=== PATIENT | female | born 1960 | race American Indian/Alaskan Native ===

== ENCOUNTER 2018-03-16 09:21 | Day surgery (SDC) | payer OTHER, MEDICARE ==
[2018-03-16] MEDS ORDERED: NACL 0.9% 1000 ML 1,000 ML ONE (10:33)
[2018-03-16] MEDS ORDERED: WATER FOR IRRIG STERILE IR ONE (11:50)
[2018-03-16] MEDS ORDERED: NACL 0.9% 1000 ML 1,000 ML IV SCH (12:00)
[2018-03-16] MEDS ORDERED: DIPRIVAN 10 MG/ML IV ONE (12:18)
--- NOTE | 2018-03-16 12:22 | Anesthesia Consultation ---
Anesthesia Consult and Med Hx Date of service: 03/16/18 - Airway Anesthetic Teeth Evaluation: Good ROM Head & Neck: Adequate Mental/Hyoid Distance: Adequate Mallampati Class: Class II Intubation Access Assessment: Probably Good - Pre-Operative Health Status ASA Pre-Surgery Classification: ASA3 Proposed Anesthetic Plan: MAC - Pulmonary Hx Asthma: Yes (INHALER USED PRN/ALBUTEROL AND CYMBACORT) SOB: Yes Hx Sleep Apnea: Yes (CPAP) - Cardiovascular System Hx Hypertension: Yes Hx Heart Murmur: Yes - Central Nervous System Hx Back Pain: Yes Hx Psychiatric Problems: Yes (depression) - Hematic Hx Anemia: Yes (RESOLVED) - Other Systems Hx Alcohol Use: No Hx Substance Use: No Hx Cancer: No Hx Obesity: Yes (BMI 37.4)
--- NOTE | 2018-03-16 12:23 | Anesthesia Day of Surgery ---
Anesthesia Day of Surgery - Day of Surgery Patient Examined: Yes Patient H&P Reviewed: Yes Patient is NPO: Yes
[2018-03-16] MEDS ORDERED: HURRICAINE ONE 20% TOPICAL SPRAY MM (12:25)
[2018-03-16] MEDS ORDERED: XYLOCAINE MPF 2% ONE (12:30)
--- NOTE | 2018-03-16 13:06 | Discharge Summary ---
Providers - Providers Attending physician: BERYL DICKINSON Primary care physician: NGHIA CRUZ Hospitalization Procedures: egd Hospital course: Pt presented for an EGD and tolerated the procedure well. She was discharged home to follow up in our office. Disposition: - TO HOME OR SELFCARE Core Measure Documentation - Palliative Care Palliative Care/ Comfort Measures: Not Applicable - Core Measures Any of the following diagnoses?: none Exam - Physical Exam Narrative exam: no change from prior - Constitutional Vitals: Temp Pulse Resp BP Pulse Ox 98.2 F 77 20 126/70 97 03/16/18 12:37 03/16/18 12:52 03/16/18 12:52 03/16/18 12:52 03/16/18 12:52 Plan Follow up with: NGHIA CRUZ MD [Primary Care Provider] - 7 Days
--- NOTE | 2018-03-16 13:06 | Operative Report ---
Operative Report Operative Report: OPERATIVE REPORT - EGD DATE 03/16/18 SURGERY: Upper endoscopy. SURGEON: Dr. Estes DYE RANGE TENDER: Quirino Wynn DO PRE OP DX: GERD POST OP DX: GERD, Small hiatal hernia TYPE OF ANESTHESIA: MAC. ESTIMATED BLOOD LOSS: None. COMPLICATIONS: None. SPECIMENS REMOVED: None. FINDINGS: 1. Small hiatal hernia. 2. Otherwise, normal esophagus, stomach and first portion of duodenum. INDICATIONS:INDICATION FOR PROCEDURE: Patient is a 58-year-old female with a long history of morbid obesity. She is planned to have a weight loss procedure and is here for preoperative planning EGD. She started to have GERD like symptoms 2 years ago. She is currently a medication to help with the symptoms. the GERD started when her weight greatly increased. PROCEDURE DETAILS: After consent was reviewed, patient was taken back to the operating room where patient was placed in the left lateral decubitus position and a bite block was placed in the mouth. After a time-out was called, MAC anesthesia was initiated. I then passed the endoscope into her oropharynx, into her esophagus, visualized the entire esophagus, which was all within normal limits. I then visualized the stomach and the first portion of the duodenum and there were no abnormalities I could clearly visualize. I then retroflexed the scope in the stomach and visualized the hiatus and I could see a small hiatal hernia. I then desufflated the stomach and removed the endoscope. Patient tolerated procedure well and was transferred to recovery room in good and stable condition.
[2018-03-16 13:15] VITALS: BP 123/70
[2018-03-16] MEDS ORDERED: HURRICAINE ONE 20% TOPICAL SPRAY MM NR (18:00)
== END 2018-03-16 09:22 | disposition home or self-care (01) ==
LOC: GIO 09:21
PROVIDERS: ATTEND Specialist
DX: K44.9 Diaphragmatic hernia without obstruction or gangrene (principal); K21.9 Gastro-esophageal reflux disease without esophagitis; I10 Essential (primary) hypertension; J45.909 Unspecified asthma, uncomplicated; G47.30 Sleep apnea, unspecified; E66.01 Morbid (severe) obesity due to excess calories; F32.9 Major depressive disorder, single episode, unspecified; Z68.37 Body mass index [BMI] 37.0-37.9, adult; Z99.89 Dependence on other enabling machines and devices
CPT/HCPCS: 43235; J2704; J7030

== ENCOUNTER 2018-03-30 08:35 | Observation (INO) | payer OTHER, MEDICARE ==
[~2018-03-30 08:35] MED LIST: ANCEF/STERILE WATER 2 GM/20 ML 2 GM/20 ML SYRINGE IV NR; APRESOLINE IV PRN; FLAGYL 500 MG/100 ML 500 MG/100 ML BAG IV NR; LOVENOX SUB-Q NR; MYLICON PO PRN; NORCO PO PRN
[2018-03-30 10:14] LABS: Bilirubin,Urine NEG (Negative); Blood,Urine NEG (Negative); Color,Urine Yellow (Yellow); Mucus,Urine FEW /HPF; Protein,Urine <15 mg/dL mg/dL (Negative); Urobilinogen,Urine < 2.0 mg/dL (<2.0)
[2018-03-30] MEDS ORDERED: NACL BACTERIOSTATIC INFILTRATI ONE (10:18)
[2018-03-30] MEDS: TRANSDERM-SCOP TD SCH (10:29)
[2018-03-30] MEDS: LACTATED RINGERS 1,000 ML IV SCH ×2 (10:45→23:38)
--- NOTE | 2018-03-30 11:22 | Anesthesia Consultation ---
Anesthesia Consult and Med Hx Date of service: 03/30/18 - Airway Anesthetic Teeth Evaluation: Good ROM Head & Neck: Adequate Mental/Hyoid Distance: Adequate Mallampati Class: Class II Intubation Access Assessment: Good - Pulmonary Exam CTA: Yes - Cardiac Exam Cardiac Exam: No Murmur - Pre-Operative Health Status ASA Pre-Surgery Classification: ASA3 Proposed Anesthetic Plan: General - Pulmonary Hx Smoking: Yes (QUIT IN 1979) Hx Asthma: Yes SOB: Yes Hx Sleep Apnea: Yes - Cardiovascular System Hx Hypertension: Yes (') Hx Heart Murmur: Yes - Central Nervous System Hx Back Pain: Yes Hx Psychiatric Problems: Yes - Hematic Hx Anemia: Yes (RESOLVED) - Other Systems Hx Alcohol Use: Yes (OCCA) Hx Substance Use: No Hx Cancer: No Hx Obesity: Yes
--- NOTE | 2018-03-30 11:23 | Anesthesia Day of Surgery ---
Anesthesia Day of Surgery - Day of Surgery Patient Examined: Yes Patient H&P Reviewed: Yes Patient is NPO: Yes
[2018-03-30] MEDS ORDERED: PEPCID PO NR (12:00)
[2018-03-30] MEDS ORDERED: VERSED IV NR (12:00)
[2018-03-30] MEDS ORDERED: SUBLIMAZE ONE (12:29)
[2018-03-30] MEDS ORDERED: ZEMURON IV ONE (12:29)
[2018-03-30] MEDS ORDERED: DIPRIVAN 10 MG/ML IV ONE (12:29)
[2018-03-30] MEDS ORDERED: BLOXIVERZ ONE (12:29)
[2018-03-30] MEDS ORDERED: QUELICIN ONE (12:29)
[2018-03-30] MEDS ORDERED: DECADRON ONE (12:29)
[2018-03-30] MEDS ORDERED: ZOFRAN ONE (12:29)
[2018-03-30] MEDS ORDERED: ROBINUL ONE (12:29)
[2018-03-30] MEDS ORDERED: VERSED ONE (12:39)
[2018-03-30] MEDS ORDERED: PEPCID IV NR (13:00)
[2018-03-30] MEDS ORDERED: XYLOCAINE 1% 20 mL ONE (13:04)
[2018-03-30] MEDS ORDERED: MARCAINE 0.5% 30 ML INFILTRATI ONE (13:05)
[2018-03-30] MEDS ORDERED: NACL 0.9% IR ONE (13:46)
[2018-03-30] MEDS ORDERED: MARCAINE 0.5% INFILTRATI ONE (13:46)
[2018-03-30] MEDS ORDERED: XYLOCAINE 1% 20 mL INFILTRATI ONE (13:46)
[2018-03-30] MEDS ORDERED: ZOFRAN IV PRN (14:55)
[2018-03-30] MEDS ORDERED: DILAUDID IV PRN (14:55)
[2018-03-30] MEDS: REGLAN IV PRN (15:00)
[2018-03-30] MEDS ORDERED: ATIVAN PO PRN (16:38)
[2018-03-30] MEDS: DILAUDID IV PRN ×2 (18:55→23:57)
[2018-03-30] MEDS: ZOFRAN IV PRN (18:55)
[2018-03-30] MEDS: TORADOL IV SCH ×4 (19:06→23:42)
[2018-03-30] MEDS: MORPHINE IV PRN (21:55)
[2018-03-30] MEDS: NEURONTIN PO SCH (21:55)
[2018-03-30] MEDS: WELLBUTRIN PO SCH (21:55)
[2018-03-30] MEDS: PULMICORT IH SCH (21:59)
[2018-03-31] MEDS: TORADOL IV SCH ×3 (02:00→12:10)
[2018-03-31] MEDS: LACTATED RINGERS 1,000 ML IV SCH ×2 (05:40→20:27)
[2018-03-31] MEDS: ZOFRAN IV PRN ×2 (05:40→13:14)
[2018-03-31] MEDS: PULMICORT IH SCH ×2 (08:13→20:27)
[2018-03-31 08:21] LABS: Basophils % (Auto) 0.4 % (0.0-1.8); Eosinophils % (Auto) 0.1 % (0.0-4.3); Hematocrit 33.4 % (30.3-42.9); Hemoglobin 11.2 gm/dl (10.1-14.3); Lymphocytes # (Auto) 1.8 K/mm3 (1.2-5.4); Lymphocytes % (Auto) 20.3 % (13.4-35.0); Mean Corpuscular HGB Conc 33 % (30-34); Mean Corpuscular Hemoglobin 29 pg (28-32); Mean Corpuscular Volume 86 fl (79-97); Monocytes # (Auto) 0.6 K/mm3 (0.0-0.8); Monocytes % (Auto) 7.3 % (0.0-7.3); Platelet Count 253 K/mm3 (140-440); Red Blood Count 3.86 M/mm3 (3.65-5.03); Red Cell Distribution Width 14.3 % (13.2-15.2)
[2018-03-31 08:30] LABS: BUN/Creatinine Ratio 16; Blood Urea Nitrogen 11 mg/dL (7-17); Calcium 8.8 mg/dL (8.4-10.2); Hemolysis Index 5
[2018-03-31] MEDS: NEURONTIN PO SCH ×3 (08:45→22:52)
[2018-03-31] MEDS: WELLBUTRIN PO SCH (13:17)
[2018-03-31] MEDS: DIOVAN PO SCH (13:32)
[2018-03-31] MEDS: LOVENOX SUB-Q SCH (13:32)
[2018-03-31] MEDS: NORVASC PO SCH (13:32)
--- NOTE | 2018-03-31 17:58 | Progress Note ---
Assessment and Plan 58 y.o. s/p lap sleeve gastrectomy with hiatal hernia repair POD 1 Nausea preventing PO intake. - continue zofran and reglan Pain control GI and DVT proph Subjective Narrative: Pt had an episode of vomiting. She continues to feel nauseas throughout the day. Her abdominal pain is somewhat improved with pain medication. She is ambulating. Objective Vital Signs - 12hr 03/31/18 03/31/18 03/31/18 07:13 08:00 08:14 Temperature 98.6 F Pulse Rate 89 Pulse Rate [ 85 85 Anterior Bilateral Upper Lobe] Respiratory 20 Rate Respiratory 19 18 Rate [Anterior Bilateral Upper Lobe] Blood Pressure 124/72 Blood Pressure [Left] O2 Sat by Pulse 97 97 Oximetry 03/31/18 03/31/18 11:19 17:11 Temperature 98.1 F 98.6 F Pulse Rate 78 82 Pulse Rate [ Anterior Bilateral Upper Lobe] Respiratory 20 20 Rate Respiratory Rate [Anterior Bilateral Upper Lobe] Blood Pressure 137/85 Blood Pressure 114/60 [Left] O2 Sat by Pulse 97 98 Oximetry - General physical appearance Narrative Exam: Gen: A+Ox3 Cardio RRR Lung: Equal rise and fall of chest abd: soft tender at incision sites. dressings minimal blood tinged. no rebound no guarding. - Labs 03/31/18 07:37 03/31/18 07:20 Diabetes panel 03/31/18 Range/Units 07:20 Sodium 146 H (137-145) mmol/L Potassium 3.8 (3.6-5.0) mmol/L Chloride 107.6 H (98-107) mmol/L Carbon Dioxide 23 (22-30) mmol/L BUN 11 (7-17) mg/dL Creatinine 0.7 (0.7-1.2) mg/dL Glucose 91 (65-100) mg/dL Calcium 8.8 (8.4-10.2) mg/dL Calcium panel 03/31/18 Range/Units 07:20 Calcium 8.8 (8.4-10.2) mg/dL Pituitary panel 03/31/18 Range/Units 07:20 Sodium 146 H (137-145) mmol/L Potassium 3.8 (3.6-5.0) mmol/L Chloride 107.6 H (98-107) mmol/L Carbon Dioxide 23 (22-30) mmol/L BUN 11 (7-17) mg/dL Creatinine 0.7 (0.7-1.2) mg/dL Glucose 91 (65-100) mg/dL Calcium 8.8 (8.4-10.2) mg/dL Adrenal panel 03/31/18 Range/Units 07:20 Sodium 146 H (137-145) mmol/L Potassium 3.8 (3.6-5.0) mmol/L Chloride 107.6 H (98-107) mmol/L Carbon Dioxide 23 (22-30) mmol/L BUN 11 (7-17) mg/dL Creatinine 0.7 (0.7-1.2) mg/dL Glucose 91 (65-100) mg/dL Calcium 8.8 (8.4-10.2) mg/dL
[2018-03-31] MEDS: DILAUDID IV PRN (20:26)
[2018-04-01] MEDS: MORPHINE IV PRN ×3 (00:16→22:00)
[2018-04-01] MEDS: REGLAN IV PRN ×2 (00:20→22:08)
[2018-04-01] MEDS: WELLBUTRIN PO SCH ×3 (03:53→21:59)
[2018-04-01] MEDS: LACTATED RINGERS 1,000 ML IV SCH (04:49)
[2018-04-01] MEDS: TYLENOL #3 PO PRN ×2 (06:26→09:51)
[2018-04-01] MEDS: ZOFRAN IV PRN ×2 (06:26→09:51)
[2018-04-01 07:27] LABS: Basophils % (Auto) 0.2 % (0.0-1.8); Eosinophils % (Auto) 0.2 % (0.0-4.3); Hemoglobin 11.7 gm/dl (10.1-14.3); Lymphocytes # (Auto) 2.5 K/mm3 (1.2-5.4); Lymphocytes % (Auto) 21.9 % (13.4-35.0); Mean Corpuscular HGB Conc 34 % (30-34); Mean Corpuscular Hemoglobin 29 pg (28-32); Mean Corpuscular Volume 86 fl (79-97); Monocytes # (Auto) 0.8 K/mm3 (0.0-0.8); Monocytes % (Auto) 6.6 % (0.0-7.3); Platelet Count 257 K/mm3 (140-440); Red Blood Count 4.09 M/mm3 (3.65-5.03); Red Cell Distribution Width 14.4 % (13.2-15.2)
[2018-04-01 07:44] LABS: BUN/Creatinine Ratio 10; Blood Urea Nitrogen 8 mg/dL (7-17); Calcium 8.7 mg/dL (8.4-10.2); Hemolysis Index 0
[2018-04-01] MEDS: PULMICORT IH SCH ×2 (08:57→21:17)
--- NOTE | 2018-04-01 09:04 | Progress Note ---
Assessment and Plan 58 y.o. s/p lap sleeve gastrectomy with hiatal hernia repair POD 2 Nausea preventing PO intake. - continue zofran and reglan Febrile with abdominal pain- blood and urine culture. Ct abd/pelvis with PO and IV contrast: r/o leak, or possible thrombosis of vein Pain control - IV meds and tylenol #3 GI and DVT proph Subjective Narrative: Pt continues to have nausea and is not tolerating liquids. She has umbilical pain and epigastric pain. The pain medication improves the pain minimally. She had a fever overnight of 101.2. She states she does not feel well. Objective Vital Signs - 12hr 03/31/18 03/31/18 04/01/18 22:00 22:56 00:10 Temperature 97.8 F 98.2 F Pulse Rate 90 78 Pulse Rate [ 89 Left Radial] Respiratory 17 17 17 Rate Respiratory 18 Rate [Abdomen] Blood Pressure 150/81 165/78 [Left] O2 Sat by Pulse 97 96 Oximetry 04/01/18 04/01/18 04/01/18 00:16 00:46 06:19 Temperature 101.2 F H Pulse Rate 100 H Pulse Rate [ Left Radial] Respiratory 17 17 17 Rate Respiratory Rate [Abdomen] Blood Pressure 143/71 [Left] O2 Sat by Pulse 96 Oximetry 04/01/18 04/01/18 06:26 07:26 Temperature Pulse Rate Pulse Rate [ Left Radial] Respiratory 17 17 Rate Respiratory Rate [Abdomen] Blood Pressure [Left] O2 Sat by Pulse Oximetry - General physical appearance well developed, well nourished, no distress - Respiratory normal expansion, normal respiratory effort - Abdomen soft, other (tender at incision sites. obese, soft, dressings- clean and dry. no rebound no guarding ) - Integumentary no rash, no growths - Neurologic normal coordination, normal sensation - Musculoskeletal normal posture - Psychiatric oriented to time, oriented to person, oriented to place - Labs 04/01/18 07:00 04/01/18 07:00 Diabetes panel 04/01/18 Range/Units 07:00 Sodium 141 (137-145) mmol/L Potassium 3.6 (3.6-5.0) mmol/L Chloride 100.1 (98-107) mmol/L Carbon Dioxide 24 (22-30) mmol/L BUN 8 (7-17) mg/dL Creatinine 0.8 (0.7-1.2) mg/dL Glucose 85 (65-100) mg/dL Calcium 8.7 (8.4-10.2) mg/dL Calcium panel 04/01/18 Range/Units 07:00 Calcium 8.7 (8.4-10.2) mg/dL Pituitary panel 04/01/18 Range/Units 07:00 Sodium 141 (137-145) mmol/L Potassium 3.6 (3.6-5.0) mmol/L Chloride 100.1 (98-107) mmol/L Carbon Dioxide 24 (22-30) mmol/L BUN 8 (7-17) mg/dL Creatinine 0.8 (0.7-1.2) mg/dL Glucose 85 (65-100) mg/dL Calcium 8.7 (8.4-10.2) mg/dL Adrenal panel 04/01/18 Range/Units 07:00 Sodium 141 (137-145) mmol/L Potassium 3.6 (3.6-5.0) mmol/L Chloride 100.1 (98-107) mmol/L Carbon Dioxide 24 (22-30) mmol/L BUN 8 (7-17) mg/dL Creatinine 0.8 (0.7-1.2) mg/dL Glucose 85 (65-100) mg/dL Calcium 8.7 (8.4-10.2) mg/dL
[2018-04-01] MEDS: DIOVAN PO SCH (09:50)
[2018-04-01] MEDS: NEURONTIN PO SCH ×3 (09:50→22:00)
[2018-04-01] MEDS: NORVASC PO SCH ×2 (09:52→09:53)
[2018-04-01] MEDS: LOVENOX SUB-Q SCH (09:54)
--- NOTE | 2018-04-01 17:18 | Cat Scan Report ---
FINAL REPORT EXAM: CT ABDOMEN PELVIS W CON HISTORY: fever nausea after sleeve gastrectomy 03/30 TECHNIQUE: Spiral CT scanning of the abdomen and pelvis after the uneventful administration of IV contrast. Multiplanar reformations. 3D image post-procesessing was performed on an independent work station. PRIORS: None. FINDINGS: Abdomen: Visualized lung bases show mild atelectatic change or scarring bilaterally and minimal left pleural fluid. Postsurgical changes in left upper quadrant around the stomach, including a few, small gas locules and some residual mesenteric fat stranding or edema. Probable postsurgical change or residual also noted in the anterior abdominal wall, including umbilical region. No radiopaque gallstones. Liver mildly enlarged and shows some decreased attenuation without focal abnormality. Spleen without significant abnormality. Pancreas without significant abnormality. Kidneys without significant abnormality. Adrenal glands without significant abnormality. Pelvis: Diverticular change in the sigmoid colon. Remainder of visualized bowel grossly unremarkable. Appendix within normal limits. Trace amount of nonspecific, free fluid in the pelvis. No discrete abscess. Abdominal aorta non-aneurysmal. Degenerative change in the thoracic spine. Postsurgical changes in lumbosacral spine. IMPRESSION: 1. Postsurgical changes compatible with status post recent gastrectomy. No discrete abscess. 2. Findings compatible with mild hepatomegaly and fatty infiltration in the liver. 3. Sigmoid colon diverticulosis.
[2018-04-01 18:29] LABS: Bilirubin,Urine NEG (Negative); Blood,Urine SM (Negative); Color,Urine Yellow (Yellow); Protein,Urine <15 mg/dL mg/dL (Negative)
[2018-04-02] MEDS: MORPHINE IV PRN ×3 (06:29→15:40)
[2018-04-02] MEDS: TRANSDERM-SCOP TD SCH (06:29)
[2018-04-02] MEDS: PULMICORT IH SCH (07:56)
[2018-04-02 08:20] LABS: Basophils # (Auto) 0.1 K/mm3 (0.0-0.1); Basophils % (Auto) 0.8 % (0.0-1.8); Eosinophils # (Auto) 0.1 K/mm3 (0.0-0.4); Eosinophils % (Auto) 0.5 % (0.0-4.3); Hematocrit 37.4 % (30.3-42.9); Hemoglobin 12.5 gm/dl (10.1-14.3); Lymphocytes # (Auto) 2.3 K/mm3 (1.2-5.4); Lymphocytes % (Auto) 18.1 % (13.4-35.0); Mean Corpuscular HGB Conc 33 % (30-34); Mean Corpuscular Hemoglobin 29 pg (28-32); Mean Corpuscular Volume 87 fl (79-97); Monocytes # (Auto) 0.7 K/mm3 (0.0-0.8); Monocytes % (Auto) 5.6 % (0.0-7.3); Platelet Count 268 K/mm3 (140-440); Red Blood Count 4.33 M/mm3 (3.65-5.03); Red Cell Distribution Width 14.3 % (13.2-15.2)
[2018-04-02 08:39] LABS: BUN/Creatinine Ratio 11; Blood Urea Nitrogen 9 mg/dL (7-17); Calcium 9.1 mg/dL (8.4-10.2); Hemolysis Index 23
[2018-04-02] MEDS: NORVASC PO SCH (10:41)
[2018-04-02] MEDS: DIOVAN PO SCH (10:41)
[2018-04-02] MEDS: LOVENOX SUB-Q SCH (10:42)
[2018-04-02] MEDS: ZOFRAN IV PRN (10:42)
[2018-04-02] MEDS: WELLBUTRIN PO SCH (10:43)
[2018-04-02] MEDS: NEURONTIN PO SCH ×2 (10:55→15:41)
--- NOTE | 2018-04-02 12:38 | Progress Note ---
Assessment and Plan 58 y.o. s/p lap sleeve gastrectomy with hiatal hernia repair POD 2=3 Nausea improved continue with. zofran and reglan Febrile with abdominal pain- blood and urine culture. Ct abd/pelvis with PO and IV contrast: r/o leak, or possible thrombosis of vein--> no leak. no acute findings. Small bubbles at sleeve typically seen during this post operative time frame. Pt has been afrebrile. Leukocytosis likely post operative . Pain control - IV meds and tylenol #3 GI and DVT proph If pt tolerating liquids and remains afebrile this afternoon she will be discharged today. Subjective Narrative: Pt is feeling better compared to yesterday. She has nausea but improved. She is tolerating liquids. Denies vomiting. +flatus. no fever overnight. +ambulation. abd pain continues but improved compared to prior Objective Vital Signs - 12hr 04/02/18 04/02/18 04/02/18 03:54 07:57 07:58 Temperature 98.4 F Pulse Rate 99 H Pulse Rate [ 95 H Anterior Bilateral Upper Lobe] Respiratory 20 Rate Respiratory 19 Rate [Anterior Bilateral Upper Lobe] Blood Pressure 111/70 O2 Sat by Pulse 100 99 Oximetry 04/02/18 04/02/18 08:39 10:42 Temperature 99.2 F Pulse Rate 102 H Pulse Rate [ Anterior Bilateral Upper Lobe] Respiratory 16 18 Rate Respiratory Rate [Anterior Bilateral Upper Lobe] Blood Pressure 131/72 O2 Sat by Pulse 97 Oximetry - General physical appearance well developed, well nourished, no distress - Respiratory normal expansion, normal respiratory effort - Abdomen soft, other (tender at incision sites. dressings cdi. no rebound no guarding soft ) - Integumentary no rash, no growths - Neurologic normal coordination, normal sensation - Musculoskeletal normal gait, normal posture - Psychiatric oriented to time, oriented to person, oriented to place, speech is normal - Additional Exam LE: no edema cyanosis or clubbing - Labs 04/02/18 07:58 04/02/18 07:58 Diabetes panel 04/02/18 Range/Units 07:58 Sodium 139 (137-145) mmol/L Potassium 3.8 (3.6-5.0) mmol/L Chloride 98.3 (98-107) mmol/L Carbon Dioxide 20 L (22-30) mmol/L BUN 9 (7-17) mg/dL Creatinine 0.8 (0.7-1.2) mg/dL Glucose 63 L (65-100) mg/dL Calcium 9.1 (8.4-10.2) mg/dL Calcium panel 04/02/18 Range/Units 07:58 Calcium 9.1 (8.4-10.2) mg/dL Pituitary panel 04/02/18 Range/Units 07:58 Sodium 139 (137-145) mmol/L Potassium 3.8 (3.6-5.0) mmol/L Chloride 98.3 (98-107) mmol/L Carbon Dioxide 20 L (22-30) mmol/L BUN 9 (7-17) mg/dL Creatinine 0.8 (0.7-1.2) mg/dL Glucose 63 L (65-100) mg/dL Calcium 9.1 (8.4-10.2) mg/dL Adrenal panel 04/02/18 Range/Units 07:58 Sodium 139 (137-145) mmol/L Potassium 3.8 (3.6-5.0) mmol/L Chloride 98.3 (98-107) mmol/L Carbon Dioxide 20 L (22-30) mmol/L BUN 9 (7-17) mg/dL Creatinine 0.8 (0.7-1.2) mg/dL Glucose 63 L (65-100) mg/dL Calcium 9.1 (8.4-10.2) mg/dL
[2018-04-02] MEDS: REGLAN IV PRN (15:39)
--- NOTE | 2018-04-02 17:38 | Discharge Summary ---
Providers - Providers Date of Admission: 03/30/18 15:47 Attending physician: BERYL ESTES Primary care physician: NGHIA CRUZ Hospitalization Procedures: laparoscopic sleeve gastrectomy with hiatal hernia repair Hospital course: 58 y.o. F admitted to the hospital for bariatric surgery. She underwent a lap sleeve gastrectomy with hiatal hernia repair and tolerated the procedure well. On pod 1 she had severe nausea that prevented her from being discharged. On POD 2 her nausea improved but she had a fever. Blood and urine cultures were sent. A ct abd/pelvis did not show a leak or other acute issues. On POD 3 she felt much better. Her nausea was controllable with medication and she was tolerating liquids. She denied any vomiting or fever on day of discharge. She was afebrile for 12-24hrs prior to discharge. She ambulated well. She understands to keep using the IS as an oupt. Source of fever likely actelectasis as depicted on the CT . Disposition: DC-01 TO HOME OR SELFCARE Core Measure Documentation - Palliative Care Palliative Care/ Comfort Measures: Not Applicable - Core Measures Any of the following diagnoses?: none Exam - Physical Exam Narrative exam: gen: A+Ox 3 Cardio RRR Lungs Shallow breath, equal bl abd: soft, obese, tender at incision sites no rebound no guarding. ext: no c/c/e - Constitutional Vitals: Temp Pulse Resp BP Pulse Ox 98.3 F 103 H 18 123/79 97 04/02/18 12:34 04/02/18 12:34 04/02/18 15:40 04/02/18 12:34 04/02/18 12:34 Plan Activity: other (no lifting >15lbs for 6 weeks ) Diet: clear liquids Wound: keep clean and dry Additional Instructions: Follow up with Dr. Estes in the office. Goal fluid intake is 64 oz. Goal protein intake is 60g. Walk often. Continue to use incentive spirometer at home. use tyelnol # 3 for pain. If you need additional pain meds please contact your primary care doctor. If your abdominal pain is severe and does not improve call Dr. Estes's office. Follow up with: NGHIA CRUZ MD [Primary Care Provider] - 7 Days
[2018-04-02 18:27] VITALS: BP 153/77
== END 2018-04-02 20:25 | disposition home or self-care (01) ==
LOC: OR 08:35 → INTOOBSV 15:47 → 3B-SURG 15:47
PROVIDERS: ADMIT Specialist; ATTEND Specialist
DX: E66.01 Morbid (severe) obesity due to excess calories (principal); K44.9 Diaphragmatic hernia without obstruction or gangrene; J45.30 Mild persistent asthma, uncomplicated; K21.9 Gastro-esophageal reflux disease without esophagitis; I10 Essential (primary) hypertension; G47.33 Obstructive sleep apnea (adult) (pediatric); Z68.32 Body mass index [BMI] 32.0-32.9, adult
CPT/HCPCS: 36415; 43281; 43775; 74177; 80048; 81001; 83735; 85025; 87040; 87086; 88307; 94640; 94760; 96372; 96374; 96375; 96376; G0378; J0330; J0360; J0690; J1100; J1170; J1650; J2250; J2270; J2405; J2704; J2710; J2765; J3010; J7120; Q9967

== ENCOUNTER 2018-04-07 08:37 | Inpatient (IN) | payer OTHER, MEDICARE ==
[2018-04-07] MEDS ORDERED: NACL 0.9% 500 ML 500 ML IV ONE (09:17)
[2018-04-07 10:13] LABS: Hematocrit 38.8 % (30.3-42.9); Hemoglobin 13.1 gm/dl (10.1-14.3); Mean Corpuscular HGB Conc 34 % (30-34); Mean Corpuscular Hemoglobin 28 pg (28-32); Mean Corpuscular Volume 84 fl (79-97); Red Blood Count 4.61 M/mm3 (3.65-5.03); Red Cell Distribution Width 14.1 % (13.2-15.2)
--- NOTE | 2018-04-07 10:13 | XRay Report ---
PORTABLE CHEST INDICATION: Chest, abdomen pain. Possible sepsis. Gastric sleeve 03/30/2018 COMPARISON: None similar. FINDINGS: Portable, frontal chest radiograph demonstrates mild exaggerated cardiomediastinal silhouette. Slight patient rotation to the right. Slight bibasilar atelectasis. Otherwise clear lungs. Left sided battery pack with a single stimulator lead extending to the left lower neck. Few radiopaque dental fillings. EKG leads. Few bony degenerative changes. CONCLUSION: No significant acute chest process, as described. Thank you for the opportunity to participate in this patient's care.
[2018-04-07 10:14] LABS: Platelet Count 394 K/mm3 (140-440)
[2018-04-07 10:21] LABS: INR 0.98 (0.87-1.13)
[2018-04-07 10:38] LABS: Alanine Aminotransferase 29 units/L (7-56); Albumin 3.6 g/dL (3.9-5); BUN/Creatinine Ratio 14; Blood Urea Nitrogen 13 mg/dL (7-17); Calcium 8.8 mg/dL (8.4-10.2); Hemolysis Index 14
[2018-04-07] MEDS ORDERED: REGLAN IV ONE (10:45)
[2018-04-07] MEDS ORDERED: MORPHINE IV ONE (10:45)
[2018-04-07] MEDS ORDERED: VANCOMYCIN/NS 1 GM/250 ML 1 GM/250 ML BAG IV ONE (10:48)
[2018-04-07] MEDS ORDERED: NACL 0.9% 1000 ML 1,000 ML IV ONE (10:49)
[2018-04-07 10:57] LABS: Band Neutrophils # (Manual) 1.1 K/mm3; Basophils % (Manual) 0 % (0.0-1.8); Eosinophils % (Manual) 0 % (0.0-4.3); Total Cells Counted 100
[2018-04-07 10:58] LABS: Platelet Estimate Cons; RBC Morphology Normal
[2018-04-07] MEDS ORDERED: VANCOMYCIN PHARMACY TO DOSE IV SCH (11:00)
--- NOTE | 2018-04-07 11:36 | Emergency Department Report ---
ED Abdominal Pain HPI - General Chief Complaint: Abdominal Pain Stated Complaint: FEVER, UPSET STOMACH, AND WEAKNESS Time Seen by Provider: 04/07/18 10:24 Source: patient Mode of arrival: Ambulatory Limitations: No Limitations - History of Present Illness MD Complaint: abdominal pain -: days(s) (1) Location: diffuse Radiation: chest (left chest) Migration to: no migration Severity: mild Severity scale (0 -10): 3 Quality: aching Consistency: intermittent Improves With: nothing Worsens With: eating (reports that she experienced the pain after eating a piece of cheese yesterday at approximately 1800. Reports recent post-op gastric band by Dr. Wynn surgery) Context: other (first time eating solid foods. Reports after surgery for the gastric band she did develop fever and was treated in the hospital for fever post-op. Reports that she had a fever yesterday Tmax approximately 102F. Reports that she tolerated broth and full liquid diet before discharge from the hospital. ) Associated Symptoms: nausea, vomiting, fever. denies: constipation, dysuria, hematemesis, hematochezia, melena, hematuria, syncope - Related Data Home Medications Medication Instructions Recorded Confirmed Last Taken Budesonide/Formoterol Fumarate 2 puff INHALATION BID 03/26/18 04/07/18 03/26/18 [Symbicort 160-4.5 Mcg Inhaler] Bupropion HCl [Wellbutrin XL] 300 mg PO QAM 03/26/18 04/07/18 03/28/18 Gabapentin [Neurontin] 400 mg PO TID 03/26/18 04/07/18 03/29/18 LORazepam [Ativan] 1 mg PO BID PRN 03/26/18 04/07/18 03/29/18 Linaclotide [Linzess] 145 mcg PO QAM 03/26/18 04/07/18 03/29/18 Dexlansoprazole (Cecilia) [Dexilant 60 mg PO QAM 03/30/18 04/07/18 03/28/18 (Cecilia)] HYDROcodone/APAP 7.5-325 [Ellery 1 each PO Q12H PRN 04/07/18 04/07/18 Unknown 7.5/325] Allergies Allergy/AdvReac Type Severity Reaction Status Date / Time No Known Allergies Allergy Unverified 03/16/18 11:09 ED Review of Systems ROS: Stated complaint: FEVER, UPSET STOMACH, AND WEAKNESS Other details as noted in HPI Other: GENERAL: fever SKIN: No changes in skin or hair, no itching, no rashes, no jaundice HEAD: No trauma, headache, or visual changes EYES: No blurriness, tearing, itching, acute visual loss, conjunctival discoloration, or scleral icterus EARS: No hearing loss, tinnitus, vertigo, or earache NOSE: No rhinorrhea, stuffiness, sneezing, itching, or epistaxis MOUTH: No bleeding gums, hoarseness, sore throat, or swelling CARDIAC: chest pain that traveled up by her left shoulder RESPIRATORY: shortness of breath GI: nausea, vomiting, abdominal pain URINARY: No frequency, urgency, polyuria, dysuria, hematuria, or incontinence MUSCULOSKELETAL: No muscle weakness, joint stiffness, decrease in range of motion, redness, swelling NEUROLOGIC: No loss of sensation, numbness, tingling, tremors, weakness, paralysis, seizures HEMATOLOGIC: No anemia, easy bruising, bleeding, petechiae, or purpura ENDOCRINE: No hot or cold intolerance, sweating, polyuria, polydipsia or, polyphagia no thyroid problems ED Past Medical Hx - Past Medical History Previous Medical History?: Yes Hx Hypertension: Yes Hx GERD: Yes Hx Arthritis: Yes (KNEES AND BACK) Hx Asthma: Yes (INHALER USED PRN/ALBUTEROL AND CYMBACORT) Hx HIV: No - Surgical History Past Surgical History?: Yes Additional Surgical History: Gastric sleeve, Hysterectomy, left and right knee replacement. right hand carpel tulnnel release - Social History Smoking Status: Former Smoker Substance Use Type: Alcohol, Prescribed - Medications Home Medications: Home Medications Medication Instructions Recorded Confirmed Last Taken Type Budesonide/Formoterol Fumarate 2 puff INHALATION BID 03/26/18 04/07/18 03/26/18 History [Symbicort 160-4.5 Mcg Inhaler] Bupropion HCl [Wellbutrin XL] 300 mg PO QAM 03/26/18 04/07/18 03/28/18 History Gabapentin [Neurontin] 400 mg PO TID 03/26/18 04/07/18 03/29/18 History LORazepam [Ativan] 1 mg PO BID PRN 03/26/18 04/07/18 03/29/18 History Linaclotide [Linzess] 145 mcg PO QAM 03/26/18 04/07/18 03/29/18 History Dexlansoprazole (Nf) [Dexilant 60 mg PO QAM 03/30/18 04/07/18 03/28/18 History (Cecilia)] HYDROcodone/APAP 7.5-325 [Ellery 1 each PO Q12H PRN 04/07/18 04/07/18 Unknown History 7.5/325] ED Physical Exam - General Limitations: No Limitations - Other Other exam information: GENERAL: Patient in no acute distress HEAD: Normocephalic, atraumatic EYES: PERRLA, EOM intact, no scleral icterus, visual montgomery and acuity wnl NOSE: No tenderness, discharge, sinus tenderness MOUTH: No erythema, bleeding, exudate HEART: tachycardia LUNGS: bilateral breath sounds. No wheezing, rales, rhonchi ABDOMEN: soft, mild tenderness RUQ and epigastric region MUSCULOSKELETAL: Normal joint range of motion, no redness, no swelling, no tenderness NEUROLOGIC: GCS 15, Alert and Oriented x3, Cranial nerves intact, normal sensation, normal strength, normal gait, no cerebellar deficit SKIN: Skin is warm and dry, no rashes, surgical incisions healing well ED Course Vital Signs 04/07/18 04/07/18 04/07/18 09:13 09:26 09:30 Temperature 98.4 F Pulse Rate 120 H 120 H 111 H Respiratory 22 29 H Rate Blood Pressure 97/60 106/65 O2 Sat by Pulse 95 92 94 Oximetry 04/07/18 04/07/18 04/07/18 09:46 10:00 10:16 Temperature Pulse Rate 106 H 107 H 109 H Respiratory 29 H 29 H 30 H Rate Blood Pressure 114/57 114/57 114/57 O2 Sat by Pulse 94 91 93 Oximetry 04/07/18 04/07/18 04/07/18 10:41 10:42 10:46 Temperature Pulse Rate 109 H 106 H Respiratory 29 H 18 29 H Rate Blood Pressure 114/57 114/57 O2 Sat by Pulse 94 94 Oximetry 04/07/18 04/07/18 04/07/18 11:00 11:16 11:30 Temperature Pulse Rate 106 H 106 H 106 H Respiratory 32 H 27 H 29 H Rate Blood Pressure 120/60 120/60 112/67 O2 Sat by Pulse 92 93 91 Oximetry 04/07/18 04/07/18 04/07/18 11:46 12:00 12:15 Temperature Pulse Rate 105 H 105 H 106 H Respiratory 28 H 34 H 30 H Rate Blood Pressure 112/67 112/67 112/67 O2 Sat by Pulse 94 95 96 Oximetry 04/07/18 04/07/18 04/07/18 12:30 12:46 13:00 Temperature Pulse Rate 106 H 109 H 107 H Respiratory 30 H 29 H 31 H Rate Blood Pressure 112/61 112/61 128/62 O2 Sat by Pulse 95 95 96 Oximetry 04/07/18 04/07/18 04/07/18 13:16 14:54 15:00 Temperature Pulse Rate 111 H 117 H 115 H Respiratory 28 H 19 32 H Rate Blood Pressure 128/62 137/68 149/71 O2 Sat by Pulse 95 94 94 Oximetry 04/07/18 04/07/18 04/07/18 15:16 15:30 15:46 Temperature Pulse Rate 120 H 121 H 121 H Respiratory 40 H 33 H 29 H Rate Blood Pressure 149/71 161/71 161/71 O2 Sat by Pulse 95 96 94 Oximetry ED Medical Decision Making - Lab Data Result diagrams: 04/07/18 09:41 04/07/18 09:41 Laboratory Results - last 24 hr 04/07/18 04/07/18 04/07/18 09:41 09:41 09:41 WBC 21.3 H RBC 4.61 Hgb 13.1 Hct 38.8 MCV 84 MCH 28 MCHC 34 RDW 14.1 Plt Count 394 Add Manual Diff Complete Total Counted 100 Seg Neuts % (Manual) 85.0 H Band Neutrophils % 5.0 Lymphocytes % (Manual) 4.0 L Reactive Lymphs % (Man) 0 Monocytes % (Manual) 5.0 Eosinophils % (Manual) 0 Basophils % (Manual) 0 Metamyelocytes % 1.0 Myelocytes % 0 Promyelocytes % 0 Blast Cells % 0 Nucleated RBC % Not Reportable Seg Neutrophils # Man 18.1 H Band Neutrophils # 1.1 Lymphocytes # (Manual) 0.9 L Abs React Lymphs (Man) 0.0 Monocytes # (Manual) 1.1 H Eosinophils # (Manual) 0.0 Basophils # (Manual) 0.0 Metamyelocytes # 0.2 Myelocytes # 0.0 Promyelocytes # 0.0 Blast Cells # 0.0 WBC Morphology Not Reportable Hypersegmented Neuts Not Reportable Hyposegmented Neuts Not Reportable Hypogranular Neuts Not Reportable Smudge Cells Not Reportable Toxic Granulation Not Reportable Toxic Vacuolation Not Reportable Dohle Bodies Not Reportable Pelger-Huet Anomaly Not Reportable Narendra Rods Not Reportable Platelet Estimate Cons Clumped Platelets Not Reportable Plt Clumps, EDTA Not Reportable Large Platelets Not Reportable Giant Platelets Not Reportable Platelet Satelliting Not Reportable Plt Morphology Comment Not Reportable RBC Morphology Normal Dimorphic RBCs Not Reportable Polychromasia Not Reportable Hypochromasia Not Reportable Poikilocytosis Not Reportable Anisocytosis Not Reportable Microcytosis Not Reportable Macrocytosis Not Reportable Spherocytes Not Reportable Pappenheimer Bodies Not Reportable Sickle Cells Not Reportable Target Cells Not Reportable Tear Drop Cells Not Reportable Ovalocytes Not Reportable Helmet Cells Not Reportable Queen-[place] Bodies Not Reportable Bryan Rings Not Reportable [place]kin[place] Cells Not Reportable Bite Cells Not Reportable Crenated Cell Not Reportable Elliptocytes Not Reportable Acanthocytes (Spur) Not Reportable Rouleaux Not Reportable Hemoglobin C Crystals Not Reportable Schistocytes Not Reportable Malaria parasites Not Reportable Giorgio Bodies Not Reportable Hem Pathologist Commnt No PT 13.5 INR 0.98 APTT VBG pH Sodium 138 Potassium 3.3 L Chloride 95.1 L Carbon Dioxide 21 L Anion Gap 25 BUN 13 Creatinine 0.9 Estimated GFR > 60 BUN/Creatinine Ratio 14 Glucose 113 H Lactic Acid Calcium 8.8 Total Bilirubin 0.40 AST 20 ALT 29 Alkaline Phosphatase 114 Troponin T Total Protein 7.6 Albumin 3.6 L Albumin/Globulin Ratio 0.9 04/07/18 04/07/18 04/07/18 09:41 09:41 09:41 WBC RBC Hgb Hct MCV MCH MCHC RDW Plt Count Add Manual Diff Total Counted Seg Neuts % (Manual) Band Neutrophils % Lymphocytes % (Manual) Reactive Lymphs % (Man) Monocytes % (Manual) Eosinophils % (Manual) Basophils % (Manual) Metamyelocytes % Myelocytes % Promyelocytes % Blast Cells % Nucleated RBC % Seg Neutrophils # Man Band Neutrophils # Lymphocytes # (Manual) Abs React Lymphs (Man) Monocytes # (Manual) Eosinophils # (Manual) Basophils # (Manual) Metamyelocytes # Myelocytes # Promyelocytes # Blast Cells # WBC Morphology Hypersegmented Neuts Hyposegmented Neuts Hypogranular Neuts Smudge Cells Toxic Granulation Toxic Vacuolation Dohle Bodies Pelger-Huet Anomaly Narendra Rods Platelet Estimate Clumped Platelets Plt Clumps, EDTA Large Platelets Giant Platelets Platelet Satelliting Plt Morphology Comment RBC Morphology Dimorphic RBCs Polychromasia Hypochromasia Poikilocytosis Anisocytosis Microcytosis Macrocytosis Spherocytes Pappenheimer Bodies Sickle Cells Target Cells Tear Drop Cells Ovalocytes Helmet Cells Queen-[place] Bodies Bryan Rings Willian Cells Bite Cells Crenated Cell Elliptocytes Acanthocytes (Spur) Rouleaux Hemoglobin C Crystals Schistocytes Malaria parasites Giorgio Bodies Hem Pathologist Commnt PT INR APTT VBG pH 7.413 Sodium Potassium Chloride Carbon Dioxide Anion Gap BUN Creatinine Estimated GFR BUN/Creatinine Ratio Glucose Lactic Acid 1.60 Calcium Total Bilirubin AST ALT Alkaline Phosphatase Troponin T < 0.010 Total Protein Albumin Albumin/Globulin Ratio 04/07/18 04/07/18 04/07/18 13:18 14:40 16:28 WBC RBC Hgb Hct MCV MCH MCHC RDW Plt Count Add Manual Diff Total Counted Seg Neuts % (Manual) Band Neutrophils % Lymphocytes % (Manual) Reactive Lymphs % (Man) Monocytes % (Manual) Eosinophils % (Manual) Basophils % (Manual) Metamyelocytes % Myelocytes % Promyelocytes % Blast Cells % Nucleated RBC % Seg Neutrophils # Man Band Neutrophils # Lymphocytes # (Manual) Abs React Lymphs (Man) Monocytes # (Manual) Eosinophils # (Manual) Basophils # (Manual) Metamyelocytes # Myelocytes # Promyelocytes # Blast Cells # WBC Morphology Hypersegmented Neuts Hyposegmented Neuts Hypogranular Neuts Smudge Cells Toxic Granulation Toxic Vacuolation Dohle Bodies Pelger-Huet Anomaly Narendra Rods Platelet Estimate Clumped Platelets Plt Clumps, EDTA Large Platelets Giant Platelets Platelet Satelliting Plt Morphology Comment RBC Morphology Dimorphic RBCs Polychromasia Hypochromasia Poikilocytosis Anisocytosis Microcytosis Macrocytosis Spherocytes Pappenheimer Bodies Sickle Cells Target Cells Tear Drop Cells Ovalocytes Helmet Cells Queen-[place] Bodies Bryan Rings Willian Cells Bite Cells Crenated Cell Elliptocytes Acanthocytes (Spur) Rouleaux Hemoglobin C Crystals Schistocytes Malaria parasites Giorgio Bodies Hem Pathologist Commnt PT INR APTT 29.0 VBG pH Sodium Potassium Chloride Carbon Dioxide Anion Gap BUN Creatinine Estimated GFR BUN/Creatinine Ratio Glucose Lactic Acid 2.00 0.70 Calcium Total Bilirubin AST ALT Alkaline Phosphatase Troponin T Total Protein Albumin Albumin/Globulin Ratio - EKG Data Interpretation: no acute changes - Radiology Data Radiology results: report reviewed - Medical Decision Making Patient comfortable updated with results. At 1743 Dr. Wynn surgery updated. Request admit patient for Dr. Yani Estes. Request patient remain in the ER and plan on taking patient to surgery from the ER. Critical care attestation.: If time is entered above; I have spent that time in minutes in the direct care of this critically ill patient, excluding procedure time. ED Disposition Clinical Impression: Pneumoperitoneum Sepsis Qualifiers: Sepsis type: sepsis due to unspecified organism Qualified Code(s): A41.9 - Sepsis, unspecified organism Disposition: OP ADMIT IP TO THIS HOSP Is pt being admited?: Yes Condition: Stable Instructions: Abdominal Pain (ED) Referrals: PRIMARY CARE, [Primary Care Provider] - 3-5 Days Time of Disposition: 17:44
[2018-04-07] MEDS ORDERED: MAXIPIME/NS 1 GM/100 ML 1 GM/100 ML BAG IV ONE (11:45)
--- NOTE | 2018-04-07 15:44 | Cat Scan Report ---
CTA CHEST CT ABDOMEN AND PELVIS WITH CONTRAST INDICATION: Chest and abdomen pain. Status post gastric sleeve surgery on 03/30/2018. COMPARISON: 04/01/[address] FINDINGS: Chest CTA as also abdomen and pelvis CT performed following intravenous administration of 100 cc of Omnipaque 300. Axial, sagittal, coronal and MIP reconstructions obtained. CHEST: New small left pleural effusion measuring 1 cm AP, axial series 2, image 75. Mild increased bibasilar atelectasis also noted. Low lung volumes. Right hemidiaphragm again approximately 3 cm higher than the left. Normal heart size. No significant pericardial or right pleural effusion. Though partly limited due to artifact, opacified great vessels grossly within normal limits. Patent central airway. Normal thyroid. Nonspecific distal esophageal wall prominence/thickening, not excluded for gastroesophageal reflux and/or hiatal hernia, amongst others. ABDOMEN: Right hepatic lobe approximately 20 cm in midclavicular length. Increased pneumoperitoneum and multiple foci of extraluminal air noted in the upper abdominal mesentery as on axial series 2, images 145-200. Stable to slight increased stranding in the gastric surgical bed with stable postsurgical appearance. Few lymph nodes in this region measure up to 1.1 cm as on axial image 153, series 2. Small 2.3 x 1 cm fluid posteromedial to the spleen also appears to demonstrate early loculation as on axial image 154, series 2. Minimal perisplenic fluid and some air laterally also now seen. Liver and spleen appear otherwise homogenous. Patent veins. Gallbladder distended to approximately 8-9 cm. Pancreas, adrenals, aorta, IVC and kidneys within normal limits. Nonopacified small bowel nonobstructive. Cecum containing fluid/debris measures approximately 6.7 cm caliber and lies across the upper pelvis anteriorly as on axial image 247, series 2. Ascending colon noted coursing slightly medially with few fluid containing small bowel loops lateral to it as on axial image 210. Mild colonic stool. Numerous descending colon and sigmoid diverticuli. A surgical clip-like density at the umbilicus is also new with increased 4 x 2 cm subjacent anterior subcutaneous fluid density as on axial image 231, series 2, amongst others. Interval resorption/resolution of some anterior abdominal wall subcutaneous air. PELVIS: Small pelvic free fluid measuring 32 HU, axial image 260, series 2 with slight peripheral enhancement/walling off. Uterus surgically absent with few small pelvic phleboliths. Decompressed rectosigmoid. Unremarkable urinary bladder. No size significant adenopathy. Extensive lumbosacral anterior and posterior bony fusion hardware creates streak artifact, limiting assessment. Approximately 7 mm spondylolisthesis about the lumbosacral junction may be noted as on sagittal image 117. Mild additional multilevel imaged spinal degenerative changes as spurring. A 0.9 cm lower lumbar superior endplate Schmorl's node also incidentally seen. CONCLUSION: 1. Increased pneumoperitoneum with new minimal tiny perisplenic and small pelvic ascites, new small left pleural effusion with mild increased atelectasis and slight increased left upper quadrant stranding worrisome for postsurgical leak/dehiscence in the given setting. Please correlate. 2. Various other findings, as described. Thank you for the opportunity to participate in this patient's care.
--- NOTE | 2018-04-07 17:48 | History and Physical Report ---
History of Present Illness Chief complaint: abdominal pain History of present illness: 58 y.o. F s/p lap sleeve gastrectomy with hiatal hernia repair and partial fundoplication 03/30/18, presented to the ER c/o abdominal pain and nausea x 2 days. she had been doing well in her post operative course until she felt nauseas a couple of days ago. Last night she started to have LUQ pain. The pain worsened overnight and was 10/10 sharp pain this am. She had a fever of 102 per pt at home. She felt nauseas, +vomiting. she denies sob, chest pain. Nothing alleviated her pain. She called the office and was told to go to the ER. In the ER she was noted to have a WBC of >20, tachycardiac as well. A CT abd/ pelvis was performed= free air. Past History Past Medical History: hypertension, other (sleep apnea, morbid obesity ) Past Surgical History: Other (rigth hand ganglion cyst removal, hysterectomy, Left knee replacement, right knee replacement, back surgery, lap sleeve gastrectomy with hiatal hernia repair and parital fundoplication) Social history: other (former smoker- last 1989) Family history: no significant family history Medications and Allergies Allergies Allergy/AdvReac Type Severity Reaction Status Date / Time No Known Allergies Allergy Unverified 03/16/18 11:09 Home Medications Medication Instructions Recorded Confirmed Last Taken Type Budesonide/Formoterol Fumarate 2 puff INHALATION BID 03/26/18 04/07/18 03/26/18 History [Symbicort 160-4.5 Mcg Inhaler] Bupropion HCl [Wellbutrin XL] 300 mg PO QAM 03/26/18 04/07/18 03/28/18 History Gabapentin [Neurontin] 400 mg PO TID 03/26/18 04/07/18 03/29/18 History LORazepam [Ativan] 1 mg PO BID PRN 03/26/18 04/07/18 03/29/18 History Linaclotide [Linzess] 145 mcg PO QAM 03/26/18 04/07/18 03/29/18 History Dexlansoprazole (Nf) [Dexilant 60 mg PO QAM 03/30/18 04/07/18 03/28/18 History (Nf)] HYDROcodone/APAP 7.5-325 [Newberry 1 each PO Q12H PRN 04/07/18 04/07/18 Unknown History 7.5/325] Active Meds: Active Medications Vancomycin HCl (Vancomycin Pharmacy To Dose) 1 each IV PKCONSULT ON LICENSE OF [facility] Review of Systems All systems: negative - Constitutional fever, weakness, malaise, lethargy, poor appetite - EENT Ears, nose, mouth and throat: no decreased hearing, no nose pain, no nasal congestion - Cardiovascular no chest pain, no orthopnea, no palpitations - Respiratory no cough, no cough with sputum, no hemoptysis - Gastrointestinal abdominal pain, other (see hpi) - Genitourinary Genitourinary: no dysmenorrhea, no flank pain, no dysuria Menstruation: no currently menstrual, no ammenorrhea - Muskuloskeletal no neck stiffness, no neck pain, no shooting arm pain - Integumentary no rash, no pruritis, no redness, no sores - Neurological no head injury, no paralysis, no weakness, no numbness - Psychiatric no anxiety, no memory loss, no change in sleep habits, no sleep disturbances - Endocrine no cold intolerance, no polyphagia, no excessive thirst, no polydipsia - Hematologic/Lymphatic no easy bruising, no easy bleeding - Allergic/Immunologic no urticaria, no allergic rhinitis, no wheezing Exam Vital Signs Temp Pulse Resp BP Pulse Ox 98.4 F 120 H 22 97/60 95 04/07/18 09:13 04/07/18 09:13 04/07/18 09:13 04/07/18 09:13 04/07/18 09:13 - General physical appearance Positive: well developed, well nourished, moderate distress - Eyes Positive: PERRL - Neck Positive: no masses - Respiratory Positive: normal expansion, normal respiratory effort - Cardiovascular Rhythm: other (tachy) - Extremities Extremities: no ischemia, No edema - Abdomen Abdomen: Present: other (tender diffuse, voluntary guarding. umbilicus-green drainage. distended, +rebound. ) - Integumentary no rash - Neurologic Neurologic: alert and oriented to time, place and person, motor strength and sensation are grossly intact - Musculoskeletal normal posture - Psychiatric Psychiatric: appropriate mood/affect, intact judgment & insight, memory intact Results - Labs 04/07/18 09:41 04/07/18 09:41 Abnormal lab results 04/07/18 04/07/18 Range/Units 09:41 09:41 WBC 21.3 H (4.5-11.0) K/mm3 Seg Neuts % (Manual) 85.0 H (40.0-70.0) % Lymphocytes % (Manual) 4.0 L (13.4-35.0) % Seg Neutrophils # Man 18.1 H (1.8-7.7) K/mm3 Lymphocytes # (Manual) 0.9 L (1.2-5.4) K/mm3 Monocytes # (Manual) 1.1 H (0.0-0.8) K/mm3 Potassium 3.3 L (3.6-5.0) mmol/L Chloride 95.1 L (98-107) mmol/L Carbon Dioxide 21 L (22-30) mmol/L Glucose 113 H (65-100) mg/dL Albumin 3.6 L (3.9-5) g/dL Diabetes panel 04/07/18 Range/Units 09:41 Sodium 138 (137-145) mmol/L Potassium 3.3 L (3.6-5.0) mmol/L Chloride 95.1 L (98-107) mmol/L Carbon Dioxide 21 L (22-30) mmol/L BUN 13 (7-17) mg/dL Creatinine 0.9 (0.7-1.2) mg/dL Glucose 113 H (65-100) mg/dL Calcium 8.8 (8.4-10.2) mg/dL AST 20 (5-40) units/L ALT 29 (7-56) units/L Alkaline Phosphatase 114 (35-129) units/L Total Protein 7.6 (6.3-8.2) g/dL Albumin 3.6 L (3.9-5) g/dL Calcium panel 04/07/18 Range/Units 09:41 Calcium 8.8 (8.4-10.2) mg/dL Albumin 3.6 L (3.9-5) g/dL Pituitary panel 04/07/18 Range/Units 09:41 Sodium 138 (137-145) mmol/L Potassium 3.3 L (3.6-5.0) mmol/L Chloride 95.1 L (98-107) mmol/L Carbon Dioxide 21 L (22-30) mmol/L BUN 13 (7-17) mg/dL Creatinine 0.9 (0.7-1.2) mg/dL Glucose 113 H (65-100) mg/dL Calcium 8.8 (8.4-10.2) mg/dL Adrenal panel 04/07/18 Range/Units 09:41 Sodium 138 (137-145) mmol/L Potassium 3.3 L (3.6-5.0) mmol/L Chloride 95.1 L (98-107) mmol/L Carbon Dioxide 21 L (22-30) mmol/L BUN 13 (7-17) mg/dL Creatinine 0.9 (0.7-1.2) mg/dL Glucose 113 H (65-100) mg/dL Calcium 8.8 (8.4-10.2) mg/dL Total Bilirubin 0.40 (0.1-1.2) mg/dL AST 20 (5-40) units/L ALT 29 (7-56) units/L Alkaline Phosphatase 114 (35-129) units/L Total Protein 7.6 (6.3-8.2) g/dL Albumin 3.6 L (3.9-5) g/dL Assessment and Plan 58 y.o. f s/p lap sleeve gastrectomy with hiatal hernia repair and partial fundoplication 03/30, presents to ER with abdominal pain 1. Sepsis likely due to abdominal source -CT abd/pelvis: free air noted. Pt will be taken to the or for a dx lap, and repair of perforated viscous. She understands the procedure and the risks/ benefits including infection, bleeding, damage to surrounding structures and need for further procedures. She wishes to proceed with the procedure. Vanco given in the ER- outside of OR time redose with zosyn IV, npo hx of HTN: hold meds for now GI proph: PPI start dvt proph POD 1 Monitor I and Os, Pain and nausea control
[2018-04-07] MEDS ORDERED: MORPHINE IV PRN ×2 (17:51→23:16)
[2018-04-07] MEDS ORDERED: SODIUM CHLORIDE FLUSH SYRINGE 10 ML IV PRN (17:51)
--- NOTE | 2018-04-07 18:16 | Anesthesia Day of Surgery ---
Anesthesia Day of Surgery - Day of Surgery Patient Examined: Yes Patient H&P Reviewed: Yes Patient is NPO: Yes
--- NOTE | 2018-04-07 18:17 | Anesthesia Consultation ---
Anesthesia Consult and Med Hx Date of service: 04/07/18 - Airway Anesthetic Teeth Evaluation: Good ROM Head & Neck: Adequate Mental/Hyoid Distance: Adequate Mallampati Class: Class II Intubation Access Assessment: Probably Good - Pulmonary Exam CTA: Yes - Cardiac Exam Cardiac Exam: RRR - Pre-Operative Health Status ASA Pre-Surgery Classification: ASA3, Emergency Proposed Anesthetic Plan: General (HTN, GERD, NPO > 6hrs) - Pulmonary Hx Asthma: Yes (INHALER USED PRN/ALBUTEROL AND CYMBACORT) SOB: Yes Hx Sleep Apnea: Yes (CPAP) - Cardiovascular System Hx Hypertension: Yes Hx Heart Murmur: Yes - Central Nervous System Hx Back Pain: Yes Hx Psychiatric Problems: Yes (depression) - Hematic Hx Anemia: Yes (RESOLVED) - Other Systems Hx Alcohol Use: No Hx Substance Use: No Hx Cancer: No Hx Obesity: Yes (BMI 37.4)
[2018-04-07] MEDS ORDERED: ZOFRAN IV PRN ×2 (18:18→20:44)
[2018-04-07] MEDS ORDERED: DILAUDID IV PRN ×2 (18:18→20:44)
[2018-04-07] MEDS ORDERED: DILAUDID ONE (18:38)
[2018-04-07] MEDS ORDERED: QUELICIN ONE (18:39)
[2018-04-07] MEDS ORDERED: DIPRIVAN 10 MG/ML IV ONE (18:39)
[2018-04-07] MEDS ORDERED: XYLOCAINE MPF 2% ONE (18:41)
[2018-04-07] MEDS ORDERED: LACTATED RINGERS 1,000 ML ONE (18:43)
[2018-04-07] MEDS ORDERED: PEPCID IV ONE (18:43)
[2018-04-07] MEDS ORDERED: VERSED ONE (18:44)
[2018-04-07] MEDS ORDERED: SUBLIMAZE ONE (18:44)
[2018-04-07] MEDS ORDERED: BACITRACIN ONE (18:53)
[2018-04-07] MEDS ORDERED: XYLOCAINE 1% 20 mL ONE (18:53)
[2018-04-07] MEDS ORDERED: MARCAINE 0.5% 30 ML INFILTRATI ONE (18:53)
[2018-04-07] MEDS ORDERED: LACTATED RINGERS 1,000 ML IV SCH ×3 (19:00→21:00)
[2018-04-07] MEDS ORDERED: PEPCID IV NR (19:00)
[2018-04-07] MEDS ORDERED: LACTATED RINGERS 1,000 ML IV ONE (19:00)
[2018-04-07] MEDS ORDERED: VERSED IV NR (19:00)
[2018-04-07] MEDS ORDERED: XYLOCAINE 1% 20 mL INFILTRATI ONE (20:30)
[2018-04-07] MEDS ORDERED: MARCAINE 0.5% INFILTRATI ONE (20:30)
[2018-04-07] MEDS ORDERED: BACITRACIN IR ONE (20:30)
[2018-04-07] MEDS ORDERED: ZOSYN/NS 4.5GM/100ML 4.5 GM/100 ML VIAL IV ONE (20:30)
[2018-04-07] MEDS ORDERED: CLORPACTIN WCS-90 IR ONE ×2 (20:30→21:23)
[2018-04-07] MEDS ORDERED: ANCEF/STERILE WATER 2 GM/20 ML 2 GM/20 ML SYRINGE IV ONE (21:20)
[2018-04-07] MEDS ORDERED: LACTATED RINGERS 2,000 ML ONE (22:06)
[2018-04-07] MEDS ORDERED: BLOXIVERZ ONE (22:51)
[2018-04-07] MEDS ORDERED: ROBINUL ONE (22:51)
[2018-04-07] MEDS ORDERED: ZOFRAN ONE (22:54)
--- NOTE | 2018-04-07 23:42 | Post Operative Note ---
Pre-op diagnosis: Pneumoperitoneum Post-op diagnosis: other (Perforation of gastric sleeve) Findings: perforation of the anterior proximal portion of the sleeve. Fibrinous tissues and green fluid within the abdomen. Green fluid leaking from umbilicus prior to incision. Hernandez: 350cc during case R KRISTI: overlays the gastric repair L KRISTI: above spleen to Left gutter. Procedure: Diagnostic laparoscopy, abdominal washout, repair of sleeve perforation, intraoperative EGD Anesthesia: GETA, local Surgeon: BERYL DICKINSON [employer]ire Bagger: Blanca Wynn (Dony Salvador, PIPE STRESS ENGINEER) Estimated blood loss: minimal Pathology: list (1. peritornal fluid cultures) Specimen disposition: to lab Condition: stable Disposition: ICU
[2018-04-08 00:19] LABS: Basophils # (Auto) 0.1 K/mm3 (0.0-0.1); Basophils % (Auto) 0.3 % (0.0-1.8); Hematocrit 35.3 % (30.3-42.9); Hemoglobin 11.6 gm/dl (10.1-14.3); Lymphocytes # (Auto) 0.8 K/mm3 (1.2-5.4); Lymphocytes % (Auto) 4.5 % (13.4-35.0); Mean Corpuscular HGB Conc 33 % (30-34); Mean Corpuscular Hemoglobin 28 pg (28-32); Mean Corpuscular Volume 86 fl (79-97); Monocytes # (Auto) 1.2 K/mm3 (0.0-0.8); Monocytes % (Auto) 6.3 % (0.0-7.3); Platelet Count 329 K/mm3 (140-440); Red Blood Count 4.12 M/mm3 (3.65-5.03); Red Cell Distribution Width 14.2 % (13.2-15.2)
[2018-04-08 00:32] LABS: Alanine Aminotransferase 52 units/L (7-56); Albumin 2.9 g/dL (3.9-5); BUN/Creatinine Ratio 11; Blood Urea Nitrogen 9 mg/dL (7-17); Hemolysis Index 0
[2018-04-08 00:59] LABS: Bilirubin,Urine NEG (Negative); Blood,Urine SM (Negative); Color,Urine Yellow (Yellow); Mucus,Urine FEW /HPF
[2018-04-08] MEDS ORDERED: DIFLUCAN 200 ML IV SCH (01:00)
[2018-04-08] MEDS ORDERED: LACTATED RINGERS 1,000 ML IV SCH (01:05)
[2018-04-08] MEDS ORDERED: MAGNESIUM SULFATE 2GM/50ML 2 GM/50 ML BAG IV ONE (01:19)
[2018-04-08] MEDS: DILAUDID IV PRN ×4 (02:17→21:39)
[2018-04-08] MEDS: SODIUM CHLORIDE FLUSH SYRINGE 10 ML IV SCH ×3 (02:28→22:45)
[2018-04-08] MEDS: ZOSYN/NS 4.5GM/100ML 4.5 GM/100 ML VIAL IV SCH ×3 (03:28→19:00)
[2018-04-08] MEDS: TYLENOL PR PRN (04:50)
[2018-04-08] MEDS ORDERED: PULMICORT IH SCH (08:00)
--- NOTE | 2018-04-08 08:30 | Operative Report ---
Operative Report Operative Report: DATE OF PROCEDURE 04/07/18 PREOPERATIVE DIAGNOSES: Pneumoperitoneum POSTOPERATIVE DIAGNOSES: 1. Gastric perforation SURGEON: Dr. Estes BASKETBALL PLAYER: Dony Perez DO, CST PROCEDURE: 1. Diagnostic laparoscopy 2. Repair of gastric perforation 3. Abdominal washout 4. intraoperative EGD ANESTHESIA: General. ESTIMATED BLOOD LOSS: 5 mL. COMPLICATIONS: None. SPECIMEN: Peritoneal fluid culture FINDINGS: 1. perforation of the anterior proximal portion of the sleeve. Fibrinous tissues and green fluid within the abdomen. Green fluid leaking from umbilicus prior to incision. Staton: 350cc during case R JUSTIN: overlays the gastric repair L JUSTIN: above spleen to Left gutter INDICATION FOR PROCEDURE: Patient is a 58 year-old F s/p laparoscopic sleeve gastrectomy 03/30/18 at [facility]. Prior to coming to the ER on 04/07/18 she had 2 days of abdominal pain. She at solid food such as cheese and started to have extreme left upper quadrant pain. On evaluation she had a WBC of >20, she was tachycardiac. CT abd/pelvis showed a large amount of free air. After risks and benefits were discussed with the patient including but not limited to bleeding, infection, damage to surrounding structures and need for further surgery she agreed to proceed with a diagnostic laparoscopy, repair of perforation, intraoperative egd, possible open and other indicated procedures. PROCEDURE IN DETAIL: After consent was reviewed, patient was taken back to the operating room, where patient was placed supine on the bed with both arms out. The patient's legs were doubly strapped to the bed. Patient had a foot board in place. A staton catheter was inserted. Patient had a body warmer placed by anesthesia. Patient was then prepped and draped in normal sterile surgical fashion. Prior to incision pt received zosyn. During the abdominal prep it was noted that the umbilical would was draining green murky fluid. Once time out was completed, the previous umbilical incision was opened and the fascial suture was removed. Copious amount of green murky fluid was pooling at the umbilicus. Fluid cultures were obtained. A 12mm trocar was placed under direct vision and the abdomen was insuflated to 15-18mmhg pressure. No bowel had been upon entry into the abdomen. Green murky fluid was noted tracking in the left gutter to the spleen and near the liver. Fibrinous white and yellow excudate covered the spleen and part of the upper abdominal peritoneum. I then placed two 5-mm ports in the right upper quadrant, one along the anterior axillary line and 1 subxiphoid below the costovertebral angle. I then placed left upper quadrant port along the anterior axillary line in a similar fashion. An additional 5mm port was placed left mid quadrant. Propr to each port placement local anesthesia was used. I then placed the liver retractor through the subxiphoid port and placed the patient in full reverse Trendelenburg. Green murky fluid was suctioned. The proximal portion of the sleeve was noted to have a larger amount of fibrinous exudate. Once this exudate was removed with a fundus grasper a 1-2cm hole was noted near the staple line of the gastric sleeve. Using the endostitch, 3 simple sutures of 2-0 surgidac were used to approximate the hole. A laparoscopic stapling device (green load) the hole was also closed but stapling across it and lifting up the previous sutures. the patient was placed in the supine position.An egd was passed down in the stomach. Saline with bacitracin was used to fill the upper abdomen with fluid. the scope then insulflated the stomach. No bubbles were noted intraabdominally via the laparoscopic. the fluid was suctioned. Next, the abdomen especially the upper abdomen around the spleen and around the sleeve were irrigated with several liter of saline mixed with bacitracin and several liters of NS mixed with chlorepactin. No bleeding was noted. An NG was placed distal to the perforation via the EGD. Tissel was then placed over the site of the repair. The tip of the JUTSIN drain exiting on the left abdomen was placed above the spleen , travelling down the left gutter. The tip of the justin drain exciting the right abdomen was placed directly over the site of the perforation repair. Omentum was then placed over the staple line covering the staple line as well as the JUSTIN. further intrabdominal fluid was suctioned. The remaining port sites were then removed. the umbicical incision was closed with PDS 1-0 in a figure of eight fashion. The skin was not closed at the umbilicus due to previous drainage. It was irrigated and packed with iodoform. the other trocar sites were closed with 4-0 monocryl. Each incision site had steristrips, gauze and tape placed. the patient was extubated and taken to the recovery room in stable condition. She tolerated the procedure well. Each JUSTIN was connected to a bulb self suction. The right and left crura were skeletonized accentuating a moderate hiatal hernia. The GE juction was below the level of the diaphragm. A dissection downward 1-2cm of esophagus was intrabadominal without tension. An anterior cruraplasty was perfromed with a figure-of-8 stitch using Endostich with 0 ethibond suture to reapproximate the crura. An additional single suture was place in a similar fashion.
--- NOTE | 2018-04-08 08:31 | Progress Note ---
Assessment and Plan 58 y.o. f s/p lap sleeve gastrectomy with hiatal hernia repair and partial fundoplication 03/30, presents to ER with abdominal pain, now s/p dx lap, abdominal washout, repair of gastric perforation and placement of drains pod 1 Neuro: dilualdid, morphien prn. Add toradol for pain control. Drowsy. Ativan prn for agitation for hx of anxiety Cardio: Tachycardia: related to fever. ekg hx of HTN: hold meds for now Pulm: Use of symbicort at home -[place] ihal. -atrovent due to decreased aeration -IS GI: npo, NG to low wall intermit. sunction. No manipulation of NG. NO ice chips no meds. monitor drain output in a few days will do an upper gi series. Nutrition: PIcc line for tpn. tpn to start tomorrow ID: gastric perf. f/u cultures from OR. zosyn and diflucan -fevers /Lytes: f/u am labs. monitor urine out. if u/o adequate over day, will dc staton d5LR 100 DVT proph: lovenox started scds GI proph: protonix Subjective Narrative: Pt seen and examined at bedside. She is somewhat confused. No acute event overnight. +abdominal pain, denies sob or chest pain. Ear ache when NG was connected to low intermit suction overnight. Staton: 300/6hrs JPs- Objective Vital Signs - 12hr 04/07/18 04/07/18 04/07/18 23:06 23:10 23:15 Temperature 98.4 F Pulse Rate 123 H 122 H 123 H Pulse Rate [ From Monitor] Respiratory 18 17 23 Rate Blood Pressure 148/89 150/81 139/64 O2 Sat by Pulse 91 91 94 Oximetry 04/07/18 04/07/18 04/08/18 23:30 23:45 00:00 Temperature Pulse Rate 120 H 117 H 120 H Pulse Rate [ From Monitor] Respiratory 13 19 26 H Rate Blood Pressure 152/71 145/71 141/63 O2 Sat by Pulse 97 98 93 Oximetry 04/08/18 04/08/18 04/08/18 00:15 00:30 00:46 Temperature Pulse Rate 121 H 120 H Pulse Rate [ From Monitor] Respiratory 23 24 Rate Blood Pressure 129/64 139/70 O2 Sat by Pulse 93 93 88 Oximetry 04/08/18 04/08/18 04/08/18 00:50 00:56 01:00 Temperature Pulse Rate 120 H 120 H Pulse Rate [ 120 H From Monitor] Respiratory 29 H 26 H 18 Rate Blood Pressure 129/72 O2 Sat by Pulse 94 93 95 Oximetry 04/08/18 04/08/18 04/08/18 01:10 01:20 01:30 Temperature Pulse Rate 119 H 119 H 119 H Pulse Rate [ From Monitor] Respiratory 21 23 27 H Rate Blood Pressure 129/72 129/72 129/72 O2 Sat by Pulse 92 94 96 Oximetry 04/08/18 04/08/18 04/08/18 01:40 01:50 02:00 Temperature Pulse Rate 120 H 119 H 123 H Pulse Rate [ From Monitor] Respiratory 22 27 H 49 H Rate Blood Pressure 129/72 129/72 129/72 O2 Sat by Pulse 95 94 96 Oximetry 04/08/18 04/08/18 04/08/18 02:10 02:20 02:30 Temperature Pulse Rate 125 H 125 H 128 H Pulse Rate [ From Monitor] Respiratory 39 H 22 30 H Rate Blood Pressure 132/66 132/66 132/66 O2 Sat by Pulse 96 Oximetry 04/08/18 04/08/18 04/08/18 02:40 02:50 03:00 Temperature Pulse Rate 126 H 125 H Pulse Rate [ 127 H From Monitor] Respiratory 36 H 57 H 32 H Rate Blood Pressure 132/66 132/66 150/79 O2 Sat by Pulse 83 L 94 96 Oximetry 04/08/18 04/08/18 04/08/18 03:10 03:20 03:30 Temperature Pulse Rate 127 H 127 H Pulse Rate [ From Monitor] Respiratory 29 H 32 H 27 H Rate Blood Pressure 150/79 150/79 150/79 O2 Sat by Pulse 97 98 Oximetry 04/08/18 04/08/18 04/08/18 03:40 03:50 04:00 Temperature 101.1 F H Pulse Rate 126 H 125 H 126 H Pulse Rate [ From Monitor] Respiratory 25 H 22 25 H Rate Blood Pressure 150/79 150/79 142/77 O2 Sat by Pulse 97 97 98 Oximetry 04/08/18 04/08/18 04/08/18 04:10 04:20 04:30 Temperature Pulse Rate 126 H 126 H 125 H Pulse Rate [ From Monitor] Respiratory 20 31 H 23 Rate Blood Pressure 142/77 142/77 142/77 O2 Sat by Pulse 96 99 96 Oximetry 04/08/18 04/08/18 04/08/18 04:40 04:50 05:00 Temperature Pulse Rate 125 H 124 H 124 H Pulse Rate [ 124 H From Monitor] Respiratory 26 H 31 H 29 H Rate Blood Pressure 142/77 142/77 134/75 O2 Sat by Pulse 96 96 98 Oximetry 04/08/18 04/08/18 05:10 08:00 Temperature 99.6 F Pulse Rate 123 H Pulse Rate [ From Monitor] Respiratory 27 H Rate Blood Pressure 134/75 O2 Sat by Pulse 93 Oximetry - General physical appearance well developed, no distress - ENT other (ng in place) - Respiratory normal expansion, normal respiratory effort rales: bilateral - Abdomen soft, bowel sounds hypoactive, other (soft, tender at incision sites. KRISTI's x [address] serosang discharge. minimally distended. packing removed from umbilicus - dry, no drainage. no bleeding. repacked with iodoform packing gauze and tape. no rebound no guarding ) - Integumentary no rash, no growths - Neurologic confused - Musculoskeletal normal posture - Psychiatric oriented to person, speech is normal - Labs 04/08/18 10:25 04/08/18 10:25 Diabetes panel 04/07/18 04/07/18 Range/Units 00:05 09:41 Sodium 141 138 (137-145) mmol/L Potassium 3.7 3.3 L (3.6-5.0) mmol/L Chloride 101.0 95.1 L (98-107) mmol/L Carbon Dioxide 23 21 L (22-30) mmol/L BUN 9 13 (7-17) mg/dL Creatinine 0.8 0.9 (0.7-1.2) mg/dL Glucose 123 H 113 H (65-100) mg/dL Calcium 8.0 L 8.8 (8.4-10.2) mg/dL AST 59 H 20 (5-40) units/L ALT 52 29 (7-56) units/L Alkaline Phosphatase 93 114 (35-129) units/L Total Protein 6.7 7.6 (6.3-8.2) g/dL Albumin 2.9 L 3.6 L (3.9-5) g/dL Calcium panel 04/07/18 04/07/18 Range/Units 00:05 09:41 Calcium 8.0 L 8.8 (8.4-10.2) mg/dL Phosphorus 3.70 (2.5-4.5) mg/dL Albumin 2.9 L 3.6 L (3.9-5) g/dL Pituitary panel 04/07/18 04/07/18 Range/Units 00:05 09:41 Sodium 141 138 (137-145) mmol/L Potassium 3.7 3.3 L (3.6-5.0) mmol/L Chloride 101.0 95.1 L (98-107) mmol/L Carbon Dioxide 23 21 L (22-30) mmol/L BUN 9 13 (7-17) mg/dL Creatinine 0.8 0.9 (0.7-1.2) mg/dL Glucose 123 H 113 H (65-100) mg/dL Calcium 8.0 L 8.8 (8.4-10.2) mg/dL Adrenal panel 04/07/18 04/07/18 Range/Units 00:05 09:41 Sodium 141 138 (137-145) mmol/L Potassium 3.7 3.3 L (3.6-5.0) mmol/L Chloride 101.0 95.1 L (98-107) mmol/L Carbon Dioxide 23 21 L (22-30) mmol/L BUN 9 13 (7-17) mg/dL Creatinine 0.8 0.9 (0.7-1.2) mg/dL Glucose 123 H 113 H (65-100) mg/dL Calcium 8.0 L 8.8 (8.4-10.2) mg/dL Total Bilirubin 0.50 0.40 (0.1-1.2) mg/dL AST 59 H 20 (5-40) units/L ALT 52 29 (7-56) units/L Alkaline Phosphatase 93 114 (35-129) units/L Total Protein 6.7 7.6 (6.3-8.2) g/dL Albumin 2.9 L 3.6 L (3.9-5) g/dL
[2018-04-08] MEDS: D5LR 1,000 ML IV SCH ×2 (09:04→19:00)
[2018-04-08] MEDS: PROTONIX IV SCH (09:05)
[2018-04-08 11:14] LABS: Basophils % (Auto) 0.2 % (0.0-1.8); Hemoglobin 10.9 gm/dl (10.1-14.3); Lymphocytes % (Auto) 5.4 % (13.4-35.0); Mean Corpuscular HGB Conc 34 % (30-34); Mean Corpuscular Hemoglobin 29 pg (28-32); Mean Corpuscular Volume 85 fl (79-97); Monocytes # (Auto) 1.1 K/mm3 (0.0-0.8); Monocytes % (Auto) 5.5 % (0.0-7.3); Platelet Count 319 K/mm3 (140-440); Red Blood Count 3.82 M/mm3 (3.65-5.03); Red Cell Distribution Width 14.1 % (13.2-15.2)
[2018-04-08 11:16] LABS: Hematocrit 32.6 % (30.3-42.9)
[2018-04-08 11:35] LABS: Alanine Aminotransferase 45 units/L (7-56); Albumin 2.7 g/dL (3.9-5); BUN/Creatinine Ratio 11; Blood Urea Nitrogen 8 mg/dL (7-17); Calcium 7.9 mg/dL (8.4-10.2); Hemolysis Index 56
--- NOTE | 2018-04-08 11:42 | Consultation ---
History of Present Illness Consult date: 04/08/18 Requesting physician: Blanca Wynn Reason for consult: other (Acute Hypoxemic Resp failure; Post-op Gastric Perforation) History of present illness: PULMONARY/CCM CONSULT NOTE (Full dictation # [id number]) Please see dictated notes for full details Past History Past Medical History: hypertension, other (sleep apnea, morbid obesity ) Past Surgical History: Other (rigth hand ganglion cyst removal, hysterectomy, Left knee replacement, right knee replacement, back surgery, lap sleeve gastrectomy with hiatal hernia repair and parital fundoplication) Social history: other (former smoker- last 1989) Family history: no significant family history Medications and Allergies Allergies Allergy/AdvReac Type Severity Reaction Status Date / Time No Known Allergies Allergy Unverified 03/16/18 11:09 Home Medications Medication Instructions Recorded Confirmed Last Taken Type Budesonide/Formoterol Fumarate 2 puff INHALATION BID 03/26/18 04/07/18 03/26/18 History [Symbicort 160-4.5 Mcg Inhaler] Bupropion HCl [Wellbutrin XL] 300 mg PO QAM 03/26/18 04/07/18 03/28/18 History Gabapentin [Neurontin] 400 mg PO TID 03/26/18 04/07/18 03/29/18 History LORazepam [Ativan] 1 mg PO BID PRN 03/26/18 04/07/18 03/29/18 History Linaclotide [Linzess] 145 mcg PO QAM 03/26/18 04/07/18 03/29/18 History Dexlansoprazole (Cecilia) [Dexilant 60 mg PO QAM 03/30/18 04/07/18 03/28/18 History (Cecilia)] HYDROcodone/APAP 7.5-325 [Simpson 1 each PO Q12H PRN 04/07/18 04/07/18 Unknown History 7.5/325] Active Meds: Active Medications Acetaminophen (Tylenol) 650 mg VA Q6H PRN PRN Reason: Fever >101 Last Admin: 04/08/18 04:50 Dose: 650 mg Budesonide (Pulmicort) 0.25 mg IH BIDRT PENDING SALE TO [facility] Enoxaparin Sodium (Lovenox) 40 mg SUB-Q QDAY@2200 JULIETTE Hydralazine HCl (Apresoline) 20 mg IV Q6H PRN PRN Reason: Hypertension Hydromorphone HCl (Dilaudid) 0.5 mg IV Q3H PRN PRN Reason: Pain , Severe (7-10) Last Admin: 04/08/18 08:55 Dose: 0.5 mg Fluconazole (Diflucan) 200 mls @ 100 mls/hr IV Q24H PENDING SALE TO [facility]; Protocol Last Admin: 04/08/18 02:23 Dose: 100 mls/hr Piperacillin Sod/Tazobactam Sod (Zosyn/Ns 4.5gm/100ml) 4.5 gm in 100 mls @ 200 mls/hr IV Q8H JULIETTE; Protocol Last Admin: 04/08/18 03:28 Dose: 200 mls/hr Dextrose/Lactated Ringer's (D5lr) 1,000 mls @ 100 mls/hr IV DIRECT JULIETTE Last Admin: 04/08/18 09:04 Dose: 100 mls/hr Ipratropium [place] (Atrovent) 0.5 mg IH Q4HRT PENDING SALE TO [facility] Ketorolac Tromethamine (Toradol) 30 mg IV Q6HR PENDING SALE TO [facility] Stop: 04/13/18 11:59 Lorazepam (Ativan) 1 mg IV BID PRN PRN Reason: Agitation Ondansetron HCl (Zofran) 4 mg IV Q8H PRN PRN Reason: Nausea And Vomiting Pantoprazole Sodium (Protonix) 40 mg IV QDAY PENDING SALE TO [facility] Last Admin: 04/08/18 09:05 Dose: 40 mg Sodium Chloride (Sodium Chloride Flush Syringe 10 Ml) 10 ml IV BID PENDING SALE TO [facility] Last Admin: 04/08/18 02:28 Dose: 10 ml Sodium Chloride (Sodium Chloride Flush Syringe 10 Ml) 10 ml IV PRN PRN PRN Reason: LINE FLUSH Physical Examination Vital signs: Vital Signs Temp Pulse Resp BP Pulse Ox 98.4 F 120 H 22 97/60 95 04/07/18 09:13 04/07/18 09:13 04/07/18 09:13 04/07/18 09:13 04/07/18 09:13 Results - Laboratory Findings CBC and BMP: 04/08/18 10:25 04/08/18 10:25 PT/INR, D-dimer PT 13.5 Sec. (12.2-14.9) 04/07/18 09:41 INR 0.98 (0.87-1.13) 04/07/18 09:41 Abnormal lab findings: Abnormal Labs 04/07/18 04/07/18 04/07/18 00:05 00:05 09:41 WBC 18.4 H 21.3 H Lymph % (Auto) 4.5 L Lymph # 0.8 L Dawes # 1.2 H Seg Neutrophils % 88.9 H Seg Neuts % (Manual) 85.0 H Lymphocytes % (Manual) 4.0 L Seg Neutrophils # 16.4 H Seg Neutrophils # Man 18.1 H Lymphocytes # (Manual) 0.9 L Monocytes # (Manual) 1.1 H Potassium Chloride Carbon Dioxide Glucose 123 H Calcium 8.0 L Magnesium 1.60 L AST 59 H Total Protein Albumin 2.9 L Urine WBC (Auto) 04/07/18 04/08/18 04/08/18 09:41 00:20 10:25 WBC 19.2 H Lymph % (Auto) 5.4 L Lymph # 1.0 L Dawes # 1.1 H Seg Neutrophils % 88.9 H Seg Neuts % (Manual) Lymphocytes % (Manual) Seg Neutrophils # 17.1 H Seg Neutrophils # Man Lymphocytes # (Manual) Monocytes # (Manual) Potassium 3.3 L Chloride 95.1 L Carbon Dioxide 21 L Glucose 113 H Calcium Magnesium AST Total Protein Albumin 3.6 L Urine WBC (Auto) 45.0 H 04/08/18 10:25 WBC Lymph % (Auto) Lymph # Dawes # Seg Neutrophils % Seg Neuts % (Manual) Lymphocytes % (Manual) Seg Neutrophils # Seg Neutrophils # Man Lymphocytes # (Manual) Monocytes # (Manual) Potassium 3.5 L Chloride Carbon Dioxide Glucose 123 H Calcium 7.9 L Magnesium AST 53 H Total Protein 6.1 L Albumin 2.7 L Urine WBC (Auto)
[2018-04-08] MEDS: TORADOL IV SCH ×3 (12:33→23:13)
[2018-04-08] MEDS: ATROVENT IH SCH ×2 (12:55→12:56)
[2018-04-08] MEDS ORDERED: XOPENEX IH ONE (12:59)
[2018-04-08] MEDS ORDERED: DUONEB *Not for PRN Use IH ONE (13:02)
[2018-04-08] MEDS ORDERED: PULMICORT IH ONE (13:13)
[2018-04-08] MEDS: PULMICORT IH SCH ×2 (13:16→20:04)
[2018-04-08] MEDS: KCL 10MEQ/100ML 10 MEQ/100 ML BAG IV SCH ×2 (15:52→18:14)
[2018-04-08] MEDS: DUONEB *Not for PRN Use IH SCH ×2 (19:59→20:02)
[2018-04-08] MEDS ORDERED: DIFLUCAN 200 MG/100 ML BAG IV SCH (21:00)
[2018-04-08] MEDS: LOVENOX SUB-Q SCH (21:57)
[2018-04-08] MEDS: ZOFRAN IV PRN (21:57)
--- NOTE | 2018-04-08 22:29 | Consultation ---
PULMONARY CRITICAL CARE CONSULT NOTE CONSULTING PHYSICIAN: Dr. Wynn. REASON FOR CONSULTATION: Sepsis syndrome status post perforated abdominal viscus. CHIEF COMPLAINT AND HISTORY OF PRESENT ILLNESS: The patient is a 58-year-old -[place] Islander female with past medical history most significant for recent laparoscopic sleeve gastrectomy with hiatal hernia repair and partial fundoplication done on 03/30/2018 of this year about a week ago. Presented back to the ER complaining of abdominal pain, nausea for about a couple of days, some vomiting. On the night before presentation, she developed left upper quadrant pain. The pain was a 10/10 in the morning of presentation, fevers at home were up to 102 degrees Fahrenheit. No alleviating factors to the pain. In the ER, she had leukocytosis. She was tachycardic, systemic inflammatory response syndrome had been activated. CT of the abdomen and pelvis showed free air in the bowel. She was taken back into the OR for the repair of the perforated viscus. It was a perforation of the anterior proximal portion of the sleeve with fibrinous tissues and green fluid within the abdomen, this was repaired. KRISTI drains were placed right and left and she was brought into the Intensive Care Unit where I stopped by to see her. When I stopped by to see her, she was on about 2 liters of nasal cannula. She was delirious, is the best I can describe her condition. She denied any chest pain, but again was a very poor historian at that time. Now with regard to her tobacco use/abuse history, she has a remote tobacco smoking history. I am unable to quantify it at this time. That really is as much of the history of presentation as I have. PAST MEDICAL HISTORY: Significant for history of hypertension, history of gastroesophageal reflux disease, history of arthritis, history of asthma, for which she is on albuterol and Symbicort at home and she is obese. PAST SURGICAL HISTORY: The recent gastric sleeve. She has had a hysterectomy. She has had left and right knee replacement and she has had right hand carpal tunnel release surgery. MEDICATIONS: She was on at the time I stopped by to see her were reviewed. Pertinent medications included the following: She was on Pulmicort 0.25 mg nebulized b.i.d. She had been on lactated Ringer at 100 mL an hour. She was on Lovenox 40 mg subcutaneous daily, Diflucan 200 mg IV daily, p.r.n. hydralazine, Dilaudid 0.5 mg IV q.3 hours p.r.n. severe pain, Atrovent treatments 0.5 mg nebulized q.4 hours scheduled, Toradol 30 mg IV q.6 hours scheduled, Ativan 1 mg IV b.i.d. p.r.n. agitation, Protonix 40 mg IV daily, Zofran 4 mg IV q.8 hours p.r.n. nausea and vomiting, and Zosyn 4.5 g IV q.8 hours. ALLERGIES: No known drug allergies. DIET: Obese lady. No significant weight loss or gain in the preceding few weeks to months. FAMILY AND SOCIAL HISTORY: Apparently lives in the community. She has a remote tobacco smoking history. Alcohol and illicit drug use or abuse history is unknown. FAMILY HISTORY: Otherwise unknown and unobtainable at this time. REVIEW OF SYSTEMS: Difficult to obtain secondary to her mild delirium, but since she has been here, no gross hematochezia or melena. No gross hematuria, no hematemesis. She had complained of a sore throat earlier. No hemoptysis. She denies palpitations. No seizures have been noticed. Complete 13-system review of systems obtained as best as I could. Pertinent positives and/or negatives as in body of history above, otherwise unobtainable. PHYSICAL EXAMINATION: VITAL SIGNS: At presentation, she was afebrile, temperature 98.4 degrees Fahrenheit; pulse was 120; respiratory rate was 22, as high as 29 in the ER; blood pressure was 97/60; O2 sats are 95%. Inspired oxygen concentration at that time was not recorded. She has had a T-max of 101.1 degrees Fahrenheit. GENERAL: An elderly looking -[place] female, normocephalic, atraumatic, talking to me in partially interrupted sentences with mildly increased work of breathing. HEAD, EYES, EARS, NOSE, AND THROAT: She is anicteric. No conjunctival erythema. Oropharynx is Mallampati #3 oropharynx. No gross thyromegaly. Grossly, no jugular venous distention. No palpable lymph nodes in the supraclavicular or submandibular lymph node chains. LUNGS: Auscultation of both lung montgomery remarkable only for diminished bibasilar air entry, prolonged expiratory phase. No active wheezing. HEART: Heart sounds 1 and 2 are heard at the time of my evaluation. Regular rate and rhythm. No rubs or murmurs. ABDOMEN: Soft, full. Bowel sounds are positive, but hypoactive. Mildly tender to palpation over the abdominal site. No hepatosplenomegaly is palpable grossly. EXTREMITIES: Without overt digital clubbing or cyanosis. No pedal edema. Dorsalis pedis pulses are palpable bilaterally. NEUROLOGIC: Pupils are equal, round, about 3-4 mm, reactive to light. Extraocular muscle movements appeared intact. She moves all 4 extremities spontaneously. She has a couple of drains to the perioperative site. KRISTI drains with some bloody fluid in it. LABORATORY DATA: From my review are as follows: Admission white cell count 18,400 with hemoglobin of 11.6, hematocrit of 35.3, platelet count of 329. 5% band, neutrophils. INR 0.98. Venous blood gas showed a pH of 7.41. Serum sodium was 141, potassium 3.7, chloride 101, bicarbonate 23, BUN 9, creatinine 0.8, and glucose was 123. Lactic acid level was within normal limits. Magnesium was low at 1.6. AST 59, otherwise liver function tests essentially within normal limits. Albumin was low at 2.9. Troponin was within normal limits. Urinalysis showed a small amount of leukocyte esterase, 45 white cells per high power field. White count is 19,200 today. BUN is 8, creatinine 0.7, potassium 3.5. Albumin is 2.7. Microbiology: Blood cultures - no growth x24 hours. Surgical cultures - no growth to date. DIAGNOSTIC DATA: Radiographic studies have been reviewed. I have also reviewed the radiologist's interpretation. A chest x-ray was done, essentially is a nonacute chest x-ray, there is an implanted device in the left upper anterior chest wall, but I do not see any leads going into her heart. I do seem to see some of it going up the left neck region and it is unclear if this is a stimulator of some sort, but no gross pneumothorax, no gross bony fracture. She had a CT angio of her chest, which was limited by artifact from the implanted device in the chest, but no gross filling defects consistent with pulmonary emboli. Certainly in the upper order vessels, there is some small left pleural effusion. CT of the abdomen and pelvis showed new small left pleural effusion, increasing atelectasis in the left lower lobe region, also increased pneumoperitoneum with new minimal tiny perisplenic and small pelvic ascites, worrisome for a post-surgical leak/dehiscence. ASSESSMENT: 1. Sepsis syndrome with altered mental status in the setting of the systemic inflammatory response syndrome. 2. Perforated abdominal viscus status post exploratory laparotomy and repair. 3. Obesity. 4. Obstructive sleep apnea according to the history. 5. Acute encephalopathy, presumably toxic metabolic. 6. History of hypertension. 7. Arthritis. 8. Gastroesophageal reflux disease. 9. Morbid obesity. 10. Acute hypoxemic respiratory failure. PLAN: She is postop. We will continue the empiric antibiotic therapy at this point and deescalate based on results of clinical and microbiologic data. The altered mental status is a little bit worrisome. I will try and further investigate what the devices that is in her left chest and see if there was some baseline neurologic abnormality. She was described as being alert and oriented prior to this decompensation. We will continue supplemental oxygen to keep sats greater than or equal to 90%. Aspiration precautions will be maintained. I will deploy empiric bilevel positive air pressure ventilation therapy scheduled at bedtime and p.r.n. during the day. An arterial blood gas is going to be ordered to make sure that we are not dealing with hypercapnia as part of her altered mental status at this point. I will also get a CRP level and repeat lactic acid level as part of a sepsis workup. She will be continued on GI and DVT prophylaxis. We will defer to surgery with regard to the abdominal perforation. Flu and pneumonia vaccination will be addressed per protocol. We will continue her routine home medications. I will recommend Hospitalist Medicine consult to be placed, so that they can manage her chronic illnesses. Her blood sugars have been relatively decent and well controlled. She will begin TPN, is the plan per the surgeon, and will need a central access for that, a PICC line consult I believe has been placed. Thank you very much for the consult, Dr. Wynn. We will follow along. We will make further recommendations as picture progresses/becomes clearer. I do agree with watching her in the Intensive Care Unit for the sepsis syndrome. She is critically ill. She is at risk for decompensation from a respiratory and cardiac standpoint. I should mention I will also be replacing her serum potassium. At this point, I have spent about 35-40 minutes of critical care time without overlap and excluding any procedural time that may be necessary. JOB# [id number] CHRISTY/CARLOS FOSTER
[2018-04-08] MEDS: ATIVAN IV PRN (22:31)
[2018-04-08] MEDS: APRESOLINE IV PRN (22:32)
[2018-04-08] MEDS ORDERED: DILAUDID IV ONE (23:23)
[2018-04-09 00:09] LABS: Hematocrit 35.1 % (30.3-42.9); Hemoglobin 11.7 gm/dl (10.1-14.3); Mean Corpuscular HGB Conc 33 % (30-34); Mean Corpuscular Hemoglobin 29 pg (28-32); Mean Corpuscular Volume 86 fl (79-97); Platelet Count 313 K/mm3 (140-440); Red Blood Count 4.07 M/mm3 (3.65-5.03); Red Cell Distribution Width 14.9 % (13.2-15.2)
[2018-04-09] MEDS ORDERED: DIFLUCAN 200 MG/100 ML BAG IV SCH ×3 (02:00)
[2018-04-09] MEDS: CHLORASEPTIC MM PRN (02:16)
[2018-04-09] MEDS: DILAUDID IV PRN ×2 (02:18→20:30)
[2018-04-09 02:54] LABS: Anisocytosis 1+; Basophils % (Manual) 0 % (0.0-1.8); Eosinophils % (Manual) 0 % (0.0-4.3); Total Cells Counted 100
[2018-04-09 02:55] LABS: Platelet Estimate Consistent w Auto
[2018-04-09] MEDS: ZOSYN/NS 4.5GM/100ML 4.5 GM/100 ML VIAL IV SCH ×2 (03:34→11:20)
[2018-04-09 05:03] LABS: Hematocrit 35.1 % (30.3-42.9); Hemoglobin 11.5 gm/dl (10.1-14.3); Mean Corpuscular HGB Conc 33 % (30-34); Mean Corpuscular Hemoglobin 28 pg (28-32); Mean Corpuscular Volume 87 fl (79-97); Platelet Count 300 K/mm3 (140-440); Red Blood Count 4.06 M/mm3 (3.65-5.03); Red Cell Distribution Width 14.6 % (13.2-15.2)
[2018-04-09] MEDS: TORADOL IV SCH ×3 (05:14→17:58)
[2018-04-09 05:25] LABS: Alanine Aminotransferase 39 units/L (7-56); Albumin 2.9 g/dL (3.9-5); BUN/Creatinine Ratio 12; Blood Urea Nitrogen 7 mg/dL (7-17); Calcium 7.9 mg/dL (8.4-10.2); Hemolysis Index 0
[2018-04-09 08:00] LABS: Anisocytosis 1+; Band Neutrophils # (Manual) 0.3 K/mm3; Basophils % (Manual) 0 % (0.0-1.8); Eosinophils % (Manual) 0 % (0.0-4.3); Platelet Estimate Cons; Total Cells Counted 100
[2018-04-09] MEDS: PULMICORT IH SCH ×2 (08:05→20:58)
[2018-04-09] MEDS: DUONEB *Not for PRN Use IH SCH (08:06)
[2018-04-09] MEDS ORDERED: KPHOS 30 MMOL in NACL 0.9% 500 ML 500 ML IV ONE ×2 (09:00→22:30)
[2018-04-09] MEDS: PROTONIX IV SCH (09:11)
[2018-04-09] MEDS: SODIUM CHLORIDE FLUSH SYRINGE 10 ML IV SCH (09:13)
[2018-04-09] MEDS: D5LR 1,000 ML IV SCH ×2 (09:28→17:58)
--- NOTE | 2018-04-09 13:04 | Progress Note ---
Assessment and Plan Sepsis syndrome with altered mental status in the setting of the systemic inflammatory response syndrome. Perforated abdominal viscus status post exploratory laparotomy and repair. Obesity. Obstructive sleep apnea according to the history. Acute encephalopathy, presumably toxic metabolic. History of hypertension. Arthritis. Gastroesophageal reflux disease. Morbid obesity. Acute hypoxemic respiratory failure - continue supplemental oxygen to keep sats > 90% - replaced phosphorus with 30 mmols IV X 1 - PICC line placement ongoing - to begin TPN today - PT/OT evaluate and treat - continue GI & VTE prophylaxis - continue bronchodilators for COPD; i will add brovana and change duonebs to prn - continue BIPAP scheduled qhs for WILVER - wound care per WCT / RN and surgeon - continue other care per attending / other consultants ...... re-evaluate in am & prn ...35' Subjective Date of service: 04/09/18 Principal diagnosis: Sepsis Syndrome; Acute Hypoxemic Resp Failure; Acute Encephalopathy Interval history: Patient is seen today for: Sepsis Syndrome; Acute Hypoxemic Resp Failure; Acute Encephalopathy Seen and examined at bedside; 24hour events reviewed; nursing and respiratory care staff consulted; no adverse overnight events reported to me; resting in bed ; much more appropriate mentally; No N/V/F/C; remains off vasopressors; tolerated only 2-3 hours on BIPAP overnight per RT Objective Vital Signs - 12hr 04/09/18 04/09/18 04/09/18 02:00 03:49 04:00 Temperature 98.8 F Pulse Rate [ 124 H 122 H From Monitor] Pulse Rate [ Posterior Bilateral] Respiratory 28 H 23 Rate Respiratory Rate [Posterior Bilateral] O2 Sat by Pulse 99 Oximetry 04/09/18 04/09/18 04/09/18 06:00 08:00 08:08 Temperature 98.9 F Pulse Rate [ 112 H 111 H From Monitor] Pulse Rate [ 109 H Posterior Bilateral] Respiratory 23 18 Rate Respiratory 18 Rate [Posterior Bilateral] O2 Sat by Pulse 99 99 Oximetry 04/09/18 04/09/18 08:19 10:00 Temperature Pulse Rate [ 109 H From Monitor] Pulse Rate [ 111 H Posterior Bilateral] Respiratory 19 Rate Respiratory 19 Rate [Posterior Bilateral] O2 Sat by Pulse 99 Oximetry Constitutional: appears uncomfortable, other (elderly AAF , normocephalic and atraumatic resting in bed with mildly increased work of breathing) Eyes: non-icteric ENT: oropharynx moist, other (no thyromegaly) Neck: supple, no lymphadenopathy, no JVD, other (large neck circumference) Effort: mildly labored Ascultation: Bilateral: diminished breath sounds, rhonchi (scant in bases) Percussion: Bilateral: not dull Cardiovascular: regular rate and rhythm, other (No R/M) Gastrointestinal: hypoactive bowel sounds, soft, tender (around operative site) , non-distended, other (no palpable HSM) Integumentary: normal Extremities: no cyanosis, no edema, pulses normal, no ischemia or petechiae Neurologic: non-focal exam (grossly), pupils equal and round, CN II-XII normal, motor strength normal and, other (somnolent) Psychiatric: mood appropriate, affect normal CBC and BMP: 04/09/18 04:20 04/09/18 04:20 ABG, PT/INR, D-dimer: PT/INR, D-dimer PT 13.5 Sec. (12.2-14.9) 04/07/18 09:41 INR 0.98 (0.87-1.13) 04/07/18 09:41 Abnormal lab findings: Abnormal Labs 04/07/18 04/07/18 04/07/18 00:05 00:05 09:41 WBC 18.4 H 21.3 H Lymph % (Auto) 4.5 L Lymph # 0.8 L [place] # 1.2 H Seg Neutrophils % 88.9 H Seg Neuts % (Manual) 85.0 H Lymphocytes % (Manual) 4.0 L Seg Neutrophils # 16.4 H Seg Neutrophils # Man 18.1 H Lymphocytes # (Manual) 0.9 L Monocytes # (Manual) 1.1 H Potassium Chloride Carbon Dioxide Creatinine Glucose 123 H Calcium 8.0 L Phosphorus Magnesium 1.60 L AST 59 H C-Reactive Protein Total Protein Albumin 2.9 L Urine WBC (Auto) 04/07/18 04/08/18 04/08/18 09:41 00:20 10:25 WBC 19.2 H Lymph % (Auto) 5.4 L Lymph # 1.0 L [place] # 1.1 H Seg Neutrophils % 88.9 H Seg Neuts % (Manual) Lymphocytes % (Manual) Seg Neutrophils # 17.1 H Seg Neutrophils # Man Lymphocytes # (Manual) Monocytes # (Manual) Potassium 3.3 L Chloride 95.1 L Carbon Dioxide 21 L Creatinine Glucose 113 H Calcium Phosphorus Magnesium AST C-Reactive Protein Total Protein Albumin 3.6 L Urine WBC (Auto) 45.0 H 04/08/18 04/08/18 04/08/18 10:25 13:33 23:53 WBC 12.8 H Lymph % (Auto) Lymph # [place] # Seg Neutrophils % Seg Neuts % (Manual) 97.0 H Lymphocytes % (Manual) 2.0 L Seg Neutrophils # Seg Neutrophils # Man 12.4 H Lymphocytes # (Manual) 0.3 L Monocytes # (Manual) Potassium 3.5 L Chloride Carbon Dioxide Creatinine Glucose 123 H Calcium 7.9 L Phosphorus Magnesium AST 53 H C-Reactive Protein 52.00 H Total Protein 6.1 L Albumin 2.7 L Urine WBC (Auto) 04/09/18 04/09/18 04:20 04:20 WBC 16.2 H Lymph % (Auto) Lymph # [place] # Seg Neutrophils % Seg Neuts % (Manual) 89.0 H Lymphocytes % (Manual) 4.0 L Seg Neutrophils # Seg Neutrophils # Man 14.4 H Lymphocytes # (Manual) 0.6 L Monocytes # (Manual) Potassium 3.5 L Chloride Carbon Dioxide Creatinine 0.6 L Glucose 117 H Calcium 7.9 L Phosphorus 1.50 L D Magnesium AST C-Reactive Protein Total Protein 5.6 L Albumin 2.9 L Urine WBC (Auto) Allied health notes reviewed: nursing
[2018-04-09] MEDS ORDERED: DUONEB *Not for PRN Use IH (13:29)
--- NOTE | 2018-04-09 15:01 | XRay Report ---
Portable chest: A right PICC line has been placed. The tip is in the low SVC near or at right atrium. A nasogastric tube is present. These are both new since prior exam of April 07. The lungs remain generally clear although there is a slightly hazy appearance to the left lung base. The heart enlarged there is no overt vascular congestion. Impressions: 1. Adequate positioning of life-support tubes. 2. Suspicion of worsening left pleural effusion.
[2018-04-09] MEDS: KCL 10MEQ/100ML 10 MEQ/100 ML BAG IV SCH ×3 (15:41→17:57)
[2018-04-09] MEDS: PROVENTIL IH PRN ×2 (15:52→22:02)
--- NOTE | 2018-04-09 16:00 | Progress Note ---
Assessment and Plan 58 y.o. f s/p lap sleeve gastrectomy with hiatal hernia repair and partial fundoplication 03/30, presents to ER with abdominal pain, now s/p dx lap, abdominal washout, repair of gastric perforation and placement of drains pod 2 Neuro: dilualdid, morphien prn. toradol for pain control. Ativan prn for agitation for hx of anxiety -improved mentation compared to yesterday but still not at base line. She still remains confused at times Cardio: Tachycardia: improved over course of day but currently again tachy to 130s- likely related to resp. distress. hx of HTN: hold meds for now Pulm: danish Sen pulmicort. Appreciate pulmonary consult -IS CXr 04/09: left effusion, cardiomeg. no pulm congestion -if pt does is unable to perform using the IS she may need manual resp. therapy GI: npo, NG to low wall intermit. sunction. No manipulation of NG. NO ice chips no meds. monitor drain output in a few days will do an upper gi series- next week. Nutrition: PIcc line for tpn. tpn to start. DC fluids once tpn starts. -monitor lytes ID: gastric perf. f/u cultures from OR. zosyn and diflucan -umbilical incision: change packing daily -prelim: gram neg rods /Lytes: f/u am labs. monitor urine out. Staton removed. Monitor urine output with bedpan. -hypokalemia- replace today -hypophos: replace DVT proph: lovenox started scds GI proph: protonix Out of bed to chair dispo: Remain in the icu today. Pt continues to have tachycardia and respiratory distress requiring close monitoring in the icu setting. Subjective Narrative: Overnight, pt had severe right abdominal pain. She recieved an additional diluadid 1mg and cbc was drwn. No jeremiah blood loss and pain was relieved with extra dose of pain medication. Pt has head and abd. pain today. The ng tube is irritating to her throat. the abd. pain is diffuse. She rates a 6/10. +sob. denies chest pain denies nausea and vomiting staton >1100 /24hrs KRISTI R 95cc /24hrs. green thin fluid. KRISTI L 80cc/24hrs. serosang. NG; low intermit. wall sunction. minimal green gastric drainage. Objective Vital Signs - 12hr 04/09/18 04/09/18 04/09/18 04:00 06:00 08:00 Temperature 98.9 F Pulse Rate [ 122 H 112 H 111 H From Monitor] Pulse Rate [ Posterior Bilateral] Respiratory 23 23 18 Rate Respiratory Rate [Posterior Bilateral] O2 Sat by Pulse 99 99 99 Oximetry 04/09/18 04/09/18 04/09/18 08:08 08:19 10:00 Temperature Pulse Rate [ 109 H From Monitor] Pulse Rate [ 109 H 111 H Posterior Bilateral] Respiratory 19 Rate Respiratory 18 19 Rate [Posterior Bilateral] O2 Sat by Pulse 99 Oximetry 04/09/18 04/09/18 04/09/18 12:00 14:00 15:52 Temperature 99.7 F H Pulse Rate [ 115 H 122 H From Monitor] Pulse Rate [ 124 H Posterior Bilateral] Respiratory 18 18 Rate Respiratory 19 Rate [Posterior Bilateral] O2 Sat by Pulse 99 99 Oximetry - General physical appearance well developed, well nourished, moderate distress - ENT other (NG in place. minimal bilious output ) - Respiratory wheezing: bilateral (increase work on breathing ) - Abdomen soft, other (distended, soft, tender at incision sites. dressings cdi. umbilical packing removed. wound irrigated with ns, dried and repacked lightly with iodoform guaze. no pus no drainage. ) - Integumentary no rash, no growths - Neurologic normal coordination, other (A+Ox2, confused at times. ) - Psychiatric oriented to person, oriented to place - Labs 04/09/18 04:20 04/09/18 04:20 Diabetes panel 04/09/18 Range/Units 04:20 Sodium 142 (137-145) mmol/L Potassium 3.5 L (3.6-5.0) mmol/L Chloride 103.9 (98-107) mmol/L Carbon Dioxide 24 (22-30) mmol/L BUN 7 (7-17) mg/dL Creatinine 0.6 L (0.7-1.2) mg/dL Glucose 117 H (65-100) mg/dL Calcium 7.9 L (8.4-10.2) mg/dL AST 28 (5-40) units/L ALT 39 (7-56) units/L Alkaline Phosphatase 99 (35-129) units/L Total Protein 5.6 L (6.3-8.2) g/dL Albumin 2.9 L (3.9-5) g/dL Calcium panel 04/09/18 Range/Units 04:20 Calcium 7.9 L (8.4-10.2) mg/dL Phosphorus 1.50 L D (2.5-4.5) mg/dL Albumin 2.9 L (3.9-5) g/dL Pituitary panel 04/09/18 Range/Units 04:20 Sodium 142 (137-145) mmol/L Potassium 3.5 L (3.6-5.0) mmol/L Chloride 103.9 (98-107) mmol/L Carbon Dioxide 24 (22-30) mmol/L BUN 7 (7-17) mg/dL Creatinine 0.6 L (0.7-1.2) mg/dL Glucose 117 H (65-100) mg/dL Calcium 7.9 L (8.4-10.2) mg/dL Adrenal panel 04/09/18 Range/Units 04:20 Sodium 142 (137-145) mmol/L Potassium 3.5 L (3.6-5.0) mmol/L Chloride 103.9 (98-107) mmol/L Carbon Dioxide 24 (22-30) mmol/L BUN 7 (7-17) mg/dL Creatinine 0.6 L (0.7-1.2) mg/dL Glucose 117 H (65-100) mg/dL Calcium 7.9 L (8.4-10.2) mg/dL Total Bilirubin 0.50 (0.1-1.2) mg/dL AST 28 (5-40) units/L ALT 39 (7-56) units/L Alkaline Phosphatase 99 (35-129) units/L Total Protein 5.6 L (6.3-8.2) g/dL Albumin 2.9 L (3.9-5) g/dL - Imaging Chest x-ray: report reviewed
[2018-04-09] MEDS: VASOTEC IV SCH (16:48)
[2018-04-09] MEDS: TYLENOL PR PRN (19:00)
[2018-04-09] MEDS ORDERED: NEO-SYNEPHRINE 100 MG in NACL 0.9% 90 ML IV SCH (19:00)
[2018-04-09] MEDS ORDERED: TPN ADULT 2,016 ML IV SCH (20:00)
[2018-04-09] MEDS: BROVANA NEBU IH SCH (20:58)
[2018-04-09 21:57] LABS: Hematocrit 30.6 % (30.3-42.9); Hemoglobin 10.6 gm/dl (10.1-14.3); Mean Corpuscular HGB Conc 35 % (30-34); Mean Corpuscular Hemoglobin 29 pg (28-32); Mean Corpuscular Volume 85 fl (79-97); Platelet Count 290 K/mm3 (140-440); Red Blood Count 3.62 M/mm3 (3.65-5.03); Red Cell Distribution Width 14.6 % (13.2-15.2)
[2018-04-09 22:17] LABS: BUN/Creatinine Ratio 10; Blood Urea Nitrogen 5 mg/dL (7-17); Calcium 7.9 mg/dL (8.4-10.2); Hemolysis Index 0
[2018-04-09 22:21] LABS: Creatine Kinase MB < 1.0 ng/mL (0.0-4.0)
[2018-04-09] MEDS: LOVENOX SUB-Q SCH (22:27)
[2018-04-09] MEDS: ATIVAN IV PRN (22:28)
--- NOTE | 2018-04-09 22:37 | Cat Scan Report ---
FINAL REPORT PROCEDURE: CT ANGIO CHEST TECHNIQUE: Computerized tomographic angiography of the chest was performed during the IV injection of iodinated nonionic contrast including image processing. The image data was postprocessed using 2-dimensional multiplanar reformatted (MPR) and 3-dimensional (MIP and/or volume rendered) techniques. HISTORY: Chest pain; Hypoxemic Respiratory Failure COMPARISON: Prior study earlier today. FINDINGS: Pulmonary outflow tract, right and left main pulmonary arteries and their proximal branches: Clear, no filling defects seen to suggest pulmonary embolus. Pericardium: No evidence of pericardial effusion. Thoracic aorta: Atherosclerotic changes are visualized. No evidence of aneurysm. Coronary arteries: Are partially calcified indicating atherosclerotic disease. Mediastinum and hilar regions: Nonspecific subcentimeter lymph nodes are visualized. No pathologically enlarged lymph nodes or masses are identified. Lung [place]: Moderate size left pleural effusion is present. This has increased since earlier today. There is dense consolidation in the left lower lobe likely representing atelectasis. Pneumonia needs clinical exclusion. Minimal right pleural effusion visualized. Consolidation seen in the right lower lobe suggesting atelectasis. Upper abdomen: Free intraperitoneal gas is again visualized as well as a large amount of fluid now collected anteriorly to the left lobe of the liver. This fluid collection now measures 14 centimeters transverse and 4.7 centimeters AP. Small amount of fluid is seen adjacent to the spleen as well. The fluid adjacent to the spleen appear to be present on the study earlier today as well. There appears to be a drainage catheter now in place projecting inferior posterior to the liver and then into the left upper quadrant. This is not located in the large fluid collection anterior to the left lobe of the liver. Other: PICC line is seen entering from the right. Tip of the catheter projects in the superior vena cava. NG tube is in place directed into the right side of the stomach. IMPRESSION: No evidence of pulmonary embolus. Enlarging left pleural effusion now moderate in size with dense consolidation in the adjacent pulmonary parenchyma likely representing atelectasis. Pneumonia needs clinical exclusion. There is now minimal effusion present on the right with adjacent atelectasis. Large fluid collection now seen anterior to the left lobe of the liver. Bubbles of gas are also visualized. This large fluid collection was not seen earlier today. A drainage catheter now appears to be in place entering the right upper quadrant although extending inferior to the liver and into the left upper quadrant and is not located in the fluid collection. This may have been present on the prior study although was not included on the CT scan. Small amount of free intraperitoneal gas is visualized. The amount of free intraperitoneal gas appears to have decreased since earlier today. Given the enlarging fluid collection without apparent source is worrisome for leaking viscus. Critical value: These findings were discussed in detail with ESTHER Echols on 04/09/2018 at 10:24 p.m. she informs me the attending physician will be notified immediately. Eastern standard time
[2018-04-09] MEDS: ZOFRAN IV PRN (22:40)
[2018-04-09 22:56] LABS: Basophils % (Manual) 0 % (0.0-1.8); Eosinophils % (Manual) 0 % (0.0-4.3); Total Cells Counted 100
[2018-04-09 22:57] LABS: Anisocytosis 1+; Platelet Estimate Consistent w Auto; Poikilocytosis 1+
[2018-04-10 04:45] LABS: Hematocrit 28.9 % (30.3-42.9); Hemoglobin 9.4 gm/dl (10.1-14.3); Mean Corpuscular HGB Conc 33 % (30-34); Mean Corpuscular Hemoglobin 28 pg (28-32); Mean Corpuscular Volume 86 fl (79-97); Platelet Count 266 K/mm3 (140-440); Red Blood Count 3.38 M/mm3 (3.65-5.03); Red Cell Distribution Width 14.7 % (13.2-15.2)
[2018-04-10 05:08] LABS: BUN/Creatinine Ratio 10; Blood Urea Nitrogen 6 mg/dL (7-17); Calcium 7.7 mg/dL (8.4-10.2); Hemolysis Index 1
[2018-04-10] MEDS: DILAUDID IV PRN ×2 (05:17→21:16)
[2018-04-10 06:04] LABS: Band Neutrophils # (Manual) 7.7 K/mm3; Total Cells Counted 100
[2018-04-10 06:05] LABS: Anisocytosis 1+; Basophils % (Manual) 0 % (0.0-1.8); Platelet Estimate Consistent w Auto
[2018-04-10] MEDS: PROVENTIL IH PRN ×2 (06:59→12:18)
[2018-04-10] MEDS: BROVANA NEBU IH SCH ×2 (09:01→20:42)
[2018-04-10] MEDS: PULMICORT IH SCH ×2 (09:01→20:42)
[2018-04-10] MEDS: PROTONIX IV SCH (09:06)
[2018-04-10] MEDS: SODIUM CHLORIDE FLUSH SYRINGE 10 ML IV SCH ×2 (09:07→22:41)
--- NOTE | 2018-04-10 10:13 | Progress Note ---
Assessment and Plan 58 y.o. f s/p lap sleeve gastrectomy with hiatal hernia repair and partial fundoplication 03/30, presents to ER with abdominal pain, now s/p dx lap, abdominal washout, repair of gastric perforation and placement of drains pod 3 Neuro: dilualdid, morphien prn. toradol for pain control. Ativan prn for agitation for hx of anxiety -improved mentation compared to yesterday but still not at base line. She still remains confused at times Cardio: Tachycardia:likely related to fluid collection intrabdominal hx of HTN: hold meds for now Pulm: danish Sen pulmicort. Appreciate pulmonary consult -IS CXr 04/09: left effusion, cardiomeg. no pulm congestion -if pt does is unable to perform using the IS she may need manual resp. therapy CT chest: no PE GI: npo, NG to low wall intermit. sunction. No manipulation of NG. NO ice chips no meds. monitor drain output -CT abd/pelvis: fluid collection anterior to liver, leak persistent. IR to place drain Nutrition: PIcc line for tpn. -monitor lytes ID: gastric perf. f/u cultures from OR. zosyn and diflucan -umbilical incision: change packing daily -prelim: gram neg rods -ID consult /Lytes: f/u am labs. monitor urine out. DVT proph: lovenox started scds GI proph: protonix Out of bed to chair Subjective Narrative: Overnight patient's tachycardia continued. Ct chst to r/o PE was performed. NO PE but large fluid collection upper abdomen was noted. this am pt has sob and upper abdominal pain. Denies nausea or vomiting . Picc line placed yesterday and tpn started late in evening. tmax 101.4 KRISTI R minimal green output KRISTI L minimal serosang output NG minima bilious output urine output: 1025cc/24hrs. Objective Vital Signs - 12hr 04/09/18 04/09/18 04/10/18 23:15 23:39 00:00 Temperature 101.4 F H Pulse Rate 119 H Pulse Rate [ Anterior Bilateral] Pulse Rate [ Posterior Bilateral] Pulse Rate [ Right Radial] Respiratory 32 H 30 H Rate Respiratory Rate [Anterior Bilateral] Respiratory Rate [Posterior Bilateral] O2 Sat by Pulse 97 98 Oximetry 04/10/18 04/10/1804/10/18 02:00 03:03 04:21 Temperature 99.8 F H Pulse Rate Pulse Rate [ Anterior Bilateral] Pulse Rate [ Posterior Bilateral] Pulse Rate [ Right Radial] Respiratory 22 Rate Respiratory Rate [Anterior Bilateral] Respiratory Rate [Posterior Bilateral] O2 Sat by Pulse 98 98 Oximetry 04/10/18 04/10/18 04/10/18 04:46 06:50 07:00 Temperature Pulse Rate 106 H Pulse Rate [ 110 H 118 H Anterior Bilateral] Pulse Rate [ Posterior Bilateral] Pulse Rate [ Right Radial] Respiratory 30 H Rate Respiratory 32 H 24 Rate [Anterior Bilateral] Respiratory Rate [Posterior Bilateral] O2 Sat by Pulse 98 Oximetry 04/10/18 04/10/18 04/10/18 08:00 09:03 09:10 Temperature 98.7 F Pulse Rate Pulse Rate [ Anterior Bilateral] Pulse Rate [ 110 H 109 H Posterior Bilateral] Pulse Rate [ 111 H Right Radial] Respiratory 26 H Rate Respiratory Rate [Anterior Bilateral] Respiratory 19 25 H Rate [Posterior Bilateral] O2 Sat by Pulse 98 98 Oximetry - General physical appearance well developed, well nourished, moderate distress - ENT other (NG in place. ) - Respiratory wheezing: bilateral (shallow bl breath sounds. ) - Abdomen other (distended tender epigatric area. hypoactive bs. vol. guarding. no rebound. KRISTI R: bilous, KRISTI L serosang. ) - Integumentary no rash - Neurologic normal coordination, normal sensation, disoriented, other (Slow to speak, sob with talking, Alert to place but not to time and person. ) - Musculoskeletal other (MS: +5/5 upper and Lower extremities bl ) - Additional Exam Lower extremities: no edema. - Labs 04/11/18 03:35 04/11/18 03:35 Diabetes panel 04/09/18 04/10/18 Range/Units 21:45 04:07 Sodium 142 143 (137-145) mmol/L Potassium 3.7 4.0 (3.6-5.0) mmol/L Chloride 105.5 106.8 (98-107) mmol/L Carbon Dioxide 25 24 (22-30) mmol/L BUN 5 L 6 L (7-17) mg/dL Creatinine 0.5 L 0.6 L (0.7-1.2) mg/dL Glucose 134 H 176 H (65-100) mg/dL Calcium 7.9 L 7.7 L (8.4-10.2) mg/dL Calcium panel 04/09/18 04/10/18 Range/Units 21:45 04:07 Calcium 7.9 L 7.7 L (8.4-10.2) mg/dL Phosphorus 2.20 L D 3.60 D (2.5-4.5) mg/dL Pituitary panel 04/09/18 04/10/18 Range/Units 21:45 04:07 Sodium 142 143 (137-145) mmol/L Potassium 3.7 4.0 (3.6-5.0) mmol/L Chloride 105.5 106.8 (98-107) mmol/L Carbon Dioxide 25 24 (22-30) mmol/L BUN 5 L 6 L (7-17) mg/dL Creatinine 0.5 L 0.6 L (0.7-1.2) mg/dL Glucose 134 H 176 H (65-100) mg/dL Calcium 7.9 L 7.7 L (8.4-10.2) mg/dL Adrenal panel 04/09/18 04/10/18 Range/Units 21:45 04:07 Sodium 142 143 (137-145) mmol/L Potassium 3.7 4.0 (3.6-5.0) mmol/L Chloride 105.5 106.8 (98-107) mmol/L Carbon Dioxide 25 24 (22-30) mmol/L BUN 5 L 6 L (7-17) mg/dL Creatinine 0.5 L 0.6 L (0.7-1.2) mg/dL Glucose 134 H 176 H (65-100) mg/dL Calcium 7.9 L 7.7 L (8.4-10.2) mg/dL
[2018-04-10] MEDS ORDERED: LASIX ONE (11:11)
[2018-04-10] MEDS: TORADOL IV SCH ×3 (12:07→23:47)
[2018-04-10] MEDS: VASOTEC IV SCH ×3 (12:31→23:46)
--- NOTE | 2018-04-10 12:33 | Progress Note ---
Assessment and Plan Sepsis with altered mental status in the setting of the systemic inflammatory response syndrome. Perforated abdominal viscus status post exploratory laparotomy and repair. Obesity. Pleural effusion Bilateral lower lobe infiltrates Obstructive sleep apnea according to the history. Acute encephalopathy, presumably toxic metabolic. History of hypertension. Arthritis. Gastroesophageal reflux disease. Morbid obesity. Acute hypoxemic respiratory failure Leukocytosis - continue supplemental oxygen to keep sats > 90% -get ABG and CXR -Monitor effusion, may need drainage - BIPAP now for increased work of breathing an dto recruit alveoli -Incentive spirometry and airway expansion measures -Discontinue IVF -Gentle diuresis while monitoring hemodynamics, electrolyte profile and renal function -bronchodilators( short acting bronchodilators, scheduled) -Follow up CXR to evaluate pleural effusion in the next 48 hours -Antibiotics per ID( peritoneal fluid cultures +for GNR) -Monitor fever curve and trend WCC -IR for percutaneous drainage of intra-abdominal fluid collection - continue TPN - PT/OT evaluate and treat - continue GI & VTE prophylaxis - wound care per WCT / RN and surgeon - continue other care per attending / other consultants Discussed with surgery service, interventional radiology Discussed care plan with RT and RN, updated patient and her niece who was at the bedside Subjective Date of service: 04/10/18 Principal diagnosis: Sepsis Syndrome; Acute Hypoxemic Resp Failure; Acute Encephalopathy Interval history: Sepsis Syndrome; Acute Hypoxemic Resp Failure; Acute Encephalopathy Seen and examined at bedside; 24hour events reviewed; nursing and respiratory care staff consulted; no adverse overnight events reported to me; resting in bed ; much more appropriate mentally; No N/V/F/C; remains off vasopressors; , now tachypnic with use of accessory muscles, worsening clinical status. Discussed with surgeon. CTA reviewed...No PE, bilaterally lower lobe infitrates(L>R), left pleural effusion CT abdomen/Pelvis.... Free intraperitoneal gas, large amount of fluid anterior to the lower lobe of the liver Objective - Exam Narrative Exam: General appearance: Alert in mild respiratory distress Eyes: anicteric sclerae, moist conjunctivae; no lid-lag; PERRLA HENT: Atraumatic; oropharynx ,NGT Neck: Trachea midline; supple, no thyromegaly or lymphadenopathy Lungs: Decreased AE bilaterally with coarse breath sounds/rhonchi CV:Tachycardia, S1,S2, no murmurs, gallops or rubs Abdomen: Obese, Soft, midline surgical wound covered with dressings drain in place KRISTI R minimal green output KRISTI L minimal sero-sanguineous output Extremities: No peripheral edema or extremity lymphadenopathy Skin: Normal temperature, turgor and texture; no rash, ulcers or subcutaneous nodules Psych: Appropriate affect, alert and oriented to person, place and time. Neuro: alert and oriented x 3. Moving all extermities Lines: right PICC, staton Vital Signs - 12hr 04/10/18 04/10/18 04/10/18 02:00 03:03 04:21 Temperature 99.8 F H Pulse Rate Pulse Rate [ Anterior Bilateral] Pulse Rate [ Posterior Bilateral] Pulse Rate [ Right Radial] Respiratory 22 Rate Respiratory Rate [Anterior Bilateral] Respiratory Rate [Posterior Bilateral] O2 Sat by Pulse 98 98 Oximetry 04/10/18 04/10/18 04/10/18 04:46 06:50 07:00 Temperature Pulse Rate 106 H Pulse Rate [ 110 H 118 H Anterior Bilateral] Pulse Rate [ Posterior Bilateral] Pulse Rate [ Right Radial] Respiratory 30 H Rate Respiratory 32 H 24 Rate [Anterior Bilateral] Respiratory Rate [Posterior Bilateral] O2 Sat by Pulse 98 Oximetry 04/10/18 04/10/18 04/10/18 08:00 09:03 09:10 Temperature 98.7 F Pulse Rate Pulse Rate [ Anterior Bilateral] Pulse Rate [ 110 H 109 H Posterior Bilateral] Pulse Rate [ 111 H Right Radial] Respiratory 26 H Rate Respiratory Rate [Anterior Bilateral] Respiratory 19 25 H Rate [Posterior Bilateral] O2 Sat by Pulse 98 98 Oximetry 04/10/18 04/10/18 04/10/18 10:00 12:19 12:20 Temperature Pulse Rate 112 H Pulse Rate [ Anterior Bilateral] Pulse Rate [ 120 H 126 H Posterior Bilateral] Pulse Rate [ 111 H Right Radial] Respiratory 26 H Rate Respiratory Rate [Anterior Bilateral] Respiratory 38 H 22 Rate [Posterior Bilateral] O2 Sat by Pulse 98 Oximetry Constitutional: appears uncomfortable, other (elderly AAF , normocephalic and atraumatic resting in bed with mildly increased work of breathing) Eyes: non-icteric ENT: oropharynx moist, other (no thyromegaly) Neck: supple, no lymphadenopathy, no JVD, other (large neck circumference) Effort: mildly labored Ascultation: Bilateral: diminished breath sounds, rhonchi (scant in bases) Percussion: Bilateral: not dull Cardiovascular: regular rate and rhythm, other (No R/M) Gastrointestinal: hypoactive bowel sounds, soft, tender (around operative site) , non-distended, other (no palpable HSM) Integumentary: normal Extremities: no cyanosis, no edema, pulses normal, no ischemia or petechiae Neurologic: non-focal exam (grossly), pupils equal and round, CN II-XII normal, motor strength normal and, other (somnolent) Psychiatric: mood appropriate, affect normal CBC and BMP: 04/10/18 18:28 04/10/18 18:28 ABG, PT/INR, D-dimer: ABG POC ABG pH 7.494 (7.35-7.45) H 04/09/18 13:38 POC ABG pCO2 31.6 (35-45) L 04/09/18 13:38 POC ABG pO2 68 (80-105) L 04/09/18 13:38 POC ABG HCO3 24.3 04/09/18 13:38 POC ABG Total CO2 25 04/09/18 13:38 POC ABG O2 Sat 95 04/09/18 13:38 PT/INR, D-dimer PT 13.5 Sec. (12.2-14.9) 04/07/18 09:41 INR 0.98 (0.87-1.13) 04/07/18 09:41 Abnormal lab findings: Abnormal Labs 04/07/18 04/07/18 04/07/18 00:05 00:05 09:41 WBC 18.4 H 21.3 H RBC Hgb Hct MCHC Lymph % (Auto) 4.5 L Lymph # 0.8 L [place] # 1.2 H Seg Neutrophils % 88.9 H Seg Neuts % (Manual) 85.0 H Lymphocytes % (Manual) 4.0 L Nucleated RBC % Seg Neutrophils # 16.4 H Seg Neutrophils # Man 18.1 H Lymphocytes # (Manual) 0.9 L Monocytes # (Manual) 1.1 H POC ABG pH POC ABG pCO2 POC ABG pO2 Potassium Chloride Carbon Dioxide BUN Creatinine Glucose 123 H POC Glucose Calcium 8.0 L Phosphorus Magnesium 1.60 L AST 59 H C-Reactive Protein Total Protein Albumin 2.9 L Urine WBC (Auto) 04/07/18 04/08/18 04/08/18 09:41 00:20 10:25 WBC 19.2 H RBC Hgb Hct MCHC Lymph % (Auto) 5.4 L Lymph # 1.0 L [place] # 1.1 H Seg Neutrophils % 88.9 H Seg Neuts % (Manual) Lymphocytes % (Manual) Nucleated RBC % Seg Neutrophils # 17.1 H Seg Neutrophils # Man Lymphocytes # (Manual) Monocytes # (Manual) POC ABG pH POC ABG pCO2 POC ABG pO2 Potassium 3.3 L Chloride 95.1 L Carbon Dioxide 21 L BUN Creatinine Glucose 113 H POC Glucose Calcium Phosphorus Magnesium AST C-Reactive Protein Total Protein Albumin 3.6 L Urine WBC (Auto) 45.0 H 04/08/18 04/08/18 04/08/18 10:25 13:33 23:53 WBC 12.8 H RBC Hgb Hct MCHC Lymph % (Auto) Lymph # [place] # Seg Neutrophils % Seg Neuts % (Manual) 97.0 H Lymphocytes % (Manual) 2.0 L Nucleated RBC % Seg Neutrophils # Seg Neutrophils # Man 12.4 H Lymphocytes # (Manual) 0.3 L Monocytes # (Manual) POC ABG pH POC ABG pCO2 POC ABG pO2 Potassium 3.5 L Chloride Carbon Dioxide BUN Creatinine Glucose 123 H POC Glucose Calcium 7.9 L Phosphorus Magnesium AST 53 H C-Reactive Protein 52.00 H Total Protein 6.1 L Albumin 2.7 L Urine WBC (Auto) 04/09/18 04/09/18 04/09/18 04:20 04:20 13:38 WBC 16.2 H RBC Hgb Hct MCHC Lymph % (Auto) Lymph # [place] # Seg Neutrophils % Seg Neuts % (Manual) 89.0 H Lymphocytes % (Manual) 4.0 L Nucleated RBC % Seg Neutrophils # Seg Neutrophils # Man 14.4 H Lymphocytes # (Manual) 0.6 L Monocytes # (Manual) POC ABG pH 7.494 H POC ABG pCO2 31.6 L POC ABG pO2 68 L Potassium 3.5 L Chloride Carbon Dioxide BUN Creatinine 0.6 L Glucose 117 H POC Glucose Calcium 7.9 L Phosphorus 1.50 L D Magnesium AST C-Reactive Protein Total Protein 5.6 L Albumin 2.9 L Urine WBC (Auto) 04/09/18 04/09/18 04/09/18 21:45 21:45 23:38 WBC 21.3 H RBC 3.62 L Hgb Hct MCHC 35 H Lymph % (Auto) Lymph # [place] # Seg Neutrophils % Seg Neuts % (Manual) 90.0 H Lymphocytes % (Manual) 6.0 L Nucleated RBC % 1.0 H Seg Neutrophils # Seg Neutrophils # Man 19.2 H Lymphocytes # (Manual) Monocytes # (Manual) 0.9 H POC ABG pH POC ABG pCO2 POC ABG pO2 Potassium Chloride Carbon Dioxide BUN 5 L Creatinine 0.5 L Glucose 134 H POC Glucose 160 H Calcium 7.9 L Phosphorus 2.20 L D Magnesium AST C-Reactive Protein Total Protein Albumin Urine WBC (Auto) 04/10/18 04/10/18 04/10/18 04:07 04:07 05:29 WBC 20.2 H RBC 3.38 L Hgb 9.4 L Hct 28.9 L MCHC Lymph % (Auto) Lymph # [place] # Seg Neutrophils % Seg Neuts % (Manual) Lymphocytes % (Manual) 6.0 L Nucleated RBC % Seg Neutrophils # Seg Neutrophils # Man 10.7 H Lymphocytes # (Manual) Monocytes # (Manual) POC ABG pH POC ABG pCO2 POC ABG pO2 Potassium Chloride Carbon Dioxide BUN 6 L Creatinine 0.6 L Glucose 176 H POC Glucose 171 H Calcium 7.7 L Phosphorus Magnesium AST C-Reactive Protein Total Protein Albumin Urine WBC (Auto) 04/10/18 11:55 WBC RBC Hgb Hct MCHC Lymph % (Auto) Lymph # [place] # Seg Neutrophils % Seg Neuts % (Manual) Lymphocytes % (Manual) Nucleated RBC % Seg Neutrophils # Seg Neutrophils # Man Lymphocytes # (Manual) Monocytes # (Manual) POC ABG pH POC ABG pCO2 POC ABG pO2 Potassium Chloride Carbon Dioxide BUN Creatinine Glucose POC Glucose 194 H Calcium Phosphorus Magnesium AST C-Reactive Protein Total Protein Albumin Urine WBC (Auto) Allied health notes reviewed: RT (Start BIPAP, ANTHONY) Critical care time in (mins) excluding proc time.: 35 Critical care attestation.: If time is entered above; I have spent that time in minutes in the direct care of this critically ill patient, excluding procedure time.
[2018-04-10] MEDS ORDERED: SUBLIMAZE ONE (13:35)
[2018-04-10] MEDS ORDERED: VERSED IV ONE ×2 (13:35→15:35)
--- NOTE | 2018-04-10 14:19 | Consultation ---
History of Present Illness - Reason for Consult Consult date: 04/10/18 Sepsis / intraabdominal collection Requesting physician: Blanca Wynn - History of Present Illness 58 y.o female with morbid obesity s/p lap sleeve gastrectomy with hiatal hernia repair and partial fundoplication 03/30/18; admitted on 04/07/2019 due to severe abdominal pain, now short of malaise.In the ED, temperature was 98.4, heart rate 120, respirations 22, O2 sat 95, blood pressure 97/60. Initial white count 18.4. Hemoglobin 11.6. Platelets 329. Creatinine 0.8. CRP 52. CT of the abdomen showed pneumoperitoneum with mild ascites and new small pleural effusion. She was taken to the OR for ex lap, abdominal washout, repair of gastric perforation and placement of drains on 04/08/18. Temperature went to 101.4 on 713. Repeat CTA showed no PE however increase in left pleural effusion with dense consolidation consistent with atelectasis and a large fluid collection 14 x 4.7 cm in the left lobe of the fever with air bubbles. Microbiology: Blood cultures: 04/07 ngtd Peritoneal cultures: 04/07 GNR x 2 Current Antimicrobials: Zosyn Fluconazole Previous Antimicrobials: Past History Past Medical History: hypertension, other (sleep apnea, morbid obesity ) Past Surgical History: Other (rigth hand ganglion cyst removal, hysterectomy, Left knee replacement, right knee replacement, back surgery, lap sleeve gastrectomy with hiatal hernia repair and parital fundoplication) Social history: other (former smoker- last 1989) Family history: no significant family history Medications and Allergies Allergies Allergy/AdvReac Type Severity Reaction Status Date / Time No Known Allergies Allergy Unverified 03/16/18 11:09 Home Medications Medication Instructions Recorded Confirmed Last Taken Type Budesonide/Formoterol Fumarate 2 puff INHALATION BID 03/26/18 04/09/18 03/26/18 History [Symbicort 160-4.5 Mcg Inhaler] Bupropion HCl [Wellbutrin XL] 300 mg PO QAM 03/26/18 04/09/18 03/28/18 History Gabapentin [Neurontin] 400 mg PO TID 03/26/18 04/09/18 03/29/18 History LORazepam [Ativan] 1 mg PO BID PRN 03/26/18 04/09/18 03/29/18 History Linaclotide [Linzess] 145 mcg PO QAM 03/26/18 04/09/18 03/29/18 History Dexlansoprazole (Nf) [Dexilant 60 mg PO QAM 03/30/18 04/09/18 03/28/18 History (Cecilia)] HYDROcodone/APAP 7.5-325 [[place] 1 each PO Q12H PRN 04/07/18 04/09/18 Unknown History 7.5/325] Active Meds: Active Medications Acetaminophen (Tylenol) 650 mg NJ Q6H PRN PRN Reason: Fever >101 Last Admin: 04/09/18 19:00 Dose: 650 mg Albuterol (Proventil) 2.5 mg IH Q4HRT PRN PRN Reason: Shortness Of Breath Last Admin: 04/10/18 12:18 Dose: 2.5 mg Arformoterol Tartrate (Brovana Nebu) 15 mcg IH Q12HRT JULIETTE Last Admin: 04/10/18 09:01 Dose: 15 mcg Budesonide (Pulmicort) 0.5 mg IH Q12HRT JULIETTE Last Admin: 04/10/18 09:01 Dose: 0.5 mg Enalaprilat (Vasotec) 1.25 mg IV Q6HR JULIETTE Last Admin: 04/10/18 12:31 Dose: 1.25 mg Enoxaparin Sodium (Lovenox) 40 mg SUB-Q QDAY@2200 JULIETTE Last Admin: 04/09/18 22:27 Dose: 40 mg Hydralazine HCl (Apresoline) 20 mg IV Q6H PRN PRN Reason: Hypertension Last Admin: 04/08/18 22:32 Dose: 20 mg Hydromorphone HCl (Dilaudid) 0.5 mg IV Q3H PRN PRN Reason: Pain , Severe (7-10) Last Admin: 04/10/18 05:17 Dose: 0.5 mg Piperacillin Sod/Tazobactam Sod (Zosyn/Ns 4.5gm/100ml) 4.5 gm in 100 mls @ 200 mls/hr IV Q8H JULIETTE; Protocol Last Admin: 04/09/18 11:20 Dose: 200 mls/hr Amino Acids/Electrolytes/Dextrose (Tpn Adult) 2,016 mls @ 84 mls/hr IV DAILY@ 1999 [facility]; Protocol Stop: 04/10/18 19:59 Last Admin: 04/09/18 22:26 Dose: 84 mls/hr Fluconazole (Diflucan) 200 mg in 100 mls @ 50 mls/hr IV 2199 [facility] Amino Acids/Electrolytes/Dextrose (Tpn Adult) 2,016 mls @ 84 mls/hr IV DAILY@ 1999 [facility]; Protocol Stop: 04/11/18 19:59 Ketorolac Tromethamine (Toradol) 30 mg IV Q6HR [facility] Stop: 04/13/18 11:59 Last Admin: 04/10/18 12:07 Dose: 30 mg Lorazepam (Ativan) 1 mg IV BID PRN PRN Reason: Agitation Last Admin: 04/09/18 22:28 Dose: 1 mg Ondansetron HCl (Zofran) 4 mg IV Q8H PRN PRN Reason: Nausea And Vomiting Last Admin: 04/09/18 22:40 Dose: 4 mg Pantoprazole Sodium (Protonix) 40 mg IV QDAY [facility] Last Admin: 04/10/18 09:06 Dose: 40 mg Phenol (Chloraseptic) 2 spray MM PRN PRN PRN Reason: Sore Throat Last Admin: 04/09/18 02:16 Dose: 2 spray Sodium Chloride (Sodium Chloride Flush Syringe 10 Ml) 10 ml IV BID [facility] Last Admin: 04/10/18 09:07 Dose: 10 ml Sodium Chloride (Sodium Chloride Flush Syringe 10 Ml) 10 ml IV PRN PRN PRN Reason: LINE FLUSH Review of Systems All systems: negative (unable to obtain patient's shortness of breath) Physical Examination - Physical Exam Narrative exam: General appearance: Alert in mild shortness of breath NC O2 Eyes: anicteric sclerae, moist conjunctivae; no lid-lag; PERRLA HENT: Atraumatic; oropharynx NGT Neck: Trachea midline; supple, no thyromegaly or lymphadenopathy Lungs: CTA CV: RRR Abdomen: Obese, Soft, midline surgical wound covered with dressings drain in place KRISTI R minimal green output KRISTI L minimal serosang output Extremities: No peripheral edema or extremity lymphadenopathy Skin: Normal temperature, turgor and texture; no rash, ulcers or subcutaneous nodules Psych: Appropriate affect, alert and oriented to person, place and time. Neuro: alert and oriented x 3. Moving all extermities Lines: right PICC, staton - Constitutional Vitals: Vital Signs Temp Pulse Resp BP Pulse Ox 100.2 F H 128 H 22 168/94 98 04/10/18 12:00 04/10/18 12:31 04/10/18 12:20 04/10/18 12:31 04/10/18 12:00 Temperature -Last 24 Hours Temperature 100.2 F Temperature 98.7 F Temperature 99.8 F Temperature 101.4 F Temperature 100.3 F Results - Labs CBC & Chem 7: 04/10/18 04:07 04/10/18 04:07 Labs: Abnormal lab results 04/09/18 04/09/18 04/09/18 Range/Units 21:45 21:45 23:38 WBC 21.3 H (4.5-11.0) K/mm3 RBC 3.62 L (3.65-5.03) M/mm3 Hgb (10.1-14.3) gm/dl Hct (30.3-42.9) % MCHC 35 H (30-34) % Seg Neuts % (Manual) 90.0 H (40.0-70.0) % Lymphocytes % (Manual) 6.0 L (13.4-35.0) % Nucleated RBC % 1.0 H (0.0-0.9) % Seg Neutrophils # Man 19.2 H (1.8-7.7) K/mm3 Monocytes # (Manual) 0.9 H (0.0-0.8) K/mm3 POC ABG pH (7.35-7.45) POC ABG pCO2 (35-45) POC ABG pO2 (80-105) BUN 5 L (7-17) mg/dL Creatinine 0.5 L (0.7-1.2) mg/dL Glucose 134 H (65-100) mg/dL POC Glucose 160 H (70-105) Calcium 7.9 L (8.4-10.2) mg/dL Phosphorus 2.20 L D (2.5-4.5) mg/dL 04/10/18 04/10/18 04/10/18 Range/Units 04:07 04:07 05:29 WBC 20.2 H (4.5-11.0) K/mm3 RBC 3.38 L (3.65-5.03) M/mm3 Hgb 9.4 L (10.1-14.3) gm/dl Hct 28.9 L (30.3-42.9) % MCHC (30-34) % Seg Neuts % (Manual) (40.0-70.0) % Lymphocytes % (Manual) 6.0 L (13.4-35.0) % Nucleated RBC % (0.0-0.9) % Seg Neutrophils # Man 10.7 H (1.8-7.7) K/mm3 Monocytes # (Manual) (0.0-0.8) K/mm3 POC ABG pH (7.35-7.45) POC ABG pCO2 (35-45) POC ABG pO2 (80-105) BUN 6 L (7-17) mg/dL Creatinine 0.6 L (0.7-1.2) mg/dL Glucose 176 H (65-100) mg/dL POC Glucose 171 H (70-105) Calcium 7.7 L (8.4-10.2) mg/dL Phosphorus (2.5-4.5) mg/dL 04/10/18 04/10/18 Range/Units 11:55 12:59 WBC (4.5-11.0) K/mm3 RBC (3.65-5.03) M/mm3 Hgb (10.1-14.3) gm/dl Hct (30.3-42.9) % MCHC (30-34) % Seg Neuts % (Manual) (40.0-70.0) % Lymphocytes % (Manual) (13.4-35.0) % Nucleated RBC % (0.0-0.9) % Seg Neutrophils # Man (1.8-7.7) K/mm3 Monocytes # (Manual) (0.0-0.8) K/mm3 POC ABG pH 7.519 H (7.35-7.45) POC ABG pCO2 29.3 L (35-45) POC ABG pO2 63 L (80-105) BUN (7-17) mg/dL Creatinine (0.7-1.2) mg/dL Glucose (65-100) mg/dL POC Glucose 194 H (70-105) Calcium (8.4-10.2) mg/dL Phosphorus (2.5-4.5) mg/dL Assessment and Plan Assessment: 1) Sepsis: Present on admission, manifested by tachycardia, hypotension, leukocytosis. Etiology most likely perf / intra-abdominal collection 2) Gastric perf and intra-abdominal fluid collection -S/P OR for ex lap, abdominal washout, repair of gastric perforation and placement of drains on 04/08/18 -04/07 peritoneal fluid + GNR x 2 -Repeat CTA 04/09 showed no PE however increase in left pleural effusion with dense consolidation consistent with atelectasis and a large fluid collection 14 x 4.7 cm in the left lobe of the fever with air bubbles. -CRP=52 3) S/P lap sleeve gastrectomy with hiatal hernia repair and partial fundoplication 03/30/18 4) Presumed pnemonia vs. atelectasis Plan: -repeat blood cultures and CRP -continue zosyn and fluconazole for now -add vanco to cover HAP -f/u peritoneal cx -if continues with fever will change zosyn to meropenem I am rounding on 04/12 Thank you for your consultation, will follow up with you. Katerin Cross MD Infectious Diseases Specialist [facility] ([facility] M [phone] O [phone]
[2018-04-10] MEDS ORDERED: VANCOMYCIN VIAL 1,000 MG in NACL 0.9% 100 ML IV SCH (15:00)
[2018-04-10] MEDS ORDERED: VANCOMYCIN PHARMACY TO DOSE IV SCH (15:00)
[2018-04-10] MEDS ORDERED: SUBLIMAZE IV ONE (15:35)
[2018-04-10] MEDS ORDERED: VANCOMYCIN 1,750 MG in NACL 0.9% 500 ML 500 ML IV ONE (16:00)
--- NOTE | 2018-04-10 16:14 | Post Operative Note ---
Date of procedure: 04/10/18 Pre-op diagnosis: Abdominal fluid collection Post-op diagnosis: same Findings: 180 mL green serous fluid, possible gastric fluid Procedure: 10 Fr APD drain placement in the abdominal fluid collection Anesthesia: local Surgeon: KARRI ROWLEY Estimated blood loss: minimal Specimen disposition: to lab Condition: stable Disposition: ICU
[2018-04-10] MEDS: ATIVAN IV PRN (17:18)
[2018-04-10 19:27] LABS: Hematocrit 30.8 % (30.3-42.9); Hemoglobin 10.1 gm/dl (10.1-14.3); Mean Corpuscular HGB Conc 33 % (30-34); Mean Corpuscular Hemoglobin 28 pg (28-32); Mean Corpuscular Volume 85 fl (79-97); Platelet Count 281 K/mm3 (140-440); Red Blood Count 3.62 M/mm3 (3.65-5.03); Red Cell Distribution Width 14.7 % (13.2-15.2)
[2018-04-10 19:42] LABS: BUN/Creatinine Ratio 10; Blood Urea Nitrogen 5 mg/dL (7-17); Calcium 8.3 mg/dL (8.4-10.2); Hemolysis Index 0
[2018-04-10] MEDS ORDERED: TPN ADULT 2,016 ML IV SCH (20:00)
[2018-04-10] MEDS: ZOSYN/NS 4.5GM/100ML 4.5 GM/100 ML VIAL IV SCH (20:41)
[2018-04-10 21:07] LABS: Basophils % (Manual) 0 % (0.0-1.8); RBC Morphology Normal; Total Cells Counted 100
[2018-04-10] MEDS ORDERED: DIFLUCAN 200 MG/100 ML BAG IV SCH (22:00)
[2018-04-10] MEDS: DIFLUCAN 200 MG/100 ML BAG IV SCH ×2 (22:45)
[2018-04-10] MEDS: LOVENOX SUB-Q SCH (22:53)
--- NOTE | 2018-04-10 23:53 | Cat Scan Report ---
FINAL REPORT PROCEDURE: CT ABDOMEN PELVIS WO CON TECHNIQUE: Computerized axial tomography of the abdomen and pelvis was performed without intravenous contrast. This study is performed without intravascular contrast material and its sensitivity for abdominal and pelvic pathology, including neoplasms, inflammation, abscess, free fluid, thrombosis, arterial dissection and infarction, is reduced compared with a contrast enhanced study. HISTORY: ascites COMPARISON: Prior CT scan abdomen and pelvis 04/01/[address] scan of the chest 04/09/2018 FINDINGS: Lower Lung [place]: There is a moderate size left pleural effusion with adjacent consolidation in the left lower lobe suggesting pneumonia or atelectasis. The effusion appears to be slightly smaller than it was on the prior study 04/09/2018. Small right pleural effusion is again visualized without significant interval change. Small amount of adjacent atelectasis appears be present. An NG tube appears to be in place directed into the right side of the stomach Upper Abdomen: A drainage catheter is visualized entering through the right upper quadrant projecting along the anterior inferior aspect of the liver towards the left upper quadrant. A large fluid collection containing a few bubbles of gas is visualized anterior to the left lobe of the liver. This has not changed significantly in size compared to the prior CT scan of the chest. This measures approximately 13 centimeters x 5 centimeters. Gallbladder showed no focal abnormality. Small amount of fluid is collected along the edges of the liver extending into the right pericolonic gutter and leaves of the mesentery in the mid and lower pelvis. The liver is otherwise unremarkable. The adrenal glands, the pancreas and the spleen are unremarkable. A 2nd drainage catheter enters left upper quadrant directed towards the edge of the spleen. Small amount of fluid in bubbles of gas are seen right lateral abdominal wall the fluid in gas in this location are new compared to the prior study performed on 04/01/2018 Kidneys, Ureters and Urinary bladder: Kidneys ureters and urinary bladder are unremarkable. Retroperitoneum: Atherosclerotic changes are seen in the abdominal aorta. No aneurysm is visualized. Nonspecific subcentimeter lymph nodes are seen in the retroperitoneum. No pathologically enlarged lymph nodes are identified. Bowel: Diverticulosis seen in the left side of the colon without evidence of diverticulitis. Minimal scattered free intraperitoneal gas is again visualized. The volume of free intraperitoneal gas is decreased. No evidence of bowel obstruction. Reproductive organs: Uterus is surgically absent. No abnormal adnexal masses are seen. Other: Postsurgical changes are seen in the lumbar sacral spine from prior fusion procedure. No acute bony abnormalities are identified. There appears to be a wound in the lower abdomen in the midline. This may be closing by secondary intention. IMPRESSION: Surgical drains are visualized in the upper abdomen however large fluid collection containing bubbles of gas anterior to the left lobe of the liver remains without significant interval change. An abscess in this location cannot be excluded. Small amount of ascites is seen extending into the pericolonic gutters, posterior inferior pelvis and leaves of the mesentery extending into the pelvis. The volume of fluid has increased since the prior CT scan abdomen and pelvis 04/01/2018. Fluid and bubbles of gas seen external surface right upper quadrant laterally. This could represent postsurgical change. I cannot exclude an abscess. This measures 8.3 x 2.7 centimeter and is seen on image 112 series 2. Moderate size left pleural effusion appears to be slightly smaller although has not resolved. Consolidation in the left lower lobe suggest pneumonia or atelectasis. Small right pleural effusion is unchanged.. Prior hysterectomy. Colonic diverticulosis. Postsurgical changes lumbar spine from prior fusion procedure..
[2018-04-11] MEDS: ZOSYN/NS 4.5GM/100ML 4.5 GM/100 ML VIAL IV SCH ×7 (04:04→20:49)
[2018-04-11 04:22] LABS: Hematocrit 30.6 % (30.3-42.9); Mean Corpuscular HGB Conc 33 % (30-34); Mean Corpuscular Hemoglobin 28 pg (28-32); Mean Corpuscular Volume 86 fl (79-97); Platelet Count 287 K/mm3 (140-440); Red Blood Count 3.54 M/mm3 (3.65-5.03); Red Cell Distribution Width 14.6 % (13.2-15.2)
[2018-04-11 04:41] LABS: Alanine Aminotransferase 27 units/L (7-56); Albumin 2.2 g/dL (3.9-5); BUN/Creatinine Ratio 16; Blood Urea Nitrogen 8 mg/dL (7-17); Calcium 8.2 mg/dL (8.4-10.2); Hemolysis Index 10
[2018-04-11] MEDS: PROVENTIL IH PRN (05:25)
[2018-04-11] MEDS: VASOTEC IV SCH ×4 (05:30→17:10)
[2018-04-11] MEDS: TORADOL IV SCH ×5 (05:30→17:09)
[2018-04-11 06:47] LABS: Total Cells Counted 100
[2018-04-11 06:48] LABS: Anisocytosis Few; Band Neutrophils # (Manual) 2.5 K/mm3; Basophils % (Manual) 0 % (0.0-1.8); Eosinophils % (Manual) 0 % (0.0-4.3); Platelet Estimate Appe
[2018-04-11] MEDS: SODIUM CHLORIDE FLUSH SYRINGE 10 ML IV SCH ×3 (07:58→21:33)
[2018-04-11] MEDS: BROVANA NEBU IH SCH ×2 (08:37→19:51)
[2018-04-11] MEDS: PULMICORT IH SCH ×2 (08:37→19:51)
[2018-04-11] MEDS: VANCOMYCIN 1,250 MG in NACL 0.9% 250ML 250 ML IV SCH ×2 (08:42→17:06)
[2018-04-11] MEDS: PROTONIX IV SCH (09:13)
--- NOTE | 2018-04-11 11:34 | Progress Note ---
Assessment and Plan Sepsis with altered mental status in the setting of the systemic inflammatory response syndrome. Perforated abdominal viscus status post exploratory laparotomy and repair. Obesity. Pleural effusion Bilateral lower lobe infiltrates Obstructive sleep apnea according to the history. Acute encephalopathy, presumably toxic metabolic. History of hypertension. Arthritis. Gastroesophageal reflux disease. Morbid obesity. Acute hypoxemic respiratory failure Leukocytosis - continue supplemental oxygen to keep sats > 90% -Monitor effusion, may need drainage - BIPAP now for increased work of breathing QHS and prn -Incentive spirometry and airway expansion measures -Gentle diuresis while monitoring hemodynamics, electrolyte profile and renal function -bronchodilators( short acting bronchodilators, scheduled) -Antibiotics per ID( peritoneal fluid cultures +for GNR) -Monitor fever curve and trend WCC - continue TPN - PT/OT evaluate and treat - continue GI & VTE prophylaxis - wound care per WCT / RN and surgeon - continue other care per attending / other consultants Discussed with surgery service, repeat CT abdomen and pelvis, stool fro C.diff studies Discussed need for chest ultrasound to evaluate pleural effusion and determine need for thoracentesis Discussed care plan with RT and RN, updated patient and her daughter who was at the bedside Subjective Date of service: 04/11/18 Principal diagnosis: Sepsis Syndrome; Acute Hypoxemic Resp Failure; Acute Encephalopathy Interval history: Sepsis Syndrome; Acute Hypoxemic Resp Failure; Acute Encephalopathy Seen and examined at bedside; 24hour events reviewed; nursing and respiratory care staff consulted; no adverse overnight events reported to me; resting in bed ; much more appropriate mentally; No N/V/F/C; remains off vasopressors; , remains tacypnic, mental status much improved. Daughter at the bedside. Patient complains of an episode of vomiting this afternoon, diarrhea nad on going abdominal cramps Discussed with surgeon. Objective - Exam Narrative Exam: General appearance: Alert in mild respiratory distress Eyes: anicteric sclerae, moist conjunctivae; no lid-lag; PERRLA HENT: Atraumatic; oropharynx ,NGT Neck: Trachea midline; supple, no thyromegaly or lymphadenopathy Lungs: Decreased AE bilaterally with coarse breath sounds/rhonchi CV:Tachycardia, S1,S2, no murmurs, gallops or rubs Abdomen: Obese, Soft, midline surgical wound covered with dressings drain in place KRISTI R minimal green output KRISTI L minimal sero-sanguineous output Extremities: No peripheral edema or extremity lymphadenopathy Skin: Normal temperature, turgor and texture; no rash, ulcers or subcutaneous nodules Psych: Appropriate affect, alert and oriented to person, place and time. Neuro: alert and oriented x 3. Moving all extermities Lines: right PICC, staton Vital Signs - 12hr 04/10/18 04/11/18 04/11/18 23:54 00:00 00:30 Temperature 98.9 F Pulse Rate 120 H 118 H Pulse Rate [ 120 H From Monitor] Pulse Rate [ Posterior Bilateral] Respiratory 26 H 32 H Rate Respiratory Rate [Posterior Bilateral] Blood Pressure 167/92 167/92 O2 Sat by Pulse 98 98 Oximetry 04/11/18 04/11/18 04/11/18 01:00 01:30 02:00 Temperature Pulse Rate 116 H 112 H 109 H Pulse Rate [ 108 H From Monitor] Pulse Rate [ Posterior Bilateral] Respiratory 30 H 24 26 H Rate Respiratory Rate [Posterior Bilateral] Blood Pressure 148/75 148/75 137/74 O2 Sat by Pulse 97 98 99 Oximetry 04/11/18 04/11/18 04/11/18 02:30 03:00 03:30 Temperature Pulse Rate 107 H 105 H 108 H Pulse Rate [ From Monitor] Pulse Rate [ Posterior Bilateral] Respiratory 27 H 24 26 H Rate Respiratory Rate [Posterior Bilateral] Blood Pressure 137/74 141/72 141/72 O2 Sat by Pulse 99 98 98 Oximetry 04/11/18 04/11/18 04/11/18 03:55 04:00 04:30 Temperature 99.0 F Pulse Rate 108 H 111 H Pulse Rate [ From Monitor] Pulse Rate [ Posterior Bilateral] Respiratory 30 H 37 H Rate Respiratory Rate [Posterior Bilateral] Blood Pressure 141/72 137/96 O2 Sat by Pulse 97 99 Oximetry 04/11/18 04/11/18 04/11/18 05:00 05:24 05:30 Temperature Pulse Rate 111 H 117 H Pulse Rate [ From Monitor] Pulse Rate [ 113 H Posterior Bilateral] Respiratory 35 H 37 H Rate Respiratory 32 H Rate [Posterior Bilateral] Blood Pressure 156/90 156/90 O2 Sat by Pulse 97 97 Oximetry 04/11/18 04/11/18 04/11/18 06:00 06:30 07:00 Temperature 99.0 F Pulse Rate 120 H 113 H 110 H Pulse Rate [ 116 H From Monitor] Pulse Rate [ Posterior Bilateral] Respiratory 28 H 33 H 27 H Rate Respiratory Rate [Posterior Bilateral] Blood Pressure 156/90 151/81 124/67 O2 Sat by Pulse 97 98 96 Oximetry 04/11/18 04/11/18 04/11/18 07:30 08:00 08:30 Temperature 99.0 F Pulse Rate 107 H 107 H 108 H Pulse Rate [ From Monitor] Pulse Rate [ Posterior Bilateral] Respiratory 26 H 27 H 26 H Rate Respiratory Rate [Posterior Bilateral] Blood Pressure 124/67 119/74 119/74 O2 Sat by Pulse 98 96 98 Oximetry 04/11/18 04/11/18 04/11/18 08:37 08:48 09:00 Temperature Pulse Rate 114 H Pulse Rate [ From Monitor] Pulse Rate [ 110 H 109 H Posterior Bilateral] Respiratory 25 H Rate Respiratory 24 24 Rate [Posterior Bilateral] Blood Pressure 158/95 O2 Sat by Pulse 98 95 Oximetry 04/11/18 04/11/18 04/11/18 09:30 10:00 11:29 Temperature Pulse Rate 113 H 113 H 116 H Pulse Rate [ From Monitor] Pulse Rate [ Posterior Bilateral] Respiratory 38 H 35 H Rate Respiratory Rate [Posterior Bilateral] Blood Pressure 158/95 171/90 166/92 O2 Sat by Pulse 98 98 Oximetry 04/11/18 11:30 Temperature Pulse Rate 116 H Pulse Rate [ From Monitor] Pulse Rate [ Posterior Bilateral] Respiratory Rate Respiratory Rate [Posterior Bilateral] Blood Pressure 166/92 O2 Sat by Pulse Oximetry Constitutional: appears uncomfortable, other (elderly AAF , normocephalic and atraumatic resting in bed with mildly increased work of breathing) Eyes: non-icteric ENT: oropharynx moist, other (no thyromegaly) Neck: supple, no lymphadenopathy, no JVD, other (large neck circumference) Effort: mildly labored Ascultation: Bilateral: diminished breath sounds, rhonchi (scant in bases) Percussion: Bilateral: not dull Cardiovascular: regular rate and rhythm, other (No R/M) Gastrointestinal: hypoactive bowel sounds, soft, tender (genralized but no peritoneal signs), non-distended, other (no palpable HSM) Integumentary: normal Extremities: no cyanosis, no edema, pulses normal, no ischemia or petechiae Neurologic: non-focal exam (grossly), pupils equal and round, CN II-XII normal, motor strength normal and, other (awake, alert, oriented x3) Psychiatric: mood appropriate, affect normal CBC and BMP: 04/15/18 04:42 04/15/18 04:42 ABG, PT/INR, D-dimer: ABG POC ABG pH 7.519 (7.35-7.45) H 04/10/18 12:59 POC ABG pCO2 29.3 (35-45) L 04/10/18 12:59 POC ABG pO2 63 (80-105) L 04/10/18 12:59 POC ABG HCO3 23.9 04/10/18 12:59 POC ABG Total CO2 25 04/10/18 12:59 POC ABG O2 Sat 94 04/10/18 12:59 PT/INR, D-dimer PT 13.5 Sec. (12.2-14.9) 04/07/18 09:41 INR 0.98 (0.87-1.13) 04/07/18 09:41 Abnormal lab findings: Abnormal Labs 04/07/18 04/07/18 04/07/18 00:05 00:05 09:41 WBC 18.4 H 21.3 H RBC Hgb Hct MCHC Lymph % (Auto) 4.5 L Lymph # 0.8 L [place] # 1.2 H Seg Neutrophils % 88.9 H Seg Neuts % (Manual) 85.0 H Lymphocytes % (Manual) 4.0 L Monocytes % (Manual) Nucleated RBC % Seg Neutrophils # 16.4 H Seg Neutrophils # Man 18.1 H Lymphocytes # (Manual) 0.9 L Monocytes # (Manual) 1.1 H POC ABG pH POC ABG pCO2 POC ABG pO2 Potassium Chloride Carbon Dioxide BUN Creatinine Glucose 123 H POC Glucose Calcium 8.0 L Phosphorus Magnesium 1.60 L AST 59 H C-Reactive Protein Total Protein Albumin 2.9 L Urine WBC (Auto) 04/07/18 04/08/18 04/08/18 09:41 00:20 10:25 WBC 19.2 H RBC Hgb Hct MCHC Lymph % (Auto) 5.4 L Lymph # 1.0 L [place] # 1.1 H Seg Neutrophils % 88.9 H Seg Neuts % (Manual) Lymphocytes % (Manual) Monocytes % (Manual) Nucleated RBC % Seg Neutrophils # 17.1 H Seg Neutrophils # Man Lymphocytes # (Manual) Monocytes # (Manual) POC ABG pH POC ABG pCO2 POC ABG pO2 Potassium 3.3 L Chloride 95.1 L Carbon Dioxide 21 L BUN Creatinine Glucose 113 H POC Glucose Calcium Phosphorus Magnesium AST C-Reactive Protein Total Protein Albumin 3.6 L Urine WBC (Auto) 45.0 H 04/08/18 04/08/18 04/08/18 10:25 13:33 23:53 WBC 12.8 H RBC Hgb Hct MCHC Lymph % (Auto) Lymph # [place] # Seg Neutrophils % Seg Neuts % (Manual) 97.0 H Lymphocytes % (Manual) 2.0 L Monocytes % (Manual) Nucleated RBC % Seg Neutrophils # Seg Neutrophils # Man 12.4 H Lymphocytes # (Manual) 0.3 L Monocytes # (Manual) POC ABG pH POC ABG pCO2 POC ABG pO2 Potassium 3.5 L Chloride Carbon Dioxide BUN Creatinine Glucose 123 H POC Glucose Calcium 7.9 L Phosphorus Magnesium AST 53 H C-Reactive Protein 52.00 H Total Protein 6.1 L Albumin 2.7 L Urine WBC (Auto) 04/09/18 04/09/18 04/09/18 04:20 04:20 13:38 WBC 16.2 H RBC Hgb Hct MCHC Lymph % (Auto) Lymph # [place] # Seg Neutrophils % Seg Neuts % (Manual) 89.0 H Lymphocytes % (Manual) 4.0 L Monocytes % (Manual) Nucleated RBC % Seg Neutrophils # Seg Neutrophils # Man 14.4 H Lymphocytes # (Manual) 0.6 L Monocytes # (Manual) POC ABG pH 7.494 H POC ABG pCO2 31.6 L POC ABG pO2 68 L Potassium 3.5 L Chloride Carbon Dioxide BUN Creatinine 0.6 L Glucose 117 H POC Glucose Calcium 7.9 L Phosphorus 1.50 L D Magnesium AST C-Reactive Protein Total Protein 5.6 L Albumin 2.9 L Urine WBC (Auto) 04/09/18 04/09/18 04/09/18 18:25 21:45 21:45 WBC 21.3 H RBC 3.62 L Hgb Hct MCHC 35 H Lymph % (Auto) Lymph # [place] # Seg Neutrophils % Seg Neuts % (Manual) 90.0 H Lymphocytes % (Manual) 6.0 L Monocytes % (Manual) Nucleated RBC % 1.0 H Seg Neutrophils # Seg Neutrophils # Man 19.2 H Lymphocytes # (Manual) Monocytes # (Manual) 0.9 H POC ABG pH POC ABG pCO2 POC ABG pO2 Potassium Chloride Carbon Dioxide BUN 5 L Creatinine 0.5 L Glucose 134 H POC Glucose 155 H Calcium 7.9 L Phosphorus 2.20 L D Magnesium AST C-Reactive Protein Total Protein Albumin Urine WBC (Auto) 04/09/18 04/10/18 04/10/18 23:38 04:07 04:07 WBC 20.2 H RBC 3.38 L Hgb 9.4 L Hct 28.9 L MCHC Lymph % (Auto) Lymph # [place] # Seg Neutrophils % Seg Neuts % (Manual) Lymphocytes % (Manual) 6.0 L Monocytes % (Manual) Nucleated RBC % Seg Neutrophils # Seg Neutrophils # Man 10.7 H Lymphocytes # (Manual) Monocytes # (Manual) POC ABG pH POC ABG pCO2 POC ABG pO2 Potassium Chloride Carbon Dioxide BUN 6 L Creatinine 0.6 L Glucose 176 H POC Glucose 160 H Calcium 7.7 L Phosphorus Magnesium AST C-Reactive Protein Total Protein Albumin Urine WBC (Auto) 04/10/18 04/10/18 04/10/18 05:29 11:55 12:59 WBC RBC Hgb Hct MCHC Lymph % (Auto) Lymph # [place] # Seg Neutrophils % Seg Neuts % (Manual) Lymphocytes % (Manual) Monocytes % (Manual) Nucleated RBC % Seg Neutrophils # Seg Neutrophils # Man Lymphocytes # (Manual) Monocytes # (Manual) POC ABG pH 7.519 H POC ABG pCO2 29.3 L POC ABG pO2 63 L Potassium Chloride Carbon Dioxide BUN Creatinine Glucose POC Glucose 171 H 194 H Calcium Phosphorus Magnesium AST C-Reactive Protein Total Protein Albumin Urine WBC (Auto) 04/10/18 04/10/18 04/10/18 18:11 18:28 18:28 WBC 22.7 H RBC 3.62 L Hgb Hct MCHC Lymph % (Auto) Lymph # [place] # Seg Neutrophils % Seg Neuts % (Manual) 84.0 H Lymphocytes % (Manual) 7.0 L Monocytes % (Manual) 8.0 H Nucleated RBC % Seg Neutrophils # Seg Neutrophils # Man 19.1 H Lymphocytes # (Manual) Monocytes # (Manual) 1.8 H POC ABG pH POC ABG pCO2 POC ABG pO2 Potassium Chloride Carbon Dioxide BUN Creatinine Glucose POC Glucose 118 H Calcium Phosphorus Magnesium AST C-Reactive Protein 45.20 H Total Protein Albumin Urine WBC (Auto) 04/10/18 04/10/1818 18:28 23:45 03:35 WBC 20.9 H RBC 3.54 L Hgb 10.0 L Hct MCHC Lymph % (Auto) Lymph # [place] # Seg Neutrophils % Seg Neuts % (Manual) 80.0 H Lymphocytes % (Manual) 6.0 L Monocytes % (Manual) Nucleated RBC % Seg Neutrophils # Seg Neutrophils # Man 16.7 H Lymphocytes # (Manual) Monocytes # (Manual) POC ABG pH POC ABG pCO2 POC ABG pO2 Potassium 3.5 L Chloride Carbon Dioxide BUN 5 L Creatinine 0.5 L Glucose 108 H POC Glucose 149 H Calcium 8.3 L Phosphorus Magnesium AST C-Reactive Protein Total Protein Albumin Urine WBC (Auto) 04/11/18 04/11/18 03:35 06:17 WBC RBC Hgb Hct MCHC Lymph % (Auto) Lymph # [place] # Seg Neutrophils % Seg Neuts % (Manual) Lymphocytes % (Manual) Monocytes % (Manual) Nucleated RBC % Seg Neutrophils # Seg Neutrophils # Man Lymphocytes # (Manual) Monocytes # (Manual) POC ABG pH POC ABG pCO2 POC ABG pO2 Potassium Chloride Carbon Dioxide BUN Creatinine 0.5 L Glucose 143 H POC Glucose 155 H Calcium 8.2 L Phosphorus Magnesium AST C-Reactive Protein Total Protein 6.0 L Albumin 2.2 L Urine WBC (Auto) Chest x-ray: image reviewed (persitent left pleural effusion) Allied health notes reviewed: RT (Start BIPAP, ANTHONY)
--- NOTE | 2018-04-11 17:28 | Progress Note ---
Assessment and Plan 58 y.o. f s/p lap sleeve gastrectomy with hiatal hernia repair and partial fundoplication 03/30, presents to ER with abdominal pain, now s/p dx lap, abdominal washout, repair of gastric perforation and placement of drains pod 4 Neuro: dilualdid, morphine prn. toradol for pain control. Ativan prn for agitation for hx of anxiety -improved mentation compared to yesterday Cardio: Tachycardia:somewhat improving - related to resp status. hx of HTN: enalaril IV Pulm: pulm toilet per ICU Left pleural effusion: lasix. if no improvement per cxr tomorrow, will consider pleurocentesis Appreciate pulmonary consult -IS CXr 04/09: left effusion, cardiomeg. no pulm congestion CT chest: no PE GI: npo, NG to low wall intermit. sunction. No manipulation of NG. NO ice chips no meds. monitor drain output -CT abd/pelvis: fluid collection anterior to liver, leak persistent. IR to place drain Nutrition: PIcc line for tpn. -monitor lytes ID: gastric perf. f/u cultures from OR. zosyn and diflucan -umbilical incision: change packing daily -prelim: gram neg rods Pneumonia: vanco added. Dosing per pharm. -ID consult appreciated /Lytes: f/u am labs. monitor urine out. continue staton for critical I and Os in patient DVT proph: lovenox scds GI proph: protonix Out of bed to chair Subjective Narrative: No acute events overnight. Pt resting in bed. She has less sob. She denies chest pain. Abdominal pain improved. Denies nausea or vomiting. KRISTI R: 110cc/24hrs. green KRISTI L: 25 cc/24hrs serosang Pigtail Mid: 180cc/24hrs light bilious staton 3250cc Objective Vital Signs - 12hr 04/11/18 04/11/18 04/11/18 05:30 06:00 06:30 Temperature 99.0 F Pulse Rate 117 H 120 H 113 H Pulse Rate [ 116 H From Monitor] Pulse Rate [ Posterior Bilateral] Respiratory 37 H 28 H 33 H Rate Respiratory Rate [Posterior Bilateral] Blood Pressure 156/90 156/90 151/81 O2 Sat by Pulse 97 97 98 Oximetry 04/11/18 04/11/18 04/11/18 07:00 07:30 08:00 Temperature 99.0 F Pulse Rate 110 H 107 H 107 H Pulse Rate [ From Monitor] Pulse Rate [ Posterior Bilateral] Respiratory 27 H 26 H 27 H Rate Respiratory Rate [Posterior Bilateral] Blood Pressure 124/67 124/67 119/74 O2 Sat by Pulse 96 98 96 Oximetry 04/11/18 04/11/18 04/11/18 08:30 08:37 08:48 Temperature Pulse Rate 108 H Pulse Rate [ From Monitor] Pulse Rate [ 110 H 109 H Posterior Bilateral] Respiratory 26 H Rate Respiratory 24 24 Rate [Posterior Bilateral] Blood Pressure 119/74 O2 Sat by Pulse 98 98 Oximetry 04/11/18 04/11/18 04/11/18 09:00 09:30 10:00 Temperature Pulse Rate 114 H 113 H 113 H Pulse Rate [ From Monitor] Pulse Rate [ Posterior Bilateral] Respiratory 25 H 38 H 35 H Rate Respiratory Rate [Posterior Bilateral] Blood Pressure 158/95 158/95 171/90 O2 Sat by Pulse 95 98 98 Oximetry 04/11/18 04/11/18 04/11/18 10:30 11:00 11:29 Temperature Pulse Rate 116 H 119 H 116 H Pulse Rate [ From Monitor] Pulse Rate [ Posterior Bilateral] Respiratory 38 H 36 H Rate Respiratory Rate [Posterior Bilateral] Blood Pressure 171/90 171/90 166/92 O2 Sat by Pulse 97 96 Oximetry 04/11/18 04/11/18 04/11/18 11:30 12:00 12:04 Temperature 100.8 F H Pulse Rate 116 H 112 H 112 H Pulse Rate [ From Monitor] Pulse Rate [ Posterior Bilateral] Respiratory 33 H 28 H 28 H Rate Respiratory Rate [Posterior Bilateral] Blood Pressure 166/92 144/81 166/92 O2 Sat by Pulse 97 96 96 Oximetry 04/11/18 04/11/18 04/11/18 12:30 12:44 13:00 Temperature 97.5 F L Pulse Rate 109 H 105 H Pulse Rate [ From Monitor] Pulse Rate [ Posterior Bilateral] Respiratory 29 H 30 H Rate Respiratory Rate [Posterior Bilateral] Blood Pressure 166/92 135/71 O2 Sat by Pulse 98 97 Oximetry 04/11/18 04/11/18 04/11/18 13:30 14:00 14:30 Temperature Pulse Rate 106 H 111 H 106 H Pulse Rate [ From Monitor] Pulse Rate [ Posterior Bilateral] Respiratory 31 H 28 H 31 H Rate Respiratory Rate [Posterior Bilateral] Blood Pressure 135/71 165/63 165/63 O2 Sat by Pulse 98 94 99 Oximetry 04/11/18 04/11/18 04/11/18 15:00 15:30 16:00 Temperature 97.8 F Pulse Rate 112 H 108 H 110 H Pulse Rate [ From Monitor] Pulse Rate [ Posterior Bilateral] Respiratory 23 29 H 40 H Rate Respiratory Rate [Posterior Bilateral] Blood Pressure 134/72 134/72 134/72 O2 Sat by Pulse 99 99 Oximetry 04/11/18 04/11/18 04/11/18 16:30 17:00 17:10 Temperature Pulse Rate 111 H 116 H 117 H Pulse Rate [ From Monitor] Pulse Rate [ Posterior Bilateral] Respiratory 36 H 25 H Rate Respiratory Rate [Posterior Bilateral] Blood Pressure 190/94 165/81 O2 Sat by Pulse 99 98 Oximetry - General physical appearance well developed, well nourished, no distress - Respiratory rales: bilateral - Abdomen soft, other (minimally distended. tender at mid pigtail. tender at incision sites. no rebound no guarding. hypoactive bs. packing removed from umbilicus. no drainage. clean wound bed. repacked with iodoform gauze and covered/taped. ) - Integumentary no rash, no growths - Neurologic normal sensation - Musculoskeletal normal posture - Psychiatric oriented to person, oriented to place - Labs 04/11/18 03:35 04/11/18 03:35 Diabetes panel 04/10/18 04/11/18 Range/Units 18:28 03:35 Sodium 141 141 (137-145) mmol/L Potassium 3.5 L 3.6 (3.6-5.0) mmol/L Chloride 101.6 103.1 (98-107) mmol/L Carbon Dioxide 24 25 (22-30) mmol/L BUN 5 L 8 (7-17) mg/dL Creatinine 0.5 L 0.5 L (0.7-1.2) mg/dL Glucose 108 H 143 H (65-100) mg/dL Calcium 8.3 L 8.2 L (8.4-10.2) mg/dL AST 21 (5-40) units/L ALT 27 (7-56) units/L Alkaline Phosphatase 116 (35-129) units/L Total Protein 6.0 L (6.3-8.2) g/dL Albumin 2.2 L (3.9-5) g/dL Calcium panel 04/10/18 04/11/18 Range/Units 18:28 03:35 Calcium 8.3 L 8.2 L (8.4-10.2) mg/dL Phosphorus 2.90 3.50 D (2.5-4.5) mg/dL Albumin 2.2 L (3.9-5) g/dL Pituitary panel 04/10/18 04/11/18 Range/Units 18:28 03:35 Sodium 141 141 (137-145) mmol/L Potassium 3.5 L 3.6 (3.6-5.0) mmol/L Chloride 101.6 103.1 (98-107) mmol/L Carbon Dioxide 24 25 (22-30) mmol/L BUN 5 L 8 (7-17) mg/dL Creatinine 0.5 L 0.5 L (0.7-1.2) mg/dL Glucose 108 H 143 H (65-100) mg/dL Calcium 8.3 L 8.2 L (8.4-10.2) mg/dL Adrenal panel 04/10/18 04/11/18 Range/Units 18:28 03:35 Sodium 141 141 (137-145) mmol/L Potassium 3.5 L 3.6 (3.6-5.0) mmol/L Chloride 101.6 103.1 (98-107) mmol/L Carbon Dioxide 24 25 (22-30) mmol/L BUN 5 L 8 (7-17) mg/dL Creatinine 0.5 L 0.5 L (0.7-1.2) mg/dL Glucose 108 H 143 H (65-100) mg/dL Calcium 8.3 L 8.2 L (8.4-10.2) mg/dL Total Bilirubin 0.30 (0.1-1.2) mg/dL AST 21 (5-40) units/L ALT 27 (7-56) units/L Alkaline Phosphatase 116 (35-129) units/L Total Protein 6.0 L (6.3-8.2) g/dL Albumin 2.2 L (3.9-5) g/dL
[2018-04-11] MEDS ORDERED: TPN ADULT 1,800 ML IV SCH (20:00)
[2018-04-11] MEDS: LOVENOX SUB-Q SCH (21:32)
[2018-04-11] MEDS: DIFLUCAN 200 MG/100 ML BAG IV SCH (21:35)
[2018-04-12] MEDS: TORADOL IV SCH ×5 (00:21→23:50)
[2018-04-12] MEDS: VASOTEC IV SCH ×5 (00:22→23:50)
[2018-04-12] MEDS: ZOSYN/NS 4.5GM/100ML 4.5 GM/100 ML VIAL IV SCH ×3 (03:21→22:53)
[2018-04-12] MEDS: VANCOMYCIN 1,250 MG in NACL 0.9% 250ML 250 ML IV SCH ×2 (04:18→17:49)
[2018-04-12 06:20] LABS: Basophils # (Auto) 0.1 K/mm3 (0.0-0.1); Basophils % (Auto) 0.3 % (0.0-1.8); Eosinophils # (Auto) 0.1 K/mm3 (0.0-0.4); Eosinophils % (Auto) 0.4 % (0.0-4.3); Hematocrit 28.9 % (30.3-42.9); Hemoglobin 9.5 gm/dl (10.1-14.3); Lymphocytes # (Auto) 1.3 K/mm3 (1.2-5.4); Lymphocytes % (Auto) 7.4 % (13.4-35.0); Mean Corpuscular HGB Conc 33 % (30-34); Mean Corpuscular Hemoglobin 28 pg (28-32); Mean Corpuscular Volume 87 fl (79-97); Monocytes # (Auto) 1.9 K/mm3 (0.0-0.8); Monocytes % (Auto) 10.8 % (0.0-7.3); Platelet Count 307 K/mm3 (140-440); Red Blood Count 3.34 M/mm3 (3.65-5.03); Red Cell Distribution Width 14.8 % (13.2-15.2)
[2018-04-12 07:06] LABS: BUN/Creatinine Ratio 20; Blood Urea Nitrogen 12 mg/dL (7-17); Calcium 8.5 mg/dL (8.4-10.2); Hemolysis Index 1
[2018-04-12] MEDS: BROVANA NEBU IH SCH ×2 (08:04→21:13)
[2018-04-12] MEDS: PULMICORT IH SCH ×2 (08:04→21:13)
--- NOTE | 2018-04-12 08:05 | XRay Report ---
Single view chest: Compared to 04/09/18. History: Pleural effusion. Findings: Cardiomegaly. Trachea is midline. Left pleural effusion. Tip of right PICC line in right atrium. No significant interval change. Impression: No significant interval change.
[2018-04-12] MEDS: PROTONIX IV SCH (12:10)
[2018-04-12] MEDS: SODIUM CHLORIDE FLUSH SYRINGE 10 ML IV SCH ×2 (12:12→22:54)
--- NOTE | 2018-04-12 14:03 | Progress Note ---
Assessment and Plan Assessment: 1) Sepsis: still low grade fever and slightly improve in leukocytosis. Etiology most likely perf / intra-abdominal collection 2) Gastric perf and intra-abdominal fluid collection -S/P OR for ex lap, abdominal washout, repair of gastric perforation and placement of drains on 04/08/18 -04/07 peritoneal fluid + Serratia x 2 -Repeat CTA 04/09 showed no PE however increase in left pleural effusion with dense consolidation consistent with atelectasis and a large fluid collection 14 x 4.7 cm in the left lobe of the fever with air bubbles. 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 atelectasis Plan: -continue zosyn D5 and vanco D3 -stop fluconazole -monitor purulent output and fever Thank you for your consultation, will follow up with you. Katerin Cross MD Infectious Diseases Specialist [facility] ([facility]) M [phone] O [phone] Subjective Date of service: 04/12/18 Principal diagnosis: Sepsis Syndrome; Acute Hypoxemic Resp Failure; Acute Encephalopathy Interval history: Feels better, more alert, talking, tmax 100.3 Microbiology: Blood cultures: 04/07 ngtd Peritoneal cultures: 04/07 Serratia x 2 Current Antimicrobials: Zosyn Fluconazole vanco Previous Antimicrobials: Objective - Exam Narrative Exam: General appearance: Alert in mild shortness of breath NC O2 Eyes: anicteric sclerae, moist conjunctivae; no lid-lag; PERRLA HENT: Atraumatic; oropharynx NGT Neck: Trachea midline; supple, no thyromegaly or lymphadenopathy Lungs: CTA CV: RRR Abdomen: Obese, Soft, midline surgical wound covered with dressings drain in place KRISTI R minimal purulent output KRISTI L minimal serosang output Extremities: No peripheral edema or extremity lymphadenopathy Skin: Normal temperature, turgor and texture; no rash, ulcers or subcutaneous nodules Psych: Appropriate affect, alert and oriented to person, place and time. Neuro: alert and oriented x 3. Moving all extermities Lines: right PICC, staton - Constitutional Vitals: Vital Signs Temp Pulse Resp BP Pulse Ox 98.5 F 93 H 24 168/72 99 04/12/18 12:00 04/12/18 08:30 04/12/18 08:30 04/12/18 08:30 04/12/18 08:30 Temperature -Last 24 Hours Temperature 98.5 F Temperature 98.6 F Temperature 100.0 F Temperature 100.3 F Temperature 99.0 F Temperature 97.8 F - Labs CBC & Chem 7: 04/12/18 05:40 04/12/18 05:40 Labs: Abnormal lab results 04/11/18 04/11/18 04/12/18 Range/Units 18:13 23:51 05:29 WBC (4.5-11.0) K/mm3 RBC (3.65-5.03) M/mm3 Hgb (10.1-14.3) gm/dl Hct (30.3-42.9) % Lymph % (Auto) (13.4-35.0) % [place] % (Auto) (0.0-7.3) % [place] # (0.0-0.8) K/mm3 Seg Neutrophils % (40.0-70.0) % Seg Neutrophils # (1.8-7.7) K/mm3 Chloride (98-107) mmol/L Carbon Dioxide (22-30) mmol/L Creatinine (0.7-1.2) mg/dL Glucose (65-100) mg/dL POC Glucose 135 H 143 H 150 H (70-105) 04/12/18 04/12/18 Range/Units 05:40 05:40 WBC 18.0 H (4.5-11.0) K/mm3 RBC 3.34 L (3.65-5.03) M/mm3 Hgb 9.5 L (10.1-14.3) gm/dl Hct 28.9 L (30.3-42.9) % Lymph % (Auto) 7.4 L (13.4-35.0) % [place] % (Auto) 10.8 H (0.0-7.3) % [place] # 1.9 H (0.0-0.8) K/mm3 Seg Neutrophils % 81.1 H (40.0-70.0) % Seg Neutrophils # 14.6 H (1.8-7.7) K/mm3 Chloride 107.7 H (98-107) mmol/L Carbon Dioxide 21 L (22-30) mmol/L Creatinine 0.6 L (0.7-1.2) mg/dL Glucose 140 H (65-100) mg/dL POC Glucose (70-105)
--- NOTE | 2018-04-12 15:33 | Progress Note ---
Assessment and Plan 58 y.o. f s/p lap sleeve gastrectomy with hiatal hernia repair and partial fundoplication 03/30, presents to ER with abdominal pain, now s/p dx lap, abdominal washout, repair of gastric perforation and placement of drains pod 5 Neuro: dilualdid, morphine prn. toradol for pain control. Ativan prn for agitation for hx of anxiety -improved mentation compared to yesterday Cardio: tachycardia - resolved hx of HTN: enalaril IV, labatolol prn Pulm: pulm toilet per ICU Left pleural effusion: no change Appreciate pulmonary consult -IS CXr 04/09: left effusion, cardiomeg. no pulm congestion CT chest: no PE GI: npo, NG to low wall intermit. sunction. No manipulation of NG. NO ice chips no meds. monitor drain output -CT abd/pelvis: fluid collection anterior to liver, leak persistent. IR to place drain Nutrition: PIcc line for tpn. -monitor lytes ID: gastric perf. f/u cultures from OR. zosyn and diflucan -umbilical incision: change packing daily -prelim: gram neg rods Pneumonia: vanco added. Dosing per pharm. -ID consult appreciated /Lytes: f/u am labs. monitor urine out. continue staton for critical I and Os in patient DVT proph: lovenox scds GI proph: protonix Out of bed to chair Subjective Narrative: No acute overnight events. +liquid bm. Minimal nausea. Abdominal pain controlled with pain medication. Sob but improved compared to yesterday. tmax 100.3 KRISTI L 30cc KRISTI R 60cc white cloudy Mid Pigtail 45cc green staton 2600cc/24hrs Objective Vital Signs - 12hr 04/12/18 04/12/18 04/12/18 04:00 04:30 05:00 Temperature Pulse Rate 94 H 96 H 94 H Pulse Rate [ Posterior Bilateral] Pulse Rate [ 95 H Right Radial] Respiratory 24 30 H 29 H Rate Respiratory Rate [Posterior Bilateral] Blood Pressure 152/75 152/75 176/86 O2 Sat by Pulse 98 100 100 Oximetry 04/12/18 04/12/18 04/12/18 05:10 05:30 06:00 Temperature 100.0 F H Pulse Rate 98 H 97 H Pulse Rate [ Posterior Bilateral] Pulse Rate [ Right Radial] Respiratory 32 H 31 H Rate Respiratory Rate [Posterior Bilateral] Blood Pressure 176/86 179/90 O2 Sat by Pulse 99 99 Oximetry 04/12/18 04/12/18 04/12/18 06:29 06:30 06:59 Temperature Pulse Rate 100 H Pulse Rate [ Posterior Bilateral] Pulse Rate [ Right Radial] Respiratory 20 33 H 18 Rate Respiratory Rate [Posterior Bilateral] Blood Pressure 176/86 O2 Sat by Pulse 99 Oximetry 04/12/18 04/12/18 04/12/18 07:00 07:30 07:56 Temperature Pulse Rate 96 H 95 H 93 H Pulse Rate [ Posterior Bilateral] Pulse Rate [ Right Radial] Respiratory 29 H 24 22 Rate Respiratory Rate [Posterior Bilateral] Blood Pressure 170/85 170/85 170/85 O2 Sat by Pulse 99 99 99 Oximetry 04/12/18 04/12/18 04/12/18 07:58 08:00 08:04 Temperature 98.6 F Pulse Rate 93 H Pulse Rate [ 94 H Posterior Bilateral] Pulse Rate [ Right Radial] Respiratory 23 Rate Respiratory 23 Rate [Posterior Bilateral] Blood Pressure 168/72 O2 Sat by Pulse 99 99 Oximetry 04/12/18 04/12/18 04/12/18 08:07 08:30 12:00 Temperature 98.5 F Pulse Rate 93 H Pulse Rate [ 94 H Posterior Bilateral] Pulse Rate [ Right Radial] Respiratory 24 Rate Respiratory 23 Rate [Posterior Bilateral] Blood Pressure 168/72 O2 Sat by Pulse 99 Oximetry - General physical appearance well developed, well nourished, no distress - Respiratory normal expansion, normal respiratory effort - Abdomen soft, other (tender at incision sites. Jps and pigtail inplace. packing removed from umbilical wound and irrigated with saline. repacked with iodoform gauze. ) - Genitourinary other (staton ) - Integumentary no rash, no growths - Neurologic normal coordination - Musculoskeletal normal posture - Psychiatric oriented to time, oriented to person, oriented to place - Labs 04/12/18 05:40 04/12/18 05:40 Diabetes panel 04/12/18 Range/Units 05:40 Sodium 145 (137-145) mmol/L Potassium 3.8 (3.6-5.0) mmol/L Chloride 107.7 H (98-107) mmol/L Carbon Dioxide 21 L (22-30) mmol/L BUN 12 (7-17) mg/dL Creatinine 0.6 L (0.7-1.2) mg/dL Glucose 140 H (65-100) mg/dL Calcium 8.5 (8.4-10.2) mg/dL Calcium panel 04/12/18 Range/Units 05:40 Calcium 8.5 (8.4-10.2) mg/dL Phosphorus 3.30 (2.5-4.5) mg/dL Pituitary panel 04/12/18 Range/Units 05:40 Sodium 145 (137-145) mmol/L Potassium 3.8 (3.6-5.0) mmol/L Chloride 107.7 H (98-107) mmol/L Carbon Dioxide 21 L (22-30) mmol/L BUN 12 (7-17) mg/dL Creatinine 0.6 L (0.7-1.2) mg/dL Glucose 140 H (65-100) mg/dL Calcium 8.5 (8.4-10.2) mg/dL Adrenal panel 04/12/18 Range/Units 05:40 Sodium 145 (137-145) mmol/L Potassium 3.8 (3.6-5.0) mmol/L Chloride 107.7 H (98-107) mmol/L Carbon Dioxide 21 L (22-30) mmol/L BUN 12 (7-17) mg/dL Creatinine 0.6 L (0.7-1.2) mg/dL Glucose 140 H (65-100) mg/dL Calcium 8.5 (8.4-10.2) mg/dL
--- NOTE | 2018-04-12 15:38 | Vascular Lab Report ---
LOWER EXTREMITY VENOUS DUPLEX: REASON FOR EXAM: Pain and swelling of the lower extremities. COMMENTS ON THE RIGHT: All veins visualized are freely compressible without evidence of internal echogenicity. Flow is spontaneous and phasic throughout. A soft tissue change in the right knee area is consistent with a Neumann's cyst. COMMENTS ON THE LEFT: All veins visualized are freely compressible without evidence of internal echogenicity. Flow is spontaneous and phasic throughout. IMPRESSION: No evidence of acute or chronic deep venous thrombosis in either lower extremity. A soft tissue change in the right knee area is consistent with a Neumann's cyst.
--- NOTE | 2018-04-12 16:12 | Progress Note ---
Assessment and Plan Sepsis syndrome with altered mental status in the setting of the systemic inflammatory response syndrome. Mild metabolic acidosis Perforated abdominal viscus status post exploratory laparotomy and repair. Obesity. Obstructive sleep apnea according to the history. Acute encephalopathy, presumably toxic metabolic. History of hypertension. Arthritis. Gastroesophageal reflux disease. Morbid obesity. Acute hypoxemic respiratory failure - continue supplemental oxygen to keep sats > 90% - replaced phosphorus with 30 mmols IV X 1 - PICC line placement ongoing - continue TPN - PT/OT evaluate and treat - continue GI & VTE prophylaxis - continue bronchodilators for COPD (brovana and change duonebs to prn) - continue BIPAP scheduled qhs for WILVER - wound care per WCT / RN and surgeon - continue other care per attending / other consultants - tebntatively transfer to telemetry after review of repeat am labs ...... re-evaluate in am & prn ...35' Subjective Date of service: 04/12/18 Principal diagnosis: Sepsis Syndrome; Acute Hypoxemic Resp Failure; Acute Encephalopathy Interval history: Patient is seen today for: Sepsis Syndrome; Acute Hypoxemic Resp Failure; Acute Encephalopathy Seen and examined at bedside; 24hour events reviewed; nursing and respiratory care staff consulted; no adverse overnight events reported to me; resting in bed ; essentially BIPAP dependent but possible psych component as does well on naslal canula; No N/V/F/C; still with slight delirium Objective Vital Signs - 12hr 04/12/18 04/12/18 04/12/18 04:30 05:00 05:10 Temperature 100.0 F H Pulse Rate 96 H 94 H Pulse Rate [ Posterior Bilateral] Respiratory 30 H 29 H Rate Respiratory Rate [Posterior Bilateral] Blood Pressure 152/75 176/86 O2 Sat by Pulse 100 100 Oximetry 04/12/18 04/12/18 04/12/18 05:30 06:00 06:29 Temperature Pulse Rate 98 H 97 H Pulse Rate [ Posterior Bilateral] Respiratory 32 H 31 H 20 Rate Respiratory Rate [Posterior Bilateral] Blood Pressure 176/86 179/90 O2 Sat by Pulse 99 99 Oximetry 04/12/18 04/12/18 04/12/18 06:30 06:59 07:00 Temperature Pulse Rate 100 H 96 H Pulse Rate [ Posterior Bilateral] Respiratory 33 H 18 29 H Rate Respiratory Rate [Posterior Bilateral] Blood Pressure 176/86 170/85 O2 Sat by Pulse 99 99 Oximetry 04/12/18 04/12/18 04/12/18 07:30 07:56 07:58 Temperature Pulse Rate 95 H 93 H Pulse Rate [ Posterior Bilateral] Respiratory 24 22 Rate Respiratory Rate [Posterior Bilateral] Blood Pressure 170/85 170/85 O2 Sat by Pulse 99 99 99 Oximetry 04/12/18 04/12/18 04/12/18 08:00 08:04 08:07 Temperature 98.6 F Pulse Rate 93 H Pulse Rate [ 94 H 94 H Posterior Bilateral] Respiratory 23 Rate Respiratory 23 23 Rate [Posterior Bilateral] Blood Pressure 168/72 O2 Sat by Pulse 99 Oximetry 04/12/18 04/12/18 08:30 12:00 Temperature 98.5 F Pulse Rate 93 H Pulse Rate [ Posterior Bilateral] Respiratory 24 Rate Respiratory Rate [Posterior Bilateral] Blood Pressure 168/72 O2 Sat by Pulse 99 Oximetry Constitutional: appears uncomfortable, other (elderly AAF , normocephalic and atraumatic resting in bed with mildly increased work of breathing) Eyes: non-icteric ENT: oropharynx moist, other (no thyromegaly) Neck: supple, no lymphadenopathy, no JVD, other (large neck circumference) Effort: mildly labored Ascultation: Bilateral: diminished breath sounds, rhonchi (scant in bases) Percussion: Bilateral: not dull Cardiovascular: regular rate and rhythm, other (No R/M) Gastrointestinal: hypoactive bowel sounds, soft, tender (around operative site) , non-distended, other (no palpable HSM) Integumentary: normal Extremities: no cyanosis, no edema, pulses normal, no ischemia or petechiae Neurologic: non-focal exam (grossly), pupils equal and round, CN II-XII normal, motor strength normal and, other (somnolent) Psychiatric: other (mild delirium) CBC and BMP: 04/14/18 04:00 04/14/18 04:00 ABG, PT/INR, D-dimer: ABG POC ABG pH 7.519 (7.35-7.45) H 04/10/18 12:59 POC ABG pCO2 29.3 (35-45) L 04/10/18 12:59 POC ABG pO2 63 (80-105) L 04/10/18 12:59 POC ABG HCO3 23.9 04/10/18 12:59 POC ABG Total CO2 25 04/10/18 12:59 POC ABG O2 Sat 94 04/10/18 12:59 PT/INR, D-dimer PT 13.5 Sec. (12.2-14.9) 04/07/18 09:41 INR 0.98 (0.87-1.13) 04/07/18 09:41 Abnormal lab findings: Abnormal Labs 04/07/18 04/07/18 04/07/18 00:05 00:05 09:41 WBC 18.4 H 21.3 H RBC Hgb Hct MCHC Lymph % (Auto) 4.5 L [place] % (Auto) Lymph # 0.8 L [place] # 1.2 H Seg Neutrophils % 88.9 H Seg Neuts % (Manual) 85.0 H Lymphocytes % (Manual) 4.0 L Monocytes % (Manual) Nucleated RBC % Seg Neutrophils # 16.4 H Seg Neutrophils # Man 18.1 H Lymphocytes # (Manual) 0.9 L Monocytes # (Manual) 1.1 H POC ABG pH POC ABG pCO2 POC ABG pO2 Potassium Chloride Carbon Dioxide BUN Creatinine Glucose 123 H POC Glucose Calcium 8.0 L Phosphorus Magnesium 1.60 L AST 59 H C-Reactive Protein Total Protein Albumin 2.9 L Urine WBC (Auto) 04/07/18 04/08/18 04/08/18 09:41 00:20 10:25 WBC 19.2 H RBC Hgb Hct MCHC Lymph % (Auto) 5.4 L [place] % (Auto) Lymph # 1.0 L [place] # 1.1 H Seg Neutrophils % 88.9 H Seg Neuts % (Manual) Lymphocytes % (Manual) Monocytes % (Manual) Nucleated RBC % Seg Neutrophils # 17.1 H Seg Neutrophils # Man Lymphocytes # (Manual) Monocytes # (Manual) POC ABG pH POC ABG pCO2 POC ABG pO2 Potassium 3.3 L Chloride 95.1 L Carbon Dioxide 21 L BUN Creatinine Glucose 113 H POC Glucose Calcium Phosphorus Magnesium AST C-Reactive Protein Total Protein Albumin 3.6 L Urine WBC (Auto) 45.0 H 04/08/18 04/08/18 04/08/18 10:25 13:33 23:53 WBC 12.8 H RBC Hgb Hct MCHC Lymph % (Auto) [place] % (Auto) Lymph # [place] # Seg Neutrophils % Seg Neuts % (Manual) 97.0 H Lymphocytes % (Manual) 2.0 L Monocytes % (Manual) Nucleated RBC % Seg Neutrophils # Seg Neutrophils # Man 12.4 H Lymphocytes # (Manual) 0.3 L Monocytes # (Manual) POC ABG pH POC ABG pCO2 POC ABG pO2 Potassium 3.5 L Chloride Carbon Dioxide BUN Creatinine Glucose 123 H POC Glucose Calcium 7.9 L Phosphorus Magnesium AST 53 H C-Reactive Protein 52.00 H Total Protein 6.1 L Albumin 2.7 L Urine WBC (Auto) 04/09/18 04/09/18 04/09/18 04:20 04:20 13:38 WBC 16.2 H RBC Hgb Hct MCHC Lymph % (Auto) [place] % (Auto) Lymph # [place] # Seg Neutrophils % Seg Neuts % (Manual) 89.0 H Lymphocytes % (Manual) 4.0 L Monocytes % (Manual) Nucleated RBC % Seg Neutrophils # Seg Neutrophils # Man 14.4 H Lymphocytes # (Manual) 0.6 L Monocytes # (Manual) POC ABG pH 7.494 H POC ABG pCO2 31.6 L POC ABG pO2 68 L Potassium 3.5 L Chloride Carbon Dioxide BUN Creatinine 0.6 L Glucose 117 H POC Glucose Calcium 7.9 L Phosphorus 1.50 L D Magnesium AST C-Reactive Protein Total Protein 5.6 L Albumin 2.9 L Urine WBC (Auto) 04/09/18 04/09/18 04/09/18 18:25 21:45 21:45 WBC 21.3 H RBC 3.62 L Hgb Hct MCHC 35 H Lymph % (Auto) [place] % (Auto) Lymph # [place] # Seg Neutrophils % Seg Neuts % (Manual) 90.0 H Lymphocytes % (Manual) 6.0 L Monocytes % (Manual) Nucleated RBC % 1.0 H Seg Neutrophils # Seg Neutrophils # Man 19.2 H Lymphocytes # (Manual) Monocytes # (Manual) 0.9 H POC ABG pH POC ABG pCO2 POC ABG pO2 Potassium Chloride Carbon Dioxide BUN 5 L Creatinine 0.5 L Glucose 134 H POC Glucose 155 H Calcium 7.9 L Phosphorus 2.20 L D Magnesium AST C-Reactive Protein Total Protein Albumin Urine WBC (Auto) 04/09/18 04/10/18 04/10/18 23:38 04:07 04:07 WBC 20.2 H RBC 3.38 L Hgb 9.4 L Hct 28.9 L MCHC Lymph % (Auto) [place] % (Auto) Lymph # [place] # Seg Neutrophils % Seg Neuts % (Manual) Lymphocytes % (Manual) 6.0 L Monocytes % (Manual) Nucleated RBC % Seg Neutrophils # Seg Neutrophils # Man 10.7 H Lymphocytes # (Manual) Monocytes # (Manual) POC ABG pH POC ABG pCO2 POC ABG pO2 Potassium Chloride Carbon Dioxide BUN 6 L Creatinine 0.6 L Glucose 176 H POC Glucose 160 H Calcium 7.7 L Phosphorus Magnesium AST C-Reactive Protein Total Protein Albumin Urine WBC (Auto) 04/10/18 04/10/18 04/10/18 05:29 11:55 12:59 WBC RBC Hgb Hct MCHC Lymph % (Auto) [place] % (Auto) Lymph # [place] # Seg Neutrophils % Seg Neuts % (Manual) Lymphocytes % (Manual) Monocytes % (Manual) Nucleated RBC % Seg Neutrophils # Seg Neutrophils # Man Lymphocytes # (Manual) Monocytes # (Manual) POC ABG pH 7.519 H POC ABG pCO2 29.3 L POC ABG pO2 63 L Potassium Chloride Carbon Dioxide BUN Creatinine Glucose POC Glucose 171 H 194 H Calcium Phosphorus Magnesium AST C-Reactive Protein Total Protein Albumin Urine WBC (Auto) 04/10/18 04/10/18 04/10/18 18:11 18:28 18:28 WBC 22.7 H RBC 3.62 L Hgb Hct MCHC Lymph % (Auto) [place] % (Auto) Lymph # [place] # Seg Neutrophils % Seg Neuts % (Manual) 84.0 H Lymphocytes % (Manual) 7.0 L Monocytes % (Manual) 8.0 H Nucleated RBC % Seg Neutrophils # Seg Neutrophils # Man 19.1 H Lymphocytes # (Manual) Monocytes # (Manual) 1.8 H POC ABG pH POC ABG pCO2 POC ABG pO2 Potassium Chloride Carbon Dioxide BUN Creatinine Glucose POC Glucose 118 H Calcium Phosphorus Magnesium AST C-Reactive Protein 45.20 H Total Protein Albumin Urine WBC (Auto) 04/10/18 04/10/18 04/11/18 18:28 23:45 03:35 WBC 20.9 H RBC 3.54 L Hgb 10.0 L Hct MCHC Lymph % (Auto) [place] % (Auto) Lymph # [place] # Seg Neutrophils % Seg Neuts % (Manual) 80.0 H Lymphocytes % (Manual) 6.0 L Monocytes % (Manual) Nucleated RBC % Seg Neutrophils # Seg Neutrophils # Man 16.7 H Lymphocytes # (Manual) Monocytes # (Manual) POC ABG pH POC ABG pCO2 POC ABG pO2 Potassium 3.5 L Chloride Carbon Dioxide BUN 5 L Creatinine 0.5 L Glucose 108 H POC Glucose 149 H Calcium 8.3 L Phosphorus Magnesium AST C-Reactive Protein Total Protein Albumin Urine WBC (Auto) 04/11/18 04/11/18 04/11/18 03:35 06:17 11:29 WBC RBC Hgb Hct MCHC Lymph % (Auto) [place] % (Auto) Lymph # [place] # Seg Neutrophils % Seg Neuts % (Manual) Lymphocytes % (Manual) Monocytes % (Manual) Nucleated RBC % Seg Neutrophils # Seg Neutrophils # Man Lymphocytes # (Manual) Monocytes # (Manual) POC ABG pH POC ABG pCO2 POC ABG pO2 Potassium Chloride Carbon Dioxide BUN Creatinine 0.5 L Glucose 143 H POC Glucose 155 H 158 H Calcium 8.2 L Phosphorus Magnesium AST C-Reactive Protein Total Protein 6.0 L Albumin 2.2 L Urine WBC (Auto) 04/11/18 04/11/18 04/12/18 18:13 23:51 05:29 WBC RBC Hgb Hct MCHC Lymph % (Auto) [place] % (Auto) Lymph # [place] # Seg Neutrophils % Seg Neuts % (Manual) Lymphocytes % (Manual) Monocytes % (Manual) Nucleated RBC % Seg Neutrophils # Seg Neutrophils # Man Lymphocytes # (Manual) Monocytes # (Manual) POC ABG pH POC ABG pCO2 POC ABG pO2 Potassium Chloride Carbon Dioxide BUN Creatinine Glucose POC Glucose 135 H 143 H 150 H Calcium Phosphorus Magnesium AST C-Reactive Protein Total Protein Albumin Urine WBC (Auto) 04/12/18 04/12/18 05:40 05:40 WBC 18.0 H RBC 3.34 L Hgb 9.5 L Hct 28.9 L MCHC Lymph % (Auto) 7.4 L [place] % (Auto) 10.8 H Lymph # [place] # 1.9 H Seg Neutrophils % 81.1 H Seg Neuts % (Manual) Lymphocytes % (Manual) Monocytes % (Manual) Nucleated RBC % Seg Neutrophils # 14.6 H Seg Neutrophils # Man Lymphocytes # (Manual) Monocytes # (Manual) POC ABG pH POC ABG pCO2 POC ABG pO2 Potassium Chloride 107.7 H Carbon Dioxide 21 L BUN Creatinine 0.6 L Glucose 140 H POC Glucose Calcium Phosphorus Magnesium AST C-Reactive Protein Total Protein Albumin Urine WBC (Auto) Chest x-ray: pending (stable, hypoventilation; mild vascular crowding; small left pleural effusion) Allied health notes reviewed: RT (Start BIPAP, ANTHONY)
[2018-04-12] MEDS ORDERED: TPN ADULT 1,800 ML IV SCH (20:00)
[2018-04-12] MEDS: LOVENOX SUB-Q SCH (22:52)
[2018-04-13] MEDS: ZOFRAN IV PRN (04:48)
[2018-04-13] MEDS: ZOSYN/NS 4.5GM/100ML 4.5 GM/100 ML VIAL IV SCH ×5 (04:48→23:49)
[2018-04-13 05:13] LABS: Basophils # (Auto) 0.1 K/mm3 (0.0-0.1); Basophils % (Auto) 0.3 % (0.0-1.8); Eosinophils # (Auto) 0.1 K/mm3 (0.0-0.4); Eosinophils % (Auto) 0.6 % (0.0-4.3); Hematocrit 30.1 % (30.3-42.9); Hemoglobin 9.8 gm/dl (10.1-14.3); Lymphocytes % (Auto) 11.1 % (13.4-35.0); Mean Corpuscular HGB Conc 33 % (30-34); Mean Corpuscular Hemoglobin 28 pg (28-32); Mean Corpuscular Volume 86 fl (79-97); Monocytes # (Auto) 2.5 K/mm3 (0.0-0.8); Monocytes % (Auto) 13.6 % (0.0-7.3); Platelet Count 368 K/mm3 (140-440); Red Blood Count 3.52 M/mm3 (3.65-5.03); Red Cell Distribution Width 14.5 % (13.2-15.2)
[2018-04-13 05:37] LABS: BUN/Creatinine Ratio 24; Blood Urea Nitrogen 12 mg/dL (7-17); Calcium 8.7 mg/dL (8.4-10.2); Hemolysis Index 0
[2018-04-13] MEDS: TORADOL IV SCH (05:50)
[2018-04-13] MEDS: VASOTEC IV SCH ×4 (05:51→23:48)
[2018-04-13] MEDS: VANCOMYCIN 1,250 MG in NACL 0.9% 250ML 250 ML IV SCH (05:51)
[2018-04-13] MEDS: NORMODYNE IV PRN ×2 (06:26→21:35)
[2018-04-13] MEDS: BROVANA NEBU IH SCH ×2 (08:07→21:10)
[2018-04-13] MEDS: PULMICORT IH SCH ×2 (08:07→21:10)
--- NOTE | 2018-04-13 08:54 | Progress Note ---
Assessment and Plan Sepsis with altered mental status in the setting of the systemic inflammatory response syndrome. Perforated abdominal viscus status post exploratory laparotomy and repair. Obesity. Pleural effusion Bilateral lower lobe infiltrates Obstructive sleep apnea according to the history. Acute encephalopathy, presumably toxic metabolic. History of hypertension. Arthritis. Gastroesophageal reflux disease. Morbid obesity. Acute hypoxemic respiratory failure Leukocytosis - continue supplemental oxygen to keep sats > 90% - BIPAP qhs and prn -Incentive spirometry and airway expansion measures -Discontinue IVF -Gentle diuresis while monitoring hemodynamics, electrolyte profile and renal function -bronchodilators( short acting bronchodilators, scheduled) -Antibiotics per ID( peritoneal fluid cultures +for GNR) -Monitor fever curve and trend WCC -IR for percutaneous drainage of intra-abdominal fluid collection - continue TPN - PT/OT evaluate and treat - continue GI & VTE prophylaxis - wound care per WCT / RN and surgeon - continue other care per attending / other consultants Discussed with surgery service Discussed care plan with RT and RN, updated patient and her daughter who was at the bedside Subjective Date of service: 04/13/18 Principal diagnosis: Sepsis Syndrome; Acute Hypoxemic Resp Failure; Acute Encephalopathy Interval history: Sepsis Syndrome; Acute Hypoxemic Resp Failure; Acute Encephalopathy Seen and examined at bedside; 24hour events reviewed; nursing and respiratory care staff consulted; no adverse overnight events reported to me; resting in bed ; much more appropriate mentally; No N/V/F/C; remains off vasopressors; Discussed with surgeon. Objective Vital Signs - 12hr 04/12/18 04/12/18 04/12/18 21:00 21:10 21:17 Temperature Pulse Rate 104 H 105 H Pulse Rate [ Posterior Bilateral] Respiratory 36 H 26 H Rate Respiratory Rate [Posterior Bilateral] Blood Pressure 188/85 188/85 O2 Sat by Pulse 98 99 98 Oximetry 04/12/18 04/12/18 04/12/18 21:18 21:30 21:35 Temperature Pulse Rate 102 H Pulse Rate [ 105 H 108 H Posterior Bilateral] Respiratory 30 H Rate Respiratory 22 26 H Rate [Posterior Bilateral] Blood Pressure 182/89 O2 Sat by Pulse 100 Oximetry 04/12/18 04/12/18 04/12/18 22:00 22:30 23:00 Temperature Pulse Rate 101 H 100 H 109 H Pulse Rate [ Posterior Bilateral] Respiratory 24 25 H 34 H Rate Respiratory Rate [Posterior Bilateral] Blood Pressure 182/89 157/78 159/100 O2 Sat by Pulse 98 99 95 Oximetry 04/12/18 04/12/18 04/13/18 23:30 23:50 00:00 Temperature 99.7 F H Pulse Rate 105 H 102 H 100 H Pulse Rate [ Posterior Bilateral] Respiratory 34 H 33 H Rate Respiratory Rate [Posterior Bilateral] Blood Pressure 157/78 159/100 141/84 O2 Sat by Pulse 98 99 Oximetry 04/13/18 04/13/18 04/13/18 00:30 01:00 01:30 Temperature Pulse Rate 98 H 95 H 93 H Pulse Rate [ Posterior Bilateral] Respiratory 29 H 24 24 Rate Respiratory Rate [Posterior Bilateral] Blood Pressure 159/100 158/74 141/84 O2 Sat by Pulse 99 97 99 Oximetry 04/13/18 04/13/18 04/13/18 02:00 02:30 03:00 Temperature Pulse Rate 91 H 89 91 H Pulse Rate [ Posterior Bilateral] Respiratory 23 21 24 Rate Respiratory Rate [Posterior Bilateral] Blood Pressure 149/73 149/73 155/77 O2 Sat by Pulse 96 99 97 Oximetry 04/13/18 04/13/18 04/13/18 03:30 03:54 04:00 Temperature 98.9 F Pulse Rate 90 Pulse Rate [ Posterior Bilateral] Respiratory 23 Rate Respiratory Rate [Posterior Bilateral] Blood Pressure 155/77 155/77 O2 Sat by Pulse 100 98 Oximetry 04/13/18 04/13/18 04/13/18 04:30 05:00 05:30 Temperature Pulse Rate 94 H 97 H 97 H Pulse Rate [ Posterior Bilateral] Respiratory 31 H 32 H 32 H Rate Respiratory Rate [Posterior Bilateral] Blood Pressure 173/83 173/83 189/85 O2 Sat by Pulse 99 98 98 Oximetry 04/13/18 04/13/18 04/13/18 05:51 06:00 06:26 Temperature Pulse Rate 98 H 99 H 101 H Pulse Rate [ Posterior Bilateral] Respiratory 34 H Rate Respiratory Rate [Posterior Bilateral] Blood Pressure 189/85 189/88 171/71 O2 Sat by Pulse 98 Oximetry 04/13/18 04/13/18 04/13/18 06:30 07:00 08:00 Temperature 99.3 F Pulse Rate 93 H 92 H Pulse Rate [ Posterior Bilateral] Respiratory 33 H 31 H Rate Respiratory Rate [Posterior Bilateral] Blood Pressure 171/71 165/79 O2 Sat by Pulse 98 98 Oximetry 04/13/18 04/13/18 04/13/18 08:07 08:08 08:09 Temperature Pulse Rate Pulse Rate [ 90 89 Posterior Bilateral] Respiratory Rate Respiratory 18 24 Rate [Posterior Bilateral] Blood Pressure O2 Sat by Pulse 99 Oximetry Constitutional: appears uncomfortable, other (elderly AAF , normocephalic and atraumatic resting in bed with mildly increased work of breathing) Eyes: non-icteric ENT: oropharynx moist, other (no thyromegaly) Neck: supple, no lymphadenopathy, no JVD, other (large neck circumference) Effort: mildly labored Ascultation: Bilateral: diminished breath sounds, rhonchi (scant in bases) Percussion: Bilateral: not dull Cardiovascular: regular rate and rhythm, other (No R/M) Gastrointestinal: hypoactive bowel sounds, soft, tender (around operative site) , non-distended, other (no palpable HSM) Integumentary: normal Extremities: no cyanosis, no edema, pulses normal, no ischemia or petechiae Neurologic: non-focal exam (grossly), pupils equal and round, CN II-XII normal, motor strength normal and, other (somnolent) Psychiatric: mood appropriate, affect normal CBC and BMP: 04/15/18 04:42 04/15/18 04:42 ABG, PT/INR, D-dimer: ABG POC ABG pH 7.519 (7.35-7.45) H 04/10/18 12:59 POC ABG pCO2 29.3 (35-45) L 04/10/18 12:59 POC ABG pO2 63 (80-105) L 04/10/18 12:59 POC ABG HCO3 23.9 04/10/18 12:59 POC ABG Total CO2 25 04/10/18 12:59 POC ABG O2 Sat 94 04/10/18 12:59 PT/INR, D-dimer PT 13.5 Sec. (12.2-14.9) 04/07/18 09:41 INR 0.98 (0.87-1.13) 04/07/18 09:41 Abnormal lab findings: Abnormal Labs 04/07/18 04/07/18 04/07/18 00:05 00:05 09:41 WBC 18.4 H 21.3 H RBC Hgb Hct MCHC Lymph % (Auto) 4.5 L [place] % (Auto) Lymph # 0.8 L Stokes # 1.2 H Seg Neutrophils % 88.9 H Seg Neuts % (Manual) 85.0 H Lymphocytes % (Manual) 4.0 L Monocytes % (Manual) Nucleated RBC % Seg Neutrophils # 16.4 H Seg Neutrophils # Man 18.1 H Lymphocytes # (Manual) 0.9 L Monocytes # (Manual) 1.1 H POC ABG pH POC ABG pCO2 POC ABG pO2 Potassium Chloride Carbon Dioxide BUN Creatinine Glucose 123 H POC Glucose Calcium 8.0 L Phosphorus Magnesium 1.60 L AST 59 H C-Reactive Protein Total Protein Albumin 2.9 L Urine WBC (Auto) 04/07/18 04/08/18 04/08/18 09:41 00:20 10:25 WBC 19.2 H RBC Hgb Hct MCHC Lymph % (Auto) 5.4 L [place] % (Auto) Lymph # 1.0 L [place] # 1.1 H Seg Neutrophils % 88.9 H Seg Neuts % (Manual) Lymphocytes % (Manual) Monocytes % (Manual) Nucleated RBC % Seg Neutrophils # 17.1 H Seg Neutrophils # Man Lymphocytes # (Manual) Monocytes # (Manual) POC ABG pH POC ABG pCO2 POC ABG pO2 Potassium 3.3 L Chloride 95.1 L Carbon Dioxide 21 L BUN Creatinine Glucose 113 H POC Glucose Calcium Phosphorus Magnesium AST C-Reactive Protein Total Protein Albumin 3.6 L Urine WBC (Auto) 45.0 H 04/08/18 04/08/18 04/08/18 10:25 13:33 23:53 WBC 12.8 H RBC Hgb Hct MCHC Lymph % (Auto) [place] % (Auto) Lymph # [place] # Seg Neutrophils % Seg Neuts % (Manual) 97.0 H Lymphocytes % (Manual) 2.0 L Monocytes % (Manual) Nucleated RBC % Seg Neutrophils # Seg Neutrophils # Man 12.4 H Lymphocytes # (Manual) 0.3 L Monocytes # (Manual) POC ABG pH POC ABG pCO2 POC ABG pO2 Potassium 3.5 L Chloride Carbon Dioxide BUN Creatinine Glucose 123 H POC Glucose Calcium 7.9 L Phosphorus Magnesium AST 53 H C-Reactive Protein 52.00 H Total Protein 6.1 L Albumin 2.7 L Urine WBC (Auto) 04/09/18 04/09/18 04/09/18 04:20 04:20 13:38 WBC 16.2 H RBC Hgb Hct MCHC Lymph % (Auto) [place] % (Auto) Lymph # [place] # Seg Neutrophils % Seg Neuts % (Manual) 89.0 H Lymphocytes % (Manual) 4.0 L Monocytes % (Manual) Nucleated RBC % Seg Neutrophils # Seg Neutrophils # Man 14.4 H Lymphocytes # (Manual) 0.6 L Monocytes # (Manual) POC ABG pH 7.494 H POC ABG pCO2 31.6 L POC ABG pO2 68 L Potassium 3.5 L Chloride Carbon Dioxide BUN Creatinine 0.6 L Glucose 117 H POC Glucose Calcium 7.9 L Phosphorus 1.50 L D Magnesium AST C-Reactive Protein Total Protein 5.6 L Albumin 2.9 L Urine WBC (Auto) 04/09/18 04/09/18 04/09/18 18:25 21:45 21:45 WBC 21.3 H RBC 3.62 L Hgb Hct MCHC 35 H Lymph % (Auto) [place] % (Auto) Lymph # [place] # Seg Neutrophils % Seg Neuts % (Manual) 90.0 H Lymphocytes % (Manual) 6.0 L Monocytes % (Manual) Nucleated RBC % 1.0 H Seg Neutrophils # Seg Neutrophils # Man 19.2 H Lymphocytes # (Manual) Monocytes # (Manual) 0.9 H POC ABG pH POC ABG pCO2 POC ABG pO2 Potassium Chloride Carbon Dioxide BUN 5 L Creatinine 0.5 L Glucose 134 H POC Glucose 155 H Calcium 7.9 L Phosphorus 2.20 L D Magnesium AST C-Reactive Protein Total Protein Albumin Urine WBC (Auto) 04/09/18 04/10/18 04/10/18 23:38 04:07 04:07 WBC 20.2 H RBC 3.38 L Hgb 9.4 L Hct 28.9 L MCHC Lymph % (Auto) [place] % (Auto) Lymph # Stokes # Seg Neutrophils % Seg Neuts % (Manual) Lymphocytes % (Manual) 6.0 L Monocytes % (Manual) Nucleated RBC % Seg Neutrophils # Seg Neutrophils # Man 10.7 H Lymphocytes # (Manual) Monocytes # (Manual) POC ABG pH POC ABG pCO2 POC ABG pO2 Potassium Chloride Carbon Dioxide BUN 6 L Creatinine 0.6 L Glucose 176 H POC Glucose 160 H Calcium 7.7 L Phosphorus Magnesium AST C-Reactive Protein Total Protein Albumin Urine WBC (Auto) 04/10/18 04/10/18 04/10/18 05:29 11:55 12:59 WBC RBC Hgb Hct MCHC Lymph % (Auto) [place] % (Auto) Lymph # [place] # Seg Neutrophils % Seg Neuts % (Manual) Lymphocytes % (Manual) Monocytes % (Manual) Nucleated RBC % Seg Neutrophils # Seg Neutrophils # Man Lymphocytes # (Manual) Monocytes # (Manual) POC ABG pH 7.519 H POC ABG pCO2 29.3 L POC ABG pO2 63 L Potassium Chloride Carbon Dioxide BUN Creatinine Glucose POC Glucose 171 H 194 H Calcium Phosphorus Magnesium AST C-Reactive Protein Total Protein Albumin Urine WBC (Auto) 04/10/18 04/10/18 04/10/18 18:11 18:28 18:28 WBC 22.7 H RBC 3.62 L Hgb Hct MCHC Lymph % (Auto) [place] % (Auto) Lymph # [place] # Seg Neutrophils % Seg Neuts % (Manual) 84.0 H Lymphocytes % (Manual) 7.0 L Monocytes % (Manual) 8.0 H Nucleated RBC % Seg Neutrophils # Seg Neutrophils # Man 19.1 H Lymphocytes # (Manual) Monocytes # (Manual) 1.8 H POC ABG pH POC ABG pCO2 POC ABG pO2 Potassium Chloride Carbon Dioxide BUN Creatinine Glucose POC Glucose 118 H Calcium Phosphorus Magnesium AST C-Reactive Protein 45.20 H Total Protein Albumin Urine WBC (Auto) 04/10/18 04/10/18 04/11/18 18:28 23:45 03:35 WBC 20.9 H RBC 3.54 L Hgb 10.0 L Hct MCHC Lymph % (Auto) [place] % (Auto) Lymph # [place] # Seg Neutrophils % Seg Neuts % (Manual) 80.0 H Lymphocytes % (Manual) 6.0 L Monocytes % (Manual) Nucleated RBC % Seg Neutrophils # Seg Neutrophils # Man 16.7 H Lymphocytes # (Manual) Monocytes # (Manual) POC ABG pH POC ABG pCO2 POC ABG pO2 Potassium 3.5 L Chloride Carbon Dioxide BUN 5 L Creatinine 0.5 L Glucose 108 H POC Glucose 149 H Calcium 8.3 L Phosphorus Magnesium AST C-Reactive Protein Total Protein Albumin Urine WBC (Auto) 04/11/18 04/11/18 04/11/18 03:35 06:17 11:29 WBC RBC Hgb Hct MCHC Lymph % (Auto) [place] % (Auto) Lymph # Stokes # Seg Neutrophils % Seg Neuts % (Manual) Lymphocytes % (Manual) Monocytes % (Manual) Nucleated RBC % Seg Neutrophils # Seg Neutrophils # Man Lymphocytes # (Manual) Monocytes # (Manual) POC ABG pH POC ABG pCO2 POC ABG pO2 Potassium Chloride Carbon Dioxide BUN Creatinine 0.5 L Glucose 143 H POC Glucose 155 H 158 H Calcium 8.2 L Phosphorus Magnesium AST C-Reactive Protein Total Protein 6.0 L Albumin 2.2 L Urine WBC (Auto) 04/11/18 04/11/18 04/12/18 18:13 23:51 05:29 WBC RBC Hgb Hct MCHC Lymph % (Auto) [place] % (Auto) Lymph # [place] # Seg Neutrophils % Seg Neuts % (Manual) Lymphocytes % (Manual) Monocytes % (Manual) Nucleated RBC % Seg Neutrophils # Seg Neutrophils # Man Lymphocytes # (Manual) Monocytes # (Manual) POC ABG pH POC ABG pCO2 POC ABG pO2 Potassium Chloride Carbon Dioxide BUN Creatinine Glucose POC Glucose 135 H 143 H 150 H Calcium Phosphorus Magnesium AST C-Reactive Protein Total Protein Albumin Urine WBC (Auto) 04/12/18 04/12/18 04/13/18 05:40 05:40 00:32 WBC 18.0 H RBC 3.34 L Hgb 9.5 L Hct 28.9 L MCHC Lymph % (Auto) 7.4 L [place] % (Auto) 10.8 H Lymph # Stokes # 1.9 H Seg Neutrophils % 81.1 H Seg Neuts % (Manual) Lymphocytes % (Manual) Monocytes % (Manual) Nucleated RBC % Seg Neutrophils # 14.6 H Seg Neutrophils # Man Lymphocytes # (Manual) Monocytes # (Manual) POC ABG pH POC ABG pCO2 POC ABG pO2 Potassium Chloride 107.7 H Carbon Dioxide 21 L BUN Creatinine 0.6 L Glucose 140 H POC Glucose 144 H Calcium Phosphorus Magnesium AST C-Reactive Protein Total Protein Albumin Urine WBC (Auto) 04/13/18 04/13/18 04/13/18 04:20 04:20 05:35 WBC 18.1 H RBC 3.52 L Hgb 9.8 L Hct 30.1 L MCHC Lymph % (Auto) 11.1 L Stokes % (Auto) 13.6 H Lymph # Stokes # 2.5 H Seg Neutrophils % 74.4 H Seg Neuts % (Manual) Lymphocytes % (Manual) Monocytes % (Manual) Nucleated RBC % Seg Neutrophils # 13.4 H Seg Neutrophils # Man Lymphocytes # (Manual) Monocytes # (Manual) POC ABG pH POC ABG pCO2 POC ABG pO2 Potassium Chloride Carbon Dioxide BUN Creatinine 0.5 L Glucose 142 H POC Glucose 142 H Calcium Phosphorus Magnesium AST C-Reactive Protein Total Protein Albumin Urine WBC (Auto) Allied health notes reviewed: nursing
--- NOTE | 2018-04-13 09:38 | Progress Note ---
Assessment and Plan Assessment: 1) Sepsis: still high fever and leukocytosis. Etiology most likely perf / intra -abdominal collection 2) Gastric perf and intra-abdominal fluid collection -S/P OR for ex lap, abdominal washout, repair of gastric perforation and placement of drains on 04/08/18 -04/07 peritoneal fluid + Serratia x 2 -Repeat CTA 04/09 showed no PE however increase in left pleural effusion with dense consolidation consistent with atelectasis and a large fluid collection 14 x 4.7 cm in the left lobe of the fever with air bubbles. 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 atelectasis Plan: -obtain blood cx today -f/u drainage cx sent on 04/10 -continue zosyn D6 and vanco D4 -monitor purulent output and fever -if fever continues will repeat CT scan Thank you for your consultation, will follow up with you. Katerin Cross MD Infectious Diseases Specialist [facility] ([facility]) M [phone] O [phone] Subjective Date of service: 04/13/18 Principal diagnosis: Sepsis Syndrome; Acute Hypoxemic Resp Failure; Acute Encephalopathy Interval history: C/o diffuse abd pain 05/07, alert, talking, tmax 102.8 Microbiology: Blood cultures: 04/07 neg 04/10 ngtd Peritoneal cultures: 04/07 Serratia x 2 04/10 ngtd Current Antimicrobials: Zosyn 04/08 vanco 04/10 Previous Antimicrobials: Fluconazole Objective - Exam Narrative Exam: General appearance: Alert in mild shortness of breath NC O2 Eyes: anicteric sclerae, moist conjunctivae; no lid-lag; PERRLA HENT: Atraumatic; oropharynx NGT Neck: Trachea midline; supple, no thyromegaly or lymphadenopathy Lungs: CTA CV: RRR Abdomen: Obese, Soft, midline surgical wound covered with dressings drain in place KRISTI R minimal purulent output KRISTI L minimal serosang output Extremities: No peripheral edema or extremity lymphadenopathy Skin: Normal temperature, turgor and texture; no rash, ulcers or subcutaneous nodules Psych: Appropriate affect, alert and oriented to person, place and time. Neuro: alert and oriented x 3. Moving all extermities Lines: right PICC, staton - Constitutional Vitals: Vital Signs Temp Pulse Resp BP Pulse Ox 99.3 F 96 H 28 H 159/78 97 04/13/18 08:00 04/13/18 09:00 04/13/18 09:00 04/13/18 09:00 04/13/18 09:00 Temperature -Last 24 Hours Temperature 99.3 F Temperature 98.9 F Temperature 99.7 F Temperature 102.8 F Temperature 98.5 F - Labs CBC & Chem 7: 04/13/18 04:20 04/13/18 04:20 Labs: Abnormal lab results 04/13/18 04/13/18 04/13/18 Range/Units 00:32 04:20 04:20 WBC 18.1 H (4.5-11.0) K/mm3 RBC 3.52 L (3.65-5.03) M/mm3 Hgb 9.8 L (10.1-14.3) gm/dl Hct 30.1 L (30.3-42.9) % Lymph % (Auto) 11.1 L (13.4-35.0) % [place] % (Auto) 13.6 H (0.0-7.3) % [place] # 2.5 H (0.0-0.8) K/mm3 Seg Neutrophils % 74.4 H (40.0-70.0) % Seg Neutrophils # 13.4 H (1.8-7.7) K/mm3 Creatinine 0.5 L (0.7-1.2) mg/dL Glucose 142 H (65-100) mg/dL POC Glucose 144 H (70-105) 04/13/18 Range/Units 05:35 WBC (4.5-11.0) K/mm3 RBC (3.65-5.03) M/mm3 Hgb (10.1-14.3) gm/dl Hct (30.3-42.9) % Lymph % (Auto) (13.4-35.0) % [place] % (Auto) (0.0-7.3) % [place] # (0.0-0.8) K/mm3 Seg Neutrophils % (40.0-70.0) % Seg Neutrophils # (1.8-7.7) K/mm3 Creatinine (0.7-1.2) mg/dL Glucose (65-100) mg/dL POC Glucose 142 H (70-105)
[2018-04-13] MEDS: PROTONIX IV SCH (10:16)
[2018-04-13] MEDS: SODIUM CHLORIDE FLUSH SYRINGE 10 ML IV SCH ×2 (10:16→21:36)
[2018-04-13] MEDS: VANCOMYCIN 1,500 MG in NACL 0.9% 500 ML 500 ML IV SCH ×2 (14:31→21:37)
--- NOTE | 2018-04-13 14:31 | Progress Note ---
Assessment and Plan 58 y.o. f s/p lap sleeve gastrectomy with hiatal hernia repair and partial fundoplication 03/30, presents to ER with abdominal pain, now s/p dx lap, abdominal washout, repair of gastric perforation and placement of drains pod 6 Neuro: dilualdid, morphine prn. toradol for pain control. Ativan prn for agitation for hx of anxiety -improved mentation compared to yesterday Cardio: tachycardia-waxing and waning- 2/2 fever. [place] tylenol hx of HTN: enalaril IV, labatolol prn Pulm: pulm toilet per ICU Left pleural effusion: no change. Pleurocentesis likely Appreciate pulmonary consult -IS CXr 04/09: left effusion, cardiomeg. no pulm congestion CT chest: no PE GI: npo, NG to low wall intermit. sunction. No manipulation of NG. NO ice chips no meds. monitor drain output -CT abd/pelvis: fluid collection anterior to liver, leak persistent. IR to place drain Nutrition: PIcc line for tpn. -monitor lytes ID: gastric perf. f/u cultures from OR. zosyn and -umbilical incision: change packing daily peritoneal cultures: serratia Pneumonia: vanco . Dosing per pharm. -ID consult appreciated Fever continues- diarrhea. questionable C.diff. If fevers continues, likely rpt ct abd/pelvis in future /Lytes: f/u am labs. monitor urine out. continue staton for critical I and Os in patient DVT proph: lovenox scds GI proph: protonix Out of bed to chair Subjective Narrative: No acute events overnight. Pt has been spitting this am. pt seen and examined early this am. she still feels sob. denies sob. denies coughing. Abdominal pain central abd. +liquids stool yesterday. JUSTIN R: 25cc /24hrs JUSTIN L 15cc/24hs Mid abd Pigtail 60cc green [place] 3050 Objective Vital Signs - 12hr 04/13/18 04/13/18 04/13/18 03:00 03:30 03:54 Temperature 98.9 F Pulse Rate 91 H 90 Pulse Rate [ From Monitor] Pulse Rate [ Posterior Bilateral] Respiratory 24 23 Rate Respiratory Rate [Posterior Bilateral] Blood Pressure 155/77 155/77 O2 Sat by Pulse 97 100 Oximetry 04/13/18 04/13/18 04/13/18 04:00 04:30 05:00 Temperature Pulse Rate 94 H 97 H Pulse Rate [ From Monitor] Pulse Rate [ Posterior Bilateral] Respiratory 31 H 32 H Rate Respiratory Rate [Posterior Bilateral] Blood Pressure 155/77 173/83 173/83 O2 Sat by Pulse 98 99 98 Oximetry 04/13/18 04/13/18 04/13/18 05:30 05:51 06:00 Temperature Pulse Rate 97 H 98 H 99 H Pulse Rate [ From Monitor] Pulse Rate [ Posterior Bilateral] Respiratory 32 H 34 H Rate Respiratory Rate [Posterior Bilateral] Blood Pressure 189/85 189/85 189/88 O2 Sat by Pulse 98 98 Oximetry 04/13/18 04/13/18 04/13/18 06:26 06:30 07:00 Temperature Pulse Rate 101 H 93 H 92 H Pulse Rate [ From Monitor] Pulse Rate [ Posterior Bilateral] Respiratory 33 H 31 H Rate Respiratory Rate [Posterior Bilateral] Blood Pressure 171/71 171/71 165/79 O2 Sat by Pulse 98 98 Oximetry 04/13/18 04/13/18 04/13/18 07:30 08:00 08:07 Temperature 99.3 F Pulse Rate 89 92 H Pulse Rate [ 92 H From Monitor] Pulse Rate [ 90 Posterior Bilateral] Respiratory 24 31 H Rate Respiratory 18 Rate [Posterior Bilateral] Blood Pressure 165/79 161/83 O2 Sat by Pulse 99 98 Oximetry 04/13/18 04/13/18 04/13/18 08:08 08:09 08:30 Temperature Pulse Rate 92 H Pulse Rate [ From Monitor] Pulse Rate [ 89 Posterior Bilateral] Respiratory 25 H Rate Respiratory 24 Rate [Posterior Bilateral] Blood Pressure 161/83 O2 Sat by Pulse 99 99 Oximetry 04/13/18 04/13/18 04/13/18 09:00 09:30 10:00 Temperature Pulse Rate 96 H 96 H 95 H Pulse Rate [ From Monitor] Pulse Rate [ Posterior Bilateral] Respiratory 28 H 37 H 35 H Rate Respiratory Rate [Posterior Bilateral] Blood Pressure 159/78 161/83 167/78 O2 Sat by Pulse 97 98 98 Oximetry 04/13/18 04/13/18 04/13/18 10:30 11:00 11:30 Temperature Pulse Rate 97 H 96 H 102 H Pulse Rate [ From Monitor] Pulse Rate [ Posterior Bilateral] Respiratory 34 H 34 H 16 Rate Respiratory Rate [Posterior Bilateral] Blood Pressure 167/78 172/76 172/76 O2 Sat by Pulse 98 99 99 Oximetry 04/13/18 04/13/18 04/13/18 12:00 12:13 12:30 Temperature Pulse Rate 103 H 105 H 106 H Pulse Rate [ From Monitor] Pulse Rate [ Posterior Bilateral] Respiratory 38 H 36 H Rate Respiratory Rate [Posterior Bilateral] Blood Pressure 181/83 181/83 181/83 O2 Sat by Pulse 98 97 Oximetry 04/13/18 04/13/18 04/13/18 13:00 13:30 14:00 Temperature Pulse Rate 108 H 108 H 109 H Pulse Rate [ From Monitor] Pulse Rate [ Posterior Bilateral] Respiratory 36 H 38 H 36 H Rate Respiratory Rate [Posterior Bilateral] Blood Pressure 176/83 176/83 165/79 O2 Sat by Pulse 98 98 98 Oximetry - General physical appearance well developed, well nourished - ENT other (ng) - Respiratory normal expansion, normal respiratory effort rales: bilateral - Abdomen soft (tender at midline/epigastric area. justin in place x 2. midline pigtail. no rebound no guarding. ) - Integumentary no rash, no growths - Neurologic normal coordination - Musculoskeletal normal posture - Psychiatric oriented to time, oriented to person, oriented to place - Labs 04/13/18 04:20 04/13/18 04:20 Diabetes panel 04/13/18 Range/Units 04:20 Sodium 142 (137-145) mmol/L Potassium 3.7 (3.6-5.0) mmol/L Chloride 104.6 (98-107) mmol/L Carbon Dioxide 25 (22-30) mmol/L BUN 12 (7-17) mg/dL Creatinine 0.5 L (0.7-1.2) mg/dL Glucose 142 H (65-100) mg/dL Calcium 8.7 (8.4-10.2) mg/dL Calcium panel 04/13/18 Range/Units 04:20 Calcium 8.7 (8.4-10.2) mg/dL Phosphorus 3.80 (2.5-4.5) mg/dL Pituitary panel 04/13/18 Range/Units 04:20 Sodium 142 (137-145) mmol/L Potassium 3.7 (3.6-5.0) mmol/L Chloride 104.6 (98-107) mmol/L Carbon Dioxide 25 (22-30) mmol/L BUN 12 (7-17) mg/dL Creatinine 0.5 L (0.7-1.2) mg/dL Glucose 142 H (65-100) mg/dL Calcium 8.7 (8.4-10.2) mg/dL Adrenal panel 04/13/18 Range/Units 04:20 Sodium 142 (137-145) mmol/L Potassium 3.7 (3.6-5.0) mmol/L Chloride 104.6 (98-107) mmol/L Carbon Dioxide 25 (22-30) mmol/L BUN 12 (7-17) mg/dL Creatinine 0.5 L (0.7-1.2) mg/dL Glucose 142 H (65-100) mg/dL Calcium 8.7 (8.4-10.2) mg/dL
[2018-04-13] MEDS: TYLENOL PR PRN ×2 (15:33→21:57)
--- NOTE | 2018-04-13 18:47 | XRay Report ---
FINAL REPORT PROCEDURE: XR ABDOMEN 1V AP TECHNIQUE: Abdominal radiograph, single supine AP view. HISTORY: Nasogastric tube position. COMPARISON: No prior studies are available for comparison. FINDINGS: Bowel gas pattern:Nonobstructive. Paucity of bowel gas. Masses or calcifications:None. Bony structures:Lumbosacral fusion/disc spacers. Other:Enteric tube tip overlies expected location of the stomach. Pigtail catheter overlies the left upper quadrant. Tubing overlies the mid abdomen, and tube is seen in the left upper quadrant. Possible bibasilar opacities. IMPRESSION: Enteric tube overlies expected location of the stomach. Pigtail catheter and possible drainage catheter in the left upper quadrant, tubing overlying the mid abdomen may be external patient. Recommend clinical correlation. Paucity of bowel gas. Possible bibasilar opacities, consider correlation with chest radiograph.
[2018-04-13] MEDS ORDERED: TPN ADULT 1,800 ML IV SCH (20:00)
[2018-04-13] MEDS: DILAUDID IV PRN (20:19)
[2018-04-13] MEDS: LOVENOX SUB-Q SCH (21:37)
[2018-04-14] MEDS: ZOFRAN IV PRN ×3 (00:25→20:40)
[2018-04-14] MEDS: NORMODYNE IV PRN (02:14)
[2018-04-14 05:11] LABS: Hematocrit 30.9 % (30.3-42.9); Hemoglobin 9.9 gm/dl (10.1-14.3); Mean Corpuscular HGB Conc 32 % (30-34); Mean Corpuscular Hemoglobin 28 pg (28-32); Mean Corpuscular Volume 86 fl (79-97); Platelet Count 439 K/mm3 (140-440); Red Blood Count 3.59 M/mm3 (3.65-5.03); Red Cell Distribution Width 14.8 % (13.2-15.2)
[2018-04-14 05:22] LABS: BUN/Creatinine Ratio 19; Blood Urea Nitrogen 13 mg/dL (7-17); Calcium 8.5 mg/dL (8.4-10.2); Hemolysis Index 0
[2018-04-14] MEDS: VASOTEC IV SCH ×3 (05:42→17:07)
[2018-04-14] MEDS: VANCOMYCIN 1,500 MG in NACL 0.9% 500 ML 500 ML IV SCH ×2 (05:43→17:06)
[2018-04-14] MEDS: ZOSYN/NS 4.5GM/100ML 4.5 GM/100 ML VIAL IV SCH ×2 (05:43→16:44)
[2018-04-14 06:26] LABS: Band Neutrophils # (Manual) 0.9 K/mm3; Basophils % (Manual) 0 % (0.0-1.8); Eosinophils % (Manual) 0 % (0.0-4.3); Giant Platelets Rare; Myelocytes # (Manual) 0.4 K/mm3; Platelet Estimate Consistent w Auto; RBC Morphology Normal; Total Cells Counted 100
[2018-04-14] MEDS: PULMICORT IH SCH ×2 (07:18→20:37)
[2018-04-14] MEDS: BROVANA NEBU IH SCH ×2 (07:18→20:37)
--- NOTE | 2018-04-14 08:06 | Progress Note ---
Assessment and Plan 58 y.o. f s/p lap sleeve gastrectomy with hiatal hernia repair and partial fundoplication 03/30, presents to ER with abdominal pain, now s/p dx lap, abdominal washout, repair of gastric perforation and placement of drains pod 7 Neuro: dilualdid, morphine prn. toradol for pain control. Ativan prn for agitation for hx of anxiety -improved mentation compared to yesterday Cardio: tachycardia-waxing and waning- 2/2 fever. SC tylenol hx of HTN: enalaril IV, metop rpn Pulm: pulm toilet per ICU Left pleural effusion: no change. Pleurocentesis likely Appreciate pulmonary consult -IS CXr 04/09: left effusion, cardiomeg. no pulm congestion CT chest: no PE GI: npo, NG to low wall intermit. sunction. No manipulation of NG. NO ice chips no meds. monitor drain output -CT abd/pelvis: fluid collection anterior to liver, leak persistent. IR to place drain Nutrition: PIcc line for tpn. -monitor lytes ID: gastric perf. f/u cultures from OR. zosyn and -umbilical incision: change packing daily peritoneal cultures: serratia Pneumonia: vanco . Dosing per pharm. -ID consult appreciated Fever continues- diarrhea. questionable C.diff. If fevers continues, f/u CT abd. pelvis /Lytes: f/u am labs. monitor urine out. continue staton for critical I and Os in patient DVT proph: lovenox scds GI proph: protonix Out of bed to chair Subjective Narrative: Pt feels a little better. She continues to feel sob. She has abdominal pain that is controlled with pain medication. +Nausea. Fevers overnight Tmax 101.3 KRISTI L 5 serous KRISTI R 25cc white Pigtail 15cc light green u/o 900cc Objective Vital Signs - 12hr 04/13/18 04/13/18 04/13/18 20:19 20:30 21:00 Temperature Pulse Rate 111 H 116 H Pulse Rate [ From Monitor] Pulse Rate [ Posterior Bilateral] Respiratory 25 H 32 H 33 H Rate Respiratory Rate [Posterior Bilateral] Blood Pressure 156/84 156/84 O2 Sat by Pulse 96 93 Oximetry 04/13/18 04/13/18 04/13/18 21:12 21:23 21:30 Temperature Pulse Rate 119 H Pulse Rate [ From Monitor] Pulse Rate [ 117 H 120 H Posterior Bilateral] Respiratory 65 H Rate Respiratory 30 H 32 H Rate [Posterior Bilateral] Blood Pressure 179/94 O2 Sat by Pulse 95 96 Oximetry 04/13/18 04/13/18 04/13/18 21:35 22:00 22:30 Temperature 103 F H Pulse Rate 119 H 104 H 108 H Pulse Rate [ From Monitor] Pulse Rate [ Posterior Bilateral] Respiratory 33 H 36 H Rate Respiratory Rate [Posterior Bilateral] Blood Pressure 179/94 169/84 169/84 O2 Sat by Pulse 97 95 Oximetry 04/13/18 04/13/18 04/13/18 22:35 23:00 23:30 Temperature 100.1 F H Pulse Rate 101 H 99 H Pulse Rate [ From Monitor] Pulse Rate [ Posterior Bilateral] Respiratory 29 H 25 H Rate Respiratory Rate [Posterior Bilateral] Blood Pressure 173/84 173/84 O2 Sat by Pulse 97 98 Oximetry 04/13/18 04/14/18 04/14/18 23:48 00:00 00:30 Temperature 101.3 F H Pulse Rate 93 H 100 H 98 H Pulse Rate [ 100 H From Monitor] Pulse Rate [ Posterior Bilateral] Respiratory 27 H 27 H Rate Respiratory Rate [Posterior Bilateral] Blood Pressure 173/84 166/81 173/84 O2 Sat by Pulse 97 98 Oximetry 04/14/18 04/14/18 04/14/18 00:32 01:00 01:30 Temperature 98.9 F Pulse Rate 98 H 95 H 95 H Pulse Rate [ From Monitor] Pulse Rate [ Posterior Bilateral] Respiratory 32 H 22 23 Rate Respiratory Rate [Posterior Bilateral] Blood Pressure 168/81 150/70 168/81 O2 Sat by Pulse 99 97 99 Oximetry 04/14/18 04/14/18 04/14/18 02:00 02:14 02:30 Temperature 100.3 F H Pulse Rate 96 H 97 H 88 Pulse Rate [ From Monitor] Pulse Rate [ Posterior Bilateral] Respiratory 26 H 24 Rate Respiratory Rate [Posterior Bilateral] Blood Pressure 168/81 178/89 178/89 O2 Sat by Pulse 98 99 Oximetry 04/14/18 04/14/18 04/14/18 02:46 03:00 03:16 Temperature Pulse Rate 88 88 88 Pulse Rate [ From Monitor] Pulse Rate [ Posterior Bilateral] Respiratory 19 19 19 Rate Respiratory Rate [Posterior Bilateral] Blood Pressure 178/89 149/69 178/89 O2 Sat by Pulse 98 98 97 Oximetry 04/14/18 04/14/18 04/14/18 03:30 03:46 04:00 Temperature 98.9 F Pulse Rate 90 91 H 93 H Pulse Rate [ 93 H From Monitor] Pulse Rate [ Posterior Bilateral] Respiratory 22 22 25 H Rate Respiratory Rate [Posterior Bilateral] Blood Pressure 178/89 149/69 149/69 O2 Sat by Pulse 99 99 98 Oximetry 04/14/18 04/14/18 04/14/18 04:16 04:30 04:46 Temperature Pulse Rate 93 H 93 H 92 H Pulse Rate [ From Monitor] Pulse Rate [ Posterior Bilateral] Respiratory 26 H 21 21 Rate Respiratory Rate [Posterior Bilateral] Blood Pressure 200/94 142/72 142/72 O2 Sat by Pulse 100 100 99 Oximetry 04/14/18 04/14/18 04/14/18 05:10 05:16 05:30 Temperature Pulse Rate 96 H 98 H Pulse Rate [ From Monitor] Pulse Rate [ Posterior Bilateral] Respiratory 29 H 27 H Rate Respiratory Rate [Posterior Bilateral] Blood Pressure 142/72 142/72 142/72 O2 Sat by Pulse 98 97 97 Oximetry 04/14/18 04/14/18 04/14/18 05:42 05:46 06:00 Temperature 100.3 F H Pulse Rate 97 H 98 H 99 H Pulse Rate [ From Monitor] Pulse Rate [ Posterior Bilateral] Respiratory 29 H 29 H Rate Respiratory Rate [Posterior Bilateral] Blood Pressure 148/79 148/79 154/77 O2 Sat by Pulse 98 98 Oximetry 04/14/18 04/14/18 04/14/18 06:16 06:30 06:46 Temperature Pulse Rate 101 H 98 H 98 H Pulse Rate [ From Monitor] Pulse Rate [ Posterior Bilateral] Respiratory 31 H 28 H 25 H Rate Respiratory Rate [Posterior Bilateral] Blood Pressure 154/77 148/79 148/79 O2 Sat by Pulse 98 98 98 Oximetry 04/14/18 04/14/18 04/14/18 07:00 07:16 07:18 Temperature Pulse Rate 97 H 96 H Pulse Rate [ From Monitor] Pulse Rate [ 96 H Posterior Bilateral] Respiratory 25 H 25 H Rate Respiratory 24 Rate [Posterior Bilateral] Blood Pressure 169/67 169/67 O2 Sat by Pulse 98 100 Oximetry 04/14/18 07:19 Temperature Pulse Rate Pulse Rate [ From Monitor] Pulse Rate [ 97 H Posterior Bilateral] Respiratory Rate Respiratory 22 Rate [Posterior Bilateral] Blood Pressure O2 Sat by Pulse 98 Oximetry - General physical appearance well developed, well nourished - Respiratory normal expansion, normal respiratory effort wheezing: bilateral - Abdomen soft, other (soft, JPs in place. Pigtail in place. non distended. midline dressing changed. minimal serous drainage. ) - Integumentary no rash, no growths - Neurologic normal coordination, normal sensation - Psychiatric oriented to time, oriented to person, oriented to place - Labs 04/14/18 04:00 04/14/18 04:00 Diabetes panel 04/14/18 Range/Units 04:00 Sodium 141 (137-145) mmol/L Potassium 3.7 (3.6-5.0) mmol/L Chloride 102.4 (98-107) mmol/L Carbon Dioxide 26 (22-30) mmol/L BUN 13 (7-17) mg/dL Creatinine 0.7 (0.7-1.2) mg/dL Glucose 155 H (65-100) mg/dL Calcium 8.5 (8.4-10.2) mg/dL Calcium panel 04/14/18 Range/Units 04:00 Calcium 8.5 (8.4-10.2) mg/dL Phosphorus 3.40 (2.5-4.5) mg/dL Pituitary panel 04/14/18 Range/Units 04:00 Sodium 141 (137-145) mmol/L Potassium 3.7 (3.6-5.0) mmol/L Chloride 102.4 (98-107) mmol/L Carbon Dioxide 26 (22-30) mmol/L BUN 13 (7-17) mg/dL Creatinine 0.7 (0.7-1.2) mg/dL Glucose 155 H (65-100) mg/dL Calcium 8.5 (8.4-10.2) mg/dL Adrenal panel 04/14/18 Range/Units 04:00 Sodium 141 (137-145) mmol/L Potassium 3.7 (3.6-5.0) mmol/L Chloride 102.4 (98-107) mmol/L Carbon Dioxide 26 (22-30) mmol/L BUN 13 (7-17) mg/dL Creatinine 0.7 (0.7-1.2) mg/dL Glucose 155 H (65-100) mg/dL Calcium 8.5 (8.4-10.2) mg/dL
[2018-04-14] MEDS: PROTONIX IV SCH (09:45)
[2018-04-14] MEDS: SODIUM CHLORIDE FLUSH SYRINGE 10 ML IV SCH (09:45)
--- NOTE | 2018-04-14 10:43 | Progress Note ---
Assessment and Plan Sepsis syndrome with altered mental status in the setting of the systemic inflammatory response syndrome. Mild metabolic acidosis Perforated abdominal viscus status post exploratory laparotomy and repair. Obesity. Obstructive sleep apnea according to the history. Acute encephalopathy, presumably toxic metabolic. History of hypertension. Arthritis. Gastroesophageal reflux disease. Morbid obesity. Acute hypoxemic respiratory failure - continue supplemental oxygen to keep sats > 90% - continue anti-infectives and de-escalate per ID recs - continue PICC line for TPN - continue TPN - PT/OT evaluation ongoing - continue GI & VTE prophylaxis - continue bronchodilators for COPD (brovana and change duonebs to prn) - continue BIPAP scheduled qhs for [place] with prn daytime use - wound care per WCT / RN and surgeon - continue other care per attending / other consultants - tentatively transfer to telemetry now ...... re-evaluate in am & prn ...35' Subjective Date of service: 04/14/18 Principal diagnosis: Sepsis Syndrome; Acute Hypoxemic Resp Failure; Acute Encephalopathy Interval history: Patient is seen today for: Sepsis Syndrome; Acute Hypoxemic Resp Failure; Acute Encephalopathy Seen and examined at bedside; 24hour events reviewed; nursing and respiratory care staff consulted; no adverse overnight events reported to me; sitting in chair; seen by PT and did well; + nausea and dry heaves; denies acute chest pains or increased SOB; no new issues otherwise Objective Vital Signs - 12hr 04/13/18 04/13/18 04/13/18 23:00 23:30 23:48 Temperature Pulse Rate 101 H 99 H 93 H Pulse Rate [ From Monitor] Pulse Rate [ Posterior Bilateral] Respiratory 29 H 25 H Rate Respiratory Rate [Posterior Bilateral] Blood Pressure 173/84 173/84 173/84 O2 Sat by Pulse 97 98 Oximetry 04/14/18 04/14/18 04/14/18 00:00 00:30 00:32 Temperature 101.3 F H Pulse Rate 100 H 98 H 98 H Pulse Rate [ 100 H From Monitor] Pulse Rate [ Posterior Bilateral] Respiratory 27 H 27 H 32 H Rate Respiratory Rate [Posterior Bilateral] Blood Pressure 166/81 173/84 168/81 O2 Sat by Pulse 97 98 99 Oximetry 04/14/18 04/14/18 04/14/18 01:00 01:30 02:00 Temperature 98.9 F 100.3 F H Pulse Rate 95 H 95 H 96 H Pulse Rate [ From Monitor] Pulse Rate [ Posterior Bilateral] Respiratory 22 23 26 H Rate Respiratory Rate [Posterior Bilateral] Blood Pressure 150/70 168/81 168/81 O2 Sat by Pulse 97 99 98 Oximetry 04/14/18 04/14/18 04/14/18 02:14 02:30 02:46 Temperature Pulse Rate 97 H 88 88 Pulse Rate [ From Monitor] Pulse Rate [ Posterior Bilateral] Respiratory 24 19 Rate Respiratory Rate [Posterior Bilateral] Blood Pressure 178/89 178/89 178/89 O2 Sat by Pulse 99 98 Oximetry 04/14/18 04/14/18 04/14/18 03:00 03:16 03:30 Temperature Pulse Rate 88 88 90 Pulse Rate [ From Monitor] Pulse Rate [ Posterior Bilateral] Respiratory 19 19 22 Rate Respiratory Rate [Posterior Bilateral] Blood Pressure 149/69 178/89 178/89 O2 Sat by Pulse 98 97 99 Oximetry 04/14/18 04/14/18 04/14/18 03:46 04:00 04:16 Temperature 98.9 F Pulse Rate 91 H 93 H 93 H Pulse Rate [ 93 H From Monitor] Pulse Rate [ Posterior Bilateral] Respiratory 22 25 H 26 H Rate Respiratory Rate [Posterior Bilateral] Blood Pressure 149/69 149/69 200/94 O2 Sat by Pulse 99 98 100 Oximetry 04/14/18 04/14/18 04/14/18 04:30 04:46 05:10 Temperature Pulse Rate 93 H 92 H Pulse Rate [ From Monitor] Pulse Rate [ Posterior Bilateral] Respiratory 21 21 Rate Respiratory Rate [Posterior Bilateral] Blood Pressure 142/72 142/72 142/72 O2 Sat by Pulse 100 99 98 Oximetry 04/14/18 04/14/18 04/14/18 05:16 05:30 05:42 Temperature Pulse Rate 96 H 98 H 97 H Pulse Rate [ From Monitor] Pulse Rate [ Posterior Bilateral] Respiratory 29 H 27 H Rate Respiratory Rate [Posterior Bilateral] Blood Pressure 142/72 142/72 148/79 O2 Sat by Pulse 97 97 Oximetry 04/14/18 04/14/18 04/14/18 05:46 06:00 06:16 Temperature 100.3 F H Pulse Rate 98 H 99 H 101 H Pulse Rate [ From Monitor] Pulse Rate [ Posterior Bilateral] Respiratory 29 H 29 H 31 H Rate Respiratory Rate [Posterior Bilateral] Blood Pressure 148/79 154/77 154/77 O2 Sat by Pulse 98 98 98 Oximetry 04/14/18 04/14/18 04/14/18 06:30 06:46 07:00 Temperature Pulse Rate 98 H 98 H 97 H Pulse Rate [ From Monitor] Pulse Rate [ Posterior Bilateral] Respiratory 28 H 25 H 25 H Rate Respiratory Rate [Posterior Bilateral] Blood Pressure 148/79 148/79 169/67 O2 Sat by Pulse 98 98 98 Oximetry 04/14/18 04/14/18 04/14/18 07:16 07:18 07:19 Temperature Pulse Rate 96 H Pulse Rate [ From Monitor] Pulse Rate [ 96 H 97 H Posterior Bilateral] Respiratory 25 H Rate Respiratory 24 22 Rate [Posterior Bilateral] Blood Pressure 169/67 O2 Sat by Pulse 100 98 Oximetry 04/14/18 04/14/18 04/14/18 07:30 07:46 08:00 Temperature Pulse Rate 100 H 100 H 99 H Pulse Rate [ From Monitor] Pulse Rate [ Posterior Bilateral] Respiratory 24 24 26 H Rate Respiratory Rate [Posterior Bilateral] Blood Pressure 169/67 169/67 131/67 O2 Sat by Pulse 94 93 91 Oximetry 04/14/18 04/14/18 04/14/18 08:16 08:30 08:46 Temperature Pulse Rate 98 H 98 H 97 H Pulse Rate [ From Monitor] Pulse Rate [ Posterior Bilateral] Respiratory 23 24 26 H Rate Respiratory Rate [Posterior Bilateral] Blood Pressure 131/67 131/67 131/67 O2 Sat by Pulse 93 93 94 Oximetry 04/14/18 04/14/18 04/14/18 09:00 09:16 09:30 Temperature Pulse Rate 99 H 95 H 96 H Pulse Rate [ From Monitor] Pulse Rate [ Posterior Bilateral] Respiratory 27 H 25 H 28 H Rate Respiratory Rate [Posterior Bilateral] Blood Pressure 166/83 166/83 166/83 O2 Sat by Pulse 92 96 97 Oximetry 04/14/18 04/14/18 09:46 10:00 Temperature Pulse Rate 96 H 96 H Pulse Rate [ From Monitor] Pulse Rate [ Posterior Bilateral] Respiratory 28 H 26 H Rate Respiratory Rate [Posterior Bilateral] Blood Pressure 166/83 141/73 O2 Sat by Pulse 97 97 Oximetry Constitutional: no acute distress, other (elderly AAF , normocephalic and atraumatic resting in bed with mildly increased work of breathing) Eyes: non-icteric ENT: oropharynx moist, other (no thyromegaly) Neck: supple, no lymphadenopathy, no JVD, other (large neck circumference) Effort: mildly labored Ascultation: Bilateral: diminished breath sounds, rhonchi (scant in bases) Percussion: Bilateral: not dull Cardiovascular: regular rate and rhythm, other (No R/M) Gastrointestinal: hypoactive bowel sounds, soft, tender (around operative site) , non-distended, other (no palpable HSM) Integumentary: normal Extremities: no cyanosis, no edema, pulses normal, no ischemia or petechiae Neurologic: non-focal exam (grossly), pupils equal and round, CN II-XII normal, motor strength normal and Psychiatric: mood appropriate, anxious CBC and BMP: 04/14/18 04:00 04/14/18 04:00 ABG, PT/INR, D-dimer: ABG POC ABG pH 7.519 (7.35-7.45) H 04/10/18 12:59 POC ABG pCO2 29.3 (35-45) L 04/10/18 12:59 POC ABG pO2 63 (80-105) L 04/10/18 12:59 POC ABG HCO3 23.9 04/10/18 12:59 POC ABG Total CO2 25 04/10/18 12:59 POC ABG O2 Sat 94 04/10/18 12:59 PT/INR, D-dimer PT 13.5 Sec. (12.2-14.9) 04/07/18 09:41 INR 0.98 (0.87-1.13) 04/07/18 09:41 Abnormal lab findings: Abnormal Labs 04/07/18 04/07/18 04/07/18 00:05 00:05 09:41 WBC 18.4 H 21.3 H RBC Hgb Hct MCHC Lymph % (Auto) 4.5 L [place] % (Auto) Lymph # 0.8 L [place] # 1.2 H Seg Neutrophils % 88.9 H Seg Neuts % (Manual) 85.0 H Lymphocytes % (Manual) 4.0 L Monocytes % (Manual) Nucleated RBC % Seg Neutrophils # 16.4 H Seg Neutrophils # Man 18.1 H Lymphocytes # (Manual) 0.9 L Monocytes # (Manual) 1.1 H POC ABG pH POC ABG pCO2 POC ABG pO2 Potassium Chloride Carbon Dioxide BUN Creatinine Glucose 123 H POC Glucose Calcium 8.0 L Phosphorus Magnesium 1.60 L AST 59 H C-Reactive Protein Total Protein Albumin 2.9 L Urine WBC (Auto) 04/07/18 04/08/18 04/08/18 09:41 00:20 10:25 WBC 19.2 H RBC Hgb Hct MCHC Lymph % (Auto) 5.4 L [place] % (Auto) Lymph # 1.0 L [place] # 1.1 H Seg Neutrophils % 88.9 H Seg Neuts % (Manual) Lymphocytes % (Manual) Monocytes % (Manual) Nucleated RBC % Seg Neutrophils # 17.1 H Seg Neutrophils # Man Lymphocytes # (Manual) Monocytes # (Manual) POC ABG pH POC ABG pCO2 POC ABG pO2 Potassium 3.3 L Chloride 95.1 L Carbon Dioxide 21 L BUN Creatinine Glucose 113 H POC Glucose Calcium Phosphorus Magnesium AST C-Reactive Protein Total Protein Albumin 3.6 L Urine WBC (Auto) 45.0 H 04/08/18 04/08/18 04/08/18 10:25 13:33 23:53 WBC 12.8 H RBC Hgb Hct MCHC Lymph % (Auto) [place] % (Auto) Lymph # [place] # Seg Neutrophils % Seg Neuts % (Manual) 97.0 H Lymphocytes % (Manual) 2.0 L Monocytes % (Manual) Nucleated RBC % Seg Neutrophils # Seg Neutrophils # Man 12.4 H Lymphocytes # (Manual) 0.3 L Monocytes # (Manual) POC ABG pH POC ABG pCO2 POC ABG pO2 Potassium 3.5 L Chloride Carbon Dioxide BUN Creatinine Glucose 123 H POC Glucose Calcium 7.9 L Phosphorus Magnesium AST 53 H C-Reactive Protein 52.00 H Total Protein 6.1 L Albumin 2.7 L Urine WBC (Auto) 04/09/18 04/09/18 04/09/18 04:20 04:20 13:38 WBC 16.2 H RBC Hgb Hct MCHC Lymph % (Auto) [place] % (Auto) Lymph # [place] # Seg Neutrophils % Seg Neuts % (Manual) 89.0 H Lymphocytes % (Manual) 4.0 L Monocytes % (Manual) Nucleated RBC % Seg Neutrophils # Seg Neutrophils # Man 14.4 H Lymphocytes # (Manual) 0.6 L Monocytes # (Manual) POC ABG pH 7.494 H POC ABG pCO2 31.6 L POC ABG pO2 68 L Potassium 3.5 L Chloride Carbon Dioxide BUN Creatinine 0.6 L Glucose 117 H POC Glucose Calcium 7.9 L Phosphorus 1.50 L D Magnesium AST C-Reactive Protein Total Protein 5.6 L Albumin 2.9 L Urine WBC (Auto) 04/09/18 04/09/18 04/09/18 18:25 21:45 21:45 WBC 21.3 H RBC 3.62 L Hgb Hct MCHC 35 H Lymph % (Auto) [place] % (Auto) Lymph # [place] # Seg Neutrophils % Seg Neuts % (Manual) 90.0 H Lymphocytes % (Manual) 6.0 L Monocytes % (Manual) Nucleated RBC % 1.0 H Seg Neutrophils # Seg Neutrophils # Man 19.2 H Lymphocytes # (Manual) Monocytes # (Manual) 0.9 H POC ABG pH POC ABG pCO2 POC ABG pO2 Potassium Chloride Carbon Dioxide BUN 5 L Creatinine 0.5 L Glucose 134 H POC Glucose 155 H Calcium 7.9 L Phosphorus 2.20 L D Magnesium AST C-Reactive Protein Total Protein Albumin Urine WBC (Auto) 04/09/18 04/10/18 04/10/18 23:38 04:07 04:07 WBC 20.2 H RBC 3.38 L Hgb 9.4 L Hct 28.9 L MCHC Lymph % (Auto) [place] % (Auto) Lymph # [place] # Seg Neutrophils % Seg Neuts % (Manual) Lymphocytes % (Manual) 6.0 L Monocytes % (Manual) Nucleated RBC % Seg Neutrophils # Seg Neutrophils # Man 10.7 H Lymphocytes # (Manual) Monocytes # (Manual) POC ABG pH POC ABG pCO2 POC ABG pO2 Potassium Chloride Carbon Dioxide BUN 6 L Creatinine 0.6 L Glucose 176 H POC Glucose 160 H Calcium 7.7 L Phosphorus Magnesium AST C-Reactive Protein Total Protein Albumin Urine WBC (Auto) 04/10/18 04/10/18 04/10/18 05:29 11:55 12:59 WBC RBC Hgb Hct MCHC Lymph % (Auto) [place] % (Auto) Lymph # [place] # Seg Neutrophils % Seg Neuts % (Manual) Lymphocytes % (Manual) Monocytes % (Manual) Nucleated RBC % Seg Neutrophils # Seg Neutrophils # Man Lymphocytes # (Manual) Monocytes # (Manual) POC ABG pH 7.519 H POC ABG pCO2 29.3 L POC ABG pO2 63 L Potassium Chloride Carbon Dioxide BUN Creatinine Glucose POC Glucose 171 H 194 H Calcium Phosphorus Magnesium AST C-Reactive Protein Total Protein Albumin Urine WBC (Auto) 04/10/18 04/10/18 04/10/18 18:11 18:28 18:28 WBC 22.7 H RBC 3.62 L Hgb Hct MCHC Lymph % (Auto) [place] % (Auto) Lymph # [place] # Seg Neutrophils % Seg Neuts % (Manual) 84.0 H Lymphocytes % (Manual) 7.0 L Monocytes % (Manual) 8.0 H Nucleated RBC % Seg Neutrophils # Seg Neutrophils # Man 19.1 H Lymphocytes # (Manual) Monocytes # (Manual) 1.8 H POC ABG pH POC ABG pCO2 POC ABG pO2 Potassium Chloride Carbon Dioxide BUN Creatinine Glucose POC Glucose 118 H Calcium Phosphorus Magnesium AST C-Reactive Protein 45.20 H Total Protein Albumin Urine WBC (Auto) 04/10/18 04/10/18 04/11/18 18:28 23:45 03:35 WBC 20.9 H RBC 3.54 L Hgb 10.0 L Hct MCHC Lymph % (Auto) [place] % (Auto) Lymph # [place] # Seg Neutrophils % Seg Neuts % (Manual) 80.0 H Lymphocytes % (Manual) 6.0 L Monocytes % (Manual) Nucleated RBC % Seg Neutrophils # Seg Neutrophils # Man 16.7 H Lymphocytes # (Manual) Monocytes # (Manual) POC ABG pH POC ABG pCO2 POC ABG pO2 Potassium 3.5 L Chloride Carbon Dioxide BUN 5 L Creatinine 0.5 L Glucose 108 H POC Glucose 149 H Calcium 8.3 L Phosphorus Magnesium AST C-Reactive Protein Total Protein Albumin Urine WBC (Auto) 04/11/18 04/11/18 04/11/18 03:35 06:17 11:29 WBC RBC Hgb Hct MCHC Lymph % (Auto) [place] % (Auto) Lymph # [place] # Seg Neutrophils % Seg Neuts % (Manual) Lymphocytes % (Manual) Monocytes % (Manual) Nucleated RBC % Seg Neutrophils # Seg Neutrophils # Man Lymphocytes # (Manual) Monocytes # (Manual) POC ABG pH POC ABG pCO2 POC ABG pO2 Potassium Chloride Carbon Dioxide BUN Creatinine 0.5 L Glucose 143 H POC Glucose 155 H 158 H Calcium 8.2 L Phosphorus Magnesium AST C-Reactive Protein Total Protein 6.0 L Albumin 2.2 L Urine WBC (Auto) 07/15/18 07/15/18 07/16/18 18:13 23:51 05:29 WBC RBC Hgb Hct MCHC Lymph % (Auto) [place] % (Auto) Lymph # [place] # Seg Neutrophils % Seg Neuts % (Manual) Lymphocytes % (Manual) Monocytes % (Manual) Nucleated RBC % Seg Neutrophils # Seg Neutrophils # Man Lymphocytes # (Manual) Monocytes # (Manual) POC ABG pH POC ABG pCO2 POC ABG pO2 Potassium Chloride Carbon Dioxide BUN Creatinine Glucose POC Glucose 135 H 143 H 150 H Calcium Phosphorus Magnesium AST C-Reactive Protein Total Protein Albumin Urine WBC (Auto) 04/12/18 04/12/18 04/13/18 05:40 05:40 00:32 WBC 18.0 H RBC 3.34 L Hgb 9.5 L Hct 28.9 L MCHC Lymph % (Auto) 7.4 L [place] % (Auto) 10.8 H Lymph # [place] # 1.9 H Seg Neutrophils % 81.1 H Seg Neuts % (Manual) Lymphocytes % (Manual) Monocytes % (Manual) Nucleated RBC % Seg Neutrophils # 14.6 H Seg Neutrophils # Man Lymphocytes # (Manual) Monocytes # (Manual) POC ABG pH POC ABG pCO2 POC ABG pO2 Potassium Chloride 107.7 H Carbon Dioxide 21 L BUN Creatinine 0.6 L Glucose 140 H POC Glucose 144 H Calcium Phosphorus Magnesium AST C-Reactive Protein Total Protein Albumin Urine WBC (Auto) 04/13/18 04/13/18 04/13/18 04:20 04:20 04:20 WBC 18.1 H RBC 3.52 L Hgb 9.8 L Hct 30.1 L MCHC Lymph % (Auto) 11.1 L [place] % (Auto) 13.6 H Lymph # [place] # 2.5 H Seg Neutrophils % 74.4 H Seg Neuts % (Manual) Lymphocytes % (Manual) Monocytes % (Manual) Nucleated RBC % Seg Neutrophils # 13.4 H Seg Neutrophils # Man Lymphocytes # (Manual) Monocytes # (Manual) POC ABG pH POC ABG pCO2 POC ABG pO2 Potassium Chloride Carbon Dioxide BUN Creatinine 0.5 L Glucose 142 H POC Glucose Calcium Phosphorus Magnesium AST C-Reactive Protein 29.60 H Total Protein Albumin Urine WBC (Auto) 04/13/18 04/13/18 04/14/18 05:35 23:50 04:00 WBC 22.1 H RBC 3.59 L Hgb 9.9 L Hct MCHC Lymph % (Auto) [place] % (Auto) Lymph # [place] # Seg Neutrophils % Seg Neuts % (Manual) 73.0 H Lymphocytes % (Manual) 9.0 L Monocytes % (Manual) 11.0 H Nucleated RBC % Seg Neutrophils # Seg Neutrophils # Man 16.1 H Lymphocytes # (Manual) Monocytes # (Manual) 2.4 H POC ABG pH POC ABG pCO2 POC ABG pO2 Potassium Chloride Carbon Dioxide BUN Creatinine Glucose POC Glucose 142 H 160 H Calcium Phosphorus Magnesium AST C-Reactive Protein Total Protein Albumin Urine WBC (Auto) 04/14/18 04/14/18 04:00 05:29 WBC RBC Hgb Hct MCHC Lymph % (Auto) [place] % (Auto) Lymph # [place] # Seg Neutrophils % Seg Neuts % (Manual) Lymphocytes % (Manual) Monocytes % (Manual) Nucleated RBC % Seg Neutrophils # Seg Neutrophils # Man Lymphocytes # (Manual) Monocytes # (Manual) POC ABG pH POC ABG pCO2 POC ABG pO2 Potassium Chloride Carbon Dioxide BUN Creatinine Glucose 155 H POC Glucose 133 H Calcium Phosphorus Magnesium 2.50 H AST C-Reactive Protein Total Protein Albumin Urine WBC (Auto) Chest x-ray: report reviewed Allied health notes reviewed: RT (Start BIPAP, ANTHONY)
--- NOTE | 2018-04-14 12:01 | Progress Note ---
Assessment and Plan Assessment: 1) Sepsis: still high fever and worsening leukocytosis. Etiology most likely perf / intra-abdominal collection 2) Gastric perf and intra-abdominal fluid collection -S/P OR for ex lap, abdominal washout, repair of gastric perforation and placement of drains on 04/08/18 -04/07 peritoneal fluid + Serratia x 2 -Repeat CTA 04/09 showed no PE however increase in left pleural effusion with dense consolidation consistent with atelectasis and a large fluid collection 14 x 4.7 cm in the left lobe of the fever with air bubbles. 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 atelectasis Plan: -f/u repeat blood cx -f/u drainage cx sent on 04/10 -stop zosyn D7 -start cefepime and flagyl -continue vanco D5 -monitor purulent output and fever -repeat CT scan I am rounding on 04/16 Thank you for your consultation, will follow up with you. Katerin Cross MD Infectious Diseases Specialist [facility] ([facility]) M [phone] O [phone] Subjective Date of service: 04/14/18 Principal diagnosis: Sepsis Syndrome; Acute Hypoxemic Resp Failure; Acute Encephalopathy Interval history: Still c/o diffuse abd pain 04/06, alert, talking, tmax 101.3 Microbiology: Blood cultures: 04/07 neg 04/10 ngtd Peritoneal cultures: 04/07 Serratia x 2 04/10 ngtd Current Antimicrobials: Zosyn 04/08 vanco 04/10 Previous Antimicrobials: Fluconazole Objective - Exam Narrative Exam: General appearance: Alert in mild shortness of breath NC O2 Eyes: anicteric sclerae, moist conjunctivae; no lid-lag; PERRLA HENT: Atraumatic; oropharynx NGT Neck: Trachea midline; supple, no thyromegaly or lymphadenopathy Lungs: CTA CV: RRR Abdomen: Obese, Soft, midline surgical wound covered with dressings drain in place KRISTI R minimal purulent output KRISTI L minimal serosang output Extremities: No peripheral edema or extremity lymphadenopathy Skin: Normal temperature, turgor and texture; no rash, ulcers or subcutaneous nodules Psych: Appropriate affect, alert and oriented to person, place and time. Neuro: alert and oriented x 3. Moving all extermities Lines: right PICC, staton - Constitutional Vitals: Vital Signs Temp Pulse Resp BP Pulse Ox 100.3 F H 96 H 26 H 141/73 97 04/14/18 06:00 04/14/18 10:00 04/14/18 10:00 04/14/18 10:00 04/14/18 10:00 Temperature -Last 24 Hours Temperature 100.3 F Temperature 98.9 F Temperature 100.3 F Temperature 98.9 F Temperature 101.3 F Temperature 100.1 F Temperature 103 F Temperature 100.9 F - Labs CBC & Chem 7: 04/14/18 04:00 04/14/18 04:00 Labs: Abnormal lab results 04/13/18 04/14/18 04/14/18 Range/Units 23:50 04:00 04:00 WBC 22.1 H (4.5-11.0) K/mm3 RBC 3.59 L (3.65-5.03) M/mm3 Hgb 9.9 L (10.1-14.3) gm/dl Seg Neuts % (Manual) 73.0 H (40.0-70.0) % Lymphocytes % (Manual) 9.0 L (13.4-35.0) % Monocytes % (Manual) 11.0 H (0.0-7.3) % Seg Neutrophils # Man 16.1 H (1.8-7.7) K/mm3 Monocytes # (Manual) 2.4 H (0.0-0.8) K/mm3 Glucose 155 H (65-100) mg/dL POC Glucose 160 H (70-105) Magnesium 2.50 H (1.7-2.3) mg/dL 04/14/18 Range/Units 05:29 WBC (4.5-11.0) K/mm3 RBC (3.65-5.03) M/mm3 Hgb (10.1-14.3) gm/dl Seg Neuts % (Manual) (40.0-70.0) % Lymphocytes % (Manual) (13.4-35.0) % Monocytes % (Manual) (0.0-7.3) % Seg Neutrophils # Man (1.8-7.7) K/mm3 Monocytes # (Manual) (0.0-0.8) K/mm3 Glucose (65-100) mg/dL POC Glucose 133 H (70-105) Magnesium (1.7-2.3) mg/dL
[2018-04-14] MEDS: DILAUDID IV PRN ×2 (15:29→20:58)
[2018-04-14] MEDS: FLAGYL 500 MG/100 ML 500 MG/100 ML BAG IV SCH ×2 (15:30→23:26)
[2018-04-14] MEDS: MAXIPIME/NS 2 GM/100 ML 2 GM/100 ML BAG IV SCH ×2 (15:47→22:26)
--- NOTE | 2018-04-14 17:15 | Cat Scan Report ---
FINAL REPORT EXAM: CT ABDOMEN PELVIS W CON HISTORY: fevers- concern for fluid collection TECHNIQUE: CT examination of the ABDOMEN after IV contrast CT examination of the PELVIS after IV contrast PRIORS: 04/10/2018 FINDINGS: Slightly larger moderate left pleural effusion with adjacent lower lobe atelectasis and/or pneumonia. Very small right pleural effusion is unchanged. Postoperative hardware unchanged in the lumbosacral spine. Metal artifact limits the examination. Slight cardiomegaly. Normal-appearing liver, gallbladder, adrenals, pancreas, and spleen. Intact normal caliber abdominal aorta with slight calcified atherosclerotic plaque. Normal caliber IVC. Normal-appearing kidneys and visible ureters. Postoperative change in the anterior abdominal wall with suggestion of partially wound. Multiple percutaneous drains in the abdomen bilaterally. These likely account for slight scattered pneumoperitoneum. A fluid collection remains present anterior to the left hepatic lobe containing the distal coil of a right percutaneous drain. This fluid collection is significantly smaller than comparison exam. Small fluid collection with gas is again noted at the splenic hilum, slightly larger than before. This may reflect abscess given air and fluid level. No drain in this fluid collection. Slight pericholecystic fluid, new from prior exam. Moderate fluid in the pelvic cul-de-sac with peripheral IV contrast enhancement. It is relatively unchanged from comparison, again with approximate transverse dimensions of 4.2 x 6.1 cm. This fluid collection again appears to contain dependent calcifications, nonspecific. Peripheral enhancement is suspicious for pelvic abscess. No drain in this fluid collection. NG tube distal tip in proximal stomach. Otherwise normal-appearing stomach and duodenum. No small bowel distention in the abdomen and pelvis. Normal-appearing urinary bladder and rectum. Moderate sigmoid diverticulosis. No colonic distention. Normal-appearing cecum and terminal ileum. IMPRESSION: Slightly larger moderate left pleural effusion with adjacent left lower lobe atelectasis and/or pneumonia Unchanged very small right pleural effusion Multiple percutaneous drains in the abdomen bilaterally likely account for scattered slight pneumoperitoneum. Distal tip of 1 drain is in the smaller fluid collection anterior to the left hepatic lobe. Fluid collections adjacent to the splenic hilum, slightly larger, and pelvic cul-de-sac, unchanged, do not contain drains. New slight pericholecystic free fluid Moderate sigmoid diverticulosis
[2018-04-14] MEDS: LOPRESSOR IV SCH ×2 (19:13→23:26)
[2018-04-14] MEDS ORDERED: INTRALIPID 20% 250 ML IV SCH (20:00)
[2018-04-14] MEDS ORDERED: TPN ADULT 1,800 ML IV SCH (20:00)
[2018-04-14] MEDS: APRESOLINE IV PRN (20:41)
[2018-04-14] MEDS: TYLENOL PR PRN (21:04)
[2018-04-14] MEDS: LOVENOX SUB-Q SCH (23:24)
[2018-04-15] MEDS: VANCOMYCIN 1,500 MG in NACL 0.9% 500 ML 500 ML IV SCH ×2 (00:49→08:15)
[2018-04-15] MEDS: NORMODYNE IV PRN ×2 (01:18→16:16)
[2018-04-15] MEDS: VASOTEC IV SCH ×5 (02:47→23:56)
[2018-04-15] MEDS: SODIUM CHLORIDE FLUSH SYRINGE 10 ML IV SCH ×3 (02:51→21:19)
[2018-04-15] MEDS: MAXIPIME/NS 2 GM/100 ML 2 GM/100 ML BAG IV SCH ×3 (05:21→21:23)
[2018-04-15] MEDS: FLAGYL 500 MG/100 ML 500 MG/100 ML BAG IV SCH ×3 (05:22→21:18)
[2018-04-15 06:14] LABS: Hematocrit 28.9 % (30.3-42.9); Hemoglobin 9.4 gm/dl (10.1-14.3); Mean Corpuscular HGB Conc 33 % (30-34); Mean Corpuscular Hemoglobin 28 pg (28-32); Mean Corpuscular Volume 86 fl (79-97); Platelet Count 490 K/mm3 (140-440); Red Blood Count 3.37 M/mm3 (3.65-5.03); Red Cell Distribution Width 14.7 % (13.2-15.2)
[2018-04-15 06:32] LABS: BUN/Creatinine Ratio 19; Blood Urea Nitrogen 13 mg/dL (7-17); Hemolysis Index 0
[2018-04-15] MEDS: LOPRESSOR IV SCH ×4 (06:43→23:57)
[2018-04-15] MEDS: ZOFRAN IV PRN ×3 (06:44→16:15)
[2018-04-15] MEDS: DILAUDID IV PRN ×4 (06:50→22:00)
--- NOTE | 2018-04-15 07:50 | Progress Note ---
Assessment and Plan 58 y.o. f s/p lap sleeve gastrectomy with hiatal hernia repair and partial fundoplication 03/30, presents to ER with abdominal pain, now s/p dx lap, abdominal washout, repair of gastric perforation and placement of drains Neuro: dilualdid, morphine prn. toradol for pain control. Ativan prn for agitation for hx of anxiety -improved mentation compared to yesterday Cardio: tachycardia-waxing and waning- 2/2 fever. FL tylenol hx of HTN: enalaril IV, metop rpn Pulm: pulm toilet per ICU Left pleural effusion: no change. Pleurocentesis likely Appreciate pulmonary consult -IS CXr 04/09: left effusion, cardiomeg. no pulm congestion CT chest: no PE GI: npo, NG to low wall intermit. sunction. No manipulation of NG. NO ice chips no meds. monitor drain output -CT abd/pelvis: fluid collection anterior to liver, leak persistent. IR to place drain Nutrition: PIcc line for tpn. -monitor lytes ID: gastric perf. f/u cultures from OR. zosyn and -umbilical incision: change packing daily peritoneal cultures: serratia Pneumonia: vanco . Dosing per pharm. -ID consult appreciated Fever continues- diarrhea. questionable C.diff. If fevers continues, f/u CT abd. pelvis --> collections /Lytes: f/u am labs. monitor urine out. DVT proph: lovenox scds GI proph: protonix Out of bed to chair Subjective Narrative: Pt seen and examined. Continues to have white thick mucous drain from the right KRISTI. SOB improving. Denies chest pain. Up to chair. +void and bm. denies vomiting. +nausea. She spits up frothy spit. Objective Vital Signs - 12hr 04/14/18 04/14/18 04/14/18 19:58 20:00 20:16 Temperature 101.7 F H Pulse Rate 105 H 106 H Pulse Rate [ Anterior Bilateral] Pulse Rate [ From Monitor] Respiratory 35 H 33 H Rate Respiratory Rate [Abdomen] Respiratory Rate [Anterior Bilateral] Blood Pressure 176/83 176/83 O2 Sat by Pulse 96 99 Oximetry 04/14/18 04/14/18 04/14/18 20:30 20:39 20:40 Temperature Pulse Rate 107 H Pulse Rate [ 108 H Anterior Bilateral] Pulse Rate [ From Monitor] Respiratory 29 H Rate Respiratory Rate [Abdomen] Respiratory 29 H Rate [Anterior Bilateral] Blood Pressure 176/83 O2 Sat by Pulse 99 100 Oximetry 04/14/18 04/14/18 04/14/18 20:41 20:46 20:53 Temperature Pulse Rate 106 H 118 H Pulse Rate [ 121 H Anterior Bilateral] Pulse Rate [ From Monitor] Respiratory 40 H Rate Respiratory Rate [Abdomen] Respiratory Rate [Anterior Bilateral] Blood Pressure 195/89 193/134 O2 Sat by Pulse 98 Oximetry 04/14/18 04/14/18 04/14/18 20:54 20:58 21:00 Temperature Pulse Rate 121 H 120 H Pulse Rate [ Anterior Bilateral] Pulse Rate [ From Monitor] Respiratory 41 H 40 H 42 H Rate Respiratory Rate [Abdomen] Respiratory Rate [Anterior Bilateral] Blood Pressure 195/89 193/134 O2 Sat by Pulse 97 95 Oximetry 04/14/18 04/14/18 04/14/18 21:16 21:28 21:30 Temperature Pulse Rate 114 H 114 H Pulse Rate [ Anterior Bilateral] Pulse Rate [ From Monitor] Respiratory 36 H 22 33 H Rate Respiratory Rate [Abdomen] Respiratory Rate [Anterior Bilateral] Blood Pressure 195/89 195/89 O2 Sat by Pulse 95 95 Oximetry 04/14/18 04/14/18 04/14/18 21:46 22:00 22:16 Temperature Pulse Rate 116 H 113 H 112 H Pulse Rate [ Anterior Bilateral] Pulse Rate [ 114 H From Monitor] Respiratory 39 H 29 H 27 H Rate Respiratory 32 H Rate [Abdomen] Respiratory Rate [Anterior Bilateral] Blood Pressure 152/69 173/79 173/79 O2 Sat by Pulse 94 95 96 Oximetry 04/14/18 04/14/18 04/14/18 22:30 22:46 23:00 Temperature Pulse Rate 111 H 108 H 114 H Pulse Rate [ Anterior Bilateral] Pulse Rate [ From Monitor] Respiratory 28 H 27 H 30 H Rate Respiratory Rate [Abdomen] Respiratory Rate [Anterior Bilateral] Blood Pressure 173/79 173/79 173/79 O2 Sat by Pulse 97 97 97 Oximetry 04/14/18 04/14/18 04/14/18 23:16 23:26 23:30 Temperature Pulse Rate 114 H 113 H 115 H Pulse Rate [ Anterior Bilateral] Pulse Rate [ From Monitor] Respiratory 30 H 31 H Rate Respiratory Rate [Abdomen] Respiratory Rate [Anterior Bilateral] Blood Pressure 173/79 172/79 173/79 O2 Sat by Pulse 97 97 Oximetry 04/14/18 04/15/18 04/15/18 23:46 00:00 00:01 Temperature 98.9 F Pulse Rate 100 H 103 H Pulse Rate [ Anterior Bilateral] Pulse Rate [ From Monitor] Respiratory 29 H 27 H Rate Respiratory Rate [Abdomen] Respiratory Rate [Anterior Bilateral] Blood Pressure 173/79 173/79 O2 Sat by Pulse 97 95 Oximetry 04/15/18 04/15/18 04/15/18 00:16 00:30 00:46 Temperature Pulse Rate 102 H 101 H 101 H Pulse Rate [ Anterior Bilateral] Pulse Rate [ From Monitor] Respiratory 30 H 29 H 30 H Rate Respiratory Rate [Abdomen] Respiratory Rate [Anterior Bilateral] Blood Pressure 173/79 176/85 176/85 O2 Sat by Pulse 97 98 98 Oximetry 04/15/18 04/15/18 04/15/18 01:00 01:16 01:18 Temperature Pulse Rate 101 H 98 H 100 H Pulse Rate [ Anterior Bilateral] Pulse Rate [ From Monitor] Respiratory 26 H 27 H Rate Respiratory Rate [Abdomen] Respiratory Rate [Anterior Bilateral] Blood Pressure 176/85 184/76 184/76 O2 Sat by Pulse 98 97 Oximetry 04/15/18 04/15/18 04/15/18 01:32 01:45 02:00 Temperature Pulse Rate 94 H 94 H 95 H Pulse Rate [ Anterior Bilateral] Pulse Rate [ 95 H From Monitor] Respiratory 27 H 29 H 25 H Rate Respiratory Rate [Abdomen] Respiratory Rate [Anterior Bilateral] Blood Pressure 149/71 149/71 160/73 O2 Sat by Pulse 98 98 97 Oximetry 04/15/18 04/15/18 04/15/18 02:16 02:30 02:46 Temperature Pulse Rate 95 H 94 H 97 H Pulse Rate [ Anterior Bilateral] Pulse Rate [ From Monitor] Respiratory 25 H 29 H 28 H Rate Respiratory Rate [Abdomen] Respiratory Rate [Anterior Bilateral] Blood Pressure 160/73 160/73 160/73 O2 Sat by Pulse 99 99 99 Oximetry 04/15/18 04/15/18 04/15/18 02:47 03:00 03:16 Temperature Pulse Rate 96 H 96 H 96 H Pulse Rate [ Anterior Bilateral] Pulse Rate [ From Monitor] Respiratory 29 H 28 H Rate Respiratory Rate [Abdomen] Respiratory Rate [Anterior Bilateral] Blood Pressure 160/73 173/75 173/75 O2 Sat by Pulse 97 99 Oximetry 04/15/18 04/15/18 04/15/18 03:30 04:00 06:09 Temperature 98.8 F Pulse Rate 95 H Pulse Rate [ Anterior Bilateral] Pulse Rate [ From Monitor] Respiratory 30 H Rate Respiratory Rate [Abdomen] Respiratory Rate [Anterior Bilateral] Blood Pressure 173/75 O2 Sat by Pulse 99 95 Oximetry 04/15/18 04/15/18 04/15/18 06:43 06:44 06:50 Temperature Pulse Rate 96 H 96 H Pulse Rate [ Anterior Bilateral] Pulse Rate [ From Monitor] Respiratory 27 H Rate Respiratory Rate [Abdomen] Respiratory Rate [Anterior Bilateral] Blood Pressure 170/86 170/86 O2 Sat by Pulse Oximetry - General physical appearance well developed, well nourished - Respiratory normal expansion, normal respiratory effort - Abdomen soft, other (tendfer at incision sites. no rebound no guarding KRISTI x [address] place[address] ) - Integumentary no rash, no growths - Neurologic normal coordination - Musculoskeletal normal posture - Psychiatric oriented to time, oriented to person, oriented to place - Labs 04/16/18 06:12 04/16/18 08:52 Diabetes panel 04/15/18 Range/Units 04:42 Sodium 145 (137-145) mmol/L Potassium 3.4 L (3.6-5.0) mmol/L Chloride 107.5 H (98-107) mmol/L Carbon Dioxide 21 L (22-30) mmol/L BUN 13 (7-17) mg/dL Creatinine 0.7 (0.7-1.2) mg/dL Glucose 165 H (65-100) mg/dL Calcium 8.0 L (8.4-10.2) mg/dL Calcium panel 04/15/18 Range/Units 04:42 Calcium 8.0 L (8.4-10.2) mg/dL Phosphorus 3.10 (2.5-4.5) mg/dL Pituitary panel 04/15/18 Range/Units 04:42 Sodium 145 (137-145) mmol/L Potassium 3.4 L (3.6-5.0) mmol/L Chloride 107.5 H (98-107) mmol/L Carbon Dioxide 21 L (22-30) mmol/L BUN 13 (7-17) mg/dL Creatinine 0.7 (0.7-1.2) mg/dL Glucose 165 H (65-100) mg/dL Calcium 8.0 L (8.4-10.2) mg/dL Adrenal panel 04/15/18 Range/Units 04:42 Sodium 145 (137-145) mmol/L Potassium 3.4 L (3.6-5.0) mmol/L Chloride 107.5 H (98-107) mmol/L Carbon Dioxide 21 L (22-30) mmol/L BUN 13 (7-17) mg/dL Creatinine 0.7 (0.7-1.2) mg/dL Glucose 165 H (65-100) mg/dL Calcium 8.0 L (8.4-10.2) mg/dL
[2018-04-15 08:02] LABS: Band Neutrophils # (Manual) 1.3 K/mm3; Basophils % (Manual) 0 % (0.0-1.8); Eosinophils % (Manual) 0 % (0.0-4.3); Platelet Estimate Consistent w Auto; RBC Morphology Normal; Total Cells Counted 100
--- NOTE | 2018-04-15 08:44 | Progress Note ---
Assessment and Plan Sepsis with altered mental status in the setting of the systemic inflammatory response syndrome. Perforated abdominal viscus status post exploratory laparotomy and repair. Obesity. Pleural effusion Bilateral lower lobe infiltrates Obstructive sleep apnea according to the history. Acute encephalopathy, presumably toxic metabolic. History of hypertension. Arthritis. Gastroesophageal reflux disease. Morbid obesity. Acute hypoxemic respiratory failure Leukocytosis - continue supplemental oxygen to keep sats > 90% -clinically improving from a respiratory standpoint, get CXR in am and then determine need for thoracentesis - BIPAP qhs and prn - Continue incentive spirometry and airway expansion measures -Gentle diuresis while monitoring hemodynamics, electrolyte profile and renal function -bronchodilators( short acting bronchodilators, scheduled) -Antibiotics per ID( peritoneal fluid cultures +for GNR, Serratia) -Monitor fever curve and trend WCC -IR for percutaneous drainage of intra-abdominal fluid collection, per discussions with Surgeon - continue TPN - PT/OT evaluate and treat - continue GI & VTE prophylaxis - wound care per WCT / RN and surgeon - continue other care per attending / other consultants Discussed with surgery service Discussed care plan with RT and RN, updated patient Subjective Date of service: 04/15/18 Principal diagnosis: Sepsis Syndrome; Acute Hypoxemic Resp Failure; Acute Encephalopathy Interval history: Sepsis Syndrome; Acute Hypoxemic Resp Failure; Acute Encephalopathy Seen and examined at bedside; 24hour events reviewed; nursing and respiratory care staff consulted; no adverse overnight events reported to me; resting in bed ; much more appropriate mentally; No N/V/F/C; remains off vasopressors; , clinically improved from a respiratory standpoint. Tolerating BIPAP at night. Sitting OOB in a chair with PT Discussed in IDT-ICU rounds Discussed with surgeon. Objective Vital Signs - 12hr 04/14/18 04/14/18 04/14/18 20:46 20:53 20:54 Temperature Pulse Rate 118 H 121 H Pulse Rate [ 121 H Anterior Bilateral] Pulse Rate [ From Monitor] Respiratory 40 H 41 H Rate Respiratory Rate [Abdomen] Blood Pressure 193/134 195/89 O2 Sat by Pulse 98 97 Oximetry 04/14/18 04/14/18 04/14/18 20:58 21:00 21:16 Temperature Pulse Rate 120 H 114 H Pulse Rate [ Anterior Bilateral] Pulse Rate [ From Monitor] Respiratory 40 H 42 H 36 H Rate Respiratory Rate [Abdomen] Blood Pressure 193/134 195/89 O2 Sat by Pulse 95 95 Oximetry 04/14/18 04/14/18 04/14/18 21:28 21:30 21:46 Temperature Pulse Rate 114 H 116 H Pulse Rate [ Anterior Bilateral] Pulse Rate [ From Monitor] Respiratory 22 33 H 39 H Rate Respiratory Rate [Abdomen] Blood Pressure 195/89 152/69 O2 Sat by Pulse 95 94 Oximetry 04/14/18 04/14/18 04/14/18 22:00 22:16 22:30 Temperature Pulse Rate 113 H 112 H 111 H Pulse Rate [ Anterior Bilateral] Pulse Rate [ 114 H From Monitor] Respiratory 29 H 27 H 28 H Rate Respiratory 32 H Rate [Abdomen] Blood Pressure 173/79 173/79 173/79 O2 Sat by Pulse 95 96 97 Oximetry 04/14/18 04/14/18 04/14/18 22:46 23:00 23:16 Temperature Pulse Rate 108 H 114 H 114 H Pulse Rate [ Anterior Bilateral] Pulse Rate [ From Monitor] Respiratory 27 H 30 H 30 H Rate Respiratory Rate [Abdomen] Blood Pressure 173/79 173/79 173/79 O2 Sat by Pulse 97 97 97 Oximetry 04/14/18 04/14/18 04/14/18 23:26 23:30 23:46 Temperature Pulse Rate 113 H 115 H 100 H Pulse Rate [ Anterior Bilateral] Pulse Rate [ From Monitor] Respiratory 31 H 29 H Rate Respiratory Rate [Abdomen] Blood Pressure 172/79 173/79 173/79 O2 Sat by Pulse 97 97 Oximetry 04/15/18 04/15/18 04/15/18 00:00 00:01 00:16 Temperature 98.9 F Pulse Rate 103 H 102 H Pulse Rate [ Anterior Bilateral] Pulse Rate [ From Monitor] Respiratory 27 H 30 H Rate Respiratory Rate [Abdomen] Blood Pressure 173/79 173/79 O2 Sat by Pulse 95 97 Oximetry 04/15/18 04/15/18 04/15/18 00:30 00:46 01:00 Temperature Pulse Rate 101 H 101 H 101 H Pulse Rate [ Anterior Bilateral] Pulse Rate [ From Monitor] Respiratory 29 H 30 H 26 H Rate Respiratory Rate [Abdomen] Blood Pressure 176/85 176/85 176/85 O2 Sat by Pulse 98 98 98 Oximetry 04/15/18 04/15/18 04/15/18 01:16 01:18 01:32 Temperature Pulse Rate 98 H 100 H 94 H Pulse Rate [ Anterior Bilateral] Pulse Rate [ From Monitor] Respiratory 27 H 27 H Rate Respiratory Rate [Abdomen] Blood Pressure 184/76 184/76 149/71 O2 Sat by Pulse 97 98 Oximetry 04/15/18 04/15/18 04/15/18 01:45 02:00 02:16 Temperature Pulse Rate 94 H 95 H 95 H Pulse Rate [ Anterior Bilateral] Pulse Rate [ 95 H From Monitor] Respiratory 29 H 25 H 25 H Rate Respiratory Rate [Abdomen] Blood Pressure 149/71 160/73 160/73 O2 Sat by Pulse 98 97 99 Oximetry 04/15/18 04/15/18 04/15/18 02:30 02:46 02:47 Temperature Pulse Rate 94 H 97 H 96 H Pulse Rate [ Anterior Bilateral] Pulse Rate [ From Monitor] Respiratory 29 H 28 H Rate Respiratory Rate [Abdomen] Blood Pressure 160/73 160/73 160/73 O2 Sat by Pulse 99 99 Oximetry 04/15/18 04/15/18 04/15/18 03:00 03:16 03:30 Temperature Pulse Rate 96 H 96 H 95 H Pulse Rate [ Anterior Bilateral] Pulse Rate [ From Monitor] Respiratory 29 H 28 H 30 H Rate Respiratory Rate [Abdomen] Blood Pressure 173/75 173/75 173/75 O2 Sat by Pulse 97 99 99 Oximetry 04/15/18 04/15/18 04/15/18 03:46 04:00 04:15 Temperature 98.8 F Pulse Rate 95 H 94 H 95 H Pulse Rate [ Anterior Bilateral] Pulse Rate [ From Monitor] Respiratory 24 25 H 25 H Rate Respiratory Rate [Abdomen] Blood Pressure 173/75 162/80 162/80 O2 Sat by Pulse 98 97 99 Oximetry 04/15/18 04/15/18 04/15/18 04:31 04:45 05:00 Temperature Pulse Rate 97 H 94 H 92 H Pulse Rate [ Anterior Bilateral] Pulse Rate [ From Monitor] Respiratory 29 H 27 H 29 H Rate Respiratory Rate [Abdomen] Blood Pressure 162/80 162/80 144/67 O2 Sat by Pulse 98 98 96 Oximetry 04/15/18 04/15/18 04/15/18 05:15 05:31 05:45 Temperature Pulse Rate 93 H 93 H 92 H Pulse Rate [ Anterior Bilateral] Pulse Rate [ From Monitor] Respiratory 26 H 27 H 31 H Rate Respiratory Rate [Abdomen] Blood Pressure 144/67 144/67 144/67 O2 Sat by Pulse 98 99 99 Oximetry 04/15/18 04/15/18 04/15/18 06:00 06:01 06:09 Temperature Pulse Rate Pulse Rate [ Anterior Bilateral] Pulse Rate [ 92 H From Monitor] Respiratory 31 H Rate Respiratory Rate [Abdomen] Blood Pressure 170/86 O2 Sat by Pulse 99 98 95 Oximetry 04/15/18 04/15/18 04/15/18 06:15 06:30 06:43 Temperature Pulse Rate 93 H 95 H 96 H Pulse Rate [ Anterior Bilateral] Pulse Rate [ From Monitor] Respiratory 30 H 26 H Rate Respiratory Rate [Abdomen] Blood Pressure 144/67 170/86 170/86 O2 Sat by Pulse 99 99 Oximetry 04/15/18 04/15/18 04/15/18 06:44 06:45 06:50 Temperature Pulse Rate 96 H 89 Pulse Rate [ Anterior Bilateral] Pulse Rate [ From Monitor] Respiratory 28 H 27 H Rate Respiratory Rate [Abdomen] Blood Pressure 170/86 170/86 O2 Sat by Pulse 98 Oximetry 04/15/18 04/15/18 04/15/18 07:00 07:15 07:20 Temperature Pulse Rate 88 88 Pulse Rate [ Anterior Bilateral] Pulse Rate [ From Monitor] Respiratory 27 H 28 H 25 H Rate Respiratory Rate [Abdomen] Blood Pressure 179/78 177/72 O2 Sat by Pulse 98 99 Oximetry 04/15/18 04/15/18 04/15/18 07:31 07:45 08:00 Temperature 98.5 F Pulse Rate 90 90 91 H Pulse Rate [ Anterior Bilateral] Pulse Rate [ From Monitor] Respiratory 25 H 25 H 28 H Rate Respiratory Rate [Abdomen] Blood Pressure 177/72 177/72 172/77 O2 Sat by Pulse 99 98 97 Oximetry 04/15/18 08:15 Temperature Pulse Rate 95 H Pulse Rate [ Anterior Bilateral] Pulse Rate [ From Monitor] Respiratory 28 H Rate Respiratory Rate [Abdomen] Blood Pressure 172/77 O2 Sat by Pulse 98 Oximetry Constitutional: no acute distress, other (elderly AAF , normocephalic and atraumatic resting in bed with mildly increased work of breathing) Eyes: non-icteric ENT: oropharynx moist, other (no thyromegaly) Neck: supple, no lymphadenopathy, no JVD, other (large neck circumference) Effort: mildly labored Ascultation: Bilateral: diminished breath sounds, rhonchi (scant in bases) Percussion: Bilateral: not dull Cardiovascular: regular rate and rhythm, other (No R/M) Gastrointestinal: hypoactive bowel sounds, soft, tender (around operative site) , non-distended, other (no palpable HSM) Integumentary: normal Extremities: no cyanosis, no edema, pulses normal, no ischemia or petechiae Neurologic: non-focal exam (grossly), pupils equal and round, CN II-XII normal, motor strength normal and Psychiatric: mood appropriate, affect normal CBC and BMP: 04/16/18 06:12 04/16/18 06:12 ABG, PT/INR, D-dimer: ABG POC ABG pH 7.519 (7.35-7.45) H 04/10/18 12:59 POC ABG pCO2 29.3 (35-45) L 04/10/18 12:59 POC ABG pO2 63 (80-105) L 04/10/18 12:59 POC ABG HCO3 23.9 04/10/18 12:59 POC ABG Total CO2 25 04/10/18 12:59 POC ABG O2 Sat 94 04/10/18 12:59 PT/INR, D-dimer PT 13.5 Sec. (12.2-14.9) 04/07/18 09:41 INR 0.98 (0.87-1.13) 04/07/18 09:41 Abnormal lab findings: Abnormal Labs 04/07/18 04/07/18 04/07/18 00:05 00:05 09:41 WBC 18.4 H 21.3 H RBC Hgb Hct MCHC Plt Count Lymph % (Auto) 4.5 L [place] % (Auto) Lymph # 0.8 L [place] # 1.2 H Seg Neutrophils % 88.9 H Seg Neuts % (Manual) 85.0 H Lymphocytes % (Manual) 4.0 L Monocytes % (Manual) Nucleated RBC % Seg Neutrophils # 16.4 H Seg Neutrophils # Man 18.1 H Lymphocytes # (Manual) 0.9 L Monocytes # (Manual) 1.1 H POC ABG pH POC ABG pCO2 POC ABG pO2 Potassium Chloride Carbon Dioxide BUN Creatinine Glucose 123 H POC Glucose Calcium 8.0 L Phosphorus Magnesium 1.60 L AST 59 H C-Reactive Protein Total Protein Albumin 2.9 L Urine WBC (Auto) 04/07/18 04/08/18 04/08/18 09:41 00:20 10:25 WBC 19.2 H RBC Hgb Hct MCHC Plt Count Lymph % (Auto) 5.4 L [place] % (Auto) Lymph # 1.0 L [place] # 1.1 H Seg Neutrophils % 88.9 H Seg Neuts % (Manual) Lymphocytes % (Manual) Monocytes % (Manual) Nucleated RBC % Seg Neutrophils # 17.1 H Seg Neutrophils # Man Lymphocytes # (Manual) Monocytes # (Manual) POC ABG pH POC ABG pCO2 POC ABG pO2 Potassium 3.3 L Chloride 95.1 L Carbon Dioxide 21 L BUN Creatinine Glucose 113 H POC Glucose Calcium Phosphorus Magnesium AST C-Reactive Protein Total Protein Albumin 3.6 L Urine WBC (Auto) 45.0 H 04/08/18 04/08/18 04/08/18 10:25 13:33 23:53 WBC 12.8 H RBC Hgb Hct MCHC Plt Count Lymph % (Auto) [place] % (Auto) Lymph # [place] # Seg Neutrophils % Seg Neuts % (Manual) 97.0 H Lymphocytes % (Manual) 2.0 L Monocytes % (Manual) Nucleated RBC % Seg Neutrophils # Seg Neutrophils # Man 12.4 H Lymphocytes # (Manual) 0.3 L Monocytes # (Manual) POC ABG pH POC ABG pCO2 POC ABG pO2 Potassium 3.5 L Chloride Carbon Dioxide BUN Creatinine Glucose 123 H POC Glucose Calcium 7.9 L Phosphorus Magnesium AST 53 H C-Reactive Protein 52.00 H Total Protein 6.1 L Albumin 2.7 L Urine WBC (Auto) 04/09/18 04/09/18 04/09/18 04:20 04:20 13:38 WBC 16.2 H RBC Hgb Hct MCHC Plt Count Lymph % (Auto) [place] % (Auto) Lymph # [place] # Seg Neutrophils % Seg Neuts % (Manual) 89.0 H Lymphocytes % (Manual) 4.0 L Monocytes % (Manual) Nucleated RBC % Seg Neutrophils # Seg Neutrophils # Man 14.4 H Lymphocytes # (Manual) 0.6 L Monocytes # (Manual) POC ABG pH 7.494 H POC ABG pCO2 31.6 L POC ABG pO2 68 L Potassium 3.5 L Chloride Carbon Dioxide BUN Creatinine 0.6 L Glucose 117 H POC Glucose Calcium 7.9 L Phosphorus 1.50 L D Magnesium AST C-Reactive Protein Total Protein 5.6 L Albumin 2.9 L Urine WBC (Auto) 04/09/18 04/09/18 04/09/18 18:25 21:45 21:45 WBC 21.3 H RBC 3.62 L Hgb Hct MCHC 35 H Plt Count Lymph % (Auto) [place] % (Auto) Lymph # [place] # Seg Neutrophils % Seg Neuts % (Manual) 90.0 H Lymphocytes % (Manual) 6.0 L Monocytes % (Manual) Nucleated RBC % 1.0 H Seg Neutrophils # Seg Neutrophils # Man 19.2 H Lymphocytes # (Manual) Monocytes # (Manual) 0.9 H POC ABG pH POC ABG pCO2 POC ABG pO2 Potassium Chloride Carbon Dioxide BUN 5 L Creatinine 0.5 L Glucose 134 H POC Glucose 155 H Calcium 7.9 L Phosphorus 2.20 L D Magnesium AST C-Reactive Protein Total Protein Albumin Urine WBC (Auto) 04/09/18 04/10/18 04/10/18 23:38 04:07 04:07 WBC 20.2 H RBC 3.38 L Hgb 9.4 L Hct 28.9 L MCHC Plt Count Lymph % (Auto) [place] % (Auto) Lymph # [place] # Seg Neutrophils % Seg Neuts % (Manual) Lymphocytes % (Manual) 6.0 L Monocytes % (Manual) Nucleated RBC % Seg Neutrophils # Seg Neutrophils # Man 10.7 H Lymphocytes # (Manual) Monocytes # (Manual) POC ABG pH POC ABG pCO2 POC ABG pO2 Potassium Chloride Carbon Dioxide BUN 6 L Creatinine 0.6 L Glucose 176 H POC Glucose 160 H Calcium 7.7 L Phosphorus Magnesium AST C-Reactive Protein Total Protein Albumin Urine WBC (Auto) 04/10/18 04/10/18 04/10/18 05:29 11:55 12:59 WBC RBC Hgb Hct MCHC Plt Count Lymph % (Auto) [place] % (Auto) Lymph # [place] # Seg Neutrophils % Seg Neuts % (Manual) Lymphocytes % (Manual) Monocytes % (Manual) Nucleated RBC % Seg Neutrophils # Seg Neutrophils # Man Lymphocytes # (Manual) Monocytes # (Manual) POC ABG pH 7.519 H POC ABG pCO2 29.3 L POC ABG pO2 63 L Potassium Chloride Carbon Dioxide BUN Creatinine Glucose POC Glucose 171 H 194 H Calcium Phosphorus Magnesium AST C-Reactive Protein Total Protein Albumin Urine WBC (Auto) 04/10/18 04/10/18 04/10/18 18:11 18:28 18:28 WBC 22.7 H RBC 3.62 L Hgb Hct MCHC Plt Count Lymph % (Auto) [place] % (Auto) Lymph # [place] # Seg Neutrophils % Seg Neuts % (Manual) 84.0 H Lymphocytes % (Manual) 7.0 L Monocytes % (Manual) 8.0 H Nucleated RBC % Seg Neutrophils # Seg Neutrophils # Man 19.1 H Lymphocytes # (Manual) Monocytes # (Manual) 1.8 H POC ABG pH POC ABG pCO2 POC ABG pO2 Potassium Chloride Carbon Dioxide BUN Creatinine Glucose POC Glucose 118 H Calcium Phosphorus Magnesium AST C-Reactive Protein 45.20 H Total Protein Albumin Urine WBC (Auto) 04/10/18 04/10/18 04/11/18 18:28 23:45 03:35 WBC 20.9 H RBC 3.54 L Hgb 10.0 L Hct MCHC Plt Count Lymph % (Auto) [place] % (Auto) Lymph # [place] # Seg Neutrophils % Seg Neuts % (Manual) 80.0 H Lymphocytes % (Manual) 6.0 L Monocytes % (Manual) Nucleated RBC % Seg Neutrophils # Seg Neutrophils # Man 16.7 H Lymphocytes # (Manual) Monocytes # (Manual) POC ABG pH POC ABG pCO2 POC ABG pO2 Potassium 3.5 L Chloride Carbon Dioxide BUN 5 L Creatinine 0.5 L Glucose 108 H POC Glucose 149 H Calcium 8.3 L Phosphorus Magnesium AST C-Reactive Protein Total Protein Albumin Urine WBC (Auto) 04/11/18 04/11/18 04/11/18 03:35 06:17 11:29 WBC RBC Hgb Hct MCHC Plt Count Lymph % (Auto) [place] % (Auto) Lymph # [place] # Seg Neutrophils % Seg Neuts % (Manual) Lymphocytes % (Manual) Monocytes % (Manual) Nucleated RBC % Seg Neutrophils # Seg Neutrophils # Man Lymphocytes # (Manual) Monocytes # (Manual) POC ABG pH POC ABG pCO2 POC ABG pO2 Potassium Chloride Carbon Dioxide BUN Creatinine 0.5 L Glucose 143 H POC Glucose 155 H 158 H Calcium 8.2 L Phosphorus Magnesium AST C-Reactive Protein Total Protein 6.0 L Albumin 2.2 L Urine WBC (Auto) 04/11/18 04/11/18 04/12/18 18:13 23:51 05:29 WBC RBC Hgb Hct MCHC Plt Count Lymph % (Auto) [place] % (Auto) Lymph # [place] # Seg Neutrophils % Seg Neuts % (Manual) Lymphocytes % (Manual) Monocytes % (Manual) Nucleated RBC % Seg Neutrophils # Seg Neutrophils # Man Lymphocytes # (Manual) Monocytes # (Manual) POC ABG pH POC ABG pCO2 POC ABG pO2 Potassium Chloride Carbon Dioxide BUN Creatinine Glucose POC Glucose 135 H 143 H 150 H Calcium Phosphorus Magnesium AST C-Reactive Protein Total Protein Albumin Urine WBC (Auto) 04/12/18 04/12/18 04/13/18 05:40 05:40 00:32 WBC 18.0 H RBC 3.34 L Hgb 9.5 L Hct 28.9 L MCHC Plt Count Lymph % (Auto) 7.4 L [place] % (Auto) 10.8 H Lymph # [place] # 1.9 H Seg Neutrophils % 81.1 H Seg Neuts % (Manual) Lymphocytes % (Manual) Monocytes % (Manual) Nucleated RBC % Seg Neutrophils # 14.6 H Seg Neutrophils # Man Lymphocytes # (Manual) Monocytes # (Manual) POC ABG pH POC ABG pCO2 POC ABG pO2 Potassium Chloride 107.7 H Carbon Dioxide 21 L BUN Creatinine 0.6 L Glucose 140 H POC Glucose 144 H Calcium Phosphorus Magnesium AST C-Reactive Protein Total Protein Albumin Urine WBC (Auto) 04/13/18 04/13/18 04/13/18 04:20 04:20 04:20 WBC 18.1 H RBC 3.52 L Hgb 9.8 L Hct 30.1 L MCHC Plt Count Lymph % (Auto) 11.1 L [place] % (Auto) 13.6 H Lymph # [place] # 2.5 H Seg Neutrophils % 74.4 H Seg Neuts % (Manual) Lymphocytes % (Manual) Monocytes % (Manual) Nucleated RBC % Seg Neutrophils # 13.4 H Seg Neutrophils # Man Lymphocytes # (Manual) Monocytes # (Manual) POC ABG pH POC ABG pCO2 POC ABG pO2 Potassium Chloride Carbon Dioxide BUN Creatinine 0.5 L Glucose 142 H POC Glucose Calcium Phosphorus Magnesium AST C-Reactive Protein 29.60 H Total Protein Albumin Urine WBC (Auto) 04/13/18 04/13/18 04/14/18 05:35 23:50 04:00 WBC 22.1 H RBC 3.59 L Hgb 9.9 L Hct MCHC Plt Count Lymph % (Auto) [place] % (Auto) Lymph # [place] # Seg Neutrophils % Seg Neuts % (Manual) 73.0 H Lymphocytes % (Manual) 9.0 L Monocytes % (Manual) 11.0 H Nucleated RBC % Seg Neutrophils # Seg Neutrophils # Man 16.1 H Lymphocytes # (Manual) Monocytes # (Manual) 2.4 H POC ABG pH POC ABG pCO2 POC ABG pO2 Potassium Chloride Carbon Dioxide BUN Creatinine Glucose POC Glucose 142 H 160 H Calcium Phosphorus Magnesium AST C-Reactive Protein Total Protein Albumin Urine WBC (Auto) 04/14/18 04/14/18 04/14/18 04:00 05:29 12:47 WBC RBC Hgb Hct MCHC Plt Count Lymph % (Auto) [place] % (Auto) Lymph # [place] # Seg Neutrophils % Seg Neuts % (Manual) Lymphocytes % (Manual) Monocytes % (Manual) Nucleated RBC % Seg Neutrophils # Seg Neutrophils # Man Lymphocytes # (Manual) Monocytes # (Manual) POC ABG pH POC ABG pCO2 POC ABG pO2 Potassium Chloride Carbon Dioxide BUN Creatinine Glucose 155 H POC Glucose 133 H 183 H Calcium Phosphorus Magnesium 2.50 H AST C-Reactive Protein Total Protein Albumin Urine WBC (Auto) 04/14/18 04/14/18 04/15/18 16:01 23:42 04:42 WBC RBC Hgb Hct MCHC Plt Count Lymph % (Auto) [place] % (Auto) Lymph # [place] # Seg Neutrophils % Seg Neuts % (Manual) Lymphocytes % (Manual) Monocytes % (Manual) Nucleated RBC % Seg Neutrophils # Seg Neutrophils # Man Lymphocytes # (Manual) Monocytes # (Manual) POC ABG pH POC ABG pCO2 POC ABG pO2 Potassium 3.4 L Chloride 107.5 H Carbon Dioxide 21 L BUN Creatinine Glucose 165 H POC Glucose 153 H 172 H Calcium 8.0 L Phosphorus Magnesium 2.40 H AST C-Reactive Protein Total Protein Albumin Urine WBC (Auto) 04/15/18 04/15/18 04:42 05:49 WBC 21.5 H RBC 3.37 L Hgb 9.4 L Hct 28.9 L MCHC Plt Count 490 H Lymph % (Auto) [place] % (Auto) Lymph # [place] # Seg Neutrophils % Seg Neuts % (Manual) 77.0 H Lymphocytes % (Manual) 7.0 L Monocytes % (Manual) 10.0 H Nucleated RBC % Seg Neutrophils # Seg Neutrophils # Man 16.6 H Lymphocytes # (Manual) Monocytes # (Manual) 2.2 H POC ABG pH POC ABG pCO2 POC ABG pO2 Potassium Chloride Carbon Dioxide BUN Creatinine Glucose POC Glucose 147 H Calcium Phosphorus Magnesium AST C-Reactive Protein Total Protein Albumin Urine WBC (Auto) Allied health notes reviewed: RT (BIPAP qhs, currently on 2L NC)
[2018-04-15] MEDS: PULMICORT IH SCH ×2 (08:52→22:26)
[2018-04-15] MEDS: BROVANA NEBU IH SCH ×2 (08:52→22:25)
[2018-04-15] MEDS ORDERED: CATHFLO IV ONE (09:00)
[2018-04-15] MEDS: PROTONIX IV SCH (10:17)
[2018-04-15] MEDS: VANCOMYCIN 1,750 MG in NACL 0.9% 500 ML 500 ML IV SCH ×2 (13:13→21:17)
[2018-04-15] MEDS ORDERED: TPN ADULT 1,800 ML IV SCH (20:00)
--- NOTE | 2018-04-15 20:49 | XRay Report ---
FINAL REPORT EXAM: XR CHEST 1V AP HISTORY: ETT placement TECHNIQUE: AP portable view of the chest PRIORS: None. FINDINGS: Lines, tubes, and devices: There is a battery compartment over the left axilla with lead terminating in the left neck. A nasogastric tube tip terminates below the left hemidiaphragm, likely in the stomach. There is a right subclavian PICC line terminating in the distal superior vena cava. Other tubing in lines overlie the upper abdomen. Lungs and pleura: Trachea is normal in position. There is perihilar vascular congestion. Haziness throughout the left lung is probably due to pleural fluid tracking posteriorly. Cardiomediastinal silhouette: Cardiac and mediastinal silhouettes are unremarkable. Other: Bony structures are intact. IMPRESSION: Probable left pleural effusion and perihilar vascular congestion
[2018-04-15] MEDS: LOVENOX SUB-Q SCH (21:18)
[2018-04-15] MEDS: APRESOLINE IV PRN (21:25)
[2018-04-15] MEDS: ATIVAN IV PRN (22:00)
[2018-04-16] MEDS: DILAUDID IV PRN ×3 (01:19→21:54)
--- NOTE | 2018-04-16 03:13 | XRay Report ---
FINAL REPORT EXAM: XR CHEST 1V AP HISTORY: follow up respiratory failure TECHNIQUE: A portable supine view the chest was obtained and compared to the study of 04/15/2018. FINDINGS: The heart is mildly enlarged. There haziness in left hemithorax most likely to underlying effusion. The lungs are not overtly congested. There is a PICC line in the right side with tip in the distal superior vena cava. There is an NG tube in place with the tip in the stomach. There is a pacemaker device overlying the left chest wall with lead directed into the left side of the neck. The skeletal structures do not show any acute changes. IMPRESSION: Cardiomegaly. Left-sided effusion. No evidence of congestion.
[2018-04-16 06:29] LABS: Mean Corpuscular HGB Conc 29 % (30-34); Mean Corpuscular Hemoglobin 28 pg (28-32); Mean Corpuscular Volume 96 fl (79-97); Platelet Count 498 K/mm3 (140-440); Red Blood Count 3.25 M/mm3 (3.65-5.03); Red Cell Distribution Width 16.7 % (13.2-15.2)
[2018-04-16 06:36] LABS: Hematocrit 31.2 % (30.3-42.9)
[2018-04-16] MEDS: VANCOMYCIN 1,750 MG in NACL 0.9% 500 ML 500 ML IV SCH ×3 (06:44→22:19)
[2018-04-16] MEDS: VASOTEC IV SCH ×4 (06:49→23:22)
[2018-04-16] MEDS: MAXIPIME/NS 2 GM/100 ML 2 GM/100 ML BAG IV SCH ×3 (06:51→21:08)
[2018-04-16] MEDS: LOPRESSOR IV SCH ×4 (06:52→23:31)
[2018-04-16] MEDS: FLAGYL 500 MG/100 ML 500 MG/100 ML BAG IV SCH ×3 (06:56→21:22)
[2018-04-16 07:00] LABS: BUN/Creatinine Ratio TNR; Blood Urea Nitrogen TNR mg/dL (7-17); Calcium TNR mg/dL (8.4-10.2); Hemolysis Index TNR
[2018-04-16] MEDS: BROVANA NEBU IH SCH ×2 (08:04→19:41)
[2018-04-16] MEDS: PULMICORT IH SCH ×2 (08:04→19:40)
[2018-04-16 08:05] LABS: Anisocytosis 1+; Band Neutrophils # (Manual) 0.2 K/mm3; Basophils % (Manual) 0 % (0.0-1.8); Eosinophils % (Manual) 0 % (0.0-4.3); Total Cells Counted 100
[2018-04-16 08:06] LABS: Platelet Estimate Cons
[2018-04-16] MEDS: ZOFRAN IV PRN (08:52)
[2018-04-16] MEDS: APRESOLINE IV PRN (08:52)
--- NOTE | 2018-04-16 09:15 | Progress Note ---
Assessment and Plan Assessment: 1) Sepsis: still high fever and worsening leukocytosis. Etiology most likely perf / intra-abdominal collection 2) Gastric perf and intra-abdominal fluid collection -S/P OR for ex lap, abdominal washout, repair of gastric perforation and placement of drains on 04/08/18 -04/07 peritoneal fluid + Serratia x 2 -Repeat CTA 04/09 showed no PE however increase in left pleural effusion with dense consolidation consistent with atelectasis and a large fluid collection 14 x 4.7 cm in the left lobe of the fever with air bubbles. -CRP=52 --> 45 -Repeat CT showed large left pleural effusion, smaller left hep lobe collection and large splenic collection 4.2x6.1 cm 3) S/P lap sleeve gastrectomy with hiatal hernia repair and partial fundoplication 03/30/18 4) Presumed pnemonia vs. atelectasis Plan: -to have an extra drain placement -continue cefepime and flagyl D3 (s/p zosyn 7 days) -continue vanco D7 -monitor fever and leukocytosis -manage nausea and vomiting Discussed with Dr Wynn Thank you for your consultation, will follow up with you. Katerin Cross MD Infectious Diseases Specialist [facility] ([facility]) M [phone] O [phone] Subjective Date of service: 04/16/18 Principal diagnosis: Sepsis Syndrome; Acute Hypoxemic Resp Failure; Acute Encephalopathy Interval history: Still c/o diffuse abd pain 04/06, nausea and vomiting alert, talking, tmax 101.7 Microbiology: Blood cultures: 04/07 neg 04/10 ngtd Peritoneal cultures: 04/07 Serratia x 2 04/10 ngtd Current Antimicrobials: cefepime and flagyl 04/14 vanco 04/10 Previous Antimicrobials: Fluconazole Zosyn 04/08-04/14 Objective - Exam Narrative Exam: General appearance: Alert in mild shortness of breath NC O2 Eyes: anicteric sclerae, moist conjunctivae; no lid-lag; PERRLA HENT: Atraumatic; oropharynx NGT Neck: Trachea midline; supple, no thyromegaly or lymphadenopathy Lungs: CTA CV: RRR Abdomen: Obese, Soft, midline surgical wound covered with dressings drain in place KRISTI R minimal purulent output KRISTI L minimal serosang output Extremities: No peripheral edema or extremity lymphadenopathy Skin: Normal temperature, turgor and texture; no rash, ulcers or subcutaneous nodules Psych: Appropriate affect, alert and oriented to person, place and time. Neuro: alert and oriented x 3. Moving all extermities Lines: right PICC, staton - Constitutional Vitals: Vital Signs Temp Pulse Resp BP Pulse Ox 99.9 F H 97 H 31 H 193/88 97 04/16/18 07:19 04/16/18 08:52 04/16/18 08:07 04/16/18 08:52 04/16/18 08:07 Temperature -Last 24 Hours Temperature 99.9 F Temperature 98.8 F Temperature 99.1 F Temperature 98.9 F - Labs CBC & Chem 7: 04/16/18 06:12 04/16/18 06:12 Labs: Abnormal lab results 04/15/18 04/15/18 04/16/18 Range/Units 11:17 17:35 00:26 WBC (4.5-11.0) K/mm3 RBC (3.65-5.03) M/mm3 Hgb (10.1-14.3) gm/dl MCHC (30-34) % RDW (13.2-15.2) % Plt Count (140-440) K/mm3 Seg Neuts % (Manual) (40.0-70.0) % Lymphocytes % (Manual) (13.4-35.0) % Seg Neutrophils # Man (1.8-7.7) K/mm3 Lymphocytes # (Manual) (1.2-5.4) K/mm3 POC Glucose 119 H 169 H 176 H (70-105) 04/16/18 04/16/18 04/16/18 Range/Units 06:12 06:19 06:21 WBC 20.7 H (4.5-11.0) K/mm3 RBC 3.25 L (3.65-5.03) M/mm3 Hgb 9.0 L (10.1-14.3) gm/dl MCHC 29 L (30-34) % RDW 16.7 H (13.2-15.2) % Plt Count 498 H (140-440) K/mm3 Seg Neuts % (Manual) 88.0 H (40.0-70.0) % Lymphocytes % (Manual) 5.0 L (13.4-35.0) % Seg Neutrophils # Man 18.2 H (1.8-7.7) K/mm3 Lymphocytes # (Manual) 1.0 L (1.2-5.4) K/mm3 POC Glucose > 500 H 493 H (70-105) 04/16/18 Range/Units 06:24 WBC (4.5-11.0) K/mm3 RBC (3.65-5.03) M/mm3 Hgb (10.1-14.3) gm/dl MCHC (30-34) % RDW (13.2-15.2) % Plt Count (140-440) K/mm3 Seg Neuts % (Manual) (40.0-70.0) % Lymphocytes % (Manual) (13.4-35.0) % Seg Neutrophils # Man (1.8-7.7) K/mm3 Lymphocytes # (Manual) (1.2-5.4) K/mm3 POC Glucose 173 H (70-105)
--- NOTE | 2018-04-16 09:56 | Progress Note ---
Assessment and Plan Sepsis with altered mental status in the setting of the systemic inflammatory response syndrome. Perforated abdominal viscus status post exploratory laparotomy and repair. Obesity. Pleural effusion Bilateral lower lobe infiltrates Obstructive sleep apnea according to the history. Acute encephalopathy, presumably toxic metabolic. History of hypertension. Arthritis. Gastroesophageal reflux disease. Morbid obesity. Acute hypoxemic respiratory failure Leukocytosis Hyperglycemia--spurious - continue supplemental oxygen to keep sats > 90% -serial CXRs, await drainage of intra-abdominal collection - BIPAP qhs and prn - Continue incentive spirometry and airway expansion measures -Gentle diuresis while monitoring hemodynamics, electrolyte profile and renal function -bronchodilators( short acting bronchodilators, scheduled) -Antibiotics per ID( peritoneal fluid cultures +for GNR, Serratia) -Monitor fever curve and trend WCC -IR for percutaneous drainage of intra-abdominal fluid collection - continue TPN - PT/OT evaluate and treat - continue GI & VTE prophylaxis - wound care per WCT / RN and surgeon - continue other care per attending / other consultants Discussed with surgery service Discussed care plan with RT and RN, updated patient Subjective Date of service: 04/16/18 Principal diagnosis: Sepsis Syndrome; Acute Hypoxemic Resp Failure; Acute Encephalopathy Interval history: Sepsis Syndrome; Acute Hypoxemic Resp Failure; Acute Encephalopathy Seen and examined at bedside; 24hour events reviewed; nursing and respiratory care staff consulted; no adverse overnight events reported to me; resting in bed ; much more appropriate mentally; No N/V/F/C; remains off vasopressors; , clinically improved from a respiratory standpoint. Tolerating BIPAP at night, did not use it last night. Sitting OOB in a chair with PT Discussed in IDT-ICU rounds Discussed with surgeon, will hold off on left thoracentesis until IR places abdominal drain. Plan to follow up serial CXR to monitor effusion. If any acute decompensation in her respiratory status then will get thoracentesis. Objective Vital Signs - 12hr 04/15/18 04/15/18 04/15/18 22:00 22:15 22:31 Temperature Pulse Rate 117 H 115 H 111 H Pulse Rate [ 107 H Anterior Bilateral] Pulse Rate [ 97 H From Monitor] Respiratory 17 34 H 29 H Rate Respiratory 37 H Rate [Anterior Bilateral] Blood Pressure 192/85 192/85 192/85 O2 Sat by Pulse 98 94 99 Oximetry 07/19/18 07/19/18 07/19/18 22:45 22:47 23:00 Temperature Pulse Rate 112 H 113 H 113 H Pulse Rate [ Anterior Bilateral] Pulse Rate [ From Monitor] Respiratory 32 H 25 H 32 H Rate Respiratory Rate [Anterior Bilateral] Blood Pressure 192/85 192/85 181/93 O2 Sat by Pulse 97 97 96 Oximetry 04/15/18 04/15/18 04/15/18 23:15 23:31 23:45 Temperature Pulse Rate 113 H 111 H 107 H Pulse Rate [ Anterior Bilateral] Pulse Rate [ From Monitor] Respiratory 34 H 27 H 27 H Rate Respiratory Rate [Anterior Bilateral] Blood Pressure 184/92 184/92 184/92 O2 Sat by Pulse 97 97 98 Oximetry 04/15/18 04/15/18 04/16/18 23:56 23:57 00:00 Temperature Pulse Rate 107 H 107 H 102 H Pulse Rate [ Anterior Bilateral] Pulse Rate [ From Monitor] Respiratory 28 H Rate Respiratory Rate [Anterior Bilateral] Blood Pressure 184/92 184/92 179/88 O2 Sat by Pulse 97 Oximetry 04/16/18 04/16/18 04/16/18 01:00 01:19 02:00 Temperature Pulse Rate 103 H 104 H Pulse Rate [ Anterior Bilateral] Pulse Rate [ From Monitor] Respiratory 20 29 H 22 Rate Respiratory Rate [Anterior Bilateral] Blood Pressure 165/80 165/84 O2 Sat by Pulse 98 97 Oximetry 04/16/18 04/16/18 04/16/18 03:00 04:00 05:00 Temperature Pulse Rate 108 H 105 H 104 H Pulse Rate [ Anterior Bilateral] Pulse Rate [ From Monitor] Respiratory 27 H 29 H 30 H Rate Respiratory Rate [Anterior Bilateral] Blood Pressure 159/81 169/79 169/79 O2 Sat by Pulse 94 92 96 Oximetry 04/16/18 04/16/18 04/16/18 06:00 06:49 06:52 Temperature Pulse Rate 102 H 103 H 102 H Pulse Rate [ Anterior Bilateral] Pulse Rate [ From Monitor] Respiratory 26 H Rate Respiratory Rate [Anterior Bilateral] Blood Pressure 159/95 159/95 159/95 O2 Sat by Pulse 92 Oximetry 04/16/18 04/16/18 04/16/18 07:00 07:19 08:07 Temperature 99.9 F H Pulse Rate 93 H Pulse Rate [ 94 H Anterior Bilateral] Pulse Rate [ From Monitor] Respiratory 18 Rate Respiratory 31 H Rate [Anterior Bilateral] Blood Pressure 161/79 O2 Sat by Pulse 93 97 Oximetry 04/16/18 08:52 Temperature Pulse Rate 97 H Pulse Rate [ Anterior Bilateral] Pulse Rate [ From Monitor] Respiratory Rate Respiratory Rate [Anterior Bilateral] Blood Pressure 193/88 O2 Sat by Pulse Oximetry Constitutional: no acute distress, other (elderly AAF , normocephalic and atraumatic resting in bed with mildly increased work of breathing) Eyes: non-icteric ENT: oropharynx moist, other (no thyromegaly) Neck: supple, no lymphadenopathy, no JVD, other (large neck circumference) Effort: mildly labored Ascultation: Bilateral: diminished breath sounds, rhonchi (scant in bases) Percussion: Bilateral: not dull Cardiovascular: regular rate and rhythm, other (No R/M) Gastrointestinal: hypoactive bowel sounds, soft, tender (around operative site) , non-distended, other (no palpable HSM, multiple intra-abdominal drains) Integumentary: normal Extremities: no cyanosis, no edema, pulses normal, no ischemia or petechiae Neurologic: non-focal exam (grossly), pupils equal and round, CN II-XII normal, motor strength normal and Psychiatric: mood appropriate, affect normal CBC and BMP: 04/16/18 06:12 04/16/18 08:52 ABG, PT/INR, D-dimer: ABG POC ABG pH 7.519 (7.35-7.45) H 04/10/18 12:59 POC ABG pCO2 29.3 (35-45) L 04/10/18 12:59 POC ABG pO2 63 (80-105) L 04/10/18 12:59 POC ABG HCO3 23.9 04/10/18 12:59 POC ABG Total CO2 25 04/10/18 12:59 POC ABG O2 Sat 94 04/10/18 12:59 PT/INR, D-dimer PT 13.5 Sec. (12.2-14.9) 04/07/18 09:41 INR 0.98 (0.87-1.13) 04/07/18 09:41 Abnormal lab findings: Abnormal Labs 04/07/18 04/07/18 04/07/18 00:05 00:05 09:41 WBC 18.4 H 21.3 H RBC Hgb Hct MCHC RDW Plt Count Lymph % (Auto) 4.5 L Cotton % (Auto) Lymph # 0.8 L Cotton # 1.2 H Seg Neutrophils % 88.9 H Seg Neuts % (Manual) 85.0 H Lymphocytes % (Manual) 4.0 L Monocytes % (Manual) Nucleated RBC % Seg Neutrophils # 16.4 H Seg Neutrophils # Man 18.1 H Lymphocytes # (Manual) 0.9 L Monocytes # (Manual) 1.1 H POC ABG pH POC ABG pCO2 POC ABG pO2 Potassium Chloride Carbon Dioxide BUN Creatinine Glucose 123 H POC Glucose Calcium 8.0 L Phosphorus Magnesium 1.60 L AST 59 H C-Reactive Protein Total Protein Albumin 2.9 L Urine WBC (Auto) 04/07/18 04/08/18 04/08/18 09:41 00:20 10:25 WBC 19.2 H RBC Hgb Hct MCHC RDW Plt Count Lymph % (Auto) 5.4 L Cotton % (Auto) Lymph # 1.0 L Cotton # 1.1 H Seg Neutrophils % 88.9 H Seg Neuts % (Manual) Lymphocytes % (Manual) Monocytes % (Manual) Nucleated RBC % Seg Neutrophils # 17.1 H Seg Neutrophils # Man Lymphocytes # (Manual) Monocytes # (Manual) POC ABG pH POC ABG pCO2 POC ABG pO2 Potassium 3.3 L Chloride 95.1 L Carbon Dioxide 21 L BUN Creatinine Glucose 113 H POC Glucose Calcium Phosphorus Magnesium AST C-Reactive Protein Total Protein Albumin 3.6 L Urine WBC (Auto) 45.0 H 04/08/18 04/08/18 04/08/18 10:25 13:33 23:53 WBC 12.8 H RBC Hgb Hct MCHC RDW Plt Count Lymph % (Auto) Cotton % (Auto) Lymph # Cotton # Seg Neutrophils % Seg Neuts % (Manual) 97.0 H Lymphocytes % (Manual) 2.0 L Monocytes % (Manual) Nucleated RBC % Seg Neutrophils # Seg Neutrophils # Man 12.4 H Lymphocytes # (Manual) 0.3 L Monocytes # (Manual) POC ABG pH POC ABG pCO2 POC ABG pO2 Potassium 3.5 L Chloride Carbon Dioxide BUN Creatinine Glucose 123 H POC Glucose Calcium 7.9 L Phosphorus Magnesium AST 53 H C-Reactive Protein 52.00 H Total Protein 6.1 L Albumin 2.7 L Urine WBC (Auto) 04/09/18 04/09/18 04/09/18 04:20 04:20 13:38 WBC 16.2 H RBC Hgb Hct MCHC RDW Plt Count Lymph % (Auto) Cotton % (Auto) Lymph # Cotton # Seg Neutrophils % Seg Neuts % (Manual) 89.0 H Lymphocytes % (Manual) 4.0 L Monocytes % (Manual) Nucleated RBC % Seg Neutrophils # Seg Neutrophils # Man 14.4 H Lymphocytes # (Manual) 0.6 L Monocytes # (Manual) POC ABG pH 7.494 H POC ABG pCO2 31.6 L POC ABG pO2 68 L Potassium 3.5 L Chloride Carbon Dioxide BUN Creatinine 0.6 L Glucose 117 H POC Glucose Calcium 7.9 L Phosphorus 1.50 L D Magnesium AST C-Reactive Protein Total Protein 5.6 L Albumin 2.9 L Urine WBC (Auto) 04/09/18 04/09/18 04/09/18 18:25 21:45 21:45 WBC 21.3 H RBC 3.62 L Hgb Hct MCHC 35 H RDW Plt Count Lymph % (Auto) Cotton % (Auto) Lymph # Cotton # Seg Neutrophils % Seg Neuts % (Manual) 90.0 H Lymphocytes % (Manual) 6.0 L Monocytes % (Manual) Nucleated RBC % 1.0 H Seg Neutrophils # Seg Neutrophils # Man 19.2 H Lymphocytes # (Manual) Monocytes # (Manual) 0.9 H POC ABG pH POC ABG pCO2 POC ABG pO2 Potassium Chloride Carbon Dioxide BUN 5 L Creatinine 0.5 L Glucose 134 H POC Glucose 155 H Calcium 7.9 L Phosphorus 2.20 L D Magnesium AST C-Reactive Protein Total Protein Albumin Urine WBC (Auto) 04/09/18 04/10/18 04/10/18 23:38 04:07 04:07 WBC 20.2 H RBC 3.38 L Hgb 9.4 L Hct 28.9 L MCHC RDW Plt Count Lymph % (Auto) Cotton % (Auto) Lymph # Cotton # Seg Neutrophils % Seg Neuts % (Manual) Lymphocytes % (Manual) 6.0 L Monocytes % (Manual) Nucleated RBC % Seg Neutrophils # Seg Neutrophils # Man 10.7 H Lymphocytes # (Manual) Monocytes # (Manual) POC ABG pH POC ABG pCO2 POC ABG pO2 Potassium Chloride Carbon Dioxide BUN 6 L Creatinine 0.6 L Glucose 176 H POC Glucose 160 H Calcium 7.7 L Phosphorus Magnesium AST C-Reactive Protein Total Protein Albumin Urine WBC (Auto) 04/10/18 04/10/18 04/10/18 05:29 11:55 12:59 WBC RBC Hgb Hct MCHC RDW Plt Count Lymph % (Auto) Cotton % (Auto) Lymph # Cotton # Seg Neutrophils % Seg Neuts % (Manual) Lymphocytes % (Manual) Monocytes % (Manual) Nucleated RBC % Seg Neutrophils # Seg Neutrophils # Man Lymphocytes # (Manual) Monocytes # (Manual) POC ABG pH 7.519 H POC ABG pCO2 29.3 L POC ABG pO2 63 L Potassium Chloride Carbon Dioxide BUN Creatinine Glucose POC Glucose 171 H 194 H Calcium Phosphorus Magnesium AST C-Reactive Protein Total Protein Albumin Urine WBC (Auto) 04/10/18 04/10/18 04/10/18 18:11 18:28 18:28 WBC 22.7 H RBC 3.62 L Hgb Hct MCHC RDW Plt Count Lymph % (Auto) Cotton % (Auto) Lymph # Cotton # Seg Neutrophils % Seg Neuts % (Manual) 84.0 H Lymphocytes % (Manual) 7.0 L Monocytes % (Manual) 8.0 H Nucleated RBC % Seg Neutrophils # Seg Neutrophils # Man 19.1 H Lymphocytes # (Manual) Monocytes # (Manual) 1.8 H POC ABG pH POC ABG pCO2 POC ABG pO2 Potassium Chloride Carbon Dioxide BUN Creatinine Glucose POC Glucose 118 H Calcium Phosphorus Magnesium AST C-Reactive Protein 45.20 H Total Protein Albumin Urine WBC (Auto) 04/10/18 04/10/18 04/11/18 18:28 23:45 03:35 WBC 20.9 H RBC 3.54 L Hgb 10.0 L Hct MCHC RDW Plt Count Lymph % (Auto) Cotton % (Auto) Lymph # Cotton # Seg Neutrophils % Seg Neuts % (Manual) 80.0 H Lymphocytes % (Manual) 6.0 L Monocytes % (Manual) Nucleated RBC % Seg Neutrophils # Seg Neutrophils # Man 16.7 H Lymphocytes # (Manual) Monocytes # (Manual) POC ABG pH POC ABG pCO2 POC ABG pO2 Potassium 3.5 L Chloride Carbon Dioxide BUN 5 L Creatinine 0.5 L Glucose 108 H POC Glucose 149 H Calcium 8.3 L Phosphorus Magnesium AST C-Reactive Protein Total Protein Albumin Urine WBC (Auto) 04/11/18 04/11/18 04/11/18 03:35 06:17 11:29 WBC RBC Hgb Hct MCHC RDW Plt Count Lymph % (Auto) Cotton % (Auto) Lymph # Cotton # Seg Neutrophils % Seg Neuts % (Manual) Lymphocytes % (Manual) Monocytes % (Manual) Nucleated RBC % Seg Neutrophils # Seg Neutrophils # Man Lymphocytes # (Manual) Monocytes # (Manual) POC ABG pH POC ABG pCO2 POC ABG pO2 Potassium Chloride Carbon Dioxide BUN Creatinine 0.5 L Glucose 143 H POC Glucose 155 H 158 H Calcium 8.2 L Phosphorus Magnesium AST C-Reactive Protein Total Protein 6.0 L Albumin 2.2 L Urine WBC (Auto) 04/11/18 04/11/18 04/12/18 18:13 23:51 05:29 WBC RBC Hgb Hct MCHC RDW Plt Count Lymph % (Auto) Cotton % (Auto) Lymph # Cotton # Seg Neutrophils % Seg Neuts % (Manual) Lymphocytes % (Manual) Monocytes % (Manual) Nucleated RBC % Seg Neutrophils # Seg Neutrophils # Man Lymphocytes # (Manual) Monocytes # (Manual) POC ABG pH POC ABG pCO2 POC ABG pO2 Potassium Chloride Carbon Dioxide BUN Creatinine Glucose POC Glucose 135 H 143 H 150 H Calcium Phosphorus Magnesium AST C-Reactive Protein Total Protein Albumin Urine WBC (Auto) 04/12/18 04/12/18 04/13/18 05:40 05:40 00:32 WBC 18.0 H RBC 3.34 L Hgb 9.5 L Hct 28.9 L MCHC RDW Plt Count Lymph % (Auto) 7.4 L Cotton % (Auto) 10.8 H Lymph # Cotton # 1.9 H Seg Neutrophils % 81.1 H Seg Neuts % (Manual) Lymphocytes % (Manual) Monocytes % (Manual) Nucleated RBC % Seg Neutrophils # 14.6 H Seg Neutrophils # Man Lymphocytes # (Manual) Monocytes # (Manual) POC ABG pH POC ABG pCO2 POC ABG pO2 Potassium Chloride 107.7 H Carbon Dioxide 21 L BUN Creatinine 0.6 L Glucose 140 H POC Glucose 144 H Calcium Phosphorus Magnesium AST C-Reactive Protein Total Protein Albumin Urine WBC (Auto) 04/13/18 04/13/18 04/13/18 04:20 04:20 04:20 WBC 18.1 H RBC 3.52 L Hgb 9.8 L Hct 30.1 L MCHC RDW Plt Count Lymph % (Auto) 11.1 L Cotton % (Auto) 13.6 H Lymph # Cotton # 2.5 H Seg Neutrophils % 74.4 H Seg Neuts % (Manual) Lymphocytes % (Manual) Monocytes % (Manual) Nucleated RBC % Seg Neutrophils # 13.4 H Seg Neutrophils # Man Lymphocytes # (Manual) Monocytes # (Manual) POC ABG pH POC ABG pCO2 POC ABG pO2 Potassium Chloride Carbon Dioxide BUN Creatinine 0.5 L Glucose 142 H POC Glucose Calcium Phosphorus Magnesium AST C-Reactive Protein 29.60 H Total Protein Albumin Urine WBC (Auto) 04/13/18 04/13/18 04/14/18 05:35 23:50 04:00 WBC 22.1 H RBC 3.59 L Hgb 9.9 L Hct MCHC RDW Plt Count Lymph % (Auto) Cotton % (Auto) Lymph # Cotton # Seg Neutrophils % Seg Neuts % (Manual) 73.0 H Lymphocytes % (Manual) 9.0 L Monocytes % (Manual) 11.0 H Nucleated RBC % Seg Neutrophils # Seg Neutrophils # Man 16.1 H Lymphocytes # (Manual) Monocytes # (Manual) 2.4 H POC ABG pH POC ABG pCO2 POC ABG pO2 Potassium Chloride Carbon Dioxide BUN Creatinine Glucose POC Glucose 142 H 160 H Calcium Phosphorus Magnesium AST C-Reactive Protein Total Protein Albumin Urine WBC (Auto) 04/14/18 04/14/18 04/14/18 04:00 05:29 12:47 WBC RBC Hgb Hct MCHC RDW Plt Count Lymph % (Auto) Cotton % (Auto) Lymph # Cotton # Seg Neutrophils % Seg Neuts % (Manual) Lymphocytes % (Manual) Monocytes % (Manual) Nucleated RBC % Seg Neutrophils # Seg Neutrophils # Man Lymphocytes # (Manual) Monocytes # (Manual) POC ABG pH POC ABG pCO2 POC ABG pO2 Potassium Chloride Carbon Dioxide BUN Creatinine Glucose 155 H POC Glucose 133 H 183 H Calcium Phosphorus Magnesium 2.50 H AST C-Reactive Protein Total Protein Albumin Urine WBC (Auto) 04/14/18 04/14/18 04/15/18 16:01 23:42 04:42 WBC RBC Hgb Hct MCHC RDW Plt Count Lymph % (Auto) Cotton % (Auto) Lymph # Cotton # Seg Neutrophils % Seg Neuts % (Manual) Lymphocytes % (Manual) Monocytes % (Manual) Nucleated RBC % Seg Neutrophils # Seg Neutrophils # Man Lymphocytes # (Manual) Monocytes # (Manual) POC ABG pH POC ABG pCO2 POC ABG pO2 Potassium 3.4 L Chloride 107.5 H Carbon Dioxide 21 L BUN Creatinine Glucose 165 H POC Glucose 153 H 172 H Calcium 8.0 L Phosphorus Magnesium 2.40 H AST C-Reactive Protein Total Protein Albumin Urine WBC (Auto) 04/15/18 04/15/18 04/15/18 04:42 05:49 11:17 WBC 21.5 H RBC 3.37 L Hgb 9.4 L Hct 28.9 L MCHC RDW Plt Count 490 H Lymph % (Auto) Cotton % (Auto) Lymph # Cotton # Seg Neutrophils % Seg Neuts % (Manual) 77.0 H Lymphocytes % (Manual) 7.0 L Monocytes % (Manual) 10.0 H Nucleated RBC % Seg Neutrophils # Seg Neutrophils # Man 16.6 H Lymphocytes # (Manual) Monocytes # (Manual) 2.2 H POC ABG pH POC ABG pCO2 POC ABG pO2 Potassium Chloride Carbon Dioxide BUN Creatinine Glucose POC Glucose 147 H 119 H Calcium Phosphorus Magnesium AST C-Reactive Protein Total Protein Albumin Urine WBC (Auto) 04/15/18 04/16/18 04/16/18 17:35 00:26 06:12 WBC 20.7 H RBC 3.25 L Hgb 9.0 L Hct MCHC 29 L RDW 16.7 H Plt Count 498 H Lymph % (Auto) Cotton % (Auto) Lymph # Cotton # Seg Neutrophils % Seg Neuts % (Manual) 88.0 H Lymphocytes % (Manual) 5.0 L Monocytes % (Manual) Nucleated RBC % Seg Neutrophils # Seg Neutrophils # Man 18.2 H Lymphocytes # (Manual) 1.0 L Monocytes # (Manual) POC ABG pH POC ABG pCO2 POC ABG pO2 Potassium Chloride Carbon Dioxide BUN Creatinine Glucose POC Glucose 169 H 176 H Calcium Phosphorus Magnesium AST C-Reactive Protein Total Protein Albumin Urine WBC (Auto) 04/16/18 04/16/18 04/16/18 06:19 06:21 06:24 WBC RBC Hgb Hct MCHC RDW Plt Count Lymph % (Auto) Cotton % (Auto) Lymph # Cotton # Seg Neutrophils % Seg Neuts % (Manual) Lymphocytes % (Manual) Monocytes % (Manual) Nucleated RBC % Seg Neutrophils # Seg Neutrophils # Man Lymphocytes # (Manual) Monocytes # (Manual) POC ABG pH POC ABG pCO2 POC ABG pO2 Potassium Chloride Carbon Dioxide BUN Creatinine Glucose POC Glucose > 500 H 493 H 173 H Calcium Phosphorus Magnesium AST C-Reactive Protein Total Protein Albumin Urine WBC (Auto) Chest x-ray: image reviewed (Left lower lobe inflitrate, effusion) Allied health notes reviewed: RT (BIPAP qhs, currently on 2L NC)
[2018-04-16] MEDS ORDERED: SUBLIMAZE IV ONE (10:10)
[2018-04-16] MEDS ORDERED: VERSED IV ONE ×2 (10:10→10:18)
[2018-04-16 10:12] LABS: BUN/Creatinine Ratio 26; Blood Urea Nitrogen 13 mg/dL (7-17); Calcium 8.2 mg/dL (8.4-10.2); Hemolysis Index 5
[2018-04-16] MEDS ORDERED: SUBLIMAZE ONE (10:19)
--- NOTE | 2018-04-16 11:47 | Post Operative Note ---
Date of procedure: 04/16/18 Pre-op diagnosis: LUQ collection Post-op diagnosis: same Procedure: 10 Fr APD drain placed in the LUQ collection 10 mL white secretions removed Attached to urosil drain Anesthesia: local (w/ conscious sedation) Surgeon: KARRI ROWLEY Estimated blood loss: minimal Condition: stable Disposition: floor
[2018-04-16] MEDS: PROTONIX IV SCH (12:28)
[2018-04-16] MEDS: SODIUM CHLORIDE FLUSH SYRINGE 10 ML IV SCH ×2 (12:30→21:21)
--- NOTE | 2018-04-16 18:02 | Cat Scan Report ---
EXAM: CT guided 10 [place] left upper quadrant abdominal drain placement CLINICAL INDICATION: Left upper quadrant fluid collection associated with perforation DATE: 04/16/18 ADDICTION SOCIAL WORKER: KARRI ROWLEY MD MEDICATIONS: Conscious sedation using Versed and fentanyl was performed under guidance of radiologic nursing. Continuous cardiopulmonary monitoring was utilized. PROCEDURE: Following an explanation of the risks, benefits and alternatives; written informed consent was obtained. The patient was brought to the CT suite and placed in the supine position on the CT table. Vp Of [employer] CT was performed of the upper abdomen. After determining the appropriate site, the skin was infiltrated with lidocaine and a finder needle was placed. Intermittent CT was performed until the desired position was identified. The 18 gauge trocar needle was inserted into the left upper quadrant fluid collection . Aspiration was performed and sent to the lab for analysis. J wire was then advanced through the needle and into the collection. The needle was exchanged for multiple dilators that were used to serially dilate over the wire. A 10 Fr APD drain was advanced over the wire and metal stiffener. The metal stiffener and wire were removed. Final CT scanning was performed. The pigtail was secured and aspirated until no more material could be aspirated. Sterile bandage was applied. The patient tolerated the procedure well. There were no immediate postprocedural complications. FINDINGS: 1. Initial CT demonstrates large left upper quadrant gas and fluid collection associated with perforation at the gastroesophageal junction/proximal stomach. There is a satisfactory window for CT drainage. 2. Intermittent CT demonstrates the 18 gauge needle was placed in the left upper quadrant gas and fluid collection. 3. Wire is coiled in the left upper quadrant gas and fluid collection. 4. Final CT documents placement of a 10 Fr drain in the left upper quadrant gas and fluid collection. 5. A total of 10 mL of white thick material material was aspirated through the drain and initial needle. IMPRESSION: Successful CT guided 10 [place] left upper quadrant drain placement in a gas and fluid collection.
--- NOTE | 2018-04-16 18:04 | Cat Scan Report ---
EXAM: CT guided 10 Hungarian abdominal perihepatic drain placement CLINICAL INDICATION: Perihepatic fluid collection DATE: 04/10/18 LAB HEAD: KARRI ROWLEY MD MEDICATIONS: Conscious sedation using Versed and fentanyl was performed under guidance of radiologic nursing. Continuous cardiopulmonary monitoring was utilized. PROCEDURE: Following an explanation of the risks, benefits and alternatives; written informed consent was obtained. The patient was brought to the CT suite and placed in the supine position on the CT table. Dust Sampler CT was performed of the upper abdomen. After determining the appropriate site, the skin was infiltrated with lidocaine and a finder needle was placed. Intermittent CT was performed until the desired position was identified. The 18 gauge trocar needle was inserted into the perihepatic fluid collection . Aspiration was performed and sent to the lab for analysis. J wire was then advanced through the needle and into the collection. The needle was exchanged for multiple dilators that were used to serially dilate over the wire. A 10 Fr APD drain was advanced over the wire and metal stiffener. The metal stiffener and wire were removed. Final CT scanning was performed. The pigtail was secured and aspirated until no more material could be aspirated. Sterile bandage was applied. The patient tolerated the procedure well. There were no immediate postprocedural complications. FINDINGS: 1. Initial CT demonstrates a large perihepatic fluid collection. There is a satisfactory window for CT drainage. 2. Intermittent CT demonstrates the 18 gauge needle was placed into the large perihepatic fluid collection. 3. Wire is coiled in the perihepatic fluid collection. 4. Final CT documents placement of a 10 Fr drain in the perihepatic fluid collection. IMPRESSION: Successful CT guided 10 Hungarian drain in a right upper quadrant perihepatic fluid collection. Serous green material that appeared to be gastric fluid was aspirated through the drain.
--- NOTE | 2018-04-16 18:17 | Progress Note ---
Assessment and Plan 58 y.o. f s/p lap sleeve gastrectomy with hiatal hernia repair and partial fundoplication 03/30, presents to ER with abdominal pain, now s/p dx lap, abdominal washout, repair of gastric perforation and placement of drains , s/p abdominal pigtail placement x 2 Neuro: dilualdid, morphine prn. toradol for pain control. Ativan prn for agitation for hx of anxiety baseline Cardio: tachycardia-waxing and waning- 2/2 fever. HI tylenol hx of HTN: enalaril IV, metop rpn Pulm: pulm toilet per ICU Left pleural effusion: if pulm function continues to improve, she may not require the drainage Appreciate pulmonary consult -IS CXr 04/09: left effusion, cardiomeg. no pulm congestion CT chest: no PE GI: npo, NG to low wall intermit. sunction. No manipulation of NG. NO ice chips no meds. monitor drain output -CT abd/pelvis: fluid collection anterior to liver, leak persistent. s/p IR drain x 2. Nutrition: PIcc line for tpn. -monitor lytes ID: gastric perf. vanco, flagyl cefipime -umbilical incision: change packing daily peritoneal cultures: serratia Pneumonia: vanco . Dosing per pharm. -ID consult appreciated Fever continues- off/on. f/u cultures. leukocytosis improving If fevers continues, f/u CT abd. pelvis --> collections /Lytes: f/u am labs. monitor urine out. DVT proph: lovenox scds GI proph: protonix Out of bed to chair Subjective Narrative: Pt feeling drowsy after procedure earlier. She has abdominal pain at the site of the new pigtail catheter. She denies vomiting. +nausea that is controlled with medicine. Out of bed to chair as well. Objective Vital Signs - 12hr 04/16/18 04/16/18 04/16/18 06:49 06:52 07:00 Temperature Pulse Rate 103 H 102 H 93 H Pulse Rate [ Anterior Bilateral] Pulse Rate [ From Monitor] Pulse Rate [ Intra-Procedure ] Respiratory 18 Rate Respiratory Rate [Anterior Bilateral] Respiratory Rate [Intra- Procedure] Blood Pressure 159/95 159/95 161/79 Blood Pressure [Intra- Procedure] O2 Sat by Pulse 93 Oximetry O2 Sat by Pulse Oximetry [ Intra-Procedure ] 04/16/18 04/16/18 04/16/18 07:19 08:00 08:07 Temperature 99.9 F H 98.6 F Pulse Rate 97 H Pulse Rate [ 94 H Anterior Bilateral] Pulse Rate [ 98 H From Monitor] Pulse Rate [ Intra-Procedure ] Respiratory 20 Rate Respiratory 31 H Rate [Anterior Bilateral] Respiratory Rate [Intra- Procedure] Blood Pressure 175/93 Blood Pressure [Intra- Procedure] O2 Sat by Pulse 95 97 Oximetry O2 Sat by Pulse Oximetry [ Intra-Procedure ] 04/16/18 04/16/18 04/16/18 08:52 09:00 10:00 Temperature Pulse Rate 97 H 106 H 104 H Pulse Rate [ Anterior Bilateral] Pulse Rate [ From Monitor] Pulse Rate [ Intra-Procedure ] Respiratory 36 H 33 H Rate Respiratory Rate [Anterior Bilateral] Respiratory Rate [Intra- Procedure] Blood Pressure 193/88 159/71 162/84 Blood Pressure [Intra- Procedure] O2 Sat by Pulse 91 92 Oximetry O2 Sat by Pulse Oximetry [ Intra-Procedure ] 04/16/18 04/16/18 04/16/18 11:04 11:17 11:22 Temperature Pulse Rate Pulse Rate [ Anterior Bilateral] Pulse Rate [ From Monitor] Pulse Rate [ 106 H 104 H 105 H Intra-Procedure ] Respiratory Rate Respiratory Rate [Anterior Bilateral] Respiratory 22 24 22 Rate [Intra- Procedure] Blood Pressure Blood Pressure 172/79 173/76 169/79 [Intra- Procedure] O2 Sat by Pulse Oximetry O2 Sat by Pulse 99 99 98 Oximetry [ Intra-Procedure ] 04/16/18 04/16/18 04/16/18 11:27 11:32 11:50 Temperature Pulse Rate 107 H Pulse Rate [ Anterior Bilateral] Pulse Rate [ From Monitor] Pulse Rate [ 104 H 104 H Intra-Procedure ] Respiratory 30 H Rate Respiratory Rate [Anterior Bilateral] Respiratory 22 20 Rate [Intra- Procedure] Blood Pressure 160/85 Blood Pressure 172/78 166/76 [Intra- Procedure] O2 Sat by Pulse 94 Oximetry O2 Sat by Pulse 99 99 Oximetry [ Intra-Procedure ] 04/16/18 04/16/18 04/16/18 12:00 12:27 12:28 Temperature Pulse Rate 108 H 102 H 102 H Pulse Rate [ Anterior Bilateral] Pulse Rate [ 96 H From Monitor] Pulse Rate [ Intra-Procedure ] Respiratory 29 H Rate Respiratory Rate [Anterior Bilateral] Respiratory Rate [Intra- Procedure] Blood Pressure 153/91 153/91 153/91 Blood Pressure [Intra- Procedure] O2 Sat by Pulse 96 Oximetry O2 Sat by Pulse Oximetry [ Intra-Procedure ] 04/16/18 04/16/18 04/16/18 13:00 14:00 15:00 Temperature Pulse Rate 92 H 94 H 97 H Pulse Rate [ Anterior Bilateral] Pulse Rate [ From Monitor] Pulse Rate [ Intra-Procedure ] Respiratory 26 H 23 25 H Rate Respiratory Rate [Anterior Bilateral] Respiratory Rate [Intra- Procedure] Blood Pressure 156/77 163/79 143/71 Blood Pressure [Intra- Procedure] O2 Sat by Pulse 96 96 94 Oximetry O2 Sat by Pulse Oximetry [ Intra-Procedure ] 04/16/18 04/16/18 04/16/18 16:00 16:30 17:00 Temperature 98.9 F Pulse Rate 104 H 106 H Pulse Rate [ Anterior Bilateral] Pulse Rate [ 105 H From Monitor] Pulse Rate [ Intra-Procedure ] Respiratory 32 H 32 H Rate Respiratory Rate [Anterior Bilateral] Respiratory Rate [Intra- Procedure] Blood Pressure 155/76 158/80 Blood Pressure [Intra- Procedure] O2 Sat by Pulse 94 97 Oximetry O2 Sat by Pulse Oximetry [ Intra-Procedure ] 04/16/18 17:30 Temperature Pulse Rate 95 H Pulse Rate [ Anterior Bilateral] Pulse Rate [ From Monitor] Pulse Rate [ Intra-Procedure ] Respiratory Rate Respiratory Rate [Anterior Bilateral] Respiratory Rate [Intra- Procedure] Blood Pressure 158/80 Blood Pressure [Intra- Procedure] O2 Sat by Pulse Oximetry O2 Sat by Pulse Oximetry [ Intra-Procedure ] - General physical appearance well developed, well nourished - Respiratory normal expansion, normal respiratory effort, clear to auscultation - Abdomen soft, other (tender Left upper quad at site of new pigtail. KRISTI x [address] serous, yellow, thick fluid. right mid pigtail in place. no rebound no guarding. packing removed. clean wound at umbilicus ) - Integumentary no rash - Neurologic normal coordination - Musculoskeletal normal posture - Psychiatric oriented to time, oriented to person, oriented to place - Labs 04/17/18 04:50 04/17/18 07:17 Diabetes panel 04/16/18 04/16/18 Range/Units 06:12 08:52 Sodium TNR 143 Potassium TNR 3.4 L Chloride TNR 105.7 Carbon Dioxide TNR 22 BUN TNR 13 Creatinine TNR 0.5 L Glucose TNR 166 H Calcium TNR 8.2 L Triglycerides TNR 114 Calcium panel 04/16/18 04/16/18 Range/Units 06:12 08:52 Calcium TNR 8.2 L Phosphorus TNR 2.90 Pituitary panel 04/16/18 04/16/18 Range/Units 06:12 08:52 Sodium TNR 143 Potassium TNR 3.4 L Chloride TNR 105.7 Carbon Dioxide TNR 22 BUN TNR 13 Creatinine TNR 0.5 L Glucose TNR 166 H Calcium TNR 8.2 L Adrenal panel 04/16/18 04/16/18 Range/Units 06:12 08:52 Sodium TNR 143 Potassium TNR 3.4 L Chloride TNR 105.7 Carbon Dioxide TNR 22 BUN TNR 13 Creatinine TNR 0.5 L Glucose TNR 166 H Calcium TNR 8.2 L
[2018-04-16] MEDS ORDERED: TPN ADULT 1,800 ML IV SCH (20:00)
[2018-04-16] MEDS ORDERED: INTRALIPID 20% 250 ML IV SCH (20:00)
[2018-04-16] MEDS: NORMODYNE IV PRN (21:10)
[2018-04-16] MEDS: LOVENOX SUB-Q SCH (22:22)
--- NOTE | 2018-04-17 04:18 | XRay Report ---
FINAL REPORT PROCEDURE: XR CHEST 1V AP TECHNIQUE: Chest radiograph anteroposterior view. CPT 90938 HISTORY: follow up respiratory failure COMPARISON: 04/16/2018 FINDINGS: Heart: Normal. Mediastinum/Vessels: Normal. Lungs/Pleural space: Normal. Bony thorax: No acute osseous abnormality. Life support devices: The nasogastric tube ends below the hemidiaphragms. Right PICC line ends in the SVC. IMPRESSION: No acute infiltrate or effusion. Nasogastric tube and right central catheter are appropriately positioned..
[2018-04-17] MEDS: DILAUDID IV PRN ×5 (05:15→22:30)
[2018-04-17] MEDS: ZOFRAN IV PRN ×2 (05:15→22:30)
[2018-04-17 05:47] LABS: Basophils # (Auto) 0.1 K/mm3 (0.0-0.1); Basophils % (Auto) 0.4 % (0.0-1.8); Eosinophils # (Auto) 0.1 K/mm3 (0.0-0.4); Eosinophils % (Auto) 0.6 % (0.0-4.3); Hemoglobin 8.7 gm/dl (10.1-14.3); Lymphocytes # (Auto) 1.5 K/mm3 (1.2-5.4); Lymphocytes % (Auto) 9.4 % (13.4-35.0); Mean Corpuscular HGB Conc 30 % (30-34); Mean Corpuscular Hemoglobin 28 pg (28-32); Mean Corpuscular Volume 93 fl (79-97); Monocytes # (Auto) 1.2 K/mm3 (0.0-0.8); Monocytes % (Auto) 7.7 % (0.0-7.3); Platelet Count 455 K/mm3 (140-440); Red Blood Count 3.12 M/mm3 (3.65-5.03); Red Cell Distribution Width 16.2 % (13.2-15.2)
[2018-04-17] MEDS: MAXIPIME/NS 2 GM/100 ML 2 GM/100 ML BAG IV SCH ×3 (05:58→22:30)
[2018-04-17] MEDS: FLAGYL 500 MG/100 ML 500 MG/100 ML BAG IV SCH ×3 (05:59→22:30)
[2018-04-17 06:13] LABS: BUN/Creatinine Ratio 21; Blood Urea Nitrogen 15 mg/dL (7-17); Calcium 7.6 mg/dL (8.4-10.2); Hemolysis Index 3
[2018-04-17] MEDS: VASOTEC IV SCH ×4 (07:16→23:55)
[2018-04-17] MEDS: VANCOMYCIN 1,750 MG in NACL 0.9% 500 ML 500 ML IV SCH ×3 (07:16→23:48)
[2018-04-17] MEDS: LOPRESSOR IV SCH ×4 (07:17→23:56)
[2018-04-17 07:44] LABS: BUN/Creatinine Ratio 27; Blood Urea Nitrogen 16 mg/dL (7-17); Hemolysis Index 0
[2018-04-17] MEDS: BROVANA NEBU IH SCH ×2 (08:39→19:35)
[2018-04-17] MEDS: PULMICORT IH SCH ×2 (08:39→19:35)
[2018-04-17] MEDS: APRESOLINE IV PRN (09:01)
[2018-04-17] MEDS: PROTONIX IV SCH (11:42)
[2018-04-17] MEDS: SODIUM CHLORIDE FLUSH SYRINGE 10 ML IV SCH (11:44)
--- NOTE | 2018-04-17 12:42 | Progress Note ---
Assessment and Plan 58 y.o. f s/p lap sleeve gastrectomy with hiatal hernia repair and partial fundoplication 03/30, presents to ER with abdominal pain, now s/p dx lap, abdominal washout, repair of gastric perforation and placement of drains , s/p abdominal pigtail placement x 2 Neuro: dilualdid, morphine prn. toradol for pain control. Ativan prn for agitation for hx of anxiety baseline Cardio: tachycardia-resolved hx of HTN: enalaril IV, metop rpn Pulm: pulm toilet per ICU Left pleural effusion: if pulm function continues to improve, she may not require the drainage Appreciate pulmonary consult -IS CXr 04/09: left effusion, cardiomeg. no pulm congestion CT chest: no PE GI: npo, NG to low wall intermit. sunction. No manipulation of NG. NO ice chips no meds. monitor drain output -CT abd/pelvis: fluid collection anterior to liver, leak persistent. s/p IR drain x 2. Nutrition: PIcc line for tpn. -monitor lytes ID: gastric perf. vanco, flagyl cefipime -umbilical incision: change packing daily peritoneal cultures: serratia Pneumonia: vanco . Dosing per pharm. -ID consult appreciated Fever continues- off/on. f/u cultures. leukocytosis slight increase to 18 If fevers continues, f/u CT abd. pelvis --> collections /Lytes: f/u am labs. monitor urine out. DVT proph: lovenox scds GI proph: protonix Out of bed to chair Dispo:likely downgrade in the next 1-2days Subjective Narrative: SOB improving. Out of bed to chair and to bedside commode. Pain at KRISTI and pigtail sites. no bm. Spits foaming white liquid but decreased amount compared to prior. Wants something to drink. Objective Vital Signs - 12hr 04/17/18 04/17/18 04/17/18 01:00 01:30 02:00 Temperature Pulse Rate 91 H 92 H 91 H Pulse Rate [ Anterior Bilateral] Pulse Rate [ From Monitor] Respiratory 25 H 21 22 Rate Respiratory Rate [Anterior Bilateral] Blood Pressure 137/63 123/54 127/59 O2 Sat by Pulse 95 94 91 Oximetry 04/17/18 04/17/18 04/17/18 02:30 03:00 03:17 Temperature 98.1 F Pulse Rate 90 94 H Pulse Rate [ Anterior Bilateral] Pulse Rate [ From Monitor] Respiratory 22 21 Rate Respiratory Rate [Anterior Bilateral] Blood Pressure 125/66 125/66 O2 Sat by Pulse 92 98 Oximetry 04/17/18 04/17/18 04/17/18 03:30 04:00 04:30 Temperature Pulse Rate 92 H 92 H 90 Pulse Rate [ Anterior Bilateral] Pulse Rate [ 92 H From Monitor] Respiratory 24 23 22 Rate Respiratory Rate [Anterior Bilateral] Blood Pressure 164/76 170/78 163/76 O2 Sat by Pulse 97 97 96 Oximetry 04/17/18 04/17/18 04/17/18 05:00 05:15 05:30 Temperature Pulse Rate 95 H 92 H Pulse Rate [ Anterior Bilateral] Pulse Rate [ From Monitor] Respiratory 31 H 22 20 Rate Respiratory Rate [Anterior Bilateral] Blood Pressure 171/81 195/79 O2 Sat by Pulse 97 98 Oximetry 04/17/18 04/17/18 04/17/18 05:45 06:00 06:30 Temperature Pulse Rate 92 H 101 H Pulse Rate [ Anterior Bilateral] Pulse Rate [ From Monitor] Respiratory 26 H 20 26 H Rate Respiratory Rate [Anterior Bilateral] Blood Pressure 174/76 177/82 O2 Sat by Pulse 98 93 Oximetry 04/17/18 04/17/18 04/17/18 07:00 07:16 07:17 Temperature Pulse Rate 102 H 100 H 100 H Pulse Rate [ Anterior Bilateral] Pulse Rate [ From Monitor] Respiratory 31 H Rate Respiratory Rate [Anterior Bilateral] Blood Pressure 177/82 161/74 161/74 O2 Sat by Pulse 94 Oximetry 04/17/18 04/17/18 04/17/18 07:30 08:00 08:30 Temperature 98.2 F Pulse Rate 91 H 92 H 94 H Pulse Rate [ Anterior Bilateral] Pulse Rate [ From Monitor] Respiratory 27 H 21 27 H Rate Respiratory Rate [Anterior Bilateral] Blood Pressure 165/82 165/80 189/83 O2 Sat by Pulse 94 95 95 Oximetry 04/17/18 04/17/18 04/17/18 08:39 08:49 09:00 Temperature Pulse Rate 91 H Pulse Rate [ 103 H 105 H Anterior Bilateral] Pulse Rate [ From Monitor] Respiratory 22 Rate Respiratory 22 22 Rate [Anterior Bilateral] Blood Pressure 193/80 O2 Sat by Pulse 96 100 Oximetry 04/17/18 04/17/18 09:01 11:35 Temperature Pulse Rate 96 H 107 H Pulse Rate [ Anterior Bilateral] Pulse Rate [ From Monitor] Respiratory Rate Respiratory Rate [Anterior Bilateral] Blood Pressure 185/77 163/77 O2 Sat by Pulse Oximetry - General physical appearance well developed, well nourished - Respiratory normal expansion, normal respiratory effort, clear to auscultation - Abdomen soft, other (KRISTI and pigtails in place. LUQ pigtail= white thick fluid. tender at pigtail LUQ. no rebound no guarding. packing changed at umbilical site. ) - Integumentary no rash, no growths - Neurologic normal coordination, normal sensation - Psychiatric oriented to time, oriented to person, oriented to place, speech is normal - Labs 04/18/18 14:54 04/18/18 10:05 Diabetes panel 04/16/18 04/17/18 04/17/18 Range/Units 06:23 04:50 07:17 Sodium 136 L 142 (137-145) mmol/L Potassium TNR 3.4 L Chloride 96.9 L 102.9 (98-107) mmol/L Carbon Dioxide 22 25 (22-30) mmol/L BUN 15 16 (7-17) mg/dL Creatinine 0.7 0.6 L (0.7-1.2) mg/dL Glucose TNR TNR 167 H Calcium 7.6 L 8.0 L (8.4-10.2) mg/dL Calcium panel 04/17/18 04/17/18 Range/Units 04:50 07:17 Calcium 7.6 L 8.0 L (8.4-10.2) mg/dL Phosphorus TNR 3.30 Pituitary panel 04/16/18 04/17/18 04/17/18 Range/Units 06:23 04:50 07:17 Sodium 136 L 142 (137-145) mmol/L Potassium TNR 3.4 L Chloride 96.9 L 102.9 (98-107) mmol/L Carbon Dioxide 22 25 (22-30) mmol/L BUN 15 16 (7-17) mg/dL Creatinine 0.7 0.6 L (0.7-1.2) mg/dL Glucose TNR TNR 167 H Calcium 7.6 L 8.0 L (8.4-10.2) mg/dL Adrenal panel 07/04/17/18 04/17/18 Range/Units 06:23 04:50 07:17 Sodium 136 L 142 (137-145) mmol/L Potassium TNR 3.4 L Chloride 96.9 L 102.9 (98-107) mmol/L Carbon Dioxide 22 25 (22-30) mmol/L BUN 15 16 (7-17) mg/dL Creatinine 0.7 0.6 L (0.7-1.2) mg/dL Glucose TNR TNR 167 H Calcium 7.6 L 8.0 L (8.4-10.2) mg/dL
--- NOTE | 2018-04-17 12:46 | Progress Note ---
Assessment and Plan Sepsis with altered mental status in the setting of the systemic inflammatory response syndrome. Perforated abdominal viscus status post exploratory laparotomy and repair. Obesity. Pleural effusion Bilateral lower lobe infiltrates Obstructive sleep apnea according to the history. Acute encephalopathy, presumably toxic metabolic. History of hypertension. Arthritis. Gastroesophageal reflux disease. Morbid obesity. Acute hypoxemic respiratory failure Leukocytosis Hyperglycemia--spurious - continue supplemental oxygen to keep sats > 90% -serial CXRs to monitor pleural effusion - BIPAP qhs and prn - Continue incentive spirometry and airway expansion measures -Gentle diuresis while monitoring hemodynamics, electrolyte profile and renal function -bronchodilators( short acting bronchodilators, scheduled) -Antibiotics per ID( peritoneal fluid cultures +for GNR, Serratia) -Monitor fever curve and trend WCC - continue TPN - PT/OT evaluate and treat - continue GI & VTE prophylaxis - wound care per WCT / RN and surgeon - continue other care per attending / other consultants -ok from pulmonary standpoint to transfer surgical floor with telemetry Discussed with surgery service Discussed care plan with RT and RN, updated patient Subjective Date of service: 04/17/18 Principal diagnosis: Sepsis Syndrome; Acute Hypoxemic Resp Failure; Acute Encephalopathy Interval history: Sepsis Syndrome; Acute Hypoxemic Resp Failure; Acute Encephalopathy Seen and examined at bedside; 24hour events reviewed; nursing and respiratory care staff consulted; no adverse overnight events reported to me; resting in bed ; much more appropriate mentally; No N/V/F/C; remains off vasopressors; , clinically improved from a respiratory standpoint. Tolerating BIPAP at night, did not use it last night. Objective Vital Signs - 12hr 04/17/18 04/17/18 04/17/18 01:00 01:30 02:00 Temperature Pulse Rate 91 H 92 H 91 H Pulse Rate [ Anterior Bilateral] Pulse Rate [ From Monitor] Respiratory 25 H 21 22 Rate Respiratory Rate [Anterior Bilateral] Blood Pressure 137/63 123/54 127/59 O2 Sat by Pulse 95 94 91 Oximetry 04/17/18 04/17/18 04/17/18 02:30 03:00 03:17 Temperature 98.1 F Pulse Rate 90 94 H Pulse Rate [ Anterior Bilateral] Pulse Rate [ From Monitor] Respiratory 22 21 Rate Respiratory Rate [Anterior Bilateral] Blood Pressure 125/66 125/66 O2 Sat by Pulse 92 98 Oximetry 04/17/18 04/17/18 04/17/18 03:30 04:00 04:30 Temperature Pulse Rate 92 H 92 H 90 Pulse Rate [ Anterior Bilateral] Pulse Rate [ 92 H From Monitor] Respiratory 24 23 22 Rate Respiratory Rate [Anterior Bilateral] Blood Pressure 164/76 170/78 163/76 O2 Sat by Pulse 97 97 96 Oximetry 04/17/18 04/17/18 04/17/18 05:00 05:15 05:30 Temperature Pulse Rate 95 H 92 H Pulse Rate [ Anterior Bilateral] Pulse Rate [ From Monitor] Respiratory 31 H 22 20 Rate Respiratory Rate [Anterior Bilateral] Blood Pressure 171/81 195/79 O2 Sat by Pulse 97 98 Oximetry 04/17/18 04/17/18 04/17/18 05:45 06:00 06:30 Temperature Pulse Rate 92 H 101 H Pulse Rate [ Anterior Bilateral] Pulse Rate [ From Monitor] Respiratory 26 H 20 26 H Rate Respiratory Rate [Anterior Bilateral] Blood Pressure 174/76 177/82 O2 Sat by Pulse 98 93 Oximetry 04/17/18 04/17/18 04/17/18 07:00 07:16 07:17 Temperature Pulse Rate 102 H 100 H 100 H Pulse Rate [ Anterior Bilateral] Pulse Rate [ From Monitor] Respiratory 31 H Rate Respiratory Rate [Anterior Bilateral] Blood Pressure 177/82 161/74 161/74 O2 Sat by Pulse 94 Oximetry 04/17/18 04/17/18 04/17/18 07:30 08:00 08:30 Temperature 98.2 F Pulse Rate 91 H 92 H 94 H Pulse Rate [ Anterior Bilateral] Pulse Rate [ From Monitor] Respiratory 27 H 21 27 H Rate Respiratory Rate [Anterior Bilateral] Blood Pressure 165/82 165/80 189/83 O2 Sat by Pulse 94 95 95 Oximetry 04/17/18 04/17/18 04/17/18 08:39 08:49 09:00 Temperature Pulse Rate 91 H Pulse Rate [ 103 H 105 H Anterior Bilateral] Pulse Rate [ From Monitor] Respiratory 22 Rate Respiratory 22 22 Rate [Anterior Bilateral] Blood Pressure 193/80 O2 Sat by Pulse 96 100 Oximetry 04/17/18 04/17/18 09:01 11:35 Temperature Pulse Rate 96 H 107 H Pulse Rate [ Anterior Bilateral] Pulse Rate [ From Monitor] Respiratory Rate Respiratory Rate [Anterior Bilateral] Blood Pressure 185/77 163/77 O2 Sat by Pulse Oximetry Constitutional: no acute distress, other (elderly AAF , normocephalic and atraumatic resting in bed with mildly increased work of breathing) Eyes: non-icteric ENT: oropharynx moist, other (no thyromegaly) Neck: supple, no lymphadenopathy, no JVD, other (large neck circumference) Effort: mildly labored Ascultation: Bilateral: diminished breath sounds, rhonchi (scant in bases) Percussion: Bilateral: not dull Cardiovascular: regular rate and rhythm, other (No R/M) Gastrointestinal: hypoactive bowel sounds, soft, tender (around operative site) , non-distended, other (no palpable HSM, multiple intra-abdominal drains) Integumentary: normal Extremities: no cyanosis, no edema, pulses normal, no ischemia or petechiae Neurologic: non-focal exam (grossly), pupils equal and round, CN II-XII normal, motor strength normal and Psychiatric: mood appropriate, affect normal CBC and BMP: 04/17/18 04:50 04/18/18 06:30 ABG, PT/INR, D-dimer: ABG POC ABG pH 7.519 (7.35-7.45) H 04/10/18 12:59 POC ABG pCO2 29.3 (35-45) L 04/10/18 12:59 POC ABG pO2 63 (80-105) L 04/10/18 12:59 POC ABG HCO3 23.9 04/10/18 12:59 POC ABG Total CO2 25 04/10/18 12:59 POC ABG O2 Sat 94 04/10/18 12:59 PT/INR, D-dimer PT 13.5 Sec. (12.2-14.9) 04/07/18 09:41 INR 0.98 (0.87-1.13) 04/07/18 09:41 Abnormal lab findings: Abnormal Labs 04/07/18 04/07/18 04/07/18 00:05 00:05 09:41 WBC 18.4 H 21.3 H RBC Hgb Hct MCHC RDW Plt Count Lymph % (Auto) 4.5 L Rock % (Auto) Lymph # 0.8 L Rock # 1.2 H Seg Neutrophils % 88.9 H Seg Neuts % (Manual) 85.0 H Lymphocytes % (Manual) 4.0 L Monocytes % (Manual) Nucleated RBC % Seg Neutrophils # 16.4 H Seg Neutrophils # Man 18.1 H Lymphocytes # (Manual) 0.9 L Monocytes # (Manual) 1.1 H POC ABG pH POC ABG pCO2 POC ABG pO2 Sodium Potassium Chloride Carbon Dioxide BUN Creatinine Glucose 123 H POC Glucose Calcium 8.0 L Phosphorus Magnesium 1.60 L AST 59 H C-Reactive Protein Total Protein Albumin 2.9 L Urine WBC (Auto) 04/07/18 04/08/18 04/08/18 09:41 00:20 10:25 WBC 19.2 H RBC Hgb Hct MCHC RDW Plt Count Lymph % (Auto) 5.4 L Rock % (Auto) Lymph # 1.0 L Rock # 1.1 H Seg Neutrophils % 88.9 H Seg Neuts % (Manual) Lymphocytes % (Manual) Monocytes % (Manual) Nucleated RBC % Seg Neutrophils # 17.1 H Seg Neutrophils # Man Lymphocytes # (Manual) Monocytes # (Manual) POC ABG pH POC ABG pCO2 POC ABG pO2 Sodium Potassium 3.3 L Chloride 95.1 L Carbon Dioxide 21 L BUN Creatinine Glucose 113 H POC Glucose Calcium Phosphorus Magnesium AST C-Reactive Protein Total Protein Albumin 3.6 L Urine WBC (Auto) 45.0 H 04/08/18 04/08/18 04/08/18 10:25 13:33 23:53 WBC 12.8 H RBC Hgb Hct MCHC RDW Plt Count Lymph % (Auto) Rock % (Auto) Lymph # Rock # Seg Neutrophils % Seg Neuts % (Manual) 97.0 H Lymphocytes % (Manual) 2.0 L Monocytes % (Manual) Nucleated RBC % Seg Neutrophils # Seg Neutrophils # Man 12.4 H Lymphocytes # (Manual) 0.3 L Monocytes # (Manual) POC ABG pH POC ABG pCO2 POC ABG pO2 Sodium Potassium 3.5 L Chloride Carbon Dioxide BUN Creatinine Glucose 123 H POC Glucose Calcium 7.9 L Phosphorus Magnesium AST 53 H C-Reactive Protein 52.00 H Total Protein 6.1 L Albumin 2.7 L Urine WBC (Auto) 04/09/18 04/09/18 04/09/18 04:20 04:20 13:38 WBC 16.2 H RBC Hgb Hct MCHC RDW Plt Count Lymph % (Auto) Rock % (Auto) Lymph # Rock # Seg Neutrophils % Seg Neuts % (Manual) 89.0 H Lymphocytes % (Manual) 4.0 L Monocytes % (Manual) Nucleated RBC % Seg Neutrophils # Seg Neutrophils # Man 14.4 H Lymphocytes # (Manual) 0.6 L Monocytes # (Manual) POC ABG pH 7.494 H POC ABG pCO2 31.6 L POC ABG pO2 68 L Sodium Potassium 3.5 L Chloride Carbon Dioxide BUN Creatinine 0.6 L Glucose 117 H POC Glucose Calcium 7.9 L Phosphorus 1.50 L D Magnesium AST C-Reactive Protein Total Protein 5.6 L Albumin 2.9 L Urine WBC (Auto) 04/09/18 04/09/18 04/09/18 18:25 21:45 21:45 WBC 21.3 H RBC 3.62 L Hgb Hct MCHC 35 H RDW Plt Count Lymph % (Auto) Rock % (Auto) Lymph # Rock # Seg Neutrophils % Seg Neuts % (Manual) 90.0 H Lymphocytes % (Manual) 6.0 L Monocytes % (Manual) Nucleated RBC % 1.0 H Seg Neutrophils # Seg Neutrophils # Man 19.2 H Lymphocytes # (Manual) Monocytes # (Manual) 0.9 H POC ABG pH POC ABG pCO2 POC ABG pO2 Sodium Potassium Chloride Carbon Dioxide BUN 5 L Creatinine 0.5 L Glucose 134 H POC Glucose 155 H Calcium 7.9 L Phosphorus 2.20 L D Magnesium AST C-Reactive Protein Total Protein Albumin Urine WBC (Auto) 04/09/18 04/10/18 04/10/18 23:38 04:07 04:07 WBC 20.2 H RBC 3.38 L Hgb 9.4 L Hct 28.9 L MCHC RDW Plt Count Lymph % (Auto) Rock % (Auto) Lymph # Rock # Seg Neutrophils % Seg Neuts % (Manual) Lymphocytes % (Manual) 6.0 L Monocytes % (Manual) Nucleated RBC % Seg Neutrophils # Seg Neutrophils # Man 10.7 H Lymphocytes # (Manual) Monocytes # (Manual) POC ABG pH POC ABG pCO2 POC ABG pO2 Sodium Potassium Chloride Carbon Dioxide BUN 6 L Creatinine 0.6 L Glucose 176 H POC Glucose 160 H Calcium 7.7 L Phosphorus Magnesium AST C-Reactive Protein Total Protein Albumin Urine WBC (Auto) 04/10/18 04/10/18 04/10/18 05:29 11:55 12:59 WBC RBC Hgb Hct MCHC RDW Plt Count Lymph % (Auto) Rock % (Auto) Lymph # Rock # Seg Neutrophils % Seg Neuts % (Manual) Lymphocytes % (Manual) Monocytes % (Manual) Nucleated RBC % Seg Neutrophils # Seg Neutrophils # Man Lymphocytes # (Manual) Monocytes # (Manual) POC ABG pH 7.519 H POC ABG pCO2 29.3 L POC ABG pO2 63 L Sodium Potassium Chloride Carbon Dioxide BUN Creatinine Glucose POC Glucose 171 H 194 H Calcium Phosphorus Magnesium AST C-Reactive Protein Total Protein Albumin Urine WBC (Auto) 04/10/18 04/10/18 04/10/18 18:11 18:28 18:28 WBC 22.7 H RBC 3.62 L Hgb Hct MCHC RDW Plt Count Lymph % (Auto) Rock % (Auto) Lymph # Rock # Seg Neutrophils % Seg Neuts % (Manual) 84.0 H Lymphocytes % (Manual) 7.0 L Monocytes % (Manual) 8.0 H Nucleated RBC % Seg Neutrophils # Seg Neutrophils # Man 19.1 H Lymphocytes # (Manual) Monocytes # (Manual) 1.8 H POC ABG pH POC ABG pCO2 POC ABG pO2 Sodium Potassium Chloride Carbon Dioxide BUN Creatinine Glucose POC Glucose 118 H Calcium Phosphorus Magnesium AST C-Reactive Protein 45.20 H Total Protein Albumin Urine WBC (Auto) 04/10/18 04/10/18 04/11/18 18:28 23:45 03:35 WBC 20.9 H RBC 3.54 L Hgb 10.0 L Hct MCHC RDW Plt Count Lymph % (Auto) Rock % (Auto) Lymph # Rock # Seg Neutrophils % Seg Neuts % (Manual) 80.0 H Lymphocytes % (Manual) 6.0 L Monocytes % (Manual) Nucleated RBC % Seg Neutrophils # Seg Neutrophils # Man 16.7 H Lymphocytes # (Manual) Monocytes # (Manual) POC ABG pH POC ABG pCO2 POC ABG pO2 Sodium Potassium 3.5 L Chloride Carbon Dioxide BUN 5 L Creatinine 0.5 L Glucose 108 H POC Glucose 149 H Calcium 8.3 L Phosphorus Magnesium AST C-Reactive Protein Total Protein Albumin Urine WBC (Auto) 04/11/18 04/11/18 04/11/18 03:35 06:17 11:29 WBC RBC Hgb Hct MCHC RDW Plt Count Lymph % (Auto) Rock % (Auto) Lymph # Rock # Seg Neutrophils % Seg Neuts % (Manual) Lymphocytes % (Manual) Monocytes % (Manual) Nucleated RBC % Seg Neutrophils # Seg Neutrophils # Man Lymphocytes # (Manual) Monocytes # (Manual) POC ABG pH POC ABG pCO2 POC ABG pO2 Sodium Potassium Chloride Carbon Dioxide BUN Creatinine 0.5 L Glucose 143 H POC Glucose 155 H 158 H Calcium 8.2 L Phosphorus Magnesium AST C-Reactive Protein Total Protein 6.0 L Albumin 2.2 L Urine WBC (Auto) 04/11/18 04/11/18 04/12/18 18:13 23:51 05:29 WBC RBC Hgb Hct MCHC RDW Plt Count Lymph % (Auto) Rock % (Auto) Lymph # Rock # Seg Neutrophils % Seg Neuts % (Manual) Lymphocytes % (Manual) Monocytes % (Manual) Nucleated RBC % Seg Neutrophils # Seg Neutrophils # Man Lymphocytes # (Manual) Monocytes # (Manual) POC ABG pH POC ABG pCO2 POC ABG pO2 Sodium Potassium Chloride Carbon Dioxide BUN Creatinine Glucose POC Glucose 135 H 143 H 150 H Calcium Phosphorus Magnesium AST C-Reactive Protein Total Protein Albumin Urine WBC (Auto) 04/12/18 04/12/18 04/13/18 05:40 05:40 00:32 WBC 18.0 H RBC 3.34 L Hgb 9.5 L Hct 28.9 L MCHC RDW Plt Count Lymph % (Auto) 7.4 L Rock % (Auto) 10.8 H Lymph # Rock # 1.9 H Seg Neutrophils % 81.1 H Seg Neuts % (Manual) Lymphocytes % (Manual) Monocytes % (Manual) Nucleated RBC % Seg Neutrophils # 14.6 H Seg Neutrophils # Man Lymphocytes # (Manual) Monocytes # (Manual) POC ABG pH POC ABG pCO2 POC ABG pO2 Sodium Potassium Chloride 107.7 H Carbon Dioxide 21 L BUN Creatinine 0.6 L Glucose 140 H POC Glucose 144 H Calcium Phosphorus Magnesium AST C-Reactive Protein Total Protein Albumin Urine WBC (Auto) 04/13/18 04/13/18 04/13/18 04:20 04:20 04:20 WBC 18.1 H RBC 3.52 L Hgb 9.8 L Hct 30.1 L MCHC RDW Plt Count Lymph % (Auto) 11.1 L Rock % (Auto) 13.6 H Lymph # Rock # 2.5 H Seg Neutrophils % 74.4 H Seg Neuts % (Manual) Lymphocytes % (Manual) Monocytes % (Manual) Nucleated RBC % Seg Neutrophils # 13.4 H Seg Neutrophils # Man Lymphocytes # (Manual) Monocytes # (Manual) POC ABG pH POC ABG pCO2 POC ABG pO2 Sodium Potassium Chloride Carbon Dioxide BUN Creatinine 0.5 L Glucose 142 H POC Glucose Calcium Phosphorus Magnesium AST C-Reactive Protein 29.60 H Total Protein Albumin Urine WBC (Auto) 04/13/18 04/13/18 04/14/18 05:35 23:50 04:00 WBC 22.1 H RBC 3.59 L Hgb 9.9 L Hct MCHC RDW Plt Count Lymph % (Auto) Rock % (Auto) Lymph # Rock # Seg Neutrophils % Seg Neuts % (Manual) 73.0 H Lymphocytes % (Manual) 9.0 L Monocytes % (Manual) 11.0 H Nucleated RBC % Seg Neutrophils # Seg Neutrophils # Man 16.1 H Lymphocytes # (Manual) Monocytes # (Manual) 2.4 H POC ABG pH POC ABG pCO2 POC ABG pO2 Sodium Potassium Chloride Carbon Dioxide BUN Creatinine Glucose POC Glucose 142 H 160 H Calcium Phosphorus Magnesium AST C-Reactive Protein Total Protein Albumin Urine WBC (Auto) 04/14/18 04/14/18 04/14/18 04:00 05:29 12:47 WBC RBC Hgb Hct MCHC RDW Plt Count Lymph % (Auto) Rock % (Auto) Lymph # Rock # Seg Neutrophils % Seg Neuts % (Manual) Lymphocytes % (Manual) Monocytes % (Manual) Nucleated RBC % Seg Neutrophils # Seg Neutrophils # Man Lymphocytes # (Manual) Monocytes # (Manual) POC ABG pH POC ABG pCO2 POC ABG pO2 Sodium Potassium Chloride Carbon Dioxide BUN Creatinine Glucose 155 H POC Glucose 133 H 183 H Calcium Phosphorus Magnesium 2.50 H AST C-Reactive Protein Total Protein Albumin Urine WBC (Auto) 04/14/18 04/14/18 04/15/18 16:01 23:42 04:42 WBC RBC Hgb Hct MCHC RDW Plt Count Lymph % (Auto) Rock % (Auto) Lymph # Rock # Seg Neutrophils % Seg Neuts % (Manual) Lymphocytes % (Manual) Monocytes % (Manual) Nucleated RBC % Seg Neutrophils # Seg Neutrophils # Man Lymphocytes # (Manual) Monocytes # (Manual) POC ABG pH POC ABG pCO2 POC ABG pO2 Sodium Potassium 3.4 L Chloride 107.5 H Carbon Dioxide 21 L BUN Creatinine Glucose 165 H POC Glucose 153 H 172 H Calcium 8.0 L Phosphorus Magnesium 2.40 H AST C-Reactive Protein Total Protein Albumin Urine WBC (Auto) 04/15/18 04/15/18 04/15/18 04:42 05:49 11:17 WBC 21.5 H RBC 3.37 L Hgb 9.4 L Hct 28.9 L MCHC RDW Plt Count 490 H Lymph % (Auto) Rock % (Auto) Lymph # Rock # Seg Neutrophils % Seg Neuts % (Manual) 77.0 H Lymphocytes % (Manual) 7.0 L Monocytes % (Manual) 10.0 H Nucleated RBC % Seg Neutrophils # Seg Neutrophils # Man 16.6 H Lymphocytes # (Manual) Monocytes # (Manual) 2.2 H POC ABG pH POC ABG pCO2 POC ABG pO2 Sodium Potassium Chloride Carbon Dioxide BUN Creatinine Glucose POC Glucose 147 H 119 H Calcium Phosphorus Magnesium AST C-Reactive Protein Total Protein Albumin Urine WBC (Auto) 04/15/18 04/16/18 04/16/18 17:35 00:26 06:12 WBC 20.7 H RBC 3.25 L Hgb 9.0 L Hct MCHC 29 L RDW 16.7 H Plt Count 498 H Lymph % (Auto) Rock % (Auto) Lymph # Rock # Seg Neutrophils % Seg Neuts % (Manual) 88.0 H Lymphocytes % (Manual) 5.0 L Monocytes % (Manual) Nucleated RBC % Seg Neutrophils # Seg Neutrophils # Man 18.2 H Lymphocytes # (Manual) 1.0 L Monocytes # (Manual) POC ABG pH POC ABG pCO2 POC ABG pO2 Sodium Potassium Chloride Carbon Dioxide BUN Creatinine Glucose POC Glucose 169 H 176 H Calcium Phosphorus Magnesium AST C-Reactive Protein Total Protein Albumin Urine WBC (Auto) 04/16/18 04/16/18 04/16/18 06:19 06:21 06:24 WBC RBC Hgb Hct MCHC RDW Plt Count Lymph % (Auto) Rock % (Auto) Lymph # Rock # Seg Neutrophils % Seg Neuts % (Manual) Lymphocytes % (Manual) Monocytes % (Manual) Nucleated RBC % Seg Neutrophils # Seg Neutrophils # Man Lymphocytes # (Manual) Monocytes # (Manual) POC ABG pH POC ABG pCO2 POC ABG pO2 Sodium Potassium Chloride Carbon Dioxide BUN Creatinine Glucose POC Glucose > 500 H 493 H 173 H Calcium Phosphorus Magnesium AST C-Reactive Protein Total Protein Albumin Urine WBC (Auto) 04/16/18 04/16/18 04/16/18 08:52 14:05 17:17 WBC RBC Hgb Hct MCHC RDW Plt Count Lymph % (Auto) Rock % (Auto) Lymph # Rock # Seg Neutrophils % Seg Neuts % (Manual) Lymphocytes % (Manual) Monocytes % (Manual) Nucleated RBC % Seg Neutrophils # Seg Neutrophils # Man Lymphocytes # (Manual) Monocytes # (Manual) POC ABG pH POC ABG pCO2 POC ABG pO2 Sodium Potassium 3.4 L Chloride Carbon Dioxide BUN Creatinine 0.5 L Glucose 166 H POC Glucose 196 H 189 H Calcium 8.2 L Phosphorus Magnesium AST C-Reactive Protein Total Protein Albumin Urine WBC (Auto) 04/17/18 04/17/18 04/17/18 00:06 04:50 04:50 WBC 16.0 H RBC 3.12 L Hgb 8.7 L Hct 29.0 L MCHC RDW 16.2 H Plt Count 455 H Lymph % (Auto) 9.4 L Rock % (Auto) 7.7 H Lymph # Rock # 1.2 H Seg Neutrophils % 81.9 H Seg Neuts % (Manual) Lymphocytes % (Manual) Monocytes % (Manual) Nucleated RBC % Seg Neutrophils # 13.1 H Seg Neutrophils # Man Lymphocytes # (Manual) Monocytes # (Manual) POC ABG pH POC ABG pCO2 POC ABG pO2 Sodium 136 L Potassium Chloride 96.9 L Carbon Dioxide BUN Creatinine Glucose POC Glucose 190 H Calcium 7.6 L Phosphorus Magnesium AST C-Reactive Protein Total Protein Albumin Urine WBC (Auto) 04/17/18 04/17/18 05:38 07:17 WBC RBC Hgb Hct MCHC RDW Plt Count Lymph % (Auto) Rock % (Auto) Lymph # Rock # Seg Neutrophils % Seg Neuts % (Manual) Lymphocytes % (Manual) Monocytes % (Manual) Nucleated RBC % Seg Neutrophils # Seg Neutrophils # Man Lymphocytes # (Manual) Monocytes # (Manual) POC ABG pH POC ABG pCO2 POC ABG pO2 Sodium Potassium 3.4 L Chloride Carbon Dioxide BUN Creatinine 0.6 L Glucose 167 H POC Glucose 190 H Calcium 8.0 L Phosphorus Magnesium AST C-Reactive Protein Total Protein Albumin Urine WBC (Auto) Allied health notes reviewed: RT (BIPAP qhs, currently on 2L NC)
--- NOTE | 2018-04-17 13:18 | Progress Note ---
Assessment and Plan Assessment: 1) Sepsis:better. Etiology most likely perf / intra-abdominal collection 2) Gastric perf and intra-abdominal fluid collection -S/P OR for ex lap, abdominal washout, repair of gastric perforation and placement of drains on 04/08/18 -04/07 peritoneal fluid + Serratia x 2 -Repeat CTA 04/09 showed no PE however increase in left pleural effusion with dense consolidation consistent with atelectasis and a large fluid collection 14 x 4.7 cm in the left lobe of the fever with air bubbles. 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 atelectasis Plan: -f/u drainage cx 04/16 -continue cefepime and flagyl D4 (s/p zosyn 7 days) -continue vanco D8/10 -monitor fever and leukocytosis I am rounding on 04/19 Thank you for your consultation, will follow up with you. Katerin Cross MD Infectious Diseases Specialist [facility] [phone] O [phone] Subjective Date of service: 04/17/18 Principal diagnosis: Sepsis Syndrome; Acute Hypoxemic Resp Failure; Acute Encephalopathy Interval history: feels better, alert, talking, no fever Microbiology: Blood cultures: 04/07 neg 04/10 ngtd Peritoneal cultures: 04/07 Serratia x 2 04/10 ngtd Current Antimicrobials: cefepime and flagyl 04/14 vanco 04/10 Previous Antimicrobials: Fluconazole Zosyn 04/08-04/14 Objective - Exam Narrative Exam: General appearance: Alert in mild shortness of breath NC O2 Eyes: anicteric sclerae, moist conjunctivae; no lid-lag; PERRLA HENT: Atraumatic; oropharynx NGT Neck: Trachea midline; supple, no thyromegaly or lymphadenopathy Lungs: CTA CV: RRR Abdomen: Obese, Soft, midline surgical wound covered with dressings drain in place KRISTI R minimal purulent output KRISTI L minimal serosang output Extremities: No peripheral edema or extremity lymphadenopathy Skin: Normal temperature, turgor and texture; no rash, ulcers or subcutaneous nodules Psych: Appropriate affect, alert and oriented to person, place and time. Neuro: alert and oriented x 3. Moving all extermities Lines: right PICC, staton - Constitutional Vitals: Vital Signs Temp Pulse Resp BP Pulse Ox 99.2 F 107 H 22 163/77 100 04/17/18 12:00 04/17/18 11:35 04/17/18 09:00 04/17/18 11:35 04/17/18 09:00 Temperature -Last 24 Hours Temperature 99.2 F Temperature 98.2 F Temperature 98.1 F Temperature 98.6 F Temperature 99.2 F Temperature 98.9 F - Labs CBC & Chem 7: 04/17/18 04:50 04/17/18 07:17 Labs: Abnormal lab results 04/16/18 04/16/18 04/17/18 Range/Units 14:05 17:17 00:06 WBC (4.5-11.0) K/mm3 RBC (3.65-5.03) M/mm3 Hgb (10.1-14.3) gm/dl Hct (30.3-42.9) % RDW (13.2-15.2) % Plt Count (140-440) K/mm3 Lymph % (Auto) (13.4-35.0) % Bates % (Auto) (0.0-7.3) % Bates # (0.0-0.8) K/mm3 Seg Neutrophils % (40.0-70.0) % Seg Neutrophils # (1.8-7.7) K/mm3 Sodium (137-145) mmol/L Potassium (3.6-5.0) mmol/L Chloride (98-107) mmol/L Creatinine (0.7-1.2) mg/dL Glucose (65-100) mg/dL POC Glucose 196 H 189 H 190 H (70-105) Calcium (8.4-10.2) mg/dL 04/17/18 04/17/18 04/17/18 Range/Units 04:50 04:50 05:38 WBC 16.0 H (4.5-11.0) K/mm3 RBC 3.12 L (3.65-5.03) M/mm3 Hgb 8.7 L (10.1-14.3) gm/dl Hct 29.0 L (30.3-42.9) % RDW 16.2 H (13.2-15.2) % Plt Count 455 H (140-440) K/mm3 Lymph % (Auto) 9.4 L (13.4-35.0) % Bates % (Auto) 7.7 H (0.0-7.3) % Bates # 1.2 H (0.0-0.8) K/mm3 Seg Neutrophils % 81.9 H (40.0-70.0) % Seg Neutrophils # 13.1 H (1.8-7.7) K/mm3 Sodium 136 L (137-145) mmol/L Potassium (3.6-5.0) mmol/L Chloride 96.9 L (98-107) mmol/L Creatinine (0.7-1.2) mg/dL Glucose (65-100) mg/dL POC Glucose 190 H (70-105) Calcium 7.6 L (8.4-10.2) mg/dL 04/17/18 Range/Units 07:17 WBC (4.5-11.0) K/mm3 RBC (3.65-5.03) M/mm3 Hgb (10.1-14.3) gm/dl Hct (30.3-42.9) % RDW (13.2-15.2) % Plt Count (140-440) K/mm3 Lymph % (Auto) (13.4-35.0) % Bates % (Auto) (0.0-7.3) % Bates # (0.0-0.8) K/mm3 Seg Neutrophils % (40.0-70.0) % Seg Neutrophils # (1.8-7.7) K/mm3 Sodium (137-145) mmol/L Potassium 3.4 L (3.6-5.0) mmol/L Chloride (98-107) mmol/L Creatinine 0.6 L (0.7-1.2) mg/dL Glucose 167 H (65-100) mg/dL POC Glucose (70-105) Calcium 8.0 L (8.4-10.2) mg/dL
[2018-04-17] MEDS ORDERED: TPN ADULT 1,800 ML IV SCH (20:00)
--- NOTE | 2018-04-17 21:12 | Consultation ---
History of Present Illness - Reason for Consult Consult date: 04/17/18 medical management Requesting physician: Blanca Wynn - History of Present Illness History of Present Illness: 58 y.o. F s/p lap sleeve gastrectomy with hiatal hernia repair and partial fundoplication 03/30/18, presented to the ER c/o abdominal pain and nausea x 2 days. she had been doing well in her post operative course until she felt nauseas a couple of days ago. On 04/06/18 she started to have LUQ pain. The pain worsened overnight and was 10/10 . She had a fever of 102 per pt at home. She felt nauseous, +vomiting. she denies sob, chest pain. Nothing alleviated her pain. She called the office and was told to go to the ER. In the ER she was noted to have a WBC of >20, tachycardiac as well. A CT abd/ pelvis was performed= free air. Past History Past Medical History: hypertension, other (sleep apnea, morbid obesity ) Past Surgical History: Other (rigth hand ganglion cyst removal, hysterectomy, Left knee replacement, right knee replacement, back surgery, lap sleeve gastrectomy with hiatal hernia repair and parital fundoplication) Social history: other (former smoker- last 1989) Family history: no significant family history Medications and Allergies Allergies Allergy/AdvReac Type Severity Reaction Status Date / Time No Known Allergies Allergy Unverified 03/16/18 11:09 Home Medications Medication Instructions Recorded Confirmed Last Taken Type Budesonide/Formoterol Fumarate 2 puff INHALATION BID 03/26/18 04/07/18 03/26/18 History [Symbicort 160-4.5 Mcg Inhaler] Bupropion HCl [Wellbutrin XL] 300 mg PO QAM 03/26/18 04/07/18 03/28/18 History Gabapentin [Neurontin] 400 mg PO TID 03/26/18 04/07/18 03/29/18 History LORazepam [Ativan] 1 mg PO BID PRN 03/26/18 04/07/18 03/29/18 History Linaclotide [Linzess] 145 mcg PO QAM 03/26/18 04/07/18 03/29/18 History Dexlansoprazole (Nf) [Dexilant 60 mg PO QAM 03/30/18 04/07/18 03/28/18 History (Nf)] HYDROcodone/APAP 7.5-325 [[place] 1 each PO Q12H PRN 04/07/18 04/07/18 Unknown History 7.5/325] Active Meds: Active Medications Vancomycin HCl (Vancomycin Pharmacy To Dose) 1 each IV PKCONSULT JULIETTE Past History Past Medical History: hypertension, other (sleep apnea, morbid obesity ) Past Surgical History: Other (rigth hand ganglion cyst removal, hysterectomy, Left knee replacement, right knee replacement, back surgery, lap sleeve gastrectomy with hiatal hernia repair and parital fundoplication) Social history: other (former smoker- last 1989) Family history: no significant family history Medications and Allergies Allergies Allergy/AdvReac Type Severity Reaction Status Date / Time No Known Allergies Allergy Unverified 03/16/18 11:09 Home Medications Medication Instructions Recorded Confirmed Last Taken Type Budesonide/Formoterol Fumarate 2 puff INHALATION BID 03/26/18 04/09/18 03/26/18 History [Symbicort 160-4.5 Mcg Inhaler] Bupropion HCl [Wellbutrin XL] 300 mg PO QAM 03/26/18 04/09/18 03/28/18 History Gabapentin [Neurontin] 400 mg PO TID 03/26/18 04/09/18 03/29/18 History LORazepam [Ativan] 1 mg PO BID PRN 03/26/18 04/09/18 03/29/18 History Linaclotide [Linzess] 145 mcg PO QAM 03/26/18 04/09/18 03/29/[address] Arana) [Dexilant 60 mg PO QAM 03/30/18 04/09/18 03/28/18 History (Cecilia)] HYDROcodone/APAP 7.5-325 [[place] 1 each PO Q12H PRN 04/07/18 04/09/18 Unknown History 7.5/325] Active Meds: Active Medications Acetaminophen (Tylenol) 650 mg IN Q6H PRN PRN Reason: Fever >101 Last Admin: 04/14/18 21:04 Dose: 650 mg Albuterol (Proventil) 2.5 mg IH Q4HRT PRN PRN Reason: Shortness Of Breath Last Admin: 04/11/18 05:25 Dose: 2.5 mg Arformoterol Tartrate (Brovana Nebu) 15 mcg IH Q12HRT JULIETTE Last Admin: 04/17/18 19:35 Dose: 15 mcg Budesonide (Pulmicort) 0.5 mg IH Q12HRT JULIETTE Last Admin: 04/17/18 19:35 Dose: 0.5 mg Enalaprilat (Vasotec) 1.25 mg IV Q6HR J[facility]ETTE Last Admin: 04/17/18 18:58 Dose: 1.25 mg Enoxaparin Sodium (Lovenox) 40 mg SUB-Q QDAY@2200 JUL[facility]ETTE Last Admin: 04/16/18 22:22 Dose: 40 mg Hydralazine HCl (Apresoline) 20 mg IV Q6H PRN PRN Reason: FOR SBP > 160 OR DBP > 90 Last Admin: 04/17/18 09:01 Dose: 20 mg Hydromorphone HCl (Dilaudid) 0.5 mg IV Q3H PRN PRN Reason: Pain , Severe (7-10) Last Admin: 04/17/18 19:00 Dose: 0.5 mg Cefepime HCl (Maxipime/Ns 2 Gm/100 Ml) 2 gm in 100 mls @ 200 mls/hr IV Q8HR JULIETTE ; Protocol Last Admin: 04/17/18 14:17 Dose: 200 mls/hr Metronidazole (Flagyl 500 Mg/100 Ml) 500 mg in 100 mls @ 100 mls/hr IV Q8HR JULIETTE ; Protocol Last Admin: 04/17/18 15:21 Dose: 100 mls/hr Vancomycin HCl 1,750 mg/ (Sodium Chloride) 517.5 mls @ 333.333 mls/hr IV Q8HR JUL[facility]ETTE Last Admin: 04/17/18 16:28 Dose: 333.333 mls/hr Amino Acids/Electrolytes/Dextrose (Tpn Adult) 1,800 mls @ 75 mls/hr IV DAILY@ 2000 JULIETTE; Protocol Stop: 04/18/18 19:59 Labetalol HCl (Normodyne) 20 mg IV Q4H PRN PRN Reason: FOR SBP > 160, DBP > 90 Last Admin: 04/16/18 21:10 Dose: 20 mg Lorazepam (Ativan) 1 mg IV BID PRN PRN Reason: Agitation Last Admin: 04/15/18 22:00 Dose: 1 mg Metoprolol Tartrate (Lopressor) 5 mg IV Q6HR [facility] Last Admin: 04/17/18 18:58 Dose: 5 mg Ondansetron HCl (Zofran) 4 mg IV Q8H PRN PRN Reason: Nausea And Vomiting Last Admin: 04/17/18 05:15 Dose: 4 mg Pantoprazole Sodium (Protonix) 40 mg IV QDAY [facility] Last Admin: 04/17/18 11:42 Dose: 40 mg Phenol (Chloraseptic) 2 spray MM PRN PRN PRN Reason: Sore Throat Last Admin: 04/09/18 02:16 Dose: 2 spray Sodium Chloride (Sodium Chloride Flush Syringe 10 Ml) 10 ml IV BID [facility] Last Admin: 04/17/18 11:44 Dose: 10 ml Sodium Chloride (Sodium Chloride Flush Syringe 10 Ml) 10 ml IV PRN PRN PRN Reason: LINE FLUSH Vancomycin HCl (Vancomycin Pharmacy To Dose) 1 each IV PKCONSULT [facility] Review of Systems All systems: negative Constitutional: fever, chills Ears, nose, mouth and throat: no dysphagia, no hoarseness, no sore throat Cardiovascular: no chest pain, no orthopnea, no palpitations, no rapid/ irregular heart beat, no edema, no syncope, no lightheadedness, no shortness of breath Respiratory: no cough, no cough with sputum, no excessive sputum, no hemoptysis , no shortness of breath, no dyspnea on exertion Gastrointestinal: abdominal pain, nausea Genitourinary Female: no dysuria, no urinary frequency, no urgency Rectal: no pain Musculoskeletal: no neck stiffness, no neck pain, no shooting arm pain, no arm numbness/tingling, no low back pain, no shooting leg pain, no leg numbness/ tingling, no redness of joints Integumentary: no rash, no pruritis, no redness, no sores Neurological: no seizures, no syncope Psychiatric: no anxiety, no memory loss Endocrine: no cold intolerance, no heat intolerance, no polyphagia, no excessive thirst Hematologic/Lymphatic: no easy bruising, no easy bleeding Allergic/Immunologic: no urticaria, no allergic rhinitis, no wheezing Exam - Constitutional Vitals: Temp Pulse Resp BP Pulse Ox 99.2 F 94 H 22 178/87 96 04/17/18 15:59 04/17/18 19:43 04/17/18 19:43 04/17/18 18:58 04/17/18 19:36 General appearance: Present: no acute distress, well-nourished - EENT Eyes: Present: PERRL ENT: hearing intact, clear oral mucosa - Neck Neck: Present: supple, normal ROM - Respiratory Respiratory effort: normal Respiratory: bilateral: CTA - Cardiovascular Heart rate: 78 Rhythm: regular Heart Sounds: Present: S1 & S2. Absent: rub, click - Extremities Extremities: no ischemia, pulses intact, pulses symmetrical, No edema Peripheral Pulses: within normal limits - Abdominal General gastrointestinal: Present: soft, non-tender, tender, distended, normal bowel sounds Female genitourinary: Present: normal - Integumentary Integumentary: Present: clear, warm, dry - Musculoskeletal Musculoskeletal: gait normal, strength equal bilaterally - Psychiatric Psychiatric: appropriate mood/affect, intact judgment & insight - Neurologic Neurologic: CNII-XII intact, moves all extremities - Allied Health Allied health notes reviewed: nursing, case management Results - Labs CBC & Chem 7: 04/17/18 04:50 04/17/18 07:17 Labs: Abnormal lab results 04/17/18 04/17/18 04/17/18 Range/Units 00:06 04:50 04:50 WBC 16.0 H (4.5-11.0) K/mm3 RBC 3.12 L (3.65-5.03) M/mm3 Hgb 8.7 L (10.1-14.3) gm/dl Hct 29.0 L (30.3-42.9) % RDW 16.2 H (13.2-15.2) % Plt Count 455 H (140-440) K/mm3 Lymph % (Auto) 9.4 L (13.4-35.0) % [place] % (Auto) 7.7 H (0.0-7.3) % [place] # 1.2 H (0.0-0.8) K/mm3 Seg Neutrophils % 81.9 H (40.0-70.0) % Seg Neutrophils # 13.1 H (1.8-7.7) K/mm3 Sodium 136 L (137-145) mmol/L Potassium (3.6-5.0) mmol/L Chloride 96.9 L (98-107) mmol/L Creatinine (0.7-1.2) mg/dL Glucose (65-100) mg/dL POC Glucose 190 H (70-105) Calcium 7.6 L (8.4-10.2) mg/dL 04/17/18 04/17/18 04/17/18 Range/Units 05:38 07:17 11:50 WBC (4.5-11.0) K/mm3 RBC (3.65-5.03) M/mm3 Hgb (10.1-14.3) gm/dl Hct (30.3-42.9) % RDW (13.2-15.2) % Plt Count (140-440) K/mm3 Lymph % (Auto) (13.4-35.0) % [place] % (Auto) (0.0-7.3) % [place] # (0.0-0.8) K/mm3 Seg Neutrophils % (40.0-70.0) % Seg Neutrophils # (1.8-7.7) K/mm3 Sodium (137-145) mmol/L Potassium 3.4 L (3.6-5.0) mmol/L Chloride (98-107) mmol/L Creatinine 0.6 L (0.7-1.2) mg/dL Glucose 167 H (65-100) mg/dL POC Glucose 190 H 163 H (70-105) Calcium 8.0 L (8.4-10.2) mg/dL IMPRESSION: No acute infiltrate or effusion. Nasogastric tube and right central catheter are appropriately positioned.. Assessment and Plan - Patient Problems (1) Sepsis Current Visit: Yes Status: Acute Qualifiers: Sepsis type: sepsis due to unspecified organism Qualified Code(s): A41.9 - Sepsis, unspecified organism Plan to address problem: Cont cefepime and Flagyl Leukocytosis improved (2) Pneumoperitoneum Current Visit: Yes Status: Acute Plan to address problem: 10 Fr APD drain placed in the LUQ collection by Dr Davey 10 mL white secretions removed Attached to urosil drain (3) Hypokalemia Current Visit: Yes Status: Acute Plan to address problem: Supplemented (4) Hyperglycemia Current Visit: Yes Status: Chronic Plan to address problem: Coverage for now (5) Asthma Current Visit: Yes Status: Chronic Qualifiers: Asthma severity: unspecified severity Plan to address problem: Cont Symbicort BID Prn (6) IBS (irritable bowel syndrome) Current Visit: Yes Status: Chronic Qualifiers: Irritable bowel syndrome type: unspecified Qualified Code(s): K58.9 - Irritable bowel syndrome without diarrhea Plan to address problem: Dulce Lopez (7) DVT prophylaxis Current Visit: Yes Status: Acute Plan to address problem: SCD's for now
[2018-04-17] MEDS ORDERED: NON-FORMULARY (Budesonide/Formoterol Fumarate [Symbicort 160-4.5 Mcg Inhaler] 2 PUFF) INHALATION SCH (22:00)
[2018-04-17] MEDS: LOVENOX SUB-Q SCH (22:30)
[2018-04-17] MEDS: KCL 10MEQ/100ML 10 MEQ/100 ML BAG IV SCH (23:54)
[2018-04-18] MEDS: SODIUM CHLORIDE FLUSH SYRINGE 10 ML IV SCH ×3 (00:03→21:58)
[2018-04-18] MEDS: KCL 10MEQ/100ML 10 MEQ/100 ML BAG IV SCH ×3 (01:10→03:21)
[2018-04-18] MEDS: ZOFRAN IV PRN (03:07)
--- NOTE | 2018-04-18 03:58 | XRay Report ---
FINAL REPORT PROCEDURE: XR CHEST 1V AP TECHNIQUE: Chest radiograph anteroposterior view. CPT 12443 HISTORY: follow up respiratory failure COMPARISON: 04/17/2018 FINDINGS: Heart: Normal. Mediastinum/Vessels: There is a battery identified in the left chest wall. Lungs/Pleural space: Mild vascular congestion. Bony thorax: No acute osseous abnormality. Life support devices: The nasogastric tube ends below the hemidiaphragms. Right PICC catheter ends in the SVC. IMPRESSION: Mild vascular congestion..
[2018-04-18] MEDS: VASOTEC IV SCH ×4 (05:03→23:07)
[2018-04-18] MEDS: LOPRESSOR IV SCH ×4 (05:04→23:07)
[2018-04-18] MEDS: VANCOMYCIN 1,750 MG in NACL 0.9% 500 ML 500 ML IV SCH ×3 (05:12→23:07)
[2018-04-18] MEDS: FLAGYL 500 MG/100 ML 500 MG/100 ML BAG IV SCH ×3 (05:12→21:57)
[2018-04-18] MEDS: MAXIPIME/NS 2 GM/100 ML 2 GM/100 ML BAG IV SCH ×3 (05:13→21:18)
[2018-04-18] MEDS: DILAUDID IV PRN ×4 (05:40→21:03)
[2018-04-18] MEDS: BROVANA NEBU IH SCH ×2 (07:21→19:42)
[2018-04-18] MEDS: PULMICORT IH SCH ×2 (07:22→19:42)
--- NOTE | 2018-04-18 09:17 | Progress Note ---
Assessment and Plan Sepsis with altered mental status in the setting of the systemic inflammatory response syndrome. Perforated abdominal viscus status post exploratory laparotomy and repair. Obesity. Pleural effusion Bilateral lower lobe infiltrates Obstructive sleep apnea according to the history. Acute encephalopathy, presumably toxic metabolic. History of hypertension. Arthritis. Gastroesophageal reflux disease. Morbid obesity. Acute hypoxemic respiratory failure Leukocytosis Hyperglycemia--spurious - continue supplemental oxygen to keep sats > 90% -no need for thoracentesis based on CXR done today 04/18/18 - BIPAP qhs and prn - Continue incentive spirometry and airway expansion measures -Gentle diuresis while monitoring hemodynamics, electrolyte profile and renal function -bronchodilators( short acting bronchodilators, scheduled) -Antibiotics per ID( peritoneal fluid cultures +for GNR, Serratia) -Monitor fever curve and trend WCC - continue TPN - PT/OT evaluate and treat - continue GI & VTE prophylaxis - wound care per WCT / RN and surgeon - continue other care per attending / other consultants -ok from pulmonary standpoint to transfer surgical floor with telemetry Discussed with surgery service Discussed care plan with RT and RN, updated patient Subjective Date of service: 04/18/18 Principal diagnosis: Sepsis Syndrome; Acute Hypoxemic Resp Failure; Acute Encephalopathy Interval history: Sepsis Syndrome; Acute Hypoxemic Resp Failure; Acute Encephalopathy Seen and examined at bedside; 24hour events reviewed; nursing and respiratory care staff consulted; no adverse overnight events reported to me; resting in bed ; much more appropriate mentally; No N/V/F/C; remains off vasopressors; , clinically improved from a respiratory standpoint. Tolerating BIPAP at night, did not use it last night. Objective Vital Signs - 12hr 04/17/18 04/17/18 04/17/18 21:30 22:00 22:30 Temperature Pulse Rate 100 H 102 H 100 H Pulse Rate [ Anterior Bilateral] Pulse Rate [ From Monitor] Respiratory 23 16 22 Rate Respiratory Rate [Abdomen] Respiratory Rate [Anterior Bilateral] Blood Pressure 163/77 168/117 152/70 O2 Sat by Pulse 97 94 98 Oximetry 04/17/18 04/17/18 04/17/18 23:00 23:30 23:50 Temperature 97.6 F Pulse Rate 99 H 105 H 99 H Pulse Rate [ Anterior Bilateral] Pulse Rate [ 100 H From Monitor] Respiratory 17 23 22 Rate Respiratory 22 Rate [Abdomen] Respiratory Rate [Anterior Bilateral] Blood Pressure 139/73 139/73 O2 Sat by Pulse 98 98 99 Oximetry 04/17/18 04/17/18 04/17/18 23:55 23:56 23:59 Temperature Pulse Rate 99 H 99 H 91 H Pulse Rate [ Anterior Bilateral] Pulse Rate [ From Monitor] Respiratory 19 Rate Respiratory Rate [Abdomen] Respiratory Rate [Anterior Bilateral] Blood Pressure 147/70 147/70 151/74 O2 Sat by Pulse 99 Oximetry 04/18/18 04/18/18 04/18/18 00:00 00:30 01:00 Temperature Pulse Rate 92 H 93 H 94 H Pulse Rate [ Anterior Bilateral] Pulse Rate [ From Monitor] Respiratory 19 27 H 19 Rate Respiratory Rate [Abdomen] Respiratory Rate [Anterior Bilateral] Blood Pressure 151/74 151/74 151/74 O2 Sat by Pulse 98 99 99 Oximetry 04/18/18 04/18/18 04/18/18 01:30 02:00 02:20 Temperature Pulse Rate 94 H 96 H 96 H Pulse Rate [ Anterior Bilateral] Pulse Rate [ 100 H From Monitor] Respiratory 19 19 22 Rate Respiratory Rate [Abdomen] Respiratory Rate [Anterior Bilateral] Blood Pressure 144/69 144/69 O2 Sat by Pulse 98 100 99 Oximetry 04/18/18 04/18/18 04/18/18 02:30 03:00 03:30 Temperature Pulse Rate 98 H 95 H 94 H Pulse Rate [ Anterior Bilateral] Pulse Rate [ From Monitor] Respiratory 24 27 H 15 Rate Respiratory Rate [Abdomen] Respiratory Rate [Anterior Bilateral] Blood Pressure 164/80 177/85 177/85 O2 Sat by Pulse 97 99 98 Oximetry 04/18/18 04/18/18 04/18/18 04:00 04:30 04:50 Temperature 97.6 F Pulse Rate 92 H 92 H 96 H Pulse Rate [ Anterior Bilateral] Pulse Rate [ 100 H From Monitor] Respiratory 23 23 22 Rate Respiratory Rate [Abdomen] Respiratory Rate [Anterior Bilateral] Blood Pressure 177/85 139/60 O2 Sat by Pulse 98 98 99 Oximetry 04/18/18 04/18/18 04/18/18 05:00 05:03 05:04 Temperature Pulse Rate 91 H 91 H 99 H Pulse Rate [ Anterior Bilateral] Pulse Rate [ From Monitor] Respiratory 24 Rate Respiratory Rate [Abdomen] Respiratory Rate [Anterior Bilateral] Blood Pressure 149/62 139/60 139/60 O2 Sat by Pulse 97 Oximetry 04/18/18 04/18/1804/18/18 05:30 05:40 05:45 Temperature Pulse Rate 87 Pulse Rate [ Anterior Bilateral] Pulse Rate [ From Monitor] Respiratory 22 21 21 Rate Respiratory Rate [Abdomen] Respiratory Rate [Anterior Bilateral] Blood Pressure 149/62 O2 Sat by Pulse 99 Oximetry 04/18/18 04/18/18 04/18/18 06:00 06:16 06:31 Temperature Pulse Rate 88 93 H Pulse Rate [ Anterior Bilateral] Pulse Rate [ 100 H From Monitor] Respiratory 17 22 22 Rate Respiratory Rate [Abdomen] Respiratory Rate [Anterior Bilateral] Blood Pressure 165/78 165/78 O2 Sat by Pulse 96 99 95 Oximetry 04/18/18 04/18/18 04/18/18 07:22 07:47 08:00 Temperature 99.2 F Pulse Rate Pulse Rate [ 94 H 95 H Anterior Bilateral] Pulse Rate [ From Monitor] Respiratory Rate Respiratory Rate [Abdomen] Respiratory 18 23 Rate [Anterior Bilateral] Blood Pressure O2 Sat by Pulse 95 Oximetry Constitutional: no acute distress, other (elderly AAF , normocephalic and atraumatic resting in bed with mildly increased work of breathing) Eyes: non-icteric ENT: oropharynx moist, other (no thyromegaly) Neck: supple, no lymphadenopathy, no JVD, other (large neck circumference) Effort: mildly labored Ascultation: Bilateral: diminished breath sounds, rhonchi (scant in bases) Percussion: Bilateral: not dull Cardiovascular: regular rate and rhythm, other (No R/M) Gastrointestinal: hypoactive bowel sounds, soft, tender (around operative site) , non-distended, other (no palpable HSM, multiple intra-abdominal drains) Integumentary: normal Extremities: no cyanosis, no edema, pulses normal, no ischemia or petechiae Neurologic: non-focal exam (grossly), pupils equal and round, CN II-XII normal, motor strength normal and Psychiatric: mood appropriate, affect normal CBC and BMP: 04/17/18 04:50 04/18/18 06:30 ABG, PT/INR, D-dimer: ABG POC ABG pH 7.519 (7.35-7.45) H 04/10/18 12:59 POC ABG pCO2 29.3 (35-45) L 04/10/18 12:59 POC ABG pO2 63 (80-105) L 04/10/18 12:59 POC ABG HCO3 23.9 04/10/18 12:59 POC ABG Total CO2 25 04/10/18 12:59 POC ABG O2 Sat 94 04/10/18 12:59 PT/INR, D-dimer PT 13.5 Sec. (12.2-14.9) 04/07/18 09:41 INR 0.98 (0.87-1.13) 04/07/18 09:41 Abnormal lab findings: Abnormal Labs 04/07/18 04/07/18 04/07/18 00:05 00:05 09:41 WBC 18.4 H 21.3 H RBC Hgb Hct MCHC RDW Plt Count Lymph % (Auto) 4.5 L [place] % (Auto) Lymph # 0.8 L [place] # 1.2 H Seg Neutrophils % 88.9 H Seg Neuts % (Manual) 85.0 H Lymphocytes % (Manual) 4.0 L Monocytes % (Manual) Nucleated RBC % Seg Neutrophils # 16.4 H Seg Neutrophils # Man 18.1 H Lymphocytes # (Manual) 0.9 L Monocytes # (Manual) 1.1 H POC ABG pH POC ABG pCO2 POC ABG pO2 Sodium Potassium Chloride Carbon Dioxide BUN Creatinine Glucose 123 H POC Glucose Calcium 8.0 L Phosphorus Magnesium 1.60 L AST 59 H ALT Alkaline Phosphatase C-Reactive Protein Total Protein Albumin 2.9 L Urine WBC (Auto) 04/07/18 04/08/18 04/08/18 09:41 00:20 10:25 WBC 19.2 H RBC Hgb Hct MCHC RDW Plt Count Lymph % (Auto) 5.4 L [place] % (Auto) Lymph # 1.0 L [place] # 1.1 H Seg Neutrophils % 88.9 H Seg Neuts % (Manual) Lymphocytes % (Manual) Monocytes % (Manual) Nucleated RBC % Seg Neutrophils # 17.1 H Seg Neutrophils # Man Lymphocytes # (Manual) Monocytes # (Manual) POC ABG pH POC ABG pCO2 POC ABG pO2 Sodium Potassium 3.3 L Chloride 95.1 L Carbon Dioxide 21 L BUN Creatinine Glucose 113 H POC Glucose Calcium Phosphorus Magnesium AST ALT Alkaline Phosphatase C-Reactive Protein Total Protein Albumin 3.6 L Urine WBC (Auto) 45.0 H 04/08/18 04/08/18 04/08/18 10:25 13:33 23:53 WBC 12.8 H RBC Hgb Hct MCHC RDW Plt Count Lymph % (Auto) [place] % (Auto) Lymph # [place] # Seg Neutrophils % Seg Neuts % (Manual) 97.0 H Lymphocytes % (Manual) 2.0 L Monocytes % (Manual) Nucleated RBC % Seg Neutrophils # Seg Neutrophils # Man 12.4 H Lymphocytes # (Manual) 0.3 L Monocytes # (Manual) POC ABG pH POC ABG pCO2 POC ABG pO2 Sodium Potassium 3.5 L Chloride Carbon Dioxide BUN Creatinine Glucose 123 H POC Glucose Calcium 7.9 L Phosphorus Magnesium AST 53 H ALT Alkaline Phosphatase C-Reactive Protein 52.00 H Total Protein 6.1 L Albumin 2.7 L Urine WBC (Auto) 04/09/18 04/09/18 04/09/18 04:20 04:20 13:38 WBC 16.2 H RBC Hgb Hct MCHC RDW Plt Count Lymph % (Auto) [place] % (Auto) Lymph # [place] # Seg Neutrophils % Seg Neuts % (Manual) 89.0 H Lymphocytes % (Manual) 4.0 L Monocytes % (Manual) Nucleated RBC % Seg Neutrophils # Seg Neutrophils # Man 14.4 H Lymphocytes # (Manual) 0.6 L Monocytes # (Manual) POC ABG pH 7.494 H POC ABG pCO2 31.6 L POC ABG pO2 68 L Sodium Potassium 3.5 L Chloride Carbon Dioxide BUN Creatinine 0.6 L Glucose 117 H POC Glucose Calcium 7.9 L Phosphorus 1.50 L D Magnesium AST ALT Alkaline Phosphatase C-Reactive Protein Total Protein 5.6 L Albumin 2.9 L Urine WBC (Auto) 04/09/18 04/09/18 04/09/18 18:25 21:45 21:45 WBC 21.3 H RBC 3.62 L Hgb Hct MCHC 35 H RDW Plt Count Lymph % (Auto) [place] % (Auto) Lymph # [place] # Seg Neutrophils % Seg Neuts % (Manual) 90.0 H Lymphocytes % (Manual) 6.0 L Monocytes % (Manual) Nucleated RBC % 1.0 H Seg Neutrophils # Seg Neutrophils # Man 19.2 H Lymphocytes # (Manual) Monocytes # (Manual) 0.9 H POC ABG pH POC ABG pCO2 POC ABG pO2 Sodium Potassium Chloride Carbon Dioxide BUN 5 L Creatinine 0.5 L Glucose 134 H POC Glucose 155 H Calcium 7.9 L Phosphorus 2.20 L D Magnesium AST ALT Alkaline Phosphatase C-Reactive Protein Total Protein Albumin Urine WBC (Auto) 04/09/18 04/10/18 04/10/18 23:38 04:07 04:07 WBC 20.2 H RBC 3.38 L Hgb 9.4 L Hct 28.9 L MCHC RDW Plt Count Lymph % (Auto) [place] % (Auto) Lymph # [place] # Seg Neutrophils % Seg Neuts % (Manual) Lymphocytes % (Manual) 6.0 L Monocytes % (Manual) Nucleated RBC % Seg Neutrophils # Seg Neutrophils # Man 10.7 H Lymphocytes # (Manual) Monocytes # (Manual) POC ABG pH POC ABG pCO2 POC ABG pO2 Sodium Potassium Chloride Carbon Dioxide BUN 6 L Creatinine 0.6 L Glucose 176 H POC Glucose 160 H Calcium 7.7 L Phosphorus Magnesium AST ALT Alkaline Phosphatase C-Reactive Protein Total Protein Albumin Urine WBC (Auto) 04/10/18 04/10/18 04/10/18 05:29 11:55 12:59 WBC RBC Hgb Hct MCHC RDW Plt Count Lymph % (Auto) [place] % (Auto) Lymph # [place] # Seg Neutrophils % Seg Neuts % (Manual) Lymphocytes % (Manual) Monocytes % (Manual) Nucleated RBC % Seg Neutrophils # Seg Neutrophils # Man Lymphocytes # (Manual) Monocytes # (Manual) POC ABG pH 7.519 H POC ABG pCO2 29.3 L POC ABG pO2 63 L Sodium Potassium Chloride Carbon Dioxide BUN Creatinine Glucose POC Glucose 171 H 194 H Calcium Phosphorus Magnesium AST ALT Alkaline Phosphatase C-Reactive Protein Total Protein Albumin Urine WBC (Auto) 04/10/18 04/10/18 04/10/18 18:11 18:28 18:28 WBC 22.7 H RBC 3.62 L Hgb Hct MCHC RDW Plt Count Lymph % (Auto) [place] % (Auto) Lymph # [place] # Seg Neutrophils % Seg Neuts % (Manual) 84.0 H Lymphocytes % (Manual) 7.0 L Monocytes % (Manual) 8.0 H Nucleated RBC % Seg Neutrophils # Seg Neutrophils # Man 19.1 H Lymphocytes # (Manual) Monocytes # (Manual) 1.8 H POC ABG pH POC ABG pCO2 POC ABG pO2 Sodium Potassium Chloride Carbon Dioxide BUN Creatinine Glucose POC Glucose 118 H Calcium Phosphorus Magnesium AST ALT Alkaline Phosphatase C-Reactive Protein 45.20 H Total Protein Albumin Urine WBC (Auto) 04/10/18 04/10/18 04/11/18 18:28 23:45 03:35 WBC 20.9 H RBC 3.54 L Hgb 10.0 L Hct MCHC RDW Plt Count Lymph % (Auto) [place] % (Auto) Lymph # [place] # Seg Neutrophils % Seg Neuts % (Manual) 80.0 H Lymphocytes % (Manual) 6.0 L Monocytes % (Manual) Nucleated RBC % Seg Neutrophils # Seg Neutrophils # Man 16.7 H Lymphocytes # (Manual) Monocytes # (Manual) POC ABG pH POC ABG pCO2 POC ABG pO2 Sodium Potassium 3.5 L Chloride Carbon Dioxide BUN 5 L Creatinine 0.5 L Glucose 108 H POC Glucose 149 H Calcium 8.3 L Phosphorus Magnesium AST ALT Alkaline Phosphatase C-Reactive Protein Total Protein Albumin Urine WBC (Auto) 04/11/18 04/11/18 04/11/18 03:35 06:17 11:29 WBC RBC Hgb Hct MCHC RDW Plt Count Lymph % (Auto) [place] % (Auto) Lymph # [place] # Seg Neutrophils % Seg Neuts % (Manual) Lymphocytes % (Manual) Monocytes % (Manual) Nucleated RBC % Seg Neutrophils # Seg Neutrophils # Man Lymphocytes # (Manual) Monocytes # (Manual) POC ABG pH POC ABG pCO2 POC ABG pO2 Sodium Potassium Chloride Carbon Dioxide BUN Creatinine 0.5 L Glucose 143 H POC Glucose 155 H 158 H Calcium 8.2 L Phosphorus Magnesium AST ALT Alkaline Phosphatase C-Reactive Protein Total Protein 6.0 L Albumin 2.2 L Urine WBC (Auto) 04/11/18 04/11/18 04/12/18 18:13 23:51 05:29 WBC RBC Hgb Hct MCHC RDW Plt Count Lymph % (Auto) [place] % (Auto) Lymph # [place] # Seg Neutrophils % Seg Neuts % (Manual) Lymphocytes % (Manual) Monocytes % (Manual) Nucleated RBC % Seg Neutrophils # Seg Neutrophils # Man Lymphocytes # (Manual) Monocytes # (Manual) POC ABG pH POC ABG pCO2 POC ABG pO2 Sodium Potassium Chloride Carbon Dioxide BUN Creatinine Glucose POC Glucose 135 H 143 H 150 H Calcium Phosphorus Magnesium AST ALT Alkaline Phosphatase C-Reactive Protein Total Protein Albumin Urine WBC (Auto) 04/12/18 04/12/18 04/13/18 05:40 05:40 00:32 WBC 18.0 H RBC 3.34 L Hgb 9.5 L Hct 28.9 L MCHC RDW Plt Count Lymph % (Auto) 7.4 L [place] % (Auto) 10.8 H Lymph # [place] # 1.9 H Seg Neutrophils % 81.1 H Seg Neuts % (Manual) Lymphocytes % (Manual) Monocytes % (Manual) Nucleated RBC % Seg Neutrophils # 14.6 H Seg Neutrophils # Man Lymphocytes # (Manual) Monocytes # (Manual) POC ABG pH POC ABG pCO2 POC ABG pO2 Sodium Potassium Chloride 107.7 H Carbon Dioxide 21 L BUN Creatinine 0.6 L Glucose 140 H POC Glucose 144 H Calcium Phosphorus Magnesium AST ALT Alkaline Phosphatase C-Reactive Protein Total Protein Albumin Urine WBC (Auto) 04/13/18 04/13/18 04/13/18 04:20 04:20 04:20 WBC 18.1 H RBC 3.52 L Hgb 9.8 L Hct 30.1 L MCHC RDW Plt Count Lymph % (Auto) 11.1 L [place] % (Auto) 13.6 H Lymph # [place] # 2.5 H Seg Neutrophils % 74.4 H Seg Neuts % (Manual) Lymphocytes % (Manual) Monocytes % (Manual) Nucleated RBC % Seg Neutrophils # 13.4 H Seg Neutrophils # Man Lymphocytes # (Manual) Monocytes # (Manual) POC ABG pH POC ABG pCO2 POC ABG pO2 Sodium Potassium Chloride Carbon Dioxide BUN Creatinine 0.5 L Glucose 142 H POC Glucose Calcium Phosphorus Magnesium AST ALT Alkaline Phosphatase C-Reactive Protein 29.60 H Total Protein Albumin Urine WBC (Auto) 04/13/18 04/13/18 04/14/18 05:35 23:50 04:00 WBC 22.1 H RBC 3.59 L Hgb 9.9 L Hct MCHC RDW Plt Count Lymph % (Auto) [place] % (Auto) Lymph # [place] # Seg Neutrophils % Seg Neuts % (Manual) 73.0 H Lymphocytes % (Manual) 9.0 L Monocytes % (Manual) 11.0 H Nucleated RBC % Seg Neutrophils # Seg Neutrophils # Man 16.1 H Lymphocytes # (Manual) Monocytes # (Manual) 2.4 H POC ABG pH POC ABG pCO2 POC ABG pO2 Sodium Potassium Chloride Carbon Dioxide BUN Creatinine Glucose POC Glucose 142 H 160 H Calcium Phosphorus Magnesium AST ALT Alkaline Phosphatase C-Reactive Protein Total Protein Albumin Urine WBC (Auto) 04/14/18 04/14/18 04/14/18 04:00 05:29 12:47 WBC RBC Hgb Hct MCHC RDW Plt Count Lymph % (Auto) [place] % (Auto) Lymph # [place] # Seg Neutrophils % Seg Neuts % (Manual) Lymphocytes % (Manual) Monocytes % (Manual) Nucleated RBC % Seg Neutrophils # Seg Neutrophils # Man Lymphocytes # (Manual) Monocytes # (Manual) POC ABG pH POC ABG pCO2 POC ABG pO2 Sodium Potassium Chloride Carbon Dioxide BUN Creatinine Glucose 155 H POC Glucose 133 H 183 H Calcium Phosphorus Magnesium 2.50 H AST ALT Alkaline Phosphatase C-Reactive Protein Total Protein Albumin Urine WBC (Auto) 04/14/18 04/14/18 04/15/18 16:01 23:42 04:42 WBC RBC Hgb Hct MCHC RDW Plt Count Lymph % (Auto) [place] % (Auto) Lymph # [place] # Seg Neutrophils % Seg Neuts % (Manual) Lymphocytes % (Manual) Monocytes % (Manual) Nucleated RBC % Seg Neutrophils # Seg Neutrophils # Man Lymphocytes # (Manual) Monocytes # (Manual) POC ABG pH POC ABG pCO2 POC ABG pO2 Sodium Potassium 3.4 L Chloride 107.5 H Carbon Dioxide 21 L BUN Creatinine Glucose 165 H POC Glucose 153 H 172 H Calcium 8.0 L Phosphorus Magnesium 2.40 H AST ALT Alkaline Phosphatase C-Reactive Protein Total Protein Albumin Urine WBC (Auto) 04/15/18 04/15/18 04/15/18 04:42 05:49 11:17 WBC 21.5 H RBC 3.37 L Hgb 9.4 L Hct 28.9 L MCHC RDW Plt Count 490 H Lymph % (Auto) [place] % (Auto) Lymph # [place] # Seg Neutrophils % Seg Neuts % (Manual) 77.0 H Lymphocytes % (Manual) 7.0 L Monocytes % (Manual) 10.0 H Nucleated RBC % Seg Neutrophils # Seg Neutrophils # Man 16.6 H Lymphocytes # (Manual) Monocytes # (Manual) 2.2 H POC ABG pH POC ABG pCO2 POC ABG pO2 Sodium Potassium Chloride Carbon Dioxide BUN Creatinine Glucose POC Glucose 147 H 119 H Calcium Phosphorus Magnesium AST ALT Alkaline Phosphatase C-Reactive Protein Total Protein Albumin Urine WBC (Auto) 04/15/18 04/16/18 04/16/18 17:35 00:26 06:12 WBC 20.7 H RBC 3.25 L Hgb 9.0 L Hct MCHC 29 L RDW 16.7 H Plt Count 498 H Lymph % (Auto) [place] % (Auto) Lymph # [place] # Seg Neutrophils % Seg Neuts % (Manual) 88.0 H Lymphocytes % (Manual) 5.0 L Monocytes % (Manual) Nucleated RBC % Seg Neutrophils # Seg Neutrophils # Man 18.2 H Lymphocytes # (Manual) 1.0 L Monocytes # (Manual) POC ABG pH POC ABG pCO2 POC ABG pO2 Sodium Potassium Chloride Carbon Dioxide BUN Creatinine Glucose POC Glucose 169 H 176 H Calcium Phosphorus Magnesium AST ALT Alkaline Phosphatase C-Reactive Protein Total Protein Albumin Urine WBC (Auto) 04/16/18 04/16/18 04/16/18 06:19 06:21 06:24 WBC RBC Hgb Hct MCHC RDW Plt Count Lymph % (Auto) [place] % (Auto) Lymph # [place] # Seg Neutrophils % Seg Neuts % (Manual) Lymphocytes % (Manual) Monocytes % (Manual) Nucleated RBC % Seg Neutrophils # Seg Neutrophils # Man Lymphocytes # (Manual) Monocytes # (Manual) POC ABG pH POC ABG pCO2 POC ABG pO2 Sodium Potassium Chloride Carbon Dioxide BUN Creatinine Glucose POC Glucose > 500 H 493 H 173 H Calcium Phosphorus Magnesium AST ALT Alkaline Phosphatase C-Reactive Protein Total Protein Albumin Urine WBC (Auto) 04/16/18 04/16/18 04/16/18 08:52 14:05 17:17 WBC RBC Hgb Hct MCHC RDW Plt Count Lymph % (Auto) [place] % (Auto) Lymph # [place] # Seg Neutrophils % Seg Neuts % (Manual) Lymphocytes % (Manual) Monocytes % (Manual) Nucleated RBC % Seg Neutrophils # Seg Neutrophils # Man Lymphocytes # (Manual) Monocytes # (Manual) POC ABG pH POC ABG pCO2 POC ABG pO2 Sodium Potassium 3.4 L Chloride Carbon Dioxide BUN Creatinine 0.5 L Glucose 166 H POC Glucose 196 H 189 H Calcium 8.2 L Phosphorus Magnesium AST ALT Alkaline Phosphatase C-Reactive Protein Total Protein Albumin Urine WBC (Auto) 04/17/18 04/17/18 04/17/18 00:06 04:50 04:50 WBC 16.0 H RBC 3.12 L Hgb 8.7 L Hct 29.0 L MCHC RDW 16.2 H Plt Count 455 H Lymph % (Auto) 9.4 L [place] % (Auto) 7.7 H Lymph # [place] # 1.2 H Seg Neutrophils % 81.9 H Seg Neuts % (Manual) Lymphocytes % (Manual) Monocytes % (Manual) Nucleated RBC % Seg Neutrophils # 13.1 H Seg Neutrophils # Man Lymphocytes # (Manual) Monocytes # (Manual) POC ABG pH POC ABG pCO2 POC ABG pO2 Sodium 136 L Potassium Chloride 96.9 L Carbon Dioxide BUN Creatinine Glucose POC Glucose 190 H Calcium 7.6 L Phosphorus Magnesium AST ALT Alkaline Phosphatase C-Reactive Protein Total Protein Albumin Urine WBC (Auto) 04/17/18 04/17/18 04/17/18 05:38 07:17 11:50 WBC RBC Hgb Hct MCHC RDW Plt Count Lymph % (Auto) [place] % (Auto) Lymph # [place] # Seg Neutrophils % Seg Neuts % (Manual) Lymphocytes % (Manual) Monocytes % (Manual) Nucleated RBC % Seg Neutrophils # Seg Neutrophils # Man Lymphocytes # (Manual) Monocytes # (Manual) POC ABG pH POC ABG pCO2 POC ABG pO2 Sodium Potassium 3.4 L Chloride Carbon Dioxide BUN Creatinine 0.6 L Glucose 167 H POC Glucose 190 H 163 H Calcium 8.0 L Phosphorus Magnesium AST ALT Alkaline Phosphatase C-Reactive Protein Total Protein Albumin Urine WBC (Auto) 04/17/18 04/17/18 04/18/18 18:37 23:53 05:59 WBC RBC Hgb Hct MCHC RDW Plt Count Lymph % (Auto) [place] % (Auto) Lymph # [place] # Seg Neutrophils % Seg Neuts % (Manual) Lymphocytes % (Manual) Monocytes % (Manual) Nucleated RBC % Seg Neutrophils # Seg Neutrophils # Man Lymphocytes # (Manual) Monocytes # (Manual) POC ABG pH POC ABG pCO2 POC ABG pO2 Sodium Potassium Chloride Carbon Dioxide BUN Creatinine Glucose POC Glucose 167 H 142 H 144 H Calcium Phosphorus Magnesium AST ALT Alkaline Phosphatase C-Reactive Protein Total Protein Albumin Urine WBC (Auto) 04/18/18 06:30 WBC RBC Hgb Hct MCHC RDW Plt Count Lymph % (Auto) [place] % (Auto) Lymph # [place] # Seg Neutrophils % Seg Neuts % (Manual) Lymphocytes % (Manual) Monocytes % (Manual) Nucleated RBC % Seg Neutrophils # Seg Neutrophils # Man Lymphocytes # (Manual) Monocytes # (Manual) POC ABG pH POC ABG pCO2 POC ABG pO2 Sodium Potassium Chloride 97.1 L Carbon Dioxide BUN Creatinine Glucose POC Glucose Calcium 7.3 L Phosphorus Magnesium AST ALT 89 H Alkaline Phosphatase 138 H C-Reactive Protein Total Protein 5.5 L Albumin 2.1 L Urine WBC (Auto) Chest x-ray: image reviewed (Mild alveolar edema, effusion much improved) Allied health notes reviewed: RT (BIPAP qhs, currently on 2L NC)
[2018-04-18] MEDS ORDERED: LASIX IV NR (09:18)
[2018-04-18 10:00] LABS: Blood Urea Nitrogen TNR mg/dL (7-17)
[2018-04-18 10:01] LABS: Alanine Aminotransferase TNR units/L (7-56); BUN/Creatinine Ratio TNR; Calcium TNR mg/dL (8.4-10.2)
[2018-04-18 10:02] LABS: Albumin TNR g/dL (3.9-5); Hemolysis Index TNR
[2018-04-18 10:30] LABS: BUN/Creatinine Ratio 32; Blood Urea Nitrogen 16 mg/dL (7-17); Calcium 8.2 mg/dL (8.4-10.2); Hemolysis Index 7
[2018-04-18] MEDS: PROTONIX IV SCH (11:05)
--- NOTE | 2018-04-18 11:20 | Progress Note ---
Assessment and Plan Assessment and plan: Sepsis. She is on Cefepime. Metronidazole ID Physician following Leukocytosis due to sepsis Gastric perforation s/p exploratory lap, repair of perforation on 04/07/18. Surg is attending, managing Pneumoperitoneum due to gastric perforation Acute respiratory failure. On supplemental Oxygen by [place] Pulmonology on case Bilateral pneumonia. On Cefepime Hypertension. Monitor BP Hypokalemia, resolved Obstructive seep apnea Full code status History Interval history: Feels better, No more fever x 3 days Hospitalist Physical - Physical exam Narrative exam: Constitutional: Not in acute distress, obese, HEENT: Atraumatic, normocephalic Neck: supple, no lymphadenopathy, Lungs: Clear to auscultation, bilaterally CVS: S1-S2 regular, no murmurs, rubs or gallop, Abdomen: soft, mild tender, multiple drains, dressing over abdomen Musculoskeletal: No edema, clubbing, or cyanosis STUDIO ASSOCIATE: awake,alert,oriented x3 - Constitutional Vitals: Temp Pulse Resp BP Pulse Ox 99.2 F 95 H 19 181/89 95 04/18/18 08:00 04/18/18 11:08 04/18/18 11:06 04/18/18 11:08 04/18/18 07:22 General appearance: Present: no acute distress, well-nourished Results - Labs CBC & Chem 7: 04/19/18 08:00 04/19/18 08:00 Labs: Laboratory Last Values WBC 16.0 K/mm3 (4.5-11.0) H 04/17/18 04:50 RBC 3.12 M/mm3 (3.65-5.03) L 04/17/18 04:50 Hgb 8.7 gm/dl (10.1-14.3) L 04/17/18 04:50 Hct 29.0 % (30.3-42.9) L 04/17/18 04:50 MCV 93 fl (79-97) 04/17/18 04:50 MCH 28 pg (28-32) 04/17/18 04:50 MCHC 30 % (30-34) 04/17/18 04:50 RDW 16.2 % (13.2-15.2) H 04/17/18 04:50 Plt Count 455 K/mm3 (140-440) H 04/17/18 04:50 Lymph % (Auto) 9.4 % (13.4-35.0) L 04/17/18 04:50 [place] % (Auto) 7.7 % (0.0-7.3) H 04/17/18 04:50 Eos % (Auto) 0.6 % (0.0-4.3) 04/17/18 04:50 Baso % (Auto) 0.4 % (0.0-1.8) 04/17/18 04:50 Lymph # 1.5 K/mm3 (1.2-5.4) 04/17/18 04:50 [place] # 1.2 K/mm3 (0.0-0.8) H 04/17/18 04:50 Eos # 0.1 K/mm3 (0.0-0.4) 04/17/18 04:50 Baso # 0.1 K/mm3 (0.0-0.1) 04/17/18 04:50 Add Manual Diff Complete 04/16/18 06:12 Total Counted 100 04/16/18 06:12 Seg Neutrophils % 81.9 % (40.0-70.0) H 04/17/18 04:50 Seg Neuts % (Manual) 88.0 % (40.0-70.0) H 04/16/18 06:12 Band Neutrophils % 1.0 % 04/16/18 06:12 Lymphocytes % (Manual) 5.0 % (13.4-35.0) L 04/16/18 06:12 Reactive Lymphs % (Man) 0 % 04/16/18 06:12 Monocytes % (Manual) 2.0 % (0.0-7.3) 04/16/18 06:12 Eosinophils % (Manual) 0 % (0.0-4.3) 04/16/18 06:12 Basophils % (Manual) 0 % (0.0-1.8) 04/16/18 06:12 Metamyelocytes % 4.0 % 04/16/18 06:12 Myelocytes % 0 % 04/16/18 06:12 Promyelocytes % 0 % 04/16/18 06:12 Blast Cells % 0 % 04/16/18 06:12 Nucleated RBC % Not Reportable 04/16/18 06:12 Seg Neutrophils # 13.1 K/mm3 (1.8-7.7) H 04/17/18 04:50 Seg Neutrophils # Man 18.2 K/mm3 (1.8-7.7) H 04/16/18 06:12 Band Neutrophils # 0.2 K/mm3 04/16/18 06:12 Lymphocytes # (Manual) 1.0 K/mm3 (1.2-5.4) L 04/16/18 06:12 Abs React Lymphs (Man) 0.0 K/mm3 04/16/18 06:12 Monocytes # (Manual) 0.4 K/mm3 (0.0-0.8) 04/16/18 06:12 Eosinophils # (Manual) 0.0 K/mm3 (0.0-0.4) 04/16/18 06:12 Basophils # (Manual) 0.0 K/mm3 (0.0-0.1) 04/16/18 06:12 Metamyelocytes # 0.8 K/mm3 04/16/18 06:12 Myelocytes # 0.0 K/mm3 04/16/18 06:12 Promyelocytes # 0.0 K/mm3 04/16/18 06:12 Blast Cells # 0.0 K/mm3 04/16/18 06:12 WBC Morphology Not Reportable 04/16/18 06:12 Hypersegmented Neuts Not Reportable 04/16/18 06:12 Hyposegmented Neuts Not Reportable 04/16/18 06:12 Hypogranular Neuts Not Reportable 04/16/18 06:12 Smudge Cells Not Reportable 04/16/18 06:12 Toxic Granulation Not Reportable 04/16/18 06:12 Toxic Vacuolation Not Reportable 04/16/18 06:12 Dohle Bodies Not Reportable 04/16/18 06:12 Pelger-Huet Anomaly Not Reportable 04/16/18 06:12 Narendra Rods Not Reportable 04/16/18 06:12 Platelet Estimate Cons 04/16/18 06:12 Clumped Platelets Not Reportable 04/16/18 06:12 Plt Clumps, EDTA Not Reportable 04/16/18 06:12 Large Platelets Not Reportable 04/16/18 06:12 Giant Platelets Not Reportable 04/16/18 06:12 Platelet Satelliting Not Reportable 04/16/18 06:12 Plt Morphology Comment Not Reportable 04/16/18 06:12 RBC Morphology Not Reportable 04/16/18 06:12 Dimorphic RBCs Not Reportable 04/16/18 06:12 Polychromasia Few 04/16/18 06:12 Hypochromasia Not Reportable 04/16/18 06:12 Poikilocytosis Not Reportable 04/16/18 06:12 Anisocytosis 1+ 04/16/18 06:12 Microcytosis Not Reportable 04/16/18 06:12 Macrocytosis Not Reportable 04/16/18 06:12 Spherocytes Not Reportable 04/16/18 06:12 Pappenheimer Bodies Not Reportable 04/16/18 06:12 Sickle Cells Not Reportable 04/16/18 06:12 Target Cells Not Reportable 04/16/18 06:12 Tear Drop Cells Not Reportable 04/16/18 06:12 Ovalocytes Not Reportable 04/16/18 06:12 Helmet Cells Not Reportable 04/16/18 06:12 [place] Bodies Not Reportable 04/16/18 06:12 [place] Rings Not Reportable 04/16/18 06:12 [place] Cells Not Reportable 04/16/18 06:12 Bite Cells Not Reportable 04/16/18 06:12 Crenated Cell Not Reportable 04/16/18 06:12 Elliptocytes Not Reportable 04/16/18 06:12 Acanthocytes (Spur) Not Reportable 04/16/18 06:12 Rouleaux Not Reportable 04/16/18 06:12 Hemoglobin C Crystals Not Reportable 04/16/18 06:12 Schistocytes Not Reportable 04/16/18 06:12 Malaria parasites Not Reportable 04/16/18 06:12 Giorgio Bodies Not Reportable 04/16/18 06:12 Hem Pathologist Commnt No 04/16/18 06:12 PT 13.5 Sec. (12.2-14.9) 04/07/18 09:41 INR 0.98 (0.87-1.13) 04/07/18 09:41 APTT 29.0 Sec. (24.2-36.6) 04/07/18 16:28 POC ABG pH 7.519 (7.35-7.45) H 04/10/18 12:59 POC ABG pCO2 29.3 (35-45) L 04/10/18 12:59 POC ABG pO2 63 (80-105) L 04/10/18 12:59 POC ABG HCO3 23.9 04/10/18 12:59 POC ABG Total CO2 25 04/10/18 12:59 POC ABG O2 Sat 94 04/10/18 12:59 POC ABG Base Excess 1 04/10/18 12:59 VBG pH 7.413 (7.320-7.420) 04/07/18 09:41 FiO2 28 % 04/10/18 12:59 Sodium 141 mmol/L (137-145) 04/18/18 10:05 Potassium 4.4 mmol/L (3.6-5.0) D 04/18/18 10:05 Chloride 103.4 mmol/L (98-107) 04/18/18 10:05 Carbon Dioxide 24 mmol/L (22-30) 04/18/18 10:05 Anion Gap 18 mmol/L 04/18/18 10:05 BUN 16 mg/dL (7-17) 04/18/18 10:05 Creatinine 0.5 mg/dL (0.7-1.2) L 04/18/18 10:05 Estimated GFR > 60 ml/min 04/18/18 10:05 BUN/Creatinine Ratio 32 % 04/18/18 10:05 Glucose 127 mg/dL (65-100) H 04/18/18 10:05 POC Glucose 144 (70-105) H 04/18/18 05:59 Lactic Acid 0.80 mmol/L (0.7-2.0) 04/08/18 13:33 Calcium 8.2 mg/dL (8.4-10.2) L 04/18/18 10:05 Phosphorus 3.40 mg/dL (2.5-4.5) 04/18/18 10:05 Magnesium 2.20 mg/dL (1.7-2.3) 04/18/18 10:05 Total Bilirubin TNR 04/18/18 06:30 AST TNR 04/18/18 06:30 ALT TNR 04/18/18 06:30 Alkaline Phosphatase TNR 04/18/18 06:30 Total Creatine Kinase 53 units/L (30-135) 04/09/18 21:45 CK-MB (CK-2) < 1.0 ng/mL (0.0-4.0) 04/09/18 21:45 CK-MB (CK-2) Rel Index 1.8 (0-4) 04/09/18 21:45 Troponin T < 0.010 ng/mL (0.00-0.029) 04/09/18 21:45 C-Reactive Protein 29.60 mg/dL (0.00-1.30) H 04/13/18 04:20 Total Protein TNR 04/18/18 06:30 Albumin TNR 04/18/18 06:30 Albumin/Globulin Ratio TNR 04/18/18 06:30 Triglycerides 114 mg/dL (2-149) 04/16/18 08:52 Urine Color Yellow (Yellow) 04/08/18 00:20 Urine Turbidity Hazy (Clear) 04/08/18 00:20 Urine pH 5.0 (5.0-7.0) 04/08/18 00:20 Ur Specific [place] 1.028 (1.003-1.030) 04/08/18 00:20 Urine Protein 100 mg/dl mg/dL (Negative) 04/08/18 00:20 Urine Glucose (UA) Neg mg/dL (Negative) 04/08/18 00:20 Urine Ketones 20 mg/dL (Negative) 04/08/18 00:20 Urine Blood Sm (Negative) 04/08/18 00:20 Urine Nitrite Neg (Negative) 04/08/18 00:20 Urine Bilirubin Neg (Negative) 04/08/18 00:20 Urine Urobilinogen 2.0 mg/dL (<2.0) 04/08/18 00:20 Ur Leukocyte Esterase Sm (Negative) 04/08/18 00:20 Urine WBC (Auto) 45.0 /HPF (0.0-6.0) H 04/08/18 00:20 Urine RBC (Auto) 15.0 /HPF (0.0-6.0) 04/08/18 00:20 U Epithel Cells (Auto) < 1.0 /HPF (0-13.0) 04/08/18 00:20 Urine Mucus Few /HPF 04/08/18 00:20 Vancomycin Trough 13.2 ug/mL (5.0-20.0) 04/14/18 15:51
[2018-04-18 14:44] LABS: Basophils # (Auto) 0.1 K/mm3 (0.0-0.1); Basophils % (Auto) 0.3 % (0.0-1.8); Eosinophils # (Auto) 0.2 K/mm3 (0.0-0.4); Hemoglobin 8.9 gm/dl (10.1-14.3); Lymphocytes # (Auto) 1.7 K/mm3 (1.2-5.4); Lymphocytes % (Auto) 9.2 % (13.4-35.0); Mean Corpuscular HGB Conc 31 % (30-34); Mean Corpuscular Hemoglobin 30 pg (28-32); Mean Corpuscular Volume 98 fl (79-97); Monocytes # (Auto) 1.2 K/mm3 (0.0-0.8); Monocytes % (Auto) 6.8 % (0.0-7.3); Platelet Count 427 K/mm3 (140-440); Red Blood Count 2.95 M/mm3 (3.65-5.03); Red Cell Distribution Width 16.9 % (13.2-15.2)
--- NOTE | 2018-04-18 16:33 | Progress Note ---
Assessment and Plan 58 y.o. f s/p lap sleeve gastrectomy with hiatal hernia repair and partial fundoplication 03/30, presents to ER with abdominal pain, now s/p dx lap, abdominal washout, repair of gastric perforation and placement of drains , s/p abdominal pigtail placement x 2 Neuro: dilualdid, morphine prn. toradol for pain control. Ativan prn for agitation for hx of anxiety baseline Cardio: tachycardia-resolved hx of HTN: enalaril IV, metop rpn Pulm: pulm toilet per ICU Left pleural effusion: if pulm function continues to improve, she may not require the drainage Appreciate pulmonary consult -IS CXr 04/09: left effusion, cardiomeg. no pulm congestion CT chest: no PE GI: npo, NG to low wall intermit. sunction. No manipulation of NG. NO ice chips no meds. monitor drain output -CT abd/pelvis: fluid collection anterior to liver, leak persistent. s/p IR drain x 2. Nutrition: PIcc line for tpn. -monitor lytes ID: gastric perf. vanco, flagyl cefipime -umbilical incision: change packing daily peritoneal cultures: serratia Pneumonia: vanco . Dosing per pharm. -ID consult appreciated Fever continues- off/on. f/u cultures. leukocytosis slight increase to 18 If fevers continues, f/u CT abd. pelvis --> collections /Lytes: f/u am labs. monitor urine out. DVT proph: lovenox scds GI proph: protonix Out of bed to chair Dispo:likely downgrade in the next 1-2days Subjective Narrative: Pt spitting up white foam but decreased compared to yesterday. She denies fever or chills. She was up to chair. Denies vomiting. +nausea. Objective Vital Signs - 12hr 04/18/18 04/18/18 04/18/18 04:50 05:00 05:03 Temperature 97.6 F Pulse Rate 96 H 91 H 91 H Pulse Rate [ Anterior Bilateral] Pulse Rate [ 100 H From Monitor] Respiratory 22 24 Rate Respiratory Rate [Abdomen] Respiratory Rate [Anterior Bilateral] Blood Pressure 149/62 139/60 O2 Sat by Pulse 99 97 Oximetry 04/18/18 04/18/18 04/18/18 05:04 05:30 05:40 Temperature Pulse Rate 99 H 87 Pulse Rate [ Anterior Bilateral] Pulse Rate [ From Monitor] Respiratory 22 21 Rate Respiratory Rate [Abdomen] Respiratory Rate [Anterior Bilateral] Blood Pressure 139/60 149/62 O2 Sat by Pulse 99 Oximetry 04/18/18 04/18/18 04/18/18 05:45 06:00 06:16 Temperature Pulse Rate 88 Pulse Rate [ Anterior Bilateral] Pulse Rate [ 100 H From Monitor] Respiratory 21 17 22 Rate Respiratory Rate [Abdomen] Respiratory Rate [Anterior Bilateral] Blood Pressure 165/78 O2 Sat by Pulse 96 99 Oximetry 04/18/18 04/18/18 04/18/18 06:31 07:00 07:22 Temperature Pulse Rate 93 H 93 H Pulse Rate [ 94 H Anterior Bilateral] Pulse Rate [ From Monitor] Respiratory 22 25 H Rate Respiratory Rate [Abdomen] Respiratory 18 Rate [Anterior Bilateral] Blood Pressure 165/78 178/82 O2 Sat by Pulse 95 92 95 Oximetry 04/18/18 04/18/18 04/18/18 07:30 07:47 08:00 Temperature 99.2 F Pulse Rate 89 93 H Pulse Rate [ 95 H Anterior Bilateral] Pulse Rate [ 95 H From Monitor] Respiratory 22 22 Rate Respiratory Rate [Abdomen] Respiratory 23 Rate [Anterior Bilateral] Blood Pressure 180/79 158/75 O2 Sat by Pulse 100 94 Oximetry 04/18/18 04/18/18 04/18/18 08:31 09:00 09:30 Temperature Pulse Rate 96 H 93 H 98 H Pulse Rate [ Anterior Bilateral] Pulse Rate [ From Monitor] Respiratory 24 22 24 Rate Respiratory Rate [Abdomen] Respiratory Rate [Anterior Bilateral] Blood Pressure 180/79 146/78 146/78 O2 Sat by Pulse 97 93 97 Oximetry 04/18/18 04/18/18 04/18/18 10:00 10:31 11:00 Temperature Pulse Rate 94 H 96 H 95 H Pulse Rate [ Anterior Bilateral] Pulse Rate [ From Monitor] Respiratory 24 25 H 27 H Rate Respiratory 21 Rate [Abdomen] Respiratory Rate [Anterior Bilateral] Blood Pressure 167/72 167/72 181/89 O2 Sat by Pulse 96 97 95 Oximetry 04/18/18 04/18/18 04/18/18 11:06 11:08 11:31 Temperature Pulse Rate 95 H 108 H Pulse Rate [ Anterior Bilateral] Pulse Rate [ From Monitor] Respiratory 19 29 H Rate Respiratory Rate [Abdomen] Respiratory Rate [Anterior Bilateral] Blood Pressure 181/89 167/84 O2 Sat by Pulse 98 Oximetry 04/18/18 04/18/18 04/18/18 11:36 12:06 16:26 Temperature Pulse Rate 105 H Pulse Rate [ Anterior Bilateral] Pulse Rate [ From Monitor] Respiratory 22 27 H Rate Respiratory Rate [Abdomen] Respiratory Rate [Anterior Bilateral] Blood Pressure 157/79 O2 Sat by Pulse Oximetry - General physical appearance well developed, well nourished, no distress - Respiratory normal expansion, normal respiratory effort, clear to auscultation - Abdomen soft, other (soft, tender at LUQ pigtail tail. no rebound no guarding. umbilical packing removed- serous fluid. repacked and covered. KRISTI on right: serosangin. Mid upper pigtail: serous/light green. minimal. LUQ pigail- 5-10cc cloudy white fluid. ) - Integumentary no rash, no growths - Neurologic normal coordination, normal sensation - Psychiatric oriented to time, oriented to person, oriented to place - Labs 04/19/18 08:00 04/19/18 08:00 Diabetes panel 04/18/18 04/18/18 Range/Units 06:30 10:05 Sodium TNR 141 Potassium TNR 4.4 D Chloride TNR 103.4 Carbon Dioxide TNR 24 BUN TNR 16 Creatinine TNR 0.5 L Glucose TNR 127 H Calcium TNR 8.2 L AST TNR ALT TNR Alkaline Phosphatase TNR Total Protein TNR Albumin TNR Calcium panel 04/18/18 04/18/18 Range/Units 06:30 10:05 Calcium TNR 8.2 L Phosphorus TNR 3.40 Albumin TNR Pituitary panel 04/18/18 04/18/18 Range/Units 06:30 10:05 Sodium TNR 141 Potassium TNR 4.4 D Chloride TNR 103.4 Carbon Dioxide TNR 24 BUN TNR 16 Creatinine TNR 0.5 L Glucose TNR 127 H Calcium TNR 8.2 L Adrenal panel 04/18/18 04/18/18 Range/Units 06:30 10:05 Sodium TNR 141 Potassium TNR 4.4 D Chloride TNR 103.4 Carbon Dioxide TNR 24 BUN TNR 16 Creatinine TNR 0.5 L Glucose TNR 127 H Calcium TNR 8.2 L Total Bilirubin TNR AST TNR ALT TNR Alkaline Phosphatase TNR Total Protein TNR Albumin TNR
[2018-04-18] MEDS: KCL 20MEQ/100ML 20 MEQ/100 ML BAG IV SCH (19:50)
[2018-04-18] MEDS: APRESOLINE IV PRN (19:54)
[2018-04-18] MEDS ORDERED: TPN ADULT 1,800 ML IV SCH (20:00)
[2018-04-18] MEDS: LOVENOX SUB-Q SCH (21:17)
[2018-04-19] MEDS: DILAUDID IV PRN ×4 (02:05→18:14)
--- NOTE | 2018-04-19 02:51 | XRay Report ---
FINAL REPORT PROCEDURE: XR CHEST 1V AP TECHNIQUE: Chest radiograph anteroposterior view. CPT 74124 HISTORY: follow up respiratory failure COMPARISON: 04/18/2018 FINDINGS: Heart: Normal. Mediastinum/Vessels: There is a battery identified in the left chest wall. Lungs/Pleural space: Mild vascular congestion is noted in slightly improved. Bony thorax: No acute osseous abnormality. Life support devices: The nasogastric tube ends below the hemidiaphragms. A right PICC catheter ends in the SVC. IMPRESSION: Vascular congestion is slightly improved. The nasogastric tube and right PICC catheter are properly positioned..
[2018-04-19] MEDS: LOPRESSOR IV SCH ×3 (05:17→18:14)
[2018-04-19] MEDS: MAXIPIME/NS 2 GM/100 ML 2 GM/100 ML BAG IV SCH ×3 (05:17→22:54)
[2018-04-19] MEDS: VASOTEC IV SCH ×2 (05:22→11:20)
[2018-04-19] MEDS: FLAGYL 500 MG/100 ML 500 MG/100 ML BAG IV SCH ×3 (05:53→21:23)
[2018-04-19] MEDS: APRESOLINE IV PRN (06:39)
[2018-04-19] MEDS: VANCOMYCIN 1,750 MG in NACL 0.9% 500 ML 500 ML IV SCH (06:39)
[2018-04-19] MEDS: BROVANA NEBU IH SCH ×2 (07:42→20:03)
[2018-04-19] MEDS: PULMICORT IH SCH ×2 (07:42→20:03)
[2018-04-19 08:24] LABS: Hematocrit 31.8 % (30.3-42.9); Hemoglobin 10.3 gm/dl (10.1-14.3); Mean Corpuscular HGB Conc 32 % (30-34); Mean Corpuscular Hemoglobin 28 pg (28-32); Mean Corpuscular Volume 87 fl (79-97); Platelet Count 531 K/mm3 (140-440); Red Blood Count 3.66 M/mm3 (3.65-5.03); Red Cell Distribution Width 14.8 % (13.2-15.2)
--- NOTE | 2018-04-19 08:37 | Progress Note ---
Assessment and Plan Assessment: 1) Sepsis:better. Etiology most likely perf / intra-abdominal collection 2) Gastric perf and intra-abdominal fluid collection -S/P OR for ex lap, abdominal washout, repair of gastric perforation and placement of drains on 04/08/18 -04/07 peritoneal fluid + Serratia x 2 -Repeat CTA 04/09 showed no PE however increase in left pleural effusion with dense consolidation consistent with atelectasis and a large fluid collection 14 x 4.7 cm in the left lobe of the fever with air bubbles. -CRP=52 --> 45 -Repeat CT showed large left pleural effusion, smaller left hep lobe collection and large splenic collection 4.2x6.1 cm -S/P further drain placement 04/16 cx no growth so far 3) S/P lap sleeve gastrectomy with hiatal hernia repair and partial fundoplication 03/30/18 4) Presumed pnemonia vs. atelectasis Plan: -f/u drainage cx 04/16 -continue cefepime and flagyl D6/10 (s/p zosyn 7 days) -stop vanco D10/10 -monitor fever and leukocytosis -c/o chest tightness will discuss with Dr Wynn Thank you for your consultation, will follow up with you. Katerin Cross MD Infectious Diseases Specialist [facility] M [phone] O [phone] Subjective Date of service: 04/19/18 Principal diagnosis: Sepsis Syndrome; Acute Hypoxemic Resp Failure; Acute Encephalopathy Interval history: feels better, alert, talking, no fever, C/o chest tightness and SOB Microbiology: Blood cultures: 04/07 neg 04/10 ngtd Peritoneal cultures: 04/07 Serratia x 2 04/10 ngtd 04/16 ngtd Current Antimicrobials: cefepime and flagyl 04/14 vanco 04/10 Previous Antimicrobials: Fluconazole Zosyn 04/08-04/14 Objective - Exam Narrative Exam: General appearance: Alert in mild shortness of breath NC O2 Eyes: anicteric sclerae, moist conjunctivae; no lid-lag; PERRLA HENT: Atraumatic; oropharynx NGT Neck: Trachea midline; supple, no thyromegaly or lymphadenopathy Lungs: CTA CV: RRR Abdomen: Obese, Soft, midline surgical wound covered with dressings drain in place KRISTI R minimal purulent output KRISTI L minimal serosang output Extremities: No peripheral edema or extremity lymphadenopathy Skin: Normal temperature, turgor and texture; no rash, ulcers or subcutaneous nodules Psych: Appropriate affect, alert and oriented to person, place and time. Neuro: alert and oriented x 3. Moving all extermities Lines: right PICC, staton - Constitutional Vitals: Vital Signs Temp Pulse Resp BP Pulse Ox 98.4 F 106 H 24 140/65 96 04/19/18 03:45 04/19/18 08:00 04/19/18 08:00 04/19/18 08:00 04/19/18 08:00 Temperature -Last 24 Hours Temperature 98.4 F Temperature 98.9 F Temperature 99.4 F Temperature 98.5 F Temperature 99.0 F - Labs CBC & Chem 7: 04/19/18 08:00 04/18/18 10:05 Labs: Abnormal lab results 04/18/18 04/18/18 04/18/18 Range/Units 10:05 12:25 14:54 WBC 18.2 H (4.5-11.0) K/mm3 RBC 2.95 L (3.65-5.03) M/mm3 Hgb 8.9 L (10.1-14.3) gm/dl Hct 29.0 L (30.3-42.9) % MCV 98 H (79-97) fl RDW 16.9 H (13.2-15.2) % Plt Count (140-440) K/mm3 Lymph % (Auto) 9.2 L (13.4-35.0) % [place] # 1.2 H (0.0-0.8) K/mm3 Seg Neutrophils % 82.7 H (40.0-70.0) % Seg Neutrophils # 15.1 H (1.8-7.7) K/mm3 Creatinine 0.5 L (0.7-1.2) mg/dL Glucose 127 H (65-100) mg/dL POC Glucose 171 H (70-105) Calcium 8.2 L (8.4-10.2) mg/dL 04/18/18 04/19/18 04/19/18 Range/Units 17:56 00:15 05:21 WBC (4.5-11.0) K/mm3 RBC (3.65-5.03) M/mm3 Hgb (10.1-14.3) gm/dl Hct (30.3-42.9) % MCV (79-97) fl RDW (13.2-15.2) % Plt Count (140-440) K/mm3 Lymph % (Auto) (13.4-35.0) % [place] # (0.0-0.8) K/mm3 Seg Neutrophils % (40.0-70.0) % Seg Neutrophils # (1.8-7.7) K/mm3 Creatinine (0.7-1.2) mg/dL Glucose (65-100) mg/dL POC Glucose 169 H 148 H 146 H (70-105) Calcium (8.4-10.2) mg/dL 04/19/18 Range/Units 08:00 WBC 18.7 H (4.5-11.0) K/mm3 RBC (3.65-5.03) M/mm3 Hgb (10.1-14.3) gm/dl Hct (30.3-42.9) % MCV (79-97) fl RDW (13.2-15.2) % Plt Count 531 H (140-440) K/mm3 Lymph % (Auto) (13.4-35.0) % [place] # (0.0-0.8) K/mm3 Seg Neutrophils % (40.0-70.0) % Seg Neutrophils # (1.8-7.7) K/mm3 Creatinine (0.7-1.2) mg/dL Glucose (65-100) mg/dL POC Glucose (70-105) Calcium (8.4-10.2) mg/dL
[2018-04-19 08:39] LABS: Alanine Aminotransferase 76 units/L (7-56); Albumin 2.4 g/dL (3.9-5); BUN/Creatinine Ratio 36; Blood Urea Nitrogen 18 mg/dL (7-17); Calcium 8.5 mg/dL (8.4-10.2); Hemolysis Index 2
[2018-04-19] MEDS: SODIUM CHLORIDE FLUSH SYRINGE 10 ML IV SCH ×2 (09:55→21:23)
[2018-04-19] MEDS: PROTONIX IV SCH ×2 (09:55→21:33)
--- NOTE | 2018-04-19 10:33 | Progress Note ---
Assessment and Plan Sepsis syndrome with altered mental status in the setting of the systemic inflammatory response syndrome. Mild metabolic acidosis Perforated abdominal viscus status post exploratory laparotomy and repair. Obesity. Atypical Chest Pain Obstructive sleep apnea according to the history. Acute encephalopathy, presumably toxic metabolic. History of hypertension. Arthritis. Gastroesophageal reflux disease. Morbid obesity. Acute hypoxemic respiratory failure - 12 lead EKG reviewed and no acte ST/T-wave changes - prn analgesia - cardiac enzymes ordered and will trend - schedule catapress patch 0.1mg for BP control - continue scheduled metoprolol - continue supplemental oxygen to keep sats > 90% - continue anti-infectives and de-escalate per ID recs - continue PICC line for TPN - PT/OT evaluation ongoing - continue GI & VTE prophylaxis - continue bronchodilators for COPD (brovana and changed duonebs to prn) - continue BIPAP scheduled qhs for [place] with prn daytime use - wound care per WCT / RN and surgeon - continue other care per attending / other consultants - transfer to telemetry now ok from a medical standpoint ...... re-evaluate in am & prn ...35' Subjective Date of service: 04/19/18 Principal diagnosis: Sepsis Syndrome; Acute Hypoxemic Resp Failure; Acute Encephalopathy Interval history: Patient is seen today for: Sepsis Syndrome; Acute Hypoxemic Resp Failure; Acute Encephalopathy Seen and examined at bedside; 24hour events reviewed; nursing and respiratory care staff consulted; no adverse overnight events reported to me; resting peacefully in bed; complained of some retrosternal chest pain; atypical features ; no cough; denies acute abdominal pain; No N/V/F/C Objective Vital Signs - 12hr 04/18/18 04/18/18 04/18/18 23:00 23:22 23:31 Temperature Pulse Rate 116 H 96 H 95 H Pulse Rate [ Anterior Bilateral] Pulse Rate [ Left Radial] Respiratory 30 H 25 H 23 Rate Respiratory Rate [Anterior Bilateral] Blood Pressure 167/79 167/79 167/79 O2 Sat by Pulse 93 98 98 Oximetry 04/18/18 04/19/18 04/19/18 23:52 00:00 00:31 Temperature 98.9 F Pulse Rate 95 H 95 H Pulse Rate [ Anterior Bilateral] Pulse Rate [ Left Radial] Respiratory 21 22 Rate Respiratory Rate [Anterior Bilateral] Blood Pressure 129/57 129/57 O2 Sat by Pulse 97 99 Oximetry 04/19/18 04/19/18 04/19/18 01:00 01:31 02:00 Temperature Pulse Rate 97 H 93 H 102 H Pulse Rate [ Anterior Bilateral] Pulse Rate [ Left Radial] Respiratory 22 17 19 Rate Respiratory Rate [Anterior Bilateral] Blood Pressure 129/57 129/57 149/77 O2 Sat by Pulse 98 99 97 Oximetry 04/19/18 04/19/18 04/19/18 02:31 03:00 03:31 Temperature Pulse Rate 95 H 95 H 96 H Pulse Rate [ Anterior Bilateral] Pulse Rate [ Left Radial] Respiratory 23 21 20 Rate Respiratory Rate [Anterior Bilateral] Blood Pressure 149/77 142/74 142/74 O2 Sat by Pulse 98 97 99 Oximetry 04/19/18 04/19/18 04/19/18 03:45 04:01 04:31 Temperature 98.4 F Pulse Rate 101 H 97 H Pulse Rate [ Anterior Bilateral] Pulse Rate [ Left Radial] Respiratory 21 20 Rate Respiratory Rate [Anterior Bilateral] Blood Pressure 155/80 155/80 O2 Sat by Pulse 94 96 Oximetry 04/19/18 04/19/18 04/19/18 05:00 05:31 06:00 Temperature Pulse Rate 97 H 89 92 H Pulse Rate [ Anterior Bilateral] Pulse Rate [ Left Radial] Respiratory 21 20 23 Rate Respiratory Rate [Anterior Bilateral] Blood Pressure 166/82 166/82 171/81 O2 Sat by Pulse 95 95 96 Oximetry 04/19/18 04/19/18 04/19/18 06:31 07:00 07:30 Temperature Pulse Rate 90 104 H 114 H Pulse Rate [ Anterior Bilateral] Pulse Rate [ Left Radial] Respiratory 25 H 17 21 Rate Respiratory Rate [Anterior Bilateral] Blood Pressure 171/81 140/65 171/81 O2 Sat by Pulse 95 92 96 Oximetry 04/19/18 04/19/18 04/19/18 07:42 08:00 08:31 Temperature 98.4 F Pulse Rate 108 H 115 H Pulse Rate [ 106 H Anterior Bilateral] Pulse Rate [ 106 H Left Radial] Respiratory 31 H 24 Rate Respiratory 20 Rate [Anterior Bilateral] Blood Pressure 140/65 140/65 O2 Sat by Pulse 95 96 95 Oximetry 04/19/18 04/19/18 04/19/18 09:00 09:31 10:00 Temperature Pulse Rate 106 H 106 H 114 H Pulse Rate [ Anterior Bilateral] Pulse Rate [ Left Radial] Respiratory 27 H 21 25 H Rate Respiratory Rate [Anterior Bilateral] Blood Pressure 140/68 140/68 158/75 O2 Sat by Pulse 92 95 93 Oximetry Constitutional: no acute distress, alert, other (elderly AAF , normocephalic and atraumatic resting in bed with mildly increased work of breathing) Eyes: non-icteric ENT: oropharynx moist, other (no thyromegaly) Neck: supple, no lymphadenopathy, no JVD, other (large neck circumference) Effort: mildly labored Ascultation: Bilateral: diminished breath sounds, rhonchi (scant in bases) Percussion: Bilateral: not dull Cardiovascular: regular rate and rhythm, other (No R/M) Gastrointestinal: hypoactive bowel sounds, soft, tender (mild), non-distended, other (no palpable HSM) Integumentary: normal Extremities: no cyanosis, no edema, pulses normal, no ischemia or petechiae Neurologic: normal mental status, non-focal exam (grossly), pupils equal and round, CN II-XII normal, motor strength normal and Psychiatric: mood appropriate, affect normal CBC and BMP: 04/19/18 08:00 04/19/18 08:00 ABG, PT/INR, D-dimer: ABG POC ABG pH 7.519 (7.35-7.45) H 04/10/18 12:59 POC ABG pCO2 29.3 (35-45) L 04/10/18 12:59 POC ABG pO2 63 (80-105) L 04/10/18 12:59 POC ABG HCO3 23.9 04/10/18 12:59 POC ABG Total CO2 25 04/10/18 12:59 POC ABG O2 Sat 94 04/10/18 12:59 PT/INR, D-dimer PT 13.5 Sec. (12.2-14.9) 04/07/18 09:41 INR 0.98 (0.87-1.13) 04/07/18 09:41 Abnormal lab findings: Abnormal Labs 04/07/18 04/07/18 04/07/18 00:05 00:05 09:41 WBC 18.4 H 21.3 H RBC Hgb Hct MCV MCHC RDW Plt Count Lymph % (Auto) 4.5 L [place] % (Auto) Lymph # 0.8 L [place] # 1.2 H Seg Neutrophils % 88.9 H Seg Neuts % (Manual) 85.0 H Lymphocytes % (Manual) 4.0 L Monocytes % (Manual) Nucleated RBC % Seg Neutrophils # 16.4 H Seg Neutrophils # Man 18.1 H Lymphocytes # (Manual) 0.9 L Monocytes # (Manual) 1.1 H POC ABG pH POC ABG pCO2 POC ABG pO2 Sodium Potassium Chloride Carbon Dioxide BUN Creatinine Glucose 123 H POC Glucose Calcium 8.0 L Phosphorus Magnesium 1.60 L AST 59 H ALT Alkaline Phosphatase C-Reactive Protein Total Protein Albumin 2.9 L Urine WBC (Auto) 04/07/18 04/08/18 04/08/18 09:41 00:20 10:25 WBC 19.2 H RBC Hgb Hct MCV MCHC RDW Plt Count Lymph % (Auto) 5.4 L [place] % (Auto) Lymph # 1.0 L [place] # 1.1 H Seg Neutrophils % 88.9 H Seg Neuts % (Manual) Lymphocytes % (Manual) Monocytes % (Manual) Nucleated RBC % Seg Neutrophils # 17.1 H Seg Neutrophils # Man Lymphocytes # (Manual) Monocytes # (Manual) POC ABG pH POC ABG pCO2 POC ABG pO2 Sodium Potassium 3.3 L Chloride 95.1 L Carbon Dioxide 21 L BUN Creatinine Glucose 113 H POC Glucose Calcium Phosphorus Magnesium AST ALT Alkaline Phosphatase C-Reactive Protein Total Protein Albumin 3.6 L Urine WBC (Auto) 45.0 H 04/08/18 04/08/18 04/08/18 10:25 13:33 23:53 WBC 12.8 H RBC Hgb Hct MCV MCHC RDW Plt Count Lymph % (Auto) [place] % (Auto) Lymph # [place] # Seg Neutrophils % Seg Neuts % (Manual) 97.0 H Lymphocytes % (Manual) 2.0 L Monocytes % (Manual) Nucleated RBC % Seg Neutrophils # Seg Neutrophils # Man 12.4 H Lymphocytes # (Manual) 0.3 L Monocytes # (Manual) POC ABG pH POC ABG pCO2 POC ABG pO2 Sodium Potassium 3.5 L Chloride Carbon Dioxide BUN Creatinine Glucose 123 H POC Glucose Calcium 7.9 L Phosphorus Magnesium AST 53 H ALT Alkaline Phosphatase C-Reactive Protein 52.00 H Total Protein 6.1 L Albumin 2.7 L Urine WBC (Auto) 04/09/18 04/09/18 04/09/18 04:20 04:20 13:38 WBC 16.2 H RBC Hgb Hct MCV MCHC RDW Plt Count Lymph % (Auto) [place] % (Auto) Lymph # [place] # Seg Neutrophils % Seg Neuts % (Manual) 89.0 H Lymphocytes % (Manual) 4.0 L Monocytes % (Manual) Nucleated RBC % Seg Neutrophils # Seg Neutrophils # Man 14.4 H Lymphocytes # (Manual) 0.6 L Monocytes # (Manual) POC ABG pH 7.494 H POC ABG pCO2 31.6 L POC ABG pO2 68 L Sodium Potassium 3.5 L Chloride Carbon Dioxide BUN Creatinine 0.6 L Glucose 117 H POC Glucose Calcium 7.9 L Phosphorus 1.50 L D Magnesium AST ALT Alkaline Phosphatase C-Reactive Protein Total Protein 5.6 L Albumin 2.9 L Urine WBC (Auto) 04/09/18 04/09/18 04/09/18 18:25 21:45 21:45 WBC 21.3 H RBC 3.62 L Hgb Hct MCV MCHC 35 H RDW Plt Count Lymph % (Auto) [place] % (Auto) Lymph # [place] # Seg Neutrophils % Seg Neuts % (Manual) 90.0 H Lymphocytes % (Manual) 6.0 L Monocytes % (Manual) Nucleated RBC % 1.0 H Seg Neutrophils # Seg Neutrophils # Man 19.2 H Lymphocytes # (Manual) Monocytes # (Manual) 0.9 H POC ABG pH POC ABG pCO2 POC ABG pO2 Sodium Potassium Chloride Carbon Dioxide BUN 5 L Creatinine 0.5 L Glucose 134 H POC Glucose 155 H Calcium 7.9 L Phosphorus 2.20 L D Magnesium AST ALT Alkaline Phosphatase C-Reactive Protein Total Protein Albumin Urine WBC (Auto) 04/09/18 04/10/18 04/10/18 23:38 04:07 04:07 WBC 20.2 H RBC 3.38 L Hgb 9.4 L Hct 28.9 L MCV MCHC RDW Plt Count Lymph % (Auto) [place] % (Auto) Lymph # [place] # Seg Neutrophils % Seg Neuts % (Manual) Lymphocytes % (Manual) 6.0 L Monocytes % (Manual) Nucleated RBC % Seg Neutrophils # Seg Neutrophils # Man 10.7 H Lymphocytes # (Manual) Monocytes # (Manual) POC ABG pH POC ABG pCO2 POC ABG pO2 Sodium Potassium Chloride Carbon Dioxide BUN 6 L Creatinine 0.6 L Glucose 176 H POC Glucose 160 H Calcium 7.7 L Phosphorus Magnesium AST ALT Alkaline Phosphatase C-Reactive Protein Total Protein Albumin Urine WBC (Auto) 04/10/18 04/10/18 04/10/18 05:29 11:55 12:59 WBC RBC Hgb Hct MCV MCHC RDW Plt Count Lymph % (Auto) [place] % (Auto) Lymph # [place] # Seg Neutrophils % Seg Neuts % (Manual) Lymphocytes % (Manual) Monocytes % (Manual) Nucleated RBC % Seg Neutrophils # Seg Neutrophils # Man Lymphocytes # (Manual) Monocytes # (Manual) POC ABG pH 7.519 H POC ABG pCO2 29.3 L POC ABG pO2 63 L Sodium Potassium Chloride Carbon Dioxide BUN Creatinine Glucose POC Glucose 171 H 194 H Calcium Phosphorus Magnesium AST ALT Alkaline Phosphatase C-Reactive Protein Total Protein Albumin Urine WBC (Auto) 04/10/18 04/10/18 04/10/18 18:11 18:28 18:28 WBC 22.7 H RBC 3.62 L Hgb Hct MCV MCHC RDW Plt Count Lymph % (Auto) [place] % (Auto) Lymph # [place] # Seg Neutrophils % Seg Neuts % (Manual) 84.0 H Lymphocytes % (Manual) 7.0 L Monocytes % (Manual) 8.0 H Nucleated RBC % Seg Neutrophils # Seg Neutrophils # Man 19.1 H Lymphocytes # (Manual) Monocytes # (Manual) 1.8 H POC ABG pH POC ABG pCO2 POC ABG pO2 Sodium Potassium Chloride Carbon Dioxide BUN Creatinine Glucose POC Glucose 118 H Calcium Phosphorus Magnesium AST ALT Alkaline Phosphatase C-Reactive Protein 45.20 H Total Protein Albumin Urine WBC (Auto) 04/10/18 04/10/18 04/11/18 18:28 23:45 03:35 WBC 20.9 H RBC 3.54 L Hgb 10.0 L Hct MCV MCHC RDW Plt Count Lymph % (Auto) [place] % (Auto) Lymph # [place] # Seg Neutrophils % Seg Neuts % (Manual) 80.0 H Lymphocytes % (Manual) 6.0 L Monocytes % (Manual) Nucleated RBC % Seg Neutrophils # Seg Neutrophils # Man 16.7 H Lymphocytes # (Manual) Monocytes # (Manual) POC ABG pH POC ABG pCO2 POC ABG pO2 Sodium Potassium 3.5 L Chloride Carbon Dioxide BUN 5 L Creatinine 0.5 L Glucose 108 H POC Glucose 149 H Calcium 8.3 L Phosphorus Magnesium AST ALT Alkaline Phosphatase C-Reactive Protein Total Protein Albumin Urine WBC (Auto) 04/11/18 04/11/18 04/11/18 03:35 06:17 11:29 WBC RBC Hgb Hct MCV MCHC RDW Plt Count Lymph % (Auto) [place] % (Auto) Lymph # [place] # Seg Neutrophils % Seg Neuts % (Manual) Lymphocytes % (Manual) Monocytes % (Manual) Nucleated RBC % Seg Neutrophils # Seg Neutrophils # Man Lymphocytes # (Manual) Monocytes # (Manual) POC ABG pH POC ABG pCO2 POC ABG pO2 Sodium Potassium Chloride Carbon Dioxide BUN Creatinine 0.5 L Glucose 143 H POC Glucose 155 H 158 H Calcium 8.2 L Phosphorus Magnesium AST ALT Alkaline Phosphatase C-Reactive Protein Total Protein 6.0 L Albumin 2.2 L Urine WBC (Auto) 04/11/18 04/11/18 04/12/18 18:13 23:51 05:29 WBC RBC Hgb Hct MCV MCHC RDW Plt Count Lymph % (Auto) [place] % (Auto) Lymph # [place] # Seg Neutrophils % Seg Neuts % (Manual) Lymphocytes % (Manual) Monocytes % (Manual) Nucleated RBC % Seg Neutrophils # Seg Neutrophils # Man Lymphocytes # (Manual) Monocytes # (Manual) POC ABG pH POC ABG pCO2 POC ABG pO2 Sodium Potassium Chloride Carbon Dioxide BUN Creatinine Glucose POC Glucose 135 H 143 H 150 H Calcium Phosphorus Magnesium AST ALT Alkaline Phosphatase C-Reactive Protein Total Protein Albumin Urine WBC (Auto) 04/12/18 04/12/18 04/13/18 05:40 05:40 00:32 WBC 18.0 H RBC 3.34 L Hgb 9.5 L Hct 28.9 L MCV MCHC RDW Plt Count Lymph % (Auto) 7.4 L [place] % (Auto) 10.8 H Lymph # [place] # 1.9 H Seg Neutrophils % 81.1 H Seg Neuts % (Manual) Lymphocytes % (Manual) Monocytes % (Manual) Nucleated RBC % Seg Neutrophils # 14.6 H Seg Neutrophils # Man Lymphocytes # (Manual) Monocytes # (Manual) POC ABG pH POC ABG pCO2 POC ABG pO2 Sodium Potassium Chloride 107.7 H Carbon Dioxide 21 L BUN Creatinine 0.6 L Glucose 140 H POC Glucose 144 H Calcium Phosphorus Magnesium AST ALT Alkaline Phosphatase C-Reactive Protein Total Protein Albumin Urine WBC (Auto) 04/13/18 04/13/18 04/13/18 04:20 04:20 04:20 WBC 18.1 H RBC 3.52 L Hgb 9.8 L Hct 30.1 L MCV MCHC RDW Plt Count Lymph % (Auto) 11.1 L [place] % (Auto) 13.6 H Lymph # [place] # 2.5 H Seg Neutrophils % 74.4 H Seg Neuts % (Manual) Lymphocytes % (Manual) Monocytes % (Manual) Nucleated RBC % Seg Neutrophils # 13.4 H Seg Neutrophils # Man Lymphocytes # (Manual) Monocytes # (Manual) POC ABG pH POC ABG pCO2 POC ABG pO2 Sodium Potassium Chloride Carbon Dioxide BUN Creatinine 0.5 L Glucose 142 H POC Glucose Calcium Phosphorus Magnesium AST ALT Alkaline Phosphatase C-Reactive Protein 29.60 H Total Protein Albumin Urine WBC (Auto) 04/13/18 04/13/18 04/14/18 05:35 23:50 04:00 WBC 22.1 H RBC 3.59 L Hgb 9.9 L Hct MCV MCHC RDW Plt Count Lymph % (Auto) [place] % (Auto) Lymph # [place] # Seg Neutrophils % Seg Neuts % (Manual) 73.0 H Lymphocytes % (Manual) 9.0 L Monocytes % (Manual) 11.0 H Nucleated RBC % Seg Neutrophils # Seg Neutrophils # Man 16.1 H Lymphocytes # (Manual) Monocytes # (Manual) 2.4 H POC ABG pH POC ABG pCO2 POC ABG pO2 Sodium Potassium Chloride Carbon Dioxide BUN Creatinine Glucose POC Glucose 142 H 160 H Calcium Phosphorus Magnesium AST ALT Alkaline Phosphatase C-Reactive Protein Total Protein Albumin Urine WBC (Auto) 04/14/18 04/14/18 04/14/18 04:00 05:29 12:47 WBC RBC Hgb Hct MCV MCHC RDW Plt Count Lymph % (Auto) [place] % (Auto) Lymph # [place] # Seg Neutrophils % Seg Neuts % (Manual) Lymphocytes % (Manual) Monocytes % (Manual) Nucleated RBC % Seg Neutrophils # Seg Neutrophils # Man Lymphocytes # (Manual) Monocytes # (Manual) POC ABG pH POC ABG pCO2 POC ABG pO2 Sodium Potassium Chloride Carbon Dioxide BUN Creatinine Glucose 155 H POC Glucose 133 H 183 H Calcium Phosphorus Magnesium 2.50 H AST ALT Alkaline Phosphatase C-Reactive Protein Total Protein Albumin Urine WBC (Auto) 04/14/18 04/14/18 04/15/18 16:01 23:42 04:42 WBC RBC Hgb Hct MCV MCHC RDW Plt Count Lymph % (Auto) [place] % (Auto) Lymph # [place] # Seg Neutrophils % Seg Neuts % (Manual) Lymphocytes % (Manual) Monocytes % (Manual) Nucleated RBC % Seg Neutrophils # Seg Neutrophils # Man Lymphocytes # (Manual) Monocytes # (Manual) POC ABG pH POC ABG pCO2 POC ABG pO2 Sodium Potassium 3.4 L Chloride 107.5 H Carbon Dioxide 21 L BUN Creatinine Glucose 165 H POC Glucose 153 H 172 H Calcium 8.0 L Phosphorus Magnesium 2.40 H AST ALT Alkaline Phosphatase C-Reactive Protein Total Protein Albumin Urine WBC (Auto) 04/15/18 04/15/18 04/15/18 04:42 05:49 11:17 WBC 21.5 H RBC 3.37 L Hgb 9.4 L Hct 28.9 L MCV MCHC RDW Plt Count 490 H Lymph % (Auto) [place] % (Auto) Lymph # [place] # Seg Neutrophils % Seg Neuts % (Manual) 77.0 H Lymphocytes % (Manual) 7.0 L Monocytes % (Manual) 10.0 H Nucleated RBC % Seg Neutrophils # Seg Neutrophils # Man 16.6 H Lymphocytes # (Manual) Monocytes # (Manual) 2.2 H POC ABG pH POC ABG pCO2 POC ABG pO2 Sodium Potassium Chloride Carbon Dioxide BUN Creatinine Glucose POC Glucose 147 H 119 H Calcium Phosphorus Magnesium AST ALT Alkaline Phosphatase C-Reactive Protein Total Protein Albumin Urine WBC (Auto) 04/15/18 04/16/18 04/16/18 17:35 00:26 06:12 WBC 20.7 H RBC 3.25 L Hgb 9.0 L Hct MCV MCHC 29 L RDW 16.7 H Plt Count 498 H Lymph % (Auto) [place] % (Auto) Lymph # [place] # Seg Neutrophils % Seg Neuts % (Manual) 88.0 H Lymphocytes % (Manual) 5.0 L Monocytes % (Manual) Nucleated RBC % Seg Neutrophils # Seg Neutrophils # Man 18.2 H Lymphocytes # (Manual) 1.0 L Monocytes # (Manual) POC ABG pH POC ABG pCO2 POC ABG pO2 Sodium Potassium Chloride Carbon Dioxide BUN Creatinine Glucose POC Glucose 169 H 176 H Calcium Phosphorus Magnesium AST ALT Alkaline Phosphatase C-Reactive Protein Total Protein Albumin Urine WBC (Auto) 04/16/18 04/16/18 04/16/18 06:19 06:21 06:24 WBC RBC Hgb Hct MCV MCHC RDW Plt Count Lymph % (Auto) [place] % (Auto) Lymph # [place] # Seg Neutrophils % Seg Neuts % (Manual) Lymphocytes % (Manual) Monocytes % (Manual) Nucleated RBC % Seg Neutrophils # Seg Neutrophils # Man Lymphocytes # (Manual) Monocytes # (Manual) POC ABG pH POC ABG pCO2 POC ABG pO2 Sodium Potassium Chloride Carbon Dioxide BUN Creatinine Glucose POC Glucose > 500 H 493 H 173 H Calcium Phosphorus Magnesium AST ALT Alkaline Phosphatase C-Reactive Protein Total Protein Albumin Urine WBC (Auto) 04/16/18 04/16/18 04/16/18 08:52 14:05 17:17 WBC RBC Hgb Hct MCV MCHC RDW Plt Count Lymph % (Auto) [place] % (Auto) Lymph # [place] # Seg Neutrophils % Seg Neuts % (Manual) Lymphocytes % (Manual) Monocytes % (Manual) Nucleated RBC % Seg Neutrophils # Seg Neutrophils # Man Lymphocytes # (Manual) Monocytes # (Manual) POC ABG pH POC ABG pCO2 POC ABG pO2 Sodium Potassium 3.4 L Chloride Carbon Dioxide BUN Creatinine 0.5 L Glucose 166 H POC Glucose 196 H 189 H Calcium 8.2 L Phosphorus Magnesium AST ALT Alkaline Phosphatase C-Reactive Protein Total Protein Albumin Urine WBC (Auto) 04/17/18 04/17/18 04/17/18 00:06 04:50 04:50 WBC 16.0 H RBC 3.12 L Hgb 8.7 L Hct 29.0 L MCV MCHC RDW 16.2 H Plt Count 455 H Lymph % (Auto) 9.4 L [place] % (Auto) 7.7 H Lymph # [place] # 1.2 H Seg Neutrophils % 81.9 H Seg Neuts % (Manual) Lymphocytes % (Manual) Monocytes % (Manual) Nucleated RBC % Seg Neutrophils # 13.1 H Seg Neutrophils # Man Lymphocytes # (Manual) Monocytes # (Manual) POC ABG pH POC ABG pCO2 POC ABG pO2 Sodium 136 L Potassium Chloride 96.9 L Carbon Dioxide BUN Creatinine Glucose POC Glucose 190 H Calcium 7.6 L Phosphorus Magnesium AST ALT Alkaline Phosphatase C-Reactive Protein Total Protein Albumin Urine WBC (Auto) 04/17/18 04/17/18 04/17/18 05:38 07:17 11:50 WBC RBC Hgb Hct MCV MCHC RDW Plt Count Lymph % (Auto) [place] % (Auto) Lymph # [place] # Seg Neutrophils % Seg Neuts % (Manual) Lymphocytes % (Manual) Monocytes % (Manual) Nucleated RBC % Seg Neutrophils # Seg Neutrophils # Man Lymphocytes # (Manual) Monocytes # (Manual) POC ABG pH POC ABG pCO2 POC ABG pO2 Sodium Potassium 3.4 L Chloride Carbon Dioxide BUN Creatinine 0.6 L Glucose 167 H POC Glucose 190 H 163 H Calcium 8.0 L Phosphorus Magnesium AST ALT Alkaline Phosphatase C-Reactive Protein Total Protein Albumin Urine WBC (Auto) 04/17/18 04/17/18 04/18/18 18:37 23:53 05:59 WBC RBC Hgb Hct MCV MCHC RDW Plt Count Lymph % (Auto) [place] % (Auto) Lymph # [place] # Seg Neutrophils % Seg Neuts % (Manual) Lymphocytes % (Manual) Monocytes % (Manual) Nucleated RBC % Seg Neutrophils # Seg Neutrophils # Man Lymphocytes # (Manual) Monocytes # (Manual) POC ABG pH POC ABG pCO2 POC ABG pO2 Sodium Potassium Chloride Carbon Dioxide BUN Creatinine Glucose POC Glucose 167 H 142 H 144 H Calcium Phosphorus Magnesium AST ALT Alkaline Phosphatase C-Reactive Protein Total Protein Albumin Urine WBC (Auto) 04/18/18 04/18/18 04/18/18 10:05 12:25 14:54 WBC 18.2 H RBC 2.95 L Hgb 8.9 L Hct 29.0 L MCV 98 H MCHC RDW 16.9 H Plt Count Lymph % (Auto) 9.2 L [place] % (Auto) Lymph # [place] # 1.2 H Seg Neutrophils % 82.7 H Seg Neuts % (Manual) Lymphocytes % (Manual) Monocytes % (Manual) Nucleated RBC % Seg Neutrophils # 15.1 H Seg Neutrophils # Man Lymphocytes # (Manual) Monocytes # (Manual) POC ABG pH POC ABG pCO2 POC ABG pO2 Sodium Potassium Chloride Carbon Dioxide BUN Creatinine 0.5 L Glucose 127 H POC Glucose 171 H Calcium 8.2 L Phosphorus Magnesium AST ALT Alkaline Phosphatase C-Reactive Protein Total Protein Albumin Urine WBC (Auto) 04/18/18 04/19/18 04/19/18 17:56 00:15 05:21 WBC RBC Hgb Hct MCV MCHC RDW Plt Count Lymph % (Auto) [place] % (Auto) Lymph # [place] # Seg Neutrophils % Seg Neuts % (Manual) Lymphocytes % (Manual) Monocytes % (Manual) Nucleated RBC % Seg Neutrophils # Seg Neutrophils # Man Lymphocytes # (Manual) Monocytes # (Manual) POC ABG pH POC ABG pCO2 POC ABG pO2 Sodium Potassium Chloride Carbon Dioxide BUN Creatinine Glucose POC Glucose 169 H 148 H 146 H Calcium Phosphorus Magnesium AST ALT Alkaline Phosphatase C-Reactive Protein Total Protein Albumin Urine WBC (Auto) 04/19/18 04/19/18 08:00 08:00 WBC 18.7 H RBC Hgb Hct MCV MCHC RDW Plt Count 531 H Lymph % (Auto) [place] % (Auto) Lymph # [place] # Seg Neutrophils % Seg Neuts % (Manual) Lymphocytes % (Manual) Monocytes % (Manual) Nucleated RBC % Seg Neutrophils # Seg Neutrophils # Man Lymphocytes # (Manual) Monocytes # (Manual) POC ABG pH POC ABG pCO2 POC ABG pO2 Sodium Potassium Chloride Carbon Dioxide BUN 18 H Creatinine 0.5 L Glucose 141 H POC Glucose Calcium Phosphorus Magnesium AST ALT 76 H Alkaline Phosphatase 142 H C-Reactive Protein Total Protein Albumin 2.4 L Urine WBC (Auto) Chest x-ray: image reviewed (left pleural effusion is persistent) Allied health notes reviewed: nursing
[2018-04-19] MEDS: ZOFRAN IV PRN ×2 (11:11→18:14)
[2018-04-19] MEDS: CATAPRES-TTS PATCH TD SCH (11:40)
--- NOTE | 2018-04-19 14:04 | Progress Note ---
Assessment and Plan Assessment and plan: Sepsis. Continue Cefepime. Metronidazole ID Physician following Leukocytosis due to sepsis Gastric perforation s/p exploratory lap, repair of perforation on 04/07/18. Surg is attending, managing Pneumoperitoneum due to gastric perforation Acute respiratory failure. On supplemental Oxygen by [place] Pulmonology on case Bilateral pneumonia vs atelectasis On Cefepime Hypertension. Monitor BP On Clonidine patch and Lopressor. Also Hydraazine iv prn. Hypokalemia, resolved Obstructive seep apnea Full code status History Interval history: Feels better, No more fever x 4 days less abd pain Hospitalist Physical - Physical exam Narrative exam: Constitutional: Not in acute distress, obese, HEENT: Atraumatic, normocephalic Neck: supple, no lymphadenopathy, Lungs: Bilateral rhonchi, wheezing, CVS: S1-S2 regular, no murmurs, rubs or gallop, Abdomen: soft, mild tender, dressing.bowel sounds present, Musculoskeletal: No edema, clubbing, or cyanosis [employer]: Awake,,alert,oriented x - Constitutional Vitals: Temp Pulse Resp BP Pulse Ox 98.5 F 100 H 23 182/86 94 04/19/18 12:39 04/19/18 13:00 04/19/18 13:00 04/19/18 13:00 04/19/18 13:00 General appearance: Present: no acute distress, obese Results - Labs CBC & Chem 7: 04/19/18 08:00 04/19/18 08:00 Labs: Laboratory Last Values WBC 18.7 K/mm3 (4.5-11.0) H 04/19/18 08:00 RBC 3.66 M/mm3 (3.65-5.03) 04/19/18 08:00 Hgb 10.3 gm/dl (10.1-14.3) 04/19/18 08:00 Hct 31.8 % (30.3-42.9) 04/19/18 08:00 MCV 87 fl (79-97) 04/19/18 08:00 MCH 28 pg (28-32) 04/19/18 08:00 MCHC 32 % (30-34) 04/19/18 08:00 RDW 14.8 % (13.2-15.2) 04/19/18 08:00 Plt Count 531 K/mm3 (140-440) H 04/19/18 08:00 Lymph % (Auto) 9.2 % (13.4-35.0) L 04/18/18 14:54 [place] % (Auto) 6.8 % (0.0-7.3) 04/18/18 14:54 Eos % (Auto) 1.0 % (0.0-4.3) 04/18/18 14:54 Baso % (Auto) 0.3 % (0.0-1.8) 04/18/18 14:54 Lymph # 1.7 K/mm3 (1.2-5.4) 04/18/18 14:54 [place] # 1.2 K/mm3 (0.0-0.8) H 04/18/18 14:54 Eos # 0.2 K/mm3 (0.0-0.4) 04/18/18 14:54 Baso # 0.1 K/mm3 (0.0-0.1) 04/18/18 14:54 Add Manual Diff Complete 04/16/18 06:12 Total Counted 100 04/16/18 06:12 Seg Neutrophils % 82.7 % (40.0-70.0) H 04/18/18 14:54 Seg Neuts % (Manual) 88.0 % (40.0-70.0) H 04/16/18 06:12 Band Neutrophils % 1.0 % 04/16/18 06:12 Lymphocytes % (Manual) 5.0 % (13.4-35.0) L 04/16/18 06:12 Reactive Lymphs % (Man) 0 % 04/16/18 06:12 Monocytes % (Manual) 2.0 % (0.0-7.3) 04/16/18 06:12 Eosinophils % (Manual) 0 % (0.0-4.3) 04/16/18 06:12 Basophils % (Manual) 0 % (0.0-1.8) 04/16/18 06:12 Metamyelocytes % 4.0 % 04/16/18 06:12 Myelocytes % 0 % 04/16/18 06:12 Promyelocytes % 0 % 04/16/18 06:12 Blast Cells % 0 % 04/16/18 06:12 Nucleated RBC % Not Reportable 04/16/18 06:12 Seg Neutrophils # 15.1 K/mm3 (1.8-7.7) H 04/18/18 14:54 Seg Neutrophils # Man 18.2 K/mm3 (1.8-7.7) H 04/16/18 06:12 Band Neutrophils # 0.2 K/mm3 04/16/18 06:12 Lymphocytes # (Manual) 1.0 K/mm3 (1.2-5.4) L 04/16/18 06:12 Abs React Lymphs (Man) 0.0 K/mm3 04/16/18 06:12 Monocytes # (Manual) 0.4 K/mm3 (0.0-0.8) 04/16/18 06:12 Eosinophils # (Manual) 0.0 K/mm3 (0.0-0.4) 04/16/18 06:12 Basophils # (Manual) 0.0 K/mm3 (0.0-0.1) 04/16/18 06:12 Metamyelocytes # 0.8 K/mm3 04/16/18 06:12 Myelocytes # 0.0 K/mm3 04/16/18 06:12 Promyelocytes # 0.0 K/mm3 04/16/18 06:12 Blast Cells # 0.0 K/mm3 04/16/18 06:12 WBC Morphology Not Reportable 04/16/18 06:12 Hypersegmented Neuts Not Reportable 04/16/18 06:12 Hyposegmented Neuts Not Reportable 04/16/18 06:12 Hypogranular Neuts Not Reportable 04/16/18 06:12 Smudge Cells Not Reportable 04/16/18 06:12 Toxic Granulation Not Reportable 04/16/18 06:12 Toxic Vacuolation Not Reportable 04/16/18 06:12 Dohle Bodies Not Reportable 04/16/18 06:12 Pelger-Huet Anomaly Not Reportable 04/16/18 06:12 Narendra Rods Not Reportable 04/16/18 06:12 Platelet Estimate Cons 04/16/18 06:12 Clumped Platelets Not Reportable 04/16/18 06:12 Plt Clumps, EDTA Not Reportable 04/16/18 06:12 Large Platelets Not Reportable 04/16/18 06:12 Giant Platelets Not Reportable 04/16/18 06:12 Platelet Satelliting Not Reportable 04/16/18 06:12 Plt Morphology Comment Not Reportable 04/16/18 06:12 RBC Morphology Not Reportable 04/16/18 06:12 Dimorphic RBCs Not Reportable 04/16/18 06:12 Polychromasia Few 04/16/18 06:12 Hypochromasia Not Reportable 04/16/18 06:12 Poikilocytosis Not Reportable 04/16/18 06:12 Anisocytosis 1+ 04/16/18 06:12 Microcytosis Not Reportable 04/16/18 06:12 Macrocytosis Not Reportable 04/16/18 06:12 Spherocytes Not Reportable 04/16/18 06:12 Pappenheimer Bodies Not Reportable 04/16/18 06:12 Sickle Cells Not Reportable 04/16/18 06:12 Target Cells Not Reportable 04/16/18 06:12 Tear Drop Cells Not Reportable 04/16/18 06:12 Ovalocytes Not Reportable 04/16/18 06:12 Helmet Cells Not Reportable 04/16/18 06:12 [place] Bodies Not Reportable 04/16/18 06:12 [place] Rings Not Reportable 04/16/18 06:12 [place] Cells Not Reportable 04/16/18 06:12 Bite Cells Not Reportable 04/16/18 06:12 Crenated Cell Not Reportable 04/16/18 06:12 Elliptocytes Not Reportable 04/16/18 06:12 Acanthocytes (Spur) Not Reportable 04/16/18 06:12 Rouleaux Not Reportable 04/16/18 06:12 Hemoglobin C Crystals Not Reportable 04/16/18 06:12 Schistocytes Not Reportable 04/16/18 06:12 Malaria parasites Not Reportable 04/16/18 06:12 Giorgio Bodies Not Reportable 04/16/18 06:12 Hem Pathologist Commnt No 04/16/18 06:12 PT 13.5 Sec. (12.2-14.9) 04/07/18 09:41 INR 0.98 (0.87-1.13) 04/07/18 09:41 APTT 29.0 Sec. (24.2-36.6) 04/07/18 16:28 POC ABG pH 7.519 (7.35-7.45) H 04/10/18 12:59 POC ABG pCO2 29.3 (35-45) L 04/10/18 12:59 POC ABG pO2 63 (80-105) L 04/10/18 12:59 POC ABG HCO3 23.9 04/10/18 12:59 POC ABG Total CO2 25 04/10/18 12:59 POC ABG O2 Sat 94 04/10/18 12:59 POC ABG Base Excess 1 04/10/18 12:59 VBG pH 7.413 (7.320-7.420) 04/07/18 09:41 FiO2 28 % 04/10/18 12:59 Sodium 141 mmol/L (137-145) 04/19/18 08:00 Potassium 4.0 mmol/L (3.6-5.0) 04/19/18 08:00 Chloride 104.0 mmol/L (98-107) 04/19/18 08:00 Carbon Dioxide 24 mmol/L (22-30) 04/19/18 08:00 Anion Gap 17 mmol/L 04/19/18 08:00 BUN 18 mg/dL (7-17) H 04/19/18 08:00 Creatinine 0.5 mg/dL (0.7-1.2) L 04/19/18 08:00 Estimated GFR > 60 ml/min 04/19/18 08:00 BUN/Creatinine Ratio 36 % 04/19/18 08:00 Glucose 141 mg/dL (65-100) H 04/19/18 08:00 POC Glucose 161 (70-105) H 04/19/18 12:12 Lactic Acid 0.80 mmol/L (0.7-2.0) 04/08/18 13:33 Calcium 8.5 mg/dL (8.4-10.2) 04/19/18 08:00 Phosphorus 3.40 mg/dL (2.5-4.5) 04/18/18 10:05 Magnesium 2.20 mg/dL (1.7-2.3) 04/18/18 10:05 Total Bilirubin 0.30 mg/dL (0.1-1.2) 04/19/18 08:00 AST 35 units/L (5-40) 04/19/18 08:00 ALT 76 units/L (7-56) H 04/19/18 08:00 Alkaline Phosphatase 142 units/L (35-129) H 04/19/18 08:00 Total Creatine Kinase 37 units/L (30-135) 04/19/18 12:55 CK-MB (CK-2) 1.0 ng/mL (0.0-4.0) 04/19/18 12:55 CK-MB (CK-2) Rel Index 2.7 (0-4) 04/19/18 12:55 Troponin T < 0.010 ng/mL (0.00-0.029) 04/19/18 12:55 C-Reactive Protein 29.60 mg/dL (0.00-1.30) H 04/13/18 04:20 Total Protein 7.5 g/dL (6.3-8.2) 04/19/18 08:00 Albumin 2.4 g/dL (3.9-5) L 04/19/18 08:00 Albumin/Globulin Ratio 0.5 % 04/19/18 08:00 Triglycerides 114 mg/dL (2-149) 04/16/18 08:52 Urine Color Yellow (Yellow) 04/08/18 00:20 Urine Turbidity Hazy (Clear) 04/08/18 00:20 Urine pH 5.0 (5.0-7.0) 04/08/18 00:20 Ur Specific [place] 1.028 (1.003-1.030) 04/08/18 00:20 Urine Protein 100 mg/dl mg/dL (Negative) 04/08/18 00:20 Urine Glucose (UA) Neg mg/dL (Negative) 04/08/18 00:20 Urine Ketones 20 mg/dL (Negative) 04/08/18 00:20 Urine Blood Sm (Negative) 04/08/18 00:20 Urine Nitrite Neg (Negative) 04/08/18 00:20 Urine Bilirubin Neg (Negative) 04/08/18 00:20 Urine Urobilinogen 2.0 mg/dL (<2.0) 04/08/18 00:20 Ur Leukocyte Esterase Sm (Negative) 04/08/18 00:20 Urine WBC (Auto) 45.0 /HPF (0.0-6.0) H 04/08/18 00:20 Urine RBC (Auto) 15.0 /HPF (0.0-6.0) 04/08/18 00:20 U Epithel Cells (Auto) < 1.0 /HPF (0-13.0) 04/08/18 00:20 Urine Mucus Few /HPF 04/08/18 00:20 Vancomycin Trough 13.2 ug/mL (5.0-20.0) 04/14/18 15:51
[2018-04-19] MEDS: APRESOLINE IV SCH ×3 (15:25→21:33)
--- NOTE | 2018-04-19 19:42 | Progress Note ---
Assessment and Plan 58 y.o. f s/p lap sleeve gastrectomy with hiatal hernia repair and partial fundoplication 03/30, presents to ER with abdominal pain, now s/p dx lap, abdominal washout, repair of gastric perforation and placement of drains , s/p abdominal pigtail placement x 2 Neuro: dilualdid, morphine prn. toradol for pain control. Ativan prn for agitation for hx of anxiety baseline Cardio: tachycardia- low 100s hx of HTN: enalaril IV, metop rpn Pulm: pulm toilet per ICU Left pleural effusion: if pulm function continues to improve, she may not require the drainage Appreciate pulmonary consult -IS CXr 04/09: left effusion, cardiomeg. no pulm congestion CT chest: no PE GI: npo, NG to low wall intermit. sunction. No manipulation of NG. NO ice chips no meds. monitor drain output -CT abd/pelvis: fluid collection anterior to liver, leak persistent. s/p IR drain x 2. Nutrition: PIcc line for tpn. -monitor lytes ID: gastric perf. vanco-complted flagyl cefipime most recent surgical drain: staph aureus -umbilical incision: change packing daily peritoneal cultures: serratia Pneumonia: vanco . Dosing per pharm. -ID consult appreciated Fever continues- off/on. f/u cultures. leukocytosis If fevers continues, f/u CT abd. pelvis --> collections /Lytes: f/u am labs. monitor urine out. DVT proph: lovenox scds GI proph: protonix Out of bed to chair Dispo:likely downgrade in am Subjective Narrative: Pt resting in bed. Earlier in day she had chest pain. Currently she denies chest pain and sob. She spit up foam today but denies nausea. She feels tired today. last 12 hrs: KRISTI 1 55cc yellow/green KRISTI 2 19cc serous KRISTI 3 9cc KRISTI 4 20cc NG 180cc white yellow thick Objective Vital Signs - 12hr 04/19/18 04/19/18 04/19/18 07:52 08:00 08:31 Temperature 98.4 F Pulse Rate 108 H 115 H Pulse Rate [ 109 H Anterior Bilateral] Pulse Rate [ 106 H Left Radial] Respiratory 31 H 24 Rate Respiratory 20 Rate [Anterior Bilateral] Blood Pressure 140/65 140/65 O2 Sat by Pulse 96 95 Oximetry 04/19/18 04/19/18 04/19/18 09:00 09:31 10:00 Temperature Pulse Rate 106 H 106 H 114 H Pulse Rate [ Anterior Bilateral] Pulse Rate [ Left Radial] Respiratory 27 H 21 25 H Rate Respiratory Rate [Anterior Bilateral] Blood Pressure 140/68 140/68 158/75 O2 Sat by Pulse 92 95 93 Oximetry 04/19/18 04/19/18 04/19/18 10:31 11:00 11:10 Temperature Pulse Rate 105 H 109 H 111 H Pulse Rate [ Anterior Bilateral] Pulse Rate [ Left Radial] Respiratory 30 H 28 H Rate Respiratory Rate [Anterior Bilateral] Blood Pressure 158/75 152/79 152/79 O2 Sat by Pulse 95 92 Oximetry 04/19/18 04/19/18 04/19/18 11:31 11:40 12:00 Temperature Pulse Rate 96 H 97 H 96 H Pulse Rate [ Anterior Bilateral] Pulse Rate [ 95 H Left Radial] Respiratory 23 19 Rate Respiratory Rate [Anterior Bilateral] Blood Pressure 152/79 152/79 156/77 O2 Sat by Pulse 95 94 Oximetry 04/19/18 04/19/18 04/19/18 12:31 12:39 13:00 Temperature 98.5 F Pulse Rate 96 H 100 H Pulse Rate [ Anterior Bilateral] Pulse Rate [ Left Radial] Respiratory 19 23 Rate Respiratory Rate [Anterior Bilateral] Blood Pressure 156/77 182/86 O2 Sat by Pulse 96 94 Oximetry 04/19/18 04/19/18 04/19/18 13:31 14:01 14:31 Temperature Pulse Rate 105 H 105 H 98 H Pulse Rate [ Anterior Bilateral] Pulse Rate [ Left Radial] Respiratory 22 25 H 22 Rate Respiratory Rate [Anterior Bilateral] Blood Pressure 182/86 144/71 144/71 O2 Sat by Pulse 96 93 96 Oximetry 04/19/18 04/19/18 04/19/18 15:00 15:25 15:31 Temperature Pulse Rate 100 H 101 H 112 H Pulse Rate [ Anterior Bilateral] Pulse Rate [ Left Radial] Respiratory 21 20 Rate Respiratory Rate [Anterior Bilateral] Blood Pressure 158/73 158/73 158/73 O2 Sat by Pulse 94 96 Oximetry 04/19/18 04/19/18 04/19/18 16:00 16:31 17:00 Temperature 98.4 F Pulse Rate 114 H 118 H 110 H Pulse Rate [ Anterior Bilateral] Pulse Rate [ 116 H Left Radial] Respiratory 30 H 29 H 28 H Rate Respiratory Rate [Anterior Bilateral] Blood Pressure 158/73 140/55 155/73 O2 Sat by Pulse 95 94 90 Oximetry 04/19/18 04/19/18 04/19/18 17:31 18:00 18:14 Temperature Pulse Rate 121 H 115 H 115 H Pulse Rate [ Anterior Bilateral] Pulse Rate [ Left Radial] Respiratory 18 34 H Rate Respiratory Rate [Anterior Bilateral] Blood Pressure 155/73 144/70 144/70 O2 Sat by Pulse 95 94 Oximetry - General physical appearance well developed, well nourished - Respiratory normal expansion, normal respiratory effort - Abdomen soft, other (tender at drain sites. umbilical dressing and packing removed. minimal slough at base. irrigated with repacked wet to dry dressing. no rebound no guarding non disteded. ) - Integumentary no rash, no growths - Neurologic normal coordination - Psychiatric oriented to time, oriented to person, oriented to place - Labs 04/19/18 08:00 04/19/18 08:00 Diabetes panel 04/19/18 Range/Units 08:00 Sodium 141 (137-145) mmol/L Potassium 4.0 (3.6-5.0) mmol/L Chloride 104.0 (98-107) mmol/L Carbon Dioxide 24 (22-30) mmol/L BUN 18 H (7-17) mg/dL Creatinine 0.5 L (0.7-1.2) mg/dL Glucose 141 H (65-100) mg/dL Calcium 8.5 (8.4-10.2) mg/dL AST 35 (5-40) units/L ALT 76 H (7-56) units/L Alkaline Phosphatase 142 H (35-129) units/L Total Protein 7.5 (6.3-8.2) g/dL Albumin 2.4 L (3.9-5) g/dL Calcium panel 04/19/18 Range/Units 08:00 Calcium 8.5 (8.4-10.2) mg/dL Albumin 2.4 L (3.9-5) g/dL Pituitary panel 04/19/18 Range/Units 08:00 Sodium 141 (137-145) mmol/L Potassium 4.0 (3.6-5.0) mmol/L Chloride 104.0 (98-107) mmol/L Carbon Dioxide 24 (22-30) mmol/L BUN 18 H (7-17) mg/dL Creatinine 0.5 L (0.7-1.2) mg/dL Glucose 141 H (65-100) mg/dL Calcium 8.5 (8.4-10.2) mg/dL Adrenal panel 04/19/18 Range/Units 08:00 Sodium 141 (137-145) mmol/L Potassium 4.0 (3.6-5.0) mmol/L Chloride 104.0 (98-107) mmol/L Carbon Dioxide 24 (22-30) mmol/L BUN 18 H (7-17) mg/dL Creatinine 0.5 L (0.7-1.2) mg/dL Glucose 141 H (65-100) mg/dL Calcium 8.5 (8.4-10.2) mg/dL Total Bilirubin 0.30 (0.1-1.2) mg/dL AST 35 (5-40) units/L ALT 76 H (7-56) units/L Alkaline Phosphatase 142 H (35-129) units/L Total Protein 7.5 (6.3-8.2) g/dL Albumin 2.4 L (3.9-5) g/dL
[2018-04-19] MEDS ORDERED: TPN ADULT 1,800 ML IV SCH (20:00)
[2018-04-19] MEDS: LOVENOX SUB-Q SCH (21:34)
[2018-04-20] MEDS: LOPRESSOR IV SCH ×4 (01:00→20:55)
[2018-04-20] MEDS ORDERED: CATHFLO IV ONE (01:47)
[2018-04-20] MEDS ORDERED: WATER FOR INJ (PF) ONE (02:01)
[2018-04-20] MEDS: APRESOLINE IV SCH ×6 (02:02→22:34)
[2018-04-20] MEDS: DILAUDID IV PRN ×4 (02:48→21:04)
[2018-04-20] MEDS: ZOFRAN IV PRN ×3 (02:49→21:05)
--- NOTE | 2018-04-20 03:37 | XRay Report ---
FINAL REPORT EXAM: XR CHEST 1V AP HISTORY: follow up respiratory failure TECHNIQUE: A portable upright view the chest was obtained and compared the study of 04/19/2018. FINDINGS: The heart is mildly enlarged. The lungs remain mildly congested. The right-sided PICC line and nasogastric tube appear in good position. There is a pacemaker device overlying the left chest wall with lead directed into the neck. The skeletal structures otherwise are unchanged. IMPRESSION: Stable pulmonary congestion. Satisfactory positioning of the right-sided PICC line and NG tube.
[2018-04-20 04:23] LABS: Basophils # (Auto) 0.1 K/mm3 (0.0-0.1); Basophils % (Auto) 0.8 % (0.0-1.8); Eosinophils # (Auto) 0.1 K/mm3 (0.0-0.4); Eosinophils % (Auto) 0.8 % (0.0-4.3); Hematocrit 30.1 % (30.3-42.9); Hemoglobin 9.9 gm/dl (10.1-14.3); Lymphocytes # (Auto) 1.8 K/mm3 (1.2-5.4); Lymphocytes % (Auto) 10.7 % (13.4-35.0); Mean Corpuscular HGB Conc 33 % (30-34); Mean Corpuscular Hemoglobin 28 pg (28-32); Mean Corpuscular Volume 86 fl (79-97); Monocytes # (Auto) 1.5 K/mm3 (0.0-0.8); Monocytes % (Auto) 9.2 % (0.0-7.3); Platelet Count 530 K/mm3 (140-440); Red Blood Count 3.51 M/mm3 (3.65-5.03); Red Cell Distribution Width 14.8 % (13.2-15.2)
[2018-04-20 04:36] LABS: BUN/Creatinine Ratio 32; Blood Urea Nitrogen 19 mg/dL (7-17); Calcium 8.7 mg/dL (8.4-10.2); Hemolysis Index 0
--- NOTE | 2018-04-20 05:16 | Progress Note ---
Assessment and Plan 58 y.o. f s/p lap sleeve gastrectomy with hiatal hernia repair and partial fundoplication 03/30, presents to ER with abdominal pain, now s/p dx lap, abdominal washout, repair of gastric perforation and placement of drains , s/p abdominal pigtail placement x 2 Neuro: dilualdid, morphine prn. toradol for pain control. Ativan prn for agitation for hx of anxiety baseline Cardio: tachycardia- low 100s hx of HTN: enalaril IV, metop , clonidine patch -hospitalist consult Pulm: pulm toilet per ICU Left pleural effusion: if pulm function continues to improve, she may not require the drainage Appreciate pulmonary consult -IS CXr 04/09: left effusion, cardiomeg. no pulm congestion CT chest: no PE GI: npo, NG to low wall intermit. sunction. No manipulation of NG. NO ice chips no meds. monitor drain output -CT abd/pelvis: fluid collection anterior to liver, leak persistent. s/p IR drain x 2. Nutrition: PIcc line for tpn. -monitor lytes ID: gastric perf. vanco-complted flagyl cefipime most recent surgical drain: staph aureus -umbilical incision: change packing daily peritoneal cultures: serratia Pneumonia: vanco . Dosing per pharm. -ID consult appreciated Fever continues- off/on. f/u cultures. leukocytosis If fevers continues, f/u CT abd. pelvis --> collections --> 04/20: no further fevers /Lytes: f/u am labs. monitor urine out. DVT proph: lovenox scds GI proph: protonix Out of bed to chair Dispo:downgrade Subjective Narrative: Pt seen andn examined in the ICU- no acute overnight events. Denies sob. Abdominal pain controlled with medication. Continues to spit up foam. No vomiting. oob to chair. denies fever or chills Objective Vital Signs - 12hr 04/19/18 04/19/18 04/19/18 17:31 18:00 18:14 Pulse Rate 121 H 115 H 115 H Pulse Rate [ Anterior Bilateral] Pulse Rate [ From Monitor] Respiratory 18 34 H Rate Respiratory Rate [Anterior Bilateral] Blood Pressure 155/73 144/70 144/70 O2 Sat by Pulse 95 94 Oximetry 04/19/18 04/19/1804/19/18 18:31 19:01 19:31 Pulse Rate 99 H 102 H 106 H Pulse Rate [ Anterior Bilateral] Pulse Rate [ From Monitor] Respiratory 22 22 21 Rate Respiratory Rate [Anterior Bilateral] Blood Pressure 144/70 124/55 124/55 O2 Sat by Pulse 95 92 95 Oximetry 04/19/18 04/19/18 04/19/18 20:00 20:03 20:04 Pulse Rate 111 H Pulse Rate [ 106 H Anterior Bilateral] Pulse Rate [ 103 H From Monitor] Respiratory 26 H Rate Respiratory 24 Rate [Anterior Bilateral] Blood Pressure 174/80 O2 Sat by Pulse 94 95 Oximetry 04/19/18 04/19/18 04/19/18 20:18 20:31 21:00 Pulse Rate 107 H 105 H Pulse Rate [ 108 H Anterior Bilateral] Pulse Rate [ From Monitor] Respiratory 23 28 H Rate Respiratory 24 Rate [Anterior Bilateral] Blood Pressure 174/80 132/68 O2 Sat by Pulse 95 92 Oximetry 04/19/18 04/19/18 04/19/18 21:31 21:33 22:00 Pulse Rate 107 H 107 H 110 H Pulse Rate [ Anterior Bilateral] Pulse Rate [ From Monitor] Respiratory 22 27 H Rate Respiratory Rate [Anterior Bilateral] Blood Pressure 132/68 132/68 101/44 O2 Sat by Pulse 95 91 Oximetry 04/19/18 04/19/18 04/19/18 22:22 22:31 23:00 Pulse Rate 111 H 110 H 114 H Pulse Rate [ Anterior Bilateral] Pulse Rate [ From Monitor] Respiratory 27 H 25 H 26 H Rate Respiratory Rate [Anterior Bilateral] Blood Pressure 101/44 101/44 122/56 O2 Sat by Pulse 97 97 94 Oximetry 04/19/18 04/19/18 04/20/18 23:03 23:31 00:00 Pulse Rate 114 H 114 H 110 H Pulse Rate [ Anterior Bilateral] Pulse Rate [ 103 H From Monitor] Respiratory 26 H 31 H 28 H Rate Respiratory Rate [Anterior Bilateral] Blood Pressure 122/56 122/56 129/65 O2 Sat by Pulse 98 97 94 Oximetry 04/20/18 04/20/18 04/20/18 00:31 01:00 01:31 Pulse Rate 109 H 109 H 109 H Pulse Rate [ Anterior Bilateral] Pulse Rate [ From Monitor] Respiratory 25 H 30 H 23 Rate Respiratory Rate [Anterior Bilateral] Blood Pressure 129/65 108/46 108/46 O2 Sat by Pulse 97 93 97 Oximetry 04/20/18 04/20/18 04/20/18 02:00 02:02 02:31 Pulse Rate 104 H 103 H 106 H Pulse Rate [ Anterior Bilateral] Pulse Rate [ From Monitor] Respiratory 24 25 H Rate Respiratory Rate [Anterior Bilateral] Blood Pressure 126/50 108/46 126/50 O2 Sat by Pulse 91 96 Oximetry 04/20/18 03:00 Pulse Rate 105 H Pulse Rate [ Anterior Bilateral] Pulse Rate [ From Monitor] Respiratory 21 Rate Respiratory Rate [Anterior Bilateral] Blood Pressure 141/71 O2 Sat by Pulse 94 Oximetry - General physical appearance well developed, well nourished, no distress - ENT other (ng tube in place low intermit wall suction) - Respiratory normal expansion, normal respiratory effort, clear to auscultation - Abdomen soft, other (tender in epigastric area. justin and pigtails in place. white/yellow thick fluid from luq pigtail. minimal output from other drains ) - Integumentary no rash, no growths - Neurologic normal coordination, normal sensation - Musculoskeletal normal posture - Psychiatric oriented to time, oriented to person, oriented to place - Labs 04/21/18 06:15 04/21/18 06:15 Diabetes panel 04/19/18 04/20/18 Range/Units 08:00 04:00 Sodium 141 142 (137-145) mmol/L Potassium 4.0 4.4 (3.6-5.0) mmol/L Chloride 104.0 103.4 (98-107) mmol/L Carbon Dioxide 24 26 (22-30) mmol/L BUN 18 H 19 H (7-17) mg/dL Creatinine 0.5 L 0.6 L (0.7-1.2) mg/dL Glucose 141 H 185 H (65-100) mg/dL Calcium 8.5 8.7 (8.4-10.2) mg/dL AST 35 (5-40) units/L ALT 76 H (7-56) units/L Alkaline Phosphatase 142 H (35-129) units/L Total Protein 7.5 (6.3-8.2) g/dL Albumin 2.4 L (3.9-5) g/dL Calcium panel 04/19/18 04/20/18 Range/Units 08:00 04:00 Calcium 8.5 8.7 (8.4-10.2) mg/dL Phosphorus 3.60 (2.5-4.5) mg/dL Albumin 2.4 L (3.9-5) g/dL Pituitary panel 04/19/18 04/20/18 Range/Units 08:00 04:00 Sodium 141 142 (137-145) mmol/L Potassium 4.0 4.4 (3.6-5.0) mmol/L Chloride 104.0 103.4 (98-107) mmol/L Carbon Dioxide 24 26 (22-30) mmol/L BUN 18 H 19 H (7-17) mg/dL Creatinine 0.5 L 0.6 L (0.7-1.2) mg/dL Glucose 141 H 185 H (65-100) mg/dL Calcium 8.5 8.7 (8.4-10.2) mg/dL Adrenal panel 04/19/18 04/20/18 Range/Units 08:00 04:00 Sodium 141 142 (137-145) mmol/L Potassium 4.0 4.4 (3.6-5.0) mmol/L Chloride 104.0 103.4 (98-107) mmol/L Carbon Dioxide 24 26 (22-30) mmol/L BUN 18 H 19 H (7-17) mg/dL Creatinine 0.5 L 0.6 L (0.7-1.2) mg/dL Glucose 141 H 185 H (65-100) mg/dL Calcium 8.5 8.7 (8.4-10.2) mg/dL Total Bilirubin 0.30 (0.1-1.2) mg/dL AST 35 (5-40) units/L ALT 76 H (7-56) units/L Alkaline Phosphatase 142 H (35-129) units/L Total Protein 7.5 (6.3-8.2) g/dL Albumin 2.4 L (3.9-5) g/dL
[2018-04-20] MEDS: MAXIPIME/NS 2 GM/100 ML 2 GM/100 ML BAG IV SCH ×3 (05:31→22:52)
[2018-04-20] MEDS: FLAGYL 500 MG/100 ML 500 MG/100 ML BAG IV SCH ×3 (06:09→22:22)
[2018-04-20] MEDS: PHENERGAN PR PRN ×2 (07:07→15:53)
--- NOTE | 2018-04-20 08:36 | Progress Note ---
Assessment and Plan Sepsis with altered mental status in the setting of the systemic inflammatory response syndrome. Perforated abdominal viscus status post exploratory laparotomy and repair. Obesity. Pleural effusion Bilateral lower lobe infiltrates Obstructive sleep apnea according to the history. Acute encephalopathy, presumably toxic metabolic. History of hypertension. Arthritis. Gastroesophageal reflux disease. Morbid obesity. Acute hypoxemic respiratory failure Leukocytosis Hyperglycemia--spurious - continue supplemental oxygen to keep sats > 90% -no need for thoracentesis at this time - BIPAP qhs and prn - Continue incentive spirometry and airway expansion measures -Gentle diuresis while monitoring hemodynamics, electrolyte profile and renal function -bronchodilators( short acting bronchodilators, scheduled) -Antibiotics per ID( peritoneal fluid cultures +for GNR, Serratia) -Monitor fever curve and trend WCC - continue TPN - PT/OT - continue GI & VTE prophylaxis - wound care per WCT / RN and surgeon - continue other care per attending / other consultants -ok from pulmonary standpoint to transfer surgical floor with telemetry Discussed with surgery service Discussed care plan with RT and RN, updated patient Subjective Date of service: 04/20/18 Principal diagnosis: Sepsis Syndrome; Acute Hypoxemic Resp Failure; Acute Encephalopathy Interval history: Sepsis Syndrome; Acute Hypoxemic Resp Failure; Acute Encephalopathy Seen and examined at bedside; 24hour events reviewed; nursing and respiratory care staff consulted; no adverse overnight events reported to me; resting in bed ; much more appropriate mentally; No N/V/F/C; remains off vasopressors; , clinically improved from a respiratory standpoint. Tolerating BIPAP at night, did not use it last night. Objective Vital Signs - 12hr 04/19/18 04/19/18 04/19/18 21:00 21:31 21:33 Pulse Rate 105 H 107 H 107 H Pulse Rate [ From Monitor] Respiratory 28 H 22 Rate Blood Pressure 132/68 132/68 132/68 O2 Sat by Pulse 92 95 Oximetry 04/19/18 04/19/18 04/19/18 22:00 22:22 22:31 Pulse Rate 110 H 111 H 110 H Pulse Rate [ From Monitor] Respiratory 27 H 27 H 25 H Rate Blood Pressure 101/44 101/44 101/44 O2 Sat by Pulse 91 97 97 Oximetry 04/19/18 04/19/18 04/19/18 23:00 23:03 23:31 Pulse Rate 114 H 114 H 114 H Pulse Rate [ From Monitor] Respiratory 26 H 26 H 31 H Rate Blood Pressure 122/56 122/56 122/56 O2 Sat by Pulse 94 98 97 Oximetry 04/20/18 04/20/18 04/20/18 00:00 00:31 01:00 Pulse Rate 110 H 109 H 109 H Pulse Rate [ 103 H From Monitor] Respiratory 28 H 25 H 30 H Rate Blood Pressure 129/65 129/65 108/46 O2 Sat by Pulse 94 97 93 Oximetry 04/20/18 04/20/18 04/20/18 01:31 02:00 02:02 Pulse Rate 109 H 104 H 103 H Pulse Rate [ From Monitor] Respiratory 23 24 Rate Blood Pressure 108/46 126/50 108/46 O2 Sat by Pulse 97 91 Oximetry 04/20/18 04/20/18 04/20/18 02:31 03:00 03:30 Pulse Rate 106 H 105 H 105 H Pulse Rate [ From Monitor] Respiratory 25 H 21 25 H Rate Blood Pressure 126/50 141/71 141/71 O2 Sat by Pulse 96 94 95 Oximetry 04/20/18 04/20/18 04/20/18 04:00 04:30 05:00 Pulse Rate 108 H 107 H 104 H Pulse Rate [ 93 H From Monitor] Respiratory 21 22 25 H Rate Blood Pressure 147/72 147/72 143/73 O2 Sat by Pulse 96 96 Oximetry 04/20/18 04/20/18 04/20/18 05:22 05:30 06:00 Pulse Rate 104 H 89 91 H Pulse Rate [ From Monitor] Respiratory 20 21 Rate Blood Pressure 143/73 143/73 138/68 O2 Sat by Pulse 97 94 Oximetry 04/20/18 04/20/18 04/20/18 06:10 06:30 07:00 Pulse Rate 91 H 100 H 102 H Pulse Rate [ From Monitor] Respiratory 16 29 H Rate Blood Pressure 138/68 143/73 150/75 O2 Sat by Pulse 97 92 Oximetry Constitutional: no acute distress, alert, other (elderly AAF , normocephalic and atraumatic resting in bed with mildly increased work of breathing) Eyes: non-icteric ENT: oropharynx moist, other (no thyromegaly) Neck: supple, no lymphadenopathy, no JVD, other (large neck circumference) Effort: mildly labored Ascultation: Bilateral: diminished breath sounds, rhonchi (scant in bases) Percussion: Bilateral: not dull Cardiovascular: regular rate and rhythm, other (No R/M) Gastrointestinal: hypoactive bowel sounds, soft, tender (mild), non-distended, other (no palpable HSM) Integumentary: normal Extremities: no cyanosis, no edema, pulses normal, no ischemia or petechiae Neurologic: normal mental status, non-focal exam (grossly), pupils equal and round, CN II-XII normal, motor strength normal and Psychiatric: mood appropriate, affect normal CBC and BMP: 04/26/18 06:10 04/27/18 05:50 ABG, PT/INR, D-dimer: ABG POC ABG pH 7.519 (7.35-7.45) H 04/10/18 12:59 POC ABG pCO2 29.3 (35-45) L 04/10/18 12:59 POC ABG pO2 63 (80-105) L 04/10/18 12:59 POC ABG HCO3 23.9 04/10/18 12:59 POC ABG Total CO2 25 04/10/18 12:59 POC ABG O2 Sat 94 04/10/18 12:59 PT/INR, D-dimer PT 13.5 Sec. (12.2-14.9) 04/07/18 09:41 INR 0.98 (0.87-1.13) 04/07/18 09:41 Abnormal lab findings: Abnormal Labs 04/07/18 04/07/18 04/07/18 00:05 00:05 09:41 WBC 18.4 H 21.3 H RBC Hgb Hct MCV MCHC RDW Plt Count Lymph % (Auto) 4.5 L [place] % (Auto) Lymph # 0.8 L [place] # 1.2 H Seg Neutrophils % 88.9 H Seg Neuts % (Manual) 85.0 H Lymphocytes % (Manual) 4.0 L Monocytes % (Manual) Nucleated RBC % Seg Neutrophils # 16.4 H Seg Neutrophils # Man 18.1 H Lymphocytes # (Manual) 0.9 L Monocytes # (Manual) 1.1 H POC ABG pH POC ABG pCO2 POC ABG pO2 Sodium Potassium Chloride Carbon Dioxide BUN Creatinine Glucose 123 H POC Glucose Calcium 8.0 L Phosphorus Magnesium 1.60 L AST 59 H ALT Alkaline Phosphatase C-Reactive Protein Total Protein Albumin 2.9 L Urine WBC (Auto) 04/07/18 04/08/18 04/08/18 09:41 00:20 10:25 WBC 19.2 H RBC Hgb Hct MCV MCHC RDW Plt Count Lymph % (Auto) 5.4 L [place] % (Auto) Lymph # 1.0 L [place] # 1.1 H Seg Neutrophils % 88.9 H Seg Neuts % (Manual) Lymphocytes % (Manual) Monocytes % (Manual) Nucleated RBC % Seg Neutrophils # 17.1 H Seg Neutrophils # Man Lymphocytes # (Manual) Monocytes # (Manual) POC ABG pH POC ABG pCO2 POC ABG pO2 Sodium Potassium 3.3 L Chloride 95.1 L Carbon Dioxide 21 L BUN Creatinine Glucose 113 H POC Glucose Calcium Phosphorus Magnesium AST ALT Alkaline Phosphatase C-Reactive Protein Total Protein Albumin 3.6 L Urine WBC (Auto) 45.0 H 04/08/18 04/08/18 04/08/18 10:25 13:33 23:53 WBC 12.8 H RBC Hgb Hct MCV MCHC RDW Plt Count Lymph % (Auto) [place] % (Auto) Lymph # [place] # Seg Neutrophils % Seg Neuts % (Manual) 97.0 H Lymphocytes % (Manual) 2.0 L Monocytes % (Manual) Nucleated RBC % Seg Neutrophils # Seg Neutrophils # Man 12.4 H Lymphocytes # (Manual) 0.3 L Monocytes # (Manual) POC ABG pH POC ABG pCO2 POC ABG pO2 Sodium Potassium 3.5 L Chloride Carbon Dioxide BUN Creatinine Glucose 123 H POC Glucose Calcium 7.9 L Phosphorus Magnesium AST 53 H ALT Alkaline Phosphatase C-Reactive Protein 52.00 H Total Protein 6.1 L Albumin 2.7 L Urine WBC (Auto) 04/09/18 04/09/18 04/09/18 04:20 04:20 13:38 WBC 16.2 H RBC Hgb Hct MCV MCHC RDW Plt Count Lymph % (Auto) [place] % (Auto) Lymph # [place] # Seg Neutrophils % Seg Neuts % (Manual) 89.0 H Lymphocytes % (Manual) 4.0 L Monocytes % (Manual) Nucleated RBC % Seg Neutrophils # Seg Neutrophils # Man 14.4 H Lymphocytes # (Manual) 0.6 L Monocytes # (Manual) POC ABG pH 7.494 H POC ABG pCO2 31.6 L POC ABG pO2 68 L Sodium Potassium 3.5 L Chloride Carbon Dioxide BUN Creatinine 0.6 L Glucose 117 H POC Glucose Calcium 7.9 L Phosphorus 1.50 L D Magnesium AST ALT Alkaline Phosphatase C-Reactive Protein Total Protein 5.6 L Albumin 2.9 L Urine WBC (Auto) 04/09/18 04/09/18 04/09/18 18:25 21:45 21:45 WBC 21.3 H RBC 3.62 L Hgb Hct MCV MCHC 35 H RDW Plt Count Lymph % (Auto) [place] % (Auto) Lymph # [place] # Seg Neutrophils % Seg Neuts % (Manual) 90.0 H Lymphocytes % (Manual) 6.0 L Monocytes % (Manual) Nucleated RBC % 1.0 H Seg Neutrophils # Seg Neutrophils # Man 19.2 H Lymphocytes # (Manual) Monocytes # (Manual) 0.9 H POC ABG pH POC ABG pCO2 POC ABG pO2 Sodium Potassium Chloride Carbon Dioxide BUN 5 L Creatinine 0.5 L Glucose 134 H POC Glucose 155 H Calcium 7.9 L Phosphorus 2.20 L D Magnesium AST ALT Alkaline Phosphatase C-Reactive Protein Total Protein Albumin Urine WBC (Auto) 04/09/18 04/10/18 04/10/18 23:38 04:07 04:07 WBC 20.2 H RBC 3.38 L Hgb 9.4 L Hct 28.9 L MCV MCHC RDW Plt Count Lymph % (Auto) [place] % (Auto) Lymph # [place] # Seg Neutrophils % Seg Neuts % (Manual) Lymphocytes % (Manual) 6.0 L Monocytes % (Manual) Nucleated RBC % Seg Neutrophils # Seg Neutrophils # Man 10.7 H Lymphocytes # (Manual) Monocytes # (Manual) POC ABG pH POC ABG pCO2 POC ABG pO2 Sodium Potassium Chloride Carbon Dioxide BUN 6 L Creatinine 0.6 L Glucose 176 H POC Glucose 160 H Calcium 7.7 L Phosphorus Magnesium AST ALT Alkaline Phosphatase C-Reactive Protein Total Protein Albumin Urine WBC (Auto) 04/10/18 04/10/18 04/10/18 05:29 11:55 12:59 WBC RBC Hgb Hct MCV MCHC RDW Plt Count Lymph % (Auto) [place] % (Auto) Lymph # [place] # Seg Neutrophils % Seg Neuts % (Manual) Lymphocytes % (Manual) Monocytes % (Manual) Nucleated RBC % Seg Neutrophils # Seg Neutrophils # Man Lymphocytes # (Manual) Monocytes # (Manual) POC ABG pH 7.519 H POC ABG pCO2 29.3 L POC ABG pO2 63 L Sodium Potassium Chloride Carbon Dioxide BUN Creatinine Glucose POC Glucose 171 H 194 H Calcium Phosphorus Magnesium AST ALT Alkaline Phosphatase C-Reactive Protein Total Protein Albumin Urine WBC (Auto) 04/10/18 04/10/18 04/10/18 18:11 18:28 18:28 WBC 22.7 H RBC 3.62 L Hgb Hct MCV MCHC RDW Plt Count Lymph % (Auto) [place] % (Auto) Lymph # [place] # Seg Neutrophils % Seg Neuts % (Manual) 84.0 H Lymphocytes % (Manual) 7.0 L Monocytes % (Manual) 8.0 H Nucleated RBC % Seg Neutrophils # Seg Neutrophils # Man 19.1 H Lymphocytes # (Manual) Monocytes # (Manual) 1.8 H POC ABG pH POC ABG pCO2 POC ABG pO2 Sodium Potassium Chloride Carbon Dioxide BUN Creatinine Glucose POC Glucose 118 H Calcium Phosphorus Magnesium AST ALT Alkaline Phosphatase C-Reactive Protein 45.20 H Total Protein Albumin Urine WBC (Auto) 04/10/18 04/10/18 04/11/18 18:28 23:45 03:35 WBC 20.9 H RBC 3.54 L Hgb 10.0 L Hct MCV MCHC RDW Plt Count Lymph % (Auto) [place] % (Auto) Lymph # [place] # Seg Neutrophils % Seg Neuts % (Manual) 80.0 H Lymphocytes % (Manual) 6.0 L Monocytes % (Manual) Nucleated RBC % Seg Neutrophils # Seg Neutrophils # Man 16.7 H Lymphocytes # (Manual) Monocytes # (Manual) POC ABG pH POC ABG pCO2 POC ABG pO2 Sodium Potassium 3.5 L Chloride Carbon Dioxide BUN 5 L Creatinine 0.5 L Glucose 108 H POC Glucose 149 H Calcium 8.3 L Phosphorus Magnesium AST ALT Alkaline Phosphatase C-Reactive Protein Total Protein Albumin Urine WBC (Auto) 04/11/18 04/11/18 04/11/18 03:35 06:17 11:29 WBC RBC Hgb Hct MCV MCHC RDW Plt Count Lymph % (Auto) [place] % (Auto) Lymph # [place] # Seg Neutrophils % Seg Neuts % (Manual) Lymphocytes % (Manual) Monocytes % (Manual) Nucleated RBC % Seg Neutrophils # Seg Neutrophils # Man Lymphocytes # (Manual) Monocytes # (Manual) POC ABG pH POC ABG pCO2 POC ABG pO2 Sodium Potassium Chloride Carbon Dioxide BUN Creatinine 0.5 L Glucose 143 H POC Glucose 155 H 158 H Calcium 8.2 L Phosphorus Magnesium AST ALT Alkaline Phosphatase C-Reactive Protein Total Protein 6.0 L Albumin 2.2 L Urine WBC (Auto) 04/11/18 04/11/18 04/12/18 18:13 23:51 05:29 WBC RBC Hgb Hct MCV MCHC RDW Plt Count Lymph % (Auto) [place] % (Auto) Lymph # [place] # Seg Neutrophils % Seg Neuts % (Manual) Lymphocytes % (Manual) Monocytes % (Manual) Nucleated RBC % Seg Neutrophils # Seg Neutrophils # Man Lymphocytes # (Manual) Monocytes # (Manual) POC ABG pH POC ABG pCO2 POC ABG pO2 Sodium Potassium Chloride Carbon Dioxide BUN Creatinine Glucose POC Glucose 135 H 143 H 150 H Calcium Phosphorus Magnesium AST ALT Alkaline Phosphatase C-Reactive Protein Total Protein Albumin Urine WBC (Auto) 04/12/18 04/12/18 04/13/18 05:40 05:40 00:32 WBC 18.0 H RBC 3.34 L Hgb 9.5 L Hct 28.9 L MCV MCHC RDW Plt Count Lymph % (Auto) 7.4 L [place] % (Auto) 10.8 H Lymph # [place] # 1.9 H Seg Neutrophils % 81.1 H Seg Neuts % (Manual) Lymphocytes % (Manual) Monocytes % (Manual) Nucleated RBC % Seg Neutrophils # 14.6 H Seg Neutrophils # Man Lymphocytes # (Manual) Monocytes # (Manual) POC ABG pH POC ABG pCO2 POC ABG pO2 Sodium Potassium Chloride 107.7 H Carbon Dioxide 21 L BUN Creatinine 0.6 L Glucose 140 H POC Glucose 144 H Calcium Phosphorus Magnesium AST ALT Alkaline Phosphatase C-Reactive Protein Total Protein Albumin Urine WBC (Auto) 04/13/18 04/13/18 04/13/18 04:20 04:20 04:20 WBC 18.1 H RBC 3.52 L Hgb 9.8 L Hct 30.1 L MCV MCHC RDW Plt Count Lymph % (Auto) 11.1 L [place] % (Auto) 13.6 H Lymph # [place] # 2.5 H Seg Neutrophils % 74.4 H Seg Neuts % (Manual) Lymphocytes % (Manual) Monocytes % (Manual) Nucleated RBC % Seg Neutrophils # 13.4 H Seg Neutrophils # Man Lymphocytes # (Manual) Monocytes # (Manual) POC ABG pH POC ABG pCO2 POC ABG pO2 Sodium Potassium Chloride Carbon Dioxide BUN Creatinine 0.5 L Glucose 142 H POC Glucose Calcium Phosphorus Magnesium AST ALT Alkaline Phosphatase C-Reactive Protein 29.60 H Total Protein Albumin Urine WBC (Auto) 04/13/18 04/13/18 04/14/18 05:35 23:50 04:00 WBC 22.1 H RBC 3.59 L Hgb 9.9 L Hct MCV MCHC RDW Plt Count Lymph % (Auto) [place] % (Auto) Lymph # [place] # Seg Neutrophils % Seg Neuts % (Manual) 73.0 H Lymphocytes % (Manual) 9.0 L Monocytes % (Manual) 11.0 H Nucleated RBC % Seg Neutrophils # Seg Neutrophils # Man 16.1 H Lymphocytes # (Manual) Monocytes # (Manual) 2.4 H POC ABG pH POC ABG pCO2 POC ABG pO2 Sodium Potassium Chloride Carbon Dioxide BUN Creatinine Glucose POC Glucose 142 H 160 H Calcium Phosphorus Magnesium AST ALT Alkaline Phosphatase C-Reactive Protein Total Protein Albumin Urine WBC (Auto) 04/14/18 04/14/18 04/14/18 04:00 05:29 12:47 WBC RBC Hgb Hct MCV MCHC RDW Plt Count Lymph % (Auto) [place] % (Auto) Lymph # [place] # Seg Neutrophils % Seg Neuts % (Manual) Lymphocytes % (Manual) Monocytes % (Manual) Nucleated RBC % Seg Neutrophils # Seg Neutrophils # Man Lymphocytes # (Manual) Monocytes # (Manual) POC ABG pH POC ABG pCO2 POC ABG pO2 Sodium Potassium Chloride Carbon Dioxide BUN Creatinine Glucose 155 H POC Glucose 133 H 183 H Calcium Phosphorus Magnesium 2.50 H AST ALT Alkaline Phosphatase C-Reactive Protein Total Protein Albumin Urine WBC (Auto) 04/14/18 04/14/18 04/15/18 16:01 23:42 04:42 WBC RBC Hgb Hct MCV MCHC RDW Plt Count Lymph % (Auto) [place] % (Auto) Lymph # [place] # Seg Neutrophils % Seg Neuts % (Manual) Lymphocytes % (Manual) Monocytes % (Manual) Nucleated RBC % Seg Neutrophils # Seg Neutrophils # Man Lymphocytes # (Manual) Monocytes # (Manual) POC ABG pH POC ABG pCO2 POC ABG pO2 Sodium Potassium 3.4 L Chloride 107.5 H Carbon Dioxide 21 L BUN Creatinine Glucose 165 H POC Glucose 153 H 172 H Calcium 8.0 L Phosphorus Magnesium 2.40 H AST ALT Alkaline Phosphatase C-Reactive Protein Total Protein Albumin Urine WBC (Auto) 04/15/18 04/15/18 04/15/18 04:42 05:49 11:17 WBC 21.5 H RBC 3.37 L Hgb 9.4 L Hct 28.9 L MCV MCHC RDW Plt Count 490 H Lymph % (Auto) [place] % (Auto) Lymph # [place] # Seg Neutrophils % Seg Neuts % (Manual) 77.0 H Lymphocytes % (Manual) 7.0 L Monocytes % (Manual) 10.0 H Nucleated RBC % Seg Neutrophils # Seg Neutrophils # Man 16.6 H Lymphocytes # (Manual) Monocytes # (Manual) 2.2 H POC ABG pH POC ABG pCO2 POC ABG pO2 Sodium Potassium Chloride Carbon Dioxide BUN Creatinine Glucose POC Glucose 147 H 119 H Calcium Phosphorus Magnesium AST ALT Alkaline Phosphatase C-Reactive Protein Total Protein Albumin Urine WBC (Auto) 04/15/18 04/16/18 04/16/18 17:35 00:26 06:12 WBC 20.7 H RBC 3.25 L Hgb 9.0 L Hct MCV MCHC 29 L RDW 16.7 H Plt Count 498 H Lymph % (Auto) [place] % (Auto) Lymph # [place] # Seg Neutrophils % Seg Neuts % (Manual) 88.0 H Lymphocytes % (Manual) 5.0 L Monocytes % (Manual) Nucleated RBC % Seg Neutrophils # Seg Neutrophils # Man 18.2 H Lymphocytes # (Manual) 1.0 L Monocytes # (Manual) POC ABG pH POC ABG pCO2 POC ABG pO2 Sodium Potassium Chloride Carbon Dioxide BUN Creatinine Glucose POC Glucose 169 H 176 H Calcium Phosphorus Magnesium AST ALT Alkaline Phosphatase C-Reactive Protein Total Protein Albumin Urine WBC (Auto) 04/16/18 04/16/18 04/16/18 06:19 06:21 06:24 WBC RBC Hgb Hct MCV MCHC RDW Plt Count Lymph % (Auto) [place] % (Auto) Lymph # [place] # Seg Neutrophils % Seg Neuts % (Manual) Lymphocytes % (Manual) Monocytes % (Manual) Nucleated RBC % Seg Neutrophils # Seg Neutrophils # Man Lymphocytes # (Manual) Monocytes # (Manual) POC ABG pH POC ABG pCO2 POC ABG pO2 Sodium Potassium Chloride Carbon Dioxide BUN Creatinine Glucose POC Glucose > 500 H 493 H 173 H Calcium Phosphorus Magnesium AST ALT Alkaline Phosphatase C-Reactive Protein Total Protein Albumin Urine WBC (Auto) 04/16/18 04/16/18 04/16/18 08:52 14:05 17:17 WBC RBC Hgb Hct MCV MCHC RDW Plt Count Lymph % (Auto) [place] % (Auto) Lymph # [place] # Seg Neutrophils % Seg Neuts % (Manual) Lymphocytes % (Manual) Monocytes % (Manual) Nucleated RBC % Seg Neutrophils # Seg Neutrophils # Man Lymphocytes # (Manual) Monocytes # (Manual) POC ABG pH POC ABG pCO2 POC ABG pO2 Sodium Potassium 3.4 L Chloride Carbon Dioxide BUN Creatinine 0.5 L Glucose 166 H POC Glucose 196 H 189 H Calcium 8.2 L Phosphorus Magnesium AST ALT Alkaline Phosphatase C-Reactive Protein Total Protein Albumin Urine WBC (Auto) 04/17/18 04/17/18 04/17/18 00:06 04:50 04:50 WBC 16.0 H RBC 3.12 L Hgb 8.7 L Hct 29.0 L MCV MCHC RDW 16.2 H Plt Count 455 H Lymph % (Auto) 9.4 L [place] % (Auto) 7.7 H Lymph # [place] # 1.2 H Seg Neutrophils % 81.9 H Seg Neuts % (Manual) Lymphocytes % (Manual) Monocytes % (Manual) Nucleated RBC % Seg Neutrophils # 13.1 H Seg Neutrophils # Man Lymphocytes # (Manual) Monocytes # (Manual) POC ABG pH POC ABG pCO2 POC ABG pO2 Sodium 136 L Potassium Chloride 96.9 L Carbon Dioxide BUN Creatinine Glucose POC Glucose 190 H Calcium 7.6 L Phosphorus Magnesium AST ALT Alkaline Phosphatase C-Reactive Protein Total Protein Albumin Urine WBC (Auto) 04/17/18 04/17/18 04/17/18 05:38 07:17 11:50 WBC RBC Hgb Hct MCV MCHC RDW Plt Count Lymph % (Auto) [place] % (Auto) Lymph # [place] # Seg Neutrophils % Seg Neuts % (Manual) Lymphocytes % (Manual) Monocytes % (Manual) Nucleated RBC % Seg Neutrophils # Seg Neutrophils # Man Lymphocytes # (Manual) Monocytes # (Manual) POC ABG pH POC ABG pCO2 POC ABG pO2 Sodium Potassium 3.4 L Chloride Carbon Dioxide BUN Creatinine 0.6 L Glucose 167 H POC Glucose 190 H 163 H Calcium 8.0 L Phosphorus Magnesium AST ALT Alkaline Phosphatase C-Reactive Protein Total Protein Albumin Urine WBC (Auto) 04/17/18 04/17/18 04/18/18 18:37 23:53 05:59 WBC RBC Hgb Hct MCV MCHC RDW Plt Count Lymph % (Auto) [place] % (Auto) Lymph # [place] # Seg Neutrophils % Seg Neuts % (Manual) Lymphocytes % (Manual) Monocytes % (Manual) Nucleated RBC % Seg Neutrophils # Seg Neutrophils # Man Lymphocytes # (Manual) Monocytes # (Manual) POC ABG pH POC ABG pCO2 POC ABG pO2 Sodium Potassium Chloride Carbon Dioxide BUN Creatinine Glucose POC Glucose 167 H 142 H 144 H Calcium Phosphorus Magnesium AST ALT Alkaline Phosphatase C-Reactive Protein Total Protein Albumin Urine WBC (Auto) 04/18/18 04/18/18 04/18/18 10:05 12:25 14:54 WBC 18.2 H RBC 2.95 L Hgb 8.9 L Hct 29.0 L MCV 98 H MCHC RDW 16.9 H Plt Count Lymph % (Auto) 9.2 L [place] % (Auto) Lymph # [place] # 1.2 H Seg Neutrophils % 82.7 H Seg Neuts % (Manual) Lymphocytes % (Manual) Monocytes % (Manual) Nucleated RBC % Seg Neutrophils # 15.1 H Seg Neutrophils # Man Lymphocytes # (Manual) Monocytes # (Manual) POC ABG pH POC ABG pCO2 POC ABG pO2 Sodium Potassium Chloride Carbon Dioxide BUN Creatinine 0.5 L Glucose 127 H POC Glucose 171 H Calcium 8.2 L Phosphorus Magnesium AST ALT Alkaline Phosphatase C-Reactive Protein Total Protein Albumin Urine WBC (Auto) 04/18/18 04/19/18 04/19/18 17:56 00:15 05:21 WBC RBC Hgb Hct MCV MCHC RDW Plt Count Lymph % (Auto) [place] % (Auto) Lymph # [place] # Seg Neutrophils % Seg Neuts % (Manual) Lymphocytes % (Manual) Monocytes % (Manual) Nucleated RBC % Seg Neutrophils # Seg Neutrophils # Man Lymphocytes # (Manual) Monocytes # (Manual) POC ABG pH POC ABG pCO2 POC ABG pO2 Sodium Potassium Chloride Carbon Dioxide BUN Creatinine Glucose POC Glucose 169 H 148 H 146 H Calcium Phosphorus Magnesium AST ALT Alkaline Phosphatase C-Reactive Protein Total Protein Albumin Urine WBC (Auto) 04/19/18 04/19/18 04/19/18 08:00 08:00 12:12 WBC 18.7 H RBC Hgb Hct MCV MCHC RDW Plt Count 531 H Lymph % (Auto) [place] % (Auto) Lymph # [place] # Seg Neutrophils % Seg Neuts % (Manual) Lymphocytes % (Manual) Monocytes % (Manual) Nucleated RBC % Seg Neutrophils # Seg Neutrophils # Man Lymphocytes # (Manual) Monocytes # (Manual) POC ABG pH POC ABG pCO2 POC ABG pO2 Sodium Potassium Chloride Carbon Dioxide BUN 18 H Creatinine 0.5 L Glucose 141 H POC Glucose 161 H Calcium Phosphorus Magnesium AST ALT 76 H Alkaline Phosphatase 142 H C-Reactive Protein Total Protein Albumin 2.4 L Urine WBC (Auto) 04/19/18 04/20/18 04/20/18 17:41 04:00 04:00 WBC 16.5 H RBC 3.51 L Hgb 9.9 L Hct 30.1 L MCV MCHC RDW Plt Count 530 H Lymph % (Auto) 10.7 L [place] % (Auto) 9.2 H Lymph # [place] # 1.5 H Seg Neutrophils % 78.5 H Seg Neuts % (Manual) Lymphocytes % (Manual) Monocytes % (Manual) Nucleated RBC % Seg Neutrophils # 13.0 H Seg Neutrophils # Man Lymphocytes # (Manual) Monocytes # (Manual) POC ABG pH POC ABG pCO2 POC ABG pO2 Sodium Potassium Chloride Carbon Dioxide BUN 19 H Creatinine 0.6 L Glucose 185 H POC Glucose 134 H Calcium Phosphorus Magnesium AST ALT Alkaline Phosphatase C-Reactive Protein Total Protein Albumin Urine WBC (Auto) 04/20/18 07:05 WBC RBC Hgb Hct MCV MCHC RDW Plt Count Lymph % (Auto) [place] % (Auto) Lymph # [place] # Seg Neutrophils % Seg Neuts % (Manual) Lymphocytes % (Manual) Monocytes % (Manual) Nucleated RBC % Seg Neutrophils # Seg Neutrophils # Man Lymphocytes # (Manual) Monocytes # (Manual) POC ABG pH POC ABG pCO2 POC ABG pO2 Sodium Potassium Chloride Carbon Dioxide BUN Creatinine Glucose POC Glucose 166 H Calcium Phosphorus Magnesium AST ALT Alkaline Phosphatase C-Reactive Protein Total Protein Albumin Urine WBC (Auto) Allied health notes reviewed: nursing
[2018-04-20] MEDS: PULMICORT IH SCH ×2 (09:11→20:05)
[2018-04-20] MEDS: BROVANA NEBU IH SCH ×2 (09:11→20:06)
[2018-04-20] MEDS: PROTONIX IV SCH ×2 (10:23→22:22)
[2018-04-20] MEDS: SODIUM CHLORIDE FLUSH SYRINGE 10 ML IV SCH ×2 (10:25→22:46)
--- NOTE | 2018-04-20 10:31 | Progress Note ---
Assessment and Plan Assessment: 1) Sepsis: resolved. Etiology most likely perf / intra-abdominal collection 2) Gastric perf and intra-abdominal fluid collection -S/P OR for ex lap, abdominal washout, repair of gastric perforation and placement of drains on 04/08/18 -04/07 peritoneal fluid + Serratia x 2 -Repeat CTA 04/09 showed no PE however increase in left pleural effusion with dense consolidation consistent with atelectasis and a large fluid collection 14 x 4.7 cm in the left lobe of the fever with air bubbles. -CRP=52 --> 45 -Repeat CT showed large left pleural effusion, smaller left hep lobe collection and large splenic collection 4.2x6.1 cm -S/P further drain placement 04/16 cx +Staph. S/p vanco IV x 10 days until 3) S/P lap sleeve gastrectomy with hiatal hernia repair and partial fundoplication 03/30/18 4) Presumed pnemonia vs. atelectasis Plan: -f/u drainage cx 04/16 MICs (if MRSA will start zyvox, I am holding adding anything today since she is stable and no fever) -continue cefepime and flagyl D7/10 (s/p zosyn 7 days) -monitor fever and leukocytosis Discussed with Dr Wynn Thank you for your consultation, will follow up with you. Katerin Cross MD Infectious Diseases Specialist [facility] ([facility]) M [phone] O [phone] Subjective Date of service: 04/20/18 Principal diagnosis: Sepsis Syndrome; Acute Hypoxemic Resp Failure; Acute Encephalopathy Interval history: feels better, alert, talking, no fever, still C/o chest tightness and SOB Microbiology: Blood cultures: 04/07 neg 04/10 ngtd Peritoneal cultures: 04/07 Serratia x 2 04/10 ngtd 04/16 ngtd Current Antimicrobials: cefepime and flagyl 04/14 Previous Antimicrobials: Fluconazole Zosyn 04/08-04/14 vanco 04/10-04/19 Objective - Exam Narrative Exam: General appearance: Alert in mild shortness of breath NC O2 Eyes: anicteric sclerae, moist conjunctivae; no lid-lag; PERRLA HENT: Atraumatic; oropharynx NGT Neck: Trachea midline; supple, no thyromegaly or lymphadenopathy Lungs: CTA CV: RRR Abdomen: Obese, Soft, midline surgical wound covered with dressings drain in place KRISTI R minimal purulent output KRISTI L minimal serosang output Extremities: No peripheral edema or extremity lymphadenopathy Skin: Normal temperature, turgor and texture; no rash, ulcers or subcutaneous nodules Psych: Appropriate affect, alert and oriented to person, place and time. Neuro: alert and oriented x 3. Moving all extermities Lines: right PICC, staton - Constitutional Vitals: Vital Signs Temp Pulse Resp BP Pulse Ox 98.4 F 104 H 24 118/51 97 04/20/18 08:00 04/20/18 09:35 04/20/18 09:35 04/20/18 09:00 04/20/18 09:10 Temperature -Last 24 Hours Temperature 98.4 F Temperature 98.4 F Temperature 98.5 F - Labs CBC & Chem 7: 04/20/18 04:00 04/20/18 04:00 Labs: Abnormal lab results 04/19/18 04/19/18 04/20/18 Range/Units 12:12 17:41 04:00 WBC 16.5 H (4.5-11.0) K/mm3 RBC 3.51 L (3.65-5.03) M/mm3 Hgb 9.9 L (10.1-14.3) gm/dl Hct 30.1 L (30.3-42.9) % Plt Count 530 H (140-440) K/mm3 Lymph % (Auto) 10.7 L (13.4-35.0) % [place] % (Auto) 9.2 H (0.0-7.3) % [place] # 1.5 H (0.0-0.8) K/mm3 Seg Neutrophils % 78.5 H (40.0-70.0) % Seg Neutrophils # 13.0 H (1.8-7.7) K/mm3 BUN (7-17) mg/dL Creatinine (0.7-1.2) mg/dL Glucose (65-100) mg/dL POC Glucose 161 H 134 H (70-105) 04/20/18 04/20/18 Range/Units 04:00 07:05 WBC (4.5-11.0) K/mm3 RBC (3.65-5.03) M/mm3 Hgb (10.1-14.3) gm/dl Hct (30.3-42.9) % Plt Count (140-440) K/mm3 Lymph % (Auto) (13.4-35.0) % [place] % (Auto) (0.0-7.3) % [place] # (0.0-0.8) K/mm3 Seg Neutrophils % (40.0-70.0) % Seg Neutrophils # (1.8-7.7) K/mm3 BUN 19 H (7-17) mg/dL Creatinine 0.6 L (0.7-1.2) mg/dL Glucose 185 H (65-100) mg/dL POC Glucose 166 H (70-105)
[2018-04-20] MEDS ORDERED: TPN ADULT 1,800 ML IV SCH (20:00)
[2018-04-20] MEDS: LOVENOX SUB-Q SCH (22:22)
[2018-04-21] MEDS: CHLORASEPTIC MM PRN (00:26)
[2018-04-21] MEDS: DILAUDID IV PRN ×6 (00:27→21:52)
[2018-04-21] MEDS: LOPRESSOR IV SCH ×2 (00:37→08:34)
[2018-04-21] MEDS: APRESOLINE IV SCH ×3 (03:35→10:12)
[2018-04-21] MEDS: MAXIPIME/NS 2 GM/100 ML 2 GM/100 ML BAG IV SCH ×3 (06:07→21:51)
[2018-04-21 06:38] LABS: Basophils # (Auto) 0.2 K/mm3 (0.0-0.1); Basophils % (Auto) 1.6 % (0.0-1.8); Eosinophils # (Auto) 0.2 K/mm3 (0.0-0.4); Eosinophils % (Auto) 1.3 % (0.0-4.3); Hematocrit 30.2 % (30.3-42.9); Hemoglobin 9.8 gm/dl (10.1-14.3); Lymphocytes # (Auto) 2.1 K/mm3 (1.2-5.4); Lymphocytes % (Auto) 13.7 % (13.4-35.0); Mean Corpuscular HGB Conc 32 % (30-34); Mean Corpuscular Hemoglobin 28 pg (28-32); Mean Corpuscular Volume 87 fl (79-97); Monocytes # (Auto) 1.3 K/mm3 (0.0-0.8); Monocytes % (Auto) 8.7 % (0.0-7.3); Platelet Count 499 K/mm3 (140-440); Red Blood Count 3.48 M/mm3 (3.65-5.03); Red Cell Distribution Width 15.1 % (13.2-15.2)
[2018-04-21 07:02] LABS: BUN/Creatinine Ratio 30; Blood Urea Nitrogen 18 mg/dL (7-17); Hemolysis Index 0
[2018-04-21] MEDS: FLAGYL 500 MG/100 ML 500 MG/100 ML BAG IV SCH ×3 (07:10→23:14)
--- NOTE | 2018-04-21 09:18 | XRay Report ---
AP CHEST: HISTORY: Followup respiratory failure The nasogastric tube has been retracted to the mid esophagus since yesterday's exam. Replacement or advancement is recommended. The right arm PICC remains in good position. Mild cardiomegaly, mild central congestion and small left pleural effusion are stable. IMPRESSION: The nasogastric tube has been retracted to the mid esophagus. Otherwise, no significant change.
--- NOTE | 2018-04-21 09:31 | Progress Note ---
Assessment and Plan /Sepsis due to intraabdominal infection and PNA. -continue cefepime and flagyl D8/10 (s/p zosyn 7 days) - S/p vanco IV x 10 days until 04/19 for MSSA - ID Physician following /Leukocytosis due to sepsis, trending down /Gastric perforation s/p exploratory lap, repair of perforation on 04/07/18. Surg is attending, managing on TPN /Pneumoperitoneum due to gastric perforation, s/p repair of perforation on 04/07/18 /Acute respiratory failure. On supplemental Oxygen by [place] Pulmonology on case /Bilateral pneumonia vs atelectasis On Cefepime /Hypertension. Monitor BP On Clonidine patch and Lopressor. Also Hydraazine iv prn. 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 female s/p lap sleeve gastrectomy with hiatal hernia repair and partial fundoplication 03/30, presents to ER with abdominal pain. In the ER she was noted to have a WBC of >20, tachycardiac as well. A CT abd/ pelvis was performed= free air. Now s/p dx lap, abdominal washout, repair of gastric perforation and placement of drains , s/p abdominal pigtail placement x 2. Subjective Date of service: 04/21/18 Principal diagnosis: Sepsis Syndrome; Acute Hypoxemic Resp Failure; Acute Encephalopathy Interval history: Pt seen and examined No acute event, No fever On TPN Objective - Constitutional Vitals: Vital Signs - 12hr 04/21/18 04/21/18 04/21/18 00:10 00:37 03:35 Temperature 99.1 F Pulse Rate 109 H 108 H Respiratory 18 Rate Blood Pressure 138/72 138/72 121/57 O2 Sat by Pulse 96 Oximetry 04/21/18 04/21/18 04:30 07:13 Temperature 98.8 F Pulse Rate 113 H Respiratory 18 Rate Blood Pressure 140/68 140/68 O2 Sat by Pulse 98 Oximetry - Labs CBC & Chem 7: 04/21/18 06:15 04/21/18 06:15 Labs: Abnormal lab results 04/20/18 04/20/18 04/20/18 Range/Units 00:21 12:59 19:06 WBC (4.5-11.0) K/mm3 RBC (3.65-5.03) M/mm3 Hgb (10.1-14.3) gm/dl Hct (30.3-42.9) % Plt Count (140-440) K/mm3 [place] % (Auto) (0.0-7.3) % [place] # (0.0-0.8) K/mm3 Baso # (0.0-0.1) K/mm3 Seg Neutrophils % (40.0-70.0) % Seg Neutrophils # (1.8-7.7) K/mm3 [place] (98-107) mmol/L BUN (7-17) mg/dL Creatinine (0.7-1.2) mg/dL Glucose (65-100) mg/dL POC Glucose 159 H 166 H 170 H (70-105) Calcium (8.4-10.2) mg/dL 04/21/18 04/21/18 04/21/18 Range/Units 00:17 06:15 06:15 WBC 15.1 H (4.5-11.0) K/mm3 RBC 3.48 L (3.65-5.03) M/mm3 Hgb 9.8 L (10.1-14.3) gm/dl Hct 30.2 L (30.3-42.9) % Plt Count 499 H (140-440) K/mm3 [place] % (Auto) 8.7 H (0.0-7.3) % [place] # 1.3 H (0.0-0.8) K/mm3 Baso # 0.2 H (0.0-0.1) K/mm3 Seg Neutrophils % 74.7 H (40.0-70.0) % Seg Neutrophils # 11.3 H (1.8-7.7) K/mm3 [place] 108.8 H (98-107) mmol/L BUN 18 H (7-17) mg/dL Creatinine 0.6 L (0.7-1.2) mg/dL Glucose 157 H (65-100) mg/dL POC Glucose 178 H (70-105) Calcium 8.0 L (8.4-10.2) mg/dL 04/21/18 Range/Units 06:39 WBC (4.5-11.0) K/mm3 RBC (3.65-5.03) M/mm3 Hgb (10.1-14.3) gm/dl Hct (30.3-42.9) % Plt Count (140-440) K/mm3 [place] % (Auto) (0.0-7.3) % [place] # (0.0-0.8) K/mm3 Baso # (0.0-0.1) K/mm3 Seg Neutrophils % (40.0-70.0) % Seg Neutrophils # (1.8-7.7) K/mm3 [place] (98-107) mmol/L BUN (7-17) mg/dL Creatinine (0.7-1.2) mg/dL Glucose (65-100) mg/dL POC Glucose 153 H (70-105) Calcium (8.4-10.2) mg/dL
[2018-04-21] MEDS: NORMODYNE IV SCH ×4 (10:11→21:51)
[2018-04-21] MEDS: PROTONIX IV SCH ×2 (10:11→21:52)
[2018-04-21] MEDS: SODIUM CHLORIDE FLUSH SYRINGE 10 ML IV SCH ×2 (10:13→21:54)
--- NOTE | 2018-04-21 10:30 | Progress Note ---
Assessment and Plan Assessment: 1) Sepsis: resolved. Etiology most likely perf / intra-abdominal collection 2) Gastric perf and intra-abdominal fluid collection -S/P OR for ex lap, abdominal washout, repair of gastric perforation and placement of drains on 04/08/18 -04/07 peritoneal fluid + Serratia x 2 -Repeat CTA 04/09 showed no PE however increase in left pleural effusion with dense consolidation consistent with atelectasis and a large fluid collection 14 x 4.7 cm in the left lobe of the fever with air bubbles. -CRP=52 --> 45 -Repeat CT showed large left pleural effusion, smaller left hep lobe collection and large splenic collection 4.2x6.1 cm -S/P further drain placement 04/16 cx +MSSA and Strep sp. S/p vanco IV x 10 days until 04/19 3) S/P lap sleeve gastrectomy with hiatal hernia repair and partial fundoplication 03/30/18 4) Presumed pnemonia vs. atelectasis Plan: -continue cefepime and flagyl D8/10 (s/p zosyn 7 days) -monitor fever and leukocytosis I am rounding on 04/20 Thank you for your consultation, will follow up with you. Katerin Cross MD Infectious Diseases Specialist [facility] ([facility]) M [phone] O [phone] Subjective Date of service: 04/21/18 Principal diagnosis: Sepsis Syndrome; Acute Hypoxemic Resp Failure; Acute Encephalopathy Interval history: feels better, alert, talking, no fever, still C/o chest tightness and SOB Microbiology: Blood cultures: 04/07 neg 04/10 ngtd Peritoneal cultures: 04/07 Serratia x 2 04/10 ngtd 04/16 MSSA and Strep sp Current Antimicrobials: cefepime and flagyl 04/14 Previous Antimicrobials: Fluconazole Zosyn 04/08-04/14 vanco 04/10-04/19 Objective - Exam Narrative Exam: General appearance: Alert in mild shortness of breath NC O2 Eyes: anicteric sclerae, moist conjunctivae; no lid-lag; PERRLA HENT: Atraumatic; oropharynx NGT Neck: Trachea midline; supple, no thyromegaly or lymphadenopathy Lungs: CTA CV: RRR Abdomen: Obese, Soft, midline surgical wound covered with dressings drain in place KRISTI R minimal purulent output KRISTI L minimal serosang output Extremities: No peripheral edema or extremity lymphadenopathy Skin: Normal temperature, turgor and texture; no rash, ulcers or subcutaneous nodules Psych: Appropriate affect, alert and oriented to person, place and time. Neuro: alert and oriented x 3. Moving all extermities Lines: right PICC, staton - Constitutional Vitals: Vital Signs Temp Pulse Resp BP Pulse Ox 99 F 119 H 18 146/77 98 04/21/18 08:00 04/21/18 08:32 04/21/18 08:00 04/21/18 08:00 04/21/18 08:32 Temperature -Last 24 Hours Temperature 99 F Temperature 98.8 F Temperature 99.1 F Temperature 98.5 F Temperature 98.9 F - Labs CBC & Chem 7: 04/21/18 06:15 04/21/18 06:15 Labs: Abnormal lab results 04/13/18 04/20/18 04/20/18 Range/Units 13:37 00:21 12:59 WBC (4.5-11.0) K/mm3 RBC (3.65-5.03) M/mm3 Hgb (10.1-14.3) gm/dl Hct (30.3-42.9) % Plt Count (140-440) K/mm3 [place] % (Auto) (0.0-7.3) % [place] # (0.0-0.8) K/mm3 Baso # (0.0-0.1) K/mm3 Seg Neutrophils % (40.0-70.0) % Seg Neutrophils # (1.8-7.7) K/mm3 [place] (98-107) mmol/L BUN (7-17) mg/dL Creatinine (0.7-1.2) mg/dL Glucose (65-100) mg/dL POC Glucose 159 H 166 H (70-105) Calcium (8.4-10.2) mg/dL Miscellaneous Test Flexitest 1 H 04/20/18 04/21/18 04/21/18 Range/Units 19:06 00:17 06:15 WBC 15.1 H (4.5-11.0) K/mm3 RBC 3.48 L (3.65-5.03) M/mm3 Hgb 9.8 L (10.1-14.3) gm/dl Hct 30.2 L (30.3-42.9) % Plt Count 499 H (140-440) K/mm3 [place] % (Auto) 8.7 H (0.0-7.3) % [place] # 1.3 H (0.0-0.8) K/mm3 Baso # 0.2 H (0.0-0.1) K/mm3 Seg Neutrophils % 74.7 H (40.0-70.0) % Seg Neutrophils # 11.3 H (1.8-7.7) K/mm3 [place] (98-107) mmol/L BUN (7-17) mg/dL Creatinine (0.7-1.2) mg/dL Glucose (65-100) mg/dL POC Glucose 170 H 178 H (70-105) Calcium (8.4-10.2) mg/dL Miscellaneous Test 04/21/18 04/21/18 Range/Units 06:15 06:39 WBC (4.5-11.0) K/mm3 RBC (3.65-5.03) M/mm3 Hgb (10.1-14.3) gm/dl Hct (30.3-42.9) % Plt Count (140-440) K/mm3 [place] % (Auto) (0.0-7.3) % [place] # (0.0-0.8) K/mm3 Baso # (0.0-0.1) K/mm3 Seg Neutrophils % (40.0-70.0) % Seg Neutrophils # (1.8-7.7) K/mm3 [place] 108.8 H (98-107) mmol/L BUN 18 H (7-17) mg/dL Creatinine 0.6 L (0.7-1.2) mg/dL Glucose 157 H (65-100) mg/dL POC Glucose 153 H (70-105) Calcium 8.0 L (8.4-10.2) mg/dL Miscellaneous Test
[2018-04-21] MEDS: PULMICORT IH SCH ×2 (10:52→19:45)
[2018-04-21] MEDS: BROVANA NEBU IH SCH ×2 (10:52→19:45)
[2018-04-21] MEDS: PHENERGAN PR PRN (11:42)
--- NOTE | 2018-04-21 17:34 | Progress Note ---
Assessment and Plan /Sepsis due to intraabdominal infection and PNA. -continue cefepime and flagyl D8/10 (s/p zosyn 7 days) - S/p vanco IV x 10 days until 04/19 for MSSA - ID Physician following /Leukocytosis due to sepsis, trending down /Gastric perforation s/p exploratory lap, repair of perforation on 04/07/18. Surg is attending, managing on TPN /Pneumoperitoneum due to gastric perforation, s/p repair of perforation on 04/07/[address] in next 2 days per GS /Acute respiratory failure. On supplemental Oxygen by [place] Pulmonology on case /Bilateral pneumonia vs atelectasis On Cefepime /Hypertension. Monitor BP On Clonidine patch and Lopressor. Also Hydraazine iv prn. 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 female s/p lap sleeve gastrectomy with hiatal hernia repair and partial fundoplication 03/30, presents to ER with abdominal pain. In the ER she was noted to have a WBC of >20, tachycardiac as well. A CT abd/ pelvis was performed= free air. Now s/p dx lap, abdominal washout, repair of gastric perforation and placement of drains , s/p abdominal pigtail placement x 2. Subjective Date of service: 04/22/18 Principal diagnosis: Sepsis Syndrome; Acute Hypoxemic Resp Failure; Acute Encephalopathy Interval history: Pt seen and examined No acute event, No fever On TPN, still on NG suction Objective - Constitutional Vitals: Vital Signs - 12hr 04/21/18 04/21/18 04/21/18 07:13 08:00 08:32 Temperature 99 F Pulse Rate 118 H 119 H Pulse Rate [ Anterior Bilateral] Respiratory 18 Rate Respiratory Rate [Anterior Bilateral] Blood Pressure 140/68 Blood Pressure 146/77 [Left] O2 Sat by Pulse 98 Oximetry 04/21/18 04/21/18 10:53 11:15 Temperature Pulse Rate Pulse Rate [ 99 H 100 H Anterior Bilateral] Respiratory Rate Respiratory 20 20 Rate [Anterior Bilateral] Blood Pressure Blood Pressure [Left] O2 Sat by Pulse 99 Oximetry - Labs CBC & Chem 7: 04/22/18 07:00 04/22/18 07:00 Labs: Abnormal lab results 04/13/18 04/20/18 04/21/18 Range/Units 13:37 19:06 00:17 WBC (4.5-11.0) K/mm3 RBC (3.65-5.03) M/mm3 Hgb (10.1-14.3) gm/dl Hct (30.3-42.9) % Plt Count (140-440) K/mm3 [place] % (Auto) (0.0-7.3) % [place] # (0.0-0.8) K/mm3 Baso # (0.0-0.1) K/mm3 Seg Neutrophils % (40.0-70.0) % Seg Neutrophils # (1.8-7.7) K/mm3 [place] (98-107) mmol/L BUN (7-17) mg/dL Creatinine (0.7-1.2) mg/dL Glucose (65-100) mg/dL POC Glucose 170 H 178 H (70-105) Calcium (8.4-10.2) mg/dL Miscellaneous Test Flexitest 1 H 04/21/18 04/21/18 04/21/18 Range/Units 06:15 06:15 06:39 WBC 15.1 H (4.5-11.0) K/mm3 RBC 3.48 L (3.65-5.03) M/mm3 Hgb 9.8 L (10.1-14.3) gm/dl Hct 30.2 L (30.3-42.9) % Plt Count 499 H (140-440) K/mm3 [place] % (Auto) 8.7 H (0.0-7.3) % [place] # 1.3 H (0.0-0.8) K/mm3 Baso # 0.2 H (0.0-0.1) K/mm3 Seg Neutrophils % 74.7 H (40.0-70.0) % Seg Neutrophils # 11.3 H (1.8-7.7) K/mm3 [place] 108.8 H (98-107) mmol/L BUN 18 H (7-17) mg/dL Creatinine 0.6 L (0.7-1.2) mg/dL Glucose 157 H (65-100) mg/dL POC Glucose 153 H (70-105) Calcium 8.0 L (8.4-10.2) mg/dL Miscellaneous Test 04/21/18 Range/Units 11:49 WBC (4.5-11.0) K/mm3 RBC (3.65-5.03) M/mm3 Hgb (10.1-14.3) gm/dl Hct (30.3-42.9) % Plt Count (140-440) K/mm3 [place] % (Auto) (0.0-7.3) % [place] # (0.0-0.8) K/mm3 Baso # (0.0-0.1) K/mm3 Seg Neutrophils % (40.0-70.0) % Seg Neutrophils # (1.8-7.7) K/mm3 [place] (98-107) mmol/L BUN (7-17) mg/dL Creatinine (0.7-1.2) mg/dL Glucose (65-100) mg/dL POC Glucose 184 H (70-105) Calcium (8.4-10.2) mg/dL Miscellaneous Test
--- NOTE | 2018-04-21 19:40 | Progress Note ---
Assessment and Plan 58 y.o. f s/p lap sleeve gastrectomy with hiatal hernia repair and partial fundoplication 03/30, presents to ER with abdominal pain, now s/p dx lap, abdominal washout, repair of gastric perforation and placement of drains , s/p abdominal pigtail placement x 2 Neuro: dilualdid, morphine prn. toradol for pain control. Ativan prn for agitation for hx of anxiety baseline Cardio: tachycardia- improved with pain control and improving/resolving sepsis hx of HTN: enalaril IV, metop , clonidine patch -hospitalist consult Pulm: pulm toilet per ICU Left pleural effusion: if pulm function continues to improve, she may not require the drainage Appreciate pulmonary consult -IS CXr 04/09: left effusion, cardiomeg. no pulm congestion CT chest: no PE GI: npo, NG to low wall intermit. sunction. No manipulation of NG. NO ice chips no meds. monitor drain output -CT abd/pelvis: fluid collection anterior to liver, leak persistent. s/p IR drain x 2. Nutrition: PIcc line for tpn. -monitor lytes ID: gastric perf. vanco-complted flagyl cefipime most recent surgical drain: staph aureus -umbilical incision: change packing daily peritoneal cultures: serratia Pneumonia: vanco . Dosing per pharm. -ID consult appreciated Fever continues- off/on. f/u cultures. leukocytosis If fevers continues, f/u CT abd. pelvis --> collections --> 04/20: no further fevers /Lytes: f/u am labs. monitor urine out. DVT proph: lovenox scds GI proph: protonix Out of bed to chair/ PT Dispo: once the LUQ drain is less white/yellow, has less output. and the NG is less white thick fluid and leukocytosis improved-> more likely of perf healed -- > will repeat CT with iv and po contrast. If leak persists will discuss sleeve stent with pt and contact GI. -Goal of CT in the next 2-4 days Subjective Narrative: Denies sob. Irritation from NG tube in throat. Thirsty. Outof bed to chair. abd sore at site of drains. denies chest pain. Objective Vital Signs - 12hr 04/21/18 04/21/18 04/21/18 08:00 08:32 10:53 Temperature 99 F Pulse Rate 118 H 119 H Pulse Rate [ 99 H Anterior Bilateral] Respiratory 18 Rate Respiratory 20 Rate [Anterior Bilateral] Blood Pressure Blood Pressure 146/77 [Left] O2 Sat by Pulse 98 99 Oximetry 04/21/18 04/21/18 04/21/18 11:15 11:38 16:00 Temperature 98.5 F 97.8 F Pulse Rate 101 H 96 H Pulse Rate [ 100 H Anterior Bilateral] Respiratory 18 18 Rate Respiratory 20 Rate [Anterior Bilateral] Blood Pressure 139/71 Blood Pressure 151/82 [Left] O2 Sat by Pulse 96 Oximetry 04/21/18 16:59 Temperature Pulse Rate Pulse Rate [ Anterior Bilateral] Respiratory Rate Respiratory Rate [Anterior Bilateral] Blood Pressure 151/82 Blood Pressure [Left] O2 Sat by Pulse Oximetry - General physical appearance well developed, well nourished - ENT other (ng low wall suction intermit. yellow output ) - Respiratory normal expansion, normal respiratory effort, clear to auscultation - Abdomen soft, other (tender at incision sites and at drain/pigtails. no rebound no guarding. minimal outputs ) - Integumentary no rash, no growths - Neurologic normal coordination, normal sensation - Musculoskeletal normal posture - Labs 04/21/18 06:15 04/21/18 06:15 Diabetes panel 04/21/18 Range/Units 06:15 Sodium 144 (137-145) mmol/L Potassium 3.9 (3.6-5.0) mmol/L Chloride 108.8 H (98-107) mmol/L Carbon Dioxide 24 (22-30) mmol/L BUN 18 H (7-17) mg/dL Creatinine 0.6 L (0.7-1.2) mg/dL Glucose 157 H (65-100) mg/dL Calcium 8.0 L (8.4-10.2) mg/dL Calcium panel 04/21/18 Range/Units 06:15 Calcium 8.0 L (8.4-10.2) mg/dL Phosphorus 3.10 (2.5-4.5) mg/dL Pituitary panel 04/21/18 Range/Units 06:15 Sodium 144 (137-145) mmol/L Potassium 3.9 (3.6-5.0) mmol/L Chloride 108.8 H (98-107) mmol/L Carbon Dioxide 24 (22-30) mmol/L BUN 18 H (7-17) mg/dL Creatinine 0.6 L (0.7-1.2) mg/dL Glucose 157 H (65-100) mg/dL Calcium 8.0 L (8.4-10.2) mg/dL Adrenal panel 04/21/18 Range/Units 06:15 Sodium 144 (137-145) mmol/L Potassium 3.9 (3.6-5.0) mmol/L Chloride 108.8 H (98-107) mmol/L Carbon Dioxide 24 (22-30) mmol/L BUN 18 H (7-17) mg/dL Creatinine 0.6 L (0.7-1.2) mg/dL Glucose 157 H (65-100) mg/dL Calcium 8.0 L (8.4-10.2) mg/dL
[2018-04-21] MEDS ORDERED: TPN ADULT 1,800 ML IV SCH (20:00)
[2018-04-21] MEDS ORDERED: INTRALIPID 20% 250 ML IV SCH (20:00)
--- NOTE | 2018-04-21 20:08 | Progress Note ---
Assessment and Plan Sepsis with altered mental status in the setting of the systemic inflammatory response syndrome. Perforated abdominal viscus status post exploratory laparotomy and repair. Obesity. Pleural effusion Bilateral lower lobe infiltrates Obstructive sleep apnea according to the history. Acute encephalopathy, presumably toxic metabolic. History of hypertension. Arthritis. Gastroesophageal reflux disease. Morbid obesity. Acute hypoxemic respiratory failure Leukocytosis Hyperglycemia--spurious - continue supplemental oxygen to keep sats > 90% - BIPAP qhs and prn - Continue incentive spirometry and airway expansion measures -Gentle diuresis while monitoring hemodynamics, electrolyte profile and renal function -bronchodilators( short acting bronchodilators, scheduled) -Antibiotics per ID( peritoneal fluid cultures +for GNR, Serratia) -Monitor fever curve and trend WCC - continue TPN , supportive care - continue GI & VTE prophylaxis - wound care per WCT / RN and surgeon - continue other care per attending / other consultants Discussed with surgery service Discussed care plan with RT and RN, updated patient Subjective Date of service: 04/21/18 Principal diagnosis: Sepsis Syndrome; Acute Hypoxemic Resp Failure; Acute Encephalopathy Interval history: Sepsis Syndrome; Acute Hypoxemic Resp Failure; Acute Encephalopathy Seen and examined at bedside; 24hour events reviewed; nursing and respiratory care staff consulted; no adverse overnight events reported to me; resting in bed ; much more appropriate mentally; No N/V/F/C;clinically improved from a respiratory standpoint, no fevers or chills, KRISTI drain output decreasing Objective Vital Signs - 12hr 04/21/18 04/21/18 04/21/18 08:32 10:53 11:15 Temperature Pulse Rate 119 H Pulse Rate [ 99 H 100 H Anterior Bilateral] Respiratory Rate Respiratory 20 20 Rate [Anterior Bilateral] Blood Pressure Blood Pressure [Left] O2 Sat by Pulse 98 99 Oximetry 04/21/18 04/21/18 04/21/18 11:38 16:00 16:59 Temperature 98.5 F 97.8 F Pulse Rate 101 H 96 H Pulse Rate [ Anterior Bilateral] Respiratory 18 18 Rate Respiratory Rate [Anterior Bilateral] Blood Pressure 139/71 151/82 Blood Pressure 151/82 [Left] O2 Sat by Pulse 96 Oximetry 04/21/18 19:46 Temperature Pulse Rate Pulse Rate [ 96 H Anterior Bilateral] Respiratory Rate Respiratory 20 Rate [Anterior Bilateral] Blood Pressure Blood Pressure [Left] O2 Sat by Pulse 97 Oximetry Constitutional: no acute distress, alert, other (elderly AAF , normocephalic and atraumatic resting in bed , not in any respiratory distress) Eyes: non-icteric ENT: oropharynx moist, other (no thyromegaly) Neck: supple, no lymphadenopathy, no JVD, other (large neck circumference) Effort: mildly labored Ascultation: Bilateral: diminished breath sounds, rhonchi (scant in bases) Percussion: Bilateral: not dull Cardiovascular: regular rate and rhythm, other (No R/M) Gastrointestinal: hypoactive bowel sounds, soft, tender (mild), non-distended, other (no palpable HSM) Integumentary: normal Extremities: no cyanosis, no edema, pulses normal, no ischemia or petechiae Neurologic: normal mental status, non-focal exam (grossly), pupils equal and round, CN II-XII normal, motor strength normal and Psychiatric: mood appropriate, affect normal CBC and BMP: 04/26/18 06:10 04/27/18 05:50 ABG, PT/INR, D-dimer: ABG POC ABG pH 7.519 (7.35-7.45) H 04/10/18 12:59 POC ABG pCO2 29.3 (35-45) L 04/10/18 12:59 POC ABG pO2 63 (80-105) L 04/10/18 12:59 POC ABG HCO3 23.9 04/10/18 12:59 POC ABG Total CO2 25 04/10/18 12:59 POC ABG O2 Sat 94 04/10/18 12:59 PT/INR, D-dimer PT 13.5 Sec. (12.2-14.9) 04/07/18 09:41 INR 0.98 (0.87-1.13) 04/07/18 09:41 Abnormal lab findings: Abnormal Labs 04/07/18 04/07/18 04/07/18 00:05 00:05 09:41 WBC 18.4 H 21.3 H RBC Hgb Hct MCV MCHC RDW Plt Count Lymph % (Auto) 4.5 L [place] % (Auto) Lymph # 0.8 L [place] # 1.2 H Baso # Seg Neutrophils % 88.9 H Seg Neuts % (Manual) 85.0 H Lymphocytes % (Manual) 4.0 L Monocytes % (Manual) Nucleated RBC % Seg Neutrophils # 16.4 H Seg Neutrophils # Man 18.1 H Lymphocytes # (Manual) 0.9 L Monocytes # (Manual) 1.1 H POC ABG pH POC ABG pCO2 POC ABG pO2 Sodium Potassium Chloride Carbon Dioxide BUN Creatinine Glucose 123 H POC Glucose Calcium 8.0 L Phosphorus Magnesium 1.60 L AST 59 H ALT Alkaline Phosphatase C-Reactive Protein Total Protein Albumin 2.9 L Urine WBC (Auto) Miscellaneous Test 04/07/18 04/08/18 04/08/18 09:41 00:20 10:25 WBC 19.2 H RBC Hgb Hct MCV MCHC RDW Plt Count Lymph % (Auto) 5.4 L [place] % (Auto) Lymph # 1.0 L [place] # 1.1 H Baso # Seg Neutrophils % 88.9 H Seg Neuts % (Manual) Lymphocytes % (Manual) Monocytes % (Manual) Nucleated RBC % Seg Neutrophils # 17.1 H Seg Neutrophils # Man Lymphocytes # (Manual) Monocytes # (Manual) POC ABG pH POC ABG pCO2 POC ABG pO2 Sodium Potassium 3.3 L Chloride 95.1 L Carbon Dioxide 21 L BUN Creatinine Glucose 113 H POC Glucose Calcium Phosphorus Magnesium AST ALT Alkaline Phosphatase C-Reactive Protein Total Protein Albumin 3.6 L Urine WBC (Auto) 45.0 H Miscellaneous Test 04/08/18 04/08/18 04/08/18 10:25 13:33 23:53 WBC 12.8 H RBC Hgb Hct MCV MCHC RDW Plt Count Lymph % (Auto) [place] % (Auto) Lymph # [place] # Baso # Seg Neutrophils % Seg Neuts % (Manual) 97.0 H Lymphocytes % (Manual) 2.0 L Monocytes % (Manual) Nucleated RBC % Seg Neutrophils # Seg Neutrophils # Man 12.4 H Lymphocytes # (Manual) 0.3 L Monocytes # (Manual) POC ABG pH POC ABG pCO2 POC ABG pO2 Sodium Potassium 3.5 L Chloride Carbon Dioxide BUN Creatinine Glucose 123 H POC Glucose Calcium 7.9 L Phosphorus Magnesium AST 53 H ALT Alkaline Phosphatase C-Reactive Protein 52.00 H Total Protein 6.1 L Albumin 2.7 L Urine WBC (Auto) Miscellaneous Test 04/09/18 04/09/18 04/09/18 04:20 04:20 13:38 WBC 16.2 H RBC Hgb Hct MCV MCHC RDW Plt Count Lymph % (Auto) [place] % (Auto) Lymph # [place] # Baso # Seg Neutrophils % Seg Neuts % (Manual) 89.0 H Lymphocytes % (Manual) 4.0 L Monocytes % (Manual) Nucleated RBC % Seg Neutrophils # Seg Neutrophils # Man 14.4 H Lymphocytes # (Manual) 0.6 L Monocytes # (Manual) POC ABG pH 7.494 H POC ABG pCO2 31.6 L POC ABG pO2 68 L Sodium Potassium 3.5 L Chloride Carbon Dioxide BUN Creatinine 0.6 L Glucose 117 H POC Glucose Calcium 7.9 L Phosphorus 1.50 L D Magnesium AST ALT Alkaline Phosphatase C-Reactive Protein Total Protein 5.6 L Albumin 2.9 L Urine WBC (Auto) Miscellaneous Test 04/09/18 04/09/18 04/09/18 18:25 21:45 21:45 WBC 21.3 H RBC 3.62 L Hgb Hct MCV MCHC 35 H RDW Plt Count Lymph % (Auto) [place] % (Auto) Lymph # [place] # Baso # Seg Neutrophils % Seg Neuts % (Manual) 90.0 H Lymphocytes % (Manual) 6.0 L Monocytes % (Manual) Nucleated RBC % 1.0 H Seg Neutrophils # Seg Neutrophils # Man 19.2 H Lymphocytes # (Manual) Monocytes # (Manual) 0.9 H POC ABG pH POC ABG pCO2 POC ABG pO2 Sodium Potassium Chloride Carbon Dioxide BUN 5 L Creatinine 0.5 L Glucose 134 H POC Glucose 155 H Calcium 7.9 L Phosphorus 2.20 L D Magnesium AST ALT Alkaline Phosphatase C-Reactive Protein Total Protein Albumin Urine WBC (Auto) Miscellaneous Test 04/09/18 04/10/18 04/10/18 23:38 04:07 04:07 WBC 20.2 H RBC 3.38 L Hgb 9.4 L Hct 28.9 L MCV MCHC RDW Plt Count Lymph % (Auto) [place] % (Auto) Lymph # [place] # Baso # Seg Neutrophils % Seg Neuts % (Manual) Lymphocytes % (Manual) 6.0 L Monocytes % (Manual) Nucleated RBC % Seg Neutrophils # Seg Neutrophils # Man 10.7 H Lymphocytes # (Manual) Monocytes # (Manual) POC ABG pH POC ABG pCO2 POC ABG pO2 Sodium Potassium Chloride Carbon Dioxide BUN 6 L Creatinine 0.6 L Glucose 176 H POC Glucose 160 H Calcium 7.7 L Phosphorus Magnesium AST ALT Alkaline Phosphatase C-Reactive Protein Total Protein Albumin Urine WBC (Auto) Miscellaneous Test 04/10/18 04/10/18 04/10/18 05:29 11:55 12:59 WBC RBC Hgb Hct MCV MCHC RDW Plt Count Lymph % (Auto) [place] % (Auto) Lymph # [place] # Baso # Seg Neutrophils % Seg Neuts % (Manual) Lymphocytes % (Manual) Monocytes % (Manual) Nucleated RBC % Seg Neutrophils # Seg Neutrophils # Man Lymphocytes # (Manual) Monocytes # (Manual) POC ABG pH 7.519 H POC ABG pCO2 29.3 L POC ABG pO2 63 L Sodium Potassium Chloride Carbon Dioxide BUN Creatinine Glucose POC Glucose 171 H 194 H Calcium Phosphorus Magnesium AST ALT Alkaline Phosphatase C-Reactive Protein Total Protein Albumin Urine WBC (Auto) Miscellaneous Test 04/10/18 04/10/18 04/10/18 18:11 18:28 18:28 WBC 22.7 H RBC 3.62 L Hgb Hct MCV MCHC RDW Plt Count Lymph % (Auto) [place] % (Auto) Lymph # [place] # Baso # Seg Neutrophils % Seg Neuts % (Manual) 84.0 H Lymphocytes % (Manual) 7.0 L Monocytes % (Manual) 8.0 H Nucleated RBC % Seg Neutrophils # Seg Neutrophils # Man 19.1 H Lymphocytes # (Manual) Monocytes # (Manual) 1.8 H POC ABG pH POC ABG pCO2 POC ABG pO2 Sodium Potassium Chloride Carbon Dioxide BUN Creatinine Glucose POC Glucose 118 H Calcium Phosphorus Magnesium AST ALT Alkaline Phosphatase C-Reactive Protein 45.20 H Total Protein Albumin Urine WBC (Auto) Miscellaneous Test 04/10/18 04/10/18 04/11/18 18:28 23:45 03:35 WBC 20.9 H RBC 3.54 L Hgb 10.0 L Hct MCV MCHC RDW Plt Count Lymph % (Auto) [place] % (Auto) Lymph # [place] # Baso # Seg Neutrophils % Seg Neuts % (Manual) 80.0 H Lymphocytes % (Manual) 6.0 L Monocytes % (Manual) Nucleated RBC % Seg Neutrophils # Seg Neutrophils # Man 16.7 H Lymphocytes # (Manual) Monocytes # (Manual) POC ABG pH POC ABG pCO2 POC ABG pO2 Sodium Potassium 3.5 L Chloride Carbon Dioxide BUN 5 L Creatinine 0.5 L Glucose 108 H POC Glucose 149 H Calcium 8.3 L Phosphorus Magnesium AST ALT Alkaline Phosphatase C-Reactive Protein Total Protein Albumin Urine WBC (Auto) Miscellaneous Test 04/11/18 04/11/18 04/11/18 03:35 06:17 11:29 WBC RBC Hgb Hct MCV MCHC RDW Plt Count Lymph % (Auto) [place] % (Auto) Lymph # [place] # Baso # Seg Neutrophils % Seg Neuts % (Manual) Lymphocytes % (Manual) Monocytes % (Manual) Nucleated RBC % Seg Neutrophils # Seg Neutrophils # Man Lymphocytes # (Manual) Monocytes # (Manual) POC ABG pH POC ABG pCO2 POC ABG pO2 Sodium Potassium Chloride Carbon Dioxide BUN Creatinine 0.5 L Glucose 143 H POC Glucose 155 H 158 H Calcium 8.2 L Phosphorus Magnesium AST ALT Alkaline Phosphatase C-Reactive Protein Total Protein 6.0 L Albumin 2.2 L Urine WBC (Auto) Miscellaneous Test 04/11/18 04/11/18 04/12/18 18:13 23:51 05:29 WBC RBC Hgb Hct MCV MCHC RDW Plt Count Lymph % (Auto) [place] % (Auto) Lymph # [place] # Baso # Seg Neutrophils % Seg Neuts % (Manual) Lymphocytes % (Manual) Monocytes % (Manual) Nucleated RBC % Seg Neutrophils # Seg Neutrophils # Man Lymphocytes # (Manual) Monocytes # (Manual) POC ABG pH POC ABG pCO2 POC ABG pO2 Sodium Potassium Chloride Carbon Dioxide BUN Creatinine Glucose POC Glucose 135 H 143 H 150 H Calcium Phosphorus Magnesium AST ALT Alkaline Phosphatase C-Reactive Protein Total Protein Albumin Urine WBC (Auto) Miscellaneous Test 04/12/18 04/12/18 04/13/18 05:40 05:40 00:32 WBC 18.0 H RBC 3.34 L Hgb 9.5 L Hct 28.9 L MCV MCHC RDW Plt Count Lymph % (Auto) 7.4 L [place] % (Auto) 10.8 H Lymph # [place] # 1.9 H Baso # Seg Neutrophils % 81.1 H Seg Neuts % (Manual) Lymphocytes % (Manual) Monocytes % (Manual) Nucleated RBC % Seg Neutrophils # 14.6 H Seg Neutrophils # Man Lymphocytes # (Manual) Monocytes # (Manual) POC ABG pH POC ABG pCO2 POC ABG pO2 Sodium Potassium Chloride 107.7 H Carbon Dioxide 21 L BUN Creatinine 0.6 L Glucose 140 H POC Glucose 144 H Calcium Phosphorus Magnesium AST ALT Alkaline Phosphatase C-Reactive Protein Total Protein Albumin Urine WBC (Auto) Miscellaneous Test 04/13/18 04/13/18 04/13/18 04:20 04:20 04:20 WBC 18.1 H RBC 3.52 L Hgb 9.8 L Hct 30.1 L MCV MCHC RDW Plt Count Lymph % (Auto) 11.1 L [place] % (Auto) 13.6 H Lymph # [place] # 2.5 H Baso # Seg Neutrophils % 74.4 H Seg Neuts % (Manual) Lymphocytes % (Manual) Monocytes % (Manual) Nucleated RBC % Seg Neutrophils # 13.4 H Seg Neutrophils # Man Lymphocytes # (Manual) Monocytes # (Manual) POC ABG pH POC ABG pCO2 POC ABG pO2 Sodium Potassium Chloride Carbon Dioxide BUN Creatinine 0.5 L Glucose 142 H POC Glucose Calcium Phosphorus Magnesium AST ALT Alkaline Phosphatase C-Reactive Protein 29.60 H Total Protein Albumin Urine WBC (Auto) Miscellaneous Test 04/13/18 04/13/18 04/13/18 05:35 13:37 23:50 WBC RBC Hgb Hct MCV MCHC RDW Plt Count Lymph % (Auto) [place] % (Auto) Lymph # [place] # Baso # Seg Neutrophils % Seg Neuts % (Manual) Lymphocytes % (Manual) Monocytes % (Manual) Nucleated RBC % Seg Neutrophils # Seg Neutrophils # Man Lymphocytes # (Manual) Monocytes # (Manual) POC ABG pH POC ABG pCO2 POC ABG pO2 Sodium Potassium Chloride Carbon Dioxide BUN Creatinine Glucose POC Glucose 142 H 160 H Calcium Phosphorus Magnesium AST ALT Alkaline Phosphatase C-Reactive Protein Total Protein Albumin Urine WBC (Auto) Miscellaneous Test Flexitest 1 H 04/14/18 04/14/18 04/14/18 04:00 04:00 05:29 WBC 22.1 H RBC 3.59 L Hgb 9.9 L Hct MCV MCHC RDW Plt Count Lymph % (Auto) [place] % (Auto) Lymph # [place] # Baso # Seg Neutrophils % Seg Neuts % (Manual) 73.0 H Lymphocytes % (Manual) 9.0 L Monocytes % (Manual) 11.0 H Nucleated RBC % Seg Neutrophils # Seg Neutrophils # Man 16.1 H Lymphocytes # (Manual) Monocytes # (Manual) 2.4 H POC ABG pH POC ABG pCO2 POC ABG pO2 Sodium Potassium Chloride Carbon Dioxide BUN Creatinine Glucose 155 H POC Glucose 133 H Calcium Phosphorus Magnesium 2.50 H AST ALT Alkaline Phosphatase C-Reactive Protein Total Protein Albumin Urine WBC (Auto) Miscellaneous Test 04/14/18 04/14/18 04/14/18 12:47 16:01 23:42 WBC RBC Hgb Hct MCV MCHC RDW Plt Count Lymph % (Auto) [place] % (Auto) Lymph # [place] # Baso # Seg Neutrophils % Seg Neuts % (Manual) Lymphocytes % (Manual) Monocytes % (Manual) Nucleated RBC % Seg Neutrophils # Seg Neutrophils # Man Lymphocytes # (Manual) Monocytes # (Manual) POC ABG pH POC ABG pCO2 POC ABG pO2 Sodium Potassium Chloride Carbon Dioxide BUN Creatinine Glucose POC Glucose 183 H 153 H 172 H Calcium Phosphorus Magnesium AST ALT Alkaline Phosphatase C-Reactive Protein Total Protein Albumin Urine WBC (Auto) Miscellaneous Test 04/15/18 04/15/18 04/15/18 04:42 04:42 05:49 WBC 21.5 H RBC 3.37 L Hgb 9.4 L Hct 28.9 L MCV MCHC RDW Plt Count 490 H Lymph % (Auto) [place] % (Auto) Lymph # [place] # Baso # Seg Neutrophils % Seg Neuts % (Manual) 77.0 H Lymphocytes % (Manual) 7.0 L Monocytes % (Manual) 10.0 H Nucleated RBC % Seg Neutrophils # Seg Neutrophils # Man 16.6 H Lymphocytes # (Manual) Monocytes # (Manual) 2.2 H POC ABG pH POC ABG pCO2 POC ABG pO2 Sodium Potassium 3.4 L Chloride 107.5 H Carbon Dioxide 21 L BUN Creatinine Glucose 165 H POC Glucose 147 H Calcium 8.0 L Phosphorus Magnesium 2.40 H AST ALT Alkaline Phosphatase C-Reactive Protein Total Protein Albumin Urine WBC (Auto) Miscellaneous Test 04/15/18 04/15/18 04/16/18 11:17 17:35 00:26 WBC RBC Hgb Hct MCV MCHC RDW Plt Count Lymph % (Auto) [place] % (Auto) Lymph # [place] # Baso # Seg Neutrophils % Seg Neuts % (Manual) Lymphocytes % (Manual) Monocytes % (Manual) Nucleated RBC % Seg Neutrophils # Seg Neutrophils # Man Lymphocytes # (Manual) Monocytes # (Manual) POC ABG pH POC ABG pCO2 POC ABG pO2 Sodium Potassium Chloride Carbon Dioxide BUN Creatinine Glucose POC Glucose 119 H 169 H 176 H Calcium Phosphorus Magnesium AST ALT Alkaline Phosphatase C-Reactive Protein Total Protein Albumin Urine WBC (Auto) Miscellaneous Test 04/16/18 04/16/18 04/16/18 06:12 06:19 06:21 WBC 20.7 H RBC 3.25 L Hgb 9.0 L Hct MCV MCHC 29 L RDW 16.7 H Plt Count 498 H Lymph % (Auto) [place] % (Auto) Lymph # [place] # Baso # Seg Neutrophils % Seg Neuts % (Manual) 88.0 H Lymphocytes % (Manual) 5.0 L Monocytes % (Manual) Nucleated RBC % Seg Neutrophils # Seg Neutrophils # Man 18.2 H Lymphocytes # (Manual) 1.0 L Monocytes # (Manual) POC ABG pH POC ABG pCO2 POC ABG pO2 Sodium Potassium Chloride Carbon Dioxide BUN Creatinine Glucose POC Glucose > 500 H 493 H Calcium Phosphorus Magnesium AST ALT Alkaline Phosphatase C-Reactive Protein Total Protein Albumin Urine WBC (Auto) Miscellaneous Test 04/16/18 04/16/18 04/16/18 06:24 08:52 14:05 WBC RBC Hgb Hct MCV MCHC RDW Plt Count Lymph % (Auto) [place] % (Auto) Lymph # [place] # Baso # Seg Neutrophils % Seg Neuts % (Manual) Lymphocytes % (Manual) Monocytes % (Manual) Nucleated RBC % Seg Neutrophils # Seg Neutrophils # Man Lymphocytes # (Manual) Monocytes # (Manual) POC ABG pH POC ABG pCO2 POC ABG pO2 Sodium Potassium 3.4 L Chloride Carbon Dioxide BUN Creatinine 0.5 L Glucose 166 H POC Glucose 173 H 196 H Calcium 8.2 L Phosphorus Magnesium AST ALT Alkaline Phosphatase C-Reactive Protein Total Protein Albumin Urine WBC (Auto) Miscellaneous Test 04/16/18 04/17/18 04/17/18 17:17 00:06 04:50 WBC 16.0 H RBC 3.12 L Hgb 8.7 L Hct 29.0 L MCV MCHC RDW 16.2 H Plt Count 455 H Lymph % (Auto) 9.4 L [place] % (Auto) 7.7 H Lymph # [place] # 1.2 H Baso # Seg Neutrophils % 81.9 H Seg Neuts % (Manual) Lymphocytes % (Manual) Monocytes % (Manual) Nucleated RBC % Seg Neutrophils # 13.1 H Seg Neutrophils # Man Lymphocytes # (Manual) Monocytes # (Manual) POC ABG pH POC ABG pCO2 POC ABG pO2 Sodium Potassium Chloride Carbon Dioxide BUN Creatinine Glucose POC Glucose 189 H 190 H Calcium Phosphorus Magnesium AST ALT Alkaline Phosphatase C-Reactive Protein Total Protein Albumin Urine WBC (Auto) Miscellaneous Test 04/17/18 04/17/18 04/17/18 04:50 05:38 07:17 WBC RBC Hgb Hct MCV MCHC RDW Plt Count Lymph % (Auto) [place] % (Auto) Lymph # [place] # Baso # Seg Neutrophils % Seg Neuts % (Manual) Lymphocytes % (Manual) Monocytes % (Manual) Nucleated RBC % Seg Neutrophils # Seg Neutrophils # Man Lymphocytes # (Manual) Monocytes # (Manual) POC ABG pH POC ABG pCO2 POC ABG pO2 Sodium 136 L Potassium 3.4 L Chloride 96.9 L Carbon Dioxide BUN Creatinine 0.6 L Glucose 167 H POC Glucose 190 H Calcium 7.6 L 8.0 L Phosphorus Magnesium AST ALT Alkaline Phosphatase C-Reactive Protein Total Protein Albumin Urine WBC (Auto) Miscellaneous Test 04/17/18 04/17/18 04/17/18 11:50 18:37 23:53 WBC RBC Hgb Hct MCV MCHC RDW Plt Count Lymph % (Auto) [place] % (Auto) Lymph # [place] # Baso # Seg Neutrophils % Seg Neuts % (Manual) Lymphocytes % (Manual) Monocytes % (Manual) Nucleated RBC % Seg Neutrophils # Seg Neutrophils # Man Lymphocytes # (Manual) Monocytes # (Manual) POC ABG pH POC ABG pCO2 POC ABG pO2 Sodium Potassium Chloride Carbon Dioxide BUN Creatinine Glucose POC Glucose 163 H 167 H 142 H Calcium Phosphorus Magnesium AST ALT Alkaline Phosphatase C-Reactive Protein Total Protein Albumin Urine WBC (Auto) Miscellaneous Test 04/18/18 04/18/18 04/18/18 05:59 10:05 12:25 WBC RBC Hgb Hct MCV MCHC RDW Plt Count Lymph % (Auto) [place] % (Auto) Lymph # [place] # Baso # Seg Neutrophils % Seg Neuts % (Manual) Lymphocytes % (Manual) Monocytes % (Manual) Nucleated RBC % Seg Neutrophils # Seg Neutrophils # Man Lymphocytes # (Manual) Monocytes # (Manual) POC ABG pH POC ABG pCO2 POC ABG pO2 Sodium Potassium Chloride Carbon Dioxide BUN Creatinine 0.5 L Glucose 127 H POC Glucose 144 H 171 H Calcium 8.2 L Phosphorus Magnesium AST ALT Alkaline Phosphatase C-Reactive Protein Total Protein Albumin Urine WBC (Auto) Miscellaneous Test 04/18/18 04/18/18 04/19/18 14:54 17:56 00:15 WBC 18.2 H RBC 2.95 L Hgb 8.9 L Hct 29.0 L MCV 98 H MCHC RDW 16.9 H Plt Count Lymph % (Auto) 9.2 L [place] % (Auto) Lymph # [place] # 1.2 H Baso # Seg Neutrophils % 82.7 H Seg Neuts % (Manual) Lymphocytes % (Manual) Monocytes % (Manual) Nucleated RBC % Seg Neutrophils # 15.1 H Seg Neutrophils # Man Lymphocytes # (Manual) Monocytes # (Manual) POC ABG pH POC ABG pCO2 POC ABG pO2 Sodium Potassium Chloride Carbon Dioxide BUN Creatinine Glucose POC Glucose 169 H 148 H Calcium Phosphorus Magnesium AST ALT Alkaline Phosphatase C-Reactive Protein Total Protein Albumin Urine WBC (Auto) Miscellaneous Test 04/19/18 04/19/18 04/19/18 05:21 08:00 08:00 WBC 18.7 H RBC Hgb Hct MCV MCHC RDW Plt Count 531 H Lymph % (Auto) [place] % (Auto) Lymph # [place] # Baso # Seg Neutrophils % Seg Neuts % (Manual) Lymphocytes % (Manual) Monocytes % (Manual) Nucleated RBC % Seg Neutrophils # Seg Neutrophils # Man Lymphocytes # (Manual) Monocytes # (Manual) POC ABG pH POC ABG pCO2 POC ABG pO2 Sodium Potassium Chloride Carbon Dioxide BUN 18 H Creatinine 0.5 L Glucose 141 H POC Glucose 146 H Calcium Phosphorus Magnesium AST ALT 76 H Alkaline Phosphatase 142 H C-Reactive Protein Total Protein Albumin 2.4 L Urine WBC (Auto) Miscellaneous Test 04/19/18 04/19/18 04/20/18 12:12 17:41 00:21 WBC RBC Hgb Hct MCV MCHC RDW Plt Count Lymph % (Auto) [place] % (Auto) Lymph # [place] # Baso # Seg Neutrophils % Seg Neuts % (Manual) Lymphocytes % (Manual) Monocytes % (Manual) Nucleated RBC % Seg Neutrophils # Seg Neutrophils # Man Lymphocytes # (Manual) Monocytes # (Manual) POC ABG pH POC ABG pCO2 POC ABG pO2 Sodium Potassium Chloride Carbon Dioxide BUN Creatinine Glucose POC Glucose 161 H 134 H 159 H Calcium Phosphorus Magnesium AST ALT Alkaline Phosphatase C-Reactive Protein Total Protein Albumin Urine WBC (Auto) Miscellaneous Test 04/20/18 04/20/18 04/20/18 04:00 04:00 07:05 WBC 16.5 H RBC 3.51 L Hgb 9.9 L Hct 30.1 L MCV MCHC RDW Plt Count 530 H Lymph % (Auto) 10.7 L [place] % (Auto) 9.2 H Lymph # [place] # 1.5 H Baso # Seg Neutrophils % 78.5 H Seg Neuts % (Manual) Lymphocytes % (Manual) Monocytes % (Manual) Nucleated RBC % Seg Neutrophils # 13.0 H Seg Neutrophils # Man Lymphocytes # (Manual) Monocytes # (Manual) POC ABG pH POC ABG pCO2 POC ABG pO2 Sodium Potassium Chloride Carbon Dioxide BUN 19 H Creatinine 0.6 L Glucose 185 H POC Glucose 166 H Calcium Phosphorus Magnesium AST ALT Alkaline Phosphatase C-Reactive Protein Total Protein Albumin Urine WBC (Auto) Miscellaneous Test 04/20/18 04/20/18 04/21/18 12:59 19:06 00:17 WBC RBC Hgb Hct MCV MCHC RDW Plt Count Lymph % (Auto) [place] % (Auto) Lymph # [place] # Baso # Seg Neutrophils % Seg Neuts % (Manual) Lymphocytes % (Manual) Monocytes % (Manual) Nucleated RBC % Seg Neutrophils # Seg Neutrophils # Man Lymphocytes # (Manual) Monocytes # (Manual) POC ABG pH POC ABG pCO2 POC ABG pO2 Sodium Potassium Chloride Carbon Dioxide BUN Creatinine Glucose POC Glucose 166 H 170 H 178 H Calcium Phosphorus Magnesium AST ALT Alkaline Phosphatase C-Reactive Protein Total Protein Albumin Urine WBC (Auto) Miscellaneous Test 04/21/18 04/21/18 04/21/18 06:15 06:15 06:39 WBC 15.1 H RBC 3.48 L Hgb 9.8 L Hct 30.2 L MCV MCHC RDW Plt Count 499 H Lymph % (Auto) [place] % (Auto) 8.7 H Lymph # [place] # 1.3 H Baso # 0.2 H Seg Neutrophils % 74.7 H Seg Neuts % (Manual) Lymphocytes % (Manual) Monocytes % (Manual) Nucleated RBC % Seg Neutrophils # 11.3 H Seg Neutrophils # Man Lymphocytes # (Manual) Monocytes # (Manual) POC ABG pH POC ABG pCO2 POC ABG pO2 Sodium Potassium Chloride 108.8 H Carbon Dioxide BUN 18 H Creatinine 0.6 L Glucose 157 H POC Glucose 153 H Calcium 8.0 L Phosphorus Magnesium AST ALT Alkaline Phosphatase C-Reactive Protein Total Protein Albumin Urine WBC (Auto) Miscellaneous Test 04/21/18 04/21/18 11:49 17:07 WBC RBC Hgb Hct MCV MCHC RDW Plt Count Lymph % (Auto) [place] % (Auto) Lymph # [place] # Baso # Seg Neutrophils % Seg Neuts % (Manual) Lymphocytes % (Manual) Monocytes % (Manual) Nucleated RBC % Seg Neutrophils # Seg Neutrophils # Man Lymphocytes # (Manual) Monocytes # (Manual) POC ABG pH POC ABG pCO2 POC ABG pO2 Sodium Potassium Chloride Carbon Dioxide BUN Creatinine Glucose POC Glucose 184 H 163 H Calcium Phosphorus Magnesium AST ALT Alkaline Phosphatase C-Reactive Protein Total Protein Albumin Urine WBC (Auto) Miscellaneous Test Allied health notes reviewed: nursing
[2018-04-21] MEDS: LOVENOX SUB-Q SCH (21:52)
[2018-04-22] MEDS: NORMODYNE IV SCH ×5 (04:48→18:02)
[2018-04-22] MEDS: DILAUDID IV PRN ×4 (04:58→20:48)
[2018-04-22] MEDS: ZOFRAN IV PRN ×2 (04:58→20:36)
[2018-04-22] MEDS: ATIVAN IV PRN (04:59)
[2018-04-22] MEDS: FLAGYL 500 MG/100 ML 500 MG/100 ML BAG IV SCH ×2 (05:02→18:04)
[2018-04-22] MEDS: MAXIPIME/NS 2 GM/100 ML 2 GM/100 ML BAG IV SCH ×3 (06:10→23:18)
[2018-04-22 07:32] LABS: Basophils # (Auto) 0.1 K/mm3 (0.0-0.1); Basophils % (Auto) 0.6 % (0.0-1.8); Eosinophils # (Auto) 0.3 K/mm3 (0.0-0.4); Eosinophils % (Auto) 1.9 % (0.0-4.3); Hematocrit 28.6 % (30.3-42.9); Hemoglobin 9.3 gm/dl (10.1-14.3); Lymphocytes # (Auto) 1.8 K/mm3 (1.2-5.4); Mean Corpuscular HGB Conc 32 % (30-34); Mean Corpuscular Hemoglobin 28 pg (28-32); Mean Corpuscular Volume 88 fl (79-97); Monocytes # (Auto) 1.4 K/mm3 (0.0-0.8); Monocytes % (Auto) 10.1 % (0.0-7.3); Platelet Count 460 K/mm3 (140-440); Red Blood Count 3.26 M/mm3 (3.65-5.03)
[2018-04-22 08:00] LABS: BUN/Creatinine Ratio 32; Blood Urea Nitrogen 19 mg/dL (7-17); Calcium 8.4 mg/dL (8.4-10.2); Hemolysis Index 0
--- NOTE | 2018-04-22 08:45 | XRay Report ---
AP CHEST: HISTORY: Followup respiratory failure The nasogastric tube has been removed since yesterday's exam. The right arm PICC and a neural stimulator device are unchanged. Mild cardiomegaly and central congestion are stable. Small left pleural effusion has nearly resolved. The lungs are generally clear. IMPRESSION: No acute process.
[2018-04-22] MEDS: PROTONIX IV SCH ×2 (09:30→21:47)
[2018-04-22] MEDS: BROVANA NEBU IH SCH ×2 (09:55→20:17)
[2018-04-22] MEDS: PULMICORT IH SCH ×2 (09:55→20:16)
[2018-04-22] MEDS: SODIUM CHLORIDE FLUSH SYRINGE 10 ML IV SCH ×2 (15:26→21:52)
--- NOTE | 2018-04-22 16:58 | Progress Note ---
Assessment and Plan 58 y.o. f s/p lap sleeve gastrectomy with hiatal hernia repair and partial fundoplication 03/30, presents to ER with abdominal pain, now s/p dx lap, abdominal washout, repair of gastric perforation and placement of drains , s/p abdominal pigtail placement x 2 Neuro: dilualdid, morphine prn. toradol for pain control. Ativan prn for agitation for hx of anxiety baseline Cardio: tachycardia- improved with pain control and improving/resolving sepsis - ->resolved hx of HTN: enalaril IV, metop , clonidine patch -hospitalist consult Pulm: pulm toilet per pulm Left pleural effusion: if pulm function continues to improve, she may not require the drainage Appreciate pulmonary consult -IS CXr 04/09: left effusion, cardiomeg. no pulm congestion CT chest: no PE GI: npo, NG to low wall intermit. sunction. No manipulation of NG. NO ice chips no meds. monitor drain output -CT abd/pelvis: fluid collection anterior to liver, leak persistent. s/p IR drain x 2. Nutrition: PIcc line for tpn. -monitor lytes ID: gastric perf. vanco-complted flagyl cefipime most recent surgical drain: staph aureus -umbilical incision: change packing daily peritoneal cultures: serratia Pneumonia: vanco . Dosing per pharm. -ID consult appreciated Fever continues- off/on. f/u cultures. leukocytosis If fevers continues, f/u CT abd. pelvis --> collections --> 04/20: no further fevers /Lytes: f/u am labs. monitor urine out. DVT proph: lovenox scds GI proph: protonix Out of bed to chair/ PT Dispo: once the LUQ drain is less white/yellow, has less output. and the NG is less white thick fluid and leukocytosis improved-> more likely of perf healed -- > will repeat CT with iv and po contrast. If leak persists will discuss sleeve stent with pt and contact GI. -Goal of CT in the next 1-2days Subjective Narrative: NG out overnight. Pt has nausea but controlled with medication. off and on abd. pain . no distinct area. +ambulation. NO vomiting. denies fever or chills. pigtail luq- 20cc purulent white thick fluid drained at bedside. Objective Vital Signs - 12hr 04/22/18 04/22/18 04/22/18 09:30 09:40 10:00 Temperature 98.4 F Pulse Rate 91 H Pulse Rate [ 84 91 H Anterior Bilateral] Respiratory 20 Rate Respiratory 22 17 Rate [Anterior Bilateral] Blood Pressure 117/58 [Left] O2 Sat by Pulse 99 Oximetry 04/22/18 10:30 Temperature Pulse Rate Pulse Rate [ 88 Anterior Bilateral] Respiratory Rate Respiratory 19 Rate [Anterior Bilateral] Blood Pressure [Left] O2 Sat by Pulse Oximetry - General physical appearance well developed, well nourished, no distress - Respiratory normal expansion, clear to auscultation - Abdomen soft, other (nd no ) - Integumentary no rash, no growths - Neurologic normal coordination, normal sensation - Musculoskeletal normal posture - Psychiatric oriented to time, oriented to person, oriented to place - Labs 04/24/18 08:30 04/24/18 08:30 Diabetes panel 04/22/18 Range/Units 07:00 Sodium 143 (137-145) mmol/L Potassium 4.3 (3.6-5.0) mmol/L Chloride 104.5 (98-107) mmol/L Carbon Dioxide 26 (22-30) mmol/L BUN 19 H (7-17) mg/dL Creatinine 0.6 L (0.7-1.2) mg/dL Glucose 159 H (65-100) mg/dL Calcium 8.4 (8.4-10.2) mg/dL Calcium panel 04/22/18 Range/Units 07:00 Calcium 8.4 (8.4-10.2) mg/dL Phosphorus 3.70 (2.5-4.5) mg/dL Pituitary panel 04/22/18 Range/Units 07:00 Sodium 143 (137-145) mmol/L Potassium 4.3 (3.6-5.0) mmol/L Chloride 104.5 (98-107) mmol/L Carbon Dioxide 26 (22-30) mmol/L BUN 19 H (7-17) mg/dL Creatinine 0.6 L (0.7-1.2) mg/dL Glucose 159 H (65-100) mg/dL Calcium 8.4 (8.4-10.2) mg/dL Adrenal panel 04/22/18 Range/Units 07:00 Sodium 143 (137-145) mmol/L Potassium 4.3 (3.6-5.0) mmol/L Chloride 104.5 (98-107) mmol/L Carbon Dioxide 26 (22-30) mmol/L BUN 19 H (7-17) mg/dL Creatinine 0.6 L (0.7-1.2) mg/dL Glucose 159 H (65-100) mg/dL Calcium 8.4 (8.4-10.2) mg/dL
[2018-04-22] MEDS ORDERED: TPN ADULT 1,800 ML IV SCH (20:00)
[2018-04-22] MEDS: LOVENOX SUB-Q SCH (21:48)
--- NOTE | 2018-04-22 23:11 | Progress Note ---
Assessment and Plan Patient resting on room air. No complaint of chest pain, shortness of breath or cough. O2 saturation 96% on room air. - Patient Problems (1) Pneumoperitoneum Current Visit: Yes Status: Acute Plan to address problem: Appears improved. Last chest xray not reported pneumomediastinum. (2) Asthma Current Visit: Yes Status: Chronic Qualifiers: Asthma severity: unspecified severity Plan to address problem: Brovanna/Budesonide aerosol treatments q 12 hours. Albuterol inhaler 2 puffs po qid PRN for shortness of breath. Continue S/C Lovenox. Continue Protonix. (3) Sepsis Current Visit: Yes Status: Acute Qualifiers: Sepsis type: sepsis due to unspecified organism Qualified Code(s): A41.9 - Sepsis, unspecified organism Plan to address problem: Patient is on cefepime and Metronidazole. Subjective Date of service: 04/22/18 Principal diagnosis: Sepsis Syndrome; Acute Hypoxemic Resp Failure; Acute Encephalopathy Interval history: Patient resting on room air. No complaint of chest pain, shortness of breath or cough. O2 saturation 96% on room air. Objective Vital Signs - 12hr 04/22/18 04/22/18 04/22/18 16:30 18:02 19:38 Temperature 98.8 F 98.9 F Pulse Rate 103 H 102 H Pulse Rate [ Anterior Bilateral] Respiratory 20 20 Rate Respiratory Rate [Anterior Bilateral] Blood Pressure 112/75 147/79 Blood Pressure 112/75 [Left] O2 Sat by Pulse 98 96 Oximetry 04/22/18 04/22/18 20:18 20:48 Temperature Pulse Rate Pulse Rate [ 103 H Anterior Bilateral] Respiratory 17 Rate Respiratory 18 Rate [Anterior Bilateral] Blood Pressure Blood Pressure [Left] O2 Sat by Pulse Oximetry Constitutional: no acute distress, alert Eyes: non-icteric ENT: oropharynx moist, other (no thyromegaly) Neck: supple, no lymphadenopathy, no JVD, other (large neck circumference) Effort: mildly labored Ascultation: Bilateral: diminished breath sounds, rhonchi (scant in bases) Percussion: Bilateral: not dull Cardiovascular: regular rate and rhythm, other (No R/M) Gastrointestinal: hypoactive bowel sounds, soft, tender (mild), non-distended, other (no palpable HSM) Integumentary: normal Extremities: no cyanosis, no edema, pulses normal, no ischemia or petechiae Neurologic: normal mental status, non-focal exam (grossly), pupils equal and round, CN II-XII normal, motor strength normal and Psychiatric: mood appropriate, affect normal CBC and BMP: 04/22/18 07:00 04/22/18 07:00 ABG, PT/INR, D-dimer: ABG POC ABG pH 7.519 (7.35-7.45) H 04/10/18 12:59 POC ABG pCO2 29.3 (35-45) L 04/10/18 12:59 POC ABG pO2 63 (80-105) L 04/10/18 12:59 POC ABG HCO3 23.9 04/10/18 12:59 POC ABG Total CO2 25 04/10/18 12:59 POC ABG O2 Sat 94 04/10/18 12:59 PT/INR, D-dimer PT 13.5 Sec. (12.2-14.9) 04/07/18 09:41 INR 0.98 (0.87-1.13) 04/07/18 09:41 Abnormal lab findings: Abnormal Labs 04/07/18 04/07/18 04/07/18 00:05 00:05 09:41 WBC 18.4 H 21.3 H RBC Hgb Hct MCV MCHC RDW Plt Count Lymph % (Auto) 4.5 L Davison % (Auto) Lymph # 0.8 L Davison # 1.2 H Baso # Seg Neutrophils % 88.9 H Seg Neuts % (Manual) 85.0 H Lymphocytes % (Manual) 4.0 L Monocytes % (Manual) Nucleated RBC % Seg Neutrophils # 16.4 H Seg Neutrophils # Man 18.1 H Lymphocytes # (Manual) 0.9 L Monocytes # (Manual) 1.1 H POC ABG pH POC ABG pCO2 POC ABG pO2 Sodium Potassium Chloride Carbon Dioxide BUN Creatinine Glucose 123 H POC Glucose Calcium 8.0 L Phosphorus Magnesium 1.60 L AST 59 H ALT Alkaline Phosphatase C-Reactive Protein Total Protein Albumin 2.9 L Urine WBC (Auto) Miscellaneous Test 04/07/18 04/08/18 04/08/18 09:41 00:20 10:25 WBC 19.2 H RBC Hgb Hct MCV MCHC RDW Plt Count Lymph % (Auto) 5.4 L Davison % (Auto) Lymph # 1.0 L Davison # 1.1 H Baso # Seg Neutrophils % 88.9 H Seg Neuts % (Manual) Lymphocytes % (Manual) Monocytes % (Manual) Nucleated RBC % Seg Neutrophils # 17.1 H Seg Neutrophils # Man Lymphocytes # (Manual) Monocytes # (Manual) POC ABG pH POC ABG pCO2 POC ABG pO2 Sodium Potassium 3.3 L Chloride 95.1 L Carbon Dioxide 21 L BUN Creatinine Glucose 113 H POC Glucose Calcium Phosphorus Magnesium AST ALT Alkaline Phosphatase C-Reactive Protein Total Protein Albumin 3.6 L Urine WBC (Auto) 45.0 H Miscellaneous Test 04/08/18 04/08/18 04/08/18 10:25 13:33 23:53 WBC 12.8 H RBC Hgb Hct MCV MCHC RDW Plt Count Lymph % (Auto) Dav[place] % (Auto) Lymph # Davison # Baso # Seg Neutrophils % Seg Neuts % (Manual) 97.0 H Lymphocytes % (Manual) 2.0 L Monocytes % (Manual) Nucleated RBC % Seg Neutrophils # Seg Neutrophils # Man 12.4 H Lymphocytes # (Manual) 0.3 L Monocytes # (Manual) POC ABG pH POC ABG pCO2 POC ABG pO2 Sodium Potassium 3.5 L Chloride Carbon Dioxide BUN Creatinine Glucose 123 H POC Glucose Calcium 7.9 L Phosphorus Magnesium AST 53 H ALT Alkaline Phosphatase C-Reactive Protein 52.00 H Total Protein 6.1 L Albumin 2.7 L Urine WBC (Auto) Miscellaneous Test 04/09/18 04/09/18 04/09/18 04:20 04:20 13:38 WBC 16.2 H RBC Hgb Hct MCV MCHC RDW Plt Count Lymph % (Auto) Dav[place] % (Auto) Lymph # Davison # Baso # Seg Neutrophils % Seg Neuts % (Manual) 89.0 H Lymphocytes % (Manual) 4.0 L Monocytes % (Manual) Nucleated RBC % Seg Neutrophils # Seg Neutrophils # Man 14.4 H Lymphocytes # (Manual) 0.6 L Monocytes # (Manual) POC ABG pH 7.494 H POC ABG pCO2 31.6 L POC ABG pO2 68 L Sodium Potassium 3.5 L Chloride Carbon Dioxide BUN Creatinine 0.6 L Glucose 117 H POC Glucose Calcium 7.9 L Phosphorus 1.50 L D Magnesium AST ALT Alkaline Phosphatase C-Reactive Protein Total Protein 5.6 L Albumin 2.9 L Urine WBC (Auto) Miscellaneous Test 04/09/18 04/09/18 04/09/18 18:25 21:45 21:45 WBC 21.3 H RBC 3.62 L Hgb Hct MCV MCHC 35 H RDW Plt Count Lymph % (Auto) Dav[place] % (Auto) Lymph # Davison # Baso # Seg Neutrophils % Seg Neuts % (Manual) 90.0 H Lymphocytes % (Manual) 6.0 L Monocytes % (Manual) Nucleated RBC % 1.0 H Seg Neutrophils # Seg Neutrophils # Man 19.2 H Lymphocytes # (Manual) Monocytes # (Manual) 0.9 H POC ABG pH POC ABG pCO2 POC ABG pO2 Sodium Potassium Chloride Carbon Dioxide BUN 5 L Creatinine 0.5 L Glucose 134 H POC Glucose 155 H Calcium 7.9 L Phosphorus 2.20 L D Magnesium AST ALT Alkaline Phosphatase C-Reactive Protein Total Protein Albumin Urine WBC (Auto) Miscellaneous Test 04/09/18 04/10/18 04/10/18 23:38 04:07 04:07 WBC 20.2 H RBC 3.38 L Hgb 9.4 L Hct 28.9 L MCV MCHC RDW Plt Count Lymph % (Auto) Dav[place] % (Auto) Lymph # Davison # Baso # Seg Neutrophils % Seg Neuts % (Manual) Lymphocytes % (Manual) 6.0 L Monocytes % (Manual) Nucleated RBC % Seg Neutrophils # Seg Neutrophils # Man 10.7 H Lymphocytes # (Manual) Monocytes # (Manual) POC ABG pH POC ABG pCO2 POC ABG pO2 Sodium Potassium Chloride Carbon Dioxide BUN 6 L Creatinine 0.6 L Glucose 176 H POC Glucose 160 H Calcium 7.7 L Phosphorus Magnesium AST ALT Alkaline Phosphatase C-Reactive Protein Total Protein Albumin Urine WBC (Auto) Miscellaneous Test 04/10/18 04/10/18 04/10/18 05:29 11:55 12:59 WBC RBC Hgb Hct MCV MCHC RDW Plt Count Lymph % (Auto) [place] % (Auto) Lymph # Dav[place] # Baso # Seg Neutrophils % Seg Neuts % (Manual) Lymphocytes % (Manual) Monocytes % (Manual) Nucleated RBC % Seg Neutrophils # Seg Neutrophils # Man Lymphocytes # (Manual) Monocytes # (Manual) POC ABG pH 7.519 H POC ABG pCO2 29.3 L POC ABG pO2 63 L Sodium Potassium Chloride Carbon Dioxide BUN Creatinine Glucose POC Glucose 171 H 194 H Calcium Phosphorus Magnesium AST ALT Alkaline Phosphatase C-Reactive Protein Total Protein Albumin Urine WBC (Auto) Miscellaneous Test 04/10/18 04/10/18 04/10/18 18:11 18:28 18:28 WBC 22.7 H RBC 3.62 L Hgb Hct MCV MCHC RDW Plt Count Lymph % (Auto) Dav[place] % (Auto) Lymph # Dav[place] # Baso # Seg Neutrophils % Seg Neuts % (Manual) 84.0 H Lymphocytes % (Manual) 7.0 L Monocytes % (Manual) 8.0 H Nucleated RBC % Seg Neutrophils # Seg Neutrophils # Man 19.1 H Lymphocytes # (Manual) Monocytes # (Manual) 1.8 H POC ABG pH POC ABG pCO2 POC ABG pO2 Sodium Potassium Chloride Carbon Dioxide BUN Creatinine Glucose POC Glucose 118 H Calcium Phosphorus Magnesium AST ALT Alkaline Phosphatase C-Reactive Protein 45.20 H Total Protein Albumin Urine WBC (Auto) Miscellaneous Test 04/10/18 04/10/18 04/11/18 18:28 23:45 03:35 WBC 20.9 H RBC 3.54 L Hgb 10.0 L Hct MCV MCHC RDW Plt Count Lymph % (Auto) Dav[place] % (Auto) Lymph # Dav[place] # Baso # Seg Neutrophils % Seg Neuts % (Manual) 80.0 H Lymphocytes % (Manual) 6.0 L Monocytes % (Manual) Nucleated RBC % Seg Neutrophils # Seg Neutrophils # Man 16.7 H Lymphocytes # (Manual) Monocytes # (Manual) POC ABG pH POC ABG pCO2 POC ABG pO2 Sodium Potassium 3.5 L Chloride Carbon Dioxide BUN 5 L Creatinine 0.5 L Glucose 108 H POC Glucose 149 H Calcium 8.3 L Phosphorus Magnesium AST ALT Alkaline Phosphatase C-Reactive Protein Total Protein Albumin Urine WBC (Auto) Miscellaneous Test 04/11/18 04/11/18 04/11/18 03:35 06:17 11:29 WBC RBC Hgb Hct MCV MCHC RDW Plt Count Lymph % (Auto) Dav[place] % (Auto) Lymph # Dav[place] # Baso # Seg Neutrophils % Seg Neuts % (Manual) Lymphocytes % (Manual) Monocytes % (Manual) Nucleated RBC % Seg Neutrophils # Seg Neutrophils # Man Lymphocytes # (Manual) Monocytes # (Manual) POC ABG pH POC ABG pCO2 POC ABG pO2 Sodium Potassium Chloride Carbon Dioxide BUN Creatinine 0.5 L Glucose 143 H POC Glucose 155 H 158 H Calcium 8.2 L Phosphorus Magnesium AST ALT Alkaline Phosphatase C-Reactive Protein Total Protein 6.0 L Albumin 2.2 L Urine WBC (Auto) Miscellaneous Test 04/11/18 04/11/18 04/12/18 18:13 23:51 05:29 WBC RBC Hgb Hct MCV MCHC RDW Plt Count Lymph % (Auto) [place] % (Auto) Lymph # [place] # Baso # Seg Neutrophils % Seg Neuts % (Manual) Lymphocytes % (Manual) Monocytes % (Manual) Nucleated RBC % Seg Neutrophils # Seg Neutrophils # Man Lymphocytes # (Manual) Monocytes # (Manual) POC ABG pH POC ABG pCO2 POC ABG pO2 Sodium Potassium Chloride Carbon Dioxide BUN Creatinine Glucose POC Glucose 135 H 143 H 150 H Calcium Phosphorus Magnesium AST ALT Alkaline Phosphatase C-Reactive Protein Total Protein Albumin Urine WBC (Auto) Miscellaneous Test 04/12/18 04/12/18 04/13/18 05:40 05:40 00:32 WBC 18.0 H RBC 3.34 L Hgb 9.5 L Hct 28.9 L MCV MCHC RDW Plt Count Lymph % (Auto) 7.4 L Dav[place] % (Auto) 10.8 H Lymph # Dav[place] # 1.9 H Baso # Seg Neutrophils % 81.1 H Seg Neuts % (Manual) Lymphocytes % (Manual) Monocytes % (Manual) Nucleated RBC % Seg Neutrophils # 14.6 H Seg Neutrophils # Man Lymphocytes # (Manual) Monocytes # (Manual) POC ABG pH POC ABG pCO2 POC ABG pO2 Sodium Potassium Chloride 107.7 H Carbon Dioxide 21 L BUN Creatinine 0.6 L Glucose 140 H POC Glucose 144 H Calcium Phosphorus Magnesium AST ALT Alkaline Phosphatase C-Reactive Protein Total Protein Albumin Urine WBC (Auto) Miscellaneous Test 04/13/18 04/13/18 04/13/18 04:20 04:20 04:20 WBC 18.1 H RBC 3.52 L Hgb 9.8 L Hct 30.1 L MCV MCHC RDW Plt Count Lymph % (Auto) 11.1 L Dav[place] % (Auto) 13.6 H Lymph # Dav[place] # 2.5 H Baso # Seg Neutrophils % 74.4 H Seg Neuts % (Manual) Lymphocytes % (Manual) Monocytes % (Manual) Nucleated RBC % Seg Neutrophils # 13.4 H Seg Neutrophils # Man Lymphocytes # (Manual) Monocytes # (Manual) POC ABG pH POC ABG pCO2 POC ABG pO2 Sodium Potassium Chloride Carbon Dioxide BUN Creatinine 0.5 L Glucose 142 H POC Glucose Calcium Phosphorus Magnesium AST ALT Alkaline Phosphatase C-Reactive Protein 29.60 H Total Protein Albumin Urine WBC (Auto) Miscellaneous Test 04/13/18 04/13/18 04/13/18 05:35 13:37 23:50 WBC RBC Hgb Hct MCV MCHC RDW Plt Count Lymph % (Auto) Dav[place] % (Auto) Lymph # Dav[place] # Baso # Seg Neutrophils % Seg Neuts % (Manual) Lymphocytes % (Manual) Monocytes % (Manual) Nucleated RBC % Seg Neutrophils # Seg Neutrophils # Man Lymphocytes # (Manual) Monocytes # (Manual) POC ABG pH POC ABG pCO2 POC ABG pO2 Sodium Potassium Chloride Carbon Dioxide BUN Creatinine Glucose POC Glucose 142 H 160 H Calcium Phosphorus Magnesium AST ALT Alkaline Phosphatase C-Reactive Protein Total Protein Albumin Urine WBC (Auto) Miscellaneous Test Flexitest 1 H 04/14/18 04/14/18 04/14/18 04:00 04:00 05:29 WBC 22.1 H RBC 3.59 L Hgb 9.9 L Hct MCV MCHC RDW Plt Count Lymph % (Auto) Dav[place] % (Auto) Lymph # Dav[place] # Baso # Seg Neutrophils % Seg Neuts % (Manual) 73.0 H Lymphocytes % (Manual) 9.0 L Monocytes % (Manual) 11.0 H Nucleated RBC % Seg Neutrophils # Seg Neutrophils # Man 16.1 H Lymphocytes # (Manual) Monocytes # (Manual) 2.4 H POC ABG pH POC ABG pCO2 POC ABG pO2 Sodium Potassium Chloride Carbon Dioxide BUN Creatinine Glucose 155 H POC Glucose 133 H Calcium Phosphorus Magnesium 2.50 H AST ALT Alkaline Phosphatase C-Reactive Protein Total Protein Albumin Urine WBC (Auto) Miscellaneous Test 04/14/18 04/14/18 04/14/18 12:47 16:01 23:42 WBC RBC Hgb Hct MCV MCHC RDW Plt Count Lymph % (Auto) Dav[place] % (Auto) Lymph # Dav[place] # Baso # Seg Neutrophils % Seg Neuts % (Manual) Lymphocytes % (Manual) Monocytes % (Manual) Nucleated RBC % Seg Neutrophils # Seg Neutrophils # Man Lymphocytes # (Manual) Monocytes # (Manual) POC ABG pH POC ABG pCO2 POC ABG pO2 Sodium Potassium Chloride Carbon Dioxide BUN Creatinine Glucose POC Glucose 183 H 153 H 172 H Calcium Phosphorus Magnesium AST ALT Alkaline Phosphatase C-Reactive Protein Total Protein Albumin Urine WBC (Auto) Miscellaneous Test 04/15/18 04/15/18 04/15/18 04:42 04:42 05:49 WBC 21.5 H RBC 3.37 L Hgb 9.4 L Hct 28.9 L MCV MCHC RDW Plt Count 490 H Lymph % (Auto) Dav[place] % (Auto) Lymph # Dav[place] # Baso # Seg Neutrophils % Seg Neuts % (Manual) 77.0 H Lymphocytes % (Manual) 7.0 L Monocytes % (Manual) 10.0 H Nucleated RBC % Seg Neutrophils # Seg Neutrophils # Man 16.6 H Lymphocytes # (Manual) Monocytes # (Manual) 2.2 H POC ABG pH POC ABG pCO2 POC ABG pO2 Sodium Potassium 3.4 L Chloride 107.5 H Carbon Dioxide 21 L BUN Creatinine Glucose 165 H POC Glucose 147 H Calcium 8.0 L Phosphorus Magnesium 2.40 H AST ALT Alkaline Phosphatase C-Reactive Protein Total Protein Albumin Urine WBC (Auto) Miscellaneous Test 04/15/18 04/15/18 04/16/18 11:17 17:35 00:26 WBC RBC Hgb Hct MCV MCHC RDW Plt Count Lymph % (Auto) Dav[place] % (Auto) Lymph # Dav[place] # Baso # Seg Neutrophils % Seg Neuts % (Manual) Lymphocytes % (Manual) Monocytes % (Manual) Nucleated RBC % Seg Neutrophils # Seg Neutrophils # Man Lymphocytes # (Manual) Monocytes # (Manual) POC ABG pH POC ABG pCO2 POC ABG pO2 Sodium Potassium Chloride Carbon Dioxide BUN Creatinine Glucose POC Glucose 119 H 169 H 176 H Calcium Phosphorus Magnesium AST ALT Alkaline Phosphatase C-Reactive Protein Total Protein Albumin Urine WBC (Auto) Miscellaneous Test 04/16/18 04/16/18 04/16/18 06:12 06:19 06:21 WBC 20.7 H RBC 3.25 L Hgb 9.0 L Hct MCV MCHC 29 L RDW 16.7 H Plt Count 498 H Lymph % (Auto) Dav[place] % (Auto) Lymph # Dav[place] # Baso # Seg Neutrophils % Seg Neuts % (Manual) 88.0 H Lymphocytes % (Manual) 5.0 L Monocytes % (Manual) Nucleated RBC % Seg Neutrophils # Seg Neutrophils # Man 18.2 H Lymphocytes # (Manual) 1.0 L Monocytes # (Manual) POC ABG pH POC ABG pCO2 POC ABG pO2 Sodium Potassium Chloride Carbon Dioxide BUN Creatinine Glucose POC Glucose > 500 H 493 H Calcium Phosphorus Magnesium AST ALT Alkaline Phosphatase C-Reactive Protein Total Protein Albumin Urine WBC (Auto) Miscellaneous Test 04/16/18 04/16/18 04/16/18 06:24 08:52 14:05 WBC RBC Hgb Hct MCV MCHC RDW Plt Count Lymph % (Auto) Dav[place] % (Auto) Lymph # Dav[place] # Baso # Seg Neutrophils % Seg Neuts % (Manual) Lymphocytes % (Manual) Monocytes % (Manual) Nucleated RBC % Seg Neutrophils # Seg Neutrophils # Man Lymphocytes # (Manual) Monocytes # (Manual) POC ABG pH POC ABG pCO2 POC ABG pO2 Sodium Potassium 3.4 L Chloride Carbon Dioxide BUN Creatinine 0.5 L Glucose 166 H POC Glucose 173 H 196 H Calcium 8.2 L Phosphorus Magnesium AST ALT Alkaline Phosphatase C-Reactive Protein Total Protein Albumin Urine WBC (Auto) Miscellaneous Test 04/16/18 04/17/18 04/17/18 17:17 00:06 04:50 WBC 16.0 H RBC 3.12 L Hgb 8.7 L Hct 29.0 L MCV MCHC RDW 16.2 H Plt Count 455 H Lymph % (Auto) 9.4 L Davison % (Auto) 7.7 H Lymph # [place] # 1.2 H Baso # Seg Neutrophils % 81.9 H Seg Neuts % (Manual) Lymphocytes % (Manual) Monocytes % (Manual) Nucleated RBC % Seg Neutrophils # 13.1 H Seg Neutrophils # Man Lymphocytes # (Manual) Monocytes # (Manual) POC ABG pH POC ABG pCO2 POC ABG pO2 Sodium Potassium Chloride Carbon Dioxide BUN Creatinine Glucose POC Glucose 189 H 190 H Calcium Phosphorus Magnesium AST ALT Alkaline Phosphatase C-Reactive Protein Total Protein Albumin Urine WBC (Auto) Miscellaneous Test 04/17/18 04/17/18 04/17/18 04:50 05:38 07:17 WBC RBC Hgb Hct MCV MCHC RDW Plt Count Lymph % (Auto) [place] % (Auto) Lymph # [place] # Baso # Seg Neutrophils % Seg Neuts % (Manual) Lymphocytes % (Manual) Monocytes % (Manual) Nucleated RBC % Seg Neutrophils # Seg Neutrophils # Man Lymphocytes # (Manual) Monocytes # (Manual) POC ABG pH POC ABG pCO2 POC ABG pO2 Sodium 136 L Potassium 3.4 L Chloride 96.9 L Carbon Dioxide BUN Creatinine 0.6 L Glucose 167 H POC Glucose 190 H Calcium 7.6 L 8.0 L Phosphorus Magnesium AST ALT Alkaline Phosphatase C-Reactive Protein Total Protein Albumin Urine WBC (Auto) Miscellaneous Test 04/17/18 04/17/18 04/17/18 11:50 18:37 23:53 WBC RBC Hgb Hct MCV MCHC RDW Plt Count Lymph % (Auto) [place] % (Auto) Lymph # [place] # Baso # Seg Neutrophils % Seg Neuts % (Manual) Lymphocytes % (Manual) Monocytes % (Manual) Nucleated RBC % Seg Neutrophils # Seg Neutrophils # Man Lymphocytes # (Manual) Monocytes # (Manual) POC ABG pH POC ABG pCO2 POC ABG pO2 Sodium Potassium Chloride Carbon Dioxide BUN Creatinine Glucose POC Glucose 163 H 167 H 142 H Calcium Phosphorus Magnesium AST ALT Alkaline Phosphatase C-Reactive Protein Total Protein Albumin Urine WBC (Auto) Miscellaneous Test 04/18/18 04/18/18 04/18/18 05:59 10:05 12:25 WBC RBC Hgb Hct MCV MCHC RDW Plt Count Lymph % (Auto) [place] % (Auto) Lymph # [place] # Baso # Seg Neutrophils % Seg Neuts % (Manual) Lymphocytes % (Manual) Monocytes % (Manual) Nucleated RBC % Seg Neutrophils # Seg Neutrophils # Man Lymphocytes # (Manual) Monocytes # (Manual) POC ABG pH POC ABG pCO2 POC ABG pO2 Sodium Potassium Chloride Carbon Dioxide BUN Creatinine 0.5 L Glucose 127 H POC Glucose 144 H 171 H Calcium 8.2 L Phosphorus Magnesium AST ALT Alkaline Phosphatase C-Reactive Protein Total Protein Albumin Urine WBC (Auto) Miscellaneous Test 04/18/18 04/18/18 04/19/18 14:54 17:56 00:15 WBC 18.2 H RBC 2.95 L Hgb 8.9 L Hct 29.0 L MCV 98 H MCHC RDW 16.9 H Plt Count Lymph % (Auto) 9.2 L Dav[place] % (Auto) Lymph # Dav[place] # 1.2 H Baso # Seg Neutrophils % 82.7 H Seg Neuts % (Manual) Lymphocytes % (Manual) Monocytes % (Manual) Nucleated RBC % Seg Neutrophils # 15.1 H Seg Neutrophils # Man Lymphocytes # (Manual) Monocytes # (Manual) POC ABG pH POC ABG pCO2 POC ABG pO2 Sodium Potassium Chloride Carbon Dioxide BUN Creatinine Glucose POC Glucose 169 H 148 H Calcium Phosphorus Magnesium AST ALT Alkaline Phosphatase C-Reactive Protein Total Protein Albumin Urine WBC (Auto) Miscellaneous Test 04/19/18 04/19/18 04/19/18 05:21 08:00 08:00 WBC 18.7 H RBC Hgb Hct MCV MCHC RDW Plt Count 531 H Lymph % (Auto) [place] % (Auto) Lymph # [place] # Baso # Seg Neutrophils % Seg Neuts % (Manual) Lymphocytes % (Manual) Monocytes % (Manual) Nucleated RBC % Seg Neutrophils # Seg Neutrophils # Man Lymphocytes # (Manual) Monocytes # (Manual) POC ABG pH POC ABG pCO2 POC ABG pO2 Sodium Potassium Chloride Carbon Dioxide BUN 18 H Creatinine 0.5 L Glucose 141 H POC Glucose 146 H Calcium Phosphorus Magnesium AST ALT 76 H Alkaline Phosphatase 142 H C-Reactive Protein Total Protein Albumin 2.4 L Urine WBC (Auto) Miscellaneous Test 04/19/18 04/19/18 04/20/18 12:12 17:41 00:21 WBC RBC Hgb Hct MCV MCHC RDW Plt Count Lymph % (Auto) [place] % (Auto) Lymph # [place] # Baso # Seg Neutrophils % Seg Neuts % (Manual) Lymphocytes % (Manual) Monocytes % (Manual) Nucleated RBC % Seg Neutrophils # Seg Neutrophils # Man Lymphocytes # (Manual) Monocytes # (Manual) POC ABG pH POC ABG pCO2 POC ABG pO2 Sodium Potassium Chloride Carbon Dioxide BUN Creatinine Glucose POC Glucose 161 H 134 H 159 H Calcium Phosphorus Magnesium AST ALT Alkaline Phosphatase C-Reactive Protein Total Protein Albumin Urine WBC (Auto) Miscellaneous Test 04/20/18 04/20/18 04/20/18 04:00 04:00 07:05 WBC 16.5 H RBC 3.51 L Hgb 9.9 L Hct 30.1 L MCV MCHC RDW Plt Count 530 H Lymph % (Auto) 10.7 L [place] % (Auto) 9.2 H Lymph # [place] # 1.5 H Baso # Seg Neutrophils % 78.5 H Seg Neuts % (Manual) Lymphocytes % (Manual) Monocytes % (Manual) Nucleated RBC % Seg Neutrophils # 13.0 H Seg Neutrophils # Man Lymphocytes # (Manual) Monocytes # (Manual) POC ABG pH POC ABG pCO2 POC ABG pO2 Sodium Potassium Chloride Carbon Dioxide BUN 19 H Creatinine 0.6 L Glucose 185 H POC Glucose 166 H Calcium Phosphorus Magnesium AST ALT Alkaline Phosphatase C-Reactive Protein Total Protein Albumin Urine WBC (Auto) Miscellaneous Test 04/20/18 04/20/18 04/21/18 12:59 19:06 00:17 WBC RBC Hgb Hct MCV MCHC RDW Plt Count Lymph % (Auto) [place] % (Auto) Lymph # [place] # Baso # Seg Neutrophils % Seg Neuts % (Manual) Lymphocytes % (Manual) Monocytes % (Manual) Nucleated RBC % Seg Neutrophils # Seg Neutrophils # Man Lymphocytes # (Manual) Monocytes # (Manual) POC ABG pH POC ABG pCO2 POC ABG pO2 Sodium Potassium Chloride Carbon Dioxide BUN Creatinine Glucose POC Glucose 166 H 170 H 178 H Calcium Phosphorus Magnesium AST ALT Alkaline Phosphatase C-Reactive Protein Total Protein Albumin Urine WBC (Auto) Miscellaneous Test 04/21/18 04/21/18 04/21/18 06:15 06:15 06:39 WBC 15.1 H RBC 3.48 L Hgb 9.8 L Hct 30.2 L MCV MCHC RDW Plt Count 499 H Lymph % (Auto) [place] % (Auto) 8.7 H Lymph # [place] # 1.3 H Baso # 0.2 H Seg Neutrophils % 74.7 H Seg Neuts % (Manual) Lymphocytes % (Manual) Monocytes % (Manual) Nucleated RBC % Seg Neutrophils # 11.3 H Seg Neutrophils # Man Lymphocytes # (Manual) Monocytes # (Manual) POC ABG pH POC ABG pCO2 POC ABG pO2 Sodium Potassium Chloride 108.8 H Carbon Dioxide BUN 18 H Creatinine 0.6 L Glucose 157 H POC Glucose 153 H Calcium 8.0 L Phosphorus Magnesium AST ALT Alkaline Phosphatase C-Reactive Protein Total Protein Albumin Urine WBC (Auto) Miscellaneous Test 04/21/18 04/21/18 04/21/18 11:49 17:07 22:07 WBC RBC Hgb Hct MCV MCHC RDW Plt Count Lymph % (Auto) [place] % (Auto) Lymph # [place] # Baso # Seg Neutrophils % Seg Neuts % (Manual) Lymphocytes % (Manual) Monocytes % (Manual) Nucleated RBC % Seg Neutrophils # Seg Neutrophils # Man Lymphocytes # (Manual) Monocytes # (Manual) POC ABG pH POC ABG pCO2 POC ABG pO2 Sodium Potassium Chloride Carbon Dioxide BUN Creatinine Glucose POC Glucose 184 H 163 H 169 H Calcium Phosphorus Magnesium AST ALT Alkaline Phosphatase C-Reactive Protein Total Protein Albumin Urine WBC (Auto) Miscellaneous Test 04/22/18 04/22/18 04/22/18 07:00 07:00 08:52 WBC 14.0 H RBC 3.26 L Hgb 9.3 L Hct 28.6 L MCV MCHC RDW Plt Count 460 H Lymph % (Auto) 13.0 L [place] % (Auto) 10.1 H Lymph # [place] # 1.4 H Baso # Seg Neutrophils % 74.4 H Seg Neuts % (Manual) Lymphocytes % (Manual) Monocytes % (Manual) Nucleated RBC % Seg Neutrophils # 10.4 H Seg Neutrophils # Man Lymphocytes # (Manual) Monocytes # (Manual) POC ABG pH POC ABG pCO2 POC ABG pO2 Sodium Potassium Chloride Carbon Dioxide BUN 19 H Creatinine 0.6 L Glucose 159 H POC Glucose 156 H Calcium Phosphorus Magnesium AST ALT Alkaline Phosphatase C-Reactive Protein Total Protein Albumin Urine WBC (Auto) Miscellaneous Test 04/22/18 04/22/18 04/22/18 12:34 16:20 21:42 WBC RBC Hgb Hct MCV MCHC RDW Plt Count Lymph % (Auto) [place] % (Auto) Lymph # [place] # Baso # Seg Neutrophils % Seg Neuts % (Manual) Lymphocytes % (Manual) Monocytes % (Manual) Nucleated RBC % Seg Neutrophils # Seg Neutrophils # Man Lymphocytes # (Manual) Monocytes # (Manual) POC ABG pH POC ABG pCO2 POC ABG pO2 Sodium Potassium Chloride Carbon Dioxide BUN Creatinine Glucose POC Glucose 150 H 148 H 134 H Calcium Phosphorus Magnesium AST ALT Alkaline Phosphatase C-Reactive Protein Total Protein Albumin Urine WBC (Auto) Miscellaneous Test Chest x-ray: report reviewed (Mild cardiomegaly, mild congestion. Small left pleural effusion. Neural stimulator device in place.), image reviewed Allied health notes reviewed: nursing
[2018-04-23] MEDS: NORMODYNE IV SCH ×6 (00:07→18:16)
[2018-04-23] MEDS: FLAGYL PO SCH ×2 (00:09→06:25)
[2018-04-23] MEDS: DILAUDID IV PRN ×3 (04:42→18:13)
[2018-04-23 06:00] LABS: Hematocrit 29.6 % (30.3-42.9); Hemoglobin 9.6 gm/dl (10.1-14.3); Mean Corpuscular HGB Conc 33 % (30-34); Mean Corpuscular Hemoglobin 28 pg (28-32); Mean Corpuscular Volume 87 fl (79-97); Platelet Count 441 K/mm3 (140-440); Red Blood Count 3.41 M/mm3 (3.65-5.03); Red Cell Distribution Width 14.8 % (13.2-15.2)
[2018-04-23] MEDS: MAXIPIME/NS 2 GM/100 ML 2 GM/100 ML BAG IV SCH (06:24)
[2018-04-23 06:31] LABS: Basophils # (Auto) 0.1 K/mm3 (0.0-0.1); Basophils % (Auto) 0.9 % (0.0-1.8); Eosinophils # (Auto) 0.2 K/mm3 (0.0-0.4); Eosinophils % (Auto) 1.5 % (0.0-4.3); Lymphocytes # (Auto) 2.1 K/mm3 (1.2-5.4); Lymphocytes % (Auto) 16.1 % (13.4-35.0); Monocytes # (Auto) 1.4 K/mm3 (0.0-0.8); Monocytes % (Auto) 11.3 % (0.0-7.3)
[2018-04-23 06:34] LABS: BUN/Creatinine Ratio 32; Blood Urea Nitrogen 19 mg/dL (7-17); Calcium 8.8 mg/dL (8.4-10.2); Hemolysis Index 0
[2018-04-23] MEDS: PULMICORT IH SCH ×2 (08:45→20:01)
[2018-04-23] MEDS: BROVANA NEBU IH SCH ×2 (08:45→20:02)
[2018-04-23] MEDS: SODIUM CHLORIDE FLUSH SYRINGE 10 ML IV SCH ×2 (09:00→21:12)
[2018-04-23] MEDS: PROTONIX IV SCH ×2 (11:39→21:12)
--- NOTE | 2018-04-23 11:41 | Progress Note ---
Assessment and Plan Assessment: 1) Sepsis: resolved. Etiology most likely perf / intra-abdominal collection 2) Gastric perf and intra-abdominal fluid collection -S/P OR for ex lap, abdominal washout, repair of gastric perforation and placement of drains on 04/08/18 -04/07 peritoneal fluid + Serratia x 2 -Repeat CTA 04/09 showed no PE however increase in left pleural effusion with dense consolidation consistent with atelectasis and a large fluid collection 14 x 4.7 cm in the left lobe of the fever with air bubbles. -CRP=52 --> 45 -procal=0.3 -Repeat CT showed large left pleural effusion, smaller left hep lobe collection and large splenic collection 4.2x6.1 cm -S/P further drain placement 04/16 cx +MSSA and Leuconostoc. S/p vanco IV x 10 days until 04/19 3) S/P lap sleeve gastrectomy with hiatal hernia repair and partial fundoplication 03/30/18 4) Presumed pnemonia vs. atelectasis Plan: -stop cefepime and flagyl D10/10 (s/p zosyn 7 days) - total 17 days of abx -monitor fever and leukocytosis -call me with questions I am signing off Thank you for your consultation, will follow up with you. Katerin Cross MD Infectious Diseases Specialist [facility] [phone] O [phone] Subjective Date of service: 04/23/18 Principal diagnosis: Sepsis Syndrome; Acute Hypoxemic Resp Failure; Acute Encephalopathy Interval history: feels better, alert, talking, no fever Microbiology: Blood cultures: 04/07 neg 04/10 ngtd Peritoneal cultures: 04/07 Serratia x 2 04/10 ngtd 04/16 MSSA and Strep sp Current Antimicrobials: cefepime and flagyl 04/14 Previous Antimicrobials: Fluconazole Zosyn 04/08-04/14 vanco 04/10-04/19 Objective - Exam Narrative Exam: General appearance: Alert in mild shortness of breath NC O2 Eyes: anicteric sclerae, moist conjunctivae; no lid-lag; PERRLA HENT: Atraumatic; oropharynx NGT Neck: Trachea midline; supple, no thyromegaly or lymphadenopathy Lungs: CTA CV: RRR Abdomen: Obese, Soft, midline surgical wound covered with dressings drain in place KRISTI R minimal purulent output KRISTI L minimal serosang output Extremities: No peripheral edema or extremity lymphadenopathy Skin: Normal temperature, turgor and texture; no rash, ulcers or subcutaneous nodules Psych: Appropriate affect, alert and oriented to person, place and time. Neuro: alert and oriented x 3. Moving all extermities Lines: right PICC, staton - Constitutional Vitals: Vital Signs Temp Pulse Resp BP Pulse Ox 98.0 F 93 H 18 137/69 97 04/23/18 08:34 04/23/18 08:34 04/23/18 08:34 04/23/18 08:34 04/23/18 08:34 Temperature -Last 24 Hours Temperature 98.0 F Temperature 99.1 F Temperature 99.5 F Temperature 98.9 F Temperature 98.8 F - Labs CBC & Chem 7: 04/23/18 05:45 04/23/18 05:45 Labs: Abnormal lab results 04/22/18 04/22/18 04/22/18 Range/Units 12:34 16:20 21:42 WBC (4.5-11.0) K/mm3 RBC (3.65-5.03) M/mm3 Hgb (10.1-14.3) gm/dl Hct (30.3-42.9) % Plt Count (140-440) K/mm3 [place] % (Auto) (0.0-7.3) % [place] # (0.0-0.8) K/mm3 Seg Neutrophils % (40.0-70.0) % Seg Neutrophils # (1.8-7.7) K/mm3 BUN (7-17) mg/dL Creatinine (0.7-1.2) mg/dL Glucose (65-100) mg/dL POC Glucose 150 H 148 H 134 H (70-105) Magnesium (1.7-2.3) mg/dL 04/23/18 04/23/18 04/23/18 Range/Units 05:45 05:45 08:45 WBC 12.5 H (4.5-11.0) K/mm3 RBC 3.41 L (3.65-5.03) M/mm3 Hgb 9.6 L (10.1-14.3) gm/dl Hct 29.6 L (30.3-42.9) % Plt Count 441 H (140-440) K/mm3 [place] % (Auto) 11.3 H (0.0-7.3) % [place] # 1.4 H (0.0-0.8) K/mm3 Seg Neutrophils % 70.2 H (40.0-70.0) % Seg Neutrophils # 9.0 H (1.8-7.7) K/mm3 BUN 19 H (7-17) mg/dL Creatinine 0.6 L (0.7-1.2) mg/dL Glucose 119 H (65-100) mg/dL POC Glucose 154 H (70-105) Magnesium 2.40 H (1.7-2.3) mg/dL
--- NOTE | 2018-04-23 13:19 | Progress Note ---
Assessment and Plan Patient resting on room air. No complaint of chest pain, shortness of breath or cough. O2 saturation 97% on room air. - Patient Problems (1) Pneumoperitoneum Current Visit: Yes Status: Acute Plan to address problem: Appears improved. Last chest xray not reported pneumomediastinum. (2) Asthma Current Visit: Yes Status: Chronic Qualifiers: Asthma severity: unspecified severity Plan to address problem: Brovanna/Budesonide aerosol treatments q 12 hours. Albuterol inhaler 2 puffs po qid PRN for shortness of breath. Continue S/C Lovenox. Continue Protonix. (3) Sepsis Current Visit: Yes Status: Acute Qualifiers: Sepsis type: sepsis due to unspecified organism Qualified Code(s): A41.9 - Sepsis, unspecified organism Plan to address problem: Patient is on cefepime and Metronidazole. Subjective Date of service: 04/23/18 Principal diagnosis: Sepsis Syndrome; Acute Hypoxemic Resp Failure; Acute Encephalopathy Interval history: Patient resting on room air. No complaint of chest pain, shortness of breath or cough. O2 saturation 97% on room air. Objective Vital Signs - 12hr 04/23/18 04/23/18 04/23/18 04:03 04:42 05:12 Temperature 99.1 F Pulse Rate 101 H Respiratory 20 17 17 Rate Blood Pressure 152/83 O2 Sat by Pulse 96 Oximetry 04/23/18 04/23/18 04/23/18 06:29 08:34 11:42 Temperature 98.0 F Pulse Rate 102 H 93 H 96 H Respiratory 18 Rate Blood Pressure 157/80 137/69 O2 Sat by Pulse 97 Oximetry Constitutional: no acute distress, alert Eyes: non-icteric ENT: oropharynx moist, other (no thyromegaly) Neck: supple, no lymphadenopathy, no JVD, other (large neck circumference) Effort: mildly labored Ascultation: Bilateral: diminished breath sounds, rhonchi (scant in bases) Percussion: Bilateral: not dull Cardiovascular: regular rate and rhythm, other (No R/M) Gastrointestinal: hypoactive bowel sounds, soft, tender (mild), non-distended, other (no palpable HSM) Integumentary: normal Extremities: no cyanosis, no edema, pulses normal, no ischemia or petechiae Neurologic: normal mental status, non-focal exam (grossly), pupils equal and round, CN II-XII normal, motor strength normal and Psychiatric: mood appropriate, affect normal CBC and BMP: 04/23/18 05:45 04/23/18 05:45 ABG, PT/INR, D-dimer: ABG POC ABG pH 7.519 (7.35-7.45) H 04/10/18 12:59 POC ABG pCO2 29.3 (35-45) L 04/10/18 12:59 POC ABG pO2 63 (80-105) L 04/10/18 12:59 POC ABG HCO3 23.9 04/10/18 12:59 POC ABG Total CO2 25 04/10/18 12:59 POC ABG O2 Sat 94 04/10/18 12:59 PT/INR, D-dimer PT 13.5 Sec. (12.2-14.9) 04/07/18 09:41 INR 0.98 (0.87-1.13) 04/07/18 09:41 Abnormal lab findings: Abnormal Labs 04/07/18 04/07/18 04/07/18 00:05 00:05 09:41 WBC 18.4 H 21.3 H RBC Hgb Hct MCV MCHC RDW Plt Count Lymph % (Auto) 4.5 L [place] % (Auto) Lymph # 0.8 L [place] # 1.2 H Baso # Seg Neutrophils % 88.9 H Seg Neuts % (Manual) 85.0 H Lymphocytes % (Manual) 4.0 L Monocytes % (Manual) Nucleated RBC % Seg Neutrophils # 16.4 H Seg Neutrophils # Man 18.1 H Lymphocytes # (Manual) 0.9 L Monocytes # (Manual) 1.1 H POC ABG pH POC ABG pCO2 POC ABG pO2 Sodium Potassium Chloride Carbon Dioxide BUN Creatinine Glucose 123 H POC Glucose Calcium 8.0 L Phosphorus Magnesium 1.60 L AST 59 H ALT Alkaline Phosphatase C-Reactive Protein Total Protein Albumin 2.9 L Urine WBC (Auto) Miscellaneous Test 04/07/18 04/08/18 04/08/18 09:41 00:20 10:25 WBC 19.2 H RBC Hgb Hct MCV MCHC RDW Plt Count Lymph % (Auto) 5.4 L [place] % (Auto) Lymph # 1.0 L [place] # 1.1 H Baso # Seg Neutrophils % 88.9 H Seg Neuts % (Manual) Lymphocytes % (Manual) Monocytes % (Manual) Nucleated RBC % Seg Neutrophils # 17.1 H Seg Neutrophils # Man Lymphocytes # (Manual) Monocytes # (Manual) POC ABG pH POC ABG pCO2 POC ABG pO2 Sodium Potassium 3.3 L Chloride 95.1 L Carbon Dioxide 21 L BUN Creatinine Glucose 113 H POC Glucose Calcium Phosphorus Magnesium AST ALT Alkaline Phosphatase C-Reactive Protein Total Protein Albumin 3.6 L Urine WBC (Auto) 45.0 H Miscellaneous Test 04/08/18 04/08/18 04/08/18 10:25 13:33 23:53 WBC 12.8 H RBC Hgb Hct MCV MCHC RDW Plt Count Lymph % (Auto) [place] % (Auto) Lymph # [place] # Baso # Seg Neutrophils % Seg Neuts % (Manual) 97.0 H Lymphocytes % (Manual) 2.0 L Monocytes % (Manual) Nucleated RBC % Seg Neutrophils # Seg Neutrophils # Man 12.4 H Lymphocytes # (Manual) 0.3 L Monocytes # (Manual) POC ABG pH POC ABG pCO2 POC ABG pO2 Sodium Potassium 3.5 L Chloride Carbon Dioxide BUN Creatinine Glucose 123 H POC Glucose Calcium 7.9 L Phosphorus Magnesium AST 53 H ALT Alkaline Phosphatase C-Reactive Protein 52.00 H Total Protein 6.1 L Albumin 2.7 L Urine WBC (Auto) Miscellaneous Test 04/09/18 04/09/18 04/09/18 04:20 04:20 13:38 WBC 16.2 H RBC Hgb Hct MCV MCHC RDW Plt Count Lymph % (Auto) [place] % (Auto) Lymph # [place] # Baso # Seg Neutrophils % Seg Neuts % (Manual) 89.0 H Lymphocytes % (Manual) 4.0 L Monocytes % (Manual) Nucleated RBC % Seg Neutrophils # Seg Neutrophils # Man 14.4 H Lymphocytes # (Manual) 0.6 L Monocytes # (Manual) POC ABG pH 7.494 H POC ABG pCO2 31.6 L POC ABG pO2 68 L Sodium Potassium 3.5 L Chloride Carbon Dioxide BUN Creatinine 0.6 L Glucose 117 H POC Glucose Calcium 7.9 L Phosphorus 1.50 L D Magnesium AST ALT Alkaline Phosphatase C-Reactive Protein Total Protein 5.6 L Albumin 2.9 L Urine WBC (Auto) Miscellaneous Test 04/09/18 04/09/18 04/09/18 18:25 21:45 21:45 WBC 21.3 H RBC 3.62 L Hgb Hct MCV MCHC 35 H RDW Plt Count Lymph % (Auto) [place] % (Auto) Lymph # [place] # Baso # Seg Neutrophils % Seg Neuts % (Manual) 90.0 H Lymphocytes % (Manual) 6.0 L Monocytes % (Manual) Nucleated RBC % 1.0 H Seg Neutrophils # Seg Neutrophils # Man 19.2 H Lymphocytes # (Manual) Monocytes # (Manual) 0.9 H POC ABG pH POC ABG pCO2 POC ABG pO2 Sodium Potassium Chloride Carbon Dioxide BUN 5 L Creatinine 0.5 L Glucose 134 H POC Glucose 155 H Calcium 7.9 L Phosphorus 2.20 L D Magnesium AST ALT Alkaline Phosphatase C-Reactive Protein Total Protein Albumin Urine WBC (Auto) Miscellaneous Test 04/09/18 04/10/18 04/10/18 23:38 04:07 04:07 WBC 20.2 H RBC 3.38 L Hgb 9.4 L Hct 28.9 L MCV MCHC RDW Plt Count Lymph % (Auto) [place] % (Auto) Lymph # [place] # Baso # Seg Neutrophils % Seg Neuts % (Manual) Lymphocytes % (Manual) 6.0 L Monocytes % (Manual) Nucleated RBC % Seg Neutrophils # Seg Neutrophils # Man 10.7 H Lymphocytes # (Manual) Monocytes # (Manual) POC ABG pH POC ABG pCO2 POC ABG pO2 Sodium Potassium Chloride Carbon Dioxide BUN 6 L Creatinine 0.6 L Glucose 176 H POC Glucose 160 H Calcium 7.7 L Phosphorus Magnesium AST ALT Alkaline Phosphatase C-Reactive Protein Total Protein Albumin Urine WBC (Auto) Miscellaneous Test 04/10/18 04/10/18 04/10/18 05:29 11:55 12:59 WBC RBC Hgb Hct MCV MCHC RDW Plt Count Lymph % (Auto) [place] % (Auto) Lymph # [place] # Baso # Seg Neutrophils % Seg Neuts % (Manual) Lymphocytes % (Manual) Monocytes % (Manual) Nucleated RBC % Seg Neutrophils # Seg Neutrophils # Man Lymphocytes # (Manual) Monocytes # (Manual) POC ABG pH 7.519 H POC ABG pCO2 29.3 L POC ABG pO2 63 L Sodium Potassium Chloride Carbon Dioxide BUN Creatinine Glucose POC Glucose 171 H 194 H Calcium Phosphorus Magnesium AST ALT Alkaline Phosphatase C-Reactive Protein Total Protein Albumin Urine WBC (Auto) Miscellaneous Test 04/10/18 04/10/18 04/10/18 18:11 18:28 18:28 WBC 22.7 H RBC 3.62 L Hgb Hct MCV MCHC RDW Plt Count Lymph % (Auto) [place] % (Auto) Lymph # [place] # Baso # Seg Neutrophils % Seg Neuts % (Manual) 84.0 H Lymphocytes % (Manual) 7.0 L Monocytes % (Manual) 8.0 H Nucleated RBC % Seg Neutrophils # Seg Neutrophils # Man 19.1 H Lymphocytes # (Manual) Monocytes # (Manual) 1.8 H POC ABG pH POC ABG pCO2 POC ABG pO2 Sodium Potassium Chloride Carbon Dioxide BUN Creatinine Glucose POC Glucose 118 H Calcium Phosphorus Magnesium AST ALT Alkaline Phosphatase C-Reactive Protein 45.20 H Total Protein Albumin Urine WBC (Auto) Miscellaneous Test 04/10/18 04/10/18 04/11/18 18:28 23:45 03:35 WBC 20.9 H RBC 3.54 L Hgb 10.0 L Hct MCV MCHC RDW Plt Count Lymph % (Auto) [place] % (Auto) Lymph # [place] # Baso # Seg Neutrophils % Seg Neuts % (Manual) 80.0 H Lymphocytes % (Manual) 6.0 L Monocytes % (Manual) Nucleated RBC % Seg Neutrophils # Seg Neutrophils # Man 16.7 H Lymphocytes # (Manual) Monocytes # (Manual) POC ABG pH POC ABG pCO2 POC ABG pO2 Sodium Potassium 3.5 L Chloride Carbon Dioxide BUN 5 L Creatinine 0.5 L Glucose 108 H POC Glucose 149 H Calcium 8.3 L Phosphorus Magnesium AST ALT Alkaline Phosphatase C-Reactive Protein Total Protein Albumin Urine WBC (Auto) Miscellaneous Test 04/11/18 04/11/18 04/11/18 03:35 06:17 11:29 WBC RBC Hgb Hct MCV MCHC RDW Plt Count Lymph % (Auto) [place] % (Auto) Lymph # [place] # Baso # Seg Neutrophils % Seg Neuts % (Manual) Lymphocytes % (Manual) Monocytes % (Manual) Nucleated RBC % Seg Neutrophils # Seg Neutrophils # Man Lymphocytes # (Manual) Monocytes # (Manual) POC ABG pH POC ABG pCO2 POC ABG pO2 Sodium Potassium Chloride Carbon Dioxide BUN Creatinine 0.5 L Glucose 143 H POC Glucose 155 H 158 H Calcium 8.2 L Phosphorus Magnesium AST ALT Alkaline Phosphatase C-Reactive Protein Total Protein 6.0 L Albumin 2.2 L Urine WBC (Auto) Miscellaneous Test 04/11/18 04/11/18 04/12/18 18:13 23:51 05:29 WBC RBC Hgb Hct MCV MCHC RDW Plt Count Lymph % (Auto) [place] % (Auto) Lymph # [place] # Baso # Seg Neutrophils % Seg Neuts % (Manual) Lymphocytes % (Manual) Monocytes % (Manual) Nucleated RBC % Seg Neutrophils # Seg Neutrophils # Man Lymphocytes # (Manual) Monocytes # (Manual) POC ABG pH POC ABG pCO2 POC ABG pO2 Sodium Potassium Chloride Carbon Dioxide BUN Creatinine Glucose POC Glucose 135 H 143 H 150 H Calcium Phosphorus Magnesium AST ALT Alkaline Phosphatase C-Reactive Protein Total Protein Albumin Urine WBC (Auto) Miscellaneous Test 04/12/18 04/12/18 04/13/18 05:40 05:40 00:32 WBC 18.0 H RBC 3.34 L Hgb 9.5 L Hct 28.9 L MCV MCHC RDW Plt Count Lymph % (Auto) 7.4 L [place] % (Auto) 10.8 H Lymph # [place] # 1.9 H Baso # Seg Neutrophils % 81.1 H Seg Neuts % (Manual) Lymphocytes % (Manual) Monocytes % (Manual) Nucleated RBC % Seg Neutrophils # 14.6 H Seg Neutrophils # Man Lymphocytes # (Manual) Monocytes # (Manual) POC ABG pH POC ABG pCO2 POC ABG pO2 Sodium Potassium Chloride 107.7 H Carbon Dioxide 21 L BUN Creatinine 0.6 L Glucose 140 H POC Glucose 144 H Calcium Phosphorus Magnesium AST ALT Alkaline Phosphatase C-Reactive Protein Total Protein Albumin Urine WBC (Auto) Miscellaneous Test 04/13/18 04/13/18 04/13/18 04:20 04:20 04:20 WBC 18.1 H RBC 3.52 L Hgb 9.8 L Hct 30.1 L MCV MCHC RDW Plt Count Lymph % (Auto) 11.1 L [place] % (Auto) 13.6 H Lymph # [place] # 2.5 H Baso # Seg Neutrophils % 74.4 H Seg Neuts % (Manual) Lymphocytes % (Manual) Monocytes % (Manual) Nucleated RBC % Seg Neutrophils # 13.4 H Seg Neutrophils # Man Lymphocytes # (Manual) Monocytes # (Manual) POC ABG pH POC ABG pCO2 POC ABG pO2 Sodium Potassium Chloride Carbon Dioxide BUN Creatinine 0.5 L Glucose 142 H POC Glucose Calcium Phosphorus Magnesium AST ALT Alkaline Phosphatase C-Reactive Protein 29.60 H Total Protein Albumin Urine WBC (Auto) Miscellaneous Test 04/13/18 04/13/18 04/13/18 05:35 13:37 23:50 WBC RBC Hgb Hct MCV MCHC RDW Plt Count Lymph % (Auto) [place] % (Auto) Lymph # [place] # Baso # Seg Neutrophils % Seg Neuts % (Manual) Lymphocytes % (Manual) Monocytes % (Manual) Nucleated RBC % Seg Neutrophils # Seg Neutrophils # Man Lymphocytes # (Manual) Monocytes # (Manual) POC ABG pH POC ABG pCO2 POC ABG pO2 Sodium Potassium Chloride Carbon Dioxide BUN Creatinine Glucose POC Glucose 142 H 160 H Calcium Phosphorus Magnesium AST ALT Alkaline Phosphatase C-Reactive Protein Total Protein Albumin Urine WBC (Auto) Miscellaneous Test Flexitest 1 H 04/14/18 04/14/18 04/14/18 04:00 04:00 05:29 WBC 22.1 H RBC 3.59 L Hgb 9.9 L Hct MCV MCHC RDW Plt Count Lymph % (Auto) [place] % (Auto) Lymph # [place] # Baso # Seg Neutrophils % Seg Neuts % (Manual) 73.0 H Lymphocytes % (Manual) 9.0 L Monocytes % (Manual) 11.0 H Nucleated RBC % Seg Neutrophils # Seg Neutrophils # Man 16.1 H Lymphocytes # (Manual) Monocytes # (Manual) 2.4 H POC ABG pH POC ABG pCO2 POC ABG pO2 Sodium Potassium Chloride Carbon Dioxide BUN Creatinine Glucose 155 H POC Glucose 133 H Calcium Phosphorus Magnesium 2.50 H AST ALT Alkaline Phosphatase C-Reactive Protein Total Protein Albumin Urine WBC (Auto) Miscellaneous Test 04/14/18 04/14/18 04/14/18 12:47 16:01 23:42 WBC RBC Hgb Hct MCV MCHC RDW Plt Count Lymph % (Auto) [place] % (Auto) Lymph # [place] # Baso # Seg Neutrophils % Seg Neuts % (Manual) Lymphocytes % (Manual) Monocytes % (Manual) Nucleated RBC % Seg Neutrophils # Seg Neutrophils # Man Lymphocytes # (Manual) Monocytes # (Manual) POC ABG pH POC ABG pCO2 POC ABG pO2 Sodium Potassium Chloride Carbon Dioxide BUN Creatinine Glucose POC Glucose 183 H 153 H 172 H Calcium Phosphorus Magnesium AST ALT Alkaline Phosphatase C-Reactive Protein Total Protein Albumin Urine WBC (Auto) Miscellaneous Test 04/15/18 04/15/18 04/15/18 04:42 04:42 05:49 WBC 21.5 H RBC 3.37 L Hgb 9.4 L Hct 28.9 L MCV MCHC RDW Plt Count 490 H Lymph % (Auto) [place] % (Auto) Lymph # [place] # Baso # Seg Neutrophils % Seg Neuts % (Manual) 77.0 H Lymphocytes % (Manual) 7.0 L Monocytes % (Manual) 10.0 H Nucleated RBC % Seg Neutrophils # Seg Neutrophils # Man 16.6 H Lymphocytes # (Manual) Monocytes # (Manual) 2.2 H POC ABG pH POC ABG pCO2 POC ABG pO2 Sodium Potassium 3.4 L Chloride 107.5 H Carbon Dioxide 21 L BUN Creatinine Glucose 165 H POC Glucose 147 H Calcium 8.0 L Phosphorus Magnesium 2.40 H AST ALT Alkaline Phosphatase C-Reactive Protein Total Protein Albumin Urine WBC (Auto) Miscellaneous Test 04/15/18 04/15/18 04/16/18 11:17 17:35 00:26 WBC RBC Hgb Hct MCV MCHC RDW Plt Count Lymph % (Auto) [place] % (Auto) Lymph # [place] # Baso # Seg Neutrophils % Seg Neuts % (Manual) Lymphocytes % (Manual) Monocytes % (Manual) Nucleated RBC % Seg Neutrophils # Seg Neutrophils # Man Lymphocytes # (Manual) Monocytes # (Manual) POC ABG pH POC ABG pCO2 POC ABG pO2 Sodium Potassium Chloride Carbon Dioxide BUN Creatinine Glucose POC Glucose 119 H 169 H 176 H Calcium Phosphorus Magnesium AST ALT Alkaline Phosphatase C-Reactive Protein Total Protein Albumin Urine WBC (Auto) Miscellaneous Test 04/16/18 04/16/18 04/16/18 06:12 06:19 06:21 WBC 20.7 H RBC 3.25 L Hgb 9.0 L Hct MCV MCHC 29 L RDW 16.7 H Plt Count 498 H Lymph % (Auto) [place] % (Auto) Lymph # [place] # Baso # Seg Neutrophils % Seg Neuts % (Manual) 88.0 H Lymphocytes % (Manual) 5.0 L Monocytes % (Manual) Nucleated RBC % Seg Neutrophils # Seg Neutrophils # Man 18.2 H Lymphocytes # (Manual) 1.0 L Monocytes # (Manual) POC ABG pH POC ABG pCO2 POC ABG pO2 Sodium Potassium Chloride Carbon Dioxide BUN Creatinine Glucose POC Glucose > 500 H 493 H Calcium Phosphorus Magnesium AST ALT Alkaline Phosphatase C-Reactive Protein Total Protein Albumin Urine WBC (Auto) Miscellaneous Test 04/16/18 04/16/18 04/16/18 06:24 08:52 14:05 WBC RBC Hgb Hct MCV MCHC RDW Plt Count Lymph % (Auto) [place] % (Auto) Lymph # [place] # Baso # Seg Neutrophils % Seg Neuts % (Manual) Lymphocytes % (Manual) Monocytes % (Manual) Nucleated RBC % Seg Neutrophils # Seg Neutrophils # Man Lymphocytes # (Manual) Monocytes # (Manual) POC ABG pH POC ABG pCO2 POC ABG pO2 Sodium Potassium 3.4 L Chloride Carbon Dioxide BUN Creatinine 0.5 L Glucose 166 H POC Glucose 173 H 196 H Calcium 8.2 L Phosphorus Magnesium AST ALT Alkaline Phosphatase C-Reactive Protein Total Protein Albumin Urine WBC (Auto) Miscellaneous Test 04/16/18 04/17/18 04/17/18 17:17 00:06 04:50 WBC 16.0 H RBC 3.12 L Hgb 8.7 L Hct 29.0 L MCV MCHC RDW 16.2 H Plt Count 455 H Lymph % (Auto) 9.4 L [place] % (Auto) 7.7 H Lymph # [place] # 1.2 H Baso # Seg Neutrophils % 81.9 H Seg Neuts % (Manual) Lymphocytes % (Manual) Monocytes % (Manual) Nucleated RBC % Seg Neutrophils # 13.1 H Seg Neutrophils # Man Lymphocytes # (Manual) Monocytes # (Manual) POC ABG pH POC ABG pCO2 POC ABG pO2 Sodium Potassium Chloride Carbon Dioxide BUN Creatinine Glucose POC Glucose 189 H 190 H Calcium Phosphorus Magnesium AST ALT Alkaline Phosphatase C-Reactive Protein Total Protein Albumin Urine WBC (Auto) Miscellaneous Test 04/17/18 04/17/18 04/17/18 04:50 05:38 07:17 WBC RBC Hgb Hct MCV MCHC RDW Plt Count Lymph % (Auto) [place] % (Auto) Lymph # [place] # Baso # Seg Neutrophils % Seg Neuts % (Manual) Lymphocytes % (Manual) Monocytes % (Manual) Nucleated RBC % Seg Neutrophils # Seg Neutrophils # Man Lymphocytes # (Manual) Monocytes # (Manual) POC ABG pH POC ABG pCO2 POC ABG pO2 Sodium 136 L Potassium 3.4 L Chloride 96.9 L Carbon Dioxide BUN Creatinine 0.6 L Glucose 167 H POC Glucose 190 H Calcium 7.6 L 8.0 L Phosphorus Magnesium AST ALT Alkaline Phosphatase C-Reactive Protein Total Protein Albumin Urine WBC (Auto) Miscellaneous Test 04/17/18 04/17/18 04/17/18 11:50 18:37 23:53 WBC RBC Hgb Hct MCV MCHC RDW Plt Count Lymph % (Auto) [place] % (Auto) Lymph # [place] # Baso # Seg Neutrophils % Seg Neuts % (Manual) Lymphocytes % (Manual) Monocytes % (Manual) Nucleated RBC % Seg Neutrophils # Seg Neutrophils # Man Lymphocytes # (Manual) Monocytes # (Manual) POC ABG pH POC ABG pCO2 POC ABG pO2 Sodium Potassium Chloride Carbon Dioxide BUN Creatinine Glucose POC Glucose 163 H 167 H 142 H Calcium Phosphorus Magnesium AST ALT Alkaline Phosphatase C-Reactive Protein Total Protein Albumin Urine WBC (Auto) Miscellaneous Test 04/18/18 04/18/18 04/18/18 05:59 10:05 12:25 WBC RBC Hgb Hct MCV MCHC RDW Plt Count Lymph % (Auto) [place] % (Auto) Lymph # [place] # Baso # Seg Neutrophils % Seg Neuts % (Manual) Lymphocytes % (Manual) Monocytes % (Manual) Nucleated RBC % Seg Neutrophils # Seg Neutrophils # Man Lymphocytes # (Manual) Monocytes # (Manual) POC ABG pH POC ABG pCO2 POC ABG pO2 Sodium Potassium Chloride Carbon Dioxide BUN Creatinine 0.5 L Glucose 127 H POC Glucose 144 H 171 H Calcium 8.2 L Phosphorus Magnesium AST ALT Alkaline Phosphatase C-Reactive Protein Total Protein Albumin Urine WBC (Auto) Miscellaneous Test 04/18/18 04/18/18 04/19/18 14:54 17:56 00:15 WBC 18.2 H RBC 2.95 L Hgb 8.9 L Hct 29.0 L MCV 98 H MCHC RDW 16.9 H Plt Count Lymph % (Auto) 9.2 L [place] % (Auto) Lymph # [place] # 1.2 H Baso # Seg Neutrophils % 82.7 H Seg Neuts % (Manual) Lymphocytes % (Manual) Monocytes % (Manual) Nucleated RBC % Seg Neutrophils # 15.1 H Seg Neutrophils # Man Lymphocytes # (Manual) Monocytes # (Manual) POC ABG pH POC ABG pCO2 POC ABG pO2 Sodium Potassium Chloride Carbon Dioxide BUN Creatinine Glucose POC Glucose 169 H 148 H Calcium Phosphorus Magnesium AST ALT Alkaline Phosphatase C-Reactive Protein Total Protein Albumin Urine WBC (Auto) Miscellaneous Test 04/19/18 04/19/18 04/19/18 05:21 08:00 08:00 WBC 18.7 H RBC Hgb Hct MCV MCHC RDW Plt Count 531 H Lymph % (Auto) [place] % (Auto) Lymph # [place] # Baso # Seg Neutrophils % Seg Neuts % (Manual) Lymphocytes % (Manual) Monocytes % (Manual) Nucleated RBC % Seg Neutrophils # Seg Neutrophils # Man Lymphocytes # (Manual) Monocytes # (Manual) POC ABG pH POC ABG pCO2 POC ABG pO2 Sodium Potassium Chloride Carbon Dioxide BUN 18 H Creatinine 0.5 L Glucose 141 H POC Glucose 146 H Calcium Phosphorus Magnesium AST ALT 76 H Alkaline Phosphatase 142 H C-Reactive Protein Total Protein Albumin 2.4 L Urine WBC (Auto) Miscellaneous Test 04/19/18 04/19/18 04/20/18 12:12 17:41 00:21 WBC RBC Hgb Hct MCV MCHC RDW Plt Count Lymph % (Auto) [place] % (Auto) Lymph # [place] # Baso # Seg Neutrophils % Seg Neuts % (Manual) Lymphocytes % (Manual) Monocytes % (Manual) Nucleated RBC % Seg Neutrophils # Seg Neutrophils # Man Lymphocytes # (Manual) Monocytes # (Manual) POC ABG pH POC ABG pCO2 POC ABG pO2 Sodium Potassium Chloride Carbon Dioxide BUN Creatinine Glucose POC Glucose 161 H 134 H 159 H Calcium Phosphorus Magnesium AST ALT Alkaline Phosphatase C-Reactive Protein Total Protein Albumin Urine WBC (Auto) Miscellaneous Test 04/20/18 04/20/18 04/20/18 04:00 04:00 07:05 WBC 16.5 H RBC 3.51 L Hgb 9.9 L Hct 30.1 L MCV MCHC RDW Plt Count 530 H Lymph % (Auto) 10.7 L [place] % (Auto) 9.2 H Lymph # [place] # 1.5 H Baso # Seg Neutrophils % 78.5 H Seg Neuts % (Manual) Lymphocytes % (Manual) Monocytes % (Manual) Nucleated RBC % Seg Neutrophils # 13.0 H Seg Neutrophils # Man Lymphocytes # (Manual) Monocytes # (Manual) POC ABG pH POC ABG pCO2 POC ABG pO2 Sodium Potassium Chloride Carbon Dioxide BUN 19 H Creatinine 0.6 L Glucose 185 H POC Glucose 166 H Calcium Phosphorus Magnesium AST ALT Alkaline Phosphatase C-Reactive Protein Total Protein Albumin Urine WBC (Auto) Miscellaneous Test 04/20/18 04/20/1804/21/18 12:59 19:06 00:17 WBC RBC Hgb Hct MCV MCHC RDW Plt Count Lymph % (Auto) [place] % (Auto) Lymph # [place] # Baso # Seg Neutrophils % Seg Neuts % (Manual) Lymphocytes % (Manual) Monocytes % (Manual) Nucleated RBC % Seg Neutrophils # Seg Neutrophils # Man Lymphocytes # (Manual) Monocytes # (Manual) POC ABG pH POC ABG pCO2 POC ABG pO2 Sodium Potassium Chloride Carbon Dioxide BUN Creatinine Glucose POC Glucose 166 H 170 H 178 H Calcium Phosphorus Magnesium AST ALT Alkaline Phosphatase C-Reactive Protein Total Protein Albumin Urine WBC (Auto) Miscellaneous Test 04/21/18 04/21/18 04/21/18 06:15 06:15 06:39 WBC 15.1 H RBC 3.48 L Hgb 9.8 L Hct 30.2 L MCV MCHC RDW Plt Count 499 H Lymph % (Auto) [place] % (Auto) 8.7 H Lymph # [place] # 1.3 H Baso # 0.2 H Seg Neutrophils % 74.7 H Seg Neuts % (Manual) Lymphocytes % (Manual) Monocytes % (Manual) Nucleated RBC % Seg Neutrophils # 11.3 H Seg Neutrophils # Man Lymphocytes # (Manual) Monocytes # (Manual) POC ABG pH POC ABG pCO2 POC ABG pO2 Sodium Potassium Chloride 108.8 H Carbon Dioxide BUN 18 H Creatinine 0.6 L Glucose 157 H POC Glucose 153 H Calcium 8.0 L Phosphorus Magnesium AST ALT Alkaline Phosphatase C-Reactive Protein Total Protein Albumin Urine WBC (Auto) Miscellaneous Test 04/21/18 04/21/18 04/21/18 11:49 17:07 22:07 WBC RBC Hgb Hct MCV MCHC RDW Plt Count Lymph % (Auto) [place] % (Auto) Lymph # [place] # Baso # Seg Neutrophils % Seg Neuts % (Manual) Lymphocytes % (Manual) Monocytes % (Manual) Nucleated RBC % Seg Neutrophils # Seg Neutrophils # Man Lymphocytes # (Manual) Monocytes # (Manual) POC ABG pH POC ABG pCO2 POC ABG pO2 Sodium Potassium Chloride Carbon Dioxide BUN Creatinine Glucose POC Glucose 184 H 163 H 169 H Calcium Phosphorus Magnesium AST ALT Alkaline Phosphatase C-Reactive Protein Total Protein Albumin Urine WBC (Auto) Miscellaneous Test 04/22/18 04/22/18 04/22/18 07:00 07:00 08:52 WBC 14.0 H RBC 3.26 L Hgb 9.3 L Hct 28.6 L MCV MCHC RDW Plt Count 460 H Lymph % (Auto) 13.0 L [place] % (Auto) 10.1 H Lymph # [place] # 1.4 H Baso # Seg Neutrophils % 74.4 H Seg Neuts % (Manual) Lymphocytes % (Manual) Monocytes % (Manual) Nucleated RBC % Seg Neutrophils # 10.4 H Seg Neutrophils # Man Lymphocytes # (Manual) Monocytes # (Manual) POC ABG pH POC ABG pCO2 POC ABG pO2 Sodium Potassium Chloride Carbon Dioxide BUN 19 H Creatinine 0.6 L Glucose 159 H POC Glucose 156 H Calcium Phosphorus Magnesium AST ALT Alkaline Phosphatase C-Reactive Protein Total Protein Albumin Urine WBC (Auto) Miscellaneous Test 04/22/18 04/22/18 04/22/18 12:34 16:20 21:42 WBC RBC Hgb Hct MCV MCHC RDW Plt Count Lymph % (Auto) [place] % (Auto) Lymph # [place] # Baso # Seg Neutrophils % Seg Neuts % (Manual) Lymphocytes % (Manual) Monocytes % (Manual) Nucleated RBC % Seg Neutrophils # Seg Neutrophils # Man Lymphocytes # (Manual) Monocytes # (Manual) POC ABG pH POC ABG pCO2 POC ABG pO2 Sodium Potassium Chloride Carbon Dioxide BUN Creatinine Glucose POC Glucose 150 H 148 H 134 H Calcium Phosphorus Magnesium AST ALT Alkaline Phosphatase C-Reactive Protein Total Protein Albumin Urine WBC (Auto) Miscellaneous Test 04/23/18 04/23/18 04/23/18 05:45 05:45 08:45 WBC 12.5 H RBC 3.41 L Hgb 9.6 L Hct 29.6 L MCV MCHC RDW Plt Count 441 H Lymph % (Auto) [place] % (Auto) 11.3 H Lymph # [place] # 1.4 H Baso # Seg Neutrophils % 70.2 H Seg Neuts % (Manual) Lymphocytes % (Manual) Monocytes % (Manual) Nucleated RBC % Seg Neutrophils # 9.0 H Seg Neutrophils # Man Lymphocytes # (Manual) Monocytes # (Manual) POC ABG pH POC ABG pCO2 POC ABG pO2 Sodium Potassium Chloride Carbon Dioxide BUN 19 H Creatinine 0.6 L Glucose 119 H POC Glucose 154 H Calcium Phosphorus Magnesium 2.40 H AST ALT Alkaline Phosphatase C-Reactive Protein Total Protein Albumin Urine WBC (Auto) Miscellaneous Test 04/23/18 11:45 WBC RBC Hgb Hct MCV MCHC RDW Plt Count Lymph % (Auto) [place] % (Auto) Lymph # [place] # Baso # Seg Neutrophils % Seg Neuts % (Manual) Lymphocytes % (Manual) Monocytes % (Manual) Nucleated RBC % Seg Neutrophils # Seg Neutrophils # Man Lymphocytes # (Manual) Monocytes # (Manual) POC ABG pH POC ABG pCO2 POC ABG pO2 Sodium Potassium Chloride Carbon Dioxide BUN Creatinine Glucose POC Glucose 132 H Calcium Phosphorus Magnesium AST ALT Alkaline Phosphatase C-Reactive Protein Total Protein Albumin Urine WBC (Auto) Miscellaneous Test Allied health notes reviewed: nursing
--- NOTE | 2018-04-23 14:36 | Progress Note ---
Assessment and Plan /Sepsis due to intraabdominal infection and PNA. -continue cefepime and flagyl D8/10 (s/p zosyn 7 days) - S/p vanco IV x 10 days until 04/19 for MSSA - ID Physician following /Leukocytosis due to sepsis, trending down /Gastric perforation s/p exploratory lap, repair of perforation on 04/07/18. Surg is attending, managing on TPN /Pneumoperitoneum due to gastric perforation, s/p repair of perforation on 04/07/[address] likely tomorrow per GS /Acute respiratory failure. On supplemental Oxygen by [place] Pulmonology on case /Bilateral pneumonia vs atelectasis On Cefepime /Hypertension. Monitor BP On Clonidine patch and Lopressor. Also Hydraazine iv prn. /Hypokalemia, resolved /Obstructive seep apnea, CPAP at bedtime Full code status Hospitalist Physical Constitutional: Not in acute distress, obese, HEENT: Atraumatic, normocephalic Neck: supple, no lymphadenopathy, Lungs: Bilateral rhonchi, wheezing, CVS: S1-S2 regular, no murmurs, rubs or gallop, Abdomen: soft, mild tender, dressing.bowel sounds present, Musculoskeletal: No edema, clubbing, or cyanosis ABALONE DIVER: Awake,,alert,oriented x brief history: 58 y.o. female s/p lap sleeve gastrectomy with hiatal hernia repair and partial fundoplication 03/30, presents to ER with abdominal pain. In the ER she was noted to have a WBC of >20, tachycardiac as well. A CT abd/ pelvis was performed= free air. Now s/p dx lap, abdominal washout, repair of gastric perforation and placement of drains , s/p abdominal pigtail placement x 2. Subjective Date of service: 04/23/18 Principal diagnosis: Sepsis Syndrome; Acute Hypoxemic Resp Failure; Acute Encephalopathy Interval history: Pt seen and examined No acute event, No fever On TPN, off NG suction (NG tube came off yesterday afternoon) Objective - Constitutional Vitals: Vital Signs - 12hr 04/23/18 04/23/18 04/23/18 04:03 04:42 05:12 Temperature 99.1 F Pulse Rate 101 H Respiratory 20 17 17 Rate Blood Pressure 152/83 Blood Pressure [Left] O2 Sat by Pulse 96 Oximetry 0704/23/18 04/23/18 06:29 08:34 11:42 Temperature 98.0 F Pulse Rate 102 H 93 H 96 H Respiratory 18 Rate Blood Pressure 157/80 137/69 Blood Pressure [Left] O2 Sat by Pulse 97 Oximetry 04/23/18 12:00 Temperature 98.8 F Pulse Rate 101 H Respiratory 18 Rate Blood Pressure Blood Pressure 114/74 [Left] O2 Sat by Pulse 98 Oximetry - Labs CBC & Chem 7: 04/23/18 05:45 04/23/18 05:45 Labs: Abnormal lab results 04/22/18 04/22/18 04/23/18 Range/Units 16:20 21:42 05:45 WBC 12.5 H (4.5-11.0) K/mm3 RBC 3.41 L (3.65-5.03) M/mm3 Hgb 9.6 L (10.1-14.3) gm/dl Hct 29.6 L (30.3-42.9) % Plt Count 441 H (140-440) K/mm3 [place] % (Auto) 11.3 H (0.0-7.3) % [place] # 1.4 H (0.0-0.8) K/mm3 Seg Neutrophils % 70.2 H (40.0-70.0) % Seg Neutrophils # 9.0 H (1.8-7.7) K/mm3 BUN (7-17) mg/dL Creatinine (0.7-1.2) mg/dL Glucose (65-100) mg/dL POC Glucose 148 H 134 H (70-105) Magnesium (1.7-2.3) mg/dL 04/23/18 04/23/18 04/23/18 Range/Units 05:45 08:45 11:45 WBC (4.5-11.0) K/mm3 RBC (3.65-5.03) M/mm3 Hgb (10.1-14.3) gm/dl Hct (30.3-42.9) % Plt Count (140-440) K/mm3 [place] % (Auto) (0.0-7.3) % [place] # (0.0-0.8) K/mm3 Seg Neutrophils % (40.0-70.0) % Seg Neutrophils # (1.8-7.7) K/mm3 BUN 19 H (7-17) mg/dL Creatinine 0.6 L (0.7-1.2) mg/dL Glucose 119 H (65-100) mg/dL POC Glucose 154 H 132 H (70-105) Magnesium 2.40 H (1.7-2.3) mg/dL
[2018-04-23] MEDS ORDERED: TPN ADULT 1,800 ML IV SCH (20:00)
[2018-04-23] MEDS ORDERED: INTRALIPID 20% 250 ML IV SCH (20:00)
[2018-04-23] MEDS: PHENERGAN PR PRN (20:58)
--- NOTE | 2018-04-23 21:46 | Progress Note ---
Assessment and Plan 58 y.o. f s/p lap sleeve gastrectomy with hiatal hernia repair and partial fundoplication 03/30, presents to ER with abdominal pain, now s/p dx lap, abdominal washout, repair of gastric perforation and placement of drains , s/p abdominal pigtail placement x 2 Neuro: dilualdid, morphine prn. toradol for pain control. Ativan prn for agitation for hx of anxiety baseline Cardio: tachycardia- improved with pain control and improving/resolving sepsis - ->resolved hx of HTN: enalaril IV, metop , clonidine patch -hospitalist consult Pulm: pulm toilet per pulm Left pleural effusion: if pulm function continues to improve, she may not require the drainage Appreciate pulmonary consult -IS CXr 04/09: left effusion, cardiomeg. no pulm congestion CT chest: no PE GI: npo, . monitor drain(s) output -CT abd/pelvis: fluid collection anterior to liver, leak persistent. s/p IR drain x 2. -plan for CT tomorrow. Nutrition: PIcc line for tpn. -monitor lytes ID: gastric perf. vanco-complted flagyl cefipime- completed most recent surgical drain: staph aureus -umbilical incision: change packing daily peritoneal cultures: serratia Pneumonia: vanco . Dosing per pharm. -completed -ID consult appreciated Fever continues- off/on. f/u cultures. leukocytosis If fevers continues, f/u CT abd. pelvis --> collections --> 04/20: -if continues to spike fevers will discuss with ID /Lytes: f/u am labs. monitor urine out. DVT proph: lovenox scds GI proph: protonix Out of bed to chair/ PT Dispo: once the LUQ drain is less white/yellow, has less output. and the NG is less white thick fluid and leukocytosis improved-> more likely of perf healed -- > will repeat CT with iv and po contrast. If leak persists will discuss sleeve stent with pt and contact GI. -Goal of CT in the next 1 day Subjective Narrative: Pt seen and examined. Pt has abdominal cramping off and on. Denies vomiting. no spittting up white foam. denies sob or chest pain. fever 102 Objective Vital Signs - 12hr 04/23/18 04/23/18 04/23/18 11:42 12:00 14:35 Temperature 98.8 F Pulse Rate 96 H 101 H 101 H Respiratory 18 Rate Blood Pressure 130/79 Blood Pressure 114/74 [Left] O2 Sat by Pulse 98 Oximetry 04/23/18 04/23/18 04/23/18 16:23 18:16 19:52 Temperature 99.5 F Pulse Rate 107 H 107 H 101 H Respiratory 18 20 Rate Blood Pressure 128/71 128/71 141/74 Blood Pressure [Left] O2 Sat by Pulse 97 97 Oximetry 04/23/18 20:01 Temperature 98.9 F Pulse Rate Respiratory Rate Blood Pressure Blood Pressure [Left] O2 Sat by Pulse Oximetry - General physical appearance well developed, well nourished, no distress - Respiratory normal expansion, normal respiratory effort, clear to auscultation - Abdomen soft, other (tender mid abd. no rebound no guarding. JPs and pigtail in place. LUQ pigtail 20cc white yellow fluid drained. ) - Integumentary no rash - Neurologic normal coordination, normal sensation - Psychiatric oriented to time, oriented to person, oriented to place - Labs 04/25/18 11:31 04/25/18 11:31 Diabetes panel 04/23/18 Range/Units 05:45 Sodium 141 (137-145) mmol/L Potassium 4.6 (3.6-5.0) mmol/L Chloride 102.9 (98-107) mmol/L Carbon Dioxide 27 (22-30) mmol/L BUN 19 H (7-17) mg/dL Creatinine 0.6 L (0.7-1.2) mg/dL Glucose 119 H (65-100) mg/dL Calcium 8.8 (8.4-10.2) mg/dL Calcium panel 04/23/18 Range/Units 05:45 Calcium 8.8 (8.4-10.2) mg/dL Phosphorus 4.10 (2.5-4.5) mg/dL Pituitary panel 04/23/18 Range/Units 05:45 Sodium 141 (137-145) mmol/L Potassium 4.6 (3.6-5.0) mmol/L Chloride 102.9 (98-107) mmol/L Carbon Dioxide 27 (22-30) mmol/L BUN 19 H (7-17) mg/dL Creatinine 0.6 L (0.7-1.2) mg/dL Glucose 119 H (65-100) mg/dL Calcium 8.8 (8.4-10.2) mg/dL Adrenal panel 04/23/18 Range/Units 05:45 Sodium 141 (137-145) mmol/L Potassium 4.6 (3.6-5.0) mmol/L Chloride 102.9 (98-107) mmol/L Carbon Dioxide 27 (22-30) mmol/L BUN 19 H (7-17) mg/dL Creatinine 0.6 L (0.7-1.2) mg/dL Glucose 119 H (65-100) mg/dL Calcium 8.8 (8.4-10.2) mg/dL
[2018-04-24] MEDS: NORMODYNE IV SCH ×7 (01:15→22:00)
[2018-04-24] MEDS: ZOFRAN IV PRN (04:26)
[2018-04-24] MEDS: TYLENOL PR PRN (06:05)
[2018-04-24] MEDS: LOVENOX SUB-Q SCH ×2 (06:05→22:40)
[2018-04-24] MEDS: BROVANA NEBU IH SCH ×2 (08:12→21:27)
[2018-04-24] MEDS: PULMICORT IH SCH ×2 (08:13→21:27)
[2018-04-24 08:51] LABS: Basophils # (Auto) 0.2 K/mm3 (0.0-0.1); Basophils % (Auto) 1.2 % (0.0-1.8); Eosinophils # (Auto) 0.1 K/mm3 (0.0-0.4); Eosinophils % (Auto) 0.5 % (0.0-4.3); Hematocrit 28.4 % (30.3-42.9); Hemoglobin 9.6 gm/dl (10.1-14.3); Lymphocytes # (Auto) 1.8 K/mm3 (1.2-5.4); Lymphocytes % (Auto) 12.8 % (13.4-35.0); Mean Corpuscular HGB Conc 34 % (30-34); Mean Corpuscular Hemoglobin 29 pg (28-32); Mean Corpuscular Volume 86 fl (79-97); Monocytes # (Auto) 1.3 K/mm3 (0.0-0.8); Monocytes % (Auto) 9.1 % (0.0-7.3); Platelet Count 405 K/mm3 (140-440); Red Cell Distribution Width 14.7 % (13.2-15.2)
[2018-04-24 09:09] LABS: BUN/Creatinine Ratio 26; Blood Urea Nitrogen 18 mg/dL (7-17); Calcium 8.5 mg/dL (8.4-10.2); Hemolysis Index 0
[2018-04-24] MEDS: SODIUM CHLORIDE FLUSH SYRINGE 10 ML IV SCH ×2 (09:19→22:41)
[2018-04-24] MEDS: PROTONIX IV SCH ×2 (09:19→22:40)
[2018-04-24] MEDS: DILAUDID IV PRN ×5 (09:19→21:13)
--- NOTE | 2018-04-24 12:24 | Progress Note ---
Assessment and Plan /Sepsis due to intraabdominal infection and PNA. --stopped cefepime and flagyl D10/10 (s/p zosyn 7 days) - total 17 days of abx - S/p vanco IV x 10 days until 04/19 for MSSA - monitor fever and leukocytosis off abx - ID Physician following /Leukocytosis due to sepsis, trending down /Gastric perforation s/p exploratory lap, repair of perforation on 04/07/18. Surg is attending, managing on TPN /Pneumoperitoneum due to gastric perforation, s/p repair of perforation on 04/07/[address] per GS /Acute respiratory failure. On supplemental Oxygen by [place] Pulmonology on case /Bilateral pneumonia vs atelectasis completed abx /Hypertension. Monitor BP On Clonidine patch and Lopressor. Also Hydraazine iv prn. 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 female s/p lap sleeve gastrectomy with hiatal hernia repair and partial fundoplication 03/30, presents to ER with abdominal pain. In the ER she was noted to have a WBC of >20, tachycardiac as well. A CT abd/ pelvis was performed= free air. Now s/p dx lap, abdominal washout, repair of gastric perforation and placement of drains , s/p abdominal pigtail placement x 2. Completed abx for intraabdominal infection, now waiting for surgery clearance for disposition. Subjective Date of service: 04/24/18 Principal diagnosis: Sepsis Syndrome; Acute Hypoxemic Resp Failure; Acute Encephalopathy Interval history: Pt seen and examined No acute event, No fever On TPN, off NG suction (NG tube came off 04/23 and was not replaced since then) Objective - Constitutional Vitals: Vital Signs - 12hr 07/28/18 07/28/18 07/28/18 05:35 05:45 06:05 Temperature 102.4 F H 102.4 F H Pulse Rate 117 H 116 H Pulse Rate [ Anterior Bilateral] Respiratory 20 16 Rate Respiratory Rate [Abdomen] Respiratory Rate [Anterior Bilateral] Blood Pressure 141/73 Blood Pressure 141/73 [Left] O2 Sat by Pulse 98 98 Oximetry 04/24/18 04/24/18 04/24/18 06:06 06:19 07:16 Temperature 102.1 F H 101.4 F H Pulse Rate 118 H 118 H 107 H Pulse Rate [ Anterior Bilateral] Respiratory 20 Rate Respiratory Rate [Abdomen] Respiratory Rate [Anterior Bilateral] Blood Pressure 149/76 128/69 Blood Pressure 149/76 [Left] O2 Sat by Pulse 96 Oximetry 04/24/18 04/24/18 04/24/18 08:13 08:37 09:20 Temperature Pulse Rate 107 H Pulse Rate [ 104 H 101 H Anterior Bilateral] Respiratory Rate Respiratory Rate [Abdomen] Respiratory 18 18 Rate [Anterior Bilateral] Blood Pressure 128/69 Blood Pressure [Left] O2 Sat by Pulse Oximetry 04/24/18 10:00 Temperature Pulse Rate Pulse Rate [ Anterior Bilateral] Respiratory Rate Respiratory 17 Rate [Abdomen] Respiratory Rate [Anterior Bilateral] Blood Pressure Blood Pressure [Left] O2 Sat by Pulse Oximetry - Labs CBC & Chem 7: 04/24/18 08:30 04/24/18 08:30 Labs: Abnormal lab results 04/23/18 04/24/18 04/24/18 Range/Units 22:09 07:26 08:30 WBC 14.4 H (4.5-11.0) K/mm3 RBC 3.30 L (3.65-5.03) M/mm3 Hgb 9.6 L (10.1-14.3) gm/dl Hct 28.4 L (30.3-42.9) % Lymph % (Auto) 12.8 L (13.4-35.0) % [place] % (Auto) 9.1 H (0.0-7.3) % [place] # 1.3 H (0.0-0.8) K/mm3 Baso # 0.2 H (0.0-0.1) K/mm3 Seg Neutrophils % 76.4 H (40.0-70.0) % Seg Neutrophils # 11.0 H (1.8-7.7) K/mm3 BUN (7-17) mg/dL Glucose (65-100) mg/dL POC Glucose 113 H 164 H (70-105) 04/24/18 04/24/18 Range/Units 08:30 11:27 WBC (4.5-11.0) K/mm3 RBC (3.65-5.03) M/mm3 Hgb (10.1-14.3) gm/dl Hct (30.3-42.9) % Lymph % (Auto) (13.4-35.0) % [place] % (Auto) (0.0-7.3) % [place] # (0.0-0.8) K/mm3 Baso # (0.0-0.1) K/mm3 Seg Neutrophils % (40.0-70.0) % Seg Neutrophils # (1.8-7.7) K/mm3 BUN 18 H (7-17) mg/dL Glucose 155 H (65-100) mg/dL POC Glucose 133 H (70-105)
--- NOTE | 2018-04-24 12:59 | Progress Note ---
Assessment and Plan Sepsis syndrome with altered mental status in the setting of the systemic inflammatory response syndrome. Mild metabolic acidosis Perforated abdominal viscus status post exploratory laparotomy and repair. Obesity. Atypical Chest Pain Obstructive sleep apnea according to the history. Acute encephalopathy, presumably toxic metabolic. History of hypertension. Arthritis. Gastroesophageal reflux disease. Morbid obesity. Acute hypoxemic respiratory failure - follow blood cultures and urine cultures - UA - continue supplemental oxygen to keep sats > 90% - anti-infectives per ID recs (follow off AB's) - continue PICC line for TPN - PT/OT evaluation ongoing - continue GI & VTE prophylaxis - continue bronchodilators for COPD (brovana and changed duonebs to prn) - continue BIPAP scheduled qhs for [place] with prn daytime use - wound care per WCT / RN and surgeon - continue other care per attending / other consultants ...... re-evaluate in am & prn ...35' Subjective Date of service: 04/24/18 Principal diagnosis: Sepsis Syndrome; Acute Hypoxemic Resp Failure; Acute Encephalopathy Interval history: Patient is seen today for: Sepsis Syndrome; Acute Hypoxemic Resp Failure; Acute Encephalopathy Seen and examined at bedside; 24hour events reviewed; nursing and respiratory care staff consulted; no adverse overnight events reported to me; resting peacefully in bed; No N/V/C; complained of some dysuria; + fevers Objective Vital Signs - 12hr 04/24/18 04/24/18 04/24/18 05:35 05:45 06:05 Temperature 102.4 F H 102.4 F H Pulse Rate 117 H 116 H Pulse Rate [ Anterior Bilateral] Respiratory 20 16 Rate Respiratory Rate [Abdomen] Respiratory Rate [Anterior Bilateral] Blood Pressure 141/73 Blood Pressure 141/73 [Left] O2 Sat by Pulse 98 98 Oximetry 04/24/18 04/24/18 04/24/18 06:06 06:19 07:16 Temperature 102.1 F H 101.4 F H Pulse Rate 118 H 118 H 107 H Pulse Rate [ Anterior Bilateral] Respiratory 20 Rate Respiratory Rate [Abdomen] Respiratory Rate [Anterior Bilateral] Blood Pressure 149/76 128/69 Blood Pressure 149/76 [Left] O2 Sat by Pulse 96 Oximetry 04/24/18 04/24/18 04/24/18 08:13 08:37 09:20 Temperature Pulse Rate 107 H Pulse Rate [ 104 H 101 H Anterior Bilateral] Respiratory Rate Respiratory Rate [Abdomen] Respiratory 18 18 Rate [Anterior Bilateral] Blood Pressure 128/69 Blood Pressure [Left] O2 Sat by Pulse Oximetry 04/24/18 10:00 Temperature Pulse Rate Pulse Rate [ Anterior Bilateral] Respiratory Rate Respiratory 17 Rate [Abdomen] Respiratory Rate [Anterior Bilateral] Blood Pressure Blood Pressure [Left] O2 Sat by Pulse Oximetry Constitutional: no acute distress, alert Eyes: non-icteric ENT: oropharynx moist, other (no thyromegaly) Neck: supple, no lymphadenopathy, no JVD, other (large neck circumference) Effort: mildly labored Ascultation: Bilateral: diminished breath sounds, rhonchi (scant in bases) Percussion: Bilateral: not dull Cardiovascular: regular rate and rhythm, other (No R/M) Gastrointestinal: hypoactive bowel sounds, soft, tender (mild), non-distended, other (no palpable HSM) Integumentary: normal Extremities: no cyanosis, no edema, pulses normal, no ischemia or petechiae Neurologic: normal mental status, non-focal exam (grossly), pupils equal and round, CN II-XII normal, motor strength normal and Psychiatric: mood appropriate, affect normal CBC and BMP: 04/25/18 11:31 04/25/18 11:31 ABG, PT/INR, D-dimer: ABG POC ABG pH 7.519 (7.35-7.45) H 04/10/18 12:59 POC ABG pCO2 29.3 (35-45) L 04/10/18 12:59 POC ABG pO2 63 (80-105) L 04/10/18 12:59 POC ABG HCO3 23.9 04/10/18 12:59 POC ABG Total CO2 25 04/10/18 12:59 POC ABG O2 Sat 94 04/10/18 12:59 PT/INR, D-dimer PT 13.5 Sec. (12.2-14.9) 04/07/18 09:41 INR 0.98 (0.87-1.13) 04/07/18 09:41 Abnormal lab findings: Abnormal Labs 04/07/18 04/07/18 04/07/18 00:05 00:05 09:41 WBC 18.4 H 21.3 H RBC Hgb Hct MCV MCHC RDW Plt Count Lymph % (Auto) 4.5 L [place] % (Auto) Lymph # 0.8 L [place] # 1.2 H Baso # Seg Neutrophils % 88.9 H Seg Neuts % (Manual) 85.0 H Lymphocytes % (Manual) 4.0 L Monocytes % (Manual) Nucleated RBC % Seg Neutrophils # 16.4 H Seg Neutrophils # Man 18.1 H Lymphocytes # (Manual) 0.9 L Monocytes # (Manual) 1.1 H POC ABG pH POC ABG pCO2 POC ABG pO2 Sodium Potassium Chloride Carbon Dioxide BUN Creatinine Glucose 123 H POC Glucose Calcium 8.0 L Phosphorus Magnesium 1.60 L AST 59 H ALT Alkaline Phosphatase C-Reactive Protein Total Protein Albumin 2.9 L Urine WBC (Auto) Miscellaneous Test 04/07/18 04/08/18 04/08/18 09:41 00:20 10:25 WBC 19.2 H RBC Hgb Hct MCV MCHC RDW Plt Count Lymph % (Auto) 5.4 L [place] % (Auto) Lymph # 1.0 L [place] # 1.1 H Baso # Seg Neutrophils % 88.9 H Seg Neuts % (Manual) Lymphocytes % (Manual) Monocytes % (Manual) Nucleated RBC % Seg Neutrophils # 17.1 H Seg Neutrophils # Man Lymphocytes # (Manual) Monocytes # (Manual) POC ABG pH POC ABG pCO2 POC ABG pO2 Sodium Potassium 3.3 L Chloride 95.1 L Carbon Dioxide 21 L BUN Creatinine Glucose 113 H POC Glucose Calcium Phosphorus Magnesium AST ALT Alkaline Phosphatase C-Reactive Protein Total Protein Albumin 3.6 L Urine WBC (Auto) 45.0 H Miscellaneous Test 04/08/18 04/08/18 04/08/18 10:25 13:33 23:53 WBC 12.8 H RBC Hgb Hct MCV MCHC RDW Plt Count Lymph % (Auto) [place] % (Auto) Lymph # [place] # Baso # Seg Neutrophils % Seg Neuts % (Manual) 97.0 H Lymphocytes % (Manual) 2.0 L Monocytes % (Manual) Nucleated RBC % Seg Neutrophils # Seg Neutrophils # Man 12.4 H Lymphocytes # (Manual) 0.3 L Monocytes # (Manual) POC ABG pH POC ABG pCO2 POC ABG pO2 Sodium Potassium 3.5 L Chloride Carbon Dioxide BUN Creatinine Glucose 123 H POC Glucose Calcium 7.9 L Phosphorus Magnesium AST 53 H ALT Alkaline Phosphatase C-Reactive Protein 52.00 H Total Protein 6.1 L Albumin 2.7 L Urine WBC (Auto) Miscellaneous Test 04/09/18 04/09/18 04/09/18 04:20 04:20 13:38 WBC 16.2 H RBC Hgb Hct MCV MCHC RDW Plt Count Lymph % (Auto) [place] % (Auto) Lymph # [place] # Baso # Seg Neutrophils % Seg Neuts % (Manual) 89.0 H Lymphocytes % (Manual) 4.0 L Monocytes % (Manual) Nucleated RBC % Seg Neutrophils # Seg Neutrophils # Man 14.4 H Lymphocytes # (Manual) 0.6 L Monocytes # (Manual) POC ABG pH 7.494 H POC ABG pCO2 31.6 L POC ABG pO2 68 L Sodium Potassium 3.5 L Chloride Carbon Dioxide BUN Creatinine 0.6 L Glucose 117 H POC Glucose Calcium 7.9 L Phosphorus 1.50 L D Magnesium AST ALT Alkaline Phosphatase C-Reactive Protein Total Protein 5.6 L Albumin 2.9 L Urine WBC (Auto) Miscellaneous Test 04/09/18 04/09/18 04/09/18 18:25 21:45 21:45 WBC 21.3 H RBC 3.62 L Hgb Hct MCV MCHC 35 H RDW Plt Count Lymph % (Auto) [place] % (Auto) Lymph # [place] # Baso # Seg Neutrophils % Seg Neuts % (Manual) 90.0 H Lymphocytes % (Manual) 6.0 L Monocytes % (Manual) Nucleated RBC % 1.0 H Seg Neutrophils # Seg Neutrophils # Man 19.2 H Lymphocytes # (Manual) Monocytes # (Manual) 0.9 H POC ABG pH POC ABG pCO2 POC ABG pO2 Sodium Potassium Chloride Carbon Dioxide BUN 5 L Creatinine 0.5 L Glucose 134 H POC Glucose 155 H Calcium 7.9 L Phosphorus 2.20 L D Magnesium AST ALT Alkaline Phosphatase C-Reactive Protein Total Protein Albumin Urine WBC (Auto) Miscellaneous Test 04/09/18 04/10/18 04/10/18 23:38 04:07 04:07 WBC 20.2 H RBC 3.38 L Hgb 9.4 L Hct 28.9 L MCV MCHC RDW Plt Count Lymph % (Auto) [place] % (Auto) Lymph # [place] # Baso # Seg Neutrophils % Seg Neuts % (Manual) Lymphocytes % (Manual) 6.0 L Monocytes % (Manual) Nucleated RBC % Seg Neutrophils # Seg Neutrophils # Man 10.7 H Lymphocytes # (Manual) Monocytes # (Manual) POC ABG pH POC ABG pCO2 POC ABG pO2 Sodium Potassium Chloride Carbon Dioxide BUN 6 L Creatinine 0.6 L Glucose 176 H POC Glucose 160 H Calcium 7.7 L Phosphorus Magnesium AST ALT Alkaline Phosphatase C-Reactive Protein Total Protein Albumin Urine WBC (Auto) Miscellaneous Test 04/10/18 04/10/18 04/10/18 05:29 11:55 12:59 WBC RBC Hgb Hct MCV MCHC RDW Plt Count Lymph % (Auto) [place] % (Auto) Lymph # [place] # Baso # Seg Neutrophils % Seg Neuts % (Manual) Lymphocytes % (Manual) Monocytes % (Manual) Nucleated RBC % Seg Neutrophils # Seg Neutrophils # Man Lymphocytes # (Manual) Monocytes # (Manual) POC ABG pH 7.519 H POC ABG pCO2 29.3 L POC ABG pO2 63 L Sodium Potassium Chloride Carbon Dioxide BUN Creatinine Glucose POC Glucose 171 H 194 H Calcium Phosphorus Magnesium AST ALT Alkaline Phosphatase C-Reactive Protein Total Protein Albumin Urine WBC (Auto) Miscellaneous Test 04/10/18 04/10/18 04/10/18 18:11 18:28 18:28 WBC 22.7 H RBC 3.62 L Hgb Hct MCV MCHC RDW Plt Count Lymph % (Auto) [place] % (Auto) Lymph # [place] # Baso # Seg Neutrophils % Seg Neuts % (Manual) 84.0 H Lymphocytes % (Manual) 7.0 L Monocytes % (Manual) 8.0 H Nucleated RBC % Seg Neutrophils # Seg Neutrophils # Man 19.1 H Lymphocytes # (Manual) Monocytes # (Manual) 1.8 H POC ABG pH POC ABG pCO2 POC ABG pO2 Sodium Potassium Chloride Carbon Dioxide BUN Creatinine Glucose POC Glucose 118 H Calcium Phosphorus Magnesium AST ALT Alkaline Phosphatase C-Reactive Protein 45.20 H Total Protein Albumin Urine WBC (Auto) Miscellaneous Test 04/10/18 04/10/18 04/11/18 18:28 23:45 03:35 WBC 20.9 H RBC 3.54 L Hgb 10.0 L Hct MCV MCHC RDW Plt Count Lymph % (Auto) [place] % (Auto) Lymph # [place] # Baso # Seg Neutrophils % Seg Neuts % (Manual) 80.0 H Lymphocytes % (Manual) 6.0 L Monocytes % (Manual) Nucleated RBC % Seg Neutrophils # Seg Neutrophils # Man 16.7 H Lymphocytes # (Manual) Monocytes # (Manual) POC ABG pH POC ABG pCO2 POC ABG pO2 Sodium Potassium 3.5 L Chloride Carbon Dioxide BUN 5 L Creatinine 0.5 L Glucose 108 H POC Glucose 149 H Calcium 8.3 L Phosphorus Magnesium AST ALT Alkaline Phosphatase C-Reactive Protein Total Protein Albumin Urine WBC (Auto) Miscellaneous Test 04/11/18 04/11/18 04/11/18 03:35 06:17 11:29 WBC RBC Hgb Hct MCV MCHC RDW Plt Count Lymph % (Auto) [place] % (Auto) Lymph # [place] # Baso # Seg Neutrophils % Seg Neuts % (Manual) Lymphocytes % (Manual) Monocytes % (Manual) Nucleated RBC % Seg Neutrophils # Seg Neutrophils # Man Lymphocytes # (Manual) Monocytes # (Manual) POC ABG pH POC ABG pCO2 POC ABG pO2 Sodium Potassium Chloride Carbon Dioxide BUN Creatinine 0.5 L Glucose 143 H POC Glucose 155 H 158 H Calcium 8.2 L Phosphorus Magnesium AST ALT Alkaline Phosphatase C-Reactive Protein Total Protein 6.0 L Albumin 2.2 L Urine WBC (Auto) Miscellaneous Test 04/11/18 04/11/18 04/12/18 18:13 23:51 05:29 WBC RBC Hgb Hct MCV MCHC RDW Plt Count Lymph % (Auto) [place] % (Auto) Lymph # [place] # Baso # Seg Neutrophils % Seg Neuts % (Manual) Lymphocytes % (Manual) Monocytes % (Manual) Nucleated RBC % Seg Neutrophils # Seg Neutrophils # Man Lymphocytes # (Manual) Monocytes # (Manual) POC ABG pH POC ABG pCO2 POC ABG pO2 Sodium Potassium Chloride Carbon Dioxide BUN Creatinine Glucose POC Glucose 135 H 143 H 150 H Calcium Phosphorus Magnesium AST ALT Alkaline Phosphatase C-Reactive Protein Total Protein Albumin Urine WBC (Auto) Miscellaneous Test 04/12/18 04/12/18 04/13/18 05:40 05:40 00:32 WBC 18.0 H RBC 3.34 L Hgb 9.5 L Hct 28.9 L MCV MCHC RDW Plt Count Lymph % (Auto) 7.4 L [place] % (Auto) 10.8 H Lymph # [place] # 1.9 H Baso # Seg Neutrophils % 81.1 H Seg Neuts % (Manual) Lymphocytes % (Manual) Monocytes % (Manual) Nucleated RBC % Seg Neutrophils # 14.6 H Seg Neutrophils # Man Lymphocytes # (Manual) Monocytes # (Manual) POC ABG pH POC ABG pCO2 POC ABG pO2 Sodium Potassium Chloride 107.7 H Carbon Dioxide 21 L BUN Creatinine 0.6 L Glucose 140 H POC Glucose 144 H Calcium Phosphorus Magnesium AST ALT Alkaline Phosphatase C-Reactive Protein Total Protein Albumin Urine WBC (Auto) Miscellaneous Test 04/13/18 04/13/18 04/13/18 04:20 04:20 04:20 WBC 18.1 H RBC 3.52 L Hgb 9.8 L Hct 30.1 L MCV MCHC RDW Plt Count Lymph % (Auto) 11.1 L [place] % (Auto) 13.6 H Lymph # [place] # 2.5 H Baso # Seg Neutrophils % 74.4 H Seg Neuts % (Manual) Lymphocytes % (Manual) Monocytes % (Manual) Nucleated RBC % Seg Neutrophils # 13.4 H Seg Neutrophils # Man Lymphocytes # (Manual) Monocytes # (Manual) POC ABG pH POC ABG pCO2 POC ABG pO2 Sodium Potassium Chloride Carbon Dioxide BUN Creatinine 0.5 L Glucose 142 H POC Glucose Calcium Phosphorus Magnesium AST ALT Alkaline Phosphatase C-Reactive Protein 29.60 H Total Protein Albumin Urine WBC (Auto) Miscellaneous Test 04/13/18 04/13/18 04/13/18 05:35 13:37 23:50 WBC RBC Hgb Hct MCV MCHC RDW Plt Count Lymph % (Auto) [place] % (Auto) Lymph # [place] # Baso # Seg Neutrophils % Seg Neuts % (Manual) Lymphocytes % (Manual) Monocytes % (Manual) Nucleated RBC % Seg Neutrophils # Seg Neutrophils # Man Lymphocytes # (Manual) Monocytes # (Manual) POC ABG pH POC ABG pCO2 POC ABG pO2 Sodium Potassium Chloride Carbon Dioxide BUN Creatinine Glucose POC Glucose 142 H 160 H Calcium Phosphorus Magnesium AST ALT Alkaline Phosphatase C-Reactive Protein Total Protein Albumin Urine WBC (Auto) Miscellaneous Test Flexitest 1 H 04/14/18 04/14/18 04/14/18 04:00 04:00 05:29 WBC 22.1 H RBC 3.59 L Hgb 9.9 L Hct MCV MCHC RDW Plt Count Lymph % (Auto) [place] % (Auto) Lymph # [place] # Baso # Seg Neutrophils % Seg Neuts % (Manual) 73.0 H Lymphocytes % (Manual) 9.0 L Monocytes % (Manual) 11.0 H Nucleated RBC % Seg Neutrophils # Seg Neutrophils # Man 16.1 H Lymphocytes # (Manual) Monocytes # (Manual) 2.4 H POC ABG pH POC ABG pCO2 POC ABG pO2 Sodium Potassium Chloride Carbon Dioxide BUN Creatinine Glucose 155 H POC Glucose 133 H Calcium Phosphorus Magnesium 2.50 H AST ALT Alkaline Phosphatase C-Reactive Protein Total Protein Albumin Urine WBC (Auto) Miscellaneous Test 04/14/18 04/14/18 04/14/18 12:47 16:01 23:42 WBC RBC Hgb Hct MCV MCHC RDW Plt Count Lymph % (Auto) [place] % (Auto) Lymph # [place] # Baso # Seg Neutrophils % Seg Neuts % (Manual) Lymphocytes % (Manual) Monocytes % (Manual) Nucleated RBC % Seg Neutrophils # Seg Neutrophils # Man Lymphocytes # (Manual) Monocytes # (Manual) POC ABG pH POC ABG pCO2 POC ABG pO2 Sodium Potassium Chloride Carbon Dioxide BUN Creatinine Glucose POC Glucose 183 H 153 H 172 H Calcium Phosphorus Magnesium AST ALT Alkaline Phosphatase C-Reactive Protein Total Protein Albumin Urine WBC (Auto) Miscellaneous Test 04/15/18 04/15/18 04/15/18 04:42 04:42 05:49 WBC 21.5 H RBC 3.37 L Hgb 9.4 L Hct 28.9 L MCV MCHC RDW Plt Count 490 H Lymph % (Auto) [place] % (Auto) Lymph # [place] # Baso # Seg Neutrophils % Seg Neuts % (Manual) 77.0 H Lymphocytes % (Manual) 7.0 L Monocytes % (Manual) 10.0 H Nucleated RBC % Seg Neutrophils # Seg Neutrophils # Man 16.6 H Lymphocytes # (Manual) Monocytes # (Manual) 2.2 H POC ABG pH POC ABG pCO2 POC ABG pO2 Sodium Potassium 3.4 L Chloride 107.5 H Carbon Dioxide 21 L BUN Creatinine Glucose 165 H POC Glucose 147 H Calcium 8.0 L Phosphorus Magnesium 2.40 H AST ALT Alkaline Phosphatase C-Reactive Protein Total Protein Albumin Urine WBC (Auto) Miscellaneous Test 04/15/18 04/15/18 04/16/18 11:17 17:35 00:26 WBC RBC Hgb Hct MCV MCHC RDW Plt Count Lymph % (Auto) [place] % (Auto) Lymph # [place] # Baso # Seg Neutrophils % Seg Neuts % (Manual) Lymphocytes % (Manual) Monocytes % (Manual) Nucleated RBC % Seg Neutrophils # Seg Neutrophils # Man Lymphocytes # (Manual) Monocytes # (Manual) POC ABG pH POC ABG pCO2 POC ABG pO2 Sodium Potassium Chloride Carbon Dioxide BUN Creatinine Glucose POC Glucose 119 H 169 H 176 H Calcium Phosphorus Magnesium AST ALT Alkaline Phosphatase C-Reactive Protein Total Protein Albumin Urine WBC (Auto) Miscellaneous Test 04/16/18 04/16/18 04/16/18 06:12 06:19 06:21 WBC 20.7 H RBC 3.25 L Hgb 9.0 L Hct MCV MCHC 29 L RDW 16.7 H Plt Count 498 H Lymph % (Auto) [place] % (Auto) Lymph # [place] # Baso # Seg Neutrophils % Seg Neuts % (Manual) 88.0 H Lymphocytes % (Manual) 5.0 L Monocytes % (Manual) Nucleated RBC % Seg Neutrophils # Seg Neutrophils # Man 18.2 H Lymphocytes # (Manual) 1.0 L Monocytes # (Manual) POC ABG pH POC ABG pCO2 POC ABG pO2 Sodium Potassium Chloride Carbon Dioxide BUN Creatinine Glucose POC Glucose > 500 H 493 H Calcium Phosphorus Magnesium AST ALT Alkaline Phosphatase C-Reactive Protein Total Protein Albumin Urine WBC (Auto) Miscellaneous Test 04/16/18 04/16/18 04/16/18 06:24 08:52 14:05 WBC RBC Hgb Hct MCV MCHC RDW Plt Count Lymph % (Auto) [place] % (Auto) Lymph # [place] # Baso # Seg Neutrophils % Seg Neuts % (Manual) Lymphocytes % (Manual) Monocytes % (Manual) Nucleated RBC % Seg Neutrophils # Seg Neutrophils # Man Lymphocytes # (Manual) Monocytes # (Manual) POC ABG pH POC ABG pCO2 POC ABG pO2 Sodium Potassium 3.4 L Chloride Carbon Dioxide BUN Creatinine 0.5 L Glucose 166 H POC Glucose 173 H 196 H Calcium 8.2 L Phosphorus Magnesium AST ALT Alkaline Phosphatase C-Reactive Protein Total Protein Albumin Urine WBC (Auto) Miscellaneous Test 04/16/18 04/17/18 04/17/18 17:17 00:06 04:50 WBC 16.0 H RBC 3.12 L Hgb 8.7 L Hct 29.0 L MCV MCHC RDW 16.2 H Plt Count 455 H Lymph % (Auto) 9.4 L [place] % (Auto) 7.7 H Lymph # [place] # 1.2 H Baso # Seg Neutrophils % 81.9 H Seg Neuts % (Manual) Lymphocytes % (Manual) Monocytes % (Manual) Nucleated RBC % Seg Neutrophils # 13.1 H Seg Neutrophils # Man Lymphocytes # (Manual) Monocytes # (Manual) POC ABG pH POC ABG pCO2 POC ABG pO2 Sodium Potassium Chloride Carbon Dioxide BUN Creatinine Glucose POC Glucose 189 H 190 H Calcium Phosphorus Magnesium AST ALT Alkaline Phosphatase C-Reactive Protein Total Protein Albumin Urine WBC (Auto) Miscellaneous Test 04/17/18 04/17/18 04/17/18 04:50 05:38 07:17 WBC RBC Hgb Hct MCV MCHC RDW Plt Count Lymph % (Auto) [place] % (Auto) Lymph # [place] # Baso # Seg Neutrophils % Seg Neuts % (Manual) Lymphocytes % (Manual) Monocytes % (Manual) Nucleated RBC % Seg Neutrophils # Seg Neutrophils # Man Lymphocytes # (Manual) Monocytes # (Manual) POC ABG pH POC ABG pCO2 POC ABG pO2 Sodium 136 L Potassium 3.4 L Chloride 96.9 L Carbon Dioxide BUN Creatinine 0.6 L Glucose 167 H POC Glucose 190 H Calcium 7.6 L 8.0 L Phosphorus Magnesium AST ALT Alkaline Phosphatase C-Reactive Protein Total Protein Albumin Urine WBC (Auto) Miscellaneous Test 04/17/18 04/17/18 04/17/18 11:50 18:37 23:53 WBC RBC Hgb Hct MCV MCHC RDW Plt Count Lymph % (Auto) [place] % (Auto) Lymph # [place] # Baso # Seg Neutrophils % Seg Neuts % (Manual) Lymphocytes % (Manual) Monocytes % (Manual) Nucleated RBC % Seg Neutrophils # Seg Neutrophils # Man Lymphocytes # (Manual) Monocytes # (Manual) POC ABG pH POC ABG pCO2 POC ABG pO2 Sodium Potassium Chloride Carbon Dioxide BUN Creatinine Glucose POC Glucose 163 H 167 H 142 H Calcium Phosphorus Magnesium AST ALT Alkaline Phosphatase C-Reactive Protein Total Protein Albumin Urine WBC (Auto) Miscellaneous Test 04/18/18 04/18/18 04/18/18 05:59 10:05 12:25 WBC RBC Hgb Hct MCV MCHC RDW Plt Count Lymph % (Auto) [place] % (Auto) Lymph # [place] # Baso # Seg Neutrophils % Seg Neuts % (Manual) Lymphocytes % (Manual) Monocytes % (Manual) Nucleated RBC % Seg Neutrophils # Seg Neutrophils # Man Lymphocytes # (Manual) Monocytes # (Manual) POC ABG pH POC ABG pCO2 POC ABG pO2 Sodium Potassium Chloride Carbon Dioxide BUN Creatinine 0.5 L Glucose 127 H POC Glucose 144 H 171 H Calcium 8.2 L Phosphorus Magnesium AST ALT Alkaline Phosphatase C-Reactive Protein Total Protein Albumin Urine WBC (Auto) Miscellaneous Test 04/18/18 04/18/18 04/19/18 14:54 17:56 00:15 WBC 18.2 H RBC 2.95 L Hgb 8.9 L Hct 29.0 L MCV 98 H MCHC RDW 16.9 H Plt Count Lymph % (Auto) 9.2 L [place] % (Auto) Lymph # [place] # 1.2 H Baso # Seg Neutrophils % 82.7 H Seg Neuts % (Manual) Lymphocytes % (Manual) Monocytes % (Manual) Nucleated RBC % Seg Neutrophils # 15.1 H Seg Neutrophils # Man Lymphocytes # (Manual) Monocytes # (Manual) POC ABG pH POC ABG pCO2 POC ABG pO2 Sodium Potassium Chloride Carbon Dioxide BUN Creatinine Glucose POC Glucose 169 H 148 H Calcium Phosphorus Magnesium AST ALT Alkaline Phosphatase C-Reactive Protein Total Protein Albumin Urine WBC (Auto) Miscellaneous Test 04/19/18 04/19/18 04/19/18 05:21 08:00 08:00 WBC 18.7 H RBC Hgb Hct MCV MCHC RDW Plt Count 531 H Lymph % (Auto) [place] % (Auto) Lymph # [place] # Baso # Seg Neutrophils % Seg Neuts % (Manual) Lymphocytes % (Manual) Monocytes % (Manual) Nucleated RBC % Seg Neutrophils # Seg Neutrophils # Man Lymphocytes # (Manual) Monocytes # (Manual) POC ABG pH POC ABG pCO2 POC ABG pO2 Sodium Potassium Chloride Carbon Dioxide BUN 18 H Creatinine 0.5 L Glucose 141 H POC Glucose 146 H Calcium Phosphorus Magnesium AST ALT 76 H Alkaline Phosphatase 142 H C-Reactive Protein Total Protein Albumin 2.4 L Urine WBC (Auto) Miscellaneous Test 04/19/18 04/19/18 04/20/18 12:12 17:41 00:21 WBC RBC Hgb Hct MCV MCHC RDW Plt Count Lymph % (Auto) [place] % (Auto) Lymph # [place] # Baso # Seg Neutrophils % Seg Neuts % (Manual) Lymphocytes % (Manual) Monocytes % (Manual) Nucleated RBC % Seg Neutrophils # Seg Neutrophils # Man Lymphocytes # (Manual) Monocytes # (Manual) POC ABG pH POC ABG pCO2 POC ABG pO2 Sodium Potassium Chloride Carbon Dioxide BUN Creatinine Glucose POC Glucose 161 H 134 H 159 H Calcium Phosphorus Magnesium AST ALT Alkaline Phosphatase C-Reactive Protein Total Protein Albumin Urine WBC (Auto) Miscellaneous Test 04/20/18 04/20/18 04/20/18 04:00 04:00 07:05 WBC 16.5 H RBC 3.51 L Hgb 9.9 L Hct 30.1 L MCV MCHC RDW Plt Count 530 H Lymph % (Auto) 10.7 L [place] % (Auto) 9.2 H Lymph # [place] # 1.5 H Baso # Seg Neutrophils % 78.5 H Seg Neuts % (Manual) Lymphocytes % (Manual) Monocytes % (Manual) Nucleated RBC % Seg Neutrophils # 13.0 H Seg Neutrophils # Man Lymphocytes # (Manual) Monocytes # (Manual) POC ABG pH POC ABG pCO2 POC ABG pO2 Sodium Potassium Chloride Carbon Dioxide BUN 19 H Creatinine 0.6 L Glucose 185 H POC Glucose 166 H Calcium Phosphorus Magnesium AST ALT Alkaline Phosphatase C-Reactive Protein Total Protein Albumin Urine WBC (Auto) Miscellaneous Test 04/20/18 04/20/18 04/21/18 12:59 19:06 00:17 WBC RBC Hgb Hct MCV MCHC RDW Plt Count Lymph % (Auto) [place] % (Auto) Lymph # [place] # Baso # Seg Neutrophils % Seg Neuts % (Manual) Lymphocytes % (Manual) Monocytes % (Manual) Nucleated RBC % Seg Neutrophils # Seg Neutrophils # Man Lymphocytes # (Manual) Monocytes # (Manual) POC ABG pH POC ABG pCO2 POC ABG pO2 Sodium Potassium Chloride Carbon Dioxide BUN Creatinine Glucose POC Glucose 166 H 170 H 178 H Calcium Phosphorus Magnesium AST ALT Alkaline Phosphatase C-Reactive Protein Total Protein Albumin Urine WBC (Auto) Miscellaneous Test 04/21/18 04/21/18 04/21/18 06:15 06:15 06:39 WBC 15.1 H RBC 3.48 L Hgb 9.8 L Hct 30.2 L MCV MCHC RDW Plt Count 499 H Lymph % (Auto) [place] % (Auto) 8.7 H Lymph # [place] # 1.3 H Baso # 0.2 H Seg Neutrophils % 74.7 H Seg Neuts % (Manual) Lymphocytes % (Manual) Monocytes % (Manual) Nucleated RBC % Seg Neutrophils # 11.3 H Seg Neutrophils # Man Lymphocytes # (Manual) Monocytes # (Manual) POC ABG pH POC ABG pCO2 POC ABG pO2 Sodium Potassium Chloride 108.8 H Carbon Dioxide BUN 18 H Creatinine 0.6 L Glucose 157 H POC Glucose 153 H Calcium 8.0 L Phosphorus Magnesium AST ALT Alkaline Phosphatase C-Reactive Protein Total Protein Albumin Urine WBC (Auto) Miscellaneous Test 04/21/18 04/21/18 04/21/18 11:49 17:07 22:07 WBC RBC Hgb Hct MCV MCHC RDW Plt Count Lymph % (Auto) [place] % (Auto) Lymph # [place] # Baso # Seg Neutrophils % Seg Neuts % (Manual) Lymphocytes % (Manual) Monocytes % (Manual) Nucleated RBC % Seg Neutrophils # Seg Neutrophils # Man Lymphocytes # (Manual) Monocytes # (Manual) POC ABG pH POC ABG pCO2 POC ABG pO2 Sodium Potassium Chloride Carbon Dioxide BUN Creatinine Glucose POC Glucose 184 H 163 H 169 H Calcium Phosphorus Magnesium AST ALT Alkaline Phosphatase C-Reactive Protein Total Protein Albumin Urine WBC (Auto) Miscellaneous Test 04/22/18 04/22/18 04/22/18 07:00 07:00 08:52 WBC 14.0 H RBC 3.26 L Hgb 9.3 L Hct 28.6 L MCV MCHC RDW Plt Count 460 H Lymph % (Auto) 13.0 L [place] % (Auto) 10.1 H Lymph # [place] # 1.4 H Baso # Seg Neutrophils % 74.4 H Seg Neuts % (Manual) Lymphocytes % (Manual) Monocytes % (Manual) Nucleated RBC % Seg Neutrophils # 10.4 H Seg Neutrophils # Man Lymphocytes # (Manual) Monocytes # (Manual) POC ABG pH POC ABG pCO2 POC ABG pO2 Sodium Potassium Chloride Carbon Dioxide BUN 19 H Creatinine 0.6 L Glucose 159 H POC Glucose 156 H Calcium Phosphorus Magnesium AST ALT Alkaline Phosphatase C-Reactive Protein Total Protein Albumin Urine WBC (Auto) Miscellaneous Test 04/22/18 04/22/18 04/22/18 12:34 16:20 21:42 WBC RBC Hgb Hct MCV MCHC RDW Plt Count Lymph % (Auto) [place] % (Auto) Lymph # [place] # Baso # Seg Neutrophils % Seg Neuts % (Manual) Lymphocytes % (Manual) Monocytes % (Manual) Nucleated RBC % Seg Neutrophils # Seg Neutrophils # Man Lymphocytes # (Manual) Monocytes # (Manual) POC ABG pH POC ABG pCO2 POC ABG pO2 Sodium Potassium Chloride Carbon Dioxide BUN Creatinine Glucose POC Glucose 150 H 148 H 134 H Calcium Phosphorus Magnesium AST ALT Alkaline Phosphatase C-Reactive Protein Total Protein Albumin Urine WBC (Auto) Miscellaneous Test 04/23/18 04/23/18 04/23/18 05:45 05:45 08:45 WBC 12.5 H RBC 3.41 L Hgb 9.6 L Hct 29.6 L MCV MCHC RDW Plt Count 441 H Lymph % (Auto) [place] % (Auto) 11.3 H Lymph # [place] # 1.4 H Baso # Seg Neutrophils % 70.2 H Seg Neuts % (Manual) Lymphocytes % (Manual) Monocytes % (Manual) Nucleated RBC % Seg Neutrophils # 9.0 H Seg Neutrophils # Man Lymphocytes # (Manual) Monocytes # (Manual) POC ABG pH POC ABG pCO2 POC ABG pO2 Sodium Potassium Chloride Carbon Dioxide BUN 19 H Creatinine 0.6 L Glucose 119 H POC Glucose 154 H Calcium Phosphorus Magnesium 2.40 H AST ALT Alkaline Phosphatase C-Reactive Protein Total Protein Albumin Urine WBC (Auto) Miscellaneous Test 04/23/18 04/23/18 04/24/18 11:45 22:09 07:26 WBC RBC Hgb Hct MCV MCHC RDW Plt Count Lymph % (Auto) [place] % (Auto) Lymph # [place] # Baso # Seg Neutrophils % Seg Neuts % (Manual) Lymphocytes % (Manual) Monocytes % (Manual) Nucleated RBC % Seg Neutrophils # Seg Neutrophils # Man Lymphocytes # (Manual) Monocytes # (Manual) POC ABG pH POC ABG pCO2 POC ABG pO2 Sodium Potassium Chloride Carbon Dioxide BUN Creatinine Glucose POC Glucose 132 H 113 H 164 H Calcium Phosphorus Magnesium AST ALT Alkaline Phosphatase C-Reactive Protein Total Protein Albumin Urine WBC (Auto) Miscellaneous Test 04/24/18 04/24/18 04/24/18 08:30 08:30 11:27 WBC 14.4 H RBC 3.30 L Hgb 9.6 L Hct 28.4 L MCV MCHC RDW Plt Count Lymph % (Auto) 12.8 L [place] % (Auto) 9.1 H Lymph # [place] # 1.3 H Baso # 0.2 H Seg Neutrophils % 76.4 H Seg Neuts % (Manual) Lymphocytes % (Manual) Monocytes % (Manual) Nucleated RBC % Seg Neutrophils # 11.0 H Seg Neutrophils # Man Lymphocytes # (Manual) Monocytes # (Manual) POC ABG pH POC ABG pCO2 POC ABG pO2 Sodium Potassium Chloride Carbon Dioxide BUN 18 H Creatinine Glucose 155 H POC Glucose 133 H Calcium Phosphorus Magnesium AST ALT Alkaline Phosphatase C-Reactive Protein Total Protein Albumin Urine WBC (Auto) Miscellaneous Test Allied health notes reviewed: nursing
[2018-04-24 15:43] LABS: Bilirubin,Urine NEG (Negative); Blood,Urine NEG (Negative); Color,Urine Yellow (Yellow); Mucus,Urine FEW /HPF; Urobilinogen,Urine < 2.0 mg/dL (<2.0)
--- NOTE | 2018-04-24 19:40 | Progress Note ---
Assessment and Plan 58 y.o. f s/p lap sleeve gastrectomy with hiatal hernia repair and partial fundoplication 03/30, presents to ER with abdominal pain, now s/p dx lap, abdominal washout, repair of gastric perforation and placement of drains , s/p abdominal pigtail placement x 2 Neuro: dilualdid, morphine prn. toradol for pain control. Ativan prn for agitation for hx of anxiety baseline Cardio: tachycardia- improved with pain control and improving/resolving sepsis - ->resolved hx of HTN: enalaril IV, metop , clonidine patch -hospitalist consult Pulm: pulm toilet per pulm Left pleural effusion: if pulm function continues to improve, she may not require the drainage Appreciate pulmonary consult -IS CXr 04/09: left effusion, cardiomeg. no pulm congestion CT chest: no PE GI: npo, . monitor drain(s) output -CT abd/pelvis: fluid collection anterior to liver, leak persistent. s/p IR drain x 2. -plan for CT tomorrow. Nutrition: PIcc line for tpn. -monitor lytes ID: gastric perf. vanco-complted flagyl cefipime- completed most recent surgical drain: staph aureus -umbilical incision: change packing daily peritoneal cultures: serratia Pneumonia: vanco . Dosing per pharm. -completed -ID consult appreciated Fever continues- off/on. f/u cultures. leukocytosis If fevers continues, f/u CT abd. pelvis --> collections --> 04/20: -if continues to spike fevers will discuss with ID /Lytes: f/u am labs. monitor urine out. DVT proph: lovenox scds GI proph: protonix Out of bed to chair/ PT Dispo: once the LUQ drain is less white/yellow, has less output. and the NG is less white thick fluid and leukocytosis improved-> more likely of perf healed -- > will repeat CT with iv and po contrast. If leak persists will discuss sleeve stent with pt and contact GI. -Goal of CT in the next 1 day Subjective Narrative: cramping abdominal pain. Fever. denies nausea and vomiting. +void. Objective Vital Signs - 12hr 04/24/18 04/24/18 04/24/18 08:13 08:37 09:20 Temperature Pulse Rate 107 H Pulse Rate [ 104 H 101 H Anterior Bilateral] Respiratory Rate Respiratory Rate [Abdomen] Respiratory 18 18 Rate [Anterior Bilateral] Blood Pressure 128/69 Blood Pressure [Left] O2 Sat by Pulse Oximetry 04/24/18 04/24/18 04/24/18 10:00 15:06 15:27 Temperature 99.2 F Pulse Rate 104 H 104 H Pulse Rate [ Anterior Bilateral] Respiratory 20 Rate Respiratory 17 Rate [Abdomen] Respiratory Rate [Anterior Bilateral] Blood Pressure 112/67 112/67 Blood Pressure [Left] O2 Sat by Pulse 98 Oximetry 04/24/18 16:00 Temperature 99.2 F Pulse Rate 102 H Pulse Rate [ Anterior Bilateral] Respiratory 20 Rate Respiratory Rate [Abdomen] Respiratory Rate [Anterior Bilateral] Blood Pressure Blood Pressure 112/67 [Left] O2 Sat by Pulse 98 Oximetry - General physical appearance well developed, well nourished, no distress - Respiratory normal expansion, normal respiratory effort, clear to auscultation - Abdomen soft, other (nontende. justin and drains in place. LUQ drain yellow thick fluid. umbicial dressing in plce. ) - Labs 04/25/18 11:31 04/25/18 11:31 Diabetes panel 04/24/18 Range/Units 08:30 Sodium 139 (137-145) mmol/L Potassium 4.3 (3.6-5.0) mmol/L Chloride 100.3 (98-107) mmol/L Carbon Dioxide 26 (22-30) mmol/L BUN 18 H (7-17) mg/dL Creatinine 0.7 (0.7-1.2) mg/dL Glucose 155 H (65-100) mg/dL Calcium 8.5 (8.4-10.2) mg/dL Calcium panel 04/24/18 Range/Units 08:30 Calcium 8.5 (8.4-10.2) mg/dL Phosphorus 3.10 D (2.5-4.5) mg/dL Pituitary panel 04/24/18 Range/Units 08:30 Sodium 139 (137-145) mmol/L Potassium 4.3 (3.6-5.0) mmol/L Chloride 100.3 (98-107) mmol/L Carbon Dioxide 26 (22-30) mmol/L BUN 18 H (7-17) mg/dL Creatinine 0.7 (0.7-1.2) mg/dL Glucose 155 H (65-100) mg/dL Calcium 8.5 (8.4-10.2) mg/dL Adrenal panel 04/24/18 Range/Units 08:30 Sodium 139 (137-145) mmol/L Potassium 4.3 (3.6-5.0) mmol/L Chloride 100.3 (98-107) mmol/L Carbon Dioxide 26 (22-30) mmol/L BUN 18 H (7-17) mg/dL Creatinine 0.7 (0.7-1.2) mg/dL Glucose 155 H (65-100) mg/dL Calcium 8.5 (8.4-10.2) mg/dL
[2018-04-24] MEDS ORDERED: TPN ADULT 1,800 ML IV SCH (20:00)
[2018-04-25] MEDS: DILAUDID IV PRN ×7 (00:28→23:23)
[2018-04-25] MEDS: ZOFRAN IV PRN ×2 (01:58→23:24)
[2018-04-25] MEDS: NORMODYNE IV SCH ×7 (02:17→23:19)
[2018-04-25] MEDS: PULMICORT IH SCH ×2 (09:02→20:58)
[2018-04-25] MEDS: BROVANA NEBU IH SCH ×2 (09:02→20:58)
[2018-04-25] MEDS: PROTONIX IV SCH ×2 (09:30→23:05)
[2018-04-25] MEDS: SODIUM CHLORIDE FLUSH SYRINGE 10 ML IV SCH ×2 (10:00→23:05)
--- NOTE | 2018-04-25 10:33 | Progress Note ---
Assessment and Plan 58 y.o. f s/p lap sleeve gastrectomy with hiatal hernia repair and partial fundoplication 03/30, presents to ER with abdominal pain, now s/p dx lap, abdominal washout, repair of gastric perforation and placement of drains , s/p abdominal pigtail placement x 2 Neuro: dilualdid, morphine prn. toradol for pain control. Ativan prn for agitation for hx of anxiety baseline Cardio: tachycardia- improved with pain control and improving/resolving sepsis - ->resolved hx of HTN: enalaril IV, metop , clonidine patch -hospitalist consult Pulm: pulm toilet per pulm Left pleural effusion: if pulm function continues to improve, she may not require the drainage Appreciate pulmonary consult -IS CXr 04/09: left effusion, cardiomeg. no pulm congestion CT chest: no PE GI: npo, . monitor drain(s) output -CT abd/pelvis: fluid collection anterior to liver, leak persistent. s/p IR drain x 2. -plan for CT tomorrow. Nutrition: PIcc line for tpn. -monitor lytes ID: gastric perf. vanco-complted flagyl cefipime- completed most recent surgical drain: staph aureus -umbilical incision: change packing daily peritoneal cultures: serratia Pneumonia: vanco . Dosing per pharm. -completed -ID consult appreciated Fever continues- off/on. f/u cultures. leukocytosis If fevers continues, f/u CT abd. pelvis --> collections --> 04/20: -if continues to spike fevers will discuss with ID /Lytes: f/u am labs. monitor urine out. DVT proph: lovenox scds GI proph: protonix Out of bed to chair/ PT Dispo: once the LUQ drain is less white/yellow, has less output. and the NG is less white thick fluid and leukocytosis improved-> more likely of perf healed -- > will repeat CT with iv and po contrast. If leak persists will discuss sleeve stent with pt and contact GI. -Goal of CT : TODAY Subjective Narrative: Pt continues to have cramping abdominal pain. On and off. Similar as yesterday. +ambulation. denies nausea and vomiting. 12hrs output JUSTIN 1: 35cc JUSTIN 2 : 7cc JUSTIN 3 7cc Pigtail 4: 5cc overnight -Day: 50cc drained [place] yellow fluid Objective Vital Signs - 12hr 04/25/18 04/25/18 04/25/18 00:30 01:03 02:24 Temperature 98.6 F Pulse Rate 110 H 107 H 105 H Pulse Rate [ Anterior Bilateral] Respiratory 22 18 Rate Respiratory Rate [Anterior Bilateral] Blood Pressure 146/73 145/64 Blood Pressure [Left] O2 Sat by Pulse 100 95 Oximetry 04/25/18 04/25/18 04/25/18 04:31 07:24 07:28 Temperature 99.3 F 99.0 F Pulse Rate 101 H 106 H 96 H Pulse Rate [ Anterior Bilateral] Respiratory 20 18 Rate Respiratory Rate [Anterior Bilateral] Blood Pressure 132/75 150/77 121/67 Blood Pressure [Left] O2 Sat by Pulse 94 95 Oximetry 04/25/18 04/25/18 04/25/18 08:00 09:03 09:20 Temperature 99 F Pulse Rate 96 H Pulse Rate [ 96 H 98 H Anterior Bilateral] Respiratory 20 Rate Respiratory 18 20 Rate [Anterior Bilateral] Blood Pressure Blood Pressure 121/67 [Left] O2 Sat by Pulse 95 Oximetry - General physical appearance well developed, well nourished, no distress - Respiratory normal expansion, normal respiratory effort, clear to auscultation - Abdomen soft, other (umbilical tender. no rebound no guarding. justin and pigtail in place. soft. ) - Integumentary no rash, no growths - Neurologic normal coordination, normal sensation - Musculoskeletal normal gait - Psychiatric oriented to time, oriented to person, oriented to place - Labs 04/25/18 11:31 04/25/18 11:31
[2018-04-25 11:47] LABS: Basophils # (Auto) 0.1 K/mm3 (0.0-0.1); Basophils % (Auto) 0.8 % (0.0-1.8); Eosinophils # (Auto) 0.1 K/mm3 (0.0-0.4); Eosinophils % (Auto) 0.6 % (0.0-4.3); Hematocrit 29.5 % (30.3-42.9); Hemoglobin 9.8 gm/dl (10.1-14.3); Lymphocytes # (Auto) 1.4 K/mm3 (1.2-5.4); Lymphocytes % (Auto) 12.3 % (13.4-35.0); Mean Corpuscular HGB Conc 33 % (30-34); Mean Corpuscular Hemoglobin 29 pg (28-32); Mean Corpuscular Volume 87 fl (79-97); Platelet Count 376 K/mm3 (140-440); Red Blood Count 3.41 M/mm3 (3.65-5.03); Red Cell Distribution Width 14.3 % (13.2-15.2)
[2018-04-25 12:11] LABS: BUN/Creatinine Ratio 24; Blood Urea Nitrogen 17 mg/dL (7-17); Calcium 8.4 mg/dL (8.4-10.2); Hemolysis Index 0
--- NOTE | 2018-04-25 14:22 | Progress Note ---
Assessment and Plan /Sepsis due to intraabdominal infection and PNA. --stopped cefepime and flagyl D10/10 (s/p zosyn 7 days) - total 17 days of abx - S/p vanco IV x 10 days until 04/19 for MSSA - monitor fever and leukocytosis off abx - ID Physician following /Leukocytosis due to sepsis, trending down /Gastric perforation s/p exploratory lap, repair of perforation on 04/07/18. Surg is attending, managing on TPN /Pneumoperitoneum due to gastric perforation, s/p repair of perforation on 04/07/[address] /Acute respiratory failure. On supplemental Oxygen by [facility] on case /Bilateral pneumonia vs atelectasis completed abx /Hypertension. Monitor BP On Clonidine patch and Lopressor. Also Hydraazine iv prn. /Hypokalemia, resolved /Obstructive seep apnea, CPAP at bedtime Full code status Disposition: SNF when clear by surgery Hospitalist Physical Constitutional: Not in acute distress, obese, HEENT: Atraumatic, normocephalic Neck: supple, no lymphadenopathy, Lungs: no Bilateral rhonchi, no wheezing, CVS: S1-S2 regular, no murmurs, rubs or gallop, Abdomen: soft, mild tender, dressing.bowel sounds present, Musculoskeletal: No edema, clubbing, or cyanosis WELL SERVICES OPERATOR: Awake,alert,oriented x brief history: 58 y.o. female s/p lap sleeve gastrectomy with hiatal hernia repair and partial fundoplication 03/30, presents to ER with abdominal pain. In the ER she was noted to have a WBC of >20, tachycardiac as well. A CT abd/ pelvis was performed= free air. Now s/p dx lap, abdominal washout, repair of gastric perforation and placement of drains , s/p abdominal pigtail placement x 2. Completed abx for intraabdominal infection, now waiting for surgery clearance for disposition. Subjective Date of service: 04/25/18 Principal diagnosis: Sepsis Syndrome; Acute Hypoxemic Resp Failure; Acute Encephalopathy Interval history: Pt seen and examined spiked fever upto 102.4 On TPN, off NG suction (NG tube came off 04/23 and was not replaced since then) Objective - Constitutional Vitals: Vital Signs - 12hr 04/25/18 04/25/18 04/25/18 02:24 04:31 07:24 Temperature 99.3 F Pulse Rate 105 H 101 H 106 H Pulse Rate [ Anterior Bilateral] Respiratory 20 Rate Respiratory Rate [Anterior Bilateral] Blood Pressure 145/64 132/75 150/77 Blood Pressure [Left] O2 Sat by Pulse 94 Oximetry 04/25/18 04/25/18 04/25/18 07:28 08:00 09:03 Temperature 99.0 F 99 F Pulse Rate 96 H 96 H Pulse Rate [ 96 H Anterior Bilateral] Respiratory 18 20 Rate Respiratory 18 Rate [Anterior Bilateral] Blood Pressure 121/67 Blood Pressure 121/67 [Left] O2 Sat by Pulse 95 95 Oximetry 04/25/18 04/25/18 09:20 11:01 Temperature 99.0 F Pulse Rate 101 H Pulse Rate [ 98 H Anterior Bilateral] Respiratory 20 Rate Respiratory 20 Rate [Anterior Bilateral] Blood Pressure 132/76 Blood Pressure [Left] O2 Sat by Pulse 97 Oximetry - Labs CBC & Chem 7: 04/25/18 11:31 04/25/18 11:31 Labs: Abnormal lab results 04/24/18 04/24/18 04/25/18 Range/Units 16:32 22:17 06:16 WBC (4.5-11.0) K/mm3 RBC (3.65-5.03) M/mm3 Hgb (10.1-14.3) gm/dl Hct (30.3-42.9) % Lymph % (Auto) (13.4-35.0) % [place] % (Auto) (0.0-7.3) % [place] # (0.0-0.8) K/mm3 Seg Neutrophils % (40.0-70.0) % Seg Neutrophils # (1.8-7.7) K/mm3 Glucose (65-100) mg/dL POC Glucose 132 H 124 H 133 H (70-105) 04/25/18 04/25/18 04/25/18 Range/Units 07:39 11:10 11:31 WBC 11.3 H (4.5-11.0) K/mm3 RBC 3.41 L (3.65-5.03) M/mm3 Hgb 9.8 L (10.1-14.3) gm/dl Hct 29.5 L (30.3-42.9) % Lymph % (Auto) 12.3 L (13.4-35.0) % [place] % (Auto) 9.0 H (0.0-7.3) % [place] # 1.0 H (0.0-0.8) K/mm3 Seg Neutrophils % 77.3 H (40.0-70.0) % Seg Neutrophils # 8.7 H (1.8-7.7) K/mm3 Glucose (65-100) mg/dL POC Glucose 141 H 145 H (70-105) 04/25/18 Range/Units 11:31 WBC (4.5-11.0) K/mm3 RBC (3.65-5.03) M/mm3 Hgb (10.1-14.3) gm/dl Hct (30.3-42.9) % Lymph % (Auto) (13.4-35.0) % [place] % (Auto) (0.0-7.3) % [place] # (0.0-0.8) K/mm3 Seg Neutrophils % (40.0-70.0) % Seg Neutrophils # (1.8-7.7) K/mm3 Glucose 153 H (65-100) mg/dL POC Glucose (70-105)
--- NOTE | 2018-04-25 15:47 | Progress Note ---
Assessment and Plan Sepsis syndrome with altered mental status in the setting of the systemic inflammatory response syndrome. Mild metabolic acidosis Perforated abdominal viscus status post exploratory laparotomy and repair. Obesity. Atypical Chest Pain Obstructive sleep apnea according to the history. Acute encephalopathy, presumably toxic metabolic. History of hypertension. Arthritis. Gastroesophageal reflux disease. Morbid obesity. Acute hypoxemic respiratory failure - continue supplemental oxygen to keep sats > 90% - prn analgesia while watching for respiratory depression - to repeat CT abd/pelvis to evaluate for persistent leak +/- IR intervention - anti-infectives per ID recs (following off AB's) - continue PICC line for TPN - continue PT/OT - continue GI & VTE prophylaxis - continue bronchodilators for COPD (brovana and changed duonebs to prn) - continue BIPAP scheduled qhs for WILVER with prn daytime use - wound care per WCT / RN and surgeon - continue other care per attending / other consultants - SNF tentatively once cleared by surgery team ...... re-evaluate in am & prn ...25' Subjective Date of service: 04/25/18 Principal diagnosis: Sepsis Syndrome; Acute Hypoxemic Resp Failure; Acute Encephalopathy Interval history: Patient is seen today for: Sepsis Syndrome; Acute Hypoxemic Resp Failure; Acute Encephalopathy Seen and examined at bedside; 24hour events reviewed; nursing and respiratory care staff consulted; no adverse overnight events reported to me; resting peacefully in bed; continues to complain of cramping abdominal pain; UA & Cultures negative so far; No N/V/F/C; denies acute chest pains or increased SOB Objective Vital Signs - 12hr 04/25/18 04/25/18 04/25/18 04:31 07:24 07:28 Temperature 99.3 F 99.0 F Pulse Rate 101 H 106 H 96 H Pulse Rate [ Anterior Bilateral] Respiratory 20 18 Rate Respiratory Rate [Anterior Bilateral] Blood Pressure 132/75 150/77 121/67 Blood Pressure [Left] O2 Sat by Pulse 94 95 Oximetry 04/25/18 04/25/18 04/25/18 08:00 09:03 09:20 Temperature 99 F Pulse Rate 96 H Pulse Rate [ 96 H 98 H Anterior Bilateral] Respiratory 20 Rate Respiratory 18 20 Rate [Anterior Bilateral] Blood Pressure Blood Pressure 121/67 [Left] O2 Sat by Pulse 95 Oximetry 04/25/18 11:01 Temperature 99.0 F Pulse Rate 101 H Pulse Rate [ Anterior Bilateral] Respiratory 20 Rate Respiratory Rate [Anterior Bilateral] Blood Pressure 132/76 Blood Pressure [Left] O2 Sat by Pulse 97 Oximetry Constitutional: no acute distress, alert Eyes: non-icteric ENT: oropharynx moist, other (no thyromegaly) Neck: supple, no lymphadenopathy, no JVD, other (large neck circumference) Effort: mildly labored Ascultation: Bilateral: diminished breath sounds, rhonchi (scant in bases) Percussion: Bilateral: not dull Cardiovascular: regular rate and rhythm, other (No R/M) Gastrointestinal: hypoactive bowel sounds, soft, tender (mild), non-distended, other (no palpable HSM) Integumentary: normal Extremities: no cyanosis, no edema, pulses normal, no ischemia or petechiae Neurologic: normal mental status, non-focal exam (grossly), pupils equal and round, CN II-XII normal, motor strength normal and Psychiatric: mood appropriate, affect normal CBC and BMP: 04/26/18 06:10 04/26/18 06:10 ABG, PT/INR, D-dimer: ABG POC ABG pH 7.519 (7.35-7.45) H 04/10/18 12:59 POC ABG pCO2 29.3 (35-45) L 04/10/18 12:59 POC ABG pO2 63 (80-105) L 04/10/18 12:59 POC ABG HCO3 23.9 04/10/18 12:59 POC ABG Total CO2 25 04/10/18 12:59 POC ABG O2 Sat 94 04/10/18 12:59 PT/INR, D-dimer PT 13.5 Sec. (12.2-14.9) 04/07/18 09:41 INR 0.98 (0.87-1.13) 04/07/18 09:41 Abnormal lab findings: Abnormal Labs 04/07/18 04/07/18 04/07/18 00:05 00:05 09:41 WBC 18.4 H 21.3 H RBC Hgb Hct MCV MCHC RDW Plt Count Lymph % (Auto) 4.5 L [place] % (Auto) Lymph # 0.8 L [place] # 1.2 H Baso # Seg Neutrophils % 88.9 H Seg Neuts % (Manual) 85.0 H Lymphocytes % (Manual) 4.0 L Monocytes % (Manual) Nucleated RBC % Seg Neutrophils # 16.4 H Seg Neutrophils # Man 18.1 H Lymphocytes # (Manual) 0.9 L Monocytes # (Manual) 1.1 H POC ABG pH POC ABG pCO2 POC ABG pO2 Sodium Potassium Chloride Carbon Dioxide BUN Creatinine Glucose 123 H POC Glucose Calcium 8.0 L Phosphorus Magnesium 1.60 L AST 59 H ALT Alkaline Phosphatase C-Reactive Protein Total Protein Albumin 2.9 L Urine WBC (Auto) Miscellaneous Test 04/07/18 04/08/18 04/08/18 09:41 00:20 10:25 WBC 19.2 H RBC Hgb Hct MCV MCHC RDW Plt Count Lymph % (Auto) 5.4 L [place] % (Auto) Lymph # 1.0 L [place] # 1.1 H Baso # Seg Neutrophils % 88.9 H Seg Neuts % (Manual) Lymphocytes % (Manual) Monocytes % (Manual) Nucleated RBC % Seg Neutrophils # 17.1 H Seg Neutrophils # Man Lymphocytes # (Manual) Monocytes # (Manual) POC ABG pH POC ABG pCO2 POC ABG pO2 Sodium Potassium 3.3 L Chloride 95.1 L Carbon Dioxide 21 L BUN Creatinine Glucose 113 H POC Glucose Calcium Phosphorus Magnesium AST ALT Alkaline Phosphatase C-Reactive Protein Total Protein Albumin 3.6 L Urine WBC (Auto) 45.0 H Miscellaneous Test 04/08/18 04/08/18 04/08/18 10:25 13:33 23:53 WBC 12.8 H RBC Hgb Hct MCV MCHC RDW Plt Count Lymph % (Auto) [place] % (Auto) Lymph # [place] # Baso # Seg Neutrophils % Seg Neuts % (Manual) 97.0 H Lymphocytes % (Manual) 2.0 L Monocytes % (Manual) Nucleated RBC % Seg Neutrophils # Seg Neutrophils # Man 12.4 H Lymphocytes # (Manual) 0.3 L Monocytes # (Manual) POC ABG pH POC ABG pCO2 POC ABG pO2 Sodium Potassium 3.5 L Chloride Carbon Dioxide BUN Creatinine Glucose 123 H POC Glucose Calcium 7.9 L Phosphorus Magnesium AST 53 H ALT Alkaline Phosphatase C-Reactive Protein 52.00 H Total Protein 6.1 L Albumin 2.7 L Urine WBC (Auto) Miscellaneous Test 04/09/18 04/09/18 04/09/18 04:20 04:20 13:38 WBC 16.2 H RBC Hgb Hct MCV MCHC RDW Plt Count Lymph % (Auto) [place] % (Auto) Lymph # [place] # Baso # Seg Neutrophils % Seg Neuts % (Manual) 89.0 H Lymphocytes % (Manual) 4.0 L Monocytes % (Manual) Nucleated RBC % Seg Neutrophils # Seg Neutrophils # Man 14.4 H Lymphocytes # (Manual) 0.6 L Monocytes # (Manual) POC ABG pH 7.494 H POC ABG pCO2 31.6 L POC ABG pO2 68 L Sodium Potassium 3.5 L Chloride Carbon Dioxide BUN Creatinine 0.6 L Glucose 117 H POC Glucose Calcium 7.9 L Phosphorus 1.50 L D Magnesium AST ALT Alkaline Phosphatase C-Reactive Protein Total Protein 5.6 L Albumin 2.9 L Urine WBC (Auto) Miscellaneous Test 04/09/18 04/09/18 04/09/18 18:25 21:45 21:45 WBC 21.3 H RBC 3.62 L Hgb Hct MCV MCHC 35 H RDW Plt Count Lymph % (Auto) [place] % (Auto) Lymph # [place] # Baso # Seg Neutrophils % Seg Neuts % (Manual) 90.0 H Lymphocytes % (Manual) 6.0 L Monocytes % (Manual) Nucleated RBC % 1.0 H Seg Neutrophils # Seg Neutrophils # Man 19.2 H Lymphocytes # (Manual) Monocytes # (Manual) 0.9 H POC ABG pH POC ABG pCO2 POC ABG pO2 Sodium Potassium Chloride Carbon Dioxide BUN 5 L Creatinine 0.5 L Glucose 134 H POC Glucose 155 H Calcium 7.9 L Phosphorus 2.20 L D Magnesium AST ALT Alkaline Phosphatase C-Reactive Protein Total Protein Albumin Urine WBC (Auto) Miscellaneous Test 04/09/18 04/10/18 04/10/18 23:38 04:07 04:07 WBC 20.2 H RBC 3.38 L Hgb 9.4 L Hct 28.9 L MCV MCHC RDW Plt Count Lymph % (Auto) [place] % (Auto) Lymph # [place] # Baso # Seg Neutrophils % Seg Neuts % (Manual) Lymphocytes % (Manual) 6.0 L Monocytes % (Manual) Nucleated RBC % Seg Neutrophils # Seg Neutrophils # Man 10.7 H Lymphocytes # (Manual) Monocytes # (Manual) POC ABG pH POC ABG pCO2 POC ABG pO2 Sodium Potassium Chloride Carbon Dioxide BUN 6 L Creatinine 0.6 L Glucose 176 H POC Glucose 160 H Calcium 7.7 L Phosphorus Magnesium AST ALT Alkaline Phosphatase C-Reactive Protein Total Protein Albumin Urine WBC (Auto) Miscellaneous Test 04/10/18 04/10/18 04/10/18 05:29 11:55 12:59 WBC RBC Hgb Hct MCV MCHC RDW Plt Count Lymph % (Auto) [place] % (Auto) Lymph # [place] # Baso # Seg Neutrophils % Seg Neuts % (Manual) Lymphocytes % (Manual) Monocytes % (Manual) Nucleated RBC % Seg Neutrophils # Seg Neutrophils # Man Lymphocytes # (Manual) Monocytes # (Manual) POC ABG pH 7.519 H POC ABG pCO2 29.3 L POC ABG pO2 63 L Sodium Potassium Chloride Carbon Dioxide BUN Creatinine Glucose POC Glucose 171 H 194 H Calcium Phosphorus Magnesium AST ALT Alkaline Phosphatase C-Reactive Protein Total Protein Albumin Urine WBC (Auto) Miscellaneous Test 04/10/18 04/10/18 04/10/18 18:11 18:28 18:28 WBC 22.7 H RBC 3.62 L Hgb Hct MCV MCHC RDW Plt Count Lymph % (Auto) [place] % (Auto) Lymph # [place] # Baso # Seg Neutrophils % Seg Neuts % (Manual) 84.0 H Lymphocytes % (Manual) 7.0 L Monocytes % (Manual) 8.0 H Nucleated RBC % Seg Neutrophils # Seg Neutrophils # Man 19.1 H Lymphocytes # (Manual) Monocytes # (Manual) 1.8 H POC ABG pH POC ABG pCO2 POC ABG pO2 Sodium Potassium Chloride Carbon Dioxide BUN Creatinine Glucose POC Glucose 118 H Calcium Phosphorus Magnesium AST ALT Alkaline Phosphatase C-Reactive Protein 45.20 H Total Protein Albumin Urine WBC (Auto) Miscellaneous Test 04/10/18 04/10/18 04/11/18 18:28 23:45 03:35 WBC 20.9 H RBC 3.54 L Hgb 10.0 L Hct MCV MCHC RDW Plt Count Lymph % (Auto) [place] % (Auto) Lymph # [place] # Baso # Seg Neutrophils % Seg Neuts % (Manual) 80.0 H Lymphocytes % (Manual) 6.0 L Monocytes % (Manual) Nucleated RBC % Seg Neutrophils # Seg Neutrophils # Man 16.7 H Lymphocytes # (Manual) Monocytes # (Manual) POC ABG pH POC ABG pCO2 POC ABG pO2 Sodium Potassium 3.5 L Chloride Carbon Dioxide BUN 5 L Creatinine 0.5 L Glucose 108 H POC Glucose 149 H Calcium 8.3 L Phosphorus Magnesium AST ALT Alkaline Phosphatase C-Reactive Protein Total Protein Albumin Urine WBC (Auto) Miscellaneous Test 04/11/18 04/11/18 04/11/18 03:35 06:17 11:29 WBC RBC Hgb Hct MCV MCHC RDW Plt Count Lymph % (Auto) [place] % (Auto) Lymph # [place] # Baso # Seg Neutrophils % Seg Neuts % (Manual) Lymphocytes % (Manual) Monocytes % (Manual) Nucleated RBC % Seg Neutrophils # Seg Neutrophils # Man Lymphocytes # (Manual) Monocytes # (Manual) POC ABG pH POC ABG pCO2 POC ABG pO2 Sodium Potassium Chloride Carbon Dioxide BUN Creatinine 0.5 L Glucose 143 H POC Glucose 155 H 158 H Calcium 8.2 L Phosphorus Magnesium AST ALT Alkaline Phosphatase C-Reactive Protein Total Protein 6.0 L Albumin 2.2 L Urine WBC (Auto) Miscellaneous Test 04/11/18 04/11/18 04/12/18 18:13 23:51 05:29 WBC RBC Hgb Hct MCV MCHC RDW Plt Count Lymph % (Auto) [place] % (Auto) Lymph # [place] # Baso # Seg Neutrophils % Seg Neuts % (Manual) Lymphocytes % (Manual) Monocytes % (Manual) Nucleated RBC % Seg Neutrophils # Seg Neutrophils # Man Lymphocytes # (Manual) Monocytes # (Manual) POC ABG pH POC ABG pCO2 POC ABG pO2 Sodium Potassium Chloride Carbon Dioxide BUN Creatinine Glucose POC Glucose 135 H 143 H 150 H Calcium Phosphorus Magnesium AST ALT Alkaline Phosphatase C-Reactive Protein Total Protein Albumin Urine WBC (Auto) Miscellaneous Test 04/12/18 04/12/18 04/13/18 05:40 05:40 00:32 WBC 18.0 H RBC 3.34 L Hgb 9.5 L Hct 28.9 L MCV MCHC RDW Plt Count Lymph % (Auto) 7.4 L [place] % (Auto) 10.8 H Lymph # [place] # 1.9 H Baso # Seg Neutrophils % 81.1 H Seg Neuts % (Manual) Lymphocytes % (Manual) Monocytes % (Manual) Nucleated RBC % Seg Neutrophils # 14.6 H Seg Neutrophils # Man Lymphocytes # (Manual) Monocytes # (Manual) POC ABG pH POC ABG pCO2 POC ABG pO2 Sodium Potassium Chloride 107.7 H Carbon Dioxide 21 L BUN Creatinine 0.6 L Glucose 140 H POC Glucose 144 H Calcium Phosphorus Magnesium AST ALT Alkaline Phosphatase C-Reactive Protein Total Protein Albumin Urine WBC (Auto) Miscellaneous Test 04/13/18 04/13/18 04/13/18 04:20 04:20 04:20 WBC 18.1 H RBC 3.52 L Hgb 9.8 L Hct 30.1 L MCV MCHC RDW Plt Count Lymph % (Auto) 11.1 L [place] % (Auto) 13.6 H Lymph # [place] # 2.5 H Baso # Seg Neutrophils % 74.4 H Seg Neuts % (Manual) Lymphocytes % (Manual) Monocytes % (Manual) Nucleated RBC % Seg Neutrophils # 13.4 H Seg Neutrophils # Man Lymphocytes # (Manual) Monocytes # (Manual) POC ABG pH POC ABG pCO2 POC ABG pO2 Sodium Potassium Chloride Carbon Dioxide BUN Creatinine 0.5 L Glucose 142 H POC Glucose Calcium Phosphorus Magnesium AST ALT Alkaline Phosphatase C-Reactive Protein 29.60 H Total Protein Albumin Urine WBC (Auto) Miscellaneous Test 04/13/18 04/13/18 04/13/18 05:35 13:37 23:50 WBC RBC Hgb Hct MCV MCHC RDW Plt Count Lymph % (Auto) [place] % (Auto) Lymph # [place] # Baso # Seg Neutrophils % Seg Neuts % (Manual) Lymphocytes % (Manual) Monocytes % (Manual) Nucleated RBC % Seg Neutrophils # Seg Neutrophils # Man Lymphocytes # (Manual) Monocytes # (Manual) POC ABG pH POC ABG pCO2 POC ABG pO2 Sodium Potassium Chloride Carbon Dioxide BUN Creatinine Glucose POC Glucose 142 H 160 H Calcium Phosphorus Magnesium AST ALT Alkaline Phosphatase C-Reactive Protein Total Protein Albumin Urine WBC (Auto) Miscellaneous Test Flexitest 1 H 04/14/18 04/14/18 04/14/18 04:00 04:00 05:29 WBC 22.1 H RBC 3.59 L Hgb 9.9 L Hct MCV MCHC RDW Plt Count Lymph % (Auto) [place] % (Auto) Lymph # [place] # Baso # Seg Neutrophils % Seg Neuts % (Manual) 73.0 H Lymphocytes % (Manual) 9.0 L Monocytes % (Manual) 11.0 H Nucleated RBC % Seg Neutrophils # Seg Neutrophils # Man 16.1 H Lymphocytes # (Manual) Monocytes # (Manual) 2.4 H POC ABG pH POC ABG pCO2 POC ABG pO2 Sodium Potassium Chloride Carbon Dioxide BUN Creatinine Glucose 155 H POC Glucose 133 H Calcium Phosphorus Magnesium 2.50 H AST ALT Alkaline Phosphatase C-Reactive Protein Total Protein Albumin Urine WBC (Auto) Miscellaneous Test 04/14/18 04/14/18 04/14/18 12:47 16:01 23:42 WBC RBC Hgb Hct MCV MCHC RDW Plt Count Lymph % (Auto) [place] % (Auto) Lymph # [place] # Baso # Seg Neutrophils % Seg Neuts % (Manual) Lymphocytes % (Manual) Monocytes % (Manual) Nucleated RBC % Seg Neutrophils # Seg Neutrophils # Man Lymphocytes # (Manual) Monocytes # (Manual) POC ABG pH POC ABG pCO2 POC ABG pO2 Sodium Potassium Chloride Carbon Dioxide BUN Creatinine Glucose POC Glucose 183 H 153 H 172 H Calcium Phosphorus Magnesium AST ALT Alkaline Phosphatase C-Reactive Protein Total Protein Albumin Urine WBC (Auto) Miscellaneous Test 04/15/18 04/15/18 04/15/18 04:42 04:42 05:49 WBC 21.5 H RBC 3.37 L Hgb 9.4 L Hct 28.9 L MCV MCHC RDW Plt Count 490 H Lymph % (Auto) [place] % (Auto) Lymph # [place] # Baso # Seg Neutrophils % Seg Neuts % (Manual) 77.0 H Lymphocytes % (Manual) 7.0 L Monocytes % (Manual) 10.0 H Nucleated RBC % Seg Neutrophils # Seg Neutrophils # Man 16.6 H Lymphocytes # (Manual) Monocytes # (Manual) 2.2 H POC ABG pH POC ABG pCO2 POC ABG pO2 Sodium Potassium 3.4 L Chloride 107.5 H Carbon Dioxide 21 L BUN Creatinine Glucose 165 H POC Glucose 147 H Calcium 8.0 L Phosphorus Magnesium 2.40 H AST ALT Alkaline Phosphatase C-Reactive Protein Total Protein Albumin Urine WBC (Auto) Miscellaneous Test 04/15/18 04/15/18 04/16/18 11:17 17:35 00:26 WBC RBC Hgb Hct MCV MCHC RDW Plt Count Lymph % (Auto) [place] % (Auto) Lymph # [place] # Baso # Seg Neutrophils % Seg Neuts % (Manual) Lymphocytes % (Manual) Monocytes % (Manual) Nucleated RBC % Seg Neutrophils # Seg Neutrophils # Man Lymphocytes # (Manual) Monocytes # (Manual) POC ABG pH POC ABG pCO2 POC ABG pO2 Sodium Potassium Chloride Carbon Dioxide BUN Creatinine Glucose POC Glucose 119 H 169 H 176 H Calcium Phosphorus Magnesium AST ALT Alkaline Phosphatase C-Reactive Protein Total Protein Albumin Urine WBC (Auto) Miscellaneous Test 04/16/18 04/16/18 04/16/18 06:12 06:19 06:21 WBC 20.7 H RBC 3.25 L Hgb 9.0 L Hct MCV MCHC 29 L RDW 16.7 H Plt Count 498 H Lymph % (Auto) [place] % (Auto) Lymph # [place] # Baso # Seg Neutrophils % Seg Neuts % (Manual) 88.0 H Lymphocytes % (Manual) 5.0 L Monocytes % (Manual) Nucleated RBC % Seg Neutrophils # Seg Neutrophils # Man 18.2 H Lymphocytes # (Manual) 1.0 L Monocytes # (Manual) POC ABG pH POC ABG pCO2 POC ABG pO2 Sodium Potassium Chloride Carbon Dioxide BUN Creatinine Glucose POC Glucose > 500 H 493 H Calcium Phosphorus Magnesium AST ALT Alkaline Phosphatase C-Reactive Protein Total Protein Albumin Urine WBC (Auto) Miscellaneous Test 04/16/18 04/16/18 04/16/18 06:24 08:52 14:05 WBC RBC Hgb Hct MCV MCHC RDW Plt Count Lymph % (Auto) [place] % (Auto) Lymph # [place] # Baso # Seg Neutrophils % Seg Neuts % (Manual) Lymphocytes % (Manual) Monocytes % (Manual) Nucleated RBC % Seg Neutrophils # Seg Neutrophils # Man Lymphocytes # (Manual) Monocytes # (Manual) POC ABG pH POC ABG pCO2 POC ABG pO2 Sodium Potassium 3.4 L Chloride Carbon Dioxide BUN Creatinine 0.5 L Glucose 166 H POC Glucose 173 H 196 H Calcium 8.2 L Phosphorus Magnesium AST ALT Alkaline Phosphatase C-Reactive Protein Total Protein Albumin Urine WBC (Auto) Miscellaneous Test 04/16/18 04/17/18 04/17/18 17:17 00:06 04:50 WBC 16.0 H RBC 3.12 L Hgb 8.7 L Hct 29.0 L MCV MCHC RDW 16.2 H Plt Count 455 H Lymph % (Auto) 9.4 L [place] % (Auto) 7.7 H Lymph # [place] # 1.2 H Baso # Seg Neutrophils % 81.9 H Seg Neuts % (Manual) Lymphocytes % (Manual) Monocytes % (Manual) Nucleated RBC % Seg Neutrophils # 13.1 H Seg Neutrophils # Man Lymphocytes # (Manual) Monocytes # (Manual) POC ABG pH POC ABG pCO2 POC ABG pO2 Sodium Potassium Chloride Carbon Dioxide BUN Creatinine Glucose POC Glucose 189 H 190 H Calcium Phosphorus Magnesium AST ALT Alkaline Phosphatase C-Reactive Protein Total Protein Albumin Urine WBC (Auto) Miscellaneous Test 04/17/18 04/17/18 04/17/18 04:50 05:38 07:17 WBC RBC Hgb Hct MCV MCHC RDW Plt Count Lymph % (Auto) [place] % (Auto) Lymph # [place] # Baso # Seg Neutrophils % Seg Neuts % (Manual) Lymphocytes % (Manual) Monocytes % (Manual) Nucleated RBC % Seg Neutrophils # Seg Neutrophils # Man Lymphocytes # (Manual) Monocytes # (Manual) POC ABG pH POC ABG pCO2 POC ABG pO2 Sodium 136 L Potassium 3.4 L Chloride 96.9 L Carbon Dioxide BUN Creatinine 0.6 L Glucose 167 H POC Glucose 190 H Calcium 7.6 L 8.0 L Phosphorus Magnesium AST ALT Alkaline Phosphatase C-Reactive Protein Total Protein Albumin Urine WBC (Auto) Miscellaneous Test 04/17/18 04/17/18 04/17/18 11:50 18:37 23:53 WBC RBC Hgb Hct MCV MCHC RDW Plt Count Lymph % (Auto) [place] % (Auto) Lymph # [place] # Baso # Seg Neutrophils % Seg Neuts % (Manual) Lymphocytes % (Manual) Monocytes % (Manual) Nucleated RBC % Seg Neutrophils # Seg Neutrophils # Man Lymphocytes # (Manual) Monocytes # (Manual) POC ABG pH POC ABG pCO2 POC ABG pO2 Sodium Potassium Chloride Carbon Dioxide BUN Creatinine Glucose POC Glucose 163 H 167 H 142 H Calcium Phosphorus Magnesium AST ALT Alkaline Phosphatase C-Reactive Protein Total Protein Albumin Urine WBC (Auto) Miscellaneous Test 04/18/18 04/18/18 04/18/18 05:59 10:05 12:25 WBC RBC Hgb Hct MCV MCHC RDW Plt Count Lymph % (Auto) [place] % (Auto) Lymph # [place] # Baso # Seg Neutrophils % Seg Neuts % (Manual) Lymphocytes % (Manual) Monocytes % (Manual) Nucleated RBC % Seg Neutrophils # Seg Neutrophils # Man Lymphocytes # (Manual) Monocytes # (Manual) POC ABG pH POC ABG pCO2 POC ABG pO2 Sodium Potassium Chloride Carbon Dioxide BUN Creatinine 0.5 L Glucose 127 H POC Glucose 144 H 171 H Calcium 8.2 L Phosphorus Magnesium AST ALT Alkaline Phosphatase C-Reactive Protein Total Protein Albumin Urine WBC (Auto) Miscellaneous Test 04/18/18 04/18/18 04/19/18 14:54 17:56 00:15 WBC 18.2 H RBC 2.95 L Hgb 8.9 L Hct 29.0 L MCV 98 H MCHC RDW 16.9 H Plt Count Lymph % (Auto) 9.2 L [place] % (Auto) Lymph # [place] # 1.2 H Baso # Seg Neutrophils % 82.7 H Seg Neuts % (Manual) Lymphocytes % (Manual) Monocytes % (Manual) Nucleated RBC % Seg Neutrophils # 15.1 H Seg Neutrophils # Man Lymphocytes # (Manual) Monocytes # (Manual) POC ABG pH POC ABG pCO2 POC ABG pO2 Sodium Potassium Chloride Carbon Dioxide BUN Creatinine Glucose POC Glucose 169 H 148 H Calcium Phosphorus Magnesium AST ALT Alkaline Phosphatase C-Reactive Protein Total Protein Albumin Urine WBC (Auto) Miscellaneous Test 04/19/18 04/19/18 04/19/18 05:21 08:00 08:00 WBC 18.7 H RBC Hgb Hct MCV MCHC RDW Plt Count 531 H Lymph % (Auto) [place] % (Auto) Lymph # [place] # Baso # Seg Neutrophils % Seg Neuts % (Manual) Lymphocytes % (Manual) Monocytes % (Manual) Nucleated RBC % Seg Neutrophils # Seg Neutrophils # Man Lymphocytes # (Manual) Monocytes # (Manual) POC ABG pH POC ABG pCO2 POC ABG pO2 Sodium Potassium Chloride Carbon Dioxide BUN 18 H Creatinine 0.5 L Glucose 141 H POC Glucose 146 H Calcium Phosphorus Magnesium AST ALT 76 H Alkaline Phosphatase 142 H C-Reactive Protein Total Protein Albumin 2.4 L Urine WBC (Auto) Miscellaneous Test 04/19/18 04/19/18 04/20/18 12:12 17:41 00:21 WBC RBC Hgb Hct MCV MCHC RDW Plt Count Lymph % (Auto) [place] % (Auto) Lymph # [place] # Baso # Seg Neutrophils % Seg Neuts % (Manual) Lymphocytes % (Manual) Monocytes % (Manual) Nucleated RBC % Seg Neutrophils # Seg Neutrophils # Man Lymphocytes # (Manual) Monocytes # (Manual) POC ABG pH POC ABG pCO2 POC ABG pO2 Sodium Potassium Chloride Carbon Dioxide BUN Creatinine Glucose POC Glucose 161 H 134 H 159 H Calcium Phosphorus Magnesium AST ALT Alkaline Phosphatase C-Reactive Protein Total Protein Albumin Urine WBC (Auto) Miscellaneous Test 04/20/18 04/20/18 04/20/18 04:00 04:00 07:05 WBC 16.5 H RBC 3.51 L Hgb 9.9 L Hct 30.1 L MCV MCHC RDW Plt Count 530 H Lymph % (Auto) 10.7 L [place] % (Auto) 9.2 H Lymph # [place] # 1.5 H Baso # Seg Neutrophils % 78.5 H Seg Neuts % (Manual) Lymphocytes % (Manual) Monocytes % (Manual) Nucleated RBC % Seg Neutrophils # 13.0 H Seg Neutrophils # Man Lymphocytes # (Manual) Monocytes # (Manual) POC ABG pH POC ABG pCO2 POC ABG pO2 Sodium Potassium Chloride Carbon Dioxide BUN 19 H Creatinine 0.6 L Glucose 185 H POC Glucose 166 H Calcium Phosphorus Magnesium AST ALT Alkaline Phosphatase C-Reactive Protein Total Protein Albumin Urine WBC (Auto) Miscellaneous Test 04/20/18 04/20/18 04/21/18 12:59 19:06 00:17 WBC RBC Hgb Hct MCV MCHC RDW Plt Count Lymph % (Auto) [place] % (Auto) Lymph # [place] # Baso # Seg Neutrophils % Seg Neuts % (Manual) Lymphocytes % (Manual) Monocytes % (Manual) Nucleated RBC % Seg Neutrophils # Seg Neutrophils # Man Lymphocytes # (Manual) Monocytes # (Manual) POC ABG pH POC ABG pCO2 POC ABG pO2 Sodium Potassium Chloride Carbon Dioxide BUN Creatinine Glucose POC Glucose 166 H 170 H 178 H Calcium Phosphorus Magnesium AST ALT Alkaline Phosphatase C-Reactive Protein Total Protein Albumin Urine WBC (Auto) Miscellaneous Test 04/21/18 04/21/18 04/21/18 06:15 06:15 06:39 WBC 15.1 H RBC 3.48 L Hgb 9.8 L Hct 30.2 L MCV MCHC RDW Plt Count 499 H Lymph % (Auto) [place] % (Auto) 8.7 H Lymph # [place] # 1.3 H Baso # 0.2 H Seg Neutrophils % 74.7 H Seg Neuts % (Manual) Lymphocytes % (Manual) Monocytes % (Manual) Nucleated RBC % Seg Neutrophils # 11.3 H Seg Neutrophils # Man Lymphocytes # (Manual) Monocytes # (Manual) POC ABG pH POC ABG pCO2 POC ABG pO2 Sodium Potassium Chloride 108.8 H Carbon Dioxide BUN 18 H Creatinine 0.6 L Glucose 157 H POC Glucose 153 H Calcium 8.0 L Phosphorus Magnesium AST ALT Alkaline Phosphatase C-Reactive Protein Total Protein Albumin Urine WBC (Auto) Miscellaneous Test 04/21/18 04/21/18 04/21/18 11:49 17:07 22:07 WBC RBC Hgb Hct MCV MCHC RDW Plt Count Lymph % (Auto) [place] % (Auto) Lymph # [place] # Baso # Seg Neutrophils % Seg Neuts % (Manual) Lymphocytes % (Manual) Monocytes % (Manual) Nucleated RBC % Seg Neutrophils # Seg Neutrophils # Man Lymphocytes # (Manual) Monocytes # (Manual) POC ABG pH POC ABG pCO2 POC ABG pO2 Sodium Potassium Chloride Carbon Dioxide BUN Creatinine Glucose POC Glucose 184 H 163 H 169 H Calcium Phosphorus Magnesium AST ALT Alkaline Phosphatase C-Reactive Protein Total Protein Albumin Urine WBC (Auto) Miscellaneous Test 04/22/18 04/22/18 04/22/18 07:00 07:00 08:52 WBC 14.0 H RBC 3.26 L Hgb 9.3 L Hct 28.6 L MCV MCHC RDW Plt Count 460 H Lymph % (Auto) 13.0 L [place] % (Auto) 10.1 H Lymph # [place] # 1.4 H Baso # Seg Neutrophils % 74.4 H Seg Neuts % (Manual) Lymphocytes % (Manual) Monocytes % (Manual) Nucleated RBC % Seg Neutrophils # 10.4 H Seg Neutrophils # Man Lymphocytes # (Manual) Monocytes # (Manual) POC ABG pH POC ABG pCO2 POC ABG pO2 Sodium Potassium Chloride Carbon Dioxide BUN 19 H Creatinine 0.6 L Glucose 159 H POC Glucose 156 H Calcium Phosphorus Magnesium AST ALT Alkaline Phosphatase C-Reactive Protein Total Protein Albumin Urine WBC (Auto) Miscellaneous Test 04/22/18 04/22/18 04/22/18 12:34 16:20 21:42 WBC RBC Hgb Hct MCV MCHC RDW Plt Count Lymph % (Auto) [place] % (Auto) Lymph # [place] # Baso # Seg Neutrophils % Seg Neuts % (Manual) Lymphocytes % (Manual) Monocytes % (Manual) Nucleated RBC % Seg Neutrophils # Seg Neutrophils # Man Lymphocytes # (Manual) Monocytes # (Manual) POC ABG pH POC ABG pCO2 POC ABG pO2 Sodium Potassium Chloride Carbon Dioxide BUN Creatinine Glucose POC Glucose 150 H 148 H 134 H Calcium Phosphorus Magnesium AST ALT Alkaline Phosphatase C-Reactive Protein Total Protein Albumin Urine WBC (Auto) Miscellaneous Test 07/04/23/18 04/23/18 05:45 05:45 08:45 WBC 12.5 H RBC 3.41 L Hgb 9.6 L Hct 29.6 L MCV MCHC RDW Plt Count 441 H Lymph % (Auto) [place] % (Auto) 11.3 H Lymph # [place] # 1.4 H Baso # Seg Neutrophils % 70.2 H Seg Neuts % (Manual) Lymphocytes % (Manual) Monocytes % (Manual) Nucleated RBC % Seg Neutrophils # 9.0 H Seg Neutrophils # Man Lymphocytes # (Manual) Monocytes # (Manual) POC ABG pH POC ABG pCO2 POC ABG pO2 Sodium Potassium Chloride Carbon Dioxide BUN 19 H Creatinine 0.6 L Glucose 119 H POC Glucose 154 H Calcium Phosphorus Magnesium 2.40 H AST ALT Alkaline Phosphatase C-Reactive Protein Total Protein Albumin Urine WBC (Auto) Miscellaneous Test 04/23/18 04/23/18 04/24/18 11:45 22:09 07:26 WBC RBC Hgb Hct MCV MCHC RDW Plt Count Lymph % (Auto) [place] % (Auto) Lymph # [place] # Baso # Seg Neutrophils % Seg Neuts % (Manual) Lymphocytes % (Manual) Monocytes % (Manual) Nucleated RBC % Seg Neutrophils # Seg Neutrophils # Man Lymphocytes # (Manual) Monocytes # (Manual) POC ABG pH POC ABG pCO2 POC ABG pO2 Sodium Potassium Chloride Carbon Dioxide BUN Creatinine Glucose POC Glucose 132 H 113 H 164 H Calcium Phosphorus Magnesium AST ALT Alkaline Phosphatase C-Reactive Protein Total Protein Albumin Urine WBC (Auto) Miscellaneous Test 04/24/18 04/24/18 04/24/18 08:30 08:30 11:27 WBC 14.4 H RBC 3.30 L Hgb 9.6 L Hct 28.4 L MCV MCHC RDW Plt Count Lymph % (Auto) 12.8 L [place] % (Auto) 9.1 H Lymph # [place] # 1.3 H Baso # 0.2 H Seg Neutrophils % 76.4 H Seg Neuts % (Manual) Lymphocytes % (Manual) Monocytes % (Manual) Nucleated RBC % Seg Neutrophils # 11.0 H Seg Neutrophils # Man Lymphocytes # (Manual) Monocytes # (Manual) POC ABG pH POC ABG pCO2 POC ABG pO2 Sodium Potassium Chloride Carbon Dioxide BUN 18 H Creatinine Glucose 155 H POC Glucose 133 H Calcium Phosphorus Magnesium AST ALT Alkaline Phosphatase C-Reactive Protein Total Protein Albumin Urine WBC (Auto) Miscellaneous Test 04/24/18 04/24/18 04/25/18 16:32 22:17 06:16 WBC RBC Hgb Hct MCV MCHC RDW Plt Count Lymph % (Auto) [place] % (Auto) Lymph # [place] # Baso # Seg Neutrophils % Seg Neuts % (Manual) Lymphocytes % (Manual) Monocytes % (Manual) Nucleated RBC % Seg Neutrophils # Seg Neutrophils # Man Lymphocytes # (Manual) Monocytes # (Manual) POC ABG pH POC ABG pCO2 POC ABG pO2 Sodium Potassium Chloride Carbon Dioxide BUN Creatinine Glucose POC Glucose 132 H 124 H 133 H Calcium Phosphorus Magnesium AST ALT Alkaline Phosphatase C-Reactive Protein Total Protein Albumin Urine WBC (Auto) Miscellaneous Test 04/25/18 04/25/18 04/25/18 07:39 11:10 11:31 WBC 11.3 H RBC 3.41 L Hgb 9.8 L Hct 29.5 L MCV MCHC RDW Plt Count Lymph % (Auto) 12.3 L [place] % (Auto) 9.0 H Lymph # [place] # 1.0 H Baso # Seg Neutrophils % 77.3 H Seg Neuts % (Manual) Lymphocytes % (Manual) Monocytes % (Manual) Nucleated RBC % Seg Neutrophils # 8.7 H Seg Neutrophils # Man Lymphocytes # (Manual) Monocytes # (Manual) POC ABG pH POC ABG pCO2 POC ABG pO2 Sodium Potassium Chloride Carbon Dioxide BUN Creatinine Glucose POC Glucose 141 H 145 H Calcium Phosphorus Magnesium AST ALT Alkaline Phosphatase C-Reactive Protein Total Protein Albumin Urine WBC (Auto) Miscellaneous Test 04/25/18 11:31 WBC RBC Hgb Hct MCV MCHC RDW Plt Count Lymph % (Auto) [place] % (Auto) Lymph # [place] # Baso # Seg Neutrophils % Seg Neuts % (Manual) Lymphocytes % (Manual) Monocytes % (Manual) Nucleated RBC % Seg Neutrophils # Seg Neutrophils # Man Lymphocytes # (Manual) Monocytes # (Manual) POC ABG pH POC ABG pCO2 POC ABG pO2 Sodium Potassium Chloride Carbon Dioxide BUN Creatinine Glucose 153 H POC Glucose Calcium Phosphorus Magnesium AST ALT Alkaline Phosphatase C-Reactive Protein Total Protein Albumin Urine WBC (Auto) Miscellaneous Test Allied health notes reviewed: nursing
--- NOTE | 2018-04-25 18:46 | Cat Scan Report ---
FINAL REPORT PROCEDURE: CT ABDOMEN PELVIS W CON TECHNIQUE: Computerized axial tomography of the abdomen and pelvis was performed after the IV injection of iodinated nonionic contrast. HISTORY: eval leak, collections COMPARISON: No prior studies are available for comparison. FINDINGS: Lower Lung [place]: Small to moderate size left pleural effusion visualized. This may be partially loculated. There is some adjacent consolidation in the left lower lobe suggesting atelectasis or infiltrate. The effusion was visualized on the prior study. This may have decreased slightly in size. There appear to be 4 surgical drains present in the upper abdomen 2 entering from the right side 200 from the left side. 1 of these projects into a fluid collection anterior to the left lobe of the liver. The fluid collection extends approximately 10 centimeter transverse and 13 millimeters in depth. This fluid collection a bubble of gas seen this area has not changed significantly compared to the prior study. This is visualized on image 47 series 2. One of the other fluid collections projects into the left upper quadrant. There is minimal fluid or inflammatory change seen in the location of this tube. This is visualized on image 37 series 2. Additional tube enters the left upper quadrant laterally extending superiorly medially. No significant fluid collections seen in this location. . Upper Abdomen: There is a small amount of hazy increased density dependently in the gallbladder. There may be sludge present.The liver is unremarkable. The adrenal glands and pancreas show no focal abnormalities. The pancreatic duct remains mildly prominent. This is nonspecific. The spleen is unremarkable Kidneys, Ureters and Urinary bladder: No abnormalities are seen. Several calcifications are seen in the lower pelvis which appear to represent phleboliths. Retroperitoneum: Atherosclerotic changes are seen in the abdominal aorta. No aneurysm is visualized. Nonspecific subcentimeter lymph nodes are seen in the retroperitoneum. No pathologically enlarged lymph nodes are identified. Bowel: Suture line appears to be present involving the stomach. Bowel loops otherwise unremarkable. No evidence of bowel obstruction. There is no free intraperitoneal gas. Fluid collection seen anterior to the rectum on the prior study has decreased in size now measuring 2.9 x 2.2 centimeter previously 6.2 x 4.2 centimeters per Reproductive organs: Uterus is surgically absent. Other: Prior fusion procedure of the lumbar sacral spine extending from L4 to the S1 level visualized. Spacing devices are present. There is grade 1 spondylolisthesis L4 in relation L5. No acute bony abnormalities are identified. IMPRESSION: Four surgical drains in place as described. Fluid collection anterior to the left lobe of the liver has not changed significantly. Fluid collection adjacent to the anterior aspect of the rectum has decreased in size. Loculated left pleural effusion left lung base may have decreased slightly. There is adjacent consolidation seen suggesting atelectasis versus infiltrate. Prior fusion procedure lumbar sacral spine.
[2018-04-25] MEDS ORDERED: TPN ADULT 1,800 ML IV SCH (20:00)
[2018-04-25] MEDS: TYLENOL PR PRN (21:22)
[2018-04-25] MEDS: LOVENOX SUB-Q SCH (23:05)
[2018-04-25] MEDS ORDERED: CATHFLO IV ONE (23:45)
[2018-04-26] MEDS: NORMODYNE IV SCH ×5 (02:00→18:05)
[2018-04-26] MEDS: DILAUDID IV PRN ×5 (02:41→20:15)
[2018-04-26 06:43] LABS: Basophils # (Auto) 0.2 K/mm3 (0.0-0.1); Basophils % (Auto) 1.2 % (0.0-1.8); Eosinophils % (Auto) 0.2 % (0.0-4.3); Hematocrit 30.7 % (30.3-42.9); Hemoglobin 10.2 gm/dl (10.1-14.3); Mean Corpuscular HGB Conc 33 % (30-34); Mean Corpuscular Hemoglobin 28 pg (28-32); Mean Corpuscular Volume 85 fl (79-97); Monocytes # (Auto) 1.4 K/mm3 (0.0-0.8); Monocytes % (Auto) 9.6 % (0.0-7.3); Platelet Count 347 K/mm3 (140-440); Red Cell Distribution Width 14.6 % (13.2-15.2)
[2018-04-26 07:22] LABS: BUN/Creatinine Ratio 24; Blood Urea Nitrogen 17 mg/dL (7-17); Calcium 8.7 mg/dL (8.4-10.2); Hemolysis Index 0
[2018-04-26] MEDS ORDERED: TYLENOL ONE (07:53)
[2018-04-26] MEDS: TYLENOL PR PRN ×3 (08:09→20:14)
[2018-04-26] MEDS ORDERED: VERSED ONE (08:10)
[2018-04-26] MEDS ORDERED: XYLOCAINE 2% INFILTRATI ONE (08:10)
[2018-04-26] MEDS ORDERED: NACL 0.9% 500 ML IR ONE (08:10)
[2018-04-26] MEDS ORDERED: SUBLIMAZE ONE (08:10)
[2018-04-26] MEDS ORDERED: NACL 0.9% 500 ML 500 ML ONE (08:11)
[2018-04-26] MEDS ORDERED: ANCEF/STERILE WATER 2 GM/20 ML 2 GM/20 ML SYRINGE IV ONE (08:11)
[2018-04-26] MEDS: PULMICORT IH SCH (09:05)
[2018-04-26] MEDS: BROVANA NEBU IH SCH (09:05)
--- NOTE | 2018-04-26 09:15 | Operative Report ---
Operative Report Operative Report: Exam: Drainage catheter evaluation through indwelling drain, drainage catheter exchange Clinical indication: Patient with decreased output from drain Date: 04/26/2018 Procedure: Following an explanation of the risks, benefits and alternatives; written informed consent was obtained. The patient was brought to the injury graphic suite and placed in supine position on the examination table. The drainage catheter in her upper abdomen was prepped and draped in the usual sterile fashion. 1% lidocaine was used for anesthesia at the catheter exit site. Contrast was injected through the indwelling drainage catheter under fluoroscopy. This demonstrated some retraction of the drainage catheter as well as undersizing of the drainage catheter. Residual fluid collection is present anterior to the left lobe of the liver. The catheter was cut to release the pigtail and a 0.035 guidewire was advanced through the catheter and coiled within the fluid collection. The remainder of the catheter was removed intact. A new 12 [place] pigtail drainage catheter was then advanced over the guidewire under fluoroscopy and positioned more distally within the fluid collection. The guidewire and trocar were removed and suctioned applied to the catheter. There was aspiration of fibrinous material. The catheter was securely fasten the skin surface using 0 silk suture and a stay fixed device. The catheter was then placed to KRISTI bulb drainage. The patient tolerated the procedure well. There were no immediate post procedure complications. Conscious sedation was performed under the guidance of radiologic nursing. Continuous cardiopulmonary monitoring was utilized. Impression: 1) Fluoroscopic guided drainage catheter evaluation through indwelling drain demonstrating residual fluid collection anterior to the left lobe of the liver. 2) Fluoroscopic guided drainage catheter exchange with upsized to a 12 [place] pigtail drainage catheter
--- NOTE | 2018-04-26 09:40 | Progress Note ---
Assessment and Plan 58 y.o. f s/p lap sleeve gastrectomy with hiatal hernia repair and partial fundoplication 03/30, presents to ER with abdominal pain, now s/p dx lap, abdominal washout, repair of gastric perforation and placement of drains , s/p abdominal pigtail placement x 2 Neuro: dilualdid, morphine prn. toradol for pain control. Ativan prn for agitation for hx of anxiety baseline Cardio: tachycardia- improved with pain control and improving/resolving sepsis hx of HTN: enalaril IV, metop , clonidine patch -hospitalist consult Pulm: pulm toilet per pulm Left pleural effusion: US chest per pulm- possible thoracentesis Appreciate pulmonary consult -IS CXr 04/09: left effusion, cardiomeg. no pulm congestion CT chest: no PE GI: npo, . monitor drain(s) output -CT abd/pelvis: fluid collection anterior to liver, leak persistent. s/p IR drain x 2. -04/25 CT abd/pelvis: persistent fluid collection, improved from prior. LUQ drain not totally within abscess cavity -04/26: s/p IR upsize of pigtail and adjustment of location Nutrition: PIcc line for tpn. -monitor lytes ID: gastric perf. vanco-complted flagyl cefipime- completed most recent surgical drain: staph aureus 04/26: restart of antibx per ID -umbilical incision: change packing daily peritoneal cultures: serratia Pneumonia: vanco . Dosing per pharm. -completed -ID consult appreciated /Lytes: f/u am labs. monitor urine out. DVT proph: lovenox scds GI proph: protonix Out of bed to chair/ PT Dispo: Pt agrees to LTAC once medically stable. Currently she is having fevers and increasing leukocytosis Subjective Narrative: Pt seen and examined at bedside. Pt feeing weak. She feels dizzy. She denies nausea and vomiting. tmx 102 Justin 1: 30 JUSTIN 2: 0 Justin 3: 0 justin 4: 25cc corrales fluid Objective Vital Signs - 12hr 04/25/18 04/25/18 04/26/18 23:08 23:19 02:00 Temperature 99.1 F Pulse Rate 113 H 113 H 106 H Respiratory 18 Rate Blood Pressure 136/73 136/73 138/73 O2 Sat by Pulse 100 Oximetry 04/26/18 04/26/18 04/26/18 02:35 05:53 05:59 Temperature 100.1 F H Pulse Rate 56 L 120 H 124 H Respiratory 20 20 18 Rate Blood Pressure 138/73 140/82 135/81 O2 Sat by Pulse 91 95 99 Oximetry 04/26/18 06:00 Temperature Pulse Rate 124 H Respiratory Rate Blood Pressure 135/81 O2 Sat by Pulse Oximetry - General physical appearance well developed, well nourished - Respiratory normal expansion, normal respiratory effort, clear to auscultation - Abdomen soft, other (tender at epigastric. justin x [address] no rebound no guarding. umbilcial dressing cdi) - Integumentary no rash, no growths - Neurologic normal coordination, normal sensation - Musculoskeletal normal posture - Psychiatric oriented to time, oriented to person, oriented to place - Labs 04/26/18 06:10 04/26/18 06:10 Diabetes panel 04/25/18 04/26/18 Range/Units 11:31 06:10 Sodium 141 138 (137-145) mmol/L Potassium 4.4 4.2 (3.6-5.0) mmol/L Chloride 100.9 99.5 (98-107) mmol/L Carbon Dioxide 26 26 (22-30) mmol/L BUN 17 17 (7-17) mg/dL Creatinine 0.7 0.7 (0.7-1.2) mg/dL Glucose 153 H 138 H (65-100) mg/dL Calcium 8.4 8.7 (8.4-10.2) mg/dL Calcium panel 04/25/18 04/26/18 Range/Units 11:31 06:10 Calcium 8.4 8.7 (8.4-10.2) mg/dL Phosphorus 3.50 3.00 (2.5-4.5) mg/dL Pituitary panel 04/25/18 04/26/18 Range/Units 11:31 06:10 Sodium 141 138 (137-145) mmol/L Potassium 4.4 4.2 (3.6-5.0) mmol/L Chloride 100.9 99.5 (98-107) mmol/L Carbon Dioxide 26 26 (22-30) mmol/L BUN 17 17 (7-17) mg/dL Creatinine 0.7 0.7 (0.7-1.2) mg/dL Glucose 153 H 138 H (65-100) mg/dL Calcium 8.4 8.7 (8.4-10.2) mg/dL Adrenal panel 04/25/18 04/26/18 Range/Units 11:31 06:10 Sodium 141 138 (137-145) mmol/L Potassium 4.4 4.2 (3.6-5.0) mmol/L Chloride 100.9 99.5 (98-107) mmol/L Carbon Dioxide 26 26 (22-30) mmol/L BUN 17 17 (7-17) mg/dL Creatinine 0.7 0.7 (0.7-1.2) mg/dL Glucose 153 H 138 H (65-100) mg/dL Calcium 8.4 8.7 (8.4-10.2) mg/dL
[2018-04-26] MEDS: PROTONIX IV SCH ×2 (11:09→21:05)
[2018-04-26] MEDS: SODIUM CHLORIDE FLUSH SYRINGE 10 ML IV SCH ×2 (11:18→21:06)
[2018-04-26] MEDS: ZOSYN/NS 4.5GM/100ML 4.5 GM/100 ML VIAL IV SCH ×2 (11:21→22:58)
--- NOTE | 2018-04-26 12:29 | Progress Note ---
Assessment and Plan Assessment: 1) Sepsis: new fever. Etiology most likely perf / intra-abdominal collection? vs complicated pneumonia 2) Gastric perf and intra-abdominal fluid collection -S/P OR for ex lap, abdominal washout, repair of gastric perforation and placement of drains on 04/08/18 -04/07 peritoneal fluid + Serratia x 2 -Repeat CTA 04/09 showed no PE however increase in left pleural effusion with dense consolidation consistent with atelectasis and a large fluid collection 14 x 4.7 cm in the left lobe of the fever with air bubbles. -CRP=52 --> 45 -procal=0.3 -Repeat CT showed large left pleural effusion, smaller left hep lobe collection and large splenic collection 4.2x6.1 cm -S/P further drain placement 04/16 cx +MSSA and Leuconostoc. S/p vanco IV x 10 days until 04/19 -s/p cefepime and flagyl D10/10 (s/p zosyn 7 days) - total 17 days of abx -Repeat CT showed still left liver lobe fluid collection 10x1.3cm with gas, loculated left pleural effusion with consolidation and 3) S/P lap sleeve gastrectomy with hiatal hernia repair and partial fundoplication 03/30/18 4) Presumed pnemonia vs. atelectasis Plan: -agree with futher IR drainage -agree wityh pulmonary consult ? loculated pleural effusion -add zosyn and zyvox today -monitor fever and leukocytosis Discussed with Dr Wynn Thank you for your consultation, will follow up with you. Katerin Cross MD Infectious Diseases Specialist [facility] ([facility]) M [phone] O [phone] Subjective Date of service: 04/26/18 Principal diagnosis: Sepsis Syndrome; Acute Hypoxemic Resp Failure; Acute Encephalopathy Interval history: Spiked fever during weekend, Tmax 102.6 c/o abdominal pain Microbiology: Blood cultures: 04/07 neg 04/10 neg 04/24 ngtd Peritoneal cultures: 04/07 Serratia x 2 04/10 ngtd 04/16 MSSA and Strep sp Current Antimicrobials: cefepime and flagyl 04/14 Previous Antimicrobials: Fluconazole Zosyn 04/08-04/14 vanco 04/10-04/19 Objective - Exam Narrative Exam: General appearance: Alert in mild shortness of breath NC O2 Eyes: anicteric sclerae, moist conjunctivae; no lid-lag; PERRLA HENT: Atraumatic; oropharynx NGT Neck: Trachea midline; supple, no thyromegaly or lymphadenopathy Lungs: CTA CV: RRR Abdomen: Obese, Soft, midline surgical wound covered with dressings drain in place KRISTI R minimal purulent output KRISTI L minimal serosang output, new drain Extremities: No peripheral edema or extremity lymphadenopathy Skin: Normal temperature, turgor and texture; no rash, ulcers or subcutaneous nodules Psych: Appropriate affect, alert and oriented to person, place and time. Neuro: alert and oriented x 3. Moving all extermities Lines: right PICC, staton - Constitutional Vitals: Vital Signs Temp Pulse Resp BP Pulse Ox 98.5 F 124 H 18 153/89 95 04/26/18 09:35 04/26/18 11:05 04/26/18 09:35 04/26/18 11:05 04/26/18 09:35 Temperature -Last 24 Hours Temperature 98.5 F Temperature 100.1 F Temperature 99.1 F Temperature 102.6 F Temperature 98 F - Labs CBC & Chem 7: 04/26/18 06:10 04/26/18 06:10 Labs: Abnormal lab results 04/25/18 04/26/18 04/26/18 Range/Units 16:14 00:45 06:10 WBC 14.5 H (4.5-11.0) K/mm3 RBC 3.60 L (3.65-5.03) M/mm3 [place] % (Auto) 9.6 H (0.0-7.3) % [place] # 1.4 H (0.0-0.8) K/mm3 Baso # 0.2 H (0.0-0.1) K/mm3 Seg Neutrophils % 75.0 H (40.0-70.0) % Seg Neutrophils # 10.9 H (1.8-7.7) K/mm3 Glucose (65-100) mg/dL POC Glucose 163 H 141 H (70-105) 04/26/18 04/26/18 04/26/18 Range/Units 06:10 06:37 11:34 WBC (4.5-11.0) K/mm3 RBC (3.65-5.03) M/mm3 [place] % (Auto) (0.0-7.3) % [place] # (0.0-0.8) K/mm3 Baso # (0.0-0.1) K/mm3 Seg Neutrophils % (40.0-70.0) % Seg Neutrophils # (1.8-7.7) K/mm3 Glucose 138 H (65-100) mg/dL POC Glucose 131 H 129 H (70-105)
--- NOTE | 2018-04-26 14:30 | Progress Note ---
Assessment and Plan Sepsis syndrome with altered mental status in the setting of the systemic inflammatory response syndrome. Mild metabolic acidosis Perforated abdominal viscus status post exploratory laparotomy and repair. Obesity. Atypical Chest Pain Obstructive sleep apnea according to the history. Acute encephalopathy, presumably toxic metabolic. History of hypertension. Arthritis. Gastroesophageal reflux disease. Morbid obesity. Acute hypoxemic respiratory failure (CT abd reveals loculated looking left pleural effusion) - in light of persistent fevers and hypoxemia will do a thoracentesis and cultures (hopefully also therapeutic) - continue supplemental oxygen to keep sats > 90% - prn analgesia while watching for respiratory depression - to repeat CT abd/pelvis to evaluate for persistent leak +/- IR intervention - anti-infectives per ID recs (following off AB's) - continue PICC line for TPN - continue PT/OT - continue GI & VTE prophylaxis - continue bronchodilators for COPD (brovana and changed duonebs to prn) - continue BIPAP scheduled qhs for [place] with prn daytime use - wound care per WCT / RN and surgeon - continue other care per attending / other consultants - SNF tentatively once cleared by surgery team ...... re-evaluate in am & prn ...35' Subjective Date of service: 04/26/18 Principal diagnosis: Sepsis Syndrome; Acute Hypoxemic Resp Failure; Acute Encephalopathy Interval history: Patient is seen today for: Sepsis Syndrome; Acute Hypoxemic Resp Failure; Acute Encephalopathy Seen and examined at bedside; 24hour events reviewed; nursing and respiratory care staff consulted; no adverse overnight events reported to me; continues to run fevers; seen by ID today; No N/V/F/C; will send for thoracentesis today also Objective Vital Signs - 12hr 04/26/18 04/26/18 04/26/18 02:35 05:53 05:59 Temperature 100.1 F H Pulse Rate 56 L 120 H 124 H Respiratory 20 20 18 Rate Blood Pressure 138/73 140/82 135/81 Blood Pressure [Left] O2 Sat by Pulse 91 95 99 Oximetry 04/26/18 04/26/18 04/26/18 06:00 09:35 11:05 Temperature 98.5 F Pulse Rate 124 H 124 H 124 H Respiratory 18 Rate Blood Pressure 135/81 153/89 Blood Pressure 153/88 [Left] O2 Sat by Pulse 95 Oximetry 04/26/18 11:47 Temperature 101.6 F H Pulse Rate 108 H Respiratory 18 Rate Blood Pressure 133/70 Blood Pressure [Left] O2 Sat by Pulse 98 Oximetry Constitutional: no acute distress, alert Eyes: non-icteric ENT: oropharynx moist, other (no thyromegaly) Neck: supple, no lymphadenopathy, no JVD, other (large neck circumference) Effort: mildly labored Ascultation: Bilateral: diminished breath sounds, rhonchi (scant in bases) Percussion: Bilateral: not dull Cardiovascular: regular rate and rhythm, other (No R/M) Gastrointestinal: hypoactive bowel sounds, soft, tender (mild), non-distended, other (no palpable HSM) Integumentary: normal Extremities: no cyanosis, no edema, pulses normal, no ischemia or petechiae Neurologic: normal mental status, non-focal exam (grossly), pupils equal and round, CN II-XII normal, motor strength normal and Psychiatric: mood appropriate, affect normal CBC and BMP: 04/30/18 11:20 04/30/18 08:26 ABG, PT/INR, D-dimer: ABG POC ABG pH 7.519 (7.35-7.45) H 04/10/18 12:59 POC ABG pCO2 29.3 (35-45) L 04/10/18 12:59 POC ABG pO2 63 (80-105) L 04/10/18 12:59 POC ABG HCO3 23.9 04/10/18 12:59 POC ABG Total CO2 25 04/10/18 12:59 POC ABG O2 Sat 94 04/10/18 12:59 PT/INR, D-dimer PT 13.5 Sec. (12.2-14.9) 04/07/18 09:41 INR 0.98 (0.87-1.13) 04/07/18 09:41 Abnormal lab findings: Abnormal Labs 04/07/18 04/07/18 04/07/18 00:05 00:05 09:41 WBC 18.4 H 21.3 H RBC Hgb Hct MCV MCHC RDW Plt Count Lymph % (Auto) 4.5 L [place] % (Auto) Lymph # 0.8 L [place] # 1.2 H Baso # Seg Neutrophils % 88.9 H Seg Neuts % (Manual) 85.0 H Lymphocytes % (Manual) 4.0 L Monocytes % (Manual) Nucleated RBC % Seg Neutrophils # 16.4 H Seg Neutrophils # Man 18.1 H Lymphocytes # (Manual) 0.9 L Monocytes # (Manual) 1.1 H POC ABG pH POC ABG pCO2 POC ABG pO2 Sodium Potassium Chloride Carbon Dioxide BUN Creatinine Glucose 123 H POC Glucose Calcium 8.0 L Phosphorus Magnesium 1.60 L AST 59 H ALT Alkaline Phosphatase C-Reactive Protein Total Protein Albumin 2.9 L Urine WBC (Auto) Miscellaneous Test 04/07/18 04/08/18 04/08/18 09:41 00:20 10:25 WBC 19.2 H RBC Hgb Hct MCV MCHC RDW Plt Count Lymph % (Auto) 5.4 L [place] % (Auto) Lymph # 1.0 L [place] # 1.1 H Baso # Seg Neutrophils % 88.9 H Seg Neuts % (Manual) Lymphocytes % (Manual) Monocytes % (Manual) Nucleated RBC % Seg Neutrophils # 17.1 H Seg Neutrophils # Man Lymphocytes # (Manual) Monocytes # (Manual) POC ABG pH POC ABG pCO2 POC ABG pO2 Sodium Potassium 3.3 L Chloride 95.1 L Carbon Dioxide 21 L BUN Creatinine Glucose 113 H POC Glucose Calcium Phosphorus Magnesium AST ALT Alkaline Phosphatase C-Reactive Protein Total Protein Albumin 3.6 L Urine WBC (Auto) 45.0 H Miscellaneous Test 04/08/18 04/08/18 04/08/18 10:25 13:33 23:53 WBC 12.8 H RBC Hgb Hct MCV MCHC RDW Plt Count Lymph % (Auto) [place] % (Auto) Lymph # [place] # Baso # Seg Neutrophils % Seg Neuts % (Manual) 97.0 H Lymphocytes % (Manual) 2.0 L Monocytes % (Manual) Nucleated RBC % Seg Neutrophils # Seg Neutrophils # Man 12.4 H Lymphocytes # (Manual) 0.3 L Monocytes # (Manual) POC ABG pH POC ABG pCO2 POC ABG pO2 Sodium Potassium 3.5 L Chloride Carbon Dioxide BUN Creatinine Glucose 123 H POC Glucose Calcium 7.9 L Phosphorus Magnesium AST 53 H ALT Alkaline Phosphatase C-Reactive Protein 52.00 H Total Protein 6.1 L Albumin 2.7 L Urine WBC (Auto) Miscellaneous Test 04/09/18 04/09/18 04/09/18 04:20 04:20 13:38 WBC 16.2 H RBC Hgb Hct MCV MCHC RDW Plt Count Lymph % (Auto) [place] % (Auto) Lymph # [place] # Baso # Seg Neutrophils % Seg Neuts % (Manual) 89.0 H Lymphocytes % (Manual) 4.0 L Monocytes % (Manual) Nucleated RBC % Seg Neutrophils # Seg Neutrophils # Man 14.4 H Lymphocytes # (Manual) 0.6 L Monocytes # (Manual) POC ABG pH 7.494 H POC ABG pCO2 31.6 L POC ABG pO2 68 L Sodium Potassium 3.5 L Chloride Carbon Dioxide BUN Creatinine 0.6 L Glucose 117 H POC Glucose Calcium 7.9 L Phosphorus 1.50 L D Magnesium AST ALT Alkaline Phosphatase C-Reactive Protein Total Protein 5.6 L Albumin 2.9 L Urine WBC (Auto) Miscellaneous Test 04/09/18 04/09/18 04/09/18 18:25 21:45 21:45 WBC 21.3 H RBC 3.62 L Hgb Hct MCV MCHC 35 H RDW Plt Count Lymph % (Auto) [place] % (Auto) Lymph # [place] # Baso # Seg Neutrophils % Seg Neuts % (Manual) 90.0 H Lymphocytes % (Manual) 6.0 L Monocytes % (Manual) Nucleated RBC % 1.0 H Seg Neutrophils # Seg Neutrophils # Man 19.2 H Lymphocytes # (Manual) Monocytes # (Manual) 0.9 H POC ABG pH POC ABG pCO2 POC ABG pO2 Sodium Potassium Chloride Carbon Dioxide BUN 5 L Creatinine 0.5 L Glucose 134 H POC Glucose 155 H Calcium 7.9 L Phosphorus 2.20 L D Magnesium AST ALT Alkaline Phosphatase C-Reactive Protein Total Protein Albumin Urine WBC (Auto) Miscellaneous Test 04/09/18 04/10/18 04/10/18 23:38 04:07 04:07 WBC 20.2 H RBC 3.38 L Hgb 9.4 L Hct 28.9 L MCV MCHC RDW Plt Count Lymph % (Auto) [place] % (Auto) Lymph # [place] # Baso # Seg Neutrophils % Seg Neuts % (Manual) Lymphocytes % (Manual) 6.0 L Monocytes % (Manual) Nucleated RBC % Seg Neutrophils # Seg Neutrophils # Man 10.7 H Lymphocytes # (Manual) Monocytes # (Manual) POC ABG pH POC ABG pCO2 POC ABG pO2 Sodium Potassium Chloride Carbon Dioxide BUN 6 L Creatinine 0.6 L Glucose 176 H POC Glucose 160 H Calcium 7.7 L Phosphorus Magnesium AST ALT Alkaline Phosphatase C-Reactive Protein Total Protein Albumin Urine WBC (Auto) Miscellaneous Test 04/10/18 04/10/18 04/10/18 05:29 11:55 12:59 WBC RBC Hgb Hct MCV MCHC RDW Plt Count Lymph % (Auto) [place] % (Auto) Lymph # [place] # Baso # Seg Neutrophils % Seg Neuts % (Manual) Lymphocytes % (Manual) Monocytes % (Manual) Nucleated RBC % Seg Neutrophils # Seg Neutrophils # Man Lymphocytes # (Manual) Monocytes # (Manual) POC ABG pH 7.519 H POC ABG pCO2 29.3 L POC ABG pO2 63 L Sodium Potassium Chloride Carbon Dioxide BUN Creatinine Glucose POC Glucose 171 H 194 H Calcium Phosphorus Magnesium AST ALT Alkaline Phosphatase C-Reactive Protein Total Protein Albumin Urine WBC (Auto) Miscellaneous Test 04/10/18 04/10/18 04/10/18 18:11 18:28 18:28 WBC 22.7 H RBC 3.62 L Hgb Hct MCV MCHC RDW Plt Count Lymph % (Auto) [place] % (Auto) Lymph # [place] # Baso # Seg Neutrophils % Seg Neuts % (Manual) 84.0 H Lymphocytes % (Manual) 7.0 L Monocytes % (Manual) 8.0 H Nucleated RBC % Seg Neutrophils # Seg Neutrophils # Man 19.1 H Lymphocytes # (Manual) Monocytes # (Manual) 1.8 H POC ABG pH POC ABG pCO2 POC ABG pO2 Sodium Potassium Chloride Carbon Dioxide BUN Creatinine Glucose POC Glucose 118 H Calcium Phosphorus Magnesium AST ALT Alkaline Phosphatase C-Reactive Protein 45.20 H Total Protein Albumin Urine WBC (Auto) Miscellaneous Test 04/10/18 04/10/18 04/11/18 18:28 23:45 03:35 WBC 20.9 H RBC 3.54 L Hgb 10.0 L Hct MCV MCHC RDW Plt Count Lymph % (Auto) [place] % (Auto) Lymph # [place] # Baso # Seg Neutrophils % Seg Neuts % (Manual) 80.0 H Lymphocytes % (Manual) 6.0 L Monocytes % (Manual) Nucleated RBC % Seg Neutrophils # Seg Neutrophils # Man 16.7 H Lymphocytes # (Manual) Monocytes # (Manual) POC ABG pH POC ABG pCO2 POC ABG pO2 Sodium Potassium 3.5 L Chloride Carbon Dioxide BUN 5 L Creatinine 0.5 L Glucose 108 H POC Glucose 149 H Calcium 8.3 L Phosphorus Magnesium AST ALT Alkaline Phosphatase C-Reactive Protein Total Protein Albumin Urine WBC (Auto) Miscellaneous Test 04/11/18 04/11/18 04/11/18 03:35 06:17 11:29 WBC RBC Hgb Hct MCV MCHC RDW Plt Count Lymph % (Auto) [place] % (Auto) Lymph # [place] # Baso # Seg Neutrophils % Seg Neuts % (Manual) Lymphocytes % (Manual) Monocytes % (Manual) Nucleated RBC % Seg Neutrophils # Seg Neutrophils # Man Lymphocytes # (Manual) Monocytes # (Manual) POC ABG pH POC ABG pCO2 POC ABG pO2 Sodium Potassium Chloride Carbon Dioxide BUN Creatinine 0.5 L Glucose 143 H POC Glucose 155 H 158 H Calcium 8.2 L Phosphorus Magnesium AST ALT Alkaline Phosphatase C-Reactive Protein Total Protein 6.0 L Albumin 2.2 L Urine WBC (Auto) Miscellaneous Test 04/11/18 04/11/18 04/12/18 18:13 23:51 05:29 WBC RBC Hgb Hct MCV MCHC RDW Plt Count Lymph % (Auto) [place] % (Auto) Lymph # [place] # Baso # Seg Neutrophils % Seg Neuts % (Manual) Lymphocytes % (Manual) Monocytes % (Manual) Nucleated RBC % Seg Neutrophils # Seg Neutrophils # Man Lymphocytes # (Manual) Monocytes # (Manual) POC ABG pH POC ABG pCO2 POC ABG pO2 Sodium Potassium Chloride Carbon Dioxide BUN Creatinine Glucose POC Glucose 135 H 143 H 150 H Calcium Phosphorus Magnesium AST ALT Alkaline Phosphatase C-Reactive Protein Total Protein Albumin Urine WBC (Auto) Miscellaneous Test 04/12/18 04/12/18 04/13/18 05:40 05:40 00:32 WBC 18.0 H RBC 3.34 L Hgb 9.5 L Hct 28.9 L MCV MCHC RDW Plt Count Lymph % (Auto) 7.4 L [place] % (Auto) 10.8 H Lymph # [place] # 1.9 H Baso # Seg Neutrophils % 81.1 H Seg Neuts % (Manual) Lymphocytes % (Manual) Monocytes % (Manual) Nucleated RBC % Seg Neutrophils # 14.6 H Seg Neutrophils # Man Lymphocytes # (Manual) Monocytes # (Manual) POC ABG pH POC ABG pCO2 POC ABG pO2 Sodium Potassium Chloride 107.7 H Carbon Dioxide 21 L BUN Creatinine 0.6 L Glucose 140 H POC Glucose 144 H Calcium Phosphorus Magnesium AST ALT Alkaline Phosphatase C-Reactive Protein Total Protein Albumin Urine WBC (Auto) Miscellaneous Test 04/13/18 04/13/18 04/13/18 04:20 04:20 04:20 WBC 18.1 H RBC 3.52 L Hgb 9.8 L Hct 30.1 L MCV MCHC RDW Plt Count Lymph % (Auto) 11.1 L [place] % (Auto) 13.6 H Lymph # [place] # 2.5 H Baso # Seg Neutrophils % 74.4 H Seg Neuts % (Manual) Lymphocytes % (Manual) Monocytes % (Manual) Nucleated RBC % Seg Neutrophils # 13.4 H Seg Neutrophils # Man Lymphocytes # (Manual) Monocytes # (Manual) POC ABG pH POC ABG pCO2 POC ABG pO2 Sodium Potassium Chloride Carbon Dioxide BUN Creatinine 0.5 L Glucose 142 H POC Glucose Calcium Phosphorus Magnesium AST ALT Alkaline Phosphatase C-Reactive Protein 29.60 H Total Protein Albumin Urine WBC (Auto) Miscellaneous Test 04/13/18 04/13/18 04/13/18 05:35 13:37 23:50 WBC RBC Hgb Hct MCV MCHC RDW Plt Count Lymph % (Auto) [place] % (Auto) Lymph # [place] # Baso # Seg Neutrophils % Seg Neuts % (Manual) Lymphocytes % (Manual) Monocytes % (Manual) Nucleated RBC % Seg Neutrophils # Seg Neutrophils # Man Lymphocytes # (Manual) Monocytes # (Manual) POC ABG pH POC ABG pCO2 POC ABG pO2 Sodium Potassium Chloride Carbon Dioxide BUN Creatinine Glucose POC Glucose 142 H 160 H Calcium Phosphorus Magnesium AST ALT Alkaline Phosphatase C-Reactive Protein Total Protein Albumin Urine WBC (Auto) Miscellaneous Test Flexitest 1 H 04/14/18 04/14/18 04/14/18 04:00 04:00 05:29 WBC 22.1 H RBC 3.59 L Hgb 9.9 L Hct MCV MCHC RDW Plt Count Lymph % (Auto) [place] % (Auto) Lymph # [place] # Baso # Seg Neutrophils % Seg Neuts % (Manual) 73.0 H Lymphocytes % (Manual) 9.0 L Monocytes % (Manual) 11.0 H Nucleated RBC % Seg Neutrophils # Seg Neutrophils # Man 16.1 H Lymphocytes # (Manual) Monocytes # (Manual) 2.4 H POC ABG pH POC ABG pCO2 POC ABG pO2 Sodium Potassium Chloride Carbon Dioxide BUN Creatinine Glucose 155 H POC Glucose 133 H Calcium Phosphorus Magnesium 2.50 H AST ALT Alkaline Phosphatase C-Reactive Protein Total Protein Albumin Urine WBC (Auto) Miscellaneous Test 04/14/18 04/14/18 04/14/18 12:47 16:01 23:42 WBC RBC Hgb Hct MCV MCHC RDW Plt Count Lymph % (Auto) [place] % (Auto) Lymph # [place] # Baso # Seg Neutrophils % Seg Neuts % (Manual) Lymphocytes % (Manual) Monocytes % (Manual) Nucleated RBC % Seg Neutrophils # Seg Neutrophils # Man Lymphocytes # (Manual) Monocytes # (Manual) POC ABG pH POC ABG pCO2 POC ABG pO2 Sodium Potassium Chloride Carbon Dioxide BUN Creatinine Glucose POC Glucose 183 H 153 H 172 H Calcium Phosphorus Magnesium AST ALT Alkaline Phosphatase C-Reactive Protein Total Protein Albumin Urine WBC (Auto) Miscellaneous Test 04/15/18 04/15/18 04/15/18 04:42 04:42 05:49 WBC 21.5 H RBC 3.37 L Hgb 9.4 L Hct 28.9 L MCV MCHC RDW Plt Count 490 H Lymph % (Auto) [place] % (Auto) Lymph # [place] # Baso # Seg Neutrophils % Seg Neuts % (Manual) 77.0 H Lymphocytes % (Manual) 7.0 L Monocytes % (Manual) 10.0 H Nucleated RBC % Seg Neutrophils # Seg Neutrophils # Man 16.6 H Lymphocytes # (Manual) Monocytes # (Manual) 2.2 H POC ABG pH POC ABG pCO2 POC ABG pO2 Sodium Potassium 3.4 L Chloride 107.5 H Carbon Dioxide 21 L BUN Creatinine Glucose 165 H POC Glucose 147 H Calcium 8.0 L Phosphorus Magnesium 2.40 H AST ALT Alkaline Phosphatase C-Reactive Protein Total Protein Albumin Urine WBC (Auto) Miscellaneous Test 04/15/18 04/15/18 04/16/18 11:17 17:35 00:26 WBC RBC Hgb Hct MCV MCHC RDW Plt Count Lymph % (Auto) [place] % (Auto) Lymph # [place] # Baso # Seg Neutrophils % Seg Neuts % (Manual) Lymphocytes % (Manual) Monocytes % (Manual) Nucleated RBC % Seg Neutrophils # Seg Neutrophils # Man Lymphocytes # (Manual) Monocytes # (Manual) POC ABG pH POC ABG pCO2 POC ABG pO2 Sodium Potassium Chloride Carbon Dioxide BUN Creatinine Glucose POC Glucose 119 H 169 H 176 H Calcium Phosphorus Magnesium AST ALT Alkaline Phosphatase C-Reactive Protein Total Protein Albumin Urine WBC (Auto) Miscellaneous Test 04/16/18 04/16/18 04/16/18 06:12 06:19 06:21 WBC 20.7 H RBC 3.25 L Hgb 9.0 L Hct MCV MCHC 29 L RDW 16.7 H Plt Count 498 H Lymph % (Auto) [place] % (Auto) Lymph # [place] # Baso # Seg Neutrophils % Seg Neuts % (Manual) 88.0 H Lymphocytes % (Manual) 5.0 L Monocytes % (Manual) Nucleated RBC % Seg Neutrophils # Seg Neutrophils # Man 18.2 H Lymphocytes # (Manual) 1.0 L Monocytes # (Manual) POC ABG pH POC ABG pCO2 POC ABG pO2 Sodium Potassium Chloride Carbon Dioxide BUN Creatinine Glucose POC Glucose > 500 H 493 H Calcium Phosphorus Magnesium AST ALT Alkaline Phosphatase C-Reactive Protein Total Protein Albumin Urine WBC (Auto) Miscellaneous Test 04/16/18 04/16/18 04/16/18 06:24 08:52 14:05 WBC RBC Hgb Hct MCV MCHC RDW Plt Count Lymph % (Auto) [place] % (Auto) Lymph # [place] # Baso # Seg Neutrophils % Seg Neuts % (Manual) Lymphocytes % (Manual) Monocytes % (Manual) Nucleated RBC % Seg Neutrophils # Seg Neutrophils # Man Lymphocytes # (Manual) Monocytes # (Manual) POC ABG pH POC ABG pCO2 POC ABG pO2 Sodium Potassium 3.4 L Chloride Carbon Dioxide BUN Creatinine 0.5 L Glucose 166 H POC Glucose 173 H 196 H Calcium 8.2 L Phosphorus Magnesium AST ALT Alkaline Phosphatase C-Reactive Protein Total Protein Albumin Urine WBC (Auto) Miscellaneous Test 04/16/18 04/17/18 04/17/18 17:17 00:06 04:50 WBC 16.0 H RBC 3.12 L Hgb 8.7 L Hct 29.0 L MCV MCHC RDW 16.2 H Plt Count 455 H Lymph % (Auto) 9.4 L [place] % (Auto) 7.7 H Lymph # [place] # 1.2 H Baso # Seg Neutrophils % 81.9 H Seg Neuts % (Manual) Lymphocytes % (Manual) Monocytes % (Manual) Nucleated RBC % Seg Neutrophils # 13.1 H Seg Neutrophils # Man Lymphocytes # (Manual) Monocytes # (Manual) POC ABG pH POC ABG pCO2 POC ABG pO2 Sodium Potassium Chloride Carbon Dioxide BUN Creatinine Glucose POC Glucose 189 H 190 H Calcium Phosphorus Magnesium AST ALT Alkaline Phosphatase C-Reactive Protein Total Protein Albumin Urine WBC (Auto) Miscellaneous Test 04/17/18 04/17/18 04/17/18 04:50 05:38 07:17 WBC RBC Hgb Hct MCV MCHC RDW Plt Count Lymph % (Auto) [place] % (Auto) Lymph # [place] # Baso # Seg Neutrophils % Seg Neuts % (Manual) Lymphocytes % (Manual) Monocytes % (Manual) Nucleated RBC % Seg Neutrophils # Seg Neutrophils # Man Lymphocytes # (Manual) Monocytes # (Manual) POC ABG pH POC ABG pCO2 POC ABG pO2 Sodium 136 L Potassium 3.4 L Chloride 96.9 L Carbon Dioxide BUN Creatinine 0.6 L Glucose 167 H POC Glucose 190 H Calcium 7.6 L 8.0 L Phosphorus Magnesium AST ALT Alkaline Phosphatase C-Reactive Protein Total Protein Albumin Urine WBC (Auto) Miscellaneous Test 04/17/18 04/17/18 04/17/18 11:50 18:37 23:53 WBC RBC Hgb Hct MCV MCHC RDW Plt Count Lymph % (Auto) [place] % (Auto) Lymph # [place] # Baso # Seg Neutrophils % Seg Neuts % (Manual) Lymphocytes % (Manual) Monocytes % (Manual) Nucleated RBC % Seg Neutrophils # Seg Neutrophils # Man Lymphocytes # (Manual) Monocytes # (Manual) POC ABG pH POC ABG pCO2 POC ABG pO2 Sodium Potassium Chloride Carbon Dioxide BUN Creatinine Glucose POC Glucose 163 H 167 H 142 H Calcium Phosphorus Magnesium AST ALT Alkaline Phosphatase C-Reactive Protein Total Protein Albumin Urine WBC (Auto) Miscellaneous Test 04/18/18 04/18/18 04/18/18 05:59 10:05 12:25 WBC RBC Hgb Hct MCV MCHC RDW Plt Count Lymph % (Auto) [place] % (Auto) Lymph # [place] # Baso # Seg Neutrophils % Seg Neuts % (Manual) Lymphocytes % (Manual) Monocytes % (Manual) Nucleated RBC % Seg Neutrophils # Seg Neutrophils # Man Lymphocytes # (Manual) Monocytes # (Manual) POC ABG pH POC ABG pCO2 POC ABG pO2 Sodium Potassium Chloride Carbon Dioxide BUN Creatinine 0.5 L Glucose 127 H POC Glucose 144 H 171 H Calcium 8.2 L Phosphorus Magnesium AST ALT Alkaline Phosphatase C-Reactive Protein Total Protein Albumin Urine WBC (Auto) Miscellaneous Test 04/18/18 04/18/18 04/19/18 14:54 17:56 00:15 WBC 18.2 H RBC 2.95 L Hgb 8.9 L Hct 29.0 L MCV 98 H MCHC RDW 16.9 H Plt Count Lymph % (Auto) 9.2 L [place] % (Auto) Lymph # [place] # 1.2 H Baso # Seg Neutrophils % 82.7 H Seg Neuts % (Manual) Lymphocytes % (Manual) Monocytes % (Manual) Nucleated RBC % Seg Neutrophils # 15.1 H Seg Neutrophils # Man Lymphocytes # (Manual) Monocytes # (Manual) POC ABG pH POC ABG pCO2 POC ABG pO2 Sodium Potassium Chloride Carbon Dioxide BUN Creatinine Glucose POC Glucose 169 H 148 H Calcium Phosphorus Magnesium AST ALT Alkaline Phosphatase C-Reactive Protein Total Protein Albumin Urine WBC (Auto) Miscellaneous Test 04/19/18 04/19/18 04/19/18 05:21 08:00 08:00 WBC 18.7 H RBC Hgb Hct MCV MCHC RDW Plt Count 531 H Lymph % (Auto) [place] % (Auto) Lymph # [place] # Baso # Seg Neutrophils % Seg Neuts % (Manual) Lymphocytes % (Manual) Monocytes % (Manual) Nucleated RBC % Seg Neutrophils # Seg Neutrophils # Man Lymphocytes # (Manual) Monocytes # (Manual) POC ABG pH POC ABG pCO2 POC ABG pO2 Sodium Potassium Chloride Carbon Dioxide BUN 18 H Creatinine 0.5 L Glucose 141 H POC Glucose 146 H Calcium Phosphorus Magnesium AST ALT 76 H Alkaline Phosphatase 142 H C-Reactive Protein Total Protein Albumin 2.4 L Urine WBC (Auto) Miscellaneous Test 04/19/18 04/19/18 04/20/18 12:12 17:41 00:21 WBC RBC Hgb Hct MCV MCHC RDW Plt Count Lymph % (Auto) [place] % (Auto) Lymph # [place] # Baso # Seg Neutrophils % Seg Neuts % (Manual) Lymphocytes % (Manual) Monocytes % (Manual) Nucleated RBC % Seg Neutrophils # Seg Neutrophils # Man Lymphocytes # (Manual) Monocytes # (Manual) POC ABG pH POC ABG pCO2 POC ABG pO2 Sodium Potassium Chloride Carbon Dioxide BUN Creatinine Glucose POC Glucose 161 H 134 H 159 H Calcium Phosphorus Magnesium AST ALT Alkaline Phosphatase C-Reactive Protein Total Protein Albumin Urine WBC (Auto) Miscellaneous Test 04/20/18 04/20/18 04/20/18 04:00 04:00 07:05 WBC 16.5 H RBC 3.51 L Hgb 9.9 L Hct 30.1 L MCV MCHC RDW Plt Count 530 H Lymph % (Auto) 10.7 L [place] % (Auto) 9.2 H Lymph # [place] # 1.5 H Baso # Seg Neutrophils % 78.5 H Seg Neuts % (Manual) Lymphocytes % (Manual) Monocytes % (Manual) Nucleated RBC % Seg Neutrophils # 13.0 H Seg Neutrophils # Man Lymphocytes # (Manual) Monocytes # (Manual) POC ABG pH POC ABG pCO2 POC ABG pO2 Sodium Potassium Chloride Carbon Dioxide BUN 19 H Creatinine 0.6 L Glucose 185 H POC Glucose 166 H Calcium Phosphorus Magnesium AST ALT Alkaline Phosphatase C-Reactive Protein Total Protein Albumin Urine WBC (Auto) Miscellaneous Test 04/20/18 04/20/18 04/21/18 12:59 19:06 00:17 WBC RBC Hgb Hct MCV MCHC RDW Plt Count Lymph % (Auto) [place] % (Auto) Lymph # [place] # Baso # Seg Neutrophils % Seg Neuts % (Manual) Lymphocytes % (Manual) Monocytes % (Manual) Nucleated RBC % Seg Neutrophils # Seg Neutrophils # Man Lymphocytes # (Manual) Monocytes # (Manual) POC ABG pH POC ABG pCO2 POC ABG pO2 Sodium Potassium Chloride Carbon Dioxide BUN Creatinine Glucose POC Glucose 166 H 170 H 178 H Calcium Phosphorus Magnesium AST ALT Alkaline Phosphatase C-Reactive Protein Total Protein Albumin Urine WBC (Auto) Miscellaneous Test 04/21/18 04/21/18 04/21/18 06:15 06:15 06:39 WBC 15.1 H RBC 3.48 L Hgb 9.8 L Hct 30.2 L MCV MCHC RDW Plt Count 499 H Lymph % (Auto) [place] % (Auto) 8.7 H Lymph # [place] # 1.3 H Baso # 0.2 H Seg Neutrophils % 74.7 H Seg Neuts % (Manual) Lymphocytes % (Manual) Monocytes % (Manual) Nucleated RBC % Seg Neutrophils # 11.3 H Seg Neutrophils # Man Lymphocytes # (Manual) Monocytes # (Manual) POC ABG pH POC ABG pCO2 POC ABG pO2 Sodium Potassium Chloride 108.8 H Carbon Dioxide BUN 18 H Creatinine 0.6 L Glucose 157 H POC Glucose 153 H Calcium 8.0 L Phosphorus Magnesium AST ALT Alkaline Phosphatase C-Reactive Protein Total Protein Albumin Urine WBC (Auto) Miscellaneous Test 04/21/18 04/21/18 04/21/18 11:49 17:07 22:07 WBC RBC Hgb Hct MCV MCHC RDW Plt Count Lymph % (Auto) [place] % (Auto) Lymph # [place] # Baso # Seg Neutrophils % Seg Neuts % (Manual) Lymphocytes % (Manual) Monocytes % (Manual) Nucleated RBC % Seg Neutrophils # Seg Neutrophils # Man Lymphocytes # (Manual) Monocytes # (Manual) POC ABG pH POC ABG pCO2 POC ABG pO2 Sodium Potassium Chloride Carbon Dioxide BUN Creatinine Glucose POC Glucose 184 H 163 H 169 H Calcium Phosphorus Magnesium AST ALT Alkaline Phosphatase C-Reactive Protein Total Protein Albumin Urine WBC (Auto) Miscellaneous Test 04/22/18 04/22/18 04/22/18 07:00 07:00 08:52 WBC 14.0 H RBC 3.26 L Hgb 9.3 L Hct 28.6 L MCV MCHC RDW Plt Count 460 H Lymph % (Auto) 13.0 L [place] % (Auto) 10.1 H Lymph # [place] # 1.4 H Baso # Seg Neutrophils % 74.4 H Seg Neuts % (Manual) Lymphocytes % (Manual) Monocytes % (Manual) Nucleated RBC % Seg Neutrophils # 10.4 H Seg Neutrophils # Man Lymphocytes # (Manual) Monocytes # (Manual) POC ABG pH POC ABG pCO2 POC ABG pO2 Sodium Potassium Chloride Carbon Dioxide BUN 19 H Creatinine 0.6 L Glucose 159 H POC Glucose 156 H Calcium Phosphorus Magnesium AST ALT Alkaline Phosphatase C-Reactive Protein Total Protein Albumin Urine WBC (Auto) Miscellaneous Test 04/22/18 04/22/18 04/22/18 12:34 16:20 21:42 WBC RBC Hgb Hct MCV MCHC RDW Plt Count Lymph % (Auto) [place] % (Auto) Lymph # [place] # Baso # Seg Neutrophils % Seg Neuts % (Manual) Lymphocytes % (Manual) Monocytes % (Manual) Nucleated RBC % Seg Neutrophils # Seg Neutrophils # Man Lymphocytes # (Manual) Monocytes # (Manual) POC ABG pH POC ABG pCO2 POC ABG pO2 Sodium Potassium Chloride Carbon Dioxide BUN Creatinine Glucose POC Glucose 150 H 148 H 134 H Calcium Phosphorus Magnesium AST ALT Alkaline Phosphatase C-Reactive Protein Total Protein Albumin Urine WBC (Auto) Miscellaneous Test 04/23/18 04/23/18 04/23/18 05:45 05:45 08:45 WBC 12.5 H RBC 3.41 L Hgb 9.6 L Hct 29.6 L MCV MCHC RDW Plt Count 441 H Lymph % (Auto) [place] % (Auto) 11.3 H Lymph # [place] # 1.4 H Baso # Seg Neutrophils % 70.2 H Seg Neuts % (Manual) Lymphocytes % (Manual) Monocytes % (Manual) Nucleated RBC % Seg Neutrophils # 9.0 H Seg Neutrophils # Man Lymphocytes # (Manual) Monocytes # (Manual) POC ABG pH POC ABG pCO2 POC ABG pO2 Sodium Potassium Chloride Carbon Dioxide BUN 19 H Creatinine 0.6 L Glucose 119 H POC Glucose 154 H Calcium Phosphorus Magnesium 2.40 H AST ALT Alkaline Phosphatase C-Reactive Protein Total Protein Albumin Urine WBC (Auto) Miscellaneous Test 04/23/18 04/23/18 04/24/18 11:45 22:09 07:26 WBC RBC Hgb Hct MCV MCHC RDW Plt Count Lymph % (Auto) [place] % (Auto) Lymph # [place] # Baso # Seg Neutrophils % Seg Neuts % (Manual) Lymphocytes % (Manual) Monocytes % (Manual) Nucleated RBC % Seg Neutrophils # Seg Neutrophils # Man Lymphocytes # (Manual) Monocytes # (Manual) POC ABG pH POC ABG pCO2 POC ABG pO2 Sodium Potassium Chloride Carbon Dioxide BUN Creatinine Glucose POC Glucose 132 H 113 H 164 H Calcium Phosphorus Magnesium AST ALT Alkaline Phosphatase C-Reactive Protein Total Protein Albumin Urine WBC (Auto) Miscellaneous Test 04/24/18 04/24/18 04/24/18 08:30 08:30 11:27 WBC 14.4 H RBC 3.30 L Hgb 9.6 L Hct 28.4 L MCV MCHC RDW Plt Count Lymph % (Auto) 12.8 L [place] % (Auto) 9.1 H Lymph # [place] # 1.3 H Baso # 0.2 H Seg Neutrophils % 76.4 H Seg Neuts % (Manual) Lymphocytes % (Manual) Monocytes % (Manual) Nucleated RBC % Seg Neutrophils # 11.0 H Seg Neutrophils # Man Lymphocytes # (Manual) Monocytes # (Manual) POC ABG pH POC ABG pCO2 POC ABG pO2 Sodium Potassium Chloride Carbon Dioxide BUN 18 H Creatinine Glucose 155 H POC Glucose 133 H Calcium Phosphorus Magnesium AST ALT Alkaline Phosphatase C-Reactive Protein Total Protein Albumin Urine WBC (Auto) Miscellaneous Test 04/24/18 04/24/18 04/25/18 16:32 22:17 06:16 WBC RBC Hgb Hct MCV MCHC RDW Plt Count Lymph % (Auto) [place] % (Auto) Lymph # [place] # Baso # Seg Neutrophils % Seg Neuts % (Manual) Lymphocytes % (Manual) Monocytes % (Manual) Nucleated RBC % Seg Neutrophils # Seg Neutrophils # Man Lymphocytes # (Manual) Monocytes # (Manual) POC ABG pH POC ABG pCO2 POC ABG pO2 Sodium Potassium Chloride Carbon Dioxide BUN Creatinine Glucose POC Glucose 132 H 124 H 133 H Calcium Phosphorus Magnesium AST ALT Alkaline Phosphatase C-Reactive Protein Total Protein Albumin Urine WBC (Auto) Miscellaneous Test 04/25/18 04/25/18 04/25/18 07:39 11:10 11:31 WBC 11.3 H RBC 3.41 L Hgb 9.8 L Hct 29.5 L MCV MCHC RDW Plt Count Lymph % (Auto) 12.3 L [place] % (Auto) 9.0 H Lymph # [place] # 1.0 H Baso # Seg Neutrophils % 77.3 H Seg Neuts % (Manual) Lymphocytes % (Manual) Monocytes % (Manual) Nucleated RBC % Seg Neutrophils # 8.7 H Seg Neutrophils # Man Lymphocytes # (Manual) Monocytes # (Manual) POC ABG pH POC ABG pCO2 POC ABG pO2 Sodium Potassium Chloride Carbon Dioxide BUN Creatinine Glucose POC Glucose 141 H 145 H Calcium Phosphorus Magnesium AST ALT Alkaline Phosphatase C-Reactive Protein Total Protein Albumin Urine WBC (Auto) Miscellaneous Test 04/25/18 04/25/18 04/26/18 11:31 16:14 00:45 WBC RBC Hgb Hct MCV MCHC RDW Plt Count Lymph % (Auto) [place] % (Auto) Lymph # [place] # Baso # Seg Neutrophils % Seg Neuts % (Manual) Lymphocytes % (Manual) Monocytes % (Manual) Nucleated RBC % Seg Neutrophils # Seg Neutrophils # Man Lymphocytes # (Manual) Monocytes # (Manual) POC ABG pH POC ABG pCO2 POC ABG pO2 Sodium Potassium Chloride Carbon Dioxide BUN Creatinine Glucose 153 H POC Glucose 163 H 141 H Calcium Phosphorus Magnesium AST ALT Alkaline Phosphatase C-Reactive Protein Total Protein Albumin Urine WBC (Auto) Miscellaneous Test 04/26/18 04/26/18 04/26/18 06:10 06:10 06:37 WBC 14.5 H RBC 3.60 L Hgb Hct MCV MCHC RDW Plt Count Lymph % (Auto) [place] % (Auto) 9.6 H Lymph # [place] # 1.4 H Baso # 0.2 H Seg Neutrophils % 75.0 H Seg Neuts % (Manual) Lymphocytes % (Manual) Monocytes % (Manual) Nucleated RBC % Seg Neutrophils # 10.9 H Seg Neutrophils # Man Lymphocytes # (Manual) Monocytes # (Manual) POC ABG pH POC ABG pCO2 POC ABG pO2 Sodium Potassium Chloride Carbon Dioxide BUN Creatinine Glucose 138 H POC Glucose 131 H Calcium Phosphorus Magnesium AST ALT Alkaline Phosphatase C-Reactive Protein Total Protein Albumin Urine WBC (Auto) Miscellaneous Test 04/26/18 11:34 WBC RBC Hgb Hct MCV MCHC RDW Plt Count Lymph % (Auto) [place] % (Auto) Lymph # [place] # Baso # Seg Neutrophils % Seg Neuts % (Manual) Lymphocytes % (Manual) Monocytes % (Manual) Nucleated RBC % Seg Neutrophils # Seg Neutrophils # Man Lymphocytes # (Manual) Monocytes # (Manual) POC ABG pH POC ABG pCO2 POC ABG pO2 Sodium Potassium Chloride Carbon Dioxide BUN Creatinine Glucose POC Glucose 129 H Calcium Phosphorus Magnesium AST ALT Alkaline Phosphatase C-Reactive Protein Total Protein Albumin Urine WBC (Auto) Miscellaneous Test Allied health notes reviewed: nursing
[2018-04-26] MEDS: ZYVOX 600MG/300ML 600 MG/300 ML BAG IV SCH ×2 (16:53→21:09)
[2018-04-26] MEDS: CATAPRES-TTS PATCH TD SCH (17:03)
[2018-04-26 17:25] LABS: INR 1.33 (0.87-1.13)
[2018-04-26] MEDS ORDERED: TPN ADULT 1,800 ML IV SCH (20:00)
[2018-04-26] MEDS ORDERED: INTRALIPID 20% 250 ML IV SCH (20:00)
[2018-04-26] MEDS: LOVENOX SUB-Q SCH (21:05)
[2018-04-27] MEDS: DILAUDID IV PRN ×7 (00:14→22:05)
[2018-04-27] MEDS: NORMODYNE IV SCH ×6 (00:18→17:25)
--- NOTE | 2018-04-27 01:35 | Progress Note ---
Assessment and Plan /Sepsis due to intraabdominal infection and PNA. - treated with cefepime and flagyl along with zosyn - total 17 days of abx - S/p vanco IV x 10 days until 04/19 for MSSA - monitored fever and leukocytosis off abx - ID Physician following, restarted abx today again as cont to spike fever /Leukocytosis due to sepsis, cont to trend /Gastric perforation s/p exploratory lap, repair of perforation on 04/07/18. Surg is attending, managing, on TPN /Pneumoperitoneum due to gastric perforation, s/p repair of perforation on 04/07/18- per surgery /Acute respiratory failure. On supplemental Oxygen by [place] Pulmonology on case /Bilateral pneumonia vs atelectasis completed abx /Hypertension. Monitor BP On Clonidine patch and Lopressor. Also Hydraazine iv prn. /Hypokalemia, resolved /Obstructive seep apnea, CPAP at bedtime Full code status Disposition: SNF when clear by surgery Hospitalist Physical Constitutional: Not in acute distress, obese, HEENT: Atraumatic, normocephalic Neck: supple, no lymphadenopathy, Lungs: no Bilateral rhonchi, no wheezing, CVS: S1-S2 regular, no murmurs, rubs or gallop, Abdomen: soft, mild tender, dressing.bowel sounds present, Musculoskeletal: No edema, clubbing, or cyanosis MEDIA RELATIONS ASSOCIATE: Awake,alert,oriented x brief history: 58 y.o. female s/p lap sleeve gastrectomy with hiatal hernia repair and partial fundoplication 03/30, presents to ER with abdominal pain. In the ER she was noted to have a WBC of >20, tachycardiac as well. A CT abd/ pelvis was performed= free air. Now s/p dx lap, abdominal washout, repair of gastric perforation and placement of drains , s/p abdominal pigtail placement, abx for intraabdominal infection, now waiting for disposition LTAC once clinically stable. Subjective Date of service: 04/26/18 Principal diagnosis: Sepsis Syndrome; Acute Hypoxemic Resp Failure; Acute Encephalopathy Interval history: Pt seen and examined cont to spike fever On TPN, off NG suction (NG tube came off 04/23 and was not replaced since then) s/p drainage catheter exchange today by IR Objective - Constitutional Vitals: Vital Signs - 12hr 04/26/18 04/26/1818 16:49 17:03 18:05 Temperature 102.8 F H Pulse Rate 120 H 120 H 120 H Respiratory 18 Rate Blood Pressure 149/80 149/80 149/80 O2 Sat by Pulse 97 Oximetry 04/26/18 04/26/18 04/26/18 18:09 19:35 19:40 Temperature 101.3 F H Pulse Rate Respiratory 16 17 Rate Blood Pressure O2 Sat by Pulse Oximetry 04/26/18 04/26/18 04/26/18 19:54 20:14 20:15 Temperature 100.8 F H Pulse Rate 110 H Respiratory 20 17 17 Rate Blood Pressure 132/72 O2 Sat by Pulse 95 Oximetry 04/26/18 04/26/18 04/27/18 21:14 23:14 00:14 Temperature 99.8 F H Pulse Rate 110 H Respiratory 17 20 17 Rate Blood Pressure 116/51 O2 Sat by Pulse 96 Oximetry - Labs CBC & Chem 7: 04/26/18 06:10 04/26/18 06:10 Labs: Abnormal lab results 04/26/18 04/26/18 04/26/18 Range/Units 06:10 06:10 06:37 WBC 14.5 H (4.5-11.0) K/mm3 RBC 3.60 L (3.65-5.03) M/mm3 [place] % (Auto) 9.6 H (0.0-7.3) % [place] # 1.4 H (0.0-0.8) K/mm3 Baso # 0.2 H (0.0-0.1) K/mm3 Seg Neutrophils % 75.0 H (40.0-70.0) % Seg Neutrophils # 10.9 H (1.8-7.7) K/mm3 PT (12.2-14.9) Sec. INR (0.87-1.13) Glucose 138 H (65-100) mg/dL POC Glucose 131 H (70-105) Lactate Dehydrogenase (91-180) units/L 04/26/18 04/26/18 04/26/18 Range/Units 11:34 16:10 16:39 WBC (4.5-11.0) K/mm3 RBC (3.65-5.03) M/mm3 [place] % (Auto) (0.0-7.3) % Bureau # (0.0-0.8) K/mm3 Baso # (0.0-0.1) K/mm3 Seg Neutrophils % (40.0-70.0) % Seg Neutrophils # (1.8-7.7) K/mm3 PT 17.2 H (12.2-14.9) Sec. INR 1.33 H (0.87-1.13) Glucose (65-100) mg/dL POC Glucose 129 H (70-105) Lactate Dehydrogenase 266 H (91-180) units/L 04/26/18 04/26/18 Range/Units 16:59 22:39 WBC (4.5-11.0) K/mm3 RBC (3.65-5.03) M/mm3 [place] % (Auto) (0.0-7.3) % Bureau # (0.0-0.8) K/mm3 Baso # (0.0-0.1) K/mm3 Seg Neutrophils % (40.0-70.0) % Seg Neutrophils # (1.8-7.7) K/mm3 PT (12.2-14.9) Sec. INR (0.87-1.13) Glucose (65-100) mg/dL POC Glucose 145 H 187 H (70-105) Lactate Dehydrogenase (91-180) units/L
[2018-04-27] MEDS: ZOSYN/NS 4.5GM/100ML 4.5 GM/100 ML VIAL IV SCH ×3 (05:59→17:24)
[2018-04-27 06:48] LABS: Alanine Aminotransferase 222 units/L (7-56); Albumin 2.5 g/dL (3.9-5); BUN/Creatinine Ratio 23; Blood Urea Nitrogen 14 mg/dL (7-17); Calcium 8.2 mg/dL (8.4-10.2); Hemolysis Index 0
[2018-04-27] MEDS: PULMICORT IH SCH ×3 (08:17→19:34)
[2018-04-27] MEDS: BROVANA NEBU IH SCH ×3 (08:17→19:35)
[2018-04-27] MEDS: SODIUM CHLORIDE FLUSH SYRINGE 10 ML IV SCH ×3 (08:54→22:07)
[2018-04-27] MEDS: PROTONIX IV SCH ×2 (10:09→21:43)
[2018-04-27] MEDS: ZOFRAN IV PRN ×2 (10:09→22:04)
--- NOTE | 2018-04-27 11:55 | Procedure Note ---
Date of procedure: 04/27/18 Pre-op diagnosis: left pleural effusion Post-op diagnosis: other (complex, thick left pleural collection. Empyema? Thombus?) Anesthesia: local Surgeon: JIMMY INFANTE Estimated blood loss: none Pathology: list (only 0.5cc could be aspirated) Specimen disposition: to lab Condition: stable Disposition: floor
--- NOTE | 2018-04-27 11:59 | Ultrasound Report ---
ULTRASOUND THORACENTESIS History: Pleural effusion. Description of procedure: Informed consent was obtained. Sterile technique was utilized. Using ultrasound guidance, a 5 [place] centesis needle was advanced into a small to medium-sized left pleural fluid collection. Only 0.5 cm of thick blood-tinged fluid could be aspirated. The material had the appearance of an empyema or thrombus possibly. A tiny amount of fluid collected was sent to pathology for culture. No complications. Impression: Essentially unsuccessful left thoracentesis. The left pleural collection is complex with thick fluid which could not be aspirated through the thoracentesis needle. A tiny amount was collected for culture. See above.
[2018-04-27] MEDS: ATIVAN IV PRN (12:23)
[2018-04-27] MEDS: APRESOLINE IV PRN (12:24)
[2018-04-27] MEDS: ZYVOX 600MG/300ML 600 MG/300 ML BAG IV SCH ×2 (12:25→21:40)
--- NOTE | 2018-04-27 12:53 | Progress Note ---
Assessment and Plan Assessment and plan: Hospitalist Consulted for Medical management of hypertension on 04/17/18, Patient admitted on 04/07/[address] Wynn , which is my first day seeing patient Ms. Machado is a 58 y.o. woman with a history of obesity s/p lap sleeve gastrectomy with hiatal hernia repair and partial fundoplication 03/30/18, presents to ER with abdominal pains on 04/07/18. She was found to have perforation DATE OF PROCEDURE 04/07/18 PREOPERATIVE DIAGNOSES: Pneumoperitoneum POSTOPERATIVE DIAGNOSES: 1. Gastric perforation SURGEON: Dr. Estes WOOD LATHER: Dony ePrez DO, CST PROCEDURE: 1. Diagnostic laparoscopy 2. Repair of gastric perforation 3. Abdominal washout 4. intraoperative EGD Date of procedure: 04/27/18 Pre-op diagnosis: left pleural effusion Post-op diagnosis: other (complex, thick left pleural collection. Empyema? Thombus?) Anesthesia: local Surgeon: JIMMY INFANTE Estimated blood loss: none Pathology: list (only 0.5cc could be aspirated) Specimen disposition: to lab Condition: stable Disposition: floor /Hypertension. Monitor BP On Clonidine patch and Lopressor. Also Hydraazine iv prn. /Sepsis due to intraabdominal infection and PNA. - treated with cefepime and flagyl along with zosyn - total 17 days of abx - S/p vanco IV x 10 days until 04/19 for MSSA - monitored fever and leukocytosis off abx - ID Physician managing, restarted abx today again as cont to spike fever /Gastric perforation s/p exploratory lap, repair of perforation on 04/07/18. Surg is attending, managing, on TPN /Pneumoperitoneum due to gastric perforation, s/p repair of perforation on 04/07/18- per surgery /Acute respiratory failure with Pleural Effusion s/p thoracentesis 04/26/18 On supplemental Oxygen by [place] Pulmonology is managing /Bilateral pneumonia vs atelectasis completed abx /Hypokalemia, resolved /Obstructive seep apnea, CPAP at bedtime Full code status Disposition: SNF when cleared by surgery and pulmonology History Interval history: Patient was seen and examined. Follow-up on current diagnosis of hypertension. Overnight uneventful. Patient denies any chest pain, shortness breath, nausea/ vomiting or severe headaches. Imaging, nursing note, chart, labs and old chart reviewed. Discussed with patient. Hospitalist Physical - Physical exam Narrative exam: GEN: WDWN, bmi 34, NAD, Awake, Alert, Orientated HEENT: NCAT, EOMI, PERRL, OP Clear NECK: supple, no adenopathy, no thyromegaly, no JVD CVS/HEART: RRR, normal S1S2, pulses present bilaterally CHEST/LUNGS: diminished bs bilateral, Symmetrical chest expansion, reduced air entry bilaterally GI/Abdomen: soft,drain in place good bowel sounds, no guarding or rebound /Bladder: no suprapubic tenderness, no CVA or paraspinal tenderness EXT/Skin: no c/c/e, no obvious rash MSK: FROM x 4 Neuro: CN 2-12 grossly intact, no new focal deficits Psych: calm - Constitutional Vitals: Temp Pulse Resp BP Pulse Ox 98.3 F 112 H 20 163/87 97 04/27/18 11:42 04/27/18 12:24 04/27/18 12:23 04/27/18 12:24 04/27/18 07:54 General appearance: Present: no acute distress, obese Results - Labs CBC & Chem 7: 04/26/18 06:10 04/27/18 05:50 Labs: Laboratory Last Values WBC 14.5 K/mm3 (4.5-11.0) H 04/26/18 06:10 RBC 3.60 M/mm3 (3.65-5.03) L 04/26/18 06:10 Hgb 10.2 gm/dl (10.1-14.3) 04/26/18 06:10 Hct 30.7 % (30.3-42.9) 04/26/18 06:10 MCV 85 fl (79-97) 04/26/18 06:10 MCH 28 pg (28-32) 04/26/18 06:10 MCHC 33 % (30-34) 04/26/18 06:10 RDW 14.6 % (13.2-15.2) 04/26/18 06:10 Plt Count 347 K/mm3 (140-440) 04/26/18 06:10 Lymph % (Auto) 14.0 % (13.4-35.0) 04/26/18 06:10 [place] % (Auto) 9.6 % (0.0-7.3) H 04/26/18 06:10 Eos % (Auto) 0.2 % (0.0-4.3) 04/26/18 06:10 Baso % (Auto) 1.2 % (0.0-1.8) 04/26/18 06:10 Lymph # 2.0 K/mm3 (1.2-5.4) 04/26/18 06:10 [place] # 1.4 K/mm3 (0.0-0.8) H 04/26/18 06:10 Eos # 0.0 K/mm3 (0.0-0.4) 04/26/18 06:10 Baso # 0.2 K/mm3 (0.0-0.1) H 04/26/18 06:10 Add Manual Diff Complete 04/16/18 06:12 Total Counted 100 04/16/18 06:12 Seg Neutrophils % 75.0 % (40.0-70.0) H 04/26/18 06:10 Seg Neuts % (Manual) 88.0 % (40.0-70.0) H 04/16/18 06:12 Band Neutrophils % 1.0 % 04/16/18 06:12 Lymphocytes % (Manual) 5.0 % (13.4-35.0) L 04/16/18 06:12 Reactive Lymphs % (Man) 0 % 04/16/18 06:12 Monocytes % (Manual) 2.0 % (0.0-7.3) 04/16/18 06:12 Eosinophils % (Manual) 0 % (0.0-4.3) 04/16/18 06:12 Basophils % (Manual) 0 % (0.0-1.8) 04/16/18 06:12 Metamyelocytes % 4.0 % 04/16/18 06:12 Myelocytes % 0 % 04/16/18 06:12 Promyelocytes % 0 % 04/16/18 06:12 Blast Cells % 0 % 04/16/18 06:12 Nucleated RBC % Not Reportable 04/16/18 06:12 Seg Neutrophils # 10.9 K/mm3 (1.8-7.7) H 04/26/18 06:10 Seg Neutrophils # Man 18.2 K/mm3 (1.8-7.7) H 04/16/18 06:12 Band Neutrophils # 0.2 K/mm3 04/16/18 06:12 Lymphocytes # (Manual) 1.0 K/mm3 (1.2-5.4) L 04/16/18 06:12 Abs React Lymphs (Man) 0.0 K/mm3 04/16/18 06:12 Monocytes # (Manual) 0.4 K/mm3 (0.0-0.8) 04/16/18 06:12 Eosinophils # (Manual) 0.0 K/mm3 (0.0-0.4) 04/16/18 06:12 Basophils # (Manual) 0.0 K/mm3 (0.0-0.1) 04/16/18 06:12 Metamyelocytes # 0.8 K/mm3 04/16/18 06:12 Myelocytes # 0.0 K/mm3 04/16/18 06:12 Promyelocytes # 0.0 K/mm3 04/16/18 06:12 Blast Cells # 0.0 K/mm3 04/16/18 06:12 WBC Morphology Not Reportable 04/16/18 06:12 Hypersegmented Neuts Not Reportable 04/16/18 06:12 Hyposegmented Neuts Not Reportable 04/16/18 06:12 Hypogranular Neuts Not Reportable 04/16/18 06:12 Smudge Cells Not Reportable 04/16/18 06:12 Toxic Granulation Not Reportable 04/16/18 06:12 Toxic Vacuolation Not Reportable 04/16/18 06:12 Dohle Bodies Not Reportable 04/16/18 06:12 Pelger-Huet Anomaly Not Reportable 04/16/18 06:12 Narendra Rods Not Reportable 04/16/18 06:12 Platelet Estimate Cons 04/16/18 06:12 Clumped Platelets Not Reportable 04/16/18 06:12 Plt Clumps, EDTA Not Reportable 04/16/18 06:12 Large Platelets Not Reportable 04/16/18 06:12 Giant Platelets Not Reportable 04/16/18 06:12 Platelet Satelliting Not Reportable 04/16/18 06:12 Plt Morphology Comment Not Reportable 04/16/18 06:12 RBC Morphology Not Reportable 04/16/18 06:12 Dimorphic RBCs Not Reportable 04/16/18 06:12 Polychromasia Few 07/20/18 06:12 Hypochromasia Not Reportable 04/16/18 06:12 Poikilocytosis Not Reportable 04/16/18 06:12 Anisocytosis 1+ 04/16/18 06:12 Microcytosis Not Reportable 04/16/18 06:12 Macrocytosis Not Reportable 04/16/18 06:12 Spherocytes Not Reportable 04/16/18 06:12 Pappenheimer Bodies Not Reportable 04/16/18 06:12 Sickle Cells Not Reportable 04/16/18 06:12 Target Cells Not Reportable 04/16/18 06:12 Tear Drop Cells Not Reportable 04/16/18 06:12 Ovalocytes Not Reportable 04/16/18 06:12 Helmet Cells Not Reportable 04/16/18 06:12 [place] Bodies Not Reportable 04/16/18 06:12 [place] Rings Not Reportable 04/16/18 06:12 [place] Cells Not Reportable 04/16/18 06:12 Bite Cells Not Reportable 04/16/18 06:12 Crenated Cell Not Reportable 04/16/18 06:12 Elliptocytes Not Reportable 04/16/18 06:12 Acanthocytes (Spur) Not Reportable 04/16/18 06:12 Rouleaux Not Reportable 04/16/18 06:12 Hemoglobin C Crystals Not Reportable 04/16/18 06:12 Schistocytes Not Reportable 04/16/18 06:12 Malaria parasites Not Reportable 04/16/18 06:12 Giorgio Bodies Not Reportable 04/16/18 06:12 Hem Pathologist Commnt No 04/16/18 06:12 PT 17.2 Sec. (12.2-14.9) H 04/26/18 16:39 INR 1.33 (0.87-1.13) H 04/26/18 16:39 APTT 29.0 Sec. (24.2-36.6) 04/07/18 16:28 POC ABG pH 7.519 (7.35-7.45) H 04/10/18 12:59 POC ABG pCO2 29.3 (35-45) L 04/10/18 12:59 POC ABG pO2 63 (80-105) L 04/10/18 12:59 POC ABG HCO3 23.9 04/10/18 12:59 POC ABG Total CO2 25 04/10/18 12:59 POC ABG O2 Sat 94 04/10/18 12:59 POC ABG Base Excess 1 04/10/18 12:59 VBG pH 7.413 (7.320-7.420) 04/07/18 09:41 FiO2 28 % 04/10/18 12:59 Sodium 138 mmol/L (137-145) 04/27/18 05:50 Potassium 3.8 mmol/L (3.6-5.0) 04/27/18 05:50 Chloride 97.4 mmol/L (98-107) L 04/27/18 05:50 Carbon Dioxide 26 mmol/L (22-30) 04/27/18 05:50 Anion Gap 18 mmol/L 04/27/18 05:50 BUN 14 mg/dL (7-17) 04/27/18 05:50 Creatinine 0.6 mg/dL (0.7-1.2) L 04/27/18 05:50 Estimated GFR > 60 ml/min 04/27/18 05:50 BUN/Creatinine Ratio 23 % 04/27/18 05:50 Glucose 135 mg/dL (65-100) H 04/27/18 05:50 POC Glucose 162 (70-105) H 04/27/18 11:52 Lactic Acid 0.80 mmol/L (0.7-2.0) 04/08/18 13:33 Calcium 8.2 mg/dL (8.4-10.2) L 04/27/18 05:50 Phosphorus 3.00 mg/dL (2.5-4.5) 04/27/18 05:50 Magnesium 1.90 mg/dL (1.7-2.3) 04/27/18 05:50 Total Bilirubin 0.40 mg/dL (0.1-1.2) 04/27/18 05:50 AST 97 units/L (5-40) H 04/27/18 05:50 ALT 222 units/L (7-56) H 04/27/18 05:50 Alkaline Phosphatase 191 units/L (35-129) H 04/27/18 05:50 Lactate Dehydrogenase 266 units/L (91-180) H 04/26/18 16:10 Total Creatine Kinase 37 units/L (30-135) 04/19/18 12:55 CK-MB (CK-2) 1.0 ng/mL (0.0-4.0) 04/19/18 12:55 CK-MB (CK-2) Rel Index 2.7 (0-4) 04/19/18 12:55 Troponin T < 0.010 ng/mL (0.00-0.029) 04/19/18 12:55 C-Reactive Protein 29.60 mg/dL (0.00-1.30) H 04/13/18 04:20 Total Protein 7.5 g/dL (6.3-8.2) 04/27/18 05:50 Albumin 2.5 g/dL (3.9-5) L 04/27/18 05:50 Albumin/Globulin Ratio 0.5 % 04/27/18 05:50 Triglycerides 114 mg/dL (2-149) 04/16/18 08:52 Urine Color Yellow (Yellow) 04/24/18 15:20 Urine Turbidity Clear (Clear) 04/24/18 15:20 Urine pH 6.0 (5.0-7.0) 04/24/18 15:20 Ur Specific Delta 1.023 (1.003-1.030) 04/24/18 15:20 Urine Protein 30 mg/dl mg/dL (Negative) 04/24/18 15:20 Urine Glucose (UA) Neg mg/dL (Negative) 04/24/18 15:20 Urine Ketones Neg mg/dL (Negative) 04/24/18 15:20 Urine Blood Neg (Negative) 04/24/18 15:20 Urine Nitrite Neg (Negative) 04/24/18 15:20 Urine Bilirubin Neg (Negative) 04/24/18 15:20 Urine Urobilinogen < 2.0 mg/dL (<2.0) 04/24/18 15:20 Ur Leukocyte Esterase Neg (Negative) 04/24/18 15:20 Urine WBC (Auto) 3.0 /HPF (0.0-6.0) 04/24/18 15:20 Urine RBC (Auto) 4.0 /HPF (0.0-6.0) 04/24/18 15:20 U Epithel Cells (Auto) 4.0 /HPF (0-13.0) 04/24/18 15:20 Urine Mucus Few /HPF 04/24/18 15:20 Vancomycin Trough 13.2 ug/mL (5.0-20.0) 04/14/18 15:51 Miscellaneous Test Flexitest 1 H 04/13/18 13:37
--- NOTE | 2018-04-27 13:41 | Progress Note ---
Assessment and Plan Sepsis with altered mental status in the setting of the systemic inflammatory response syndrom. Perforated abdominal viscus status post exploratory laparotomy and repair. Obesity. Pleural effusion Bilateral lower lobe infiltrates Obstructive sleep apnea according to the history. Acute encephalopathy, presumably toxic metabolic( resolved) History of hypertension. Arthritis. Gastroesophageal reflux disease. Morbid obesity. Acute hypoxemic respiratory failure Leukocytosis Hyperglycemia--spurious New fevers Patient is at risk for fungemia---TPN, intraabdominal sepsis. Will send off fungal cultures, defer ID re addition of empiric antifungal therapies - continue supplemental oxygen to keep sats > 90% - BIPAP qhs and prn - Continue incentive spirometry and airway expansion measures -Gentle diuresis while monitoring hemodynamics, electrolyte profile and renal function -bronchodilators( short acting bronchodilators, scheduled) -Antibiotics/anti-infectives per ID -Monitor fever curve and trend WCC - continue TPN , supportive care - continue GI & VTE prophylaxis - wound care per WCT / RN and surgeon - continue other care per attending / other consultants Discussed care plan with RT and RN, updated patient Subjective Date of service: 04/27/18 Principal diagnosis: Sepsis Syndrome; Acute Hypoxemic Resp Failure; Acute Encephalopathy Interval history: Sepsis Syndrome; Acute Hypoxemic Resp Failure; Acute Encephalopathy Seen and examined at bedside; 24hour events reviewed; nursing and respiratory care staff consulted; no adverse overnight events reported to me; resting in bed ; much more appropriate mentally; Fevers on and off, s/p thoracentesis...minimal fluid per documentation, complex thick pleural effusion , only 0.5 cc drained s/p Drainage catheter evaluation through indwelling drain , drainage catheter exchange by IR 04/26/18 New fevers, high grade. On going complains of abdominal pain Objective Vital Signs - 12hr 04/27/18 04/27/18 04/27/18 02:26 04:06 04:56 Temperature 99.6 F Pulse Rate 112 H Pulse Rate [ Anterior Bilateral] Respiratory 17 20 17 Rate Respiratory Rate [Anterior Bilateral] Blood Pressure 136/60 O2 Sat by Pulse 95 Oximetry 04/27/18 04/27/18 04/27/18 05:26 07:54 08:17 Temperature 98.7 F Pulse Rate 121 H Pulse Rate [ 109 H Anterior Bilateral] Respiratory 17 18 Rate Respiratory 18 Rate [Anterior Bilateral] Blood Pressure 122/67 O2 Sat by Pulse 97 Oximetry 04/27/18 04/27/1804/27/18 08:18 09:22 09:50 Temperature Pulse Rate 112 H Pulse Rate [ 112 H Anterior Bilateral] Respiratory 20 Rate Respiratory 18 Rate [Anterior Bilateral] Blood Pressure 122/67 O2 Sat by Pulse Oximetry 04/27/18 04/27/18 04/27/18 11:42 12:23 12:24 Temperature 98.3 F Pulse Rate 112 H Pulse Rate [ Anterior Bilateral] Respiratory 18 20 Rate Respiratory Rate [Anterior Bilateral] Blood Pressure 163/87 163/87 O2 Sat by Pulse Oximetry Constitutional: no acute distress, alert, other (elderly AAF , normocephalic and atraumatic resting in bed , not in any respiratory distress) Eyes: non-icteric ENT: oropharynx moist, other (no thyromegaly) Neck: supple, no lymphadenopathy, no JVD, other (large neck circumference) Effort: mildly labored Ascultation: Bilateral: diminished breath sounds, rhonchi (scant in bases) Percussion: Bilateral: not dull Cardiovascular: regular rate and rhythm, other (No R/M) Gastrointestinal: hypoactive bowel sounds, soft, tender (mild), non-distended, other (no palpable HSM) Integumentary: normal Extremities: no cyanosis, no edema, pulses normal, no ischemia or petechiae Neurologic: normal mental status, non-focal exam (grossly), pupils equal and round, CN II-XII normal, motor strength normal and Psychiatric: mood appropriate, affect normal CBC and BMP: 04/26/18 06:10 04/27/18 05:50 ABG, PT/INR, D-dimer: ABG POC ABG pH 7.519 (7.35-7.45) H 04/10/18 12:59 POC ABG pCO2 29.3 (35-45) L 04/10/18 12:59 POC ABG pO2 63 (80-105) L 04/10/18 12:59 POC ABG HCO3 23.9 04/10/18 12:59 POC ABG Total CO2 25 04/10/18 12:59 POC ABG O2 Sat 94 04/10/18 12:59 PT/INR, D-dimer PT 17.2 Sec. (12.2-14.9) H 04/26/18 16:39 INR 1.33 (0.87-1.13) H 04/26/18 16:39 Abnormal lab findings: Abnormal Labs 04/07/18 04/07/18 04/07/18 00:05 00:05 09:41 WBC 18.4 H 21.3 H RBC Hgb Hct MCV MCHC RDW Plt Count Lymph % (Auto) 4.5 L [place] % (Auto) Lymph # 0.8 L [place] # 1.2 H Baso # Seg Neutrophils % 88.9 H Seg Neuts % (Manual) 85.0 H Lymphocytes % (Manual) 4.0 L Monocytes % (Manual) Nucleated RBC % Seg Neutrophils # 16.4 H Seg Neutrophils # Man 18.1 H Lymphocytes # (Manual) 0.9 L Monocytes # (Manual) 1.1 H PT INR POC ABG pH POC ABG pCO2 POC ABG pO2 Sodium Potassium Chloride Carbon Dioxide BUN Creatinine Glucose 123 H POC Glucose Calcium 8.0 L Phosphorus Magnesium 1.60 L AST 59 H ALT Alkaline Phosphatase Lactate Dehydrogenase C-Reactive Protein Total Protein Albumin 2.9 L Urine WBC (Auto) Miscellaneous Test 04/07/18 04/08/18 04/08/18 09:41 00:20 10:25 WBC 19.2 H RBC Hgb Hct MCV MCHC RDW Plt Count Lymph % (Auto) 5.4 L [place] % (Auto) Lymph # 1.0 L [place] # 1.1 H Baso # Seg Neutrophils % 88.9 H Seg Neuts % (Manual) Lymphocytes % (Manual) Monocytes % (Manual) Nucleated RBC % Seg Neutrophils # 17.1 H Seg Neutrophils # Man Lymphocytes # (Manual) Monocytes # (Manual) PT INR POC ABG pH POC ABG pCO2 POC ABG pO2 Sodium Potassium 3.3 L Chloride 95.1 L Carbon Dioxide 21 L BUN Creatinine Glucose 113 H POC Glucose Calcium Phosphorus Magnesium AST ALT Alkaline Phosphatase Lactate Dehydrogenase C-Reactive Protein Total Protein Albumin 3.6 L Urine WBC (Auto) 45.0 H Miscellaneous Test 04/08/18 04/08/18 04/08/18 10:25 13:33 23:53 WBC 12.8 H RBC Hgb Hct MCV MCHC RDW Plt Count Lymph % (Auto) [place] % (Auto) Lymph # [place] # Baso # Seg Neutrophils % Seg Neuts % (Manual) 97.0 H Lymphocytes % (Manual) 2.0 L Monocytes % (Manual) Nucleated RBC % Seg Neutrophils # Seg Neutrophils # Man 12.4 H Lymphocytes # (Manual) 0.3 L Monocytes # (Manual) PT INR POC ABG pH POC ABG pCO2 POC ABG pO2 Sodium Potassium 3.5 L Chloride Carbon Dioxide BUN Creatinine Glucose 123 H POC Glucose Calcium 7.9 L Phosphorus Magnesium AST 53 H ALT Alkaline Phosphatase Lactate Dehydrogenase C-Reactive Protein 52.00 H Total Protein 6.1 L Albumin 2.7 L Urine WBC (Auto) Miscellaneous Test 04/09/18 04/09/18 04/09/18 04:20 04:20 13:38 WBC 16.2 H RBC Hgb Hct MCV MCHC RDW Plt Count Lymph % (Auto) [place] % (Auto) Lymph # [place] # Baso # Seg Neutrophils % Seg Neuts % (Manual) 89.0 H Lymphocytes % (Manual) 4.0 L Monocytes % (Manual) Nucleated RBC % Seg Neutrophils # Seg Neutrophils # Man 14.4 H Lymphocytes # (Manual) 0.6 L Monocytes # (Manual) PT INR POC ABG pH 7.494 H POC ABG pCO2 31.6 L POC ABG pO2 68 L Sodium Potassium 3.5 L Chloride Carbon Dioxide BUN Creatinine 0.6 L Glucose 117 H POC Glucose Calcium 7.9 L Phosphorus 1.50 L D Magnesium AST ALT Alkaline Phosphatase Lactate Dehydrogenase C-Reactive Protein Total Protein 5.6 L Albumin 2.9 L Urine WBC (Auto) Miscellaneous Test 04/09/18 04/09/18 04/09/18 18:25 21:45 21:45 WBC 21.3 H RBC 3.62 L Hgb Hct MCV MCHC 35 H RDW Plt Count Lymph % (Auto) [place] % (Auto) Lymph # [place] # Baso # Seg Neutrophils % Seg Neuts % (Manual) 90.0 H Lymphocytes % (Manual) 6.0 L Monocytes % (Manual) Nucleated RBC % 1.0 H Seg Neutrophils # Seg Neutrophils # Man 19.2 H Lymphocytes # (Manual) Monocytes # (Manual) 0.9 H PT INR POC ABG pH POC ABG pCO2 POC ABG pO2 Sodium Potassium Chloride Carbon Dioxide BUN 5 L Creatinine 0.5 L Glucose 134 H POC Glucose 155 H Calcium 7.9 L Phosphorus 2.20 L D Magnesium AST ALT Alkaline Phosphatase Lactate Dehydrogenase C-Reactive Protein Total Protein Albumin Urine WBC (Auto) Miscellaneous Test 04/09/18 04/10/18 04/10/18 23:38 04:07 04:07 WBC 20.2 H RBC 3.38 L Hgb 9.4 L Hct 28.9 L MCV MCHC RDW Plt Count Lymph % (Auto) [place] % (Auto) Lymph # [place] # Baso # Seg Neutrophils % Seg Neuts % (Manual) Lymphocytes % (Manual) 6.0 L Monocytes % (Manual) Nucleated RBC % Seg Neutrophils # Seg Neutrophils # Man 10.7 H Lymphocytes # (Manual) Monocytes # (Manual) PT INR POC ABG pH POC ABG pCO2 POC ABG pO2 Sodium Potassium Chloride Carbon Dioxide BUN 6 L Creatinine 0.6 L Glucose 176 H POC Glucose 160 H Calcium 7.7 L Phosphorus Magnesium AST ALT Alkaline Phosphatase Lactate Dehydrogenase C-Reactive Protein Total Protein Albumin Urine WBC (Auto) Miscellaneous Test 04/10/18 04/10/18 04/10/18 05:29 11:55 12:59 WBC RBC Hgb Hct MCV MCHC RDW Plt Count Lymph % (Auto) [place] % (Auto) Lymph # [place] # Baso # Seg Neutrophils % Seg Neuts % (Manual) Lymphocytes % (Manual) Monocytes % (Manual) Nucleated RBC % Seg Neutrophils # Seg Neutrophils # Man Lymphocytes # (Manual) Monocytes # (Manual) PT INR POC ABG pH 7.519 H POC ABG pCO2 29.3 L POC ABG pO2 63 L Sodium Potassium Chloride Carbon Dioxide BUN Creatinine Glucose POC Glucose 171 H 194 H Calcium Phosphorus Magnesium AST ALT Alkaline Phosphatase Lactate Dehydrogenase C-Reactive Protein Total Protein Albumin Urine WBC (Auto) Miscellaneous Test 04/10/18 04/10/18 04/10/18 18:11 18:28 18:28 WBC 22.7 H RBC 3.62 L Hgb Hct MCV MCHC RDW Plt Count Lymph % (Auto) [place] % (Auto) Lymph # [place] # Baso # Seg Neutrophils % Seg Neuts % (Manual) 84.0 H Lymphocytes % (Manual) 7.0 L Monocytes % (Manual) 8.0 H Nucleated RBC % Seg Neutrophils # Seg Neutrophils # Man 19.1 H Lymphocytes # (Manual) Monocytes # (Manual) 1.8 H PT INR POC ABG pH POC ABG pCO2 POC ABG pO2 Sodium Potassium Chloride Carbon Dioxide BUN Creatinine Glucose POC Glucose 118 H Calcium Phosphorus Magnesium AST ALT Alkaline Phosphatase Lactate Dehydrogenase C-Reactive Protein 45.20 H Total Protein Albumin Urine WBC (Auto) Miscellaneous Test 04/10/18 04/10/18 04/11/18 18:28 23:45 03:35 WBC 20.9 H RBC 3.54 L Hgb 10.0 L Hct MCV MCHC RDW Plt Count Lymph % (Auto) [place] % (Auto) Lymph # [place] # Baso # Seg Neutrophils % Seg Neuts % (Manual) 80.0 H Lymphocytes % (Manual) 6.0 L Monocytes % (Manual) Nucleated RBC % Seg Neutrophils # Seg Neutrophils # Man 16.7 H Lymphocytes # (Manual) Monocytes # (Manual) PT INR POC ABG pH POC ABG pCO2 POC ABG pO2 Sodium Potassium 3.5 L Chloride Carbon Dioxide BUN 5 L Creatinine 0.5 L Glucose 108 H POC Glucose 149 H Calcium 8.3 L Phosphorus Magnesium AST ALT Alkaline Phosphatase Lactate Dehydrogenase C-Reactive Protein Total Protein Albumin Urine WBC (Auto) Miscellaneous Test 04/11/18 04/11/18 04/11/18 03:35 06:17 11:29 WBC RBC Hgb Hct MCV MCHC RDW Plt Count Lymph % (Auto) [place] % (Auto) Lymph # [place] # Baso # Seg Neutrophils % Seg Neuts % (Manual) Lymphocytes % (Manual) Monocytes % (Manual) Nucleated RBC % Seg Neutrophils # Seg Neutrophils # Man Lymphocytes # (Manual) Monocytes # (Manual) PT INR POC ABG pH POC ABG pCO2 POC ABG pO2 Sodium Potassium Chloride Carbon Dioxide BUN Creatinine 0.5 L Glucose 143 H POC Glucose 155 H 158 H Calcium 8.2 L Phosphorus Magnesium AST ALT Alkaline Phosphatase Lactate Dehydrogenase C-Reactive Protein Total Protein 6.0 L Albumin 2.2 L Urine WBC (Auto) Miscellaneous Test 04/11/18 04/11/18 04/12/18 18:13 23:51 05:29 WBC RBC Hgb Hct MCV MCHC RDW Plt Count Lymph % (Auto) [place] % (Auto) Lymph # [place] # Baso # Seg Neutrophils % Seg Neuts % (Manual) Lymphocytes % (Manual) Monocytes % (Manual) Nucleated RBC % Seg Neutrophils # Seg Neutrophils # Man Lymphocytes # (Manual) Monocytes # (Manual) PT INR POC ABG pH POC ABG pCO2 POC ABG pO2 Sodium Potassium Chloride Carbon Dioxide BUN Creatinine Glucose POC Glucose 135 H 143 H 150 H Calcium Phosphorus Magnesium AST ALT Alkaline Phosphatase Lactate Dehydrogenase C-Reactive Protein Total Protein Albumin Urine WBC (Auto) Miscellaneous Test 07/04/12/18 04/13/18 05:40 05:40 00:32 WBC 18.0 H RBC 3.34 L Hgb 9.5 L Hct 28.9 L MCV MCHC RDW Plt Count Lymph % (Auto) 7.4 L [place] % (Auto) 10.8 H Lymph # [place] # 1.9 H Baso # Seg Neutrophils % 81.1 H Seg Neuts % (Manual) Lymphocytes % (Manual) Monocytes % (Manual) Nucleated RBC % Seg Neutrophils # 14.6 H Seg Neutrophils # Man Lymphocytes # (Manual) Monocytes # (Manual) PT INR POC ABG pH POC ABG pCO2 POC ABG pO2 Sodium Potassium Chloride 107.7 H Carbon Dioxide 21 L BUN Creatinine 0.6 L Glucose 140 H POC Glucose 144 H Calcium Phosphorus Magnesium AST ALT Alkaline Phosphatase Lactate Dehydrogenase C-Reactive Protein Total Protein Albumin Urine WBC (Auto) Miscellaneous Test 04/13/18 04/13/18 04/13/18 04:20 04:20 04:20 WBC 18.1 H RBC 3.52 L Hgb 9.8 L Hct 30.1 L MCV MCHC RDW Plt Count Lymph % (Auto) 11.1 L [place] % (Auto) 13.6 H Lymph # [place] # 2.5 H Baso # Seg Neutrophils % 74.4 H Seg Neuts % (Manual) Lymphocytes % (Manual) Monocytes % (Manual) Nucleated RBC % Seg Neutrophils # 13.4 H Seg Neutrophils # Man Lymphocytes # (Manual) Monocytes # (Manual) PT INR POC ABG pH POC ABG pCO2 POC ABG pO2 Sodium Potassium Chloride Carbon Dioxide BUN Creatinine 0.5 L Glucose 142 H POC Glucose Calcium Phosphorus Magnesium AST ALT Alkaline Phosphatase Lactate Dehydrogenase C-Reactive Protein 29.60 H Total Protein Albumin Urine WBC (Auto) Miscellaneous Test 04/13/18 04/13/18 04/13/18 05:35 13:37 23:50 WBC RBC Hgb Hct MCV MCHC RDW Plt Count Lymph % (Auto) [place] % (Auto) Lymph # [place] # Baso # Seg Neutrophils % Seg Neuts % (Manual) Lymphocytes % (Manual) Monocytes % (Manual) Nucleated RBC % Seg Neutrophils # Seg Neutrophils # Man Lymphocytes # (Manual) Monocytes # (Manual) PT INR POC ABG pH POC ABG pCO2 POC ABG pO2 Sodium Potassium Chloride Carbon Dioxide BUN Creatinine Glucose POC Glucose 142 H 160 H Calcium Phosphorus Magnesium AST ALT Alkaline Phosphatase Lactate Dehydrogenase C-Reactive Protein Total Protein Albumin Urine WBC (Auto) Miscellaneous Test Flexitest 1 H 04/14/18 04/14/18 04/14/18 04:00 04:00 05:29 WBC 22.1 H RBC 3.59 L Hgb 9.9 L Hct MCV MCHC RDW Plt Count Lymph % (Auto) [place] % (Auto) Lymph # [place] # Baso # Seg Neutrophils % Seg Neuts % (Manual) 73.0 H Lymphocytes % (Manual) 9.0 L Monocytes % (Manual) 11.0 H Nucleated RBC % Seg Neutrophils # Seg Neutrophils # Man 16.1 H Lymphocytes # (Manual) Monocytes # (Manual) 2.4 H PT INR POC ABG pH POC ABG pCO2 POC ABG pO2 Sodium Potassium Chloride Carbon Dioxide BUN Creatinine Glucose 155 H POC Glucose 133 H Calcium Phosphorus Magnesium 2.50 H AST ALT Alkaline Phosphatase Lactate Dehydrogenase C-Reactive Protein Total Protein Albumin Urine WBC (Auto) Miscellaneous Test 04/14/18 04/14/18 04/14/18 12:47 16:01 23:42 WBC RBC Hgb Hct MCV MCHC RDW Plt Count Lymph % (Auto) [place] % (Auto) Lymph # [place] # Baso # Seg Neutrophils % Seg Neuts % (Manual) Lymphocytes % (Manual) Monocytes % (Manual) Nucleated RBC % Seg Neutrophils # Seg Neutrophils # Man Lymphocytes # (Manual) Monocytes # (Manual) PT INR POC ABG pH POC ABG pCO2 POC ABG pO2 Sodium Potassium Chloride Carbon Dioxide BUN Creatinine Glucose POC Glucose 183 H 153 H 172 H Calcium Phosphorus Magnesium AST ALT Alkaline Phosphatase Lactate Dehydrogenase C-Reactive Protein Total Protein Albumin Urine WBC (Auto) Miscellaneous Test 04/15/18 04/15/18 04/15/18 04:42 04:42 05:49 WBC 21.5 H RBC 3.37 L Hgb 9.4 L Hct 28.9 L MCV MCHC RDW Plt Count 490 H Lymph % (Auto) [place] % (Auto) Lymph # [place] # Baso # Seg Neutrophils % Seg Neuts % (Manual) 77.0 H Lymphocytes % (Manual) 7.0 L Monocytes % (Manual) 10.0 H Nucleated RBC % Seg Neutrophils # Seg Neutrophils # Man 16.6 H Lymphocytes # (Manual) Monocytes # (Manual) 2.2 H PT INR POC ABG pH POC ABG pCO2 POC ABG pO2 Sodium Potassium 3.4 L Chloride 107.5 H Carbon Dioxide 21 L BUN Creatinine Glucose 165 H POC Glucose 147 H Calcium 8.0 L Phosphorus Magnesium 2.40 H AST ALT Alkaline Phosphatase Lactate Dehydrogenase C-Reactive Protein Total Protein Albumin Urine WBC (Auto) Miscellaneous Test 04/15/18 04/15/18 04/16/18 11:17 17:35 00:26 WBC RBC Hgb Hct MCV MCHC RDW Plt Count Lymph % (Auto) [place] % (Auto) Lymph # [place] # Baso # Seg Neutrophils % Seg Neuts % (Manual) Lymphocytes % (Manual) Monocytes % (Manual) Nucleated RBC % Seg Neutrophils # Seg Neutrophils # Man Lymphocytes # (Manual) Monocytes # (Manual) PT INR POC ABG pH POC ABG pCO2 POC ABG pO2 Sodium Potassium Chloride Carbon Dioxide BUN Creatinine Glucose POC Glucose 119 H 169 H 176 H Calcium Phosphorus Magnesium AST ALT Alkaline Phosphatase Lactate Dehydrogenase C-Reactive Protein Total Protein Albumin Urine WBC (Auto) Miscellaneous Test 04/16/18 04/16/18 04/16/18 06:12 06:19 06:21 WBC 20.7 H RBC 3.25 L Hgb 9.0 L Hct MCV MCHC 29 L RDW 16.7 H Plt Count 498 H Lymph % (Auto) [place] % (Auto) Lymph # [place] # Baso # Seg Neutrophils % Seg Neuts % (Manual) 88.0 H Lymphocytes % (Manual) 5.0 L Monocytes % (Manual) Nucleated RBC % Seg Neutrophils # Seg Neutrophils # Man 18.2 H Lymphocytes # (Manual) 1.0 L Monocytes # (Manual) PT INR POC ABG pH POC ABG pCO2 POC ABG pO2 Sodium Potassium Chloride Carbon Dioxide BUN Creatinine Glucose POC Glucose > 500 H 493 H Calcium Phosphorus Magnesium AST ALT Alkaline Phosphatase Lactate Dehydrogenase C-Reactive Protein Total Protein Albumin Urine WBC (Auto) Miscellaneous Test 04/16/18 04/16/18 04/16/18 06:24 08:52 14:05 WBC RBC Hgb Hct MCV MCHC RDW Plt Count Lymph % (Auto) [place] % (Auto) Lymph # [place] # Baso # Seg Neutrophils % Seg Neuts % (Manual) Lymphocytes % (Manual) Monocytes % (Manual) Nucleated RBC % Seg Neutrophils # Seg Neutrophils # Man Lymphocytes # (Manual) Monocytes # (Manual) PT INR POC ABG pH POC ABG pCO2 POC ABG pO2 Sodium Potassium 3.4 L Chloride Carbon Dioxide BUN Creatinine 0.5 L Glucose 166 H POC Glucose 173 H 196 H Calcium 8.2 L Phosphorus Magnesium AST ALT Alkaline Phosphatase Lactate Dehydrogenase C-Reactive Protein Total Protein Albumin Urine WBC (Auto) Miscellaneous Test 04/16/18 04/17/18 04/17/18 17:17 00:06 04:50 WBC 16.0 H RBC 3.12 L Hgb 8.7 L Hct 29.0 L MCV MCHC RDW 16.2 H Plt Count 455 H Lymph % (Auto) 9.4 L [place] % (Auto) 7.7 H Lymph # [place] # 1.2 H Baso # Seg Neutrophils % 81.9 H Seg Neuts % (Manual) Lymphocytes % (Manual) Monocytes % (Manual) Nucleated RBC % Seg Neutrophils # 13.1 H Seg Neutrophils # Man Lymphocytes # (Manual) Monocytes # (Manual) PT INR POC ABG pH POC ABG pCO2 POC ABG pO2 Sodium Potassium Chloride Carbon Dioxide BUN Creatinine Glucose POC Glucose 189 H 190 H Calcium Phosphorus Magnesium AST ALT Alkaline Phosphatase Lactate Dehydrogenase C-Reactive Protein Total Protein Albumin Urine WBC (Auto) Miscellaneous Test 04/17/18 04/17/18 04/17/18 04:50 05:38 07:17 WBC RBC Hgb Hct MCV MCHC RDW Plt Count Lymph % (Auto) [place] % (Auto) Lymph # [place] # Baso # Seg Neutrophils % Seg Neuts % (Manual) Lymphocytes % (Manual) Monocytes % (Manual) Nucleated RBC % Seg Neutrophils # Seg Neutrophils # Man Lymphocytes # (Manual) Monocytes # (Manual) PT INR POC ABG pH POC ABG pCO2 POC ABG pO2 Sodium 136 L Potassium 3.4 L Chloride 96.9 L Carbon Dioxide BUN Creatinine 0.6 L Glucose 167 H POC Glucose 190 H Calcium 7.6 L 8.0 L Phosphorus Magnesium AST ALT Alkaline Phosphatase Lactate Dehydrogenase C-Reactive Protein Total Protein Albumin Urine WBC (Auto) Miscellaneous Test 04/17/18 04/17/18 04/17/18 11:50 18:37 23:53 WBC RBC Hgb Hct MCV MCHC RDW Plt Count Lymph % (Auto) [place] % (Auto) Lymph # [place] # Baso # Seg Neutrophils % Seg Neuts % (Manual) Lymphocytes % (Manual) Monocytes % (Manual) Nucleated RBC % Seg Neutrophils # Seg Neutrophils # Man Lymphocytes # (Manual) Monocytes # (Manual) PT INR POC ABG pH POC ABG pCO2 POC ABG pO2 Sodium Potassium Chloride Carbon Dioxide BUN Creatinine Glucose POC Glucose 163 H 167 H 142 H Calcium Phosphorus Magnesium AST ALT Alkaline Phosphatase Lactate Dehydrogenase C-Reactive Protein Total Protein Albumin Urine WBC (Auto) Miscellaneous Test 04/18/18 04/18/18 04/18/18 05:59 10:05 12:25 WBC RBC Hgb Hct MCV MCHC RDW Plt Count Lymph % (Auto) [place] % (Auto) Lymph # [place] # Baso # Seg Neutrophils % Seg Neuts % (Manual) Lymphocytes % (Manual) Monocytes % (Manual) Nucleated RBC % Seg Neutrophils # Seg Neutrophils # Man Lymphocytes # (Manual) Monocytes # (Manual) PT INR POC ABG pH POC ABG pCO2 POC ABG pO2 Sodium Potassium Chloride Carbon Dioxide BUN Creatinine 0.5 L Glucose 127 H POC Glucose 144 H 171 H Calcium 8.2 L Phosphorus Magnesium AST ALT Alkaline Phosphatase Lactate Dehydrogenase C-Reactive Protein Total Protein Albumin Urine WBC (Auto) Miscellaneous Test 04/18/18 04/18/18 04/19/18 14:54 17:56 00:15 WBC 18.2 H RBC 2.95 L Hgb 8.9 L Hct 29.0 L MCV 98 H MCHC RDW 16.9 H Plt Count Lymph % (Auto) 9.2 L [place] % (Auto) Lymph # [place] # 1.2 H Baso # Seg Neutrophils % 82.7 H Seg Neuts % (Manual) Lymphocytes % (Manual) Monocytes % (Manual) Nucleated RBC % Seg Neutrophils # 15.1 H Seg Neutrophils # Man Lymphocytes # (Manual) Monocytes # (Manual) PT INR POC ABG pH POC ABG pCO2 POC ABG pO2 Sodium Potassium Chloride Carbon Dioxide BUN Creatinine Glucose POC Glucose 169 H 148 H Calcium Phosphorus Magnesium AST ALT Alkaline Phosphatase Lactate Dehydrogenase C-Reactive Protein Total Protein Albumin Urine WBC (Auto) Miscellaneous Test 04/19/18 04/19/18 04/19/18 05:21 08:00 08:00 WBC 18.7 H RBC Hgb Hct MCV MCHC RDW Plt Count 531 H Lymph % (Auto) [place] % (Auto) Lymph # [place] # Baso # Seg Neutrophils % Seg Neuts % (Manual) Lymphocytes % (Manual) Monocytes % (Manual) Nucleated RBC % Seg Neutrophils # Seg Neutrophils # Man Lymphocytes # (Manual) Monocytes # (Manual) PT INR POC ABG pH POC ABG pCO2 POC ABG pO2 Sodium Potassium Chloride Carbon Dioxide BUN 18 H Creatinine 0.5 L Glucose 141 H POC Glucose 146 H Calcium Phosphorus Magnesium AST ALT 76 H Alkaline Phosphatase 142 H Lactate Dehydrogenase C-Reactive Protein Total Protein Albumin 2.4 L Urine WBC (Auto) Miscellaneous Test 04/19/18 04/19/18 04/20/18 12:12 17:41 00:21 WBC RBC Hgb Hct MCV MCHC RDW Plt Count Lymph % (Auto) [place] % (Auto) Lymph # [place] # Baso # Seg Neutrophils % Seg Neuts % (Manual) Lymphocytes % (Manual) Monocytes % (Manual) Nucleated RBC % Seg Neutrophils # Seg Neutrophils # Man Lymphocytes # (Manual) Monocytes # (Manual) PT INR POC ABG pH POC ABG pCO2 POC ABG pO2 Sodium Potassium Chloride Carbon Dioxide BUN Creatinine Glucose POC Glucose 161 H 134 H 159 H Calcium Phosphorus Magnesium AST ALT Alkaline Phosphatase Lactate Dehydrogenase C-Reactive Protein Total Protein Albumin Urine WBC (Auto) Miscellaneous Test 04/20/18 04/20/18 04/20/18 04:00 04:00 07:05 WBC 16.5 H RBC 3.51 L Hgb 9.9 L Hct 30.1 L MCV MCHC RDW Plt Count 530 H Lymph % (Auto) 10.7 L [place] % (Auto) 9.2 H Lymph # [place] # 1.5 H Baso # Seg Neutrophils % 78.5 H Seg Neuts % (Manual) Lymphocytes % (Manual) Monocytes % (Manual) Nucleated RBC % Seg Neutrophils # 13.0 H Seg Neutrophils # Man Lymphocytes # (Manual) Monocytes # (Manual) PT INR POC ABG pH POC ABG pCO2 POC ABG pO2 Sodium Potassium Chloride Carbon Dioxide BUN 19 H Creatinine 0.6 L Glucose 185 H POC Glucose 166 H Calcium Phosphorus Magnesium AST ALT Alkaline Phosphatase Lactate Dehydrogenase C-Reactive Protein Total Protein Albumin Urine WBC (Auto) Miscellaneous Test 04/20/18 04/20/18 04/21/18 12:59 19:06 00:17 WBC RBC Hgb Hct MCV MCHC RDW Plt Count Lymph % (Auto) [place] % (Auto) Lymph # [place] # Baso # Seg Neutrophils % Seg Neuts % (Manual) Lymphocytes % (Manual) Monocytes % (Manual) Nucleated RBC % Seg Neutrophils # Seg Neutrophils # Man Lymphocytes # (Manual) Monocytes # (Manual) PT INR POC ABG pH POC ABG pCO2 POC ABG pO2 Sodium Potassium Chloride Carbon Dioxide BUN Creatinine Glucose POC Glucose 166 H 170 H 178 H Calcium Phosphorus Magnesium AST ALT Alkaline Phosphatase Lactate Dehydrogenase C-Reactive Protein Total Protein Albumin Urine WBC (Auto) Miscellaneous Test 04/21/18 04/21/18 04/21/18 06:15 06:15 06:39 WBC 15.1 H RBC 3.48 L Hgb 9.8 L Hct 30.2 L MCV MCHC RDW Plt Count 499 H Lymph % (Auto) [place] % (Auto) 8.7 H Lymph # [place] # 1.3 H Baso # 0.2 H Seg Neutrophils % 74.7 H Seg Neuts % (Manual) Lymphocytes % (Manual) Monocytes % (Manual) Nucleated RBC % Seg Neutrophils # 11.3 H Seg Neutrophils # Man Lymphocytes # (Manual) Monocytes # (Manual) PT INR POC ABG pH POC ABG pCO2 POC ABG pO2 Sodium Potassium Chloride 108.8 H Carbon Dioxide BUN 18 H Creatinine 0.6 L Glucose 157 H POC Glucose 153 H Calcium 8.0 L Phosphorus Magnesium AST ALT Alkaline Phosphatase Lactate Dehydrogenase C-Reactive Protein Total Protein Albumin Urine WBC (Auto) Miscellaneous Test 04/21/18 04/21/18 04/21/18 11:49 17:07 22:07 WBC RBC Hgb Hct MCV MCHC RDW Plt Count Lymph % (Auto) [place] % (Auto) Lymph # [place] # Baso # Seg Neutrophils % Seg Neuts % (Manual) Lymphocytes % (Manual) Monocytes % (Manual) Nucleated RBC % Seg Neutrophils # Seg Neutrophils # Man Lymphocytes # (Manual) Monocytes # (Manual) PT INR POC ABG pH POC ABG pCO2 POC ABG pO2 Sodium Potassium Chloride Carbon Dioxide BUN Creatinine Glucose POC Glucose 184 H 163 H 169 H Calcium Phosphorus Magnesium AST ALT Alkaline Phosphatase Lactate Dehydrogenase C-Reactive Protein Total Protein Albumin Urine WBC (Auto) Miscellaneous Test 04/22/18 04/22/18 04/22/18 07:00 07:00 08:52 WBC 14.0 H RBC 3.26 L Hgb 9.3 L Hct 28.6 L MCV MCHC RDW Plt Count 460 H Lymph % (Auto) 13.0 L [place] % (Auto) 10.1 H Lymph # [place] # 1.4 H Baso # Seg Neutrophils % 74.4 H Seg Neuts % (Manual) Lymphocytes % (Manual) Monocytes % (Manual) Nucleated RBC % Seg Neutrophils # 10.4 H Seg Neutrophils # Man Lymphocytes # (Manual) Monocytes # (Manual) PT INR POC ABG pH POC ABG pCO2 POC ABG pO2 Sodium Potassium Chloride Carbon Dioxide BUN 19 H Creatinine 0.6 L Glucose 159 H POC Glucose 156 H Calcium Phosphorus Magnesium AST ALT Alkaline Phosphatase Lactate Dehydrogenase C-Reactive Protein Total Protein Albumin Urine WBC (Auto) Miscellaneous Test 04/22/18 04/22/18 04/22/18 12:34 16:20 21:42 WBC RBC Hgb Hct MCV MCHC RDW Plt Count Lymph % (Auto) [place] % (Auto) Lymph # [place] # Baso # Seg Neutrophils % Seg Neuts % (Manual) Lymphocytes % (Manual) Monocytes % (Manual) Nucleated RBC % Seg Neutrophils # Seg Neutrophils # Man Lymphocytes # (Manual) Monocytes # (Manual) PT INR POC ABG pH POC ABG pCO2 POC ABG pO2 Sodium Potassium Chloride Carbon Dioxide BUN Creatinine Glucose POC Glucose 150 H 148 H 134 H Calcium Phosphorus Magnesium AST ALT Alkaline Phosphatase Lactate Dehydrogenase C-Reactive Protein Total Protein Albumin Urine WBC (Auto) Miscellaneous Test 04/23/18 04/23/18 04/23/18 05:45 05:45 08:45 WBC 12.5 H RBC 3.41 L Hgb 9.6 L Hct 29.6 L MCV MCHC RDW Plt Count 441 H Lymph % (Auto) [place] % (Auto) 11.3 H Lymph # [place] # 1.4 H Baso # Seg Neutrophils % 70.2 H Seg Neuts % (Manual) Lymphocytes % (Manual) Monocytes % (Manual) Nucleated RBC % Seg Neutrophils # 9.0 H Seg Neutrophils # Man Lymphocytes # (Manual) Monocytes # (Manual) PT INR POC ABG pH POC ABG pCO2 POC ABG pO2 Sodium Potassium Chloride Carbon Dioxide BUN 19 H Creatinine 0.6 L Glucose 119 H POC Glucose 154 H Calcium Phosphorus Magnesium 2.40 H AST ALT Alkaline Phosphatase Lactate Dehydrogenase C-Reactive Protein Total Protein Albumin Urine WBC (Auto) Miscellaneous Test 04/23/18 04/23/18 04/24/18 11:45 22:09 07:26 WBC RBC Hgb Hct MCV MCHC RDW Plt Count Lymph % (Auto) [place] % (Auto) Lymph # [place] # Baso # Seg Neutrophils % Seg Neuts % (Manual) Lymphocytes % (Manual) Monocytes % (Manual) Nucleated RBC % Seg Neutrophils # Seg Neutrophils # Man Lymphocytes # (Manual) Monocytes # (Manual) PT INR POC ABG pH POC ABG pCO2 POC ABG pO2 Sodium Potassium Chloride Carbon Dioxide BUN Creatinine Glucose POC Glucose 132 H 113 H 164 H Calcium Phosphorus Magnesium AST ALT Alkaline Phosphatase Lactate Dehydrogenase C-Reactive Protein Total Protein Albumin Urine WBC (Auto) Miscellaneous Test 04/24/18 04/24/18 04/24/18 08:30 08:30 11:27 WBC 14.4 H RBC 3.30 L Hgb 9.6 L Hct 28.4 L MCV MCHC RDW Plt Count Lymph % (Auto) 12.8 L [place] % (Auto) 9.1 H Lymph # [place] # 1.3 H Baso # 0.2 H Seg Neutrophils % 76.4 H Seg Neuts % (Manual) Lymphocytes % (Manual) Monocytes % (Manual) Nucleated RBC % Seg Neutrophils # 11.0 H Seg Neutrophils # Man Lymphocytes # (Manual) Monocytes # (Manual) PT INR POC ABG pH POC ABG pCO2 POC ABG pO2 Sodium Potassium Chloride Carbon Dioxide BUN 18 H Creatinine Glucose 155 H POC Glucose 133 H Calcium Phosphorus Magnesium AST ALT Alkaline Phosphatase Lactate Dehydrogenase C-Reactive Protein Total Protein Albumin Urine WBC (Auto) Miscellaneous Test 04/24/18 04/24/18 04/25/18 16:32 22:17 06:16 WBC RBC Hgb Hct MCV MCHC RDW Plt Count Lymph % (Auto) [place] % (Auto) Lymph # [place] # Baso # Seg Neutrophils % Seg Neuts % (Manual) Lymphocytes % (Manual) Monocytes % (Manual) Nucleated RBC % Seg Neutrophils # Seg Neutrophils # Man Lymphocytes # (Manual) Monocytes # (Manual) PT INR POC ABG pH POC ABG pCO2 POC ABG pO2 Sodium Potassium Chloride Carbon Dioxide BUN Creatinine Glucose POC Glucose 132 H 124 H 133 H Calcium Phosphorus Magnesium AST ALT Alkaline Phosphatase Lactate Dehydrogenase C-Reactive Protein Total Protein Albumin Urine WBC (Auto) Miscellaneous Test 04/25/18 04/25/18 04/25/18 07:39 11:10 11:31 WBC 11.3 H RBC 3.41 L Hgb 9.8 L Hct 29.5 L MCV MCHC RDW Plt Count Lymph % (Auto) 12.3 L [place] % (Auto) 9.0 H Lymph # [place] # 1.0 H Baso # Seg Neutrophils % 77.3 H Seg Neuts % (Manual) Lymphocytes % (Manual) Monocytes % (Manual) Nucleated RBC % Seg Neutrophils # 8.7 H Seg Neutrophils # Man Lymphocytes # (Manual) Monocytes # (Manual) PT INR POC ABG pH POC ABG pCO2 POC ABG pO2 Sodium Potassium Chloride Carbon Dioxide BUN Creatinine Glucose POC Glucose 141 H 145 H Calcium Phosphorus Magnesium AST ALT Alkaline Phosphatase Lactate Dehydrogenase C-Reactive Protein Total Protein Albumin Urine WBC (Auto) Miscellaneous Test 04/25/18 04/25/18 04/26/18 11:31 16:14 00:45 WBC RBC Hgb Hct MCV MCHC RDW Plt Count Lymph % (Auto) [place] % (Auto) Lymph # [place] # Baso # Seg Neutrophils % Seg Neuts % (Manual) Lymphocytes % (Manual) Monocytes % (Manual) Nucleated RBC % Seg Neutrophils # Seg Neutrophils # Man Lymphocytes # (Manual) Monocytes # (Manual) PT INR POC ABG pH POC ABG pCO2 POC ABG pO2 Sodium Potassium Chloride Carbon Dioxide BUN Creatinine Glucose 153 H POC Glucose 163 H 141 H Calcium Phosphorus Magnesium AST ALT Alkaline Phosphatase Lactate Dehydrogenase C-Reactive Protein Total Protein Albumin Urine WBC (Auto) Miscellaneous Test 04/26/18 04/26/18 04/26/18 06:10 06:10 06:37 WBC 14.5 H RBC 3.60 L Hgb Hct MCV MCHC RDW Plt Count Lymph % (Auto) [place] % (Auto) 9.6 H Lymph # [place] # 1.4 H Baso # 0.2 H Seg Neutrophils % 75.0 H Seg Neuts % (Manual) Lymphocytes % (Manual) Monocytes % (Manual) Nucleated RBC % Seg Neutrophils # 10.9 H Seg Neutrophils # Man Lymphocytes # (Manual) Monocytes # (Manual) PT INR POC ABG pH POC ABG pCO2 POC ABG pO2 Sodium Potassium Chloride Carbon Dioxide BUN Creatinine Glucose 138 H POC Glucose 131 H Calcium Phosphorus Magnesium AST ALT Alkaline Phosphatase Lactate Dehydrogenase C-Reactive Protein Total Protein Albumin Urine WBC (Auto) Miscellaneous Test 04/26/18 04/26/18 04/26/18 11:34 16:10 16:39 WBC RBC Hgb Hct MCV MCHC RDW Plt Count Lymph % (Auto) [place] % (Auto) Lymph # [place] # Baso # Seg Neutrophils % Seg Neuts % (Manual) Lymphocytes % (Manual) Monocytes % (Manual) Nucleated RBC % Seg Neutrophils # Seg Neutrophils # Man Lymphocytes # (Manual) Monocytes # (Manual) PT 17.2 H INR 1.33 H POC ABG pH POC ABG pCO2 POC ABG pO2 Sodium Potassium Chloride Carbon Dioxide BUN Creatinine Glucose POC Glucose 129 H Calcium Phosphorus Magnesium AST ALT Alkaline Phosphatase Lactate Dehydrogenase 266 H C-Reactive Protein Total Protein Albumin Urine WBC (Auto) Miscellaneous Test 04/26/18 04/26/18 04/27/18 16:59 22:39 05:50 WBC RBC Hgb Hct MCV MCHC RDW Plt Count Lymph % (Auto) [place] % (Auto) Lymph # [place] # Baso # Seg Neutrophils % Seg Neuts % (Manual) Lymphocytes % (Manual) Monocytes % (Manual) Nucleated RBC % Seg Neutrophils # Seg Neutrophils # Man Lymphocytes # (Manual) Monocytes # (Manual) PT INR POC ABG pH POC ABG pCO2 POC ABG pO2 Sodium Potassium Chloride 97.4 L Carbon Dioxide BUN Creatinine 0.6 L Glucose 135 H POC Glucose 145 H 187 H Calcium 8.2 L Phosphorus Magnesium AST 97 H ALT 222 H Alkaline Phosphatase 191 H Lactate Dehydrogenase C-Reactive Protein Total Protein Albumin 2.5 L Urine WBC (Auto) Miscellaneous Test 04/27/18 11:52 WBC RBC Hgb Hct MCV MCHC RDW Plt Count Lymph % (Auto) [place] % (Auto) Lymph # [place] # Baso # Seg Neutrophils % Seg Neuts % (Manual) Lymphocytes % (Manual) Monocytes % (Manual) Nucleated RBC % Seg Neutrophils # Seg Neutrophils # Man Lymphocytes # (Manual) Monocytes # (Manual) PT INR POC ABG pH POC ABG pCO2 POC ABG pO2 Sodium Potassium Chloride Carbon Dioxide BUN Creatinine Glucose POC Glucose 162 H Calcium Phosphorus Magnesium AST ALT Alkaline Phosphatase Lactate Dehydrogenase C-Reactive Protein Total Protein Albumin Urine WBC (Auto) Miscellaneous Test Allied health notes reviewed: nursing
--- NOTE | 2018-04-27 14:55 | XRay Report ---
AP CHEST: HISTORY: Left pleural collection, recent left thoracentesis Recent ultrasound-guided left thoracentesis was performed. There is essentially no change in the left pleural collection. Please refer to the ultrasound thoracentesis report. There is no evidence for pneumothorax. The lungs are generally clear otherwise. Mild cardiomegaly is stable. IMPRESSION: No evidence for pneumothorax.
--- NOTE | 2018-04-27 18:55 | Progress Note ---
Assessment and Plan Assessment: 1) Sepsis: new fever. Etiology most likely perf / intra-abdominal collection? vs complicated pneumonia 2) Gastric perf and intra-abdominal fluid collection -S/P OR for ex lap, abdominal washout, repair of gastric perforation and placement of drains on 04/08/18 -04/07 peritoneal fluid + Serratia x 2 -Repeat CTA 04/09 showed no PE however increase in left pleural effusion with dense consolidation consistent with atelectasis and a large fluid collection 14 x 4.7 cm in the left lobe of the fever with air bubbles. -CRP=52 --> 45 -procal=0.3 -Repeat CT showed large left pleural effusion, smaller left hep lobe collection and large splenic collection 4.2x6.1 cm -S/P further drain placement 04/16 cx +MSSA and Leuconostoc. 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 Katerin Cross MD Infectious Diseases Specialist [facility] ([facility] M [phone] O [phone] Subjective Date of service: 04/27/18 Principal diagnosis: Sepsis Syndrome; Acute Hypoxemic Resp Failure; Acute Encephalopathy Interval history: Fever trending down, feels better, still SOB Microbiology: Blood cultures: 04/07 neg 04/10 neg 04/24 ngtd Peritoneal cultures: 04/07 Serratia x 2 04/10 ngtd 04/16 MSSA and Strep sp Current Antimicrobials: zosyn 04/26 zyvox 04/26 Previous Antimicrobials: Fluconazole Zosyn 04/08-04/14 vanco 04/10-04/19 cefepime and flagyl 04/14-04/24 Objective - Exam Narrative Exam: General appearance: Alert in mild shortness of breath NC O2 Eyes: anicteric sclerae, moist conjunctivae; no lid-lag; PERRLA HENT: Atraumatic; oropharynx NGT Neck: Trachea midline; supple, no thyromegaly or lymphadenopathy Lungs: CTA CV: RRR Abdomen: Obese, Soft, midline surgical wound covered with dressings drain in place KRISTI R minimal purulent output KRISTI L minimal serosang output, new drain Extremities: No peripheral edema or extremity lymphadenopathy Skin: Normal temperature, turgor and texture; no rash, ulcers or subcutaneous nodules Psych: Appropriate affect, alert and oriented to person, place and time. Neuro: alert and oriented x 3. Moving all extermities Lines: right PICC, staton - Constitutional Vitals: Vital Signs Temp Pulse Resp BP Pulse Ox 99.2 F 113 H 18 118/62 95 04/27/18 16:22 04/27/18 16:22 04/27/18 16:22 04/27/18 17:25 04/27/18 16:22 Temperature -Last 24 Hours Temperature 99.2 F Temperature 98.3 F Temperature 98.7 F Temperature 99.6 F Temperature 99.8 F Temperature 100.8 F - Labs CBC & Chem 7: 04/26/18 06:10 04/27/18 05:50 Labs: Abnormal lab results 04/26/18 04/27/18 04/27/18 Range/Units 22:39 05:50 11:52 Chloride 97.4 L (98-107) mmol/L Creatinine 0.6 L (0.7-1.2) mg/dL Glucose 135 H (65-100) mg/dL POC Glucose 187 H 162 H (70-105) Calcium 8.2 L (8.4-10.2) mg/dL AST 97 H (5-40) units/L ALT 222 H (7-56) units/L Alkaline Phosphatase 191 H (35-129) units/L Albumin 2.5 L (3.9-5) g/dL 04/27/18 Range/Units 16:35 Chloride (98-107) mmol/L Creatinine (0.7-1.2) mg/dL Glucose (65-100) mg/dL POC Glucose 136 H (70-105) Calcium (8.4-10.2) mg/dL AST (5-40) units/L ALT (7-56) units/L Alkaline Phosphatase (35-129) units/L Albumin (3.9-5) g/dL
[2018-04-27] MEDS ORDERED: TPN ADULT 1,800 ML IV SCH (20:00)
[2018-04-27] MEDS ORDERED: TPN ADULT 3,000 ML IV SCH (20:00)
[2018-04-27] MEDS: TYLENOL PR PRN (21:41)
[2018-04-27] MEDS: LOVENOX SUB-Q SCH (21:42)
[2018-04-28] MEDS: NORMODYNE IV SCH ×8 (00:12→22:07)
[2018-04-28] MEDS: DILAUDID IV PRN ×7 (01:13→22:06)
[2018-04-28] MEDS: ATIVAN IV PRN ×2 (01:14→08:50)
[2018-04-28] MEDS: ZOSYN/NS 4.5GM/100ML 4.5 GM/100 ML VIAL IV SCH ×3 (03:06→18:16)
[2018-04-28] MEDS: PULMICORT IH SCH ×2 (08:49→19:45)
[2018-04-28] MEDS: BROVANA NEBU IH SCH ×2 (08:49→19:45)
[2018-04-28] MEDS: PROTONIX IV SCH ×3 (08:51→22:05)
[2018-04-28] MEDS: SODIUM CHLORIDE FLUSH SYRINGE 10 ML IV SCH ×2 (08:55→09:04)
[2018-04-28 09:34] LABS: BUN/Creatinine Ratio 26; Blood Urea Nitrogen 13 mg/dL (7-17); Hemolysis Index 3
[2018-04-28] MEDS: ZYVOX 600MG/300ML 600 MG/300 ML BAG IV SCH ×2 (10:15→22:05)
--- NOTE | 2018-04-28 10:49 | Progress Note ---
Assessment and Plan Assessment: 1) Sepsis: new fever. Etiology most likely perf / intra-abdominal collection? vs complicated pneumonia 2) Gastric perf and intra-abdominal fluid collection -S/P OR for ex lap, abdominal washout, repair of gastric perforation and placement of drains on 04/08/18 -04/07 peritoneal fluid + Serratia x 2 -Repeat CTA 04/09 showed no PE however increase in left pleural effusion with dense consolidation consistent with atelectasis and a large fluid collection 14 x 4.7 cm in the left lobe of the fever with air bubbles. -CRP=52 --> 45 -procal=0.3 -Repeat CT showed large left pleural effusion, smaller left hep lobe collection and large splenic collection 4.2x6.1 cm -S/P further drain placement 04/16 cx +MSSA and Leuconostoc. S/p vanco IV x 10 days until 04/19 -s/p cefepime and flagyl D10/10 (s/p zosyn 7 days) - total 17 days of abx -Repeat CT showed still left liver lobe fluid collection 10x1.3cm with gas, loculated left pleural effusion with consolidation and 3) S/P lap sleeve gastrectomy with hiatal hernia repair and partial fundoplication 03/30/18 4) Presumed pnemonia with loculated left pleural effusion -S/P thoracentesis...minimal complex thick pleural effusion, only 0.5 cc drained s/p Drainage catheter evaluation through indwelling drain, drainage catheter exchange by IR 04/26/18 Plan: -f/u pleural fluid -continue zosyn and zyvox - D3/10 -monitor fever and leukocytosis Thank you for your consultation, will follow up with you. Katerin Cross MD Infectious Diseases Specialist [facility] ([facility] M [phone] O [phone] Subjective Date of service: 04/28/18 Principal diagnosis: Sepsis Syndrome; Acute Hypoxemic Resp Failure; Acute Encephalopathy Interval history: tmax 100.5, feels better Microbiology: Blood cultures: 04/07 neg 04/10 neg 04/24 ngtd Peritoneal cultures: 04/07 Serratia x 2 04/10 ngtd 04/16 MSSA and Strep sp Current Antimicrobials: zosyn 04/26 zyvox 04/26 Previous Antimicrobials: Fluconazole Zosyn 04/08-04/14 vanco 04/10-04/19 cefepime and flagyl 04/14-04/24 Objective - Exam Narrative Exam: General appearance: Alert in mild shortness of breath NC O2 Eyes: anicteric sclerae, moist conjunctivae; no lid-lag; PERRLA HENT: Atraumatic; oropharynx NGT Neck: Trachea midline; supple, no thyromegaly or lymphadenopathy Lungs: CTA CV: RRR Abdomen: Obese, Soft, midline surgical wound covered with dressings drain in place KRISTI R minimal purulent output KRISTI L minimal serosang output, new drain Extremities: No peripheral edema or extremity lymphadenopathy Skin: Normal temperature, turgor and texture; no rash, ulcers or subcutaneous nodules Psych: Appropriate affect, alert and oriented to person, place and time. Neuro: alert and oriented x 3. Moving all extermities Lines: right PICC, staton - Constitutional Vitals: Vital Signs Temp Pulse Resp BP Pulse Ox 99.5 F 99 H 18 125/76 97 04/28/18 05:45 04/28/18 05:45 04/28/18 05:53 04/28/18 05:45 04/28/18 05:45 Temperature -Last 24 Hours Temperature 99.5 F Temperature 98.8 F Temperature 99.2 F Temperature 100.5 F Temperature 99.2 F Temperature 98.3 F - Labs CBC & Chem 7: 04/26/18 06:10 04/28/18 09:15 Labs: Abnormal lab results 04/27/18 04/27/18 04/27/18 Range/Units 11:52 16:35 22:23 Creatinine (0.7-1.2) mg/dL Glucose (65-100) mg/dL POC Glucose 162 H 136 H 188 H (70-105) Calcium (8.4-10.2) mg/dL 04/28/18 Range/Units 09:15 Creatinine 0.5 L (0.7-1.2) mg/dL Glucose 149 H (65-100) mg/dL POC Glucose (70-105) Calcium 8.0 L (8.4-10.2) mg/dL
--- NOTE | 2018-04-28 15:29 | Progress Note ---
Subjective Patient Reports: Positive: feels better, flatus Narrative: doing OK . abd soft . no nausea , no vomiting will cont same on TPN , Objective Vital Signs - 12hr 04/28/18 04/28/18 04/28/18 04:47 05:45 05:53 Temperature 98.8 F 99.5 F Pulse Rate 112 H 99 H Respiratory 18 Rate Blood Pressure 125/76 Blood Pressure 152/80 [Left] O2 Sat by Pulse 95 97 Oximetry 04/28/18 04/28/18 04/28/18 07:51 07:52 12:03 Temperature 98.4 F Pulse Rate 105 H 105 H 108 H Respiratory 18 Rate Blood Pressure 138/67 Blood Pressure [Left] O2 Sat by Pulse 98 98 95 Oximetry 04/28/18 13:00 Temperature 99.1 F Pulse Rate 109 H Respiratory 18 Rate Blood Pressure Blood Pressure 145/79 [Left] O2 Sat by Pulse Oximetry - Labs 04/26/18 06:10 04/28/18 09:15 Diabetes panel 04/28/18 Range/Units 09:15 Sodium 139 (137-145) mmol/L Potassium 3.8 (3.6-5.0) mmol/L Chloride 100.4 (98-107) mmol/L Carbon Dioxide 25 (22-30) mmol/L BUN 13 (7-17) mg/dL Creatinine 0.5 L (0.7-1.2) mg/dL Glucose 149 H (65-100) mg/dL Calcium 8.0 L (8.4-10.2) mg/dL Calcium panel 04/28/18 Range/Units 09:15 Calcium 8.0 L (8.4-10.2) mg/dL Phosphorus 3.20 (2.5-4.5) mg/dL Pituitary panel 04/28/18 Range/Units 09:15 Sodium 139 (137-145) mmol/L Potassium 3.8 (3.6-5.0) mmol/L Chloride 100.4 (98-107) mmol/L Carbon Dioxide 25 (22-30) mmol/L BUN 13 (7-17) mg/dL Creatinine 0.5 L (0.7-1.2) mg/dL Glucose 149 H (65-100) mg/dL Calcium 8.0 L (8.4-10.2) mg/dL Adrenal panel 08/01/18 Range/Units 09:15 Sodium 139 (137-145) mmol/L Potassium 3.8 (3.6-5.0) mmol/L Chloride 100.4 (98-107) mmol/L Carbon Dioxide 25 (22-30) mmol/L BUN 13 (7-17) mg/dL Creatinine 0.5 L (0.7-1.2) mg/dL Glucose 149 H (65-100) mg/dL Calcium 8.0 L (8.4-10.2) mg/dL
--- NOTE | 2018-04-28 18:07 | Progress Note ---
Assessment and Plan Assessment and plan: Hospitalist Consulted for Medical management of hypertension on 04/17/18, Patient admitted on 04/07/[address] Wynn Ms. Machado is a 58 y.o. woman with a history of obesity s/p lap sleeve gastrectomy with hiatal hernia repair and partial fundoplication 03/30/18, presents to ER with abdominal pains on 04/07/18. She was found to have perforation DATE OF PROCEDURE 04/07/18 PREOPERATIVE DIAGNOSES: Pneumoperitoneum POSTOPERATIVE DIAGNOSES: 1. Gastric perforation SURGEON: Dr. Estes L[employer]PUTER SCIENCE: Dony Perez DO, CST PROCEDURE: 1. Diagnostic laparoscopy 2. Repair of gastric perforation 3. Abdominal washout 4. intraoperative EGD Date of procedure: 04/27/18 Pre-op diagnosis: left pleural effusion Post-op diagnosis: other (complex, thick left pleural collection. Empyema? Thombus?) Anesthesia: local Surgeon: JIMMY INFANTE Estimated blood loss: none Pathology: list (only 0.5cc could be aspirated) Specimen disposition: to lab Condition: stable Disposition: floor /Hypertension. Monitor BP On Clonidine patch and iv prn Labetalol, Also Hydraazine iv prn. /Sepsis due to intraabdominal infection and PNA. - treated with cefepime and flagyl along with zosyn - total 17 days of abx - S/p vanco IV x 10 days until 04/19 for MSSA - monitored fever and leukocytosis off abx - ID Physician managing, restarted abx today again as cont to spike fever /Gastric perforation s/p exploratory lap, repair of perforation on 04/07/18. Surg is attending, managing, on TPN /Pneumoperitoneum due to gastric perforation, s/p repair of perforation on 04/07/18- per surgery /Acute respiratory failure with Pleural Effusion s/p thoracentesis 04/26/18 On supplemental Oxygen by ID Pulmonology is managing /Bilateral pneumonia vs atelectasis completed abx /Hypokalemia, resolved /Obstructive seep apnea, CPAP at bedtime Full code status Disposition: SNF when cleared by surgery, ID and pulmonology History Interval history: Patient was seen and examined. Follow-up on current diagnosis of hypertension. Overnight uneventful. Patient denies any chest pain, shortness breath, nausea/ vomiting or severe headaches. Imaging, nursing note, chart, labs and old chart reviewed. Discussed with patient. Hospitalist Physical - Physical exam Narrative exam: GEN: WDWN, bmi 34, NAD, Awake, Alert, Orientated HEENT: NCAT, EOMI, PERRL, OP Clear NECK: supple, no adenopathy, no thyromegaly, no JVD CVS/HEART: RRR, normal S1S2, pulses present bilaterally CHEST/LUNGS: diminished bs bilateral, Symmetrical chest expansion, reduced air entry bilaterally GI/Abdomen: soft,drain in place good bowel sounds, no guarding or rebound /Bladder: no suprapubic tenderness, no CVA or paraspinal tenderness EXT/Skin: no c/c/e, no obvious rash MSK: FROM x 4 Neuro: CN 2-12 grossly intact, no new focal deficits Psych: calm - Constitutional Vitals: Temp Pulse Resp BP Pulse Ox 99.1 F 109 H 18 145/79 95 04/28/18 13:00 04/28/18 13:00 04/28/18 13:00 04/28/18 13:00 04/28/18 12:03 General appearance: Present: no acute distress, obese Results - Labs CBC & Chem 7: 04/26/18 06:10 04/28/18 09:15 Labs: Laboratory Last Values WBC 14.5 K/mm3 (4.5-11.0) H 04/26/18 06:10 RBC 3.60 M/mm3 (3.65-5.03) L 04/26/18 06:10 Hgb 10.2 gm/dl (10.1-14.3) 04/26/18 06:10 Hct 30.7 % (30.3-42.9) 04/26/18 06:10 MCV 85 fl (79-97) 04/26/18 06:10 MCH 28 pg (28-32) 04/26/18 06:10 MCHC 33 % (30-34) 04/26/18 06:10 RDW 14.6 % (13.2-15.2) 04/26/18 06:10 Plt Count 347 K/mm3 (140-440) 04/26/18 06:10 Lymph % (Auto) 14.0 % (13.4-35.0) 04/26/18 06:10 [place] % (Auto) 9.6 % (0.0-7.3) H 04/26/18 06:10 Eos % (Auto) 0.2 % (0.0-4.3) 04/26/18 06:10 Baso % (Auto) 1.2 % (0.0-1.8) 04/26/18 06:10 Lymph # 2.0 K/mm3 (1.2-5.4) 04/26/18 06:10 [place] # 1.4 K/mm3 (0.0-0.8) H 04/26/18 06:10 Eos # 0.0 K/mm3 (0.0-0.4) 04/26/18 06:10 Baso # 0.2 K/mm3 (0.0-0.1) H 04/26/18 06:10 Add Manual Diff Complete 04/16/18 06:12 Total Counted 100 04/16/18 06:12 Seg Neutrophils % 75.0 % (40.0-70.0) H 04/26/18 06:10 Seg Neuts % (Manual) 88.0 % (40.0-70.0) H 04/16/18 06:12 Band Neutrophils % 1.0 % 04/16/18 06:12 Lymphocytes % (Manual) 5.0 % (13.4-35.0) L 04/16/18 06:12 Reactive Lymphs % (Man) 0 % 04/16/18 06:12 Monocytes % (Manual) 2.0 % (0.0-7.3) 04/16/18 06:12 Eosinophils % (Manual) 0 % (0.0-4.3) 04/16/18 06:12 Basophils % (Manual) 0 % (0.0-1.8) 04/16/18 06:12 Metamyelocytes % 4.0 % 04/16/18 06:12 Myelocytes % 0 % 04/16/18 06:12 Promyelocytes % 0 % 04/16/18 06:12 Blast Cells % 0 % 04/16/18 06:12 Nucleated RBC % Not Reportable 04/16/18 06:12 Seg Neutrophils # 10.9 K/mm3 (1.8-7.7) H 04/26/18 06:10 Seg Neutrophils # Man 18.2 K/mm3 (1.8-7.7) H 04/16/18 06:12 Band Neutrophils # 0.2 K/mm3 04/16/18 06:12 Lymphocytes # (Manual) 1.0 K/mm3 (1.2-5.4) L 04/16/18 06:12 Abs React Lymphs (Man) 0.0 K/mm3 04/16/18 06:12 Monocytes # (Manual) 0.4 K/mm3 (0.0-0.8) 04/16/18 06:12 Eosinophils # (Manual) 0.0 K/mm3 (0.0-0.4) 04/16/18 06:12 Basophils # (Manual) 0.0 K/mm3 (0.0-0.1) 04/16/18 06:12 Metamyelocytes # 0.8 K/mm3 04/16/18 06:12 Myelocytes # 0.0 K/mm3 04/16/18 06:12 Promyelocytes # 0.0 K/mm3 04/16/18 06:12 Blast Cells # 0.0 K/mm3 04/16/18 06:12 WBC Morphology Not Reportable 04/16/18 06:12 Hypersegmented Neuts Not Reportable 04/16/18 06:12 Hyposegmented Neuts Not Reportable 04/16/18 06:12 Hypogranular Neuts Not Reportable 04/16/18 06:12 Smudge Cells Not Reportable 04/16/18 06:12 Toxic Granulation Not Reportable 04/16/18 06:12 Toxic Vacuolation Not Reportable 04/16/18 06:12 Dohle Bodies Not Reportable 04/16/18 06:12 Pelger-Huet Anomaly Not Reportable 04/16/18 06:12 Narendra Rods Not Reportable 04/16/18 06:12 Platelet Estimate Cons 04/16/18 06:12 Clumped Platelets Not Reportable 04/16/18 06:12 Plt Clumps, EDTA Not Reportable 04/16/18 06:12 Large Platelets Not Reportable 04/16/18 06:12 Giant Platelets Not Reportable 04/16/18 06:12 Platelet Satelliting Not Reportable 04/16/18 06:12 Plt Morphology Comment Not Reportable 04/16/18 06:12 RBC Morphology Not Reportable 04/16/18 06:12 Dimorphic RBCs Not Reportable 04/16/18 06:12 Polychromasia Few 04/16/18 06:12 Hypochromasia Not Reportable 04/16/18 06:12 Poikilocytosis Not Reportable 04/16/18 06:12 Anisocytosis 1+ 04/16/18 06:12 Microcytosis Not Reportable 04/16/18 06:12 Macrocytosis Not Reportable 04/16/18 06:12 Spherocytes Not Reportable 04/16/18 06:12 Pappenheimer Bodies Not Reportable 04/16/18 06:12 Sickle Cells Not Reportable 04/16/18 06:12 Target Cells Not Reportable 04/16/18 06:12 Tear Drop Cells Not Reportable 04/16/18 06:12 Ovalocytes Not Reportable 04/16/18 06:12 Helmet Cells Not Reportable 04/16/18 06:12 [place] Bodies Not Reportable 04/16/18 06:12 [place] Rings Not Reportable 04/16/18 06:12 [place] Cells Not Reportable 04/16/18 06:12 Bite Cells Not Reportable 04/16/18 06:12 Crenated Cell Not Reportable 04/16/18 06:12 Elliptocytes Not Reportable 04/16/18 06:12 Acanthocytes (Spur) Not Reportable 04/16/18 06:12 Rouleaux Not Reportable 04/16/18 06:12 Hemoglobin C Crystals Not Reportable 04/16/18 06:12 Schistocytes Not Reportable 04/16/18 06:12 Malaria parasites Not Reportable 04/16/18 06:12 Giorgio Bodies Not Reportable 04/16/18 06:12 Hem Pathologist Commnt No 04/16/18 06:12 PT 17.2 Sec. (12.2-14.9) H 04/26/18 16:39 INR 1.33 (0.87-1.13) H 04/26/18 16:39 APTT 29.0 Sec. (24.2-36.6) 04/07/18 16:28 POC ABG pH 7.519 (7.35-7.45) H 04/10/18 12:59 POC ABG pCO2 29.3 (35-45) L 04/10/18 12:59 POC ABG pO2 63 (80-105) L 04/10/18 12:59 POC ABG HCO3 23.9 04/10/18 12:59 POC ABG Total CO2 25 04/10/18 12:59 POC ABG O2 Sat 94 04/10/18 12:59 POC ABG Base Excess 1 04/10/18 12:59 VBG pH 7.413 (7.320-7.420) 04/07/18 09:41 FiO2 28 % 04/10/18 12:59 Sodium 139 mmol/L (137-145) 04/28/18 09:15 Potassium 3.8 mmol/L (3.6-5.0) 04/28/18 09:15 Chloride 100.4 mmol/L (98-107) 04/28/18 09:15 Carbon Dioxide 25 mmol/L (22-30) 04/28/18 09:15 Anion Gap 17 mmol/L 04/28/18 09:15 BUN 13 mg/dL (7-17) 04/28/18 09:15 Creatinine 0.5 mg/dL (0.7-1.2) L 04/28/18 09:15 Estimated GFR > 60 ml/min 04/28/18 09:15 BUN/Creatinine Ratio 26 % 04/28/18 09:15 Glucose 149 mg/dL (65-100) H 04/28/18 09:15 POC Glucose 107 (70-105) H 04/28/18 12:11 Lactic Acid 0.80 mmol/L (0.7-2.0) 04/08/18 13:33 Calcium 8.0 mg/dL (8.4-10.2) L 04/28/18 09:15 Phosphorus 3.20 mg/dL (2.5-4.5) 04/28/18 09:15 Magnesium 1.90 mg/dL (1.7-2.3) 04/28/18 09:15 Total Bilirubin 0.40 mg/dL (0.1-1.2) 04/27/18 05:50 AST 97 units/L (5-40) H 04/27/18 05:50 ALT 222 units/L (7-56) H 04/27/18 05:50 Alkaline Phosphatase 191 units/L (35-129) H 04/27/18 05:50 Lactate Dehydrogenase 266 units/L (91-180) H 04/26/18 16:10 Total Creatine Kinase 37 units/L (30-135) 04/19/18 12:55 CK-MB (CK-2) 1.0 ng/mL (0.0-4.0) 04/19/18 12:55 CK-MB (CK-2) Rel Index 2.7 (0-4) 04/19/18 12:55 Troponin T < 0.010 ng/mL (0.00-0.029) 04/19/18 12:55 C-Reactive Protein 29.60 mg/dL (0.00-1.30) H 04/13/18 04:20 Total Protein 7.5 g/dL (6.3-8.2) 04/27/18 05:50 Albumin 2.5 g/dL (3.9-5) L 04/27/18 05:50 Albumin/Globulin Ratio 0.5 % 04/27/18 05:50 Triglycerides 114 mg/dL (2-149) 04/16/18 08:52 Urine Color Yellow (Yellow) 04/24/18 15:20 Urine Turbidity Clear (Clear) 04/24/18 15:20 Urine pH 6.0 (5.0-7.0) 04/24/18 15:20 Ur Specific [place] 1.023 (1.003-1.030) 04/24/18 15:20 Urine Protein 30 mg/dl mg/dL (Negative) 04/24/18 15:20 Urine Glucose (UA) Neg mg/dL (Negative) 04/24/18 15:20 Urine Ketones Neg mg/dL (Negative) 04/24/18 15:20 Urine Blood Neg (Negative) 04/24/18 15:20 Urine Nitrite Neg (Negative) 04/24/18 15:20 Urine Bilirubin Neg (Negative) 04/24/18 15:20 Urine Urobilinogen < 2.0 mg/dL (<2.0) 04/24/18 15:20 Ur Leukocyte Esterase Neg (Negative) 04/24/18 15:20 Urine WBC (Auto) 3.0 /HPF (0.0-6.0) 04/24/18 15:20 Urine RBC (Auto) 4.0 /HPF (0.0-6.0) 04/24/18 15:20 U Epithel Cells (Auto) 4.0 /HPF (0-13.0) 04/24/18 15:20 Urine Mucus Few /HPF 04/24/18 15:20 Vancomycin Trough 13.2 ug/mL (5.0-20.0) 04/14/18 15:51 Miscellaneous Test Flexitest 1 H 04/13/18 13:37
[2018-04-28] MEDS ORDERED: INTRALIPID 20% 250 ML IV SCH (20:00)
[2018-04-28] MEDS ORDERED: TPN ADULT 1,800 ML IV SCH (20:00)
[2018-04-28] MEDS: LOVENOX SUB-Q SCH (22:05)
--- NOTE | 2018-04-28 22:45 | Progress Note ---
Assessment and Plan Patient sleeping at this time on room air. O2 saturation 97% on room air.No acute respiratory distress. - Patient Problems (1) Pneumoperitoneum Current Visit: Yes Status: Acute Plan to address problem: Appears improved. Last chest xray not reported pneumomediastinum. (2) Asthma Current Visit: Yes Status: Chronic Qualifiers: Asthma severity: unspecified severity Plan to address problem: Brovanna/Budesonide aerosol treatments q 12 hours. Albuterol inhaler 2 puffs po qid PRN for shortness of breath. Continue S/C Lovenox. Continue Protonix. (3) Sepsis Current Visit: Yes Status: Acute Qualifiers: Sepsis type: sepsis due to unspecified organism Qualified Code(s): A41.9 - Sepsis, unspecified organism Plan to address problem: Patient is on Zyvox and zosyn. (4) Pleural effusion on left Current Visit: Yes Status: Acute Plan to address problem: S/P left thoracentesis. Pleural fluid results pending. Subjective Date of service: 04/28/18 Principal diagnosis: Sepsis Syndrome; Acute Hypoxemic Resp Failure; Acute Encephalopathy Interval history: Patient sleeping at this time on room air. O2 saturation 97% on room air.No acute respiratory distress. Objective Vital Signs - 12hr 04/28/18 04/28/18 04/28/18 12:03 13:00 16:18 Temperature 99.1 F Pulse Rate 108 H 109 H 111 H Pulse Rate [ Anterior Bilateral] Respiratory 18 Rate Respiratory Rate [Anterior Bilateral] Blood Pressure Blood Pressure 145/79 [Left] O2 Sat by Pulse 95 97 Oximetry 04/28/18 04/28/18 04/28/18 19:24 19:47 20:07 Temperature 98.7 F Pulse Rate 113 H Pulse Rate [ 116 H 116 H Anterior Bilateral] Respiratory 20 Rate Respiratory 20 20 Rate [Anterior Bilateral] Blood Pressure 150/86 Blood Pressure [Left] O2 Sat by Pulse 97 Oximetry 04/28/18 04/28/18 22:06 22:07 Temperature Pulse Rate 115 H Pulse Rate [ Anterior Bilateral] Respiratory 17 Rate Respiratory Rate [Anterior Bilateral] Blood Pressure 178/94 Blood Pressure [Left] O2 Sat by Pulse Oximetry Constitutional: no acute distress, asleep, other (elderly AAF , normocephalic and atraumatic resting in bed , not in any respiratory distress) Eyes: non-icteric ENT: oropharynx moist, other (no thyromegaly) Neck: supple, no lymphadenopathy, no JVD, other (large neck circumference) Effort: mildly labored Ascultation: Bilateral: diminished breath sounds, rhonchi (scant in bases) Percussion: Bilateral: not dull Cardiovascular: regular rate and rhythm, other (No R/M) Gastrointestinal: hypoactive bowel sounds, soft, tender (mild), non-distended, other (no palpable HSM) Integumentary: normal Extremities: no cyanosis, no edema, pulses normal, no ischemia or petechiae Neurologic: normal mental status, non-focal exam (grossly), pupils equal and round, CN II-XII normal, motor strength normal and Psychiatric: mood appropriate, affect normal CBC and BMP: 04/26/18 06:10 04/28/18 09:15 ABG, PT/INR, D-dimer: ABG POC ABG pH 7.519 (7.35-7.45) H 04/10/18 12:59 POC ABG pCO2 29.3 (35-45) L 04/10/18 12:59 POC ABG pO2 63 (80-105) L 04/10/18 12:59 POC ABG HCO3 23.9 04/10/18 12:59 POC ABG Total CO2 25 04/10/18 12:59 POC ABG O2 Sat 94 04/10/18 12:59 PT/INR, D-dimer PT 17.2 Sec. (12.2-14.9) H 04/26/18 16:39 INR 1.33 (0.87-1.13) H 04/26/18 16:39 Abnormal lab findings: Abnormal Labs 04/07/18 04/07/18 04/07/18 00:05 00:05 09:41 WBC 18.4 H 21.3 H RBC Hgb Hct MCV MCHC RDW Plt Count Lymph % (Auto) 4.5 L [place] % (Auto) Lymph # 0.8 L [place] # 1.2 H Baso # Seg Neutrophils % 88.9 H Seg Neuts % (Manual) 85.0 H Lymphocytes % (Manual) 4.0 L Monocytes % (Manual) Nucleated RBC % Seg Neutrophils # 16.4 H Seg Neutrophils # Man 18.1 H Lymphocytes # (Manual) 0.9 L Monocytes # (Manual) 1.1 H PT INR POC ABG pH POC ABG pCO2 POC ABG pO2 Sodium Potassium Chloride Carbon Dioxide BUN Creatinine Glucose 123 H POC Glucose Calcium 8.0 L Phosphorus Magnesium 1.60 L AST 59 H ALT Alkaline Phosphatase Lactate Dehydrogenase C-Reactive Protein Total Protein Albumin 2.9 L Urine WBC (Auto) Miscellaneous Test 04/07/18 04/08/18 04/08/18 09:41 00:20 10:25 WBC 19.2 H RBC Hgb Hct MCV MCHC RDW Plt Count Lymph % (Auto) 5.4 L [place] % (Auto) Lymph # 1.0 L [place] # 1.1 H Baso # Seg Neutrophils % 88.9 H Seg Neuts % (Manual) Lymphocytes % (Manual) Monocytes % (Manual) Nucleated RBC % Seg Neutrophils # 17.1 H Seg Neutrophils # Man Lymphocytes # (Manual) Monocytes # (Manual) PT INR POC ABG pH POC ABG pCO2 POC ABG pO2 Sodium Potassium 3.3 L Chloride 95.1 L Carbon Dioxide 21 L BUN Creatinine Glucose 113 H POC Glucose Calcium Phosphorus Magnesium AST ALT Alkaline Phosphatase Lactate Dehydrogenase C-Reactive Protein Total Protein Albumin 3.6 L Urine WBC (Auto) 45.0 H Miscellaneous Test 04/08/18 04/08/18 04/08/18 10:25 13:33 23:53 WBC 12.8 H RBC Hgb Hct MCV MCHC RDW Plt Count Lymph % (Auto) [place] % (Auto) Lymph # [place] # Baso # Seg Neutrophils % Seg Neuts % (Manual) 97.0 H Lymphocytes % (Manual) 2.0 L Monocytes % (Manual) Nucleated RBC % Seg Neutrophils # Seg Neutrophils # Man 12.4 H Lymphocytes # (Manual) 0.3 L Monocytes # (Manual) PT INR POC ABG pH POC ABG pCO2 POC ABG pO2 Sodium Potassium 3.5 L Chloride Carbon Dioxide BUN Creatinine Glucose 123 H POC Glucose Calcium 7.9 L Phosphorus Magnesium AST 53 H ALT Alkaline Phosphatase Lactate Dehydrogenase C-Reactive Protein 52.00 H Total Protein 6.1 L Albumin 2.7 L Urine WBC (Auto) Miscellaneous Test 04/09/18 04/09/18 04/09/18 04:20 04:20 13:38 WBC 16.2 H RBC Hgb Hct MCV MCHC RDW Plt Count Lymph % (Auto) [place] % (Auto) Lymph # [place] # Baso # Seg Neutrophils % Seg Neuts % (Manual) 89.0 H Lymphocytes % (Manual) 4.0 L Monocytes % (Manual) Nucleated RBC % Seg Neutrophils # Seg Neutrophils # Man 14.4 H Lymphocytes # (Manual) 0.6 L Monocytes # (Manual) PT INR POC ABG pH 7.494 H POC ABG pCO2 31.6 L POC ABG pO2 68 L Sodium Potassium 3.5 L Chloride Carbon Dioxide BUN Creatinine 0.6 L Glucose 117 H POC Glucose Calcium 7.9 L Phosphorus 1.50 L D Magnesium AST ALT Alkaline Phosphatase Lactate Dehydrogenase C-Reactive Protein Total Protein 5.6 L Albumin 2.9 L Urine WBC (Auto) Miscellaneous Test 04/09/18 04/09/18 04/09/18 18:25 21:45 21:45 WBC 21.3 H RBC 3.62 L Hgb Hct MCV MCHC 35 H RDW Plt Count Lymph % (Auto) [place] % (Auto) Lymph # [place] # Baso # Seg Neutrophils % Seg Neuts % (Manual) 90.0 H Lymphocytes % (Manual) 6.0 L Monocytes % (Manual) Nucleated RBC % 1.0 H Seg Neutrophils # Seg Neutrophils # Man 19.2 H Lymphocytes # (Manual) Monocytes # (Manual) 0.9 H PT INR POC ABG pH POC ABG pCO2 POC ABG pO2 Sodium Potassium Chloride Carbon Dioxide BUN 5 L Creatinine 0.5 L Glucose 134 H POC Glucose 155 H Calcium 7.9 L Phosphorus 2.20 L D Magnesium AST ALT Alkaline Phosphatase Lactate Dehydrogenase C-Reactive Protein Total Protein Albumin Urine WBC (Auto) Miscellaneous Test 04/09/18 04/10/18 04/10/18 23:38 04:07 04:07 WBC 20.2 H RBC 3.38 L Hgb 9.4 L Hct 28.9 L MCV MCHC RDW Plt Count Lymph % (Auto) [place] % (Auto) Lymph # [place] # Baso # Seg Neutrophils % Seg Neuts % (Manual) Lymphocytes % (Manual) 6.0 L Monocytes % (Manual) Nucleated RBC % Seg Neutrophils # Seg Neutrophils # Man 10.7 H Lymphocytes # (Manual) Monocytes # (Manual) PT INR POC ABG pH POC ABG pCO2 POC ABG pO2 Sodium Potassium Chloride Carbon Dioxide BUN 6 L Creatinine 0.6 L Glucose 176 H POC Glucose 160 H Calcium 7.7 L Phosphorus Magnesium AST ALT Alkaline Phosphatase Lactate Dehydrogenase C-Reactive Protein Total Protein Albumin Urine WBC (Auto) Miscellaneous Test 04/10/18 04/10/18 04/10/18 05:29 11:55 12:59 WBC RBC Hgb Hct MCV MCHC RDW Plt Count Lymph % (Auto) [place] % (Auto) Lymph # [place] # Baso # Seg Neutrophils % Seg Neuts % (Manual) Lymphocytes % (Manual) Monocytes % (Manual) Nucleated RBC % Seg Neutrophils # Seg Neutrophils # Man Lymphocytes # (Manual) Monocytes # (Manual) PT INR POC ABG pH 7.519 H POC ABG pCO2 29.3 L POC ABG pO2 63 L Sodium Potassium Chloride Carbon Dioxide BUN Creatinine Glucose POC Glucose 171 H 194 H Calcium Phosphorus Magnesium AST ALT Alkaline Phosphatase Lactate Dehydrogenase C-Reactive Protein Total Protein Albumin Urine WBC (Auto) Miscellaneous Test 04/10/18 04/10/18 04/10/18 18:11 18:28 18:28 WBC 22.7 H RBC 3.62 L Hgb Hct MCV MCHC RDW Plt Count Lymph % (Auto) [place] % (Auto) Lymph # [place] # Baso # Seg Neutrophils % Seg Neuts % (Manual) 84.0 H Lymphocytes % (Manual) 7.0 L Monocytes % (Manual) 8.0 H Nucleated RBC % Seg Neutrophils # Seg Neutrophils # Man 19.1 H Lymphocytes # (Manual) Monocytes # (Manual) 1.8 H PT INR POC ABG pH POC ABG pCO2 POC ABG pO2 Sodium Potassium Chloride Carbon Dioxide BUN Creatinine Glucose POC Glucose 118 H Calcium Phosphorus Magnesium AST ALT Alkaline Phosphatase Lactate Dehydrogenase C-Reactive Protein 45.20 H Total Protein Albumin Urine WBC (Auto) Miscellaneous Test 04/10/18 04/10/18 04/11/18 18:28 23:45 03:35 WBC 20.9 H RBC 3.54 L Hgb 10.0 L Hct MCV MCHC RDW Plt Count Lymph % (Auto) [place] % (Auto) Lymph # [place] # Baso # Seg Neutrophils % Seg Neuts % (Manual) 80.0 H Lymphocytes % (Manual) 6.0 L Monocytes % (Manual) Nucleated RBC % Seg Neutrophils # Seg Neutrophils # Man 16.7 H Lymphocytes # (Manual) Monocytes # (Manual) PT INR POC ABG pH POC ABG pCO2 POC ABG pO2 Sodium Potassium 3.5 L Chloride Carbon Dioxide BUN 5 L Creatinine 0.5 L Glucose 108 H POC Glucose 149 H Calcium 8.3 L Phosphorus Magnesium AST ALT Alkaline Phosphatase Lactate Dehydrogenase C-Reactive Protein Total Protein Albumin Urine WBC (Auto) Miscellaneous Test 04/11/18 04/11/18 04/11/18 03:35 06:17 11:29 WBC RBC Hgb Hct MCV MCHC RDW Plt Count Lymph % (Auto) [place] % (Auto) Lymph # [place] # Baso # Seg Neutrophils % Seg Neuts % (Manual) Lymphocytes % (Manual) Monocytes % (Manual) Nucleated RBC % Seg Neutrophils # Seg Neutrophils # Man Lymphocytes # (Manual) Monocytes # (Manual) PT INR POC ABG pH POC ABG pCO2 POC ABG pO2 Sodium Potassium Chloride Carbon Dioxide BUN Creatinine 0.5 L Glucose 143 H POC Glucose 155 H 158 H Calcium 8.2 L Phosphorus Magnesium AST ALT Alkaline Phosphatase Lactate Dehydrogenase C-Reactive Protein Total Protein 6.0 L Albumin 2.2 L Urine WBC (Auto) Miscellaneous Test 04/11/18 04/11/18 04/12/18 18:13 23:51 05:29 WBC RBC Hgb Hct MCV MCHC RDW Plt Count Lymph % (Auto) [place] % (Auto) Lymph # [place] # Baso # Seg Neutrophils % Seg Neuts % (Manual) Lymphocytes % (Manual) Monocytes % (Manual) Nucleated RBC % Seg Neutrophils # Seg Neutrophils # Man Lymphocytes # (Manual) Monocytes # (Manual) PT INR POC ABG pH POC ABG pCO2 POC ABG pO2 Sodium Potassium Chloride Carbon Dioxide BUN Creatinine Glucose POC Glucose 135 H 143 H 150 H Calcium Phosphorus Magnesium AST ALT Alkaline Phosphatase Lactate Dehydrogenase C-Reactive Protein Total Protein Albumin Urine WBC (Auto) Miscellaneous Test 04/12/18 04/12/18 04/13/18 05:40 05:40 00:32 WBC 18.0 H RBC 3.34 L Hgb 9.5 L Hct 28.9 L MCV MCHC RDW Plt Count Lymph % (Auto) 7.4 L [place] % (Auto) 10.8 H Lymph # [place] # 1.9 H Baso # Seg Neutrophils % 81.1 H Seg Neuts % (Manual) Lymphocytes % (Manual) Monocytes % (Manual) Nucleated RBC % Seg Neutrophils # 14.6 H Seg Neutrophils # Man Lymphocytes # (Manual) Monocytes # (Manual) PT INR POC ABG pH POC ABG pCO2 POC ABG pO2 Sodium Potassium Chloride 107.7 H Carbon Dioxide 21 L BUN Creatinine 0.6 L Glucose 140 H POC Glucose 144 H Calcium Phosphorus Magnesium AST ALT Alkaline Phosphatase Lactate Dehydrogenase C-Reactive Protein Total Protein Albumin Urine WBC (Auto) Miscellaneous Test 04/13/18 04/13/18 04/13/18 04:20 04:20 04:20 WBC 18.1 H RBC 3.52 L Hgb 9.8 L Hct 30.1 L MCV MCHC RDW Plt Count Lymph % (Auto) 11.1 L [place] % (Auto) 13.6 H Lymph # [place] # 2.5 H Baso # Seg Neutrophils % 74.4 H Seg Neuts % (Manual) Lymphocytes % (Manual) Monocytes % (Manual) Nucleated RBC % Seg Neutrophils # 13.4 H Seg Neutrophils # Man Lymphocytes # (Manual) Monocytes # (Manual) PT INR POC ABG pH POC ABG pCO2 POC ABG pO2 Sodium Potassium Chloride Carbon Dioxide BUN Creatinine 0.5 L Glucose 142 H POC Glucose Calcium Phosphorus Magnesium AST ALT Alkaline Phosphatase Lactate Dehydrogenase C-Reactive Protein 29.60 H Total Protein Albumin Urine WBC (Auto) Miscellaneous Test 04/13/18 04/13/18 04/13/18 05:35 13:37 23:50 WBC RBC Hgb Hct MCV MCHC RDW Plt Count Lymph % (Auto) [place] % (Auto) Lymph # [place] # Baso # Seg Neutrophils % Seg Neuts % (Manual) Lymphocytes % (Manual) Monocytes % (Manual) Nucleated RBC % Seg Neutrophils # Seg Neutrophils # Man Lymphocytes # (Manual) Monocytes # (Manual) PT INR POC ABG pH POC ABG pCO2 POC ABG pO2 Sodium Potassium Chloride Carbon Dioxide BUN Creatinine Glucose POC Glucose 142 H 160 H Calcium Phosphorus Magnesium AST ALT Alkaline Phosphatase Lactate Dehydrogenase C-Reactive Protein Total Protein Albumin Urine WBC (Auto) Miscellaneous Test Flexitest 1 H 04/14/18 04/14/18 04/14/18 04:00 04:00 05:29 WBC 22.1 H RBC 3.59 L Hgb 9.9 L Hct MCV MCHC RDW Plt Count Lymph % (Auto) [place] % (Auto) Lymph # [place] # Baso # Seg Neutrophils % Seg Neuts % (Manual) 73.0 H Lymphocytes % (Manual) 9.0 L Monocytes % (Manual) 11.0 H Nucleated RBC % Seg Neutrophils # Seg Neutrophils # Man 16.1 H Lymphocytes # (Manual) Monocytes # (Manual) 2.4 H PT INR POC ABG pH POC ABG pCO2 POC ABG pO2 Sodium Potassium Chloride Carbon Dioxide BUN Creatinine Glucose 155 H POC Glucose 133 H Calcium Phosphorus Magnesium 2.50 H AST ALT Alkaline Phosphatase Lactate Dehydrogenase C-Reactive Protein Total Protein Albumin Urine WBC (Auto) Miscellaneous Test 04/14/18 04/14/18 04/14/18 12:47 16:01 23:42 WBC RBC Hgb Hct MCV MCHC RDW Plt Count Lymph % (Auto) [place] % (Auto) Lymph # [place] # Baso # Seg Neutrophils % Seg Neuts % (Manual) Lymphocytes % (Manual) Monocytes % (Manual) Nucleated RBC % Seg Neutrophils # Seg Neutrophils # Man Lymphocytes # (Manual) Monocytes # (Manual) PT INR POC ABG pH POC ABG pCO2 POC ABG pO2 Sodium Potassium Chloride Carbon Dioxide BUN Creatinine Glucose POC Glucose 183 H 153 H 172 H Calcium Phosphorus Magnesium AST ALT Alkaline Phosphatase Lactate Dehydrogenase C-Reactive Protein Total Protein Albumin Urine WBC (Auto) Miscellaneous Test 04/15/18 04/15/18 04/15/18 04:42 04:42 05:49 WBC 21.5 H RBC 3.37 L Hgb 9.4 L Hct 28.9 L MCV MCHC RDW Plt Count 490 H Lymph % (Auto) [place] % (Auto) Lymph # [place] # Baso # Seg Neutrophils % Seg Neuts % (Manual) 77.0 H Lymphocytes % (Manual) 7.0 L Monocytes % (Manual) 10.0 H Nucleated RBC % Seg Neutrophils # Seg Neutrophils # Man 16.6 H Lymphocytes # (Manual) Monocytes # (Manual) 2.2 H PT INR POC ABG pH POC ABG pCO2 POC ABG pO2 Sodium Potassium 3.4 L Chloride 107.5 H Carbon Dioxide 21 L BUN Creatinine Glucose 165 H POC Glucose 147 H Calcium 8.0 L Phosphorus Magnesium 2.40 H AST ALT Alkaline Phosphatase Lactate Dehydrogenase C-Reactive Protein Total Protein Albumin Urine WBC (Auto) Miscellaneous Test 04/15/18 04/15/18 04/16/18 11:17 17:35 00:26 WBC RBC Hgb Hct MCV MCHC RDW Plt Count Lymph % (Auto) [place] % (Auto) Lymph # [place] # Baso # Seg Neutrophils % Seg Neuts % (Manual) Lymphocytes % (Manual) Monocytes % (Manual) Nucleated RBC % Seg Neutrophils # Seg Neutrophils # Man Lymphocytes # (Manual) Monocytes # (Manual) PT INR POC ABG pH POC ABG pCO2 POC ABG pO2 Sodium Potassium Chloride Carbon Dioxide BUN Creatinine Glucose POC Glucose 119 H 169 H 176 H Calcium Phosphorus Magnesium AST ALT Alkaline Phosphatase Lactate Dehydrogenase C-Reactive Protein Total Protein Albumin Urine WBC (Auto) Miscellaneous Test 04/16/18 04/16/18 04/16/18 06:12 06:19 06:21 WBC 20.7 H RBC 3.25 L Hgb 9.0 L Hct MCV MCHC 29 L RDW 16.7 H Plt Count 498 H Lymph % (Auto) [place] % (Auto) Lymph # [place] # Baso # Seg Neutrophils % Seg Neuts % (Manual) 88.0 H Lymphocytes % (Manual) 5.0 L Monocytes % (Manual) Nucleated RBC % Seg Neutrophils # Seg Neutrophils # Man 18.2 H Lymphocytes # (Manual) 1.0 L Monocytes # (Manual) PT INR POC ABG pH POC ABG pCO2 POC ABG pO2 Sodium Potassium Chloride Carbon Dioxide BUN Creatinine Glucose POC Glucose > 500 H 493 H Calcium Phosphorus Magnesium AST ALT Alkaline Phosphatase Lactate Dehydrogenase C-Reactive Protein Total Protein Albumin Urine WBC (Auto) Miscellaneous Test 04/16/18 04/16/18 04/16/18 06:24 08:52 14:05 WBC RBC Hgb Hct MCV MCHC RDW Plt Count Lymph % (Auto) [place] % (Auto) Lymph # [place] # Baso # Seg Neutrophils % Seg Neuts % (Manual) Lymphocytes % (Manual) Monocytes % (Manual) Nucleated RBC % Seg Neutrophils # Seg Neutrophils # Man Lymphocytes # (Manual) Monocytes # (Manual) PT INR POC ABG pH POC ABG pCO2 POC ABG pO2 Sodium Potassium 3.4 L Chloride Carbon Dioxide BUN Creatinine 0.5 L Glucose 166 H POC Glucose 173 H 196 H Calcium 8.2 L Phosphorus Magnesium AST ALT Alkaline Phosphatase Lactate Dehydrogenase C-Reactive Protein Total Protein Albumin Urine WBC (Auto) Miscellaneous Test 04/16/18 04/17/18 04/17/18 17:17 00:06 04:50 WBC 16.0 H RBC 3.12 L Hgb 8.7 L Hct 29.0 L MCV MCHC RDW 16.2 H Plt Count 455 H Lymph % (Auto) 9.4 L [place] % (Auto) 7.7 H Lymph # [place] # 1.2 H Baso # Seg Neutrophils % 81.9 H Seg Neuts % (Manual) Lymphocytes % (Manual) Monocytes % (Manual) Nucleated RBC % Seg Neutrophils # 13.1 H Seg Neutrophils # Man Lymphocytes # (Manual) Monocytes # (Manual) PT INR POC ABG pH POC ABG pCO2 POC ABG pO2 Sodium Potassium Chloride Carbon Dioxide BUN Creatinine Glucose POC Glucose 189 H 190 H Calcium Phosphorus Magnesium AST ALT Alkaline Phosphatase Lactate Dehydrogenase C-Reactive Protein Total Protein Albumin Urine WBC (Auto) Miscellaneous Test 04/17/18 04/17/18 04/17/18 04:50 05:38 07:17 WBC RBC Hgb Hct MCV MCHC RDW Plt Count Lymph % (Auto) [place] % (Auto) Lymph # [place] # Baso # Seg Neutrophils % Seg Neuts % (Manual) Lymphocytes % (Manual) Monocytes % (Manual) Nucleated RBC % Seg Neutrophils # Seg Neutrophils # Man Lymphocytes # (Manual) Monocytes # (Manual) PT INR POC ABG pH POC ABG pCO2 POC ABG pO2 Sodium 136 L Potassium 3.4 L Chloride 96.9 L Carbon Dioxide BUN Creatinine 0.6 L Glucose 167 H POC Glucose 190 H Calcium 7.6 L 8.0 L Phosphorus Magnesium AST ALT Alkaline Phosphatase Lactate Dehydrogenase C-Reactive Protein Total Protein Albumin Urine WBC (Auto) Miscellaneous Test 04/17/18 04/17/18 04/17/18 11:50 18:37 23:53 WBC RBC Hgb Hct MCV MCHC RDW Plt Count Lymph % (Auto) [place] % (Auto) Lymph # [place] # Baso # Seg Neutrophils % Seg Neuts % (Manual) Lymphocytes % (Manual) Monocytes % (Manual) Nucleated RBC % Seg Neutrophils # Seg Neutrophils # Man Lymphocytes # (Manual) Monocytes # (Manual) PT INR POC ABG pH POC ABG pCO2 POC ABG pO2 Sodium Potassium Chloride Carbon Dioxide BUN Creatinine Glucose POC Glucose 163 H 167 H 142 H Calcium Phosphorus Magnesium AST ALT Alkaline Phosphatase Lactate Dehydrogenase C-Reactive Protein Total Protein Albumin Urine WBC (Auto) Miscellaneous Test 04/18/18 04/18/18 04/18/18 05:59 10:05 12:25 WBC RBC Hgb Hct MCV MCHC RDW Plt Count Lymph % (Auto) [place] % (Auto) Lymph # [place] # Baso # Seg Neutrophils % Seg Neuts % (Manual) Lymphocytes % (Manual) Monocytes % (Manual) Nucleated RBC % Seg Neutrophils # Seg Neutrophils # Man Lymphocytes # (Manual) Monocytes # (Manual) PT INR POC ABG pH POC ABG pCO2 POC ABG pO2 Sodium Potassium Chloride Carbon Dioxide BUN Creatinine 0.5 L Glucose 127 H POC Glucose 144 H 171 H Calcium 8.2 L Phosphorus Magnesium AST ALT Alkaline Phosphatase Lactate Dehydrogenase C-Reactive Protein Total Protein Albumin Urine WBC (Auto) Miscellaneous Test 04/18/18 04/18/18 04/19/18 14:54 17:56 00:15 WBC 18.2 H RBC 2.95 L Hgb 8.9 L Hct 29.0 L MCV 98 H MCHC RDW 16.9 H Plt Count Lymph % (Auto) 9.2 L [place] % (Auto) Lymph # [place] # 1.2 H Baso # Seg Neutrophils % 82.7 H Seg Neuts % (Manual) Lymphocytes % (Manual) Monocytes % (Manual) Nucleated RBC % Seg Neutrophils # 15.1 H Seg Neutrophils # Man Lymphocytes # (Manual) Monocytes # (Manual) PT INR POC ABG pH POC ABG pCO2 POC ABG pO2 Sodium Potassium Chloride Carbon Dioxide BUN Creatinine Glucose POC Glucose 169 H 148 H Calcium Phosphorus Magnesium AST ALT Alkaline Phosphatase Lactate Dehydrogenase C-Reactive Protein Total Protein Albumin Urine WBC (Auto) Miscellaneous Test 04/19/18 04/19/18 04/19/18 05:21 08:00 08:00 WBC 18.7 H RBC Hgb Hct MCV MCHC RDW Plt Count 531 H Lymph % (Auto) [place] % (Auto) Lymph # [place] # Baso # Seg Neutrophils % Seg Neuts % (Manual) Lymphocytes % (Manual) Monocytes % (Manual) Nucleated RBC % Seg Neutrophils # Seg Neutrophils # Man Lymphocytes # (Manual) Monocytes # (Manual) PT INR POC ABG pH POC ABG pCO2 POC ABG pO2 Sodium Potassium Chloride Carbon Dioxide BUN 18 H Creatinine 0.5 L Glucose 141 H POC Glucose 146 H Calcium Phosphorus Magnesium AST ALT 76 H Alkaline Phosphatase 142 H Lactate Dehydrogenase C-Reactive Protein Total Protein Albumin 2.4 L Urine WBC (Auto) Miscellaneous Test 04/19/18 04/19/18 04/20/18 12:12 17:41 00:21 WBC RBC Hgb Hct MCV MCHC RDW Plt Count Lymph % (Auto) [place] % (Auto) Lymph # [place] # Baso # Seg Neutrophils % Seg Neuts % (Manual) Lymphocytes % (Manual) Monocytes % (Manual) Nucleated RBC % Seg Neutrophils # Seg Neutrophils # Man Lymphocytes # (Manual) Monocytes # (Manual) PT INR POC ABG pH POC ABG pCO2 POC ABG pO2 Sodium Potassium Chloride Carbon Dioxide BUN Creatinine Glucose POC Glucose 161 H 134 H 159 H Calcium Phosphorus Magnesium AST ALT Alkaline Phosphatase Lactate Dehydrogenase C-Reactive Protein Total Protein Albumin Urine WBC (Auto) Miscellaneous Test 04/20/18 04/20/18 04/20/18 04:00 04:00 07:05 WBC 16.5 H RBC 3.51 L Hgb 9.9 L Hct 30.1 L MCV MCHC RDW Plt Count 530 H Lymph % (Auto) 10.7 L [place] % (Auto) 9.2 H Lymph # [place] # 1.5 H Baso # Seg Neutrophils % 78.5 H Seg Neuts % (Manual) Lymphocytes % (Manual) Monocytes % (Manual) Nucleated RBC % Seg Neutrophils # 13.0 H Seg Neutrophils # Man Lymphocytes # (Manual) Monocytes # (Manual) PT INR POC ABG pH POC ABG pCO2 POC ABG pO2 Sodium Potassium Chloride Carbon Dioxide BUN 19 H Creatinine 0.6 L Glucose 185 H POC Glucose 166 H Calcium Phosphorus Magnesium AST ALT Alkaline Phosphatase Lactate Dehydrogenase C-Reactive Protein Total Protein Albumin Urine WBC (Auto) Miscellaneous Test 04/20/18 04/20/18 04/21/18 12:59 19:06 00:17 WBC RBC Hgb Hct MCV MCHC RDW Plt Count Lymph % (Auto) [place] % (Auto) Lymph # [place] # Baso # Seg Neutrophils % Seg Neuts % (Manual) Lymphocytes % (Manual) Monocytes % (Manual) Nucleated RBC % Seg Neutrophils # Seg Neutrophils # Man Lymphocytes # (Manual) Monocytes # (Manual) PT INR POC ABG pH POC ABG pCO2 POC ABG pO2 Sodium Potassium Chloride Carbon Dioxide BUN Creatinine Glucose POC Glucose 166 H 170 H 178 H Calcium Phosphorus Magnesium AST ALT Alkaline Phosphatase Lactate Dehydrogenase C-Reactive Protein Total Protein Albumin Urine WBC (Auto) Miscellaneous Test 04/21/18 04/21/18 04/21/18 06:15 06:15 06:39 WBC 15.1 H RBC 3.48 L Hgb 9.8 L Hct 30.2 L MCV MCHC RDW Plt Count 499 H Lymph % (Auto) [place] % (Auto) 8.7 H Lymph # [place] # 1.3 H Baso # 0.2 H Seg Neutrophils % 74.7 H Seg Neuts % (Manual) Lymphocytes % (Manual) Monocytes % (Manual) Nucleated RBC % Seg Neutrophils # 11.3 H Seg Neutrophils # Man Lymphocytes # (Manual) Monocytes # (Manual) PT INR POC ABG pH POC ABG pCO2 POC ABG pO2 Sodium Potassium Chloride 108.8 H Carbon Dioxide BUN 18 H Creatinine 0.6 L Glucose 157 H POC Glucose 153 H Calcium 8.0 L Phosphorus Magnesium AST ALT Alkaline Phosphatase Lactate Dehydrogenase C-Reactive Protein Total Protein Albumin Urine WBC (Auto) Miscellaneous Test 04/21/18 04/21/18 04/21/18 11:49 17:07 22:07 WBC RBC Hgb Hct MCV MCHC RDW Plt Count Lymph % (Auto) [place] % (Auto) Lymph # [place] # Baso # Seg Neutrophils % Seg Neuts % (Manual) Lymphocytes % (Manual) Monocytes % (Manual) Nucleated RBC % Seg Neutrophils # Seg Neutrophils # Man Lymphocytes # (Manual) Monocytes # (Manual) PT INR POC ABG pH POC ABG pCO2 POC ABG pO2 Sodium Potassium Chloride Carbon Dioxide BUN Creatinine Glucose POC Glucose 184 H 163 H 169 H Calcium Phosphorus Magnesium AST ALT Alkaline Phosphatase Lactate Dehydrogenase C-Reactive Protein Total Protein Albumin Urine WBC (Auto) Miscellaneous Test 04/22/18 04/22/18 04/22/18 07:00 07:00 08:52 WBC 14.0 H RBC 3.26 L Hgb 9.3 L Hct 28.6 L MCV MCHC RDW Plt Count 460 H Lymph % (Auto) 13.0 L [place] % (Auto) 10.1 H Lymph # [place] # 1.4 H Baso # Seg Neutrophils % 74.4 H Seg Neuts % (Manual) Lymphocytes % (Manual) Monocytes % (Manual) Nucleated RBC % Seg Neutrophils # 10.4 H Seg Neutrophils # Man Lymphocytes # (Manual) Monocytes # (Manual) PT INR POC ABG pH POC ABG pCO2 POC ABG pO2 Sodium Potassium Chloride Carbon Dioxide BUN 19 H Creatinine 0.6 L Glucose 159 H POC Glucose 156 H Calcium Phosphorus Magnesium AST ALT Alkaline Phosphatase Lactate Dehydrogenase C-Reactive Protein Total Protein Albumin Urine WBC (Auto) Miscellaneous Test 04/22/18 04/22/18 04/22/18 12:34 16:20 21:42 WBC RBC Hgb Hct MCV MCHC RDW Plt Count Lymph % (Auto) [place] % (Auto) Lymph # [place] # Baso # Seg Neutrophils % Seg Neuts % (Manual) Lymphocytes % (Manual) Monocytes % (Manual) Nucleated RBC % Seg Neutrophils # Seg Neutrophils # Man Lymphocytes # (Manual) Monocytes # (Manual) PT INR POC ABG pH POC ABG pCO2 POC ABG pO2 Sodium Potassium Chloride Carbon Dioxide BUN Creatinine Glucose POC Glucose 150 H 148 H 134 H Calcium Phosphorus Magnesium AST ALT Alkaline Phosphatase Lactate Dehydrogenase C-Reactive Protein Total Protein Albumin Urine WBC (Auto) Miscellaneous Test 04/23/18 04/23/18 04/23/18 05:45 05:45 08:45 WBC 12.5 H RBC 3.41 L Hgb 9.6 L Hct 29.6 L MCV MCHC RDW Plt Count 441 H Lymph % (Auto) [place] % (Auto) 11.3 H Lymph # [place] # 1.4 H Baso # Seg Neutrophils % 70.2 H Seg Neuts % (Manual) Lymphocytes % (Manual) Monocytes % (Manual) Nucleated RBC % Seg Neutrophils # 9.0 H Seg Neutrophils # Man Lymphocytes # (Manual) Monocytes # (Manual) PT INR POC ABG pH POC ABG pCO2 POC ABG pO2 Sodium Potassium Chloride Carbon Dioxide BUN 19 H Creatinine 0.6 L Glucose 119 H POC Glucose 154 H Calcium Phosphorus Magnesium 2.40 H AST ALT Alkaline Phosphatase Lactate Dehydrogenase C-Reactive Protein Total Protein Albumin Urine WBC (Auto) Miscellaneous Test 04/23/18 04/23/18 04/24/18 11:45 22:09 07:26 WBC RBC Hgb Hct MCV MCHC RDW Plt Count Lymph % (Auto) [place] % (Auto) Lymph # [place] # Baso # Seg Neutrophils % Seg Neuts % (Manual) Lymphocytes % (Manual) Monocytes % (Manual) Nucleated RBC % Seg Neutrophils # Seg Neutrophils # Man Lymphocytes # (Manual) Monocytes # (Manual) PT INR POC ABG pH POC ABG pCO2 POC ABG pO2 Sodium Potassium Chloride Carbon Dioxide BUN Creatinine Glucose POC Glucose 132 H 113 H 164 H Calcium Phosphorus Magnesium AST ALT Alkaline Phosphatase Lactate Dehydrogenase C-Reactive Protein Total Protein Albumin Urine WBC (Auto) Miscellaneous Test 04/24/18 04/24/18 04/24/18 08:30 08:30 11:27 WBC 14.4 H RBC 3.30 L Hgb 9.6 L Hct 28.4 L MCV MCHC RDW Plt Count Lymph % (Auto) 12.8 L [place] % (Auto) 9.1 H Lymph # [place] # 1.3 H Baso # 0.2 H Seg Neutrophils % 76.4 H Seg Neuts % (Manual) Lymphocytes % (Manual) Monocytes % (Manual) Nucleated RBC % Seg Neutrophils # 11.0 H Seg Neutrophils # Man Lymphocytes # (Manual) Monocytes # (Manual) PT INR POC ABG pH POC ABG pCO2 POC ABG pO2 Sodium Potassium Chloride Carbon Dioxide BUN 18 H Creatinine Glucose 155 H POC Glucose 133 H Calcium Phosphorus Magnesium AST ALT Alkaline Phosphatase Lactate Dehydrogenase C-Reactive Protein Total Protein Albumin Urine WBC (Auto) Miscellaneous Test 04/24/18 04/24/18 04/25/18 16:32 22:17 06:16 WBC RBC Hgb Hct MCV MCHC RDW Plt Count Lymph % (Auto) [place] % (Auto) Lymph # [place] # Baso # Seg Neutrophils % Seg Neuts % (Manual) Lymphocytes % (Manual) Monocytes % (Manual) Nucleated RBC % Seg Neutrophils # Seg Neutrophils # Man Lymphocytes # (Manual) Monocytes # (Manual) PT INR POC ABG pH POC ABG pCO2 POC ABG pO2 Sodium Potassium Chloride Carbon Dioxide BUN Creatinine Glucose POC Glucose 132 H 124 H 133 H Calcium Phosphorus Magnesium AST ALT Alkaline Phosphatase Lactate Dehydrogenase C-Reactive Protein Total Protein Albumin Urine WBC (Auto) Miscellaneous Test 04/25/18 04/25/18 04/25/18 07:39 11:10 11:31 WBC 11.3 H RBC 3.41 L Hgb 9.8 L Hct 29.5 L MCV MCHC RDW Plt Count Lymph % (Auto) 12.3 L [place] % (Auto) 9.0 H Lymph # [place] # 1.0 H Baso # Seg Neutrophils % 77.3 H Seg Neuts % (Manual) Lymphocytes % (Manual) Monocytes % (Manual) Nucleated RBC % Seg Neutrophils # 8.7 H Seg Neutrophils # Man Lymphocytes # (Manual) Monocytes # (Manual) PT INR POC ABG pH POC ABG pCO2 POC ABG pO2 Sodium Potassium Chloride Carbon Dioxide BUN Creatinine Glucose POC Glucose 141 H 145 H Calcium Phosphorus Magnesium AST ALT Alkaline Phosphatase Lactate Dehydrogenase C-Reactive Protein Total Protein Albumin Urine WBC (Auto) Miscellaneous Test 04/25/18 04/25/18 04/26/18 11:31 16:14 00:45 WBC RBC Hgb Hct MCV MCHC RDW Plt Count Lymph % (Auto) [place] % (Auto) Lymph # [place] # Baso # Seg Neutrophils % Seg Neuts % (Manual) Lymphocytes % (Manual) Monocytes % (Manual) Nucleated RBC % Seg Neutrophils # Seg Neutrophils # Man Lymphocytes # (Manual) Monocytes # (Manual) PT INR POC ABG pH POC ABG pCO2 POC ABG pO2 Sodium Potassium Chloride Carbon Dioxide BUN Creatinine Glucose 153 H POC Glucose 163 H 141 H Calcium Phosphorus Magnesium AST ALT Alkaline Phosphatase Lactate Dehydrogenase C-Reactive Protein Total Protein Albumin Urine WBC (Auto) Miscellaneous Test 04/26/18 04/26/18 04/26/18 06:10 06:10 06:37 WBC 14.5 H RBC 3.60 L Hgb Hct MCV MCHC RDW Plt Count Lymph % (Auto) [place] % (Auto) 9.6 H Lymph # [place] # 1.4 H Baso # 0.2 H Seg Neutrophils % 75.0 H Seg Neuts % (Manual) Lymphocytes % (Manual) Monocytes % (Manual) Nucleated RBC % Seg Neutrophils # 10.9 H Seg Neutrophils # Man Lymphocytes # (Manual) Monocytes # (Manual) PT INR POC ABG pH POC ABG pCO2 POC ABG pO2 Sodium Potassium Chloride Carbon Dioxide BUN Creatinine Glucose 138 H POC Glucose 131 H Calcium Phosphorus Magnesium AST ALT Alkaline Phosphatase Lactate Dehydrogenase C-Reactive Protein Total Protein Albumin Urine WBC (Auto) Miscellaneous Test 04/26/18 04/26/18 04/26/18 11:34 16:10 16:39 WBC RBC Hgb Hct MCV MCHC RDW Plt Count Lymph % (Auto) [place] % (Auto) Lymph # [place] # Baso # Seg Neutrophils % Seg Neuts % (Manual) Lymphocytes % (Manual) Monocytes % (Manual) Nucleated RBC % Seg Neutrophils # Seg Neutrophils # Man Lymphocytes # (Manual) Monocytes # (Manual) PT 17.2 H INR 1.33 H POC ABG pH POC ABG pCO2 POC ABG pO2 Sodium Potassium Chloride Carbon Dioxide BUN Creatinine Glucose POC Glucose 129 H Calcium Phosphorus Magnesium AST ALT Alkaline Phosphatase Lactate Dehydrogenase 266 H C-Reactive Protein Total Protein Albumin Urine WBC (Auto) Miscellaneous Test 04/26/18 04/26/18 04/27/18 16:59 22:39 05:50 WBC RBC Hgb Hct MCV MCHC RDW Plt Count Lymph % (Auto) [place] % (Auto) Lymph # [place] # Baso # Seg Neutrophils % Seg Neuts % (Manual) Lymphocytes % (Manual) Monocytes % (Manual) Nucleated RBC % Seg Neutrophils # Seg Neutrophils # Man Lymphocytes # (Manual) Monocytes # (Manual) PT INR POC ABG pH POC ABG pCO2 POC ABG pO2 Sodium Potassium Chloride 97.4 L Carbon Dioxide BUN Creatinine 0.6 L Glucose 135 H POC Glucose 145 H 187 H Calcium 8.2 L Phosphorus Magnesium AST 97 H ALT 222 H Alkaline Phosphatase 191 H Lactate Dehydrogenase C-Reactive Protein Total Protein Albumin 2.5 L Urine WBC (Auto) Miscellaneous Test 04/27/18 04/27/18 04/27/18 11:52 16:35 22:23 WBC RBC Hgb Hct MCV MCHC RDW Plt Count Lymph % (Auto) [place] % (Auto) Lymph # [place] # Baso # Seg Neutrophils % Seg Neuts % (Manual) Lymphocytes % (Manual) Monocytes % (Manual) Nucleated RBC % Seg Neutrophils # Seg Neutrophils # Man Lymphocytes # (Manual) Monocytes # (Manual) PT INR POC ABG pH POC ABG pCO2 POC ABG pO2 Sodium Potassium Chloride Carbon Dioxide BUN Creatinine Glucose POC Glucose 162 H 136 H 188 H Calcium Phosphorus Magnesium AST ALT Alkaline Phosphatase Lactate Dehydrogenase C-Reactive Protein Total Protein Albumin Urine WBC (Auto) Miscellaneous Test 04/28/18 04/28/18 04/28/18 07:06 09:15 12:11 WBC RBC Hgb Hct MCV MCHC RDW Plt Count Lymph % (Auto) [place] % (Auto) Lymph # [place] # Baso # Seg Neutrophils % Seg Neuts % (Manual) Lymphocytes % (Manual) Monocytes % (Manual) Nucleated RBC % Seg Neutrophils # Seg Neutrophils # Man Lymphocytes # (Manual) Monocytes # (Manual) PT INR POC ABG pH POC ABG pCO2 POC ABG pO2 Sodium Potassium Chloride Carbon Dioxide BUN Creatinine 0.5 L Glucose 149 H POC Glucose 160 H 107 H Calcium 8.0 L Phosphorus Magnesium AST ALT Alkaline Phosphatase Lactate Dehydrogenase C-Reactive Protein Total Protein Albumin Urine WBC (Auto) Miscellaneous Test 04/28/18 04/29/18 21:57 05:59 WBC RBC Hgb Hct MCV MCHC RDW Plt Count Lymph % (Auto) [place] % (Auto) Lymph # [place] # Baso # Seg Neutrophils % Seg Neuts % (Manual) Lymphocytes % (Manual) Monocytes % (Manual) Nucleated RBC % Seg Neutrophils # Seg Neutrophils # Man Lymphocytes # (Manual) Monocytes # (Manual) PT INR POC ABG pH POC ABG pCO2 POC ABG pO2 Sodium Potassium Chloride Carbon Dioxide BUN Creatinine Glucose POC Glucose 134 H 130 H Calcium Phosphorus Magnesium AST ALT Alkaline Phosphatase Lactate Dehydrogenase C-Reactive Protein Total Protein Albumin Urine WBC (Auto) Miscellaneous Test Chest x-ray: report reviewed (S/P left thoracentesis. No pneumothorax.), image reviewed Allied health notes reviewed: nursing
[2018-04-29] MEDS: NORMODYNE IV SCH ×6 (03:11→21:30)
[2018-04-29] MEDS: ZOSYN/NS 4.5GM/100ML 4.5 GM/100 ML VIAL IV SCH ×3 (03:12→17:57)
[2018-04-29] MEDS: DILAUDID IV PRN ×5 (03:53→21:32)
[2018-04-29] MEDS: SODIUM CHLORIDE FLUSH SYRINGE 10 ML IV SCH ×2 (04:04→10:04)
[2018-04-29 06:56] LABS: BUN/Creatinine Ratio 22; Blood Urea Nitrogen 11 mg/dL (7-17); Calcium 8.3 mg/dL (8.4-10.2); Hemolysis Index 3
[2018-04-29] MEDS: BROVANA NEBU IH SCH ×2 (09:25→21:24)
[2018-04-29] MEDS: PULMICORT IH SCH ×2 (09:26→21:24)
[2018-04-29] MEDS: PROTONIX IV SCH ×2 (10:04→21:30)
[2018-04-29] MEDS: ZYVOX 600MG/300ML 600 MG/300 ML BAG IV SCH ×2 (12:03→21:46)
--- NOTE | 2018-04-29 14:18 | Progress Note ---
Assessment and Plan Patient awake. Resting on room air . O2 saturation 97% on room air.No acute respiratory distress.Patient Goes on CPAP during night time. - Patient Problems (1) Pneumoperitoneum Current Visit: Yes Status: Acute Plan to address problem: Appears improved. Last chest xray not reported pneumomediastinum. (2) Asthma Current Visit: Yes Status: Chronic Qualifiers: Asthma severity: unspecified severity Plan to address problem: Brovanna/Budesonide aerosol treatments q 12 hours. Albuterol inhaler 2 puffs po qid PRN for shortness of breath. Continue S/C Lovenox. Continue Protonix. (3) Sepsis Current Visit: Yes Status: Acute Qualifiers: Sepsis type: sepsis due to unspecified organism Qualified Code(s): A41.9 - Sepsis, unspecified organism Plan to address problem: Patient is on Zyvox and zosyn. (4) Pleural effusion on left Current Visit: Yes Status: Acute Plan to address problem: S/P left thoracentesis. Pleural fluid results pending. Subjective Date of service: 04/29/18 Principal diagnosis: Sepsis Syndrome; Acute Hypoxemic Resp Failure; Acute Encephalopathy Interval history: Patient awake. Resting on room air . O2 saturation 97% on room air.No acute respiratory distress.Patient Goes on CPAP during night time. Objective Vital Signs - 12hr 04/29/18 04/29/18 04/29/18 03:11 03:34 03:53 Temperature 99.5 F Pulse Rate 113 H 104 H Pulse Rate [ Anterior Bilateral] Respiratory 20 17 Rate Respiratory Rate [Anterior Bilateral] Blood Pressure 152/83 149/80 Blood Pressure [Left] O2 Sat by Pulse 98 Oximetry 04/29/18 04/29/18 04/29/18 07:35 09:28 09:30 Temperature 98.8 F Pulse Rate 100 H Pulse Rate [ 107 H Anterior Bilateral] Respiratory 20 Rate Respiratory 18 Rate [Anterior Bilateral] Blood Pressure Blood Pressure 146/79 [Left] O2 Sat by Pulse 96 98 Oximetry 04/29/18 04/29/18 09:44 11:15 Temperature 99.6 F Pulse Rate 108 H Pulse Rate [ 108 H Anterior Bilateral] Respiratory 20 Rate Respiratory 18 Rate [Anterior Bilateral] Blood Pressure Blood Pressure 151/71 [Left] O2 Sat by Pulse 98 Oximetry Constitutional: no acute distress, asleep, other (elderly AAF , normocephalic and atraumatic resting in bed , not in any respiratory distress) Eyes: non-icteric ENT: oropharynx moist, other (no thyromegaly) Neck: supple, no lymphadenopathy, no JVD, other (large neck circumference) Effort: mildly labored Ascultation: Bilateral: diminished breath sounds, rhonchi (scant in bases) Percussion: Bilateral: not dull Cardiovascular: regular rate and rhythm, other (No R/M) Gastrointestinal: hypoactive bowel sounds, soft, tender (mild), non-distended, other (no palpable HSM) Integumentary: normal Extremities: no cyanosis, no edema, pulses normal, no ischemia or petechiae Neurologic: normal mental status, non-focal exam (grossly), pupils equal and round, CN II-XII normal, motor strength normal and Psychiatric: mood appropriate, affect normal CBC and BMP: 04/26/18 06:10 04/29/18 05:25 ABG, PT/INR, D-dimer: ABG POC ABG pH 7.519 (7.35-7.45) H 04/10/18 12:59 POC ABG pCO2 29.3 (35-45) L 04/10/18 12:59 POC ABG pO2 63 (80-105) L 04/10/18 12:59 POC ABG HCO3 23.9 04/10/18 12:59 POC ABG Total CO2 25 04/10/18 12:59 POC ABG O2 Sat 94 04/10/18 12:59 PT/INR, D-dimer PT 17.2 Sec. (12.2-14.9) H 04/26/18 16:39 INR 1.33 (0.87-1.13) H 04/26/18 16:39 Abnormal lab findings: Abnormal Labs 04/07/18 04/07/18 04/07/18 00:05 00:05 09:41 WBC 18.4 H 21.3 H RBC Hgb Hct MCV MCHC RDW Plt Count Lymph % (Auto) 4.5 L [place] % (Auto) Lymph # 0.8 L [place] # 1.2 H Baso # Seg Neutrophils % 88.9 H Seg Neuts % (Manual) 85.0 H Lymphocytes % (Manual) 4.0 L Monocytes % (Manual) Nucleated RBC % Seg Neutrophils # 16.4 H Seg Neutrophils # Man 18.1 H Lymphocytes # (Manual) 0.9 L Monocytes # (Manual) 1.1 H PT INR POC ABG pH POC ABG pCO2 POC ABG pO2 Sodium Potassium Chloride Carbon Dioxide BUN Creatinine Glucose 123 H POC Glucose Calcium 8.0 L Phosphorus Magnesium 1.60 L AST 59 H ALT Alkaline Phosphatase Lactate Dehydrogenase C-Reactive Protein Total Protein Albumin 2.9 L Urine WBC (Auto) Miscellaneous Test 04/07/18 04/08/18 04/08/18 09:41 00:20 10:25 WBC 19.2 H RBC Hgb Hct MCV MCHC RDW Plt Count Lymph % (Auto) 5.4 L [place] % (Auto) Lymph # 1.0 L [place] # 1.1 H Baso # Seg Neutrophils % 88.9 H Seg Neuts % (Manual) Lymphocytes % (Manual) Monocytes % (Manual) Nucleated RBC % Seg Neutrophils # 17.1 H Seg Neutrophils # Man Lymphocytes # (Manual) Monocytes # (Manual) PT INR POC ABG pH POC ABG pCO2 POC ABG pO2 Sodium Potassium 3.3 L Chloride 95.1 L Carbon Dioxide 21 L BUN Creatinine Glucose 113 H POC Glucose Calcium Phosphorus Magnesium AST ALT Alkaline Phosphatase Lactate Dehydrogenase C-Reactive Protein Total Protein Albumin 3.6 L Urine WBC (Auto) 45.0 H Miscellaneous Test 04/08/18 04/08/18 04/08/18 10:25 13:33 23:53 WBC 12.8 H RBC Hgb Hct MCV MCHC RDW Plt Count Lymph % (Auto) [place] % (Auto) Lymph # [place] # Baso # Seg Neutrophils % Seg Neuts % (Manual) 97.0 H Lymphocytes % (Manual) 2.0 L Monocytes % (Manual) Nucleated RBC % Seg Neutrophils # Seg Neutrophils # Man 12.4 H Lymphocytes # (Manual) 0.3 L Monocytes # (Manual) PT INR POC ABG pH POC ABG pCO2 POC ABG pO2 Sodium Potassium 3.5 L Chloride Carbon Dioxide BUN Creatinine Glucose 123 H POC Glucose Calcium 7.9 L Phosphorus Magnesium AST 53 H ALT Alkaline Phosphatase Lactate Dehydrogenase C-Reactive Protein 52.00 H Total Protein 6.1 L Albumin 2.7 L Urine WBC (Auto) Miscellaneous Test 04/09/18 04/09/18 04/09/18 04:20 04:20 13:38 WBC 16.2 H RBC Hgb Hct MCV MCHC RDW Plt Count Lymph % (Auto) [place] % (Auto) Lymph # [place] # Baso # Seg Neutrophils % Seg Neuts % (Manual) 89.0 H Lymphocytes % (Manual) 4.0 L Monocytes % (Manual) Nucleated RBC % Seg Neutrophils # Seg Neutrophils # Man 14.4 H Lymphocytes # (Manual) 0.6 L Monocytes # (Manual) PT INR POC ABG pH 7.494 H POC ABG pCO2 31.6 L POC ABG pO2 68 L Sodium Potassium 3.5 L Chloride Carbon Dioxide BUN Creatinine 0.6 L Glucose 117 H POC Glucose Calcium 7.9 L Phosphorus 1.50 L D Magnesium AST ALT Alkaline Phosphatase Lactate Dehydrogenase C-Reactive Protein Total Protein 5.6 L Albumin 2.9 L Urine WBC (Auto) Miscellaneous Test 04/09/18 04/09/18 04/09/18 18:25 21:45 21:45 WBC 21.3 H RBC 3.62 L Hgb Hct MCV MCHC 35 H RDW Plt Count Lymph % (Auto) [place] % (Auto) Lymph # [place] # Baso # Seg Neutrophils % Seg Neuts % (Manual) 90.0 H Lymphocytes % (Manual) 6.0 L Monocytes % (Manual) Nucleated RBC % 1.0 H Seg Neutrophils # Seg Neutrophils # Man 19.2 H Lymphocytes # (Manual) Monocytes # (Manual) 0.9 H PT INR POC ABG pH POC ABG pCO2 POC ABG pO2 Sodium Potassium Chloride Carbon Dioxide BUN 5 L Creatinine 0.5 L Glucose 134 H POC Glucose 155 H Calcium 7.9 L Phosphorus 2.20 L D Magnesium AST ALT Alkaline Phosphatase Lactate Dehydrogenase C-Reactive Protein Total Protein Albumin Urine WBC (Auto) Miscellaneous Test 04/09/18 04/10/18 04/10/18 23:38 04:07 04:07 WBC 20.2 H RBC 3.38 L Hgb 9.4 L Hct 28.9 L MCV MCHC RDW Plt Count Lymph % (Auto) [place] % (Auto) Lymph # [place] # Baso # Seg Neutrophils % Seg Neuts % (Manual) Lymphocytes % (Manual) 6.0 L Monocytes % (Manual) Nucleated RBC % Seg Neutrophils # Seg Neutrophils # Man 10.7 H Lymphocytes # (Manual) Monocytes # (Manual) PT INR POC ABG pH POC ABG pCO2 POC ABG pO2 Sodium Potassium Chloride Carbon Dioxide BUN 6 L Creatinine 0.6 L Glucose 176 H POC Glucose 160 H Calcium 7.7 L Phosphorus Magnesium AST ALT Alkaline Phosphatase Lactate Dehydrogenase C-Reactive Protein Total Protein Albumin Urine WBC (Auto) Miscellaneous Test 04/10/18 04/10/18 04/10/18 05:29 11:55 12:59 WBC RBC Hgb Hct MCV MCHC RDW Plt Count Lymph % (Auto) [place] % (Auto) Lymph # [place] # Baso # Seg Neutrophils % Seg Neuts % (Manual) Lymphocytes % (Manual) Monocytes % (Manual) Nucleated RBC % Seg Neutrophils # Seg Neutrophils # Man Lymphocytes # (Manual) Monocytes # (Manual) PT INR POC ABG pH 7.519 H POC ABG pCO2 29.3 L POC ABG pO2 63 L Sodium Potassium Chloride Carbon Dioxide BUN Creatinine Glucose POC Glucose 171 H 194 H Calcium Phosphorus Magnesium AST ALT Alkaline Phosphatase Lactate Dehydrogenase C-Reactive Protein Total Protein Albumin Urine WBC (Auto) Miscellaneous Test 04/10/18 04/10/18 04/10/18 18:11 18:28 18:28 WBC 22.7 H RBC 3.62 L Hgb Hct MCV MCHC RDW Plt Count Lymph % (Auto) [place] % (Auto) Lymph # [place] # Baso # Seg Neutrophils % Seg Neuts % (Manual) 84.0 H Lymphocytes % (Manual) 7.0 L Monocytes % (Manual) 8.0 H Nucleated RBC % Seg Neutrophils # Seg Neutrophils # Man 19.1 H Lymphocytes # (Manual) Monocytes # (Manual) 1.8 H PT INR POC ABG pH POC ABG pCO2 POC ABG pO2 Sodium Potassium Chloride Carbon Dioxide BUN Creatinine Glucose POC Glucose 118 H Calcium Phosphorus Magnesium AST ALT Alkaline Phosphatase Lactate Dehydrogenase C-Reactive Protein 45.20 H Total Protein Albumin Urine WBC (Auto) Miscellaneous Test 04/10/18 04/10/18 04/11/18 18:28 23:45 03:35 WBC 20.9 H RBC 3.54 L Hgb 10.0 L Hct MCV MCHC RDW Plt Count Lymph % (Auto) [place] % (Auto) Lymph # [place] # Baso # Seg Neutrophils % Seg Neuts % (Manual) 80.0 H Lymphocytes % (Manual) 6.0 L Monocytes % (Manual) Nucleated RBC % Seg Neutrophils # Seg Neutrophils # Man 16.7 H Lymphocytes # (Manual) Monocytes # (Manual) PT INR POC ABG pH POC ABG pCO2 POC ABG pO2 Sodium Potassium 3.5 L Chloride Carbon Dioxide BUN 5 L Creatinine 0.5 L Glucose 108 H POC Glucose 149 H Calcium 8.3 L Phosphorus Magnesium AST ALT Alkaline Phosphatase Lactate Dehydrogenase C-Reactive Protein Total Protein Albumin Urine WBC (Auto) Miscellaneous Test 04/11/18 04/11/18 04/11/18 03:35 06:17 11:29 WBC RBC Hgb Hct MCV MCHC RDW Plt Count Lymph % (Auto) [place] % (Auto) Lymph # [place] # Baso # Seg Neutrophils % Seg Neuts % (Manual) Lymphocytes % (Manual) Monocytes % (Manual) Nucleated RBC % Seg Neutrophils # Seg Neutrophils # Man Lymphocytes # (Manual) Monocytes # (Manual) PT INR POC ABG pH POC ABG pCO2 POC ABG pO2 Sodium Potassium Chloride Carbon Dioxide BUN Creatinine 0.5 L Glucose 143 H POC Glucose 155 H 158 H Calcium 8.2 L Phosphorus Magnesium AST ALT Alkaline Phosphatase Lactate Dehydrogenase C-Reactive Protein Total Protein 6.0 L Albumin 2.2 L Urine WBC (Auto) Miscellaneous Test 04/11/18 04/11/18 04/12/18 18:13 23:51 05:29 WBC RBC Hgb Hct MCV MCHC RDW Plt Count Lymph % (Auto) [place] % (Auto) Lymph # [place] # Baso # Seg Neutrophils % Seg Neuts % (Manual) Lymphocytes % (Manual) Monocytes % (Manual) Nucleated RBC % Seg Neutrophils # Seg Neutrophils # Man Lymphocytes # (Manual) Monocytes # (Manual) PT INR POC ABG pH POC ABG pCO2 POC ABG pO2 Sodium Potassium Chloride Carbon Dioxide BUN Creatinine Glucose POC Glucose 135 H 143 H 150 H Calcium Phosphorus Magnesium AST ALT Alkaline Phosphatase Lactate Dehydrogenase C-Reactive Protein Total Protein Albumin Urine WBC (Auto) Miscellaneous Test 04/12/18 04/12/18 04/13/18 05:40 05:40 00:32 WBC 18.0 H RBC 3.34 L Hgb 9.5 L Hct 28.9 L MCV MCHC RDW Plt Count Lymph % (Auto) 7.4 L [place] % (Auto) 10.8 H Lymph # [place] # 1.9 H Baso # Seg Neutrophils % 81.1 H Seg Neuts % (Manual) Lymphocytes % (Manual) Monocytes % (Manual) Nucleated RBC % Seg Neutrophils # 14.6 H Seg Neutrophils # Man Lymphocytes # (Manual) Monocytes # (Manual) PT INR POC ABG pH POC ABG pCO2 POC ABG pO2 Sodium Potassium Chloride 107.7 H Carbon Dioxide 21 L BUN Creatinine 0.6 L Glucose 140 H POC Glucose 144 H Calcium Phosphorus Magnesium AST ALT Alkaline Phosphatase Lactate Dehydrogenase C-Reactive Protein Total Protein Albumin Urine WBC (Auto) Miscellaneous Test 04/13/18 04/13/18 04/13/18 04:20 04:20 04:20 WBC 18.1 H RBC 3.52 L Hgb 9.8 L Hct 30.1 L MCV MCHC RDW Plt Count Lymph % (Auto) 11.1 L [place] % (Auto) 13.6 H Lymph # [place] # 2.5 H Baso # Seg Neutrophils % 74.4 H Seg Neuts % (Manual) Lymphocytes % (Manual) Monocytes % (Manual) Nucleated RBC % Seg Neutrophils # 13.4 H Seg Neutrophils # Man Lymphocytes # (Manual) Monocytes # (Manual) PT INR POC ABG pH POC ABG pCO2 POC ABG pO2 Sodium Potassium Chloride Carbon Dioxide BUN Creatinine 0.5 L Glucose 142 H POC Glucose Calcium Phosphorus Magnesium AST ALT Alkaline Phosphatase Lactate Dehydrogenase C-Reactive Protein 29.60 H Total Protein Albumin Urine WBC (Auto) Miscellaneous Test 04/13/18 04/13/18 04/13/18 05:35 13:37 23:50 WBC RBC Hgb Hct MCV MCHC RDW Plt Count Lymph % (Auto) [place] % (Auto) Lymph # [place] # Baso # Seg Neutrophils % Seg Neuts % (Manual) Lymphocytes % (Manual) Monocytes % (Manual) Nucleated RBC % Seg Neutrophils # Seg Neutrophils # Man Lymphocytes # (Manual) Monocytes # (Manual) PT INR POC ABG pH POC ABG pCO2 POC ABG pO2 Sodium Potassium Chloride Carbon Dioxide BUN Creatinine Glucose POC Glucose 142 H 160 H Calcium Phosphorus Magnesium AST ALT Alkaline Phosphatase Lactate Dehydrogenase C-Reactive Protein Total Protein Albumin Urine WBC (Auto) Miscellaneous Test Flexitest 1 H 04/14/18 04/14/18 04/14/18 04:00 04:00 05:29 WBC 22.1 H RBC 3.59 L Hgb 9.9 L Hct MCV MCHC RDW Plt Count Lymph % (Auto) [place] % (Auto) Lymph # [place] # Baso # Seg Neutrophils % Seg Neuts % (Manual) 73.0 H Lymphocytes % (Manual) 9.0 L Monocytes % (Manual) 11.0 H Nucleated RBC % Seg Neutrophils # Seg Neutrophils # Man 16.1 H Lymphocytes # (Manual) Monocytes # (Manual) 2.4 H PT INR POC ABG pH POC ABG pCO2 POC ABG pO2 Sodium Potassium Chloride Carbon Dioxide BUN Creatinine Glucose 155 H POC Glucose 133 H Calcium Phosphorus Magnesium 2.50 H AST ALT Alkaline Phosphatase Lactate Dehydrogenase C-Reactive Protein Total Protein Albumin Urine WBC (Auto) Miscellaneous Test 04/14/18 04/14/18 04/14/18 12:47 16:01 23:42 WBC RBC Hgb Hct MCV MCHC RDW Plt Count Lymph % (Auto) [place] % (Auto) Lymph # [place] # Baso # Seg Neutrophils % Seg Neuts % (Manual) Lymphocytes % (Manual) Monocytes % (Manual) Nucleated RBC % Seg Neutrophils # Seg Neutrophils # Man Lymphocytes # (Manual) Monocytes # (Manual) PT INR POC ABG pH POC ABG pCO2 POC ABG pO2 Sodium Potassium Chloride Carbon Dioxide BUN Creatinine Glucose POC Glucose 183 H 153 H 172 H Calcium Phosphorus Magnesium AST ALT Alkaline Phosphatase Lactate Dehydrogenase C-Reactive Protein Total Protein Albumin Urine WBC (Auto) Miscellaneous Test 04/15/18 04/15/18 04/15/18 04:42 04:42 05:49 WBC 21.5 H RBC 3.37 L Hgb 9.4 L Hct 28.9 L MCV MCHC RDW Plt Count 490 H Lymph % (Auto) [place] % (Auto) Lymph # [place] # Baso # Seg Neutrophils % Seg Neuts % (Manual) 77.0 H Lymphocytes % (Manual) 7.0 L Monocytes % (Manual) 10.0 H Nucleated RBC % Seg Neutrophils # Seg Neutrophils # Man 16.6 H Lymphocytes # (Manual) Monocytes # (Manual) 2.2 H PT INR POC ABG pH POC ABG pCO2 POC ABG pO2 Sodium Potassium 3.4 L Chloride 107.5 H Carbon Dioxide 21 L BUN Creatinine Glucose 165 H POC Glucose 147 H Calcium 8.0 L Phosphorus Magnesium 2.40 H AST ALT Alkaline Phosphatase Lactate Dehydrogenase C-Reactive Protein Total Protein Albumin Urine WBC (Auto) Miscellaneous Test 04/15/18 04/15/18 04/16/18 11:17 17:35 00:26 WBC RBC Hgb Hct MCV MCHC RDW Plt Count Lymph % (Auto) [place] % (Auto) Lymph # [place] # Baso # Seg Neutrophils % Seg Neuts % (Manual) Lymphocytes % (Manual) Monocytes % (Manual) Nucleated RBC % Seg Neutrophils # Seg Neutrophils # Man Lymphocytes # (Manual) Monocytes # (Manual) PT INR POC ABG pH POC ABG pCO2 POC ABG pO2 Sodium Potassium Chloride Carbon Dioxide BUN Creatinine Glucose POC Glucose 119 H 169 H 176 H Calcium Phosphorus Magnesium AST ALT Alkaline Phosphatase Lactate Dehydrogenase C-Reactive Protein Total Protein Albumin Urine WBC (Auto) Miscellaneous Test 04/16/18 04/16/18 04/16/18 06:12 06:19 06:21 WBC 20.7 H RBC 3.25 L Hgb 9.0 L Hct MCV MCHC 29 L RDW 16.7 H Plt Count 498 H Lymph % (Auto) [place] % (Auto) Lymph # [place] # Baso # Seg Neutrophils % Seg Neuts % (Manual) 88.0 H Lymphocytes % (Manual) 5.0 L Monocytes % (Manual) Nucleated RBC % Seg Neutrophils # Seg Neutrophils # Man 18.2 H Lymphocytes # (Manual) 1.0 L Monocytes # (Manual) PT INR POC ABG pH POC ABG pCO2 POC ABG pO2 Sodium Potassium Chloride Carbon Dioxide BUN Creatinine Glucose POC Glucose > 500 H 493 H Calcium Phosphorus Magnesium AST ALT Alkaline Phosphatase Lactate Dehydrogenase C-Reactive Protein Total Protein Albumin Urine WBC (Auto) Miscellaneous Test 04/16/18 04/16/18 04/16/18 06:24 08:52 14:05 WBC RBC Hgb Hct MCV MCHC RDW Plt Count Lymph % (Auto) [place] % (Auto) Lymph # [place] # Baso # Seg Neutrophils % Seg Neuts % (Manual) Lymphocytes % (Manual) Monocytes % (Manual) Nucleated RBC % Seg Neutrophils # Seg Neutrophils # Man Lymphocytes # (Manual) Monocytes # (Manual) PT INR POC ABG pH POC ABG pCO2 POC ABG pO2 Sodium Potassium 3.4 L Chloride Carbon Dioxide BUN Creatinine 0.5 L Glucose 166 H POC Glucose 173 H 196 H Calcium 8.2 L Phosphorus Magnesium AST ALT Alkaline Phosphatase Lactate Dehydrogenase C-Reactive Protein Total Protein Albumin Urine WBC (Auto) Miscellaneous Test 04/16/18 04/17/18 04/17/18 17:17 00:06 04:50 WBC 16.0 H RBC 3.12 L Hgb 8.7 L Hct 29.0 L MCV MCHC RDW 16.2 H Plt Count 455 H Lymph % (Auto) 9.4 L [place] % (Auto) 7.7 H Lymph # [place] # 1.2 H Baso # Seg Neutrophils % 81.9 H Seg Neuts % (Manual) Lymphocytes % (Manual) Monocytes % (Manual) Nucleated RBC % Seg Neutrophils # 13.1 H Seg Neutrophils # Man Lymphocytes # (Manual) Monocytes # (Manual) PT INR POC ABG pH POC ABG pCO2 POC ABG pO2 Sodium Potassium Chloride Carbon Dioxide BUN Creatinine Glucose POC Glucose 189 H 190 H Calcium Phosphorus Magnesium AST ALT Alkaline Phosphatase Lactate Dehydrogenase C-Reactive Protein Total Protein Albumin Urine WBC (Auto) Miscellaneous Test 04/17/18 04/17/18 04/17/18 04:50 05:38 07:17 WBC RBC Hgb Hct MCV MCHC RDW Plt Count Lymph % (Auto) [place] % (Auto) Lymph # [place] # Baso # Seg Neutrophils % Seg Neuts % (Manual) Lymphocytes % (Manual) Monocytes % (Manual) Nucleated RBC % Seg Neutrophils # Seg Neutrophils # Man Lymphocytes # (Manual) Monocytes # (Manual) PT INR POC ABG pH POC ABG pCO2 POC ABG pO2 Sodium 136 L Potassium 3.4 L Chloride 96.9 L Carbon Dioxide BUN Creatinine 0.6 L Glucose 167 H POC Glucose 190 H Calcium 7.6 L 8.0 L Phosphorus Magnesium AST ALT Alkaline Phosphatase Lactate Dehydrogenase C-Reactive Protein Total Protein Albumin Urine WBC (Auto) Miscellaneous Test 04/17/18 04/17/18 04/17/18 11:50 18:37 23:53 WBC RBC Hgb Hct MCV MCHC RDW Plt Count Lymph % (Auto) [place] % (Auto) Lymph # [place] # Baso # Seg Neutrophils % Seg Neuts % (Manual) Lymphocytes % (Manual) Monocytes % (Manual) Nucleated RBC % Seg Neutrophils # Seg Neutrophils # Man Lymphocytes # (Manual) Monocytes # (Manual) PT INR POC ABG pH POC ABG pCO2 POC ABG pO2 Sodium Potassium Chloride Carbon Dioxide BUN Creatinine Glucose POC Glucose 163 H 167 H 142 H Calcium Phosphorus Magnesium AST ALT Alkaline Phosphatase Lactate Dehydrogenase C-Reactive Protein Total Protein Albumin Urine WBC (Auto) Miscellaneous Test 04/18/18 04/18/18 04/18/18 05:59 10:05 12:25 WBC RBC Hgb Hct MCV MCHC RDW Plt Count Lymph % (Auto) [place] % (Auto) Lymph # [place] # Baso # Seg Neutrophils % Seg Neuts % (Manual) Lymphocytes % (Manual) Monocytes % (Manual) Nucleated RBC % Seg Neutrophils # Seg Neutrophils # Man Lymphocytes # (Manual) Monocytes # (Manual) PT INR POC ABG pH POC ABG pCO2 POC ABG pO2 Sodium Potassium Chloride Carbon Dioxide BUN Creatinine 0.5 L Glucose 127 H POC Glucose 144 H 171 H Calcium 8.2 L Phosphorus Magnesium AST ALT Alkaline Phosphatase Lactate Dehydrogenase C-Reactive Protein Total Protein Albumin Urine WBC (Auto) Miscellaneous Test 04/18/18 04/18/18 04/19/18 14:54 17:56 00:15 WBC 18.2 H RBC 2.95 L Hgb 8.9 L Hct 29.0 L MCV 98 H MCHC RDW 16.9 H Plt Count Lymph % (Auto) 9.2 L [place] % (Auto) Lymph # [place] # 1.2 H Baso # Seg Neutrophils % 82.7 H Seg Neuts % (Manual) Lymphocytes % (Manual) Monocytes % (Manual) Nucleated RBC % Seg Neutrophils # 15.1 H Seg Neutrophils # Man Lymphocytes # (Manual) Monocytes # (Manual) PT INR POC ABG pH POC ABG pCO2 POC ABG pO2 Sodium Potassium Chloride Carbon Dioxide BUN Creatinine Glucose POC Glucose 169 H 148 H Calcium Phosphorus Magnesium AST ALT Alkaline Phosphatase Lactate Dehydrogenase C-Reactive Protein Total Protein Albumin Urine WBC (Auto) Miscellaneous Test 04/19/18 04/19/18 04/19/18 05:21 08:00 08:00 WBC 18.7 H RBC Hgb Hct MCV MCHC RDW Plt Count 531 H Lymph % (Auto) [place] % (Auto) Lymph # [place] # Baso # Seg Neutrophils % Seg Neuts % (Manual) Lymphocytes % (Manual) Monocytes % (Manual) Nucleated RBC % Seg Neutrophils # Seg Neutrophils # Man Lymphocytes # (Manual) Monocytes # (Manual) PT INR POC ABG pH POC ABG pCO2 POC ABG pO2 Sodium Potassium Chloride Carbon Dioxide BUN 18 H Creatinine 0.5 L Glucose 141 H POC Glucose 146 H Calcium Phosphorus Magnesium AST ALT 76 H Alkaline Phosphatase 142 H Lactate Dehydrogenase C-Reactive Protein Total Protein Albumin 2.4 L Urine WBC (Auto) Miscellaneous Test 04/19/18 04/19/18 04/20/18 12:12 17:41 00:21 WBC RBC Hgb Hct MCV MCHC RDW Plt Count Lymph % (Auto) [place] % (Auto) Lymph # [place] # Baso # Seg Neutrophils % Seg Neuts % (Manual) Lymphocytes % (Manual) Monocytes % (Manual) Nucleated RBC % Seg Neutrophils # Seg Neutrophils # Man Lymphocytes # (Manual) Monocytes # (Manual) PT INR POC ABG pH POC ABG pCO2 POC ABG pO2 Sodium Potassium Chloride Carbon Dioxide BUN Creatinine Glucose POC Glucose 161 H 134 H 159 H Calcium Phosphorus Magnesium AST ALT Alkaline Phosphatase Lactate Dehydrogenase C-Reactive Protein Total Protein Albumin Urine WBC (Auto) Miscellaneous Test 04/20/18 04/20/18 04/20/18 04:00 04:00 07:05 WBC 16.5 H RBC 3.51 L Hgb 9.9 L Hct 30.1 L MCV MCHC RDW Plt Count 530 H Lymph % (Auto) 10.7 L [place] % (Auto) 9.2 H Lymph # [place] # 1.5 H Baso # Seg Neutrophils % 78.5 H Seg Neuts % (Manual) Lymphocytes % (Manual) Monocytes % (Manual) Nucleated RBC % Seg Neutrophils # 13.0 H Seg Neutrophils # Man Lymphocytes # (Manual) Monocytes # (Manual) PT INR POC ABG pH POC ABG pCO2 POC ABG pO2 Sodium Potassium Chloride Carbon Dioxide BUN 19 H Creatinine 0.6 L Glucose 185 H POC Glucose 166 H Calcium Phosphorus Magnesium AST ALT Alkaline Phosphatase Lactate Dehydrogenase C-Reactive Protein Total Protein Albumin Urine WBC (Auto) Miscellaneous Test 04/20/18 04/20/18 04/21/18 12:59 19:06 00:17 WBC RBC Hgb Hct MCV MCHC RDW Plt Count Lymph % (Auto) [place] % (Auto) Lymph # [place] # Baso # Seg Neutrophils % Seg Neuts % (Manual) Lymphocytes % (Manual) Monocytes % (Manual) Nucleated RBC % Seg Neutrophils # Seg Neutrophils # Man Lymphocytes # (Manual) Monocytes # (Manual) PT INR POC ABG pH POC ABG pCO2 POC ABG pO2 Sodium Potassium Chloride Carbon Dioxide BUN Creatinine Glucose POC Glucose 166 H 170 H 178 H Calcium Phosphorus Magnesium AST ALT Alkaline Phosphatase Lactate Dehydrogenase C-Reactive Protein Total Protein Albumin Urine WBC (Auto) Miscellaneous Test 04/21/18 04/21/18 04/21/18 06:15 06:15 06:39 WBC 15.1 H RBC 3.48 L Hgb 9.8 L Hct 30.2 L MCV MCHC RDW Plt Count 499 H Lymph % (Auto) [place] % (Auto) 8.7 H Lymph # [place] # 1.3 H Baso # 0.2 H Seg Neutrophils % 74.7 H Seg Neuts % (Manual) Lymphocytes % (Manual) Monocytes % (Manual) Nucleated RBC % Seg Neutrophils # 11.3 H Seg Neutrophils # Man Lymphocytes # (Manual) Monocytes # (Manual) PT INR POC ABG pH POC ABG pCO2 POC ABG pO2 Sodium Potassium Chloride 108.8 H Carbon Dioxide BUN 18 H Creatinine 0.6 L Glucose 157 H POC Glucose 153 H Calcium 8.0 L Phosphorus Magnesium AST ALT Alkaline Phosphatase Lactate Dehydrogenase C-Reactive Protein Total Protein Albumin Urine WBC (Auto) Miscellaneous Test 04/21/18 04/21/18 04/21/18 11:49 17:07 22:07 WBC RBC Hgb Hct MCV MCHC RDW Plt Count Lymph % (Auto) [place] % (Auto) Lymph # [place] # Baso # Seg Neutrophils % Seg Neuts % (Manual) Lymphocytes % (Manual) Monocytes % (Manual) Nucleated RBC % Seg Neutrophils # Seg Neutrophils # Man Lymphocytes # (Manual) Monocytes # (Manual) PT INR POC ABG pH POC ABG pCO2 POC ABG pO2 Sodium Potassium Chloride Carbon Dioxide BUN Creatinine Glucose POC Glucose 184 H 163 H 169 H Calcium Phosphorus Magnesium AST ALT Alkaline Phosphatase Lactate Dehydrogenase C-Reactive Protein Total Protein Albumin Urine WBC (Auto) Miscellaneous Test 04/22/18 04/22/18 04/22/18 07:00 07:00 08:52 WBC 14.0 H RBC 3.26 L Hgb 9.3 L Hct 28.6 L MCV MCHC RDW Plt Count 460 H Lymph % (Auto) 13.0 L [place] % (Auto) 10.1 H Lymph # [place] # 1.4 H Baso # Seg Neutrophils % 74.4 H Seg Neuts % (Manual) Lymphocytes % (Manual) Monocytes % (Manual) Nucleated RBC % Seg Neutrophils # 10.4 H Seg Neutrophils # Man Lymphocytes # (Manual) Monocytes # (Manual) PT INR POC ABG pH POC ABG pCO2 POC ABG pO2 Sodium Potassium Chloride Carbon Dioxide BUN 19 H Creatinine 0.6 L Glucose 159 H POC Glucose 156 H Calcium Phosphorus Magnesium AST ALT Alkaline Phosphatase Lactate Dehydrogenase C-Reactive Protein Total Protein Albumin Urine WBC (Auto) Miscellaneous Test 04/22/18 04/22/18 04/22/18 12:34 16:20 21:42 WBC RBC Hgb Hct MCV MCHC RDW Plt Count Lymph % (Auto) [place] % (Auto) Lymph # [place] # Baso # Seg Neutrophils % Seg Neuts % (Manual) Lymphocytes % (Manual) Monocytes % (Manual) Nucleated RBC % Seg Neutrophils # Seg Neutrophils # Man Lymphocytes # (Manual) Monocytes # (Manual) PT INR POC ABG pH POC ABG pCO2 POC ABG pO2 Sodium Potassium Chloride Carbon Dioxide BUN Creatinine Glucose POC Glucose 150 H 148 H 134 H Calcium Phosphorus Magnesium AST ALT Alkaline Phosphatase Lactate Dehydrogenase C-Reactive Protein Total Protein Albumin Urine WBC (Auto) Miscellaneous Test 04/23/18 04/23/18 04/23/18 05:45 05:45 08:45 WBC 12.5 H RBC 3.41 L Hgb 9.6 L Hct 29.6 L MCV MCHC RDW Plt Count 441 H Lymph % (Auto) [place] % (Auto) 11.3 H Lymph # [place] # 1.4 H Baso # Seg Neutrophils % 70.2 H Seg Neuts % (Manual) Lymphocytes % (Manual) Monocytes % (Manual) Nucleated RBC % Seg Neutrophils # 9.0 H Seg Neutrophils # Man Lymphocytes # (Manual) Monocytes # (Manual) PT INR POC ABG pH POC ABG pCO2 POC ABG pO2 Sodium Potassium Chloride Carbon Dioxide BUN 19 H Creatinine 0.6 L Glucose 119 H POC Glucose 154 H Calcium Phosphorus Magnesium 2.40 H AST ALT Alkaline Phosphatase Lactate Dehydrogenase C-Reactive Protein Total Protein Albumin Urine WBC (Auto) Miscellaneous Test 04/23/18 04/23/18 04/24/18 11:45 22:09 07:26 WBC RBC Hgb Hct MCV MCHC RDW Plt Count Lymph % (Auto) [place] % (Auto) Lymph # [place] # Baso # Seg Neutrophils % Seg Neuts % (Manual) Lymphocytes % (Manual) Monocytes % (Manual) Nucleated RBC % Seg Neutrophils # Seg Neutrophils # Man Lymphocytes # (Manual) Monocytes # (Manual) PT INR POC ABG pH POC ABG pCO2 POC ABG pO2 Sodium Potassium Chloride Carbon Dioxide BUN Creatinine Glucose POC Glucose 132 H 113 H 164 H Calcium Phosphorus Magnesium AST ALT Alkaline Phosphatase Lactate Dehydrogenase C-Reactive Protein Total Protein Albumin Urine WBC (Auto) Miscellaneous Test 04/24/18 04/24/18 04/24/18 08:30 08:30 11:27 WBC 14.4 H RBC 3.30 L Hgb 9.6 L Hct 28.4 L MCV MCHC RDW Plt Count Lymph % (Auto) 12.8 L [place] % (Auto) 9.1 H Lymph # [place] # 1.3 H Baso # 0.2 H Seg Neutrophils % 76.4 H Seg Neuts % (Manual) Lymphocytes % (Manual) Monocytes % (Manual) Nucleated RBC % Seg Neutrophils # 11.0 H Seg Neutrophils # Man Lymphocytes # (Manual) Monocytes # (Manual) PT INR POC ABG pH POC ABG pCO2 POC ABG pO2 Sodium Potassium Chloride Carbon Dioxide BUN 18 H Creatinine Glucose 155 H POC Glucose 133 H Calcium Phosphorus Magnesium AST ALT Alkaline Phosphatase Lactate Dehydrogenase C-Reactive Protein Total Protein Albumin Urine WBC (Auto) Miscellaneous Test 04/24/18 04/24/18 04/25/18 16:32 22:17 06:16 WBC RBC Hgb Hct MCV MCHC RDW Plt Count Lymph % (Auto) [place] % (Auto) Lymph # [place] # Baso # Seg Neutrophils % Seg Neuts % (Manual) Lymphocytes % (Manual) Monocytes % (Manual) Nucleated RBC % Seg Neutrophils # Seg Neutrophils # Man Lymphocytes # (Manual) Monocytes # (Manual) PT INR POC ABG pH POC ABG pCO2 POC ABG pO2 Sodium Potassium Chloride Carbon Dioxide BUN Creatinine Glucose POC Glucose 132 H 124 H 133 H Calcium Phosphorus Magnesium AST ALT Alkaline Phosphatase Lactate Dehydrogenase C-Reactive Protein Total Protein Albumin Urine WBC (Auto) Miscellaneous Test 04/25/18 04/25/18 04/25/18 07:39 11:10 11:31 WBC 11.3 H RBC 3.41 L Hgb 9.8 L Hct 29.5 L MCV MCHC RDW Plt Count Lymph % (Auto) 12.3 L [place] % (Auto) 9.0 H Lymph # [place] # 1.0 H Baso # Seg Neutrophils % 77.3 H Seg Neuts % (Manual) Lymphocytes % (Manual) Monocytes % (Manual) Nucleated RBC % Seg Neutrophils # 8.7 H Seg Neutrophils # Man Lymphocytes # (Manual) Monocytes # (Manual) PT INR POC ABG pH POC ABG pCO2 POC ABG pO2 Sodium Potassium Chloride Carbon Dioxide BUN Creatinine Glucose POC Glucose 141 H 145 H Calcium Phosphorus Magnesium AST ALT Alkaline Phosphatase Lactate Dehydrogenase C-Reactive Protein Total Protein Albumin Urine WBC (Auto) Miscellaneous Test 04/25/18 04/25/18 04/26/18 11:31 16:14 00:45 WBC RBC Hgb Hct MCV MCHC RDW Plt Count Lymph % (Auto) [place] % (Auto) Lymph # [place] # Baso # Seg Neutrophils % Seg Neuts % (Manual) Lymphocytes % (Manual) Monocytes % (Manual) Nucleated RBC % Seg Neutrophils # Seg Neutrophils # Man Lymphocytes # (Manual) Monocytes # (Manual) PT INR POC ABG pH POC ABG pCO2 POC ABG pO2 Sodium Potassium Chloride Carbon Dioxide BUN Creatinine Glucose 153 H POC Glucose 163 H 141 H Calcium Phosphorus Magnesium AST ALT Alkaline Phosphatase Lactate Dehydrogenase C-Reactive Protein Total Protein Albumin Urine WBC (Auto) Miscellaneous Test 04/26/18 04/26/18 04/26/18 06:10 06:10 06:37 WBC 14.5 H RBC 3.60 L Hgb Hct MCV MCHC RDW Plt Count Lymph % (Auto) [place] % (Auto) 9.6 H Lymph # [place] # 1.4 H Baso # 0.2 H Seg Neutrophils % 75.0 H Seg Neuts % (Manual) Lymphocytes % (Manual) Monocytes % (Manual) Nucleated RBC % Seg Neutrophils # 10.9 H Seg Neutrophils # Man Lymphocytes # (Manual) Monocytes # (Manual) PT INR POC ABG pH POC ABG pCO2 POC ABG pO2 Sodium Potassium Chloride Carbon Dioxide BUN Creatinine Glucose 138 H POC Glucose 131 H Calcium Phosphorus Magnesium AST ALT Alkaline Phosphatase Lactate Dehydrogenase C-Reactive Protein Total Protein Albumin Urine WBC (Auto) Miscellaneous Test 04/26/18 04/26/18 04/26/18 11:34 16:10 16:39 WBC RBC Hgb Hct MCV MCHC RDW Plt Count Lymph % (Auto) [place] % (Auto) Lymph # [place] # Baso # Seg Neutrophils % Seg Neuts % (Manual) Lymphocytes % (Manual) Monocytes % (Manual) Nucleated RBC % Seg Neutrophils # Seg Neutrophils # Man Lymphocytes # (Manual) Monocytes # (Manual) PT 17.2 H INR 1.33 H POC ABG pH POC ABG pCO2 POC ABG pO2 Sodium Potassium Chloride Carbon Dioxide BUN Creatinine Glucose POC Glucose 129 H Calcium Phosphorus Magnesium AST ALT Alkaline Phosphatase Lactate Dehydrogenase 266 H C-Reactive Protein Total Protein Albumin Urine WBC (Auto) Miscellaneous Test 04/26/18 04/26/18 04/27/18 16:59 22:39 05:50 WBC RBC Hgb Hct MCV MCHC RDW Plt Count Lymph % (Auto) [place] % (Auto) Lymph # [place] # Baso # Seg Neutrophils % Seg Neuts % (Manual) Lymphocytes % (Manual) Monocytes % (Manual) Nucleated RBC % Seg Neutrophils # Seg Neutrophils # Man Lymphocytes # (Manual) Monocytes # (Manual) PT INR POC ABG pH POC ABG pCO2 POC ABG pO2 Sodium Potassium Chloride 97.4 L Carbon Dioxide BUN Creatinine 0.6 L Glucose 135 H POC Glucose 145 H 187 H Calcium 8.2 L Phosphorus Magnesium AST 97 H ALT 222 H Alkaline Phosphatase 191 H Lactate Dehydrogenase C-Reactive Protein Total Protein Albumin 2.5 L Urine WBC (Auto) Miscellaneous Test 04/27/18 04/27/18 04/27/18 11:52 16:35 22:23 WBC RBC Hgb Hct MCV MCHC RDW Plt Count Lymph % (Auto) [place] % (Auto) Lymph # [place] # Baso # Seg Neutrophils % Seg Neuts % (Manual) Lymphocytes % (Manual) Monocytes % (Manual) Nucleated RBC % Seg Neutrophils # Seg Neutrophils # Man Lymphocytes # (Manual) Monocytes # (Manual) PT INR POC ABG pH POC ABG pCO2 POC ABG pO2 Sodium Potassium Chloride Carbon Dioxide BUN Creatinine Glucose POC Glucose 162 H 136 H 188 H Calcium Phosphorus Magnesium AST ALT Alkaline Phosphatase Lactate Dehydrogenase C-Reactive Protein Total Protein Albumin Urine WBC (Auto) Miscellaneous Test 04/28/18 04/28/18 04/28/18 07:06 09:15 12:11 WBC RBC Hgb Hct MCV MCHC RDW Plt Count Lymph % (Auto) [place] % (Auto) Lymph # [place] # Baso # Seg Neutrophils % Seg Neuts % (Manual) Lymphocytes % (Manual) Monocytes % (Manual) Nucleated RBC % Seg Neutrophils # Seg Neutrophils # Man Lymphocytes # (Manual) Monocytes # (Manual) PT INR POC ABG pH POC ABG pCO2 POC ABG pO2 Sodium Potassium Chloride Carbon Dioxide BUN Creatinine 0.5 L Glucose 149 H POC Glucose 160 H 107 H Calcium 8.0 L Phosphorus Magnesium AST ALT Alkaline Phosphatase Lactate Dehydrogenase C-Reactive Protein Total Protein Albumin Urine WBC (Auto) Miscellaneous Test 04/28/18 04/29/18 04/29/18 21:57 05:25 05:59 WBC RBC Hgb Hct MCV MCHC RDW Plt Count Lymph % (Auto) [place] % (Auto) Lymph # [place] # Baso # Seg Neutrophils % Seg Neuts % (Manual) Lymphocytes % (Manual) Monocytes % (Manual) Nucleated RBC % Seg Neutrophils # Seg Neutrophils # Man Lymphocytes # (Manual) Monocytes # (Manual) PT INR POC ABG pH POC ABG pCO2 POC ABG pO2 Sodium Potassium Chloride Carbon Dioxide BUN Creatinine 0.5 L Glucose 122 H POC Glucose 134 H 130 H Calcium 8.3 L Phosphorus Magnesium AST ALT Alkaline Phosphatase Lactate Dehydrogenase C-Reactive Protein Total Protein Albumin Urine WBC (Auto) Miscellaneous Test 04/29/18 12:14 WBC RBC Hgb Hct MCV MCHC RDW Plt Count Lymph % (Auto) [place] % (Auto) Lymph # [place] # Baso # Seg Neutrophils % Seg Neuts % (Manual) Lymphocytes % (Manual) Monocytes % (Manual) Nucleated RBC % Seg Neutrophils # Seg Neutrophils # Man Lymphocytes # (Manual) Monocytes # (Manual) PT INR POC ABG pH POC ABG pCO2 POC ABG pO2 Sodium Potassium Chloride Carbon Dioxide BUN Creatinine Glucose POC Glucose 171 H Calcium Phosphorus Magnesium AST ALT Alkaline Phosphatase Lactate Dehydrogenase C-Reactive Protein Total Protein Albumin Urine WBC (Auto) Miscellaneous Test Allied health notes reviewed: nursing
--- NOTE | 2018-04-29 15:01 | Progress Note ---
Subjective Patient Reports: Positive: feels better, still having pain, flatus Narrative: doing fine abd soft NPO on TPN , will cont same respiratory fine . Objective Vital Signs - 12hr 04/29/18 04/29/18 04/29/18 03:11 03:34 03:53 Temperature 99.5 F Pulse Rate 113 H 104 H Pulse Rate [ Anterior Bilateral] Respiratory 20 17 Rate Respiratory Rate [Anterior Bilateral] Blood Pressure 152/83 149/80 Blood Pressure [Left] O2 Sat by Pulse 98 Oximetry 04/29/18 04/29/18 04/29/18 07:35 09:28 09:30 Temperature 98.8 F Pulse Rate 100 H Pulse Rate [ 107 H Anterior Bilateral] Respiratory 20 Rate Respiratory 18 Rate [Anterior Bilateral] Blood Pressure Blood Pressure 146/79 [Left] O2 Sat by Pulse 96 98 Oximetry 04/29/18 04/29/18 09:44 11:15 Temperature 99.6 F Pulse Rate 108 H Pulse Rate [ 108 H Anterior Bilateral] Respiratory 20 Rate Respiratory 18 Rate [Anterior Bilateral] Blood Pressure Blood Pressure 151/71 [Left] O2 Sat by Pulse 98 Oximetry - Labs 04/26/18 06:10 04/29/18 05:25 Diabetes panel 04/29/18 Range/Units 05:25 Sodium 137 (137-145) mmol/L Potassium 4.0 (3.6-5.0) mmol/L Chloride 99.5 (98-107) mmol/L Carbon Dioxide 23 (22-30) mmol/L BUN 11 (7-17) mg/dL Creatinine 0.5 L (0.7-1.2) mg/dL Glucose 122 H (65-100) mg/dL Calcium 8.3 L (8.4-10.2) mg/dL Calcium panel 04/29/18 Range/Units 05:25 Calcium 8.3 L (8.4-10.2) mg/dL Phosphorus 3.60 (2.5-4.5) mg/dL Pituitary panel 04/29/18 Range/Units 05:25 Sodium 137 (137-145) mmol/L Potassium 4.0 (3.6-5.0) mmol/L Chloride 99.5 (98-107) mmol/L Carbon Dioxide 23 (22-30) mmol/L BUN 11 (7-17) mg/dL Creatinine 0.5 L (0.7-1.2) mg/dL Glucose 122 H (65-100) mg/dL Calcium 8.3 L (8.4-10.2) mg/dL Adrenal panel 04/29/18 Range/Units 05:25 Sodium 137 (137-145) mmol/L Potassium 4.0 (3.6-5.0) mmol/L Chloride 99.5 (98-107) mmol/L Carbon Dioxide 23 (22-30) mmol/L BUN 11 (7-17) mg/dL Creatinine 0.5 L (0.7-1.2) mg/dL Glucose 122 H (65-100) mg/dL Calcium 8.3 L (8.4-10.2) mg/dL
--- NOTE | 2018-04-29 16:18 | Progress Note ---
Assessment and Plan Assessment and plan: Hospitalist Consulted for Medical management of hypertension on 04/17/18, Patient admitted on 04/07/[address] Wynn Ms. Machado is a 58 y.o. woman with a history of obesity s/p lap sleeve gastrectomy with hiatal hernia repair and partial fundoplication 03/30/18, presents to ER with abdominal pains on 04/07/18. She was found to have perforation and under the following: DATE OF PROCEDURE 04/07/18 PREOPERATIVE DIAGNOSES: Pneumoperitoneum POSTOPERATIVE DIAGNOSES: 1. Gastric perforation SURGEON: Dr. Estes SPECIAL OFFICER [employer]: Dony Perez DO MEDIA MARKETING SPECIALIST PROCEDURE: 1. Diagnostic laparoscopy 2. Repair of gastric perforation 3. Abdominal washout 4. intraoperative EGD /Hypertension. Monitor BP, stable On Clonidine patch and iv prn Labetalol, Also Hydraazine iv prn. /Sepsis due to intraabdominal infection and PNA. - treated with cefepime and flagyl along with zosyn - total 17 days of abx - S/p vanco IV x 10 days until 04/19 for MSSA - monitored fever and leukocytosis off abx - ID Physician managing, restarted abx today again as cont to spike fever /Gastric perforation s/p exploratory lap, repair of perforation on 04/07/18. Surg is attending, managing, on TPN /Pneumoperitoneum due to gastric perforation, s/p repair of perforation on 04/07/18- per surgery /Acute respiratory failure with Pleural Effusion s/p thoracentesis 04/26/18 On supplemental Oxygen by [facility] Pulmonology is managing /Bilateral pneumonia vs atelectasis, completed abx /Pleural Effusion s/p thoracentesis Pulmonology is followi /Hypokalemia, resolved /Obstructive seep apnea, CPAP at bedtime Full code status Disposition: SNF when cleared by surgery, ID and pulmonology History Interval history: Patient was seen and examined. Follow-up on current diagnosis of hypertension. Overnight uneventful. Patient denies any chest pain, shortness breath, nausea/ vomiting or severe headaches. Imaging, nursing note, chart, labs and old chart reviewed. Discussed with patient. Hospitalist Physical - Physical exam Narrative exam: GEN: WDWN, bmi 34, NAD, Awake, Alert, Orientated HEENT: NCAT, EOMI, PERRL, OP Clear NECK: supple, no adenopathy, no thyromegaly, no JVD CVS/HEART: RRR, normal S1S2, pulses present bilaterally CHEST/LUNGS: diminished bs bilateral, Symmetrical chest expansion, reduced air entry bilaterally GI/Abdomen: soft,drain in place good bowel sounds, no guarding or rebound /Bladder: no suprapubic tenderness, no CVA or paraspinal tenderness EXT/Skin: no c/c/e, no obvious rash MSK: FROM x 4 Neuro: CN 2-12 grossly intact, no new focal deficits Psych: calm - Constitutional Vitals: Temp Pulse Resp BP Pulse Ox 99.6 F 108 H 20 151/71 98 04/29/18 11:15 04/29/18 11:15 04/29/18 11:15 04/29/18 11:15 04/29/18 11:15 General appearance: Present: no acute distress, obese Results - Labs CBC & Chem 7: 04/26/18 06:10 04/29/18 05:25 Labs: Laboratory Last Values WBC 14.5 K/mm3 (4.5-11.0) H 04/26/18 06:10 RBC 3.60 M/mm3 (3.65-5.03) L 04/26/18 06:10 Hgb 10.2 gm/dl (10.1-14.3) 04/26/18 06:10 Hct 30.7 % (30.3-42.9) 04/26/18 06:10 MCV 85 fl (79-97) 04/26/18 06:10 MCH 28 pg (28-32) 04/26/18 06:10 MCHC 33 % (30-34) 04/26/18 06:10 RDW 14.6 % (13.2-15.2) 04/26/18 06:10 Plt Count 347 K/mm3 (140-440) 04/26/18 06:10 Lymph % (Auto) 14.0 % (13.4-35.0) 04/26/18 06:10 [place] % (Auto) 9.6 % (0.0-7.3) H 04/26/18 06:10 Eos % (Auto) 0.2 % (0.0-4.3) 04/26/18 06:10 Baso % (Auto) 1.2 % (0.0-1.8) 04/26/18 06:10 Lymph # 2.0 K/mm3 (1.2-5.4) 04/26/18 06:10 [place] # 1.4 K/mm3 (0.0-0.8) H 04/26/18 06:10 Eos # 0.0 K/mm3 (0.0-0.4) 04/26/18 06:10 Baso # 0.2 K/mm3 (0.0-0.1) H 04/26/18 06:10 Add Manual Diff Complete 04/16/18 06:12 Total Counted 100 04/16/18 06:12 Seg Neutrophils % 75.0 % (40.0-70.0) H 04/26/18 06:10 Seg Neuts % (Manual) 88.0 % (40.0-70.0) H 04/16/18 06:12 Band Neutrophils % 1.0 % 04/16/18 06:12 Lymphocytes % (Manual) 5.0 % (13.4-35.0) L 04/16/18 06:12 Reactive Lymphs % (Man) 0 % 04/16/18 06:12 Monocytes % (Manual) 2.0 % (0.0-7.3) 04/16/18 06:12 Eosinophils % (Manual) 0 % (0.0-4.3) 04/16/18 06:12 Basophils % (Manual) 0 % (0.0-1.8) 04/16/18 06:12 Metamyelocytes % 4.0 % 04/16/18 06:12 Myelocytes % 0 % 04/16/18 06:12 Promyelocytes % 0 % 04/16/18 06:12 Blast Cells % 0 % 04/16/18 06:12 Nucleated RBC % Not Reportable 04/16/18 06:12 Seg Neutrophils # 10.9 K/mm3 (1.8-7.7) H 04/26/18 06:10 Seg Neutrophils # Man 18.2 K/mm3 (1.8-7.7) H 04/16/18 06:12 Band Neutrophils # 0.2 K/mm3 04/16/18 06:12 Lymphocytes # (Manual) 1.0 K/mm3 (1.2-5.4) L 04/16/18 06:12 Abs React Lymphs (Man) 0.0 K/mm3 04/16/18 06:12 Monocytes # (Manual) 0.4 K/mm3 (0.0-0.8) 04/16/18 06:12 Eosinophils # (Manual) 0.0 K/mm3 (0.0-0.4) 04/16/18 06:12 Basophils # (Manual) 0.0 K/mm3 (0.0-0.1) 04/16/18 06:12 Metamyelocytes # 0.8 K/mm3 04/16/18 06:12 Myelocytes # 0.0 K/mm3 04/16/18 06:12 Promyelocytes # 0.0 K/mm3 04/16/18 06:12 Blast Cells # 0.0 K/mm3 04/16/18 06:12 WBC Morphology Not Reportable 04/16/18 06:12 Hypersegmented Neuts Not Reportable 04/16/18 06:12 Hyposegmented Neuts Not Reportable 04/16/18 06:12 Hypogranular Neuts Not Reportable 04/16/18 06:12 Smudge Cells Not Reportable 04/16/18 06:12 Toxic Granulation Not Reportable 04/16/18 06:12 Toxic Vacuolation Not Reportable 04/16/18 06:12 Dohle Bodies Not Reportable 04/16/18 06:12 Pelger-Huet Anomaly Not Reportable 04/16/18 06:12 Narendra Rods Not Reportable 04/16/18 06:12 Platelet Estimate Cons 04/16/18 06:12 Clumped Platelets Not Reportable 04/16/18 06:12 Plt Clumps, EDTA Not Reportable 04/16/18 06:12 Large Platelets Not Reportable 04/16/18 06:12 Giant Platelets Not Reportable 04/16/18 06:12 Platelet Satelliting Not Reportable 04/16/18 06:12 Plt Morphology Comment Not Reportable 04/16/18 06:12 RBC Morphology Not Reportable 04/16/18 06:12 Dimorphic RBCs Not Reportable 04/16/18 06:12 Polychromasia Few 04/16/18 06:12 Hypochromasia Not Reportable 04/16/18 06:12 Poikilocytosis Not Reportable 04/16/18 06:12 Anisocytosis 1+ 04/16/18 06:12 Microcytosis Not Reportable 04/16/18 06:12 Macrocytosis Not Reportable 04/16/18 06:12 Spherocytes Not Reportable 04/16/18 06:12 Pappenheimer Bodies Not Reportable 04/16/18 06:12 Sickle Cells Not Reportable 04/16/18 06:12 Target Cells Not Reportable 04/16/18 06:12 Tear Drop Cells Not Reportable 04/16/18 06:12 Ovalocytes Not Reportable 04/16/18 06:12 Helmet Cells Not Reportable 04/16/18 06:12 [place] Bodies Not Reportable 04/16/18 06:12 [place] Rings Not Reportable 04/16/18 06:12 [place] Cells Not Reportable 04/16/18 06:12 Bite Cells Not Reportable 04/16/18 06:12 Crenated Cell Not Reportable 04/16/18 06:12 Elliptocytes Not Reportable 04/16/18 06:12 Acanthocytes (Spur) Not Reportable 04/16/18 06:12 Rouleaux Not Reportable 04/16/18 06:12 Hemoglobin C Crystals Not Reportable 04/16/18 06:12 Schistocytes Not Reportable 04/16/18 06:12 Malaria parasites Not Reportable 04/16/18 06:12 Giorgio Bodies Not Reportable 04/16/18 06:12 Hem Pathologist Commnt No 04/16/18 06:12 PT 17.2 Sec. (12.2-14.9) H 04/26/18 16:39 INR 1.33 (0.87-1.13) H 04/26/18 16:39 APTT 29.0 Sec. (24.2-36.6) 04/07/18 16:28 POC ABG pH 7.519 (7.35-7.45) H 04/10/18 12:59 POC ABG pCO2 29.3 (35-45) L 04/10/18 12:59 POC ABG pO2 63 (80-105) L 04/10/18 12:59 POC ABG HCO3 23.9 04/10/18 12:59 POC ABG Total CO2 25 04/10/18 12:59 POC ABG O2 Sat 94 04/10/18 12:59 POC ABG Base Excess 1 04/10/18 12:59 VBG pH 7.413 (7.320-7.420) 04/07/18 09:41 FiO2 28 % 04/10/18 12:59 Sodium 137 mmol/L (137-145) 04/29/18 05:25 Potassium 4.0 mmol/L (3.6-5.0) 04/29/18 05:25 Chloride 99.5 mmol/L (98-107) 04/29/18 05:25 Carbon Dioxide 23 mmol/L (22-30) 04/29/18 05:25 Anion Gap 19 mmol/L 04/29/18 05:25 BUN 11 mg/dL (7-17) 04/29/18 05:25 Creatinine 0.5 mg/dL (0.7-1.2) L 04/29/18 05:25 Estimated GFR > 60 ml/min 04/29/18 05:25 BUN/Creatinine Ratio 22 % 04/29/18 05:25 Glucose 122 mg/dL (65-100) H 04/29/18 05:25 POC Glucose 171 (70-105) H 04/29/18 12:14 Lactic Acid 0.80 mmol/L (0.7-2.0) 04/08/18 13:33 Calcium 8.3 mg/dL (8.4-10.2) L 04/29/18 05:25 Phosphorus 3.60 mg/dL (2.5-4.5) 04/29/18 05:25 Magnesium 1.80 mg/dL (1.7-2.3) 04/29/18 05:25 Total Bilirubin 0.40 mg/dL (0.1-1.2) 04/27/18 05:50 AST 97 units/L (5-40) H 04/27/18 05:50 ALT 222 units/L (7-56) H 04/27/18 05:50 Alkaline Phosphatase 191 units/L (35-129) H 04/27/18 05:50 Lactate Dehydrogenase 266 units/L (91-180) H 04/26/18 16:10 Total Creatine Kinase 37 units/L (30-135) 04/19/18 12:55 CK-MB (CK-2) 1.0 ng/mL (0.0-4.0) 04/19/18 12:55 CK-MB (CK-2) Rel Index 2.7 (0-4) 04/19/18 12:55 Troponin T < 0.010 ng/mL (0.00-0.029) 04/19/18 12:55 C-Reactive Protein 29.60 mg/dL (0.00-1.30) H 04/13/18 04:20 Total Protein 7.5 g/dL (6.3-8.2) 04/27/18 05:50 Albumin 2.5 g/dL (3.9-5) L 04/27/18 05:50 Albumin/Globulin Ratio 0.5 % 04/27/18 05:50 Triglycerides 114 mg/dL (2-149) 04/16/18 08:52 Urine Color Yellow (Yellow) 04/24/18 15:20 Urine Turbidity Clear (Clear) 04/24/18 15:20 Urine pH 6.0 (5.0-7.0) 04/24/18 15:20 Ur Specific [place] 1.023 (1.003-1.030) 04/24/18 15:20 Urine Protein 30 mg/dl mg/dL (Negative) 04/24/18 15:20 Urine Glucose (UA) Neg mg/dL (Negative) 04/24/18 15:20 Urine Ketones Neg mg/dL (Negative) 04/24/18 15:20 Urine Blood Neg (Negative) 04/24/18 15:20 Urine Nitrite Neg (Negative) 04/24/18 15:20 Urine Bilirubin Neg (Negative) 04/24/18 15:20 Urine Urobilinogen < 2.0 mg/dL (<2.0) 04/24/18 15:20 Ur Leukocyte Esterase Neg (Negative) 04/24/18 15:20 Urine WBC (Auto) 3.0 /HPF (0.0-6.0) 04/24/18 15:20 Urine RBC (Auto) 4.0 /HPF (0.0-6.0) 04/24/18 15:20 U Epithel Cells (Auto) 4.0 /HPF (0-13.0) 04/24/18 15:20 Urine Mucus Few /HPF 04/24/18 15:20 Vancomycin Trough 13.2 ug/mL (5.0-20.0) 04/14/18 15:51 Miscellaneous Test Flexitest 1 H 04/13/18 13:37
[2018-04-29] MEDS: ZOFRAN IV PRN (17:56)
[2018-04-29] MEDS ORDERED: TPN ADULT 1,800 ML IV SCH (20:00)
[2018-04-29] MEDS: LOVENOX SUB-Q SCH (21:30)
[2018-04-30] MEDS: ZOFRAN IV PRN ×3 (01:31→18:32)
[2018-04-30] MEDS: DILAUDID IV PRN ×5 (01:32→22:46)
[2018-04-30] MEDS: SODIUM CHLORIDE FLUSH SYRINGE 10 ML IV SCH ×3 (01:33→22:58)
[2018-04-30] MEDS: NORMODYNE IV SCH ×6 (03:33→22:52)
[2018-04-30] MEDS: TYLENOL PR PRN (03:35)
[2018-04-30] MEDS: ZOSYN/NS 4.5GM/100ML 4.5 GM/100 ML VIAL IV SCH ×3 (03:56→18:32)
[2018-04-30] MEDS: APRESOLINE IV PRN (04:01)
[2018-04-30] MEDS: ATIVAN IV PRN (04:20)
[2018-04-30] MEDS: PULMICORT IH SCH ×2 (08:01→20:32)
[2018-04-30] MEDS: BROVANA NEBU IH SCH ×2 (08:01→20:32)
[2018-04-30 08:56] LABS: BUN/Creatinine Ratio 24; Blood Urea Nitrogen 12 mg/dL (7-17); Calcium 8.6 mg/dL (8.4-10.2); Hemolysis Index 12
[2018-04-30] MEDS: ZYVOX 600MG/300ML 600 MG/300 ML BAG IV SCH ×2 (10:05→22:57)
[2018-04-30] MEDS: PROTONIX IV SCH ×2 (10:06→22:49)
[2018-04-30 12:02] LABS: Basophils % (Auto) 0.5 % (0.0-1.8); Eosinophils # (Auto) 0.1 K/mm3 (0.0-0.4); Eosinophils % (Auto) 2.1 % (0.0-4.3); Hemoglobin 9.1 gm/dl (10.1-14.3); Lymphocytes # (Auto) 1.4 K/mm3 (1.2-5.4); Lymphocytes % (Auto) 22.2 % (13.4-35.0); Mean Corpuscular HGB Conc 34 % (30-34); Mean Corpuscular Hemoglobin 29 pg (28-32); Mean Corpuscular Volume 86 fl (79-97); Monocytes # (Auto) 0.8 K/mm3 (0.0-0.8); Monocytes % (Auto) 11.8 % (0.0-7.3); Platelet Count 236 K/mm3 (140-440); Red Blood Count 3.16 M/mm3 (3.65-5.03); Red Cell Distribution Width 14.3 % (13.2-15.2)
--- NOTE | 2018-04-30 12:54 | Progress Note ---
Assessment and Plan Sepsis syndrome with altered mental status in the setting of the systemic inflammatory response syndrome. Mild metabolic acidosis Perforated abdominal viscus status post exploratory laparotomy and repair. Obesity. Atypical Chest Pain Obstructive sleep apnea according to the history. Acute encephalopathy, presumably toxic metabolic. History of hypertension. Arthritis. Gastroesophageal reflux disease. Morbid obesity. Acute hypoxemic respiratory failure (CT abd reveals loculated looking left pleural effusion) - in light of persistent fevers and hypoxemia will do a thoracentesis and cultures (hopefully also therapeutic) - continue supplemental oxygen to keep sats > 90% - prn analgesia while watching for respiratory depression - to repeat CT abd/pelvis to evaluate for persistent leak +/- IR intervention - anti-infectives per ID recs (following off AB's) - continue PICC line for TPN - continue PT/OT - continue GI & VTE prophylaxis - continue bronchodilators for COPD (brovana and changed duonebs to prn) - continue BIPAP scheduled qhs for [place] with prn daytime use - wound care per WCT / RN and surgeon - continue other care per attending / other consultants - SNF tentatively once cleared by surgery team ...... re-evaluate in am & prn ...35' Subjective Date of service: 04/30/18 Principal diagnosis: Sepsis Syndrome; Acute Hypoxemic Resp Failure; Acute Encephalopathy Interval history: Patient is seen today for: Sepsis Syndrome; Acute Hypoxemic Resp Failure; Acute Encephalopathy Seen and examined at bedside; 24hour events reviewed; nursing and respiratory care staff consulted; no adverse overnight events reported to me; Objective Vital Signs - 12hr 04/30/18 04/30/18 04/30/18 02:00 04:24 08:01 Temperature 100.9 F H 99.3 F Pulse Rate 110 H 99 H Pulse Rate [ 78 Anterior Bilateral] Respiratory 20 20 Rate Respiratory 18 Rate [Anterior Bilateral] Blood Pressure 135/68 Blood Pressure 146/78 [Left] O2 Sat by Pulse 98 96 Oximetry 04/30/18 04/30/18 04/30/18 08:18 10:05 11:35 Temperature 98.3 F Pulse Rate 99 H 90 Pulse Rate [ 82 Anterior Bilateral] Respiratory 20 Rate Respiratory 18 Rate [Anterior Bilateral] Blood Pressure 135/68 Blood Pressure 144/76 [Left] O2 Sat by Pulse 100 Oximetry Constitutional: no acute distress, alert Eyes: non-icteric ENT: oropharynx moist, other (no thyromegaly) Neck: supple, no lymphadenopathy, no JVD, other (large neck circumference) Effort: mildly labored Ascultation: Bilateral: diminished breath sounds, rhonchi (scant in bases) Percussion: Bilateral: not dull Cardiovascular: regular rate and rhythm, other (No R/M) Gastrointestinal: hypoactive bowel sounds, soft, tender (mild), non-distended, other (no palpable HSM) Integumentary: normal Extremities: no cyanosis, no edema, pulses normal, no ischemia or petechiae Neurologic: normal mental status, non-focal exam (grossly), pupils equal and round, CN II-XII normal, motor strength normal and Psychiatric: mood appropriate, affect normal CBC and BMP: 04/30/18 11:20 04/30/18 08:26 ABG, PT/INR, D-dimer: ABG POC ABG pH 7.519 (7.35-7.45) H 04/10/18 12:59 POC ABG pCO2 29.3 (35-45) L 04/10/18 12:59 POC ABG pO2 63 (80-105) L 04/10/18 12:59 POC ABG HCO3 23.9 04/10/18 12:59 POC ABG Total CO2 25 04/10/18 12:59 POC ABG O2 Sat 94 04/10/18 12:59 PT/INR, D-dimer PT 17.2 Sec. (12.2-14.9) H 04/26/18 16:39 INR 1.33 (0.87-1.13) H 04/26/18 16:39 Abnormal lab findings: Abnormal Labs 04/07/18 04/07/18 04/07/18 00:05 00:05 09:41 WBC 18.4 H 21.3 H RBC Hgb Hct MCV MCHC RDW Plt Count Lymph % (Auto) 4.5 L [place] % (Auto) Lymph # 0.8 L [place] # 1.2 H Baso # Seg Neutrophils % 88.9 H Seg Neuts % (Manual) 85.0 H Lymphocytes % (Manual) 4.0 L Monocytes % (Manual) Nucleated RBC % Seg Neutrophils # 16.4 H Seg Neutrophils # Man 18.1 H Lymphocytes # (Manual) 0.9 L Monocytes # (Manual) 1.1 H PT INR POC ABG pH POC ABG pCO2 POC ABG pO2 Sodium Potassium Chloride Carbon Dioxide BUN Creatinine Glucose 123 H POC Glucose Calcium 8.0 L Phosphorus Magnesium 1.60 L AST 59 H ALT Alkaline Phosphatase Lactate Dehydrogenase C-Reactive Protein Total Protein Albumin 2.9 L Urine WBC (Auto) Miscellaneous Test 04/07/18 04/08/18 04/08/18 09:41 00:20 10:25 WBC 19.2 H RBC Hgb Hct MCV MCHC RDW Plt Count Lymph % (Auto) 5.4 L [place] % (Auto) Lymph # 1.0 L [place] # 1.1 H Baso # Seg Neutrophils % 88.9 H Seg Neuts % (Manual) Lymphocytes % (Manual) Monocytes % (Manual) Nucleated RBC % Seg Neutrophils # 17.1 H Seg Neutrophils # Man Lymphocytes # (Manual) Monocytes # (Manual) PT INR POC ABG pH POC ABG pCO2 POC ABG pO2 Sodium Potassium 3.3 L Chloride 95.1 L Carbon Dioxide 21 L BUN Creatinine Glucose 113 H POC Glucose Calcium Phosphorus Magnesium AST ALT Alkaline Phosphatase Lactate Dehydrogenase C-Reactive Protein Total Protein Albumin 3.6 L Urine WBC (Auto) 45.0 H Miscellaneous Test 04/08/18 04/08/18 04/08/18 10:25 13:33 23:53 WBC 12.8 H RBC Hgb Hct MCV MCHC RDW Plt Count Lymph % (Auto) [place] % (Auto) Lymph # [place] # Baso # Seg Neutrophils % Seg Neuts % (Manual) 97.0 H Lymphocytes % (Manual) 2.0 L Monocytes % (Manual) Nucleated RBC % Seg Neutrophils # Seg Neutrophils # Man 12.4 H Lymphocytes # (Manual) 0.3 L Monocytes # (Manual) PT INR POC ABG pH POC ABG pCO2 POC ABG pO2 Sodium Potassium 3.5 L Chloride Carbon Dioxide BUN Creatinine Glucose 123 H POC Glucose Calcium 7.9 L Phosphorus Magnesium AST 53 H ALT Alkaline Phosphatase Lactate Dehydrogenase C-Reactive Protein 52.00 H Total Protein 6.1 L Albumin 2.7 L Urine WBC (Auto) Miscellaneous Test 04/09/18 04/09/18 04/09/18 04:20 04:20 13:38 WBC 16.2 H RBC Hgb Hct MCV MCHC RDW Plt Count Lymph % (Auto) [place] % (Auto) Lymph # [place] # Baso # Seg Neutrophils % Seg Neuts % (Manual) 89.0 H Lymphocytes % (Manual) 4.0 L Monocytes % (Manual) Nucleated RBC % Seg Neutrophils # Seg Neutrophils # Man 14.4 H Lymphocytes # (Manual) 0.6 L Monocytes # (Manual) PT INR POC ABG pH 7.494 H POC ABG pCO2 31.6 L POC ABG pO2 68 L Sodium Potassium 3.5 L Chloride Carbon Dioxide BUN Creatinine 0.6 L Glucose 117 H POC Glucose Calcium 7.9 L Phosphorus 1.50 L D Magnesium AST ALT Alkaline Phosphatase Lactate Dehydrogenase C-Reactive Protein Total Protein 5.6 L Albumin 2.9 L Urine WBC (Auto) Miscellaneous Test 04/09/18 04/09/18 04/09/18 18:25 21:45 21:45 WBC 21.3 H RBC 3.62 L Hgb Hct MCV MCHC 35 H RDW Plt Count Lymph % (Auto) [place] % (Auto) Lymph # [place] # Baso # Seg Neutrophils % Seg Neuts % (Manual) 90.0 H Lymphocytes % (Manual) 6.0 L Monocytes % (Manual) Nucleated RBC % 1.0 H Seg Neutrophils # Seg Neutrophils # Man 19.2 H Lymphocytes # (Manual) Monocytes # (Manual) 0.9 H PT INR POC ABG pH POC ABG pCO2 POC ABG pO2 Sodium Potassium Chloride Carbon Dioxide BUN 5 L Creatinine 0.5 L Glucose 134 H POC Glucose 155 H Calcium 7.9 L Phosphorus 2.20 L D Magnesium AST ALT Alkaline Phosphatase Lactate Dehydrogenase C-Reactive Protein Total Protein Albumin Urine WBC (Auto) Miscellaneous Test 04/09/18 04/10/18 04/10/18 23:38 04:07 04:07 WBC 20.2 H RBC 3.38 L Hgb 9.4 L Hct 28.9 L MCV MCHC RDW Plt Count Lymph % (Auto) [place] % (Auto) Lymph # [place] # Baso # Seg Neutrophils % Seg Neuts % (Manual) Lymphocytes % (Manual) 6.0 L Monocytes % (Manual) Nucleated RBC % Seg Neutrophils # Seg Neutrophils # Man 10.7 H Lymphocytes # (Manual) Monocytes # (Manual) PT INR POC ABG pH POC ABG pCO2 POC ABG pO2 Sodium Potassium Chloride Carbon Dioxide BUN 6 L Creatinine 0.6 L Glucose 176 H POC Glucose 160 H Calcium 7.7 L Phosphorus Magnesium AST ALT Alkaline Phosphatase Lactate Dehydrogenase C-Reactive Protein Total Protein Albumin Urine WBC (Auto) Miscellaneous Test 04/10/18 04/10/18 04/10/18 05:29 11:55 12:59 WBC RBC Hgb Hct MCV MCHC RDW Plt Count Lymph % (Auto) [place] % (Auto) Lymph # [place] # Baso # Seg Neutrophils % Seg Neuts % (Manual) Lymphocytes % (Manual) Monocytes % (Manual) Nucleated RBC % Seg Neutrophils # Seg Neutrophils # Man Lymphocytes # (Manual) Monocytes # (Manual) PT INR POC ABG pH 7.519 H POC ABG pCO2 29.3 L POC ABG pO2 63 L Sodium Potassium Chloride Carbon Dioxide BUN Creatinine Glucose POC Glucose 171 H 194 H Calcium Phosphorus Magnesium AST ALT Alkaline Phosphatase Lactate Dehydrogenase C-Reactive Protein Total Protein Albumin Urine WBC (Auto) Miscellaneous Test 04/10/18 04/10/18 04/10/18 18:11 18:28 18:28 WBC 22.7 H RBC 3.62 L Hgb Hct MCV MCHC RDW Plt Count Lymph % (Auto) [place] % (Auto) Lymph # [place] # Baso # Seg Neutrophils % Seg Neuts % (Manual) 84.0 H Lymphocytes % (Manual) 7.0 L Monocytes % (Manual) 8.0 H Nucleated RBC % Seg Neutrophils # Seg Neutrophils # Man 19.1 H Lymphocytes # (Manual) Monocytes # (Manual) 1.8 H PT INR POC ABG pH POC ABG pCO2 POC ABG pO2 Sodium Potassium Chloride Carbon Dioxide BUN Creatinine Glucose POC Glucose 118 H Calcium Phosphorus Magnesium AST ALT Alkaline Phosphatase Lactate Dehydrogenase C-Reactive Protein 45.20 H Total Protein Albumin Urine WBC (Auto) Miscellaneous Test 04/10/18 04/10/18 04/11/18 18:28 23:45 03:35 WBC 20.9 H RBC 3.54 L Hgb 10.0 L Hct MCV MCHC RDW Plt Count Lymph % (Auto) [place] % (Auto) Lymph # [place] # Baso # Seg Neutrophils % Seg Neuts % (Manual) 80.0 H Lymphocytes % (Manual) 6.0 L Monocytes % (Manual) Nucleated RBC % Seg Neutrophils # Seg Neutrophils # Man 16.7 H Lymphocytes # (Manual) Monocytes # (Manual) PT INR POC ABG pH POC ABG pCO2 POC ABG pO2 Sodium Potassium 3.5 L Chloride Carbon Dioxide BUN 5 L Creatinine 0.5 L Glucose 108 H POC Glucose 149 H Calcium 8.3 L Phosphorus Magnesium AST ALT Alkaline Phosphatase Lactate Dehydrogenase C-Reactive Protein Total Protein Albumin Urine WBC (Auto) Miscellaneous Test 04/11/18 04/11/18 04/11/18 03:35 06:17 11:29 WBC RBC Hgb Hct MCV MCHC RDW Plt Count Lymph % (Auto) [place] % (Auto) Lymph # [place] # Baso # Seg Neutrophils % Seg Neuts % (Manual) Lymphocytes % (Manual) Monocytes % (Manual) Nucleated RBC % Seg Neutrophils # Seg Neutrophils # Man Lymphocytes # (Manual) Monocytes # (Manual) PT INR POC ABG pH POC ABG pCO2 POC ABG pO2 Sodium Potassium Chloride Carbon Dioxide BUN Creatinine 0.5 L Glucose 143 H POC Glucose 155 H 158 H Calcium 8.2 L Phosphorus Magnesium AST ALT Alkaline Phosphatase Lactate Dehydrogenase C-Reactive Protein Total Protein 6.0 L Albumin 2.2 L Urine WBC (Auto) Miscellaneous Test 04/11/18 04/11/18 04/12/18 18:13 23:51 05:29 WBC RBC Hgb Hct MCV MCHC RDW Plt Count Lymph % (Auto) [place] % (Auto) Lymph # [place] # Baso # Seg Neutrophils % Seg Neuts % (Manual) Lymphocytes % (Manual) Monocytes % (Manual) Nucleated RBC % Seg Neutrophils # Seg Neutrophils # Man Lymphocytes # (Manual) Monocytes # (Manual) PT INR POC ABG pH POC ABG pCO2 POC ABG pO2 Sodium Potassium Chloride Carbon Dioxide BUN Creatinine Glucose POC Glucose 135 H 143 H 150 H Calcium Phosphorus Magnesium AST ALT Alkaline Phosphatase Lactate Dehydrogenase C-Reactive Protein Total Protein Albumin Urine WBC (Auto) Miscellaneous Test 04/12/18 04/12/18 04/13/18 05:40 05:40 00:32 WBC 18.0 H RBC 3.34 L Hgb 9.5 L Hct 28.9 L MCV MCHC RDW Plt Count Lymph % (Auto) 7.4 L [place] % (Auto) 10.8 H Lymph # [place] # 1.9 H Baso # Seg Neutrophils % 81.1 H Seg Neuts % (Manual) Lymphocytes % (Manual) Monocytes % (Manual) Nucleated RBC % Seg Neutrophils # 14.6 H Seg Neutrophils # Man Lymphocytes # (Manual) Monocytes # (Manual) PT INR POC ABG pH POC ABG pCO2 POC ABG pO2 Sodium Potassium Chloride 107.7 H Carbon Dioxide 21 L BUN Creatinine 0.6 L Glucose 140 H POC Glucose 144 H Calcium Phosphorus Magnesium AST ALT Alkaline Phosphatase Lactate Dehydrogenase C-Reactive Protein Total Protein Albumin Urine WBC (Auto) Miscellaneous Test 04/13/18 04/13/18 04/13/18 04:20 04:20 04:20 WBC 18.1 H RBC 3.52 L Hgb 9.8 L Hct 30.1 L MCV MCHC RDW Plt Count Lymph % (Auto) 11.1 L [place] % (Auto) 13.6 H Lymph # [place] # 2.5 H Baso # Seg Neutrophils % 74.4 H Seg Neuts % (Manual) Lymphocytes % (Manual) Monocytes % (Manual) Nucleated RBC % Seg Neutrophils # 13.4 H Seg Neutrophils # Man Lymphocytes # (Manual) Monocytes # (Manual) PT INR POC ABG pH POC ABG pCO2 POC ABG pO2 Sodium Potassium Chloride Carbon Dioxide BUN Creatinine 0.5 L Glucose 142 H POC Glucose Calcium Phosphorus Magnesium AST ALT Alkaline Phosphatase Lactate Dehydrogenase C-Reactive Protein 29.60 H Total Protein Albumin Urine WBC (Auto) Miscellaneous Test 04/13/18 04/13/18 04/13/18 05:35 13:37 23:50 WBC RBC Hgb Hct MCV MCHC RDW Plt Count Lymph % (Auto) [place] % (Auto) Lymph # [place] # Baso # Seg Neutrophils % Seg Neuts % (Manual) Lymphocytes % (Manual) Monocytes % (Manual) Nucleated RBC % Seg Neutrophils # Seg Neutrophils # Man Lymphocytes # (Manual) Monocytes # (Manual) PT INR POC ABG pH POC ABG pCO2 POC ABG pO2 Sodium Potassium Chloride Carbon Dioxide BUN Creatinine Glucose POC Glucose 142 H 160 H Calcium Phosphorus Magnesium AST ALT Alkaline Phosphatase Lactate Dehydrogenase C-Reactive Protein Total Protein Albumin Urine WBC (Auto) Miscellaneous Test Flexitest 1 H 04/14/18 04/14/18 04/14/18 04:00 04:00 05:29 WBC 22.1 H RBC 3.59 L Hgb 9.9 L Hct MCV MCHC RDW Plt Count Lymph % (Auto) [place] % (Auto) Lymph # [place] # Baso # Seg Neutrophils % Seg Neuts % (Manual) 73.0 H Lymphocytes % (Manual) 9.0 L Monocytes % (Manual) 11.0 H Nucleated RBC % Seg Neutrophils # Seg Neutrophils # Man 16.1 H Lymphocytes # (Manual) Monocytes # (Manual) 2.4 H PT INR POC ABG pH POC ABG pCO2 POC ABG pO2 Sodium Potassium Chloride Carbon Dioxide BUN Creatinine Glucose 155 H POC Glucose 133 H Calcium Phosphorus Magnesium 2.50 H AST ALT Alkaline Phosphatase Lactate Dehydrogenase C-Reactive Protein Total Protein Albumin Urine WBC (Auto) Miscellaneous Test 04/14/18 04/14/18 04/14/18 12:47 16:01 23:42 WBC RBC Hgb Hct MCV MCHC RDW Plt Count Lymph % (Auto) [place] % (Auto) Lymph # [place] # Baso # Seg Neutrophils % Seg Neuts % (Manual) Lymphocytes % (Manual) Monocytes % (Manual) Nucleated RBC % Seg Neutrophils # Seg Neutrophils # Man Lymphocytes # (Manual) Monocytes # (Manual) PT INR POC ABG pH POC ABG pCO2 POC ABG pO2 Sodium Potassium Chloride Carbon Dioxide BUN Creatinine Glucose POC Glucose 183 H 153 H 172 H Calcium Phosphorus Magnesium AST ALT Alkaline Phosphatase Lactate Dehydrogenase C-Reactive Protein Total Protein Albumin Urine WBC (Auto) Miscellaneous Test 04/15/18 04/15/18 04/15/18 04:42 04:42 05:49 WBC 21.5 H RBC 3.37 L Hgb 9.4 L Hct 28.9 L MCV MCHC RDW Plt Count 490 H Lymph % (Auto) [place] % (Auto) Lymph # [place] # Baso # Seg Neutrophils % Seg Neuts % (Manual) 77.0 H Lymphocytes % (Manual) 7.0 L Monocytes % (Manual) 10.0 H Nucleated RBC % Seg Neutrophils # Seg Neutrophils # Man 16.6 H Lymphocytes # (Manual) Monocytes # (Manual) 2.2 H PT INR POC ABG pH POC ABG pCO2 POC ABG pO2 Sodium Potassium 3.4 L Chloride 107.5 H Carbon Dioxide 21 L BUN Creatinine Glucose 165 H POC Glucose 147 H Calcium 8.0 L Phosphorus Magnesium 2.40 H AST ALT Alkaline Phosphatase Lactate Dehydrogenase C-Reactive Protein Total Protein Albumin Urine WBC (Auto) Miscellaneous Test 04/15/18 04/15/18 04/16/18 11:17 17:35 00:26 WBC RBC Hgb Hct MCV MCHC RDW Plt Count Lymph % (Auto) [place] % (Auto) Lymph # [place] # Baso # Seg Neutrophils % Seg Neuts % (Manual) Lymphocytes % (Manual) Monocytes % (Manual) Nucleated RBC % Seg Neutrophils # Seg Neutrophils # Man Lymphocytes # (Manual) Monocytes # (Manual) PT INR POC ABG pH POC ABG pCO2 POC ABG pO2 Sodium Potassium Chloride Carbon Dioxide BUN Creatinine Glucose POC Glucose 119 H 169 H 176 H Calcium Phosphorus Magnesium AST ALT Alkaline Phosphatase Lactate Dehydrogenase C-Reactive Protein Total Protein Albumin Urine WBC (Auto) Miscellaneous Test 04/16/18 04/16/18 04/16/18 06:12 06:19 06:21 WBC 20.7 H RBC 3.25 L Hgb 9.0 L Hct MCV MCHC 29 L RDW 16.7 H Plt Count 498 H Lymph % (Auto) [place] % (Auto) Lymph # [place] # Baso # Seg Neutrophils % Seg Neuts % (Manual) 88.0 H Lymphocytes % (Manual) 5.0 L Monocytes % (Manual) Nucleated RBC % Seg Neutrophils # Seg Neutrophils # Man 18.2 H Lymphocytes # (Manual) 1.0 L Monocytes # (Manual) PT INR POC ABG pH POC ABG pCO2 POC ABG pO2 Sodium Potassium Chloride Carbon Dioxide BUN Creatinine Glucose POC Glucose > 500 H 493 H Calcium Phosphorus Magnesium AST ALT Alkaline Phosphatase Lactate Dehydrogenase C-Reactive Protein Total Protein Albumin Urine WBC (Auto) Miscellaneous Test 04/16/18 04/16/18 04/16/18 06:24 08:52 14:05 WBC RBC Hgb Hct MCV MCHC RDW Plt Count Lymph % (Auto) [place] % (Auto) Lymph # [place] # Baso # Seg Neutrophils % Seg Neuts % (Manual) Lymphocytes % (Manual) Monocytes % (Manual) Nucleated RBC % Seg Neutrophils # Seg Neutrophils # Man Lymphocytes # (Manual) Monocytes # (Manual) PT INR POC ABG pH POC ABG pCO2 POC ABG pO2 Sodium Potassium 3.4 L Chloride Carbon Dioxide BUN Creatinine 0.5 L Glucose 166 H POC Glucose 173 H 196 H Calcium 8.2 L Phosphorus Magnesium AST ALT Alkaline Phosphatase Lactate Dehydrogenase C-Reactive Protein Total Protein Albumin Urine WBC (Auto) Miscellaneous Test 04/16/18 04/17/18 04/17/18 17:17 00:06 04:50 WBC 16.0 H RBC 3.12 L Hgb 8.7 L Hct 29.0 L MCV MCHC RDW 16.2 H Plt Count 455 H Lymph % (Auto) 9.4 L [place] % (Auto) 7.7 H Lymph # [place] # 1.2 H Baso # Seg Neutrophils % 81.9 H Seg Neuts % (Manual) Lymphocytes % (Manual) Monocytes % (Manual) Nucleated RBC % Seg Neutrophils # 13.1 H Seg Neutrophils # Man Lymphocytes # (Manual) Monocytes # (Manual) PT INR POC ABG pH POC ABG pCO2 POC ABG pO2 Sodium Potassium Chloride Carbon Dioxide BUN Creatinine Glucose POC Glucose 189 H 190 H Calcium Phosphorus Magnesium AST ALT Alkaline Phosphatase Lactate Dehydrogenase C-Reactive Protein Total Protein Albumin Urine WBC (Auto) Miscellaneous Test 04/17/18 04/17/18 04/17/18 04:50 05:38 07:17 WBC RBC Hgb Hct MCV MCHC RDW Plt Count Lymph % (Auto) [place] % (Auto) Lymph # [place] # Baso # Seg Neutrophils % Seg Neuts % (Manual) Lymphocytes % (Manual) Monocytes % (Manual) Nucleated RBC % Seg Neutrophils # Seg Neutrophils # Man Lymphocytes # (Manual) Monocytes # (Manual) PT INR POC ABG pH POC ABG pCO2 POC ABG pO2 Sodium 136 L Potassium 3.4 L Chloride 96.9 L Carbon Dioxide BUN Creatinine 0.6 L Glucose 167 H POC Glucose 190 H Calcium 7.6 L 8.0 L Phosphorus Magnesium AST ALT Alkaline Phosphatase Lactate Dehydrogenase C-Reactive Protein Total Protein Albumin Urine WBC (Auto) Miscellaneous Test 04/17/18 04/17/18 04/17/18 11:50 18:37 23:53 WBC RBC Hgb Hct MCV MCHC RDW Plt Count Lymph % (Auto) [place] % (Auto) Lymph # [place] # Baso # Seg Neutrophils % Seg Neuts % (Manual) Lymphocytes % (Manual) Monocytes % (Manual) Nucleated RBC % Seg Neutrophils # Seg Neutrophils # Man Lymphocytes # (Manual) Monocytes # (Manual) PT INR POC ABG pH POC ABG pCO2 POC ABG pO2 Sodium Potassium Chloride Carbon Dioxide BUN Creatinine Glucose POC Glucose 163 H 167 H 142 H Calcium Phosphorus Magnesium AST ALT Alkaline Phosphatase Lactate Dehydrogenase C-Reactive Protein Total Protein Albumin Urine WBC (Auto) Miscellaneous Test 04/18/18 04/18/18 04/18/18 05:59 10:05 12:25 WBC RBC Hgb Hct MCV MCHC RDW Plt Count Lymph % (Auto) [place] % (Auto) Lymph # [place] # Baso # Seg Neutrophils % Seg Neuts % (Manual) Lymphocytes % (Manual) Monocytes % (Manual) Nucleated RBC % Seg Neutrophils # Seg Neutrophils # Man Lymphocytes # (Manual) Monocytes # (Manual) PT INR POC ABG pH POC ABG pCO2 POC ABG pO2 Sodium Potassium Chloride Carbon Dioxide BUN Creatinine 0.5 L Glucose 127 H POC Glucose 144 H 171 H Calcium 8.2 L Phosphorus Magnesium AST ALT Alkaline Phosphatase Lactate Dehydrogenase C-Reactive Protein Total Protein Albumin Urine WBC (Auto) Miscellaneous Test 04/18/18 04/18/18 04/19/18 14:54 17:56 00:15 WBC 18.2 H RBC 2.95 L Hgb 8.9 L Hct 29.0 L MCV 98 H MCHC RDW 16.9 H Plt Count Lymph % (Auto) 9.2 L [place] % (Auto) Lymph # [place] # 1.2 H Baso # Seg Neutrophils % 82.7 H Seg Neuts % (Manual) Lymphocytes % (Manual) Monocytes % (Manual) Nucleated RBC % Seg Neutrophils # 15.1 H Seg Neutrophils # Man Lymphocytes # (Manual) Monocytes # (Manual) PT INR POC ABG pH POC ABG pCO2 POC ABG pO2 Sodium Potassium Chloride Carbon Dioxide BUN Creatinine Glucose POC Glucose 169 H 148 H Calcium Phosphorus Magnesium AST ALT Alkaline Phosphatase Lactate Dehydrogenase C-Reactive Protein Total Protein Albumin Urine WBC (Auto) Miscellaneous Test 04/19/18 04/19/18 04/19/18 05:21 08:00 08:00 WBC 18.7 H RBC Hgb Hct MCV MCHC RDW Plt Count 531 H Lymph % (Auto) [place] % (Auto) Lymph # [place] # Baso # Seg Neutrophils % Seg Neuts % (Manual) Lymphocytes % (Manual) Monocytes % (Manual) Nucleated RBC % Seg Neutrophils # Seg Neutrophils # Man Lymphocytes # (Manual) Monocytes # (Manual) PT INR POC ABG pH POC ABG pCO2 POC ABG pO2 Sodium Potassium Chloride Carbon Dioxide BUN 18 H Creatinine 0.5 L Glucose 141 H POC Glucose 146 H Calcium Phosphorus Magnesium AST ALT 76 H Alkaline Phosphatase 142 H Lactate Dehydrogenase C-Reactive Protein Total Protein Albumin 2.4 L Urine WBC (Auto) Miscellaneous Test 04/19/18 04/19/18 04/20/18 12:12 17:41 00:21 WBC RBC Hgb Hct MCV MCHC RDW Plt Count Lymph % (Auto) [place] % (Auto) Lymph # [place] # Baso # Seg Neutrophils % Seg Neuts % (Manual) Lymphocytes % (Manual) Monocytes % (Manual) Nucleated RBC % Seg Neutrophils # Seg Neutrophils # Man Lymphocytes # (Manual) Monocytes # (Manual) PT INR POC ABG pH POC ABG pCO2 POC ABG pO2 Sodium Potassium Chloride Carbon Dioxide BUN Creatinine Glucose POC Glucose 161 H 134 H 159 H Calcium Phosphorus Magnesium AST ALT Alkaline Phosphatase Lactate Dehydrogenase C-Reactive Protein Total Protein Albumin Urine WBC (Auto) Miscellaneous Test 04/20/18 04/20/18 04/20/18 04:00 04:00 07:05 WBC 16.5 H RBC 3.51 L Hgb 9.9 L Hct 30.1 L MCV MCHC RDW Plt Count 530 H Lymph % (Auto) 10.7 L [place] % (Auto) 9.2 H Lymph # [place] # 1.5 H Baso # Seg Neutrophils % 78.5 H Seg Neuts % (Manual) Lymphocytes % (Manual) Monocytes % (Manual) Nucleated RBC % Seg Neutrophils # 13.0 H Seg Neutrophils # Man Lymphocytes # (Manual) Monocytes # (Manual) PT INR POC ABG pH POC ABG pCO2 POC ABG pO2 Sodium Potassium Chloride Carbon Dioxide BUN 19 H Creatinine 0.6 L Glucose 185 H POC Glucose 166 H Calcium Phosphorus Magnesium AST ALT Alkaline Phosphatase Lactate Dehydrogenase C-Reactive Protein Total Protein Albumin Urine WBC (Auto) Miscellaneous Test 04/20/18 04/20/18 04/21/18 12:59 19:06 00:17 WBC RBC Hgb Hct MCV MCHC RDW Plt Count Lymph % (Auto) [place] % (Auto) Lymph # [place] # Baso # Seg Neutrophils % Seg Neuts % (Manual) Lymphocytes % (Manual) Monocytes % (Manual) Nucleated RBC % Seg Neutrophils # Seg Neutrophils # Man Lymphocytes # (Manual) Monocytes # (Manual) PT INR POC ABG pH POC ABG pCO2 POC ABG pO2 Sodium Potassium Chloride Carbon Dioxide BUN Creatinine Glucose POC Glucose 166 H 170 H 178 H Calcium Phosphorus Magnesium AST ALT Alkaline Phosphatase Lactate Dehydrogenase C-Reactive Protein Total Protein Albumin Urine WBC (Auto) Miscellaneous Test 04/21/18 04/21/18 04/21/18 06:15 06:15 06:39 WBC 15.1 H RBC 3.48 L Hgb 9.8 L Hct 30.2 L MCV MCHC RDW Plt Count 499 H Lymph % (Auto) [place] % (Auto) 8.7 H Lymph # [place] # 1.3 H Baso # 0.2 H Seg Neutrophils % 74.7 H Seg Neuts % (Manual) Lymphocytes % (Manual) Monocytes % (Manual) Nucleated RBC % Seg Neutrophils # 11.3 H Seg Neutrophils # Man Lymphocytes # (Manual) Monocytes # (Manual) PT INR POC ABG pH POC ABG pCO2 POC ABG pO2 Sodium Potassium Chloride 108.8 H Carbon Dioxide BUN 18 H Creatinine 0.6 L Glucose 157 H POC Glucose 153 H Calcium 8.0 L Phosphorus Magnesium AST ALT Alkaline Phosphatase Lactate Dehydrogenase C-Reactive Protein Total Protein Albumin Urine WBC (Auto) Miscellaneous Test 04/21/18 04/21/18 04/21/18 11:49 17:07 22:07 WBC RBC Hgb Hct MCV MCHC RDW Plt Count Lymph % (Auto) [place] % (Auto) Lymph # [place] # Baso # Seg Neutrophils % Seg Neuts % (Manual) Lymphocytes % (Manual) Monocytes % (Manual) Nucleated RBC % Seg Neutrophils # Seg Neutrophils # Man Lymphocytes # (Manual) Monocytes # (Manual) PT INR POC ABG pH POC ABG pCO2 POC ABG pO2 Sodium Potassium Chloride Carbon Dioxide BUN Creatinine Glucose POC Glucose 184 H 163 H 169 H Calcium Phosphorus Magnesium AST ALT Alkaline Phosphatase Lactate Dehydrogenase C-Reactive Protein Total Protein Albumin Urine WBC (Auto) Miscellaneous Test 04/22/18 04/22/18 04/22/18 07:00 07:00 08:52 WBC 14.0 H RBC 3.26 L Hgb 9.3 L Hct 28.6 L MCV MCHC RDW Plt Count 460 H Lymph % (Auto) 13.0 L [place] % (Auto) 10.1 H Lymph # [place] # 1.4 H Baso # Seg Neutrophils % 74.4 H Seg Neuts % (Manual) Lymphocytes % (Manual) Monocytes % (Manual) Nucleated RBC % Seg Neutrophils # 10.4 H Seg Neutrophils # Man Lymphocytes # (Manual) Monocytes # (Manual) PT INR POC ABG pH POC ABG pCO2 POC ABG pO2 Sodium Potassium Chloride Carbon Dioxide BUN 19 H Creatinine 0.6 L Glucose 159 H POC Glucose 156 H Calcium Phosphorus Magnesium AST ALT Alkaline Phosphatase Lactate Dehydrogenase C-Reactive Protein Total Protein Albumin Urine WBC (Auto) Miscellaneous Test 04/22/18 04/22/18 04/22/18 12:34 16:20 21:42 WBC RBC Hgb Hct MCV MCHC RDW Plt Count Lymph % (Auto) [place] % (Auto) Lymph # [place] # Baso # Seg Neutrophils % Seg Neuts % (Manual) Lymphocytes % (Manual) Monocytes % (Manual) Nucleated RBC % Seg Neutrophils # Seg Neutrophils # Man Lymphocytes # (Manual) Monocytes # (Manual) PT INR POC ABG pH POC ABG pCO2 POC ABG pO2 Sodium Potassium Chloride Carbon Dioxide BUN Creatinine Glucose POC Glucose 150 H 148 H 134 H Calcium Phosphorus Magnesium AST ALT Alkaline Phosphatase Lactate Dehydrogenase C-Reactive Protein Total Protein Albumin Urine WBC (Auto) Miscellaneous Test 04/23/18 04/23/18 04/23/18 05:45 05:45 08:45 WBC 12.5 H RBC 3.41 L Hgb 9.6 L Hct 29.6 L MCV MCHC RDW Plt Count 441 H Lymph % (Auto) [place] % (Auto) 11.3 H Lymph # [place] # 1.4 H Baso # Seg Neutrophils % 70.2 H Seg Neuts % (Manual) Lymphocytes % (Manual) Monocytes % (Manual) Nucleated RBC % Seg Neutrophils # 9.0 H Seg Neutrophils # Man Lymphocytes # (Manual) Monocytes # (Manual) PT INR POC ABG pH POC ABG pCO2 POC ABG pO2 Sodium Potassium Chloride Carbon Dioxide BUN 19 H Creatinine 0.6 L Glucose 119 H POC Glucose 154 H Calcium Phosphorus Magnesium 2.40 H AST ALT Alkaline Phosphatase Lactate Dehydrogenase C-Reactive Protein Total Protein Albumin Urine WBC (Auto) Miscellaneous Test 04/23/18 04/23/18 04/24/18 11:45 22:09 07:26 WBC RBC Hgb Hct MCV MCHC RDW Plt Count Lymph % (Auto) [place] % (Auto) Lymph # [place] # Baso # Seg Neutrophils % Seg Neuts % (Manual) Lymphocytes % (Manual) Monocytes % (Manual) Nucleated RBC % Seg Neutrophils # Seg Neutrophils # Man Lymphocytes # (Manual) Monocytes # (Manual) PT INR POC ABG pH POC ABG pCO2 POC ABG pO2 Sodium Potassium Chloride Carbon Dioxide BUN Creatinine Glucose POC Glucose 132 H 113 H 164 H Calcium Phosphorus Magnesium AST ALT Alkaline Phosphatase Lactate Dehydrogenase C-Reactive Protein Total Protein Albumin Urine WBC (Auto) Miscellaneous Test 04/24/18 04/24/18 04/24/18 08:30 08:30 11:27 WBC 14.4 H RBC 3.30 L Hgb 9.6 L Hct 28.4 L MCV MCHC RDW Plt Count Lymph % (Auto) 12.8 L [place] % (Auto) 9.1 H Lymph # [place] # 1.3 H Baso # 0.2 H Seg Neutrophils % 76.4 H Seg Neuts % (Manual) Lymphocytes % (Manual) Monocytes % (Manual) Nucleated RBC % Seg Neutrophils # 11.0 H Seg Neutrophils # Man Lymphocytes # (Manual) Monocytes # (Manual) PT INR POC ABG pH POC ABG pCO2 POC ABG pO2 Sodium Potassium Chloride Carbon Dioxide BUN 18 H Creatinine Glucose 155 H POC Glucose 133 H Calcium Phosphorus Magnesium AST ALT Alkaline Phosphatase Lactate Dehydrogenase C-Reactive Protein Total Protein Albumin Urine WBC (Auto) Miscellaneous Test 04/24/18 04/24/18 04/25/18 16:32 22:17 06:16 WBC RBC Hgb Hct MCV MCHC RDW Plt Count Lymph % (Auto) [place] % (Auto) Lymph # [place] # Baso # Seg Neutrophils % Seg Neuts % (Manual) Lymphocytes % (Manual) Monocytes % (Manual) Nucleated RBC % Seg Neutrophils # Seg Neutrophils # Man Lymphocytes # (Manual) Monocytes # (Manual) PT INR POC ABG pH POC ABG pCO2 POC ABG pO2 Sodium Potassium Chloride Carbon Dioxide BUN Creatinine Glucose POC Glucose 132 H 124 H 133 H Calcium Phosphorus Magnesium AST ALT Alkaline Phosphatase Lactate Dehydrogenase C-Reactive Protein Total Protein Albumin Urine WBC (Auto) Miscellaneous Test 04/25/18 04/25/18 04/25/18 07:39 11:10 11:31 WBC 11.3 H RBC 3.41 L Hgb 9.8 L Hct 29.5 L MCV MCHC RDW Plt Count Lymph % (Auto) 12.3 L [place] % (Auto) 9.0 H Lymph # [place] # 1.0 H Baso # Seg Neutrophils % 77.3 H Seg Neuts % (Manual) Lymphocytes % (Manual) Monocytes % (Manual) Nucleated RBC % Seg Neutrophils # 8.7 H Seg Neutrophils # Man Lymphocytes # (Manual) Monocytes # (Manual) PT INR POC ABG pH POC ABG pCO2 POC ABG pO2 Sodium Potassium Chloride Carbon Dioxide BUN Creatinine Glucose POC Glucose 141 H 145 H Calcium Phosphorus Magnesium AST ALT Alkaline Phosphatase Lactate Dehydrogenase C-Reactive Protein Total Protein Albumin Urine WBC (Auto) Miscellaneous Test 04/25/18 04/25/18 04/26/18 11:31 16:14 00:45 WBC RBC Hgb Hct MCV MCHC RDW Plt Count Lymph % (Auto) [place] % (Auto) Lymph # [place] # Baso # Seg Neutrophils % Seg Neuts % (Manual) Lymphocytes % (Manual) Monocytes % (Manual) Nucleated RBC % Seg Neutrophils # Seg Neutrophils # Man Lymphocytes # (Manual) Monocytes # (Manual) PT INR POC ABG pH POC ABG pCO2 POC ABG pO2 Sodium Potassium Chloride Carbon Dioxide BUN Creatinine Glucose 153 H POC Glucose 163 H 141 H Calcium Phosphorus Magnesium AST ALT Alkaline Phosphatase Lactate Dehydrogenase C-Reactive Protein Total Protein Albumin Urine WBC (Auto) Miscellaneous Test 04/26/18 04/26/18 04/26/18 06:10 06:10 06:37 WBC 14.5 H RBC 3.60 L Hgb Hct MCV MCHC RDW Plt Count Lymph % (Auto) [place] % (Auto) 9.6 H Lymph # [place] # 1.4 H Baso # 0.2 H Seg Neutrophils % 75.0 H Seg Neuts % (Manual) Lymphocytes % (Manual) Monocytes % (Manual) Nucleated RBC % Seg Neutrophils # 10.9 H Seg Neutrophils # Man Lymphocytes # (Manual) Monocytes # (Manual) PT INR POC ABG pH POC ABG pCO2 POC ABG pO2 Sodium Potassium Chloride Carbon Dioxide BUN Creatinine Glucose 138 H POC Glucose 131 H Calcium Phosphorus Magnesium AST ALT Alkaline Phosphatase Lactate Dehydrogenase C-Reactive Protein Total Protein Albumin Urine WBC (Auto) Miscellaneous Test 04/26/18 04/26/18 04/26/18 11:34 16:10 16:39 WBC RBC Hgb Hct MCV MCHC RDW Plt Count Lymph % (Auto) [place] % (Auto) Lymph # [place] # Baso # Seg Neutrophils % Seg Neuts % (Manual) Lymphocytes % (Manual) Monocytes % (Manual) Nucleated RBC % Seg Neutrophils # Seg Neutrophils # Man Lymphocytes # (Manual) Monocytes # (Manual) PT 17.2 H INR 1.33 H POC ABG pH POC ABG pCO2 POC ABG pO2 Sodium Potassium Chloride Carbon Dioxide BUN Creatinine Glucose POC Glucose 129 H Calcium Phosphorus Magnesium AST ALT Alkaline Phosphatase Lactate Dehydrogenase 266 H C-Reactive Protein Total Protein Albumin Urine WBC (Auto) Miscellaneous Test 04/26/18 04/26/18 04/27/18 16:59 22:39 05:50 WBC RBC Hgb Hct MCV MCHC RDW Plt Count Lymph % (Auto) [place] % (Auto) Lymph # [place] # Baso # Seg Neutrophils % Seg Neuts % (Manual) Lymphocytes % (Manual) Monocytes % (Manual) Nucleated RBC % Seg Neutrophils # Seg Neutrophils # Man Lymphocytes # (Manual) Monocytes # (Manual) PT INR POC ABG pH POC ABG pCO2 POC ABG pO2 Sodium Potassium Chloride 97.4 L Carbon Dioxide BUN Creatinine 0.6 L Glucose 135 H POC Glucose 145 H 187 H Calcium 8.2 L Phosphorus Magnesium AST 97 H ALT 222 H Alkaline Phosphatase 191 H Lactate Dehydrogenase C-Reactive Protein Total Protein Albumin 2.5 L Urine WBC (Auto) Miscellaneous Test 04/27/18 04/27/18 04/27/18 11:52 16:35 22:23 WBC RBC Hgb Hct MCV MCHC RDW Plt Count Lymph % (Auto) [place] % (Auto) Lymph # [place] # Baso # Seg Neutrophils % Seg Neuts % (Manual) Lymphocytes % (Manual) Monocytes % (Manual) Nucleated RBC % Seg Neutrophils # Seg Neutrophils # Man Lymphocytes # (Manual) Monocytes # (Manual) PT INR POC ABG pH POC ABG pCO2 POC ABG pO2 Sodium Potassium Chloride Carbon Dioxide BUN Creatinine Glucose POC Glucose 162 H 136 H 188 H Calcium Phosphorus Magnesium AST ALT Alkaline Phosphatase Lactate Dehydrogenase C-Reactive Protein Total Protein Albumin Urine WBC (Auto) Miscellaneous Test 04/28/18 04/28/18 04/28/18 07:06 09:15 12:11 WBC RBC Hgb Hct MCV MCHC RDW Plt Count Lymph % (Auto) [place] % (Auto) Lymph # [place] # Baso # Seg Neutrophils % Seg Neuts % (Manual) Lymphocytes % (Manual) Monocytes % (Manual) Nucleated RBC % Seg Neutrophils # Seg Neutrophils # Man Lymphocytes # (Manual) Monocytes # (Manual) PT INR POC ABG pH POC ABG pCO2 POC ABG pO2 Sodium Potassium Chloride Carbon Dioxide BUN Creatinine 0.5 L Glucose 149 H POC Glucose 160 H 107 H Calcium 8.0 L Phosphorus Magnesium AST ALT Alkaline Phosphatase Lactate Dehydrogenase C-Reactive Protein Total Protein Albumin Urine WBC (Auto) Miscellaneous Test 04/28/18 04/29/18 04/29/18 21:57 05:25 05:59 WBC RBC Hgb Hct MCV MCHC RDW Plt Count Lymph % (Auto) [place] % (Auto) Lymph # [place] # Baso # Seg Neutrophils % Seg Neuts % (Manual) Lymphocytes % (Manual) Monocytes % (Manual) Nucleated RBC % Seg Neutrophils # Seg Neutrophils # Man Lymphocytes # (Manual) Monocytes # (Manual) PT INR POC ABG pH POC ABG pCO2 POC ABG pO2 Sodium Potassium Chloride Carbon Dioxide BUN Creatinine 0.5 L Glucose 122 H POC Glucose 134 H 130 H Calcium 8.3 L Phosphorus Magnesium AST ALT Alkaline Phosphatase Lactate Dehydrogenase C-Reactive Protein Total Protein Albumin Urine WBC (Auto) Miscellaneous Test 04/29/18 04/29/18 04/29/18 12:14 17:45 22:47 WBC RBC Hgb Hct MCV MCHC RDW Plt Count Lymph % (Auto) [place] % (Auto) Lymph # [place] # Baso # Seg Neutrophils % Seg Neuts % (Manual) Lymphocytes % (Manual) Monocytes % (Manual) Nucleated RBC % Seg Neutrophils # Seg Neutrophils # Man Lymphocytes # (Manual) Monocytes # (Manual) PT INR POC ABG pH POC ABG pCO2 POC ABG pO2 Sodium Potassium Chloride Carbon Dioxide BUN Creatinine Glucose POC Glucose 171 H 142 H 317 H Calcium Phosphorus Magnesium AST ALT Alkaline Phosphatase Lactate Dehydrogenase C-Reactive Protein Total Protein Albumin Urine WBC (Auto) Miscellaneous Test 04/30/18 04/30/18 04/30/18 06:18 08:26 11:20 WBC RBC 3.16 L Hgb 9.1 L Hct 27.0 L MCV MCHC RDW Plt Count Lymph % (Auto) [place] % (Auto) 11.8 H Lymph # [place] # Baso # Seg Neutrophils % Seg Neuts % (Manual) Lymphocytes % (Manual) Monocytes % (Manual) Nucleated RBC % Seg Neutrophils # Seg Neutrophils # Man Lymphocytes # (Manual) Monocytes # (Manual) PT INR POC ABG pH POC ABG pCO2 POC ABG pO2 Sodium 135 L Potassium Chloride Carbon Dioxide 21 L BUN Creatinine 0.5 L Glucose 155 H POC Glucose 166 H Calcium Phosphorus Magnesium AST ALT Alkaline Phosphatase Lactate Dehydrogenase C-Reactive Protein Total Protein Albumin Urine WBC (Auto) Miscellaneous Test Allied health notes reviewed: nursing
--- NOTE | 2018-04-30 13:17 | Progress Note ---
Assessment and Plan Assessment and plan: Hospitalist Consulted for Medical management of hypertension on 04/17/18, Patient admitted on 04/07/[address] Wynn Ms. Machado is a 58 y.o. woman with a history of obesity s/p lap sleeve gastrectomy with hiatal hernia repair and partial fundoplication 03/30/18, presents to ER with abdominal pains on 04/07/18. She was found to have perforation and under the following: DATE OF PROCEDURE 04/07/18 PREOPERATIVE DIAGNOSES: Pneumoperitoneum POSTOPERATIVE DIAGNOSES: 1. Gastric perforation SURGEON: Dr. Estes [place] CONSULTANT: Dony Perez DO THERAPIST OCCUPATIONAL PROCEDURE: 1. Diagnostic laparoscopy 2. Repair of gastric perforation 3. Abdominal washout 4. intraoperative EGD /Hypertension. Monitor BP, stable On Clonidine patch and iv prn Labetalol, Also Hydraazine iv prn. /Sepsis due to intraabdominal infection and PNA. - treated with cefepime and flagyl along with zosyn - total 17 days of abx - S/p vanco IV x 10 days until 04/19 for MSSA - monitored fever and leukocytosis off abx - ID Physician managing, restarted abx today again as cont to spike fever /Gastric perforation s/p exploratory lap, repair of perforation on 04/07/18. Surg is attending, managing, on TPN /Pneumoperitoneum due to gastric perforation, s/p repair of perforation on 04/07/18- per surgery /Acute respiratory failure with Pleural Effusion s/p thoracentesis 04/26/18 On supplemental Oxygen by [place] Pulmonology is managing /Bilateral pneumonia vs atelectasis, completed abx /Pleural Effusion s/p thoracentesis Pulmonology is followi /Hypokalemia, resolved /Obstructive seep apnea, CPAP at bedtime Full code status Disposition: SNF when cleared by surgery, ID and pulmonology I have asked the nurse to contact Dr. Beasley regarding fever History Interval history: Patient was seen and examined. Follow-up on current diagnosis of hypertension. Overnight uneventful. Patient denies any chest pain, shortness breath, nausea/ vomiting or severe headaches. Imaging, nursing note, chart, labs and old chart reviewed. Discussed with patient. Hospitalist Physical - Physical exam Narrative exam: GEN: WDWN, bmi 34, NAD, Awake, Alert, Orientated x3 HEENT: NCAT, EOMI, PERRL, OP Clear NECK: supple, no adenopathy, no thyromegaly, no JVD CVS/HEART: RRR, normal S1S2, pulses present bilaterally CHEST/LUNGS: diminished bs bilateral, Symmetrical chest expansion, reduced air entry bilaterally GI/Abdomen: soft,drains in place good bowel sounds, no guarding or rebound /Bladder: no suprapubic tenderness, no CVA or paraspinal tenderness EXT/Skin: no c/c/e, no obvious rash MSK: FROM x 4 Neuro: CN 2-12 grossly intact, no new focal deficits Psych: calm - Constitutional Vitals: Temp Pulse Resp BP Pulse Ox 98.3 F 90 20 144/76 100 04/30/18 11:35 04/30/18 11:35 04/30/18 11:35 04/30/18 11:35 04/30/18 11:35 General appearance: Present: no acute distress, obese Results - Labs CBC & Chem 7: 04/30/18 11:20 04/30/18 08:26 Labs: Laboratory Last Values WBC 6.4 K/mm3 (4.5-11.0) 04/30/18 11:20 RBC 3.16 M/mm3 (3.65-5.03) L 04/30/18 11:20 Hgb 9.1 gm/dl (10.1-14.3) L 04/30/18 11:20 Hct 27.0 % (30.3-42.9) L 04/30/18 11:20 MCV 86 fl (79-97) 04/30/18 11:20 MCH 29 pg (28-32) 04/30/18 11:20 MCHC 34 % (30-34) 04/30/18 11:20 RDW 14.3 % (13.2-15.2) 04/30/18 11:20 Plt Count 236 K/mm3 (140-440) 04/30/18 11:20 Lymph % (Auto) 22.2 % (13.4-35.0) 04/30/18 11:20 [place] % (Auto) 11.8 % (0.0-7.3) H 04/30/18 11:20 Eos % (Auto) 2.1 % (0.0-4.3) 04/30/18 11:20 Baso % (Auto) 0.5 % (0.0-1.8) 04/30/18 11:20 Lymph # 1.4 K/mm3 (1.2-5.4) 04/30/18 11:20 [place] # 0.8 K/mm3 (0.0-0.8) 04/30/18 11:20 Eos # 0.1 K/mm3 (0.0-0.4) 04/30/18 11:20 Baso # 0.0 K/mm3 (0.0-0.1) 04/30/18 11:20 Add Manual Diff Complete 04/16/18 06:12 Total Counted 100 04/16/18 06:12 Seg Neutrophils % 63.4 % (40.0-70.0) 04/30/18 11:20 Seg Neuts % (Manual) 88.0 % (40.0-70.0) H 04/16/18 06:12 Band Neutrophils % 1.0 % 04/16/18 06:12 Lymphocytes % (Manual) 5.0 % (13.4-35.0) L 04/16/18 06:12 Reactive Lymphs % (Man) 0 % 04/16/18 06:12 Monocytes % (Manual) 2.0 % (0.0-7.3) 04/16/18 06:12 Eosinophils % (Manual) 0 % (0.0-4.3) 04/16/18 06:12 Basophils % (Manual) 0 % (0.0-1.8) 04/16/18 06:12 Metamyelocytes % 4.0 % 04/16/18 06:12 Myelocytes % 0 % 04/16/18 06:12 Promyelocytes % 0 % 04/16/18 06:12 Blast Cells % 0 % 04/16/18 06:12 Nucleated RBC % Not Reportable 04/16/18 06:12 Seg Neutrophils # 4.1 K/mm3 (1.8-7.7) 04/30/18 11:20 Seg Neutrophils # Man 18.2 K/mm3 (1.8-7.7) H 04/16/18 06:12 Band Neutrophils # 0.2 K/mm3 04/16/18 06:12 Lymphocytes # (Manual) 1.0 K/mm3 (1.2-5.4) L 04/16/18 06:12 Abs React Lymphs (Man) 0.0 K/mm3 04/16/18 06:12 Monocytes # (Manual) 0.4 K/mm3 (0.0-0.8) 04/16/18 06:12 Eosinophils # (Manual) 0.0 K/mm3 (0.0-0.4) 04/16/18 06:12 Basophils # (Manual) 0.0 K/mm3 (0.0-0.1) 04/16/18 06:12 Metamyelocytes # 0.8 K/mm3 04/16/18 06:12 Myelocytes # 0.0 K/mm3 04/16/18 06:12 Promyelocytes # 0.0 K/mm3 04/16/18 06:12 Blast Cells # 0.0 K/mm3 04/16/18 06:12 WBC Morphology Not Reportable 04/16/18 06:12 Hypersegmented Neuts Not Reportable 04/16/18 06:12 Hyposegmented Neuts Not Reportable 04/16/18 06:12 Hypogranular Neuts Not Reportable 04/16/18 06:12 Smudge Cells Not Reportable 04/16/18 06:12 Toxic Granulation Not Reportable 04/16/18 06:12 Toxic Vacuolation Not Reportable 04/16/18 06:12 Dohle Bodies Not Reportable 04/16/18 06:12 Pelger-Huet Anomaly Not Reportable 04/16/18 06:12 Narendra Rods Not Reportable 04/16/18 06:12 Platelet Estimate Cons 04/16/18 06:12 Clumped Platelets Not Reportable 04/16/18 06:12 Plt Clumps, EDTA Not Reportable 04/16/18 06:12 Large Platelets Not Reportable 04/16/18 06:12 Giant Platelets Not Reportable 04/16/18 06:12 Platelet Satelliting Not Reportable 04/16/18 06:12 Plt Morphology Comment Not Reportable 04/16/18 06:12 RBC Morphology Not Reportable 04/16/18 06:12 Dimorphic RBCs Not Reportable 04/16/18 06:12 Polychromasia Few 04/16/18 06:12 Hypochromasia Not Reportable 04/16/18 06:12 Poikilocytosis Not Reportable 04/16/18 06:12 Anisocytosis 1+ 04/16/18 06:12 Microcytosis Not Reportable 04/16/18 06:12 Macrocytosis Not Reportable 04/16/18 06:12 Spherocytes Not Reportable 04/16/18 06:12 Pappenheimer Bodies Not Reportable 04/16/18 06:12 Sickle Cells Not Reportable 04/16/18 06:12 Target Cells Not Reportable 04/16/18 06:12 Tear Drop Cells Not Reportable 04/16/18 06:12 Ovalocytes Not Reportable 04/16/18 06:12 Helmet Cells Not Reportable 04/16/18 06:12 [place] Bodies Not Reportable 04/16/18 06:12 [facility] Rings Not Reportable 04/16/18 06:12 [place]ian Cells Not Reportable 04/16/18 06:12 Bite Cells Not Reportable 04/16/18 06:12 Crenated Cell Not Reportable 04/16/18 06:12 Elliptocytes Not Reportable 04/16/18 06:12 Acanthocytes (Spur) Not Reportable 04/16/18 06:12 Rouleaux Not Reportable 04/16/18 06:12 Hemoglobin C Crystals Not Reportable 04/16/18 06:12 Schistocytes Not Reportable 04/16/18 06:12 Malaria parasites Not Reportable 04/16/18 06:12 Giorgio Bodies Not Reportable 04/16/18 06:12 Hem Pathologist Commnt No 04/16/18 06:12 PT 17.2 Sec. (12.2-14.9) H 04/26/18 16:39 INR 1.33 (0.87-1.13) H 04/26/18 16:39 APTT 29.0 Sec. (24.2-36.6) 04/07/18 16:28 POC ABG pH 7.519 (7.35-7.45) H 04/10/18 12:59 POC ABG pCO2 29.3 (35-45) L 04/10/18 12:59 POC ABG pO2 63 (80-105) L 04/10/18 12:59 POC ABG HCO3 23.9 04/10/18 12:59 POC ABG Total CO2 25 04/10/18 12:59 POC ABG O2 Sat 94 04/10/18 12:59 POC ABG Base Excess 1 04/10/18 12:59 VBG pH 7.413 (7.320-7.420) 04/07/18 09:41 FiO2 28 % 04/10/18 12:59 Sodium 135 mmol/L (137-145) L 04/30/18 08:26 Potassium 3.9 mmol/L (3.6-5.0) 04/30/18 08:26 Chloride 102.9 mmol/L (98-107) 04/30/18 08:26 Carbon Dioxide 21 mmol/L (22-30) L 04/30/18 08:26 Anion Gap 15 mmol/L 04/30/18 08:26 BUN 12 mg/dL (7-17) 04/30/18 08:26 Creatinine 0.5 mg/dL (0.7-1.2) L 04/30/18 08:26 Estimated GFR > 60 ml/min 04/30/18 08:26 BUN/Creatinine Ratio 24 % 04/30/18 08:26 Glucose 155 mg/dL (65-100) H 04/30/18 08:26 POC Glucose 166 (70-105) H 04/30/18 06:18 Lactic Acid 0.80 mmol/L (0.7-2.0) 04/08/18 13:33 Calcium 8.6 mg/dL (8.4-10.2) 04/30/18 08:26 Phosphorus 3.70 mg/dL (2.5-4.5) 04/30/18 08:26 Magnesium 1.90 mg/dL (1.7-2.3) 04/30/18 08:26 Total Bilirubin 0.40 mg/dL (0.1-1.2) 04/27/18 05:50 AST 97 units/L (5-40) H 04/27/18 05:50 ALT 222 units/L (7-56) H 04/27/18 05:50 Alkaline Phosphatase 191 units/L (35-129) H 04/27/18 05:50 Lactate Dehydrogenase 266 units/L (91-180) H 04/26/18 16:10 Total Creatine Kinase 37 units/L (30-135) 04/19/18 12:55 CK-MB (CK-2) 1.0 ng/mL (0.0-4.0) 04/19/18 12:55 CK-MB (CK-2) Rel Index 2.7 (0-4) 04/19/18 12:55 Troponin T < 0.010 ng/mL (0.00-0.029) 04/19/18 12:55 C-Reactive Protein 29.60 mg/dL (0.00-1.30) H 04/13/18 04:20 Total Protein 7.5 g/dL (6.3-8.2) 04/27/18 05:50 Albumin 2.5 g/dL (3.9-5) L 04/27/18 05:50 Albumin/Globulin Ratio 0.5 % 04/27/18 05:50 Triglycerides 114 mg/dL (2-149) 04/16/18 08:52 Urine Color Yellow (Yellow) 04/24/18 15:20 Urine Turbidity Clear (Clear) 04/24/18 15:20 Urine pH 6.0 (5.0-7.0) 04/24/18 15:20 Ur Specific [place] 1.023 (1.003-1.030) 04/24/18 15:20 Urine Protein 30 mg/dl mg/dL (Negative) 04/24/18 15:20 Urine Glucose (UA) Neg mg/dL (Negative) 04/24/18 15:20 Urine Ketones Neg mg/dL (Negative) 04/24/18 15:20 Urine Blood Neg (Negative) 04/24/18 15:20 Urine Nitrite Neg (Negative) 04/24/18 15:20 Urine Bilirubin Neg (Negative) 04/24/18 15:20 Urine Urobilinogen < 2.0 mg/dL (<2.0) 04/24/18 15:20 Ur Leukocyte Esterase Neg (Negative) 04/24/18 15:20 Urine WBC (Auto) 3.0 /HPF (0.0-6.0) 04/24/18 15:20 Urine RBC (Auto) 4.0 /HPF (0.0-6.0) 04/24/18 15:20 U Epithel Cells (Auto) 4.0 /HPF (0-13.0) 04/24/18 15:20 Urine Mucus Few /HPF 04/24/18 15:20 Vancomycin Trough 13.2 ug/mL (5.0-20.0) 04/14/18 15:51 Miscellaneous Test Flexitest 1 H 04/13/18 13:37
--- NOTE | 2018-04-30 13:23 | Progress Note ---
Assessment and Plan Assessment: 1) Sepsis: new fever resolving, leukocytosis resolved. Etiology most likely perf / intra-abdominal collection? vs complicated pneumonia 2) Gastric perf and intra-abdominal fluid collection -S/P OR for ex lap, abdominal washout, repair of gastric perforation and placement of drains on 04/08/18 -04/07 peritoneal fluid + Serratia x 2 -Repeat CTA 04/09 showed no PE however increase in left pleural effusion with dense consolidation consistent with atelectasis and a large fluid collection 14 x 4.7 cm in the left lobe of the fever with air bubbles. -CRP=52 --> 45 -procal=0.3 -Repeat CT showed large left pleural effusion, smaller left hep lobe collection and large splenic collection 4.2x6.1 cm -S/P further drain placement 04/16 cx +MSSA and Leuconostoc. S/p vanco IV x 10 days until 04/19 -s/p cefepime and flagyl D10/10 (s/p zosyn 7 days) - total 17 days of abx -Repeat CT showed still left liver lobe fluid collection 10x1.3cm with gas, loculated left pleural effusion with consolidation 3) S/P lap sleeve gastrectomy with hiatal hernia repair and partial fundoplication 03/30/18 4) Presumed pnemonia with loculated left pleural effusion -S/P thoracentesis...minimal complex thick pleural effusion, only 0.5 cc drained s/p Drainage catheter evaluation through indwelling drain, drainage catheter exchange by IR 04/26/18 Plan: -continue zosyn and zyvox - D5/10 -monitor fever and leukocytosis -PT Dr Baron will be rounding until 05/06 Thank you for your consultation, will follow up with you. Katerin Cross MD Infectious Diseases Specialist [facility] [phone] O [phone] Subjective Date of service: 04/30/18 Principal diagnosis: Sepsis Syndrome; Acute Hypoxemic Resp Failure; Acute Encephalopathy Interval history: tmax 100.9, feels better Microbiology: Blood cultures: 04/07 neg 04/10 neg 04/24 ngtd Peritoneal cultures: 04/07 Serratia x 2 04/10 ngtd 04/16 MSSA and Strep sp Pleural fluid: 04/26 neg Current Antimicrobials: zosyn 04/26 zyvox 04/26 Previous Antimicrobials: Fluconazole Zosyn 04/08-04/14 vanco 04/10-04/19 cefepime and flagyl 04/14-04/24 Objective - Exam Narrative Exam: General appearance: Alert in mild shortness of breath NC O2 Eyes: anicteric sclerae, moist conjunctivae; no lid-lag; PERRLA HENT: Atraumatic; oropharynx NGT Neck: Trachea midline; supple, no thyromegaly or lymphadenopathy Lungs: CTA CV: RRR Abdomen: Obese, Soft, midline surgical wound covered with dressings drain in place KRISTI R minimal purulent output KRISTI L minimal serosang output, new left chest tube Extremities: No peripheral edema or extremity lymphadenopathy Skin: Normal temperature, turgor and texture; no rash, ulcers or subcutaneous nodules Psych: Appropriate affect, alert and oriented to person, place and time. Neuro: alert and oriented x 3. Moving all extermities Lines: right PICC, staton - Constitutional Vitals: Vital Signs Temp Pulse Resp BP Pulse Ox 98.3 F 90 20 144/76 100 04/30/18 11:35 04/30/18 11:35 04/30/18 11:35 04/30/18 11:35 04/30/18 11:35 Temperature -Last 24 Hours Temperature 98.3 F Temperature 99.3 F Temperature 100.9 F Temperature 99.0 F Temperature 99.1 F Temperature 98.4 F - Labs CBC & Chem 7: 04/30/18 11:20 04/30/18 08:26 Labs: Abnormal lab results 04/29/18 04/29/18 04/30/18 Range/Units 17:45 22:47 06:18 RBC (3.65-5.03) M/mm3 Hgb (10.1-14.3) gm/dl Hct (30.3-42.9) % [place] % (Auto) (0.0-7.3) % Sodium (137-145) mmol/L Carbon Dioxide (22-30) mmol/L Creatinine (0.7-1.2) mg/dL Glucose (65-100) mg/dL POC Glucose 142 H 317 H 166 H (70-105) 04/30/18 04/30/18 Range/Units 08:26 11:20 RBC 3.16 L (3.65-5.03) M/mm3 Hgb 9.1 L (10.1-14.3) gm/dl Hct 27.0 L (30.3-42.9) % [place] % (Auto) 11.8 H (0.0-7.3) % Sodium 135 L (137-145) mmol/L Carbon Dioxide 21 L (22-30) mmol/L Creatinine 0.5 L (0.7-1.2) mg/dL Glucose 155 H (65-100) mg/dL POC Glucose (70-105)
--- NOTE | 2018-04-30 14:35 | Progress Note ---
Assessment and Plan Patient awake. Resting on room air . O2 saturation 98% on room air.No acute respiratory distress.Patient Goes on CPAP during night time. - Patient Problems (1) Pneumoperitoneum Current Visit: Yes Status: Acute Plan to address problem: Appears improved. Last chest xray not reported pneumomediastinum. (2) Asthma Current Visit: Yes Status: Chronic Qualifiers: Asthma severity: unspecified severity Plan to address problem: Brovanna/Budesonide aerosol treatments q 12 hours. Albuterol inhaler 2 puffs po qid PRN for shortness of breath. Continue S/C Lovenox. Continue Protonix. (3) Sepsis Current Visit: Yes Status: Acute Qualifiers: Sepsis type: sepsis due to unspecified organism Qualified Code(s): A41.9 - Sepsis, unspecified organism Plan to address problem: Patient is on Zyvox and zosyn. (4) Pleural effusion on left Current Visit: Yes Status: Acute Plan to address problem: S/P left thoracentesis. Pleural fluid results pending. Subjective Date of service: 04/30/18 Principal diagnosis: Sepsis Syndrome; Acute Hypoxemic Resp Failure; Acute Encephalopathy Interval history: Patient awake. Resting on room air . O2 saturation 98% on room air.No acute respiratory distress.Patient Goes on CPAP during night time. Objective Vital Signs - 12hr 04/30/18 04/30/18 04/30/18 04:24 08:01 08:18 Temperature 99.3 F Pulse Rate 99 H Pulse Rate [ 78 82 Anterior Bilateral] Respiratory 20 Rate Respiratory 18 18 Rate [Anterior Bilateral] Blood Pressure 135/68 Blood Pressure [Left] O2 Sat by Pulse 96 Oximetry 04/30/18 04/30/18 04/30/18 10:05 10:36 11:35 Temperature 98.3 F Pulse Rate 99 H 90 Pulse Rate [ Anterior Bilateral] Respiratory 20 20 Rate Respiratory Rate [Anterior Bilateral] Blood Pressure 135/68 Blood Pressure 144/76 [Left] O2 Sat by Pulse 100 Oximetry Constitutional: no acute distress, alert Eyes: non-icteric ENT: oropharynx moist, other (no thyromegaly) Neck: supple, no lymphadenopathy, no JVD, other (large neck circumference) Effort: mildly labored Ascultation: Bilateral: diminished breath sounds, rhonchi (scant in bases) Percussion: Bilateral: not dull Cardiovascular: regular rate and rhythm, other (No R/M) Gastrointestinal: hypoactive bowel sounds, soft, tender (mild), non-distended, other (no palpable HSM) Integumentary: normal Extremities: no cyanosis, no edema, pulses normal, no ischemia or petechiae Neurologic: normal mental status, non-focal exam (grossly), pupils equal and round, CN II-XII normal, motor strength normal and Psychiatric: mood appropriate, affect normal CBC and BMP: 04/30/18 11:20 04/30/18 08:26 ABG, PT/INR, D-dimer: ABG POC ABG pH 7.519 (7.35-7.45) H 04/10/18 12:59 POC ABG pCO2 29.3 (35-45) L 04/10/18 12:59 POC ABG pO2 63 (80-105) L 04/10/18 12:59 POC ABG HCO3 23.9 04/10/18 12:59 POC ABG Total CO2 25 04/10/18 12:59 POC ABG O2 Sat 94 04/10/18 12:59 PT/INR, D-dimer PT 17.2 Sec. (12.2-14.9) H 04/26/18 16:39 INR 1.33 (0.87-1.13) H 04/26/18 16:39 Abnormal lab findings: Abnormal Labs 04/07/18 04/07/18 04/07/18 00:05 00:05 09:41 WBC 18.4 H 21.3 H RBC Hgb Hct MCV MCHC RDW Plt Count Lymph % (Auto) 4.5 L [place] % (Auto) Lymph # 0.8 L [place] # 1.2 H Baso # Seg Neutrophils % 88.9 H Seg Neuts % (Manual) 85.0 H Lymphocytes % (Manual) 4.0 L Monocytes % (Manual) Nucleated RBC % Seg Neutrophils # 16.4 H Seg Neutrophils # Man 18.1 H Lymphocytes # (Manual) 0.9 L Monocytes # (Manual) 1.1 H PT INR POC ABG pH POC ABG pCO2 POC ABG pO2 Sodium Potassium Chloride Carbon Dioxide BUN Creatinine Glucose 123 H POC Glucose Calcium 8.0 L Phosphorus Magnesium 1.60 L AST 59 H ALT Alkaline Phosphatase Lactate Dehydrogenase C-Reactive Protein Total Protein Albumin 2.9 L Urine WBC (Auto) Miscellaneous Test 04/07/18 04/08/18 04/08/18 09:41 00:20 10:25 WBC 19.2 H RBC Hgb Hct MCV MCHC RDW Plt Count Lymph % (Auto) 5.4 L [place] % (Auto) Lymph # 1.0 L [place] # 1.1 H Baso # Seg Neutrophils % 88.9 H Seg Neuts % (Manual) Lymphocytes % (Manual) Monocytes % (Manual) Nucleated RBC % Seg Neutrophils # 17.1 H Seg Neutrophils # Man Lymphocytes # (Manual) Monocytes # (Manual) PT INR POC ABG pH POC ABG pCO2 POC ABG pO2 Sodium Potassium 3.3 L Chloride 95.1 L Carbon Dioxide 21 L BUN Creatinine Glucose 113 H POC Glucose Calcium Phosphorus Magnesium AST ALT Alkaline Phosphatase Lactate Dehydrogenase C-Reactive Protein Total Protein Albumin 3.6 L Urine WBC (Auto) 45.0 H Miscellaneous Test 04/08/18 04/08/18 04/08/18 10:25 13:33 23:53 WBC 12.8 H RBC Hgb Hct MCV MCHC RDW Plt Count Lymph % (Auto) [place] % (Auto) Lymph # [place] # Baso # Seg Neutrophils % Seg Neuts % (Manual) 97.0 H Lymphocytes % (Manual) 2.0 L Monocytes % (Manual) Nucleated RBC % Seg Neutrophils # Seg Neutrophils # Man 12.4 H Lymphocytes # (Manual) 0.3 L Monocytes # (Manual) PT INR POC ABG pH POC ABG pCO2 POC ABG pO2 Sodium Potassium 3.5 L Chloride Carbon Dioxide BUN Creatinine Glucose 123 H POC Glucose Calcium 7.9 L Phosphorus Magnesium AST 53 H ALT Alkaline Phosphatase Lactate Dehydrogenase C-Reactive Protein 52.00 H Total Protein 6.1 L Albumin 2.7 L Urine WBC (Auto) Miscellaneous Test 04/09/18 04/09/18 04/09/18 04:20 04:20 13:38 WBC 16.2 H RBC Hgb Hct MCV MCHC RDW Plt Count Lymph % (Auto) [place] % (Auto) Lymph # [place] # Baso # Seg Neutrophils % Seg Neuts % (Manual) 89.0 H Lymphocytes % (Manual) 4.0 L Monocytes % (Manual) Nucleated RBC % Seg Neutrophils # Seg Neutrophils # Man 14.4 H Lymphocytes # (Manual) 0.6 L Monocytes # (Manual) PT INR POC ABG pH 7.494 H POC ABG pCO2 31.6 L POC ABG pO2 68 L Sodium Potassium 3.5 L Chloride Carbon Dioxide BUN Creatinine 0.6 L Glucose 117 H POC Glucose Calcium 7.9 L Phosphorus 1.50 L D Magnesium AST ALT Alkaline Phosphatase Lactate Dehydrogenase C-Reactive Protein Total Protein 5.6 L Albumin 2.9 L Urine WBC (Auto) Miscellaneous Test 04/09/18 04/09/18 04/09/18 18:25 21:45 21:45 WBC 21.3 H RBC 3.62 L Hgb Hct MCV MCHC 35 H RDW Plt Count Lymph % (Auto) [place] % (Auto) Lymph # [place] # Baso # Seg Neutrophils % Seg Neuts % (Manual) 90.0 H Lymphocytes % (Manual) 6.0 L Monocytes % (Manual) Nucleated RBC % 1.0 H Seg Neutrophils # Seg Neutrophils # Man 19.2 H Lymphocytes # (Manual) Monocytes # (Manual) 0.9 H PT INR POC ABG pH POC ABG pCO2 POC ABG pO2 Sodium Potassium Chloride Carbon Dioxide BUN 5 L Creatinine 0.5 L Glucose 134 H POC Glucose 155 H Calcium 7.9 L Phosphorus 2.20 L D Magnesium AST ALT Alkaline Phosphatase Lactate Dehydrogenase C-Reactive Protein Total Protein Albumin Urine WBC (Auto) Miscellaneous Test 04/09/18 04/10/18 04/10/18 23:38 04:07 04:07 WBC 20.2 H RBC 3.38 L Hgb 9.4 L Hct 28.9 L MCV MCHC RDW Plt Count Lymph % (Auto) [place] % (Auto) Lymph # [place] # Baso # Seg Neutrophils % Seg Neuts % (Manual) Lymphocytes % (Manual) 6.0 L Monocytes % (Manual) Nucleated RBC % Seg Neutrophils # Seg Neutrophils # Man 10.7 H Lymphocytes # (Manual) Monocytes # (Manual) PT INR POC ABG pH POC ABG pCO2 POC ABG pO2 Sodium Potassium Chloride Carbon Dioxide BUN 6 L Creatinine 0.6 L Glucose 176 H POC Glucose 160 H Calcium 7.7 L Phosphorus Magnesium AST ALT Alkaline Phosphatase Lactate Dehydrogenase C-Reactive Protein Total Protein Albumin Urine WBC (Auto) Miscellaneous Test 04/10/18 04/10/18 04/10/18 05:29 11:55 12:59 WBC RBC Hgb Hct MCV MCHC RDW Plt Count Lymph % (Auto) [place] % (Auto) Lymph # [place] # Baso # Seg Neutrophils % Seg Neuts % (Manual) Lymphocytes % (Manual) Monocytes % (Manual) Nucleated RBC % Seg Neutrophils # Seg Neutrophils # Man Lymphocytes # (Manual) Monocytes # (Manual) PT INR POC ABG pH 7.519 H POC ABG pCO2 29.3 L POC ABG pO2 63 L Sodium Potassium Chloride Carbon Dioxide BUN Creatinine Glucose POC Glucose 171 H 194 H Calcium Phosphorus Magnesium AST ALT Alkaline Phosphatase Lactate Dehydrogenase C-Reactive Protein Total Protein Albumin Urine WBC (Auto) Miscellaneous Test 04/10/18 04/10/18 04/10/18 18:11 18:28 18:28 WBC 22.7 H RBC 3.62 L Hgb Hct MCV MCHC RDW Plt Count Lymph % (Auto) [place] % (Auto) Lymph # [place] # Baso # Seg Neutrophils % Seg Neuts % (Manual) 84.0 H Lymphocytes % (Manual) 7.0 L Monocytes % (Manual) 8.0 H Nucleated RBC % Seg Neutrophils # Seg Neutrophils # Man 19.1 H Lymphocytes # (Manual) Monocytes # (Manual) 1.8 H PT INR POC ABG pH POC ABG pCO2 POC ABG pO2 Sodium Potassium Chloride Carbon Dioxide BUN Creatinine Glucose POC Glucose 118 H Calcium Phosphorus Magnesium AST ALT Alkaline Phosphatase Lactate Dehydrogenase C-Reactive Protein 45.20 H Total Protein Albumin Urine WBC (Auto) Miscellaneous Test 04/10/18 04/10/18 04/11/18 18:28 23:45 03:35 WBC 20.9 H RBC 3.54 L Hgb 10.0 L Hct MCV MCHC RDW Plt Count Lymph % (Auto) [place] % (Auto) Lymph # [place] # Baso # Seg Neutrophils % Seg Neuts % (Manual) 80.0 H Lymphocytes % (Manual) 6.0 L Monocytes % (Manual) Nucleated RBC % Seg Neutrophils # Seg Neutrophils # Man 16.7 H Lymphocytes # (Manual) Monocytes # (Manual) PT INR POC ABG pH POC ABG pCO2 POC ABG pO2 Sodium Potassium 3.5 L Chloride Carbon Dioxide BUN 5 L Creatinine 0.5 L Glucose 108 H POC Glucose 149 H Calcium 8.3 L Phosphorus Magnesium AST ALT Alkaline Phosphatase Lactate Dehydrogenase C-Reactive Protein Total Protein Albumin Urine WBC (Auto) Miscellaneous Test 04/11/18 04/11/18 04/11/18 03:35 06:17 11:29 WBC RBC Hgb Hct MCV MCHC RDW Plt Count Lymph % (Auto) [place] % (Auto) Lymph # [place] # Baso # Seg Neutrophils % Seg Neuts % (Manual) Lymphocytes % (Manual) Monocytes % (Manual) Nucleated RBC % Seg Neutrophils # Seg Neutrophils # Man Lymphocytes # (Manual) Monocytes # (Manual) PT INR POC ABG pH POC ABG pCO2 POC ABG pO2 Sodium Potassium Chloride Carbon Dioxide BUN Creatinine 0.5 L Glucose 143 H POC Glucose 155 H 158 H Calcium 8.2 L Phosphorus Magnesium AST ALT Alkaline Phosphatase Lactate Dehydrogenase C-Reactive Protein Total Protein 6.0 L Albumin 2.2 L Urine WBC (Auto) Miscellaneous Test 04/11/18 04/11/18 04/12/18 18:13 23:51 05:29 WBC RBC Hgb Hct MCV MCHC RDW Plt Count Lymph % (Auto) [place] % (Auto) Lymph # [place] # Baso # Seg Neutrophils % Seg Neuts % (Manual) Lymphocytes % (Manual) Monocytes % (Manual) Nucleated RBC % Seg Neutrophils # Seg Neutrophils # Man Lymphocytes # (Manual) Monocytes # (Manual) PT INR POC ABG pH POC ABG pCO2 POC ABG pO2 Sodium Potassium Chloride Carbon Dioxide BUN Creatinine Glucose POC Glucose 135 H 143 H 150 H Calcium Phosphorus Magnesium AST ALT Alkaline Phosphatase Lactate Dehydrogenase C-Reactive Protein Total Protein Albumin Urine WBC (Auto) Miscellaneous Test 04/12/18 04/12/18 04/13/18 05:40 05:40 00:32 WBC 18.0 H RBC 3.34 L Hgb 9.5 L Hct 28.9 L MCV MCHC RDW Plt Count Lymph % (Auto) 7.4 L [place] % (Auto) 10.8 H Lymph # [place] # 1.9 H Baso # Seg Neutrophils % 81.1 H Seg Neuts % (Manual) Lymphocytes % (Manual) Monocytes % (Manual) Nucleated RBC % Seg Neutrophils # 14.6 H Seg Neutrophils # Man Lymphocytes # (Manual) Monocytes # (Manual) PT INR POC ABG pH POC ABG pCO2 POC ABG pO2 Sodium Potassium Chloride 107.7 H Carbon Dioxide 21 L BUN Creatinine 0.6 L Glucose 140 H POC Glucose 144 H Calcium Phosphorus Magnesium AST ALT Alkaline Phosphatase Lactate Dehydrogenase C-Reactive Protein Total Protein Albumin Urine WBC (Auto) Miscellaneous Test 04/13/18 04/13/18 04/13/18 04:20 04:20 04:20 WBC 18.1 H RBC 3.52 L Hgb 9.8 L Hct 30.1 L MCV MCHC RDW Plt Count Lymph % (Auto) 11.1 L [place] % (Auto) 13.6 H Lymph # [place] # 2.5 H Baso # Seg Neutrophils % 74.4 H Seg Neuts % (Manual) Lymphocytes % (Manual) Monocytes % (Manual) Nucleated RBC % Seg Neutrophils # 13.4 H Seg Neutrophils # Man Lymphocytes # (Manual) Monocytes # (Manual) PT INR POC ABG pH POC ABG pCO2 POC ABG pO2 Sodium Potassium Chloride Carbon Dioxide BUN Creatinine 0.5 L Glucose 142 H POC Glucose Calcium Phosphorus Magnesium AST ALT Alkaline Phosphatase Lactate Dehydrogenase C-Reactive Protein 29.60 H Total Protein Albumin Urine WBC (Auto) Miscellaneous Test 04/13/18 04/13/18 04/13/18 05:35 13:37 23:50 WBC RBC Hgb Hct MCV MCHC RDW Plt Count Lymph % (Auto) [place] % (Auto) Lymph # [place] # Baso # Seg Neutrophils % Seg Neuts % (Manual) Lymphocytes % (Manual) Monocytes % (Manual) Nucleated RBC % Seg Neutrophils # Seg Neutrophils # Man Lymphocytes # (Manual) Monocytes # (Manual) PT INR POC ABG pH POC ABG pCO2 POC ABG pO2 Sodium Potassium Chloride Carbon Dioxide BUN Creatinine Glucose POC Glucose 142 H 160 H Calcium Phosphorus Magnesium AST ALT Alkaline Phosphatase Lactate Dehydrogenase C-Reactive Protein Total Protein Albumin Urine WBC (Auto) Miscellaneous Test Flexitest 1 H 04/14/18 04/14/18 04/14/18 04:00 04:00 05:29 WBC 22.1 H RBC 3.59 L Hgb 9.9 L Hct MCV MCHC RDW Plt Count Lymph % (Auto) [place] % (Auto) Lymph # [place] # Baso # Seg Neutrophils % Seg Neuts % (Manual) 73.0 H Lymphocytes % (Manual) 9.0 L Monocytes % (Manual) 11.0 H Nucleated RBC % Seg Neutrophils # Seg Neutrophils # Man 16.1 H Lymphocytes # (Manual) Monocytes # (Manual) 2.4 H PT INR POC ABG pH POC ABG pCO2 POC ABG pO2 Sodium Potassium Chloride Carbon Dioxide BUN Creatinine Glucose 155 H POC Glucose 133 H Calcium Phosphorus Magnesium 2.50 H AST ALT Alkaline Phosphatase Lactate Dehydrogenase C-Reactive Protein Total Protein Albumin Urine WBC (Auto) Miscellaneous Test 04/14/18 04/14/18 04/14/18 12:47 16:01 23:42 WBC RBC Hgb Hct MCV MCHC RDW Plt Count Lymph % (Auto) [place] % (Auto) Lymph # [place] # Baso # Seg Neutrophils % Seg Neuts % (Manual) Lymphocytes % (Manual) Monocytes % (Manual) Nucleated RBC % Seg Neutrophils # Seg Neutrophils # Man Lymphocytes # (Manual) Monocytes # (Manual) PT INR POC ABG pH POC ABG pCO2 POC ABG pO2 Sodium Potassium Chloride Carbon Dioxide BUN Creatinine Glucose POC Glucose 183 H 153 H 172 H Calcium Phosphorus Magnesium AST ALT Alkaline Phosphatase Lactate Dehydrogenase C-Reactive Protein Total Protein Albumin Urine WBC (Auto) Miscellaneous Test 04/15/18 04/15/18 04/15/18 04:42 04:42 05:49 WBC 21.5 H RBC 3.37 L Hgb 9.4 L Hct 28.9 L MCV MCHC RDW Plt Count 490 H Lymph % (Auto) [place] % (Auto) Lymph # [place] # Baso # Seg Neutrophils % Seg Neuts % (Manual) 77.0 H Lymphocytes % (Manual) 7.0 L Monocytes % (Manual) 10.0 H Nucleated RBC % Seg Neutrophils # Seg Neutrophils # Man 16.6 H Lymphocytes # (Manual) Monocytes # (Manual) 2.2 H PT INR POC ABG pH POC ABG pCO2 POC ABG pO2 Sodium Potassium 3.4 L Chloride 107.5 H Carbon Dioxide 21 L BUN Creatinine Glucose 165 H POC Glucose 147 H Calcium 8.0 L Phosphorus Magnesium 2.40 H AST ALT Alkaline Phosphatase Lactate Dehydrogenase C-Reactive Protein Total Protein Albumin Urine WBC (Auto) Miscellaneous Test 04/15/18 04/15/18 04/16/18 11:17 17:35 00:26 WBC RBC Hgb Hct MCV MCHC RDW Plt Count Lymph % (Auto) [place] % (Auto) Lymph # [place] # Baso # Seg Neutrophils % Seg Neuts % (Manual) Lymphocytes % (Manual) Monocytes % (Manual) Nucleated RBC % Seg Neutrophils # Seg Neutrophils # Man Lymphocytes # (Manual) Monocytes # (Manual) PT INR POC ABG pH POC ABG pCO2 POC ABG pO2 Sodium Potassium Chloride Carbon Dioxide BUN Creatinine Glucose POC Glucose 119 H 169 H 176 H Calcium Phosphorus Magnesium AST ALT Alkaline Phosphatase Lactate Dehydrogenase C-Reactive Protein Total Protein Albumin Urine WBC (Auto) Miscellaneous Test 04/16/18 04/16/18 04/16/18 06:12 06:19 06:21 WBC 20.7 H RBC 3.25 L Hgb 9.0 L Hct MCV MCHC 29 L RDW 16.7 H Plt Count 498 H Lymph % (Auto) [place] % (Auto) Lymph # [place] # Baso # Seg Neutrophils % Seg Neuts % (Manual) 88.0 H Lymphocytes % (Manual) 5.0 L Monocytes % (Manual) Nucleated RBC % Seg Neutrophils # Seg Neutrophils # Man 18.2 H Lymphocytes # (Manual) 1.0 L Monocytes # (Manual) PT INR POC ABG pH POC ABG pCO2 POC ABG pO2 Sodium Potassium Chloride Carbon Dioxide BUN Creatinine Glucose POC Glucose > 500 H 493 H Calcium Phosphorus Magnesium AST ALT Alkaline Phosphatase Lactate Dehydrogenase C-Reactive Protein Total Protein Albumin Urine WBC (Auto) Miscellaneous Test 04/16/18 04/16/18 04/16/18 06:24 08:52 14:05 WBC RBC Hgb Hct MCV MCHC RDW Plt Count Lymph % (Auto) [place] % (Auto) Lymph # [place] # Baso # Seg Neutrophils % Seg Neuts % (Manual) Lymphocytes % (Manual) Monocytes % (Manual) Nucleated RBC % Seg Neutrophils # Seg Neutrophils # Man Lymphocytes # (Manual) Monocytes # (Manual) PT INR POC ABG pH POC ABG pCO2 POC ABG pO2 Sodium Potassium 3.4 L Chloride Carbon Dioxide BUN Creatinine 0.5 L Glucose 166 H POC Glucose 173 H 196 H Calcium 8.2 L Phosphorus Magnesium AST ALT Alkaline Phosphatase Lactate Dehydrogenase C-Reactive Protein Total Protein Albumin Urine WBC (Auto) Miscellaneous Test 04/16/18 04/17/18 04/17/18 17:17 00:06 04:50 WBC 16.0 H RBC 3.12 L Hgb 8.7 L Hct 29.0 L MCV MCHC RDW 16.2 H Plt Count 455 H Lymph % (Auto) 9.4 L [place] % (Auto) 7.7 H Lymph # [place] # 1.2 H Baso # Seg Neutrophils % 81.9 H Seg Neuts % (Manual) Lymphocytes % (Manual) Monocytes % (Manual) Nucleated RBC % Seg Neutrophils # 13.1 H Seg Neutrophils # Man Lymphocytes # (Manual) Monocytes # (Manual) PT INR POC ABG pH POC ABG pCO2 POC ABG pO2 Sodium Potassium Chloride Carbon Dioxide BUN Creatinine Glucose POC Glucose 189 H 190 H Calcium Phosphorus Magnesium AST ALT Alkaline Phosphatase Lactate Dehydrogenase C-Reactive Protein Total Protein Albumin Urine WBC (Auto) Miscellaneous Test 04/17/18 04/17/18 04/17/18 04:50 05:38 07:17 WBC RBC Hgb Hct MCV MCHC RDW Plt Count Lymph % (Auto) [place] % (Auto) Lymph # [place] # Baso # Seg Neutrophils % Seg Neuts % (Manual) Lymphocytes % (Manual) Monocytes % (Manual) Nucleated RBC % Seg Neutrophils # Seg Neutrophils # Man Lymphocytes # (Manual) Monocytes # (Manual) PT INR POC ABG pH POC ABG pCO2 POC ABG pO2 Sodium 136 L Potassium 3.4 L Chloride 96.9 L Carbon Dioxide BUN Creatinine 0.6 L Glucose 167 H POC Glucose 190 H Calcium 7.6 L 8.0 L Phosphorus Magnesium AST ALT Alkaline Phosphatase Lactate Dehydrogenase C-Reactive Protein Total Protein Albumin Urine WBC (Auto) Miscellaneous Test 04/17/18 04/17/18 04/17/18 11:50 18:37 23:53 WBC RBC Hgb Hct MCV MCHC RDW Plt Count Lymph % (Auto) [place] % (Auto) Lymph # [place] # Baso # Seg Neutrophils % Seg Neuts % (Manual) Lymphocytes % (Manual) Monocytes % (Manual) Nucleated RBC % Seg Neutrophils # Seg Neutrophils # Man Lymphocytes # (Manual) Monocytes # (Manual) PT INR POC ABG pH POC ABG pCO2 POC ABG pO2 Sodium Potassium Chloride Carbon Dioxide BUN Creatinine Glucose POC Glucose 163 H 167 H 142 H Calcium Phosphorus Magnesium AST ALT Alkaline Phosphatase Lactate Dehydrogenase C-Reactive Protein Total Protein Albumin Urine WBC (Auto) Miscellaneous Test 04/18/18 04/18/18 04/18/18 05:59 10:05 12:25 WBC RBC Hgb Hct MCV MCHC RDW Plt Count Lymph % (Auto) [place] % (Auto) Lymph # [place] # Baso # Seg Neutrophils % Seg Neuts % (Manual) Lymphocytes % (Manual) Monocytes % (Manual) Nucleated RBC % Seg Neutrophils # Seg Neutrophils # Man Lymphocytes # (Manual) Monocytes # (Manual) PT INR POC ABG pH POC ABG pCO2 POC ABG pO2 Sodium Potassium Chloride Carbon Dioxide BUN Creatinine 0.5 L Glucose 127 H POC Glucose 144 H 171 H Calcium 8.2 L Phosphorus Magnesium AST ALT Alkaline Phosphatase Lactate Dehydrogenase C-Reactive Protein Total Protein Albumin Urine WBC (Auto) Miscellaneous Test 04/18/18 04/18/18 04/19/18 14:54 17:56 00:15 WBC 18.2 H RBC 2.95 L Hgb 8.9 L Hct 29.0 L MCV 98 H MCHC RDW 16.9 H Plt Count Lymph % (Auto) 9.2 L [place] % (Auto) Lymph # [place] # 1.2 H Baso # Seg Neutrophils % 82.7 H Seg Neuts % (Manual) Lymphocytes % (Manual) Monocytes % (Manual) Nucleated RBC % Seg Neutrophils # 15.1 H Seg Neutrophils # Man Lymphocytes # (Manual) Monocytes # (Manual) PT INR POC ABG pH POC ABG pCO2 POC ABG pO2 Sodium Potassium Chloride Carbon Dioxide BUN Creatinine Glucose POC Glucose 169 H 148 H Calcium Phosphorus Magnesium AST ALT Alkaline Phosphatase Lactate Dehydrogenase C-Reactive Protein Total Protein Albumin Urine WBC (Auto) Miscellaneous Test 04/19/18 04/19/18 04/19/18 05:21 08:00 08:00 WBC 18.7 H RBC Hgb Hct MCV MCHC RDW Plt Count 531 H Lymph % (Auto) [place] % (Auto) Lymph # [place] # Baso # Seg Neutrophils % Seg Neuts % (Manual) Lymphocytes % (Manual) Monocytes % (Manual) Nucleated RBC % Seg Neutrophils # Seg Neutrophils # Man Lymphocytes # (Manual) Monocytes # (Manual) PT INR POC ABG pH POC ABG pCO2 POC ABG pO2 Sodium Potassium Chloride Carbon Dioxide BUN 18 H Creatinine 0.5 L Glucose 141 H POC Glucose 146 H Calcium Phosphorus Magnesium AST ALT 76 H Alkaline Phosphatase 142 H Lactate Dehydrogenase C-Reactive Protein Total Protein Albumin 2.4 L Urine WBC (Auto) Miscellaneous Test 04/19/18 04/19/18 04/20/18 12:12 17:41 00:21 WBC RBC Hgb Hct MCV MCHC RDW Plt Count Lymph % (Auto) [place] % (Auto) Lymph # [place] # Baso # Seg Neutrophils % Seg Neuts % (Manual) Lymphocytes % (Manual) Monocytes % (Manual) Nucleated RBC % Seg Neutrophils # Seg Neutrophils # Man Lymphocytes # (Manual) Monocytes # (Manual) PT INR POC ABG pH POC ABG pCO2 POC ABG pO2 Sodium Potassium Chloride Carbon Dioxide BUN Creatinine Glucose POC Glucose 161 H 134 H 159 H Calcium Phosphorus Magnesium AST ALT Alkaline Phosphatase Lactate Dehydrogenase C-Reactive Protein Total Protein Albumin Urine WBC (Auto) Miscellaneous Test 04/20/18 04/20/18 04/20/18 04:00 04:00 07:05 WBC 16.5 H RBC 3.51 L Hgb 9.9 L Hct 30.1 L MCV MCHC RDW Plt Count 530 H Lymph % (Auto) 10.7 L [place] % (Auto) 9.2 H Lymph # [place] # 1.5 H Baso # Seg Neutrophils % 78.5 H Seg Neuts % (Manual) Lymphocytes % (Manual) Monocytes % (Manual) Nucleated RBC % Seg Neutrophils # 13.0 H Seg Neutrophils # Man Lymphocytes # (Manual) Monocytes # (Manual) PT INR POC ABG pH POC ABG pCO2 POC ABG pO2 Sodium Potassium Chloride Carbon Dioxide BUN 19 H Creatinine 0.6 L Glucose 185 H POC Glucose 166 H Calcium Phosphorus Magnesium AST ALT Alkaline Phosphatase Lactate Dehydrogenase C-Reactive Protein Total Protein Albumin Urine WBC (Auto) Miscellaneous Test 04/20/18 04/20/18 04/21/18 12:59 19:06 00:17 WBC RBC Hgb Hct MCV MCHC RDW Plt Count Lymph % (Auto) [place] % (Auto) Lymph # [place] # Baso # Seg Neutrophils % Seg Neuts % (Manual) Lymphocytes % (Manual) Monocytes % (Manual) Nucleated RBC % Seg Neutrophils # Seg Neutrophils # Man Lymphocytes # (Manual) Monocytes # (Manual) PT INR POC ABG pH POC ABG pCO2 POC ABG pO2 Sodium Potassium Chloride Carbon Dioxide BUN Creatinine Glucose POC Glucose 166 H 170 H 178 H Calcium Phosphorus Magnesium AST ALT Alkaline Phosphatase Lactate Dehydrogenase C-Reactive Protein Total Protein Albumin Urine WBC (Auto) Miscellaneous Test 04/21/18 04/21/18 04/21/18 06:15 06:15 06:39 WBC 15.1 H RBC 3.48 L Hgb 9.8 L Hct 30.2 L MCV MCHC RDW Plt Count 499 H Lymph % (Auto) [place] % (Auto) 8.7 H Lymph # [place] # 1.3 H Baso # 0.2 H Seg Neutrophils % 74.7 H Seg Neuts % (Manual) Lymphocytes % (Manual) Monocytes % (Manual) Nucleated RBC % Seg Neutrophils # 11.3 H Seg Neutrophils # Man Lymphocytes # (Manual) Monocytes # (Manual) PT INR POC ABG pH POC ABG pCO2 POC ABG pO2 Sodium Potassium Chloride 108.8 H Carbon Dioxide BUN 18 H Creatinine 0.6 L Glucose 157 H POC Glucose 153 H Calcium 8.0 L Phosphorus Magnesium AST ALT Alkaline Phosphatase Lactate Dehydrogenase C-Reactive Protein Total Protein Albumin Urine WBC (Auto) Miscellaneous Test 04/21/18 04/21/18 04/21/18 11:49 17:07 22:07 WBC RBC Hgb Hct MCV MCHC RDW Plt Count Lymph % (Auto) [place] % (Auto) Lymph # [place] # Baso # Seg Neutrophils % Seg Neuts % (Manual) Lymphocytes % (Manual) Monocytes % (Manual) Nucleated RBC % Seg Neutrophils # Seg Neutrophils # Man Lymphocytes # (Manual) Monocytes # (Manual) PT INR POC ABG pH POC ABG pCO2 POC ABG pO2 Sodium Potassium Chloride Carbon Dioxide BUN Creatinine Glucose POC Glucose 184 H 163 H 169 H Calcium Phosphorus Magnesium AST ALT Alkaline Phosphatase Lactate Dehydrogenase C-Reactive Protein Total Protein Albumin Urine WBC (Auto) Miscellaneous Test 04/22/18 04/22/18 04/22/18 07:00 07:00 08:52 WBC 14.0 H RBC 3.26 L Hgb 9.3 L Hct 28.6 L MCV MCHC RDW Plt Count 460 H Lymph % (Auto) 13.0 L [place] % (Auto) 10.1 H Lymph # [place] # 1.4 H Baso # Seg Neutrophils % 74.4 H Seg Neuts % (Manual) Lymphocytes % (Manual) Monocytes % (Manual) Nucleated RBC % Seg Neutrophils # 10.4 H Seg Neutrophils # Man Lymphocytes # (Manual) Monocytes # (Manual) PT INR POC ABG pH POC ABG pCO2 POC ABG pO2 Sodium Potassium Chloride Carbon Dioxide BUN 19 H Creatinine 0.6 L Glucose 159 H POC Glucose 156 H Calcium Phosphorus Magnesium AST ALT Alkaline Phosphatase Lactate Dehydrogenase C-Reactive Protein Total Protein Albumin Urine WBC (Auto) Miscellaneous Test 04/22/18 04/22/18 04/22/18 12:34 16:20 21:42 WBC RBC Hgb Hct MCV MCHC RDW Plt Count Lymph % (Auto) [place] % (Auto) Lymph # [place] # Baso # Seg Neutrophils % Seg Neuts % (Manual) Lymphocytes % (Manual) Monocytes % (Manual) Nucleated RBC % Seg Neutrophils # Seg Neutrophils # Man Lymphocytes # (Manual) Monocytes # (Manual) PT INR POC ABG pH POC ABG pCO2 POC ABG pO2 Sodium Potassium Chloride Carbon Dioxide BUN Creatinine Glucose POC Glucose 150 H 148 H 134 H Calcium Phosphorus Magnesium AST ALT Alkaline Phosphatase Lactate Dehydrogenase C-Reactive Protein Total Protein Albumin Urine WBC (Auto) Miscellaneous Test 04/23/18 04/23/18 04/23/18 05:45 05:45 08:45 WBC 12.5 H RBC 3.41 L Hgb 9.6 L Hct 29.6 L MCV MCHC RDW Plt Count 441 H Lymph % (Auto) [place] % (Auto) 11.3 H Lymph # [place] # 1.4 H Baso # Seg Neutrophils % 70.2 H Seg Neuts % (Manual) Lymphocytes % (Manual) Monocytes % (Manual) Nucleated RBC % Seg Neutrophils # 9.0 H Seg Neutrophils # Man Lymphocytes # (Manual) Monocytes # (Manual) PT INR POC ABG pH POC ABG pCO2 POC ABG pO2 Sodium Potassium Chloride Carbon Dioxide BUN 19 H Creatinine 0.6 L Glucose 119 H POC Glucose 154 H Calcium Phosphorus Magnesium 2.40 H AST ALT Alkaline Phosphatase Lactate Dehydrogenase C-Reactive Protein Total Protein Albumin Urine WBC (Auto) Miscellaneous Test 04/23/18 04/23/18 04/24/18 11:45 22:09 07:26 WBC RBC Hgb Hct MCV MCHC RDW Plt Count Lymph % (Auto) [place] % (Auto) Lymph # [place] # Baso # Seg Neutrophils % Seg Neuts % (Manual) Lymphocytes % (Manual) Monocytes % (Manual) Nucleated RBC % Seg Neutrophils # Seg Neutrophils # Man Lymphocytes # (Manual) Monocytes # (Manual) PT INR POC ABG pH POC ABG pCO2 POC ABG pO2 Sodium Potassium Chloride Carbon Dioxide BUN Creatinine Glucose POC Glucose 132 H 113 H 164 H Calcium Phosphorus Magnesium AST ALT Alkaline Phosphatase Lactate Dehydrogenase C-Reactive Protein Total Protein Albumin Urine WBC (Auto) Miscellaneous Test 04/24/18 04/24/18 04/24/18 08:30 08:30 11:27 WBC 14.4 H RBC 3.30 L Hgb 9.6 L Hct 28.4 L MCV MCHC RDW Plt Count Lymph % (Auto) 12.8 L [place] % (Auto) 9.1 H Lymph # [place] # 1.3 H Baso # 0.2 H Seg Neutrophils % 76.4 H Seg Neuts % (Manual) Lymphocytes % (Manual) Monocytes % (Manual) Nucleated RBC % Seg Neutrophils # 11.0 H Seg Neutrophils # Man Lymphocytes # (Manual) Monocytes # (Manual) PT INR POC ABG pH POC ABG pCO2 POC ABG pO2 Sodium Potassium Chloride Carbon Dioxide BUN 18 H Creatinine Glucose 155 H POC Glucose 133 H Calcium Phosphorus Magnesium AST ALT Alkaline Phosphatase Lactate Dehydrogenase C-Reactive Protein Total Protein Albumin Urine WBC (Auto) Miscellaneous Test 04/24/18 04/24/18 04/25/18 16:32 22:17 06:16 WBC RBC Hgb Hct MCV MCHC RDW Plt Count Lymph % (Auto) [place] % (Auto) Lymph # [place] # Baso # Seg Neutrophils % Seg Neuts % (Manual) Lymphocytes % (Manual) Monocytes % (Manual) Nucleated RBC % Seg Neutrophils # Seg Neutrophils # Man Lymphocytes # (Manual) Monocytes # (Manual) PT INR POC ABG pH POC ABG pCO2 POC ABG pO2 Sodium Potassium Chloride Carbon Dioxide BUN Creatinine Glucose POC Glucose 132 H 124 H 133 H Calcium Phosphorus Magnesium AST ALT Alkaline Phosphatase Lactate Dehydrogenase C-Reactive Protein Total Protein Albumin Urine WBC (Auto) Miscellaneous Test 04/25/18 04/25/18 04/25/18 07:39 11:10 11:31 WBC 11.3 H RBC 3.41 L Hgb 9.8 L Hct 29.5 L MCV MCHC RDW Plt Count Lymph % (Auto) 12.3 L [place] % (Auto) 9.0 H Lymph # [place] # 1.0 H Baso # Seg Neutrophils % 77.3 H Seg Neuts % (Manual) Lymphocytes % (Manual) Monocytes % (Manual) Nucleated RBC % Seg Neutrophils # 8.7 H Seg Neutrophils # Man Lymphocytes # (Manual) Monocytes # (Manual) PT INR POC ABG pH POC ABG pCO2 POC ABG pO2 Sodium Potassium Chloride Carbon Dioxide BUN Creatinine Glucose POC Glucose 141 H 145 H Calcium Phosphorus Magnesium AST ALT Alkaline Phosphatase Lactate Dehydrogenase C-Reactive Protein Total Protein Albumin Urine WBC (Auto) Miscellaneous Test 04/25/18 04/25/18 04/26/18 11:31 16:14 00:45 WBC RBC Hgb Hct MCV MCHC RDW Plt Count Lymph % (Auto) [place] % (Auto) Lymph # [place] # Baso # Seg Neutrophils % Seg Neuts % (Manual) Lymphocytes % (Manual) Monocytes % (Manual) Nucleated RBC % Seg Neutrophils # Seg Neutrophils # Man Lymphocytes # (Manual) Monocytes # (Manual) PT INR POC ABG pH POC ABG pCO2 POC ABG pO2 Sodium Potassium Chloride Carbon Dioxide BUN Creatinine Glucose 153 H POC Glucose 163 H 141 H Calcium Phosphorus Magnesium AST ALT Alkaline Phosphatase Lactate Dehydrogenase C-Reactive Protein Total Protein Albumin Urine WBC (Auto) Miscellaneous Test 04/26/18 04/26/18 04/26/18 06:10 06:10 06:37 WBC 14.5 H RBC 3.60 L Hgb Hct MCV MCHC RDW Plt Count Lymph % (Auto) [place] % (Auto) 9.6 H Lymph # [place] # 1.4 H Baso # 0.2 H Seg Neutrophils % 75.0 H Seg Neuts % (Manual) Lymphocytes % (Manual) Monocytes % (Manual) Nucleated RBC % Seg Neutrophils # 10.9 H Seg Neutrophils # Man Lymphocytes # (Manual) Monocytes # (Manual) PT INR POC ABG pH POC ABG pCO2 POC ABG pO2 Sodium Potassium Chloride Carbon Dioxide BUN Creatinine Glucose 138 H POC Glucose 131 H Calcium Phosphorus Magnesium AST ALT Alkaline Phosphatase Lactate Dehydrogenase C-Reactive Protein Total Protein Albumin Urine WBC (Auto) Miscellaneous Test 04/26/18 04/26/18 04/26/18 11:34 16:10 16:39 WBC RBC Hgb Hct MCV MCHC RDW Plt Count Lymph % (Auto) [place] % (Auto) Lymph # [place] # Baso # Seg Neutrophils % Seg Neuts % (Manual) Lymphocytes % (Manual) Monocytes % (Manual) Nucleated RBC % Seg Neutrophils # Seg Neutrophils # Man Lymphocytes # (Manual) Monocytes # (Manual) PT 17.2 H INR 1.33 H POC ABG pH POC ABG pCO2 POC ABG pO2 Sodium Potassium Chloride Carbon Dioxide BUN Creatinine Glucose POC Glucose 129 H Calcium Phosphorus Magnesium AST ALT Alkaline Phosphatase Lactate Dehydrogenase 266 H C-Reactive Protein Total Protein Albumin Urine WBC (Auto) Miscellaneous Test 04/26/18 04/26/18 04/27/18 16:59 22:39 05:50 WBC RBC Hgb Hct MCV MCHC RDW Plt Count Lymph % (Auto) [place] % (Auto) Lymph # [place] # Baso # Seg Neutrophils % Seg Neuts % (Manual) Lymphocytes % (Manual) Monocytes % (Manual) Nucleated RBC % Seg Neutrophils # Seg Neutrophils # Man Lymphocytes # (Manual) Monocytes # (Manual) PT INR POC ABG pH POC ABG pCO2 POC ABG pO2 Sodium Potassium Chloride 97.4 L Carbon Dioxide BUN Creatinine 0.6 L Glucose 135 H POC Glucose 145 H 187 H Calcium 8.2 L Phosphorus Magnesium AST 97 H ALT 222 H Alkaline Phosphatase 191 H Lactate Dehydrogenase C-Reactive Protein Total Protein Albumin 2.5 L Urine WBC (Auto) Miscellaneous Test 04/27/18 04/27/18 04/27/18 11:52 16:35 22:23 WBC RBC Hgb Hct MCV MCHC RDW Plt Count Lymph % (Auto) [place] % (Auto) Lymph # [place] # Baso # Seg Neutrophils % Seg Neuts % (Manual) Lymphocytes % (Manual) Monocytes % (Manual) Nucleated RBC % Seg Neutrophils # Seg Neutrophils # Man Lymphocytes # (Manual) Monocytes # (Manual) PT INR POC ABG pH POC ABG pCO2 POC ABG pO2 Sodium Potassium Chloride Carbon Dioxide BUN Creatinine Glucose POC Glucose 162 H 136 H 188 H Calcium Phosphorus Magnesium AST ALT Alkaline Phosphatase Lactate Dehydrogenase C-Reactive Protein Total Protein Albumin Urine WBC (Auto) Miscellaneous Test 04/28/18 04/28/18 04/28/18 07:06 09:15 12:11 WBC RBC Hgb Hct MCV MCHC RDW Plt Count Lymph % (Auto) [place] % (Auto) Lymph # [place] # Baso # Seg Neutrophils % Seg Neuts % (Manual) Lymphocytes % (Manual) Monocytes % (Manual) Nucleated RBC % Seg Neutrophils # Seg Neutrophils # Man Lymphocytes # (Manual) Monocytes # (Manual) PT INR POC ABG pH POC ABG pCO2 POC ABG pO2 Sodium Potassium Chloride Carbon Dioxide BUN Creatinine 0.5 L Glucose 149 H POC Glucose 160 H 107 H Calcium 8.0 L Phosphorus Magnesium AST ALT Alkaline Phosphatase Lactate Dehydrogenase C-Reactive Protein Total Protein Albumin Urine WBC (Auto) Miscellaneous Test 04/28/18 04/29/18 04/29/18 21:57 05:25 05:59 WBC RBC Hgb Hct MCV MCHC RDW Plt Count Lymph % (Auto) [place] % (Auto) Lymph # [place] # Baso # Seg Neutrophils % Seg Neuts % (Manual) Lymphocytes % (Manual) Monocytes % (Manual) Nucleated RBC % Seg Neutrophils # Seg Neutrophils # Man Lymphocytes # (Manual) Monocytes # (Manual) PT INR POC ABG pH POC ABG pCO2 POC ABG pO2 Sodium Potassium Chloride Carbon Dioxide BUN Creatinine 0.5 L Glucose 122 H POC Glucose 134 H 130 H Calcium 8.3 L Phosphorus Magnesium AST ALT Alkaline Phosphatase Lactate Dehydrogenase C-Reactive Protein Total Protein Albumin Urine WBC (Auto) Miscellaneous Test 04/29/18 04/29/18 04/29/18 12:14 17:45 22:47 WBC RBC Hgb Hct MCV MCHC RDW Plt Count Lymph % (Auto) [place] % (Auto) Lymph # [place] # Baso # Seg Neutrophils % Seg Neuts % (Manual) Lymphocytes % (Manual) Monocytes % (Manual) Nucleated RBC % Seg Neutrophils # Seg Neutrophils # Man Lymphocytes # (Manual) Monocytes # (Manual) PT INR POC ABG pH POC ABG pCO2 POC ABG pO2 Sodium Potassium Chloride Carbon Dioxide BUN Creatinine Glucose POC Glucose 171 H 142 H 317 H Calcium Phosphorus Magnesium AST ALT Alkaline Phosphatase Lactate Dehydrogenase C-Reactive Protein Total Protein Albumin Urine WBC (Auto) Miscellaneous Test 04/30/18 04/30/18 04/30/18 06:18 08:26 11:20 WBC RBC 3.16 L Hgb 9.1 L Hct 27.0 L MCV MCHC RDW Plt Count Lymph % (Auto) [place] % (Auto) 11.8 H Lymph # [place] # Baso # Seg Neutrophils % Seg Neuts % (Manual) Lymphocytes % (Manual) Monocytes % (Manual) Nucleated RBC % Seg Neutrophils # Seg Neutrophils # Man Lymphocytes # (Manual) Monocytes # (Manual) PT INR POC ABG pH POC ABG pCO2 POC ABG pO2 Sodium 135 L Potassium Chloride Carbon Dioxide 21 L BUN Creatinine 0.5 L Glucose 155 H POC Glucose 166 H Calcium Phosphorus Magnesium AST ALT Alkaline Phosphatase Lactate Dehydrogenase C-Reactive Protein Total Protein Albumin Urine WBC (Auto) Miscellaneous Test 04/30/18 12:24 WBC RBC Hgb Hct MCV MCHC RDW Plt Count Lymph % (Auto) [place] % (Auto) Lymph # [place] # Baso # Seg Neutrophils % Seg Neuts % (Manual) Lymphocytes % (Manual) Monocytes % (Manual) Nucleated RBC % Seg Neutrophils # Seg Neutrophils # Man Lymphocytes # (Manual) Monocytes # (Manual) PT INR POC ABG pH POC ABG pCO2 POC ABG pO2 Sodium Potassium Chloride Carbon Dioxide BUN Creatinine Glucose POC Glucose 176 H Calcium Phosphorus Magnesium AST ALT Alkaline Phosphatase Lactate Dehydrogenase C-Reactive Protein Total Protein Albumin Urine WBC (Auto) Miscellaneous Test Allied health notes reviewed: nursing
--- NOTE | 2018-04-30 15:02 | Progress Note ---
Subjective Patient Reports: Positive: feels better, pain is less, flatus, bowel movement Narrative: doing fine , had a BM , NPO, Home in AM ?rounds for Dr coleman will see in AM Objective Vital Signs - 12hr 04/30/18 04/30/18 04/30/18 04:24 08:01 08:18 Temperature 99.3 F Pulse Rate 99 H Pulse Rate [ 78 82 Anterior Bilateral] Respiratory 20 Rate Respiratory 18 18 Rate [Anterior Bilateral] Blood Pressure 135/68 Blood Pressure [Left] O2 Sat by Pulse 96 Oximetry 04/30/18 04/30/18 04/30/18 10:05 10:36 11:35 Temperature 98.3 F Pulse Rate 99 H 90 Pulse Rate [ Anterior Bilateral] Respiratory 20 20 Rate Respiratory Rate [Anterior Bilateral] Blood Pressure 135/68 Blood Pressure 144/76 [Left] O2 Sat by Pulse 100 Oximetry - Labs 04/30/18 11:20 04/30/18 08:26 Diabetes panel 04/30/18 Range/Units 08:26 Sodium 135 L (137-145) mmol/L Potassium 3.9 (3.6-5.0) mmol/L Chloride 102.9 (98-107) mmol/L Carbon Dioxide 21 L (22-30) mmol/L BUN 12 (7-17) mg/dL Creatinine 0.5 L (0.7-1.2) mg/dL Glucose 155 H (65-100) mg/dL Calcium 8.6 (8.4-10.2) mg/dL Calcium panel 04/30/18 Range/Units 08:26 Calcium 8.6 (8.4-10.2) mg/dL Phosphorus 3.70 (2.5-4.5) mg/dL Pituitary panel 04/30/18 Range/Units 08:26 Sodium 135 L (137-145) mmol/L Potassium 3.9 (3.6-5.0) mmol/L Chloride 102.9 (98-107) mmol/L Carbon Dioxide 21 L (22-30) mmol/L BUN 12 (7-17) mg/dL Creatinine 0.5 L (0.7-1.2) mg/dL Glucose 155 H (65-100) mg/dL Calcium 8.6 (8.4-10.2) mg/dL Adrenal panel 04/30/18 Range/Units 08:26 Sodium 135 L (137-145) mmol/L Potassium 3.9 (3.6-5.0) mmol/L Chloride 102.9 (98-107) mmol/L Carbon Dioxide 21 L (22-30) mmol/L BUN 12 (7-17) mg/dL Creatinine 0.5 L (0.7-1.2) mg/dL Glucose 155 H (65-100) mg/dL Calcium 8.6 (8.4-10.2) mg/dL
[2018-04-30] MEDS ORDERED: TPN ADULT 1,800 ML IV SCH (20:00)
[2018-04-30] MEDS ORDERED: INTRALIPID 20% 250 ML IV SCH (20:00)
[2018-04-30] MEDS: LOVENOX SUB-Q SCH (22:49)
[2018-05-01] MEDS: ATIVAN IV PRN (00:16)
[2018-05-01] MEDS: ZOFRAN IV PRN ×3 (00:18→19:21)
[2018-05-01] MEDS: ZOSYN/NS 4.5GM/100ML 4.5 GM/100 ML VIAL IV SCH ×3 (02:34→18:00)
[2018-05-01] MEDS: NORMODYNE IV SCH ×5 (02:35→22:04)
[2018-05-01] MEDS: DILAUDID IV PRN ×4 (03:46→19:20)
[2018-05-01 04:38] LABS: BUN/Creatinine Ratio 18; Blood Urea Nitrogen 11 mg/dL (7-17); Calcium 8.6 mg/dL (8.4-10.2); Hemolysis Index 0
[2018-05-01] MEDS: PULMICORT IH SCH ×2 (08:24→20:30)
[2018-05-01] MEDS: BROVANA NEBU IH SCH ×2 (08:25→20:29)
[2018-05-01] MEDS: PROTONIX IV SCH ×2 (09:25→22:01)
[2018-05-01] MEDS: SODIUM CHLORIDE FLUSH SYRINGE 10 ML IV SCH ×2 (09:26→22:04)
[2018-05-01] MEDS: ZYVOX 600MG/300ML 600 MG/300 ML BAG IV SCH ×2 (10:30→22:03)
--- NOTE | 2018-05-01 11:10 | Progress Note ---
Assessment and Plan Patient sleeping at this time . O2 saturation 98% on room air.No acute respiratory distress.Patient Goes on CPAP during night time. - Patient Problems (1) Pneumoperitoneum Current Visit: Yes Status: Acute Plan to address problem: Appears improved. Last chest xray not reported pneumomediastinum. (2) Asthma Current Visit: Yes Status: Chronic Qualifiers: Asthma severity: unspecified severity Plan to address problem: Brovanna/Budesonide aerosol treatments q 12 hours. Albuterol inhaler 2 puffs po qid PRN for shortness of breath. Continue S/C Lovenox. Continue Protonix. (3) Sepsis Current Visit: Yes Status: Acute Qualifiers: Sepsis type: sepsis due to unspecified organism Qualified Code(s): A41.9 - Sepsis, unspecified organism Plan to address problem: Patient is on Zyvox and zosyn. (4) Pleural effusion on left Current Visit: Yes Status: Acute Plan to address problem: S/P left thoracentesis. Pleural fluid results pending. Subjective Date of service: 05/01/18 Principal diagnosis: Sepsis Syndrome; Acute Hypoxemic Resp Failure; Acute Encephalopathy Interval history: Patient sleeping at this time. . O2 saturation 96% on room air.No acute respiratory distress.Patient Goes on CPAP during night time. Objective Vital Signs - 12hr 04/30/18 05/01/18 05/01/18 23:12 02:35 08:15 Temperature Pulse Rate 92 H 108 H Pulse Rate [ 98 H Anterior Bilateral] Respiratory Rate Respiratory 20 Rate [Anterior Bilateral] Blood Pressure 165/87 Blood Pressure [Left] O2 Sat by Pulse Oximetry 05/01/18 05/01/18 05/01/18 08:28 08:30 08:31 Temperature 99.2 F Pulse Rate 101 H Pulse Rate [ 100 H Anterior Bilateral] Respiratory 20 Rate Respiratory 18 Rate [Anterior Bilateral] Blood Pressure Blood Pressure 140/75 [Left] O2 Sat by Pulse 96 Oximetry Constitutional: no acute distress, asleep Eyes: non-icteric ENT: oropharynx moist, other (no thyromegaly) Neck: supple, no lymphadenopathy, no JVD, other (large neck circumference) Effort: mildly labored Ascultation: Bilateral: diminished breath sounds, rhonchi (scant in bases) Percussion: Bilateral: not dull Cardiovascular: regular rate and rhythm, other (No R/M) Gastrointestinal: hypoactive bowel sounds, soft, tender (mild), non-distended, other (no palpable HSM) Integumentary: normal Extremities: no cyanosis, no edema, pulses normal, no ischemia or petechiae Neurologic: normal mental status, non-focal exam (grossly), pupils equal and round, CN II-XII normal, motor strength normal and Psychiatric: mood appropriate, affect normal CBC and BMP: 04/30/18 11:20 05/01/18 04:00 ABG, PT/INR, D-dimer: ABG POC ABG pH 7.519 (7.35-7.45) H 04/10/18 12:59 POC ABG pCO2 29.3 (35-45) L 04/10/18 12:59 POC ABG pO2 63 (80-105) L 04/10/18 12:59 POC ABG HCO3 23.9 04/10/18 12:59 POC ABG Total CO2 25 04/10/18 12:59 POC ABG O2 Sat 94 04/10/18 12:59 PT/INR, D-dimer PT 17.2 Sec. (12.2-14.9) H 04/26/18 16:39 INR 1.33 (0.87-1.13) H 04/26/18 16:39 Abnormal lab findings: Abnormal Labs 04/07/18 04/07/18 04/07/18 00:05 00:05 09:41 WBC 18.4 H 21.3 H RBC Hgb Hct MCV MCHC RDW Plt Count Lymph % (Auto) 4.5 L [place] % (Auto) Lymph # 0.8 L [place] # 1.2 H Baso # Seg Neutrophils % 88.9 H Seg Neuts % (Manual) 85.0 H Lymphocytes % (Manual) 4.0 L Monocytes % (Manual) Nucleated RBC % Seg Neutrophils # 16.4 H Seg Neutrophils # Man 18.1 H Lymphocytes # (Manual) 0.9 L Monocytes # (Manual) 1.1 H PT INR POC ABG pH POC ABG pCO2 POC ABG pO2 Sodium Potassium Chloride Carbon Dioxide BUN Creatinine Glucose 123 H POC Glucose Calcium 8.0 L Phosphorus Magnesium 1.60 L AST 59 H ALT Alkaline Phosphatase Lactate Dehydrogenase C-Reactive Protein Total Protein Albumin 2.9 L Urine WBC (Auto) Miscellaneous Test 04/07/18 04/08/18 04/08/18 09:41 00:20 10:25 WBC 19.2 H RBC Hgb Hct MCV MCHC RDW Plt Count Lymph % (Auto) 5.4 L [place] % (Auto) Lymph # 1.0 L [place] # 1.1 H Baso # Seg Neutrophils % 88.9 H Seg Neuts % (Manual) Lymphocytes % (Manual) Monocytes % (Manual) Nucleated RBC % Seg Neutrophils # 17.1 H Seg Neutrophils # Man Lymphocytes # (Manual) Monocytes # (Manual) PT INR POC ABG pH POC ABG pCO2 POC ABG pO2 Sodium Potassium 3.3 L Chloride 95.1 L Carbon Dioxide 21 L BUN Creatinine Glucose 113 H POC Glucose Calcium Phosphorus Magnesium AST ALT Alkaline Phosphatase Lactate Dehydrogenase C-Reactive Protein Total Protein Albumin 3.6 L Urine WBC (Auto) 45.0 H Miscellaneous Test 04/08/18 04/08/18 04/08/18 10:25 13:33 23:53 WBC 12.8 H RBC Hgb Hct MCV MCHC RDW Plt Count Lymph % (Auto) [place] % (Auto) Lymph # [place] # Baso # Seg Neutrophils % Seg Neuts % (Manual) 97.0 H Lymphocytes % (Manual) 2.0 L Monocytes % (Manual) Nucleated RBC % Seg Neutrophils # Seg Neutrophils # Man 12.4 H Lymphocytes # (Manual) 0.3 L Monocytes # (Manual) PT INR POC ABG pH POC ABG pCO2 POC ABG pO2 Sodium Potassium 3.5 L Chloride Carbon Dioxide BUN Creatinine Glucose 123 H POC Glucose Calcium 7.9 L Phosphorus Magnesium AST 53 H ALT Alkaline Phosphatase Lactate Dehydrogenase C-Reactive Protein 52.00 H Total Protein 6.1 L Albumin 2.7 L Urine WBC (Auto) Miscellaneous Test 04/09/18 04/09/18 04/09/18 04:20 04:20 13:38 WBC 16.2 H RBC Hgb Hct MCV MCHC RDW Plt Count Lymph % (Auto) [place] % (Auto) Lymph # [place] # Baso # Seg Neutrophils % Seg Neuts % (Manual) 89.0 H Lymphocytes % (Manual) 4.0 L Monocytes % (Manual) Nucleated RBC % Seg Neutrophils # Seg Neutrophils # Man 14.4 H Lymphocytes # (Manual) 0.6 L Monocytes # (Manual) PT INR POC ABG pH 7.494 H POC ABG pCO2 31.6 L POC ABG pO2 68 L Sodium Potassium 3.5 L Chloride Carbon Dioxide BUN Creatinine 0.6 L Glucose 117 H POC Glucose Calcium 7.9 L Phosphorus 1.50 L D Magnesium AST ALT Alkaline Phosphatase Lactate Dehydrogenase C-Reactive Protein Total Protein 5.6 L Albumin 2.9 L Urine WBC (Auto) Miscellaneous Test 04/09/18 04/09/18 04/09/18 18:25 21:45 21:45 WBC 21.3 H RBC 3.62 L Hgb Hct MCV MCHC 35 H RDW Plt Count Lymph % (Auto) [place] % (Auto) Lymph # [place] # Baso # Seg Neutrophils % Seg Neuts % (Manual) 90.0 H Lymphocytes % (Manual) 6.0 L Monocytes % (Manual) Nucleated RBC % 1.0 H Seg Neutrophils # Seg Neutrophils # Man 19.2 H Lymphocytes # (Manual) Monocytes # (Manual) 0.9 H PT INR POC ABG pH POC ABG pCO2 POC ABG pO2 Sodium Potassium Chloride Carbon Dioxide BUN 5 L Creatinine 0.5 L Glucose 134 H POC Glucose 155 H Calcium 7.9 L Phosphorus 2.20 L D Magnesium AST ALT Alkaline Phosphatase Lactate Dehydrogenase C-Reactive Protein Total Protein Albumin Urine WBC (Auto) Miscellaneous Test 04/09/18 04/10/18 04/10/18 23:38 04:07 04:07 WBC 20.2 H RBC 3.38 L Hgb 9.4 L Hct 28.9 L MCV MCHC RDW Plt Count Lymph % (Auto) [place] % (Auto) Lymph # [place] # Baso # Seg Neutrophils % Seg Neuts % (Manual) Lymphocytes % (Manual) 6.0 L Monocytes % (Manual) Nucleated RBC % Seg Neutrophils # Seg Neutrophils # Man 10.7 H Lymphocytes # (Manual) Monocytes # (Manual) PT INR POC ABG pH POC ABG pCO2 POC ABG pO2 Sodium Potassium Chloride Carbon Dioxide BUN 6 L Creatinine 0.6 L Glucose 176 H POC Glucose 160 H Calcium 7.7 L Phosphorus Magnesium AST ALT Alkaline Phosphatase Lactate Dehydrogenase C-Reactive Protein Total Protein Albumin Urine WBC (Auto) Miscellaneous Test 04/10/18 04/10/18 04/10/18 05:29 11:55 12:59 WBC RBC Hgb Hct MCV MCHC RDW Plt Count Lymph % (Auto) [place] % (Auto) Lymph # [place] # Baso # Seg Neutrophils % Seg Neuts % (Manual) Lymphocytes % (Manual) Monocytes % (Manual) Nucleated RBC % Seg Neutrophils # Seg Neutrophils # Man Lymphocytes # (Manual) Monocytes # (Manual) PT INR POC ABG pH 7.519 H POC ABG pCO2 29.3 L POC ABG pO2 63 L Sodium Potassium Chloride Carbon Dioxide BUN Creatinine Glucose POC Glucose 171 H 194 H Calcium Phosphorus Magnesium AST ALT Alkaline Phosphatase Lactate Dehydrogenase C-Reactive Protein Total Protein Albumin Urine WBC (Auto) Miscellaneous Test 04/10/18 04/10/18 04/10/18 18:11 18:28 18:28 WBC 22.7 H RBC 3.62 L Hgb Hct MCV MCHC RDW Plt Count Lymph % (Auto) [place] % (Auto) Lymph # [place] # Baso # Seg Neutrophils % Seg Neuts % (Manual) 84.0 H Lymphocytes % (Manual) 7.0 L Monocytes % (Manual) 8.0 H Nucleated RBC % Seg Neutrophils # Seg Neutrophils # Man 19.1 H Lymphocytes # (Manual) Monocytes # (Manual) 1.8 H PT INR POC ABG pH POC ABG pCO2 POC ABG pO2 Sodium Potassium Chloride Carbon Dioxide BUN Creatinine Glucose POC Glucose 118 H Calcium Phosphorus Magnesium AST ALT Alkaline Phosphatase Lactate Dehydrogenase C-Reactive Protein 45.20 H Total Protein Albumin Urine WBC (Auto) Miscellaneous Test 04/10/18 04/10/18 04/11/18 18:28 23:45 03:35 WBC 20.9 H RBC 3.54 L Hgb 10.0 L Hct MCV MCHC RDW Plt Count Lymph % (Auto) [place] % (Auto) Lymph # [place] # Baso # Seg Neutrophils % Seg Neuts % (Manual) 80.0 H Lymphocytes % (Manual) 6.0 L Monocytes % (Manual) Nucleated RBC % Seg Neutrophils # Seg Neutrophils # Man 16.7 H Lymphocytes # (Manual) Monocytes # (Manual) PT INR POC ABG pH POC ABG pCO2 POC ABG pO2 Sodium Potassium 3.5 L Chloride Carbon Dioxide BUN 5 L Creatinine 0.5 L Glucose 108 H POC Glucose 149 H Calcium 8.3 L Phosphorus Magnesium AST ALT Alkaline Phosphatase Lactate Dehydrogenase C-Reactive Protein Total Protein Albumin Urine WBC (Auto) Miscellaneous Test 04/11/18 04/11/18 04/11/18 03:35 06:17 11:29 WBC RBC Hgb Hct MCV MCHC RDW Plt Count Lymph % (Auto) [place] % (Auto) Lymph # [place] # Baso # Seg Neutrophils % Seg Neuts % (Manual) Lymphocytes % (Manual) Monocytes % (Manual) Nucleated RBC % Seg Neutrophils # Seg Neutrophils # Man Lymphocytes # (Manual) Monocytes # (Manual) PT INR POC ABG pH POC ABG pCO2 POC ABG pO2 Sodium Potassium Chloride Carbon Dioxide BUN Creatinine 0.5 L Glucose 143 H POC Glucose 155 H 158 H Calcium 8.2 L Phosphorus Magnesium AST ALT Alkaline Phosphatase Lactate Dehydrogenase C-Reactive Protein Total Protein 6.0 L Albumin 2.2 L Urine WBC (Auto) Miscellaneous Test 04/11/18 04/11/18 04/12/18 18:13 23:51 05:29 WBC RBC Hgb Hct MCV MCHC RDW Plt Count Lymph % (Auto) [place] % (Auto) Lymph # [place] # Baso # Seg Neutrophils % Seg Neuts % (Manual) Lymphocytes % (Manual) Monocytes % (Manual) Nucleated RBC % Seg Neutrophils # Seg Neutrophils # Man Lymphocytes # (Manual) Monocytes # (Manual) PT INR POC ABG pH POC ABG pCO2 POC ABG pO2 Sodium Potassium Chloride Carbon Dioxide BUN Creatinine Glucose POC Glucose 135 H 143 H 150 H Calcium Phosphorus Magnesium AST ALT Alkaline Phosphatase Lactate Dehydrogenase C-Reactive Protein Total Protein Albumin Urine WBC (Auto) Miscellaneous Test 04/12/18 04/12/18 04/13/18 05:40 05:40 00:32 WBC 18.0 H RBC 3.34 L Hgb 9.5 L Hct 28.9 L MCV MCHC RDW Plt Count Lymph % (Auto) 7.4 L [place] % (Auto) 10.8 H Lymph # [place] # 1.9 H Baso # Seg Neutrophils % 81.1 H Seg Neuts % (Manual) Lymphocytes % (Manual) Monocytes % (Manual) Nucleated RBC % Seg Neutrophils # 14.6 H Seg Neutrophils # Man Lymphocytes # (Manual) Monocytes # (Manual) PT INR POC ABG pH POC ABG pCO2 POC ABG pO2 Sodium Potassium Chloride 107.7 H Carbon Dioxide 21 L BUN Creatinine 0.6 L Glucose 140 H POC Glucose 144 H Calcium Phosphorus Magnesium AST ALT Alkaline Phosphatase Lactate Dehydrogenase C-Reactive Protein Total Protein Albumin Urine WBC (Auto) Miscellaneous Test 04/13/18 04/13/18 04/13/18 04:20 04:20 04:20 WBC 18.1 H RBC 3.52 L Hgb 9.8 L Hct 30.1 L MCV MCHC RDW Plt Count Lymph % (Auto) 11.1 L [place] % (Auto) 13.6 H Lymph # [place] # 2.5 H Baso # Seg Neutrophils % 74.4 H Seg Neuts % (Manual) Lymphocytes % (Manual) Monocytes % (Manual) Nucleated RBC % Seg Neutrophils # 13.4 H Seg Neutrophils # Man Lymphocytes # (Manual) Monocytes # (Manual) PT INR POC ABG pH POC ABG pCO2 POC ABG pO2 Sodium Potassium Chloride Carbon Dioxide BUN Creatinine 0.5 L Glucose 142 H POC Glucose Calcium Phosphorus Magnesium AST ALT Alkaline Phosphatase Lactate Dehydrogenase C-Reactive Protein 29.60 H Total Protein Albumin Urine WBC (Auto) Miscellaneous Test 04/13/18 04/13/18 04/13/18 05:35 13:37 23:50 WBC RBC Hgb Hct MCV MCHC RDW Plt Count Lymph % (Auto) [place] % (Auto) Lymph # [place] # Baso # Seg Neutrophils % Seg Neuts % (Manual) Lymphocytes % (Manual) Monocytes % (Manual) Nucleated RBC % Seg Neutrophils # Seg Neutrophils # Man Lymphocytes # (Manual) Monocytes # (Manual) PT INR POC ABG pH POC ABG pCO2 POC ABG pO2 Sodium Potassium Chloride Carbon Dioxide BUN Creatinine Glucose POC Glucose 142 H 160 H Calcium Phosphorus Magnesium AST ALT Alkaline Phosphatase Lactate Dehydrogenase C-Reactive Protein Total Protein Albumin Urine WBC (Auto) Miscellaneous Test Flexitest 1 H 04/14/18 04/14/18 04/14/18 04:00 04:00 05:29 WBC 22.1 H RBC 3.59 L Hgb 9.9 L Hct MCV MCHC RDW Plt Count Lymph % (Auto) [place] % (Auto) Lymph # [place] # Baso # Seg Neutrophils % Seg Neuts % (Manual) 73.0 H Lymphocytes % (Manual) 9.0 L Monocytes % (Manual) 11.0 H Nucleated RBC % Seg Neutrophils # Seg Neutrophils # Man 16.1 H Lymphocytes # (Manual) Monocytes # (Manual) 2.4 H PT INR POC ABG pH POC ABG pCO2 POC ABG pO2 Sodium Potassium Chloride Carbon Dioxide BUN Creatinine Glucose 155 H POC Glucose 133 H Calcium Phosphorus Magnesium 2.50 H AST ALT Alkaline Phosphatase Lactate Dehydrogenase C-Reactive Protein Total Protein Albumin Urine WBC (Auto) Miscellaneous Test 04/14/18 04/14/18 04/14/18 12:47 16:01 23:42 WBC RBC Hgb Hct MCV MCHC RDW Plt Count Lymph % (Auto) [place] % (Auto) Lymph # [place] # Baso # Seg Neutrophils % Seg Neuts % (Manual) Lymphocytes % (Manual) Monocytes % (Manual) Nucleated RBC % Seg Neutrophils # Seg Neutrophils # Man Lymphocytes # (Manual) Monocytes # (Manual) PT INR POC ABG pH POC ABG pCO2 POC ABG pO2 Sodium Potassium Chloride Carbon Dioxide BUN Creatinine Glucose POC Glucose 183 H 153 H 172 H Calcium Phosphorus Magnesium AST ALT Alkaline Phosphatase Lactate Dehydrogenase C-Reactive Protein Total Protein Albumin Urine WBC (Auto) Miscellaneous Test 04/15/18 04/15/18 04/15/18 04:42 04:42 05:49 WBC 21.5 H RBC 3.37 L Hgb 9.4 L Hct 28.9 L MCV MCHC RDW Plt Count 490 H Lymph % (Auto) [place] % (Auto) Lymph # [place] # Baso # Seg Neutrophils % Seg Neuts % (Manual) 77.0 H Lymphocytes % (Manual) 7.0 L Monocytes % (Manual) 10.0 H Nucleated RBC % Seg Neutrophils # Seg Neutrophils # Man 16.6 H Lymphocytes # (Manual) Monocytes # (Manual) 2.2 H PT INR POC ABG pH POC ABG pCO2 POC ABG pO2 Sodium Potassium 3.4 L Chloride 107.5 H Carbon Dioxide 21 L BUN Creatinine Glucose 165 H POC Glucose 147 H Calcium 8.0 L Phosphorus Magnesium 2.40 H AST ALT Alkaline Phosphatase Lactate Dehydrogenase C-Reactive Protein Total Protein Albumin Urine WBC (Auto) Miscellaneous Test 04/15/18 04/15/18 04/16/18 11:17 17:35 00:26 WBC RBC Hgb Hct MCV MCHC RDW Plt Count Lymph % (Auto) [place] % (Auto) Lymph # [place] # Baso # Seg Neutrophils % Seg Neuts % (Manual) Lymphocytes % (Manual) Monocytes % (Manual) Nucleated RBC % Seg Neutrophils # Seg Neutrophils # Man Lymphocytes # (Manual) Monocytes # (Manual) PT INR POC ABG pH POC ABG pCO2 POC ABG pO2 Sodium Potassium Chloride Carbon Dioxide BUN Creatinine Glucose POC Glucose 119 H 169 H 176 H Calcium Phosphorus Magnesium AST ALT Alkaline Phosphatase Lactate Dehydrogenase C-Reactive Protein Total Protein Albumin Urine WBC (Auto) Miscellaneous Test 04/16/18 04/16/18 04/16/18 06:12 06:19 06:21 WBC 20.7 H RBC 3.25 L Hgb 9.0 L Hct MCV MCHC 29 L RDW 16.7 H Plt Count 498 H Lymph % (Auto) [place] % (Auto) Lymph # [place] # Baso # Seg Neutrophils % Seg Neuts % (Manual) 88.0 H Lymphocytes % (Manual) 5.0 L Monocytes % (Manual) Nucleated RBC % Seg Neutrophils # Seg Neutrophils # Man 18.2 H Lymphocytes # (Manual) 1.0 L Monocytes # (Manual) PT INR POC ABG pH POC ABG pCO2 POC ABG pO2 Sodium Potassium Chloride Carbon Dioxide BUN Creatinine Glucose POC Glucose > 500 H 493 H Calcium Phosphorus Magnesium AST ALT Alkaline Phosphatase Lactate Dehydrogenase C-Reactive Protein Total Protein Albumin Urine WBC (Auto) Miscellaneous Test 04/16/18 04/16/18 04/16/18 06:24 08:52 14:05 WBC RBC Hgb Hct MCV MCHC RDW Plt Count Lymph % (Auto) [place] % (Auto) Lymph # [place] # Baso # Seg Neutrophils % Seg Neuts % (Manual) Lymphocytes % (Manual) Monocytes % (Manual) Nucleated RBC % Seg Neutrophils # Seg Neutrophils # Man Lymphocytes # (Manual) Monocytes # (Manual) PT INR POC ABG pH POC ABG pCO2 POC ABG pO2 Sodium Potassium 3.4 L Chloride Carbon Dioxide BUN Creatinine 0.5 L Glucose 166 H POC Glucose 173 H 196 H Calcium 8.2 L Phosphorus Magnesium AST ALT Alkaline Phosphatase Lactate Dehydrogenase C-Reactive Protein Total Protein Albumin Urine WBC (Auto) Miscellaneous Test 04/16/18 04/17/18 04/17/18 17:17 00:06 04:50 WBC 16.0 H RBC 3.12 L Hgb 8.7 L Hct 29.0 L MCV MCHC RDW 16.2 H Plt Count 455 H Lymph % (Auto) 9.4 L [place] % (Auto) 7.7 H Lymph # [place] # 1.2 H Baso # Seg Neutrophils % 81.9 H Seg Neuts % (Manual) Lymphocytes % (Manual) Monocytes % (Manual) Nucleated RBC % Seg Neutrophils # 13.1 H Seg Neutrophils # Man Lymphocytes # (Manual) Monocytes # (Manual) PT INR POC ABG pH POC ABG pCO2 POC ABG pO2 Sodium Potassium Chloride Carbon Dioxide BUN Creatinine Glucose POC Glucose 189 H 190 H Calcium Phosphorus Magnesium AST ALT Alkaline Phosphatase Lactate Dehydrogenase C-Reactive Protein Total Protein Albumin Urine WBC (Auto) Miscellaneous Test 04/17/18 04/17/18 04/17/18 04:50 05:38 07:17 WBC RBC Hgb Hct MCV MCHC RDW Plt Count Lymph % (Auto) [place] % (Auto) Lymph # [place] # Baso # Seg Neutrophils % Seg Neuts % (Manual) Lymphocytes % (Manual) Monocytes % (Manual) Nucleated RBC % Seg Neutrophils # Seg Neutrophils # Man Lymphocytes # (Manual) Monocytes # (Manual) PT INR POC ABG pH POC ABG pCO2 POC ABG pO2 Sodium 136 L Potassium 3.4 L Chloride 96.9 L Carbon Dioxide BUN Creatinine 0.6 L Glucose 167 H POC Glucose 190 H Calcium 7.6 L 8.0 L Phosphorus Magnesium AST ALT Alkaline Phosphatase Lactate Dehydrogenase C-Reactive Protein Total Protein Albumin Urine WBC (Auto) Miscellaneous Test 04/17/18 04/17/18 04/17/18 11:50 18:37 23:53 WBC RBC Hgb Hct MCV MCHC RDW Plt Count Lymph % (Auto) [place] % (Auto) Lymph # [place] # Baso # Seg Neutrophils % Seg Neuts % (Manual) Lymphocytes % (Manual) Monocytes % (Manual) Nucleated RBC % Seg Neutrophils # Seg Neutrophils # Man Lymphocytes # (Manual) Monocytes # (Manual) PT INR POC ABG pH POC ABG pCO2 POC ABG pO2 Sodium Potassium Chloride Carbon Dioxide BUN Creatinine Glucose POC Glucose 163 H 167 H 142 H Calcium Phosphorus Magnesium AST ALT Alkaline Phosphatase Lactate Dehydrogenase C-Reactive Protein Total Protein Albumin Urine WBC (Auto) Miscellaneous Test 04/18/18 04/18/18 04/18/18 05:59 10:05 12:25 WBC RBC Hgb Hct MCV MCHC RDW Plt Count Lymph % (Auto) [place] % (Auto) Lymph # [place] # Baso # Seg Neutrophils % Seg Neuts % (Manual) Lymphocytes % (Manual) Monocytes % (Manual) Nucleated RBC % Seg Neutrophils # Seg Neutrophils # Man Lymphocytes # (Manual) Monocytes # (Manual) PT INR POC ABG pH POC ABG pCO2 POC ABG pO2 Sodium Potassium Chloride Carbon Dioxide BUN Creatinine 0.5 L Glucose 127 H POC Glucose 144 H 171 H Calcium 8.2 L Phosphorus Magnesium AST ALT Alkaline Phosphatase Lactate Dehydrogenase C-Reactive Protein Total Protein Albumin Urine WBC (Auto) Miscellaneous Test 04/18/18 04/18/18 04/19/18 14:54 17:56 00:15 WBC 18.2 H RBC 2.95 L Hgb 8.9 L Hct 29.0 L MCV 98 H MCHC RDW 16.9 H Plt Count Lymph % (Auto) 9.2 L [place] % (Auto) Lymph # [place] # 1.2 H Baso # Seg Neutrophils % 82.7 H Seg Neuts % (Manual) Lymphocytes % (Manual) Monocytes % (Manual) Nucleated RBC % Seg Neutrophils # 15.1 H Seg Neutrophils # Man Lymphocytes # (Manual) Monocytes # (Manual) PT INR POC ABG pH POC ABG pCO2 POC ABG pO2 Sodium Potassium Chloride Carbon Dioxide BUN Creatinine Glucose POC Glucose 169 H 148 H Calcium Phosphorus Magnesium AST ALT Alkaline Phosphatase Lactate Dehydrogenase C-Reactive Protein Total Protein Albumin Urine WBC (Auto) Miscellaneous Test 04/19/18 04/19/18 04/19/18 05:21 08:00 08:00 WBC 18.7 H RBC Hgb Hct MCV MCHC RDW Plt Count 531 H Lymph % (Auto) [place] % (Auto) Lymph # [place] # Baso # Seg Neutrophils % Seg Neuts % (Manual) Lymphocytes % (Manual) Monocytes % (Manual) Nucleated RBC % Seg Neutrophils # Seg Neutrophils # Man Lymphocytes # (Manual) Monocytes # (Manual) PT INR POC ABG pH POC ABG pCO2 POC ABG pO2 Sodium Potassium Chloride Carbon Dioxide BUN 18 H Creatinine 0.5 L Glucose 141 H POC Glucose 146 H Calcium Phosphorus Magnesium AST ALT 76 H Alkaline Phosphatase 142 H Lactate Dehydrogenase C-Reactive Protein Total Protein Albumin 2.4 L Urine WBC (Auto) Miscellaneous Test 04/19/18 04/19/18 04/20/18 12:12 17:41 00:21 WBC RBC Hgb Hct MCV MCHC RDW Plt Count Lymph % (Auto) [place] % (Auto) Lymph # [place] # Baso # Seg Neutrophils % Seg Neuts % (Manual) Lymphocytes % (Manual) Monocytes % (Manual) Nucleated RBC % Seg Neutrophils # Seg Neutrophils # Man Lymphocytes # (Manual) Monocytes # (Manual) PT INR POC ABG pH POC ABG pCO2 POC ABG pO2 Sodium Potassium Chloride Carbon Dioxide BUN Creatinine Glucose POC Glucose 161 H 134 H 159 H Calcium Phosphorus Magnesium AST ALT Alkaline Phosphatase Lactate Dehydrogenase C-Reactive Protein Total Protein Albumin Urine WBC (Auto) Miscellaneous Test 07/24/18 07/24/18 07/24/18 04:00 04:00 07:05 WBC 16.5 H RBC 3.51 L Hgb 9.9 L Hct 30.1 L MCV MCHC RDW Plt Count 530 H Lymph % (Auto) 10.7 L [place] % (Auto) 9.2 H Lymph # [place] # 1.5 H Baso # Seg Neutrophils % 78.5 H Seg Neuts % (Manual) Lymphocytes % (Manual) Monocytes % (Manual) Nucleated RBC % Seg Neutrophils # 13.0 H Seg Neutrophils # Man Lymphocytes # (Manual) Monocytes # (Manual) PT INR POC ABG pH POC ABG pCO2 POC ABG pO2 Sodium Potassium Chloride Carbon Dioxide BUN 19 H Creatinine 0.6 L Glucose 185 H POC Glucose 166 H Calcium Phosphorus Magnesium AST ALT Alkaline Phosphatase Lactate Dehydrogenase C-Reactive Protein Total Protein Albumin Urine WBC (Auto) Miscellaneous Test 04/20/18 04/20/18 04/21/18 12:59 19:06 00:17 WBC RBC Hgb Hct MCV MCHC RDW Plt Count Lymph % (Auto) [place] % (Auto) Lymph # [place] # Baso # Seg Neutrophils % Seg Neuts % (Manual) Lymphocytes % (Manual) Monocytes % (Manual) Nucleated RBC % Seg Neutrophils # Seg Neutrophils # Man Lymphocytes # (Manual) Monocytes # (Manual) PT INR POC ABG pH POC ABG pCO2 POC ABG pO2 Sodium Potassium Chloride Carbon Dioxide BUN Creatinine Glucose POC Glucose 166 H 170 H 178 H Calcium Phosphorus Magnesium AST ALT Alkaline Phosphatase Lactate Dehydrogenase C-Reactive Protein Total Protein Albumin Urine WBC (Auto) Miscellaneous Test 04/21/18 04/21/18 04/21/18 06:15 06:15 06:39 WBC 15.1 H RBC 3.48 L Hgb 9.8 L Hct 30.2 L MCV MCHC RDW Plt Count 499 H Lymph % (Auto) [place] % (Auto) 8.7 H Lymph # [place] # 1.3 H Baso # 0.2 H Seg Neutrophils % 74.7 H Seg Neuts % (Manual) Lymphocytes % (Manual) Monocytes % (Manual) Nucleated RBC % Seg Neutrophils # 11.3 H Seg Neutrophils # Man Lymphocytes # (Manual) Monocytes # (Manual) PT INR POC ABG pH POC ABG pCO2 POC ABG pO2 Sodium Potassium Chloride 108.8 H Carbon Dioxide BUN 18 H Creatinine 0.6 L Glucose 157 H POC Glucose 153 H Calcium 8.0 L Phosphorus Magnesium AST ALT Alkaline Phosphatase Lactate Dehydrogenase C-Reactive Protein Total Protein Albumin Urine WBC (Auto) Miscellaneous Test 04/21/18 04/21/18 04/21/18 11:49 17:07 22:07 WBC RBC Hgb Hct MCV MCHC RDW Plt Count Lymph % (Auto) [place] % (Auto) Lymph # [place] # Baso # Seg Neutrophils % Seg Neuts % (Manual) Lymphocytes % (Manual) Monocytes % (Manual) Nucleated RBC % Seg Neutrophils # Seg Neutrophils # Man Lymphocytes # (Manual) Monocytes # (Manual) PT INR POC ABG pH POC ABG pCO2 POC ABG pO2 Sodium Potassium Chloride Carbon Dioxide BUN Creatinine Glucose POC Glucose 184 H 163 H 169 H Calcium Phosphorus Magnesium AST ALT Alkaline Phosphatase Lactate Dehydrogenase C-Reactive Protein Total Protein Albumin Urine WBC (Auto) Miscellaneous Test 04/22/18 04/22/18 04/22/18 07:00 07:00 08:52 WBC 14.0 H RBC 3.26 L Hgb 9.3 L Hct 28.6 L MCV MCHC RDW Plt Count 460 H Lymph % (Auto) 13.0 L [place] % (Auto) 10.1 H Lymph # [place] # 1.4 H Baso # Seg Neutrophils % 74.4 H Seg Neuts % (Manual) Lymphocytes % (Manual) Monocytes % (Manual) Nucleated RBC % Seg Neutrophils # 10.4 H Seg Neutrophils # Man Lymphocytes # (Manual) Monocytes # (Manual) PT INR POC ABG pH POC ABG pCO2 POC ABG pO2 Sodium Potassium Chloride Carbon Dioxide BUN 19 H Creatinine 0.6 L Glucose 159 H POC Glucose 156 H Calcium Phosphorus Magnesium AST ALT Alkaline Phosphatase Lactate Dehydrogenase C-Reactive Protein Total Protein Albumin Urine WBC (Auto) Miscellaneous Test 04/22/18 04/22/18 04/22/18 12:34 16:20 21:42 WBC RBC Hgb Hct MCV MCHC RDW Plt Count Lymph % (Auto) [place] % (Auto) Lymph # [place] # Baso # Seg Neutrophils % Seg Neuts % (Manual) Lymphocytes % (Manual) Monocytes % (Manual) Nucleated RBC % Seg Neutrophils # Seg Neutrophils # Man Lymphocytes # (Manual) Monocytes # (Manual) PT INR POC ABG pH POC ABG pCO2 POC ABG pO2 Sodium Potassium Chloride Carbon Dioxide BUN Creatinine Glucose POC Glucose 150 H 148 H 134 H Calcium Phosphorus Magnesium AST ALT Alkaline Phosphatase Lactate Dehydrogenase C-Reactive Protein Total Protein Albumin Urine WBC (Auto) Miscellaneous Test 04/23/18 04/23/18 04/23/18 05:45 05:45 08:45 WBC 12.5 H RBC 3.41 L Hgb 9.6 L Hct 29.6 L MCV MCHC RDW Plt Count 441 H Lymph % (Auto) [place] % (Auto) 11.3 H Lymph # [place] # 1.4 H Baso # Seg Neutrophils % 70.2 H Seg Neuts % (Manual) Lymphocytes % (Manual) Monocytes % (Manual) Nucleated RBC % Seg Neutrophils # 9.0 H Seg Neutrophils # Man Lymphocytes # (Manual) Monocytes # (Manual) PT INR POC ABG pH POC ABG pCO2 POC ABG pO2 Sodium Potassium Chloride Carbon Dioxide BUN 19 H Creatinine 0.6 L Glucose 119 H POC Glucose 154 H Calcium Phosphorus Magnesium 2.40 H AST ALT Alkaline Phosphatase Lactate Dehydrogenase C-Reactive Protein Total Protein Albumin Urine WBC (Auto) Miscellaneous Test 04/23/18 04/23/18 04/24/18 11:45 22:09 07:26 WBC RBC Hgb Hct MCV MCHC RDW Plt Count Lymph % (Auto) [place] % (Auto) Lymph # [place] # Baso # Seg Neutrophils % Seg Neuts % (Manual) Lymphocytes % (Manual) Monocytes % (Manual) Nucleated RBC % Seg Neutrophils # Seg Neutrophils # Man Lymphocytes # (Manual) Monocytes # (Manual) PT INR POC ABG pH POC ABG pCO2 POC ABG pO2 Sodium Potassium Chloride Carbon Dioxide BUN Creatinine Glucose POC Glucose 132 H 113 H 164 H Calcium Phosphorus Magnesium AST ALT Alkaline Phosphatase Lactate Dehydrogenase C-Reactive Protein Total Protein Albumin Urine WBC (Auto) Miscellaneous Test 04/24/18 04/24/18 04/24/18 08:30 08:30 11:27 WBC 14.4 H RBC 3.30 L Hgb 9.6 L Hct 28.4 L MCV MCHC RDW Plt Count Lymph % (Auto) 12.8 L [place] % (Auto) 9.1 H Lymph # [place] # 1.3 H Baso # 0.2 H Seg Neutrophils % 76.4 H Seg Neuts % (Manual) Lymphocytes % (Manual) Monocytes % (Manual) Nucleated RBC % Seg Neutrophils # 11.0 H Seg Neutrophils # Man Lymphocytes # (Manual) Monocytes # (Manual) PT INR POC ABG pH POC ABG pCO2 POC ABG pO2 Sodium Potassium Chloride Carbon Dioxide BUN 18 H Creatinine Glucose 155 H POC Glucose 133 H Calcium Phosphorus Magnesium AST ALT Alkaline Phosphatase Lactate Dehydrogenase C-Reactive Protein Total Protein Albumin Urine WBC (Auto) Miscellaneous Test 04/24/18 04/24/18 04/25/18 16:32 22:17 06:16 WBC RBC Hgb Hct MCV MCHC RDW Plt Count Lymph % (Auto) [place] % (Auto) Lymph # [place] # Baso # Seg Neutrophils % Seg Neuts % (Manual) Lymphocytes % (Manual) Monocytes % (Manual) Nucleated RBC % Seg Neutrophils # Seg Neutrophils # Man Lymphocytes # (Manual) Monocytes # (Manual) PT INR POC ABG pH POC ABG pCO2 POC ABG pO2 Sodium Potassium Chloride Carbon Dioxide BUN Creatinine Glucose POC Glucose 132 H 124 H 133 H Calcium Phosphorus Magnesium AST ALT Alkaline Phosphatase Lactate Dehydrogenase C-Reactive Protein Total Protein Albumin Urine WBC (Auto) Miscellaneous Test 04/25/18 04/25/18 04/25/18 07:39 11:10 11:31 WBC 11.3 H RBC 3.41 L Hgb 9.8 L Hct 29.5 L MCV MCHC RDW Plt Count Lymph % (Auto) 12.3 L [place] % (Auto) 9.0 H Lymph # [place] # 1.0 H Baso # Seg Neutrophils % 77.3 H Seg Neuts % (Manual) Lymphocytes % (Manual) Monocytes % (Manual) Nucleated RBC % Seg Neutrophils # 8.7 H Seg Neutrophils # Man Lymphocytes # (Manual) Monocytes # (Manual) PT INR POC ABG pH POC ABG pCO2 POC ABG pO2 Sodium Potassium Chloride Carbon Dioxide BUN Creatinine Glucose POC Glucose 141 H 145 H Calcium Phosphorus Magnesium AST ALT Alkaline Phosphatase Lactate Dehydrogenase C-Reactive Protein Total Protein Albumin Urine WBC (Auto) Miscellaneous Test 04/25/18 04/25/18 04/26/18 11:31 16:14 00:45 WBC RBC Hgb Hct MCV MCHC RDW Plt Count Lymph % (Auto) [place] % (Auto) Lymph # [place] # Baso # Seg Neutrophils % Seg Neuts % (Manual) Lymphocytes % (Manual) Monocytes % (Manual) Nucleated RBC % Seg Neutrophils # Seg Neutrophils # Man Lymphocytes # (Manual) Monocytes # (Manual) PT INR POC ABG pH POC ABG pCO2 POC ABG pO2 Sodium Potassium Chloride Carbon Dioxide BUN Creatinine Glucose 153 H POC Glucose 163 H 141 H Calcium Phosphorus Magnesium AST ALT Alkaline Phosphatase Lactate Dehydrogenase C-Reactive Protein Total Protein Albumin Urine WBC (Auto) Miscellaneous Test 04/26/18 04/26/18 04/26/18 06:10 06:10 06:37 WBC 14.5 H RBC 3.60 L Hgb Hct MCV MCHC RDW Plt Count Lymph % (Auto) [place] % (Auto) 9.6 H Lymph # [place] # 1.4 H Baso # 0.2 H Seg Neutrophils % 75.0 H Seg Neuts % (Manual) Lymphocytes % (Manual) Monocytes % (Manual) Nucleated RBC % Seg Neutrophils # 10.9 H Seg Neutrophils # Man Lymphocytes # (Manual) Monocytes # (Manual) PT INR POC ABG pH POC ABG pCO2 POC ABG pO2 Sodium Potassium Chloride Carbon Dioxide BUN Creatinine Glucose 138 H POC Glucose 131 H Calcium Phosphorus Magnesium AST ALT Alkaline Phosphatase Lactate Dehydrogenase C-Reactive Protein Total Protein Albumin Urine WBC (Auto) Miscellaneous Test 04/26/18 04/26/18 04/26/18 11:34 16:10 16:39 WBC RBC Hgb Hct MCV MCHC RDW Plt Count Lymph % (Auto) [place] % (Auto) Lymph # [place] # Baso # Seg Neutrophils % Seg Neuts % (Manual) Lymphocytes % (Manual) Monocytes % (Manual) Nucleated RBC % Seg Neutrophils # Seg Neutrophils # Man Lymphocytes # (Manual) Monocytes # (Manual) PT 17.2 H INR 1.33 H POC ABG pH POC ABG pCO2 POC ABG pO2 Sodium Potassium Chloride Carbon Dioxide BUN Creatinine Glucose POC Glucose 129 H Calcium Phosphorus Magnesium AST ALT Alkaline Phosphatase Lactate Dehydrogenase 266 H C-Reactive Protein Total Protein Albumin Urine WBC (Auto) Miscellaneous Test 04/26/18 04/26/18 04/27/18 16:59 22:39 05:50 WBC RBC Hgb Hct MCV MCHC RDW Plt Count Lymph % (Auto) [place] % (Auto) Lymph # [place] # Baso # Seg Neutrophils % Seg Neuts % (Manual) Lymphocytes % (Manual) Monocytes % (Manual) Nucleated RBC % Seg Neutrophils # Seg Neutrophils # Man Lymphocytes # (Manual) Monocytes # (Manual) PT INR POC ABG pH POC ABG pCO2 POC ABG pO2 Sodium Potassium Chloride 97.4 L Carbon Dioxide BUN Creatinine 0.6 L Glucose 135 H POC Glucose 145 H 187 H Calcium 8.2 L Phosphorus Magnesium AST 97 H ALT 222 H Alkaline Phosphatase 191 H Lactate Dehydrogenase C-Reactive Protein Total Protein Albumin 2.5 L Urine WBC (Auto) Miscellaneous Test 04/27/18 04/27/18 04/27/18 11:52 16:35 22:23 WBC RBC Hgb Hct MCV MCHC RDW Plt Count Lymph % (Auto) [place] % (Auto) Lymph # [place] # Baso # Seg Neutrophils % Seg Neuts % (Manual) Lymphocytes % (Manual) Monocytes % (Manual) Nucleated RBC % Seg Neutrophils # Seg Neutrophils # Man Lymphocytes # (Manual) Monocytes # (Manual) PT INR POC ABG pH POC ABG pCO2 POC ABG pO2 Sodium Potassium Chloride Carbon Dioxide BUN Creatinine Glucose POC Glucose 162 H 136 H 188 H Calcium Phosphorus Magnesium AST ALT Alkaline Phosphatase Lactate Dehydrogenase C-Reactive Protein Total Protein Albumin Urine WBC (Auto) Miscellaneous Test 04/28/18 04/28/18 04/28/18 07:06 09:15 12:11 WBC RBC Hgb Hct MCV MCHC RDW Plt Count Lymph % (Auto) [place] % (Auto) Lymph # [place] # Baso # Seg Neutrophils % Seg Neuts % (Manual) Lymphocytes % (Manual) Monocytes % (Manual) Nucleated RBC % Seg Neutrophils # Seg Neutrophils # Man Lymphocytes # (Manual) Monocytes # (Manual) PT INR POC ABG pH POC ABG pCO2 POC ABG pO2 Sodium Potassium Chloride Carbon Dioxide BUN Creatinine 0.5 L Glucose 149 H POC Glucose 160 H 107 H Calcium 8.0 L Phosphorus Magnesium AST ALT Alkaline Phosphatase Lactate Dehydrogenase C-Reactive Protein Total Protein Albumin Urine WBC (Auto) Miscellaneous Test 04/28/18 04/29/18 04/29/18 21:57 05:25 05:59 WBC RBC Hgb Hct MCV MCHC RDW Plt Count Lymph % (Auto) [place] % (Auto) Lymph # [place] # Baso # Seg Neutrophils % Seg Neuts % (Manual) Lymphocytes % (Manual) Monocytes % (Manual) Nucleated RBC % Seg Neutrophils # Seg Neutrophils # Man Lymphocytes # (Manual) Monocytes # (Manual) PT INR POC ABG pH POC ABG pCO2 POC ABG pO2 Sodium Potassium Chloride Carbon Dioxide BUN Creatinine 0.5 L Glucose 122 H POC Glucose 134 H 130 H Calcium 8.3 L Phosphorus Magnesium AST ALT Alkaline Phosphatase Lactate Dehydrogenase C-Reactive Protein Total Protein Albumin Urine WBC (Auto) Miscellaneous Test 04/29/18 04/29/18 04/29/18 12:14 17:45 22:47 WBC RBC Hgb Hct MCV MCHC RDW Plt Count Lymph % (Auto) [place] % (Auto) Lymph # [place] # Baso # Seg Neutrophils % Seg Neuts % (Manual) Lymphocytes % (Manual) Monocytes % (Manual) Nucleated RBC % Seg Neutrophils # Seg Neutrophils # Man Lymphocytes # (Manual) Monocytes # (Manual) PT INR POC ABG pH POC ABG pCO2 POC ABG pO2 Sodium Potassium Chloride Carbon Dioxide BUN Creatinine Glucose POC Glucose 171 H 142 H 317 H Calcium Phosphorus Magnesium AST ALT Alkaline Phosphatase Lactate Dehydrogenase C-Reactive Protein Total Protein Albumin Urine WBC (Auto) Miscellaneous Test 04/30/18 04/30/18 04/30/18 06:18 08:26 11:20 WBC RBC 3.16 L Hgb 9.1 L Hct 27.0 L MCV MCHC RDW Plt Count Lymph % (Auto) [place] % (Auto) 11.8 H Lymph # [place] # Baso # Seg Neutrophils % Seg Neuts % (Manual) Lymphocytes % (Manual) Monocytes % (Manual) Nucleated RBC % Seg Neutrophils # Seg Neutrophils # Man Lymphocytes # (Manual) Monocytes # (Manual) PT INR POC ABG pH POC ABG pCO2 POC ABG pO2 Sodium 135 L Potassium Chloride Carbon Dioxide 21 L BUN Creatinine 0.5 L Glucose 155 H POC Glucose 166 H Calcium Phosphorus Magnesium AST ALT Alkaline Phosphatase Lactate Dehydrogenase C-Reactive Protein Total Protein Albumin Urine WBC (Auto) Miscellaneous Test 04/30/18 04/30/18 05/01/18 12:24 18:05 02:52 WBC RBC Hgb Hct MCV MCHC RDW Plt Count Lymph % (Auto) [place] % (Auto) Lymph # [place] # Baso # Seg Neutrophils % Seg Neuts % (Manual) Lymphocytes % (Manual) Monocytes % (Manual) Nucleated RBC % Seg Neutrophils # Seg Neutrophils # Man Lymphocytes # (Manual) Monocytes # (Manual) PT INR POC ABG pH POC ABG pCO2 POC ABG pO2 Sodium Potassium Chloride Carbon Dioxide BUN Creatinine Glucose POC Glucose 176 H 147 H 132 H Calcium Phosphorus Magnesium AST ALT Alkaline Phosphatase Lactate Dehydrogenase C-Reactive Protein Total Protein Albumin Urine WBC (Auto) Miscellaneous Test 05/01/18 04:00 WBC RBC Hgb Hct MCV MCHC RDW Plt Count Lymph % (Auto) [place] % (Auto) Lymph # [place] # Baso # Seg Neutrophils % Seg Neuts % (Manual) Lymphocytes % (Manual) Monocytes % (Manual) Nucleated RBC % Seg Neutrophils # Seg Neutrophils # Man Lymphocytes # (Manual) Monocytes # (Manual) PT INR POC ABG pH POC ABG pCO2 POC ABG pO2 Sodium 134 L Potassium Chloride Carbon Dioxide BUN Creatinine 0.6 L Glucose 101 H POC Glucose Calcium Phosphorus Magnesium AST ALT Alkaline Phosphatase Lactate Dehydrogenase C-Reactive Protein Total Protein Albumin Urine WBC (Auto) Miscellaneous Test Allied health notes reviewed: nursing
--- NOTE | 2018-05-01 16:50 | Progress Note ---
Assessment and Plan Assessment and plan: Hospitalist Consulted for Medical management of hypertension on 04/17/18, Patient admitted on 04/07/[address] Wynn Ms. Machado is a 58 y.o. woman with a history of obesity s/p lap sleeve gastrectomy with hiatal hernia repair and partial fundoplication 03/30/18, presents to ER with abdominal pains on 04/07/18. She was found to have perforation and under the following: DATE OF PROCEDURE 04/07/18 PREOPERATIVE DIAGNOSES: Pneumoperitoneum POSTOPERATIVE DIAGNOSES: 1. Gastric perforation SURGEON: Dr. Estes CHEMICAL MAKER: Dony Perez DO SOLDERING MACHINE SETTER PROCEDURE: 1. Diagnostic laparoscopy 2. Repair of gastric perforation 3. Abdominal washout 4. intraoperative EGD /Hypertension. Monitor BP, stable, highest bp documented since admission 165/85. On Clonidine patch and iv prn Labetalol, Also Hydraazine iv prn. /Sepsis due to intraabdominal infection and PNA. - treated with cefepime and flagyl along with zosyn - total 17 days of abx - S/p vanco IV x 10 days until 04/19 for MSSA - monitored fever and leukocytosis off abx - ID Physician managing, restarted abx today again as cont to spike fever /Gastric perforation s/p exploratory lap, repair of perforation on 04/07/18. Surg is attending, managing, on TPN /Pneumoperitoneum due to gastric perforation, s/p repair of perforation on 04/07/18- per surgery /Acute respiratory failure with Pleural Effusion s/p thoracentesis 04/26/18 On supplemental Oxygen by HI Pulmonology is managing /Bilateral pneumonia vs atelectasis, completed abx /Pleural Effusion s/p thoracentesis Pulmonology is followi /Hypokalemia, resolved /Obstructive seep apnea, CPAP at bedtime Full code status Disposition: SNF when cleared by surgery, ID and pulmonology History Interval history: Patient was seen and examined. Follow-up on current diagnosis of hypertension. Overnight uneventful. Patient denies any chest pain, shortness breath, nausea/ vomiting or severe headaches. Imaging, nursing note, chart, labs and old chart reviewed. Discussed with patient. Hospitalist Physical - Physical exam Narrative exam: GEN: WDWN, bmi 34, NAD, Awake, Alert, Orientated x3 HEENT: NCAT, EOMI, PERRL, OP Clear NECK: supple, no adenopathy, no thyromegaly, no JVD CVS/HEART: RRR, normal S1S2, pulses present bilaterally CHEST/LUNGS: diminished bs bilateral, Symmetrical chest expansion, reduced air entry bilaterally GI/Abdomen: soft,drains in place good bowel sounds, no guarding or rebound /Bladder: no suprapubic tenderness, no CVA or paraspinal tenderness EXT/Skin: no c/c/e, no obvious rash MSK: FROM x 4 Neuro: CN 2-12 grossly intact, no new focal deficits Psych: calm - Constitutional Vitals: Temp Pulse Resp BP Pulse Ox 99.2 F 101 H 20 140/75 96 05/01/18 08:30 05/01/18 08:30 05/01/18 08:30 05/01/18 08:30 05/01/18 08:31 General appearance: Present: no acute distress, obese Results - Labs CBC & Chem 7: 04/30/18 11:20 05/01/18 04:00 Labs: Laboratory Last Values WBC 6.4 K/mm3 (4.5-11.0) 04/30/18 11:20 RBC 3.16 M/mm3 (3.65-5.03) L 04/30/18 11:20 Hgb 9.1 gm/dl (10.1-14.3) L 04/30/18 11:20 Hct 27.0 % (30.3-42.9) L 04/30/18 11:20 MCV 86 fl (79-97) 04/30/18 11:20 MCH 29 pg (28-32) 04/30/18 11:20 MCHC 34 % (30-34) 04/30/18 11:20 RDW 14.3 % (13.2-15.2) 04/30/18 11:20 Plt Count 236 K/mm3 (140-440) 04/30/18 11:20 Lymph % (Auto) 22.2 % (13.4-35.0) 04/30/18 11:20 [place] % (Auto) 11.8 % (0.0-7.3) H 04/30/18 11:20 Eos % (Auto) 2.1 % (0.0-4.3) 04/30/18 11:20 Baso % (Auto) 0.5 % (0.0-1.8) 04/30/18 11:20 Lymph # 1.4 K/mm3 (1.2-5.4) 04/30/18 11:20 [place] # 0.8 K/mm3 (0.0-0.8) 04/30/18 11:20 Eos # 0.1 K/mm3 (0.0-0.4) 04/30/18 11:20 Baso # 0.0 K/mm3 (0.0-0.1) 04/30/18 11:20 Add Manual Diff Complete 04/16/18 06:12 Total Counted 100 04/16/18 06:12 Seg Neutrophils % 63.4 % (40.0-70.0) 04/30/18 11:20 Seg Neuts % (Manual) 88.0 % (40.0-70.0) H 04/16/18 06:12 Band Neutrophils % 1.0 % 04/16/18 06:12 Lymphocytes % (Manual) 5.0 % (13.4-35.0) L 04/16/18 06:12 Reactive Lymphs % (Man) 0 % 04/16/18 06:12 Monocytes % (Manual) 2.0 % (0.0-7.3) 04/16/18 06:12 Eosinophils % (Manual) 0 % (0.0-4.3) 04/16/18 06:12 Basophils % (Manual) 0 % (0.0-1.8) 04/16/18 06:12 Metamyelocytes % 4.0 % 04/16/18 06:12 Myelocytes % 0 % 04/16/18 06:12 Promyelocytes % 0 % 04/16/18 06:12 Blast Cells % 0 % 04/16/18 06:12 Nucleated RBC % Not Reportable 04/16/18 06:12 Seg Neutrophils # 4.1 K/mm3 (1.8-7.7) 04/30/18 11:20 Seg Neutrophils # Man 18.2 K/mm3 (1.8-7.7) H 04/16/18 06:12 Band Neutrophils # 0.2 K/mm3 04/16/18 06:12 Lymphocytes # (Manual) 1.0 K/mm3 (1.2-5.4) L 04/16/18 06:12 Abs React Lymphs (Man) 0.0 K/mm3 04/16/18 06:12 Monocytes # (Manual) 0.4 K/mm3 (0.0-0.8) 04/16/18 06:12 Eosinophils # (Manual) 0.0 K/mm3 (0.0-0.4) 04/16/18 06:12 Basophils # (Manual) 0.0 K/mm3 (0.0-0.1) 04/16/18 06:12 Metamyelocytes # 0.8 K/mm3 04/16/18 06:12 Myelocytes # 0.0 K/mm3 04/16/18 06:12 Promyelocytes # 0.0 K/mm3 04/16/18 06:12 Blast Cells # 0.0 K/mm3 04/16/18 06:12 WBC Morphology Not Reportable 04/16/18 06:12 Hypersegmented Neuts Not Reportable 04/16/18 06:12 Hyposegmented Neuts Not Reportable 04/16/18 06:12 Hypogranular Neuts Not Reportable 04/16/18 06:12 Smudge Cells Not Reportable 04/16/18 06:12 Toxic Granulation Not Reportable 04/16/18 06:12 Toxic Vacuolation Not Reportable 04/16/18 06:12 Dohle Bodies Not Reportable 04/16/18 06:12 Pelger-Huet Anomaly Not Reportable 04/16/18 06:12 Narendra Rods Not Reportable 04/16/18 06:12 Platelet Estimate Cons 04/16/18 06:12 Clumped Platelets Not Reportable 04/16/18 06:12 Plt Clumps, EDTA Not Reportable 04/16/18 06:12 Large Platelets Not Reportable 04/16/18 06:12 Giant Platelets Not Reportable 04/16/18 06:12 Platelet Satelliting Not Reportable 04/16/18 06:12 Plt Morphology Comment Not Reportable 04/16/18 06:12 RBC Morphology Not Reportable 04/16/18 06:12 Dimorphic RBCs Not Reportable 04/16/18 06:12 Polychromasia Few 04/16/18 06:12 Hypochromasia Not Reportable 04/16/18 06:12 Poikilocytosis Not Reportable 04/16/18 06:12 Anisocytosis 1+ 04/16/18 06:12 Microcytosis Not Reportable 04/16/18 06:12 Macrocytosis Not Reportable 04/16/18 06:12 Spherocytes Not Reportable 04/16/18 06:12 Pappenheimer Bodies Not Reportable 04/16/18 06:12 Sickle Cells Not Reportable 04/16/18 06:12 Target Cells Not Reportable 04/16/18 06:12 Tear Drop Cells Not Reportable 04/16/18 06:12 Ovalocytes Not Reportable 04/16/18 06:12 Helmet Cells Not Reportable 04/16/18 06:12 [place] Bodies Not Reportable 04/16/18 06:12 [place]ice Rings Not Reportable 04/16/18 06:12 [place] Cells Not Reportable 04/16/18 06:12 Bite Cells Not Reportable 04/16/18 06:12 Crenated Cell Not Reportable 04/16/18 06:12 Elliptocytes Not Reportable 04/16/18 06:12 Acanthocytes (Spur) Not Reportable 04/16/18 06:12 Rouleaux Not Reportable 04/16/18 06:12 Hemoglobin C Crystals Not Reportable 04/16/18 06:12 Schistocytes Not Reportable 04/16/18 06:12 Malaria parasites Not Reportable 04/16/18 06:12 Giorgio Bodies Not Reportable 04/16/18 06:12 Hem Pathologist Commnt No 04/16/18 06:12 PT 17.2 Sec. (12.2-14.9) H 04/26/18 16:39 INR 1.33 (0.87-1.13) H 04/26/18 16:39 APTT 29.0 Sec. (24.2-36.6) 04/07/18 16:28 POC ABG pH 7.519 (7.35-7.45) H 04/10/18 12:59 POC ABG pCO2 29.3 (35-45) L 04/10/18 12:59 POC ABG pO2 63 (80-105) L 04/10/18 12:59 POC ABG HCO3 23.9 04/10/18 12:59 POC ABG Total CO2 25 04/10/18 12:59 POC ABG O2 Sat 94 04/10/18 12:59 POC ABG Base Excess 1 04/10/18 12:59 VBG pH 7.413 (7.320-7.420) 04/07/18 09:41 FiO2 28 % 04/10/18 12:59 Sodium 134 mmol/L (137-145) L 05/01/18 04:00 Potassium 3.9 mmol/L (3.6-5.0) 05/01/18 04:00 Chloride 100.5 mmol/L (98-107) 05/01/18 04:00 Carbon Dioxide 24 mmol/L (22-30) 05/01/18 04:00 Anion Gap 13 mmol/L 05/01/18 04:00 BUN 11 mg/dL (7-17) 05/01/18 04:00 Creatinine 0.6 mg/dL (0.7-1.2) L 05/01/18 04:00 Estimated GFR > 60 ml/min 05/01/18 04:00 BUN/Creatinine Ratio 18 % 05/01/18 04:00 Glucose 101 mg/dL (65-100) H 05/01/18 04:00 POC Glucose 132 (70-105) H 05/01/18 02:52 Lactic Acid 0.80 mmol/L (0.7-2.0) 04/08/18 13:33 Calcium 8.6 mg/dL (8.4-10.2) 05/01/18 04:00 Phosphorus 3.70 mg/dL (2.5-4.5) 04/30/18 08:26 Magnesium 1.90 mg/dL (1.7-2.3) 04/30/18 08:26 Total Bilirubin 0.40 mg/dL (0.1-1.2) 04/27/18 05:50 AST 97 units/L (5-40) H 04/27/18 05:50 ALT 222 units/L (7-56) H 04/27/18 05:50 Alkaline Phosphatase 191 units/L (35-129) H 04/27/18 05:50 Lactate Dehydrogenase 266 units/L (91-180) H 04/26/18 16:10 Total Creatine Kinase 37 units/L (30-135) 04/19/18 12:55 CK-MB (CK-2) 1.0 ng/mL (0.0-4.0) 04/19/18 12:55 CK-MB (CK-2) Rel Index 2.7 (0-4) 04/19/18 12:55 Troponin T < 0.010 ng/mL (0.00-0.029) 04/19/18 12:55 C-Reactive Protein 29.60 mg/dL (0.00-1.30) H 04/13/18 04:20 Total Protein 7.5 g/dL (6.3-8.2) 04/27/18 05:50 Albumin 2.5 g/dL (3.9-5) L 04/27/18 05:50 Albumin/Globulin Ratio 0.5 % 04/27/18 05:50 Triglycerides 114 mg/dL (2-149) 04/16/18 08:52 Urine Color Yellow (Yellow) 04/24/18 15:20 Urine Turbidity Clear (Clear) 04/24/18 15:20 Urine pH 6.0 (5.0-7.0) 04/24/18 15:20 Ur Specific [place] 1.023 (1.003-1.030) 04/24/18 15:20 Urine Protein 30 mg/dl mg/dL (Negative) 04/24/18 15:20 Urine Glucose (UA) Neg mg/dL (Negative) 04/24/18 15:20 Urine Ketones Neg mg/dL (Negative) 04/24/18 15:20 Urine Blood Neg (Negative) 04/24/18 15:20 Urine Nitrite Neg (Negative) 04/24/18 15:20 Urine Bilirubin Neg (Negative) 04/24/18 15:20 Urine Urobilinogen < 2.0 mg/dL (<2.0) 04/24/18 15:20 Ur Leukocyte Esterase Neg (Negative) 04/24/18 15:20 Urine WBC (Auto) 3.0 /HPF (0.0-6.0) 04/24/18 15:20 Urine RBC (Auto) 4.0 /HPF (0.0-6.0) 04/24/18 15:20 U Epithel Cells (Auto) 4.0 /HPF (0-13.0) 04/24/18 15:20 Urine Mucus Few /HPF 04/24/18 15:20 Vancomycin Trough 13.2 ug/mL (5.0-20.0) 04/14/18 15:51 Miscellaneous Test Flexitest 1 H 04/13/18 13:37
[2018-05-01] MEDS ORDERED: TPN ADULT 1,800 ML IV SCH (20:00)
[2018-05-01] MEDS: LOVENOX SUB-Q SCH (22:01)
--- NOTE | 2018-05-01 22:09 | Progress Note ---
Assessment and Plan Improving from surgical viewpoint. Will get ugi series again, and if no leak detected, will advance diet per bariatric protocol as tolerated. If no leakage and tolerates liquids well, patient can be discharged to LTAC from surgical point of view. Subjective Patient Reports: Positive: no new complaints, feels better, fever (Temp spike to 101.6 but wbc is wnl) Objective Vital Signs - 12hr 05/01/18 05/01/18 05/01/18 12:05 16:20 20:31 Temperature 98.8 F 98.6 F Pulse Rate 100 H 99 H Pulse Rate [ 118 H Anterior Bilateral] Respiratory 21 21 Rate Respiratory 18 Rate [Anterior Bilateral] Blood Pressure Blood Pressure 141/72 140/70 [Left] O2 Sat by Pulse 97 96 Oximetry 05/01/18 05/01/18 20:37 20:46 Temperature 101.4 F H Pulse Rate 111 H Pulse Rate [ Anterior Bilateral] Respiratory 18 Rate Respiratory 18 Rate [Anterior Bilateral] Blood Pressure 152/81 Blood Pressure [Left] O2 Sat by Pulse 96 Oximetry - General physical appearance no distress - Respiratory other (Patient in good spirits but breathing slightly labored when talking) - Abdomen soft, bowel sounds normal, surgical scars - Labs 04/30/18 11:20 05/01/18 04:00 Diabetes panel 05/01/18 Range/Units 04:00 Sodium 134 L (137-145) mmol/L Potassium 3.9 (3.6-5.0) mmol/L Chloride 100.5 (98-107) mmol/L Carbon Dioxide 24 (22-30) mmol/L BUN 11 (7-17) mg/dL Creatinine 0.6 L (0.7-1.2) mg/dL Glucose 101 H (65-100) mg/dL Calcium 8.6 (8.4-10.2) mg/dL Calcium panel 05/01/18 Range/Units 04:00 Calcium 8.6 (8.4-10.2) mg/dL Pituitary panel 05/01/18 Range/Units 04:00 Sodium 134 L (137-145) mmol/L Potassium 3.9 (3.6-5.0) mmol/L Chloride 100.5 (98-107) mmol/L Carbon Dioxide 24 (22-30) mmol/L BUN 11 (7-17) mg/dL Creatinine 0.6 L (0.7-1.2) mg/dL Glucose 101 H (65-100) mg/dL Calcium 8.6 (8.4-10.2) mg/dL Adrenal panel 05/01/18 Range/Units 04:00 Sodium 134 L (137-145) mmol/L Potassium 3.9 (3.6-5.0) mmol/L Chloride 100.5 (98-107) mmol/L Carbon Dioxide 24 (22-30) mmol/L BUN 11 (7-17) mg/dL Creatinine 0.6 L (0.7-1.2) mg/dL Glucose 101 H (65-100) mg/dL Calcium 8.6 (8.4-10.2) mg/dL
[2018-05-02] MEDS: ZOSYN/NS 4.5GM/100ML 4.5 GM/100 ML VIAL IV SCH ×3 (02:54→17:26)
[2018-05-02] MEDS: NORMODYNE IV SCH ×5 (02:56→21:59)
[2018-05-02] MEDS: ZOFRAN IV PRN ×3 (05:25→16:20)
[2018-05-02] MEDS: DILAUDID IV PRN ×5 (05:26→20:42)
[2018-05-02 06:19] LABS: BUN/Creatinine Ratio 20; Blood Urea Nitrogen 12 mg/dL (7-17); Calcium 8.6 mg/dL (8.4-10.2); Hemolysis Index 0
[2018-05-02] MEDS: PULMICORT IH SCH ×2 (09:05→22:01)
[2018-05-02] MEDS: BROVANA NEBU IH SCH ×2 (09:06→22:01)
[2018-05-02] MEDS ORDERED: PROVENTIL IH PRN (09:13)
[2018-05-02] MEDS: SODIUM CHLORIDE FLUSH SYRINGE 10 ML IV SCH ×2 (10:03→22:02)
[2018-05-02] MEDS: PROTONIX IV SCH ×2 (10:03→22:02)
[2018-05-02] MEDS: LOVENOX SUB-Q SCH ×2 (10:06→21:50)
[2018-05-02] MEDS: ZYVOX 600MG/300ML 600 MG/300 ML BAG IV SCH ×2 (10:46→22:00)
--- NOTE | 2018-05-02 12:04 | Progress Note ---
Assessment and Plan Sepsis with altered mental status in the setting of the systemic inflammatory response syndrom. Perforated abdominal viscus status post exploratory laparotomy and repair. Obesity. Pleural effusion Bilateral lower lobe infiltrates Obstructive sleep apnea according to the history. Acute encephalopathy, presumably toxic metabolic( resolved) History of hypertension. Arthritis. Gastroesophageal reflux disease. Morbid obesity. Acute hypoxemic respiratory failure Leukocytosis Hyperglycemia--spurious - wean supplemental oxygen for O2 satssats > 90% - BIPAP qhs and prn - Continue incentive spirometry and airway expansion measures -Gentle diuresis while monitoring hemodynamics, electrolyte profile and renal function -bronchodilators prn -Antibiotics/anti-infectives per ID - continue TPN , supportive care - continue GI & VTE prophylaxis - wound care per WCT / RN and surgeon - continue other care per attending / other consultants -stable from Pulmonary standpoint for discharge planning Subjective Date of service: 05/02/18 Principal diagnosis: Sepsis Syndrome; Acute Hypoxemic Resp Failure; Acute Encephalopathy Interval history: Sepsis Syndrome; Acute Hypoxemic Resp Failure; Acute Encephalopathy Seen and examined at bedside; 24hour events reviewed; nursing and respiratory care staff consulted; no adverse overnight events reported to me; resting in bed ; much more appropriate mentally; No more fevers s/p thoracentesis... Ambulating, feels great. No chest pain, no shortness of breath. To start clear liquid diet today Objective Vital Signs - 12hr 05/02/18 05/02/18 05/02/18 00:33 00:34 02:56 Temperature 99.3 F Pulse Rate 104 H 105 H 105 H Pulse Rate [ Anterior Bilateral] Respiratory 18 Rate Respiratory Rate [Abdomen] Respiratory Rate [Anterior Bilateral] Blood Pressure 149/79 149/79 O2 Sat by Pulse 97 97 Oximetry 05/02/18 05/02/18 05/02/18 04:41 07:12 07:50 Temperature 98.3 F 98.6 F Pulse Rate 96 H 92 H Pulse Rate [ Anterior Bilateral] Respiratory 18 18 Rate Respiratory Rate [Abdomen] Respiratory Rate [Anterior Bilateral] Blood Pressure 144/69 134/69 O2 Sat by Pulse 98 98 98 Oximetry 05/02/18 05/02/18 05/02/18 08: 08:42 08:48 Temperature Pulse Rate Pulse Rate [ Anterior Bilateral] Respiratory 20 16 Rate Respiratory 16 Rate [Abdomen] Respiratory Rate [Anterior Bilateral] Blood Pressure O2 Sat by Pulse Oximetry 05/02/18 05/02/1805/02/18 09:00 09:08 09:11 Temperature Pulse Rate 92 H Pulse Rate [ 90 Anterior Bilateral] Respiratory Rate Respiratory Rate [Abdomen] Respiratory 16 Rate [Anterior Bilateral] Blood Pressure 134/69 O2 Sat by Pulse 98 Oximetry 05/02/18 05/02/18 09:17 11:59 Temperature Pulse Rate Pulse Rate [ 91 H Anterior Bilateral] Respiratory 16 Rate Respiratory Rate [Abdomen] Respiratory 16 Rate [Anterior Bilateral] Blood Pressure O2 Sat by Pulse Oximetry Constitutional: no acute distress, alert Eyes: non-icteric ENT: oropharynx moist, other (no thyromegaly) Neck: supple, no lymphadenopathy, no JVD, other (large neck circumference) Effort: normal Ascultation: Bilateral: diminished breath sounds, rhonchi (scant in bases) Percussion: Bilateral: not dull Cardiovascular: regular rate and rhythm, other (No R/M) Gastrointestinal: normoactive bowel sounds, soft, non-tender, non-distended, other (no palpable HSM, KRISTI drains) Integumentary: normal Extremities: no cyanosis, no edema, pulses normal, no ischemia or petechiae Neurologic: normal mental status, non-focal exam, pupils equal and round, CN II- XII normal, motor strength normal and Psychiatric: mood appropriate, affect normal CBC and BMP: 04/30/18 11:20 05/02/18 05:50 ABG, PT/INR, D-dimer: ABG POC ABG pH 7.519 (7.35-7.45) H 04/10/18 12:59 POC ABG pCO2 29.3 (35-45) L 04/10/18 12:59 POC ABG pO2 63 (80-105) L 04/10/18 12:59 POC ABG HCO3 23.9 04/10/18 12:59 POC ABG Total CO2 25 04/10/18 12:59 POC ABG O2 Sat 94 04/10/18 12:59 PT/INR, D-dimer PT 17.2 Sec. (12.2-14.9) H 04/26/18 16:39 INR 1.33 (0.87-1.13) H 04/26/18 16:39 Abnormal lab findings: Abnormal Labs 07/11/18 07/11/18 07/11/18 00:05 00:05 09:41 WBC 18.4 H 21.3 H RBC Hgb Hct MCV MCHC RDW Plt Count Lymph % (Auto) 4.5 L Jay % (Auto) Lymph # 0.8 L Jay # 1.2 H Baso # Seg Neutrophils % 88.9 H Seg Neuts % (Manual) 85.0 H Lymphocytes % (Manual) 4.0 L Monocytes % (Manual) Nucleated RBC % Seg Neutrophils # 16.4 H Seg Neutrophils # Man 18.1 H Lymphocytes # (Manual) 0.9 L Monocytes # (Manual) 1.1 H PT INR POC ABG pH POC ABG pCO2 POC ABG pO2 Sodium Potassium Chloride Carbon Dioxide BUN Creatinine Glucose 123 H POC Glucose Calcium 8.0 L Phosphorus Magnesium 1.60 L AST 59 H ALT Alkaline Phosphatase Lactate Dehydrogenase C-Reactive Protein Total Protein Albumin 2.9 L Urine WBC (Auto) Miscellaneous Test 04/07/18 04/08/18 04/08/18 09:41 00:20 10:25 WBC 19.2 H RBC Hgb Hct MCV MCHC RDW Plt Count Lymph % (Auto) 5.4 L Jay % (Auto) Lymph # 1.0 L Jay # 1.1 H Baso # Seg Neutrophils % 88.9 H Seg Neuts % (Manual) Lymphocytes % (Manual) Monocytes % (Manual) Nucleated RBC % Seg Neutrophils # 17.1 H Seg Neutrophils # Man Lymphocytes # (Manual) Monocytes # (Manual) PT INR POC ABG pH POC ABG pCO2 POC ABG pO2 Sodium Potassium 3.3 L Chloride 95.1 L Carbon Dioxide 21 L BUN Creatinine Glucose 113 H POC Glucose Calcium Phosphorus Magnesium AST ALT Alkaline Phosphatase Lactate Dehydrogenase C-Reactive Protein Total Protein Albumin 3.6 L Urine WBC (Auto) 45.0 H Miscellaneous Test 04/08/18 04/08/18 04/08/18 10:25 13:33 23:53 WBC 12.8 H RBC Hgb Hct MCV MCHC RDW Plt Count Lymph % (Auto) Jay % (Auto) Lymph # Jay # Baso # Seg Neutrophils % Seg Neuts % (Manual) 97.0 H Lymphocytes % (Manual) 2.0 L Monocytes % (Manual) Nucleated RBC % Seg Neutrophils # Seg Neutrophils # Man 12.4 H Lymphocytes # (Manual) 0.3 L Monocytes # (Manual) PT INR POC ABG pH POC ABG pCO2 POC ABG pO2 Sodium Potassium 3.5 L Chloride Carbon Dioxide BUN Creatinine Glucose 123 H POC Glucose Calcium 7.9 L Phosphorus Magnesium AST 53 H ALT Alkaline Phosphatase Lactate Dehydrogenase C-Reactive Protein 52.00 H Total Protein 6.1 L Albumin 2.7 L Urine WBC (Auto) Miscellaneous Test 04/09/18 04/09/18 04/09/18 04:20 04:20 13:38 WBC 16.2 H RBC Hgb Hct MCV MCHC RDW Plt Count Lymph % (Auto) Jay % (Auto) Lymph # Jay # Baso # Seg Neutrophils % Seg Neuts % (Manual) 89.0 H Lymphocytes % (Manual) 4.0 L Monocytes % (Manual) Nucleated RBC % Seg Neutrophils # Seg Neutrophils # Man 14.4 H Lymphocytes # (Manual) 0.6 L Monocytes # (Manual) PT INR POC ABG pH 7.494 H POC ABG pCO2 31.6 L POC ABG pO2 68 L Sodium Potassium 3.5 L Chloride Carbon Dioxide BUN Creatinine 0.6 L Glucose 117 H POC Glucose Calcium 7.9 L Phosphorus 1.50 L D Magnesium AST ALT Alkaline Phosphatase Lactate Dehydrogenase C-Reactive Protein Total Protein 5.6 L Albumin 2.9 L Urine WBC (Auto) Miscellaneous Test 04/09/18 04/09/18 04/09/18 18:25 21:45 21:45 WBC 21.3 H RBC 3.62 L Hgb Hct MCV MCHC 35 H RDW Plt Count Lymph % (Auto) Jay % (Auto) Lymph # Jay # Baso # Seg Neutrophils % Seg Neuts % (Manual) 90.0 H Lymphocytes % (Manual) 6.0 L Monocytes % (Manual) Nucleated RBC % 1.0 H Seg Neutrophils # Seg Neutrophils # Man 19.2 H Lymphocytes # (Manual) Monocytes # (Manual) 0.9 H PT INR POC ABG pH POC ABG pCO2 POC ABG pO2 Sodium Potassium Chloride Carbon Dioxide BUN 5 L Creatinine 0.5 L Glucose 134 H POC Glucose 155 H Calcium 7.9 L Phosphorus 2.20 L D Magnesium AST ALT Alkaline Phosphatase Lactate Dehydrogenase C-Reactive Protein Total Protein Albumin Urine WBC (Auto) Miscellaneous Test 04/09/18 04/10/18 04/10/18 23:38 04:07 04:07 WBC 20.2 H RBC 3.38 L Hgb 9.4 L Hct 28.9 L MCV MCHC RDW Plt Count Lymph % (Auto) Jay % (Auto) Lymph # Jay # Baso # Seg Neutrophils % Seg Neuts % (Manual) Lymphocytes % (Manual) 6.0 L Monocytes % (Manual) Nucleated RBC % Seg Neutrophils # Seg Neutrophils # Man 10.7 H Lymphocytes # (Manual) Monocytes # (Manual) PT INR POC ABG pH POC ABG pCO2 POC ABG pO2 Sodium Potassium Chloride Carbon Dioxide BUN 6 L Creatinine 0.6 L Glucose 176 H POC Glucose 160 H Calcium 7.7 L Phosphorus Magnesium AST ALT Alkaline Phosphatase Lactate Dehydrogenase C-Reactive Protein Total Protein Albumin Urine WBC (Auto) Miscellaneous Test 04/10/18 04/10/18 04/10/18 05:29 11:55 12:59 WBC RBC Hgb Hct MCV MCHC RDW Plt Count Lymph % (Auto) Jay % (Auto) Lymph # Jay # Baso # Seg Neutrophils % Seg Neuts % (Manual) Lymphocytes % (Manual) Monocytes % (Manual) Nucleated RBC % Seg Neutrophils # Seg Neutrophils # Man Lymphocytes # (Manual) Monocytes # (Manual) PT INR POC ABG pH 7.519 H POC ABG pCO2 29.3 L POC ABG pO2 63 L Sodium Potassium Chloride Carbon Dioxide BUN Creatinine Glucose POC Glucose 171 H 194 H Calcium Phosphorus Magnesium AST ALT Alkaline Phosphatase Lactate Dehydrogenase C-Reactive Protein Total Protein Albumin Urine WBC (Auto) Miscellaneous Test 04/10/18 04/10/18 04/10/18 18:11 18:28 18:28 WBC 22.7 H RBC 3.62 L Hgb Hct MCV MCHC RDW Plt Count Lymph % (Auto) Jay % (Auto) Lymph # Jay # Baso # Seg Neutrophils % Seg Neuts % (Manual) 84.0 H Lymphocytes % (Manual) 7.0 L Monocytes % (Manual) 8.0 H Nucleated RBC % Seg Neutrophils # Seg Neutrophils # Man 19.1 H Lymphocytes # (Manual) Monocytes # (Manual) 1.8 H PT INR POC ABG pH POC ABG pCO2 POC ABG pO2 Sodium Potassium Chloride Carbon Dioxide BUN Creatinine Glucose POC Glucose 118 H Calcium Phosphorus Magnesium AST ALT Alkaline Phosphatase Lactate Dehydrogenase C-Reactive Protein 45.20 H Total Protein Albumin Urine WBC (Auto) Miscellaneous Test 04/10/18 04/10/18 04/11/18 18:28 23:45 03:35 WBC 20.9 H RBC 3.54 L Hgb 10.0 L Hct MCV MCHC RDW Plt Count Lymph % (Auto) Jay % (Auto) Lymph # Jay # Baso # Seg Neutrophils % Seg Neuts % (Manual) 80.0 H Lymphocytes % (Manual) 6.0 L Monocytes % (Manual) Nucleated RBC % Seg Neutrophils # Seg Neutrophils # Man 16.7 H Lymphocytes # (Manual) Monocytes # (Manual) PT INR POC ABG pH POC ABG pCO2 POC ABG pO2 Sodium Potassium 3.5 L Chloride Carbon Dioxide BUN 5 L Creatinine 0.5 L Glucose 108 H POC Glucose 149 H Calcium 8.3 L Phosphorus Magnesium AST ALT Alkaline Phosphatase Lactate Dehydrogenase C-Reactive Protein Total Protein Albumin Urine WBC (Auto) Miscellaneous Test 04/11/18 04/11/18 04/11/18 03:35 06:17 11:29 WBC RBC Hgb Hct MCV MCHC RDW Plt Count Lymph % (Auto) Jay % (Auto) Lymph # Jay # Baso # Seg Neutrophils % Seg Neuts % (Manual) Lymphocytes % (Manual) Monocytes % (Manual) Nucleated RBC % Seg Neutrophils # Seg Neutrophils # Man Lymphocytes # (Manual) Monocytes # (Manual) PT INR POC ABG pH POC ABG pCO2 POC ABG pO2 Sodium Potassium Chloride Carbon Dioxide BUN Creatinine 0.5 L Glucose 143 H POC Glucose 155 H 158 H Calcium 8.2 L Phosphorus Magnesium AST ALT Alkaline Phosphatase Lactate Dehydrogenase C-Reactive Protein Total Protein 6.0 L Albumin 2.2 L Urine WBC (Auto) Miscellaneous Test 04/11/18 04/11/18 04/12/18 18:13 23:51 05:29 WBC RBC Hgb Hct MCV MCHC RDW Plt Count Lymph % (Auto) Jay % (Auto) Lymph # Jay # Baso # Seg Neutrophils % Seg Neuts % (Manual) Lymphocytes % (Manual) Monocytes % (Manual) Nucleated RBC % Seg Neutrophils # Seg Neutrophils # Man Lymphocytes # (Manual) Monocytes # (Manual) PT INR POC ABG pH POC ABG pCO2 POC ABG pO2 Sodium Potassium Chloride Carbon Dioxide BUN Creatinine Glucose POC Glucose 135 H 143 H 150 H Calcium Phosphorus Magnesium AST ALT Alkaline Phosphatase Lactate Dehydrogenase C-Reactive Protein Total Protein Albumin Urine WBC (Auto) Miscellaneous Test 04/12/18 04/12/18 04/13/18 05:40 05:40 00:32 WBC 18.0 H RBC 3.34 L Hgb 9.5 L Hct 28.9 L MCV MCHC RDW Plt Count Lymph % (Auto) 7.4 L Jay % (Auto) 10.8 H Lymph # Jay # 1.9 H Baso # Seg Neutrophils % 81.1 H Seg Neuts % (Manual) Lymphocytes % (Manual) Monocytes % (Manual) Nucleated RBC % Seg Neutrophils # 14.6 H Seg Neutrophils # Man Lymphocytes # (Manual) Monocytes # (Manual) PT INR POC ABG pH POC ABG pCO2 POC ABG pO2 Sodium Potassium Chloride 107.7 H Carbon Dioxide 21 L BUN Creatinine 0.6 L Glucose 140 H POC Glucose 144 H Calcium Phosphorus Magnesium AST ALT Alkaline Phosphatase Lactate Dehydrogenase C-Reactive Protein Total Protein Albumin Urine WBC (Auto) Miscellaneous Test 04/13/18 04/13/18 04/13/18 04:20 04:20 04:20 WBC 18.1 H RBC 3.52 L Hgb 9.8 L Hct 30.1 L MCV MCHC RDW Plt Count Lymph % (Auto) 11.1 L Jay % (Auto) 13.6 H Lymph # Jay # 2.5 H Baso # Seg Neutrophils % 74.4 H Seg Neuts % (Manual) Lymphocytes % (Manual) Monocytes % (Manual) Nucleated RBC % Seg Neutrophils # 13.4 H Seg Neutrophils # Man Lymphocytes # (Manual) Monocytes # (Manual) PT INR POC ABG pH POC ABG pCO2 POC ABG pO2 Sodium Potassium Chloride Carbon Dioxide BUN Creatinine 0.5 L Glucose 142 H POC Glucose Calcium Phosphorus Magnesium AST ALT Alkaline Phosphatase Lactate Dehydrogenase C-Reactive Protein 29.60 H Total Protein Albumin Urine WBC (Auto) Miscellaneous Test 04/13/18 04/13/18 04/13/18 05:35 13:37 23:50 WBC RBC Hgb Hct MCV MCHC RDW Plt Count Lymph % (Auto) Jay % (Auto) Lymph # Jay # Baso # Seg Neutrophils % Seg Neuts % (Manual) Lymphocytes % (Manual) Monocytes % (Manual) Nucleated RBC % Seg Neutrophils # Seg Neutrophils # Man Lymphocytes # (Manual) Monocytes # (Manual) PT INR POC ABG pH POC ABG pCO2 POC ABG pO2 Sodium Potassium Chloride Carbon Dioxide BUN Creatinine Glucose POC Glucose 142 H 160 H Calcium Phosphorus Magnesium AST ALT Alkaline Phosphatase Lactate Dehydrogenase C-Reactive Protein Total Protein Albumin Urine WBC (Auto) Miscellaneous Test Flexitest 1 H 04/14/18 04/14/18 04/14/18 04:00 04:00 05:29 WBC 22.1 H RBC 3.59 L Hgb 9.9 L Hct MCV MCHC RDW Plt Count Lymph % (Auto) Jay % (Auto) Lymph # Jay # Baso # Seg Neutrophils % Seg Neuts % (Manual) 73.0 H Lymphocytes % (Manual) 9.0 L Monocytes % (Manual) 11.0 H Nucleated RBC % Seg Neutrophils # Seg Neutrophils # Man 16.1 H Lymphocytes # (Manual) Monocytes # (Manual) 2.4 H PT INR POC ABG pH POC ABG pCO2 POC ABG pO2 Sodium Potassium Chloride Carbon Dioxide BUN Creatinine Glucose 155 H POC Glucose 133 H Calcium Phosphorus Magnesium 2.50 H AST ALT Alkaline Phosphatase Lactate Dehydrogenase C-Reactive Protein Total Protein Albumin Urine WBC (Auto) Miscellaneous Test 04/14/18 04/14/18 04/14/18 12:47 16:01 23:42 WBC RBC Hgb Hct MCV MCHC RDW Plt Count Lymph % (Auto) Jay % (Auto) Lymph # Jay # Baso # Seg Neutrophils % Seg Neuts % (Manual) Lymphocytes % (Manual) Monocytes % (Manual) Nucleated RBC % Seg Neutrophils # Seg Neutrophils # Man Lymphocytes # (Manual) Monocytes # (Manual) PT INR POC ABG pH POC ABG pCO2 POC ABG pO2 Sodium Potassium Chloride Carbon Dioxide BUN Creatinine Glucose POC Glucose 183 H 153 H 172 H Calcium Phosphorus Magnesium AST ALT Alkaline Phosphatase Lactate Dehydrogenase C-Reactive Protein Total Protein Albumin Urine WBC (Auto) Miscellaneous Test 04/15/18 04/15/18 04/15/18 04:42 04:42 05:49 WBC 21.5 H RBC 3.37 L Hgb 9.4 L Hct 28.9 L MCV MCHC RDW Plt Count 490 H Lymph % (Auto) Jay % (Auto) Lymph # Jay # Baso # Seg Neutrophils % Seg Neuts % (Manual) 77.0 H Lymphocytes % (Manual) 7.0 L Monocytes % (Manual) 10.0 H Nucleated RBC % Seg Neutrophils # Seg Neutrophils # Man 16.6 H Lymphocytes # (Manual) Monocytes # (Manual) 2.2 H PT INR POC ABG pH POC ABG pCO2 POC ABG pO2 Sodium Potassium 3.4 L Chloride 107.5 H Carbon Dioxide 21 L BUN Creatinine Glucose 165 H POC Glucose 147 H Calcium 8.0 L Phosphorus Magnesium 2.40 H AST ALT Alkaline Phosphatase Lactate Dehydrogenase C-Reactive Protein Total Protein Albumin Urine WBC (Auto) Miscellaneous Test 04/15/18 04/15/18 04/16/18 11:17 17:35 00:26 WBC RBC Hgb Hct MCV MCHC RDW Plt Count Lymph % (Auto) Jay % (Auto) Lymph # Jay # Baso # Seg Neutrophils % Seg Neuts % (Manual) Lymphocytes % (Manual) Monocytes % (Manual) Nucleated RBC % Seg Neutrophils # Seg Neutrophils # Man Lymphocytes # (Manual) Monocytes # (Manual) PT INR POC ABG pH POC ABG pCO2 POC ABG pO2 Sodium Potassium Chloride Carbon Dioxide BUN Creatinine Glucose POC Glucose 119 H 169 H 176 H Calcium Phosphorus Magnesium AST ALT Alkaline Phosphatase Lactate Dehydrogenase C-Reactive Protein Total Protein Albumin Urine WBC (Auto) Miscellaneous Test 04/16/18 04/16/18 04/16/18 06:12 06:19 06:21 WBC 20.7 H RBC 3.25 L Hgb 9.0 L Hct MCV MCHC 29 L RDW 16.7 H Plt Count 498 H Lymph % (Auto) Jay % (Auto) Lymph # Jay # Baso # Seg Neutrophils % Seg Neuts % (Manual) 88.0 H Lymphocytes % (Manual) 5.0 L Monocytes % (Manual) Nucleated RBC % Seg Neutrophils # Seg Neutrophils # Man 18.2 H Lymphocytes # (Manual) 1.0 L Monocytes # (Manual) PT INR POC ABG pH POC ABG pCO2 POC ABG pO2 Sodium Potassium Chloride Carbon Dioxide BUN Creatinine Glucose POC Glucose > 500 H 493 H Calcium Phosphorus Magnesium AST ALT Alkaline Phosphatase Lactate Dehydrogenase C-Reactive Protein Total Protein Albumin Urine WBC (Auto) Miscellaneous Test 04/16/18 04/16/18 04/16/18 06:24 08:52 14:05 WBC RBC Hgb Hct MCV MCHC RDW Plt Count Lymph % (Auto) Jay % (Auto) Lymph # Jay # Baso # Seg Neutrophils % Seg Neuts % (Manual) Lymphocytes % (Manual) Monocytes % (Manual) Nucleated RBC % Seg Neutrophils # Seg Neutrophils # Man Lymphocytes # (Manual) Monocytes # (Manual) PT INR POC ABG pH POC ABG pCO2 POC ABG pO2 Sodium Potassium 3.4 L Chloride Carbon Dioxide BUN Creatinine 0.5 L Glucose 166 H POC Glucose 173 H 196 H Calcium 8.2 L Phosphorus Magnesium AST ALT Alkaline Phosphatase Lactate Dehydrogenase C-Reactive Protein Total Protein Albumin Urine WBC (Auto) Miscellaneous Test 04/16/18 04/17/18 04/17/18 17:17 00:06 04:50 WBC 16.0 H RBC 3.12 L Hgb 8.7 L Hct 29.0 L MCV MCHC RDW 16.2 H Plt Count 455 H Lymph % (Auto) 9.4 L Jay % (Auto) 7.7 H Lymph # Jay # 1.2 H Baso # Seg Neutrophils % 81.9 H Seg Neuts % (Manual) Lymphocytes % (Manual) Monocytes % (Manual) Nucleated RBC % Seg Neutrophils # 13.1 H Seg Neutrophils # Man Lymphocytes # (Manual) Monocytes # (Manual) PT INR POC ABG pH POC ABG pCO2 POC ABG pO2 Sodium Potassium Chloride Carbon Dioxide BUN Creatinine Glucose POC Glucose 189 H 190 H Calcium Phosphorus Magnesium AST ALT Alkaline Phosphatase Lactate Dehydrogenase C-Reactive Protein Total Protein Albumin Urine WBC (Auto) Miscellaneous Test 04/17/18 04/17/18 04/17/18 04:50 05:38 07:17 WBC RBC Hgb Hct MCV MCHC RDW Plt Count Lymph % (Auto) Jay % (Auto) Lymph # Jay # Baso # Seg Neutrophils % Seg Neuts % (Manual) Lymphocytes % (Manual) Monocytes % (Manual) Nucleated RBC % Seg Neutrophils # Seg Neutrophils # Man Lymphocytes # (Manual) Monocytes # (Manual) PT INR POC ABG pH POC ABG pCO2 POC ABG pO2 Sodium 136 L Potassium 3.4 L Chloride 96.9 L Carbon Dioxide BUN Creatinine 0.6 L Glucose 167 H POC Glucose 190 H Calcium 7.6 L 8.0 L Phosphorus Magnesium AST ALT Alkaline Phosphatase Lactate Dehydrogenase C-Reactive Protein Total Protein Albumin Urine WBC (Auto) Miscellaneous Test 04/17/18 04/17/18 04/17/18 11:50 18:37 23:53 WBC RBC Hgb Hct MCV MCHC RDW Plt Count Lymph % (Auto) Jay % (Auto) Lymph # Jay # Baso # Seg Neutrophils % Seg Neuts % (Manual) Lymphocytes % (Manual) Monocytes % (Manual) Nucleated RBC % Seg Neutrophils # Seg Neutrophils # Man Lymphocytes # (Manual) Monocytes # (Manual) PT INR POC ABG pH POC ABG pCO2 POC ABG pO2 Sodium Potassium Chloride Carbon Dioxide BUN Creatinine Glucose POC Glucose 163 H 167 H 142 H Calcium Phosphorus Magnesium AST ALT Alkaline Phosphatase Lactate Dehydrogenase C-Reactive Protein Total Protein Albumin Urine WBC (Auto) Miscellaneous Test 04/18/18 04/18/18 04/18/18 05:59 10:05 12:25 WBC RBC Hgb Hct MCV MCHC RDW Plt Count Lymph % (Auto) Jay % (Auto) Lymph # Jay # Baso # Seg Neutrophils % Seg Neuts % (Manual) Lymphocytes % (Manual) Monocytes % (Manual) Nucleated RBC % Seg Neutrophils # Seg Neutrophils # Man Lymphocytes # (Manual) Monocytes # (Manual) PT INR POC ABG pH POC ABG pCO2 POC ABG pO2 Sodium Potassium Chloride Carbon Dioxide BUN Creatinine 0.5 L Glucose 127 H POC Glucose 144 H 171 H Calcium 8.2 L Phosphorus Magnesium AST ALT Alkaline Phosphatase Lactate Dehydrogenase C-Reactive Protein Total Protein Albumin Urine WBC (Auto) Miscellaneous Test 04/18/18 04/18/18 04/19/18 14:54 17:56 00:15 WBC 18.2 H RBC 2.95 L Hgb 8.9 L Hct 29.0 L MCV 98 H MCHC RDW 16.9 H Plt Count Lymph % (Auto) 9.2 L Jay % (Auto) Lymph # Jay # 1.2 H Baso # Seg Neutrophils % 82.7 H Seg Neuts % (Manual) Lymphocytes % (Manual) Monocytes % (Manual) Nucleated RBC % Seg Neutrophils # 15.1 H Seg Neutrophils # Man Lymphocytes # (Manual) Monocytes # (Manual) PT INR POC ABG pH POC ABG pCO2 POC ABG pO2 Sodium Potassium Chloride Carbon Dioxide BUN Creatinine Glucose POC Glucose 169 H 148 H Calcium Phosphorus Magnesium AST ALT Alkaline Phosphatase Lactate Dehydrogenase C-Reactive Protein Total Protein Albumin Urine WBC (Auto) Miscellaneous Test 04/19/18 04/19/18 04/19/18 05:21 08:00 08:00 WBC 18.7 H RBC Hgb Hct MCV MCHC RDW Plt Count 531 H Lymph % (Auto) Jay % (Auto) Lymph # Jay # Baso # Seg Neutrophils % Seg Neuts % (Manual) Lymphocytes % (Manual) Monocytes % (Manual) Nucleated RBC % Seg Neutrophils # Seg Neutrophils # Man Lymphocytes # (Manual) Monocytes # (Manual) PT INR POC ABG pH POC ABG pCO2 POC ABG pO2 Sodium Potassium Chloride Carbon Dioxide BUN 18 H Creatinine 0.5 L Glucose 141 H POC Glucose 146 H Calcium Phosphorus Magnesium AST ALT 76 H Alkaline Phosphatase 142 H Lactate Dehydrogenase C-Reactive Protein Total Protein Albumin 2.4 L Urine WBC (Auto) Miscellaneous Test 04/19/18 04/19/18 04/20/18 12:12 17:41 00:21 WBC RBC Hgb Hct MCV MCHC RDW Plt Count Lymph % (Auto) Jay % (Auto) Lymph # Jay # Baso # Seg Neutrophils % Seg Neuts % (Manual) Lymphocytes % (Manual) Monocytes % (Manual) Nucleated RBC % Seg Neutrophils # Seg Neutrophils # Man Lymphocytes # (Manual) Monocytes # (Manual) PT INR POC ABG pH POC ABG pCO2 POC ABG pO2 Sodium Potassium Chloride Carbon Dioxide BUN Creatinine Glucose POC Glucose 161 H 134 H 159 H Calcium Phosphorus Magnesium AST ALT Alkaline Phosphatase Lactate Dehydrogenase C-Reactive Protein Total Protein Albumin Urine WBC (Auto) Miscellaneous Test 04/20/18 04/20/18 04/20/18 04:00 04:00 07:05 WBC 16.5 H RBC 3.51 L Hgb 9.9 L Hct 30.1 L MCV MCHC RDW Plt Count 530 H Lymph % (Auto) 10.7 L Jay % (Auto) 9.2 H Lymph # Jay # 1.5 H Baso # Seg Neutrophils % 78.5 H Seg Neuts % (Manual) Lymphocytes % (Manual) Monocytes % (Manual) Nucleated RBC % Seg Neutrophils # 13.0 H Seg Neutrophils # Man Lymphocytes # (Manual) Monocytes # (Manual) PT INR POC ABG pH POC ABG pCO2 POC ABG pO2 Sodium Potassium Chloride Carbon Dioxide BUN 19 H Creatinine 0.6 L Glucose 185 H POC Glucose 166 H Calcium Phosphorus Magnesium AST ALT Alkaline Phosphatase Lactate Dehydrogenase C-Reactive Protein Total Protein Albumin Urine WBC (Auto) Miscellaneous Test 04/20/18 04/20/18 04/21/18 12:59 19:06 00:17 WBC RBC Hgb Hct MCV MCHC RDW Plt Count Lymph % (Auto) Jay % (Auto) Lymph # Jay # Baso # Seg Neutrophils % Seg Neuts % (Manual) Lymphocytes % (Manual) Monocytes % (Manual) Nucleated RBC % Seg Neutrophils # Seg Neutrophils # Man Lymphocytes # (Manual) Monocytes # (Manual) PT INR POC ABG pH POC ABG pCO2 POC ABG pO2 Sodium Potassium Chloride Carbon Dioxide BUN Creatinine Glucose POC Glucose 166 H 170 H 178 H Calcium Phosphorus Magnesium AST ALT Alkaline Phosphatase Lactate Dehydrogenase C-Reactive Protein Total Protein Albumin Urine WBC (Auto) Miscellaneous Test 04/21/18 04/21/18 04/21/18 06:15 06:15 06:39 WBC 15.1 H RBC 3.48 L Hgb 9.8 L Hct 30.2 L MCV MCHC RDW Plt Count 499 H Lymph % (Auto) Jay % (Auto) 8.7 H Lymph # Jay # 1.3 H Baso # 0.2 H Seg Neutrophils % 74.7 H Seg Neuts % (Manual) Lymphocytes % (Manual) Monocytes % (Manual) Nucleated RBC % Seg Neutrophils # 11.3 H Seg Neutrophils # Man Lymphocytes # (Manual) Monocytes # (Manual) PT INR POC ABG pH POC ABG pCO2 POC ABG pO2 Sodium Potassium Chloride 108.8 H Carbon Dioxide BUN 18 H Creatinine 0.6 L Glucose 157 H POC Glucose 153 H Calcium 8.0 L Phosphorus Magnesium AST ALT Alkaline Phosphatase Lactate Dehydrogenase C-Reactive Protein Total Protein Albumin Urine WBC (Auto) Miscellaneous Test 04/21/18 04/21/18 04/21/18 11:49 17:07 22:07 WBC RBC Hgb Hct MCV MCHC RDW Plt Count Lymph % (Auto) Jay % (Auto) Lymph # Jay # Baso # Seg Neutrophils % Seg Neuts % (Manual) Lymphocytes % (Manual) Monocytes % (Manual) Nucleated RBC % Seg Neutrophils # Seg Neutrophils # Man Lymphocytes # (Manual) Monocytes # (Manual) PT INR POC ABG pH POC ABG pCO2 POC ABG pO2 Sodium Potassium Chloride Carbon Dioxide BUN Creatinine Glucose POC Glucose 184 H 163 H 169 H Calcium Phosphorus Magnesium AST ALT Alkaline Phosphatase Lactate Dehydrogenase C-Reactive Protein Total Protein Albumin Urine WBC (Auto) Miscellaneous Test 04/22/18 04/22/18 04/22/18 07:00 07:00 08:52 WBC 14.0 H RBC 3.26 L Hgb 9.3 L Hct 28.6 L MCV MCHC RDW Plt Count 460 H Lymph % (Auto) 13.0 L Jay % (Auto) 10.1 H Lymph # Jay # 1.4 H Baso # Seg Neutrophils % 74.4 H Seg Neuts % (Manual) Lymphocytes % (Manual) Monocytes % (Manual) Nucleated RBC % Seg Neutrophils # 10.4 H Seg Neutrophils # Man Lymphocytes # (Manual) Monocytes # (Manual) PT INR POC ABG pH POC ABG pCO2 POC ABG pO2 Sodium Potassium Chloride Carbon Dioxide BUN 19 H Creatinine 0.6 L Glucose 159 H POC Glucose 156 H Calcium Phosphorus Magnesium AST ALT Alkaline Phosphatase Lactate Dehydrogenase C-Reactive Protein Total Protein Albumin Urine WBC (Auto) Miscellaneous Test 04/22/18 04/22/18 04/22/18 12:34 16:20 21:42 WBC RBC Hgb Hct MCV MCHC RDW Plt Count Lymph % (Auto) Jay % (Auto) Lymph # Jay # Baso # Seg Neutrophils % Seg Neuts % (Manual) Lymphocytes % (Manual) Monocytes % (Manual) Nucleated RBC % Seg Neutrophils # Seg Neutrophils # Man Lymphocytes # (Manual) Monocytes # (Manual) PT INR POC ABG pH POC ABG pCO2 POC ABG pO2 Sodium Potassium Chloride Carbon Dioxide BUN Creatinine Glucose POC Glucose 150 H 148 H 134 H Calcium Phosphorus Magnesium AST ALT Alkaline Phosphatase Lactate Dehydrogenase C-Reactive Protein Total Protein Albumin Urine WBC (Auto) Miscellaneous Test 04/23/18 04/23/18 04/23/18 05:45 05:45 08:45 WBC 12.5 H RBC 3.41 L Hgb 9.6 L Hct 29.6 L MCV MCHC RDW Plt Count 441 H Lymph % (Auto) Jay % (Auto) 11.3 H Lymph # Jay # 1.4 H Baso # Seg Neutrophils % 70.2 H Seg Neuts % (Manual) Lymphocytes % (Manual) Monocytes % (Manual) Nucleated RBC % Seg Neutrophils # 9.0 H Seg Neutrophils # Man Lymphocytes # (Manual) Monocytes # (Manual) PT INR POC ABG pH POC ABG pCO2 POC ABG pO2 Sodium Potassium Chloride Carbon Dioxide BUN 19 H Creatinine 0.6 L Glucose 119 H POC Glucose 154 H Calcium Phosphorus Magnesium 2.40 H AST ALT Alkaline Phosphatase Lactate Dehydrogenase C-Reactive Protein Total Protein Albumin Urine WBC (Auto) Miscellaneous Test 04/23/18 04/23/18 04/24/18 11:45 22:09 07:26 WBC RBC Hgb Hct MCV MCHC RDW Plt Count Lymph % (Auto) Jay % (Auto) Lymph # Jay # Baso # Seg Neutrophils % Seg Neuts % (Manual) Lymphocytes % (Manual) Monocytes % (Manual) Nucleated RBC % Seg Neutrophils # Seg Neutrophils # Man Lymphocytes # (Manual) Monocytes # (Manual) PT INR POC ABG pH POC ABG pCO2 POC ABG pO2 Sodium Potassium Chloride Carbon Dioxide BUN Creatinine Glucose POC Glucose 132 H 113 H 164 H Calcium Phosphorus Magnesium AST ALT Alkaline Phosphatase Lactate Dehydrogenase C-Reactive Protein Total Protein Albumin Urine WBC (Auto) Miscellaneous Test 04/24/18 04/24/18 04/24/18 08:30 08:30 11:27 WBC 14.4 H RBC 3.30 L Hgb 9.6 L Hct 28.4 L MCV MCHC RDW Plt Count Lymph % (Auto) 12.8 L Jay % (Auto) 9.1 H Lymph # Jay # 1.3 H Baso # 0.2 H Seg Neutrophils % 76.4 H Seg Neuts % (Manual) Lymphocytes % (Manual) Monocytes % (Manual) Nucleated RBC % Seg Neutrophils # 11.0 H Seg Neutrophils # Man Lymphocytes # (Manual) Monocytes # (Manual) PT INR POC ABG pH POC ABG pCO2 POC ABG pO2 Sodium Potassium Chloride Carbon Dioxide BUN 18 H Creatinine Glucose 155 H POC Glucose 133 H Calcium Phosphorus Magnesium AST ALT Alkaline Phosphatase Lactate Dehydrogenase C-Reactive Protein Total Protein Albumin Urine WBC (Auto) Miscellaneous Test 04/24/18 04/24/18 04/25/18 16:32 22:17 06:16 WBC RBC Hgb Hct MCV MCHC RDW Plt Count Lymph % (Auto) Jay % (Auto) Lymph # Jay # Baso # Seg Neutrophils % Seg Neuts % (Manual) Lymphocytes % (Manual) Monocytes % (Manual) Nucleated RBC % Seg Neutrophils # Seg Neutrophils # Man Lymphocytes # (Manual) Monocytes # (Manual) PT INR POC ABG pH POC ABG pCO2 POC ABG pO2 Sodium Potassium Chloride Carbon Dioxide BUN Creatinine Glucose POC Glucose 132 H 124 H 133 H Calcium Phosphorus Magnesium AST ALT Alkaline Phosphatase Lactate Dehydrogenase C-Reactive Protein Total Protein Albumin Urine WBC (Auto) Miscellaneous Test 04/25/18 04/25/18 04/25/18 07:39 11:10 11:31 WBC 11.3 H RBC 3.41 L Hgb 9.8 L Hct 29.5 L MCV MCHC RDW Plt Count Lymph % (Auto) 12.3 L Jay % (Auto) 9.0 H Lymph # Jay # 1.0 H Baso # Seg Neutrophils % 77.3 H Seg Neuts % (Manual) Lymphocytes % (Manual) Monocytes % (Manual) Nucleated RBC % Seg Neutrophils # 8.7 H Seg Neutrophils # Man Lymphocytes # (Manual) Monocytes # (Manual) PT INR POC ABG pH POC ABG pCO2 POC ABG pO2 Sodium Potassium Chloride Carbon Dioxide BUN Creatinine Glucose POC Glucose 141 H 145 H Calcium Phosphorus Magnesium AST ALT Alkaline Phosphatase Lactate Dehydrogenase C-Reactive Protein Total Protein Albumin Urine WBC (Auto) Miscellaneous Test 04/25/18 04/25/18 04/26/18 11:31 16:14 00:45 WBC RBC Hgb Hct MCV MCHC RDW Plt Count Lymph % (Auto) Jay % (Auto) Lymph # Jay # Baso # Seg Neutrophils % Seg Neuts % (Manual) Lymphocytes % (Manual) Monocytes % (Manual) Nucleated RBC % Seg Neutrophils # Seg Neutrophils # Man Lymphocytes # (Manual) Monocytes # (Manual) PT INR POC ABG pH POC ABG pCO2 POC ABG pO2 Sodium Potassium Chloride Carbon Dioxide BUN Creatinine Glucose 153 H POC Glucose 163 H 141 H Calcium Phosphorus Magnesium AST ALT Alkaline Phosphatase Lactate Dehydrogenase C-Reactive Protein Total Protein Albumin Urine WBC (Auto) Miscellaneous Test 04/26/18 04/26/18 04/26/18 06:10 06:10 06:37 WBC 14.5 H RBC 3.60 L Hgb Hct MCV MCHC RDW Plt Count Lymph % (Auto) Jay % (Auto) 9.6 H Lymph # Jay # 1.4 H Baso # 0.2 H Seg Neutrophils % 75.0 H Seg Neuts % (Manual) Lymphocytes % (Manual) Monocytes % (Manual) Nucleated RBC % Seg Neutrophils # 10.9 H Seg Neutrophils # Man Lymphocytes # (Manual) Monocytes # (Manual) PT INR POC ABG pH POC ABG pCO2 POC ABG pO2 Sodium Potassium Chloride Carbon Dioxide BUN Creatinine Glucose 138 H POC Glucose 131 H Calcium Phosphorus Magnesium AST ALT Alkaline Phosphatase Lactate Dehydrogenase C-Reactive Protein Total Protein Albumin Urine WBC (Auto) Miscellaneous Test 04/26/18 04/26/18 04/26/18 11:34 16:10 16:39 WBC RBC Hgb Hct MCV MCHC RDW Plt Count Lymph % (Auto) Jay % (Auto) Lymph # Jay # Baso # Seg Neutrophils % Seg Neuts % (Manual) Lymphocytes % (Manual) Monocytes % (Manual) Nucleated RBC % Seg Neutrophils # Seg Neutrophils # Man Lymphocytes # (Manual) Monocytes # (Manual) PT 17.2 H INR 1.33 H POC ABG pH POC ABG pCO2 POC ABG pO2 Sodium Potassium Chloride Carbon Dioxide BUN Creatinine Glucose POC Glucose 129 H Calcium Phosphorus Magnesium AST ALT Alkaline Phosphatase Lactate Dehydrogenase 266 H C-Reactive Protein Total Protein Albumin Urine WBC (Auto) Miscellaneous Test 04/26/18 04/26/18 04/27/18 16:59 22:39 05:50 WBC RBC Hgb Hct MCV MCHC RDW Plt Count Lymph % (Auto) Jay % (Auto) Lymph # Jay # Baso # Seg Neutrophils % Seg Neuts % (Manual) Lymphocytes % (Manual) Monocytes % (Manual) Nucleated RBC % Seg Neutrophils # Seg Neutrophils # Man Lymphocytes # (Manual) Monocytes # (Manual) PT INR POC ABG pH POC ABG pCO2 POC ABG pO2 Sodium Potassium Chloride 97.4 L Carbon Dioxide BUN Creatinine 0.6 L Glucose 135 H POC Glucose 145 H 187 H Calcium 8.2 L Phosphorus Magnesium AST 97 H ALT 222 H Alkaline Phosphatase 191 H Lactate Dehydrogenase C-Reactive Protein Total Protein Albumin 2.5 L Urine WBC (Auto) Miscellaneous Test 04/27/18 04/27/18 04/27/18 11:52 16:35 22:23 WBC RBC Hgb Hct MCV MCHC RDW Plt Count Lymph % (Auto) Jay % (Auto) Lymph # Jay # Baso # Seg Neutrophils % Seg Neuts % (Manual) Lymphocytes % (Manual) Monocytes % (Manual) Nucleated RBC % Seg Neutrophils # Seg Neutrophils # Man Lymphocytes # (Manual) Monocytes # (Manual) PT INR POC ABG pH POC ABG pCO2 POC ABG pO2 Sodium Potassium Chloride Carbon Dioxide BUN Creatinine Glucose POC Glucose 162 H 136 H 188 H Calcium Phosphorus Magnesium AST ALT Alkaline Phosphatase Lactate Dehydrogenase C-Reactive Protein Total Protein Albumin Urine WBC (Auto) Miscellaneous Test 04/28/18 04/28/18 04/28/18 07:06 09:15 12:11 WBC RBC Hgb Hct MCV MCHC RDW Plt Count Lymph % (Auto) Jay % (Auto) Lymph # Jay # Baso # Seg Neutrophils % Seg Neuts % (Manual) Lymphocytes % (Manual) Monocytes % (Manual) Nucleated RBC % Seg Neutrophils # Seg Neutrophils # Man Lymphocytes # (Manual) Monocytes # (Manual) PT INR POC ABG pH POC ABG pCO2 POC ABG pO2 Sodium Potassium Chloride Carbon Dioxide BUN Creatinine 0.5 L Glucose 149 H POC Glucose 160 H 107 H Calcium 8.0 L Phosphorus Magnesium AST ALT Alkaline Phosphatase Lactate Dehydrogenase C-Reactive Protein Total Protein Albumin Urine WBC (Auto) Miscellaneous Test 04/28/18 04/29/18 04/29/18 21:57 05:25 05:59 WBC RBC Hgb Hct MCV MCHC RDW Plt Count Lymph % (Auto) Jay % (Auto) Lymph # Jay # Baso # Seg Neutrophils % Seg Neuts % (Manual) Lymphocytes % (Manual) Monocytes % (Manual) Nucleated RBC % Seg Neutrophils # Seg Neutrophils # Man Lymphocytes # (Manual) Monocytes # (Manual) PT INR POC ABG pH POC ABG pCO2 POC ABG pO2 Sodium Potassium Chloride Carbon Dioxide BUN Creatinine 0.5 L Glucose 122 H POC Glucose 134 H 130 H Calcium 8.3 L Phosphorus Magnesium AST ALT Alkaline Phosphatase Lactate Dehydrogenase C-Reactive Protein Total Protein Albumin Urine WBC (Auto) Miscellaneous Test 04/29/18 04/29/18 04/29/18 12:14 17:45 22:47 WBC RBC Hgb Hct MCV MCHC RDW Plt Count Lymph % (Auto) Jay % (Auto) Lymph # Jay # Baso # Seg Neutrophils % Seg Neuts % (Manual) Lymphocytes % (Manual) Monocytes % (Manual) Nucleated RBC % Seg Neutrophils # Seg Neutrophils # Man Lymphocytes # (Manual) Monocytes # (Manual) PT INR POC ABG pH POC ABG pCO2 POC ABG pO2 Sodium Potassium Chloride Carbon Dioxide BUN Creatinine Glucose POC Glucose 171 H 142 H 317 H Calcium Phosphorus Magnesium AST ALT Alkaline Phosphatase Lactate Dehydrogenase C-Reactive Protein Total Protein Albumin Urine WBC (Auto) Miscellaneous Test 04/30/18 04/30/18 04/30/18 06:18 08:26 11:20 WBC RBC 3.16 L Hgb 9.1 L Hct 27.0 L MCV MCHC RDW Plt Count Lymph % (Auto) Jay % (Auto) 11.8 H Lymph # Jay # Baso # Seg Neutrophils % Seg Neuts % (Manual) Lymphocytes % (Manual) Monocytes % (Manual) Nucleated RBC % Seg Neutrophils # Seg Neutrophils # Man Lymphocytes # (Manual) Monocytes # (Manual) PT INR POC ABG pH POC ABG pCO2 POC ABG pO2 Sodium 135 L Potassium Chloride Carbon Dioxide 21 L BUN Creatinine 0.5 L Glucose 155 H POC Glucose 166 H Calcium Phosphorus Magnesium AST ALT Alkaline Phosphatase Lactate Dehydrogenase C-Reactive Protein Total Protein Albumin Urine WBC (Auto) Miscellaneous Test 04/30/18 04/30/18 05/01/18 12:24 18:05 02:52 WBC RBC Hgb Hct MCV MCHC RDW Plt Count Lymph % (Auto) Jay % (Auto) Lymph # Jay # Baso # Seg Neutrophils % Seg Neuts % (Manual) Lymphocytes % (Manual) Monocytes % (Manual) Nucleated RBC % Seg Neutrophils # Seg Neutrophils # Man Lymphocytes # (Manual) Monocytes # (Manual) PT INR POC ABG pH POC ABG pCO2 POC ABG pO2 Sodium Potassium Chloride Carbon Dioxide BUN Creatinine Glucose POC Glucose 176 H 147 H 132 H Calcium Phosphorus Magnesium AST ALT Alkaline Phosphatase Lactate Dehydrogenase C-Reactive Protein Total Protein Albumin Urine WBC (Auto) Miscellaneous Test 05/01/18 05/02/18 05/02/18 04:00 05:50 11:51 WBC RBC Hgb Hct MCV MCHC RDW Plt Count Lymph % (Auto) Jay % (Auto) Lymph # Jay # Baso # Seg Neutrophils % Seg Neuts % (Manual) Lymphocytes % (Manual) Monocytes % (Manual) Nucleated RBC % Seg Neutrophils # Seg Neutrophils # Man Lymphocytes # (Manual) Monocytes # (Manual) PT INR POC ABG pH POC ABG pCO2 POC ABG pO2 Sodium 134 L Potassium Chloride Carbon Dioxide BUN Creatinine 0.6 L 0.6 L Glucose 101 H 122 H POC Glucose 215 H Calcium Phosphorus Magnesium AST ALT Alkaline Phosphatase Lactate Dehydrogenase C-Reactive Protein Total Protein Albumin Urine WBC (Auto) Miscellaneous Test
--- NOTE | 2018-05-02 12:49 | Progress Note ---
Assessment and Plan Assessment and plan: Hospitalist Consulted for Medical management of hypertension on 04/17/18, Patient admitted on 04/07/[address] Wynn Ms. Machado is a 58 y.o. woman with a history of obesity s/p lap sleeve gastrectomy with hiatal hernia repair and partial fundoplication 03/30/18, presents to ER with abdominal pains on 04/07/18. She was found to have perforation and under the following: DATE OF PROCEDURE 04/07/18 PREOPERATIVE DIAGNOSES: Pneumoperitoneum POSTOPERATIVE DIAGNOSES: 1. Gastric perforation SURGEON: Dr. Estes FERRYBOAT DECKHAND: Dony Perez DO [employer]PLICATOR PROCEDURE: 1. Diagnostic laparoscopy 2. Repair of gastric perforation 3. Abdominal washout 4. intraoperative EGD /Hypertension. Monitor BP, stable, highest bp documented since admission 165/85. On Clonidine patch and iv prn Labetalol, Also Hydraazine iv prn. /Sepsis due to intraabdominal infection and PNA. - treated with cefepime and flagyl along with zosyn - total 17 days of abx - S/p vanco IV x 10 days until 04/19 for MSSA - monitored fever and leukocytosis off abx - ID Physician managing, restarted abx today again as cont to spike fever /Gastric perforation s/p exploratory lap, repair of perforation on 04/07/18. Surg is attending, managing, on TPN /Pneumoperitoneum due to gastric perforation, s/p repair of perforation on 04/07/18- per surgery /Acute respiratory failure with Pleural Effusion s/p thoracentesis 04/26/18 On supplemental Oxygen by [place] Pulmonology is managing /Bilateral pneumonia vs atelectasis, completed abx /Pleural Effusion s/p thoracentesis Pulmonology is followi /Hypokalemia, resolved /Obstructive seep apnea, CPAP at bedtime Full code status Disposition: SNF when cleared by surgery, ID and pulmonology History Interval history: Patient was seen and examined. Follow-up on current diagnosis of hypertension. Overnight uneventful. Patient denies any chest pain, shortness breath, nausea/ vomiting or severe headaches. Imaging, nursing note, chart, labs and old chart reviewed. Discussed with patient. Hospitalist Physical - Physical exam Narrative exam: GEN: WDWN, bmi 34, NAD, Awake, Alert, Orientated x3 HEENT: NCAT, EOMI, PERRL, OP Clear NECK: supple, no adenopathy, no thyromegaly, no JVD CVS/HEART: RRR, normal S1S2, pulses present bilaterally CHEST/LUNGS: diminished bs bilateral, Symmetrical chest expansion, reduced air entry bilaterally GI/Abdomen: soft,drains in place good bowel sounds, no guarding or rebound /Bladder: no suprapubic tenderness, no CVA or paraspinal tenderness EXT/Skin: no c/c/e, no obvious rash MSK: FROM x 4 Neuro: CN 2-12 grossly intact, no new focal deficits Psych: calm - Constitutional Vitals: Temp Pulse Resp BP Pulse Ox 98.3 F 92 H 20 133/73 99 05/02/18 12:00 05/02/18 12:00 05/02/18 12:00 05/02/18 12:00 05/02/18 12:00 General appearance: Present: no acute distress, obese Results - Labs CBC & Chem 7: 04/30/18 11:20 05/02/18 05:50 Labs: Laboratory Last Values WBC 6.4 K/mm3 (4.5-11.0) 04/30/18 11:20 RBC 3.16 M/mm3 (3.65-5.03) L 04/30/18 11:20 Hgb 9.1 gm/dl (10.1-14.3) L 04/30/18 11:20 Hct 27.0 % (30.3-42.9) L 04/30/18 11:20 MCV 86 fl (79-97) 04/30/18 11:20 MCH 29 pg (28-32) 04/30/18 11:20 MCHC 34 % (30-34) 04/30/18 11:20 RDW 14.3 % (13.2-15.2) 04/30/18 11:20 Plt Count 236 K/mm3 (140-440) 04/30/18 11:20 Lymph % (Auto) 22.2 % (13.4-35.0) 04/30/18 11:20 [place] % (Auto) 11.8 % (0.0-7.3) H 04/30/18 11:20 Eos % (Auto) 2.1 % (0.0-4.3) 04/30/18 11:20 Baso % (Auto) 0.5 % (0.0-1.8) 04/30/18 11:20 Lymph # 1.4 K/mm3 (1.2-5.4) 04/30/18 11:20 [place] # 0.8 K/mm3 (0.0-0.8) 04/30/18 11:20 Eos # 0.1 K/mm3 (0.0-0.4) 04/30/18 11:20 Baso # 0.0 K/mm3 (0.0-0.1) 04/30/18 11:20 Add Manual Diff Complete 04/16/18 06:12 Total Counted 100 04/16/18 06:12 Seg Neutrophils % 63.4 % (40.0-70.0) 04/30/18 11:20 Seg Neuts % (Manual) 88.0 % (40.0-70.0) H 04/16/18 06:12 Band Neutrophils % 1.0 % 04/16/18 06:12 Lymphocytes % (Manual) 5.0 % (13.4-35.0) L 04/16/18 06:12 Reactive Lymphs % (Man) 0 % 04/16/18 06:12 Monocytes % (Manual) 2.0 % (0.0-7.3) 04/16/18 06:12 Eosinophils % (Manual) 0 % (0.0-4.3) 04/16/18 06:12 Basophils % (Manual) 0 % (0.0-1.8) 04/16/18 06:12 Metamyelocytes % 4.0 % 04/16/18 06:12 Myelocytes % 0 % 04/16/18 06:12 Promyelocytes % 0 % 04/16/18 06:12 Blast Cells % 0 % 04/16/18 06:12 Nucleated RBC % Not Reportable 04/16/18 06:12 Seg Neutrophils # 4.1 K/mm3 (1.8-7.7) 04/30/18 11:20 Seg Neutrophils # Man 18.2 K/mm3 (1.8-7.7) H 04/16/18 06:12 Band Neutrophils # 0.2 K/mm3 04/16/18 06:12 Lymphocytes # (Manual) 1.0 K/mm3 (1.2-5.4) L 04/16/18 06:12 Abs React Lymphs (Man) 0.0 K/mm3 04/16/18 06:12 Monocytes # (Manual) 0.4 K/mm3 (0.0-0.8) 04/16/18 06:12 Eosinophils # (Manual) 0.0 K/mm3 (0.0-0.4) 04/16/18 06:12 Basophils # (Manual) 0.0 K/mm3 (0.0-0.1) 04/16/18 06:12 Metamyelocytes # 0.8 K/mm3 04/16/18 06:12 Myelocytes # 0.0 K/mm3 04/16/18 06:12 Promyelocytes # 0.0 K/mm3 04/16/18 06:12 Blast Cells # 0.0 K/mm3 04/16/18 06:12 WBC Morphology Not Reportable 04/16/18 06:12 Hypersegmented Neuts Not Reportable 04/16/18 06:12 Hyposegmented Neuts Not Reportable 04/16/18 06:12 Hypogranular Neuts Not Reportable 04/16/18 06:12 Smudge Cells Not Reportable 04/16/18 06:12 Toxic Granulation Not Reportable 04/16/18 06:12 Toxic Vacuolation Not Reportable 04/16/18 06:12 Dohle Bodies Not Reportable 04/16/18 06:12 Pelger-Huet Anomaly Not Reportable 04/16/18 06:12 Narendra Rods Not Reportable 04/16/18 06:12 Platelet Estimate Cons 04/16/18 06:12 Clumped Platelets Not Reportable 04/16/18 06:12 Plt Clumps, EDTA Not Reportable 04/16/18 06:12 Large Platelets Not Reportable 04/16/18 06:12 Giant Platelets Not Reportable 04/16/18 06:12 Platelet Satelliting Not Reportable 04/16/18 06:12 Plt Morphology Comment Not Reportable 04/16/18 06:12 RBC Morphology Not Reportable 04/16/18 06:12 Dimorphic RBCs Not Reportable 04/16/18 06:12 Polychromasia Few 04/16/18 06:12 Hypochromasia Not Reportable 04/16/18 06:12 Poikilocytosis Not Reportable 04/16/18 06:12 Anisocytosis 1+ 04/16/18 06:12 Microcytosis Not Reportable 04/16/18 06:12 Macrocytosis Not Reportable 04/16/18 06:12 Spherocytes Not Reportable 04/16/18 06:12 Pappenheimer Bodies Not Reportable 04/16/18 06:12 Sickle Cells Not Reportable 04/16/18 06:12 Target Cells Not Reportable 04/16/18 06:12 Tear Drop Cells Not Reportable 04/16/18 06:12 Ovalocytes Not Reportable 04/16/18 06:12 Helmet Cells Not Reportable 04/16/18 06:12 [place]iser Bodies Not Reportable 04/16/18 06:12 [place] Rings Not Reportable 04/16/18 06:12 [place] Cells Not Reportable 04/16/18 06:12 Bite Cells Not Reportable 04/16/18 06:12 Crenated Cell Not Reportable 04/16/18 06:12 Elliptocytes Not Reportable 04/16/18 06:12 Acanthocytes (Spur) Not Reportable 04/16/18 06:12 Rouleaux Not Reportable 04/16/18 06:12 Hemoglobin C Crystals Not Reportable 04/16/18 06:12 Schistocytes Not Reportable 04/16/18 06:12 Malaria parasites Not Reportable 04/16/18 06:12 Giorgio Bodies Not Reportable 04/16/18 06:12 Hem Pathologist Commnt No 04/16/18 06:12 PT 17.2 Sec. (12.2-14.9) H 04/26/18 16:39 INR 1.33 (0.87-1.13) H 04/26/18 16:39 APTT 29.0 Sec. (24.2-36.6) 04/07/18 16:28 POC ABG pH 7.519 (7.35-7.45) H 04/10/18 12:59 POC ABG pCO2 29.3 (35-45) L 04/10/18 12:59 POC ABG pO2 63 (80-105) L 04/10/18 12:59 POC ABG HCO3 23.9 04/10/18 12:59 POC ABG Total CO2 25 04/10/18 12:59 POC ABG O2 Sat 94 04/10/18 12:59 POC ABG Base Excess 1 04/10/18 12:59 VBG pH 7.413 (7.320-7.420) 04/07/18 09:41 FiO2 28 % 04/10/18 12:59 Sodium 138 mmol/L (137-145) 05/02/18 05:50 Potassium 3.9 mmol/L (3.6-5.0) 05/02/18 05:50 Chloride 100.3 mmol/L (98-107) 05/02/18 05:50 Carbon Dioxide 25 mmol/L (22-30) 05/02/18 05:50 Anion Gap 17 mmol/L 05/02/18 05:50 BUN 12 mg/dL (7-17) 05/02/18 05:50 Creatinine 0.6 mg/dL (0.7-1.2) L 05/02/18 05:50 Estimated GFR > 60 ml/min 05/02/18 05:50 BUN/Creatinine Ratio 20 % 05/02/18 05:50 Glucose 122 mg/dL (65-100) H 05/02/18 05:50 POC Glucose 215 (70-105) H 05/02/18 11:51 Lactic Acid 0.80 mmol/L (0.7-2.0) 04/08/18 13:33 Calcium 8.6 mg/dL (8.4-10.2) 05/02/18 05:50 Phosphorus 3.60 mg/dL (2.5-4.5) 05/02/18 05:50 Magnesium 1.80 mg/dL (1.7-2.3) 05/02/18 05:50 Total Bilirubin 0.40 mg/dL (0.1-1.2) 04/27/18 05:50 AST 97 units/L (5-40) H 04/27/18 05:50 ALT 222 units/L (7-56) H 04/27/18 05:50 Alkaline Phosphatase 191 units/L (35-129) H 04/27/18 05:50 Lactate Dehydrogenase 266 units/L (91-180) H 04/26/18 16:10 Total Creatine Kinase 37 units/L (30-135) 04/19/18 12:55 CK-MB (CK-2) 1.0 ng/mL (0.0-4.0) 04/19/18 12:55 CK-MB (CK-2) Rel Index 2.7 (0-4) 04/19/18 12:55 Troponin T < 0.010 ng/mL (0.00-0.029) 04/19/18 12:55 C-Reactive Protein 29.60 mg/dL (0.00-1.30) H 04/13/18 04:20 Total Protein 7.5 g/dL (6.3-8.2) 04/27/18 05:50 Albumin 2.5 g/dL (3.9-5) L 04/27/18 05:50 Albumin/Globulin Ratio 0.5 % 04/27/18 05:50 Triglycerides 114 mg/dL (2-149) 04/16/18 08:52 Urine Color Yellow (Yellow) 04/24/18 15:20 Urine Turbidity Clear (Clear) 04/24/18 15:20 Urine pH 6.0 (5.0-7.0) 04/24/18 15:20 Ur Specific [place] 1.023 (1.003-1.030) 04/24/18 15:20 Urine Protein 30 mg/dl mg/dL (Negative) 04/24/18 15:20 Urine Glucose (UA) Neg mg/dL (Negative) 04/24/18 15:20 Urine Ketones Neg mg/dL (Negative) 04/24/18 15:20 Urine Blood Neg (Negative) 04/24/18 15:20 Urine Nitrite Neg (Negative) 04/24/18 15:20 Urine Bilirubin Neg (Negative) 04/24/18 15:20 Urine Urobilinogen < 2.0 mg/dL (<2.0) 04/24/18 15:20 Ur Leukocyte Esterase Neg (Negative) 04/24/18 15:20 Urine WBC (Auto) 3.0 /HPF (0.0-6.0) 04/24/18 15:20 Urine RBC (Auto) 4.0 /HPF (0.0-6.0) 04/24/18 15:20 U Epithel Cells (Auto) 4.0 /HPF (0-13.0) 04/24/18 15:20 Urine Mucus Few /HPF 04/24/18 15:20 Vancomycin Trough 13.2 ug/mL (5.0-20.0) 04/14/18 15:51 Miscellaneous Test Flexitest 1 H 04/13/18 13:37
[2018-05-02] MEDS: ATIVAN IV PRN (16:18)
--- NOTE | 2018-05-02 17:27 | Progress Note ---
Assessment and Plan Patient doing well. Minimal drainage from drains. Will start a trial of clear liquids and assess drains. Will get gastrographin ugi series in the morning. If no leak, will begin removing drains. Subjective Patient Reports: Positive: no new complaints, feels better (Patient has a desire to have green tea. She is in good spirits. ) Objective Vital Signs - 12hr 05/02/18 05/02/18 05/02/18 07:12 07:50 08:00 Temperature 98.6 F Pulse Rate 92 H Pulse Rate [ Anterior Bilateral] Respiratory 18 4 L Rate Respiratory Rate [Abdomen] Respiratory Rate [Anterior Bilateral] Blood Pressure 134/69 Blood Pressure [Left] O2 Sat by Pulse 98 98 Oximetry 05/02/18 05/02/18 05/02/18 08:18 08:42 08:48 Temperature Pulse Rate Pulse Rate [ Anterior Bilateral] Respiratory 20 16 Rate Respiratory 16 Rate [Abdomen] Respiratory Rate [Anterior Bilateral] Blood Pressure Blood Pressure [Left] O2 Sat by Pulse Oximetry 05/02/18 05/02/18 05/02/18 09:00 09:08 09:11 Temperature Pulse Rate 92 H Pulse Rate [ 90 Anterior Bilateral] Respiratory Rate Respiratory Rate [Abdomen] Respiratory 16 Rate [Anterior Bilateral] Blood Pressure 134/69 Blood Pressure [Left] O2 Sat by Pulse 98 Oximetry 05/02/18 05/02/18 05/02/18 09:17 11:59 12:00 Temperature 98.3 F Pulse Rate 92 H Pulse Rate [ 91 H Anterior Bilateral] Respiratory 16 20 Rate Respiratory Rate [Abdomen] Respiratory 16 Rate [Anterior Bilateral] Blood Pressure Blood Pressure 133/73 [Left] O2 Sat by Pulse 99 Oximetry 05/02/18 05/02/18 05/02/18 12:29 16:00 16:19 Temperature 98 F Pulse Rate 99 H Pulse Rate [ Anterior Bilateral] Respiratory 16 20 16 Rate Respiratory Rate [Abdomen] Respiratory Rate [Anterior Bilateral] Blood Pressure Blood Pressure 165/82 [Left] O2 Sat by Pulse 97 Oximetry - Abdomen soft (Non-tender. Drains putting out minimal amounts) - Labs 04/30/18 11:20 05/02/18 05:50 Diabetes panel 05/02/18 Range/Units 05:50 Sodium 138 (137-145) mmol/L Potassium 3.9 (3.6-5.0) mmol/L Chloride 100.3 (98-107) mmol/L Carbon Dioxide 25 (22-30) mmol/L BUN 12 (7-17) mg/dL Creatinine 0.6 L (0.7-1.2) mg/dL Glucose 122 H (65-100) mg/dL Calcium 8.6 (8.4-10.2) mg/dL Calcium panel 05/02/18 Range/Units 05:50 Calcium 8.6 (8.4-10.2) mg/dL Phosphorus 3.60 (2.5-4.5) mg/dL Pituitary panel 05/02/18 Range/Units 05:50 Sodium 138 (137-145) mmol/L Potassium 3.9 (3.6-5.0) mmol/L Chloride 100.3 (98-107) mmol/L Carbon Dioxide 25 (22-30) mmol/L BUN 12 (7-17) mg/dL Creatinine 0.6 L (0.7-1.2) mg/dL Glucose 122 H (65-100) mg/dL Calcium 8.6 (8.4-10.2) mg/dL Adrenal panel 05/02/18 Range/Units 05:50 Sodium 138 (137-145) mmol/L Potassium 3.9 (3.6-5.0) mmol/L Chloride 100.3 (98-107) mmol/L Carbon Dioxide 25 (22-30) mmol/L BUN 12 (7-17) mg/dL Creatinine 0.6 L (0.7-1.2) mg/dL Glucose 122 H (65-100) mg/dL Calcium 8.6 (8.4-10.2) mg/dL
[2018-05-02] MEDS ORDERED: TPN ADULT 1,800 ML IV SCH (20:00)
[2018-05-03] MEDS: ZOFRAN IV PRN ×4 (00:17→23:17)
[2018-05-03] MEDS: DILAUDID IV PRN ×6 (00:17→23:16)
[2018-05-03] MEDS: ATIVAN IV PRN ×3 (00:47→22:23)
[2018-05-03] MEDS: NORMODYNE IV SCH ×8 (02:07→22:22)
[2018-05-03] MEDS: ZOSYN/NS 4.5GM/100ML 4.5 GM/100 ML VIAL IV SCH ×3 (02:07→17:09)
[2018-05-03 08:57] LABS: BUN/Creatinine Ratio 20; Blood Urea Nitrogen 12 mg/dL (7-17); Calcium 8.6 mg/dL (8.4-10.2); Hemolysis Index 0
[2018-05-03] MEDS: PROTONIX IV SCH ×2 (09:01→21:56)
[2018-05-03] MEDS: BROVANA NEBU IH SCH ×2 (10:28→21:18)
[2018-05-03] MEDS: PULMICORT IH SCH ×2 (10:29→21:18)
--- NOTE | 2018-05-03 10:38 | Progress Note ---
Assessment and Plan Sepsis syndrome with altered mental status in the setting of the systemic inflammatory response syndrome. Mild metabolic acidosis Perforated abdominal viscus status post exploratory laparotomy and repair. Obesity. Atypical Chest Pain Obstructive sleep apnea according to the history. Acute encephalopathy, presumably toxic metabolic. History of hypertension. Arthritis. Gastroesophageal reflux disease. Morbid obesity. Acute hypoxemic respiratory failure (will follow clinically; doubt further intervention needed for left pleural process; may have been related to intra-abdominal surgical manipulation in past also) - continue supplemental oxygen to keep sats > 90% - prn analgesia while watching for respiratory depression - anti-infectives per ID recs (following off AB's) - continue PICC line for TPN - continue PT/OT - continue GI & VTE prophylaxis - continue bronchodilators for COPD (brovana and changed duonebs to prn) - continue BIPAP scheduled qhs for [place] with prn daytime use - wound care per WCT / RN and surgeon - continue other care per attending / other consultants - SNF tentatively once cleared by surgery team ...... re-evaluate in am & prn ...35' Subjective Date of service: 05/03/18 Principal diagnosis: Sepsis Syndrome; Acute Hypoxemic Resp Failure; Acute Encephalopathy Interval history: Patient is seen today for: Sepsis Syndrome; Acute Hypoxemic Resp Failure; Acute Encephalopathy Seen and examined at bedside; 24hour events reviewed; nursing and respiratory care staff consulted; no adverse overnight events reported to me; resting in bed ; remains on supplemental oxygen; No N/V/F/C; denies acute chest pains or increased SOB; states that she has never had any intrathoracic procedures to explain loculated left pleural rind tissue/effusion Objective Vital Signs - 12hr 05/03/18 05/03/18 05/03/18 00:36 02:07 05:17 Temperature 99.0 F Pulse Rate 105 H 105 H 113 H Respiratory 18 Rate Blood Pressure 144/71 Blood Pressure 144/71 [Left] O2 Sat by Pulse Oximetry 05/03/18 05/03/18 05/03/18 07:03 07:04 07:10 Temperature 98.6 F Pulse Rate 97 H 98 H 96 H Respiratory 18 Rate Blood Pressure 129/72 129/72 Blood Pressure [Left] O2 Sat by Pulse 98 98 Oximetry Constitutional: no acute distress, alert Eyes: non-icteric ENT: oropharynx moist, other (no thyromegaly) Neck: supple, no lymphadenopathy, no JVD, other (large neck circumference) Effort: normal Ascultation: Bilateral: diminished breath sounds, rhonchi (scant in bases) Percussion: Bilateral: not dull Cardiovascular: regular rate and rhythm, other (No R/M) Gastrointestinal: normoactive bowel sounds, soft, non-tender, non-distended, other (no palpable HSM, KRISTI drains) Integumentary: normal Extremities: no cyanosis, no edema, pulses normal, no ischemia or petechiae Neurologic: normal mental status, non-focal exam, pupils equal and round, CN II- XII normal, motor strength normal and Psychiatric: mood appropriate, affect normal CBC and BMP: 05/03/18 17:08 05/05/18 09:46 ABG, PT/INR, D-dimer: ABG POC ABG pH 7.519 (7.35-7.45) H 04/10/18 12:59 POC ABG pCO2 29.3 (35-45) L 04/10/18 12:59 POC ABG pO2 63 (80-105) L 04/10/18 12:59 POC ABG HCO3 23.9 04/10/18 12:59 POC ABG Total CO2 25 04/10/18 12:59 POC ABG O2 Sat 94 04/10/18 12:59 PT/INR, D-dimer PT 17.2 Sec. (12.2-14.9) H 04/26/18 16:39 INR 1.33 (0.87-1.13) H 04/26/18 16:39 Abnormal lab findings: Abnormal Labs 04/07/18 04/07/18 04/07/18 00:05 00:05 09:41 WBC 18.4 H 21.3 H RBC Hgb Hct MCV MCHC RDW Plt Count Lymph % (Auto) 4.5 L [place] % (Auto) Lymph # 0.8 L [place] # 1.2 H Baso # Seg Neutrophils % 88.9 H Seg Neuts % (Manual) 85.0 H Lymphocytes % (Manual) 4.0 L Monocytes % (Manual) Nucleated RBC % Seg Neutrophils # 16.4 H Seg Neutrophils # Man 18.1 H Lymphocytes # (Manual) 0.9 L Monocytes # (Manual) 1.1 H PT INR POC ABG pH POC ABG pCO2 POC ABG pO2 Sodium Potassium Chloride Carbon Dioxide BUN Creatinine Glucose 123 H POC Glucose Calcium 8.0 L Phosphorus Magnesium 1.60 L AST 59 H ALT Alkaline Phosphatase Lactate Dehydrogenase C-Reactive Protein Total Protein Albumin 2.9 L Urine WBC (Auto) Miscellaneous Test 04/07/18 04/08/18 04/08/18 09:41 00:20 10:25 WBC 19.2 H RBC Hgb Hct MCV MCHC RDW Plt Count Lymph % (Auto) 5.4 L [place] % (Auto) Lymph # 1.0 L [place] # 1.1 H Baso # Seg Neutrophils % 88.9 H Seg Neuts % (Manual) Lymphocytes % (Manual) Monocytes % (Manual) Nucleated RBC % Seg Neutrophils # 17.1 H Seg Neutrophils # Man Lymphocytes # (Manual) Monocytes # (Manual) PT INR POC ABG pH POC ABG pCO2 POC ABG pO2 Sodium Potassium 3.3 L Chloride 95.1 L Carbon Dioxide 21 L BUN Creatinine Glucose 113 H POC Glucose Calcium Phosphorus Magnesium AST ALT Alkaline Phosphatase Lactate Dehydrogenase C-Reactive Protein Total Protein Albumin 3.6 L Urine WBC (Auto) 45.0 H Miscellaneous Test 04/08/18 04/08/18 04/08/18 10:25 13:33 23:53 WBC 12.8 H RBC Hgb Hct MCV MCHC RDW Plt Count Lymph % (Auto) [place] % (Auto) Lymph # [place] # Baso # Seg Neutrophils % Seg Neuts % (Manual) 97.0 H Lymphocytes % (Manual) 2.0 L Monocytes % (Manual) Nucleated RBC % Seg Neutrophils # Seg Neutrophils # Man 12.4 H Lymphocytes # (Manual) 0.3 L Monocytes # (Manual) PT INR POC ABG pH POC ABG pCO2 POC ABG pO2 Sodium Potassium 3.5 L Chloride Carbon Dioxide BUN Creatinine Glucose 123 H POC Glucose Calcium 7.9 L Phosphorus Magnesium AST 53 H ALT Alkaline Phosphatase Lactate Dehydrogenase C-Reactive Protein 52.00 H Total Protein 6.1 L Albumin 2.7 L Urine WBC (Auto) Miscellaneous Test 04/09/18 04/09/18 04/09/18 04:20 04:20 13:38 WBC 16.2 H RBC Hgb Hct MCV MCHC RDW Plt Count Lymph % (Auto) [place] % (Auto) Lymph # [place] # Baso # Seg Neutrophils % Seg Neuts % (Manual) 89.0 H Lymphocytes % (Manual) 4.0 L Monocytes % (Manual) Nucleated RBC % Seg Neutrophils # Seg Neutrophils # Man 14.4 H Lymphocytes # (Manual) 0.6 L Monocytes # (Manual) PT INR POC ABG pH 7.494 H POC ABG pCO2 31.6 L POC ABG pO2 68 L Sodium Potassium 3.5 L Chloride Carbon Dioxide BUN Creatinine 0.6 L Glucose 117 H POC Glucose Calcium 7.9 L Phosphorus 1.50 L D Magnesium AST ALT Alkaline Phosphatase Lactate Dehydrogenase C-Reactive Protein Total Protein 5.6 L Albumin 2.9 L Urine WBC (Auto) Miscellaneous Test 04/09/18 04/09/18 04/09/18 18:25 21:45 21:45 WBC 21.3 H RBC 3.62 L Hgb Hct MCV MCHC 35 H RDW Plt Count Lymph % (Auto) [place] % (Auto) Lymph # [place] # Baso # Seg Neutrophils % Seg Neuts % (Manual) 90.0 H Lymphocytes % (Manual) 6.0 L Monocytes % (Manual) Nucleated RBC % 1.0 H Seg Neutrophils # Seg Neutrophils # Man 19.2 H Lymphocytes # (Manual) Monocytes # (Manual) 0.9 H PT INR POC ABG pH POC ABG pCO2 POC ABG pO2 Sodium Potassium Chloride Carbon Dioxide BUN 5 L Creatinine 0.5 L Glucose 134 H POC Glucose 155 H Calcium 7.9 L Phosphorus 2.20 L D Magnesium AST ALT Alkaline Phosphatase Lactate Dehydrogenase C-Reactive Protein Total Protein Albumin Urine WBC (Auto) Miscellaneous Test 04/09/18 04/10/18 04/10/18 23:38 04:07 04:07 WBC 20.2 H RBC 3.38 L Hgb 9.4 L Hct 28.9 L MCV MCHC RDW Plt Count Lymph % (Auto) [place] % (Auto) Lymph # [place] # Baso # Seg Neutrophils % Seg Neuts % (Manual) Lymphocytes % (Manual) 6.0 L Monocytes % (Manual) Nucleated RBC % Seg Neutrophils # Seg Neutrophils # Man 10.7 H Lymphocytes # (Manual) Monocytes # (Manual) PT INR POC ABG pH POC ABG pCO2 POC ABG pO2 Sodium Potassium Chloride Carbon Dioxide BUN 6 L Creatinine 0.6 L Glucose 176 H POC Glucose 160 H Calcium 7.7 L Phosphorus Magnesium AST ALT Alkaline Phosphatase Lactate Dehydrogenase C-Reactive Protein Total Protein Albumin Urine WBC (Auto) Miscellaneous Test 04/10/18 04/10/18 04/10/18 05:29 11:55 12:59 WBC RBC Hgb Hct MCV MCHC RDW Plt Count Lymph % (Auto) [place] % (Auto) Lymph # [place] # Baso # Seg Neutrophils % Seg Neuts % (Manual) Lymphocytes % (Manual) Monocytes % (Manual) Nucleated RBC % Seg Neutrophils # Seg Neutrophils # Man Lymphocytes # (Manual) Monocytes # (Manual) PT INR POC ABG pH 7.519 H POC ABG pCO2 29.3 L POC ABG pO2 63 L Sodium Potassium Chloride Carbon Dioxide BUN Creatinine Glucose POC Glucose 171 H 194 H Calcium Phosphorus Magnesium AST ALT Alkaline Phosphatase Lactate Dehydrogenase C-Reactive Protein Total Protein Albumin Urine WBC (Auto) Miscellaneous Test 04/10/18 04/10/18 04/10/18 18:11 18:28 18:28 WBC 22.7 H RBC 3.62 L Hgb Hct MCV MCHC RDW Plt Count Lymph % (Auto) [place] % (Auto) Lymph # [place] # Baso # Seg Neutrophils % Seg Neuts % (Manual) 84.0 H Lymphocytes % (Manual) 7.0 L Monocytes % (Manual) 8.0 H Nucleated RBC % Seg Neutrophils # Seg Neutrophils # Man 19.1 H Lymphocytes # (Manual) Monocytes # (Manual) 1.8 H PT INR POC ABG pH POC ABG pCO2 POC ABG pO2 Sodium Potassium Chloride Carbon Dioxide BUN Creatinine Glucose POC Glucose 118 H Calcium Phosphorus Magnesium AST ALT Alkaline Phosphatase Lactate Dehydrogenase C-Reactive Protein 45.20 H Total Protein Albumin Urine WBC (Auto) Miscellaneous Test 04/10/18 04/10/18 04/11/18 18:28 23:45 03:35 WBC 20.9 H RBC 3.54 L Hgb 10.0 L Hct MCV MCHC RDW Plt Count Lymph % (Auto) [place] % (Auto) Lymph # [place] # Baso # Seg Neutrophils % Seg Neuts % (Manual) 80.0 H Lymphocytes % (Manual) 6.0 L Monocytes % (Manual) Nucleated RBC % Seg Neutrophils # Seg Neutrophils # Man 16.7 H Lymphocytes # (Manual) Monocytes # (Manual) PT INR POC ABG pH POC ABG pCO2 POC ABG pO2 Sodium Potassium 3.5 L Chloride Carbon Dioxide BUN 5 L Creatinine 0.5 L Glucose 108 H POC Glucose 149 H Calcium 8.3 L Phosphorus Magnesium AST ALT Alkaline Phosphatase Lactate Dehydrogenase C-Reactive Protein Total Protein Albumin Urine WBC (Auto) Miscellaneous Test 04/11/18 04/11/18 04/11/18 03:35 06:17 11:29 WBC RBC Hgb Hct MCV MCHC RDW Plt Count Lymph % (Auto) [place] % (Auto) Lymph # [place] # Baso # Seg Neutrophils % Seg Neuts % (Manual) Lymphocytes % (Manual) Monocytes % (Manual) Nucleated RBC % Seg Neutrophils # Seg Neutrophils # Man Lymphocytes # (Manual) Monocytes # (Manual) PT INR POC ABG pH POC ABG pCO2 POC ABG pO2 Sodium Potassium Chloride Carbon Dioxide BUN Creatinine 0.5 L Glucose 143 H POC Glucose 155 H 158 H Calcium 8.2 L Phosphorus Magnesium AST ALT Alkaline Phosphatase Lactate Dehydrogenase C-Reactive Protein Total Protein 6.0 L Albumin 2.2 L Urine WBC (Auto) Miscellaneous Test 04/11/18 04/11/18 04/12/18 18:13 23:51 05:29 WBC RBC Hgb Hct MCV MCHC RDW Plt Count Lymph % (Auto) [place] % (Auto) Lymph # [place] # Baso # Seg Neutrophils % Seg Neuts % (Manual) Lymphocytes % (Manual) Monocytes % (Manual) Nucleated RBC % Seg Neutrophils # Seg Neutrophils # Man Lymphocytes # (Manual) Monocytes # (Manual) PT INR POC ABG pH POC ABG pCO2 POC ABG pO2 Sodium Potassium Chloride Carbon Dioxide BUN Creatinine Glucose POC Glucose 135 H 143 H 150 H Calcium Phosphorus Magnesium AST ALT Alkaline Phosphatase Lactate Dehydrogenase C-Reactive Protein Total Protein Albumin Urine WBC (Auto) Miscellaneous Test 04/12/18 04/12/18 04/13/18 05:40 05:40 00:32 WBC 18.0 H RBC 3.34 L Hgb 9.5 L Hct 28.9 L MCV MCHC RDW Plt Count Lymph % (Auto) 7.4 L [place] % (Auto) 10.8 H Lymph # [place] # 1.9 H Baso # Seg Neutrophils % 81.1 H Seg Neuts % (Manual) Lymphocytes % (Manual) Monocytes % (Manual) Nucleated RBC % Seg Neutrophils # 14.6 H Seg Neutrophils # Man Lymphocytes # (Manual) Monocytes # (Manual) PT INR POC ABG pH POC ABG pCO2 POC ABG pO2 Sodium Potassium Chloride 107.7 H Carbon Dioxide 21 L BUN Creatinine 0.6 L Glucose 140 H POC Glucose 144 H Calcium Phosphorus Magnesium AST ALT Alkaline Phosphatase Lactate Dehydrogenase C-Reactive Protein Total Protein Albumin Urine WBC (Auto) Miscellaneous Test 04/13/18 04/13/18 04/13/18 04:20 04:20 04:20 WBC 18.1 H RBC 3.52 L Hgb 9.8 L Hct 30.1 L MCV MCHC RDW Plt Count Lymph % (Auto) 11.1 L [place] % (Auto) 13.6 H Lymph # [place] # 2.5 H Baso # Seg Neutrophils % 74.4 H Seg Neuts % (Manual) Lymphocytes % (Manual) Monocytes % (Manual) Nucleated RBC % Seg Neutrophils # 13.4 H Seg Neutrophils # Man Lymphocytes # (Manual) Monocytes # (Manual) PT INR POC ABG pH POC ABG pCO2 POC ABG pO2 Sodium Potassium Chloride Carbon Dioxide BUN Creatinine 0.5 L Glucose 142 H POC Glucose Calcium Phosphorus Magnesium AST ALT Alkaline Phosphatase Lactate Dehydrogenase C-Reactive Protein 29.60 H Total Protein Albumin Urine WBC (Auto) Miscellaneous Test 04/13/18 04/13/18 04/13/18 05:35 13:37 23:50 WBC RBC Hgb Hct MCV MCHC RDW Plt Count Lymph % (Auto) [place] % (Auto) Lymph # [place] # Baso # Seg Neutrophils % Seg Neuts % (Manual) Lymphocytes % (Manual) Monocytes % (Manual) Nucleated RBC % Seg Neutrophils # Seg Neutrophils # Man Lymphocytes # (Manual) Monocytes # (Manual) PT INR POC ABG pH POC ABG pCO2 POC ABG pO2 Sodium Potassium Chloride Carbon Dioxide BUN Creatinine Glucose POC Glucose 142 H 160 H Calcium Phosphorus Magnesium AST ALT Alkaline Phosphatase Lactate Dehydrogenase C-Reactive Protein Total Protein Albumin Urine WBC (Auto) Miscellaneous Test Flexitest 1 H 04/14/18 04/14/18 04/14/18 04:00 04:00 05:29 WBC 22.1 H RBC 3.59 L Hgb 9.9 L Hct MCV MCHC RDW Plt Count Lymph % (Auto) [place] % (Auto) Lymph # [place] # Baso # Seg Neutrophils % Seg Neuts % (Manual) 73.0 H Lymphocytes % (Manual) 9.0 L Monocytes % (Manual) 11.0 H Nucleated RBC % Seg Neutrophils # Seg Neutrophils # Man 16.1 H Lymphocytes # (Manual) Monocytes # (Manual) 2.4 H PT INR POC ABG pH POC ABG pCO2 POC ABG pO2 Sodium Potassium Chloride Carbon Dioxide BUN Creatinine Glucose 155 H POC Glucose 133 H Calcium Phosphorus Magnesium 2.50 H AST ALT Alkaline Phosphatase Lactate Dehydrogenase C-Reactive Protein Total Protein Albumin Urine WBC (Auto) Miscellaneous Test 04/14/18 04/14/18 04/14/18 12:47 16:01 23:42 WBC RBC Hgb Hct MCV MCHC RDW Plt Count Lymph % (Auto) [place] % (Auto) Lymph # [place] # Baso # Seg Neutrophils % Seg Neuts % (Manual) Lymphocytes % (Manual) Monocytes % (Manual) Nucleated RBC % Seg Neutrophils # Seg Neutrophils # Man Lymphocytes # (Manual) Monocytes # (Manual) PT INR POC ABG pH POC ABG pCO2 POC ABG pO2 Sodium Potassium Chloride Carbon Dioxide BUN Creatinine Glucose POC Glucose 183 H 153 H 172 H Calcium Phosphorus Magnesium AST ALT Alkaline Phosphatase Lactate Dehydrogenase C-Reactive Protein Total Protein Albumin Urine WBC (Auto) Miscellaneous Test 04/15/18 04/15/18 04/15/18 04:42 04:42 05:49 WBC 21.5 H RBC 3.37 L Hgb 9.4 L Hct 28.9 L MCV MCHC RDW Plt Count 490 H Lymph % (Auto) [place] % (Auto) Lymph # [place] # Baso # Seg Neutrophils % Seg Neuts % (Manual) 77.0 H Lymphocytes % (Manual) 7.0 L Monocytes % (Manual) 10.0 H Nucleated RBC % Seg Neutrophils # Seg Neutrophils # Man 16.6 H Lymphocytes # (Manual) Monocytes # (Manual) 2.2 H PT INR POC ABG pH POC ABG pCO2 POC ABG pO2 Sodium Potassium 3.4 L Chloride 107.5 H Carbon Dioxide 21 L BUN Creatinine Glucose 165 H POC Glucose 147 H Calcium 8.0 L Phosphorus Magnesium 2.40 H AST ALT Alkaline Phosphatase Lactate Dehydrogenase C-Reactive Protein Total Protein Albumin Urine WBC (Auto) Miscellaneous Test 04/15/18 04/15/18 04/16/18 11:17 17:35 00:26 WBC RBC Hgb Hct MCV MCHC RDW Plt Count Lymph % (Auto) [place] % (Auto) Lymph # [place] # Baso # Seg Neutrophils % Seg Neuts % (Manual) Lymphocytes % (Manual) Monocytes % (Manual) Nucleated RBC % Seg Neutrophils # Seg Neutrophils # Man Lymphocytes # (Manual) Monocytes # (Manual) PT INR POC ABG pH POC ABG pCO2 POC ABG pO2 Sodium Potassium Chloride Carbon Dioxide BUN Creatinine Glucose POC Glucose 119 H 169 H 176 H Calcium Phosphorus Magnesium AST ALT Alkaline Phosphatase Lactate Dehydrogenase C-Reactive Protein Total Protein Albumin Urine WBC (Auto) Miscellaneous Test 04/16/18 04/16/18 04/16/18 06:12 06:19 06:21 WBC 20.7 H RBC 3.25 L Hgb 9.0 L Hct MCV MCHC 29 L RDW 16.7 H Plt Count 498 H Lymph % (Auto) [place] % (Auto) Lymph # [place] # Baso # Seg Neutrophils % Seg Neuts % (Manual) 88.0 H Lymphocytes % (Manual) 5.0 L Monocytes % (Manual) Nucleated RBC % Seg Neutrophils # Seg Neutrophils # Man 18.2 H Lymphocytes # (Manual) 1.0 L Monocytes # (Manual) PT INR POC ABG pH POC ABG pCO2 POC ABG pO2 Sodium Potassium Chloride Carbon Dioxide BUN Creatinine Glucose POC Glucose > 500 H 493 H Calcium Phosphorus Magnesium AST ALT Alkaline Phosphatase Lactate Dehydrogenase C-Reactive Protein Total Protein Albumin Urine WBC (Auto) Miscellaneous Test 04/16/18 04/16/18 04/16/18 06:24 08:52 14:05 WBC RBC Hgb Hct MCV MCHC RDW Plt Count Lymph % (Auto) [place] % (Auto) Lymph # [place] # Baso # Seg Neutrophils % Seg Neuts % (Manual) Lymphocytes % (Manual) Monocytes % (Manual) Nucleated RBC % Seg Neutrophils # Seg Neutrophils # Man Lymphocytes # (Manual) Monocytes # (Manual) PT INR POC ABG pH POC ABG pCO2 POC ABG pO2 Sodium Potassium 3.4 L Chloride Carbon Dioxide BUN Creatinine 0.5 L Glucose 166 H POC Glucose 173 H 196 H Calcium 8.2 L Phosphorus Magnesium AST ALT Alkaline Phosphatase Lactate Dehydrogenase C-Reactive Protein Total Protein Albumin Urine WBC (Auto) Miscellaneous Test 04/16/18 04/17/18 04/17/18 17:17 00:06 04:50 WBC 16.0 H RBC 3.12 L Hgb 8.7 L Hct 29.0 L MCV MCHC RDW 16.2 H Plt Count 455 H Lymph % (Auto) 9.4 L [place] % (Auto) 7.7 H Lymph # [place] # 1.2 H Baso # Seg Neutrophils % 81.9 H Seg Neuts % (Manual) Lymphocytes % (Manual) Monocytes % (Manual) Nucleated RBC % Seg Neutrophils # 13.1 H Seg Neutrophils # Man Lymphocytes # (Manual) Monocytes # (Manual) PT INR POC ABG pH POC ABG pCO2 POC ABG pO2 Sodium Potassium Chloride Carbon Dioxide BUN Creatinine Glucose POC Glucose 189 H 190 H Calcium Phosphorus Magnesium AST ALT Alkaline Phosphatase Lactate Dehydrogenase C-Reactive Protein Total Protein Albumin Urine WBC (Auto) Miscellaneous Test 04/17/18 04/17/18 04/17/18 04:50 05:38 07:17 WBC RBC Hgb Hct MCV MCHC RDW Plt Count Lymph % (Auto) [place] % (Auto) Lymph # [place] # Baso # Seg Neutrophils % Seg Neuts % (Manual) Lymphocytes % (Manual) Monocytes % (Manual) Nucleated RBC % Seg Neutrophils # Seg Neutrophils # Man Lymphocytes # (Manual) Monocytes # (Manual) PT INR POC ABG pH POC ABG pCO2 POC ABG pO2 Sodium 136 L Potassium 3.4 L Chloride 96.9 L Carbon Dioxide BUN Creatinine 0.6 L Glucose 167 H POC Glucose 190 H Calcium 7.6 L 8.0 L Phosphorus Magnesium AST ALT Alkaline Phosphatase Lactate Dehydrogenase C-Reactive Protein Total Protein Albumin Urine WBC (Auto) Miscellaneous Test 04/17/18 04/17/18 04/17/18 11:50 18:37 23:53 WBC RBC Hgb Hct MCV MCHC RDW Plt Count Lymph % (Auto) [place] % (Auto) Lymph # [place] # Baso # Seg Neutrophils % Seg Neuts % (Manual) Lymphocytes % (Manual) Monocytes % (Manual) Nucleated RBC % Seg Neutrophils # Seg Neutrophils # Man Lymphocytes # (Manual) Monocytes # (Manual) PT INR POC ABG pH POC ABG pCO2 POC ABG pO2 Sodium Potassium Chloride Carbon Dioxide BUN Creatinine Glucose POC Glucose 163 H 167 H 142 H Calcium Phosphorus Magnesium AST ALT Alkaline Phosphatase Lactate Dehydrogenase C-Reactive Protein Total Protein Albumin Urine WBC (Auto) Miscellaneous Test 04/18/18 04/18/18 04/18/18 05:59 10:05 12:25 WBC RBC Hgb Hct MCV MCHC RDW Plt Count Lymph % (Auto) [place] % (Auto) Lymph # [place] # Baso # Seg Neutrophils % Seg Neuts % (Manual) Lymphocytes % (Manual) Monocytes % (Manual) Nucleated RBC % Seg Neutrophils # Seg Neutrophils # Man Lymphocytes # (Manual) Monocytes # (Manual) PT INR POC ABG pH POC ABG pCO2 POC ABG pO2 Sodium Potassium Chloride Carbon Dioxide BUN Creatinine 0.5 L Glucose 127 H POC Glucose 144 H 171 H Calcium 8.2 L Phosphorus Magnesium AST ALT Alkaline Phosphatase Lactate Dehydrogenase C-Reactive Protein Total Protein Albumin Urine WBC (Auto) Miscellaneous Test 04/18/18 04/18/18 04/19/18 14:54 17:56 00:15 WBC 18.2 H RBC 2.95 L Hgb 8.9 L Hct 29.0 L MCV 98 H MCHC RDW 16.9 H Plt Count Lymph % (Auto) 9.2 L [place] % (Auto) Lymph # [place] # 1.2 H Baso # Seg Neutrophils % 82.7 H Seg Neuts % (Manual) Lymphocytes % (Manual) Monocytes % (Manual) Nucleated RBC % Seg Neutrophils # 15.1 H Seg Neutrophils # Man Lymphocytes # (Manual) Monocytes # (Manual) PT INR POC ABG pH POC ABG pCO2 POC ABG pO2 Sodium Potassium Chloride Carbon Dioxide BUN Creatinine Glucose POC Glucose 169 H 148 H Calcium Phosphorus Magnesium AST ALT Alkaline Phosphatase Lactate Dehydrogenase C-Reactive Protein Total Protein Albumin Urine WBC (Auto) Miscellaneous Test 04/19/18 04/19/18 04/19/18 05:21 08:00 08:00 WBC 18.7 H RBC Hgb Hct MCV MCHC RDW Plt Count 531 H Lymph % (Auto) [place] % (Auto) Lymph # [place] # Baso # Seg Neutrophils % Seg Neuts % (Manual) Lymphocytes % (Manual) Monocytes % (Manual) Nucleated RBC % Seg Neutrophils # Seg Neutrophils # Man Lymphocytes # (Manual) Monocytes # (Manual) PT INR POC ABG pH POC ABG pCO2 POC ABG pO2 Sodium Potassium Chloride Carbon Dioxide BUN 18 H Creatinine 0.5 L Glucose 141 H POC Glucose 146 H Calcium Phosphorus Magnesium AST ALT 76 H Alkaline Phosphatase 142 H Lactate Dehydrogenase C-Reactive Protein Total Protein Albumin 2.4 L Urine WBC (Auto) Miscellaneous Test 04/19/18 04/19/18 04/20/18 12:12 17:41 00:21 WBC RBC Hgb Hct MCV MCHC RDW Plt Count Lymph % (Auto) [place] % (Auto) Lymph # [place] # Baso # Seg Neutrophils % Seg Neuts % (Manual) Lymphocytes % (Manual) Monocytes % (Manual) Nucleated RBC % Seg Neutrophils # Seg Neutrophils # Man Lymphocytes # (Manual) Monocytes # (Manual) PT INR POC ABG pH POC ABG pCO2 POC ABG pO2 Sodium Potassium Chloride Carbon Dioxide BUN Creatinine Glucose POC Glucose 161 H 134 H 159 H Calcium Phosphorus Magnesium AST ALT Alkaline Phosphatase Lactate Dehydrogenase C-Reactive Protein Total Protein Albumin Urine WBC (Auto) Miscellaneous Test 04/20/18 04/20/18 04/20/18 04:00 04:00 07:05 WBC 16.5 H RBC 3.51 L Hgb 9.9 L Hct 30.1 L MCV MCHC RDW Plt Count 530 H Lymph % (Auto) 10.7 L [place] % (Auto) 9.2 H Lymph # [place] # 1.5 H Baso # Seg Neutrophils % 78.5 H Seg Neuts % (Manual) Lymphocytes % (Manual) Monocytes % (Manual) Nucleated RBC % Seg Neutrophils # 13.0 H Seg Neutrophils # Man Lymphocytes # (Manual) Monocytes # (Manual) PT INR POC ABG pH POC ABG pCO2 POC ABG pO2 Sodium Potassium Chloride Carbon Dioxide BUN 19 H Creatinine 0.6 L Glucose 185 H POC Glucose 166 H Calcium Phosphorus Magnesium AST ALT Alkaline Phosphatase Lactate Dehydrogenase C-Reactive Protein Total Protein Albumin Urine WBC (Auto) Miscellaneous Test 04/20/18 04/20/18 04/21/18 12:59 19:06 00:17 WBC RBC Hgb Hct MCV MCHC RDW Plt Count Lymph % (Auto) [place] % (Auto) Lymph # [place] # Baso # Seg Neutrophils % Seg Neuts % (Manual) Lymphocytes % (Manual) Monocytes % (Manual) Nucleated RBC % Seg Neutrophils # Seg Neutrophils # Man Lymphocytes # (Manual) Monocytes # (Manual) PT INR POC ABG pH POC ABG pCO2 POC ABG pO2 Sodium Potassium Chloride Carbon Dioxide BUN Creatinine Glucose POC Glucose 166 H 170 H 178 H Calcium Phosphorus Magnesium AST ALT Alkaline Phosphatase Lactate Dehydrogenase C-Reactive Protein Total Protein Albumin Urine WBC (Auto) Miscellaneous Test 04/21/18 04/21/18 04/21/18 06:15 06:15 06:39 WBC 15.1 H RBC 3.48 L Hgb 9.8 L Hct 30.2 L MCV MCHC RDW Plt Count 499 H Lymph % (Auto) [place] % (Auto) 8.7 H Lymph # [place] # 1.3 H Baso # 0.2 H Seg Neutrophils % 74.7 H Seg Neuts % (Manual) Lymphocytes % (Manual) Monocytes % (Manual) Nucleated RBC % Seg Neutrophils # 11.3 H Seg Neutrophils # Man Lymphocytes # (Manual) Monocytes # (Manual) PT INR POC ABG pH POC ABG pCO2 POC ABG pO2 Sodium Potassium Chloride 108.8 H Carbon Dioxide BUN 18 H Creatinine 0.6 L Glucose 157 H POC Glucose 153 H Calcium 8.0 L Phosphorus Magnesium AST ALT Alkaline Phosphatase Lactate Dehydrogenase C-Reactive Protein Total Protein Albumin Urine WBC (Auto) Miscellaneous Test 04/21/18 04/21/18 04/21/18 11:49 17:07 22:07 WBC RBC Hgb Hct MCV MCHC RDW Plt Count Lymph % (Auto) [place] % (Auto) Lymph # [place] # Baso # Seg Neutrophils % Seg Neuts % (Manual) Lymphocytes % (Manual) Monocytes % (Manual) Nucleated RBC % Seg Neutrophils # Seg Neutrophils # Man Lymphocytes # (Manual) Monocytes # (Manual) PT INR POC ABG pH POC ABG pCO2 POC ABG pO2 Sodium Potassium Chloride Carbon Dioxide BUN Creatinine Glucose POC Glucose 184 H 163 H 169 H Calcium Phosphorus Magnesium AST ALT Alkaline Phosphatase Lactate Dehydrogenase C-Reactive Protein Total Protein Albumin Urine WBC (Auto) Miscellaneous Test 04/22/18 04/22/18 04/22/18 07:00 07:00 08:52 WBC 14.0 H RBC 3.26 L Hgb 9.3 L Hct 28.6 L MCV MCHC RDW Plt Count 460 H Lymph % (Auto) 13.0 L [place] % (Auto) 10.1 H Lymph # [place] # 1.4 H Baso # Seg Neutrophils % 74.4 H Seg Neuts % (Manual) Lymphocytes % (Manual) Monocytes % (Manual) Nucleated RBC % Seg Neutrophils # 10.4 H Seg Neutrophils # Man Lymphocytes # (Manual) Monocytes # (Manual) PT INR POC ABG pH POC ABG pCO2 POC ABG pO2 Sodium Potassium Chloride Carbon Dioxide BUN 19 H Creatinine 0.6 L Glucose 159 H POC Glucose 156 H Calcium Phosphorus Magnesium AST ALT Alkaline Phosphatase Lactate Dehydrogenase C-Reactive Protein Total Protein Albumin Urine WBC (Auto) Miscellaneous Test 04/22/18 04/22/18 04/22/18 12:34 16:20 21:42 WBC RBC Hgb Hct MCV MCHC RDW Plt Count Lymph % (Auto) [place] % (Auto) Lymph # [place] # Baso # Seg Neutrophils % Seg Neuts % (Manual) Lymphocytes % (Manual) Monocytes % (Manual) Nucleated RBC % Seg Neutrophils # Seg Neutrophils # Man Lymphocytes # (Manual) Monocytes # (Manual) PT INR POC ABG pH POC ABG pCO2 POC ABG pO2 Sodium Potassium Chloride Carbon Dioxide BUN Creatinine Glucose POC Glucose 150 H 148 H 134 H Calcium Phosphorus Magnesium AST ALT Alkaline Phosphatase Lactate Dehydrogenase C-Reactive Protein Total Protein Albumin Urine WBC (Auto) Miscellaneous Test 04/23/18 04/23/18 04/23/18 05:45 05:45 08:45 WBC 12.5 H RBC 3.41 L Hgb 9.6 L Hct 29.6 L MCV MCHC RDW Plt Count 441 H Lymph % (Auto) [place] % (Auto) 11.3 H Lymph # [place] # 1.4 H Baso # Seg Neutrophils % 70.2 H Seg Neuts % (Manual) Lymphocytes % (Manual) Monocytes % (Manual) Nucleated RBC % Seg Neutrophils # 9.0 H Seg Neutrophils # Man Lymphocytes # (Manual) Monocytes # (Manual) PT INR POC ABG pH POC ABG pCO2 POC ABG pO2 Sodium Potassium Chloride Carbon Dioxide BUN 19 H Creatinine 0.6 L Glucose 119 H POC Glucose 154 H Calcium Phosphorus Magnesium 2.40 H AST ALT Alkaline Phosphatase Lactate Dehydrogenase C-Reactive Protein Total Protein Albumin Urine WBC (Auto) Miscellaneous Test 04/23/18 04/23/18 04/24/18 11:45 22:09 07:26 WBC RBC Hgb Hct MCV MCHC RDW Plt Count Lymph % (Auto) [place] % (Auto) Lymph # [place] # Baso # Seg Neutrophils % Seg Neuts % (Manual) Lymphocytes % (Manual) Monocytes % (Manual) Nucleated RBC % Seg Neutrophils # Seg Neutrophils # Man Lymphocytes # (Manual) Monocytes # (Manual) PT INR POC ABG pH POC ABG pCO2 POC ABG pO2 Sodium Potassium Chloride Carbon Dioxide BUN Creatinine Glucose POC Glucose 132 H 113 H 164 H Calcium Phosphorus Magnesium AST ALT Alkaline Phosphatase Lactate Dehydrogenase C-Reactive Protein Total Protein Albumin Urine WBC (Auto) Miscellaneous Test 04/24/18 04/24/18 04/24/18 08:30 08:30 11:27 WBC 14.4 H RBC 3.30 L Hgb 9.6 L Hct 28.4 L MCV MCHC RDW Plt Count Lymph % (Auto) 12.8 L [place] % (Auto) 9.1 H Lymph # [place] # 1.3 H Baso # 0.2 H Seg Neutrophils % 76.4 H Seg Neuts % (Manual) Lymphocytes % (Manual) Monocytes % (Manual) Nucleated RBC % Seg Neutrophils # 11.0 H Seg Neutrophils # Man Lymphocytes # (Manual) Monocytes # (Manual) PT INR POC ABG pH POC ABG pCO2 POC ABG pO2 Sodium Potassium Chloride Carbon Dioxide BUN 18 H Creatinine Glucose 155 H POC Glucose 133 H Calcium Phosphorus Magnesium AST ALT Alkaline Phosphatase Lactate Dehydrogenase C-Reactive Protein Total Protein Albumin Urine WBC (Auto) Miscellaneous Test 04/24/18 04/24/18 04/25/18 16:32 22:17 06:16 WBC RBC Hgb Hct MCV MCHC RDW Plt Count Lymph % (Auto) [place] % (Auto) Lymph # [place] # Baso # Seg Neutrophils % Seg Neuts % (Manual) Lymphocytes % (Manual) Monocytes % (Manual) Nucleated RBC % Seg Neutrophils # Seg Neutrophils # Man Lymphocytes # (Manual) Monocytes # (Manual) PT INR POC ABG pH POC ABG pCO2 POC ABG pO2 Sodium Potassium Chloride Carbon Dioxide BUN Creatinine Glucose POC Glucose 132 H 124 H 133 H Calcium Phosphorus Magnesium AST ALT Alkaline Phosphatase Lactate Dehydrogenase C-Reactive Protein Total Protein Albumin Urine WBC (Auto) Miscellaneous Test 04/25/18 04/25/18 04/25/18 07:39 11:10 11:31 WBC 11.3 H RBC 3.41 L Hgb 9.8 L Hct 29.5 L MCV MCHC RDW Plt Count Lymph % (Auto) 12.3 L [place] % (Auto) 9.0 H Lymph # [place] # 1.0 H Baso # Seg Neutrophils % 77.3 H Seg Neuts % (Manual) Lymphocytes % (Manual) Monocytes % (Manual) Nucleated RBC % Seg Neutrophils # 8.7 H Seg Neutrophils # Man Lymphocytes # (Manual) Monocytes # (Manual) PT INR POC ABG pH POC ABG pCO2 POC ABG pO2 Sodium Potassium Chloride Carbon Dioxide BUN Creatinine Glucose POC Glucose 141 H 145 H Calcium Phosphorus Magnesium AST ALT Alkaline Phosphatase Lactate Dehydrogenase C-Reactive Protein Total Protein Albumin Urine WBC (Auto) Miscellaneous Test 04/25/18 04/25/18 04/26/18 11:31 16:14 00:45 WBC RBC Hgb Hct MCV MCHC RDW Plt Count Lymph % (Auto) [place] % (Auto) Lymph # [place] # Baso # Seg Neutrophils % Seg Neuts % (Manual) Lymphocytes % (Manual) Monocytes % (Manual) Nucleated RBC % Seg Neutrophils # Seg Neutrophils # Man Lymphocytes # (Manual) Monocytes # (Manual) PT INR POC ABG pH POC ABG pCO2 POC ABG pO2 Sodium Potassium Chloride Carbon Dioxide BUN Creatinine Glucose 153 H POC Glucose 163 H 141 H Calcium Phosphorus Magnesium AST ALT Alkaline Phosphatase Lactate Dehydrogenase C-Reactive Protein Total Protein Albumin Urine WBC (Auto) Miscellaneous Test 04/26/18 04/26/18 04/26/18 06:10 06:10 06:37 WBC 14.5 H RBC 3.60 L Hgb Hct MCV MCHC RDW Plt Count Lymph % (Auto) [place] % (Auto) 9.6 H Lymph # [place] # 1.4 H Baso # 0.2 H Seg Neutrophils % 75.0 H Seg Neuts % (Manual) Lymphocytes % (Manual) Monocytes % (Manual) Nucleated RBC % Seg Neutrophils # 10.9 H Seg Neutrophils # Man Lymphocytes # (Manual) Monocytes # (Manual) PT INR POC ABG pH POC ABG pCO2 POC ABG pO2 Sodium Potassium Chloride Carbon Dioxide BUN Creatinine Glucose 138 H POC Glucose 131 H Calcium Phosphorus Magnesium AST ALT Alkaline Phosphatase Lactate Dehydrogenase C-Reactive Protein Total Protein Albumin Urine WBC (Auto) Miscellaneous Test 04/26/18 04/26/18 04/26/18 11:34 16:10 16:39 WBC RBC Hgb Hct MCV MCHC RDW Plt Count Lymph % (Auto) [place] % (Auto) Lymph # [place] # Baso # Seg Neutrophils % Seg Neuts % (Manual) Lymphocytes % (Manual) Monocytes % (Manual) Nucleated RBC % Seg Neutrophils # Seg Neutrophils # Man Lymphocytes # (Manual) Monocytes # (Manual) PT 17.2 H INR 1.33 H POC ABG pH POC ABG pCO2 POC ABG pO2 Sodium Potassium Chloride Carbon Dioxide BUN Creatinine Glucose POC Glucose 129 H Calcium Phosphorus Magnesium AST ALT Alkaline Phosphatase Lactate Dehydrogenase 266 H C-Reactive Protein Total Protein Albumin Urine WBC (Auto) Miscellaneous Test 04/26/18 04/26/18 04/27/18 16:59 22:39 05:50 WBC RBC Hgb Hct MCV MCHC RDW Plt Count Lymph % (Auto) [place] % (Auto) Lymph # [place] # Baso # Seg Neutrophils % Seg Neuts % (Manual) Lymphocytes % (Manual) Monocytes % (Manual) Nucleated RBC % Seg Neutrophils # Seg Neutrophils # Man Lymphocytes # (Manual) Monocytes # (Manual) PT INR POC ABG pH POC ABG pCO2 POC ABG pO2 Sodium Potassium Chloride 97.4 L Carbon Dioxide BUN Creatinine 0.6 L Glucose 135 H POC Glucose 145 H 187 H Calcium 8.2 L Phosphorus Magnesium AST 97 H ALT 222 H Alkaline Phosphatase 191 H Lactate Dehydrogenase C-Reactive Protein Total Protein Albumin 2.5 L Urine WBC (Auto) Miscellaneous Test 04/27/18 04/27/18 04/27/18 11:52 16:35 22:23 WBC RBC Hgb Hct MCV MCHC RDW Plt Count Lymph % (Auto) [place] % (Auto) Lymph # [place] # Baso # Seg Neutrophils % Seg Neuts % (Manual) Lymphocytes % (Manual) Monocytes % (Manual) Nucleated RBC % Seg Neutrophils # Seg Neutrophils # Man Lymphocytes # (Manual) Monocytes # (Manual) PT INR POC ABG pH POC ABG pCO2 POC ABG pO2 Sodium Potassium Chloride Carbon Dioxide BUN Creatinine Glucose POC Glucose 162 H 136 H 188 H Calcium Phosphorus Magnesium AST ALT Alkaline Phosphatase Lactate Dehydrogenase C-Reactive Protein Total Protein Albumin Urine WBC (Auto) Miscellaneous Test 04/28/18 04/28/18 04/28/18 07:06 09:15 12:11 WBC RBC Hgb Hct MCV MCHC RDW Plt Count Lymph % (Auto) [place] % (Auto) Lymph # [place] # Baso # Seg Neutrophils % Seg Neuts % (Manual) Lymphocytes % (Manual) Monocytes % (Manual) Nucleated RBC % Seg Neutrophils # Seg Neutrophils # Man Lymphocytes # (Manual) Monocytes # (Manual) PT INR POC ABG pH POC ABG pCO2 POC ABG pO2 Sodium Potassium Chloride Carbon Dioxide BUN Creatinine 0.5 L Glucose 149 H POC Glucose 160 H 107 H Calcium 8.0 L Phosphorus Magnesium AST ALT Alkaline Phosphatase Lactate Dehydrogenase C-Reactive Protein Total Protein Albumin Urine WBC (Auto) Miscellaneous Test 04/28/18 04/29/18 04/29/18 21:57 05:25 05:59 WBC RBC Hgb Hct MCV MCHC RDW Plt Count Lymph % (Auto) [place] % (Auto) Lymph # [place] # Baso # Seg Neutrophils % Seg Neuts % (Manual) Lymphocytes % (Manual) Monocytes % (Manual) Nucleated RBC % Seg Neutrophils # Seg Neutrophils # Man Lymphocytes # (Manual) Monocytes # (Manual) PT INR POC ABG pH POC ABG pCO2 POC ABG pO2 Sodium Potassium Chloride Carbon Dioxide BUN Creatinine 0.5 L Glucose 122 H POC Glucose 134 H 130 H Calcium 8.3 L Phosphorus Magnesium AST ALT Alkaline Phosphatase Lactate Dehydrogenase C-Reactive Protein Total Protein Albumin Urine WBC (Auto) Miscellaneous Test 04/29/18 04/29/18 04/29/18 12:14 17:45 22:47 WBC RBC Hgb Hct MCV MCHC RDW Plt Count Lymph % (Auto) [place] % (Auto) Lymph # [place] # Baso # Seg Neutrophils % Seg Neuts % (Manual) Lymphocytes % (Manual) Monocytes % (Manual) Nucleated RBC % Seg Neutrophils # Seg Neutrophils # Man Lymphocytes # (Manual) Monocytes # (Manual) PT INR POC ABG pH POC ABG pCO2 POC ABG pO2 Sodium Potassium Chloride Carbon Dioxide BUN Creatinine Glucose POC Glucose 171 H 142 H 317 H Calcium Phosphorus Magnesium AST ALT Alkaline Phosphatase Lactate Dehydrogenase C-Reactive Protein Total Protein Albumin Urine WBC (Auto) Miscellaneous Test 04/30/18 04/30/18 04/30/18 06:18 08:26 11:20 WBC RBC 3.16 L Hgb 9.1 L Hct 27.0 L MCV MCHC RDW Plt Count Lymph % (Auto) [place] % (Auto) 11.8 H Lymph # [place] # Baso # Seg Neutrophils % Seg Neuts % (Manual) Lymphocytes % (Manual) Monocytes % (Manual) Nucleated RBC % Seg Neutrophils # Seg Neutrophils # Man Lymphocytes # (Manual) Monocytes # (Manual) PT INR POC ABG pH POC ABG pCO2 POC ABG pO2 Sodium 135 L Potassium Chloride Carbon Dioxide 21 L BUN Creatinine 0.5 L Glucose 155 H POC Glucose 166 H Calcium Phosphorus Magnesium AST ALT Alkaline Phosphatase Lactate Dehydrogenase C-Reactive Protein Total Protein Albumin Urine WBC (Auto) Miscellaneous Test 04/30/18 04/30/18 05/01/18 12:24 18:05 02:52 WBC RBC Hgb Hct MCV MCHC RDW Plt Count Lymph % (Auto) [place] % (Auto) Lymph # [place] # Baso # Seg Neutrophils % Seg Neuts % (Manual) Lymphocytes % (Manual) Monocytes % (Manual) Nucleated RBC % Seg Neutrophils # Seg Neutrophils # Man Lymphocytes # (Manual) Monocytes # (Manual) PT INR POC ABG pH POC ABG pCO2 POC ABG pO2 Sodium Potassium Chloride Carbon Dioxide BUN Creatinine Glucose POC Glucose 176 H 147 H 132 H Calcium Phosphorus Magnesium AST ALT Alkaline Phosphatase Lactate Dehydrogenase C-Reactive Protein Total Protein Albumin Urine WBC (Auto) Miscellaneous Test 08/0405/02/18 05/02/18 04:00 05:50 11:51 WBC RBC Hgb Hct MCV MCHC RDW Plt Count Lymph % (Auto) [place] % (Auto) Lymph # [place] # Baso # Seg Neutrophils % Seg Neuts % (Manual) Lymphocytes % (Manual) Monocytes % (Manual) Nucleated RBC % Seg Neutrophils # Seg Neutrophils # Man Lymphocytes # (Manual) Monocytes # (Manual) PT INR POC ABG pH POC ABG pCO2 POC ABG pO2 Sodium 134 L Potassium Chloride Carbon Dioxide BUN Creatinine 0.6 L 0.6 L Glucose 101 H 122 H POC Glucose 215 H Calcium Phosphorus Magnesium AST ALT Alkaline Phosphatase Lactate Dehydrogenase C-Reactive Protein Total Protein Albumin Urine WBC (Auto) Miscellaneous Test 05/02/18 05/03/18 05/03/18 17:40 00:58 06:10 WBC RBC Hgb Hct MCV MCHC RDW Plt Count Lymph % (Auto) [place] % (Auto) Lymph # [place] # Baso # Seg Neutrophils % Seg Neuts % (Manual) Lymphocytes % (Manual) Monocytes % (Manual) Nucleated RBC % Seg Neutrophils # Seg Neutrophils # Man Lymphocytes # (Manual) Monocytes # (Manual) PT INR POC ABG pH POC ABG pCO2 POC ABG pO2 Sodium Potassium Chloride Carbon Dioxide BUN Creatinine Glucose POC Glucose 142 H 135 H 107 H Calcium Phosphorus Magnesium AST ALT Alkaline Phosphatase Lactate Dehydrogenase C-Reactive Protein Total Protein Albumin Urine WBC (Auto) Miscellaneous Test 05/03/18 08:01 WBC RBC Hgb Hct MCV MCHC RDW Plt Count Lymph % (Auto) [place] % (Auto) Lymph # [place] # Baso # Seg Neutrophils % Seg Neuts % (Manual) Lymphocytes % (Manual) Monocytes % (Manual) Nucleated RBC % Seg Neutrophils # Seg Neutrophils # Man Lymphocytes # (Manual) Monocytes # (Manual) PT INR POC ABG pH POC ABG pCO2 POC ABG pO2 Sodium Potassium Chloride Carbon Dioxide BUN Creatinine 0.6 L Glucose 128 H POC Glucose Calcium Phosphorus Magnesium AST ALT Alkaline Phosphatase Lactate Dehydrogenase C-Reactive Protein Total Protein Albumin Urine WBC (Auto) Miscellaneous Test Allied health notes reviewed: nursing
--- NOTE | 2018-05-03 11:21 | Progress Note ---
Assessment and Plan Assessment: 1) Sepsis: intermittent fever, leukocytosis resolved as of 04/30. Etiology most likely perf / intra-abdominal collection? vs complicated pneumonia. 2) Gastric perf and intra-abdominal fluid collection. -S/P OR for ex lap, abdominal washout, repair of gastric perforation and placement of drains on 04/08/18. -04/07 peritoneal fluid + Serratia x 2. -Repeat CTA 04/09 showed no PE however increase in left pleural effusion with dense consolidation consistent with atelectasis and a large fluid collection 14 x 4.7 cm in the left lobe of the fever with air bubbles. -CRP=52 --> 45 -procal=0.3 -Repeat CT showed large left pleural effusion, smaller left hep lobe collection and large splenic collection 4.2x6.1 cm -S/P further drain placement 04/16 cx +MSSA and Leuconostoc. 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 Plan: -continue zosyn and zyvox - D8. -monitor fever and leukocytosis -Will f/u UGI series. -Monitor stools. Palmira Baron MD ID attending [phone] Subjective Date of service: 05/03/18 Principal diagnosis: Sepsis Syndrome; Acute Hypoxemic Resp Failure; Acute Encephalopathy Interval history: Fever on 05/01 and 05/02. Afebrile so far today. Had upper GI series done today. Doesn't feel too good today. She c/o nausea, no vomiting and diarrhea. Drank some sips of tea yesterday. On TPN. Microbiology: Blood cultures: 04/07 neg 04/10 neg 04/24 ngtd Fungal Blood cx 04/28 pending Peritoneal cultures: 04/07 Serratia x 2 04/10 ngtd 04/16 MSSA and Strep sp Pleural fluid: 04/26 neg Current Antimicrobials: Zosyn 04/26 Zyvox 04/26 Previous Antimicrobials: Fluconazole Zosyn 04/08-04/14 vanco 04/10-04/19 cefepime and flagyl 04/14-04/24 Objective - Exam Narrative Exam: General appearance: Pt in NAD. A&Ox3.. Eyes: anicteric sclerae, moist conjunctivae; PERRLA HENT: Atraumatic; oropharynx NGT Neck: Trachea midline; supple, no thyromegaly or lymphadenopathy Lungs: CTA. CV: S1,S2 Abdomen: Obese, Soft. 2 R sided drains, 1 mid-adominal drain and 2 L sided drains. Extremities: No peripheral edema or extremity lymphadenopathy Skin: Normal temperature, turgor and texture; no rash, ulcers or subcutaneous nodules Psych: Appropriate affect, alert and oriented to person, place and time. Neuro: alert and oriented x 3. Moving all extremities Lines: RUE PICC for TPN. - Constitutional Vitals: Vital Signs Temp Pulse Resp BP Pulse Ox 98.6 F 96 H 18 129/72 98 05/03/18 07:03 05/03/18 07:10 05/03/18 07:03 05/03/18 07:10 05/03/18 07:04 Temperature -Last 24 Hours Temperature 98.6 F Temperature 99.0 F Temperature 100.5 F Temperature 98 F Temperature 98.3 F - Labs CBC & Chem 7: 04/30/18 11:20 05/03/18 08:01 Labs: Abnormal lab results 05/02/18 05/02/18 05/03/18 Range/Units 11:51 17:40 00:58 Creatinine (0.7-1.2) mg/dL Glucose (65-100) mg/dL POC Glucose 215 H 142 H 135 H (70-105) 05/03/18 05/03/18 Range/Units 06:10 08:01 Creatinine 0.6 L (0.7-1.2) mg/dL Glucose 128 H (65-100) mg/dL POC Glucose 107 H (70-105)
[2018-05-03] MEDS: ZYVOX 600MG/300ML 600 MG/300 ML BAG IV SCH ×2 (12:20→21:58)
[2018-05-03] MEDS: SODIUM CHLORIDE FLUSH SYRINGE 10 ML IV SCH ×2 (12:31→21:58)
--- NOTE | 2018-05-03 13:31 | Fluoroscopy Report ---
UPPER GI SERIES WITH AIR-CONTRAST HISTORY: Gastric leak. Previous gastric leak surgery. FINDINGS: Egg Tester film of the abdomen demonstrates 4 surgical drains in the abdomen. 2 large bore drains terminate in the left upper quadrant posteriorly. 2 pigtail catheters terminate in the left upper quadrant anteriorly. Deglutition was normal. No evidence for extravasation. The esophagus is normal caliber and mucosal pattern throughout. Gastric sleeve surgical changes are poorly demonstrated on this exam. There is immediate extravasation of contrast agent from the proximal stomach in 2 areas which communicate with the 2 large bore drains in the left upper quadrant. One leak is identified just distal to the GE junction in the cardia of the stomach. There is also a smaller fistulous tract arising from the gastric fundus which pools in the left upper quadrant. Delayed images of the abdomen demonstrate a rather large amount of contrast agent in the 2 large bore drains. These leaks do not appear to communicate with the pigtail catheters. The mid and distal stomach and visualized proximal small bowel loops are within normal limits. No evidence for obstruction. IMPRESSION: There appear to be 2 gastric leaks in the proximal stomach which communicate with the large bore drains. Please correlate with the images.
--- NOTE | 2018-05-03 16:11 | Progress Note ---
Assessment and Plan s/p sleeve gastrectomy with post-op leak. Patient re-operated on and drains placed with TPN to allow healing of leak. Thusfar leak has failed to heal. Will ask GI to consult for placement of a gastric stent to promote healing. Subjective Patient Reports: Positive: no new complaints, diarrhea, afebrile (Patient had ugi that showed persistent leak) Objective Vital Signs - 12hr 05/03/18 05/03/18 05/03/18 05:17 07:03 07:04 Temperature 98.6 F Pulse Rate 113 H 97 H 98 H Respiratory 18 Rate Blood Pressure 129/72 O2 Sat by Pulse 98 98 Oximetry 05/03/18 07:10 Temperature Pulse Rate 96 H Respiratory Rate Blood Pressure 129/72 O2 Sat by Pulse Oximetry - General physical appearance no distress, no pain (Several drains in place. Pigtail placed by IR draining minimal amounts) - Abdomen soft (Drains functioning adequately) - Labs 04/30/18 11:20 05/03/18 08:01 Diabetes panel 05/03/18 Range/Units 08:01 Sodium 138 (137-145) mmol/L Potassium 4.1 (3.6-5.0) mmol/L Chloride 100.1 (98-107) mmol/L Carbon Dioxide 25 (22-30) mmol/L BUN 12 (7-17) mg/dL Creatinine 0.6 L (0.7-1.2) mg/dL Glucose 128 H (65-100) mg/dL Calcium 8.6 (8.4-10.2) mg/dL Calcium panel 05/03/18 Range/Units 08:01 Calcium 8.6 (8.4-10.2) mg/dL Phosphorus 3.70 (2.5-4.5) mg/dL Pituitary panel 05/03/18 Range/Units 08:01 Sodium 138 (137-145) mmol/L Potassium 4.1 (3.6-5.0) mmol/L Chloride 100.1 (98-107) mmol/L Carbon Dioxide 25 (22-30) mmol/L BUN 12 (7-17) mg/dL Creatinine 0.6 L (0.7-1.2) mg/dL Glucose 128 H (65-100) mg/dL Calcium 8.6 (8.4-10.2) mg/dL Adrenal panel 05/03/18 Range/Units 08:01 Sodium 138 (137-145) mmol/L Potassium 4.1 (3.6-5.0) mmol/L Chloride 100.1 (98-107) mmol/L Carbon Dioxide 25 (22-30) mmol/L BUN 12 (7-17) mg/dL Creatinine 0.6 L (0.7-1.2) mg/dL Glucose 128 H (65-100) mg/dL Calcium 8.6 (8.4-10.2) mg/dL
[2018-05-03] MEDS: CATAPRES-TTS PATCH TD SCH (16:33)
[2018-05-03 17:44] LABS: Basophils % (Auto) 0.2 % (0.0-1.8); Eosinophils # (Auto) 0.1 K/mm3 (0.0-0.4); Eosinophils % (Auto) 1.4 % (0.0-4.3); Hematocrit 27.8 % (30.3-42.9); Hemoglobin 9.3 gm/dl (10.1-14.3); Lymphocytes # (Auto) 2.3 K/mm3 (1.2-5.4); Lymphocytes % (Auto) 28.1 % (13.4-35.0); Mean Corpuscular HGB Conc 34 % (30-34); Mean Corpuscular Hemoglobin 29 pg (28-32); Mean Corpuscular Volume 85 fl (79-97); Monocytes % (Auto) 11.9 % (0.0-7.3); Platelet Count 257 K/mm3 (140-440); Red Blood Count 3.27 M/mm3 (3.65-5.03); Red Cell Distribution Width 14.5 % (13.2-15.2)
[2018-05-03] MEDS ORDERED: TPN ADULT 1,800 ML IV SCH (20:00)
[2018-05-03] MEDS: LOVENOX SUB-Q SCH (21:56)
[2018-05-04] MEDS: DILAUDID IV PRN ×5 (02:18→23:11)
[2018-05-04] MEDS: ZOSYN/NS 4.5GM/100ML 4.5 GM/100 ML VIAL IV SCH ×3 (02:25→18:53)
[2018-05-04] MEDS: NORMODYNE IV SCH ×6 (02:29→22:43)
[2018-05-04 07:21] LABS: Alanine Aminotransferase 169 units/L (7-56); Albumin 2.5 g/dL (3.9-5); BUN/Creatinine Ratio 18; Blood Urea Nitrogen 11 mg/dL (7-17); Calcium 8.1 mg/dL (8.4-10.2); Hemolysis Index 1
[2018-05-04] MEDS: BROVANA NEBU IH SCH ×2 (07:45→20:40)
[2018-05-04] MEDS: PULMICORT IH SCH ×2 (07:45→20:41)
[2018-05-04] MEDS: PROTONIX IV SCH ×2 (10:25→21:36)
[2018-05-04] MEDS: ZYVOX 600MG/300ML 600 MG/300 ML BAG IV SCH ×2 (10:26→22:41)
[2018-05-04] MEDS: ZOFRAN IV PRN ×2 (10:39→18:46)
--- NOTE | 2018-05-04 11:35 | Progress Note ---
Assessment and Plan Assessment: 1) Sepsis: intermittent fever, leukocytosis resolved as of 04/30. Etiology most likely gastric perforation/intra-abdominal collection with ongoing stomach leaks ? vs. complicated pneumonia. 2) Gastric perf and intra-abdominal fluid collection. -S/P OR for ex lap, abdominal washout, repair of gastric perforation and placement of drains on 04/08/18. -04/07 peritoneal fluid + Serratia x 2. -Repeat CTA 04/09 showed no PE however increase in left pleural effusion with dense consolidation consistent with atelectasis and a large fluid collection 14 x 4.7 cm in the left lobe of the fever with air bubbles. -CRP=52 --> 45 -procal=0.3 -Repeat CT showed large left pleural effusion, smaller left hep lobe collection and large splenic collection 4.2x6.1 cm -S/P further drain placement 04/16 cx +MSSA and Leuconostoc. 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 Recommendations: -continue zosyn and zyvox - D9. -Obtain Blood cx x2 today -monitor fever and leukocytosis -Monitor stools. -GI service consulted for gastric stent. Palmira Baron MD ID attending [phone] Subjective Date of service: 05/04/18 Principal diagnosis: Sepsis Syndrome; Acute Hypoxemic Resp Failure; Acute Encephalopathy Interval history: Febrile yesterday and today. Again NPO since UGI series showed 2 stomach leaks. Still with nausea. Microbiology: Blood cultures: 04/07 neg 04/10 neg 04/24 ngtd Fungal Blood cx 04/28 pending Peritoneal cultures: 04/07 Serratia x 2 04/10 ngtd 04/16 MSSA and Strep sp Pleural fluid: 04/26 neg Current Antimicrobials: Zosyn 04/26 Zyvox 04/26 Previous Antimicrobials: Fluconazole Zosyn 04/08-04/14 vanco 04/10-04/19 cefepime and flagyl 04/14-04/24 Objective - Exam Narrative Exam: General appearance: Pt in NAD. A&Ox3. Eyes: anicteric sclerae, moist conjunctivae; PERRLA HENT: NC/AT. Neck: Trachea midline; supple, no thyromegaly or lymphadenopathy Lungs: CTA. CV: S1,S2 Abdomen: Obese, Soft. 2 R sided drains, 1 mid-adominal drain and 2 L sided drains. Extremities: No peripheral edema or extremity lymphadenopathy Skin: Normal temperature, turgor and texture; no rash, ulcers or subcutaneous nodules Psych: Appropriate affect, alert and oriented to person, place and time. Neuro: alert and oriented x 3. Moving all extremities Lines: RUE PICC for TPN. - Constitutional Vitals: Vital Signs Temp Pulse Resp BP Pulse Ox 99 F 96 H 18 139/75 94 05/04/18 08:00 05/04/18 08:00 05/04/18 08:00 05/04/18 08:00 05/04/18 08:00 Temperature -Last 24 Hours Temperature 99 F Temperature 99.5 F Temperature 100.7 F Temperature 102.8 F Temperature 99.1 F - Labs CBC & Chem 7: 05/03/18 17:08 05/04/18 06:01 Labs: Abnormal lab results 05/03/18 05/03/18 05/03/18 Range/Units 16:44 17:08 23:47 RBC 3.27 L (3.65-5.03) M/mm3 Hgb 9.3 L (10.1-14.3) gm/dl Hct 27.8 L (30.3-42.9) % [place] % (Auto) 11.9 H (0.0-7.3) % [place] # 1.0 H (0.0-0.8) K/mm3 Creatinine (0.7-1.2) mg/dL Glucose (65-100) mg/dL POC Glucose 107 H 149 H (70-105) Calcium (8.4-10.2) mg/dL AST (5-40) units/L ALT (7-56) units/L Alkaline Phosphatase (35-129) units/L Albumin (3.9-5) g/dL 05/04/18 05/04/18 Range/Units 06:01 06:37 RBC (3.65-5.03) M/mm3 Hgb (10.1-14.3) gm/dl Hct (30.3-42.9) % [place] % (Auto) (0.0-7.3) % [place] # (0.0-0.8) K/mm3 Creatinine 0.6 L (0.7-1.2) mg/dL Glucose 140 H (65-100) mg/dL POC Glucose 140 H (70-105) Calcium 8.1 L (8.4-10.2) mg/dL AST 74 H (5-40) units/L ALT 169 H (7-56) units/L Alkaline Phosphatase 203 H (35-129) units/L Albumin 2.5 L (3.9-5) g/dL
--- NOTE | 2018-05-04 12:03 | Gastroenterology Consultation ---
History of Present Illness - Reason for Consult Consult date: 05/04/18 gastric stent placement Requesting physician: BERYL DICKINSON - History of Present Illness Patient is a 58 y/o female with PMH of HTN, sleep apnea, and morbid obesity who is s/p gastrectomy with hiatal hernia repair and partial fundoplication 03/30/18. She was admitted on 04/07/18 due to severe abd pain and nausea. CT of abdomen showed pneumoperitoneum with mild ascites and new small pleural effusion. She was taken to the OR for ex lap, abdominal washout, repair of gastric perforation and placement of drains on 04/08/18. She is currently being treated for sepsis 2/2 intraabdominal infection and PNA (with pleural effusion s/p thoracentesis 04/26/18). She underwent an UGI series yesterday that showed a persistent leak to which GI has been consulted for a gastric stent placement. This morning patient was resting in bed w/o acute distress. Admits to continued nausea but no vomiting or abd pain. Currently NPO on TPN. Past History Past Medical History: hypertension, other (sleep apnea, morbid obesity ) Past Surgical History: Other (rigth hand ganglion cyst removal, hysterectomy, Left knee replacement, right knee replacement, back surgery, lap sleeve gastrectomy with hiatal hernia repair and parital fundoplication) Social history: other (former smoker- last 1989) Family history: no significant family history Medications and Allergies Allergies Allergy/AdvReac Type Severity Reaction Status Date / Time No Known Allergies Allergy Unverified 03/16/18 11:09 Home Medications Medication Instructions Recorded Confirmed Last Taken Type Budesonide/Formoterol Fumarate 2 puff INHALATION BID 03/26/18 04/09/18 03/26/18 History [Symbicort 160-4.5 Mcg Inhaler] Bupropion HCl [Wellbutrin XL] 300 mg PO QAM 03/26/18 04/09/18 03/28/18 History Gabapentin [Neurontin] 400 mg PO TID 03/26/18 04/09/18 03/29/18 History LORazepam [Ativan] 1 mg PO BID PRN 03/26/18 04/09/18 03/29/18 History Linaclotide [Linzess] 145 mcg PO QAM 03/26/18 04/09/18 03/29/18 History Dexlansoprazole (Nf) [Dexilant 60 mg PO QAM 03/30/18 04/09/18 03/28/18 History (Cecilia)] HYDROcodone/APAP 7.5-325 [[place] 1 each PO Q12H PRN 04/07/18 04/09/18 Unknown History 7.5/325] Active Meds: Active Medications Acetaminophen (Tylenol) 650 mg ID Q6H PRN PRN Reason: Fever >101 Last Admin: 04/30/18 03:35 Dose: 650 mg Albuterol (Proventil) 2.5 mg IH Q4HRT PRN PRN Reason: Shortness Of Breath Arformoterol Tartrate (Brovana Nebu) 15 mcg IH Q12HRT JULIETTE Last Admin: 05/04/18 07:45 Dose: 15 mcg Budesonide (Pulmicort) 0.5 mg IH Q12HRT JULIETTE Last Admin: 05/04/18 07:45 Dose: 0.5 mg Clonidine HCl (Catapres-Tts Patch) 0.1 mg TD Mo JULIETTE Last Admin: 05/03/18 16:33 Dose: 0.1 mg Enoxaparin Sodium (Lovenox) 40 mg SUB-Q QDAY@2200 JULIETTE Last Admin: 05/03/18 21:56 Dose: 40 mg Hydralazine HCl (Apresoline) 20 mg IV Q6H PRN PRN Reason: FOR SBP > 160 OR DBP > 90 Last Admin: 04/30/18 04:01 Dose: 20 mg Hydromorphone HCl (Dilaudid) 0.5 mg IV Q3H PRN PRN Reason: Pain , Severe (7-10) Last Admin: 05/04/18 06:01 Dose: 0.5 mg Piperacillin Sod/Tazobactam Sod (Zosyn/Ns 4.5gm/100ml) 4.5 gm in 100 mls @ 200 mls/hr IV Q8H JULIETTE; Protocol Stop: 05/05/18 23:59 Last Admin: 05/04/18 10:40 Dose: 100 mls/hr Linezolid (Zyvox 600mg/300ml) 600 mg in 300 mls @ 300 mls/hr IV Q12HR JULIETTE; Protocol Stop: 05/05/18 23:59 Last Admin: 05/04/18 10:26 Dose: 300 mls/hr Amino Acids/Electrolytes/Dextrose (Tpn Adult) 1,800 mls @ 75 mls/hr IV DAILY@ 1999 [facility]; Protocol Stop: 05/04/18 19:59 Last Admin: 05/03/18 20:20 Dose: 75 mls/hr Labetalol HCl (Normodyne) 20 mg IV Q4HR [facility] Last Admin: 05/04/18 10:24 Dose: 20 mg Lorazepam (Ativan) 1 mg IV BID PRN PRN Reason: Agitation Last Admin: 05/03/18 22:23 Dose: 1 mg Ondansetron HCl (Zofran) 4 mg IV Q8H PRN PRN Reason: Nausea And Vomiting Last Admin: 05/04/18 10:39 Dose: 4 mg Pantoprazole Sodium (Protonix) 40 mg IV BID [facility] Last Admin: 05/04/18 10:25 Dose: 40 mg Phenol (Chloraseptic) 2 spray MM PRN PRN PRN Reason: Sore Throat Last Admin: 04/21/18 00:26 Dose: 2 spray Promethazine HCl (Phenergan) 12.5 mg ID Q6H PRN PRN Reason: Nausea And Vomiting Last Admin: 04/23/18 20:58 Dose: 12.5 mg Sodium Chloride (Sodium Chloride Flush Syringe 10 Ml) 10 ml IV BID [facility] Last Admin: 05/03/18 21:58 Dose: 10 ml Sodium Chloride (Sodium Chloride Flush Syringe 10 Ml) 10 ml IV PRN PRN PRN Reason: LINE FLUSH Last Admin: 04/27/18 15:25 Dose: 10 ml Review of Systems - Review of Systems All systems: negative Gastrointestinal: nausea Exam - Constitutional Vital Signs: Temp Pulse Resp BP Pulse Ox 98.4 F 91 H 18 135/69 96 05/04/18 11:40 05/04/18 11:40 05/04/18 11:40 05/04/18 11:40 05/04/18 11:40 General appearance: no acute distress - Respiratory Respiratory: bilateral: CTA (anterior) - Cardiovascular Rhythm: regular Heart Sounds: Present: S1 & S2 - Gastrointestinal General gastrointestinal: Present: soft, non-tender, non-distended, normal bowel sounds, other (Obese, 2 R sided drains, 1 mid-adominal drain and 2 L sided drains) - Neurologic Neurological: alert and oriented x3 - Labs CBC & Chem 7: 05/03/18 17:08 05/04/18 06:01 Lab Results: Laboratory Results - last 24 hr 05/03/18 05/03/18 05/03/18 12:33 16:44 17:08 WBC 8.2 RBC 3.27 L Hgb 9.3 L Hct 27.8 L MCV 85 MCH 29 MCHC 34 RDW 14.5 Plt Count 257 Lymph % (Auto) 28.1 [place] % (Auto) 11.9 H Eos % (Auto) 1.4 Baso % (Auto) 0.2 Lymph # 2.3 [place] # 1.0 H Eos # 0.1 Baso # 0.0 Seg Neutrophils % 58.4 Seg Neutrophils # 4.8 Sodium Potassium Chloride Carbon Dioxide Anion Gap BUN Creatinine Estimated GFR BUN/Creatinine Ratio Glucose POC Glucose 92 107 H Calcium Phosphorus Magnesium Total Bilirubin AST ALT Alkaline Phosphatase Total Protein Albumin Albumin/Globulin Ratio 05/03/18 05/04/18 05/04/18 23:47 06:01 06:37 WBC RBC Hgb Hct MCV MCH MCHC RDW Plt Count Lymph % (Auto) [place] % (Auto) Eos % (Auto) Baso % (Auto) Lymph # [place] # Eos # Baso # Seg Neutrophils % Seg Neutrophils # Sodium 138 Potassium 3.8 Chloride 99.8 Carbon Dioxide 24 Anion Gap 18 BUN 11 Creatinine 0.6 L Estimated GFR > 60 BUN/Creatinine Ratio 18 Glucose 140 H POC Glucose 149 H 140 H Calcium 8.1 L Phosphorus 3.70 Magnesium 1.70 Total Bilirubin 0.20 AST 74 H ALT 169 H Alkaline Phosphatase 203 H Total Protein 6.7 Albumin 2.5 L Albumin/Globulin Ratio 0.6 05/04/18 11:51 WBC RBC Hgb Hct MCV MCH MCHC RDW Plt Count Lymph % (Auto) [place] % (Auto) Eos % (Auto) Baso % (Auto) Lymph # [place] # Eos # Baso # Seg Neutrophils % Seg Neutrophils # Sodium Potassium Chloride Carbon Dioxide Anion Gap BUN Creatinine Estimated GFR BUN/Creatinine Ratio Glucose POC Glucose 110 H Calcium Phosphorus Magnesium Total Bilirubin AST ALT Alkaline Phosphatase Total Protein Albumin Albumin/Globulin Ratio Assessment and Plan 1.gastric stent placement -patient s/p sleeve gastrectomy and s/p repair of gastric perforation with persistent leak -will discuss possible gastric stent placement with Dr. Anand, however patient may need transfer to tertiary center for further treatment/management -continue TPN and supportive care -further recommendation to follow 2.sepsis- ID following 3.PNA 4.pleural effusion (s/p thoracentesis)
[2018-05-04] MEDS: ATIVAN IV PRN ×2 (13:09→23:21)
--- NOTE | 2018-05-04 13:32 | Progress Note ---
Assessment and Plan Sepsis syndrome with altered mental status in the setting of the systemic inflammatory response syndrome. Mild metabolic acidosis Perforated abdominal viscus status post exploratory laparotomy and repair. Obesity. Atypical Chest Pain Obstructive sleep apnea according to the history. Acute encephalopathy, presumably toxic metabolic. History of hypertension. Arthritis. Gastroesophageal reflux disease. Morbid obesity. Acute hypoxemic respiratory failure - increase clonidine dose to 0.2mg patch - change labetalol to prn dosing - upper G.I. series reports persistent leaks X 2 - continue supplemental oxygen to keep sats > 90% - prn analgesia while watching for respiratory depression - to repeat CT abd/pelvis to evaluate for persistent leak +/- IR intervention - anti-infectives per ID recs (following off AB's) - continue PICC line for TPN - continue PT/OT - continue GI & VTE prophylaxis - continue bronchodilators for COPD (brovana and changed duonebs to prn) - continue BIPAP scheduled qhs for WILVER with prn daytime use (encouraged improved compliance) - wound care per WCT / RN and surgeon - continue other care per attending / other consultants - SNF tentatively once cleared by surgery team ...... re-evaluate in am & prn ...35' Subjective Date of service: 05/04/18 Principal diagnosis: Sepsis Syndrome; Acute Hypoxemic Resp Failure; Acute Encephalopathy Interval history: Patient is seen today for: Sepsis Syndrome; Acute Hypoxemic Resp Failure; Acute Encephalopathy Seen and examined at bedside; 24hour events reviewed; nursing and respiratory care staff consulted; no adverse overnight events reported to me; resting in bed ; overall abdominal pain is better; No N/V/F/C; poor compliance with BIPAP therapy reportedly Objective Vital Signs - 12hr 05/04/18 05/04/18 05/04/18 02:29 03:43 06:09 Temperature 99.5 F Pulse Rate 108 H 100 H 102 H Pulse Rate [ Anterior Bilateral] Respiratory 18 Rate Respiratory Rate [Anterior Bilateral] Blood Pressure 149/78 145/74 144/76 Blood Pressure [Left] O2 Sat by Pulse 94 Oximetry 05/04/18 05/04/18 05/04/18 07:45 07:55 08:00 Temperature 99 F Pulse Rate 96 H Pulse Rate [ 96 H 94 H Anterior Bilateral] Respiratory 18 Rate Respiratory 20 20 Rate [Anterior Bilateral] Blood Pressure Blood Pressure 139/75 [Left] O2 Sat by Pulse 94 Oximetry 05/04/18 11:40 Temperature 98.4 F Pulse Rate 91 H Pulse Rate [ Anterior Bilateral] Respiratory 18 Rate Respiratory Rate [Anterior Bilateral] Blood Pressure 135/69 Blood Pressure [Left] O2 Sat by Pulse 96 Oximetry Constitutional: no acute distress, alert Eyes: non-icteric ENT: oropharynx moist, other (no thyromegaly) Neck: supple, no lymphadenopathy, no JVD, other (large neck circumference) Effort: normal Ascultation: Bilateral: diminished breath sounds, rhonchi (scant in bases) Percussion: Bilateral: not dull Cardiovascular: regular rate and rhythm, other (No R/M) Gastrointestinal: normoactive bowel sounds, soft, non-tender, non-distended, other (no palpable HSM, KRISTI drains) Integumentary: normal Extremities: no cyanosis, no edema, pulses normal, no ischemia or petechiae Neurologic: normal mental status, non-focal exam, pupils equal and round, CN II- XII normal, motor strength normal and Psychiatric: mood appropriate, affect normal CBC and BMP: 05/03/18 17:08 05/05/18 09:46 ABG, PT/INR, D-dimer: ABG POC ABG pH 7.519 (7.35-7.45) H 04/10/18 12:59 POC ABG pCO2 29.3 (35-45) L 04/10/18 12:59 POC ABG pO2 63 (80-105) L 04/10/18 12:59 POC ABG HCO3 23.9 04/10/18 12:59 POC ABG Total CO2 25 04/10/18 12:59 POC ABG O2 Sat 94 04/10/18 12:59 PT/INR, D-dimer PT 17.2 Sec. (12.2-14.9) H 04/26/18 16:39 INR 1.33 (0.87-1.13) H 04/26/18 16:39 Abnormal lab findings: Abnormal Labs 04/07/18 04/07/18 04/07/18 00:05 00:05 09:41 WBC 18.4 H 21.3 H RBC Hgb Hct MCV MCHC RDW Plt Count Lymph % (Auto) 4.5 L Parker % (Auto) Lymph # 0.8 L Parker # 1.2 H Baso # Seg Neutrophils % 88.9 H Seg Neuts % (Manual) 85.0 H Lymphocytes % (Manual) 4.0 L Monocytes % (Manual) Nucleated RBC % Seg Neutrophils # 16.4 H Seg Neutrophils # Man 18.1 H Lymphocytes # (Manual) 0.9 L Monocytes # (Manual) 1.1 H PT INR POC ABG pH POC ABG pCO2 POC ABG pO2 Sodium Potassium Chloride Carbon Dioxide BUN Creatinine Glucose 123 H POC Glucose Calcium 8.0 L Phosphorus Magnesium 1.60 L AST 59 H ALT Alkaline Phosphatase Lactate Dehydrogenase C-Reactive Protein Total Protein Albumin 2.9 L Urine WBC (Auto) Miscellaneous Test 04/07/18 04/08/18 04/08/18 09:41 00:20 10:25 WBC 19.2 H RBC Hgb Hct MCV MCHC RDW Plt Count Lymph % (Auto) 5.4 L Parker % (Auto) Lymph # 1.0 L Parker # 1.1 H Baso # Seg Neutrophils % 88.9 H Seg Neuts % (Manual) Lymphocytes % (Manual) Monocytes % (Manual) Nucleated RBC % Seg Neutrophils # 17.1 H Seg Neutrophils # Man Lymphocytes # (Manual) Monocytes # (Manual) PT INR POC ABG pH POC ABG pCO2 POC ABG pO2 Sodium Potassium 3.3 L Chloride 95.1 L Carbon Dioxide 21 L BUN Creatinine Glucose 113 H POC Glucose Calcium Phosphorus Magnesium AST ALT Alkaline Phosphatase Lactate Dehydrogenase C-Reactive Protein Total Protein Albumin 3.6 L Urine WBC (Auto) 45.0 H Miscellaneous Test 04/08/18 04/08/18 04/08/18 10:25 13:33 23:53 WBC 12.8 H RBC Hgb Hct MCV MCHC RDW Plt Count Lymph % (Auto) Parker % (Auto) Lymph # Parker # Baso # Seg Neutrophils % Seg Neuts % (Manual) 97.0 H Lymphocytes % (Manual) 2.0 L Monocytes % (Manual) Nucleated RBC % Seg Neutrophils # Seg Neutrophils # Man 12.4 H Lymphocytes # (Manual) 0.3 L Monocytes # (Manual) PT INR POC ABG pH POC ABG pCO2 POC ABG pO2 Sodium Potassium 3.5 L Chloride Carbon Dioxide BUN Creatinine Glucose 123 H POC Glucose Calcium 7.9 L Phosphorus Magnesium AST 53 H ALT Alkaline Phosphatase Lactate Dehydrogenase C-Reactive Protein 52.00 H Total Protein 6.1 L Albumin 2.7 L Urine WBC (Auto) Miscellaneous Test 04/09/18 04/09/18 04/09/18 04:20 04:20 13:38 WBC 16.2 H RBC Hgb Hct MCV MCHC RDW Plt Count Lymph % (Auto) Parker % (Auto) Lymph # Parker # Baso # Seg Neutrophils % Seg Neuts % (Manual) 89.0 H Lymphocytes % (Manual) 4.0 L Monocytes % (Manual) Nucleated RBC % Seg Neutrophils # Seg Neutrophils # Man 14.4 H Lymphocytes # (Manual) 0.6 L Monocytes # (Manual) PT INR POC ABG pH 7.494 H POC ABG pCO2 31.6 L POC ABG pO2 68 L Sodium Potassium 3.5 L Chloride Carbon Dioxide BUN Creatinine 0.6 L Glucose 117 H POC Glucose Calcium 7.9 L Phosphorus 1.50 L D Magnesium AST ALT Alkaline Phosphatase Lactate Dehydrogenase C-Reactive Protein Total Protein 5.6 L Albumin 2.9 L Urine WBC (Auto) Miscellaneous Test 04/09/18 04/09/18 04/09/18 18:25 21:45 21:45 WBC 21.3 H RBC 3.62 L Hgb Hct MCV MCHC 35 H RDW Plt Count Lymph % (Auto) Parker % (Auto) Lymph # Parker # Baso # Seg Neutrophils % Seg Neuts % (Manual) 90.0 H Lymphocytes % (Manual) 6.0 L Monocytes % (Manual) Nucleated RBC % 1.0 H Seg Neutrophils # Seg Neutrophils # Man 19.2 H Lymphocytes # (Manual) Monocytes # (Manual) 0.9 H PT INR POC ABG pH POC ABG pCO2 POC ABG pO2 Sodium Potassium Chloride Carbon Dioxide BUN 5 L Creatinine 0.5 L Glucose 134 H POC Glucose 155 H Calcium 7.9 L Phosphorus 2.20 L D Magnesium AST ALT Alkaline Phosphatase Lactate Dehydrogenase C-Reactive Protein Total Protein Albumin Urine WBC (Auto) Miscellaneous Test 04/09/18 04/10/18 04/10/18 23:38 04:07 04:07 WBC 20.2 H RBC 3.38 L Hgb 9.4 L Hct 28.9 L MCV MCHC RDW Plt Count Lymph % (Auto) Parker % (Auto) Lymph # Parker # Baso # Seg Neutrophils % Seg Neuts % (Manual) Lymphocytes % (Manual) 6.0 L Monocytes % (Manual) Nucleated RBC % Seg Neutrophils # Seg Neutrophils # Man 10.7 H Lymphocytes # (Manual) Monocytes # (Manual) PT INR POC ABG pH POC ABG pCO2 POC ABG pO2 Sodium Potassium Chloride Carbon Dioxide BUN 6 L Creatinine 0.6 L Glucose 176 H POC Glucose 160 H Calcium 7.7 L Phosphorus Magnesium AST ALT Alkaline Phosphatase Lactate Dehydrogenase C-Reactive Protein Total Protein Albumin Urine WBC (Auto) Miscellaneous Test 04/10/18 04/10/18 04/10/18 05:29 11:55 12:59 WBC RBC Hgb Hct MCV MCHC RDW Plt Count Lymph % (Auto) Parker % (Auto) Lymph # Parker # Baso # Seg Neutrophils % Seg Neuts % (Manual) Lymphocytes % (Manual) Monocytes % (Manual) Nucleated RBC % Seg Neutrophils # Seg Neutrophils # Man Lymphocytes # (Manual) Monocytes # (Manual) PT INR POC ABG pH 7.519 H POC ABG pCO2 29.3 L POC ABG pO2 63 L Sodium Potassium Chloride Carbon Dioxide BUN Creatinine Glucose POC Glucose 171 H 194 H Calcium Phosphorus Magnesium AST ALT Alkaline Phosphatase Lactate Dehydrogenase C-Reactive Protein Total Protein Albumin Urine WBC (Auto) Miscellaneous Test 04/10/18 04/10/18 04/10/18 18:11 18:28 18:28 WBC 22.7 H RBC 3.62 L Hgb Hct MCV MCHC RDW Plt Count Lymph % (Auto) Parker % (Auto) Lymph # Parker # Baso # Seg Neutrophils % Seg Neuts % (Manual) 84.0 H Lymphocytes % (Manual) 7.0 L Monocytes % (Manual) 8.0 H Nucleated RBC % Seg Neutrophils # Seg Neutrophils # Man 19.1 H Lymphocytes # (Manual) Monocytes # (Manual) 1.8 H PT INR POC ABG pH POC ABG pCO2 POC ABG pO2 Sodium Potassium Chloride Carbon Dioxide BUN Creatinine Glucose POC Glucose 118 H Calcium Phosphorus Magnesium AST ALT Alkaline Phosphatase Lactate Dehydrogenase C-Reactive Protein 45.20 H Total Protein Albumin Urine WBC (Auto) Miscellaneous Test 04/10/18 04/10/18 04/11/18 18:28 23:45 03:35 WBC 20.9 H RBC 3.54 L Hgb 10.0 L Hct MCV MCHC RDW Plt Count Lymph % (Auto) Parker % (Auto) Lymph # Parker # Baso # Seg Neutrophils % Seg Neuts % (Manual) 80.0 H Lymphocytes % (Manual) 6.0 L Monocytes % (Manual) Nucleated RBC % Seg Neutrophils # Seg Neutrophils # Man 16.7 H Lymphocytes # (Manual) Monocytes # (Manual) PT INR POC ABG pH POC ABG pCO2 POC ABG pO2 Sodium Potassium 3.5 L Chloride Carbon Dioxide BUN 5 L Creatinine 0.5 L Glucose 108 H POC Glucose 149 H Calcium 8.3 L Phosphorus Magnesium AST ALT Alkaline Phosphatase Lactate Dehydrogenase C-Reactive Protein Total Protein Albumin Urine WBC (Auto) Miscellaneous Test 04/11/18 04/11/18 04/11/18 03:35 06:17 11:29 WBC RBC Hgb Hct MCV MCHC RDW Plt Count Lymph % (Auto) Parker % (Auto) Lymph # Parker # Baso # Seg Neutrophils % Seg Neuts % (Manual) Lymphocytes % (Manual) Monocytes % (Manual) Nucleated RBC % Seg Neutrophils # Seg Neutrophils # Man Lymphocytes # (Manual) Monocytes # (Manual) PT INR POC ABG pH POC ABG pCO2 POC ABG pO2 Sodium Potassium Chloride Carbon Dioxide BUN Creatinine 0.5 L Glucose 143 H POC Glucose 155 H 158 H Calcium 8.2 L Phosphorus Magnesium AST ALT Alkaline Phosphatase Lactate Dehydrogenase C-Reactive Protein Total Protein 6.0 L Albumin 2.2 L Urine WBC (Auto) Miscellaneous Test 04/11/18 04/11/18 04/12/18 18:13 23:51 05:29 WBC RBC Hgb Hct MCV MCHC RDW Plt Count Lymph % (Auto) Parker % (Auto) Lymph # Parker # Baso # Seg Neutrophils % Seg Neuts % (Manual) Lymphocytes % (Manual) Monocytes % (Manual) Nucleated RBC % Seg Neutrophils # Seg Neutrophils # Man Lymphocytes # (Manual) Monocytes # (Manual) PT INR POC ABG pH POC ABG pCO2 POC ABG pO2 Sodium Potassium Chloride Carbon Dioxide BUN Creatinine Glucose POC Glucose 135 H 143 H 150 H Calcium Phosphorus Magnesium AST ALT Alkaline Phosphatase Lactate Dehydrogenase C-Reactive Protein Total Protein Albumin Urine WBC (Auto) Miscellaneous Test 04/12/18 04/12/18 04/13/18 05:40 05:40 00:32 WBC 18.0 H RBC 3.34 L Hgb 9.5 L Hct 28.9 L MCV MCHC RDW Plt Count Lymph % (Auto) 7.4 L Parker % (Auto) 10.8 H Lymph # Parker # 1.9 H Baso # Seg Neutrophils % 81.1 H Seg Neuts % (Manual) Lymphocytes % (Manual) Monocytes % (Manual) Nucleated RBC % Seg Neutrophils # 14.6 H Seg Neutrophils # Man Lymphocytes # (Manual) Monocytes # (Manual) PT INR POC ABG pH POC ABG pCO2 POC ABG pO2 Sodium Potassium Chloride 107.7 H Carbon Dioxide 21 L BUN Creatinine 0.6 L Glucose 140 H POC Glucose 144 H Calcium Phosphorus Magnesium AST ALT Alkaline Phosphatase Lactate Dehydrogenase C-Reactive Protein Total Protein Albumin Urine WBC (Auto) Miscellaneous Test 04/13/18 04/13/18 04/13/18 04:20 04:20 04:20 WBC 18.1 H RBC 3.52 L Hgb 9.8 L Hct 30.1 L MCV MCHC RDW Plt Count Lymph % (Auto) 11.1 L Parker % (Auto) 13.6 H Lymph # Parker # 2.5 H Baso # Seg Neutrophils % 74.4 H Seg Neuts % (Manual) Lymphocytes % (Manual) Monocytes % (Manual) Nucleated RBC % Seg Neutrophils # 13.4 H Seg Neutrophils # Man Lymphocytes # (Manual) Monocytes # (Manual) PT INR POC ABG pH POC ABG pCO2 POC ABG pO2 Sodium Potassium Chloride Carbon Dioxide BUN Creatinine 0.5 L Glucose 142 H POC Glucose Calcium Phosphorus Magnesium AST ALT Alkaline Phosphatase Lactate Dehydrogenase C-Reactive Protein 29.60 H Total Protein Albumin Urine WBC (Auto) Miscellaneous Test 04/13/18 04/13/18 04/13/18 05:35 13:37 23:50 WBC RBC Hgb Hct MCV MCHC RDW Plt Count Lymph % (Auto) Parker % (Auto) Lymph # Parker # Baso # Seg Neutrophils % Seg Neuts % (Manual) Lymphocytes % (Manual) Monocytes % (Manual) Nucleated RBC % Seg Neutrophils # Seg Neutrophils # Man Lymphocytes # (Manual) Monocytes # (Manual) PT INR POC ABG pH POC ABG pCO2 POC ABG pO2 Sodium Potassium Chloride Carbon Dioxide BUN Creatinine Glucose POC Glucose 142 H 160 H Calcium Phosphorus Magnesium AST ALT Alkaline Phosphatase Lactate Dehydrogenase C-Reactive Protein Total Protein Albumin Urine WBC (Auto) Miscellaneous Test Flexitest 1 H 04/14/18 04/14/18 04/14/18 04:00 04:00 05:29 WBC 22.1 H RBC 3.59 L Hgb 9.9 L Hct MCV MCHC RDW Plt Count Lymph % (Auto) Parker % (Auto) Lymph # Parker # Baso # Seg Neutrophils % Seg Neuts % (Manual) 73.0 H Lymphocytes % (Manual) 9.0 L Monocytes % (Manual) 11.0 H Nucleated RBC % Seg Neutrophils # Seg Neutrophils # Man 16.1 H Lymphocytes # (Manual) Monocytes # (Manual) 2.4 H PT INR POC ABG pH POC ABG pCO2 POC ABG pO2 Sodium Potassium Chloride Carbon Dioxide BUN Creatinine Glucose 155 H POC Glucose 133 H Calcium Phosphorus Magnesium 2.50 H AST ALT Alkaline Phosphatase Lactate Dehydrogenase C-Reactive Protein Total Protein Albumin Urine WBC (Auto) Miscellaneous Test 04/14/18 04/14/18 04/14/18 12:47 16:01 23:42 WBC RBC Hgb Hct MCV MCHC RDW Plt Count Lymph % (Auto) Parker % (Auto) Lymph # Parker # Baso # Seg Neutrophils % Seg Neuts % (Manual) Lymphocytes % (Manual) Monocytes % (Manual) Nucleated RBC % Seg Neutrophils # Seg Neutrophils # Man Lymphocytes # (Manual) Monocytes # (Manual) PT INR POC ABG pH POC ABG pCO2 POC ABG pO2 Sodium Potassium Chloride Carbon Dioxide BUN Creatinine Glucose POC Glucose 183 H 153 H 172 H Calcium Phosphorus Magnesium AST ALT Alkaline Phosphatase Lactate Dehydrogenase C-Reactive Protein Total Protein Albumin Urine WBC (Auto) Miscellaneous Test 04/15/18 04/15/18 04/15/18 04:42 04:42 05:49 WBC 21.5 H RBC 3.37 L Hgb 9.4 L Hct 28.9 L MCV MCHC RDW Plt Count 490 H Lymph % (Auto) Parker % (Auto) Lymph # Parker # Baso # Seg Neutrophils % Seg Neuts % (Manual) 77.0 H Lymphocytes % (Manual) 7.0 L Monocytes % (Manual) 10.0 H Nucleated RBC % Seg Neutrophils # Seg Neutrophils # Man 16.6 H Lymphocytes # (Manual) Monocytes # (Manual) 2.2 H PT INR POC ABG pH POC ABG pCO2 POC ABG pO2 Sodium Potassium 3.4 L Chloride 107.5 H Carbon Dioxide 21 L BUN Creatinine Glucose 165 H POC Glucose 147 H Calcium 8.0 L Phosphorus Magnesium 2.40 H AST ALT Alkaline Phosphatase Lactate Dehydrogenase C-Reactive Protein Total Protein Albumin Urine WBC (Auto) Miscellaneous Test 04/15/18 04/15/18 04/16/18 11:17 17:35 00:26 WBC RBC Hgb Hct MCV MCHC RDW Plt Count Lymph % (Auto) Parker % (Auto) Lymph # Parker # Baso # Seg Neutrophils % Seg Neuts % (Manual) Lymphocytes % (Manual) Monocytes % (Manual) Nucleated RBC % Seg Neutrophils # Seg Neutrophils # Man Lymphocytes # (Manual) Monocytes # (Manual) PT INR POC ABG pH POC ABG pCO2 POC ABG pO2 Sodium Potassium Chloride Carbon Dioxide BUN Creatinine Glucose POC Glucose 119 H 169 H 176 H Calcium Phosphorus Magnesium AST ALT Alkaline Phosphatase Lactate Dehydrogenase C-Reactive Protein Total Protein Albumin Urine WBC (Auto) Miscellaneous Test 04/16/18 04/16/18 04/16/18 06:12 06:19 06:21 WBC 20.7 H RBC 3.25 L Hgb 9.0 L Hct MCV MCHC 29 L RDW 16.7 H Plt Count 498 H Lymph % (Auto) Parker % (Auto) Lymph # Parker # Baso # Seg Neutrophils % Seg Neuts % (Manual) 88.0 H Lymphocytes % (Manual) 5.0 L Monocytes % (Manual) Nucleated RBC % Seg Neutrophils # Seg Neutrophils # Man 18.2 H Lymphocytes # (Manual) 1.0 L Monocytes # (Manual) PT INR POC ABG pH POC ABG pCO2 POC ABG pO2 Sodium Potassium Chloride Carbon Dioxide BUN Creatinine Glucose POC Glucose > 500 H 493 H Calcium Phosphorus Magnesium AST ALT Alkaline Phosphatase Lactate Dehydrogenase C-Reactive Protein Total Protein Albumin Urine WBC (Auto) Miscellaneous Test 04/16/18 04/16/18 04/16/18 06:24 08:52 14:05 WBC RBC Hgb Hct MCV MCHC RDW Plt Count Lymph % (Auto) Parker % (Auto) Lymph # Parker # Baso # Seg Neutrophils % Seg Neuts % (Manual) Lymphocytes % (Manual) Monocytes % (Manual) Nucleated RBC % Seg Neutrophils # Seg Neutrophils # Man Lymphocytes # (Manual) Monocytes # (Manual) PT INR POC ABG pH POC ABG pCO2 POC ABG pO2 Sodium Potassium 3.4 L Chloride Carbon Dioxide BUN Creatinine 0.5 L Glucose 166 H POC Glucose 173 H 196 H Calcium 8.2 L Phosphorus Magnesium AST ALT Alkaline Phosphatase Lactate Dehydrogenase C-Reactive Protein Total Protein Albumin Urine WBC (Auto) Miscellaneous Test 04/16/18 04/17/18 04/17/18 17:17 00:06 04:50 WBC 16.0 H RBC 3.12 L Hgb 8.7 L Hct 29.0 L MCV MCHC RDW 16.2 H Plt Count 455 H Lymph % (Auto) 9.4 L Parker % (Auto) 7.7 H Lymph # Parker # 1.2 H Baso # Seg Neutrophils % 81.9 H Seg Neuts % (Manual) Lymphocytes % (Manual) Monocytes % (Manual) Nucleated RBC % Seg Neutrophils # 13.1 H Seg Neutrophils # Man Lymphocytes # (Manual) Monocytes # (Manual) PT INR POC ABG pH POC ABG pCO2 POC ABG pO2 Sodium Potassium Chloride Carbon Dioxide BUN Creatinine Glucose POC Glucose 189 H 190 H Calcium Phosphorus Magnesium AST ALT Alkaline Phosphatase Lactate Dehydrogenase C-Reactive Protein Total Protein Albumin Urine WBC (Auto) Miscellaneous Test 04/17/18 04/17/18 04/17/18 04:50 05:38 07:17 WBC RBC Hgb Hct MCV MCHC RDW Plt Count Lymph % (Auto) Parker % (Auto) Lymph # Parker # Baso # Seg Neutrophils % Seg Neuts % (Manual) Lymphocytes % (Manual) Monocytes % (Manual) Nucleated RBC % Seg Neutrophils # Seg Neutrophils # Man Lymphocytes # (Manual) Monocytes # (Manual) PT INR POC ABG pH POC ABG pCO2 POC ABG pO2 Sodium 136 L Potassium 3.4 L Chloride 96.9 L Carbon Dioxide BUN Creatinine 0.6 L Glucose 167 H POC Glucose 190 H Calcium 7.6 L 8.0 L Phosphorus Magnesium AST ALT Alkaline Phosphatase Lactate Dehydrogenase C-Reactive Protein Total Protein Albumin Urine WBC (Auto) Miscellaneous Test 04/17/18 04/17/18 04/17/18 11:50 18:37 23:53 WBC RBC Hgb Hct MCV MCHC RDW Plt Count Lymph % (Auto) Parker % (Auto) Lymph # Parker # Baso # Seg Neutrophils % Seg Neuts % (Manual) Lymphocytes % (Manual) Monocytes % (Manual) Nucleated RBC % Seg Neutrophils # Seg Neutrophils # Man Lymphocytes # (Manual) Monocytes # (Manual) PT INR POC ABG pH POC ABG pCO2 POC ABG pO2 Sodium Potassium Chloride Carbon Dioxide BUN Creatinine Glucose POC Glucose 163 H 167 H 142 H Calcium Phosphorus Magnesium AST ALT Alkaline Phosphatase Lactate Dehydrogenase C-Reactive Protein Total Protein Albumin Urine WBC (Auto) Miscellaneous Test 04/18/18 04/18/18 04/18/18 05:59 10:05 12:25 WBC RBC Hgb Hct MCV MCHC RDW Plt Count Lymph % (Auto) Parker % (Auto) Lymph # Parker # Baso # Seg Neutrophils % Seg Neuts % (Manual) Lymphocytes % (Manual) Monocytes % (Manual) Nucleated RBC % Seg Neutrophils # Seg Neutrophils # Man Lymphocytes # (Manual) Monocytes # (Manual) PT INR POC ABG pH POC ABG pCO2 POC ABG pO2 Sodium Potassium Chloride Carbon Dioxide BUN Creatinine 0.5 L Glucose 127 H POC Glucose 144 H 171 H Calcium 8.2 L Phosphorus Magnesium AST ALT Alkaline Phosphatase Lactate Dehydrogenase C-Reactive Protein Total Protein Albumin Urine WBC (Auto) Miscellaneous Test 04/18/18 04/18/18 04/19/18 14:54 17:56 00:15 WBC 18.2 H RBC 2.95 L Hgb 8.9 L Hct 29.0 L MCV 98 H MCHC RDW 16.9 H Plt Count Lymph % (Auto) 9.2 L Parker % (Auto) Lymph # Parker # 1.2 H Baso # Seg Neutrophils % 82.7 H Seg Neuts % (Manual) Lymphocytes % (Manual) Monocytes % (Manual) Nucleated RBC % Seg Neutrophils # 15.1 H Seg Neutrophils # Man Lymphocytes # (Manual) Monocytes # (Manual) PT INR POC ABG pH POC ABG pCO2 POC ABG pO2 Sodium Potassium Chloride Carbon Dioxide BUN Creatinine Glucose POC Glucose 169 H 148 H Calcium Phosphorus Magnesium AST ALT Alkaline Phosphatase Lactate Dehydrogenase C-Reactive Protein Total Protein Albumin Urine WBC (Auto) Miscellaneous Test 04/19/18 04/19/18 04/19/18 05:21 08:00 08:00 WBC 18.7 H RBC Hgb Hct MCV MCHC RDW Plt Count 531 H Lymph % (Auto) [place] % (Auto) Lymph # Parker # Baso # Seg Neutrophils % Seg Neuts % (Manual) Lymphocytes % (Manual) Monocytes % (Manual) Nucleated RBC % Seg Neutrophils # Seg Neutrophils # Man Lymphocytes # (Manual) Monocytes # (Manual) PT INR POC ABG pH POC ABG pCO2 POC ABG pO2 Sodium Potassium Chloride Carbon Dioxide BUN 18 H Creatinine 0.5 L Glucose 141 H POC Glucose 146 H Calcium Phosphorus Magnesium AST ALT 76 H Alkaline Phosphatase 142 H Lactate Dehydrogenase C-Reactive Protein Total Protein Albumin 2.4 L Urine WBC (Auto) Miscellaneous Test 04/19/18 04/19/18 04/20/18 12:12 17:41 00:21 WBC RBC Hgb Hct MCV MCHC RDW Plt Count Lymph % (Auto) [place] % (Auto) Lymph # Parker # Baso # Seg Neutrophils % Seg Neuts % (Manual) Lymphocytes % (Manual) Monocytes % (Manual) Nucleated RBC % Seg Neutrophils # Seg Neutrophils # Man Lymphocytes # (Manual) Monocytes # (Manual) PT INR POC ABG pH POC ABG pCO2 POC ABG pO2 Sodium Potassium Chloride Carbon Dioxide BUN Creatinine Glucose POC Glucose 161 H 134 H 159 H Calcium Phosphorus Magnesium AST ALT Alkaline Phosphatase Lactate Dehydrogenase C-Reactive Protein Total Protein Albumin Urine WBC (Auto) Miscellaneous Test 04/20/18 04/20/18 04/20/18 04:00 04:00 07:05 WBC 16.5 H RBC 3.51 L Hgb 9.9 L Hct 30.1 L MCV MCHC RDW Plt Count 530 H Lymph % (Auto) 10.7 L [place] % (Auto) 9.2 H Lymph # Parker # 1.5 H Baso # Seg Neutrophils % 78.5 H Seg Neuts % (Manual) Lymphocytes % (Manual) Monocytes % (Manual) Nucleated RBC % Seg Neutrophils # 13.0 H Seg Neutrophils # Man Lymphocytes # (Manual) Monocytes # (Manual) PT INR POC ABG pH POC ABG pCO2 POC ABG pO2 Sodium Potassium Chloride Carbon Dioxide BUN 19 H Creatinine 0.6 L Glucose 185 H POC Glucose 166 H Calcium Phosphorus Magnesium AST ALT Alkaline Phosphatase Lactate Dehydrogenase C-Reactive Protein Total Protein Albumin Urine WBC (Auto) Miscellaneous Test 04/20/18 04/20/18 04/21/18 12:59 19:06 00:17 WBC RBC Hgb Hct MCV MCHC RDW Plt Count Lymph % (Auto) [place] % (Auto) Lymph # Parker # Baso # Seg Neutrophils % Seg Neuts % (Manual) Lymphocytes % (Manual) Monocytes % (Manual) Nucleated RBC % Seg Neutrophils # Seg Neutrophils # Man Lymphocytes # (Manual) Monocytes # (Manual) PT INR POC ABG pH POC ABG pCO2 POC ABG pO2 Sodium Potassium Chloride Carbon Dioxide BUN Creatinine Glucose POC Glucose 166 H 170 H 178 H Calcium Phosphorus Magnesium AST ALT Alkaline Phosphatase Lactate Dehydrogenase C-Reactive Protein Total Protein Albumin Urine WBC (Auto) Miscellaneous Test 04/21/18 04/21/18 04/21/18 06:15 06:15 06:39 WBC 15.1 H RBC 3.48 L Hgb 9.8 L Hct 30.2 L MCV MCHC RDW Plt Count 499 H Lymph % (Auto) [place] % (Auto) 8.7 H Lymph # Parker # 1.3 H Baso # 0.2 H Seg Neutrophils % 74.7 H Seg Neuts % (Manual) Lymphocytes % (Manual) Monocytes % (Manual) Nucleated RBC % Seg Neutrophils # 11.3 H Seg Neutrophils # Man Lymphocytes # (Manual) Monocytes # (Manual) PT INR POC ABG pH POC ABG pCO2 POC ABG pO2 Sodium Potassium Chloride 108.8 H Carbon Dioxide BUN 18 H Creatinine 0.6 L Glucose 157 H POC Glucose 153 H Calcium 8.0 L Phosphorus Magnesium AST ALT Alkaline Phosphatase Lactate Dehydrogenase C-Reactive Protein Total Protein Albumin Urine WBC (Auto) Miscellaneous Test 04/21/18 04/21/18 04/21/18 11:49 17:07 22:07 WBC RBC Hgb Hct MCV MCHC RDW Plt Count Lymph % (Auto) [place] % (Auto) Lymph # [place] # Baso # Seg Neutrophils % Seg Neuts % (Manual) Lymphocytes % (Manual) Monocytes % (Manual) Nucleated RBC % Seg Neutrophils # Seg Neutrophils # Man Lymphocytes # (Manual) Monocytes # (Manual) PT INR POC ABG pH POC ABG pCO2 POC ABG pO2 Sodium Potassium Chloride Carbon Dioxide BUN Creatinine Glucose POC Glucose 184 H 163 H 169 H Calcium Phosphorus Magnesium AST ALT Alkaline Phosphatase Lactate Dehydrogenase C-Reactive Protein Total Protein Albumin Urine WBC (Auto) Miscellaneous Test 04/22/18 04/22/18 04/22/18 07:00 07:00 08:52 WBC 14.0 H RBC 3.26 L Hgb 9.3 L Hct 28.6 L MCV MCHC RDW Plt Count 460 H Lymph % (Auto) 13.0 L Parker % (Auto) 10.1 H Lymph # Parker # 1.4 H Baso # Seg Neutrophils % 74.4 H Seg Neuts % (Manual) Lymphocytes % (Manual) Monocytes % (Manual) Nucleated RBC % Seg Neutrophils # 10.4 H Seg Neutrophils # Man Lymphocytes # (Manual) Monocytes # (Manual) PT INR POC ABG pH POC ABG pCO2 POC ABG pO2 Sodium Potassium Chloride Carbon Dioxide BUN 19 H Creatinine 0.6 L Glucose 159 H POC Glucose 156 H Calcium Phosphorus Magnesium AST ALT Alkaline Phosphatase Lactate Dehydrogenase C-Reactive Protein Total Protein Albumin Urine WBC (Auto) Miscellaneous Test 04/22/18 04/22/1804/22/18 12:34 16:20 21:42 WBC RBC Hgb Hct MCV MCHC RDW Plt Count Lymph % (Auto) Parker % (Auto) Lymph # Parker # Baso # Seg Neutrophils % Seg Neuts % (Manual) Lymphocytes % (Manual) Monocytes % (Manual) Nucleated RBC % Seg Neutrophils # Seg Neutrophils # Man Lymphocytes # (Manual) Monocytes # (Manual) PT INR POC ABG pH POC ABG pCO2 POC ABG pO2 Sodium Potassium Chloride Carbon Dioxide BUN Creatinine Glucose POC Glucose 150 H 148 H 134 H Calcium Phosphorus Magnesium AST ALT Alkaline Phosphatase Lactate Dehydrogenase C-Reactive Protein Total Protein Albumin Urine WBC (Auto) Miscellaneous Test 04/23/18 04/23/18 04/23/18 05:45 05:45 08:45 WBC 12.5 H RBC 3.41 L Hgb 9.6 L Hct 29.6 L MCV MCHC RDW Plt Count 441 H Lymph % (Auto) Parker % (Auto) 11.3 H Lymph # Parker # 1.4 H Baso # Seg Neutrophils % 70.2 H Seg Neuts % (Manual) Lymphocytes % (Manual) Monocytes % (Manual) Nucleated RBC % Seg Neutrophils # 9.0 H Seg Neutrophils # Man Lymphocytes # (Manual) Monocytes # (Manual) PT INR POC ABG pH POC ABG pCO2 POC ABG pO2 Sodium Potassium Chloride Carbon Dioxide BUN 19 H Creatinine 0.6 L Glucose 119 H POC Glucose 154 H Calcium Phosphorus Magnesium 2.40 H AST ALT Alkaline Phosphatase Lactate Dehydrogenase C-Reactive Protein Total Protein Albumin Urine WBC (Auto) Miscellaneous Test 04/23/18 04/23/18 04/24/18 11:45 22:09 07:26 WBC RBC Hgb Hct MCV MCHC RDW Plt Count Lymph % (Auto) Parker % (Auto) Lymph # Parker # Baso # Seg Neutrophils % Seg Neuts % (Manual) Lymphocytes % (Manual) Monocytes % (Manual) Nucleated RBC % Seg Neutrophils # Seg Neutrophils # Man Lymphocytes # (Manual) Monocytes # (Manual) PT INR POC ABG pH POC ABG pCO2 POC ABG pO2 Sodium Potassium Chloride Carbon Dioxide BUN Creatinine Glucose POC Glucose 132 H 113 H 164 H Calcium Phosphorus Magnesium AST ALT Alkaline Phosphatase Lactate Dehydrogenase C-Reactive Protein Total Protein Albumin Urine WBC (Auto) Miscellaneous Test 04/24/18 04/24/18 04/24/18 08:30 08:30 11:27 WBC 14.4 H RBC 3.30 L Hgb 9.6 L Hct 28.4 L MCV MCHC RDW Plt Count Lymph % (Auto) 12.8 L Parker % (Auto) 9.1 H Lymph # Parker # 1.3 H Baso # 0.2 H Seg Neutrophils % 76.4 H Seg Neuts % (Manual) Lymphocytes % (Manual) Monocytes % (Manual) Nucleated RBC % Seg Neutrophils # 11.0 H Seg Neutrophils # Man Lymphocytes # (Manual) Monocytes # (Manual) PT INR POC ABG pH POC ABG pCO2 POC ABG pO2 Sodium Potassium Chloride Carbon Dioxide BUN 18 H Creatinine Glucose 155 H POC Glucose 133 H Calcium Phosphorus Magnesium AST ALT Alkaline Phosphatase Lactate Dehydrogenase C-Reactive Protein Total Protein Albumin Urine WBC (Auto) Miscellaneous Test 04/24/18 04/24/18 04/25/18 16:32 22:17 06:16 WBC RBC Hgb Hct MCV MCHC RDW Plt Count Lymph % (Auto) Parker % (Auto) Lymph # Parker # Baso # Seg Neutrophils % Seg Neuts % (Manual) Lymphocytes % (Manual) Monocytes % (Manual) Nucleated RBC % Seg Neutrophils # Seg Neutrophils # Man Lymphocytes # (Manual) Monocytes # (Manual) PT INR POC ABG pH POC ABG pCO2 POC ABG pO2 Sodium Potassium Chloride Carbon Dioxide BUN Creatinine Glucose POC Glucose 132 H 124 H 133 H Calcium Phosphorus Magnesium AST ALT Alkaline Phosphatase Lactate Dehydrogenase C-Reactive Protein Total Protein Albumin Urine WBC (Auto) Miscellaneous Test 04/25/18 04/25/18 04/25/18 07:39 11:10 11:31 WBC 11.3 H RBC 3.41 L Hgb 9.8 L Hct 29.5 L MCV MCHC RDW Plt Count Lymph % (Auto) 12.3 L Parker % (Auto) 9.0 H Lymph # Parker # 1.0 H Baso # Seg Neutrophils % 77.3 H Seg Neuts % (Manual) Lymphocytes % (Manual) Monocytes % (Manual) Nucleated RBC % Seg Neutrophils # 8.7 H Seg Neutrophils # Man Lymphocytes # (Manual) Monocytes # (Manual) PT INR POC ABG pH POC ABG pCO2 POC ABG pO2 Sodium Potassium Chloride Carbon Dioxide BUN Creatinine Glucose POC Glucose 141 H 145 H Calcium Phosphorus Magnesium AST ALT Alkaline Phosphatase Lactate Dehydrogenase C-Reactive Protein Total Protein Albumin Urine WBC (Auto) Miscellaneous Test 04/25/18 04/25/18 04/26/18 11:31 16:14 00:45 WBC RBC Hgb Hct MCV MCHC RDW Plt Count Lymph % (Auto) Parker % (Auto) Lymph # Parker # Baso # Seg Neutrophils % Seg Neuts % (Manual) Lymphocytes % (Manual) Monocytes % (Manual) Nucleated RBC % Seg Neutrophils # Seg Neutrophils # Man Lymphocytes # (Manual) Monocytes # (Manual) PT INR POC ABG pH POC ABG pCO2 POC ABG pO2 Sodium Potassium Chloride Carbon Dioxide BUN Creatinine Glucose 153 H POC Glucose 163 H 141 H Calcium Phosphorus Magnesium AST ALT Alkaline Phosphatase Lactate Dehydrogenase C-Reactive Protein Total Protein Albumin Urine WBC (Auto) Miscellaneous Test 04/26/18 04/26/18 04/26/18 06:10 06:10 06:37 WBC 14.5 H RBC 3.60 L Hgb Hct MCV MCHC RDW Plt Count Lymph % (Auto) Parker % (Auto) 9.6 H Lymph # Parker # 1.4 H Baso # 0.2 H Seg Neutrophils % 75.0 H Seg Neuts % (Manual) Lymphocytes % (Manual) Monocytes % (Manual) Nucleated RBC % Seg Neutrophils # 10.9 H Seg Neutrophils # Man Lymphocytes # (Manual) Monocytes # (Manual) PT INR POC ABG pH POC ABG pCO2 POC ABG pO2 Sodium Potassium Chloride Carbon Dioxide BUN Creatinine Glucose 138 H POC Glucose 131 H Calcium Phosphorus Magnesium AST ALT Alkaline Phosphatase Lactate Dehydrogenase C-Reactive Protein Total Protein Albumin Urine WBC (Auto) Miscellaneous Test 04/26/18 04/26/18 04/26/18 11:34 16:10 16:39 WBC RBC Hgb Hct MCV MCHC RDW Plt Count Lymph % (Auto) Parker % (Auto) Lymph # Parker # Baso # Seg Neutrophils % Seg Neuts % (Manual) Lymphocytes % (Manual) Monocytes % (Manual) Nucleated RBC % Seg Neutrophils # Seg Neutrophils # Man Lymphocytes # (Manual) Monocytes # (Manual) PT 17.2 H INR 1.33 H POC ABG pH POC ABG pCO2 POC ABG pO2 Sodium Potassium Chloride Carbon Dioxide BUN Creatinine Glucose POC Glucose 129 H Calcium Phosphorus Magnesium AST ALT Alkaline Phosphatase Lactate Dehydrogenase 266 H C-Reactive Protein Total Protein Albumin Urine WBC (Auto) Miscellaneous Test 04/26/18 04/26/18 04/27/18 16:59 22:39 05:50 WBC RBC Hgb Hct MCV MCHC RDW Plt Count Lymph % (Auto) Parker % (Auto) Lymph # Parker # Baso # Seg Neutrophils % Seg Neuts % (Manual) Lymphocytes % (Manual) Monocytes % (Manual) Nucleated RBC % Seg Neutrophils # Seg Neutrophils # Man Lymphocytes # (Manual) Monocytes # (Manual) PT INR POC ABG pH POC ABG pCO2 POC ABG pO2 Sodium Potassium Chloride 97.4 L Carbon Dioxide BUN Creatinine 0.6 L Glucose 135 H POC Glucose 145 H 187 H Calcium 8.2 L Phosphorus Magnesium AST 97 H ALT 222 H Alkaline Phosphatase 191 H Lactate Dehydrogenase C-Reactive Protein Total Protein Albumin 2.5 L Urine WBC (Auto) Miscellaneous Test 04/27/18 04/27/18 04/27/18 11:52 16:35 22:23 WBC RBC Hgb Hct MCV MCHC RDW Plt Count Lymph % (Auto) Parker % (Auto) Lymph # Parker # Baso # Seg Neutrophils % Seg Neuts % (Manual) Lymphocytes % (Manual) Monocytes % (Manual) Nucleated RBC % Seg Neutrophils # Seg Neutrophils # Man Lymphocytes # (Manual) Monocytes # (Manual) PT INR POC ABG pH POC ABG pCO2 POC ABG pO2 Sodium Potassium Chloride Carbon Dioxide BUN Creatinine Glucose POC Glucose 162 H 136 H 188 H Calcium Phosphorus Magnesium AST ALT Alkaline Phosphatase Lactate Dehydrogenase C-Reactive Protein Total Protein Albumin Urine WBC (Auto) Miscellaneous Test 04/28/18 04/28/18 04/28/18 07:06 09:15 12:11 WBC RBC Hgb Hct MCV MCHC RDW Plt Count Lymph % (Auto) Parker % (Auto) Lymph # Parker # Baso # Seg Neutrophils % Seg Neuts % (Manual) Lymphocytes % (Manual) Monocytes % (Manual) Nucleated RBC % Seg Neutrophils # Seg Neutrophils # Man Lymphocytes # (Manual) Monocytes # (Manual) PT INR POC ABG pH POC ABG pCO2 POC ABG pO2 Sodium Potassium Chloride Carbon Dioxide BUN Creatinine 0.5 L Glucose 149 H POC Glucose 160 H 107 H Calcium 8.0 L Phosphorus Magnesium AST ALT Alkaline Phosphatase Lactate Dehydrogenase C-Reactive Protein Total Protein Albumin Urine WBC (Auto) Miscellaneous Test 04/28/18 04/29/18 04/29/18 21:57 05:25 05:59 WBC RBC Hgb Hct MCV MCHC RDW Plt Count Lymph % (Auto) Parker % (Auto) Lymph # Parker # Baso # Seg Neutrophils % Seg Neuts % (Manual) Lymphocytes % (Manual) Monocytes % (Manual) Nucleated RBC % Seg Neutrophils # Seg Neutrophils # Man Lymphocytes # (Manual) Monocytes # (Manual) PT INR POC ABG pH POC ABG pCO2 POC ABG pO2 Sodium Potassium Chloride Carbon Dioxide BUN Creatinine 0.5 L Glucose 122 H POC Glucose 134 H 130 H Calcium 8.3 L Phosphorus Magnesium AST ALT Alkaline Phosphatase Lactate Dehydrogenase C-Reactive Protein Total Protein Albumin Urine WBC (Auto) Miscellaneous Test 04/29/18 04/29/18 04/29/18 12:14 17:45 22:47 WBC RBC Hgb Hct MCV MCHC RDW Plt Count Lymph % (Auto) Parker % (Auto) Lymph # Parker # Baso # Seg Neutrophils % Seg Neuts % (Manual) Lymphocytes % (Manual) Monocytes % (Manual) Nucleated RBC % Seg Neutrophils # Seg Neutrophils # Man Lymphocytes # (Manual) Monocytes # (Manual) PT INR POC ABG pH POC ABG pCO2 POC ABG pO2 Sodium Potassium Chloride Carbon Dioxide BUN Creatinine Glucose POC Glucose 171 H 142 H 317 H Calcium Phosphorus Magnesium AST ALT Alkaline Phosphatase Lactate Dehydrogenase C-Reactive Protein Total Protein Albumin Urine WBC (Auto) Miscellaneous Test 04/30/18 04/30/18 04/30/18 06:18 08:26 11:20 WBC RBC 3.16 L Hgb 9.1 L Hct 27.0 L MCV MCHC RDW Plt Count Lymph % (Auto) Parker % (Auto) 11.8 H Lymph # Parker # Baso # Seg Neutrophils % Seg Neuts % (Manual) Lymphocytes % (Manual) Monocytes % (Manual) Nucleated RBC % Seg Neutrophils # Seg Neutrophils # Man Lymphocytes # (Manual) Monocytes # (Manual) PT INR POC ABG pH POC ABG pCO2 POC ABG pO2 Sodium 135 L Potassium Chloride Carbon Dioxide 21 L BUN Creatinine 0.5 L Glucose 155 H POC Glucose 166 H Calcium Phosphorus Magnesium AST ALT Alkaline Phosphatase Lactate Dehydrogenase C-Reactive Protein Total Protein Albumin Urine WBC (Auto) Miscellaneous Test 04/30/18 04/30/18 05/01/18 12:24 18:05 02:52 WBC RBC Hgb Hct MCV MCHC RDW Plt Count Lymph % (Auto) Parker % (Auto) Lymph # Parker # Baso # Seg Neutrophils % Seg Neuts % (Manual) Lymphocytes % (Manual) Monocytes % (Manual) Nucleated RBC % Seg Neutrophils # Seg Neutrophils # Man Lymphocytes # (Manual) Monocytes # (Manual) PT INR POC ABG pH POC ABG pCO2 POC ABG pO2 Sodium Potassium Chloride Carbon Dioxide BUN Creatinine Glucose POC Glucose 176 H 147 H 132 H Calcium Phosphorus Magnesium AST ALT Alkaline Phosphatase Lactate Dehydrogenase C-Reactive Protein Total Protein Albumin Urine WBC (Auto) Miscellaneous Test 05/01/18 05/02/18 05/02/18 04:00 05:50 11:51 WBC RBC Hgb Hct MCV MCHC RDW Plt Count Lymph % (Auto) Parker % (Auto) Lymph # Parker # Baso # Seg Neutrophils % Seg Neuts % (Manual) Lymphocytes % (Manual) Monocytes % (Manual) Nucleated RBC % Seg Neutrophils # Seg Neutrophils # Man Lymphocytes # (Manual) Monocytes # (Manual) PT INR POC ABG pH POC ABG pCO2 POC ABG pO2 Sodium 134 L Potassium Chloride Carbon Dioxide BUN Creatinine 0.6 L 0.6 L Glucose 101 H 122 H POC Glucose 215 H Calcium Phosphorus Magnesium AST ALT Alkaline Phosphatase Lactate Dehydrogenase C-Reactive Protein Total Protein Albumin Urine WBC (Auto) Miscellaneous Test 05/02/18 05/03/18 05/03/18 17:40 00:58 06:10 WBC RBC Hgb Hct MCV MCHC RDW Plt Count Lymph % (Auto) Parker % (Auto) Lymph # Parker # Baso # Seg Neutrophils % Seg Neuts % (Manual) Lymphocytes % (Manual) Monocytes % (Manual) Nucleated RBC % Seg Neutrophils # Seg Neutrophils # Man Lymphocytes # (Manual) Monocytes # (Manual) PT INR POC ABG pH POC ABG pCO2 POC ABG pO2 Sodium Potassium Chloride Carbon Dioxide BUN Creatinine Glucose POC Glucose 142 H 135 H 107 H Calcium Phosphorus Magnesium AST ALT Alkaline Phosphatase Lactate Dehydrogenase C-Reactive Protein Total Protein Albumin Urine WBC (Auto) Miscellaneous Test 05/03/18 05/03/18 05/03/18 08:01 16:44 17:08 WBC RBC 3.27 L Hgb 9.3 L Hct 27.8 L MCV MCHC RDW Plt Count Lymph % (Auto) Parker % (Auto) 11.9 H Lymph # Parker # 1.0 H Baso # Seg Neutrophils % Seg Neuts % (Manual) Lymphocytes % (Manual) Monocytes % (Manual) Nucleated RBC % Seg Neutrophils # Seg Neutrophils # Man Lymphocytes # (Manual) Monocytes # (Manual) PT INR POC ABG pH POC ABG pCO2 POC ABG pO2 Sodium Potassium Chloride Carbon Dioxide BUN Creatinine 0.6 L Glucose 128 H POC Glucose 107 H Calcium Phosphorus Magnesium AST ALT Alkaline Phosphatase Lactate Dehydrogenase C-Reactive Protein Total Protein Albumin Urine WBC (Auto) Miscellaneous Test 05/03/18 05/04/18 05/04/18 23:47 06:01 06:37 WBC RBC Hgb Hct MCV MCHC RDW Plt Count Lymph % (Auto) Parker % (Auto) Lymph # Parker # Baso # Seg Neutrophils % Seg Neuts % (Manual) Lymphocytes % (Manual) Monocytes % (Manual) Nucleated RBC % Seg Neutrophils # Seg Neutrophils # Man Lymphocytes # (Manual) Monocytes # (Manual) PT INR POC ABG pH POC ABG pCO2 POC ABG pO2 Sodium Potassium Chloride Carbon Dioxide BUN Creatinine 0.6 L Glucose 140 H POC Glucose 149 H 140 H Calcium 8.1 L Phosphorus Magnesium AST 74 H ALT 169 H Alkaline Phosphatase 203 H Lactate Dehydrogenase C-Reactive Protein Total Protein Albumin 2.5 L Urine WBC (Auto) Miscellaneous Test 05/04/18 11:51 WBC RBC Hgb Hct MCV MCHC RDW Plt Count Lymph % (Auto) Parker % (Auto) Lymph # Parker # Baso # Seg Neutrophils % Seg Neuts % (Manual) Lymphocytes % (Manual) Monocytes % (Manual) Nucleated RBC % Seg Neutrophils # Seg Neutrophils # Man Lymphocytes # (Manual) Monocytes # (Manual) PT INR POC ABG pH POC ABG pCO2 POC ABG pO2 Sodium Potassium Chloride Carbon Dioxide BUN Creatinine Glucose POC Glucose 110 H Calcium Phosphorus Magnesium AST ALT Alkaline Phosphatase Lactate Dehydrogenase C-Reactive Protein Total Protein Albumin Urine WBC (Auto) Miscellaneous Test Allied health notes reviewed: nursing
--- NOTE | 2018-05-04 18:50 | Progress Note ---
Assessment and Plan Persistent leak. GI feels that this leak would better be managed at [place]. Will try and arrange patient transfer to [place] for stent placement. Subjective Patient Reports: Positive: diarrhea (Patient having diarrhea after gastrographin study. Otherwise feeling okay.) Objective Vital Signs - 12hr 05/04/18 05/04/18 05/04/18 07:45 07:55 08:00 Temperature 99 F Pulse Rate 96 H Pulse Rate [ 96 H 94 H Anterior Bilateral] Respiratory 18 Rate Respiratory 20 20 Rate [Anterior Bilateral] Blood Pressure Blood Pressure 139/75 [Left] O2 Sat by Pulse 94 Oximetry 05/04/18 05/04/18 11:40 15:40 Temperature 98.4 F 98.9 F Pulse Rate 91 H 94 H Pulse Rate [ Anterior Bilateral] Respiratory 18 18 Rate Respiratory Rate [Anterior Bilateral] Blood Pressure 135/69 149/72 Blood Pressure [Left] O2 Sat by Pulse 96 97 Oximetry - General physical appearance no distress - Abdomen soft, bowel sounds normal (Drainage from leak following ugi series is controlled by drains, however leak persists despite this course of conservative management) - Labs 05/03/18 17:08 05/04/18 06:01 Diabetes panel 05/04/18 Range/Units 06:01 Sodium 138 (137-145) mmol/L Potassium 3.8 (3.6-5.0) mmol/L Chloride 99.8 (98-107) mmol/L Carbon Dioxide 24 (22-30) mmol/L BUN 11 (7-17) mg/dL Creatinine 0.6 L (0.7-1.2) mg/dL Glucose 140 H (65-100) mg/dL Calcium 8.1 L (8.4-10.2) mg/dL AST 74 H (5-40) units/L ALT 169 H (7-56) units/L Alkaline Phosphatase 203 H (35-129) units/L Total Protein 6.7 (6.3-8.2) g/dL Albumin 2.5 L (3.9-5) g/dL Calcium panel 05/04/18 Range/Units 06:01 Calcium 8.1 L (8.4-10.2) mg/dL Phosphorus 3.70 (2.5-4.5) mg/dL Albumin 2.5 L (3.9-5) g/dL Pituitary panel 05/04/18 Range/Units 06:01 Sodium 138 (137-145) mmol/L Potassium 3.8 (3.6-5.0) mmol/L Chloride 99.8 (98-107) mmol/L Carbon Dioxide 24 (22-30) mmol/L BUN 11 (7-17) mg/dL Creatinine 0.6 L (0.7-1.2) mg/dL Glucose 140 H (65-100) mg/dL Calcium 8.1 L (8.4-10.2) mg/dL Adrenal panel 05/04/18 Range/Units 06:01 Sodium 138 (137-145) mmol/L Potassium 3.8 (3.6-5.0) mmol/L Chloride 99.8 (98-107) mmol/L Carbon Dioxide 24 (22-30) mmol/L BUN 11 (7-17) mg/dL Creatinine 0.6 L (0.7-1.2) mg/dL Glucose 140 H (65-100) mg/dL Calcium 8.1 L (8.4-10.2) mg/dL Total Bilirubin 0.20 (0.1-1.2) mg/dL AST 74 H (5-40) units/L ALT 169 H (7-56) units/L Alkaline Phosphatase 203 H (35-129) units/L Total Protein 6.7 (6.3-8.2) g/dL Albumin 2.5 L (3.9-5) g/dL
[2018-05-04] MEDS ORDERED: TPN ADULT 2,000 ML IV SCH (20:00)
[2018-05-04] MEDS ORDERED: CATHFLO IV ONE (20:20)
[2018-05-04] MEDS: SODIUM CHLORIDE FLUSH SYRINGE 10 ML IV SCH ×2 (21:30→23:34)
[2018-05-04] MEDS: LOVENOX SUB-Q SCH (22:43)
[2018-05-04] MEDS: TYLENOL PR PRN (23:16)
[2018-05-05] MEDS ORDERED: CATHFLO IV ONE ×2 (03:07→06:30)
[2018-05-05] MEDS: NORMODYNE IV SCH ×3 (03:24→09:22)
[2018-05-05] MEDS: ZOSYN/NS 4.5GM/100ML 4.5 GM/100 ML VIAL IV SCH ×3 (03:24→17:56)
[2018-05-05] MEDS ORDERED: WATER FOR INJ (PF) ONE ×2 (04:55→06:42)
[2018-05-05] MEDS: DILAUDID IV PRN ×4 (06:58→19:26)
[2018-05-05] MEDS: PULMICORT IH SCH ×2 (07:50→20:01)
[2018-05-05] MEDS: BROVANA NEBU IH SCH ×2 (07:50→20:01)
[2018-05-05] MEDS: PROTONIX IV SCH ×2 (09:23→22:21)
[2018-05-05] MEDS: SODIUM CHLORIDE FLUSH SYRINGE 10 ML IV SCH ×2 (09:25→22:27)
[2018-05-05] MEDS: ATIVAN IV PRN ×3 (09:38→22:25)
--- NOTE | 2018-05-05 09:50 | Progress Note ---
Assessment and Plan Assessment: 1) Sepsis: intermittent fever, leukocytosis resolved as of 04/30. Etiology most likely gastric perforation/intra-abdominal collection with ongoing stomach leaks ? vs. complicated pneumonia. 2) Gastric perforation and intra-abdominal fluid collection. -S/P OR for ex lap, abdominal washout, repair of gastric perforation and placement of drains on 04/08/18. -04/07 peritoneal fluid + Serratia x 2. -04/10 abdmen cx Dianna albicans -Repeat CTA 04/09 showed no PE, however increase in left pleural effusion with dense consolidation consistent with atelectasis and a large fluid collection 14 x 4.7 cm in the left lobe of the fever with air bubbles. -CRP=52 --> 45 -procal=0.3 -Repeat CT showed large left pleural effusion, smaller left hep lobe collection and large splenic collection 4.2x6.1 cm -S/P further drain placement 04/16 cx +MSSA and Leuconostoc. 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 Recommendations: -continue zosyn and zyvox - D10/14-21 (pending resolution of collections). -add fluconazole -Will f/u Blood cx -monitor fever -GI service recommended transfer to [place] for gastric stent placement. Palmira Baron MD ID attending M [id number] Subjective Date of service: 05/05/18 Principal diagnosis: Sepsis Syndrome; Acute Hypoxemic Resp Failure; Acute Encephalopathy Interval history: Febrile yesterday. Feels very sick this morning. Have been vomiting after waking up. On TPN. Microbiology: Blood cultures: 04/07 neg 04/10 neg 04/24 ngtd 05/04 pending Fungal Blood cx 8 NG at 1 week. Peritoneal cultures: 04/07 Serratia x 2 04/10 Dianna albicans 04/16 MSSA and Leuconostoc Pleural fluid: 04/26 neg Current Antimicrobials: Zosyn 04/26 Zyvox 04/26 Previous Antimicrobials: Fluconazole 04/08-04/11 Zosyn 04/08-04/14 vanco 04/10-04/19 cefepime and flagyl 04/14-04/24 Objective - Exam Narrative Exam: General appearance: Pt in NAD. A&Ox3. Eyes: anicteric sclerae, moist conjunctivae; PERRLA HENT: NC/AT. Neck: Trachea midline; supple, no thyromegaly or lymphadenopathy Lungs: CTA. CV: S1,S2 Abdomen: Obese, Soft. 2 R sided drains, 1 mid-adominal drain and 2 L sided drains. Extremities: No peripheral edema or extremity lymphadenopathy Skin: Normal temperature, turgor and texture; no rash, ulcers or subcutaneous nodules Psych: Appropriate affect, alert and oriented to person, place and time. Neuro: alert and oriented x 3. Moving all extremities Lines: RUE PICC for TPN. - Constitutional Vitals: Vital Signs Temp Pulse Resp BP Pulse Ox 99.2 F 95 H 18 141/68 96 05/05/18 08:02 05/05/18 08:02 05/05/18 08:02 05/05/18 08:02 05/05/18 08:02 Temperature -Last 24 Hours Temperature 99.2 F Temperature 98.4 F Temperature 97.4 F Temperature 100.2 F Temperature 98.9 F Temperature 98.4 F - Labs CBC & Chem 7: 05/03/18 17:08 05/04/18 06:01 Labs: Abnormal lab results 05/04/18 05/04/18 05/04/18 Range/Units 11:51 16:43 23:36 POC Glucose 110 H 127 H 170 H (70-105)
[2018-05-05 10:05] LABS: BUN/Creatinine Ratio 20; Blood Urea Nitrogen 10 mg/dL (7-17); Calcium 8.6 mg/dL (8.4-10.2); Hemolysis Index 10
--- NOTE | 2018-05-05 10:35 | Progress Note ---
Assessment and Plan Sepsis syndrome with altered mental status in the setting of the systemic inflammatory response syndrome. Mild metabolic acidosis Perforated abdominal viscus status post exploratory laparotomy and repair. Obesity. Atypical Chest Pain Obstructive sleep apnea according to the history. Acute encephalopathy, presumably toxic metabolic. History of hypertension. Arthritis. Gastroesophageal reflux disease. Morbid obesity. Acute hypoxemic respiratory failure - increased clonidine dose to 0.2mg patch - changed labetalol to prn dosing - upper G.I. series reports persistent leaks X 2 - continue supplemental oxygen to keep sats > 90% - prn analgesia while watching for respiratory depression - to repeat CT abd/pelvis to evaluate for persistent leak +/- IR intervention - anti-infectives per ID recs (following off AB's) - continue PICC line for TPN - continue PT/OT - continue GI & VTE prophylaxis - continue bronchodilators for COPD (brovana and changed duonebs to prn) - continue BIPAP scheduled qhs for [place] with prn daytime use (encouraged improved compliance) - wound care per WCT / RN and surgeon - continue other care per attending / other consultants - SNF tentatively once cleared by surgery team ...... re-evaluate in am & prn ...35' Subjective Date of service: 05/05/18 Principal diagnosis: Sepsis Syndrome; Acute Hypoxemic Resp Failure; Acute Encephalopathy Interval history: Patient is seen today for: Sepsis Syndrome; Acute Hypoxemic Resp Failure; Acute Encephalopathy Seen and examined at bedside; 24hour events reviewed; nursing and respiratory care staff consulted; no adverse overnight events reported to me; resting in bed ; adjusted anti-hypertensive as still unable to take p.o.; no new issues otherwise Objective Vital Signs - 12hr 05/05/18 05/05/18 05/05/18 03:20 05:12 07:45 Temperature 97.4 F L 98.4 F Pulse Rate 89 90 Pulse Rate [ 72 Anterior Bilateral] Respiratory 18 18 Rate Respiratory 16 Rate [Anterior Bilateral] Blood Pressure Blood Pressure 147/80 147/77 [Left] O2 Sat by Pulse 95 99 Oximetry 05/05/18 05/05/18 05/05/18 07:52 07:55 08:02 Temperature 99.2 F Pulse Rate 95 H Pulse Rate [ 77 Anterior Bilateral] Respiratory 18 Rate Respiratory 15 Rate [Anterior Bilateral] Blood Pressure 141/68 Blood Pressure [Left] O2 Sat by Pulse 99 96 Oximetry Constitutional: no acute distress, alert Eyes: non-icteric ENT: oropharynx moist, other (no thyromegaly) Neck: supple, no lymphadenopathy, no JVD, other (large neck circumference) Effort: normal Ascultation: Bilateral: diminished breath sounds, rhonchi (scant in bases) Percussion: Left: dull (base) Cardiovascular: regular rate and rhythm, other (No R/M) Gastrointestinal: normoactive bowel sounds, soft, non-tender, non-distended, other (no palpable HSM, KRISTI drains) Integumentary: normal Extremities: no cyanosis, no edema, pulses normal, no ischemia or petechiae Neurologic: normal mental status, non-focal exam, pupils equal and round, CN II- XII normal, motor strength normal and Psychiatric: mood appropriate, affect normal CBC and BMP: 05/03/18 17:08 05/06/18 04:55 ABG, PT/INR, D-dimer: ABG POC ABG pH 7.519 (7.35-7.45) H 04/10/18 12:59 POC ABG pCO2 29.3 (35-45) L 04/10/18 12:59 POC ABG pO2 63 (80-105) L 04/10/18 12:59 POC ABG HCO3 23.9 04/10/18 12:59 POC ABG Total CO2 25 04/10/18 12:59 POC ABG O2 Sat 94 04/10/18 12:59 PT/INR, D-dimer PT 17.2 Sec. (12.2-14.9) H 04/26/18 16:39 INR 1.33 (0.87-1.13) H 04/26/18 16:39 Abnormal lab findings: Abnormal Labs 04/07/18 04/07/18 04/07/18 00:05 00:05 09:41 WBC 18.4 H 21.3 H RBC Hgb Hct MCV MCHC RDW Plt Count Lymph % (Auto) 4.5 L [place] % (Auto) Lymph # 0.8 L [place] # 1.2 H Baso # Seg Neutrophils % 88.9 H Seg Neuts % (Manual) 85.0 H Lymphocytes % (Manual) 4.0 L Monocytes % (Manual) Nucleated RBC % Seg Neutrophils # 16.4 H Seg Neutrophils # Man 18.1 H Lymphocytes # (Manual) 0.9 L Monocytes # (Manual) 1.1 H PT INR POC ABG pH POC ABG pCO2 POC ABG pO2 Sodium Potassium Chloride Carbon Dioxide BUN Creatinine Glucose 123 H POC Glucose Calcium 8.0 L Phosphorus Magnesium 1.60 L AST 59 H ALT Alkaline Phosphatase Lactate Dehydrogenase C-Reactive Protein Total Protein Albumin 2.9 L Urine WBC (Auto) Miscellaneous Test 04/07/18 04/08/18 04/08/18 09:41 00:20 10:25 WBC 19.2 H RBC Hgb Hct MCV MCHC RDW Plt Count Lymph % (Auto) 5.4 L [place] % (Auto) Lymph # 1.0 L [place] # 1.1 H Baso # Seg Neutrophils % 88.9 H Seg Neuts % (Manual) Lymphocytes % (Manual) Monocytes % (Manual) Nucleated RBC % Seg Neutrophils # 17.1 H Seg Neutrophils # Man Lymphocytes # (Manual) Monocytes # (Manual) PT INR POC ABG pH POC ABG pCO2 POC ABG pO2 Sodium Potassium 3.3 L Chloride 95.1 L Carbon Dioxide 21 L BUN Creatinine Glucose 113 H POC Glucose Calcium Phosphorus Magnesium AST ALT Alkaline Phosphatase Lactate Dehydrogenase C-Reactive Protein Total Protein Albumin 3.6 L Urine WBC (Auto) 45.0 H Miscellaneous Test 04/08/18 04/08/18 04/08/18 10:25 13:33 23:53 WBC 12.8 H RBC Hgb Hct MCV MCHC RDW Plt Count Lymph % (Auto) [place] % (Auto) Lymph # [place] # Baso # Seg Neutrophils % Seg Neuts % (Manual) 97.0 H Lymphocytes % (Manual) 2.0 L Monocytes % (Manual) Nucleated RBC % Seg Neutrophils # Seg Neutrophils # Man 12.4 H Lymphocytes # (Manual) 0.3 L Monocytes # (Manual) PT INR POC ABG pH POC ABG pCO2 POC ABG pO2 Sodium Potassium 3.5 L Chloride Carbon Dioxide BUN Creatinine Glucose 123 H POC Glucose Calcium 7.9 L Phosphorus Magnesium AST 53 H ALT Alkaline Phosphatase Lactate Dehydrogenase C-Reactive Protein 52.00 H Total Protein 6.1 L Albumin 2.7 L Urine WBC (Auto) Miscellaneous Test 04/09/18 04/09/18 04/09/18 04:20 04:20 13:38 WBC 16.2 H RBC Hgb Hct MCV MCHC RDW Plt Count Lymph % (Auto) [place] % (Auto) Lymph # [place] # Baso # Seg Neutrophils % Seg Neuts % (Manual) 89.0 H Lymphocytes % (Manual) 4.0 L Monocytes % (Manual) Nucleated RBC % Seg Neutrophils # Seg Neutrophils # Man 14.4 H Lymphocytes # (Manual) 0.6 L Monocytes # (Manual) PT INR POC ABG pH 7.494 H POC ABG pCO2 31.6 L POC ABG pO2 68 L Sodium Potassium 3.5 L Chloride Carbon Dioxide BUN Creatinine 0.6 L Glucose 117 H POC Glucose Calcium 7.9 L Phosphorus 1.50 L D Magnesium AST ALT Alkaline Phosphatase Lactate Dehydrogenase C-Reactive Protein Total Protein 5.6 L Albumin 2.9 L Urine WBC (Auto) Miscellaneous Test 04/09/18 04/09/18 04/09/18 18:25 21:45 21:45 WBC 21.3 H RBC 3.62 L Hgb Hct MCV MCHC 35 H RDW Plt Count Lymph % (Auto) [place] % (Auto) Lymph # [place] # Baso # Seg Neutrophils % Seg Neuts % (Manual) 90.0 H Lymphocytes % (Manual) 6.0 L Monocytes % (Manual) Nucleated RBC % 1.0 H Seg Neutrophils # Seg Neutrophils # Man 19.2 H Lymphocytes # (Manual) Monocytes # (Manual) 0.9 H PT INR POC ABG pH POC ABG pCO2 POC ABG pO2 Sodium Potassium Chloride Carbon Dioxide BUN 5 L Creatinine 0.5 L Glucose 134 H POC Glucose 155 H Calcium 7.9 L Phosphorus 2.20 L D Magnesium AST ALT Alkaline Phosphatase Lactate Dehydrogenase C-Reactive Protein Total Protein Albumin Urine WBC (Auto) Miscellaneous Test 04/09/18 04/10/18 04/10/18 23:38 04:07 04:07 WBC 20.2 H RBC 3.38 L Hgb 9.4 L Hct 28.9 L MCV MCHC RDW Plt Count Lymph % (Auto) [place] % (Auto) Lymph # [place] # Baso # Seg Neutrophils % Seg Neuts % (Manual) Lymphocytes % (Manual) 6.0 L Monocytes % (Manual) Nucleated RBC % Seg Neutrophils # Seg Neutrophils # Man 10.7 H Lymphocytes # (Manual) Monocytes # (Manual) PT INR POC ABG pH POC ABG pCO2 POC ABG pO2 Sodium Potassium Chloride Carbon Dioxide BUN 6 L Creatinine 0.6 L Glucose 176 H POC Glucose 160 H Calcium 7.7 L Phosphorus Magnesium AST ALT Alkaline Phosphatase Lactate Dehydrogenase C-Reactive Protein Total Protein Albumin Urine WBC (Auto) Miscellaneous Test 04/10/18 04/10/18 04/10/18 05:29 11:55 12:59 WBC RBC Hgb Hct MCV MCHC RDW Plt Count Lymph % (Auto) [place] % (Auto) Lymph # [place] # Baso # Seg Neutrophils % Seg Neuts % (Manual) Lymphocytes % (Manual) Monocytes % (Manual) Nucleated RBC % Seg Neutrophils # Seg Neutrophils # Man Lymphocytes # (Manual) Monocytes # (Manual) PT INR POC ABG pH 7.519 H POC ABG pCO2 29.3 L POC ABG pO2 63 L Sodium Potassium Chloride Carbon Dioxide BUN Creatinine Glucose POC Glucose 171 H 194 H Calcium Phosphorus Magnesium AST ALT Alkaline Phosphatase Lactate Dehydrogenase C-Reactive Protein Total Protein Albumin Urine WBC (Auto) Miscellaneous Test 04/10/18 04/10/18 04/10/18 18:11 18:28 18:28 WBC 22.7 H RBC 3.62 L Hgb Hct MCV MCHC RDW Plt Count Lymph % (Auto) [place] % (Auto) Lymph # [place] # Baso # Seg Neutrophils % Seg Neuts % (Manual) 84.0 H Lymphocytes % (Manual) 7.0 L Monocytes % (Manual) 8.0 H Nucleated RBC % Seg Neutrophils # Seg Neutrophils # Man 19.1 H Lymphocytes # (Manual) Monocytes # (Manual) 1.8 H PT INR POC ABG pH POC ABG pCO2 POC ABG pO2 Sodium Potassium Chloride Carbon Dioxide BUN Creatinine Glucose POC Glucose 118 H Calcium Phosphorus Magnesium AST ALT Alkaline Phosphatase Lactate Dehydrogenase C-Reactive Protein 45.20 H Total Protein Albumin Urine WBC (Auto) Miscellaneous Test 04/10/18 04/10/18 04/11/18 18:28 23:45 03:35 WBC 20.9 H RBC 3.54 L Hgb 10.0 L Hct MCV MCHC RDW Plt Count Lymph % (Auto) [place] % (Auto) Lymph # [place] # Baso # Seg Neutrophils % Seg Neuts % (Manual) 80.0 H Lymphocytes % (Manual) 6.0 L Monocytes % (Manual) Nucleated RBC % Seg Neutrophils # Seg Neutrophils # Man 16.7 H Lymphocytes # (Manual) Monocytes # (Manual) PT INR POC ABG pH POC ABG pCO2 POC ABG pO2 Sodium Potassium 3.5 L Chloride Carbon Dioxide BUN 5 L Creatinine 0.5 L Glucose 108 H POC Glucose 149 H Calcium 8.3 L Phosphorus Magnesium AST ALT Alkaline Phosphatase Lactate Dehydrogenase C-Reactive Protein Total Protein Albumin Urine WBC (Auto) Miscellaneous Test 04/11/18 04/11/18 04/11/18 03:35 06:17 11:29 WBC RBC Hgb Hct MCV MCHC RDW Plt Count Lymph % (Auto) [place] % (Auto) Lymph # [place] # Baso # Seg Neutrophils % Seg Neuts % (Manual) Lymphocytes % (Manual) Monocytes % (Manual) Nucleated RBC % Seg Neutrophils # Seg Neutrophils # Man Lymphocytes # (Manual) Monocytes # (Manual) PT INR POC ABG pH POC ABG pCO2 POC ABG pO2 Sodium Potassium Chloride Carbon Dioxide BUN Creatinine 0.5 L Glucose 143 H POC Glucose 155 H 158 H Calcium 8.2 L Phosphorus Magnesium AST ALT Alkaline Phosphatase Lactate Dehydrogenase C-Reactive Protein Total Protein 6.0 L Albumin 2.2 L Urine WBC (Auto) Miscellaneous Test 04/11/18 04/11/18 04/12/18 18:13 23:51 05:29 WBC RBC Hgb Hct MCV MCHC RDW Plt Count Lymph % (Auto) [place] % (Auto) Lymph # [place] # Baso # Seg Neutrophils % Seg Neuts % (Manual) Lymphocytes % (Manual) Monocytes % (Manual) Nucleated RBC % Seg Neutrophils # Seg Neutrophils # Man Lymphocytes # (Manual) Monocytes # (Manual) PT INR POC ABG pH POC ABG pCO2 POC ABG pO2 Sodium Potassium Chloride Carbon Dioxide BUN Creatinine Glucose POC Glucose 135 H 143 H 150 H Calcium Phosphorus Magnesium AST ALT Alkaline Phosphatase Lactate Dehydrogenase C-Reactive Protein Total Protein Albumin Urine WBC (Auto) Miscellaneous Test 04/12/18 04/12/18 04/13/18 05:40 05:40 00:32 WBC 18.0 H RBC 3.34 L Hgb 9.5 L Hct 28.9 L MCV MCHC RDW Plt Count Lymph % (Auto) 7.4 L [place] % (Auto) 10.8 H Lymph # [place] # 1.9 H Baso # Seg Neutrophils % 81.1 H Seg Neuts % (Manual) Lymphocytes % (Manual) Monocytes % (Manual) Nucleated RBC % Seg Neutrophils # 14.6 H Seg Neutrophils # Man Lymphocytes # (Manual) Monocytes # (Manual) PT INR POC ABG pH POC ABG pCO2 POC ABG pO2 Sodium Potassium Chloride 107.7 H Carbon Dioxide 21 L BUN Creatinine 0.6 L Glucose 140 H POC Glucose 144 H Calcium Phosphorus Magnesium AST ALT Alkaline Phosphatase Lactate Dehydrogenase C-Reactive Protein Total Protein Albumin Urine WBC (Auto) Miscellaneous Test 04/13/18 04/13/18 04/13/18 04:20 04:20 04:20 WBC 18.1 H RBC 3.52 L Hgb 9.8 L Hct 30.1 L MCV MCHC RDW Plt Count Lymph % (Auto) 11.1 L [place] % (Auto) 13.6 H Lymph # [place] # 2.5 H Baso # Seg Neutrophils % 74.4 H Seg Neuts % (Manual) Lymphocytes % (Manual) Monocytes % (Manual) Nucleated RBC % Seg Neutrophils # 13.4 H Seg Neutrophils # Man Lymphocytes # (Manual) Monocytes # (Manual) PT INR POC ABG pH POC ABG pCO2 POC ABG pO2 Sodium Potassium Chloride Carbon Dioxide BUN Creatinine 0.5 L Glucose 142 H POC Glucose Calcium Phosphorus Magnesium AST ALT Alkaline Phosphatase Lactate Dehydrogenase C-Reactive Protein 29.60 H Total Protein Albumin Urine WBC (Auto) Miscellaneous Test 04/13/18 04/13/18 04/13/18 05:35 13:37 23:50 WBC RBC Hgb Hct MCV MCHC RDW Plt Count Lymph % (Auto) [place] % (Auto) Lymph # [place] # Baso # Seg Neutrophils % Seg Neuts % (Manual) Lymphocytes % (Manual) Monocytes % (Manual) Nucleated RBC % Seg Neutrophils # Seg Neutrophils # Man Lymphocytes # (Manual) Monocytes # (Manual) PT INR POC ABG pH POC ABG pCO2 POC ABG pO2 Sodium Potassium Chloride Carbon Dioxide BUN Creatinine Glucose POC Glucose 142 H 160 H Calcium Phosphorus Magnesium AST ALT Alkaline Phosphatase Lactate Dehydrogenase C-Reactive Protein Total Protein Albumin Urine WBC (Auto) Miscellaneous Test Flexitest 1 H 04/14/18 04/14/18 04/14/18 04:00 04:00 05:29 WBC 22.1 H RBC 3.59 L Hgb 9.9 L Hct MCV MCHC RDW Plt Count Lymph % (Auto) [place] % (Auto) Lymph # [place] # Baso # Seg Neutrophils % Seg Neuts % (Manual) 73.0 H Lymphocytes % (Manual) 9.0 L Monocytes % (Manual) 11.0 H Nucleated RBC % Seg Neutrophils # Seg Neutrophils # Man 16.1 H Lymphocytes # (Manual) Monocytes # (Manual) 2.4 H PT INR POC ABG pH POC ABG pCO2 POC ABG pO2 Sodium Potassium Chloride Carbon Dioxide BUN Creatinine Glucose 155 H POC Glucose 133 H Calcium Phosphorus Magnesium 2.50 H AST ALT Alkaline Phosphatase Lactate Dehydrogenase C-Reactive Protein Total Protein Albumin Urine WBC (Auto) Miscellaneous Test 04/14/18 04/14/18 04/14/18 12:47 16:01 23:42 WBC RBC Hgb Hct MCV MCHC RDW Plt Count Lymph % (Auto) [place] % (Auto) Lymph # [place] # Baso # Seg Neutrophils % Seg Neuts % (Manual) Lymphocytes % (Manual) Monocytes % (Manual) Nucleated RBC % Seg Neutrophils # Seg Neutrophils # Man Lymphocytes # (Manual) Monocytes # (Manual) PT INR POC ABG pH POC ABG pCO2 POC ABG pO2 Sodium Potassium Chloride Carbon Dioxide BUN Creatinine Glucose POC Glucose 183 H 153 H 172 H Calcium Phosphorus Magnesium AST ALT Alkaline Phosphatase Lactate Dehydrogenase C-Reactive Protein Total Protein Albumin Urine WBC (Auto) Miscellaneous Test 04/15/18 04/15/18 04/15/18 04:42 04:42 05:49 WBC 21.5 H RBC 3.37 L Hgb 9.4 L Hct 28.9 L MCV MCHC RDW Plt Count 490 H Lymph % (Auto) [place] % (Auto) Lymph # [place] # Baso # Seg Neutrophils % Seg Neuts % (Manual) 77.0 H Lymphocytes % (Manual) 7.0 L Monocytes % (Manual) 10.0 H Nucleated RBC % Seg Neutrophils # Seg Neutrophils # Man 16.6 H Lymphocytes # (Manual) Monocytes # (Manual) 2.2 H PT INR POC ABG pH POC ABG pCO2 POC ABG pO2 Sodium Potassium 3.4 L Chloride 107.5 H Carbon Dioxide 21 L BUN Creatinine Glucose 165 H POC Glucose 147 H Calcium 8.0 L Phosphorus Magnesium 2.40 H AST ALT Alkaline Phosphatase Lactate Dehydrogenase C-Reactive Protein Total Protein Albumin Urine WBC (Auto) Miscellaneous Test 04/15/18 04/15/18 04/16/18 11:17 17:35 00:26 WBC RBC Hgb Hct MCV MCHC RDW Plt Count Lymph % (Auto) [place] % (Auto) Lymph # [place] # Baso # Seg Neutrophils % Seg Neuts % (Manual) Lymphocytes % (Manual) Monocytes % (Manual) Nucleated RBC % Seg Neutrophils # Seg Neutrophils # Man Lymphocytes # (Manual) Monocytes # (Manual) PT INR POC ABG pH POC ABG pCO2 POC ABG pO2 Sodium Potassium Chloride Carbon Dioxide BUN Creatinine Glucose POC Glucose 119 H 169 H 176 H Calcium Phosphorus Magnesium AST ALT Alkaline Phosphatase Lactate Dehydrogenase C-Reactive Protein Total Protein Albumin Urine WBC (Auto) Miscellaneous Test 04/16/18 04/16/18 04/16/18 06:12 06:19 06:21 WBC 20.7 H RBC 3.25 L Hgb 9.0 L Hct MCV MCHC 29 L RDW 16.7 H Plt Count 498 H Lymph % (Auto) [place] % (Auto) Lymph # [place] # Baso # Seg Neutrophils % Seg Neuts % (Manual) 88.0 H Lymphocytes % (Manual) 5.0 L Monocytes % (Manual) Nucleated RBC % Seg Neutrophils # Seg Neutrophils # Man 18.2 H Lymphocytes # (Manual) 1.0 L Monocytes # (Manual) PT INR POC ABG pH POC ABG pCO2 POC ABG pO2 Sodium Potassium Chloride Carbon Dioxide BUN Creatinine Glucose POC Glucose > 500 H 493 H Calcium Phosphorus Magnesium AST ALT Alkaline Phosphatase Lactate Dehydrogenase C-Reactive Protein Total Protein Albumin Urine WBC (Auto) Miscellaneous Test 04/16/18 04/16/18 04/16/18 06:24 08:52 14:05 WBC RBC Hgb Hct MCV MCHC RDW Plt Count Lymph % (Auto) [place] % (Auto) Lymph # [place] # Baso # Seg Neutrophils % Seg Neuts % (Manual) Lymphocytes % (Manual) Monocytes % (Manual) Nucleated RBC % Seg Neutrophils # Seg Neutrophils # Man Lymphocytes # (Manual) Monocytes # (Manual) PT INR POC ABG pH POC ABG pCO2 POC ABG pO2 Sodium Potassium 3.4 L Chloride Carbon Dioxide BUN Creatinine 0.5 L Glucose 166 H POC Glucose 173 H 196 H Calcium 8.2 L Phosphorus Magnesium AST ALT Alkaline Phosphatase Lactate Dehydrogenase C-Reactive Protein Total Protein Albumin Urine WBC (Auto) Miscellaneous Test 04/16/18 04/17/18 04/17/18 17:17 00:06 04:50 WBC 16.0 H RBC 3.12 L Hgb 8.7 L Hct 29.0 L MCV MCHC RDW 16.2 H Plt Count 455 H Lymph % (Auto) 9.4 L [place] % (Auto) 7.7 H Lymph # [place] # 1.2 H Baso # Seg Neutrophils % 81.9 H Seg Neuts % (Manual) Lymphocytes % (Manual) Monocytes % (Manual) Nucleated RBC % Seg Neutrophils # 13.1 H Seg Neutrophils # Man Lymphocytes # (Manual) Monocytes # (Manual) PT INR POC ABG pH POC ABG pCO2 POC ABG pO2 Sodium Potassium Chloride Carbon Dioxide BUN Creatinine Glucose POC Glucose 189 H 190 H Calcium Phosphorus Magnesium AST ALT Alkaline Phosphatase Lactate Dehydrogenase C-Reactive Protein Total Protein Albumin Urine WBC (Auto) Miscellaneous Test 04/17/18 04/17/18 04/17/18 04:50 05:38 07:17 WBC RBC Hgb Hct MCV MCHC RDW Plt Count Lymph % (Auto) [place] % (Auto) Lymph # [place] # Baso # Seg Neutrophils % Seg Neuts % (Manual) Lymphocytes % (Manual) Monocytes % (Manual) Nucleated RBC % Seg Neutrophils # Seg Neutrophils # Man Lymphocytes # (Manual) Monocytes # (Manual) PT INR POC ABG pH POC ABG pCO2 POC ABG pO2 Sodium 136 L Potassium 3.4 L Chloride 96.9 L Carbon Dioxide BUN Creatinine 0.6 L Glucose 167 H POC Glucose 190 H Calcium 7.6 L 8.0 L Phosphorus Magnesium AST ALT Alkaline Phosphatase Lactate Dehydrogenase C-Reactive Protein Total Protein Albumin Urine WBC (Auto) Miscellaneous Test 04/17/18 04/17/18 04/17/18 11:50 18:37 23:53 WBC RBC Hgb Hct MCV MCHC RDW Plt Count Lymph % (Auto) [place] % (Auto) Lymph # [place] # Baso # Seg Neutrophils % Seg Neuts % (Manual) Lymphocytes % (Manual) Monocytes % (Manual) Nucleated RBC % Seg Neutrophils # Seg Neutrophils # Man Lymphocytes # (Manual) Monocytes # (Manual) PT INR POC ABG pH POC ABG pCO2 POC ABG pO2 Sodium Potassium Chloride Carbon Dioxide BUN Creatinine Glucose POC Glucose 163 H 167 H 142 H Calcium Phosphorus Magnesium AST ALT Alkaline Phosphatase Lactate Dehydrogenase C-Reactive Protein Total Protein Albumin Urine WBC (Auto) Miscellaneous Test 04/18/18 04/18/18 04/18/18 05:59 10:05 12:25 WBC RBC Hgb Hct MCV MCHC RDW Plt Count Lymph % (Auto) [place] % (Auto) Lymph # [place] # Baso # Seg Neutrophils % Seg Neuts % (Manual) Lymphocytes % (Manual) Monocytes % (Manual) Nucleated RBC % Seg Neutrophils # Seg Neutrophils # Man Lymphocytes # (Manual) Monocytes # (Manual) PT INR POC ABG pH POC ABG pCO2 POC ABG pO2 Sodium Potassium Chloride Carbon Dioxide BUN Creatinine 0.5 L Glucose 127 H POC Glucose 144 H 171 H Calcium 8.2 L Phosphorus Magnesium AST ALT Alkaline Phosphatase Lactate Dehydrogenase C-Reactive Protein Total Protein Albumin Urine WBC (Auto) Miscellaneous Test 04/18/18 04/18/18 04/19/18 14:54 17:56 00:15 WBC 18.2 H RBC 2.95 L Hgb 8.9 L Hct 29.0 L MCV 98 H MCHC RDW 16.9 H Plt Count Lymph % (Auto) 9.2 L [place] % (Auto) Lymph # [place] # 1.2 H Baso # Seg Neutrophils % 82.7 H Seg Neuts % (Manual) Lymphocytes % (Manual) Monocytes % (Manual) Nucleated RBC % Seg Neutrophils # 15.1 H Seg Neutrophils # Man Lymphocytes # (Manual) Monocytes # (Manual) PT INR POC ABG pH POC ABG pCO2 POC ABG pO2 Sodium Potassium Chloride Carbon Dioxide BUN Creatinine Glucose POC Glucose 169 H 148 H Calcium Phosphorus Magnesium AST ALT Alkaline Phosphatase Lactate Dehydrogenase C-Reactive Protein Total Protein Albumin Urine WBC (Auto) Miscellaneous Test 04/19/18 04/19/18 04/19/18 05:21 08:00 08:00 WBC 18.7 H RBC Hgb Hct MCV MCHC RDW Plt Count 531 H Lymph % (Auto) [place] % (Auto) Lymph # [place] # Baso # Seg Neutrophils % Seg Neuts % (Manual) Lymphocytes % (Manual) Monocytes % (Manual) Nucleated RBC % Seg Neutrophils # Seg Neutrophils # Man Lymphocytes # (Manual) Monocytes # (Manual) PT INR POC ABG pH POC ABG pCO2 POC ABG pO2 Sodium Potassium Chloride Carbon Dioxide BUN 18 H Creatinine 0.5 L Glucose 141 H POC Glucose 146 H Calcium Phosphorus Magnesium AST ALT 76 H Alkaline Phosphatase 142 H Lactate Dehydrogenase C-Reactive Protein Total Protein Albumin 2.4 L Urine WBC (Auto) Miscellaneous Test 04/19/18 04/19/18 04/20/18 12:12 17:41 00:21 WBC RBC Hgb Hct MCV MCHC RDW Plt Count Lymph % (Auto) [place] % (Auto) Lymph # [place] # Baso # Seg Neutrophils % Seg Neuts % (Manual) Lymphocytes % (Manual) Monocytes % (Manual) Nucleated RBC % Seg Neutrophils # Seg Neutrophils # Man Lymphocytes # (Manual) Monocytes # (Manual) PT INR POC ABG pH POC ABG pCO2 POC ABG pO2 Sodium Potassium Chloride Carbon Dioxide BUN Creatinine Glucose POC Glucose 161 H 134 H 159 H Calcium Phosphorus Magnesium AST ALT Alkaline Phosphatase Lactate Dehydrogenase C-Reactive Protein Total Protein Albumin Urine WBC (Auto) Miscellaneous Test 04/20/18 04/20/18 04/20/18 04:00 04:00 07:05 WBC 16.5 H RBC 3.51 L Hgb 9.9 L Hct 30.1 L MCV MCHC RDW Plt Count 530 H Lymph % (Auto) 10.7 L [place] % (Auto) 9.2 H Lymph # [place] # 1.5 H Baso # Seg Neutrophils % 78.5 H Seg Neuts % (Manual) Lymphocytes % (Manual) Monocytes % (Manual) Nucleated RBC % Seg Neutrophils # 13.0 H Seg Neutrophils # Man Lymphocytes # (Manual) Monocytes # (Manual) PT INR POC ABG pH POC ABG pCO2 POC ABG pO2 Sodium Potassium Chloride Carbon Dioxide BUN 19 H Creatinine 0.6 L Glucose 185 H POC Glucose 166 H Calcium Phosphorus Magnesium AST ALT Alkaline Phosphatase Lactate Dehydrogenase C-Reactive Protein Total Protein Albumin Urine WBC (Auto) Miscellaneous Test 04/20/18 04/20/18 04/21/18 12:59 19:06 00:17 WBC RBC Hgb Hct MCV MCHC RDW Plt Count Lymph % (Auto) [place] % (Auto) Lymph # [place] # Baso # Seg Neutrophils % Seg Neuts % (Manual) Lymphocytes % (Manual) Monocytes % (Manual) Nucleated RBC % Seg Neutrophils # Seg Neutrophils # Man Lymphocytes # (Manual) Monocytes # (Manual) PT INR POC ABG pH POC ABG pCO2 POC ABG pO2 Sodium Potassium Chloride Carbon Dioxide BUN Creatinine Glucose POC Glucose 166 H 170 H 178 H Calcium Phosphorus Magnesium AST ALT Alkaline Phosphatase Lactate Dehydrogenase C-Reactive Protein Total Protein Albumin Urine WBC (Auto) Miscellaneous Test 04/21/18 04/21/18 04/21/18 06:15 06:15 06:39 WBC 15.1 H RBC 3.48 L Hgb 9.8 L Hct 30.2 L MCV MCHC RDW Plt Count 499 H Lymph % (Auto) [place] % (Auto) 8.7 H Lymph # [place] # 1.3 H Baso # 0.2 H Seg Neutrophils % 74.7 H Seg Neuts % (Manual) Lymphocytes % (Manual) Monocytes % (Manual) Nucleated RBC % Seg Neutrophils # 11.3 H Seg Neutrophils # Man Lymphocytes # (Manual) Monocytes # (Manual) PT INR POC ABG pH POC ABG pCO2 POC ABG pO2 Sodium Potassium Chloride 108.8 H Carbon Dioxide BUN 18 H Creatinine 0.6 L Glucose 157 H POC Glucose 153 H Calcium 8.0 L Phosphorus Magnesium AST ALT Alkaline Phosphatase Lactate Dehydrogenase C-Reactive Protein Total Protein Albumin Urine WBC (Auto) Miscellaneous Test 04/21/18 04/21/18 04/21/18 11:49 17:07 22:07 WBC RBC Hgb Hct MCV MCHC RDW Plt Count Lymph % (Auto) [place] % (Auto) Lymph # [place] # Baso # Seg Neutrophils % Seg Neuts % (Manual) Lymphocytes % (Manual) Monocytes % (Manual) Nucleated RBC % Seg Neutrophils # Seg Neutrophils # Man Lymphocytes # (Manual) Monocytes # (Manual) PT INR POC ABG pH POC ABG pCO2 POC ABG pO2 Sodium Potassium Chloride Carbon Dioxide BUN Creatinine Glucose POC Glucose 184 H 163 H 169 H Calcium Phosphorus Magnesium AST ALT Alkaline Phosphatase Lactate Dehydrogenase C-Reactive Protein Total Protein Albumin Urine WBC (Auto) Miscellaneous Test 04/22/18 04/22/18 04/22/18 07:00 07:00 08:52 WBC 14.0 H RBC 3.26 L Hgb 9.3 L Hct 28.6 L MCV MCHC RDW Plt Count 460 H Lymph % (Auto) 13.0 L [place] % (Auto) 10.1 H Lymph # [place] # 1.4 H Baso # Seg Neutrophils % 74.4 H Seg Neuts % (Manual) Lymphocytes % (Manual) Monocytes % (Manual) Nucleated RBC % Seg Neutrophils # 10.4 H Seg Neutrophils # Man Lymphocytes # (Manual) Monocytes # (Manual) PT INR POC ABG pH POC ABG pCO2 POC ABG pO2 Sodium Potassium Chloride Carbon Dioxide BUN 19 H Creatinine 0.6 L Glucose 159 H POC Glucose 156 H Calcium Phosphorus Magnesium AST ALT Alkaline Phosphatase Lactate Dehydrogenase C-Reactive Protein Total Protein Albumin Urine WBC (Auto) Miscellaneous Test 04/22/18 04/22/18 04/22/18 12:34 16:20 21:42 WBC RBC Hgb Hct MCV MCHC RDW Plt Count Lymph % (Auto) [place] % (Auto) Lymph # [place] # Baso # Seg Neutrophils % Seg Neuts % (Manual) Lymphocytes % (Manual) Monocytes % (Manual) Nucleated RBC % Seg Neutrophils # Seg Neutrophils # Man Lymphocytes # (Manual) Monocytes # (Manual) PT INR POC ABG pH POC ABG pCO2 POC ABG pO2 Sodium Potassium Chloride Carbon Dioxide BUN Creatinine Glucose POC Glucose 150 H 148 H 134 H Calcium Phosphorus Magnesium AST ALT Alkaline Phosphatase Lactate Dehydrogenase C-Reactive Protein Total Protein Albumin Urine WBC (Auto) Miscellaneous Test 04/23/18 04/23/18 04/23/18 05:45 05:45 08:45 WBC 12.5 H RBC 3.41 L Hgb 9.6 L Hct 29.6 L MCV MCHC RDW Plt Count 441 H Lymph % (Auto) [place] % (Auto) 11.3 H Lymph # [place] # 1.4 H Baso # Seg Neutrophils % 70.2 H Seg Neuts % (Manual) Lymphocytes % (Manual) Monocytes % (Manual) Nucleated RBC % Seg Neutrophils # 9.0 H Seg Neutrophils # Man Lymphocytes # (Manual) Monocytes # (Manual) PT INR POC ABG pH POC ABG pCO2 POC ABG pO2 Sodium Potassium Chloride Carbon Dioxide BUN 19 H Creatinine 0.6 L Glucose 119 H POC Glucose 154 H Calcium Phosphorus Magnesium 2.40 H AST ALT Alkaline Phosphatase Lactate Dehydrogenase C-Reactive Protein Total Protein Albumin Urine WBC (Auto) Miscellaneous Test 04/23/18 04/23/18 04/24/18 11:45 22:09 07:26 WBC RBC Hgb Hct MCV MCHC RDW Plt Count Lymph % (Auto) [place] % (Auto) Lymph # [place] # Baso # Seg Neutrophils % Seg Neuts % (Manual) Lymphocytes % (Manual) Monocytes % (Manual) Nucleated RBC % Seg Neutrophils # Seg Neutrophils # Man Lymphocytes # (Manual) Monocytes # (Manual) PT INR POC ABG pH POC ABG pCO2 POC ABG pO2 Sodium Potassium Chloride Carbon Dioxide BUN Creatinine Glucose POC Glucose 132 H 113 H 164 H Calcium Phosphorus Magnesium AST ALT Alkaline Phosphatase Lactate Dehydrogenase C-Reactive Protein Total Protein Albumin Urine WBC (Auto) Miscellaneous Test 04/24/18 04/24/18 04/24/18 08:30 08:30 11:27 WBC 14.4 H RBC 3.30 L Hgb 9.6 L Hct 28.4 L MCV MCHC RDW Plt Count Lymph % (Auto) 12.8 L [place] % (Auto) 9.1 H Lymph # [place] # 1.3 H Baso # 0.2 H Seg Neutrophils % 76.4 H Seg Neuts % (Manual) Lymphocytes % (Manual) Monocytes % (Manual) Nucleated RBC % Seg Neutrophils # 11.0 H Seg Neutrophils # Man Lymphocytes # (Manual) Monocytes # (Manual) PT INR POC ABG pH POC ABG pCO2 POC ABG pO2 Sodium Potassium Chloride Carbon Dioxide BUN 18 H Creatinine Glucose 155 H POC Glucose 133 H Calcium Phosphorus Magnesium AST ALT Alkaline Phosphatase Lactate Dehydrogenase C-Reactive Protein Total Protein Albumin Urine WBC (Auto) Miscellaneous Test 04/24/18 04/24/18 04/25/18 16:32 22:17 06:16 WBC RBC Hgb Hct MCV MCHC RDW Plt Count Lymph % (Auto) [place] % (Auto) Lymph # [place] # Baso # Seg Neutrophils % Seg Neuts % (Manual) Lymphocytes % (Manual) Monocytes % (Manual) Nucleated RBC % Seg Neutrophils # Seg Neutrophils # Man Lymphocytes # (Manual) Monocytes # (Manual) PT INR POC ABG pH POC ABG pCO2 POC ABG pO2 Sodium Potassium Chloride Carbon Dioxide BUN Creatinine Glucose POC Glucose 132 H 124 H 133 H Calcium Phosphorus Magnesium AST ALT Alkaline Phosphatase Lactate Dehydrogenase C-Reactive Protein Total Protein Albumin Urine WBC (Auto) Miscellaneous Test 04/25/18 04/25/18 04/25/18 07:39 11:10 11:31 WBC 11.3 H RBC 3.41 L Hgb 9.8 L Hct 29.5 L MCV MCHC RDW Plt Count Lymph % (Auto) 12.3 L [place] % (Auto) 9.0 H Lymph # [place] # 1.0 H Baso # Seg Neutrophils % 77.3 H Seg Neuts % (Manual) Lymphocytes % (Manual) Monocytes % (Manual) Nucleated RBC % Seg Neutrophils # 8.7 H Seg Neutrophils # Man Lymphocytes # (Manual) Monocytes # (Manual) PT INR POC ABG pH POC ABG pCO2 POC ABG pO2 Sodium Potassium Chloride Carbon Dioxide BUN Creatinine Glucose POC Glucose 141 H 145 H Calcium Phosphorus Magnesium AST ALT Alkaline Phosphatase Lactate Dehydrogenase C-Reactive Protein Total Protein Albumin Urine WBC (Auto) Miscellaneous Test 04/25/18 04/25/18 04/26/18 11:31 16:14 00:45 WBC RBC Hgb Hct MCV MCHC RDW Plt Count Lymph % (Auto) [place] % (Auto) Lymph # [place] # Baso # Seg Neutrophils % Seg Neuts % (Manual) Lymphocytes % (Manual) Monocytes % (Manual) Nucleated RBC % Seg Neutrophils # Seg Neutrophils # Man Lymphocytes # (Manual) Monocytes # (Manual) PT INR POC ABG pH POC ABG pCO2 POC ABG pO2 Sodium Potassium Chloride Carbon Dioxide BUN Creatinine Glucose 153 H POC Glucose 163 H 141 H Calcium Phosphorus Magnesium AST ALT Alkaline Phosphatase Lactate Dehydrogenase C-Reactive Protein Total Protein Albumin Urine WBC (Auto) Miscellaneous Test 04/26/18 04/26/18 04/26/18 06:10 06:10 06:37 WBC 14.5 H RBC 3.60 L Hgb Hct MCV MCHC RDW Plt Count Lymph % (Auto) [place] % (Auto) 9.6 H Lymph # [place] # 1.4 H Baso # 0.2 H Seg Neutrophils % 75.0 H Seg Neuts % (Manual) Lymphocytes % (Manual) Monocytes % (Manual) Nucleated RBC % Seg Neutrophils # 10.9 H Seg Neutrophils # Man Lymphocytes # (Manual) Monocytes # (Manual) PT INR POC ABG pH POC ABG pCO2 POC ABG pO2 Sodium Potassium Chloride Carbon Dioxide BUN Creatinine Glucose 138 H POC Glucose 131 H Calcium Phosphorus Magnesium AST ALT Alkaline Phosphatase Lactate Dehydrogenase C-Reactive Protein Total Protein Albumin Urine WBC (Auto) Miscellaneous Test 04/26/18 04/26/18 04/26/18 11:34 16:10 16:39 WBC RBC Hgb Hct MCV MCHC RDW Plt Count Lymph % (Auto) [place] % (Auto) Lymph # [place] # Baso # Seg Neutrophils % Seg Neuts % (Manual) Lymphocytes % (Manual) Monocytes % (Manual) Nucleated RBC % Seg Neutrophils # Seg Neutrophils # Man Lymphocytes # (Manual) Monocytes # (Manual) PT 17.2 H INR 1.33 H POC ABG pH POC ABG pCO2 POC ABG pO2 Sodium Potassium Chloride Carbon Dioxide BUN Creatinine Glucose POC Glucose 129 H Calcium Phosphorus Magnesium AST ALT Alkaline Phosphatase Lactate Dehydrogenase 266 H C-Reactive Protein Total Protein Albumin Urine WBC (Auto) Miscellaneous Test 04/26/18 04/26/18 04/27/18 16:59 22:39 05:50 WBC RBC Hgb Hct MCV MCHC RDW Plt Count Lymph % (Auto) [place] % (Auto) Lymph # [place] # Baso # Seg Neutrophils % Seg Neuts % (Manual) Lymphocytes % (Manual) Monocytes % (Manual) Nucleated RBC % Seg Neutrophils # Seg Neutrophils # Man Lymphocytes # (Manual) Monocytes # (Manual) PT INR POC ABG pH POC ABG pCO2 POC ABG pO2 Sodium Potassium Chloride 97.4 L Carbon Dioxide BUN Creatinine 0.6 L Glucose 135 H POC Glucose 145 H 187 H Calcium 8.2 L Phosphorus Magnesium AST 97 H ALT 222 H Alkaline Phosphatase 191 H Lactate Dehydrogenase C-Reactive Protein Total Protein Albumin 2.5 L Urine WBC (Auto) Miscellaneous Test 04/27/18 04/27/18 04/27/18 11:52 16:35 22:23 WBC RBC Hgb Hct MCV MCHC RDW Plt Count Lymph % (Auto) [place] % (Auto) Lymph # [place] # Baso # Seg Neutrophils % Seg Neuts % (Manual) Lymphocytes % (Manual) Monocytes % (Manual) Nucleated RBC % Seg Neutrophils # Seg Neutrophils # Man Lymphocytes # (Manual) Monocytes # (Manual) PT INR POC ABG pH POC ABG pCO2 POC ABG pO2 Sodium Potassium Chloride Carbon Dioxide BUN Creatinine Glucose POC Glucose 162 H 136 H 188 H Calcium Phosphorus Magnesium AST ALT Alkaline Phosphatase Lactate Dehydrogenase C-Reactive Protein Total Protein Albumin Urine WBC (Auto) Miscellaneous Test 04/28/18 04/28/18 04/28/18 07:06 09:15 12:11 WBC RBC Hgb Hct MCV MCHC RDW Plt Count Lymph % (Auto) [place] % (Auto) Lymph # [place] # Baso # Seg Neutrophils % Seg Neuts % (Manual) Lymphocytes % (Manual) Monocytes % (Manual) Nucleated RBC % Seg Neutrophils # Seg Neutrophils # Man Lymphocytes # (Manual) Monocytes # (Manual) PT INR POC ABG pH POC ABG pCO2 POC ABG pO2 Sodium Potassium Chloride Carbon Dioxide BUN Creatinine 0.5 L Glucose 149 H POC Glucose 160 H 107 H Calcium 8.0 L Phosphorus Magnesium AST ALT Alkaline Phosphatase Lactate Dehydrogenase C-Reactive Protein Total Protein Albumin Urine WBC (Auto) Miscellaneous Test 04/28/18 04/29/18 04/29/18 21:57 05:25 05:59 WBC RBC Hgb Hct MCV MCHC RDW Plt Count Lymph % (Auto) [place] % (Auto) Lymph # [place] # Baso # Seg Neutrophils % Seg Neuts % (Manual) Lymphocytes % (Manual) Monocytes % (Manual) Nucleated RBC % Seg Neutrophils # Seg Neutrophils # Man Lymphocytes # (Manual) Monocytes # (Manual) PT INR POC ABG pH POC ABG pCO2 POC ABG pO2 Sodium Potassium Chloride Carbon Dioxide BUN Creatinine 0.5 L Glucose 122 H POC Glucose 134 H 130 H Calcium 8.3 L Phosphorus Magnesium AST ALT Alkaline Phosphatase Lactate Dehydrogenase C-Reactive Protein Total Protein Albumin Urine WBC (Auto) Miscellaneous Test 04/29/18 04/29/18 04/29/18 12:14 17:45 22:47 WBC RBC Hgb Hct MCV MCHC RDW Plt Count Lymph % (Auto) [place] % (Auto) Lymph # [place] # Baso # Seg Neutrophils % Seg Neuts % (Manual) Lymphocytes % (Manual) Monocytes % (Manual) Nucleated RBC % Seg Neutrophils # Seg Neutrophils # Man Lymphocytes # (Manual) Monocytes # (Manual) PT INR POC ABG pH POC ABG pCO2 POC ABG pO2 Sodium Potassium Chloride Carbon Dioxide BUN Creatinine Glucose POC Glucose 171 H 142 H 317 H Calcium Phosphorus Magnesium AST ALT Alkaline Phosphatase Lactate Dehydrogenase C-Reactive Protein Total Protein Albumin Urine WBC (Auto) Miscellaneous Test 04/30/18 04/30/18 04/30/18 06:18 08:26 11:20 WBC RBC 3.16 L Hgb 9.1 L Hct 27.0 L MCV MCHC RDW Plt Count Lymph % (Auto) [place] % (Auto) 11.8 H Lymph # [place] # Baso # Seg Neutrophils % Seg Neuts % (Manual) Lymphocytes % (Manual) Monocytes % (Manual) Nucleated RBC % Seg Neutrophils # Seg Neutrophils # Man Lymphocytes # (Manual) Monocytes # (Manual) PT INR POC ABG pH POC ABG pCO2 POC ABG pO2 Sodium 135 L Potassium Chloride Carbon Dioxide 21 L BUN Creatinine 0.5 L Glucose 155 H POC Glucose 166 H Calcium Phosphorus Magnesium AST ALT Alkaline Phosphatase Lactate Dehydrogenase C-Reactive Protein Total Protein Albumin Urine WBC (Auto) Miscellaneous Test 04/30/18 04/30/18 05/01/18 12:24 18:05 02:52 WBC RBC Hgb Hct MCV MCHC RDW Plt Count Lymph % (Auto) [place] % (Auto) Lymph # [place] # Baso # Seg Neutrophils % Seg Neuts % (Manual) Lymphocytes % (Manual) Monocytes % (Manual) Nucleated RBC % Seg Neutrophils # Seg Neutrophils # Man Lymphocytes # (Manual) Monocytes # (Manual) PT INR POC ABG pH POC ABG pCO2 POC ABG pO2 Sodium Potassium Chloride Carbon Dioxide BUN Creatinine Glucose POC Glucose 176 H 147 H 132 H Calcium Phosphorus Magnesium AST ALT Alkaline Phosphatase Lactate Dehydrogenase C-Reactive Protein Total Protein Albumin Urine WBC (Auto) Miscellaneous Test 05/01/18 05/02/18 05/02/18 04:00 05:50 11:51 WBC RBC Hgb Hct MCV MCHC RDW Plt Count Lymph % (Auto) [place] % (Auto) Lymph # [place] # Baso # Seg Neutrophils % Seg Neuts % (Manual) Lymphocytes % (Manual) Monocytes % (Manual) Nucleated RBC % Seg Neutrophils # Seg Neutrophils # Man Lymphocytes # (Manual) Monocytes # (Manual) PT INR POC ABG pH POC ABG pCO2 POC ABG pO2 Sodium 134 L Potassium Chloride Carbon Dioxide BUN Creatinine 0.6 L 0.6 L Glucose 101 H 122 H POC Glucose 215 H Calcium Phosphorus Magnesium AST ALT Alkaline Phosphatase Lactate Dehydrogenase C-Reactive Protein Total Protein Albumin Urine WBC (Auto) Miscellaneous Test 05/02/18 05/03/18 05/03/18 17:40 00:58 06:10 WBC RBC Hgb Hct MCV MCHC RDW Plt Count Lymph % (Auto) [place] % (Auto) Lymph # [place] # Baso # Seg Neutrophils % Seg Neuts % (Manual) Lymphocytes % (Manual) Monocytes % (Manual) Nucleated RBC % Seg Neutrophils # Seg Neutrophils # Man Lymphocytes # (Manual) Monocytes # (Manual) PT INR POC ABG pH POC ABG pCO2 POC ABG pO2 Sodium Potassium Chloride Carbon Dioxide BUN Creatinine Glucose POC Glucose 142 H 135 H 107 H Calcium Phosphorus Magnesium AST ALT Alkaline Phosphatase Lactate Dehydrogenase C-Reactive Protein Total Protein Albumin Urine WBC (Auto) Miscellaneous Test 05/03/18 05/03/18 05/03/18 08:01 16:44 17:08 WBC RBC 3.27 L Hgb 9.3 L Hct 27.8 L MCV MCHC RDW Plt Count Lymph % (Auto) [place] % (Auto) 11.9 H Lymph # [place] # 1.0 H Baso # Seg Neutrophils % Seg Neuts % (Manual) Lymphocytes % (Manual) Monocytes % (Manual) Nucleated RBC % Seg Neutrophils # Seg Neutrophils # Man Lymphocytes # (Manual) Monocytes # (Manual) PT INR POC ABG pH POC ABG pCO2 POC ABG pO2 Sodium Potassium Chloride Carbon Dioxide BUN Creatinine 0.6 L Glucose 128 H POC Glucose 107 H Calcium Phosphorus Magnesium AST ALT Alkaline Phosphatase Lactate Dehydrogenase C-Reactive Protein Total Protein Albumin Urine WBC (Auto) Miscellaneous Test 0805/04/18 05/04/18 23:47 06:01 06:37 WBC RBC Hgb Hct MCV MCHC RDW Plt Count Lymph % (Auto) [place] % (Auto) Lymph # [place] # Baso # Seg Neutrophils % Seg Neuts % (Manual) Lymphocytes % (Manual) Monocytes % (Manual) Nucleated RBC % Seg Neutrophils # Seg Neutrophils # Man Lymphocytes # (Manual) Monocytes # (Manual) PT INR POC ABG pH POC ABG pCO2 POC ABG pO2 Sodium Potassium Chloride Carbon Dioxide BUN Creatinine 0.6 L Glucose 140 H POC Glucose 149 H 140 H Calcium 8.1 L Phosphorus Magnesium AST 74 H ALT 169 H Alkaline Phosphatase 203 H Lactate Dehydrogenase C-Reactive Protein Total Protein Albumin 2.5 L Urine WBC (Auto) Miscellaneous Test 05/04/18 05/04/18 05/04/18 11:51 16:43 23:36 WBC RBC Hgb Hct MCV MCHC RDW Plt Count Lymph % (Auto) [place] % (Auto) Lymph # [place] # Baso # Seg Neutrophils % Seg Neuts % (Manual) Lymphocytes % (Manual) Monocytes % (Manual) Nucleated RBC % Seg Neutrophils # Seg Neutrophils # Man Lymphocytes # (Manual) Monocytes # (Manual) PT INR POC ABG pH POC ABG pCO2 POC ABG pO2 Sodium Potassium Chloride Carbon Dioxide BUN Creatinine Glucose POC Glucose 110 H 127 H 170 H Calcium Phosphorus Magnesium AST ALT Alkaline Phosphatase Lactate Dehydrogenase C-Reactive Protein Total Protein Albumin Urine WBC (Auto) Miscellaneous Test 05/05/18 09:46 WBC RBC Hgb Hct MCV MCHC RDW Plt Count Lymph % (Auto) [place] % (Auto) Lymph # [place] # Baso # Seg Neutrophils % Seg Neuts % (Manual) Lymphocytes % (Manual) Monocytes % (Manual) Nucleated RBC % Seg Neutrophils # Seg Neutrophils # Man Lymphocytes # (Manual) Monocytes # (Manual) PT INR POC ABG pH POC ABG pCO2 POC ABG pO2 Sodium Potassium Chloride Carbon Dioxide BUN Creatinine 0.5 L Glucose POC Glucose Calcium Phosphorus Magnesium AST ALT Alkaline Phosphatase Lactate Dehydrogenase C-Reactive Protein Total Protein Albumin Urine WBC (Auto) Miscellaneous Test Allied health notes reviewed: nursing
[2018-05-05] MEDS: ZYVOX 600MG/300ML 600 MG/300 ML BAG IV SCH ×2 (10:58→22:22)
[2018-05-05] MEDS: ZOFRAN IV PRN (14:33)
[2018-05-05] MEDS: DIFLUCAN 200 MG/100 ML BAG IV SCH (14:38)
[2018-05-05] MEDS ORDERED: TPN ADULT 2,000 ML IV SCH (20:00)
[2018-05-05] MEDS: LOVENOX SUB-Q SCH (22:22)
[2018-05-06] MEDS: ZOFRAN IV PRN ×2 (01:15→12:17)
[2018-05-06] MEDS: DILAUDID IV PRN ×5 (04:46→21:39)
[2018-05-06 05:27] LABS: BUN/Creatinine Ratio 22; Blood Urea Nitrogen 13 mg/dL (7-17); Calcium 8.2 mg/dL (8.4-10.2); Hemolysis Index 0
[2018-05-06] MEDS: PULMICORT IH SCH (07:56)
[2018-05-06] MEDS: BROVANA NEBU IH SCH (07:56)
[2018-05-06] MEDS: ATIVAN IV PRN ×2 (08:57→21:38)
[2018-05-06] MEDS: PROTONIX IV SCH ×2 (09:03→21:38)
[2018-05-06] MEDS: PHENERGAN PR PRN ×2 (09:07→18:16)
--- NOTE | 2018-05-06 09:21 | Progress Note ---
Assessment and Plan Assessment: 1) Sepsis: intermittent fever, leukocytosis resolved as of 04/30. Etiology most likely gastric perforation/intra-abdominal collection with ongoing stomach leaks ? vs. complicated pneumonia. 2) Gastric perforation and intra-abdominal fluid collection. -S/P OR for ex lap, abdominal washout, repair of gastric perforation and placement of drains on 04/08/18. -04/07 peritoneal fluid + Serratia x 2. -04/10 abdmen cx Dianna albicans -Repeat CTA 04/09 showed no PE, however increase in left pleural effusion with dense consolidation consistent with atelectasis and a large fluid collection 14 x 4.7 cm in the left lobe of the fever with air bubbles. -CRP=52 --> 45 -procal=0.3 -Repeat CT showed large left pleural effusion, smaller left hep lobe collection and large splenic collection 4.2x6.1 cm -S/P further drain placement 04/16 cx +MSSA and Leuconostoc. 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 5) Acute diarrhea. ?antibiotic related. Recommendations: -Since remains with fever and gastric leaks will continue antibiotic coverage with fluconazole and ceftriaxone. Pt will likely continue to be febrile until stomach leaks are fixed. -Stop zosyn and zyvox. -Will f/u Blood cx. -Check CXR. -Monitor fever. -GI service recommended transfer to [place] for gastric stent placement. Palmira Baron MD ID attending [phone] Subjective Date of service: 05/06/18 Principal diagnosis: Sepsis Syndrome; Acute Hypoxemic Resp Failure; Acute Encephalopathy Interval history: Continues with fever. Feels horrible this morning. Have been vomiting overnight. On TPN. +diarrhea. Microbiology: Blood cultures: 04/07 neg 04/10 neg 04/24 ngtd 05/04 ngtd Fungal Blood cx 04/28 NG at 1 week. Peritoneal cultures: 04/07 Serratia x 2 04/10 Dianna albicans 04/16 MSSA and Leuconostoc Pleural fluid: 04/26 neg Current Antimicrobials: Zosyn 04/26 Zyvox 04/26 Fluconazole 05/05 Previous Antimicrobials: Fluconazole 04/08-04/11 Zosyn 04/08-04/14 vanco 04/10-04/19 cefepime and flagyl 04/14-04/24 Objective - Exam Narrative Exam: General appearance: Pt in NAD. A&Ox3. Eyes: anicteric sclerae, moist conjunctivae; PERRLA HENT: NC/AT. Neck: Trachea midline; supple, no thyromegaly or lymphadenopathy Lungs: CTA. CV: S1,S2 Abdomen: Obese, Soft. 2 R sided drains, 1 mid-adominal drain and 2 L sided drains. Extremities: No peripheral edema or extremity lymphadenopathy Skin: Normal temperature, turgor and texture; no rash, ulcers or subcutaneous nodules Psych: Appropriate affect, alert and oriented to person, place and time. Neuro: alert and oriented x 3. Moving all extremities Lines: RUE PICC for TPN. - Constitutional Vitals: Vital Signs Temp Pulse Resp BP Pulse Ox 99.2 F 101 H 18 150/81 97 05/06/18 04:07 05/06/18 08:06 05/06/18 08:53 05/06/18 04:07 05/06/18 04:07 Temperature -Last 24 Hours Temperature 99.2 F Temperature 101.1 F Temperature 101.1 F Temperature 99.8 F Temperature 99.1 F Temperature 99.1 F - Labs CBC & Chem 7: 05/03/18 17:08 05/06/18 04:55 Labs: Abnormal lab results 05/05/18 05/05/18 05/05/18 Range/Units 09:46 12:07 22:55 Sodium (137-145) mmol/L Creatinine 0.5 L (0.7-1.2) mg/dL Glucose (65-100) mg/dL POC Glucose 215 H 160 H (70-105) Calcium (8.4-10.2) mg/dL Phosphorus (2.5-4.5) mg/dL 05/06/18 05/06/18 Range/Units 04:55 06:09 Sodium 135 L (137-145) mmol/L Creatinine 0.6 L (0.7-1.2) mg/dL Glucose 141 H (65-100) mg/dL POC Glucose 158 H (70-105) Calcium 8.2 L (8.4-10.2) mg/dL Phosphorus 2.10 L D (2.5-4.5) mg/dL
--- NOTE | 2018-05-06 10:00 | XRay Report ---
AP CHEST: HISTORY: Fever AP view of the chest demonstrates a normal mediastinal and cardiac contour with clear lungs and normal bony and soft tissue structures. The right arm PICC remains in good position. IMPRESSION: Unremarkable AP chest.
--- NOTE | 2018-05-06 11:00 | Progress Note ---
Assessment and Plan Sepsis syndrome with altered mental status in the setting of the systemic inflammatory response syndrome. Mild metabolic acidosis Perforated abdominal viscus status post exploratory laparotomy and repair. Obesity. Atypical Chest Pain Obstructive sleep apnea according to the history. Acute encephalopathy, presumably toxic metabolic. History of hypertension. Arthritis. Gastroesophageal reflux disease. Morbid obesity. Acute hypoxemic respiratory failure - will increase clonidine further to 0.3 mg patch - continue with labetalol prn dosing - upper G.I. series reports persistent leaks X 2 - continue supplemental oxygen to keep sats > 90% - prn analgesia while watching for respiratory depression - to repeat CT abd/pelvis to evaluate for persistent leak +/- IR intervention - anti-infectives per ID recs (following off AB's) - continue PICC line for TPN - continue PT/OT - continue GI & VTE prophylaxis - continue bronchodilators for COPD (brovana and changed duonebs to prn) - continue BIPAP scheduled qhs for WILVER with prn daytime use (encouraged improved compliance) - wound care per WCT / RN and surgeon - continue other care per attending / other consultants - SNF tentatively once cleared by surgery team ...... re-evaluate in am & prn ...35' Subjective Date of service: 05/06/18 Principal diagnosis: Sepsis Syndrome; Acute Hypoxemic Resp Failure; Acute Encephalopathy Interval history: Patient is seen today for: Sepsis Syndrome; Acute Hypoxemic Resp Failure; Acute Encephalopathy Seen and examined at bedside; 24hour events reviewed; nursing and respiratory care staff consulted; no adverse overnight events reported to me; resting in bed ; still with fevers; some high BP readings still; seen by G.I. and transfer recommended; no new issues respiratory-daniels but remains on supplemental oxygen Objective Vital Signs - 12hr 05/05/18 05/06/18 05/06/18 23:49 04:07 07:56 Temperature 101.1 F H 99.2 F Pulse Rate 111 H Pulse Rate [ 104 H Anterior Bilateral] Respiratory 18 20 Rate Respiratory 18 Rate [Anterior Bilateral] Blood Pressure 150/81 O2 Sat by Pulse 97 Oximetry 05/06/18 05/06/18 08:06 08:53 Temperature Pulse Rate Pulse Rate [ 101 H Anterior Bilateral] Respiratory 18 Rate Respiratory 18 Rate [Anterior Bilateral] Blood Pressure O2 Sat by Pulse Oximetry Constitutional: no acute distress, alert Eyes: non-icteric ENT: oropharynx moist, other (no thyromegaly) Neck: supple, no lymphadenopathy, no JVD, other (large neck circumference) Effort: normal Ascultation: Bilateral: diminished breath sounds, rhonchi (scant in bases) Percussion: Left: dull (base), Bilateral: not dull Cardiovascular: regular rate and rhythm, other (No R/M) Gastrointestinal: normoactive bowel sounds, soft, non-tender, non-distended, other (no palpable HSM, KRISTI drains) Integumentary: normal Extremities: no cyanosis, no edema, pulses normal, no ischemia or petechiae Neurologic: normal mental status, non-focal exam, pupils equal and round, CN II- XII normal, motor strength normal and Psychiatric: mood appropriate, affect normal CBC and BMP: 05/03/18 17:08 05/06/18 04:55 ABG, PT/INR, D-dimer: ABG POC ABG pH 7.519 (7.35-7.45) H 04/10/18 12:59 POC ABG pCO2 29.3 (35-45) L 04/10/18 12:59 POC ABG pO2 63 (80-105) L 04/10/18 12:59 POC ABG HCO3 23.9 04/10/18 12:59 POC ABG Total CO2 25 04/10/18 12:59 POC ABG O2 Sat 94 04/10/18 12:59 PT/INR, D-dimer PT 17.2 Sec. (12.2-14.9) H 04/26/18 16:39 INR 1.33 (0.87-1.13) H 04/26/18 16:39 Abnormal lab findings: Abnormal Labs 04/07/18 04/07/18 04/07/18 00:05 00:05 09:41 WBC 18.4 H 21.3 H RBC Hgb Hct MCV MCHC RDW Plt Count Lymph % (Auto) 4.5 L [place] % (Auto) Lymph # 0.8 L [place] # 1.2 H Baso # Seg Neutrophils % 88.9 H Seg Neuts % (Manual) 85.0 H Lymphocytes % (Manual) 4.0 L Monocytes % (Manual) Nucleated RBC % Seg Neutrophils # 16.4 H Seg Neutrophils # Man 18.1 H Lymphocytes # (Manual) 0.9 L Monocytes # (Manual) 1.1 H PT INR POC ABG pH POC ABG pCO2 POC ABG pO2 Sodium Potassium Chloride Carbon Dioxide BUN Creatinine Glucose 123 H POC Glucose Calcium 8.0 L Phosphorus Magnesium 1.60 L AST 59 H ALT Alkaline Phosphatase Lactate Dehydrogenase C-Reactive Protein Total Protein Albumin 2.9 L Urine WBC (Auto) Miscellaneous Test 04/07/18 04/08/18 04/08/18 09:41 00:20 10:25 WBC 19.2 H RBC Hgb Hct MCV MCHC RDW Plt Count Lymph % (Auto) 5.4 L [place] % (Auto) Lymph # 1.0 L [place] # 1.1 H Baso # Seg Neutrophils % 88.9 H Seg Neuts % (Manual) Lymphocytes % (Manual) Monocytes % (Manual) Nucleated RBC % Seg Neutrophils # 17.1 H Seg Neutrophils # Man Lymphocytes # (Manual) Monocytes # (Manual) PT INR POC ABG pH POC ABG pCO2 POC ABG pO2 Sodium Potassium 3.3 L Chloride 95.1 L Carbon Dioxide 21 L BUN Creatinine Glucose 113 H POC Glucose Calcium Phosphorus Magnesium AST ALT Alkaline Phosphatase Lactate Dehydrogenase C-Reactive Protein Total Protein Albumin 3.6 L Urine WBC (Auto) 45.0 H Miscellaneous Test 04/08/18 04/08/18 04/08/18 10:25 13:33 23:53 WBC 12.8 H RBC Hgb Hct MCV MCHC RDW Plt Count Lymph % (Auto) [place] % (Auto) Lymph # [place] # Baso # Seg Neutrophils % Seg Neuts % (Manual) 97.0 H Lymphocytes % (Manual) 2.0 L Monocytes % (Manual) Nucleated RBC % Seg Neutrophils # Seg Neutrophils # Man 12.4 H Lymphocytes # (Manual) 0.3 L Monocytes # (Manual) PT INR POC ABG pH POC ABG pCO2 POC ABG pO2 Sodium Potassium 3.5 L Chloride Carbon Dioxide BUN Creatinine Glucose 123 H POC Glucose Calcium 7.9 L Phosphorus Magnesium AST 53 H ALT Alkaline Phosphatase Lactate Dehydrogenase C-Reactive Protein 52.00 H Total Protein 6.1 L Albumin 2.7 L Urine WBC (Auto) Miscellaneous Test 04/09/18 04/09/18 04/09/18 04:20 04:20 13:38 WBC 16.2 H RBC Hgb Hct MCV MCHC RDW Plt Count Lymph % (Auto) [place] % (Auto) Lymph # [place] # Baso # Seg Neutrophils % Seg Neuts % (Manual) 89.0 H Lymphocytes % (Manual) 4.0 L Monocytes % (Manual) Nucleated RBC % Seg Neutrophils # Seg Neutrophils # Man 14.4 H Lymphocytes # (Manual) 0.6 L Monocytes # (Manual) PT INR POC ABG pH 7.494 H POC ABG pCO2 31.6 L POC ABG pO2 68 L Sodium Potassium 3.5 L Chloride Carbon Dioxide BUN Creatinine 0.6 L Glucose 117 H POC Glucose Calcium 7.9 L Phosphorus 1.50 L D Magnesium AST ALT Alkaline Phosphatase Lactate Dehydrogenase C-Reactive Protein Total Protein 5.6 L Albumin 2.9 L Urine WBC (Auto) Miscellaneous Test 04/09/18 04/09/18 04/09/18 18:25 21:45 21:45 WBC 21.3 H RBC 3.62 L Hgb Hct MCV MCHC 35 H RDW Plt Count Lymph % (Auto) [place] % (Auto) Lymph # [place] # Baso # Seg Neutrophils % Seg Neuts % (Manual) 90.0 H Lymphocytes % (Manual) 6.0 L Monocytes % (Manual) Nucleated RBC % 1.0 H Seg Neutrophils # Seg Neutrophils # Man 19.2 H Lymphocytes # (Manual) Monocytes # (Manual) 0.9 H PT INR POC ABG pH POC ABG pCO2 POC ABG pO2 Sodium Potassium Chloride Carbon Dioxide BUN 5 L Creatinine 0.5 L Glucose 134 H POC Glucose 155 H Calcium 7.9 L Phosphorus 2.20 L D Magnesium AST ALT Alkaline Phosphatase Lactate Dehydrogenase C-Reactive Protein Total Protein Albumin Urine WBC (Auto) Miscellaneous Test 04/09/18 04/10/18 04/10/18 23:38 04:07 04:07 WBC 20.2 H RBC 3.38 L Hgb 9.4 L Hct 28.9 L MCV MCHC RDW Plt Count Lymph % (Auto) [place] % (Auto) Lymph # [place] # Baso # Seg Neutrophils % Seg Neuts % (Manual) Lymphocytes % (Manual) 6.0 L Monocytes % (Manual) Nucleated RBC % Seg Neutrophils # Seg Neutrophils # Man 10.7 H Lymphocytes # (Manual) Monocytes # (Manual) PT INR POC ABG pH POC ABG pCO2 POC ABG pO2 Sodium Potassium Chloride Carbon Dioxide BUN 6 L Creatinine 0.6 L Glucose 176 H POC Glucose 160 H Calcium 7.7 L Phosphorus Magnesium AST ALT Alkaline Phosphatase Lactate Dehydrogenase C-Reactive Protein Total Protein Albumin Urine WBC (Auto) Miscellaneous Test 04/10/18 04/10/18 04/10/18 05:29 11:55 12:59 WBC RBC Hgb Hct MCV MCHC RDW Plt Count Lymph % (Auto) [place] % (Auto) Lymph # [place] # Baso # Seg Neutrophils % Seg Neuts % (Manual) Lymphocytes % (Manual) Monocytes % (Manual) Nucleated RBC % Seg Neutrophils # Seg Neutrophils # Man Lymphocytes # (Manual) Monocytes # (Manual) PT INR POC ABG pH 7.519 H POC ABG pCO2 29.3 L POC ABG pO2 63 L Sodium Potassium Chloride Carbon Dioxide BUN Creatinine Glucose POC Glucose 171 H 194 H Calcium Phosphorus Magnesium AST ALT Alkaline Phosphatase Lactate Dehydrogenase C-Reactive Protein Total Protein Albumin Urine WBC (Auto) Miscellaneous Test 04/10/18 04/10/18 04/10/18 18:11 18:28 18:28 WBC 22.7 H RBC 3.62 L Hgb Hct MCV MCHC RDW Plt Count Lymph % (Auto) [place] % (Auto) Lymph # [place] # Baso # Seg Neutrophils % Seg Neuts % (Manual) 84.0 H Lymphocytes % (Manual) 7.0 L Monocytes % (Manual) 8.0 H Nucleated RBC % Seg Neutrophils # Seg Neutrophils # Man 19.1 H Lymphocytes # (Manual) Monocytes # (Manual) 1.8 H PT INR POC ABG pH POC ABG pCO2 POC ABG pO2 Sodium Potassium Chloride Carbon Dioxide BUN Creatinine Glucose POC Glucose 118 H Calcium Phosphorus Magnesium AST ALT Alkaline Phosphatase Lactate Dehydrogenase C-Reactive Protein 45.20 H Total Protein Albumin Urine WBC (Auto) Miscellaneous Test 04/10/18 04/10/18 04/11/18 18:28 23:45 03:35 WBC 20.9 H RBC 3.54 L Hgb 10.0 L Hct MCV MCHC RDW Plt Count Lymph % (Auto) [place] % (Auto) Lymph # [place] # Baso # Seg Neutrophils % Seg Neuts % (Manual) 80.0 H Lymphocytes % (Manual) 6.0 L Monocytes % (Manual) Nucleated RBC % Seg Neutrophils # Seg Neutrophils # Man 16.7 H Lymphocytes # (Manual) Monocytes # (Manual) PT INR POC ABG pH POC ABG pCO2 POC ABG pO2 Sodium Potassium 3.5 L Chloride Carbon Dioxide BUN 5 L Creatinine 0.5 L Glucose 108 H POC Glucose 149 H Calcium 8.3 L Phosphorus Magnesium AST ALT Alkaline Phosphatase Lactate Dehydrogenase C-Reactive Protein Total Protein Albumin Urine WBC (Auto) Miscellaneous Test 04/11/18 04/11/18 04/11/18 03:35 06:17 11:29 WBC RBC Hgb Hct MCV MCHC RDW Plt Count Lymph % (Auto) [place] % (Auto) Lymph # [place] # Baso # Seg Neutrophils % Seg Neuts % (Manual) Lymphocytes % (Manual) Monocytes % (Manual) Nucleated RBC % Seg Neutrophils # Seg Neutrophils # Man Lymphocytes # (Manual) Monocytes # (Manual) PT INR POC ABG pH POC ABG pCO2 POC ABG pO2 Sodium Potassium Chloride Carbon Dioxide BUN Creatinine 0.5 L Glucose 143 H POC Glucose 155 H 158 H Calcium 8.2 L Phosphorus Magnesium AST ALT Alkaline Phosphatase Lactate Dehydrogenase C-Reactive Protein Total Protein 6.0 L Albumin 2.2 L Urine WBC (Auto) Miscellaneous Test 04/11/18 04/11/18 04/12/18 18:13 23:51 05:29 WBC RBC Hgb Hct MCV MCHC RDW Plt Count Lymph % (Auto) [place] % (Auto) Lymph # [place] # Baso # Seg Neutrophils % Seg Neuts % (Manual) Lymphocytes % (Manual) Monocytes % (Manual) Nucleated RBC % Seg Neutrophils # Seg Neutrophils # Man Lymphocytes # (Manual) Monocytes # (Manual) PT INR POC ABG pH POC ABG pCO2 POC ABG pO2 Sodium Potassium Chloride Carbon Dioxide BUN Creatinine Glucose POC Glucose 135 H 143 H 150 H Calcium Phosphorus Magnesium AST ALT Alkaline Phosphatase Lactate Dehydrogenase C-Reactive Protein Total Protein Albumin Urine WBC (Auto) Miscellaneous Test 04/12/18 04/12/18 04/13/18 05:40 05:40 00:32 WBC 18.0 H RBC 3.34 L Hgb 9.5 L Hct 28.9 L MCV MCHC RDW Plt Count Lymph % (Auto) 7.4 L [place] % (Auto) 10.8 H Lymph # [place] # 1.9 H Baso # Seg Neutrophils % 81.1 H Seg Neuts % (Manual) Lymphocytes % (Manual) Monocytes % (Manual) Nucleated RBC % Seg Neutrophils # 14.6 H Seg Neutrophils # Man Lymphocytes # (Manual) Monocytes # (Manual) PT INR POC ABG pH POC ABG pCO2 POC ABG pO2 Sodium Potassium Chloride 107.7 H Carbon Dioxide 21 L BUN Creatinine 0.6 L Glucose 140 H POC Glucose 144 H Calcium Phosphorus Magnesium AST ALT Alkaline Phosphatase Lactate Dehydrogenase C-Reactive Protein Total Protein Albumin Urine WBC (Auto) Miscellaneous Test 04/13/18 04/13/18 04/13/18 04:20 04:20 04:20 WBC 18.1 H RBC 3.52 L Hgb 9.8 L Hct 30.1 L MCV MCHC RDW Plt Count Lymph % (Auto) 11.1 L [place] % (Auto) 13.6 H Lymph # [place] # 2.5 H Baso # Seg Neutrophils % 74.4 H Seg Neuts % (Manual) Lymphocytes % (Manual) Monocytes % (Manual) Nucleated RBC % Seg Neutrophils # 13.4 H Seg Neutrophils # Man Lymphocytes # (Manual) Monocytes # (Manual) PT INR POC ABG pH POC ABG pCO2 POC ABG pO2 Sodium Potassium Chloride Carbon Dioxide BUN Creatinine 0.5 L Glucose 142 H POC Glucose Calcium Phosphorus Magnesium AST ALT Alkaline Phosphatase Lactate Dehydrogenase C-Reactive Protein 29.60 H Total Protein Albumin Urine WBC (Auto) Miscellaneous Test 04/13/18 04/13/18 04/13/18 05:35 13:37 23:50 WBC RBC Hgb Hct MCV MCHC RDW Plt Count Lymph % (Auto) [place] % (Auto) Lymph # [place] # Baso # Seg Neutrophils % Seg Neuts % (Manual) Lymphocytes % (Manual) Monocytes % (Manual) Nucleated RBC % Seg Neutrophils # Seg Neutrophils # Man Lymphocytes # (Manual) Monocytes # (Manual) PT INR POC ABG pH POC ABG pCO2 POC ABG pO2 Sodium Potassium Chloride Carbon Dioxide BUN Creatinine Glucose POC Glucose 142 H 160 H Calcium Phosphorus Magnesium AST ALT Alkaline Phosphatase Lactate Dehydrogenase C-Reactive Protein Total Protein Albumin Urine WBC (Auto) Miscellaneous Test Flexitest 1 H 04/14/18 04/14/18 04/14/18 04:00 04:00 05:29 WBC 22.1 H RBC 3.59 L Hgb 9.9 L Hct MCV MCHC RDW Plt Count Lymph % (Auto) [place] % (Auto) Lymph # [place] # Baso # Seg Neutrophils % Seg Neuts % (Manual) 73.0 H Lymphocytes % (Manual) 9.0 L Monocytes % (Manual) 11.0 H Nucleated RBC % Seg Neutrophils # Seg Neutrophils # Man 16.1 H Lymphocytes # (Manual) Monocytes # (Manual) 2.4 H PT INR POC ABG pH POC ABG pCO2 POC ABG pO2 Sodium Potassium Chloride Carbon Dioxide BUN Creatinine Glucose 155 H POC Glucose 133 H Calcium Phosphorus Magnesium 2.50 H AST ALT Alkaline Phosphatase Lactate Dehydrogenase C-Reactive Protein Total Protein Albumin Urine WBC (Auto) Miscellaneous Test 04/14/18 04/14/18 04/14/18 12:47 16:01 23:42 WBC RBC Hgb Hct MCV MCHC RDW Plt Count Lymph % (Auto) [place] % (Auto) Lymph # [place] # Baso # Seg Neutrophils % Seg Neuts % (Manual) Lymphocytes % (Manual) Monocytes % (Manual) Nucleated RBC % Seg Neutrophils # Seg Neutrophils # Man Lymphocytes # (Manual) Monocytes # (Manual) PT INR POC ABG pH POC ABG pCO2 POC ABG pO2 Sodium Potassium Chloride Carbon Dioxide BUN Creatinine Glucose POC Glucose 183 H 153 H 172 H Calcium Phosphorus Magnesium AST ALT Alkaline Phosphatase Lactate Dehydrogenase C-Reactive Protein Total Protein Albumin Urine WBC (Auto) Miscellaneous Test 04/15/18 04/15/18 04/15/18 04:42 04:42 05:49 WBC 21.5 H RBC 3.37 L Hgb 9.4 L Hct 28.9 L MCV MCHC RDW Plt Count 490 H Lymph % (Auto) [place] % (Auto) Lymph # [place] # Baso # Seg Neutrophils % Seg Neuts % (Manual) 77.0 H Lymphocytes % (Manual) 7.0 L Monocytes % (Manual) 10.0 H Nucleated RBC % Seg Neutrophils # Seg Neutrophils # Man 16.6 H Lymphocytes # (Manual) Monocytes # (Manual) 2.2 H PT INR POC ABG pH POC ABG pCO2 POC ABG pO2 Sodium Potassium 3.4 L Chloride 107.5 H Carbon Dioxide 21 L BUN Creatinine Glucose 165 H POC Glucose 147 H Calcium 8.0 L Phosphorus Magnesium 2.40 H AST ALT Alkaline Phosphatase Lactate Dehydrogenase C-Reactive Protein Total Protein Albumin Urine WBC (Auto) Miscellaneous Test 04/15/18 04/15/18 04/16/18 11:17 17:35 00:26 WBC RBC Hgb Hct MCV MCHC RDW Plt Count Lymph % (Auto) [place] % (Auto) Lymph # [place] # Baso # Seg Neutrophils % Seg Neuts % (Manual) Lymphocytes % (Manual) Monocytes % (Manual) Nucleated RBC % Seg Neutrophils # Seg Neutrophils # Man Lymphocytes # (Manual) Monocytes # (Manual) PT INR POC ABG pH POC ABG pCO2 POC ABG pO2 Sodium Potassium Chloride Carbon Dioxide BUN Creatinine Glucose POC Glucose 119 H 169 H 176 H Calcium Phosphorus Magnesium AST ALT Alkaline Phosphatase Lactate Dehydrogenase C-Reactive Protein Total Protein Albumin Urine WBC (Auto) Miscellaneous Test 04/16/18 04/16/18 04/16/18 06:12 06:19 06:21 WBC 20.7 H RBC 3.25 L Hgb 9.0 L Hct MCV MCHC 29 L RDW 16.7 H Plt Count 498 H Lymph % (Auto) [place] % (Auto) Lymph # [place] # Baso # Seg Neutrophils % Seg Neuts % (Manual) 88.0 H Lymphocytes % (Manual) 5.0 L Monocytes % (Manual) Nucleated RBC % Seg Neutrophils # Seg Neutrophils # Man 18.2 H Lymphocytes # (Manual) 1.0 L Monocytes # (Manual) PT INR POC ABG pH POC ABG pCO2 POC ABG pO2 Sodium Potassium Chloride Carbon Dioxide BUN Creatinine Glucose POC Glucose > 500 H 493 H Calcium Phosphorus Magnesium AST ALT Alkaline Phosphatase Lactate Dehydrogenase C-Reactive Protein Total Protein Albumin Urine WBC (Auto) Miscellaneous Test 04/16/18 04/16/18 04/16/18 06:24 08:52 14:05 WBC RBC Hgb Hct MCV MCHC RDW Plt Count Lymph % (Auto) [place] % (Auto) Lymph # [place] # Baso # Seg Neutrophils % Seg Neuts % (Manual) Lymphocytes % (Manual) Monocytes % (Manual) Nucleated RBC % Seg Neutrophils # Seg Neutrophils # Man Lymphocytes # (Manual) Monocytes # (Manual) PT INR POC ABG pH POC ABG pCO2 POC ABG pO2 Sodium Potassium 3.4 L Chloride Carbon Dioxide BUN Creatinine 0.5 L Glucose 166 H POC Glucose 173 H 196 H Calcium 8.2 L Phosphorus Magnesium AST ALT Alkaline Phosphatase Lactate Dehydrogenase C-Reactive Protein Total Protein Albumin Urine WBC (Auto) Miscellaneous Test 04/16/18 04/17/18 04/17/18 17:17 00:06 04:50 WBC 16.0 H RBC 3.12 L Hgb 8.7 L Hct 29.0 L MCV MCHC RDW 16.2 H Plt Count 455 H Lymph % (Auto) 9.4 L [place] % (Auto) 7.7 H Lymph # [place] # 1.2 H Baso # Seg Neutrophils % 81.9 H Seg Neuts % (Manual) Lymphocytes % (Manual) Monocytes % (Manual) Nucleated RBC % Seg Neutrophils # 13.1 H Seg Neutrophils # Man Lymphocytes # (Manual) Monocytes # (Manual) PT INR POC ABG pH POC ABG pCO2 POC ABG pO2 Sodium Potassium Chloride Carbon Dioxide BUN Creatinine Glucose POC Glucose 189 H 190 H Calcium Phosphorus Magnesium AST ALT Alkaline Phosphatase Lactate Dehydrogenase C-Reactive Protein Total Protein Albumin Urine WBC (Auto) Miscellaneous Test 04/17/18 04/17/18 04/17/18 04:50 05:38 07:17 WBC RBC Hgb Hct MCV MCHC RDW Plt Count Lymph % (Auto) [place] % (Auto) Lymph # [place] # Baso # Seg Neutrophils % Seg Neuts % (Manual) Lymphocytes % (Manual) Monocytes % (Manual) Nucleated RBC % Seg Neutrophils # Seg Neutrophils # Man Lymphocytes # (Manual) Monocytes # (Manual) PT INR POC ABG pH POC ABG pCO2 POC ABG pO2 Sodium 136 L Potassium 3.4 L Chloride 96.9 L Carbon Dioxide BUN Creatinine 0.6 L Glucose 167 H POC Glucose 190 H Calcium 7.6 L 8.0 L Phosphorus Magnesium AST ALT Alkaline Phosphatase Lactate Dehydrogenase C-Reactive Protein Total Protein Albumin Urine WBC (Auto) Miscellaneous Test 04/17/18 04/17/18 04/17/18 11:50 18:37 23:53 WBC RBC Hgb Hct MCV MCHC RDW Plt Count Lymph % (Auto) [place] % (Auto) Lymph # [place] # Baso # Seg Neutrophils % Seg Neuts % (Manual) Lymphocytes % (Manual) Monocytes % (Manual) Nucleated RBC % Seg Neutrophils # Seg Neutrophils # Man Lymphocytes # (Manual) Monocytes # (Manual) PT INR POC ABG pH POC ABG pCO2 POC ABG pO2 Sodium Potassium Chloride Carbon Dioxide BUN Creatinine Glucose POC Glucose 163 H 167 H 142 H Calcium Phosphorus Magnesium AST ALT Alkaline Phosphatase Lactate Dehydrogenase C-Reactive Protein Total Protein Albumin Urine WBC (Auto) Miscellaneous Test 04/18/18 04/18/18 04/18/18 05:59 10:05 12:25 WBC RBC Hgb Hct MCV MCHC RDW Plt Count Lymph % (Auto) [place] % (Auto) Lymph # [place] # Baso # Seg Neutrophils % Seg Neuts % (Manual) Lymphocytes % (Manual) Monocytes % (Manual) Nucleated RBC % Seg Neutrophils # Seg Neutrophils # Man Lymphocytes # (Manual) Monocytes # (Manual) PT INR POC ABG pH POC ABG pCO2 POC ABG pO2 Sodium Potassium Chloride Carbon Dioxide BUN Creatinine 0.5 L Glucose 127 H POC Glucose 144 H 171 H Calcium 8.2 L Phosphorus Magnesium AST ALT Alkaline Phosphatase Lactate Dehydrogenase C-Reactive Protein Total Protein Albumin Urine WBC (Auto) Miscellaneous Test 04/18/18 04/18/18 04/19/18 14:54 17:56 00:15 WBC 18.2 H RBC 2.95 L Hgb 8.9 L Hct 29.0 L MCV 98 H MCHC RDW 16.9 H Plt Count Lymph % (Auto) 9.2 L [place] % (Auto) Lymph # [place] # 1.2 H Baso # Seg Neutrophils % 82.7 H Seg Neuts % (Manual) Lymphocytes % (Manual) Monocytes % (Manual) Nucleated RBC % Seg Neutrophils # 15.1 H Seg Neutrophils # Man Lymphocytes # (Manual) Monocytes # (Manual) PT INR POC ABG pH POC ABG pCO2 POC ABG pO2 Sodium Potassium Chloride Carbon Dioxide BUN Creatinine Glucose POC Glucose 169 H 148 H Calcium Phosphorus Magnesium AST ALT Alkaline Phosphatase Lactate Dehydrogenase C-Reactive Protein Total Protein Albumin Urine WBC (Auto) Miscellaneous Test 04/19/18 04/19/18 04/19/18 05:21 08:00 08:00 WBC 18.7 H RBC Hgb Hct MCV MCHC RDW Plt Count 531 H Lymph % (Auto) [place] % (Auto) Lymph # [place] # Baso # Seg Neutrophils % Seg Neuts % (Manual) Lymphocytes % (Manual) Monocytes % (Manual) Nucleated RBC % Seg Neutrophils # Seg Neutrophils # Man Lymphocytes # (Manual) Monocytes # (Manual) PT INR POC ABG pH POC ABG pCO2 POC ABG pO2 Sodium Potassium Chloride Carbon Dioxide BUN 18 H Creatinine 0.5 L Glucose 141 H POC Glucose 146 H Calcium Phosphorus Magnesium AST ALT 76 H Alkaline Phosphatase 142 H Lactate Dehydrogenase C-Reactive Protein Total Protein Albumin 2.4 L Urine WBC (Auto) Miscellaneous Test 04/19/18 04/19/18 04/20/18 12:12 17:41 00:21 WBC RBC Hgb Hct MCV MCHC RDW Plt Count Lymph % (Auto) [place] % (Auto) Lymph # [place] # Baso # Seg Neutrophils % Seg Neuts % (Manual) Lymphocytes % (Manual) Monocytes % (Manual) Nucleated RBC % Seg Neutrophils # Seg Neutrophils # Man Lymphocytes # (Manual) Monocytes # (Manual) PT INR POC ABG pH POC ABG pCO2 POC ABG pO2 Sodium Potassium Chloride Carbon Dioxide BUN Creatinine Glucose POC Glucose 161 H 134 H 159 H Calcium Phosphorus Magnesium AST ALT Alkaline Phosphatase Lactate Dehydrogenase C-Reactive Protein Total Protein Albumin Urine WBC (Auto) Miscellaneous Test 04/20/18 04/20/18 04/20/18 04:00 04:00 07:05 WBC 16.5 H RBC 3.51 L Hgb 9.9 L Hct 30.1 L MCV MCHC RDW Plt Count 530 H Lymph % (Auto) 10.7 L [place] % (Auto) 9.2 H Lymph # [place] # 1.5 H Baso # Seg Neutrophils % 78.5 H Seg Neuts % (Manual) Lymphocytes % (Manual) Monocytes % (Manual) Nucleated RBC % Seg Neutrophils # 13.0 H Seg Neutrophils # Man Lymphocytes # (Manual) Monocytes # (Manual) PT INR POC ABG pH POC ABG pCO2 POC ABG pO2 Sodium Potassium Chloride Carbon Dioxide BUN 19 H Creatinine 0.6 L Glucose 185 H POC Glucose 166 H Calcium Phosphorus Magnesium AST ALT Alkaline Phosphatase Lactate Dehydrogenase C-Reactive Protein Total Protein Albumin Urine WBC (Auto) Miscellaneous Test 04/20/18 04/20/18 04/21/18 12:59 19:06 00:17 WBC RBC Hgb Hct MCV MCHC RDW Plt Count Lymph % (Auto) [place] % (Auto) Lymph # [place] # Baso # Seg Neutrophils % Seg Neuts % (Manual) Lymphocytes % (Manual) Monocytes % (Manual) Nucleated RBC % Seg Neutrophils # Seg Neutrophils # Man Lymphocytes # (Manual) Monocytes # (Manual) PT INR POC ABG pH POC ABG pCO2 POC ABG pO2 Sodium Potassium Chloride Carbon Dioxide BUN Creatinine Glucose POC Glucose 166 H 170 H 178 H Calcium Phosphorus Magnesium AST ALT Alkaline Phosphatase Lactate Dehydrogenase C-Reactive Protein Total Protein Albumin Urine WBC (Auto) Miscellaneous Test 04/21/18 04/21/18 04/21/18 06:15 06:15 06:39 WBC 15.1 H RBC 3.48 L Hgb 9.8 L Hct 30.2 L MCV MCHC RDW Plt Count 499 H Lymph % (Auto) [place] % (Auto) 8.7 H Lymph # [place] # 1.3 H Baso # 0.2 H Seg Neutrophils % 74.7 H Seg Neuts % (Manual) Lymphocytes % (Manual) Monocytes % (Manual) Nucleated RBC % Seg Neutrophils # 11.3 H Seg Neutrophils # Man Lymphocytes # (Manual) Monocytes # (Manual) PT INR POC ABG pH POC ABG pCO2 POC ABG pO2 Sodium Potassium Chloride 108.8 H Carbon Dioxide BUN 18 H Creatinine 0.6 L Glucose 157 H POC Glucose 153 H Calcium 8.0 L Phosphorus Magnesium AST ALT Alkaline Phosphatase Lactate Dehydrogenase C-Reactive Protein Total Protein Albumin Urine WBC (Auto) Miscellaneous Test 04/21/18 04/21/18 04/21/18 11:49 17:07 22:07 WBC RBC Hgb Hct MCV MCHC RDW Plt Count Lymph % (Auto) [place] % (Auto) Lymph # [place] # Baso # Seg Neutrophils % Seg Neuts % (Manual) Lymphocytes % (Manual) Monocytes % (Manual) Nucleated RBC % Seg Neutrophils # Seg Neutrophils # Man Lymphocytes # (Manual) Monocytes # (Manual) PT INR POC ABG pH POC ABG pCO2 POC ABG pO2 Sodium Potassium Chloride Carbon Dioxide BUN Creatinine Glucose POC Glucose 184 H 163 H 169 H Calcium Phosphorus Magnesium AST ALT Alkaline Phosphatase Lactate Dehydrogenase C-Reactive Protein Total Protein Albumin Urine WBC (Auto) Miscellaneous Test 04/22/18 04/22/18 04/22/18 07:00 07:00 08:52 WBC 14.0 H RBC 3.26 L Hgb 9.3 L Hct 28.6 L MCV MCHC RDW Plt Count 460 H Lymph % (Auto) 13.0 L [place] % (Auto) 10.1 H Lymph # [place] # 1.4 H Baso # Seg Neutrophils % 74.4 H Seg Neuts % (Manual) Lymphocytes % (Manual) Monocytes % (Manual) Nucleated RBC % Seg Neutrophils # 10.4 H Seg Neutrophils # Man Lymphocytes # (Manual) Monocytes # (Manual) PT INR POC ABG pH POC ABG pCO2 POC ABG pO2 Sodium Potassium Chloride Carbon Dioxide BUN 19 H Creatinine 0.6 L Glucose 159 H POC Glucose 156 H Calcium Phosphorus Magnesium AST ALT Alkaline Phosphatase Lactate Dehydrogenase C-Reactive Protein Total Protein Albumin Urine WBC (Auto) Miscellaneous Test 04/22/18 04/22/18 04/22/18 12:34 16:20 21:42 WBC RBC Hgb Hct MCV MCHC RDW Plt Count Lymph % (Auto) [place] % (Auto) Lymph # [place] # Baso # Seg Neutrophils % Seg Neuts % (Manual) Lymphocytes % (Manual) Monocytes % (Manual) Nucleated RBC % Seg Neutrophils # Seg Neutrophils # Man Lymphocytes # (Manual) Monocytes # (Manual) PT INR POC ABG pH POC ABG pCO2 POC ABG pO2 Sodium Potassium Chloride Carbon Dioxide BUN Creatinine Glucose POC Glucose 150 H 148 H 134 H Calcium Phosphorus Magnesium AST ALT Alkaline Phosphatase Lactate Dehydrogenase C-Reactive Protein Total Protein Albumin Urine WBC (Auto) Miscellaneous Test 04/23/18 04/23/18 04/23/18 05:45 05:45 08:45 WBC 12.5 H RBC 3.41 L Hgb 9.6 L Hct 29.6 L MCV MCHC RDW Plt Count 441 H Lymph % (Auto) [place] % (Auto) 11.3 H Lymph # [place] # 1.4 H Baso # Seg Neutrophils % 70.2 H Seg Neuts % (Manual) Lymphocytes % (Manual) Monocytes % (Manual) Nucleated RBC % Seg Neutrophils # 9.0 H Seg Neutrophils # Man Lymphocytes # (Manual) Monocytes # (Manual) PT INR POC ABG pH POC ABG pCO2 POC ABG pO2 Sodium Potassium Chloride Carbon Dioxide BUN 19 H Creatinine 0.6 L Glucose 119 H POC Glucose 154 H Calcium Phosphorus Magnesium 2.40 H AST ALT Alkaline Phosphatase Lactate Dehydrogenase C-Reactive Protein Total Protein Albumin Urine WBC (Auto) Miscellaneous Test 04/23/18 04/23/18 04/24/18 11:45 22:09 07:26 WBC RBC Hgb Hct MCV MCHC RDW Plt Count Lymph % (Auto) [place] % (Auto) Lymph # [place] # Baso # Seg Neutrophils % Seg Neuts % (Manual) Lymphocytes % (Manual) Monocytes % (Manual) Nucleated RBC % Seg Neutrophils # Seg Neutrophils # Man Lymphocytes # (Manual) Monocytes # (Manual) PT INR POC ABG pH POC ABG pCO2 POC ABG pO2 Sodium Potassium Chloride Carbon Dioxide BUN Creatinine Glucose POC Glucose 132 H 113 H 164 H Calcium Phosphorus Magnesium AST ALT Alkaline Phosphatase Lactate Dehydrogenase C-Reactive Protein Total Protein Albumin Urine WBC (Auto) Miscellaneous Test 04/24/18 04/24/18 04/24/18 08:30 08:30 11:27 WBC 14.4 H RBC 3.30 L Hgb 9.6 L Hct 28.4 L MCV MCHC RDW Plt Count Lymph % (Auto) 12.8 L [place] % (Auto) 9.1 H Lymph # [place] # 1.3 H Baso # 0.2 H Seg Neutrophils % 76.4 H Seg Neuts % (Manual) Lymphocytes % (Manual) Monocytes % (Manual) Nucleated RBC % Seg Neutrophils # 11.0 H Seg Neutrophils # Man Lymphocytes # (Manual) Monocytes # (Manual) PT INR POC ABG pH POC ABG pCO2 POC ABG pO2 Sodium Potassium Chloride Carbon Dioxide BUN 18 H Creatinine Glucose 155 H POC Glucose 133 H Calcium Phosphorus Magnesium AST ALT Alkaline Phosphatase Lactate Dehydrogenase C-Reactive Protein Total Protein Albumin Urine WBC (Auto) Miscellaneous Test 04/24/18 04/24/18 04/25/18 16:32 22:17 06:16 WBC RBC Hgb Hct MCV MCHC RDW Plt Count Lymph % (Auto) [place] % (Auto) Lymph # [place] # Baso # Seg Neutrophils % Seg Neuts % (Manual) Lymphocytes % (Manual) Monocytes % (Manual) Nucleated RBC % Seg Neutrophils # Seg Neutrophils # Man Lymphocytes # (Manual) Monocytes # (Manual) PT INR POC ABG pH POC ABG pCO2 POC ABG pO2 Sodium Potassium Chloride Carbon Dioxide BUN Creatinine Glucose POC Glucose 132 H 124 H 133 H Calcium Phosphorus Magnesium AST ALT Alkaline Phosphatase Lactate Dehydrogenase C-Reactive Protein Total Protein Albumin Urine WBC (Auto) Miscellaneous Test 04/25/18 04/25/18 04/25/18 07:39 11:10 11:31 WBC 11.3 H RBC 3.41 L Hgb 9.8 L Hct 29.5 L MCV MCHC RDW Plt Count Lymph % (Auto) 12.3 L [place] % (Auto) 9.0 H Lymph # [place] # 1.0 H Baso # Seg Neutrophils % 77.3 H Seg Neuts % (Manual) Lymphocytes % (Manual) Monocytes % (Manual) Nucleated RBC % Seg Neutrophils # 8.7 H Seg Neutrophils # Man Lymphocytes # (Manual) Monocytes # (Manual) PT INR POC ABG pH POC ABG pCO2 POC ABG pO2 Sodium Potassium Chloride Carbon Dioxide BUN Creatinine Glucose POC Glucose 141 H 145 H Calcium Phosphorus Magnesium AST ALT Alkaline Phosphatase Lactate Dehydrogenase C-Reactive Protein Total Protein Albumin Urine WBC (Auto) Miscellaneous Test 04/25/18 04/25/18 04/26/18 11:31 16:14 00:45 WBC RBC Hgb Hct MCV MCHC RDW Plt Count Lymph % (Auto) [place] % (Auto) Lymph # [place] # Baso # Seg Neutrophils % Seg Neuts % (Manual) Lymphocytes % (Manual) Monocytes % (Manual) Nucleated RBC % Seg Neutrophils # Seg Neutrophils # Man Lymphocytes # (Manual) Monocytes # (Manual) PT INR POC ABG pH POC ABG pCO2 POC ABG pO2 Sodium Potassium Chloride Carbon Dioxide BUN Creatinine Glucose 153 H POC Glucose 163 H 141 H Calcium Phosphorus Magnesium AST ALT Alkaline Phosphatase Lactate Dehydrogenase C-Reactive Protein Total Protein Albumin Urine WBC (Auto) Miscellaneous Test 04/26/18 04/26/18 04/26/18 06:10 06:10 06:37 WBC 14.5 H RBC 3.60 L Hgb Hct MCV MCHC RDW Plt Count Lymph % (Auto) [place] % (Auto) 9.6 H Lymph # [place] # 1.4 H Baso # 0.2 H Seg Neutrophils % 75.0 H Seg Neuts % (Manual) Lymphocytes % (Manual) Monocytes % (Manual) Nucleated RBC % Seg Neutrophils # 10.9 H Seg Neutrophils # Man Lymphocytes # (Manual) Monocytes # (Manual) PT INR POC ABG pH POC ABG pCO2 POC ABG pO2 Sodium Potassium Chloride Carbon Dioxide BUN Creatinine Glucose 138 H POC Glucose 131 H Calcium Phosphorus Magnesium AST ALT Alkaline Phosphatase Lactate Dehydrogenase C-Reactive Protein Total Protein Albumin Urine WBC (Auto) Miscellaneous Test 04/26/18 04/26/18 04/26/18 11:34 16:10 16:39 WBC RBC Hgb Hct MCV MCHC RDW Plt Count Lymph % (Auto) [place] % (Auto) Lymph # [place] # Baso # Seg Neutrophils % Seg Neuts % (Manual) Lymphocytes % (Manual) Monocytes % (Manual) Nucleated RBC % Seg Neutrophils # Seg Neutrophils # Man Lymphocytes # (Manual) Monocytes # (Manual) PT 17.2 H INR 1.33 H POC ABG pH POC ABG pCO2 POC ABG pO2 Sodium Potassium Chloride Carbon Dioxide BUN Creatinine Glucose POC Glucose 129 H Calcium Phosphorus Magnesium AST ALT Alkaline Phosphatase Lactate Dehydrogenase 266 H C-Reactive Protein Total Protein Albumin Urine WBC (Auto) Miscellaneous Test 04/26/18 04/26/18 04/27/18 16:59 22:39 05:50 WBC RBC Hgb Hct MCV MCHC RDW Plt Count Lymph % (Auto) [place] % (Auto) Lymph # [place] # Baso # Seg Neutrophils % Seg Neuts % (Manual) Lymphocytes % (Manual) Monocytes % (Manual) Nucleated RBC % Seg Neutrophils # Seg Neutrophils # Man Lymphocytes # (Manual) Monocytes # (Manual) PT INR POC ABG pH POC ABG pCO2 POC ABG pO2 Sodium Potassium Chloride 97.4 L Carbon Dioxide BUN Creatinine 0.6 L Glucose 135 H POC Glucose 145 H 187 H Calcium 8.2 L Phosphorus Magnesium AST 97 H ALT 222 H Alkaline Phosphatase 191 H Lactate Dehydrogenase C-Reactive Protein Total Protein Albumin 2.5 L Urine WBC (Auto) Miscellaneous Test 04/27/18 04/27/18 04/27/18 11:52 16:35 22:23 WBC RBC Hgb Hct MCV MCHC RDW Plt Count Lymph % (Auto) [place] % (Auto) Lymph # [place] # Baso # Seg Neutrophils % Seg Neuts % (Manual) Lymphocytes % (Manual) Monocytes % (Manual) Nucleated RBC % Seg Neutrophils # Seg Neutrophils # Man Lymphocytes # (Manual) Monocytes # (Manual) PT INR POC ABG pH POC ABG pCO2 POC ABG pO2 Sodium Potassium Chloride Carbon Dioxide BUN Creatinine Glucose POC Glucose 162 H 136 H 188 H Calcium Phosphorus Magnesium AST ALT Alkaline Phosphatase Lactate Dehydrogenase C-Reactive Protein Total Protein Albumin Urine WBC (Auto) Miscellaneous Test 04/28/18 04/28/18 04/28/18 07:06 09:15 12:11 WBC RBC Hgb Hct MCV MCHC RDW Plt Count Lymph % (Auto) [place] % (Auto) Lymph # [place] # Baso # Seg Neutrophils % Seg Neuts % (Manual) Lymphocytes % (Manual) Monocytes % (Manual) Nucleated RBC % Seg Neutrophils # Seg Neutrophils # Man Lymphocytes # (Manual) Monocytes # (Manual) PT INR POC ABG pH POC ABG pCO2 POC ABG pO2 Sodium Potassium Chloride Carbon Dioxide BUN Creatinine 0.5 L Glucose 149 H POC Glucose 160 H 107 H Calcium 8.0 L Phosphorus Magnesium AST ALT Alkaline Phosphatase Lactate Dehydrogenase C-Reactive Protein Total Protein Albumin Urine WBC (Auto) Miscellaneous Test 04/28/18 04/29/18 04/29/18 21:57 05:25 05:59 WBC RBC Hgb Hct MCV MCHC RDW Plt Count Lymph % (Auto) [place] % (Auto) Lymph # [place] # Baso # Seg Neutrophils % Seg Neuts % (Manual) Lymphocytes % (Manual) Monocytes % (Manual) Nucleated RBC % Seg Neutrophils # Seg Neutrophils # Man Lymphocytes # (Manual) Monocytes # (Manual) PT INR POC ABG pH POC ABG pCO2 POC ABG pO2 Sodium Potassium Chloride Carbon Dioxide BUN Creatinine 0.5 L Glucose 122 H POC Glucose 134 H 130 H Calcium 8.3 L Phosphorus Magnesium AST ALT Alkaline Phosphatase Lactate Dehydrogenase C-Reactive Protein Total Protein Albumin Urine WBC (Auto) Miscellaneous Test 04/29/18 04/29/18 04/29/18 12:14 17:45 22:47 WBC RBC Hgb Hct MCV MCHC RDW Plt Count Lymph % (Auto) [place] % (Auto) Lymph # [place] # Baso # Seg Neutrophils % Seg Neuts % (Manual) Lymphocytes % (Manual) Monocytes % (Manual) Nucleated RBC % Seg Neutrophils # Seg Neutrophils # Man Lymphocytes # (Manual) Monocytes # (Manual) PT INR POC ABG pH POC ABG pCO2 POC ABG pO2 Sodium Potassium Chloride Carbon Dioxide BUN Creatinine Glucose POC Glucose 171 H 142 H 317 H Calcium Phosphorus Magnesium AST ALT Alkaline Phosphatase Lactate Dehydrogenase C-Reactive Protein Total Protein Albumin Urine WBC (Auto) Miscellaneous Test 04/30/18 04/30/18 04/30/18 06:18 08:26 11:20 WBC RBC 3.16 L Hgb 9.1 L Hct 27.0 L MCV MCHC RDW Plt Count Lymph % (Auto) [place] % (Auto) 11.8 H Lymph # [place] # Baso # Seg Neutrophils % Seg Neuts % (Manual) Lymphocytes % (Manual) Monocytes % (Manual) Nucleated RBC % Seg Neutrophils # Seg Neutrophils # Man Lymphocytes # (Manual) Monocytes # (Manual) PT INR POC ABG pH POC ABG pCO2 POC ABG pO2 Sodium 135 L Potassium Chloride Carbon Dioxide 21 L BUN Creatinine 0.5 L Glucose 155 H POC Glucose 166 H Calcium Phosphorus Magnesium AST ALT Alkaline Phosphatase Lactate Dehydrogenase C-Reactive Protein Total Protein Albumin Urine WBC (Auto) Miscellaneous Test 04/30/18 04/30/18 05/01/18 12:24 18:05 02:52 WBC RBC Hgb Hct MCV MCHC RDW Plt Count Lymph % (Auto) [place] % (Auto) Lymph # [place] # Baso # Seg Neutrophils % Seg Neuts % (Manual) Lymphocytes % (Manual) Monocytes % (Manual) Nucleated RBC % Seg Neutrophils # Seg Neutrophils # Man Lymphocytes # (Manual) Monocytes # (Manual) PT INR POC ABG pH POC ABG pCO2 POC ABG pO2 Sodium Potassium Chloride Carbon Dioxide BUN Creatinine Glucose POC Glucose 176 H 147 H 132 H Calcium Phosphorus Magnesium AST ALT Alkaline Phosphatase Lactate Dehydrogenase C-Reactive Protein Total Protein Albumin Urine WBC (Auto) Miscellaneous Test 05/01/18 05/02/18 05/02/18 04:00 05:50 11:51 WBC RBC Hgb Hct MCV MCHC RDW Plt Count Lymph % (Auto) [place] % (Auto) Lymph # [place] # Baso # Seg Neutrophils % Seg Neuts % (Manual) Lymphocytes % (Manual) Monocytes % (Manual) Nucleated RBC % Seg Neutrophils # Seg Neutrophils # Man Lymphocytes # (Manual) Monocytes # (Manual) PT INR POC ABG pH POC ABG pCO2 POC ABG pO2 Sodium 134 L Potassium Chloride Carbon Dioxide BUN Creatinine 0.6 L 0.6 L Glucose 101 H 122 H POC Glucose 215 H Calcium Phosphorus Magnesium AST ALT Alkaline Phosphatase Lactate Dehydrogenase C-Reactive Protein Total Protein Albumin Urine WBC (Auto) Miscellaneous Test 05/02/18 05/03/18 05/03/18 17:40 00:58 06:10 WBC RBC Hgb Hct MCV MCHC RDW Plt Count Lymph % (Auto) [place] % (Auto) Lymph # [place] # Baso # Seg Neutrophils % Seg Neuts % (Manual) Lymphocytes % (Manual) Monocytes % (Manual) Nucleated RBC % Seg Neutrophils # Seg Neutrophils # Man Lymphocytes # (Manual) Monocytes # (Manual) PT INR POC ABG pH POC ABG pCO2 POC ABG pO2 Sodium Potassium Chloride Carbon Dioxide BUN Creatinine Glucose POC Glucose 142 H 135 H 107 H Calcium Phosphorus Magnesium AST ALT Alkaline Phosphatase Lactate Dehydrogenase C-Reactive Protein Total Protein Albumin Urine WBC (Auto) Miscellaneous Test 05/03/18 05/03/18 05/03/18 08:01 16:44 17:08 WBC RBC 3.27 L Hgb 9.3 L Hct 27.8 L MCV MCHC RDW Plt Count Lymph % (Auto) [place] % (Auto) 11.9 H Lymph # [place] # 1.0 H Baso # Seg Neutrophils % Seg Neuts % (Manual) Lymphocytes % (Manual) Monocytes % (Manual) Nucleated RBC % Seg Neutrophils # Seg Neutrophils # Man Lymphocytes # (Manual) Monocytes # (Manual) PT INR POC ABG pH POC ABG pCO2 POC ABG pO2 Sodium Potassium Chloride Carbon Dioxide BUN Creatinine 0.6 L Glucose 128 H POC Glucose 107 H Calcium Phosphorus Magnesium AST ALT Alkaline Phosphatase Lactate Dehydrogenase C-Reactive Protein Total Protein Albumin Urine WBC (Auto) Miscellaneous Test 05/03/18 05/04/18 05/04/18 23:47 06:01 06:37 WBC RBC Hgb Hct MCV MCHC RDW Plt Count Lymph % (Auto) [place] % (Auto) Lymph # [place] # Baso # Seg Neutrophils % Seg Neuts % (Manual) Lymphocytes % (Manual) Monocytes % (Manual) Nucleated RBC % Seg Neutrophils # Seg Neutrophils # Man Lymphocytes # (Manual) Monocytes # (Manual) PT INR POC ABG pH POC ABG pCO2 POC ABG pO2 Sodium Potassium Chloride Carbon Dioxide BUN Creatinine 0.6 L Glucose 140 H POC Glucose 149 H 140 H Calcium 8.1 L Phosphorus Magnesium AST 74 H ALT 169 H Alkaline Phosphatase 203 H Lactate Dehydrogenase C-Reactive Protein Total Protein Albumin 2.5 L Urine WBC (Auto) Miscellaneous Test 05/04/18 05/04/18 05/04/18 11:51 16:43 23:36 WBC RBC Hgb Hct MCV MCHC RDW Plt Count Lymph % (Auto) [place] % (Auto) Lymph # [place] # Baso # Seg Neutrophils % Seg Neuts % (Manual) Lymphocytes % (Manual) Monocytes % (Manual) Nucleated RBC % Seg Neutrophils # Seg Neutrophils # Man Lymphocytes # (Manual) Monocytes # (Manual) PT INR POC ABG pH POC ABG pCO2 POC ABG pO2 Sodium Potassium Chloride Carbon Dioxide BUN Creatinine Glucose POC Glucose 110 H 127 H 170 H Calcium Phosphorus Magnesium AST ALT Alkaline Phosphatase Lactate Dehydrogenase C-Reactive Protein Total Protein Albumin Urine WBC (Auto) Miscellaneous Test 05/05/18 05/05/18 05/05/18 09:46 12:07 22:55 WBC RBC Hgb Hct MCV MCHC RDW Plt Count Lymph % (Auto) [place] % (Auto) Lymph # [place] # Baso # Seg Neutrophils % Seg Neuts % (Manual) Lymphocytes % (Manual) Monocytes % (Manual) Nucleated RBC % Seg Neutrophils # Seg Neutrophils # Man Lymphocytes # (Manual) Monocytes # (Manual) PT INR POC ABG pH POC ABG pCO2 POC ABG pO2 Sodium Potassium Chloride Carbon Dioxide BUN Creatinine 0.5 L Glucose POC Glucose 215 H 160 H Calcium Phosphorus Magnesium AST ALT Alkaline Phosphatase Lactate Dehydrogenase C-Reactive Protein Total Protein Albumin Urine WBC (Auto) Miscellaneous Test 05/06/18 05/06/18 04:55 06:09 WBC RBC Hgb Hct MCV MCHC RDW Plt Count Lymph % (Auto) [place] % (Auto) Lymph # [place] # Baso # Seg Neutrophils % Seg Neuts % (Manual) Lymphocytes % (Manual) Monocytes % (Manual) Nucleated RBC % Seg Neutrophils # Seg Neutrophils # Man Lymphocytes # (Manual) Monocytes # (Manual) PT INR POC ABG pH POC ABG pCO2 POC ABG pO2 Sodium 135 L Potassium Chloride Carbon Dioxide BUN Creatinine 0.6 L Glucose 141 H POC Glucose 158 H Calcium 8.2 L Phosphorus 2.10 L D Magnesium AST ALT Alkaline Phosphatase Lactate Dehydrogenase C-Reactive Protein Total Protein Albumin Urine WBC (Auto) Miscellaneous Test Allied health notes reviewed: nursing
[2018-05-06] MEDS: ROCEPHIN/NS 2 GM/100 ML 2 GM/100 ML BAG IV SCH (12:18)
[2018-05-06] MEDS: SODIUM CHLORIDE FLUSH SYRINGE 10 ML IV SCH ×2 (12:19→21:38)
[2018-05-06] MEDS: DIFLUCAN 200 MG/100 ML BAG IV SCH (13:12)
[2018-05-06] MEDS ORDERED: TPN ADULT 2,000 ML IV SCH (20:00)
[2018-05-06] MEDS: LOVENOX SUB-Q SCH (21:36)
[2018-05-07 04:54] LABS: Basophils % (Auto) 0.3 % (0.0-1.8); Eosinophils % (Auto) 0.1 % (0.0-4.3); Hemoglobin 9.2 gm/dl (10.1-14.3); Lymphocytes # (Auto) 3.8 K/mm3 (1.2-5.4); Lymphocytes % (Auto) 26.1 % (13.4-35.0); Mean Corpuscular HGB Conc 33 % (30-34); Mean Corpuscular Hemoglobin 28 pg (28-32); Mean Corpuscular Volume 85 fl (79-97); Monocytes # (Auto) 1.2 K/mm3 (0.0-0.8); Monocytes % (Auto) 7.9 % (0.0-7.3); Platelet Count 306 K/mm3 (140-440); Red Blood Count 3.29 M/mm3 (3.65-5.03); Red Cell Distribution Width 14.8 % (13.2-15.2)
[2018-05-07] MEDS: ZOFRAN IV PRN ×2 (05:00→23:57)
[2018-05-07] MEDS: DILAUDID IV PRN ×4 (05:00→20:07)
[2018-05-07 05:05] LABS: BUN/Creatinine Ratio 19; Blood Urea Nitrogen 13 mg/dL (7-17); Calcium 8.4 mg/dL (8.4-10.2); Hemolysis Index 0
[2018-05-07] MEDS: PULMICORT IH SCH (08:46)
[2018-05-07] MEDS: BROVANA NEBU IH SCH (08:47)
[2018-05-07] MEDS: ROCEPHIN/NS 2 GM/100 ML 2 GM/100 ML BAG IV SCH (10:12)
[2018-05-07] MEDS: SODIUM CHLORIDE FLUSH SYRINGE 10 ML IV SCH ×2 (10:12→22:00)
[2018-05-07] MEDS: PROTONIX IV SCH ×2 (10:13→21:57)
--- NOTE | 2018-05-07 11:54 | Progress Note ---
Assessment and Plan Assessment: 1) Sepsis: still high fever, still leukocytosis. Etiology most likely persistent gastric leaks 2) Gastric perforation and intra-abdominal fluid collection. -S/P OR for ex lap, abdominal washout, repair of gastric perforation and placement of drains on 04/08/18. -04/07 peritoneal fluid + Serratia x 2. -04/10 abdmen cx Dianna albicans -Repeat CTA 04/09 showed no PE, however increase in left pleural effusion with dense consolidation consistent with atelectasis and a large fluid collection 14 x 4.7 cm in the left lobe of the fever with air bubbles. -CRP=52 --> 45 -procal=0.3 -Repeat CT showed large left pleural effusion, smaller left hep lobe collection and large splenic collection 4.2x6.1 cm -S/P further drain placement 04/16 cx +MSSA and Leuconostoc. 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 5) Acute diarrhea. ?antibiotic related. Recommendations: -continue fluconazole and ceftriaxone. Pt will likely continue to be febrile until stomach leaks are fixed. Extensive exposure to broad spectrum antibiotics , high risk for antibiotic resistance -agree with transfer to [facility] for gastric stent placement LATASHA Katerin Cross MD Infectious Diseases Specialist [facility] M [phone] O [phone] Subjective Date of service: 05/07/18 Principal diagnosis: Sepsis Syndrome; Acute Hypoxemic Resp Failure; Acute Encephalopathy Interval history: tmax 102, feels the same still abd pain Microbiology: Blood cultures: 04/07 neg 04/10 neg 04/24 ngtd 05/04 ngtd Peritoneal cultures: 04/07 Serratia x 2 04/10 ngtd 04/16 MSSA and Strep sp Pleural fluid: 04/26 neg Current Antimicrobials: ceftriaxone fluconazole Previous Antimicrobials: Fluconazole Zosyn 04/08-04/14 vanco 04/10-04/19 cefepime and flagyl 04/14-04/24zosyn 04/26 zyvox 04/26 Objective - Exam Narrative Exam: General appearance: Alert in mild shortness of breath NC O2 Eyes: anicteric sclerae, moist conjunctivae; no lid-lag; PERRLA HENT: Atraumatic; oropharynx NGT Neck: Trachea midline; supple, no thyromegaly or lymphadenopathy Lungs: CTA CV: RRR Abdomen: Obese, Soft, midline surgical wound covered with dressings drain in place KRISTI R minimal purulent output KRISTI L minimal serosang output, new left chest tube Extremities: No peripheral edema or extremity lymphadenopathy Skin: Normal temperature, turgor and texture; no rash, ulcers or subcutaneous nodules Psych: Appropriate affect, alert and oriented to person, place and time. Neuro: alert and oriented x 3. Moving all extermities Lines: right PICC, staton - Constitutional Vitals: Vital Signs Temp Pulse Resp BP Pulse Ox 98.7 F 111 H 18 132/71 98 05/07/18 08:20 05/07/18 08:56 05/07/18 08:56 05/07/18 08:20 05/07/18 08:20 Temperature -Last 24 Hours Temperature 98.7 F Temperature 101.2 F Temperature 103.0 F Temperature 100.0 F - Labs CBC & Chem 7: 05/07/18 04:40 05/07/18 04:40 Labs: Abnormal lab results 05/06/18 05/07/18 05/07/18 Range/Units 23:03 04:40 11:26 WBC 14.6 H (4.5-11.0) K/mm3 RBC 3.29 L (3.65-5.03) M/mm3 Hgb 9.2 L (10.1-14.3) gm/dl Hct 28.0 L (30.3-42.9) % [place] % (Auto) 7.9 H (0.0-7.3) % [place] # 1.2 H (0.0-0.8) K/mm3 Seg Neutrophils # 9.6 H (1.8-7.7) K/mm3 POC Glucose 159 H 116 H (70-105)
[2018-05-07] MEDS: DIFLUCAN 200 MG/100 ML BAG IV SCH (14:53)
[2018-05-07] MEDS: TRANSDERM-SCOP TD SCH (15:00)
--- NOTE | 2018-05-07 19:19 | Progress Note ---
Assessment and Plan Sepsis with altered mental status in the setting of the systemic inflammatory response syndrom. Perforated abdominal viscus status post exploratory laparotomy and repair. Obesity. Pleural effusion Bilateral lower lobe infiltrates Obstructive sleep apnea according to the history. Acute encephalopathy, presumably toxic metabolic( resolved) History of hypertension. Arthritis. Gastroesophageal reflux disease. Morbid obesity. Acute hypoxemic respiratory failure Leukocytosis Hyperglycemia--spurious - Continue incentive spirometry and airway expansion measures -bronchodilators prn -Antibiotics/anti-infectives per ID - continue TPN , supportive care - continue GI & VTE prophylaxis - wound care per WCT / RN and surgeon - continue other care per attending / other consultants -stable from Pulmonary standpoint for discharge planning Awaiting transfer to [facility] for evaluation of a gastric stent Subjective Date of service: 05/07/18 Principal diagnosis: Sepsis Syndrome; Acute Hypoxemic Resp Failure; Acute Encephalopathy Interval history: Sepsis Syndrome; Acute Hypoxemic Resp Failure; Acute Encephalopathy Seen and examined at bedside; 24hour events reviewed; nursing and respiratory care staff consulted; no adverse overnight events reported to me; resting in bed ; much more appropriate mentally;s/p thoracentesis... Ambulating, feels great. No chest pain, no shortness of breath. On going leak--fevers today with worsening leukocytosis. States she continues to have chills and abdominal pain. Awaiting transfer to [place] for evaluation for gastric stent Objective Vital Signs - 12hr 05/07/18 05/07/18 05/07/18 08:20 08:48 08:56 Temperature 98.7 F Pulse Rate 112 H Pulse Rate [ 109 H 111 H Anterior Bilateral] Respiratory 20 Rate Respiratory 18 18 Rate [Anterior Bilateral] Blood Pressure 132/71 [Left] O2 Sat by Pulse 98 Oximetry 05/07/18 05/07/18 12:20 16:30 Temperature 98.4 F 99.6 F Pulse Rate 105 H 91 H Pulse Rate [ Anterior Bilateral] Respiratory 20 20 Rate Respiratory Rate [Anterior Bilateral] Blood Pressure 143/82 143/95 [Left] O2 Sat by Pulse 98 96 Oximetry Constitutional: no acute distress, alert Eyes: non-icteric ENT: oropharynx moist, other (no thyromegaly) Neck: supple, no lymphadenopathy, no JVD, other (large neck circumference) Effort: normal Ascultation: Bilateral: diminished breath sounds, rhonchi (scant in bases) Percussion: Left: dull (base), Bilateral: not dull Cardiovascular: regular rate and rhythm, other (No R/M) Gastrointestinal: normoactive bowel sounds, soft, non-tender, non-distended, other (no palpable HSM, KRISTI drains) Integumentary: normal Extremities: no cyanosis, no edema, pulses normal, no ischemia or petechiae Neurologic: normal mental status, non-focal exam, pupils equal and round, CN II- XII normal, motor strength normal and Psychiatric: mood appropriate, affect normal CBC and BMP: 05/07/18 04:40 05/07/18 04:40 ABG, PT/INR, D-dimer: ABG POC ABG pH 7.519 (7.35-7.45) H 04/10/18 12:59 POC ABG pCO2 29.3 (35-45) L 04/10/18 12:59 POC ABG pO2 63 (80-105) L 04/10/18 12:59 POC ABG HCO3 23.9 04/10/18 12:59 POC ABG Total CO2 25 04/10/18 12:59 POC ABG O2 Sat 94 04/10/18 12:59 PT/INR, D-dimer PT 17.2 Sec. (12.2-14.9) H 04/26/18 16:39 INR 1.33 (0.87-1.13) H 04/26/18 16:39 Abnormal lab findings: Abnormal Labs 04/07/18 04/07/18 04/07/18 00:05 00:05 09:41 WBC 18.4 H 21.3 H RBC Hgb Hct MCV MCHC RDW Plt Count Lymph % (Auto) 4.5 L [place] % (Auto) Lymph # 0.8 L [place] # 1.2 H Baso # Seg Neutrophils % 88.9 H Seg Neuts % (Manual) 85.0 H Lymphocytes % (Manual) 4.0 L Monocytes % (Manual) Nucleated RBC % Seg Neutrophils # 16.4 H Seg Neutrophils # Man 18.1 H Lymphocytes # (Manual) 0.9 L Monocytes # (Manual) 1.1 H PT INR POC ABG pH POC ABG pCO2 POC ABG pO2 Sodium Potassium Chloride Carbon Dioxide BUN Creatinine Glucose 123 H POC Glucose Calcium 8.0 L Phosphorus Magnesium 1.60 L AST 59 H ALT Alkaline Phosphatase Lactate Dehydrogenase C-Reactive Protein Total Protein Albumin 2.9 L Urine WBC (Auto) Miscellaneous Test 04/07/18 04/08/18 04/08/18 09:41 00:20 10:25 WBC 19.2 H RBC Hgb Hct MCV MCHC RDW Plt Count Lymph % (Auto) 5.4 L [place] % (Auto) Lymph # 1.0 L [place] # 1.1 H Baso # Seg Neutrophils % 88.9 H Seg Neuts % (Manual) Lymphocytes % (Manual) Monocytes % (Manual) Nucleated RBC % Seg Neutrophils # 17.1 H Seg Neutrophils # Man Lymphocytes # (Manual) Monocytes # (Manual) PT INR POC ABG pH POC ABG pCO2 POC ABG pO2 Sodium Potassium 3.3 L Chloride 95.1 L Carbon Dioxide 21 L BUN Creatinine Glucose 113 H POC Glucose Calcium Phosphorus Magnesium AST ALT Alkaline Phosphatase Lactate Dehydrogenase C-Reactive Protein Total Protein Albumin 3.6 L Urine WBC (Auto) 45.0 H Miscellaneous Test 04/08/18 04/08/18 04/08/18 10:25 13:33 23:53 WBC 12.8 H RBC Hgb Hct MCV MCHC RDW Plt Count Lymph % (Auto) [place] % (Auto) Lymph # [place] # Baso # Seg Neutrophils % Seg Neuts % (Manual) 97.0 H Lymphocytes % (Manual) 2.0 L Monocytes % (Manual) Nucleated RBC % Seg Neutrophils # Seg Neutrophils # Man 12.4 H Lymphocytes # (Manual) 0.3 L Monocytes # (Manual) PT INR POC ABG pH POC ABG pCO2 POC ABG pO2 Sodium Potassium 3.5 L Chloride Carbon Dioxide BUN Creatinine Glucose 123 H POC Glucose Calcium 7.9 L Phosphorus Magnesium AST 53 H ALT Alkaline Phosphatase Lactate Dehydrogenase C-Reactive Protein 52.00 H Total Protein 6.1 L Albumin 2.7 L Urine WBC (Auto) Miscellaneous Test 04/09/18 04/09/18 04/09/18 04:20 04:20 13:38 WBC 16.2 H RBC Hgb Hct MCV MCHC RDW Plt Count Lymph % (Auto) [place] % (Auto) Lymph # [place] # Baso # Seg Neutrophils % Seg Neuts % (Manual) 89.0 H Lymphocytes % (Manual) 4.0 L Monocytes % (Manual) Nucleated RBC % Seg Neutrophils # Seg Neutrophils # Man 14.4 H Lymphocytes # (Manual) 0.6 L Monocytes # (Manual) PT INR POC ABG pH 7.494 H POC ABG pCO2 31.6 L POC ABG pO2 68 L Sodium Potassium 3.5 L Chloride Carbon Dioxide BUN Creatinine 0.6 L Glucose 117 H POC Glucose Calcium 7.9 L Phosphorus 1.50 L D Magnesium AST ALT Alkaline Phosphatase Lactate Dehydrogenase C-Reactive Protein Total Protein 5.6 L Albumin 2.9 L Urine WBC (Auto) Miscellaneous Test 04/09/18 04/09/18 04/09/18 18:25 21:45 21:45 WBC 21.3 H RBC 3.62 L Hgb Hct MCV MCHC 35 H RDW Plt Count Lymph % (Auto) [place] % (Auto) Lymph # [place] # Baso # Seg Neutrophils % Seg Neuts % (Manual) 90.0 H Lymphocytes % (Manual) 6.0 L Monocytes % (Manual) Nucleated RBC % 1.0 H Seg Neutrophils # Seg Neutrophils # Man 19.2 H Lymphocytes # (Manual) Monocytes # (Manual) 0.9 H PT INR POC ABG pH POC ABG pCO2 POC ABG pO2 Sodium Potassium Chloride Carbon Dioxide BUN 5 L Creatinine 0.5 L Glucose 134 H POC Glucose 155 H Calcium 7.9 L Phosphorus 2.20 L D Magnesium AST ALT Alkaline Phosphatase Lactate Dehydrogenase C-Reactive Protein Total Protein Albumin Urine WBC (Auto) Miscellaneous Test 04/09/18 04/10/18 04/10/18 23:38 04:07 04:07 WBC 20.2 H RBC 3.38 L Hgb 9.4 L Hct 28.9 L MCV MCHC RDW Plt Count Lymph % (Auto) [place] % (Auto) Lymph # [place] # Baso # Seg Neutrophils % Seg Neuts % (Manual) Lymphocytes % (Manual) 6.0 L Monocytes % (Manual) Nucleated RBC % Seg Neutrophils # Seg Neutrophils # Man 10.7 H Lymphocytes # (Manual) Monocytes # (Manual) PT INR POC ABG pH POC ABG pCO2 POC ABG pO2 Sodium Potassium Chloride Carbon Dioxide BUN 6 L Creatinine 0.6 L Glucose 176 H POC Glucose 160 H Calcium 7.7 L Phosphorus Magnesium AST ALT Alkaline Phosphatase Lactate Dehydrogenase C-Reactive Protein Total Protein Albumin Urine WBC (Auto) Miscellaneous Test 04/10/18 04/10/18 04/10/18 05:29 11:55 12:59 WBC RBC Hgb Hct MCV MCHC RDW Plt Count Lymph % (Auto) [place] % (Auto) Lymph # [place] # Baso # Seg Neutrophils % Seg Neuts % (Manual) Lymphocytes % (Manual) Monocytes % (Manual) Nucleated RBC % Seg Neutrophils # Seg Neutrophils # Man Lymphocytes # (Manual) Monocytes # (Manual) PT INR POC ABG pH 7.519 H POC ABG pCO2 29.3 L POC ABG pO2 63 L Sodium Potassium Chloride Carbon Dioxide BUN Creatinine Glucose POC Glucose 171 H 194 H Calcium Phosphorus Magnesium AST ALT Alkaline Phosphatase Lactate Dehydrogenase C-Reactive Protein Total Protein Albumin Urine WBC (Auto) Miscellaneous Test 04/10/18 04/10/18 04/10/18 18:11 18:28 18:28 WBC 22.7 H RBC 3.62 L Hgb Hct MCV MCHC RDW Plt Count Lymph % (Auto) [place] % (Auto) Lymph # [place] # Baso # Seg Neutrophils % Seg Neuts % (Manual) 84.0 H Lymphocytes % (Manual) 7.0 L Monocytes % (Manual) 8.0 H Nucleated RBC % Seg Neutrophils # Seg Neutrophils # Man 19.1 H Lymphocytes # (Manual) Monocytes # (Manual) 1.8 H PT INR POC ABG pH POC ABG pCO2 POC ABG pO2 Sodium Potassium Chloride Carbon Dioxide BUN Creatinine Glucose POC Glucose 118 H Calcium Phosphorus Magnesium AST ALT Alkaline Phosphatase Lactate Dehydrogenase C-Reactive Protein 45.20 H Total Protein Albumin Urine WBC (Auto) Miscellaneous Test 04/10/18 04/10/18 04/11/18 18:28 23:45 03:35 WBC 20.9 H RBC 3.54 L Hgb 10.0 L Hct MCV MCHC RDW Plt Count Lymph % (Auto) [place] % (Auto) Lymph # [place] # Baso # Seg Neutrophils % Seg Neuts % (Manual) 80.0 H Lymphocytes % (Manual) 6.0 L Monocytes % (Manual) Nucleated RBC % Seg Neutrophils # Seg Neutrophils # Man 16.7 H Lymphocytes # (Manual) Monocytes # (Manual) PT INR POC ABG pH POC ABG pCO2 POC ABG pO2 Sodium Potassium 3.5 L Chloride Carbon Dioxide BUN 5 L Creatinine 0.5 L Glucose 108 H POC Glucose 149 H Calcium 8.3 L Phosphorus Magnesium AST ALT Alkaline Phosphatase Lactate Dehydrogenase C-Reactive Protein Total Protein Albumin Urine WBC (Auto) Miscellaneous Test 04/11/18 04/11/18 04/11/18 03:35 06:17 11:29 WBC RBC Hgb Hct MCV MCHC RDW Plt Count Lymph % (Auto) [place] % (Auto) Lymph # [place] # Baso # Seg Neutrophils % Seg Neuts % (Manual) Lymphocytes % (Manual) Monocytes % (Manual) Nucleated RBC % Seg Neutrophils # Seg Neutrophils # Man Lymphocytes # (Manual) Monocytes # (Manual) PT INR POC ABG pH POC ABG pCO2 POC ABG pO2 Sodium Potassium Chloride Carbon Dioxide BUN Creatinine 0.5 L Glucose 143 H POC Glucose 155 H 158 H Calcium 8.2 L Phosphorus Magnesium AST ALT Alkaline Phosphatase Lactate Dehydrogenase C-Reactive Protein Total Protein 6.0 L Albumin 2.2 L Urine WBC (Auto) Miscellaneous Test 04/11/18 04/11/18 04/12/18 18:13 23:51 05:29 WBC RBC Hgb Hct MCV MCHC RDW Plt Count Lymph % (Auto) [place] % (Auto) Lymph # [place] # Baso # Seg Neutrophils % Seg Neuts % (Manual) Lymphocytes % (Manual) Monocytes % (Manual) Nucleated RBC % Seg Neutrophils # Seg Neutrophils # Man Lymphocytes # (Manual) Monocytes # (Manual) PT INR POC ABG pH POC ABG pCO2 POC ABG pO2 Sodium Potassium Chloride Carbon Dioxide BUN Creatinine Glucose POC Glucose 135 H 143 H 150 H Calcium Phosphorus Magnesium AST ALT Alkaline Phosphatase Lactate Dehydrogenase C-Reactive Protein Total Protein Albumin Urine WBC (Auto) Miscellaneous Test 04/12/18 04/12/18 04/13/18 05:40 05:40 00:32 WBC 18.0 H RBC 3.34 L Hgb 9.5 L Hct 28.9 L MCV MCHC RDW Plt Count Lymph % (Auto) 7.4 L [place] % (Auto) 10.8 H Lymph # [place] # 1.9 H Baso # Seg Neutrophils % 81.1 H Seg Neuts % (Manual) Lymphocytes % (Manual) Monocytes % (Manual) Nucleated RBC % Seg Neutrophils # 14.6 H Seg Neutrophils # Man Lymphocytes # (Manual) Monocytes # (Manual) PT INR POC ABG pH POC ABG pCO2 POC ABG pO2 Sodium Potassium Chloride 107.7 H Carbon Dioxide 21 L BUN Creatinine 0.6 L Glucose 140 H POC Glucose 144 H Calcium Phosphorus Magnesium AST ALT Alkaline Phosphatase Lactate Dehydrogenase C-Reactive Protein Total Protein Albumin Urine WBC (Auto) Miscellaneous Test 07/17/18 07/17/18 07/17/18 04:20 04:20 04:20 WBC 18.1 H RBC 3.52 L Hgb 9.8 L Hct 30.1 L MCV MCHC RDW Plt Count Lymph % (Auto) 11.1 L [place] % (Auto) 13.6 H Lymph # [place] # 2.5 H Baso # Seg Neutrophils % 74.4 H Seg Neuts % (Manual) Lymphocytes % (Manual) Monocytes % (Manual) Nucleated RBC % Seg Neutrophils # 13.4 H Seg Neutrophils # Man Lymphocytes # (Manual) Monocytes # (Manual) PT INR POC ABG pH POC ABG pCO2 POC ABG pO2 Sodium Potassium Chloride Carbon Dioxide BUN Creatinine 0.5 L Glucose 142 H POC Glucose Calcium Phosphorus Magnesium AST ALT Alkaline Phosphatase Lactate Dehydrogenase C-Reactive Protein 29.60 H Total Protein Albumin Urine WBC (Auto) Miscellaneous Test 04/13/18 04/13/18 04/13/18 05:35 13:37 23:50 WBC RBC Hgb Hct MCV MCHC RDW Plt Count Lymph % (Auto) [place] % (Auto) Lymph # [place] # Baso # Seg Neutrophils % Seg Neuts % (Manual) Lymphocytes % (Manual) Monocytes % (Manual) Nucleated RBC % Seg Neutrophils # Seg Neutrophils # Man Lymphocytes # (Manual) Monocytes # (Manual) PT INR POC ABG pH POC ABG pCO2 POC ABG pO2 Sodium Potassium Chloride Carbon Dioxide BUN Creatinine Glucose POC Glucose 142 H 160 H Calcium Phosphorus Magnesium AST ALT Alkaline Phosphatase Lactate Dehydrogenase C-Reactive Protein Total Protein Albumin Urine WBC (Auto) Miscellaneous Test Flexitest 1 H 04/14/18 04/14/18 04/14/18 04:00 04:00 05:29 WBC 22.1 H RBC 3.59 L Hgb 9.9 L Hct MCV MCHC RDW Plt Count Lymph % (Auto) [place] % (Auto) Lymph # [place] # Baso # Seg Neutrophils % Seg Neuts % (Manual) 73.0 H Lymphocytes % (Manual) 9.0 L Monocytes % (Manual) 11.0 H Nucleated RBC % Seg Neutrophils # Seg Neutrophils # Man 16.1 H Lymphocytes # (Manual) Monocytes # (Manual) 2.4 H PT INR POC ABG pH POC ABG pCO2 POC ABG pO2 Sodium Potassium Chloride Carbon Dioxide BUN Creatinine Glucose 155 H POC Glucose 133 H Calcium Phosphorus Magnesium 2.50 H AST ALT Alkaline Phosphatase Lactate Dehydrogenase C-Reactive Protein Total Protein Albumin Urine WBC (Auto) Miscellaneous Test 04/14/18 04/14/18 04/14/18 12:47 16:01 23:42 WBC RBC Hgb Hct MCV MCHC RDW Plt Count Lymph % (Auto) [place] % (Auto) Lymph # [place] # Baso # Seg Neutrophils % Seg Neuts % (Manual) Lymphocytes % (Manual) Monocytes % (Manual) Nucleated RBC % Seg Neutrophils # Seg Neutrophils # Man Lymphocytes # (Manual) Monocytes # (Manual) PT INR POC ABG pH POC ABG pCO2 POC ABG pO2 Sodium Potassium Chloride Carbon Dioxide BUN Creatinine Glucose POC Glucose 183 H 153 H 172 H Calcium Phosphorus Magnesium AST ALT Alkaline Phosphatase Lactate Dehydrogenase C-Reactive Protein Total Protein Albumin Urine WBC (Auto) Miscellaneous Test 04/15/18 04/15/18 04/15/18 04:42 04:42 05:49 WBC 21.5 H RBC 3.37 L Hgb 9.4 L Hct 28.9 L MCV MCHC RDW Plt Count 490 H Lymph % (Auto) [place] % (Auto) Lymph # [place] # Baso # Seg Neutrophils % Seg Neuts % (Manual) 77.0 H Lymphocytes % (Manual) 7.0 L Monocytes % (Manual) 10.0 H Nucleated RBC % Seg Neutrophils # Seg Neutrophils # Man 16.6 H Lymphocytes # (Manual) Monocytes # (Manual) 2.2 H PT INR POC ABG pH POC ABG pCO2 POC ABG pO2 Sodium Potassium 3.4 L Chloride 107.5 H Carbon Dioxide 21 L BUN Creatinine Glucose 165 H POC Glucose 147 H Calcium 8.0 L Phosphorus Magnesium 2.40 H AST ALT Alkaline Phosphatase Lactate Dehydrogenase C-Reactive Protein Total Protein Albumin Urine WBC (Auto) Miscellaneous Test 04/15/18 04/15/18 04/16/18 11:17 17:35 00:26 WBC RBC Hgb Hct MCV MCHC RDW Plt Count Lymph % (Auto) [place] % (Auto) Lymph # [place] # Baso # Seg Neutrophils % Seg Neuts % (Manual) Lymphocytes % (Manual) Monocytes % (Manual) Nucleated RBC % Seg Neutrophils # Seg Neutrophils # Man Lymphocytes # (Manual) Monocytes # (Manual) PT INR POC ABG pH POC ABG pCO2 POC ABG pO2 Sodium Potassium Chloride Carbon Dioxide BUN Creatinine Glucose POC Glucose 119 H 169 H 176 H Calcium Phosphorus Magnesium AST ALT Alkaline Phosphatase Lactate Dehydrogenase C-Reactive Protein Total Protein Albumin Urine WBC (Auto) Miscellaneous Test 04/16/18 04/16/18 04/16/18 06:12 06:19 06:21 WBC 20.7 H RBC 3.25 L Hgb 9.0 L Hct MCV MCHC 29 L RDW 16.7 H Plt Count 498 H Lymph % (Auto) [place] % (Auto) Lymph # [place] # Baso # Seg Neutrophils % Seg Neuts % (Manual) 88.0 H Lymphocytes % (Manual) 5.0 L Monocytes % (Manual) Nucleated RBC % Seg Neutrophils # Seg Neutrophils # Man 18.2 H Lymphocytes # (Manual) 1.0 L Monocytes # (Manual) PT INR POC ABG pH POC ABG pCO2 POC ABG pO2 Sodium Potassium Chloride Carbon Dioxide BUN Creatinine Glucose POC Glucose > 500 H 493 H Calcium Phosphorus Magnesium AST ALT Alkaline Phosphatase Lactate Dehydrogenase C-Reactive Protein Total Protein Albumin Urine WBC (Auto) Miscellaneous Test 04/16/18 04/16/18 04/16/18 06:24 08:52 14:05 WBC RBC Hgb Hct MCV MCHC RDW Plt Count Lymph % (Auto) [place] % (Auto) Lymph # [place] # Baso # Seg Neutrophils % Seg Neuts % (Manual) Lymphocytes % (Manual) Monocytes % (Manual) Nucleated RBC % Seg Neutrophils # Seg Neutrophils # Man Lymphocytes # (Manual) Monocytes # (Manual) PT INR POC ABG pH POC ABG pCO2 POC ABG pO2 Sodium Potassium 3.4 L Chloride Carbon Dioxide BUN Creatinine 0.5 L Glucose 166 H POC Glucose 173 H 196 H Calcium 8.2 L Phosphorus Magnesium AST ALT Alkaline Phosphatase Lactate Dehydrogenase C-Reactive Protein Total Protein Albumin Urine WBC (Auto) Miscellaneous Test 04/16/18 04/17/18 04/17/18 17:17 00:06 04:50 WBC 16.0 H RBC 3.12 L Hgb 8.7 L Hct 29.0 L MCV MCHC RDW 16.2 H Plt Count 455 H Lymph % (Auto) 9.4 L [place] % (Auto) 7.7 H Lymph # [place] # 1.2 H Baso # Seg Neutrophils % 81.9 H Seg Neuts % (Manual) Lymphocytes % (Manual) Monocytes % (Manual) Nucleated RBC % Seg Neutrophils # 13.1 H Seg Neutrophils # Man Lymphocytes # (Manual) Monocytes # (Manual) PT INR POC ABG pH POC ABG pCO2 POC ABG pO2 Sodium Potassium Chloride Carbon Dioxide BUN Creatinine Glucose POC Glucose 189 H 190 H Calcium Phosphorus Magnesium AST ALT Alkaline Phosphatase Lactate Dehydrogenase C-Reactive Protein Total Protein Albumin Urine WBC (Auto) Miscellaneous Test 04/17/18 04/17/18 04/17/18 04:50 05:38 07:17 WBC RBC Hgb Hct MCV MCHC RDW Plt Count Lymph % (Auto) [place] % (Auto) Lymph # [place] # Baso # Seg Neutrophils % Seg Neuts % (Manual) Lymphocytes % (Manual) Monocytes % (Manual) Nucleated RBC % Seg Neutrophils # Seg Neutrophils # Man Lymphocytes # (Manual) Monocytes # (Manual) PT INR POC ABG pH POC ABG pCO2 POC ABG pO2 Sodium 136 L Potassium 3.4 L Chloride 96.9 L Carbon Dioxide BUN Creatinine 0.6 L Glucose 167 H POC Glucose 190 H Calcium 7.6 L 8.0 L Phosphorus Magnesium AST ALT Alkaline Phosphatase Lactate Dehydrogenase C-Reactive Protein Total Protein Albumin Urine WBC (Auto) Miscellaneous Test 04/17/18 04/17/18 04/17/18 11:50 18:37 23:53 WBC RBC Hgb Hct MCV MCHC RDW Plt Count Lymph % (Auto) [place] % (Auto) Lymph # [place] # Baso # Seg Neutrophils % Seg Neuts % (Manual) Lymphocytes % (Manual) Monocytes % (Manual) Nucleated RBC % Seg Neutrophils # Seg Neutrophils # Man Lymphocytes # (Manual) Monocytes # (Manual) PT INR POC ABG pH POC ABG pCO2 POC ABG pO2 Sodium Potassium Chloride Carbon Dioxide BUN Creatinine Glucose POC Glucose 163 H 167 H 142 H Calcium Phosphorus Magnesium AST ALT Alkaline Phosphatase Lactate Dehydrogenase C-Reactive Protein Total Protein Albumin Urine WBC (Auto) Miscellaneous Test 04/18/18 04/18/18 04/18/18 05:59 10:05 12:25 WBC RBC Hgb Hct MCV MCHC RDW Plt Count Lymph % (Auto) [place] % (Auto) Lymph # [place] # Baso # Seg Neutrophils % Seg Neuts % (Manual) Lymphocytes % (Manual) Monocytes % (Manual) Nucleated RBC % Seg Neutrophils # Seg Neutrophils # Man Lymphocytes # (Manual) Monocytes # (Manual) PT INR POC ABG pH POC ABG pCO2 POC ABG pO2 Sodium Potassium Chloride Carbon Dioxide BUN Creatinine 0.5 L Glucose 127 H POC Glucose 144 H 171 H Calcium 8.2 L Phosphorus Magnesium AST ALT Alkaline Phosphatase Lactate Dehydrogenase C-Reactive Protein Total Protein Albumin Urine WBC (Auto) Miscellaneous Test 04/18/18 04/18/18 04/19/18 14:54 17:56 00:15 WBC 18.2 H RBC 2.95 L Hgb 8.9 L Hct 29.0 L MCV 98 H MCHC RDW 16.9 H Plt Count Lymph % (Auto) 9.2 L [place] % (Auto) Lymph # [place] # 1.2 H Baso # Seg Neutrophils % 82.7 H Seg Neuts % (Manual) Lymphocytes % (Manual) Monocytes % (Manual) Nucleated RBC % Seg Neutrophils # 15.1 H Seg Neutrophils # Man Lymphocytes # (Manual) Monocytes # (Manual) PT INR POC ABG pH POC ABG pCO2 POC ABG pO2 Sodium Potassium Chloride Carbon Dioxide BUN Creatinine Glucose POC Glucose 169 H 148 H Calcium Phosphorus Magnesium AST ALT Alkaline Phosphatase Lactate Dehydrogenase C-Reactive Protein Total Protein Albumin Urine WBC (Auto) Miscellaneous Test 04/19/18 04/19/18 04/19/18 05:21 08:00 08:00 WBC 18.7 H RBC Hgb Hct MCV MCHC RDW Plt Count 531 H Lymph % (Auto) [place] % (Auto) Lymph # [place] # Baso # Seg Neutrophils % Seg Neuts % (Manual) Lymphocytes % (Manual) Monocytes % (Manual) Nucleated RBC % Seg Neutrophils # Seg Neutrophils # Man Lymphocytes # (Manual) Monocytes # (Manual) PT INR POC ABG pH POC ABG pCO2 POC ABG pO2 Sodium Potassium Chloride Carbon Dioxide BUN 18 H Creatinine 0.5 L Glucose 141 H POC Glucose 146 H Calcium Phosphorus Magnesium AST ALT 76 H Alkaline Phosphatase 142 H Lactate Dehydrogenase C-Reactive Protein Total Protein Albumin 2.4 L Urine WBC (Auto) Miscellaneous Test 04/19/18 04/19/18 04/20/18 12:12 17:41 00:21 WBC RBC Hgb Hct MCV MCHC RDW Plt Count Lymph % (Auto) [place] % (Auto) Lymph # [place] # Baso # Seg Neutrophils % Seg Neuts % (Manual) Lymphocytes % (Manual) Monocytes % (Manual) Nucleated RBC % Seg Neutrophils # Seg Neutrophils # Man Lymphocytes # (Manual) Monocytes # (Manual) PT INR POC ABG pH POC ABG pCO2 POC ABG pO2 Sodium Potassium Chloride Carbon Dioxide BUN Creatinine Glucose POC Glucose 161 H 134 H 159 H Calcium Phosphorus Magnesium AST ALT Alkaline Phosphatase Lactate Dehydrogenase C-Reactive Protein Total Protein Albumin Urine WBC (Auto) Miscellaneous Test 04/20/18 04/20/18 04/20/18 04:00 04:00 07:05 WBC 16.5 H RBC 3.51 L Hgb 9.9 L Hct 30.1 L MCV MCHC RDW Plt Count 530 H Lymph % (Auto) 10.7 L [place] % (Auto) 9.2 H Lymph # [place] # 1.5 H Baso # Seg Neutrophils % 78.5 H Seg Neuts % (Manual) Lymphocytes % (Manual) Monocytes % (Manual) Nucleated RBC % Seg Neutrophils # 13.0 H Seg Neutrophils # Man Lymphocytes # (Manual) Monocytes # (Manual) PT INR POC ABG pH POC ABG pCO2 POC ABG pO2 Sodium Potassium Chloride Carbon Dioxide BUN 19 H Creatinine 0.6 L Glucose 185 H POC Glucose 166 H Calcium Phosphorus Magnesium AST ALT Alkaline Phosphatase Lactate Dehydrogenase C-Reactive Protein Total Protein Albumin Urine WBC (Auto) Miscellaneous Test 04/20/18 04/20/18 04/21/18 12:59 19:06 00:17 WBC RBC Hgb Hct MCV MCHC RDW Plt Count Lymph % (Auto) [place] % (Auto) Lymph # [place] # Baso # Seg Neutrophils % Seg Neuts % (Manual) Lymphocytes % (Manual) Monocytes % (Manual) Nucleated RBC % Seg Neutrophils # Seg Neutrophils # Man Lymphocytes # (Manual) Monocytes # (Manual) PT INR POC ABG pH POC ABG pCO2 POC ABG pO2 Sodium Potassium Chloride Carbon Dioxide BUN Creatinine Glucose POC Glucose 166 H 170 H 178 H Calcium Phosphorus Magnesium AST ALT Alkaline Phosphatase Lactate Dehydrogenase C-Reactive Protein Total Protein Albumin Urine WBC (Auto) Miscellaneous Test 04/21/18 04/21/18 04/21/18 06:15 06:15 06:39 WBC 15.1 H RBC 3.48 L Hgb 9.8 L Hct 30.2 L MCV MCHC RDW Plt Count 499 H Lymph % (Auto) [place] % (Auto) 8.7 H Lymph # [place] # 1.3 H Baso # 0.2 H Seg Neutrophils % 74.7 H Seg Neuts % (Manual) Lymphocytes % (Manual) Monocytes % (Manual) Nucleated RBC % Seg Neutrophils # 11.3 H Seg Neutrophils # Man Lymphocytes # (Manual) Monocytes # (Manual) PT INR POC ABG pH POC ABG pCO2 POC ABG pO2 Sodium Potassium Chloride 108.8 H Carbon Dioxide BUN 18 H Creatinine 0.6 L Glucose 157 H POC Glucose 153 H Calcium 8.0 L Phosphorus Magnesium AST ALT Alkaline Phosphatase Lactate Dehydrogenase C-Reactive Protein Total Protein Albumin Urine WBC (Auto) Miscellaneous Test 04/21/18 04/21/18 04/21/18 11:49 17:07 22:07 WBC RBC Hgb Hct MCV MCHC RDW Plt Count Lymph % (Auto) [place] % (Auto) Lymph # [place] # Baso # Seg Neutrophils % Seg Neuts % (Manual) Lymphocytes % (Manual) Monocytes % (Manual) Nucleated RBC % Seg Neutrophils # Seg Neutrophils # Man Lymphocytes # (Manual) Monocytes # (Manual) PT INR POC ABG pH POC ABG pCO2 POC ABG pO2 Sodium Potassium Chloride Carbon Dioxide BUN Creatinine Glucose POC Glucose 184 H 163 H 169 H Calcium Phosphorus Magnesium AST ALT Alkaline Phosphatase Lactate Dehydrogenase C-Reactive Protein Total Protein Albumin Urine WBC (Auto) Miscellaneous Test 04/22/18 04/22/18 04/22/18 07:00 07:00 08:52 WBC 14.0 H RBC 3.26 L Hgb 9.3 L Hct 28.6 L MCV MCHC RDW Plt Count 460 H Lymph % (Auto) 13.0 L [place] % (Auto) 10.1 H Lymph # [place] # 1.4 H Baso # Seg Neutrophils % 74.4 H Seg Neuts % (Manual) Lymphocytes % (Manual) Monocytes % (Manual) Nucleated RBC % Seg Neutrophils # 10.4 H Seg Neutrophils # Man Lymphocytes # (Manual) Monocytes # (Manual) PT INR POC ABG pH POC ABG pCO2 POC ABG pO2 Sodium Potassium Chloride Carbon Dioxide BUN 19 H Creatinine 0.6 L Glucose 159 H POC Glucose 156 H Calcium Phosphorus Magnesium AST ALT Alkaline Phosphatase Lactate Dehydrogenase C-Reactive Protein Total Protein Albumin Urine WBC (Auto) Miscellaneous Test 04/22/18 04/22/18 04/22/18 12:34 16:20 21:42 WBC RBC Hgb Hct MCV MCHC RDW Plt Count Lymph % (Auto) [place] % (Auto) Lymph # [place] # Baso # Seg Neutrophils % Seg Neuts % (Manual) Lymphocytes % (Manual) Monocytes % (Manual) Nucleated RBC % Seg Neutrophils # Seg Neutrophils # Man Lymphocytes # (Manual) Monocytes # (Manual) PT INR POC ABG pH POC ABG pCO2 POC ABG pO2 Sodium Potassium Chloride Carbon Dioxide BUN Creatinine Glucose POC Glucose 150 H 148 H 134 H Calcium Phosphorus Magnesium AST ALT Alkaline Phosphatase Lactate Dehydrogenase C-Reactive Protein Total Protein Albumin Urine WBC (Auto) Miscellaneous Test 04/23/18 04/23/18 04/23/18 05:45 05:45 08:45 WBC 12.5 H RBC 3.41 L Hgb 9.6 L Hct 29.6 L MCV MCHC RDW Plt Count 441 H Lymph % (Auto) [place] % (Auto) 11.3 H Lymph # [place] # 1.4 H Baso # Seg Neutrophils % 70.2 H Seg Neuts % (Manual) Lymphocytes % (Manual) Monocytes % (Manual) Nucleated RBC % Seg Neutrophils # 9.0 H Seg Neutrophils # Man Lymphocytes # (Manual) Monocytes # (Manual) PT INR POC ABG pH POC ABG pCO2 POC ABG pO2 Sodium Potassium Chloride Carbon Dioxide BUN 19 H Creatinine 0.6 L Glucose 119 H POC Glucose 154 H Calcium Phosphorus Magnesium 2.40 H AST ALT Alkaline Phosphatase Lactate Dehydrogenase C-Reactive Protein Total Protein Albumin Urine WBC (Auto) Miscellaneous Test 04/23/18 04/23/18 04/24/18 11:45 22:09 07:26 WBC RBC Hgb Hct MCV MCHC RDW Plt Count Lymph % (Auto) [place] % (Auto) Lymph # [place] # Baso # Seg Neutrophils % Seg Neuts % (Manual) Lymphocytes % (Manual) Monocytes % (Manual) Nucleated RBC % Seg Neutrophils # Seg Neutrophils # Man Lymphocytes # (Manual) Monocytes # (Manual) PT INR POC ABG pH POC ABG pCO2 POC ABG pO2 Sodium Potassium Chloride Carbon Dioxide BUN Creatinine Glucose POC Glucose 132 H 113 H 164 H Calcium Phosphorus Magnesium AST ALT Alkaline Phosphatase Lactate Dehydrogenase C-Reactive Protein Total Protein Albumin Urine WBC (Auto) Miscellaneous Test 04/24/18 04/24/18 04/24/18 08:30 08:30 11:27 WBC 14.4 H RBC 3.30 L Hgb 9.6 L Hct 28.4 L MCV MCHC RDW Plt Count Lymph % (Auto) 12.8 L [place] % (Auto) 9.1 H Lymph # [place] # 1.3 H Baso # 0.2 H Seg Neutrophils % 76.4 H Seg Neuts % (Manual) Lymphocytes % (Manual) Monocytes % (Manual) Nucleated RBC % Seg Neutrophils # 11.0 H Seg Neutrophils # Man Lymphocytes # (Manual) Monocytes # (Manual) PT INR POC ABG pH POC ABG pCO2 POC ABG pO2 Sodium Potassium Chloride Carbon Dioxide BUN 18 H Creatinine Glucose 155 H POC Glucose 133 H Calcium Phosphorus Magnesium AST ALT Alkaline Phosphatase Lactate Dehydrogenase C-Reactive Protein Total Protein Albumin Urine WBC (Auto) Miscellaneous Test 04/24/18 04/24/18 04/25/18 16:32 22:17 06:16 WBC RBC Hgb Hct MCV MCHC RDW Plt Count Lymph % (Auto) [place] % (Auto) Lymph # [place] # Baso # Seg Neutrophils % Seg Neuts % (Manual) Lymphocytes % (Manual) Monocytes % (Manual) Nucleated RBC % Seg Neutrophils # Seg Neutrophils # Man Lymphocytes # (Manual) Monocytes # (Manual) PT INR POC ABG pH POC ABG pCO2 POC ABG pO2 Sodium Potassium Chloride Carbon Dioxide BUN Creatinine Glucose POC Glucose 132 H 124 H 133 H Calcium Phosphorus Magnesium AST ALT Alkaline Phosphatase Lactate Dehydrogenase C-Reactive Protein Total Protein Albumin Urine WBC (Auto) Miscellaneous Test 04/25/18 04/25/18 04/25/18 07:39 11:10 11:31 WBC 11.3 H RBC 3.41 L Hgb 9.8 L Hct 29.5 L MCV MCHC RDW Plt Count Lymph % (Auto) 12.3 L [place] % (Auto) 9.0 H Lymph # [place] # 1.0 H Baso # Seg Neutrophils % 77.3 H Seg Neuts % (Manual) Lymphocytes % (Manual) Monocytes % (Manual) Nucleated RBC % Seg Neutrophils # 8.7 H Seg Neutrophils # Man Lymphocytes # (Manual) Monocytes # (Manual) PT INR POC ABG pH POC ABG pCO2 POC ABG pO2 Sodium Potassium Chloride Carbon Dioxide BUN Creatinine Glucose POC Glucose 141 H 145 H Calcium Phosphorus Magnesium AST ALT Alkaline Phosphatase Lactate Dehydrogenase C-Reactive Protein Total Protein Albumin Urine WBC (Auto) Miscellaneous Test 04/25/18 04/25/18 04/26/18 11:31 16:14 00:45 WBC RBC Hgb Hct MCV MCHC RDW Plt Count Lymph % (Auto) [place] % (Auto) Lymph # [place] # Baso # Seg Neutrophils % Seg Neuts % (Manual) Lymphocytes % (Manual) Monocytes % (Manual) Nucleated RBC % Seg Neutrophils # Seg Neutrophils # Man Lymphocytes # (Manual) Monocytes # (Manual) PT INR POC ABG pH POC ABG pCO2 POC ABG pO2 Sodium Potassium Chloride Carbon Dioxide BUN Creatinine Glucose 153 H POC Glucose 163 H 141 H Calcium Phosphorus Magnesium AST ALT Alkaline Phosphatase Lactate Dehydrogenase C-Reactive Protein Total Protein Albumin Urine WBC (Auto) Miscellaneous Test 04/26/18 04/26/18 04/26/18 06:10 06:10 06:37 WBC 14.5 H RBC 3.60 L Hgb Hct MCV MCHC RDW Plt Count Lymph % (Auto) [place] % (Auto) 9.6 H Lymph # [place] # 1.4 H Baso # 0.2 H Seg Neutrophils % 75.0 H Seg Neuts % (Manual) Lymphocytes % (Manual) Monocytes % (Manual) Nucleated RBC % Seg Neutrophils # 10.9 H Seg Neutrophils # Man Lymphocytes # (Manual) Monocytes # (Manual) PT INR POC ABG pH POC ABG pCO2 POC ABG pO2 Sodium Potassium Chloride Carbon Dioxide BUN Creatinine Glucose 138 H POC Glucose 131 H Calcium Phosphorus Magnesium AST ALT Alkaline Phosphatase Lactate Dehydrogenase C-Reactive Protein Total Protein Albumin Urine WBC (Auto) Miscellaneous Test 04/26/18 04/26/18 04/26/18 11:34 16:10 16:39 WBC RBC Hgb Hct MCV MCHC RDW Plt Count Lymph % (Auto) [place] % (Auto) Lymph # [place] # Baso # Seg Neutrophils % Seg Neuts % (Manual) Lymphocytes % (Manual) Monocytes % (Manual) Nucleated RBC % Seg Neutrophils # Seg Neutrophils # Man Lymphocytes # (Manual) Monocytes # (Manual) PT 17.2 H INR 1.33 H POC ABG pH POC ABG pCO2 POC ABG pO2 Sodium Potassium Chloride Carbon Dioxide BUN Creatinine Glucose POC Glucose 129 H Calcium Phosphorus Magnesium AST ALT Alkaline Phosphatase Lactate Dehydrogenase 266 H C-Reactive Protein Total Protein Albumin Urine WBC (Auto) Miscellaneous Test 04/26/18 04/26/18 04/27/18 16:59 22:39 05:50 WBC RBC Hgb Hct MCV MCHC RDW Plt Count Lymph % (Auto) [place] % (Auto) Lymph # [place] # Baso # Seg Neutrophils % Seg Neuts % (Manual) Lymphocytes % (Manual) Monocytes % (Manual) Nucleated RBC % Seg Neutrophils # Seg Neutrophils # Man Lymphocytes # (Manual) Monocytes # (Manual) PT INR POC ABG pH POC ABG pCO2 POC ABG pO2 Sodium Potassium Chloride 97.4 L Carbon Dioxide BUN Creatinine 0.6 L Glucose 135 H POC Glucose 145 H 187 H Calcium 8.2 L Phosphorus Magnesium AST 97 H ALT 222 H Alkaline Phosphatase 191 H Lactate Dehydrogenase C-Reactive Protein Total Protein Albumin 2.5 L Urine WBC (Auto) Miscellaneous Test 04/27/18 04/27/18 04/27/18 11:52 16:35 22:23 WBC RBC Hgb Hct MCV MCHC RDW Plt Count Lymph % (Auto) [place] % (Auto) Lymph # [place] # Baso # Seg Neutrophils % Seg Neuts % (Manual) Lymphocytes % (Manual) Monocytes % (Manual) Nucleated RBC % Seg Neutrophils # Seg Neutrophils # Man Lymphocytes # (Manual) Monocytes # (Manual) PT INR POC ABG pH POC ABG pCO2 POC ABG pO2 Sodium Potassium Chloride Carbon Dioxide BUN Creatinine Glucose POC Glucose 162 H 136 H 188 H Calcium Phosphorus Magnesium AST ALT Alkaline Phosphatase Lactate Dehydrogenase C-Reactive Protein Total Protein Albumin Urine WBC (Auto) Miscellaneous Test 04/28/18 04/28/18 04/28/18 07:06 09:15 12:11 WBC RBC Hgb Hct MCV MCHC RDW Plt Count Lymph % (Auto) [place] % (Auto) Lymph # [place] # Baso # Seg Neutrophils % Seg Neuts % (Manual) Lymphocytes % (Manual) Monocytes % (Manual) Nucleated RBC % Seg Neutrophils # Seg Neutrophils # Man Lymphocytes # (Manual) Monocytes # (Manual) PT INR POC ABG pH POC ABG pCO2 POC ABG pO2 Sodium Potassium Chloride Carbon Dioxide BUN Creatinine 0.5 L Glucose 149 H POC Glucose 160 H 107 H Calcium 8.0 L Phosphorus Magnesium AST ALT Alkaline Phosphatase Lactate Dehydrogenase C-Reactive Protein Total Protein Albumin Urine WBC (Auto) Miscellaneous Test 04/28/18 04/29/18 04/29/18 21:57 05:25 05:59 WBC RBC Hgb Hct MCV MCHC RDW Plt Count Lymph % (Auto) [place] % (Auto) Lymph # [place] # Baso # Seg Neutrophils % Seg Neuts % (Manual) Lymphocytes % (Manual) Monocytes % (Manual) Nucleated RBC % Seg Neutrophils # Seg Neutrophils # Man Lymphocytes # (Manual) Monocytes # (Manual) PT INR POC ABG pH POC ABG pCO2 POC ABG pO2 Sodium Potassium Chloride Carbon Dioxide BUN Creatinine 0.5 L Glucose 122 H POC Glucose 134 H 130 H Calcium 8.3 L Phosphorus Magnesium AST ALT Alkaline Phosphatase Lactate Dehydrogenase C-Reactive Protein Total Protein Albumin Urine WBC (Auto) Miscellaneous Test 04/29/18 04/29/18 04/29/18 12:14 17:45 22:47 WBC RBC Hgb Hct MCV MCHC RDW Plt Count Lymph % (Auto) [place] % (Auto) Lymph # [place] # Baso # Seg Neutrophils % Seg Neuts % (Manual) Lymphocytes % (Manual) Monocytes % (Manual) Nucleated RBC % Seg Neutrophils # Seg Neutrophils # Man Lymphocytes # (Manual) Monocytes # (Manual) PT INR POC ABG pH POC ABG pCO2 POC ABG pO2 Sodium Potassium Chloride Carbon Dioxide BUN Creatinine Glucose POC Glucose 171 H 142 H 317 H Calcium Phosphorus Magnesium AST ALT Alkaline Phosphatase Lactate Dehydrogenase C-Reactive Protein Total Protein Albumin Urine WBC (Auto) Miscellaneous Test 04/30/18 04/30/18 04/30/18 06:18 08:26 11:20 WBC RBC 3.16 L Hgb 9.1 L Hct 27.0 L MCV MCHC RDW Plt Count Lymph % (Auto) [place] % (Auto) 11.8 H Lymph # [place] # Baso # Seg Neutrophils % Seg Neuts % (Manual) Lymphocytes % (Manual) Monocytes % (Manual) Nucleated RBC % Seg Neutrophils # Seg Neutrophils # Man Lymphocytes # (Manual) Monocytes # (Manual) PT INR POC ABG pH POC ABG pCO2 POC ABG pO2 Sodium 135 L Potassium Chloride Carbon Dioxide 21 L BUN Creatinine 0.5 L Glucose 155 H POC Glucose 166 H Calcium Phosphorus Magnesium AST ALT Alkaline Phosphatase Lactate Dehydrogenase C-Reactive Protein Total Protein Albumin Urine WBC (Auto) Miscellaneous Test 04/30/18 04/30/18 05/01/18 12:24 18:05 02:52 WBC RBC Hgb Hct MCV MCHC RDW Plt Count Lymph % (Auto) [place] % (Auto) Lymph # [place] # Baso # Seg Neutrophils % Seg Neuts % (Manual) Lymphocytes % (Manual) Monocytes % (Manual) Nucleated RBC % Seg Neutrophils # Seg Neutrophils # Man Lymphocytes # (Manual) Monocytes # (Manual) PT INR POC ABG pH POC ABG pCO2 POC ABG pO2 Sodium Potassium Chloride Carbon Dioxide BUN Creatinine Glucose POC Glucose 176 H 147 H 132 H Calcium Phosphorus Magnesium AST ALT Alkaline Phosphatase Lactate Dehydrogenase C-Reactive Protein Total Protein Albumin Urine WBC (Auto) Miscellaneous Test 05/01/18 05/02/18 05/02/18 04:00 05:50 11:51 WBC RBC Hgb Hct MCV MCHC RDW Plt Count Lymph % (Auto) [place] % (Auto) Lymph # [place] # Baso # Seg Neutrophils % Seg Neuts % (Manual) Lymphocytes % (Manual) Monocytes % (Manual) Nucleated RBC % Seg Neutrophils # Seg Neutrophils # Man Lymphocytes # (Manual) Monocytes # (Manual) PT INR POC ABG pH POC ABG pCO2 POC ABG pO2 Sodium 134 L Potassium Chloride Carbon Dioxide BUN Creatinine 0.6 L 0.6 L Glucose 101 H 122 H POC Glucose 215 H Calcium Phosphorus Magnesium AST ALT Alkaline Phosphatase Lactate Dehydrogenase C-Reactive Protein Total Protein Albumin Urine WBC (Auto) Miscellaneous Test 05/02/18 05/03/18 05/03/18 17:40 00:58 06:10 WBC RBC Hgb Hct MCV MCHC RDW Plt Count Lymph % (Auto) [place] % (Auto) Lymph # [place] # Baso # Seg Neutrophils % Seg Neuts % (Manual) Lymphocytes % (Manual) Monocytes % (Manual) Nucleated RBC % Seg Neutrophils # Seg Neutrophils # Man Lymphocytes # (Manual) Monocytes # (Manual) PT INR POC ABG pH POC ABG pCO2 POC ABG pO2 Sodium Potassium Chloride Carbon Dioxide BUN Creatinine Glucose POC Glucose 142 H 135 H 107 H Calcium Phosphorus Magnesium AST ALT Alkaline Phosphatase Lactate Dehydrogenase C-Reactive Protein Total Protein Albumin Urine WBC (Auto) Miscellaneous Test 05/03/18 05/03/18 05/03/18 08:01 16:44 17:08 WBC RBC 3.27 L Hgb 9.3 L Hct 27.8 L MCV MCHC RDW Plt Count Lymph % (Auto) [place] % (Auto) 11.9 H Lymph # [place] # 1.0 H Baso # Seg Neutrophils % Seg Neuts % (Manual) Lymphocytes % (Manual) Monocytes % (Manual) Nucleated RBC % Seg Neutrophils # Seg Neutrophils # Man Lymphocytes # (Manual) Monocytes # (Manual) PT INR POC ABG pH POC ABG pCO2 POC ABG pO2 Sodium Potassium Chloride Carbon Dioxide BUN Creatinine 0.6 L Glucose 128 H POC Glucose 107 H Calcium Phosphorus Magnesium AST ALT Alkaline Phosphatase Lactate Dehydrogenase C-Reactive Protein Total Protein Albumin Urine WBC (Auto) Miscellaneous Test 05/03/18 05/04/18 05/04/18 23:47 06:01 06:37 WBC RBC Hgb Hct MCV MCHC RDW Plt Count Lymph % (Auto) [place] % (Auto) Lymph # [place] # Baso # Seg Neutrophils % Seg Neuts % (Manual) Lymphocytes % (Manual) Monocytes % (Manual) Nucleated RBC % Seg Neutrophils # Seg Neutrophils # Man Lymphocytes # (Manual) Monocytes # (Manual) PT INR POC ABG pH POC ABG pCO2 POC ABG pO2 Sodium Potassium Chloride Carbon Dioxide BUN Creatinine 0.6 L Glucose 140 H POC Glucose 149 H 140 H Calcium 8.1 L Phosphorus Magnesium AST 74 H ALT 169 H Alkaline Phosphatase 203 H Lactate Dehydrogenase C-Reactive Protein Total Protein Albumin 2.5 L Urine WBC (Auto) Miscellaneous Test 05/04/18 05/04/18 05/04/18 11:51 16:43 23:36 WBC RBC Hgb Hct MCV MCHC RDW Plt Count Lymph % (Auto) [place] % (Auto) Lymph # [place] # Baso # Seg Neutrophils % Seg Neuts % (Manual) Lymphocytes % (Manual) Monocytes % (Manual) Nucleated RBC % Seg Neutrophils # Seg Neutrophils # Man Lymphocytes # (Manual) Monocytes # (Manual) PT INR POC ABG pH POC ABG pCO2 POC ABG pO2 Sodium Potassium Chloride Carbon Dioxide BUN Creatinine Glucose POC Glucose 110 H 127 H 170 H Calcium Phosphorus Magnesium AST ALT Alkaline Phosphatase Lactate Dehydrogenase C-Reactive Protein Total Protein Albumin Urine WBC (Auto) Miscellaneous Test 05/05/18 05/05/18 05/05/18 09:46 12:07 22:55 WBC RBC Hgb Hct MCV MCHC RDW Plt Count Lymph % (Auto) [place] % (Auto) Lymph # [place] # Baso # Seg Neutrophils % Seg Neuts % (Manual) Lymphocytes % (Manual) Monocytes % (Manual) Nucleated RBC % Seg Neutrophils # Seg Neutrophils # Man Lymphocytes # (Manual) Monocytes # (Manual) PT INR POC ABG pH POC ABG pCO2 POC ABG pO2 Sodium Potassium Chloride Carbon Dioxide BUN Creatinine 0.5 L Glucose POC Glucose 215 H 160 H Calcium Phosphorus Magnesium AST ALT Alkaline Phosphatase Lactate Dehydrogenase C-Reactive Protein Total Protein Albumin Urine WBC (Auto) Miscellaneous Test 05/06/18 05/06/18 05/06/18 04:55 06:09 23:03 WBC RBC Hgb Hct MCV MCHC RDW Plt Count Lymph % (Auto) [place] % (Auto) Lymph # [place] # Baso # Seg Neutrophils % Seg Neuts % (Manual) Lymphocytes % (Manual) Monocytes % (Manual) Nucleated RBC % Seg Neutrophils # Seg Neutrophils # Man Lymphocytes # (Manual) Monocytes # (Manual) PT INR POC ABG pH POC ABG pCO2 POC ABG pO2 Sodium 135 L Potassium Chloride Carbon Dioxide BUN Creatinine 0.6 L Glucose 141 H POC Glucose 158 H 159 H Calcium 8.2 L Phosphorus 2.10 L D Magnesium AST ALT Alkaline Phosphatase Lactate Dehydrogenase C-Reactive Protein Total Protein Albumin Urine WBC (Auto) Miscellaneous Test 05/07/18 05/07/18 04:40 11:26 WBC 14.6 H RBC 3.29 L Hgb 9.2 L Hct 28.0 L MCV MCHC RDW Plt Count Lymph % (Auto) [place] % (Auto) 7.9 H Lymph # [place] # 1.2 H Baso # Seg Neutrophils % Seg Neuts % (Manual) Lymphocytes % (Manual) Monocytes % (Manual) Nucleated RBC % Seg Neutrophils # 9.6 H Seg Neutrophils # Man Lymphocytes # (Manual) Monocytes # (Manual) PT INR POC ABG pH POC ABG pCO2 POC ABG pO2 Sodium Potassium Chloride Carbon Dioxide BUN Creatinine Glucose POC Glucose 116 H Calcium Phosphorus Magnesium AST ALT Alkaline Phosphatase Lactate Dehydrogenase C-Reactive Protein Total Protein Albumin Urine WBC (Auto) Miscellaneous Test Allied health notes reviewed: nursing
[2018-05-07] MEDS ORDERED: TPN ADULT 2,000 ML IV SCH (20:00)
[2018-05-07] MEDS: ATIVAN IV PRN (20:07)
[2018-05-07] MEDS: LOVENOX SUB-Q SCH (21:56)
[2018-05-07] MEDS: TYLENOL PR PRN (23:57)
[2018-05-08] MEDS: NORMODYNE IV PRN (00:13)
[2018-05-08] MEDS: PULMICORT IH SCH ×3 (01:51→20:48)
[2018-05-08] MEDS: BROVANA NEBU IH SCH ×3 (01:51→20:48)
[2018-05-08] MEDS: DILAUDID IV PRN ×5 (04:43→18:29)
[2018-05-08] MEDS: TYLENOL PR PRN ×2 (05:14→23:29)
[2018-05-08] MEDS: HumaLOG SUB-Q SCH ×3 (07:00→18:08)
[2018-05-08] MEDS: ZOFRAN IV PRN ×3 (09:48→23:29)
[2018-05-08] MEDS: ATIVAN IV PRN ×2 (09:50→22:11)
[2018-05-08] MEDS: PROTONIX IV SCH ×2 (09:52→22:11)
[2018-05-08] MEDS: ROCEPHIN/NS 2 GM/100 ML 2 GM/100 ML BAG IV SCH (09:56)
[2018-05-08] MEDS: SODIUM CHLORIDE FLUSH SYRINGE 10 ML IV SCH (13:13)
--- NOTE | 2018-05-08 13:21 | Progress Note ---
Assessment and Plan Sepsis with altered mental status in the setting of the systemic inflammatory response syndrom. Perforated abdominal viscus status post exploratory laparotomy and repair. Obesity. Pleural effusion Bilateral lower lobe infiltrates Obstructive sleep apnea according to the history. Acute encephalopathy, presumably toxic metabolic( resolved) History of hypertension. Arthritis. Gastroesophageal reflux disease. Morbid obesity. Acute hypoxemic respiratory failure Leukocytosis Hyperglycemia--spurious - Continue incentive spirometry and airway expansion measures -bronchodilators prn -Antibiotics/anti-infectives per ID - continue TPN , supportive care - continue GI & VTE prophylaxis - wound care per WCT / RN and surgeon - continue other care per attending / other consultants -stable from Pulmonary standpoint for discharge planning Awaiting transfer to [facility] for evaluation of a gastric stent Subjective Date of service: 05/08/18 Principal diagnosis: Sepsis Syndrome; Acute Hypoxemic Resp Failure; Acute Encephalopathy Interval history: Sepsis Syndrome; Acute Hypoxemic Resp Failure; Acute Encephalopathy Seen and examined at bedside; 24hour events reviewed; nursing and respiratory care staff consulted; no adverse overnight events reported to me; resting in bed ; much more appropriate mentally;s/p thoracentesis... Ambulating, feels great. No chest pain, no shortness of breath. On going leak--fevers last night with worsening leukocytosis. States she continues to have chills and abdominal pain. Awaiting transfer to [place] for evaluation for gastric stent Objective Vital Signs - 12hr 05/08/18 05/08/18 05/08/18 04:17 04:43 05:11 Temperature 102.3 F H Pulse Rate 115 H Respiratory 20 20 0 L Rate Blood Pressure 168/89 Blood Pressure [Left] O2 Sat by Pulse 99 Oximetry 05/08/18 05/08/18 08:00 11:01 Temperature 99 F 99.0 F Pulse Rate 110 H 103 H Respiratory 20 20 Rate Blood Pressure 146/80 Blood Pressure 137/74 [Left] O2 Sat by Pulse 96 98 Oximetry Constitutional: no acute distress, alert Eyes: non-icteric ENT: oropharynx moist, other (no thyromegaly) Neck: supple, no lymphadenopathy, no JVD, other (large neck circumference) Effort: normal Ascultation: Bilateral: diminished breath sounds, rhonchi (scant in bases) Percussion: Left: dull (base), Bilateral: not dull Cardiovascular: regular rate and rhythm, other (No R/M) Gastrointestinal: normoactive bowel sounds, soft, non-tender, non-distended, other (no palpable HSM, KRISTI drains) Integumentary: normal Extremities: no cyanosis, no edema, pulses normal, no ischemia or petechiae Neurologic: normal mental status, non-focal exam, pupils equal and round, CN II- XII normal, motor strength normal and Psychiatric: mood appropriate, affect normal CBC and BMP: 05/07/18 04:40 05/07/18 04:40 ABG, PT/INR, D-dimer: ABG POC ABG pH 7.519 (7.35-7.45) H 04/10/18 12:59 POC ABG pCO2 29.3 (35-45) L 04/10/18 12:59 POC ABG pO2 63 (80-105) L 04/10/18 12:59 POC ABG HCO3 23.9 04/10/18 12:59 POC ABG Total CO2 25 04/10/18 12:59 POC ABG O2 Sat 94 04/10/18 12:59 PT/INR, D-dimer PT 17.2 Sec. (12.2-14.9) H 04/26/18 16:39 INR 1.33 (0.87-1.13) H 04/26/18 16:39 Abnormal lab findings: Abnormal Labs 04/07/18 04/07/18 04/07/18 00:05 00:05 09:41 WBC 18.4 H 21.3 H RBC Hgb Hct MCV MCHC RDW Plt Count Lymph % (Auto) 4.5 L [place] % (Auto) Lymph # 0.8 L [place] # 1.2 H Baso # Seg Neutrophils % 88.9 H Seg Neuts % (Manual) 85.0 H Lymphocytes % (Manual) 4.0 L Monocytes % (Manual) Nucleated RBC % Seg Neutrophils # 16.4 H Seg Neutrophils # Man 18.1 H Lymphocytes # (Manual) 0.9 L Monocytes # (Manual) 1.1 H PT INR POC ABG pH POC ABG pCO2 POC ABG pO2 Sodium Potassium Chloride Carbon Dioxide BUN Creatinine Glucose 123 H POC Glucose Calcium 8.0 L Phosphorus Magnesium 1.60 L AST 59 H ALT Alkaline Phosphatase Lactate Dehydrogenase C-Reactive Protein Total Protein Albumin 2.9 L Urine WBC (Auto) Miscellaneous Test 0704/08/18 04/08/18 09:41 00:20 10:25 WBC 19.2 H RBC Hgb Hct MCV MCHC RDW Plt Count Lymph % (Auto) 5.4 L [place] % (Auto) Lymph # 1.0 L [place] # 1.1 H Baso # Seg Neutrophils % 88.9 H Seg Neuts % (Manual) Lymphocytes % (Manual) Monocytes % (Manual) Nucleated RBC % Seg Neutrophils # 17.1 H Seg Neutrophils # Man Lymphocytes # (Manual) Monocytes # (Manual) PT INR POC ABG pH POC ABG pCO2 POC ABG pO2 Sodium Potassium 3.3 L Chloride 95.1 L Carbon Dioxide 21 L BUN Creatinine Glucose 113 H POC Glucose Calcium Phosphorus Magnesium AST ALT Alkaline Phosphatase Lactate Dehydrogenase C-Reactive Protein Total Protein Albumin 3.6 L Urine WBC (Auto) 45.0 H Miscellaneous Test 04/08/18 04/08/18 04/08/18 10:25 13:33 23:53 WBC 12.8 H RBC Hgb Hct MCV MCHC RDW Plt Count Lymph % (Auto) Wells % (Auto) Lymph # [place] # Baso # Seg Neutrophils % Seg Neuts % (Manual) 97.0 H Lymphocytes % (Manual) 2.0 L Monocytes % (Manual) Nucleated RBC % Seg Neutrophils # Seg Neutrophils # Man 12.4 H Lymphocytes # (Manual) 0.3 L Monocytes # (Manual) PT INR POC ABG pH POC ABG pCO2 POC ABG pO2 Sodium Potassium 3.5 L Chloride Carbon Dioxide BUN Creatinine Glucose 123 H POC Glucose Calcium 7.9 L Phosphorus Magnesium AST 53 H ALT Alkaline Phosphatase Lactate Dehydrogenase C-Reactive Protein 52.00 H Total Protein 6.1 L Albumin 2.7 L Urine WBC (Auto) Miscellaneous Test 04/09/18 04/09/18 04/09/18 04:20 04:20 13:38 WBC 16.2 H RBC Hgb Hct MCV MCHC RDW Plt Count Lymph % (Auto) [place] % (Auto) Lymph # [place] # Baso # Seg Neutrophils % Seg Neuts % (Manual) 89.0 H Lymphocytes % (Manual) 4.0 L Monocytes % (Manual) Nucleated RBC % Seg Neutrophils # Seg Neutrophils # Man 14.4 H Lymphocytes # (Manual) 0.6 L Monocytes # (Manual) PT INR POC ABG pH 7.494 H POC ABG pCO2 31.6 L POC ABG pO2 68 L Sodium Potassium 3.5 L Chloride Carbon Dioxide BUN Creatinine 0.6 L Glucose 117 H POC Glucose Calcium 7.9 L Phosphorus 1.50 L D Magnesium AST ALT Alkaline Phosphatase Lactate Dehydrogenase C-Reactive Protein Total Protein 5.6 L Albumin 2.9 L Urine WBC (Auto) Miscellaneous Test 04/09/18 04/09/18 04/09/18 18:25 21:45 21:45 WBC 21.3 H RBC 3.62 L Hgb Hct MCV MCHC 35 H RDW Plt Count Lymph % (Auto) [place] % (Auto) Lymph # [place] # Baso # Seg Neutrophils % Seg Neuts % (Manual) 90.0 H Lymphocytes % (Manual) 6.0 L Monocytes % (Manual) Nucleated RBC % 1.0 H Seg Neutrophils # Seg Neutrophils # Man 19.2 H Lymphocytes # (Manual) Monocytes # (Manual) 0.9 H PT INR POC ABG pH POC ABG pCO2 POC ABG pO2 Sodium Potassium Chloride Carbon Dioxide BUN 5 L Creatinine 0.5 L Glucose 134 H POC Glucose 155 H Calcium 7.9 L Phosphorus 2.20 L D Magnesium AST ALT Alkaline Phosphatase Lactate Dehydrogenase C-Reactive Protein Total Protein Albumin Urine WBC (Auto) Miscellaneous Test 04/09/18 04/10/18 04/10/18 23:38 04:07 04:07 WBC 20.2 H RBC 3.38 L Hgb 9.4 L Hct 28.9 L MCV MCHC RDW Plt Count Lymph % (Auto) Wells % (Auto) Lymph # [place] # Baso # Seg Neutrophils % Seg Neuts % (Manual) Lymphocytes % (Manual) 6.0 L Monocytes % (Manual) Nucleated RBC % Seg Neutrophils # Seg Neutrophils # Man 10.7 H Lymphocytes # (Manual) Monocytes # (Manual) PT INR POC ABG pH POC ABG pCO2 POC ABG pO2 Sodium Potassium Chloride Carbon Dioxide BUN 6 L Creatinine 0.6 L Glucose 176 H POC Glucose 160 H Calcium 7.7 L Phosphorus Magnesium AST ALT Alkaline Phosphatase Lactate Dehydrogenase C-Reactive Protein Total Protein Albumin Urine WBC (Auto) Miscellaneous Test 04/10/18 04/10/18 04/10/18 05:29 11:55 12:59 WBC RBC Hgb Hct MCV MCHC RDW Plt Count Lymph % (Auto) [place] % (Auto) Lymph # [place] # Baso # Seg Neutrophils % Seg Neuts % (Manual) Lymphocytes % (Manual) Monocytes % (Manual) Nucleated RBC % Seg Neutrophils # Seg Neutrophils # Man Lymphocytes # (Manual) Monocytes # (Manual) PT INR POC ABG pH 7.519 H POC ABG pCO2 29.3 L POC ABG pO2 63 L Sodium Potassium Chloride Carbon Dioxide BUN Creatinine Glucose POC Glucose 171 H 194 H Calcium Phosphorus Magnesium AST ALT Alkaline Phosphatase Lactate Dehydrogenase C-Reactive Protein Total Protein Albumin Urine WBC (Auto) Miscellaneous Test 04/10/18 04/10/18 04/10/18 18:11 18:28 18:28 WBC 22.7 H RBC 3.62 L Hgb Hct MCV MCHC RDW Plt Count Lymph % (Auto) [place] % (Auto) Lymph # [place] # Baso # Seg Neutrophils % Seg Neuts % (Manual) 84.0 H Lymphocytes % (Manual) 7.0 L Monocytes % (Manual) 8.0 H Nucleated RBC % Seg Neutrophils # Seg Neutrophils # Man 19.1 H Lymphocytes # (Manual) Monocytes # (Manual) 1.8 H PT INR POC ABG pH POC ABG pCO2 POC ABG pO2 Sodium Potassium Chloride Carbon Dioxide BUN Creatinine Glucose POC Glucose 118 H Calcium Phosphorus Magnesium AST ALT Alkaline Phosphatase Lactate Dehydrogenase C-Reactive Protein 45.20 H Total Protein Albumin Urine WBC (Auto) Miscellaneous Test 04/10/18 04/10/18 04/11/18 18:28 23:45 03:35 WBC 20.9 H RBC 3.54 L Hgb 10.0 L Hct MCV MCHC RDW Plt Count Lymph % (Auto) [place] % (Auto) Lymph # [place] # Baso # Seg Neutrophils % Seg Neuts % (Manual) 80.0 H Lymphocytes % (Manual) 6.0 L Monocytes % (Manual) Nucleated RBC % Seg Neutrophils # Seg Neutrophils # Man 16.7 H Lymphocytes # (Manual) Monocytes # (Manual) PT INR POC ABG pH POC ABG pCO2 POC ABG pO2 Sodium Potassium 3.5 L Chloride Carbon Dioxide BUN 5 L Creatinine 0.5 L Glucose 108 H POC Glucose 149 H Calcium 8.3 L Phosphorus Magnesium AST ALT Alkaline Phosphatase Lactate Dehydrogenase C-Reactive Protein Total Protein Albumin Urine WBC (Auto) Miscellaneous Test 04/11/18 04/11/18 04/11/18 03:35 06:17 11:29 WBC RBC Hgb Hct MCV MCHC RDW Plt Count Lymph % (Auto) [place] % (Auto) Lymph # [place] # Baso # Seg Neutrophils % Seg Neuts % (Manual) Lymphocytes % (Manual) Monocytes % (Manual) Nucleated RBC % Seg Neutrophils # Seg Neutrophils # Man Lymphocytes # (Manual) Monocytes # (Manual) PT INR POC ABG pH POC ABG pCO2 POC ABG pO2 Sodium Potassium Chloride Carbon Dioxide BUN Creatinine 0.5 L Glucose 143 H POC Glucose 155 H 158 H Calcium 8.2 L Phosphorus Magnesium AST ALT Alkaline Phosphatase Lactate Dehydrogenase C-Reactive Protein Total Protein 6.0 L Albumin 2.2 L Urine WBC (Auto) Miscellaneous Test 04/11/18 04/11/18 04/12/18 18:13 23:51 05:29 WBC RBC Hgb Hct MCV MCHC RDW Plt Count Lymph % (Auto) [place] % (Auto) Lymph # [place] # Baso # Seg Neutrophils % Seg Neuts % (Manual) Lymphocytes % (Manual) Monocytes % (Manual) Nucleated RBC % Seg Neutrophils # Seg Neutrophils # Man Lymphocytes # (Manual) Monocytes # (Manual) PT INR POC ABG pH POC ABG pCO2 POC ABG pO2 Sodium Potassium Chloride Carbon Dioxide BUN Creatinine Glucose POC Glucose 135 H 143 H 150 H Calcium Phosphorus Magnesium AST ALT Alkaline Phosphatase Lactate Dehydrogenase C-Reactive Protein Total Protein Albumin Urine WBC (Auto) Miscellaneous Test 04/12/18 04/12/18 04/13/18 05:40 05:40 00:32 WBC 18.0 H RBC 3.34 L Hgb 9.5 L Hct 28.9 L MCV MCHC RDW Plt Count Lymph % (Auto) 7.4 L [place] % (Auto) 10.8 H Lymph # [place] # 1.9 H Baso # Seg Neutrophils % 81.1 H Seg Neuts % (Manual) Lymphocytes % (Manual) Monocytes % (Manual) Nucleated RBC % Seg Neutrophils # 14.6 H Seg Neutrophils # Man Lymphocytes # (Manual) Monocytes # (Manual) PT INR POC ABG pH POC ABG pCO2 POC ABG pO2 Sodium Potassium Chloride 107.7 H Carbon Dioxide 21 L BUN Creatinine 0.6 L Glucose 140 H POC Glucose 144 H Calcium Phosphorus Magnesium AST ALT Alkaline Phosphatase Lactate Dehydrogenase C-Reactive Protein Total Protein Albumin Urine WBC (Auto) Miscellaneous Test 04/13/18 04/13/18 04/13/18 04:20 04:20 04:20 WBC 18.1 H RBC 3.52 L Hgb 9.8 L Hct 30.1 L MCV MCHC RDW Plt Count Lymph % (Auto) 11.1 L [place] % (Auto) 13.6 H Lymph # [place] # 2.5 H Baso # Seg Neutrophils % 74.4 H Seg Neuts % (Manual) Lymphocytes % (Manual) Monocytes % (Manual) Nucleated RBC % Seg Neutrophils # 13.4 H Seg Neutrophils # Man Lymphocytes # (Manual) Monocytes # (Manual) PT INR POC ABG pH POC ABG pCO2 POC ABG pO2 Sodium Potassium Chloride Carbon Dioxide BUN Creatinine 0.5 L Glucose 142 H POC Glucose Calcium Phosphorus Magnesium AST ALT Alkaline Phosphatase Lactate Dehydrogenase C-Reactive Protein 29.60 H Total Protein Albumin Urine WBC (Auto) Miscellaneous Test 04/13/18 04/13/18 04/13/18 05:35 13:37 23:50 WBC RBC Hgb Hct MCV MCHC RDW Plt Count Lymph % (Auto) [place] % (Auto) Lymph # [place] # Baso # Seg Neutrophils % Seg Neuts % (Manual) Lymphocytes % (Manual) Monocytes % (Manual) Nucleated RBC % Seg Neutrophils # Seg Neutrophils # Man Lymphocytes # (Manual) Monocytes # (Manual) PT INR POC ABG pH POC ABG pCO2 POC ABG pO2 Sodium Potassium Chloride Carbon Dioxide BUN Creatinine Glucose POC Glucose 142 H 160 H Calcium Phosphorus Magnesium AST ALT Alkaline Phosphatase Lactate Dehydrogenase C-Reactive Protein Total Protein Albumin Urine WBC (Auto) Miscellaneous Test Flexitest 1 H 04/14/18 04/14/18 04/14/18 04:00 04:00 05:29 WBC 22.1 H RBC 3.59 L Hgb 9.9 L Hct MCV MCHC RDW Plt Count Lymph % (Auto) [place] % (Auto) Lymph # [place] # Baso # Seg Neutrophils % Seg Neuts % (Manual) 73.0 H Lymphocytes % (Manual) 9.0 L Monocytes % (Manual) 11.0 H Nucleated RBC % Seg Neutrophils # Seg Neutrophils # Man 16.1 H Lymphocytes # (Manual) Monocytes # (Manual) 2.4 H PT INR POC ABG pH POC ABG pCO2 POC ABG pO2 Sodium Potassium Chloride Carbon Dioxide BUN Creatinine Glucose 155 H POC Glucose 133 H Calcium Phosphorus Magnesium 2.50 H AST ALT Alkaline Phosphatase Lactate Dehydrogenase C-Reactive Protein Total Protein Albumin Urine WBC (Auto) Miscellaneous Test 04/14/18 04/14/18 04/14/18 12:47 16:01 23:42 WBC RBC Hgb Hct MCV MCHC RDW Plt Count Lymph % (Auto) [place] % (Auto) Lymph # [place] # Baso # Seg Neutrophils % Seg Neuts % (Manual) Lymphocytes % (Manual) Monocytes % (Manual) Nucleated RBC % Seg Neutrophils # Seg Neutrophils # Man Lymphocytes # (Manual) Monocytes # (Manual) PT INR POC ABG pH POC ABG pCO2 POC ABG pO2 Sodium Potassium Chloride Carbon Dioxide BUN Creatinine Glucose POC Glucose 183 H 153 H 172 H Calcium Phosphorus Magnesium AST ALT Alkaline Phosphatase Lactate Dehydrogenase C-Reactive Protein Total Protein Albumin Urine WBC (Auto) Miscellaneous Test 04/15/18 04/15/18 04/15/18 04:42 04:42 05:49 WBC 21.5 H RBC 3.37 L Hgb 9.4 L Hct 28.9 L MCV MCHC RDW Plt Count 490 H Lymph % (Auto) [place] % (Auto) Lymph # [place] # Baso # Seg Neutrophils % Seg Neuts % (Manual) 77.0 H Lymphocytes % (Manual) 7.0 L Monocytes % (Manual) 10.0 H Nucleated RBC % Seg Neutrophils # Seg Neutrophils # Man 16.6 H Lymphocytes # (Manual) Monocytes # (Manual) 2.2 H PT INR POC ABG pH POC ABG pCO2 POC ABG pO2 Sodium Potassium 3.4 L Chloride 107.5 H Carbon Dioxide 21 L BUN Creatinine Glucose 165 H POC Glucose 147 H Calcium 8.0 L Phosphorus Magnesium 2.40 H AST ALT Alkaline Phosphatase Lactate Dehydrogenase C-Reactive Protein Total Protein Albumin Urine WBC (Auto) Miscellaneous Test 04/15/18 04/15/18 04/16/18 11:17 17:35 00:26 WBC RBC Hgb Hct MCV MCHC RDW Plt Count Lymph % (Auto) [place] % (Auto) Lymph # [place] # Baso # Seg Neutrophils % Seg Neuts % (Manual) Lymphocytes % (Manual) Monocytes % (Manual) Nucleated RBC % Seg Neutrophils # Seg Neutrophils # Man Lymphocytes # (Manual) Monocytes # (Manual) PT INR POC ABG pH POC ABG pCO2 POC ABG pO2 Sodium Potassium Chloride Carbon Dioxide BUN Creatinine Glucose POC Glucose 119 H 169 H 176 H Calcium Phosphorus Magnesium AST ALT Alkaline Phosphatase Lactate Dehydrogenase C-Reactive Protein Total Protein Albumin Urine WBC (Auto) Miscellaneous Test 04/16/18 04/16/18 04/16/18 06:12 06:19 06:21 WBC 20.7 H RBC 3.25 L Hgb 9.0 L Hct MCV MCHC 29 L RDW 16.7 H Plt Count 498 H Lymph % (Auto) [place] % (Auto) Lymph # [place] # Baso # Seg Neutrophils % Seg Neuts % (Manual) 88.0 H Lymphocytes % (Manual) 5.0 L Monocytes % (Manual) Nucleated RBC % Seg Neutrophils # Seg Neutrophils # Man 18.2 H Lymphocytes # (Manual) 1.0 L Monocytes # (Manual) PT INR POC ABG pH POC ABG pCO2 POC ABG pO2 Sodium Potassium Chloride Carbon Dioxide BUN Creatinine Glucose POC Glucose > 500 H 493 H Calcium Phosphorus Magnesium AST ALT Alkaline Phosphatase Lactate Dehydrogenase C-Reactive Protein Total Protein Albumin Urine WBC (Auto) Miscellaneous Test 04/16/18 04/16/18 04/16/18 06:24 08:52 14:05 WBC RBC Hgb Hct MCV MCHC RDW Plt Count Lymph % (Auto) [place] % (Auto) Lymph # [place] # Baso # Seg Neutrophils % Seg Neuts % (Manual) Lymphocytes % (Manual) Monocytes % (Manual) Nucleated RBC % Seg Neutrophils # Seg Neutrophils # Man Lymphocytes # (Manual) Monocytes # (Manual) PT INR POC ABG pH POC ABG pCO2 POC ABG pO2 Sodium Potassium 3.4 L Chloride Carbon Dioxide BUN Creatinine 0.5 L Glucose 166 H POC Glucose 173 H 196 H Calcium 8.2 L Phosphorus Magnesium AST ALT Alkaline Phosphatase Lactate Dehydrogenase C-Reactive Protein Total Protein Albumin Urine WBC (Auto) Miscellaneous Test 04/16/18 04/17/18 04/17/18 17:17 00:06 04:50 WBC 16.0 H RBC 3.12 L Hgb 8.7 L Hct 29.0 L MCV MCHC RDW 16.2 H Plt Count 455 H Lymph % (Auto) 9.4 L [place] % (Auto) 7.7 H Lymph # [place] # 1.2 H Baso # Seg Neutrophils % 81.9 H Seg Neuts % (Manual) Lymphocytes % (Manual) Monocytes % (Manual) Nucleated RBC % Seg Neutrophils # 13.1 H Seg Neutrophils # Man Lymphocytes # (Manual) Monocytes # (Manual) PT INR POC ABG pH POC ABG pCO2 POC ABG pO2 Sodium Potassium Chloride Carbon Dioxide BUN Creatinine Glucose POC Glucose 189 H 190 H Calcium Phosphorus Magnesium AST ALT Alkaline Phosphatase Lactate Dehydrogenase C-Reactive Protein Total Protein Albumin Urine WBC (Auto) Miscellaneous Test 04/17/18 04/17/18 04/17/18 04:50 05:38 07:17 WBC RBC Hgb Hct MCV MCHC RDW Plt Count Lymph % (Auto) [place] % (Auto) Lymph # [place] # Baso # Seg Neutrophils % Seg Neuts % (Manual) Lymphocytes % (Manual) Monocytes % (Manual) Nucleated RBC % Seg Neutrophils # Seg Neutrophils # Man Lymphocytes # (Manual) Monocytes # (Manual) PT INR POC ABG pH POC ABG pCO2 POC ABG pO2 Sodium 136 L Potassium 3.4 L Chloride 96.9 L Carbon Dioxide BUN Creatinine 0.6 L Glucose 167 H POC Glucose 190 H Calcium 7.6 L 8.0 L Phosphorus Magnesium AST ALT Alkaline Phosphatase Lactate Dehydrogenase C-Reactive Protein Total Protein Albumin Urine WBC (Auto) Miscellaneous Test 04/17/18 04/17/18 04/17/18 11:50 18:37 23:53 WBC RBC Hgb Hct MCV MCHC RDW Plt Count Lymph % (Auto) [place] % (Auto) Lymph # [place] # Baso # Seg Neutrophils % Seg Neuts % (Manual) Lymphocytes % (Manual) Monocytes % (Manual) Nucleated RBC % Seg Neutrophils # Seg Neutrophils # Man Lymphocytes # (Manual) Monocytes # (Manual) PT INR POC ABG pH POC ABG pCO2 POC ABG pO2 Sodium Potassium Chloride Carbon Dioxide BUN Creatinine Glucose POC Glucose 163 H 167 H 142 H Calcium Phosphorus Magnesium AST ALT Alkaline Phosphatase Lactate Dehydrogenase C-Reactive Protein Total Protein Albumin Urine WBC (Auto) Miscellaneous Test 04/18/18 04/18/18 04/18/18 05:59 10:05 12:25 WBC RBC Hgb Hct MCV MCHC RDW Plt Count Lymph % (Auto) [place] % (Auto) Lymph # [place] # Baso # Seg Neutrophils % Seg Neuts % (Manual) Lymphocytes % (Manual) Monocytes % (Manual) Nucleated RBC % Seg Neutrophils # Seg Neutrophils # Man Lymphocytes # (Manual) Monocytes # (Manual) PT INR POC ABG pH POC ABG pCO2 POC ABG pO2 Sodium Potassium Chloride Carbon Dioxide BUN Creatinine 0.5 L Glucose 127 H POC Glucose 144 H 171 H Calcium 8.2 L Phosphorus Magnesium AST ALT Alkaline Phosphatase Lactate Dehydrogenase C-Reactive Protein Total Protein Albumin Urine WBC (Auto) Miscellaneous Test 04/18/18 04/18/18 04/19/18 14:54 17:56 00:15 WBC 18.2 H RBC 2.95 L Hgb 8.9 L Hct 29.0 L MCV 98 H MCHC RDW 16.9 H Plt Count Lymph % (Auto) 9.2 L [place] % (Auto) Lymph # [place] # 1.2 H Baso # Seg Neutrophils % 82.7 H Seg Neuts % (Manual) Lymphocytes % (Manual) Monocytes % (Manual) Nucleated RBC % Seg Neutrophils # 15.1 H Seg Neutrophils # Man Lymphocytes # (Manual) Monocytes # (Manual) PT INR POC ABG pH POC ABG pCO2 POC ABG pO2 Sodium Potassium Chloride Carbon Dioxide BUN Creatinine Glucose POC Glucose 169 H 148 H Calcium Phosphorus Magnesium AST ALT Alkaline Phosphatase Lactate Dehydrogenase C-Reactive Protein Total Protein Albumin Urine WBC (Auto) Miscellaneous Test 04/19/18 04/19/18 04/19/18 05:21 08:00 08:00 WBC 18.7 H RBC Hgb Hct MCV MCHC RDW Plt Count 531 H Lymph % (Auto) [place] % (Auto) Lymph # [place] # Baso # Seg Neutrophils % Seg Neuts % (Manual) Lymphocytes % (Manual) Monocytes % (Manual) Nucleated RBC % Seg Neutrophils # Seg Neutrophils # Man Lymphocytes # (Manual) Monocytes # (Manual) PT INR POC ABG pH POC ABG pCO2 POC ABG pO2 Sodium Potassium Chloride Carbon Dioxide BUN 18 H Creatinine 0.5 L Glucose 141 H POC Glucose 146 H Calcium Phosphorus Magnesium AST ALT 76 H Alkaline Phosphatase 142 H Lactate Dehydrogenase C-Reactive Protein Total Protein Albumin 2.4 L Urine WBC (Auto) Miscellaneous Test 04/19/18 04/19/18 04/20/18 12:12 17:41 00:21 WBC RBC Hgb Hct MCV MCHC RDW Plt Count Lymph % (Auto) [place] % (Auto) Lymph # [place] # Baso # Seg Neutrophils % Seg Neuts % (Manual) Lymphocytes % (Manual) Monocytes % (Manual) Nucleated RBC % Seg Neutrophils # Seg Neutrophils # Man Lymphocytes # (Manual) Monocytes # (Manual) PT INR POC ABG pH POC ABG pCO2 POC ABG pO2 Sodium Potassium Chloride Carbon Dioxide BUN Creatinine Glucose POC Glucose 161 H 134 H 159 H Calcium Phosphorus Magnesium AST ALT Alkaline Phosphatase Lactate Dehydrogenase C-Reactive Protein Total Protein Albumin Urine WBC (Auto) Miscellaneous Test 04/20/18 04/20/18 04/20/18 04:00 04:00 07:05 WBC 16.5 H RBC 3.51 L Hgb 9.9 L Hct 30.1 L MCV MCHC RDW Plt Count 530 H Lymph % (Auto) 10.7 L [place] % (Auto) 9.2 H Lymph # [place] # 1.5 H Baso # Seg Neutrophils % 78.5 H Seg Neuts % (Manual) Lymphocytes % (Manual) Monocytes % (Manual) Nucleated RBC % Seg Neutrophils # 13.0 H Seg Neutrophils # Man Lymphocytes # (Manual) Monocytes # (Manual) PT INR POC ABG pH POC ABG pCO2 POC ABG pO2 Sodium Potassium Chloride Carbon Dioxide BUN 19 H Creatinine 0.6 L Glucose 185 H POC Glucose 166 H Calcium Phosphorus Magnesium AST ALT Alkaline Phosphatase Lactate Dehydrogenase C-Reactive Protein Total Protein Albumin Urine WBC (Auto) Miscellaneous Test 04/20/18 04/20/18 04/21/18 12:59 19:06 00:17 WBC RBC Hgb Hct MCV MCHC RDW Plt Count Lymph % (Auto) [place] % (Auto) Lymph # [place] # Baso # Seg Neutrophils % Seg Neuts % (Manual) Lymphocytes % (Manual) Monocytes % (Manual) Nucleated RBC % Seg Neutrophils # Seg Neutrophils # Man Lymphocytes # (Manual) Monocytes # (Manual) PT INR POC ABG pH POC ABG pCO2 POC ABG pO2 Sodium Potassium Chloride Carbon Dioxide BUN Creatinine Glucose POC Glucose 166 H 170 H 178 H Calcium Phosphorus Magnesium AST ALT Alkaline Phosphatase Lactate Dehydrogenase C-Reactive Protein Total Protein Albumin Urine WBC (Auto) Miscellaneous Test 04/21/18 04/21/18 04/21/18 06:15 06:15 06:39 WBC 15.1 H RBC 3.48 L Hgb 9.8 L Hct 30.2 L MCV MCHC RDW Plt Count 499 H Lymph % (Auto) [place] % (Auto) 8.7 H Lymph # [place] # 1.3 H Baso # 0.2 H Seg Neutrophils % 74.7 H Seg Neuts % (Manual) Lymphocytes % (Manual) Monocytes % (Manual) Nucleated RBC % Seg Neutrophils # 11.3 H Seg Neutrophils # Man Lymphocytes # (Manual) Monocytes # (Manual) PT INR POC ABG pH POC ABG pCO2 POC ABG pO2 Sodium Potassium Chloride 108.8 H Carbon Dioxide BUN 18 H Creatinine 0.6 L Glucose 157 H POC Glucose 153 H Calcium 8.0 L Phosphorus Magnesium AST ALT Alkaline Phosphatase Lactate Dehydrogenase C-Reactive Protein Total Protein Albumin Urine WBC (Auto) Miscellaneous Test 04/21/18 04/21/18 04/21/18 11:49 17:07 22:07 WBC RBC Hgb Hct MCV MCHC RDW Plt Count Lymph % (Auto) [place] % (Auto) Lymph # [place] # Baso # Seg Neutrophils % Seg Neuts % (Manual) Lymphocytes % (Manual) Monocytes % (Manual) Nucleated RBC % Seg Neutrophils # Seg Neutrophils # Man Lymphocytes # (Manual) Monocytes # (Manual) PT INR POC ABG pH POC ABG pCO2 POC ABG pO2 Sodium Potassium Chloride Carbon Dioxide BUN Creatinine Glucose POC Glucose 184 H 163 H 169 H Calcium Phosphorus Magnesium AST ALT Alkaline Phosphatase Lactate Dehydrogenase C-Reactive Protein Total Protein Albumin Urine WBC (Auto) Miscellaneous Test 04/22/18 04/22/18 04/22/18 07:00 07:00 08:52 WBC 14.0 H RBC 3.26 L Hgb 9.3 L Hct 28.6 L MCV MCHC RDW Plt Count 460 H Lymph % (Auto) 13.0 L [place] % (Auto) 10.1 H Lymph # [place] # 1.4 H Baso # Seg Neutrophils % 74.4 H Seg Neuts % (Manual) Lymphocytes % (Manual) Monocytes % (Manual) Nucleated RBC % Seg Neutrophils # 10.4 H Seg Neutrophils # Man Lymphocytes # (Manual) Monocytes # (Manual) PT INR POC ABG pH POC ABG pCO2 POC ABG pO2 Sodium Potassium Chloride Carbon Dioxide BUN 19 H Creatinine 0.6 L Glucose 159 H POC Glucose 156 H Calcium Phosphorus Magnesium AST ALT Alkaline Phosphatase Lactate Dehydrogenase C-Reactive Protein Total Protein Albumin Urine WBC (Auto) Miscellaneous Test 04/22/18 04/22/18 04/22/18 12:34 16:20 21:42 WBC RBC Hgb Hct MCV MCHC RDW Plt Count Lymph % (Auto) Wells % (Auto) Lymph # Wells # Baso # Seg Neutrophils % Seg Neuts % (Manual) Lymphocytes % (Manual) Monocytes % (Manual) Nucleated RBC % Seg Neutrophils # Seg Neutrophils # Man Lymphocytes # (Manual) Monocytes # (Manual) PT INR POC ABG pH POC ABG pCO2 POC ABG pO2 Sodium Potassium Chloride Carbon Dioxide BUN Creatinine Glucose POC Glucose 150 H 148 H 134 H Calcium Phosphorus Magnesium AST ALT Alkaline Phosphatase Lactate Dehydrogenase C-Reactive Protein Total Protein Albumin Urine WBC (Auto) Miscellaneous Test 04/23/18 04/23/18 04/23/18 05:45 05:45 08:45 WBC 12.5 H RBC 3.41 L Hgb 9.6 L Hct 29.6 L MCV MCHC RDW Plt Count 441 H Lymph % (Auto) Wells % (Auto) 11.3 H Lymph # Wells # 1.4 H Baso # Seg Neutrophils % 70.2 H Seg Neuts % (Manual) Lymphocytes % (Manual) Monocytes % (Manual) Nucleated RBC % Seg Neutrophils # 9.0 H Seg Neutrophils # Man Lymphocytes # (Manual) Monocytes # (Manual) PT INR POC ABG pH POC ABG pCO2 POC ABG pO2 Sodium Potassium Chloride Carbon Dioxide BUN 19 H Creatinine 0.6 L Glucose 119 H POC Glucose 154 H Calcium Phosphorus Magnesium 2.40 H AST ALT Alkaline Phosphatase Lactate Dehydrogenase C-Reactive Protein Total Protein Albumin Urine WBC (Auto) Miscellaneous Test 04/23/18 04/23/18 04/24/18 11:45 22:09 07:26 WBC RBC Hgb Hct MCV MCHC RDW Plt Count Lymph % (Auto) Wells % (Auto) Lymph # Wells # Baso # Seg Neutrophils % Seg Neuts % (Manual) Lymphocytes % (Manual) Monocytes % (Manual) Nucleated RBC % Seg Neutrophils # Seg Neutrophils # Man Lymphocytes # (Manual) Monocytes # (Manual) PT INR POC ABG pH POC ABG pCO2 POC ABG pO2 Sodium Potassium Chloride Carbon Dioxide BUN Creatinine Glucose POC Glucose 132 H 113 H 164 H Calcium Phosphorus Magnesium AST ALT Alkaline Phosphatase Lactate Dehydrogenase C-Reactive Protein Total Protein Albumin Urine WBC (Auto) Miscellaneous Test 04/24/18 04/24/18 04/24/18 08:30 08:30 11:27 WBC 14.4 H RBC 3.30 L Hgb 9.6 L Hct 28.4 L MCV MCHC RDW Plt Count Lymph % (Auto) 12.8 L Wells % (Auto) 9.1 H Lymph # Wells # 1.3 H Baso # 0.2 H Seg Neutrophils % 76.4 H Seg Neuts % (Manual) Lymphocytes % (Manual) Monocytes % (Manual) Nucleated RBC % Seg Neutrophils # 11.0 H Seg Neutrophils # Man Lymphocytes # (Manual) Monocytes # (Manual) PT INR POC ABG pH POC ABG pCO2 POC ABG pO2 Sodium Potassium Chloride Carbon Dioxide BUN 18 H Creatinine Glucose 155 H POC Glucose 133 H Calcium Phosphorus Magnesium AST ALT Alkaline Phosphatase Lactate Dehydrogenase C-Reactive Protein Total Protein Albumin Urine WBC (Auto) Miscellaneous Test 04/24/18 04/24/18 04/25/18 16:32 22:17 06:16 WBC RBC Hgb Hct MCV MCHC RDW Plt Count Lymph % (Auto) Wells % (Auto) Lymph # Wells # Baso # Seg Neutrophils % Seg Neuts % (Manual) Lymphocytes % (Manual) Monocytes % (Manual) Nucleated RBC % Seg Neutrophils # Seg Neutrophils # Man Lymphocytes # (Manual) Monocytes # (Manual) PT INR POC ABG pH POC ABG pCO2 POC ABG pO2 Sodium Potassium Chloride Carbon Dioxide BUN Creatinine Glucose POC Glucose 132 H 124 H 133 H Calcium Phosphorus Magnesium AST ALT Alkaline Phosphatase Lactate Dehydrogenase C-Reactive Protein Total Protein Albumin Urine WBC (Auto) Miscellaneous Test 04/25/18 04/25/18 04/25/18 07:39 11:10 11:31 WBC 11.3 H RBC 3.41 L Hgb 9.8 L Hct 29.5 L MCV MCHC RDW Plt Count Lymph % (Auto) 12.3 L Wells % (Auto) 9.0 H Lymph # Wells # 1.0 H Baso # Seg Neutrophils % 77.3 H Seg Neuts % (Manual) Lymphocytes % (Manual) Monocytes % (Manual) Nucleated RBC % Seg Neutrophils # 8.7 H Seg Neutrophils # Man Lymphocytes # (Manual) Monocytes # (Manual) PT INR POC ABG pH POC ABG pCO2 POC ABG pO2 Sodium Potassium Chloride Carbon Dioxide BUN Creatinine Glucose POC Glucose 141 H 145 H Calcium Phosphorus Magnesium AST ALT Alkaline Phosphatase Lactate Dehydrogenase C-Reactive Protein Total Protein Albumin Urine WBC (Auto) Miscellaneous Test 04/25/18 04/25/18 04/26/18 11:31 16:14 00:45 WBC RBC Hgb Hct MCV MCHC RDW Plt Count Lymph % (Auto) Wells % (Auto) Lymph # Wells # Baso # Seg Neutrophils % Seg Neuts % (Manual) Lymphocytes % (Manual) Monocytes % (Manual) Nucleated RBC % Seg Neutrophils # Seg Neutrophils # Man Lymphocytes # (Manual) Monocytes # (Manual) PT INR POC ABG pH POC ABG pCO2 POC ABG pO2 Sodium Potassium Chloride Carbon Dioxide BUN Creatinine Glucose 153 H POC Glucose 163 H 141 H Calcium Phosphorus Magnesium AST ALT Alkaline Phosphatase Lactate Dehydrogenase C-Reactive Protein Total Protein Albumin Urine WBC (Auto) Miscellaneous Test 04/26/18 04/26/18 04/26/18 06:10 06:10 06:37 WBC 14.5 H RBC 3.60 L Hgb Hct MCV MCHC RDW Plt Count Lymph % (Auto) Wells % (Auto) 9.6 H Lymph # Wells # 1.4 H Baso # 0.2 H Seg Neutrophils % 75.0 H Seg Neuts % (Manual) Lymphocytes % (Manual) Monocytes % (Manual) Nucleated RBC % Seg Neutrophils # 10.9 H Seg Neutrophils # Man Lymphocytes # (Manual) Monocytes # (Manual) PT INR POC ABG pH POC ABG pCO2 POC ABG pO2 Sodium Potassium Chloride Carbon Dioxide BUN Creatinine Glucose 138 H POC Glucose 131 H Calcium Phosphorus Magnesium AST ALT Alkaline Phosphatase Lactate Dehydrogenase C-Reactive Protein Total Protein Albumin Urine WBC (Auto) Miscellaneous Test 04/26/18 04/26/18 04/26/18 11:34 16:10 16:39 WBC RBC Hgb Hct MCV MCHC RDW Plt Count Lymph % (Auto) Wells % (Auto) Lymph # Wells # Baso # Seg Neutrophils % Seg Neuts % (Manual) Lymphocytes % (Manual) Monocytes % (Manual) Nucleated RBC % Seg Neutrophils # Seg Neutrophils # Man Lymphocytes # (Manual) Monocytes # (Manual) PT 17.2 H INR 1.33 H POC ABG pH POC ABG pCO2 POC ABG pO2 Sodium Potassium Chloride Carbon Dioxide BUN Creatinine Glucose POC Glucose 129 H Calcium Phosphorus Magnesium AST ALT Alkaline Phosphatase Lactate Dehydrogenase 266 H C-Reactive Protein Total Protein Albumin Urine WBC (Auto) Miscellaneous Test 04/26/18 04/26/18 04/27/18 16:59 22:39 05:50 WBC RBC Hgb Hct MCV MCHC RDW Plt Count Lymph % (Auto) Wells % (Auto) Lymph # Wells # Baso # Seg Neutrophils % Seg Neuts % (Manual) Lymphocytes % (Manual) Monocytes % (Manual) Nucleated RBC % Seg Neutrophils # Seg Neutrophils # Man Lymphocytes # (Manual) Monocytes # (Manual) PT INR POC ABG pH POC ABG pCO2 POC ABG pO2 Sodium Potassium Chloride 97.4 L Carbon Dioxide BUN Creatinine 0.6 L Glucose 135 H POC Glucose 145 H 187 H Calcium 8.2 L Phosphorus Magnesium AST 97 H ALT 222 H Alkaline Phosphatase 191 H Lactate Dehydrogenase C-Reactive Protein Total Protein Albumin 2.5 L Urine WBC (Auto) Miscellaneous Test 04/27/18 04/27/18 04/27/18 11:52 16:35 22:23 WBC RBC Hgb Hct MCV MCHC RDW Plt Count Lymph % (Auto) Wells % (Auto) Lymph # Wells # Baso # Seg Neutrophils % Seg Neuts % (Manual) Lymphocytes % (Manual) Monocytes % (Manual) Nucleated RBC % Seg Neutrophils # Seg Neutrophils # Man Lymphocytes # (Manual) Monocytes # (Manual) PT INR POC ABG pH POC ABG pCO2 POC ABG pO2 Sodium Potassium Chloride Carbon Dioxide BUN Creatinine Glucose POC Glucose 162 H 136 H 188 H Calcium Phosphorus Magnesium AST ALT Alkaline Phosphatase Lactate Dehydrogenase C-Reactive Protein Total Protein Albumin Urine WBC (Auto) Miscellaneous Test 04/28/18 04/28/18 04/28/18 07:06 09:15 12:11 WBC RBC Hgb Hct MCV MCHC RDW Plt Count Lymph % (Auto) Wells % (Auto) Lymph # Wells # Baso # Seg Neutrophils % Seg Neuts % (Manual) Lymphocytes % (Manual) Monocytes % (Manual) Nucleated RBC % Seg Neutrophils # Seg Neutrophils # Man Lymphocytes # (Manual) Monocytes # (Manual) PT INR POC ABG pH POC ABG pCO2 POC ABG pO2 Sodium Potassium Chloride Carbon Dioxide BUN Creatinine 0.5 L Glucose 149 H POC Glucose 160 H 107 H Calcium 8.0 L Phosphorus Magnesium AST ALT Alkaline Phosphatase Lactate Dehydrogenase C-Reactive Protein Total Protein Albumin Urine WBC (Auto) Miscellaneous Test 04/28/18 04/29/18 04/29/18 21:57 05:25 05:59 WBC RBC Hgb Hct MCV MCHC RDW Plt Count Lymph % (Auto) Wells % (Auto) Lymph # Wells # Baso # Seg Neutrophils % Seg Neuts % (Manual) Lymphocytes % (Manual) Monocytes % (Manual) Nucleated RBC % Seg Neutrophils # Seg Neutrophils # Man Lymphocytes # (Manual) Monocytes # (Manual) PT INR POC ABG pH POC ABG pCO2 POC ABG pO2 Sodium Potassium Chloride Carbon Dioxide BUN Creatinine 0.5 L Glucose 122 H POC Glucose 134 H 130 H Calcium 8.3 L Phosphorus Magnesium AST ALT Alkaline Phosphatase Lactate Dehydrogenase C-Reactive Protein Total Protein Albumin Urine WBC (Auto) Miscellaneous Test 04/29/18 04/29/18 04/29/18 12:14 17:45 22:47 WBC RBC Hgb Hct MCV MCHC RDW Plt Count Lymph % (Auto) Wells % (Auto) Lymph # Wells # Baso # Seg Neutrophils % Seg Neuts % (Manual) Lymphocytes % (Manual) Monocytes % (Manual) Nucleated RBC % Seg Neutrophils # Seg Neutrophils # Man Lymphocytes # (Manual) Monocytes # (Manual) PT INR POC ABG pH POC ABG pCO2 POC ABG pO2 Sodium Potassium Chloride Carbon Dioxide BUN Creatinine Glucose POC Glucose 171 H 142 H 317 H Calcium Phosphorus Magnesium AST ALT Alkaline Phosphatase Lactate Dehydrogenase C-Reactive Protein Total Protein Albumin Urine WBC (Auto) Miscellaneous Test 04/30/18 04/30/18 04/30/18 06:18 08:26 11:20 WBC RBC 3.16 L Hgb 9.1 L Hct 27.0 L MCV MCHC RDW Plt Count Lymph % (Auto) Wells % (Auto) 11.8 H Lymph # Wells # Baso # Seg Neutrophils % Seg Neuts % (Manual) Lymphocytes % (Manual) Monocytes % (Manual) Nucleated RBC % Seg Neutrophils # Seg Neutrophils # Man Lymphocytes # (Manual) Monocytes # (Manual) PT INR POC ABG pH POC ABG pCO2 POC ABG pO2 Sodium 135 L Potassium Chloride Carbon Dioxide 21 L BUN Creatinine 0.5 L Glucose 155 H POC Glucose 166 H Calcium Phosphorus Magnesium AST ALT Alkaline Phosphatase Lactate Dehydrogenase C-Reactive Protein Total Protein Albumin Urine WBC (Auto) Miscellaneous Test 04/30/18 04/30/18 05/01/18 12:24 18:05 02:52 WBC RBC Hgb Hct MCV MCHC RDW Plt Count Lymph % (Auto) Wells % (Auto) Lymph # Wells # Baso # Seg Neutrophils % Seg Neuts % (Manual) Lymphocytes % (Manual) Monocytes % (Manual) Nucleated RBC % Seg Neutrophils # Seg Neutrophils # Man Lymphocytes # (Manual) Monocytes # (Manual) PT INR POC ABG pH POC ABG pCO2 POC ABG pO2 Sodium Potassium Chloride Carbon Dioxide BUN Creatinine Glucose POC Glucose 176 H 147 H 132 H Calcium Phosphorus Magnesium AST ALT Alkaline Phosphatase Lactate Dehydrogenase C-Reactive Protein Total Protein Albumin Urine WBC (Auto) Miscellaneous Test 05/01/18 05/02/18 05/02/18 04:00 05:50 11:51 WBC RBC Hgb Hct MCV MCHC RDW Plt Count Lymph % (Auto) Wells % (Auto) Lymph # Wells # Baso # Seg Neutrophils % Seg Neuts % (Manual) Lymphocytes % (Manual) Monocytes % (Manual) Nucleated RBC % Seg Neutrophils # Seg Neutrophils # Man Lymphocytes # (Manual) Monocytes # (Manual) PT INR POC ABG pH POC ABG pCO2 POC ABG pO2 Sodium 134 L Potassium Chloride Carbon Dioxide BUN Creatinine 0.6 L 0.6 L Glucose 101 H 122 H POC Glucose 215 H Calcium Phosphorus Magnesium AST ALT Alkaline Phosphatase Lactate Dehydrogenase C-Reactive Protein Total Protein Albumin Urine WBC (Auto) Miscellaneous Test 05/02/18 05/03/18 05/03/18 17:40 00:58 06:10 WBC RBC Hgb Hct MCV MCHC RDW Plt Count Lymph % (Auto) Wells % (Auto) Lymph # Wells # Baso # Seg Neutrophils % Seg Neuts % (Manual) Lymphocytes % (Manual) Monocytes % (Manual) Nucleated RBC % Seg Neutrophils # Seg Neutrophils # Man Lymphocytes # (Manual) Monocytes # (Manual) PT INR POC ABG pH POC ABG pCO2 POC ABG pO2 Sodium Potassium Chloride Carbon Dioxide BUN Creatinine Glucose POC Glucose 142 H 135 H 107 H Calcium Phosphorus Magnesium AST ALT Alkaline Phosphatase Lactate Dehydrogenase C-Reactive Protein Total Protein Albumin Urine WBC (Auto) Miscellaneous Test 05/03/18 05/03/18 05/03/18 08:01 16:44 17:08 WBC RBC 3.27 L Hgb 9.3 L Hct 27.8 L MCV MCHC RDW Plt Count Lymph % (Auto) Wells % (Auto) 11.9 H Lymph # Wells # 1.0 H Baso # Seg Neutrophils % Seg Neuts % (Manual) Lymphocytes % (Manual) Monocytes % (Manual) Nucleated RBC % Seg Neutrophils # Seg Neutrophils # Man Lymphocytes # (Manual) Monocytes # (Manual) PT INR POC ABG pH POC ABG pCO2 POC ABG pO2 Sodium Potassium Chloride Carbon Dioxide BUN Creatinine 0.6 L Glucose 128 H POC Glucose 107 H Calcium Phosphorus Magnesium AST ALT Alkaline Phosphatase Lactate Dehydrogenase C-Reactive Protein Total Protein Albumin Urine WBC (Auto) Miscellaneous Test 05/03/18 05/04/18 05/04/18 23:47 06:01 06:37 WBC RBC Hgb Hct MCV MCHC RDW Plt Count Lymph % (Auto) Wells % (Auto) Lymph # Wells # Baso # Seg Neutrophils % Seg Neuts % (Manual) Lymphocytes % (Manual) Monocytes % (Manual) Nucleated RBC % Seg Neutrophils # Seg Neutrophils # Man Lymphocytes # (Manual) Monocytes # (Manual) PT INR POC ABG pH POC ABG pCO2 POC ABG pO2 Sodium Potassium Chloride Carbon Dioxide BUN Creatinine 0.6 L Glucose 140 H POC Glucose 149 H 140 H Calcium 8.1 L Phosphorus Magnesium AST 74 H ALT 169 H Alkaline Phosphatase 203 H Lactate Dehydrogenase C-Reactive Protein Total Protein Albumin 2.5 L Urine WBC (Auto) Miscellaneous Test 05/04/18 05/04/18 05/04/18 11:51 16:43 23:36 WBC RBC Hgb Hct MCV MCHC RDW Plt Count Lymph % (Auto) Wells % (Auto) Lymph # Wells # Baso # Seg Neutrophils % Seg Neuts % (Manual) Lymphocytes % (Manual) Monocytes % (Manual) Nucleated RBC % Seg Neutrophils # Seg Neutrophils # Man Lymphocytes # (Manual) Monocytes # (Manual) PT INR POC ABG pH POC ABG pCO2 POC ABG pO2 Sodium Potassium Chloride Carbon Dioxide BUN Creatinine Glucose POC Glucose 110 H 127 H 170 H Calcium Phosphorus Magnesium AST ALT Alkaline Phosphatase Lactate Dehydrogenase C-Reactive Protein Total Protein Albumin Urine WBC (Auto) Miscellaneous Test 05/05/18 05/05/18 05/05/18 09:46 12:07 22:55 WBC RBC Hgb Hct MCV MCHC RDW Plt Count Lymph % (Auto) Wells % (Auto) Lymph # Wells # Baso # Seg Neutrophils % Seg Neuts % (Manual) Lymphocytes % (Manual) Monocytes % (Manual) Nucleated RBC % Seg Neutrophils # Seg Neutrophils # Man Lymphocytes # (Manual) Monocytes # (Manual) PT INR POC ABG pH POC ABG pCO2 POC ABG pO2 Sodium Potassium Chloride Carbon Dioxide BUN Creatinine 0.5 L Glucose POC Glucose 215 H 160 H Calcium Phosphorus Magnesium AST ALT Alkaline Phosphatase Lactate Dehydrogenase C-Reactive Protein Total Protein Albumin Urine WBC (Auto) Miscellaneous Test 05/06/18 05/06/18 05/06/18 04:55 06:09 23:03 WBC RBC Hgb Hct MCV MCHC RDW Plt Count Lymph % (Auto) Wells % (Auto) Lymph # Wells # Baso # Seg Neutrophils % Seg Neuts % (Manual) Lymphocytes % (Manual) Monocytes % (Manual) Nucleated RBC % Seg Neutrophils # Seg Neutrophils # Man Lymphocytes # (Manual) Monocytes # (Manual) PT INR POC ABG pH POC ABG pCO2 POC ABG pO2 Sodium 135 L Potassium Chloride Carbon Dioxide BUN Creatinine 0.6 L Glucose 141 H POC Glucose 158 H 159 H Calcium 8.2 L Phosphorus 2.10 L D Magnesium AST ALT Alkaline Phosphatase Lactate Dehydrogenase C-Reactive Protein Total Protein Albumin Urine WBC (Auto) Miscellaneous Test 05/07/18 05/07/18 05/07/18 04:40 11:26 22:05 WBC 14.6 H RBC 3.29 L Hgb 9.2 L Hct 28.0 L MCV MCHC RDW Plt Count Lymph % (Auto) Wells % (Auto) 7.9 H Lymph # Wells # 1.2 H Baso # Seg Neutrophils % Seg Neuts % (Manual) Lymphocytes % (Manual) Monocytes % (Manual) Nucleated RBC % Seg Neutrophils # 9.6 H Seg Neutrophils # Man Lymphocytes # (Manual) Monocytes # (Manual) PT INR POC ABG pH POC ABG pCO2 POC ABG pO2 Sodium Potassium Chloride Carbon Dioxide BUN Creatinine Glucose POC Glucose 116 H 187 H Calcium Phosphorus Magnesium AST ALT Alkaline Phosphatase Lactate Dehydrogenase C-Reactive Protein Total Protein Albumin Urine WBC (Auto) Miscellaneous Test 05/08/18 06:53 WBC RBC Hgb Hct MCV MCHC RDW Plt Count Lymph % (Auto) Wells % (Auto) Lymph # Wells # Baso # Seg Neutrophils % Seg Neuts % (Manual) Lymphocytes % (Manual) Monocytes % (Manual) Nucleated RBC % Seg Neutrophils # Seg Neutrophils # Man Lymphocytes # (Manual) Monocytes # (Manual) PT INR POC ABG pH POC ABG pCO2 POC ABG pO2 Sodium Potassium Chloride Carbon Dioxide BUN Creatinine Glucose POC Glucose 321 H Calcium Phosphorus Magnesium AST ALT Alkaline Phosphatase Lactate Dehydrogenase C-Reactive Protein Total Protein Albumin Urine WBC (Auto) Miscellaneous Test Allied health notes reviewed: nursing
[2018-05-08] MEDS: DIFLUCAN 200 MG/100 ML BAG IV SCH (14:58)
[2018-05-08] MEDS ORDERED: TPN ADULT 2,000 ML IV SCH (20:00)
--- NOTE | 2018-05-08 20:56 | Progress Note ---
Assessment and Plan Assessment: 1) Sepsis: still fever, worsening leukocytosis. Etiology most likely persistent gastric leaks 2) Gastric perforation and intra-abdominal fluid collection. -S/P OR for ex lap, abdominal washout, repair of gastric perforation and placement of drains on 04/08/18. -04/07 peritoneal fluid + Serratia x 2. -04/10 abdmen cx Dianna albicans -Repeat CTA 04/09 showed no PE, however increase in left pleural effusion with dense consolidation consistent with atelectasis and a large fluid collection 14 x 4.7 cm in the left lobe of the fever with air bubbles. -CRP=52 --> 45 -procal=0.3 -Repeat CT showed large left pleural effusion, smaller left hep lobe collection and large splenic collection 4.2x6.1 cm -S/P further drain placement 04/16 cx +MSSA and Leuconostoc. 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 5) Acute diarrhea. ?antibiotic related. Recommendations: -continue fluconazole and ceftriaxone. -Extensive exposure to broad spectrum antibiotics, high risk for antibiotic resistance -transfer to [place] for gastric stent placement LATASHA - pending Katerin Cross MD Infectious Diseases Specialist [facility] M [phone] O [phone] Subjective Date of service: 05/08/18 Principal diagnosis: Sepsis Syndrome; Acute Hypoxemic Resp Failure; Acute Encephalopathy Interval history: tmax 100.1, remains c/o nausea and vomiting, feels the same still abd pain Microbiology: Blood cultures: 04/07 neg 7/14 neg 04/24 ngtd 05/04 ngtd Peritoneal cultures: 04/07 Serratia x 2 04/10 ngtd 04/16 MSSA and Strep sp Pleural fluid: 04/26 neg Current Antimicrobials: ceftriaxone fluconazole Previous Antimicrobials: Fluconazole Zosyn 04/08-04/14 vanco 04/10-04/19 cefepime and flagyl 04/14-04/24zosyn 04/26 zyvox 04/26 Objective - Exam Narrative Exam: General appearance: Alert in mild shortness of breath NC O2 Eyes: anicteric sclerae, moist conjunctivae; no lid-lag; PERRLA HENT: Atraumatic; oropharynx NGT Neck: Trachea midline; supple, no thyromegaly or lymphadenopathy Lungs: CTA CV: RRR Abdomen: Obese, Soft, midline surgical wound covered with dressings drain in place KRISTI R minimal purulent output KRISTI L minimal serosang output, new left chest tube Extremities: No peripheral edema or extremity lymphadenopathy Skin: Normal temperature, turgor and texture; no rash, ulcers or subcutaneous nodules Psych: Appropriate affect, alert and oriented to person, place and time. Neuro: alert and oriented x 3. Moving all extermities Lines: right PICC, staton - Constitutional Vitals: Vital Signs Temp Pulse Resp BP Pulse Ox 100.0 F H 110 H 20 162/82 97 05/08/18 19:35 05/08/18 19:35 05/08/18 19:35 05/08/18 19:35 05/08/18 19:35 Temperature -Last 24 Hours Temperature 100.0 F Temperature 100.1 F Temperature 99 F Temperature 99.0 F Temperature 99 F Temperature 102.3 F Temperature 101.5 F - Labs CBC & Chem 7: 05/07/18 04:40 05/07/18 04:40 Labs: Abnormal lab results 05/07/18 05/08/18 Range/Units 22:05 06:53 POC Glucose 187 H 321 H (70-105)
[2018-05-08] MEDS: LOVENOX SUB-Q SCH (22:10)
[2018-05-08] MEDS ORDERED: DILAUDID IV PRN (23:27)
[2018-05-09] MEDS: HumaLOG SUB-Q SCH ×5 (00:08→23:11)
[2018-05-09] MEDS: DILAUDID IV PRN ×5 (00:10→19:39)
[2018-05-09] MEDS: NORMODYNE IV PRN (06:01)
[2018-05-09] MEDS: ZOFRAN IV PRN ×3 (06:05→22:46)
[2018-05-09] MEDS: BROVANA NEBU IH SCH ×2 (08:34→21:50)
[2018-05-09] MEDS: PULMICORT IH SCH ×2 (08:35→21:50)
[2018-05-09] MEDS: ATIVAN IV PRN ×2 (11:03→23:50)
[2018-05-09] MEDS: ROCEPHIN/NS 2 GM/100 ML 2 GM/100 ML BAG IV SCH (11:03)
[2018-05-09] MEDS: PROTONIX IV SCH ×2 (11:04→22:45)
[2018-05-09 12:29] LABS: Alanine Aminotransferase 162 units/L (7-56); Albumin 2.7 g/dL (3.9-5); BUN/Creatinine Ratio 24; Blood Urea Nitrogen 12 mg/dL (7-17); Calcium 8.6 mg/dL (8.4-10.2); Hemolysis Index 0
[2018-05-09] MEDS: APRESOLINE IV SCH ×3 (14:11→23:10)
[2018-05-09] MEDS: DIFLUCAN 200 MG/100 ML BAG IV SCH (14:35)
[2018-05-09] MEDS: PHENERGAN PR PRN (17:43)
[2018-05-09] MEDS ORDERED: TPN ADULT 2,000 ML IV SCH (20:00)
[2018-05-10] MEDS: HumaLOG SUB-Q SCH ×4 (01:25→17:57)
[2018-05-10] MEDS: DILAUDID IV PRN ×4 (03:56→19:57)
[2018-05-10] MEDS: TYLENOL PR PRN ×2 (04:08→20:13)
[2018-05-10] MEDS: APRESOLINE IV SCH ×3 (05:43→18:49)
[2018-05-10 08:01] LABS: BUN/Creatinine Ratio 24; Blood Urea Nitrogen 12 mg/dL (7-17); Calcium 8.4 mg/dL (8.4-10.2); Hemolysis Index 6
[2018-05-10] MEDS: PULMICORT IH SCH (08:12)
[2018-05-10] MEDS: BROVANA NEBU IH SCH (08:12)
[2018-05-10] MEDS: PROTONIX IV SCH ×2 (08:30→10:31)
[2018-05-10] MEDS: CATAPRES-TTS PATCH TD SCH ×2 (08:30→10:30)
[2018-05-10] MEDS: ZOFRAN IV PRN ×2 (08:32→19:58)
[2018-05-10] MEDS: ROCEPHIN/NS 2 GM/100 ML 2 GM/100 ML BAG IV SCH (10:21)
[2018-05-10] MEDS: ATIVAN IV PRN (13:25)
[2018-05-10] MEDS: TRANSDERM-SCOP TD SCH (13:30)
[2018-05-10] MEDS: DIFLUCAN 200 MG/100 ML BAG IV SCH (13:31)
--- NOTE | 2018-05-10 19:48 | Progress Note ---
Assessment and Plan Patient is being transferred to [facility] today for consult to Dr. Mason for placement of gastric stent for chronic gastric leak following sleeve gastrectomy. Subjective Date of service: 05/10/18 Patient Reports: Positive: no new complaints (In good spirits. I informed her of transfer plans to [facility] to have Dr. Mason place gastric stent.) Objective Vital Signs - 12hr 05/10/18 05/10/18 05/10/18 11:33 13:25 16:04 Temperature 100.0 F H 99.2 F Pulse Rate 119 H 131 H Respiratory 18 18 Rate Blood Pressure 165/84 164/85 134/78 O2 Sat by Pulse 97 96 Oximetry - General physical appearance no distress (Appears slightly short of breath) - Abdomen soft, bowel sounds hypoactive - Psychiatric oriented to time, oriented to person, oriented to place, speech is normal, memory intact - Labs 05/07/18 04:40 05/10/18 07:14 Diabetes panel 05/10/18 Range/Units 07:14 Sodium 141 (137-145) mmol/L Potassium 3.7 (3.6-5.0) mmol/L Chloride 105.2 (98-107) mmol/L Carbon Dioxide 19 L (22-30) mmol/L BUN 12 (7-17) mg/dL Creatinine 0.5 L (0.7-1.2) mg/dL Glucose 112 H (65-100) mg/dL Calcium 8.4 (8.4-10.2) mg/dL Calcium panel 05/10/18 Range/Units 07:14 Calcium 8.4 (8.4-10.2) mg/dL Phosphorus 3.70 (2.5-4.5) mg/dL Pituitary panel 05/10/18 Range/Units 07:14 Sodium 141 (137-145) mmol/L Potassium 3.7 (3.6-5.0) mmol/L Chloride 105.2 (98-107) mmol/L Carbon Dioxide 19 L (22-30) mmol/L BUN 12 (7-17) mg/dL Creatinine 0.5 L (0.7-1.2) mg/dL Glucose 112 H (65-100) mg/dL Calcium 8.4 (8.4-10.2) mg/dL Adrenal panel 05/10/18 Range/Units 07:14 Sodium 141 (137-145) mmol/L Potassium 3.7 (3.6-5.0) mmol/L Chloride 105.2 (98-107) mmol/L Carbon Dioxide 19 L (22-30) mmol/L BUN 12 (7-17) mg/dL Creatinine 0.5 L (0.7-1.2) mg/dL Glucose 112 H (65-100) mg/dL Calcium 8.4 (8.4-10.2) mg/dL
[2018-05-10] MEDS ORDERED: TPN ADULT 2,000 ML IV SCH (20:00)
[2018-05-10] MEDS ORDERED: INTRALIPID 20% 250 ML IV SCH (20:00)
[2018-05-10 21:14] VITALS: BP 164/79
== END 2018-05-10 21:15 | disposition short-term general hospital (02) | DRG 853 ==
LOC: ED 08:37 → CC1 23:19 → EEVIPCON 23:19 → 3B-SURG 04-20 15:04
PROVIDERS: ADMIT Specialist; ATTEND Specialist
PROC: 0DQ64ZZ Repair Stomach, Percutaneous Endoscopic Approach (ICD-10-PCS; principal; 2018-04-07)
PROC: 4A033R1 Measurement of Arterial Saturation, Peripheral, Percutaneous Approach (ICD-10-PCS; 2018-04-09)
PROC: 0W9F3ZZ Drainage of Abdominal Wall, Percutaneous Approach (ICD-10-PCS; 2018-04-10)
PROC: 0W9F3ZZ Drainage of Abdominal Wall, Percutaneous Approach (ICD-10-PCS; 2018-04-16)
PROC: 0W2FX0Z Change Drainage Device in Abdominal Wall, External Approach (ICD-10-PCS; 2018-04-26)
PROC: 0W9B3ZZ Drainage of Left Pleural Cavity, Percutaneous Approach (ICD-10-PCS; 2018-04-27)
DX: A41.9 Sepsis, unspecified organism (principal); J96.01 Acute respiratory failure with hypoxia; J18.9 Pneumonia, unspecified organism; G92 Toxic encephalopathy; K63.1 Perforation of intestine (nontraumatic); J90 Pleural effusion, not elsewhere classified; K66.8 Other specified disorders of peritoneum; Z53.20 Procedure and treatment not carried out because of patient's decision for unspecified reasons; I10 Essential (primary) hypertension; K21.9 Gastro-esophageal reflux disease without esophagitis; Z90.710 Acquired absence of both cervix and uterus; Z96.653 Presence of artificial knee joint, bilateral; Z87.891 Personal history of nicotine dependence; F32.9 Major depressive disorder, single episode, unspecified; E66.01 Morbid (severe) obesity due to excess calories; Z68.32 Body mass index [BMI] 32.0-32.9, adult; E87.6 Hypokalemia; G47.33 Obstructive sleep apnea (adult) (pediatric); M19.90 Unspecified osteoarthritis, unspecified site; R73.9 Hyperglycemia, unspecified; K58.9 Irritable bowel syndrome, unspecified
CPT/HCPCS: 10160; 32555; 36415; 36600; 49423; 71045; 71275; 74018; 74176; 74177; 74247; 77012; 80048; 80053; 80202; 81001; 82140; 82550; 82553; 82803; 82805; 82962; 83615; 83735; 84100; 84478; 84484; 85007; 85025; 85027; 85610; 85730; 86140; 86403; 87040; 87075; 87076; 87086; 87102; 87103; 87116; 87186; 87220; 93005; 93010; 93970; 94640; 94660; 94760; C1729; C1751; C1769; C9113; C9250; J0330; J0360; J0690; J0692; J0696; J1170; J1450; J1650; J1815; J1885; J1940; J2020; J2060; J2250; J2270; J2370; J2405; J2543; J2704; J2710; J2765; J2997; J3010; J3370; J3475; J3480; J7030; J7040; J7050; J7120; J7121; Q9963; Q9967

== ENCOUNTER 2019-12-02 12:38 | Emergency (ER) | payer MEDICARE, OTHER ==
[2019-12-02] MEDS ORDERED: DEXTROSE 50% IN WATER (25GM) 50 ML SYRINGE IV ONE ×5 (13:03→16:23)
[2019-12-02] MEDS ORDERED: SODIUM CHLORIDE 0.9% 1000 ML 1,000 ML ONE (13:04)
[2019-12-02] MEDS ORDERED: CEFEPIME/NS 1 GM/100 ML 1 GM/100 ML BAG IV ONE (13:20)
[2019-12-02] MEDS ORDERED: SODIUM CHLORIDE 0.9% 1000 ML IV SOLN IV ONE ×2 (13:32→15:01)
[2019-12-02] MEDS ORDERED: VANCOMYCIN 1,250 MG in SODIUM CHLORIDE 0.9% 250ML 250 ML IV ONE (13:45)
[2019-12-02 13:55] LABS: Hematocrit 33.7 % (30.3-42.9); Hemoglobin 10.5 gm/dl (10.1-14.3); Mean Corpuscular HGB Conc 31 % (30-34); Mean Corpuscular Volume 100 fl (79-97); Red Blood Count 3.36 M/mm3 (3.65-5.03); Red Cell Distribution Width 16.9 % (13.2-15.2)
[2019-12-02 13:56] LABS: Platelet Count 84 K/mm3 (140-440)
[2019-12-02] MEDS ORDERED: SODIUM BICARB 8.4% 50 MEQ/50 ML VIAL IV ONE (13:56)
[2019-12-02] MEDS ORDERED: DEXTROSE 50% IN WATER (25GM) 50 ML VIAL IV ONE (13:56)
[2019-12-02] MEDS ORDERED: EPINEPHrine 1:10,000 1 MG/10 ML SYRINGE ONE (13:56)
[2019-12-02 13:59] LABS: Creatine Kinase MB 5.4 ng/mL (0.0-4.0)
[2019-12-02 14:00] LABS: Albumin 1.1 g/dL (3.9-5); Bilirubin,Direct 0.5 mg/dL (0-0.2)
[2019-12-02] MEDS ORDERED: NORepinephrine/NS 4 MG-250 ML 4 MG/250 ML BAG IV ONE (14:00)
[2019-12-02] MEDS ORDERED: VANCOMYCIN PHARMACY TO DOSE IV SCH (14:00)
[2019-12-02] MEDS ORDERED: LIP THERAPY VASELINE TP PRN ×2 (14:12→14:17)
[2019-12-02] MEDS ORDERED: MINERAL OIL/PETROLATUM, WHITE OPHTH OINT 3.5 GM OU PRN ×2 (14:12→14:17)
--- NOTE | 2019-12-02 14:17 | Emergency Department Report ---
ED General Adult HPI - General Chief complaint: Hypoglycemia Stated complaint: LOW BLOOD SUGAR Time Seen by Provider: 12/02/19 13:11 Source: patient Mode of arrival: Stretcher Limitations: No Limitations - History of Present Illness Initial comments: This is a 59-year-old female who was found poorly responsive and hypoglycemic by EMS. EMS was unable to gain access. Patient presented to the emergency department and was presumed to be septic. She was placed in a resuscitation area. An EJ was placed and access was obtained. She required 2 A of D50 to reach a normal glycemic level. She is not diabetic. I spoke to the patient's daughter concerning her background and history. Apparently she has had bariatric surgery with takedowns and complications. She recently had a surgical procedure which disorder described as putting in "a single stitch". This was performed on Thursday. I asked the daughter if the patient had a history of a fistula. She seemed to answer to the affirmative. In any case I am not exactly sure what surgical procedure she had done on Thursday. In addition, the daughter tells me that the patient had prolonged effects of anesthesia and she was hospitalized overnight and discharged on at approximately 9 PM. The daughter states that she called the patient during her lunch hour and found her to be confused. Therefore she went to the home and found the patient obviously very lethargic if not obtunded. EMS was summoned. The patient herself is not a able to provide any historical information. She w ill respond with pain to abdominal palpation however. Patient's blood pressure on arrival was low. As above she was given D50 and a volume bolus. However her blood pressure did deteriorate. She was very tachypneic. I discussed the options for resuscitation with the family. Daughter stated that she did want full resuscitative efforts. Therefore the patient was electively intubated and a central line was placed. The patient was given a 3 L bolus of fluid and she was placed on Levophed. -: hour(s), days(s) Location: abdomen - Related Data Home Medications Medication Instructions Recorded Confirmed Last Taken Budesonide/Formoterol Fumarate 2 puff INHALATION BID 03/26/18 04/09/18 03/26/18 [Symbicort 160-4.5 Mcg Inhaler] Bupropion HCl [Wellbutrin XL] 300 mg PO QAM 06/04/09/18 03/28/18 Gabapentin 400 mg PO TID 03/26/18 04/09/18 03/29/18 LORazepam [Ativan] 1 mg PO BID PRN 03/26/18 04/09/18 03/29/18 Linaclotide [Linzess] 145 mcg PO QAM 03/26/18 04/09/18 03/29/18 Dexlansoprazole (Nf) [Dexilant 60 mg PO QAM 03/30/18 04/09/18 03/28/18 (Nf)] HYDROcodone/APAP 7.5-325 [[place] 1 each PO Q12H PRN 04/07/18 04/09/18 Unknown 7.5/325] Allergies Allergy/AdvReac Type Severity Reaction Status Date / Time No Known Allergies Allergy Unverified 03/16/18 11:09 ED Review of Systems ROS: Stated complaint: LOW BLOOD SUGAR Other details as noted in HPI Comment: Unobtainable due to pts medical conditions ED Past Medical Hx - Past Medical History Previous Medical History?: Yes Hx Hypertension: Yes Hx Heart Attack/AMI: No Hx Congestive Heart Failure: No Hx Deep Vein Thrombosis: No Hx Pulmonary Embolism: No Hx GERD: Yes Hx Arthritis: Yes Hx Asthma: Yes Hx COPD: No Hx Tuberculosis: No Hx HIV: No - Surgical History Past Surgical History?: Yes Hx Coronary Stent: No Hx Pacemaker: Yes (L CHEST) Hx Internal Defibrillator: No Additional Surgical History: Gastric sleeve, Hysterectomy, left and right knee replacement. right hand carpel tulnnel release - Social History Smoking Status: Never Smoker Substance Use Type: None - Medications Home Medications: Home Medications Medication Instructions Recorded Confirmed Last Taken Type Budesonide/Formoterol Fumarate 2 puff INHALATION BID 03/26/18 04/09/18 03/26/18 History [Symbicort 160-4.5 Mcg Inhaler] Bupropion HCl [Wellbutrin XL] 300 mg PO QAM 03/26/18 04/09/18 03/28/18 History Gabapentin 400 mg PO TID 03/26/18 04/09/18 03/29/18 History LORazepam [Ativan] 1 mg PO BID PRN 03/26/18 04/09/18 03/29/18 History Linaclotide [Linzess] 145 mcg PO QAM 03/26/18 04/09/18 03/29/18 History Dexlansoprazole (Cecilia) [Dexilant 60 mg PO QAM 03/30/18 04/09/18 03/28/18 History (Cecilia)] HYDROcodone/APAP 7.5-325 [[place] 1 each PO Q12H PRN 04/07/18 04/09/18 Unknown History 7.5/325] ED Physical Exam - General Limitations: Altered Mental Status, Physical Limitation General appearance: other (Toxic appearing, tachypneic and pale) - Head Head exam: Present: atraumatic - Eye Eye exam: Present: normal appearance - Neck Neck exam: Present: normal inspection. Absent: meningismus - Respiratory Respiratory exam: Present: normal lung sounds bilaterally, other (Tachypneic) - Cardiovascular Cardiovascular Exam: Present: tachycardia, other (Hypotensive) - GI/Abdominal GI/Abdominal exam: Present: soft, tenderness (Diffuse), other (There is a dressed surgical area with scab) - Extremities Exam Extremities exam: Present: normal inspection - Neurological Exam Neurological exam: Present: other (Obtunded) ED Course Vital Signs 12/02/19 12/02/19 13:26 14:00 Temperature 101.6 F H Pulse Rate 130 H 131 H Respiratory 20 Rate Blood Pressure 91/59 95/56 O2 Sat by Pulse 100 100 Oximetry - Reevaluation(s) Reevaluation #1: Resuscitation consisted of fluids, pressors, empiric antibiotics. I discussed the patient's condition with her surgeon Dr. Muñiz twice. He stated that he would accept the patient in transfer if we could get her adequately stabilized. At the time of this dictation the patient's sugars are being monitored. When I last conferred with her nurse her blood pressure was over 100 systolic. She has been seen by the hospitalist Dr. Amato. I think it is likely that transfer is feasible. A CT exam of the abdomen and pelvis was performed. We attempted to give the patient oral contrast but it would not pass through the OG tube. 12/02/19 15:36 Reevaluation #2: The OG tube is seen above the GE juncture. I would not attempt to force it further considering the patient's history of bariatric surgery. 12/02/19 15:38 - Central Line Placement Right Femoral Consent Obtained: emergent situation Time Out Performed: No Patient Placed on Monitor/Pulse Ox: No MD Prep: mask, gown, gloves Central Line Prep: Chlorhexidine scrub, sterile drapes applied Local Anesthesia Used: Lidocaine 1% Amount of Anesthesia Used (mls): 5 Ultrasound Used for Placement: No Central Line Lumen Inserted: triple Central Line Position: good blood return (Dark venous nonpulsatile), sutured in place with 3-0 Dressing Applied: Tegaderm Patient Tolerated Procedure: well (Single puncture. Usual guidewire procedure with dilatation.) Complications: none - Intubation Time Out Performed: No Sedative: Ketamine Paralytic: Succinylcholine Laryngoscope: Samuel Size: 3 ET Tube Size: 7.5 Tube Secured Depth (cm): 22 Tube Secured Location: teeth Tube Placement Confirmation: visualized tube passing t Patient Tolerated Procedure: well Intubation Complications: none Additional Comments: To position was 1 cm above the leslye. It was retracted 2 cm. ED Medical Decision Making - Lab Data Result diagrams: 12/02/19 13:30 12/02/19 13:30 Laboratory Results - last 24 hr 12/02/19 12/02/19 12/02/19 13:11 13:30 13:30 WBC 1.7 L* RBC 3.36 L Hgb 10.5 Hct 33.7 MCV 100 H MCH 31 MCHC 31 RDW 16.9 H Plt Count 84 L Lymph % (Auto) Aircraft Design Engineer [place] % (Auto) Aircraft Design Engineer Eos % (Auto) Aircraft Design Engineer Baso % (Auto) Aircraft Design Engineer Lymph # Aircraft Design Engineer [place] # Aircraft Design Engineer Eos # Aircraft Design Engineer Baso # Aircraft Design Engineer Seg Neutrophils % Aircraft Design Engineer Seg Neutrophils # Aircraft Design Engineer APTT Sodium Potassium Chloride Carbon Dioxide Anion Gap BUN Creatinine Estimated GFR BUN/Creatinine Ratio Glucose POC Glucose < 40 L Lactic Acid 3.60 H* Calcium Magnesium Total Bilirubin Direct Bilirubin Indirect Bilirubin AST ALT Alkaline Phosphatase Total Creatine Kinase CK-MB (CK-2) CK-MB (CK-2) Rel Index Troponin T NT-Pro-B Natriuret Pep Total Protein Albumin Albumin/Globulin Ratio Lipase 12/02/19 12/02/19 12/02/19 13:30 13:30 13:30 WBC RBC Hgb Hct MCV MCH MCHC RDW Plt Count Lymph % (Auto) [place] % (Auto) Eos % (Auto) Baso % (Auto) Lymph # [place] # Eos # Baso # Seg Neutrophils % Seg Neutrophils # APTT 57.3 H Sodium 127 L Potassium 3.6 Chloride 100.0 Carbon Dioxide 13 L Anion Gap 18 BUN 35 H Creatinine 1.6 H Estimated GFR 40 BUN/Creatinine Ratio 22 Glucose 185 H POC Glucose Lactic Acid Calcium 6.0 L Magnesium 1.40 L Total Bilirubin 0.80 Direct Bilirubin 0.5 H Indirect Bilirubin 0.3 AST 92 H ALT 28 Alkaline Phosphatase 68 Total Creatine Kinase 1520 H CK-MB (CK-2) 5.4 H CK-MB (CK-2) Rel Index 0.3 Troponin T < 0.010 NT-Pro-B Natriuret Pep 44106 H Total Protein 3.6 L Albumin 1.1 L Albumin/Globulin Ratio 0.4 Lipase 4 L 12/02/19 13:31 WBC RBC Hgb Hct MCV MCH MCHC RDW Plt Count Lymph % (Auto) [place] % (Auto) Eos % (Auto) Baso % (Auto) Lymph # [place] # Eos # Baso # Seg Neutrophils % Seg Neutrophils # APTT Sodium Potassium Chloride Carbon Dioxide Anion Gap BUN Creatinine Estimated GFR BUN/Creatinine Ratio Glucose POC Glucose < 40 L Lactic Acid Calcium Magnesium Total Bilirubin Direct Bilirubin Indirect Bilirubin AST ALT Alkaline Phosphatase Total Creatine Kinase CK-MB (CK-2) CK-MB (CK-2) Rel Index Troponin T NT-Pro-B Natriuret Pep Total Protein Albumin Albumin/Globulin Ratio Lipase - EKG Data -: EKG Interpreted by Me EKG shows normal: sinus rhythm Rate: tachycardia - EKG Data Interpretation: nonspecific ST-T wave yosi - Radiology Data Radiology results: image reviewed I have looked at the patient's CT of the abdomen and pelvis. She has quite a bit of air in her panniculus. I discussed the CT with Dr. Watts. He did not see any free air in the abdomen or any jeremiah anterior peritoneal inflammatory process. Critical Care Time: Yes Critical care time in (mins) excluding proc time.: 110 Critical care attestation.: If time is entered above; I have spent that time in minutes in the direct care of this critically ill patient, excluding procedure time. ED Disposition Clinical Impression: Septic shock, Hypoglycemia, Intra-abdominal infection, Hyponatremia, Acute renal injury Neutropenia Qualifiers: Neutropenia type: unspecified Qualified Code(s): D70.9 - Neutropenia, unspecified Disposition: DC/TX-70 ANOTHER TYPE HLTHCARE Is pt being admited?: No Does the pt Need Aspirin: No Condition: Stable Referrals: PRIMARY CARE, [Primary Care Provider] - 3-5 Days Time of Disposition: 15:52
[2019-12-02] MEDS ORDERED: metroNIDAZOLE/NS 500 MG/100 ML 500 MG/100 ML BAG IV ONE (14:22)
[2019-12-02] MEDS ORDERED: ACETAMINOPHEN 650 MG RECT SUPP PR ONE ×2 (14:28→14:39)
[2019-12-02] MEDS: fentaNYL 100 MCG/2 ML INJ IV PRN ×2 (14:31→14:50)
--- NOTE | 2019-12-02 14:37 | History and Physical Report ---
History of Present Illness Chief complaint: Unresponsive History of present illness: 59-year-old female with HTN, GERD, OA, asthma,WILVER/Obesity Hypoventilation S/P Gastric Sleeve, Cardiomyopathy S/P Pacemaker Placement, OA presents to ED for evaluation. The patient is intubated and sedated and on ventilatory support at time my evaluation and is unable to provide history. Patient history provided by the daughter who is at bedside during my exam and interview as well as the patient's son. As per daughter the patient was seen and evaluated by her surgeon on Thursday and underwent an outpatient procedure and was discharged home without incident and in her usual state of health. Patient son reports that his mother was in her usual state of health on the evening prior to presentation to [facility]. Patient son states that his mother reported "my body just feels weak and tired"; however the patient was ambulatory and in her usual state of health. Patient daughter reports that she became concerned today after carley cing a telephone call to her mother who sounded confused. EMS was notified and upon arrival the patient was found to be lethargic and in distress. The patient was transported to [facility] for further evaluation and care. Patient seen and evaluated in the emergency department. Lab and imaging studies reviewed. Patient was found to have severe sepsis complicated by septic shock and was initiated on IV pressor support and is accordance with sepsis protocol. The patient was also found to have difficulty protecting her airway and was subsequently intubated and placed on ventilatory support. The patient was also found to have lactic acidosis, acute kidney injury, encephalopathy, and hyponatremia. Advanced care planning conducted in the emergency department. Patient admitted to ICU. Patient found to have poor prognosis and found to be in the early stages of multiple organ system failure. Patient prognosis discussed with family who requests transfer to [facility] for evaluation by her surgeon. Due to patient critical status and advanced surgical needpatient needs her unable to be provided by the surgical team at [facility]. Patient transfer arranged to [facility]. An air ambulance was initially requested. Current weather conditions prevent use of her ambulance. ACLS ambulance subsequently requested and patient accepted by surgical team at [facility]. 60 minutes critical care time dedicated to patient care. Additional 60 minutes critical care time dedicated to bedside patient care. Advanced care planning conducted in ED. Past History Past Medical History: arthritis, GERD, hypertension, other (See HPI) Past Surgical History: bowel surgery Social history: . denies: smoking, alcohol abuse, prescription drug abuse Family history: diabetes, hypertension Medications and Allergies Allergies Allergy/AdvReac Type Severity Reaction Status Date / Time No Known Allergies Allergy Unverified 03/16/18 11:09 Home Medications Medication Instructions Recorded Confirmed Last Taken Type Budesonide/Formoterol Fumarate 2 puff INHALATION BID 03/26/18 04/09/18 03/26/18 History [Symbicort 160-4.5 Mcg Inhaler] Bupropion HCl [Wellbutrin XL] 300 mg PO QAM 03/26/18 04/09/18 03/28/18 History Gabapentin 400 mg PO TID 03/26/18 04/09/18 03/29/18 History LORazepam [Ativan] 1 mg PO BID PRN 03/26/18 04/09/18 03/29/18 History Linaclotide [Linzess] 145 mcg PO QAM 03/26/18 04/09/18 03/29/18 History Dexlansoprazole (Cecilia) [Dexilant 60 mg PO QAM 03/30/18 04/09/18 03/28/18 History (Cecilia)] HYDROcodone/APAP 7.5-325 [[place] 1 each PO Q12H PRN 04/07/18 04/09/18 Unknown History 7.5/325] Active Meds: Active Medications Fentanyl (Sublimaze) 50 mcg IV Q10MIN PRN PRN Reason: ANALGESIA Last Admin: 12/02/19 14:31 Dose: 50 mcg Documented by: Hydrophilic Ointment (Vaseline Lip Therapy) 1 applic TP Q2HR PRN PRN Reason: Dry Lips Hydrophilic Ointment (Vaseline Lip Therapy) 1 applic TP Q2HR PRN PRN Reason: Dry Lips Vancomycin HCl 1,250 mg/ (Sodium Chloride) 275 mls @ 137.5 mls/hr IV ONCE ONE Stop: 12/02/19 15:44 Fentanyl Citrate (Fentanyl Drip Premix) 2,000 mcg in 100 mls @ 3.402 mls/hr IV TITR JULIETTE; Protocol Last Admin: 12/02/19 14:30 Dose: 1 mcg/kg/hr, 3.402 mls/hr Documented by: Metronidazole (Flagyl 500 Mg/100 Ml) 500 mg in 100 mls @ 200 mls/hr IV ONCE ONE; Protocol Stop: 12/02/19 14:51 Multi-Ingred Cream/Lotion/Oil/Oint (Artificial Tears Ophth Oint) 1 applic OU Q4HR PRN PRN Reason: Dry Eye(s) Multi-Ingred Cream/Lotion/Oil/Oint (Artificial Tears Ophth Oint) 1 applic OU Q4HR PRN PRN Reason: Dry Eye(s) Review of Systems ROS unobtainable: due to mental status Exam - Constitutional Vitals: Temp Pulse Resp BP Pulse Ox 101.6 F H 131 H 20 95/56 100 12/02/19 13:26 12/02/19 14:00 12/02/19 13:26 12/02/19 14:00 12/02/19 14:00 General appearance: Present: severe distress - EENT Eyes: Present: miosis - Neck Neck: Present: supple, normal ROM - Respiratory Respiratory effort: labored Respiratory: bilateral: diminished, rhonchi - Cardiovascular Rhythm: other (Tachycardia) Heart Sounds: Present: S1 & S2. Absent: rub, click - Extremities Extremities: pulses symmetrical, No edema Peripheral Pulses: abnormal (Capillary refill greater than 3.5 seconds) - Abdominal General gastrointestinal: Present: soft, non-tender, non-distended, other (Healed midline incision, left upper quadrant dressing in place which is saturated with bilious drainage.) - Integumentary Integumentary: Present: clear, dry, clammy, pale, decreased turgor - Musculoskeletal Musculoskeletal: generalized weakness - Psychiatric Psychiatric: no appropriate mood/affect, no intact judgment & insight, no memory intact - Neurologic Neurologic: CNII-XII intact, no focal deficits, moves all extremities, no gait normal Results - Labs CBC & Chem 7: 12/02/19 13:30 12/02/19 13:30 Labs: Abnormal lab results 12/02/19 12/02/19 12/02/19 Range/Units 13:11 13:30 13:30 WBC 1.7 L* (4.5-11.0) K/mm3 RBC 3.36 L (3.65-5.03) M/mm3 MCV 100 H (79-97) fl RDW 16.9 H (13.2-15.2) % Plt Count 84 L (140-440) K/mm3 APTT (24.2-36.6) Sec. Sodium (137-145) mmol/L Carbon Dioxide (22-30) mmol/L BUN (7-17) mg/dL Creatinine (0.7-1.2) mg/dL Glucose (65-100) mg/dL POC Glucose < 40 L (70-105) Lactic Acid 3.60 H* (0.7-2.0) mmol/L Calcium (8.4-10.2) mg/dL Magnesium (1.7-2.3) mg/dL Direct Bilirubin (0-0.2) mg/dL AST (5-40) units/L Total Creatine Kinase (30-135) units/L CK-MB (CK-2) (0.0-4.0) ng/mL NT-Pro-B Natriuret Pep (0-900) pg/mL Total Protein (6.3-8.2) g/dL Albumin (3.9-5) g/dL Lipase (13-60) units/L 12/02/19 12/02/19 12/02/19 Range/Units 13:30 13:30 13:31 WBC (4.5-11.0) K/mm3 RBC (3.65-5.03) M/mm3 MCV (79-97) fl RDW (13.2-15.2) % Plt Count (140-440) K/mm3 APTT 57.3 H (24.2-36.6) Sec. Sodium 127 L (137-145) mmol/L Carbon Dioxide 13 L (22-30) mmol/L BUN 35 H (7-17) mg/dL Creatinine 1.6 H (0.7-1.2) mg/dL Glucose 185 H (65-100) mg/dL POC Glucose < 40 L (70-105) Lactic Acid (0.7-2.0) mmol/L Calcium 6.0 L (8.4-10.2) mg/dL Magnesium 1.40 L (1.7-2.3) mg/dL Direct Bilirubin 0.5 H (0-0.2) mg/dL AST 92 H (5-40) units/L Total Creatine Kinase 1520 H (30-135) units/L CK-MB (CK-2) 5.4 H (0.0-4.0) ng/mL NT-Pro-B Natriuret Pep 91964 H (0-900) pg/mL Total Protein 3.6 L (6.3-8.2) g/dL Albumin 1.1 L (3.9-5) g/dL Lipase 4 L (13-60) units/L Assessment and Plan - Patient Problems (1) Septic shock Current Visit: Yes Status: Acute Plan to address problem: Admit to ICU: Sepsis protocol: IV fluid resuscitation therapy, CBC, CMP, IV antibiotic therapy, CT scan abdomen and pelvis, chest x-ray, urinalysis, IV pressor support with Levophed and dopamine, titrate pressors to attain mean arterial pressure greater than or equal to 65, monitor urine output every shift, monitor fluid balance. The high probability of a clinically significant, sudden or life threatening deterioration of the [cardiac, renal, pulmonary, neuro, endocrine] system(s) required my full and direct attention, intervention and personal management. The aggregate critical care time was [120] minutes. This time is in addition to time spent performing reported procedures but includes the following: [x] Data Review and interpretation [x] Patient assessment and monitoring of vital signs [x] Documentation [x] Medication orders and management (2) Acute kidney injury Current Visit: Yes Status: Acute Plan to address problem: IV fluid resuscitation therapy, BMP, repeat BMP in a.m., monitor urine output every shift, avoid nephrotoxic agents. (3) Acute hypoxemic respiratory failure Current Visit: Yes Status: Acute Plan to address problem: Patient intubated and placed on ventilatory support: Wean vent as tolerated, daily ABG, pulse oximetry, chest x-ray, nebulizer therapy, daily spontaneous breathing trials, daily sedation holiday. (4) Metabolic acidosis Current Visit: Yes Status: Acute Plan to address problem: IV fluid resuscitation therapy, serial lactic acid level, IV bicarbonate therapy, repeat BMP, treat sepsis. (5) Hyponatremia Current Visit: Yes Status: Acute Plan to address problem: IV fluid resuscitation therapy, BMP, repeat BMP in a.m. (6) Hypoglycemia Current Visit: Yes Status: Acute Plan to address problem: We will treat patient with dextrose therapy, will monitor serum glucose as clinically indicated to maintain serum glucose above 125. (7) DVT prophylaxis Current Visit: No Status: Acute Plan to address problem: SCD to bilateral lower extremities while in bed, prophylactic heparin as per surgical team. (8) Advance care planning Current Visit: Yes Status: Acute Plan to address problem: Patient is full code, disease education conducted. Patient has poor prognosis and is in the early stages of multiorgan system failure. Poor prognosis disc ussed with family risks and benefits of surgical intervention discussed with family. Patient family at bedside during exam and interview. Patient family acknowledges understanding and agreement with care plan. Patient is pending transfer to [facility] for surgical reevaluation. +30 minutes.
[2019-12-02 14:46] LABS: Eosinophils % (Manual) 0 % (0.0-4.3); Myelocytes # (Manual) 0.2 K/mm3; Total Cells Counted 100
[2019-12-02 14:47] LABS: Anisocytosis 1+; Toxic Vacuolation 2+
[2019-12-02 14:49] LABS: Platelet Estimate Consistent w Auto
[2019-12-02 14:55] LABS: Bacteria,Urine 1+ /HPF (Negative); Bilirubin,Urine NEG (Negative); Blood,Urine LG (Negative); Calcium Oxalate Crystals,Urine FEW; Color,Urine Amber (Yellow); Mucus,Urine FEW /HPF
[2019-12-02] MEDS ORDERED: fentaNYL DRIP Premix 2,000 MCG/100 ML BAG IV SCH (15:00)
[2019-12-02] MEDS ORDERED: metroNIDAZOLE/NS 500 MG/100 ML 500 MG/100 ML BAG IV SCH (15:01)
--- NOTE | 2019-12-02 15:04 | XRay Report ---
CHEST 1 VIEW INDICATION: MAIN: hypotension / ETT PLACEMENT. COMPARISON: 05/06/2018 FINDINGS: Support devices: The endotracheal tube terminates within 1 cm above the leslye. Recommend retraction by 2 to 3 cm. The nasogastric tube terminates in the distal esophagus. Recommend advancement by at le ast 10 cm. Heart: Within normal limits. Lungs/Pleura: There is segmental atelectasis or developing infiltrate in the left lower lobe. The lef t upper lung and right lung are clear. No pneumothorax. Additional findings: None. IMPRESSION: Lines and tubes as described above. Left lower lobe opacity most consistent with segmental atelectasis. Signer Name: Kunal Watts Jr, MD Signed: 12/02/2019 2:59 PM Workstation Name: [id number]
[2019-12-02] MEDS ORDERED: SODIUM BICARB 8.4% 50 MEQ/50 ML SYRINGE IV ONE ×3 (15:38→16:43)
--- NOTE | 2019-12-02 15:41 | Cat Scan Report ---
CT ABDOMEN AND PELVIS WITHOUT CONTRAST HISTORY: MAIN: abd pain PT UNSPONSIVE, CRITICAL, UNABLE TO ADD ADDITIONAL SICE BEGINNING OF SCAN. COMPARISON: 04/25/2019 TECHNIQUE: Helical CT images of the abdomen and pelvis were obtained without administration of intrav enous contrast. Sagittal and coronal reformatted images were reviewed. All CT scans at this location are performed using CT dose reduction for ALARA by means of automated exposure control. FINDINGS: Abdomen/pelvis: Images in the mid abdomen are limited secondary to lumbar spine hardware streak artif act. The liver, biliary system, pancreas, spleen, kidneys and adrenal glands are unremarkable. Gastric sleeve surgical changes are suspected. Surgical suture line is also noted in the mid small xiang wel in the left abdomen. Bowel loops are fluid-filled but normal caliber. Enteritis could be consider ed. No focal inflammation, free air or free fluid is appreciated. The appendix is not confidently aren ntified. The bladder is empty and contains a Hernandez catheter. Hysterectomy changes are suspected. There is a small amount of subcutaneous gas in the left anterior abdominal soft tissues which is of u ncertain etiology. Lungs/bones: Bibasilar opacities are identified which probably represent atelectatic changes. Heart size is normal. Lower lumbar posterior fusion changes are identified. No acute bony abnormality is ap preciated. A nasogastric tube appears to terminate in the distal esophagus. IMPRESSION: Bibasilar atelectatic changes. Fluid-filled bowel loops with no evidence for obstruction. Consider an enteritis. Please note the diana ogastric tube terminates in the distal esophagus. Advancement is recommended. Small amount of subcutaneous gas in the left anterior abdominal wall of uncertain significance. Consi pippa a cellulitis. Signer Name: Kunal Watts Jr, MD Signed: 12/02/2019 3:36 PM Workstation Name: [id number]
--- NOTE | 2019-12-02 15:42 | Cat Scan Report ---
CT BRAIN: 12/02/2019 INDICATION / CLINICAL INFORMATION: MAIN: ams UNRESPONSIVE. COMPARISON: None available. FINDINGS: BRAIN/INTRACRANIAL STRUCTURES: Unenhanced CT images of the brain demonstrate no evidence of acute int racranial abnormality. Ventricles and sulci are normal in size and shape. There is no evidence of hemorrhage or mass. There are no abnormal extra-axial fluid collections. EXTRACRANIAL STRUCTURES: Unremarkable. Incidental note is made of a nasogastric tube which appears to be coiled in the posterior oral and n asopharynx. It should be noted that this exam was obtained at 1504 hours. IMPRESSION: 1. No evidence of acute intracranial abnormality. 2. Coiled nasogastric tube in posterior nasopharynx. All CT scans at this location are performed using dose reduction to ALARA by means of automated expos ure control. Signer Name: Michi Cedeno MD Signed: 12/02/2019 3:38 PM Workstation Name: [id number]
[2019-12-02] MEDS ORDERED: NORepinephrine/NS 4 MG-250 ML 4 MG/250 ML BAG IV SCH (16:00)
[2019-12-02] MEDS ORDERED: DOPamine/D5W 800 MG/250 ML 800 MG/250 ML BAG IV ONE ×2 (16:08→16:32)
[2019-12-02 16:14] LABS: ABG Methemoglobin 0.1 % (0.0-1.5); ABG Oxygen Saturation 92.6 % (95.0-99.0); ABG PCO2 21.7 mm Hg; ABG PH 7.36 pH Units (7.350-7.450)
[2019-12-02 16:19] LABS: ABG PO2 303.4 mm Hg (80.0-90.0)
[2019-12-02 16:31] VITALS: BP 106/57
[2019-12-02] MEDS ORDERED: CEFEPIME/NS 2 GM/100 ML 2 GM/100 ML BAG IV SCH (17:00)
[2019-12-02] MEDS ORDERED: KETAMINE 500 MG/5 ML VIAL MDV ONE (21:00)
[2019-12-02] MEDS ORDERED: SUCCINYLCHOLINE CHLORIDE 200 MG/10 ML INJ MDV ONE (21:00)
== END 2019-12-02 17:51 | disposition other institution (70) ==
LOC: ED 12:38
DX: R65.21 Severe sepsis with septic shock (principal); A09 Infectious gastroenteritis and colitis, unspecified; E87.1 Hypo-osmolality and hyponatremia; N17.9 Acute kidney failure, unspecified; R41.82 Altered mental status, unspecified; I11.0 Hypertensive heart disease with heart failure; I50.9 Heart failure, unspecified; K21.9 Gastro-esophageal reflux disease without esophagitis; M19.90 Unspecified osteoarthritis, unspecified site; J45.909 Unspecified asthma, uncomplicated; R10.84 Generalized abdominal pain
CPT/HCPCS: 31500; 36415; 36556; 70450; 71045; 74176; 80048; 80076; 81001; 82140; 82550; 82553; 82803; 82962; 83690; 83735; 83880; 84484; 85007; 85025; 85730; 87040; 87070; 87076; 87186; 87205; 93005; 93010; 96365; 96367; 96368; 96375; 99291; 99292; J0171; J0330; J0692; J1265; J3010; J3370; J7030; J7050; 94002